=== PATIENT | female | born 1990 | race Caucasian/White ===

== ENCOUNTER 2018-07-06 04:59 | Emergency (ER) | payer MEDICARE ==
[~2018-07-06] VITALS: Ht 160 cm; Wt 66.2 kg
[~2018-07-06 04:59] MED LIST: AMOXICILLIN875 MG PO; BACLOFEN10 MG PO; DILAUDID2 MG PO; DOXYCYCLINE HY100 MG PO; DULCOLAX5 MG PO; FERROUS SULFAT325 MG PO; GABAPENTIN300 MG PO; GUAIATUSSIN AC10 ML PO; IBUPROFEN800 MG PO; KEFLEX500 MG PO; MULTI VITAMIN1 EACH PO; NORCO 5-325 TA1 EACH PO; PRENATAL TABLE1 EAC1 PO; PROAIR HFA8.5 GM IH; VICODIN 5-3001 EACH PO; ZITHROMAX250 MG PO; ZOFRAN ODT4 MG PO; ZOFRAN ODT4 MG SL; ZOLPIDEM TARTRAT5 MG PO
[2018-07-06] MEDS ORDERED: GABAPENTIN600 MG PO (05:06)
[2018-07-06] MEDS ORDERED: TRAZODONE HCL50 MG PO (05:06)
[2018-07-06] MEDS ORDERED: CYMBALTA60 MG PO (05:06)
[2018-07-06] MEDS ORDERED: BACLOFEN10 MG PO (05:07)
== END 2018-07-06 09:57 | disposition short-term general hospital (02) ==
LOC: ED 04:59
DX: D49.2 Neoplasm of unspecified behavior of bone, soft tissue, and skin (principal); G83.81 Brown-Sequard syndrome; Z88.2 Allergy status to sulfonamides; Z79.899 Other long term (current) drug therapy
CPT/HCPCS: 71045; 80053; 81001; 83605; 85025; 87040; 96374; 96375; 99284-25; J1170; J2060; J2405; J7030

== ENCOUNTER 2019-06-02 09:49 | Emergency (ER) | payer MEDICARE, OTHER ==
[~2019-06-02] VITALS: Ht 160 cm; Wt 79.4 kg
[~2019-06-02 09:49] MED LIST changes: +CYMBALTA60 MG PO; +GABAPENTIN600 MG PO; +TRAZODONE HCL50 MG PO
--- OUTSIDE RECORDS SUMMARY | 2019-06-02 09:52 | XMS ---
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 No recent Security Events currently on file CRITERIA MET - PDMP CARE PROVIDERS PRINCESS GRAVES [facility] Current MARIBELL PHONE: Unknown MARBIN ALEXANDRA Nurse Practitioner: Family Current PHONE: Unknown CHRISTIANO MARTINS Current PHONE: [phone] Kya Shay [facility] [employer] Swager Current PHONE: [phone] TIM PINTO Primary Care [facility] PHONE: Unknown PRINCESS GRAVES Primary Care Current MARIBELL GRAVES PHONE: [phone] MADHAVI MONTANEZ Primary Care Current PHONE: Unknown MELANI LEAHY [facility] Mental Health Provider 01/26/2016-10/16/2016 [facility] PHONE: Unknown Melani Leahy Mem Mental Health Provider 05/09/2017-Current [facility] PHONE: Unknown PRINCESS Primary Care Current MARIBELL-BELLI PHONE: [phone] [facility] Primary Care 01/24/2016-[facility] Andrew MARIELA MILLARD PHONE: [phone] MELANI LEAHY Primary Care 10/16/2016-Cassandra NEAL PHONE: [phone] [facility] Primary Care 01/24/2016-[facility] Andrew ROCHA PHONE: [phone] Care Guidelines exist for the following facilities: [facility] ( 01/13/2019 ) Adriana VISIT COUNT (12 MO.) 1 [facility] 2 JOAQUÍN Coats TOTAL 3 NOTE: Visits indicate total known visits. ED/UCC VISIT TRACKING (12 MO.) 06/02/2019 09:50 JO[place]QU[facility]N [place]line [place] TYPE: Emergency COMPLAINT: - VOMITING, HEADACHE 10/01/2018 12:35 [facility] TYPE: Emergency DIAGNOSES: 90699. MRI 75343. Neoplasm of unsp behavior of bone, soft tissue, and skin 37343. Oth symptoms and signs involving the musculoskeletal system 67144. Abnormal reflex 07/06/2018 05:00 [facility]QU[facility] [place] TYPE: Emergency COMPLAINT: - R LEG NUMBNESS/JOINT PAIN DIAGNOSES: - Neoplasm of unsp behavior of bone, soft tissue, and skin - Anesthesia of skin - Allergy status to sulfonamides status - Other intermission coordinator (current) drug therapy - Brown-Sequard syndrome INPATIENT VISIT TRACKING (12 MO.) 10/08/2018 12:39 Tim Newby [place] TYPE: Inpatient Rehab DIAGNOSES: - Neoplasm of unsp behavior of bone, soft tissue, and skin - Abnormal reflex - Oth symptoms and signs involving the musculoskeletal system - Oth problems related to psychosocial circumstances - Other disturbances of skin sensation - Malignant neoplasm of spinal cord - Neoplm of unsp behav of endo glands and oth prt nervous sys - Other reduced mobility 10/01/2018 12:35 [facility] TYPE: Neuro Surgery DIAGNOSES: 96228. Oth symptoms and signs involving the musculoskeletal system . Neoplasm of unsp behavior of bone, soft tissue, and skin . Abnormal reflex 07/12/2018 17:40 Tim Newby [facility] TYPE: Inpatient Rehab DIAGNOSES: - Malignant neoplasm of spinal cord - Oth problems related to psychosocial circumstances - Other reduced mobility - Neurogenic bowel, not elsewhere classified - Spinal Tumor - Other disturbances of skin sensation - Oth symptoms and signs involving the musculoskeletal system - Neoplm of unsp behav of endo glands and oth prt nervous sys - Dorsalgia, unspecified - Neuromuscular dysfunction of bladder, unspecified 07/06/2018 13:24 [facility] TYPE: Neuro Surgery DIAGNOSES: 25160. Thoracic Spine Tumor 71389. Neoplasm of unsp behavior of bone, soft tissue, and skin [id number]
[2019-06-02] MEDS ORDERED: PROMETHAZINE HC25 M1 PO (11:23)
== END 2019-06-02 11:32 | disposition home or self-care (01) ==
LOC: ED 09:49
DX: R11.2 Nausea with vomiting, unspecified (principal); Z88.2 Allergy status to sulfonamides; Z79.899 Other long term (current) drug therapy
CPT/HCPCS: 80053; 85025; 96361; 96374; 96375; 99284-25; J1200; J1885; J2765; J7030

== ENCOUNTER 2019-06-26 08:08 | Inpatient (IN) | payer MEDICARE, OTHER ==
[~2019-06-26] VITALS: Ht 160 cm; Wt 81.8 kg
--- OUTSIDE RECORDS SUMMARY | ~2019-06-26 | XMS | Encounter Summary ---
Demographics + + + | Address | [address] | | | [place] [address] | + + + | Home Phone | | + + + | Preferred Language | Unknown | + + + | Marital Status | Single | + + + | Yazidism Affiliation | NON | + + + | Race | White | + + + | Ethnic Group | Not or | + + + Author + + + | Author | [facility] | + + + | Organization | [facility] | + + + | Address [...] Team Providers + +------+ + | Care Icicle Machine Operator Name | Role | Phone | + +------+ + | Tiff Chapin | PCP | | + +------+ + Reason for Visit + + + | Reason | Comments | + + + | Social Work Notes | | + + + Encounter Details +--------+ + + + + | Date | Type | Department | Care Team | Description | +--------+ + + + + | 09/16/ | Documentati | SOCIAL WORK | Robert, | Social Work Notes | | 2015 | on | AM[address]UL[address]ORY [address] | [place] [address],[place] | | | | | [address] | [address] | | | | | Mailcode: CH[address]A | [facility] [place] | | | | | [place], [place] | [place], [place] | | | | | [address] | [address] | | | | | [phone] | | | +--------+ + + + + Social History + +-------+ +--------+------+ | Tobacco Use | Types | Packs/Day | Years | Date | | | | | Used | | + +-------+ +--------+------+ | Never Smoker | | | | | + +-------+ +--------+------+ + + +---------+ + | Alcohol Use [...] + + documented as of this encounter Plan of Treatment Not on filedocumented as of this encounter Visit Diagnoses Not on filedocumented in this encounter"
--- OUTSIDE RECORDS SUMMARY | ~2019-06-26 | XMS | Encounter Summary ---
Demographics + + + | Address | [address] | | | [place] [address] | + + + | Home Phone | | + + + | Preferred Language | Unknown | + + + | Marital Status | Single | + + + | Gnosticist Affiliation | NON | + + + | Race | White | + + + | Ethnic Group | Not or | + + + Author + + + | Author | [facility] | + + + | Organization | [facility] | + + + | Address | [...] Team Providers + +------+ + | Care Business Management Intern Name | Role | Phone | + [...] | +--------+ + + + + | 06/07/ | Documentati | SOCIAL WORK | Robert, | Social Work Notes | | 2014 | on | AM[address]UL[address]ORY [address] | [place] [address],[place] | | | | | [address] | [address] | | | | | Mailcode: CH6A | [facility] [place] | | | | | [place], [place] | [place], [place] | | | | | [address] | [address] | | | | | [phone] | | | +--------+ + + + [...]
--- OUTSIDE RECORDS SUMMARY | ~2019-06-26 | XMS | Encounter Summary ---
Demographics + + + | Address | [address] | | | [place] [address] | + + + | Home Phone | | + + + | Preferred Language | Unknown | + + + | Marital Status | Single | + + + | Sabianist Affiliation | NON | + + + | Race | White | + + + | Ethnic Group | Not or | + + + Author + + + | Author | [facility] | + + + | Organization | [facility] | + + + | Address | [...] Team Providers + +------+ + | Care Pipe Finishing Supervisor Name | Role | Phone | + +------+ + | No Pcp Per Patient | PCP | Unavailable | + +------+ + Encounter Details +--------+ + + + + | Date | Type | Department | Care Team | Description | +--------+ + + + + | 10/03/ | Procedure | [address] | | | | 2019 | Pass | [address] | | | | | | [place] [facility] | | | | | | Desk Located on the | | | | | | 9th floor | | | | | | [place], [place] | | | | | | [address] | | | +--------+ + + + [...] + + documented as of this encounter Functional Status + + + + | Functional Status | Response | Date of Assessment | + + + + | Because of a physical, mental, or emotional | No | 10/03/2018 | | condition, do you have serious difficulty | | | | doing errands alone such as visiting the | | | | doctor? | | | + + + + + + + + | Cognitive Status | Response | Date of Assessment | + + + + | Because of a physical, mental, or emotional | No | 10/03/2018 | | condition, do you have serious difficulty | | | | concentrating, remembering, or making | | | | decisions? (5 years old or older) | | | + + + + documented as of this encounter Plan of Treatment Not on filedocumented as of this encounter Visit Diagnoses Not on filedocumented in this encounter"
--- OUTSIDE RECORDS SUMMARY | ~2019-06-26 | XMS | Encounter Summary ---
Demographics + + + | Address | [address] | | | [place] [address] | + + + | Home Phone | | + + + | Preferred Language | Unknown | + + + | Marital Status | Single | + + + | Sikh Affiliation | NON | + + + | Race | White | + + + | Ethnic Group | Not or | + + + Author + + + | Author | [facility] | + + + | Organization | [facility] | + + + | Address [...] Team Providers + +------+ + | Care Agitator Operator Name | Role | Phone | + +------+ + | Tiff Chapin | PCP | | + +------+ + Reason for Visit + + + | Reason | Comments | + + + | Medical Records | | | Review | | + + + Encounter Details +--------+ + + + + | Date | Type | Department | Care Team | Description | +--------+ + + + + | 07/15/ | Telephone | Neurosurgery at | Raegan Doss, | Medical Records | | 2015 | | [facility] [address] | [place] [address] | Review | | | | [place] Mailcode: CH[address]N | [place], [place] | | | | | [facility] | [address] | | | | | and [facility], | [phone] | | | | | [facility] | | | | | | Floor [place], [place] | | | | | | [address] | | | | | | [phone] | | | +--------+ + + + [...]
--- OUTSIDE RECORDS SUMMARY | ~2019-06-26 | XMS | Encounter Summary ---
Demographics + + + | Address | [address] | | | [place] [address] | + + + | Home Phone | | + + + | Preferred Language | Unknown | + + + | Marital Status | Single | + + + | Episcopalian Affiliation | NON | + + + | Race | White | + + + | Ethnic Group | Not or | + + + Author + + + | Author | [facility] | + + + | Organization | [facility] | + + + | Address | [...] Team Providers + +------+ + | Care Analysis Analyst Name | Role | Phone | + +------+ + | Tiff ChapinP | PCP | | + +------+ + Reason for Referral Occupational Therapy (Routine) +--------+--------+ + + + + | Status | Reason | Specialty | Diagnoses / | Referred By | Referred To | | | | | Procedures | Contact | Contact | +--------+--------+ + + + + | Closed | | | Diagnoses | Romario, | | | | | | Spinal cord | Raegan Nieves | | | | | | tumor | [address] | | | | | | Procedures | [facility]IS EDUARDO Tadeo | | | | | | OCCUPATIONAL | [facility], | | | | | | THERAPY | [place] | | | | | | REFERRAL | [address] | | | | | | | Phone: | | | | | | | [phone] | | | | | | | Fax: | | | | | | | [phone] | | +--------+--------+ + + + + Physical Therapy (Routine) +--------+--------+ + + + + | Status | Reason | Specialty | Diagnoses / | Referred By | Referred To | | | | | Procedures | Contact | Contact | +--------+--------+ + + + + | Closed | | | Diagnoses | Romario, | | | | | | Spinal cord | Raegan Nieves, | | | | | | tumor | [address] | | | | | | Procedures | LUIS EDUARDO Tadeo | | | | | | PHYSICAL | [place], | | | | | | THERAPY | [place] | | | | | | REFERRAL | [address] | | | | | | | Phone: | | | | | | | [phone] | | | | | | | Fax: | | | | | | | [phone] | | +--------+--------+ + + + + Reason for Visit + + + | Reason | Comments | + + + | Incontinence | | + + + | Paralysis | | + + + AUTH/CERT +--------+--------+ + + + + | Status | Reason | Specialty | Diagnoses / | Referred By | Referred To | | | | | Procedures | Contact | Contact | +--------+--------+ + + + + | | | | | | | +--------+--------+ + + + + Encounter Details +--------+ + + + + | Date | Type | Department | Care Team | Description | +--------+ + + + + | 09/08/ | Hospital | [facility] [address] | Rajinder Luis MD | | | 2016 - | Encounter | [address] | [address] | | | | | [id number] [facility] | [place], [place] | | | 09/14/ | | [facility], | [address] | | | 2015 | | [place] [address] | [phone] | | | | | [phone] | | | +--------+ + + + [...] + + + | Blood Pressure | 118/61 | 09/15/2015 8:00 AM | | | | | PST | | + + + + + | Pulse | 39 | 09/15/2015 8:00 AM | | | | | PST | | + + + + + | Temperature | 36.8 C (98.2 F) | 09/15/2015 8:00 AM | | | | | PST | | + + + + + | Respiratory Rate | 16 | 09/15/2015 3:04 AM | | | | | PST | | + + + + + | Oxygen Saturation | 97% | 09/15/2015 8:00 AM | | | | | PST | | + + + + + | Inhaled Oxygen | - | - | | | Concentration | | | | + + + + + | Weight | 85.6 kg (188 lb 11.4 | 09/11/2015 12:23 PM | | | | oz) | PST | | + + + + + | Height | 160 cm (5' 3") | 09/11/2015 12:23 PM | | | | | PST | | + + + + + | Body Mass Index | 33.43 | 09/11/2015 12:23 PM | | | | | PST | | + + + + + documented in this encounter Discharge Summaries Raegan Doss PA-C - 09/15/2015 11:40 AM PSTFormatting of this note might be different f rom the original. NEUROSURGERY DISCHARGE SUMMARY: Patient: Matt Fagan Admission Date: 09/09/2015 Discharge Date: 09/15/2015 Attending Physician: Rajinder Luis MD PCP: PATRIC Todd Service: 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 Additional Diagnoses: Acute diaphoresis Urinary Incontinence Past Medical History: Other and unspecified symptoms and signs invol* Procedures 09/09/15 1. Right T9, T10 hemilaminectomies for resection of intramedullary spinal cord tumor. 2. Use of high-powered intraoperative microscope. 3. Intraoperative neuromonitoring using motor-evoked potentials. Brief Hospital Course Matt Fagan is a 24-year-old female, with a history of thoracic ganglioneurocytoma (W HO grade 1), or potentially a pendemoma-like tumor, who presented in transfer from an [facility] hospital after she woke up with lower extremity weakness and urinary incontinence. 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 Luis here at [facility]. She has residual right lower extremity w eakness, but was gradually improving with her physical exam. However, given her new acute di paresis, she underwent imaging at an outside hospital which demonstrated tumor progression a nd potential syrinx. Given her clinical history and imaging findings, she was indicated for emergent laminectomy and decompression. Matt Fagan was admitted urgently on 09/09/2015 for a Right T9, T10 hemilaminectomies f or resection of the intramedullary spinal cord tumor . The inpatient stay related to this p rocedure(s) took an uncomplicated perioperative course and the patient was followed closely by the attending providers, resident providers, and medical/nursing staff. Post operatively, the patient was admitted to the [facility] for ongoing convalescent care. She regained full stren gth in her bilateral legs except for some slight weakness in her R hip flexor. She unfortuna tely lost further sensation from T8 down and most proprioception. She was able to tell when she needed to urinate, but did require straight cathing. Pathology resulted as Re-current/re sidual low-grade glioneuronal neoplasm morphologically similar to the previous resection paul or. No high grade features were demonstrated. Surgical pain was managed with medication. Th e patient made appropriate gains toward activity and functional goals while an inpatient. T he patient worked with our rehabilitation team with recommendation for [facility] upon discharge. W kragi on the hospital floor, the patient tolerated oral intake sufficient to maintain nutriti on and hydration. The surgical wound remained clean, dry, and intact without signs concernin g for infection. The patient was felt appropriate for discharge to [facility] ([facility]) on 09/15/2015, a nd the patient and/or family members agree with this course of action. Diet Regular Regular diet- There are no restrictions to your diet. You may eat or drink whatever you pr efer, though healthy food choices are recommended. Activity No activity restrictions Discharge POLST completed No Condition on Discharge Good Destination: Destination: Inpatient Rehab - [facility] Discharge Follow Up - Facility MD to follow Facility MD to follow patient. FOLLOW-UP You have an appointment with Raegan Doss PA-C at 1:30pm on 10/20/15. This will be on the 8t h floor at the [facility] on the [facility] located at [address], [place] [address]. Please call [phone] if you have any questions or concerns befor e your appointment time. PCP:PATRIC Todd When: Please follow-up with your primary care physician as soon a s possible to review new medications and recent interventions Call: Please call and ask for the Neurosurgery Resident on-call if you have any of the following: - Difficulty breathing or unusual shortness of breath - Excessive bleeding, drainage at the operative site - Fevers, chills, increased pain that is not relieved by pain medications - Persistent nausea or vomiting - Severe headaches, dizziness, or visual changes Current Discharge Medication List START taking these medications Details dexamethasone 2 mg oral tablet Starting at 2200hrs on 09/14: Taking 2mg q8h x 3 doses Then take 2mg q12h x 2 doses Then take 2mg x 1 dose on 09/17 at 0900hrs then stop. Qty: 6 tablet, Refills: 0 LORazepam 0.5 mg oral tablet Take 1 tablet by mouth every six hours as needed for anxiety. Indications: ANXIETY Qty: 20 tablet, Refills: 0 scopolamine 1.5 mg (1 mg over 3 days) transdermal patch 3 day Apply 1 patch to skin every s eventy-two hours as needed (nausea). Qty: 1 each, Refills: 0 CONTINUE these medications which have CHANGED or have new prescriptions Details enoxaparin 40 mg/0.4 mL subcutaneous syringe Inject 0.4 mL under the skin (SUBC) once daily in the evening. Qty: 1 mL, Refills: 0 gabapentin 300 mg oral capsule Take 3 capsules by mouth three times daily. Indications: SHIRA ROPATHIC PAIN Qty: 1 capsule, Refills: 0 HYDROmorphone 2 mg oral tablet Take 1-4 tablets by mouth every three hours as needed for mo derate pain. Qty: 120 tablet, Refills: 0 CONTINUE these medications which have NOT CHANGED Details acetaminophen 325 mg oral tablet Take 1-2 tablets by mouth every six hours as needed (pain or fever greater than 38.5 degrees C). baclofen 10 mg oral tablet Take 10mg in the AM, 10mg in the afternoon and 10mg in the eveni ng then 15mg at bedtime. Indications: MUSCLE SPASTICITY OF SPINAL ORIGIN Qty: 135 tablet, Refills: 0 bisacodyl 10 mg rectal suppository Insert 1 suppository rectally once daily as needed for c onstipation (for no BM in past 2 days). Qty: 20 suppository, Refills: 0 bisacodyl EC 5 mg oral tablet,delayed release (DR/EC) Take 1 tablet by mouth once daily. Qty: 60 tablet, Refills: 0 diphenhydrAMINE 25 mg oral capsule Take 1 capsule by mouth every six hours as needed. Qty: 60 capsule, Refills: 0 magnesium citrate oral solution Take 296 mL by mouth once daily as needed. Qty: 296 mL, Refills: 0 multivitamin oral capsule Take 1 capsule by mouth once daily. polyethylene glycol 17 gram/dose oral powder Take 17 g by mouth once daily as needed (if no bowel movement in >2 days). Qty: 119 g, Refills: 1 senna-docusate 8.6-50 mg oral tablet Take 2 tablets by mouth twice daily as needed (for no bowel movement in >2 days). Qty: 15 tablet, Refills: 1 zolpidem 5 mg oral tablet Take 1 tablet by mouth once daily at bedtime as needed. Qty: 20 tablet, Refills: 0 STOP taking these medications diazepam 5 mg oral tablet Comments: Reason for Stopping: hydrOXYzine pamoate 25 mg oral capsule Comments: Reason for Stopping: Wound Care: 1) Keep your incision site clean and dry. 2) It is ok for you to shower and get your surgical incision wet, but do not submerge surg ical incision in hot tub or swimming pool. 3) Please avoid placing creams or ointments directly on the incision even though it may it ch. 4) Your sutures will need to be removed at 2 weeks post-op, on 09/22. Special Instructions/Tests: Neurosurgery will work to arrange a visit with our Physical The rapists specially trained in SCI rehab on the same day as your appointment with Raegan Doss PA-C. Condition On Discharge: Good Vital Signs at discharge as appropriate: BP: 118/61 mmHg (09/15/15 0800) Pulse: 39 (09/15/15 0800) Resp: 16 (0 09/15/15 0304) Weight: 85.6 kg (188 lb 11.4 oz) (09/11/15 1223) Discharge Patient To: [facility] Does patient have a planned readmission: No Discharge Summary Completed?: Yes. 09/15/2015 Discharging Provider: Raegan Doss PA-C Date Completed: 09/15/2015 Time Completed: 11:40 AM Discharging Attending: Rajinder Luis MD [facility] [address] [address] [address] documented in this encounter Progress Notes Raegan Doss PA-C - 09/15/2015 7:47 AM PSTFormatting of this note might be different f rom the original. Neurosurgery Progress Note Hospital Day:6 Author; Raegan Doss PA-C Attending Physician: Rajinder Luis MD Interval Hx: -Pt reports needing to be straight cathed (she can feel a full bladder but is not able to i ndependently void, despite trying every time before straight cathing), but is requesting RN to do this as she has not self cathed in 2 months. -Pt states she did not sleep well last night and has been awake since 4am. She feels anxiou s but thinks this may be related to her increased level of pain. -Pt request re-starting her home Ambien now that she is not on IV pain medications. Last Vitals: BP 126/58 | Pulse 43 | Temp (Src) 36.8 C (98.2 F) (Oral) | RR 16 | Ht 1.6 m (5' 3") | Wt 85.6 kg (188 lb 11.4 oz) | SpO2 96% | BMI 33.44 kg/(m^2) O2 Delivery Device: None (room air) (09/15/15 030) 24 Hour Vital Min/Max: Systolic (24hrs), Av mmHg, Min:104 mmHg, Max:126 mmHgDiastolic (24hrs), Av mmHg, M in:54 mmHg, Max:69 mmHgPulse Min: 41 Max: 46 Temp Min: 36.4 C (97.5 F) Max: 36.8 C (98.2 F) Resp Min: 16 Max: 16 SpO2 Min: 95 % Max: 100 % Intake/Output Summary (Last 24 hours) at 09/15/15 0747 Last data filed at 09/15/15 0304 Gross per 24 hour Intake 1182 ml Output 2950 ml Net -1768 ml Exam: Alert, oriented x3. Speech clear, fluent. Gaze conjugate. Face symmetric. Thoracic incision: flat, dry, no erythema, intact. Wale present. Sensation: LT sensation intact intact above T8. Has sensory present below this level but th is is patchy. Proprioception intact on L great toe. Not intact to R great toe. Motor: Delt Tri Bi WE DI HF KE APF ADF Left 5 5 5 5 5 5 5 5 5 Right 5 5 5 5 5 4+ 5 5 5 Labs: CBC with diff last 72 hours (or 3 results) Recent Labs 09/14/15 0750 09/15/15 0645 WBC 15.21* 17.28* HB 12.3 12.6 HCT 37.9 39.3 PLT 362 368 Chemistries: Last 72 Hours (or 3 results): Recent Labs 09/13/15 1846 09/13/15 2324 09/14/15 1028 GLU 102* 136* 104* [id number] Current Medications: acetaminophen (TYLENOL) tablet 650 mg, 650 mg, oral, Q6H baclofen (LIORESAL) tablet 10 mg, 10 mg, oral, TID baclofen (LIORESAL) tablet 15 mg, 15 mg, oral, HS bisacodyl (DULCOLAX) suppository 10 mg, 10 mg, rectal, DAILY PRN bisacodyl EC (DULCOLAX) tablet 5 mg, 5 mg, oral, DAILY [COMPLETED] dexamethasone (DECADRON) tablet 4 mg, 4 mg, oral, Q6H FOLLOWED BY dexametha sone (DECADRON) tablet 4 mg, 4 mg, oral, Q8H FOLLOWED BY dexamethasone (DECADRON) tablet 2 mg, 2 mg, oral, Q8H FOLLOWED BY [START ON 09/16/2015] dexamethasone (DECADRON) tablet 2 mg, 2 mg, oral, Q12H FOLLOWED BY [START ON 09/18/2015] dexamethasone (DECADRON) tablet 2 mg, 2 mg, oral, DAILY diphenhydrAMINE (BENADRYL) capsule 25 mg, 25 mg, oral, Q4H PRN enoxaparin (LOVENOX) injection 40 mg, 40 mg, subcutaneous, QPM gabapentin (NEURONTIN) capsule 900 mg, 900 mg, oral, TID HYDROmorphone (DILAUDID) tablet 2-8 mg, 2-8 mg, oral, Q3H PRN LORazepam (ATIVAN) tablet 0.5 mg, 0.5 mg, oral, Q6H PRN magnesium citrate liquid 296 mL, 296 mL, oral, DAILY PRN multivitamin (THERA VITAMIN) 1 tablet, 1 tablet, oral, DAILY NaCl 0.9%-KCl 20 mEq/L IV infusion, , intravenous, CONTINUOUS ondansetron (ZOFRAN) injection 4 mg, 4 mg, intravenous, Q12H PRN polyethylene glycol (MIRALAX) powder 34 g, 34 g, oral, BID scopolamine (TRANSDERM-SCOPE) 1.5 mg (1 mg over 3 days) 1 patch, 1 patch, transdermal, Q72H PRN senna-docusate (SENOKOT S) 8.6-50 mg 2 tablet, 2 tablet, oral, BID Impression: 24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 Improvement in BLE strength post-op. Wound healing well. Plan: Neuro: Pain control with APAP, dilaudid PO. Home gabapentin increased from 600mg TID to 900 mg TID on 09/13. Cont home Baclofen 10mg TID and 15mg qHS for muscle spasms. Fast Dex taper to off by 09/16. Lorazepam 0.5mg q6h prn anxiety. Will re-start home Ambien 5mg qHS for sleep. Derm: Benadryl prn itching. Routine wound care. Okay to shower/shampoo daily. [place] to be removed at 2 weeks post-op. CV: BP stable, pt continues with low but stable bradycardia in the 40s; pt continues to be asymptomatic. Will continue to monitor. Pulm: IS, cough/deep breath GI/diet: Regular diet. Scopolamine and ondansetron prn nausea. LBM prior to arrival. Mirala x BID, Senokot S BID, bisacodyl 5mg daily. Mag Citrate available prn. : Daniels removed 09/12. Straight cath if pt is unable to void, BS q4h Musculoskeletal/skin: Routine decubitus ulcer prevention. Appreciate PT/OT involvement. Endo: ISS stopped for controlled CBGs. ID/Heme: Afebrile. Leukocytosis increased to 17 today. Will check a UA as patient reported having one at the OSH prior to transfer. DVT ppx: SCDs while in bed. Lovenox 40mg qHS for DVT ppx. Dispo: Likely DC to [facility] by tomorrow, 09/15, once they have bed availability. Raegan Doss PA-C [facility] [address] [address] [address] dams, PHILIPPE Mena - 09/14/2015 8:57 AM PST Neurosurgery Progress Note Hospital Day:5 Author; Raegan Doss PA-C Attending Physician: Rajinder Luis MD Interval Hx: -Daniels removed yesterday evening. Pt has been unable to independently void since, has been straight cathed instead. Pt is able to feel when her bladder is full. -No BM since admission -Pt reports increased nerve pain in her legs. This has been increasing over the last 2 yves hs, she is requesting to increase her gabapentin. She is currently taking gabapentin 600mg T ID. Last Vitals: BP 107/61 | Pulse 39 | Temp (Src) 36.4 C (97.5 F) (Oral) | RR 16 | Ht 1.6 m (5' 3") | Wt 85.6 kg (188 lb 11.4 oz) | SpO2 96% | BMI 33.44 kg/(m^2) O2 Delivery Device: None (room air) (09/14/15 0330) 24 Hour Vital Min/Max: Systolic (24hrs), Av mmHg, Min:104 mmHg, Max:115 mmHgDiastolic (24hrs), Av mmHg, M in:52 mmHg, Max:62 mmHgPulse Min: 39 Max: 48 Temp Min: 36.4 C (97.5 F) Max: 36.6 C (97.9 F) Resp Min: 16 Max: 16 SpO2 Min: 95 % Max: 97 % Intake/Output Summary (Last 24 hours) at 09/14/15 0857 Last data filed at 09/14/15 0602 Gross per 24 hour Intake 3175 ml Output 1570 ml Net 1605 ml Exam: Alert, oriented x3. Speech clear, fluent. Gaze conjugate. Face symmetric. Thoracic incision: edges approximated well, no erythema, dry, intact. [place] in place. Sensation: LT sensation intact above T8 level. Disrupted below this level, however is able to tell when I am touching bilateral shins and good location of sensation on R foot. Poor se nsation (unable to tell where I am touching) on her L foot. Motor: Tri Bi DI HF KE KF APF ADF Left 5 5 5 5 5 5 5 5 Right 5 5 5 4 5 5 5 5 Proprioception intact on L great toe. Not intact on R great toe. Labs: CBC with diff last 72 hours (or 3 results) Recent Labs 09/14/15 0750 WBC 15.21* HB 12.3 HCT 37.9 PLT 362 Chemistries: Last 72 Hours (or 3 results): Recent Labs 09/13/15 1329 09/13/15 1846 09/13/15 2324 GLU 128* 102* 136* CULT, URINE SCREEN Date Value Ref Range Status 07/12/2015 Negative Negative Final [id number] Current Medications: acetaminophen (TYLENOL) tablet 650 mg, 650 mg, oral, Q6H baclofen (LIORESAL) tablet 10 mg, 10 mg, oral, TID baclofen (LIORESAL) tablet 15 mg, 15 mg, oral, HS bisacodyl (DULCOLAX) suppository 10 mg, 10 mg, rectal, DAILY PRN bisacodyl EC (DULCOLAX) tablet 5 mg, 5 mg, oral, DAILY dexamethasone (DECADRON) tablet 4 mg, 4 mg, oral, Q6H FOLLOWED BY dexamethasone (DECADR ON) tablet 4 mg, 4 mg, oral, Q8H FOLLOWED BY [START ON 09/15/2015] dexamethasone (DECADRON ) tablet 2 mg, 2 mg, oral, Q8H FOLLOWED BY [START ON 09/16/2015] dexamethasone (DECADRON) tablet 2 mg, 2 mg, oral, Q12H FOLLOWED BY [START ON 09/18/2015] dexamethasone (DECADRON) tablet 2 mg, 2 mg, oral, DAILY dextrose 50 % in water IV 25 mL, 25 mL, intravenous, PRN diphenhydrAMINE (BENADRYL) capsule 25 mg, 25 mg, oral, Q4H PRN enoxaparin (LOVENOX) injection 40 mg, 40 mg, subcutaneous, QPM gabapentin (NEURONTIN) capsule 300 mg, 300 mg, oral, ONCE gabapentin (NEURONTIN) capsule 900 mg, 900 mg, oral, TID glucagon (GLUCAGEN) injection 1 mg, 1 mg, intramuscular, PRN glucose chewable tablet 16 g, 16 g, oral, PRN HYDROmorphone (DILAUDID) injection 0.5-2 mg, 0.5-2 mg, intravenous, Q2H PRN HYDROmorphone (DILAUDID) tablet 2-8 mg, 2-8 mg, oral, Q3H PRN insulin lispro (HUMALOG) injection, , subcutaneous, QID LORazepam (ATIVAN) tablet 0.5 mg, 0.5 mg, oral, Q6H PRN multivitamin (THERA VITAMIN) 1 tablet, 1 tablet, oral, DAILY NaCl 0.9%-KCl 20 mEq/L IV infusion, , intravenous, CONTINUOUS ondansetron (ZOFRAN) injection 4 mg, 4 mg, intravenous, Q12H PRN polyethylene glycol (MIRALAX) powder 34 g, 34 g, oral, BID scopolamine (TRANSDERM-SCOPE) 1.5 mg (1 mg over 3 days) 1 patch, 1 patch, transdermal, Q72H PRN senna-docusate (SENOKOT S) 8.6-50 mg 2 tablet, 2 tablet, oral, BID Impression: 24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 Improvement in BLE strength post-op. Plan: Neuro: Pain control with APAP, dilaudid PO. Will increase home gabapentin from 600mg TID to 900mg TID. Cont home Baclofen 10mg TID and 15mg qHS for muscle spasms. Fast Dex taper to of f by 09/16. Lorazepam 0.5mg q6h prn anxiety. Derm: Benadryl prn itching. Routine wound care. Okay to shower/shampoo daily. [place] to be removed at 2 weeks post-op. CV: BP stable, however pt with bradycardia (24hr HR min 41), however pt is asymptomatic. Wi ll continue to monitor. Pulm: IS, cough/deep breath GI/diet: Regular diet. Scopolamine and ondansetron prn nausea. LBM prior to arrival. [place] x BID, Senokot S BID, bisacodyl 5mg daily. Mag Citrate available prn. : Daniels removed 09/12. Straight cath if pt is unable to void, BS q4h Musculoskeletal/skin: Routine decubitus ulcer prevention. Appreciate PT/OT involvement. Endo: CBGs remain reasonable. 0U ISS used last 24 hours. Mild hyperglycemia likely 2/2 ster oid effect. Will plan to stop ISS at [place]. ID/Heme: Afebrile. Leukocytosis at 15 today - possibly d/t steroids. Will cont to follow an d trend. DVT ppx: SCDs while in bed. Lovenox 40mg qHS for DVT ppx. Dispo: Appreciate CM involvement - application pending for ASSUMPTION. Raegan Doss PA-C [facility] [address] [address] [address] [address] [facility] - 09/13/2015 10:26 AM PST Neurosurgery Progress Note Hospital Day:4 Author; Raegan Doss PA-C Attending Physician: Rajinder Luis MD Interval Hx: -No acute events overnight. Pt reports she feels more anxious with this hospital admission because she has many questions regarding her future course of care and is disheartened by th is recent set-back. Last Vitals: BP 102/60 | Pulse 35 | Temp (Src) 36.5 C (97.7 F) (Axillary) | RR 16 | Ht 1.6 m (5' 3") | Wt 85.6 kg (188 lb 11.4 oz) | SpO2 96% | BMI 33.44 kg/(m^2) O2 Delivery Lisha ce: None (room air) (09/13/15 0315) 24 Hour Vital Min/Max: Systolic (24hrs), Av mmHg, Min:102 mmHg, Max:126 mmHgDiastolic (24hrs), Av mmHg, M in:59 mmHg, Max:71 mmHgPulse Min: 35 Max: 46 Temp Min: 36.4 C (97.5 F) Max: 36.7 C (98.1 F) Resp Min: 16 Max: 16 SpO2 Min: 94 % Max: 96 % Intake/Output Summary (Last 24 hours) at 09/13/15 1027 Last data filed at 09/13/15 0856 Gross per 24 hour Intake 1090 ml Output 2350 ml Net -1260 ml Exam: Alert, oriented x3. Speech clear, fluent. Gaze conjugate. Face symmetric. Thoracic incision: flat, no erythema, dry, no fluctuance or swelling. Intact. Wale in pl [place]. Sensation: LT sensation intact above T8, out below. Motor: Delt Tri Bi DI HF KE APF ADF Left 5 5 5 5 5 5 5 5 Right 5 5 5 5 4+ 5 [address], draining clear yellow urine. Labs: [id number] Current Medications: acetaminophen (TYLENOL) tablet 650 mg, 650 mg, oral, Q6H baclofen (LIORESAL) tablet 10 mg, 10 mg, oral, TID baclofen (LIORESAL) tablet 15 mg, 15 mg, oral, HS bisacodyl (DULCOLAX) suppository 10 mg, 10 mg, rectal, DAILY PRN dexamethasone (DECADRON) tablet 4 mg, 4 mg, oral, Q6H dextrose 50 % in water IV 25 mL, 25 mL, intravenous, PRN diphenhydrAMINE (BENADRYL) capsule 25 mg, 25 mg, oral, Q4H PRN enoxaparin (LOVENOX) injection 40 mg, 40 mg, subcutaneous, QPM gabapentin (NEURONTIN) capsule 600 mg, 600 mg, oral, TID glucagon (GLUCAGEN) injection 1 mg, 1 mg, intramuscular, PRN glucose chewable tablet 16 g, 16 g, oral, PRN HYDROmorphone (DILAUDID) injection 0.5-2 mg, 0.5-2 mg, intravenous, Q2H PRN HYDROmorphone (DILAUDID) tablet 2-8 mg, 2-8 mg, oral, Q3H PRN insulin lispro (HUMALOG) injection, , subcutaneous, QID LORazepam (ATIVAN) tablet 0.5 mg, 0.5 mg, oral, Q6H PRN multivitamin (THERA VITAMIN) 1 tablet, 1 tablet, oral, DAILY NaCl 0.9%-KCl 20 mEq/L IV infusion, , intravenous, CONTINUOUS ondansetron (ZOFRAN) injection 4 mg, 4 mg, intravenous, Q12H PRN polyethylene glycol (MIRALAX) powder 34 g, 34 g, oral, TID PRN scopolamine (TRANSDERM-SCOPE) 1.5 mg (1 mg over 3 days) 1 patch, 1 patch, transdermal, Q72H PRN senna-docusate (SENOKOT S) 8.6-50 mg 1 tablet, 1 tablet, oral, BID Impression: 24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 Improvement in BLE strength post-op. Plan: Neuro: Pain control with APAP, dilaudid PO and IV for breakthrough. Cont home gabapentin 60 0mg TID and Baclofen 10mg TID and 15mg qHS for muscle spasms. Fast Dex taper to off by 09/16. Lorazepam 0.5mg q6h prn anxiety. Derm: Benadryl prn itching. Routine wound care. Okay to shower/shampoo daily. [place] to be removed at 2 weeks post-op. CV: BP stable, however pt with bradycardia (24hr HR min 35), however pt is asymptomatic. Wi ll continue to monitor. Pulm: IS, cough/deep breath GI/diet: Regular diet. Scopolamine and ondansetron prn nausea. LBM prior to arrival. Will s chedule Mag Citrate x1 today and schedule Miralax BID and Senokot S BID. : Daniels in place. Will remove once patient is able to ambulate to [facility]. Musculoskeletal/skin: Routine decubitus ulcer prevention. Appreciate PT/OT involvement. Endo: CBGs reasonable. 9U ISS used last 24 hours. Mild hyperglycemia likely 2/2 steroid eff ect. Will plan to stop ISS at [place]. ID/Heme: Afebrile. Will check CBC tomorrow AM. DVT ppx: SCDs while in bed. Lovenox 40mg qHS for DVT ppx. Dispo: Appreciate CM involvement - application pending for ASSUMPTION. Raegan Doss PA-C [facility] [address] [facility] [address] Cesar Cox MD - 12/2015 11:40 AM PST NEUROSURGERY PROGRESS NOTE Hospital Day #: 3 Attending: Rajinder Luis MD Interval Events: - MRI done yesterday - Transferred out of ICU yesterday - Patient has regained 5/5 strength in all extremities, still with numbness - Patient very concerned that her bracelet may have been lost perioperatively, we are curre ntly searching for it. Objective: Last Vitals: BP 113/59 | Pulse 45 | Temp (Src) 36.4 C (97.5 F) (Axillary) | RR 17 | Ht 1.6 m (5' 3") | Wt 85.6 kg (188 lb 11.4 oz) | SpO2 96% | BMI 33.44 kg/(m^2) 24 Hour Vital Min/Max: Systolic (24hrs), Av mmHg, Min:113 mmHg, Max:154 mmHg Diastolic (24hrs), Av mmHg, Min:59 mmHg, Max:97 mmHg Pulse Min: 45 Max: 90 Temp Min: 36.4 C (97.5 F) Max: 36.9 C (98.4 F) Resp Min: 16 Max: 17 SpO2 Min: 92 % Max: 97 % Intake/Output Summary (Last 24 hours) at 09/12/15 1140 Last data filed at 09/12/15 1100 Gross per 24 hour Intake 1515 ml Output 2450 ml Net -935 ml Physical Exam: Awake, alert, oriented to self, time, place, situation Following commands briskly PERRL EOMI Face symmetric Tongue midline Strength: No pronator drift RUE: 5/5 HG/B/T LUE: 5/5 HG/B/T RLE: 5/5 HF/KE/DF/PF LLE 5/5 HF/KE/DF/PF No sensation below approx T7-8, R worse than L Back incision c/d/i. No surrounding erythema, swelling or drainage. Labs: Lab Results Component Value Date/Time SODIUM, PLASMA (LAB) 141 09/10/2015 03:29 AM POTASSIUM, PLASMA (LAB) 4.0 09/10/2015 03:29 AM CREATININE PLASMA (LAB) 0.62 09/10/2015 03:29 AM HEMATOCRIT 37.0 09/10/2015 03:29 AM WHITE CELL COUNT 9.12 09/10/2015 03:29 AM PLATELET COUNT 333 09/10/2015 03:29 AM ] CULT, URINE SCREEN (no units) Date Value 07/12/2015 Negative Current Facility-Administered Medications Medication Dose Route Frequency acetaminophen (TYLENOL) tablet 650 mg 650 mg oral Q6H baclofen (LIORESAL) tablet 10 mg 10 mg oral TID baclofen (LIORESAL) tablet 15 mg 15 mg oral HS bisacodyl (DULCOLAX) suppository 10 mg 10 mg rectal DAILY PRN dexamethasone (DECADRON) tablet 4 mg 4 mg oral Q6H dextrose 50 % in water IV 25 mL 25 mL intravenous PRN diphenhydrAMINE (BENADRYL) capsule 25 mg 25 mg oral Q4H PRN enoxaparin (LOVENOX) injection 40 mg 40 mg subcutaneous QPM gabapentin (NEURONTIN) capsule 600 mg 600 mg oral TID glucagon (GLUCAGEN) injection 1 mg 1 mg intramuscular PRN glucose chewable tablet 16 g 16 g oral PRN HYDROmorphone (DILAUDID) injection 0.5-2 mg 0.5-2 mg intravenous Q2H PRN HYDROmorphone (DILAUDID) tablet 2-8 mg 2-8 mg oral Q3H PRN insulin lispro (HUMALOG) injection subcutaneous QID LORazepam (ATIVAN) tablet 0.5 mg 0.5 mg oral Q6H PRN multivitamin (THERA VITAMIN) 1 tablet 1 tablet oral DAILY NaCl 0.9%-KCl 20 mEq/L IV infusion intravenous CONTINUOUS ondansetron (ZOFRAN) injection 4 mg 4 mg intravenous Q12H PRN polyethylene glycol (MIRALAX) powder 34 g 34 g oral TID PRN scopolamine (TRANSDERM-SCOPE) 1.5 mg (1 mg over 3 days) 1 patch 1 patch transdermal Q7 2H PRN senna-docusate (SENOKOT S) 8.6-50 mg 1 tablet 1 tablet oral BID zolpidem (AMBIEN) tablet 5 mg 5 mg oral ONCE Imaging: No results found for this basename: cthead ASSESSMENT: Matt Fagan is a 24 y.o. 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 Sats wnl on RA. GI: Diet: regular; bowel regimen / Renal: 24-hour I/O goal: euvolemic; Daniels catheter, will attempt to wean today. Rula ctrolytes wnl. ID/HO: AF, WBC 9 downtrending Endocrine: CBG within normal limits without insulin Musculoskeletal / Skin: No active issues, Routine decubitus ulcer prevention. PT/OT DVT prophylaxis: SCDs while in bed, prophylactic lovenox Disposition: pending clinical course -- will likely need IPR vs SNF currently requiring 2 p erson assist to stand Cesar Odonnell MD Neurosurgery PGY1 Lesly Flynn MD - 09/10 10:18 AM PST . Neuroscience Intensive Care Unit Attending Progress Note Attending Pager #[phone] ICU Admission Reason Most Recent Value ICU Admission reason Pressed to MAP 80 filed at 09/10/2015 0124 Documentation Date 09/10/15 012 Day of Procedure 09/10/15 Neurosurgical Procedures Neurosurgical Neurosurgical Procedures Other Hospital admission dx: INCONTINENCE PARALYSIS 1 Days in ICU 2 Days in Hospital HPI 24 y/o female with prior T6 spinal cord tumor resection presented with new onset lower ext remity weakness today. She was urgently taken to the OR for resection of recurrent spinal co rd mass and syrinx . Her history is significant for prior resection of spinal cord mass in 07/2014 at the T6 level. At her baseline she is able to walk, has weak right lower extremity, left lacks pain, temperature, sensation around her umbilicus to her toes. Medical Decision Making 24 yo woman with known T6 spinal cord lesion - ganglioneuroma, now st/p re-resection. Wean ed off pressors overnight. MRI spine obtained. Assessment and plan: Follow up official report on spine MRI. PT and OT, ambulate to chair a d libidum. Cont. Steroids for cord edema. Goal: SBP<160mmHg. Advance diet as tolerated. D/C daniels. Ambulate with PT/OT. Afebrile, no Abx. Cardiovascular: normal rate and regular rhythm Pulmonary: breath sounds normal. Physical exam Her GCS eye subscore is 4. GCS verbal subscore is 5. GCS motor subscore is 6. GCS Score is 15. She has normal language, normal speech, intact cranial nerves and normal coordination. She is alert She is oriented.Decreased sensation in the B LEMild weakness in LE, R>L Hospital Problems Priority POA Nervous Spinal cord tumor Yes Other Acute post-operative pain Unknown At risk for constipation Unknown At risk for venous thromboembolism Unknown Service Neurosurgery [17] Admitting provider and ICU treatment team members Provider Role Pager Rajinder Luis MD Admitting Provider Number not on file The Advanced Care Note for this patient can be found under the notes tab in chart review. I have spent a total of 25 minutes in the direct care and management of this patient indepe ndent of any time spent teaching or performing any separately billable procedures. I reviewe d the documented findings, all data and the recent imaging available. I saw and evaluated t he patient at the bedside together with Dr. Moreno.Please see their note for details. I agr ee with the assessment and plan as described in the resident's note with the following excep tions/additions as noted. Date of Service: 09/11/2015 [facility] DEPARTMENT: [facility] ICU NEURO Place of Service:- Inpatient CSN: [id number] Suggested Modifier: GC - Resident Involved Suggested CPT: TO BRAKE REPAIRER DOS 09/11/2015 Author:Lesly Branch MD [address] [address] [facility], Yokasta Fleming MD - 8:28 AM PST NEUROSURGERY PROGRESS NOTE Hospital Day #: 2 Attending: Rajinder Luis MD Interval Events: No acute events overnight Feeling better since surgery Objective: Last Vitals: BP 100/49 | Pulse 89 | Temp 36.9 C (98.5 F) | RR 16 | Ht 1.6 m (5' 3") | W t 87.1 kg (192 lb 0.3 oz) | SpO2 94% | BMI 34.02 kg/(m^2) 24 Hour Vital Min/Max: Systolic (24hrs), Av mmHg, Min:93 mmHg, Max:113 mmHg Diastolic (24hrs), Av mmHg, Min:49 mmHg, Max:71 mmHg Pulse Min: 37 Max: 92 Temp Min: 36.5 C (97.7 F) Max: 36.6 C (97.9 F) Resp Min: 10 Max: 20 SpO2 Min: 91 % Max: 99 % Intake/Output Summary (Last 24 hours) at 09/10/15 1116 Last data filed at 09/10/15 0916 Gross per 24 hour Intake 3763.66 ml Output 3086 ml Net 677.66 ml Last 24 hour min/max Temp: 36.9 C (98.5 F) Temp Min: 36.4 C (97.6 F) Max: 37.1 C (98.8 F) Pulse: 89 Pulse Min: 45 Max: 89 Resp: 16 Resp Min: 10 Max: 17 BP: 100/49 mmHg BP Min: 93/49 Max: 113/54 SpO2: 94 % SpO2 Min: 94 % Max: 100 % Body mass index is 34.02 kg/(m^2). I/O/Drains Current Shift I/O/Drains Last 3 Completed Shifts 09/10 700 - 09/10 1500 In: 410 [P.O.:400; I.V.:10] Out: 160 [Urine:160] 09/09 700 - 09/10 0700 In: 2139.8 [P.O.:1900; I.V.:239.8] Out: 4025 [Urine:4025] @DRAINICPVALUESHEIGHT@ Physical Exam: Awake, alert, oriented to self, time, place, situation PERRL EOMI Face symmetric Tongue midline No pronator drift Strength BUE 5/5 RLE 4/5 LLE 5/5 Incision c/d/i. No surrounding erythema, swelling or drainage. Wale in place Endorses T12 sensory level Labs: Complete Blood Count/Coags Recent Labs 05/17/15 1009 09/09/15 1835 09/10/15 0329 WBC 13.44* 11.21* 9.12 HB 11.6* 12.1 11.8* HCT 37.1 36.6 37.0 PLT 343 299 333 Invalid input(s): INR CSF Results No results for input(s): WBCCSF, RBCCSF, GLUCOSECSF, PROTEINCSF in the last 8640 hours. Chemistry Recent Labs 05/14/15 0240 05/15/15 0852 05/16/15 1320 05/17/15 1009 09/09/15 1835 09/10/15 0329 09/10/15 1327 09/10/15 1708 09/10/15 2129 NA 143 139 137 136 139 141 -- -- -- -- K 3.2* 4.0 3.4 3.8 3.5 4.0 -- -- -- -- CL 116* 105 101 100 108 110* -- -- -- -- BICARB 19* 29 28 31 21 23 -- -- -- -- BUN 10 10 12 12 8 8 -- -- -- -- CR 0.48* 0.65 0.67 0.67 0.70 0.62 -- -- -- -- GLU 121* 108* 108* 85 98 131* < > 157* 139* 158* CA 6.1* 8.4* 8.7 9.2 8.1* 8.5* -- -- -- -- MG 1.1* 2.0 1.6* 2.0 -- -- -- -- -- -- PO4 2.6 -- -- -- -- 2.9 -- -- -- -- < > = values in this interval not displayed. Culture Results CULT, URINE SCREEN (no units) Date Value 07/12/2015 Negative Current Facility-Administered Medications Medication Dose Route Frequency acetaminophen (TYLENOL) tablet 650 mg 650 mg oral Q6H baclofen (LIORESAL) tablet 10 mg 10 mg oral TID baclofen (LIORESAL) tablet 15 mg 15 mg oral HS bisacodyl (DULCOLAX) suppository 10 mg 10 mg rectal DAILY PRN dexamethasone (DECADRON) tablet 4 mg 4 mg oral Q6H dextrose 50 % in water IV 25 mL 25 mL intravenous PRN diphenhydrAMINE (BENADRYL) capsule 25 mg 25 mg oral Q4H PRN gabapentin (NEURONTIN) capsule 600 mg 600 mg oral TID glucagon (GLUCAGEN) injection 1 mg 1 mg intramuscular PRN glucose chewable tablet 16 g 16 g oral PRN HYDROmorphone (DILAUDID) injection 0.5-2 mg 0.5-2 mg intravenous Q2H PRN HYDROmorphone (DILAUDID) tablet 2-8 mg 2-8 mg oral Q3H PRN insulin lispro (HUMALOG) injection subcutaneous QID NaCl 0.9%-KCl 20 mEq/L IV infusion intravenous CONTINUOUS ondansetron (ZOFRAN) injection 4 mg 4 mg intravenous Q12H PRN polyethylene glycol (MIRALAX) powder 34 g 34 g oral TID PRN senna-docusate (SENOKOT S) 8.6-50 mg 1 tablet 1 tablet oral BID Imaging: None new Assessment: Matt Fagan is a 24 y.o. 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 Now s/p R T9-T10 hemilaminectomies for decompression and redo resection. Neurologically improved since surgery per patient. 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 -No acute post-operative events, strength better this morning. -Complaining of back pain. OBJECTIVE: Vital signs, labs, and medications all reviewed in patient chart. NEUROLOGICAL EXAM: Awake, alert, orient to self, [employer], and date Speech fluent, answers appropriately PERRL, EOMI Face symmetric, TML No pronator drift, no FTN dysmetria Full strength in UEs LLE: 4+/5 HF/KE/KF, 5/5 DFl/PFl/EHL RLE: 4-/5 HF, 4/5 KE/KF, 4+/5 PFl/DFl/EHL SILT Incision clean/dry/intact RADIOLOGY: No new imaging this morning. ASSESSMENT/PLAN: 24 y.o. female HD#1 with history of thoracic intramedullary low-grade tumor, s/p resection in 05/2015, who returned 09/09/15 with acute lower extremity weakness and urinary incontinence . She underwent T9-10 lamis and partial resection on 09/08. She has improving strength post-op eratively. - MAPs>75. - Can transfer to the [facility]. - q4 neuro checks - Dressings to remain in place for 48 hours post op - keep dressings and incision C/D/I - Maintain adequate analgesia with goal RASS 0 - ADAT - PT/OT, Encourage mobilization - SCDs while in bed Ngoc Hernandez MD Neurological Surgery, PGY-3 Stephie Serrato MD - 09/10/2015 10:35 AM PST . Neuroscience Intensive Care Unit Attending Progress Note Attending Pager #[phone] ICU Admission Reason Most Recent Value ICU Admission reason Pressed to MAP 80 filed at 09/10/2015 0124 Documentation Date 09/10/15 0124 Day of Procedure 09/10/15 Neurosurgical Procedures Neurosurgical Neurosurgical Procedures Other Hospital admission dx: INCONTINENCE PARALYSIS Days in ICU 1 Days in Hospital HPI 24 y/o female with prior T6 spinal cord tumor resection presented with new onset lower ext remity weakness today. She was urgently taken to the OR for resection of recurrent spinal co rd mass and syrinx . Her history is significant for prior resection of spinal cord mass in 07/2014 at the T6 level. At her baseline she is able to walk, has weak right lower extremity, left lacks pain, temperature, sensation around her umbilicus to her toes. Medical Decision Making 24 yo woman with known T6 spinal cord lesion - ganglioneuroma, now st/p re-resection, arri maikel postop, permissive HTN on phenylephrine gtt to maintain MAP>75 mmHg. Interval events: admitted to the ICU, pain controlled, Hct 37, wbc 9, art line in place, ph enylephrine gtt - now off, midodrine started o/n Exam: AA and Ox4, T10 sensation proprioception loss, more on the left, BLEs 4/5, BUEs 5/5 Assessment and plan: --neuro monitoring q 1hrs, MRI spine tonight --CV: maintain MAP>75, if lower MAP will evaluate for exam change, wean off phenylephrine, wean midodrine, SBP<160 mmHg --resp: bronchial hygiene, IS --Heme: f/u cbc --: at risk for ileus, bowel regimen, adat --: f/u electrolytes, remove daniels PT and OT, ambulate to chair ad libidum. Code Status Updated to: FULL vitals and nursing note reviewed. Hospital Problems Priority POA Nervous Spinal cord tumor Yes Other Acute post-operative pain Unknown At risk for constipation Unknown At risk for venous thromboembolism Unknown Service Neurosurgery [17] Admitting provider and ICU treatment team members Provider Role Pager Rajinder Luis MD Admitting Provider Number not on file The Advanced Care Note for this patient can be found under the notes tab in chart review. I have spent a total of 35 minutes in the direct care and management of this patient indepe ndent of any time spent teaching or performing any separately billable procedures. I reviewe d the documented findings, all data and the recent imaging available. Greater than 50% of th is time was spent on counseling and coordination of care.Seen with PA/GENERAL ACCOUNTANT Mannie. Please see t heir note for details. I reviewed the documented findings, all data and the recent imaging a vailable. Date of Service: 09/10/2015 [facility] DEPARTMENT: [facility] ICU NEURO Place of Service:- Inpatient CSN: [id number] Suggested Modifier: GC - Resident Involved Suggested CPT: TO BRAKE REPAIRER DOS 09/10/2015 Author:Stephie Anders MD [address] [address] [place] [address] Tristen Hein ACN P - 09/10/2015 7:10 AM PST . Neuroscience Intensive Care Unit Team Progress Note NSICU ASSIGNED #[id number] ICU Admission Reason Most Recent Value ICU Admission reason Pressed to MAP 80 filed at 09/10/2015 0124 Documentation Date 09/10/15 012 Day of Procedure 09/10/15 Neurosurgical Procedures Neurosurgical Neurosurgical Procedures Other Admission dx: INCONTINENCE PARALYSIS Days in ICU 1 Days in Hospital HPI 24 y/o female with prior T6 spinal cord tumor resection presented with new onset lower ext remity weakness today. She was urgently taken to the OR for resection of recurrent spinal co rd mass and syrinx . Her history is significant for prior resection of spinal cord mass in 07/2014 at the T6 level. At her baseline she is able to walk, has weak right lower extremity, left lacks pain, temperature, sensation around her umbilicus to her toes. 24 Hour event To NSICU post op to press MAP > 80, on phenylephrine and midodrine. 1L NS bolus given Active Diagnosis with Assessment & Plan Priority Class POA Nervous Spinal cord tumor Yes Overview ganglioneuroma, s/p resection 05/2015 Recurrence, s/p resection 09/09/2015 Current Assessment & Plan Brown sequard like pattern at ~T9 is baseline NSICU q1hr neurochecks 4mg q6 decadron x48hrs Press to MAP >80, PO midodrine, prn phenylephrine to acheive goal -- will stop phenylephrin e and midodrine now to see if exam changes. If not, may transfer to floor this afternoon Remove arterial line today Remove daniels today Other Acute post-operative pain Unknown Current Assessment & Plan IV HM prn PO HM prn scheduled apap Home baclofen 10TID, 15HS Home gabapentin 300tid Prn vistaril for itching Holding home ambien At risk for constipation Unknown Overview Bowel reg Current Assessment & Plan NSICU bowel reg At risk for venous thromboembolism Unknown Overview scd Current Assessment & Plan SCDs Chemical prophylaxis POD2 Code Status Updated to: FULL The Advanced Care Note for this patient can be found under the notes tab in chart review. Cardiovascular: normal rate, regular rhythm and normal heart sounds no murmur heard. Pulmonary: effort normal and breath sounds normal. No respiratory distress. Abdominal: Abdomen is soft. bowel sounds are normal. Skin: Skin is warm. Physical exam Her GCS eye subscore is 4. GCS verbal subscore is 5. GCS motor subscore is 6. GCS Score is 15. She has normal language, normal speech, intact cranial nerves and normal coordination. She is alert She is oriented. Comments No pronator drift. Left abdomen with decreased sensat ion compared to right abdomen at level ~T9. Loss of propioception BLEs. Intact sensation to light touch LLE. Less sensation on RLE. When squeezing her right toes, she endorses sensatio n at the site, along with the same sensation on left side at same location. Strength 4/5 BLE s. 5/5 BUEs. . Service Neurosurgery [17] Admitting provider and ICU treatment team members Provider Role Pager Rajinder Luis MD Admitting Provider Number not on file Patient Lines/Drains/Airways Status Active Lines, Drains and Airways Name: Placement date: Placement time: Site: Days: Peripheral IV Left Antecubital 20 g Antecubital Peripheral IV Left Posterior Hand 16 g Hand Incision Posterior spine- thoracic 05/13/15 1634 119 Incision Upper back 09/09/156 less than 1 Urethral Catheter Daniels 16 Fr. 05/13/15 1530 Daniels 119 Urethral Catheter Daniels 16 Fr. 09/09/152011 Daniels less than 1 Arterial Line Right Radial 20g Radial Daniels: yes FAST HUG Feeding: regular diet Analgesia: APAP, baclofen, gabapentin, hydromorphone PO and IV Sedation: none Thromboprophylaxis: SCDs Head of Bed: > 30 degrees Ulcer Prophylaxis: n/a Glycemic Control: SSI I have spent a total of 38 Minutes independently in the direct care and management of th is patient.Time is independent of any time spent teaching or performing any separately billa ble procedures. I reviewed the documented findings, all data and the recent imaging availabl e. Date of Service: 09/10/2015 AIXA Mahajan [facility] DEPARTMENT: [facility] ICU NEURO Place of Service:- Inpatient CSN: [id number] Suggested Modifier: None Suggested CPT: TO BRAKE REPAIRER DOS 09/10/2015 Author:AIXA Mahajan [address] [address] [place] [address] LEFilipe Pabon MD - 09/10/2015 2:58 AM [facility] NEUROSURGERY POST OPERATIVE CHECK Author: Filipe Nelson MD Date: 09/10/2015 Attending Physician: Rajinder Luis MD PROCEDURE: T9-10 hemilami rxn of lesion S:NAD VITAL SIGNS: BP 111/65 | Pulse 51 | Temp 36.5 C (97.7 F) | RR 12 | Ht 1.6 m (5' 3") | Wt 85 kg (187 lb 6.3 oz) | SpO2 97% | BMI 33.2 kg/(m^2) PHYSICAL EXAM FINDINGS: A&Ox3, Following commands PERRLA, EOMI, Tongue Midline, Face symmetric BU - 5/5, SILT RL - 4+/5, loss of proprioception LL - HF 4+, else 5, intact proprioception Lower sensation R>L to touch Wound C/D/I POST OPERATIVE IMAGING: Pending A/P: Neurologically stable. Continue care: - Frequent Neuro Checks - Keep incision and dressings C/D/I. - Maintain adequate analgesia with goal RASS 0 - SBP 100-160 - ADAT - Utilize bowel regimen for goal 1 BM per 24 hours - SCDs while in bed Filipe Nelson MD Neurosurgery Resident Pager #[phone] documented in this en counter Plan of Treatment Not on filedocumented as of this encounter Procedures + +--------+ + + + | Procedure Name | Priori | Date/Time | Associated Diagnosis | Comments | | | ty | | | | + +--------+ + + + | UA, DIPSTICK ONLY | Routin | 09/15/2015 | | Results for this | | | e | 8:33 AM | | procedure are in the | | | | PST | | results section. | + +--------+ + + + | URINE, MICROSCOPIC | Routin | 09/15/2015 | | Results for this | | EXAM | e | 8:33 AM | | procedure are in the | | | | PST | | results section. | + +--------+ + + + | URINE SCREEN FOR | Routin | 09/15/2015 | | Results for this | | CULTURE | e | 8:33 AM | | procedure are in the | | | | PST | | results section. | + +--------+ + + + | CBC (HEMOGRAM) ONLY | Routin | 09/15/2015 | | Results for this | | | e | 6:45 AM | | procedure are in the | | | | PST | | results section. | + +--------+ + + + | CBC ONLY | Routin | 09/15/2015 | | Results for this | | | e | 6:45 AM | | procedure are in the | | | | PST | | results section. | + +--------+ + + + | CAPILLARY BLOOD | Routin | 09/14/2015 | Spinal cord tumor | Results for this | | GLUCOSE (NO CHG), | e | 10:28 AM | | procedure are in the | | POC | | PST | | results section. | + +--------+ + + + | CBC (HEMOGRAM) ONLY | Routin | 09/14/2015 | | Results for this | | | e | 7:50 AM | | procedure are in the | | | | PST | | results section. | + +--------+ + + + | CBC ONLY | Routin | 09/14/2015 | | Results for this | | | e | 7:50 AM | | procedure are in the | | | | PST | | results section. | + +--------+ + + + | CAPILLARY BLOOD | Routin | 09/13/2015 | Spinal cord tumor | Results for this | | GLUCOSE (NO CHG), | e | 11:24 PM | | procedure are in the | | POC | | PST | | results section. | + +--------+ + + + | CAPILLARY BLOOD | Routin | 09/13/2015 | Spinal cord tumor | Results for this | | GLUCOSE (NO CHG), | e | 6:46 PM | | procedure are in the | | POC | | PST | | results section. | + +--------+ + + + | CAPILLARY BLOOD | Routin | 09/13/2015 | Spinal cord tumor | Results for this | | GLUCOSE (NO CHG), | e | 1:29 PM | | procedure are in the | | POC | | PST | | results section. | + +--------+ + + + | CAPILLARY BLOOD | Routin | 09/13/2015 | Spinal cord tumor | Results for this | | GLUCOSE (NO CHG), | e | 8:56 AM | | procedure are in the | | POC | | PST | | results section. | + +--------+ + + + | CAPILLARY BLOOD | Routin | 09/12/2015 | Spinal cord tumor | Results for this | | GLUCOSE (NO CHG), | e | 10:41 PM | | procedure are in the | | POC | | PST | | results section. | + +--------+ + + + | CAPILLARY BLOOD | Routin | 09/12/2015 | Spinal cord tumor | Results for this | | GLUCOSE (NO CHG), | e | 7:47 PM | | procedure are in the | | POC | | PST | | results section. | + +--------+ + + + | CAPILLARY BLOOD | Routin | 09/12/2015 | Spinal cord tumor | Results for this | | GLUCOSE (NO CHG), | e | 1:23 PM | | procedure are in the | | POC | | PST | | results section. | + +--------+ + + + | CAPILLARY BLOOD | Routin | 09/12/2015 | Spinal cord tumor | Results for this | | GLUCOSE (NO CHG), | e | 10:11 AM | | procedure are in the | | POC | | PST | | results section. | + +--------+ + + + | CAPILLARY BLOOD | Routin | 09/12/2015 | Spinal cord tumor | Results for this | | GLUCOSE (NO CHG), | e | 12:43 AM | | procedure are in the | | POC | | PST | | results section. | + +--------+ + + + | CAPILLARY BLOOD | Routin | 09/11/2015 | Spinal cord tumor | Results for this | | GLUCOSE (NO CHG), | e | 9:13 PM | | procedure are in the | | POC | | PST | | results section. | + +--------+ + + + | CAPILLARY BLOOD | Routin | 09/11/2015 | Spinal cord tumor | Results for this | | GLUCOSE (NO CHG), | e | 4:26 PM | | procedure are in the | | POC | | PST | | results section. | + +--------+ + + + | CAPILLARY BLOOD | Routin | 09/11/2015 | Spinal cord tumor | Results for this | | GLUCOSE (NO CHG), | e | 11:04 AM | | procedure are in the | | POC | | PST | | results section. | + +--------+ + + + | CAPILLARY BLOOD | Routin | 09/10/2015 | Spinal cord tumor | Results for this | | GLUCOSE (NO CHG), | e | 9:29 PM | | procedure are in the | | POC | | PST | | results section. | + +--------+ + + + | CAPILLARY BLOOD | Routin | 09/10/2015 | Spinal cord tumor | Results for this | | GLUCOSE (NO CHG), | e | 5:08 PM | | procedure are in the | | POC | | PST | | results section. | + +--------+ + + + | MRI SPINE THORACIC | Urgent | 09/10/2015 | | Results for this | | WWO CONT | | 3:37 PM | | procedure are in the | | | | PST | | results section. | + +--------+ + + + | CAPILLARY BLOOD | Routin | 09/10/2015 | Spinal cord tumor | Results for this | | GLUCOSE (NO CHG), | e | 1:27 PM | | procedure are in the | | POC | | PST | | results section. | + +--------+ + + + | OPERATION RECORD | | 09/10/2015 | | Results for this | | | | 10:32 AM | | procedure are in the | | | | PST | | results section. | + +--------+ + + + | PROCEDURE NOTE | Routin | 09/10/2015 | | Results for this | | | e | 10:25 AM | | procedure are in the | | | | PST | | results section. | + +--------+ + + + | CAPILLARY BLOOD | Routin | 09/10/2015 | Spinal cord tumor | Results for this | | GLUCOSE (NO CHG), | e | 9:16 AM | | procedure are in the | | POC | | PST | | results section. | + +--------+ + + + | CBC (HEMOGRAM) ONLY | Urgent | 09/10/2015 | | Results for this | | | | 3:29 AM | | procedure are in the | | | | PST | | results section. | + +--------+ + + + | RENAL FUNCTION SET | Urgent | 09/10/2015 | | Results for this | | (NA,K,CL,CO2,BUN,CRE | | 3:29 AM | | procedure are in the | | AT,GLUC,CA,PHOS,ALB | | PST | | results section. | | ) | | | | | + +--------+ + + + | CBC ONLY | Urgent | 09/10/2015 | | Results for this | | | | 3:29 AM | | procedure are in the | | | | PST | | results section. | + +--------+ + + + | CARDIOLOGY | | 09/10/2015 | | Results for this | | | | 12:00 AM | | procedure are in the | | | | PST | | results section. | + +--------+ + + + | CARDIOLOGY | | 09/10/2015 | | Results for this | | | | 12:00 AM | | procedure are in the | | | | PST | | results section. | + +--------+ + + + | CARDIOLOGY | | 09/10/2015 | | Results for this | | | | 12:00 AM | | procedure are in the | | | | PST | | results section. | + +--------+ + + + | RESECTION OF SPINAL | Electi | 09/09/2015 | THORACIC SPINAL | | | CORD TUMOR | ve | 7:52 PM | CORD TUMOR | | | | Surgic | PST | | | | | al | | | | + +--------+ + + + +---+--------+ | | | | | Specia | | | l | | | Needs | | | IN | | | TRANSI | | | T TO | | | [facility] | +---+--------+ + +--------+ + +---+ | THORACIC LAMINECTOMY | Electi | 09/09/2015 | THORACIC SPINAL | | | | ve | 7:52 PM | CORD TUMOR | | | | Surgic | PST | | | | | al | | | | + +--------+ + +---+ +---+--------+ | | | | | Specia | | | l | | | Needs | | | IN | | | TRANSI | | | T TO | | | [facility] | +---+--------+ + +--------+ +---+ + | RAINBOW HOLD TUBE - | Urgent | 09/09/2015 | | | | RED TOP | | 6:35 PM | | | | | | PST | | | + +--------+ +---+ + | CBC (HEMOGRAM) ONLY | Routin | 09/09/2015 | | Results for this | | | e | 6:35 PM | | procedure are in the | | | | PST | | results section. | + +--------+ +---+ + | INR | Routin | 09/09/2015 | | Results for this | | | e | 6:35 PM | | procedure are in the | | | | PST | | results section. | + +--------+ +---+ + | BASIC METABOLIC SET | Routin | 09/09/2015 | | Results for this | | (NA, K, CL, TCO2, | e | 6:35 PM | | procedure are in the | | BUN, CR, GLU, CA) | | PST | | results section. | + +--------+ +---+ + | CBC ONLY | Routin | 09/09/2015 | | Results for this | | | e | 6:35 PM | | procedure are in the | | | | PST | | results section. | + +--------+ +---+ + | APTT (ACT. PART. | Routin | 09/09/2015 | | Results for this | | THROMBO TIME) | e | 6:35 PM | | procedure are in the | | | | PST | | results section. | + +--------+ +---+ + | ANTIBODY SCREEN | Routin | 09/09/2015 | | Results for this | | | e | 6:35 PM | | procedure are in the | | | | PST | | results section. | + +--------+ +---+ + | TYPE AND SCREEN | Routin | 09/09/2015 | | Results for this | | | e | 6:35 PM | | procedure are in the | | | | PST | | results section. | + +--------+ +---+ + | ABO & RH TYPE | Routin | 09/09/2015 | | Results for this | | | e | 6:35 PM | | procedure are in the | | | | PST | | results section. | + +--------+ +---+ + | INTRAOPERATIVE NEURO | Routin | 09/09/2015 | | Results for this | | MONITORING | e | | | procedure are in the | | | | | | results section. | + +--------+ +---+ + | SURGICAL PATHOLOGY | Routin | 09/09/2015 | | Results for this | | | e | | | procedure are in the | | | | | | results section. | + +--------+ +---+ + documented in this encounter Results PORTILLO CARO ONLY (09/15/2015 8:33 AM PST) + + + + + + | Component | Value | Ref Range | Performed | Pathologist | | | | | At | Signature | + + + + + + | COLOR(UR) | Straw | | [facility] | | | | | | LABORATORY | | | | | | SERVICES, | | | | | | CORE | | + + + + + + | APPEARANCE | Clear | | [facility] | | | | | | LABORATORY | | | | | | SERVICES, | | | | | | CORE | | + + + + + + | GLUCOSE(UR) | Negative | Negative, 50.0 | [facility] | | | | | mg/dL | LABORATORY | | | | | | SERVICES, | | | | | | CORE | | + + + + + + | PROTEIN(LAB | Negative | Negative, 30.0 | [facility] | | | ) | | mg/dL | LABORATORY | | | | | | SERVICES, | | | | | | CORE | | + + + + + + | BILIRUBIN | Negative | Negative | [facility] | | | | | | LABORATORY | | | | | | SERVICES, | | | | | | CORE | | + + + + + + | UROBILINOGE | <2.0 | <2.0 mg/dL | [facility] | | | N | | | LABORATORY | | | | | | SERVICES, | | | | | | CORE | | + + + + + + | PH(UR) | 7.0 | 5.0 - 8.0 | [facility] | | | | | | LABORATORY | | | | | | SERVICES, | | | | | | CORE | | + + + + + + | BLOOD | Negative | Negative | [facility] | | | | | | LABORATORY | | | | | | SERVICES, | | | | | | CORE | | + + + + + + | KETONES | Negative | Negative mg/dL | [facility] | | | | | | LABORATORY | | | | | | SERVICES, | | | | | | CORE | | + + + + + + | NITRITES | Negative | Negative | [facility] | | | | | | LABORATORY | | | | | | SERVICES, | | | | | | CORE | | + + + + + + | LEUKOCYTE | Negative | Negative | [facility] | | | ESTERASE | | | LABORATORY | | | | | | SERVICES, | | | | | | CORE | | + + + + + + | SPECIFIC | 1.009 | 1.005 - 1.030 | [facility] | | | GRAVITY | | | LABORATORY | | | | | | SERVICES, | | | | | | CORE | | + + + + + + + + | Specimen | + + | Urine - Urine | | (substance) | + + + + + + + | Performing | Address | City/State/Zipcode | Phone Number | | Organization | | | | + + + + + | [facility] | [address] | [place] [address] | | | SERVICES, CORE | [address] | | | + + + + + URINE, MICROSCOPIC EXAM (09/15/2015 8:33 AM PST) + +---------+ + + + | Component | Value | Ref Range | Performed | Pathologist | | | | | At | Signature | + +---------+ + + + | RED CELLS | <1 | 0 - 3 /hpf | [facility] | | | | | | LABORATORY | | | | | | SERVICES, | | | | | | CORE | | + +---------+ + + + | WHITE CELLS | <1 | 0 - 5 /hpf | [facility] | | | | | | LABORATORY | | | | | | SERVICES, | | | | | | CORE | | + +---------+ + + + | BACTERIA | None | None /hpf | [facility] | | | | | | LABORATORY | | | | | | SERVICES, | | | | | | CORE | | + +---------+ + + + | YEAST (LAB) | None | None /hpf | [facility] | | | | | | LABORATORY | | | | | | SERVICES, | | | | | | CORE | | + +---------+ + + + | SQUAMOUS | Few (A) | None /hpf | [facility] | | | EPITHELIAL | | | LABORATORY | | | | | | SERVICES, | | | | | | CORE | | + +---------+ + + + | MUCOUS | None | None /hpf | [facility] | | | | | | LABORATORY | | | | | | SERVICES, | | | | | | CORE | | + +---------+ + + + | TRICHOMONAS | None | None /hpf | [facility] | | | | | | LABORATORY | | | | | | SERVICES, | | | | | | CORE | | + +---------+ + + + | NON-SQUAMISELA | Few (A) | None /hpf | [facility] | | | S EPITH | | | LABORATORY | | | | | | SERVICES, | | | | | | CORE | | + +---------+ + + + | HYALINE | 0 | 0 - 2 /lpf | [facility] | | | CASTS | | | LABORATORY | | | | | | SERVICES, | | | | | | CORE | | + +---------+ + + + | GRANULAR | 0 | 0 - 2 /lpf | [facility] | | | CASTS | | | LABORATORY | | | | | | SERVICES, | | | | | | CORE | | + +---------+ + + + | CELLULAR | 0 | <=0 /lpf | [facility] | | | CASTS | | | LABORATORY | | | | | | SERVICES, | | | | | | CORE | | + +---------+ + + + | TRIPLE P04 | None | None /hpf | [facility] | | | CRYSTALS | | | LABORATORY | | | | | | SERVICES, | | | | | | CORE | | + +---------+ + + + | CALCIUM | None | None /hpf | [facility] | | | OXALATE | | | LABORATORY | | | HAYLIE | | | SERVICES, | | | | | | CORE | | + +---------+ + + + | URIC ACID | None | None /hpf | [facility] | | | CRYSTALS | | | LABORATORY | | | | | | SERVICES, | | | | | | CORE | | + +---------+ + + + | AMORPHOUS | None | None /hpf | [facility] | | | CRYSTALS | | | LABORATORY | | | | | | SERVICES, | | | | | | CORE | | + +---------+ + + + + + | Specimen | + + | Urine - Urine | | (substance) | + + + + + + + | Performing | Address | City/State/Zipcode | Phone Number | | Organization | | | | + + + + + | [facility] | [address] | [place] [address] | | | [facility] | [address] | | | + + + + + URINE SCREEN FOR CULTURE (09/15/2015 8:33 AM PST) + + + + + + | Component | Value | Ref Range | Performed | Pathologist | | | | | At | Signature | + + + + + + | URINE | Negative | Negative | [facility] | | | SCREEN FOR | | | LABORATORY | | | CULTURE | | | SERVICES, | | | | | | CORE | | + + + + + + + + | Specimen | + + | Urine - Urine | | (substance) | + + + + + | Narrative | Performed At | + + + | Culture Screen Negative. Culture not indicated. | [facility] | | | LABORATORY | | | SERVICES, CORE | + + + + + + + + | Performing | Address | City/State/Zipcode | Phone Number | | Organization | | | | + + + + + | [facility] | [address] | [place] [address] | | | SERVICES, CORE | [address] | | | + + + + + CBC (HEMOGRAM) ONLY (09/15/2015 6:45 AM PST) + + + + + + | Component | Value | Ref Range | Performed | Pathologist | | | | | At | Signature | + + + + + + | WHITE CELL | 17.28 (H) | 4.40 - 11.00 | [facility] | | | COUNT | | K/cu mm | LABORATORY | | | | | | SERVICES, | | | | | | CORE | | + + + + + + | RED CELL | 4.93 | 4.00 - 5.20 | [facility] | | | COUNT | | M/cu mm | LABORATORY | | | | | | SERVICES, | | | | | | CORE | | + + + + + + | HEMOGLOBIN | 12.6 | 12.0 - 16.0 | [facility] | | | | | g/dL | LABORATORY | | | | | | SERVICES, | | | | | | CORE | | + + + + + + | HEMATOCRIT | 39.3 | 36.0 - 46.0 % | [facility] | | | | | | LABORATORY | | | | | | SERVICES, | | | | | | CORE | | + + + + + + | MCV | 79.7 (L) | 80.0 - 96.0 fL | [facility] | | | | | | LABORATORY | | | | | | SERVICES, | | | | | | CORE | | + + + + + + | MCHC | 32.1 | 33.0 - 35.5 | [facility] | | | | | g/dL | LABORATORY | | | | | | SERVICES, | | | | | | CORE | | + + + + + + | RDW SD | 42.9 | 35.1 - 46.3 fL | [facility] | | | | | | LABORATORY | | | | | | SERVICES, | | | | | | CORE | | + + + + + + | PLATELET | 368 | 150 - 400 K/cu | [facility] | | | COUNT | | mm | LABORATORY | | | | | | SERVICES, | | | | | | CORE | | + + + + + + | MPV | 10.7 | 9.7 - 12.3 fL | [facility] | | | | | | LABORATORY | | | | | | SERVICES, | | | | | | CORE | | + + + + + + | NRBC% | 0.0 | 0.0 - 0.3 % | [facility] | | | | | | LABORATORY | | | | | | SERVICES, | | | | | | CORE | | + + + + + + | NRBC# | 0.00 | 0.00 - 0.02 | [facility] | | | | | K/cu mm | LABORATORY | | | | | | SERVICES, | | | | | | CORE | | + + + + + + + + | Specimen | + + | Blood - Blood | | (substance) | + + + + + + + | Performing | Address | City/State/Zipcode | Phone Number | | Organization | | | | + + + + + | [facility] | [address] | [place] [address] | | | SERVICES, CORE | [address] | | | + + + + + CAPILLARY BLOOD GLUCOSE (NO CHG), POC (09/14/2015 10:28 AM PST) + +---------+ + + + | Component | Value | Ref Range | Performed | Pathologist | | | | | At | Signature | + +---------+ + + + | BLOOD | 104 (H) | 60 - 99 mg/dL | [facility] - | | | GLUCOSE, | | | [facility] | | | POC | | | [facility] | | | | | | OF CARE | | | | | | TESTS | | + +---------+ + + + + + | Specimen | + + | | + + + + + + + | Performing | Address | City/State/Zipcode | Phone Number | | Organization | | | | + + + + + | [facility] | [address] | [place], [place] | | | [facility] | [address] | [phone] | | | TESTS | | | | + + + + + CBC (HEMOGRAM) ONLY (09/14/2015 7:50 AM PST) + + + + + + | Component | Value | Ref Range | Performed | Pathologist | | | | | At | Signature | + + + + + + | WHITE CELL | 15.21 (H) | 4.40 - 11.00 | [facility] | | | COUNT | | K/cu mm | LABORATORY | | | | | | SERVICES, | | | | | | CORE | | + + + + + + | RED CELL | 4.80 | 4.00 - 5.20 | [facility] | | | COUNT | | M/cu mm | LABORATORY | | | | | | SERVICES, | | | | | | CORE | | + + + + + + | HEMOGLOBIN | 12.3 | 12.0 - 16.0 | [facility] | | | | | g/dL | LABORATORY | | | | | | SERVICES, | | | | | | CORE | | + + + + + + | HEMATOCRIT | 37.9 | 36.0 - 46.0 % | [facility] | | | | | | LABORATORY | | | | | | SERVICES, | | | | | | CORE | | + + + + + + | MCV | 79.0 (L) | 80.0 - 96.0 fL | [facility] | | | | | | LABORATORY | | | | | | SERVICES, | | | | | | CORE | | + + + + + + | MCHC | 32.5 | 33.0 - 35.5 | [facility] | | | | | g/dL | LABORATORY | | | | | | SERVICES, | | | | | | CORE | | + + + + + + | RDW SD | 43.2 | 35.1 - 46.3 fL | [facility] | | | | | | LABORATORY | | | | | | SERVICES, | | | | | | CORE | | + + + + + + | PLATELET | 362 | 150 - 400 K/cu | [facility] | | | COUNT | | mm | LABORATORY | | | | | | SERVICES, | | | | | | CORE | | + + + + + + | MPV | 10.4 | 9.7 - 12.3 fL | [facility] | | | | | | LABORATORY | | | | | | SERVICES, | | | | | | CORE | | + + + + + + | NRBC% | 0.0 | 0.0 - 0.3 % | [facility] | | | | | | LABORATORY | | | | | | SERVICES, | | | | | | CORE | | + + + + + + | NRBC# | 0.00 | 0.00 - 0.02 | [facility] | | | | | K/cu mm | LABORATORY | | | | | | SERVICES, | | | | | | CORE | | + + + + + + + + | Specimen | + + | Blood - Blood | | (substance) | + + + + + + + | Performing | Address | City/State/Zipcode | Phone Number | | Organization | | | | + + + + + | [facility] | [address] | [place] [address] | | | SERVICES, CORE | [address] | | | + + + + + CAPILLARY BLOOD GLUCOSE (NO CHG), POC (09/13/2015 11:24 PM PST) + +---------+ + + + | Component | Value | Ref Range | Performed | Pathologist | | | | | At | Signature | + +---------+ + + + | BLOOD | 136 (H) | 60 - 99 mg/dL | [facility] - | | | GLUCOSE, | | | [facility] | | | POC | | | [facility] | | | | | | OF CARE | | | | | | TESTS | | + +---------+ + + + + + | Specimen | + + | | + + + + + + + | Performing | Address | City/State/Zipcode | Phone Number | | Organization | | | | + + + + + | [facility] | [address] | [place], [place] | | | [facility] | [address] | [phone] | | | TESTS | | | | + + + + + CAPILLARY BLOOD GLUCOSE (NO CHG), POC (09/13/2015 6:46 PM PST) + +---------+ + + + | Component | Value | Ref Range | Performed | Pathologist | | | | | At | Signature | + +---------+ + + + | BLOOD | 102 (H) | 60 - 99 mg/dL | [facility] - | | | GLUCOSE, | | | [facility] | | | POC | | | [facility] | | | | | | OF CARE | | | | | | TESTS | | + +---------+ + + + + + | Specimen | + + | | + + + + + + + | Performing | Address | City/State/Zipcode | Phone Number | | Organization | | | | + + + + + | [facility] | [address] | [place], [place] | | | [facility] | [address] | [address] | | | TESTS | | | | + + + + + CAPILLARY BLOOD GLUCOSE (NO CHG), POC (09/13/2015 1:29 PM PST) + +---------+ + + + | Component | Value | Ref Range | Performed | Pathologist | | | | | At | Signature | + +---------+ + + + | BLOOD | 128 (H) | 60 - 99 mg/dL | [facility] - | | | GLUCOSE, | | | [facility] | | | POC | | | [facility] | | | | | | OF CARE | | | | | | TESTS | | + +---------+ + + + + + | Specimen | + + | | + + + + + + + | Performing | Address | City/State/Zipcode | Phone Number | | Organization | | | | + + + + + | [facility] | [address] | [place], [place] | | | [facility] | [address] | [address] | | | TESTS | | | | + + + + + CAPILLARY BLOOD GLUCOSE (NO CHG), POC (09/13/2015 8:56 AM PST) + +---------+ + + + | Component | Value | Ref Range | Performed | Pathologist | | | | | At | Signature | + +---------+ + + + | BLOOD | 125 (H) | 60 - 99 mg/dL | [facility] | | | GLU[facility]SE, | | | [facility] | | | POC | | | [facility] | | | | | | OF CARE | | | | | | TESTS | | + +---------+ + + + + + | Specimen | + + | | + + + + + + + | Performing | Address | City/State/Zipcode | Phone Number | | Organization | | | | + + + + + | [facility] | [address] | [place], [place] | | | [facility] | [address] | [address] | | | TESTS | | | | + + + + + CAPILLARY BLOOD GLUCOSE (NO CHG), POC (09/12/2015 10:41 PM PST) + +---------+ + + + | Component | Value | Ref Range | Performed | Pathologist | | | | | At | Signature | + +---------+ + + + | BLOOD | 158 (H) | 60 - 99 mg/dL | [facility] - | | | GLUCOSE, | | | [facility] | | | POC | | | [facility] | | | | | | OF CARE | | | | | | TESTS | | + +---------+ + + + + + | Specimen | + + | | + + + + + + + | Performing | Address | City/State/Zipcode | Phone Number | | Organization | | | | + + + + + | [facility] | [address] | [place], [place] | | | [facility] | [address] | [phone] | | | TESTS | | | | + + + + + CAPILLARY BLOOD GLUCOSE (NO CHG), POC (09/12/2015 7:47 PM PST) + +---------+ + + + | Component | Value | Ref Range | Performed | Pathologist | | | | | At | Signature | + +---------+ + + + | BLOOD | 111 (H) | 60 - 99 mg/dL | [facility] - | | | GLUCOSE, | | | [facility] | | | POC | | | [facility] | | | | | | OF CARE | | | | | | TESTS | | + +---------+ + + + + + | Specimen | + + | | + + + + + + + | Performing | Address | City/State/Zipcode | Phone Number | | Organization | | | | + + + + + | [facility] | [address] | [place], [place] | | | [facility] | [address] | [phone] | | | TESTS | | | | + + + + + CAPILLARY BLOOD GLUCOSE (NO CHG), POC (09/12/2015 1:23 PM PST) + +---------+ + + + | Component | Value | Ref Range | Performed | Pathologist | | | | | At | Signature | + +---------+ + + + | BLOOD | 153 (H) | 60 - 99 mg/dL | [facility] | | | GLU[facility]SE, | | | [facility] | | | POC | | | [facility] | | | | | | OF CARE | | | | | | TESTS | | + +---------+ + + + + + | Specimen | + + | | + + + + + + + | Performing | Address | City/State/Zipcode | Phone Number | | Organization | | | | + + + + + | [facility] | [address] | [place], [place] | | | [facility] | [address] | [address] | | | TESTS | | | | + + + + + CAPILLARY BLOOD GLUCOSE (NO CHG), POC (09/12/2015 10:11 AM PST) + +---------+ + + + | Component | Value | Ref Range | Performed | Pathologist | | | | | At | Signature | + +---------+ + + + | BLOOD | 135 (H) | 60 - 99 mg/dL | [facility] | | | [facility], | | | [facility] | | | POC | | | [facility] | | | | | | [facility]ARE | | | | | | TESTS | | + +---------+ + + + + + | Specimen | + + | | + + + + + + + | Performing | Address | City/State/Zipcode | Phone Number | | Organization | | | | + + + + + | [facility] | [address] | [place], [place] | | | [facility] | [address] | [address] | | | TESTS | | | | + + + + + CAPILLARY BLOOD GLUCOSE (NO CHG), POC (09/12/2015 12:43 AM PST) + +---------+ + + + | Component | Value | Ref Range | Performed | Pathologist | | | | | At | Signature | + +---------+ + + + | BLOOD | 156 (H) | 60 - 99 mg/dL | [facility] | | | [facility], | | | [facility] | | | POC | | | [facility] | | | | | | OF CARE | | | | | | TESTS | | + +---------+ + + + + + | Specimen | + + | | + + + + + + + | Performing | Address | City/State/Zipcode | Phone Number | | Organization | | | | + + + + + | [facility] | [address] | [place], [place] | | | [facility] | [address] | [address] | | | TESTS | | | | + + + + + CAPILLARY BLOOD GLUCOSE (NO CHG), POC (09/11/2015 9:13 PM PST) + +---------+ + + + | Component | Value | Ref Range | Performed | Pathologist | | | | | At | Signature | + +---------+ + + + | BLOOD | 118 (H) | 60 - 99 mg/dL | [facility] | | | [facility], | | | [facility] | | | POC | | | [facility] | | | | | | [facility]ARE | | | | | | TESTS | | + +---------+ + + + + + | Specimen | + + | | + + + + + + + | Performing | Address | City/State/Zipcode | Phone Number | | Organization | | | | + + + + + | [facility] | [address] | [place], [place] | | | [facility] | [address] | [address] | | | TESTS | | | | + + + + + CAPILLARY BLOOD GLUCOSE (NO CHG), POC (09/11/2015 4:26 PM PST) + +---------+ + + + | Component | Value | Ref Range | Performed | Pathologist | | | | | At | Signature | + +---------+ + + + | BLOOD | 133 (H) | 60 - 99 mg/dL | [facility] | | | [facility], | | | [facility] | | | POC | | | [facility] | | | | | | OF CARE | | | | | | TESTS | | + +---------+ + + + + + | Specimen | + + | | + + + + + + + | Performing | Address | City/State/Zipcode | Phone Number | | Organization | | | | + + + + + | [facility] | [address] | [place], [place] | | | [facility] | [address] | [address] | | | TESTS | | | | + + + + + CAPILLARY BLOOD GLUCOSE (NO CHG), POC (09/11/2015 11:04 AM PST) + +---------+ + + + | Component | Value | Ref Range | Performed | Pathologist | | | | | At | Signature | + +---------+ + + + | BLOOD | 122 (H) | 60 - 99 mg/dL | [facility] | | | [facility], | | | [facility] | | | POC | | | [facility] | | | | | | OF CARE | | | | | | TESTS | | + +---------+ + + + + + | Specimen | + + | | + + + + + + + | Performing | Address | City/State/Zipcode | Phone Number | | Organization | | | | + + + + + | [facility] | [address] | [place], [place] | | | [facility] | [address] | [address] | | | TESTS | | | | + + + + + CAPILLARY BLOOD GLUCOSE (NO CHG), POC (09/10/2015 9:29 PM PST) + +---------+ + + + | Component | Value | Ref Range | Performed | Pathologist | | | | | At | Signature | + +---------+ + + + | BLOOD | 158 (H) | 60 - 99 mg/dL | [facility] | | | [facility]SE, | | | [facility] | | | POC | | | [facility] | | | | | | OF CARE | | | | | | TESTS | | + +---------+ + + + + + | Specimen | + + | | + + + + + + + | Performing | Address | City/State/Zipcode | Phone Number | | Organization | | | | + + + + + | [facility] | [address] | [place], [place] | | | [facility] | [address] | [address] | | | TESTS | | | | + + + + + CAPILLARY BLOOD GLUCOSE (NO CHG), POC (09/10/2015 5:08 PM PST) + +---------+ + + + | Component | Value | Ref Range | Performed | Pathologist | | | | | At | Signature | + +---------+ + + + | BLOOD | 139 (H) | 60 - 99 mg/dL | [facility] | | | GLUCOSE, | | | [facility] | | | POC | | | [facility] | | | | | | OF CARE | | | | | | TESTS | | + +---------+ + + + + + | Specimen | + + | | + + + + + + + | Performing | Address | City/State/Zipcode | Phone Number | | Organization | | | | + + + + + | [facility] | 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 Status | | | | | | post tumorresection in | | | | | | May 2015. | | | | | | COMPARISON: Outside | | | | | | thoracic spine MRI from | | | | | | yesterday (09/09/15). | | | | | | Preoperativespine MRI | | | | | | 05/08/15. Postoperative | | | | | | thoracic spine MRI | | | | | | 05/14/15 TECHNIQUE: | | | | | | Multiplanar | | | | | | multi-sequence MRI | | | | | | thoracic spine without | | | | | | and withgadolinium based | | | | | | intravenous contrast. | | | | | | FINDINGS: Alignment: | | | | | | Normal Marrow: | | | | | | Unremarkable Spinal | | | | | | cord: The peripherally | | | | | | enhancing intramedullary | | | | | | spinal cord | | | | | | lesioncentered the level | | | | | | of the T7-8 disc and | | | | | | superior half of the T8 | | | | | | vertebral bodymeasures | | | | | | 2.0 x 0.8 x 0.7 cm, | | | | | | similar to postoperative | | | | | | MRI of 05/13/2015. | | | | | | Againseen are changes of | | | | | | laminectomy at T6 and | | | | | | T7, and partial | | | | | | laminectomy at T5.T5-T7 | | | | | | cord resection cavity | | | | | | noted. Persistent | | | | | | nonenhancing T2 | | | | | | hyperintensityand cord | | | | | | expansion extending from | | | | | | the T7-8 disc level to | | | | | | the level of thesuperior | | | | | | half of the T10 | | | | | | vertebral body appears | | | | | | similar to prior | | | | | | MRI.Previously seen | | | | | | postoperative dorsal | | | | | | epidural fluid in the | | | | | | mid and upperthoracic | | | | | | spine has nearly | | | | | | resolved, with a | | | | | | persistent mitral | | | | | | epidural fluidnoted at | | | | | | the level of the | | | | | | laminectomies. | | | | | | Paraspinal soft | | | | | | tissues: Dorsal | | | | | | postsurgical change. | | | | | | IMPRESSION: Grossly | | | | | | stable appearance of | | | | | | peripheral enhancing | | | | | | intramedullary cord | | | | | | lesion atthe level of | | | | | | the T7-8 disc and | | | | | | superior half of the T8 | | | | | | vertebral body | | | | | | comparedto MRI of | | | | | | 05/14/15. Nonenhancing | | | | | | masslike enlargement and | | | | | | T2 hyperintensity ofthe | | | | | | cord at T8-T10 appears | | | | | | similar to MRI of | | | | | | 05/14/15, as well. | | | | | | Resolving postoperative | | | | | | changes. Attending | | | | | | Radiologists: SUMEET | | | | | | DERECK BRONSONuthor: | | | | | | SUMEET BRONSON MD I | | | | | | personally reviewed the | | | | | | images and, if | | | | | | necessary, edited the | | | | | | report. I agreewith the | | | | | | report as now presented. | | | | | | | | | | | | Final/Electronically | | | | | | signed / SUMEET | | | | | | AIYANA 09/10/2015 | | | | | | 17:10 PM | | | | + + + + + + + + | Specimen | + + | | + + + +---------+ + + | Performing | Address | City/State/Zipcode | Phone Number | | Organization | | | | + +---------+ + + | [facility] | | | | | RADIOLOGY | | | | + +---------+ + + CAPILLARY BLOOD GLUCOSE (NO CHG), POC (09/10/2015 1:27 PM PST) + +---------+ + + + | Component | Value | Ref Range | Performed | Pathologist | | | | | At | Signature | + +---------+ + + + | BLOOD | 157 (H) | 60 - 99 mg/dL | [facility] - | | | GLUCOSE, | | | [facility] | | | POC | | | [facility] | | | | | | OF CARE | | | | | | TESTS | | + +---------+ + + + + + | Specimen | + + | | + + + + + + + | Performing | Address | City/State/Zipcode | Phone Number | | Organization | | | | + + + + + | [facility] | [address] | [place], [place] | | | [facility] [place] [facility] | [address] | [address] | | | TESTS | | | | + + + + + OPERATION RECORD (09/10/2015 10:32 AM PST) + + | Transcriptions | + + | Rajinder Luis MD - 09/10/2015 8:47 AM PST Date of Service: 09/09/2015 Attending | | Surgeon: Rajinder Luis MD Loom Doffer(s): Jere Story MD. | | Preoperative Diagnoses: 1. 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 Acute diaphoresis.Postoperative Diagnoses: 1. 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 Acute diaphoresis.Procedure Performed: 1. Right T9, T10 hemilaminectomies | | for resection of intramedullary spinal cord tumor.2. Use of high-powered intraoperative | | microscope.3. 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 She has a previous history of a T6 and T7 | | laminectomy for resection of an intramedullary spinal cord tumor in May 2015 by | | Toby here at [facility]. She has residual right lower extremity weakness, but was gradually | | improving with her physical exam. However, given her new acute diaphoresis, she | | underwent imaging at an outside hospital which demonstrated tumor progression and | | potential syrinx. Given her clinical history and imaging findings, she was indicated | | for emergent laminectomy and decompression.Procedure In Detail: After discussion of the | | indications, risks, alternatives, and potential benefits with the patient, and after an | | extensive PARQ discussion, a signed consent form was obtained and placed in the | | patient's chart. She was properly identified in the preoperative area and brought to | | the operating room. General endotracheal anesthesia was induced on the [facility]. | | Occlusive dressings were placed over the patient's eyes and face. She was then | | carefully turned prone onto a Hair frame. All pressure points were appropriately | | padded. The Antonio Hugger was placed over her body to maintain core body temperature. We | | identified her previous upper thoracic midline incision, and proposed an incision that | | extended below this for about 5-6 cm. This was marked with a marking pen. The | | patient's back was then prepped and draped in the usual sterile fashion. An appropriate | | team pause was held and the patient received preoperative antibiotics and steroids. | | Under loupe magnification and headlight illumination, incision was made through the skin | | using a #10 blade. Dissection carried down to the dorsal thoracic fascia using | | monopolar electrocautery. Unilateral subperiosteal dissection was carried out at the | | spinous process and lamina on the right side only. This was done using monopolar | | electrocautery. We palpated what we suspected was the remaining T8 spinous process, and | | exposed the presumed T9 and T10 levels. Cerebellar retractors were used to maintain | | open the operative portal. A 3 mm matchstick drill bit on the high-speed pneumatic | | drill was used to drill down the right T9 and T10 marcela-lamina. The ligamentum flavum | | was removed using Kerrison rongeurs, and the thecal sac was exposed. We then used | | ultrasound to identify the expansile lesion within the thecal sac. This correlated well | | with our bony exposure. We then proceeded with dural opening. The microscope was then | | brought into the operative field. Under microscopic visualization, the dura was opened | | with a #11 blade and a blunt nerve hook. The arachnoid there was initially preserved, | | and once our dura was opened, the leaflets were retracted using 4-0 Surgilon suture and | | the weight of a hemostatic clamp. The arachnoid was opened using micro scissors and we | | were able to identify nerve roots laterally, and what appeared to be tumor medially. | | The dorsal aspect of the tumor was cauterized using bipolar electrocautery and opened | | using micro-scissors. There appeared to be a relatively firm capsule around the tumor, | | however, when we entered into the capsule, we noted purplish abnormal tissue, which was | | extremely friable. The tumor was fairly adherent to the spinal cord, which was | | displaced to the patient's left side, but the tumor was not adherent to itself making | | resection quite difficult. Multiple small specimens were obtained using micro pituitary | | forceps and a plane was developed around the tumor using Rhoton micro-dissectors. We | | attempted to use the Jiberish ultrasonic aspirator, but the durotomy was fairly small for | | this. We ultimately used suction to mobilize the tumor and used this as countertraction | | for Rhoton dissectors to peel away the tumor from the spinal cord. Motor signals were | | run intermittently at 5-10 minute intervals, and we noted slight improvement in the left | | lower extremity motor signals and no change in the right lower extremity motor signals. | | When we decompressed and removed tumor from the caudal aspect of the exposure. We did | | note spinal fluid coming from what appeared to be central canal. Tumor was removed | | from a caudal to rostral fashion, and the same thing occurred when we removed the | | rostral tumor. We did note spinal fluid from this area as well. Once we were satisfied | | with the resection, the wound was irrigated and hemostasis was achieved using Surgicel. | | The wound was again irrigated and hemostasis confirmed. We then proceeded with dural | | closure. The dura was closed with 6-0 Prolene suture in a running fashion. We then | | applied DuraSeal to the closure. The dorsal thoracic fascia was closed with 0 Vicryl | | suture in an interrupted fashion. The Oliver layer was closed with 0 Vicryl suture in | | an interrupted fashion. The dermis was closed with 2-0 and 3-0 Vicryl suture in an | | inverted, interrupted fashion. The skin was closed with wale. The incision was | | washed and dried. We applied Mepilex dressing to the incision. Prior to skin closure, | | we injected local anesthetic into the wound which consisted of 0.25% bupivacaine with | | epinephrine 1:200,000. The drapes were taken down, the patient carefully transferred | | back to the [facility]. She was extubated and she was taken to the recovery area | | in stable condition. At the end of the case, all instrument, sponge, needle counts were | | correct in 2 iterations.IRajinder MD was scrubbed and actively participated | | performing the critical portions of the operation.ZAMZAM Henry/MODLDD: | | 09/10/2015 08:01:47DT: 09/10/2015 08:47:03Job #: [id number] | + + PROCEDURE NOTE (09/10/2015 10:25 AM PST) + + + | Narrative | Performed At | + + + | Rajinder Luis MD 09/10/2015 10:25 AM INPATIENT BRIEF OPERATIVE | | | NOTE Procedure Date: 09/09/2015 Author: Jere Story MD | | | Attending Physician: Rajinder Luis MD Assistants: Jere Story MD | | | Prior to the beginning of the procedure the team paused to verify | | | the patient's identity, as well as the procedure to be performed | | | and the correct side/site. All equipment required was ready and | | | available. The patient was positioned appropriately. The following | | | team members were present during the team pause: Neurosurgery, | | | Anesthesiology, [place] nursing staff. Preoperative Diagnosis: 1. | | | Recurrent intramedullary spinal cord tumor 2. Acute diparesis | | | Postoperative Diagnosis: SAME Procedure Performed: 1. RIGHT | | | T9-T10 hemilaminectomy for resection of intramedullary spinal cord | | | tumor 2. Use of high powered intraoperative microscope 3. | | | Intraoperative neuromonitoring using MEP Estimated Blood Loss: | | | 150 mL Fluids: see anesthesia record Specimens: | | | intramedullary spinal cord tumor sent for permanent section | | | Complications: none Drains: none Disposition: PACU | | | Findings: Significant amount of tumor resected. Cord | | | decompressed. IRajinder MD was scrubbed and actively | | | participated performing the critical portions of the operation. | | | | | + + + CAPILLARY BLOOD GLUCOSE (NO CHG), POC (09/10/2015 9:16 AM PST) + +---------+ + + + | Component | Value | Ref Range | Performed | Pathologist | | | | | At | Signature | + +---------+ + + + | BLOOD | 118 (H) | 60 - 99 mg/dL | [facility] | | | [facility]SE, | | | [facility] | | | POC | | | [facility] | | | | | | OF CARE | | | | | | TESTS | | + +---------+ + + + + + | Specimen | + + | | + + + + + + + | Performing | Address | City/State/Zipcode | Phone Number | | Organization | | | | + + + + + | [facility] | [address] | [place], [place] | | | [facility] | [address] | [phone] | | | TESTS | | | | + + + + + CBC (HEMOGRAM) ONLY (09/10/2015 3:29 AM PST) + + + + + + | Component | Value | Ref Range | Performed | Pathologist | | | | | At | Signature | + + + + + + | WHITE CELL | 9.12 | 4.40 - 11.00 | [facility] | | | COUNT | | K/cu mm | LABORATORY | | | | | | SERVICES, | | | | | | CORE | | + + + + + + | RED CELL | 4.66 | 4.00 - 5.20 | [facility] | | | COUNT | | M/cu mm | LABORATORY | | | | | | SERVICES, | | | | | | CORE | | + + + + + + | HEMOGLOBIN | 11.8 (L) | 12.0 - 16.0 | [facility] | | | | | g/dL | LABORATORY | | | | | | SERVICES, | | | | | | CORE | | + + + + + + | HEMATOCRIT | 37.0 | 36.0 - 46.0 % | [facility] | | | | | | LABORATORY | | | | | | SERVICES, | | | | | | CORE | | + + + + + + | MCV | 79.4 (L) | 80.0 - 96.0 fL | [facility] | | | | | | LABORATORY | | | | | | SERVICES, | | | | | | CORE | | + + + + + + | MCHC | 31.9 | 33.0 - 35.5 | [facility] | | | | | g/dL | LABORATORY | | | | | | SERVICES, | | | | | | CORE | | + + + + + + | RDW SD | 44.2 | 35.1 - 46.3 fL | [facility] | | | | | | LABORATORY | | | | | | SERVICES, | | | | | | CORE | | + + + + + + | PLATELET | 333 | 150 - 400 K/cu | [facility] | | | COUNT | | mm | LABORATORY | | | | | | SERVICES, | | | | | | CORE | | + + + + + + | MPV | 10.3 | 9.7 - 12.3 fL | [facility] | | | | | | LABORATORY | | | | | | SERVICES, | | | | | | CORE | | + + + + + + | NRBC% | 0.0 | 0.0 - 0.3 % | [facility] | | | | | | LABORATORY | | | | | | SERVICES, | | | | | | CORE | | + + + + + + | NRBC# | 0.00 | 0.00 - 0.02 | [facility] | | | | | K/cu mm | LABORATORY | | | | | | SERVICES, | | | | | | CORE | | + + + + + + + + | Specimen | + + | Blood - Blood | | (substance) | + + + + + + + | Performing | Address | City/State/Zipcode | Phone Number | | Organization | | | | + + + + + | [facility] | [address] | [place] [address] | | | SERVICES, CORE | [address] | | | + + + + + RENAL FUNCTION SET (NA,K,CL,CO2,BUN,CREAT,GLUC,CA,PHOS,ALB ) (09/10/2015 3:29 AM PST) + +---------+ + + + | Component | Value | Ref Range | Performed | Pathologist | | | | | At | Signature | + +---------+ + + + | GLUCOSE, | 131 (H) | 60 - 99 mg/dL | [facility] | | | PLASMA | | | LABORATORY | | | (LAB) | | | SERVICES, | | | | | | CORE | | + +---------+ + + + | BUN, PLASMA | 8 | 6 - 20 mg/dL | [facility] | | | (LAB) | | | LABORATORY | | | | | | SERVICES, | | | | | | CORE | | + +---------+ + + + | CREATININE | 0.62 | 0.60 - 1.10 | [facility] | | | PLASMA | | mg/dL | LABORATORY | | | (LAB) | | | SERVICES, | | | | | | CORE | | + +---------+ + + + | EGFR | >60 | >60 mL/min | [facility] | | | - | | | LABORATORY | | | CHADIAN | | | SERVICES, | | | | | | CORE | | + +---------+ + + + | EGFR NON | >60 | >60 mL/min | [facility] | | | -LEXIE | | | LABORATORY | | | RICAN | | | SERVICES, | | | | | | CORE | | + +---------+ + + + | SODIUM, | 141 | 136 - 145 | [facility] | | | PLASMA | | mmol/L | LABORATORY | | | (LAB) | | | SERVICES, | | | | | | CORE | | + +---------+ + + + | POTASSIUM, | 4.0 | 3.4 - 5.0 | [facility] | | | PLASMA | | mmol/L | LABORATORY | | | (LAB) | | | SERVICES, | | | | | | CORE | | + +---------+ + + + | CHLORIDE, | 110 (H) | 97 - 108 mmol/L | [facility] | | | PLASMA | | | LABORATORY | | | (LAB) | | | SERVICES, | | | | | | CORE | | + +---------+ + + + | TOTAL CO2, | 23 | 21 - 32 mmol/L | [facility] | | | PLASMA | | | LABORATORY | | | (LAB) | | | SERVICES, | | | | | | CORE | | + +---------+ + + + | CALCIUM, | 8.5 (L) | 8.6 - 10.2 | [facility] | | | PLASMA | | mg/dL | LABORATORY | | | (LAB) | | | SERVICES, | | | | | | CORE | | + +---------+ + + + | ALBUMIN, | 3.1 (L) | 3.5 - 4.7 g/dL | [facility] | | | PLASMA | | | LABORATORY | | | (LAB) | | | SERVICES, | | | | | | CORE | | + +---------+ + + + | PHOSPHORUS, | 2.9 | 2.4 - 4.7 mg/dL | [facility] | | | PLASMA | | | LABORATORY | | | (LAB) | | | SERVICES, | | | | | | CORE | | + +---------+ + + + | POTASSIUM | No Hemo | | [facility] | | | CMNT | | | LABORATORY | | | | | | SERVICES, | | | | | | CORE | | + +---------+ + + + | ANION GAP | 8 | mmol/L | [facility] | | | | | | LABORATORY | | | | | | SERVICES, | | | | | | CORE | | + +---------+ + + + | ANION | 10 | 4 - 11 mmol/L | [facility] | | | GAP(ALB | | | LABORATORY | | | CORRECTED) | | | SERVICES, | | | | | | CORE | | + +---------+ + + + + + | Specimen | + + | Blood - Blood | | (substance) | + + + + + | Narrative | Performed At | + + + | GFR is estimated using the MDRD equation recommended by the | [facility] | | National Kidney Disease Education Program. Estimated GFR | LABORATORY | | Interpretive Information: <60 mL/min/1.73 sq m | SERVICES, CORE | | Chronic Kidney Disease <15 mL/min/1.73 sq m | | | Kidney Failure Estimated GFR greater that 60 mL/min/1.73 sq m is of | | | limited clinical value. The MDRD equation is not valid in the | | | following situations: - Patients under 18 years of age - Severe | | | malnutrition or obesity - Vegetarian diet - Rapidly changing kidney | | | function | | + + + + + + + + | Performing | Address | City/State/Zipcode | Phone Number | | Organization | | | | + + + + + | [facility] | [address] | [place] [address] | | | SERVICES, [place] | [address] | | | + + + + + CARDIOLOGY (09/10/2015 12:00 AM PST) + + + | Narrative | Performed At | + + + | | | + + + CARDIOLOGY (09/10/2015 12:00 AM PST) + + + | Narrative | Performed At | + + + | | | + + + CARDIOLOGY (09/10/2015 12:00 AM PST) + + + | Narrative | Performed At | + + + | | | + + + RAINBOW HOLD TUBE - RED TOP (09/09/2015 6:35 PM PST) + + | Specimen | + + | Blood - Blood | | (substance) | + + + + + + + | Performing | Address | City/State/Zipcode | Phone Number | | Organization | | | | + + + + + | [facility] | [address] | [place] [address] | | | SERVICES, [place] | [address] | | | + + + + + ANTIBODY SCREEN (09/09/2015 6:35 PM PST) + + + + + + | Component | Value | Ref Range | Performed | Pathologist | | | | | At | Signature | + + + + + + | Antibody | Negative | | [facility] | | | Screen | | | LABORATORY | | | | | | SERVICES, | | | | | | TRANSFUSION | | | | | | MEDICINE | | + + + + + + + + | Specimen | + + | Blood - Blood | + + + + + + + | Performing | Address | City/State/Zipcode | Phone Number | | Organization | | | | + + + + + | [facility] | [address] | [place] [address] | | | SERVICES, | [address] | | | | TRANSFUSION MEDICINE | | | | + + + + + ABO & RH TYPE (09/09/2015 6:35 PM PST) + + + + + + | Component | Value | Ref Range | Performed | Pathologist | | | | | At | Signature | + + + + + + | ABO Group | O | | [facility] | | | | | | LABORATORY | | | | | | SERVICES, | | | | | | TRANSFUSION | | | | | | MEDICINE | | + + + + + + | Rh Type | Positive | | [facility] | | | | | | LABORATORY | | | | | | SERVICES, | | | | | | TRANSFUSION | | | | | | MEDICINE | | + + + + + + + + | Specimen | + + | Blood - Blood | + + + + + + + | Performing | Address | City/State/Zipcode | Phone Number | | Organization | | | | + + + + + | [facility] | [address] | [place] [address] | | | SERVICES, | [address] | | | | TRANSFUSION MEDICINE | | | | + + + + + CBC (HEMOGRAM) ONLY (09/09/2015 6:35 PM PST) + + + + + + | Component | Value | Ref Range | Performed | Pathologist | | | | | At | Signature | + + + + + + | WHITE CELL | 11.21 (H) | 4.40 - 11.00 | [facility] | | | COUNT | | K/cu mm | LABORATORY | | | | | | SERVICES, | | | | | | CORE | | + + + + + + | RED CELL | 4.67 | 4.00 - 5.20 | [facility] | | | COUNT | | M/cu mm | LABORATORY | | | | | | SERVICES, | | | | | | CORE | | + + + + + + | HEMOGLOBIN | 12.1 | 12.0 - 16.0 | [facility] | | | | | g/dL | LABORATORY | | | | | | SERVICES, | | | | | | CORE | | + + + + + + | HEMATOCRIT | 36.6 | 36.0 - 46.0 % | [facility] | | | | | | LABORATORY | | | | | | SERVICES, | | | | | | CORE | | + + + + + + | MCV | 78.4 (L) | 80.0 - 96.0 fL | [facility] | | | | | | LABORATORY | | | | | | SERVICES, | | | | | | CORE | | + + + + + + | MCHC | 33.1 | 33.0 - 35.5 | [facility] | | | | | g/dL | LABORATORY | | | | | | SERVICES, | | | | | | CORE | | + + + + + + | RDW SD | 43.4 | 35.1 - 46.3 fL | [facility] | | | | | | LABORATORY | | | | | | SERVICES, | | | | | | CORE | | + + + + + + | PLATELET | 299 | 150 - 400 K/cu | [facility] | | | COUNT | | mm | LABORATORY | | | | | | SERVICES, | | | | | | CORE | | + + + + + + | MPV | 10.1 | 9.7 - 12.3 fL | [facility] | | | | | | LABORATORY | | | | | | SERVICES, | | | | | | CORE | | + + + + + + | NRBC% | 0.0 | 0.0 - 0.3 % | [facility] | | | | | | LABORATORY | | | | | | SERVICES, | | | | | | CORE | | + + + + + + | NRBC# | 0.00 | 0.00 - 0.02 | [facility] | | | | | K/cu mm | LABORATORY | | | | | | SERVICES, | | | | | | CORE | | + + + + + + + + | Specimen | + + | Blood - Blood | | (substance) | + + + + + + + | Performing | Address | City/State/Zipcode | Phone Number | | Organization | | | | + + + + + | [facility] | [address] | [place] [address] | | | SERVICES, CORE | [address] | | | + + + + + APTT (ACT. PART. THROMBO TIME) (09/09/2015 6:35 PM PST) + + + + + + | Component | Value | Ref Range | Performed | Pathologist | | | | | At | Signature | + + + + + + | APTT | 39.6 (H) | 26.0 - 36.0 | [facility] | | | | | seconds | LABORATORY | | | | | | SERVICES, | | | | | | CORE | | + + + + + + + + | Specimen | + + | Blood - Blood | | (substance) | + + + + + | Narrative | Performed At | + + + | APTT Therapeutic Range: (75 - | [facility] | | 120) sec Heparin levels of 0.35 - 0.7 U/mL | LABORATORY | | | SERVICES, CORE | + + + + + + + + | Performing | Address | City/State/Zipcode | Phone Number | | Organization | | | | + + + + + | [facility] | [address] | [place] [address] | | | SERVICES, CORE | [address] | | | + + + + + INR (09/09/2015 6:35 PM PST) + +-------+ + + + | Component | Value | Ref Range | Performed | Pathologist | | | | | At | Signature | + +-------+ + + + | INR | 1.15 | 0.90 - 1.20 INR | [facility] | | | | | | LABORATORY | | | | | | SERVICES, | | | | | | CORE | | + +-------+ + + + + + | Specimen | + + | Blood - Blood | | (substance) | + + + + + | Narrative | Performed At | + + + | INR Therapeutic ranges for full anticoagulation: INR for | [facility] | | Venous Thromboembolism (2.0 - 3.0) INR INR for | LABORATORY | | most patients with mech. valves (2.5 - 3.5) INR | SERVICES, CORE | + + + + + + + + | Performing | Address | City/State/Zipcode | Phone Number | | Organization | | | | + + + + + | [facility] | [address] | [place] [address] | | | SERVICES, CORE | [address] | | | + + + + + BASIC METABOLIC SET (NA, K, CL, TCO2, BUN, CR, GLU, CA) (09/09/2015 6:35 PM PST) + +---------+ + + + | Component | Value | Ref Range | Performed | Pathologist | | | | | At | Signature | + +---------+ + + + | GLUCOSE, | 98 | 60 - 99 mg/dL | [facility] | | | PLASMA | | | LABORATORY | | | (LAB) | | | SERVICES, | | | | | | CORE | | + +---------+ + + + | BUN, PLASMA | 8 | 6 - 20 mg/dL | [facility] | | | (LAB) | | | LABORATORY | | | | | | SERVICES, | | | | | | CORE | | + +---------+ + + + | CREATININE | 0.70 | 0.60 - 1.10 | [facility] | | | PLASMA | | mg/dL | LABORATORY | | | (LAB) | | | SERVICES, | | | | | | CORE | | + +---------+ + + + | EGFR | >60 | >60 mL/min | [facility] | | | - | | | LABORATORY | | | CHADIAN | | | SERVICES, | | | | | | CORE | | + +---------+ + + + | EGFR NON | >60 | >60 mL/min | [facility] | | | -LEXIE | | | LABORATORY | | | RICAN | | | SERVICES, | | | | | | CORE | | + +---------+ + + + | SODIUM, | 139 | 136 - 145 | [facility] | | | PLASMA | | mmol/L | LABORATORY | | | (LAB) | | | SERVICES, | | | | | | CORE | | + +---------+ + + + | POTASSIUM, | 3.5 | 3.4 - 5.0 | [facility] | | | PLASMA | | mmol/L | LABORATORY | | | (LAB) | | | SERVICES, | | | | | | CORE | | + +---------+ + + + | CHLORIDE, | 108 | 97 - 108 mmol/L | [facility] | | | PLASMA | | | LABORATORY | | | (LAB) | | | SERVICES, | | | | | | CORE | | + +---------+ + + + | TOTAL CO2, | 21 | 21 - 32 mmol/L | [facility] | | | PLASMA | | | LABORATORY | | | (LAB) | | | SERVICES, | | | | | | CORE | | + +---------+ + + + | CALCIUM, | 8.1 (L) | 8.6 - 10.2 | [facility] | | | PLASMA | | mg/dL | LABORATORY | | | (LAB) | | | SERVICES, | | | | | | CORE | | + +---------+ + + + | ANION GAP | 10 | mmol/L | [facility] | | | | | | LABORATORY | | | | | | SERVICES, | | | | | | CORE | | + +---------+ + + + | POTASSIUM | No Hemo | | [facility] | | | CMNT | | | LABORATORY | | | | | | SERVICES, | | | | | | CORE | | + +---------+ + + + + + | Specimen | + + | Blood - Blood | | (substance) | + + + + + | Narrative | Performed At | + + + | GFR is estimated using the MDRD equation recommended by the | [facility] | | National Kidney Disease Education Program. Estimated GFR | LABORATORY | | Interpretive Information: <60 mL/min/1.73 sq m | SERVICES, CORE | | Chronic Kidney Disease <15 mL/min/1.73 sq m | | | Kidney Failure Estimated GFR greater that 60 mL/min/1.73 sq m is of | | | limited clinical value. The MDRD equation is not valid in the | | | following situations: - Patients under 18 years of age - Severe | | | malnutrition or obesity - Vegetarian diet - Rapidly changing kidney | | | function | | + + + + + + + + | Performing | Address | City/State/Zipcode | Phone Number | | Organization | | | | + + + + + | [facility] | [address] | [place] [address] | | | SERVICES, [facility] | [address] | | | + + + + + INTRAOPERATIVE NEURO MONITORING (09/09/2015) + + + | Narrative | Performed At | + + + | Patient Name: Matt Fagan Date of : 1990 | | | Date of Test: 09/09/2015 Place of | | | Service: IP Intra Op [id number] - [id number] INTRAOPERATIVE NEURO | | | MONITORING History: This is a 24 y.o. female patient with a | | | history of spinal cord who was admitted for T9/10 laminectomy for | | | tumor resection. Conditions of Recording: To obtain transcranial | | | electrical motor evoked potentials, trains of 6 pulses with an | | | individual pulse duration of 0.5 ms and an interstimulus interval of | | | 4 ms were delivered over the bilateral central regions of the scalp. | | | Description of recording: Following transcranial stimulation, | | | there were reproducible EMG responses from the upper extremity | | | muscles bilaterally. The bilateral lower extremity responses were | | | poorly formed with very small amplitude at baseline. | | | Intraoperative interpretation was performed using real-time display | | | of intraoperative neurophysiologic recordings for 3 hours 2 minutes | | | (20:47-23:49). Dr. Peace was continuously available for | | | communication with the recording technologist and the operative team | | | during this time. Impression: Poorly formed, low amplitude | | | bilateral lower extremity MEP responses at baseline. No other | | | significant changes during the procedure. Filipe Peace M.D. 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 No high | | | | | | grade features are | | | | | | demonstrated. Case | | | | | | seen by:Jean Pierre Cook, | | | | | | M.D. / Neuropathology | | | | | | fellowS. Humayun | | | | | | Gultekin, M.D. / | | | | | | NeuropathologistT: | | | | | | 09/14/2015 oe | | | | | | Immunohistochemical | | | | | | stains are performed on | | | | | | formalin-fixed, | | | | | | paraffinembedded tissue, | | | | | | using a biotin-free | | | | | | protocol that includes | | | | | | appropriatepositive and | | | | | | negative controls. | | | | | | Block [id number]: | | | | | | Tumor cells | | | | | | Marker Result | | | | | | CommentGlial | | | | | | Fibrillary Acidic | | | | | | Protein | | | | | | PositiveVimentin | | | | | | [id number] % | | | | | | Positive 1%p53 | | | | | | NegativePhosphoHistone | | | | | | 3, mitotic marker | | | | | | NegativeIDH1 (R132H; | | | | | | Mutation Specific | | | | | | Antibody) | | | | | | NegativeOlig 2 | | | | | | PositiveNeuronal | | | | | | nuclei | | | | | | NegativeNeurofilament | | | | | | NegativeNeurofilament, | | | | | | Low Molecular Weight | | | | | | NegativeChromogranin | | | | | | | | | | | | NegativeSynaptophysin | | | | | | Equivocal patchy faint | | | | | | staining | | | | | | (Analyte | | | | | | specific reagents are | | | | | | used in many laboratory | | | | | | tests necessary | | | | | | forstandard medical | | | | | | care. This test was | | | | | | developed and its | | | | | | performancecharacteristi | | | | | | cs determined by [facility] | | | | | [facility]. It has | | | | | | not been clearedor | | | | | | approved by the [place] Food | | | | | | and Drug Administration | | | | | | (FDA). FDA does | | | | | | notrequire this test to | | | | | | go through premarket FDA | | | | | | review. This test is | | | | | | usedfor clinical | | | | | | purposes. It should | | | | | | not be regarded as | | | | | | investigational or | | | | | | forresearch. This | | | | | | laboratory is certified | | | | | | under the Clinical | | | | | | LaboratoryImprovement | | | | | | Amendments (CLIA) as | | | | | | qualified to perform | | | | | | high complexityclinical | | | | | | laboratory testing.) | | | | | | Clinical History:The | | | | | | patient is a 24-year-old | | | | | | female. 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 Gross | | | | | | Description:Received is | | | | | | 1 specimen in formalin | | | | | | in a container labeled | | | | | | with the patientname | | | | | | (initials RE) and | | | | | | "intramedullary spinal | | | | | | cord tumor." Received | | | | | | aremultiple fragments of | | | | | | moctezuma-brown tissue | | | | | | measuring 0.3 x 0.2 x | | | | | | 0.2 cm inaggregate. | | | | | | The entire specimen is | | | | | | submitted. | | | | | | Cassette Index:[id number] | | | | | | My electronic | | | | | | signature indicates that | | | | | | I have personally | | | | | | reviewed alldiagnostic | | | | | | slides, the gross and/or | | | | | | microscopic portion of | | | | | | thisreport and | | | | | | formulated the final | | | | | | diagnosis. | | | | | | Rendering Diagnostician: | | | | | | Ashanti Bravo | | | | | | MattPathologistKaeli | | | | | | thomas Signed 09/14/2015 | | | | | | 3:04PM | | | | + + + + + + + + | Specimen | + + | | + + + + + | Narrative | Performed At | + + + | | | + + + + + + + + | Performing | Address | City/State/Zipcode | Phone Number | | Organization | | | | + + + + + | [facility] | [address] | [place] [address] | | | PATHOLOGY | [address] | | | + + + + + documented in this encounter Visit Diagnoses + + | Diagnosis | + + | Spinal cord tumor - Primary Neoplasm of unspecified nature of endocrine glands and | | other parts of nervous system | + + | 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, soft tissue, and skin | + + | Acute post-operative pain | + + | At risk for constipation Other specified conditions influencing health status | + + | At risk for venous thromboembolism | + + documented in this encounter Administered Medications + +--------+ +--------+------+------+ | Medication Order | MAR | Action | Dose | Rate | Site | | | Action | Date | | | | + +--------+ +--------+------+------+ | acetaminophen (TYLENOL) tablet | Given | 09/15/19 | 650 mg | | | | 650 mg 650 mg, oral, EVERY 6 | | 16 8:43 | | | | | HOURS, First dose on Sun09/10/15 | | AM PST | | | | | at 0300, Until Discontinued | | | | | | + +--------+ +--------+------+------+ +-------+ +--------+---+---+ | Given | 09/15/19 | 650 mg | | | | | 16 3:05 | | | | | | AM PST | | | | +-------+ +--------+---+---+ | Given | 09/14/19 | 650 mg | | | | | 16 9:24 | | | | | | PM PST | | | | +-------+ +--------+---+---+ +---+---+ | | | +---+---+ + +-------+ +-------+---+---+ | baclofen (LIORESAL) tablet 10 | Given | 09/10/19 | 10 mg | | | | mg 10 mg, oral, THREE TIMES | | 16 9:51 | | | | | DAILY, First dose on Sun09/10/15 | | AM PST | | | | | at 0230, Until Discontinued | | | | | | + +-------+ +-------+---+---+ +-------+ +-------+---+---+ | Given | 09/10/19 | 10 mg | | | | | 16 2:46 | | | | | | AM PST | | | | +-------+ +-------+---+---+ +---+---+ | | | +---+---+ + +-------+ +-------+---+---+ | baclofen (LIORESAL) tablet 10 | Given | 09/15/19 | 10 mg | | | | mg 10 mg, oral, THREE TIMES | | 16 12:01 | | | | | DAILY, First dose (after last | | PM PST | | | | | modification) on Sun09/10/15 at | | | | | | | 1330, Until Discontinued | | | | | | + +-------+ +-------+---+---+ +-------+ +-------+---+---+ | Given | 09/15/19 | 10 mg | | | | | 16 8:44 | | | | | | AM PST | | | | +-------+ +-------+---+---+ | Given | 09/14/19 | 10 mg | | | | | 16 5:14 | | | | | | PM PST | | | | +-------+ +-------+---+---+ +---+---+ | | | +---+---+ + +-------+ +-------+---+---+ | baclofen (LIORESAL) tablet 15 | Given | 09/14/19 | 15 mg | | | | mg 15 mg, oral, AT BEDTIME, | | 16 9:24 | | | | | First dose (after last | | PM PST | | | | | modification) on Sun09/10/15 at | | | | | | | 2200, Until Discontinued | | | | | | + +-------+ +-------+---+---+ +-------+ +-------+---+---+ | Given | 09/13/19 | 15 mg | | | | | 16 9:41 | | | | | | PM PST | | | | +-------+ +-------+---+---+ | Given | 09/12/19 | 15 mg | | | | | 16 9:30 | | | | | | PM PST | | | | +-------+ +-------+---+---+ +---+---+ | | | +---+---+ + +-------+ +------+---+---+ | bisacodyl EC (DULCOLAX) tablet | Given | 09/15/19 | 5 mg | | | | 5 mg 5 mg, oral, DAILY, First | | 16 8:43 | | | | | dose on Sun09/14/15 at 0900, Until | | AM PST | | | | | Discontinued | | | | | | + +-------+ +------+---+---+ +-------+ +------+---+---+ | Given | 09/14/19 | 5 mg | | | | | 16 1:14 | | | | | | PM PST | | | | +-------+ +------+---+---+ +---+---+ | | | +---+---+ + +---------+ +-----+---+---+ | ceFAZolin (ANCEF) 2 g in NaCl | New Bag | 09/10/19 | 2 g | | | | 0.9 % IV 2 g, intravenous, EVERY | | 16 10:00 | | | | | 8 HOURS, 3 doses, First dose on | | PM PST | | | | | Sun09/10/15 at 0500, Last dose on | | | | | | | Sun09/10/15 at 2100 | | | | | | + +---------+ +-----+---+---+ +---------+ +-----+---+---+ | New Bag | 09/10/19 | 2 g | | | | | 16 1:53 | | | | | | PM PST | | | | +---------+ +-----+---+---+ | New Bag | 09/10/19 | 2 g | | | | | 16 5:08 | | | | | | AM PST | | | | +---------+ +-----+---+---+ +---+---+ | | | +---+---+ + +-------+ +------+---+---+ | dexamethasone (DECADRON) tablet | Given | 09/13/19 | 4 mg | | | | 4 mg 4 mg, oral, EVERY 6 HOURS, | | 16 2:14 | | | | | First dose on Sun09/10/15 at | | PM PST | | | | | 0230, Until Discontinued | | | | | | + +-------+ +------+---+---+ +-------+ +------+---+---+ | Given | 09/13/19 | 4 mg | | | | | 16 8:40 | | | | | | AM PST | | | | +-------+ +------+---+---+ | Given | 09/13/19 | 4 mg | | | | | 16 3:15 | | | | | | AM PST | | | | +-------+ +------+---+---+ +---+---+ | | | +---+---+ + +-------+ +------+---+---+ | dexamethasone (DECADRON) tablet | Given | 09/14/19 | 4 mg | | | | 4 mg 4 mg, oral, EVERY 6 HOURS, | | 16 4:02 | | | | | 4 doses, First dose on Mon | | PM PST | | | | | 09/13/15 at 2000, Last dose on Sun | | | | | | | 16 at 1600 | | | | | | + +-------+ +------+---+---+ +-------+ +------+---+---+ | Given | 09/14/19 | 4 mg | | | | | 16 10:07 | | | | | | AM PST | | | | +-------+ +------+---+---+ | Given | 09/14/19 | 4 mg | | | | | 16 3:25 | | | | | | AM PST | | | | +-------+ +------+---+---+ +---+---+ | | | +---+---+ + +-------+ +------+---+---+ | dexamethasone (DECADRON) tablet | Given | 09/15/19 | 4 mg | | | | 4 mg 4 mg, oral, EVERY 8 HOURS, | | 16 12:01 | | | | | 3 doses, First dose on Sun | | PM PST | | | | | 09/14/15 at 2200, Last dose on Sun | | | | | | | 09/15/15 at 1400 | | | | | | + +-------+ +------+---+---+ +-------+ +------+---+---+ | Given | 09/15/19 | 4 mg | | | | | 16 5:25 | | | | | | AM PST | | | | +-------+ +------+---+---+ | Given | 09/14/19 | 4 mg | | | | | 16 9:24 | | | | | | PM PST | | | | +-------+ +------+---+---+ +---+---+ | | | +---+---+ + +-------+ +-------+---+---+ | diphenhydrAMINE (BENADRYL) | Given | 09/14/19 | 25 mg | | | | capsule 25 mg 25 mg, oral, EVERY | | 16 11:00 | | | | | 4 HOURS NEEDED, Starting Sat | | PM PST | | | | | 09/11/15 at 0153, Until 09/15/15 | | | | | | | at 1839, itching | | | | | | + +-------+ +-------+---+---+ +-------+ +-------+---+---+ | Given | 09/14/19 | 25 mg | | | | | 16 6:43 | | | | | | AM PST | | | | +-------+ +-------+---+---+ | Given | 09/14/19 | 25 mg | | | | | 16 12:49 | | | | | | AM PST | | | | +-------+ +-------+---+---+ +---+---+ | | | +---+---+ + +---------+ +---------+---+---+ | diphenhydrAMINE (BENADRYL) | New Bag | 09/10/19 | 12.5 mg | | | | injection 12.5-25 mg 12.5-25 mg, | | 16 12:45 | | | | | intravenous, ONCE, 1 dose, Fri | | AM PST | | | | | 09/10/15 at 0115 | | | | | | + +---------+ +---------+---+---+ + +---+ | | | + +---+ | diphenhydrAMINE (BENADRYL) | | | injection 1 dose, Starting Fri | | | 09/10/15 at 0042, Until 09/10/15 | | | at 0045 | | + +---+ | | | + +---+ + +-------+ +-------+---+---+ | enoxaparin (LOVENOX) injection | Given | 09/14/19 | 40 mg | | | | 40 mg 40 mg, subcutaneous, EVERY | | 16 9:24 | | | | | EVENING, First dose on Sat | | PM PST | | | | | 09/11/15 at 2100, Until | | | | | | | Discontinued | | | | | | + +-------+ +-------+---+---+ +-------+ +-------+---+---+ | Given | 09/13/19 | 40 mg | | | | | 16 9:41 | | | | | | PM PST | | | | +-------+ +-------+---+---+ | Given | 09/12/19 | 40 mg | | | | | 16 9:30 | | | | | | PM PST | | | | +-------+ +-------+---+---+ +---+---+ | | | +---+---+ + +---------+ +--------+---+---+ | fentaNYL citrate (PF) | New Bag | 09/10/19 | 50 mcg | | | | (SUBLIMAZE) injection 25-50 mcg | | 16 12:20 | | | | | 25-50 mcg, intravenous, | | AM PST | | | | | POSTPROCEDURE PRN, 8 doses, | | | | | | | Starting Miriam 09/09/15 at 2123, | | | | | | | Until Sun09/10/15 at 0135, severe | | | | | | | pain | | | | | | + +---------+ +--------+---+---+ + +---+ | | | + +---+ | fentaNYL citrate (PF) | | | (SUBLIMAZE) injection 1 dose, | | | Starting Sun09/10/15 at 0018, | | | Until Sun09/10/15 at 0020 | | + +---+ | | | + +---+ + +-------+ +--------+---+---+ | gabapentin (NEURONTIN) capsule | Given | 09/10/19 | 300 mg | | | | 300 mg 300 mg, oral, THREE TIMES | | 16 9:50 | | | | | DAILY, First dose on Sun09/10/15 | | AM PST | | | | | at 0230, Until Discontinued | | | | | | + +-------+ +--------+---+---+ +-------+ +--------+---+---+ | Given | 09/10/19 | 300 mg | | | | | 16 2:46 | | | | | | AM PST | | | | +-------+ +--------+---+---+ +---+---+ | | | +---+---+ + +-------+ +--------+---+---+ | gabapentin (NEURONTIN) capsule | Given | 09/14/19 | 300 mg | | | | 300 mg 300 mg, oral, ONCE, 1 | | 16 10:07 | | | | | dose, 09/14/15 at 0930 | | AM PST | | | | + +-------+ +--------+---+---+ +---+---+ | | | +---+---+ + +-------+ +--------+---+---+ | gabapentin (NEURONTIN) capsule | Given | 09/14/19 | 600 mg | | | | 600 mg 600 mg, oral, THREE TIMES | | 16 8:46 | | | | | DAILY, First dose (after last | | AM PST | | | | | modification) on Sun09/10/15 at | | | | | | | 1700, Until Discontinued | | | | | | + +-------+ +--------+---+---+ +-------+ +--------+---+---+ | Given | 09/13/19 | 600 mg | | | | | 16 9:41 | | | | | | PM PST | | | | +-------+ +--------+---+---+ | Given | 09/13/19 | 600 mg | | | | | 16 5:31 | | | | | | PM PST | | | | +-------+ +--------+---+---+ +---+---+ | | | +---+---+ + +-------+ +--------+---+---+ | gabapentin (NEURONTIN) capsule | Given | 09/15/19 | 900 mg | | | | 900 mg 900 mg, oral, THREE TIMES | | 16 8:43 | | | | | DAILY, First dose (after last | | AM PST | | | | | modification) on Sun09/14/15 at | | | | | | | 1700, Until Discontinued | | | | | | + +-------+ +--------+---+---+ +-------+ +--------+---+---+ | Given | 09/14/19 | 900 mg | | | | | 16 9:24 | | | | | | PM PST | | | | +-------+ +--------+---+---+ | Given | 09/14/19 | 900 mg | | | | | 16 5:14 | | | | | | PM PST | | | | +-------+ +--------+---+---+ +---+---+ | | | +---+---+ + +---------+ +--------+---+---+ | HYDROmorphone (DILAUDID) | New Bag | 09/15/19 | 0.5 mg | | | | injection 0.5 mg 0.5 mg, | | 16 12:08 | | | | | intravenous, ONCE, 1 dose, Wed | | AM PST | | | | | 09/15/15 at 0000 | | | | | | + +---------+ +--------+---+---+ +---+---+ | | | +---+---+ + +---------+ +--------+---+---+ | HYDROmorphone (DILAUDID) | New Bag | 09/14/19 | 0.5 mg | | | | injection 0.5-1 mg 0.5-1 mg, | | 16 11:00 | | | | | intravenous, ONCE, 1 dose, Tue | | PM PST | | | | | 09/14/15 at 2200 | | | | | | + +---------+ +--------+---+---+ +---+---+ | | | +---+---+ + +---------+ +------+---+---+ | HYDROmorphone (DILAUDID) | New Bag | 09/14/19 | 1 mg | | | | injection 0.5-2 mg 0.5-2 mg, | | 16 6:08 | | | | | intravenous, EVERY 2 HOURS | | AM PST | | | | | NEEDED, Starting Sun09/10/15 at | | | | | | | 0213, Until Sun09/14/15 at 0911, | | | | | | | moderate pain | | | | | | + +---------+ +------+---+---+ +---------+ +--------+---+---+ | New Bag | 09/14/19 | 1 mg | | | | | 16 12:49 | | | | | | AM PST | | | | +---------+ +--------+---+---+ | New Bag | 09/13/19 | 0.5 mg | | | | | 16 10:37 | | | | | | AM PST | | | | +---------+ +--------+---+---+ +---+---+ | | | +---+---+ + +-------+ +--------+---+---+ | HYDROmorphone (DILAUDID) | Given | 09/10/19 | 0.5 mg | | | | injection 1 dose, Starting Fri | | 16 2:00 | | | | | 09/10/15 at 0141, Until 09/10/15 | | AM PST | | | | | at 0200 | | | | | | + +-------+ +--------+---+---+ +---+---+ | | | +---+---+ + +-------+ +------+---+---+ | HYDROmorphone (DILAUDID) tablet | Given | 09/15/19 | 8 mg | | | | 2-8 mg 2-8 mg, oral, EVERY 3 | | 16 12:00 | | | | | HOURS NEEDED, Starting Fri | | PM PST | | | | | 09/10/15 at 0219, Until 09/15/15 | | | | | | | at 1839, moderate pain | | | | | | + +-------+ +------+---+---+ +-------+ +------+---+---+ | Given | 09/15/19 | 8 mg | | | | | 16 8:40 | | | | | | AM PST | | | | +-------+ +------+---+---+ | Given | 09/15/19 | 2 mg | | | | | 16 5:25 | | | | | | AM PST | | | | +-------+ +------+---+---+ +---+---+ | | | +---+---+ + +-------+ +-------+---+---+ | hydrOXYzine pamoate (VISTARIL) | Given | 09/10/19 | 50 mg | | | | capsule 50 mg 50 mg, oral, EVERY | | 16 5:35 | | | | | 6 HOURS NEEDED, Starting Fri | | AM PST | | | | | 09/10/15 at 0243, Until 09/10/15 | | | | | | | at 1031, itching | | | | | | + +-------+ +-------+---+---+ +---+---+ | | | +---+---+ + +-------+ +---------+---+---+ | insulin lispro (HUMALOG) | Given | 09/12/19 | 4 Units | | | | injection subcutaneous, FOUR | | 16 11:02 | | | | | TIMES DAILY, First dose on Sun | | PM PST | | | | | 09/10/15 at 0800, Until | | | | | | | Discontinued | | | | | | + +-------+ +---------+---+---+ +-------+ +---------+---+---+ | Given | 09/12/19 | 4 Units | | | | | 16 1:35 | | | | | | PM PST | | | | +-------+ +---------+---+---+ | Given | 09/12/19 | 1 Units | | | | | 16 12:49 | | | | | | AM PST | | | | +-------+ +---------+---+---+ +---+---+ | | | +---+---+ + +---------+ + +---+---+ | lactated ringers IV 1,000 mL, | New Bag | 09/10/19 | 1,000 mL | | | | intravenous, ONCE, 1 dose, Fri | | 16 3:49 | | | | | 09/10/15 at 0415 | | AM PST | | | | + +---------+ + +---+---+ +---+---+ | | | +---+---+ + +-------+ +--------+---+---+ | LORazepam (ATIVAN) tablet 0.5 | Given | 09/15/19 | 0.5 mg | | | | mg 0.5 mg, oral, EVERY 6 HOURS | | 16 8:01 | | | | | NEEDED, Starting 09/11/15 at | | AM PST | | | | | 1656, Until 09/15/15 at 1839, | | | | | | | anxiety | | | | | | + +-------+ +--------+---+---+ +-------+ +--------+---+---+ | Given | 09/14/19 | 0.5 mg | | | | | 16 10:23 | | | | | | AM PST | | | | +-------+ +--------+---+---+ | Given | 09/13/19 | 0.5 mg | | | | | 16 2:14 | | | | | | PM PST | | | | +-------+ +--------+---+---+ +---+---+ | | | +---+---+ + +-------+ +--------+---+---+ | magnesium citrate liquid 296 mL | Given | 09/14/19 | 296 mL | | | | 296 mL, oral, DAILY NEEDED, | | 16 3:48 | | | | | Starting Tu09/14/15 at 0915, | | PM PST | | | | | Until Sun09/15/15 at 1839, | | | | | | | constipation | | | | | | + +-------+ +--------+---+---+ +---+---+ | | | +---+---+ + +-------+ +-------+---+---+ | midodrine (PROAMITINE) tablet | Given | 09/10/19 | 10 mg | | | | 10 mg 10 mg, oral, THREE TIMES | | 16 10:00 | | | | | DAILY (NITRO), First dose on Fri | | AM PST | | | | | 09/10/15 at 0215, Until | | | | | | | Discontinued | | | | | | + +-------+ +-------+---+---+ +-------+ +-------+---+---+ | Given | 09/10/19 | 10 mg | | | | | 16 3:06 | | | | | | AM PST | | | | +-------+ +-------+---+---+ +---+---+ | | | +---+---+ + +-------+ + +---+---+ | multivitamin (THERA VITAMIN) 1 | Given | 09/15/19 | 1 tablet | | | | tablet 1 tablet, oral, DAILY, | | 16 8:43 | | | | | First dose on 09/11/15 at 1715, | | AM PST | | | | | Until Discontinued | | | | | | + +-------+ + +---+---+ +-------+ + +---+---+ | Given | 09/14/19 | 1 tablet | | | | | 16 8:46 | | | | | | AM PST | | | | +-------+ + +---+---+ | Given | 09/13/19 | 1 tablet | | | | | 16 9:18 | | | | | | AM PST | | | | +-------+ + +---+---+ +---+---+ | | | +---+---+ + + + +---+ +---+ | NaCl 0.9%-KCl 20 mEq/L IV | Rate/Dos | 09/10/19 | | 50 mL/hr | | | infusion intravenous, | e Change | 16 7:25 | | | | | CONTINUOUS, Starting Miriam 09/09/15 | | AM PST | | | | | at 1830, Until Sun09/15/15 at | | | | | | | 1839, at 0-100 mL/hr | | | | | | + + + +---+ +---+ +---------+ + +-------+---+ | New Bag | 09/10/19 | 1,000 mL | 100 | | | | 16 12:30 | | mL/hr | | | | AM PST | | | | +---------+ + +-------+---+ +---+---+ | | | +---+---+ + +---------+ +------+---+---+ | ondansetron (ZOFRAN) injection | New Bag | 09/10/19 | 4 mg | | | | 4 mg 4 mg, intravenous, EVERY 12 | | 16 2:30 | | | | | HOURS, 2 doses, First dose on | | AM PST | | | | | Miriam 09/09/15 at 1845, Last dose on | | | | | | | 09/10/15 at 0645 | | | | | | + +---------+ +------+---+---+ +---+---+ | | | +---+---+ + +---------+ +------+---+---+ | ondansetron (ZOFRAN) injection | New Bag | 09/15/19 | 4 mg | | | | 4 mg 4 mg, intravenous, EVERY 12 | | 16 3:13 | | | | | HOURS NEEDED, Starting Fri | | AM PST | | | | | 09/10/15 at 1027, Until 09/15/15 | | | | | | | at 1839, nausea/vomiting | | | | | | + +---------+ +------+---+---+ +---------+ +------+---+---+ | New Bag | 09/14/19 | 4 mg | | | | | 16 12:49 | | | | | | AM PST | | | | +---------+ +------+---+---+ | New Bag | 09/13/19 | 4 mg | | | | | 16 11:38 | | | | | | AM PST | | | | +---------+ +------+---+---+ +---+---+ | | | +---+---+ + + + + +--------+---+ | PHENYLEPHrine 50 mg/250 mL (0.2 | Rate/Dos | 09/10/19 | 0.45 | 11.48 | | | mg/mL) IV infusion (ADC) 0.1-2 | e Change | 16 2:06 | mcg/kg/m | mL/hr | | | mcg/kg/min | | AM PST | in | | | | 85 kg (2.55-51 mL/hr), | | | | | | | intravenous, CONTINUOUS, Starting | | | | | | | 09/10/15 at 0045, Until Fri | | | | | | | 09/10/15 at 0135 | | | | | | + + + + +--------+---+ + + + +--------+---+ | Rate/Dose Change | 09/10/19 | 0.52 | 13.26 | | | | 16 2:01 | mcg/kg/m | mL/hr | | | | AM PST | in | | | + + + +--------+---+ | Rate/Dose Change | 09/10/19 | 0.56 | 14.28 | | | | 16 1:57 | mcg/kg/m | mL/hr | | | | AM PST | in | | | + + + +--------+---+ +---+---+ | | | +---+---+ + + + + +-------+---+ | PHENYLEPHrine 50 mg/250 mL (0.2 | Rate/Dos | 09/10/19 | 0.04 | 1.02 | | | mg/mL) IV infusion (ADC) 0.1-2 | e Change | 16 5:36 | mcg/kg/m | mL/hr | | | mcg/kg/min | | AM PST | in | | | | 85 kg (2.55-51 mL/hr), | | | | | | | intravenous, CONTINUOUS, Starting | | | | | | | 09/10/15 at 0245, Until Fri | | | | | | | 09/10/15 at 1031 | | | | | | + + + + +-------+---+ + + + +-------+---+ | Rate/Dose Change | 09/10/19 | 0.08 | 2.04 | | | | 16 5:23 | mcg/kg/m | mL/hr | | | | AM PST | in | | | + + + +-------+---+ | Rate/Dose Change | 09/10/19 | 0.1 | 2.55 | | | | 16 5:14 | mcg/kg/m | mL/hr | | | | AM PST | in | | | + + + +-------+---+ +---+---+ | | | +---+---+ + +-------+ +------+---+---+ | polyethylene glycol (MIRALAX) | Given | 09/15/19 | 34 g | | | | powder 34 g 34 g, oral, TWICE | | 16 8:42 | | | | | DAILY, First dose (after last | | AM PST | | | | | modification) on 09/13/15 at | | | | | | | 1630, Until Discontinued | | | | | | + +-------+ +------+---+---+ +-------+ +------+---+---+ | Given | 09/14/19 | 34 g | | | | | 16 9:24 | | | | | | PM PST | | | | +-------+ +------+---+---+ | Given | 09/14/19 | 34 g | | | | | 16 8:46 | | | | | | AM PST | | | | +-------+ +------+---+---+ +---+---+ | | | +---+---+ + + + +---------+---+---+ | scopolamine (TRANSDERM-SCOPE) | Applied | 09/15/19 | 1 patch | | | | 1.5 mg (1 mg over 3 days) 1 patch | Patch | 16 8:43 | | | | | 1 patch, transdermal, EVERY 72 | | AM PST | | | | | HOURS NEEDED, Starting Sun | | | | | | | 09/12/15 at 0832, Until 09/15/15 | | | | | | | at 1839, nausea | | | | | | + + + +---------+---+---+ + + +---------+---+---+ | Applied Patch | 09/12/19 | 1 patch | | | | | 16 8:47 | | | | | | AM PST | | | | + + +---------+---+---+ +---+---+ | | | +---+---+ + +-------+ + +---+---+ | senna-docusate (SENOKOT S) | Given | 09/13/19 | 1 tablet | | | | 8.6-50 mg 1 tablet 1 tablet, | | 16 9:18 | | | | | oral, TWICE DAILY, First dose on | | AM PST | | | | | Miiram 09/09/15 at 2100, Until | | | | | | | Discontinued | | | | | | + +-------+ + +---+---+ +-------+ + +---+---+ | Given | 09/12/19 | 1 tablet | | | | | 16 9:30 | | | | | | PM PST | | | | +-------+ + +---+---+ | Given | 09/12/19 | 1 tablet | | | | | 16 9:36 | | | | | | AM PST | | | | +-------+ + +---+---+ +---+---+ | | | +---+---+ + +-------+ +---------+---+---+ | senna-docusate (SENOKOT S) | Given | 09/15/19 | 2 | | | | 8.6-50 mg 2 tablet 2 tablet, | | 16 8:44 | tablets | | | | oral, TWICE DAILY, First dose | | AM PST | | | | | (after last modification) on Mon | | | | | | | 09/13/15 at 2100, Until | | | | | | | Discontinued | | | | | | + +-------+ +---------+---+---+ +-------+ +---------+---+---+ | Given | 09/14/19 | 2 | | | | | 16 9:25 | tablets | | | | | PM PST | | | | +-------+ +---------+---+---+ | Given | 09/14/19 | 2 | | | | | 16 8:46 | tablets | | | | | AM PST | | | | +-------+ +---------+---+---+ +---+---+ | | | +---+---+ documented in this encounter
--- OUTSIDE RECORDS SUMMARY | ~2019-06-26 | XMS | Encounter Summary ---
Demographics + + + | Address | [address] | | | [place] [address] | + + + | Home Phone | | + + + | Preferred Language | Unknown | + + + | Marital Status | Single | + + + | Zoroastrian Affiliation | NON | + + + | Race | White | + + + | Ethnic Group | Not or | + + + Author + + + | Author | [facility] | + + + | Organization | [facility] | + + + | Address | [...] Team Providers + +------+ + | Care Service Architect Name | Role | Phone | + +------+ + | Clare Mendoza MD | PCP | | + +------+ + Encounter Details +--------+ + + + + | Date | Type | Department | Care Team | Description | +--------+ + + + + | 10/03/ | Documentati | [facility] at | Raegan Doss, | | | 2017 | on | [facility] [address] | PA-C [address] | | | | | [place] Mailcode: | [place], [place] | | | | | [facility] | [address] | | | | | and [place], | [phone] | | | | | [place] [address] | | | | | | [place], [place] | | | | | | [address] | | | | | | [phone] | | | +--------+ + + + [...]
--- OUTSIDE RECORDS SUMMARY | ~2019-06-26 | XMS | Encounter Summary ---
Demographics + + + | Address | [address] | | | [place] [address] | + + + | Home Phone [...] Author + + + | Author | [facility] | + + + | Organization | [facility] | + + + | [...] Team Providers + +------+ + | Care Helminthology Teacher Name | Role | Phone | [...] | +--------+ + + + + | 06/14/ | Documentati | SOCIAL WORK | Robert, | Social Work Notes | | 2014 | on | [facility] [address] | [address] [address],[place] | | | | | [address] | [address] | | | | | Mailcode: CH6A | [facility] [place] | | | | | [place], [place] | [place], [place] | | | | | [address] | [address] | | | | | [phone] | | | +--------+ + + + [...]
--- OUTSIDE RECORDS SUMMARY | ~2019-06-26 | XMS | Encounter Summary ---
Demographics + + + | Address | [address] | | | [place] [address] | + + + | Home Phone | | + + + | Preferred Language | Unknown | + + + | Marital Status | Single | + + + | Temple Affiliation | NON | + + + | Race | White | + + + | Ethnic Group | Not or | + + + Author + + + | Author | [facility] | + + + | Organization | [facility] | + + + | [...] Team Providers + +------+ + | Care Editorial Cartoonist Name | Role | Phone | + +------+ + | No Pcp Per Patient | PCP | Unavailable | + +------+ + Encounter Details +--------+ + + + + | Date | Type | Department | Care Team | Description | +--------+ + + + + | 01/13/ | Procedure | [facility] [address] [facility] [id number] | | | | 2017 | Pass | [address] | | | | | | [place] [facility] | | | | | | Hospital Admitting | | | | | | Desk Located on the | | | | | | 9th floor | | | | | | [place], [place] | | | | | | [address] | | | +--------+ + + + [...]
--- OUTSIDE RECORDS SUMMARY | ~2019-06-26 | XMS | Encounter Summary ---
Demographics + + + | Address | [address] | | | [place] [address] | + + + | Home Phone | | + + + | Preferred Language | Unknown | + + + | Marital Status | Single | + + + | Shinto Affiliation | NON | + + + | Race | White | + + + | Ethnic Group | Not or | + + + Author + + + | Author | [facility] | + + + | Organization | [facility] | + + + | Address [...] Team Providers + +------+ + | Care Probation Supervisor Name | Role | Phone | [...] [facility] | | | | | Spinal cord | Raegan Nieves, | [address] | | | | | tumor | PA-C [address] | | | | | Procedures | [address] | Rd | | | | | MRI SPINE | [place], | Mailcode: | | | | | THORACIC WWO | [place] | [address] | | | | | CONTRAST | [address] | [place] | | | | | [place] [facility], | Phone: | Research | | | | | DORSAL SPINE | [phone] | Center | | | | | COMBO | Fax: | [place], [place] | | | | | | [phone] | [address] | | | | | | | Phone: | | | | | | | [phone] | | | | | | | Fax: | | | | | | | [phone] | +--------+--------+ + + + + Reason for Visit + + + | Reason | Comments | + + + | Postoperative visit | 2 week post-op | + + + Other (Routine) +--------+--------+ + + + + | Status | Reason | Specialty | Diagnoses / | Referred By | Referred To | | | | | Procedures | Contact | Contact | +--------+--------+ + + + + | Closed | | Spine | | Emergency | Luis, | | | | | | Adult Prof | Rajinder Fisher MD | | | | | | [address] | [address] | | | | | | [address] | [address] | | | | | | Rd | [place], [place] | | | | | | [place], [place] | [address] | | | | | | [address] | Phone: | | | | | | | [phone] | | | | | | | Fax: | | | | | | | [phone] | +--------+--------+ + + + + Encounter Details +--------+---------+ + + + | Date | Type | Department | Care Team | Description | +--------+---------+ + + + | 02/14/ | Office | [facility] at | Raegan Doss, | Spinal cord tumor | | 2017 | Visit | [facility] [address] | PA-C [address] | | | | | [place] Mailcode: | [place], [place] | | | | | [facility] | [address] | | | | | and [place], | [phone] | | | | | [address] | | | | | | [place], [place] | | | | | | [address] | | | | | | [phone] | | | +--------+---------+ + + + [...] + + + | Blood Pressure | - | - | | + + + + + | Pulse | - | - | | + + + + + | Temperature | - | - | | + + + + + | Respiratory Rate | - | - | | + + + + + | Oxygen Saturation | - | - | | + + + + + | Inhaled Oxygen | - | - | | | Concentration | | | | + + + + + | Weight | 70.7 kg (155 lb 12.8 | 02/14/2017 2:14 PM | | | | oz) | PDT | | + + + + + | Height | 160 cm (5' 3") | 02/14/2017 2:14 PM | | | | | PDT | | + + + + + | Body Mass Index | 27.6 | 02/14/2017 2:14 PM | | | | | PDT | | + + + + + documented in this encounter Progress Notes Raegan Doss PA-C - 02/14/2017 2:45 PM PDTFormatting of this note might be different f rom the original. Matt Fagan is a 26 y.o. female who is seen in clinic today with her sister and you ng daughter for a routine 4 week post-op visit. 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 Following surgery, she regained most strength back in her RLE and much of her sensation. She discharged to [facility] for several weeks of IPR. She currently reports: Sensation: Continues to have no LT sensation in LLE, does have deep pressure sensation (pre -op baseline). Has no LT sensation in distal half of R foot. LT sensation is intact proximal to mid section of R arch. Motor: Feels generalized weakness in RLE, specifically with picking up her R foot when walk ing. She requires a cane for stability. She uses her wheelchair for long distances. She trip s easily over her R foot and event tripped on her way into the clinic room today. Bowel/bladder: she has to get to the bathroom UMER when she has a sensation to void/defecat e. She had one instance in the same day last week where she was compltely incontinent of bow el and bladder at different times in the same day. This only happened once. Overall, the pain in her thoracic back has been worse during this recovery when compared to her past three surgeries. She gets pain after standing/standing >20minutes or when moving h er arms in a hugging motion. She frequently gets a band-like nerve pain around her thoracic level when very tired. Lying down hurts as well, but generally improves with time. When she was discharged from [facility] multiple medications were missing that she never got fille d including day time baclofen, gabapentin, bowel medications and lidocaine patches. She is working on getting an appt with her PCP for follow up. Ht 1.6 m (5' 3"), Wt 70.7 kg (155 lb 12.8 oz), BMI 27.6 kg/(m^2). PE: Alert, oriented x3. Speech clear, fluent. Gaze conjugate. Face symmetric. No LT sensation on LLE. Loss of LT sensation on RLE in distal foot, but intact from mid arc h proximally. Motor: HF KF KE ADF APF Left 5 5 5 5 5 Right 4+ 5 5 4+ 5 Using a cane to help with ambulation. Impression: 26 y.o. 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 Now s/p T8 and T9 laminectomies for resect ion of recurrent/residual intramedullary spinal cord tumor on 01/13/17 after having acute prog ressive RLE weakness and numbness since 01/10. RLE strength improved post-operatively. Plan: -Rx's printed for patient: gabapentin, baclofen, lidocaine patches, APAP, miralax, senokot -RTC in 3 months with follow up thoracic MRI [facility] [address] [place] [id number] documented in this encounter Plan of Treatment Not on filedocumented as of this encounter Results MRI SPINE [facility] CONTRAST (06/04/2017 2:38 PM PST) + + | Specimen | + + | | + + + + + | Narrative | Performed At | + + + | EXAM: MRI thoracic spine without and with contrast HISTORY: | [facility] | | Spinal cord tumor followup, post multiple resections COMPARISON: | RADIOLOGY VOICE | | Multiple priors, most recent 01/11/17 TECHNIQUE: Multiplanar | RECOGNITION | | multi-sequence MRI thoracic spine without and with gadolinium based | | | intravenous contrast. FINDINGS: Alignment: Normal | | | Marrow: T8 vertebral body now has a small amount of edema signal and | | | enhancement along the posterior cortex, right greater left, of | | | uncertain significance possibly reactive post laminectomies. | | | Spinal cord: Unchanged size of expansile heterogeneous T2 | | | hyperintense lesion from T5-T10 within the spinal cord, with | | | previously seen enhancing nodule not conspicuous on the current study. | | | T6-3 laminectomies, possible partial T9 laminectomy. | | | Paraspinal soft tissues: Expected postsurgical changes posteriorly. | | | IMPRESSION: Stable appearance of spinal cord mass, | | | with the previously seen enhancing nodule no longer well-seen. New | | | edema signal with enhancement along the bilateral posterior aspects | | | of T8 vertebral body, of uncertain significance but possibly reactive. | | | Continued attention on followup imaging is suggested. I have | | | personally reviewed the images and, if necessary, edited the report. | | | I agree with the report as now presented. | | + + + + + | Procedure Note | + + | Service Account, Radiant Res In Interface - 06/04/2017 8:40 PM PST EXAM: MRI | | thoracic spine without and with contrastHISTORY: Spinal cord tumor followup, post | | multiple resectionsCOMPARISON: Multiple priors, most recent 01/11/17 TECHNIQUE: | | Multiplanar multi-sequence MRI thoracic spine without and with gadolinium based | | intravenous contrast.FINDINGS: Alignment: Normal Marrow: T8 vertebral body now has a | | small amount of edema signal and enhancement along the posterior cortex, right greater | | left, of uncertain significance possibly reactive post laminectomies. Spinal cord: | | Unchanged size of expansile heterogeneous T2 hyperintense lesion from T5-T10 within the | | spinal cord, with previously seen enhancing nodule not conspicuous on the current study. | | T6-3 laminectomies, possible partial T9 laminectomy. Paraspinal soft tissues: | | Expected postsurgical changes posteriorly. IMPRESSION:Stable appearance of spinal cord | | mass, with the previously seen enhancing nodule no longer well-seen.New edema signal | | with enhancement along the bilateral posterior aspects of T8 vertebral body, of | | uncertain significance but possibly reactive. Continued attention on followup imaging is | | suggested. I have personally reviewed the images and, if necessary, edited the report. | | I agree with the report as now presented. | | | | | | | |IMPRESSION: | | | |Stable appearance of spinal cord mass, with the previously seen enhancing nodule no longer well-seen. | | | |New edema signal with enhancement along the bilateral posterior aspects of T8 vertebral bod y, of uncertain significance but possibly reactive. Continued attention on followup imaging is suggested. 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
--- OUTSIDE RECORDS SUMMARY | ~2019-06-26 | XMS | Encounter Summary ---
Demographics + + + | Address | [address] | | | [place] [address] | + + + | Home Phone | | + + + | Preferred Language | Unknown | + + + | Marital Status | Single | + + + | Scientology Affiliation | NON | + + + | Race | White | + + + | Ethnic Group | Not or | + + + Author + + + | Author | [facility] | + + + | Organization | [facility] | + + + | Address | [...] Team Providers + +------+ + | Care Hay Sorter Name | Role | Phone | + +------+ + | No Pcp Per Patient | PCP | Unavailable | + +------+ + Reason for Visit +--------+ + | Reason | Comments | +--------+ + | Other | | +--------+ + Encounter Details +--------+ + + + + | Date | Type | Department | Care Team | Description | +--------+ + + + + | 10/01/ | Telephone | Neurosurgery at | Luis, Rajinder J, MD | Other | | 2018 | | [facility] [address] | [address] | | | | | [place] Mailcode: [address] | [place], [place] | | | | | [facility] | [address] | | | | | and Healing, | [phone] | | | | | [facility] | | | | | | Floor [place], [place] | | | | | | [address] | | | | | | [phone] | | | +--------+ + + + [...] physical, mental, or emotional | No | 07/10/2018 | | condition, do you have serious difficulty | | | | doing errands alone such as visiting the | | | | doctor? | | | + + + + + + + + | Cognitive Status | Response | Date of Assessment | + + + + | Because of a physical, mental, or emotional | No | 07/10/2018 | | condition, do you have serious difficulty | | | | concentrating, remembering, or making | | | | decisions? (5 years old or older) | | | + + + + documented as of this encounter Plan of Treatment Not on filedocumented as of this encounter Visit Diagnoses Not on filedocumented in this encounter"
--- OUTSIDE RECORDS SUMMARY | ~2019-06-26 | XMS | Encounter Summary ---
Demographics + + + | Address | [address] | | | [place] [address] | + + + | Home Phone | | + + + | Preferred Language | Unknown | + + + | Marital Status | Single | + + + | Mosque Affiliation | NON | + + + [...] Team Providers + +------+ + | Care Hide And Skin Colerer Name | Role | Phone | + +------+ + | Tiff Chapin | PCP | | + +------+ + Reason for Visit + + + | Reason | Comments | + + + | Physical Therapy | | | Evaluation | | + + + Physical Therapy (Routine) +--------+--------+ + + + + | Status | Reason | Specialty | Diagnoses / | Referred By | Referred To | | | | | Procedures | Contact | Contact | +--------+--------+ + + + + | Closed | | Physical | Diagnoses | Doss, | [facility] | | | | Therapy | Spinal cord | Raegan K, | [address] | | | | | tumor | PA-C [address] | | | | | Procedures | [address] | Mailcode: | | | | | PHYSICAL | [place], | [facility] | | | | | THERAPY | [place] | for Health | | | | | REFERRAL | [address] | and Healing, | | | | | | Phone: | [address], | | | | | | [phone] | [address] | | | | | | Fax: | [place], [place] | | | | | | [phone] | [address] | | | | | | | Phone: | | | | | | | [phone] | | | | | | | Fax: | | | | | | | [phone] | +--------+--------+ + + + + Encounter Details +--------+---------+ + + + | Date | Type | Department | Care Team | Description | +--------+---------+ + + + | 10/19/ | Office | [facility] | Myrna Castelan, | Spinal cord tumor | | 2016 | Visit | Therapy Services at | DPT | (Primary Dx) | | | | [facility] | | | | | | [address] | | | | | | Mailcode: CH3P | | | | | | [facility] | | | | | | and Healing, | | | | | | [address] | | | | | | Floor [place], [place] | | | | | | [address] | | | | | | [phone] | | | +--------+---------+ + + + [...] documented as of this encounter Progress Notes Myrna Castelan DPT - 10/20/2015 2:48 PM PDTFormatting of this note might be different f rom the original. Start of care: 10/20/2015 Date of Onset: 09/15/2015 Referring/Attending Practitioner: Raegan Doss PA-C . 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 female who has been referred to Outpatient Physical Therapy services due to concerns regarding: balance problems, weaknes s, fatigue and decreased mobility. Matt presents to outpatient physical therapy following most recent admission to [facility] following tumor expansion resulting in surgery on 09/09/2015. She was hospitalized in May of 2015 for similar reasons. 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 Pain Rating: none currently Living situation: lives with several family members including her 7 month old daughter Work History: disability ADLs Status: independent IADLs Status: unable to complete Recent Falls: none Equipment patient currently has: cane, manual wheelchair, grab bars, raised toilet seat and bedside commode. Exercise equipment patient has access to: none Anxieties or concerns about therapy: none Patient's Goals: -be able to care for her 7 month old child -walk without fatigue Past Medical History Diagnosis Date Other and unspecified symptoms and signs involving general sensations and perceptions Current Outpatient Prescriptions on File Prior to Visit Medication Sig Dispense Refill acetaminophen 325 mg oral tablet Take 1-2 tablets by mouth every six hours as needed (p ain or fever greater than 38.5 degrees C). (Patient not taking: Reported on 07/12/2015) baclofen 10 mg oral tablet Take 10mg in the AM, 10mg in the afternoon and 10mg in the e vening then 15mg at bedtime. Indications: MUSCLE SPASTICITY OF SPINAL ORIGIN 135 tablet 0 bisacodyl 10 mg rectal suppository Insert 1 suppository rectally once daily as needed f or constipation (for no BM in past 2 days). (Patient not taking: Reported on 07/12/2015) 20 herrera ppository 0 bisacodyl EC 5 mg oral tablet,delayed release (DR/EC) Take 1 tablet by mouth once daily . 60 tablet 0 dexamethasone 2 mg oral tablet Starting at 2200hrs on 09/14: Taking 2mg q8h x 3 doses Then take 2mg q12h x 2 doses Then take 2mg x 1 dose on 09/17 at 0900hrs then stop. (Patient not taking: Reported on 2015) 6 tablet 0 diphenhydrAMINE 25 mg oral capsule Take 1 capsule by mouth every six hours as needed. ( Patient not taking: Reported on 07/12/2015) 60 capsule 0 enoxaparin 40 mg/0.4 mL subcutaneous syringe Inject 0.4 mL under the skin (SUBC) once d aily in the evening. (Patient not taking: Reported on 10/20/2015) 1 mL 0 gabapentin 300 mg oral capsule Take 3 capsules by mouth three times daily. Indications: NEUROPATHIC PAIN 1 capsule 0 HYDROmorphone 2 mg oral tablet Take 1-4 tablets by mouth every three hours as needed fo r moderate pain. 120 tablet 0 LORazepam 0.5 mg oral tablet Take 1 tablet by mouth every six hours as needed for anxie ty. Indications: ANXIETY (Patient not taking: Reported on 10/20/2015) 20 tablet 0 magnesium citrate oral solution Take 296 mL by mouth once daily as needed. (Patient not taking: Reported on 07/12/2015) 296 mL 0 multivitamin oral capsule Take 1 capsule by mouth once daily. polyethylene glycol 17 gram/dose oral powder Take 17 g by mouth once daily as needed (i f no bowel movement in >2 days). (Patient not taking: Reported on 07/12/2015) 119 g 1 scopolamine 1.5 mg (1 mg over 3 days) transdermal patch 3 day Apply 1 patch to skin fracisco ry seventy-two hours as needed (nausea). 1 each 0 senna-docusate 8.6-50 mg oral tablet Take 2 tablets by mouth twice daily as needed (for no bowel movement in >2 days). 15 tablet 1 zolpidem 5 mg oral tablet Take 1 tablet by mouth once daily at bedtime as needed. 20 ta blet 0 No current facility-administered medications on file prior to visit. OBJECTIVE: Posture: forward head in manual wheelchair Observation:patient arrives in manual wheelchair which she uses for longer distances Gait assessment: short step length and increased right side toe out; right side circumducti on and significant hip internal rotation with resulting genu valgus collapse during stance Tone: No spasticity noted this session Negative bilateral clonus Sensation: Impaired to light touch below T6 left>right Reflexes: Left Right Biceps (C5) 2+ 2+ Brachioradialis (C5-6) 2+ 2+ Triceps (C7) NT NT Pateller (L3-4) 3+ 2+ Achilles (S1) 3+ 2+ Strength Screen: Muscle Group Left Right Shoulder Elevation 5/5 5/5 Shoulder Abduction 5/5 5/5 Shoulder External Rotation 5/5 5/5 Shoulder Internal Rotation 5/5 5/5 Elbow Flexion 5/5 5/5 Elbow Extension 5/5 5/5 Wrist Flexion 5/5 5/5 Wrist Extension 5/5 5/5 Thumb abduction 5/5 5/5 Hip Flexion (L2-3) 4/5 4/5 Hip ER 4/5 3/5 Hip IR 4/5 4+/5 Knee Extension (L3-4) 4+/5 4/5 Knee Flexion (L1-2) 4-/5 4/5 Dorsiflexors (L4-5) 4/5 4/5 Plantar flexors (L5-S1) 4/5 4/5 Note 5/5=normal strength *= pain with motion BOLD= concerning Range Of Motion: bilateral upper extremity and lower extremities within functional ROM per upper and lower quarter screen Right ankle decreased mobility (tight) Outcome measure name Score 10/20/2015 Interpretation 5 time sit to stand: 14.5 sec Normal values: 60 to 69 years: 11.4 sec 30 second sit to stand 11 reps Normal values: 30 y/o = 30 reps 25 foot walk test 14.3 seconds with single point cane Household ambulator: 42 sec Limited community ambulator: 13-19 sec Community ambulator: 7.7-9.5 sec Ability to cross the street: < 5.7 sec Timed up and go 18.89 sec with single point cane Normal values ( in seconds) 60-69 year old: 8.1 (7.1-9.0) Predictive values: Community dwelling frail older adults: > 14 associated with high fall risk 2 Minute Walk Test 205 feet No age matched norms Balance: Static Sitting Balance: independent Dynamic Sitting Balance:independent Static Standing Balance:independent without assistance Dynamic Standing Balance: independent without assistance Today's Treatment: Gait training x10 minutes with trekking poles Working to increase efficiency and increase stride length on right Patient/Family Education: -work to increase endurance while walking- both in the community and in her home -trekking poles will serve to increase balance and sensory awareness -needs to start spinal stabilization soon Home exercise program: Intervention Date added Notes Calf stretchng 10/20/2015 Walking with trekking poles 10/20/2015 ASSESSMENT: Matt Fagan is a 24 y.o. female who was most recently discharged from [facility] following t umor expansion and T6-10 hemilaminectomies on 09/09/2015. This was following thoracic intramed ullary mass with laminectomy and resection May 2015. She presents now with bilateral se nsory loss, lower extremity weakness and decreased functional mobility and strength. Taught her to walk with trekking poles this session to improve the efficiency of her gait and provi de increased sensory input. She did very well with this decreasing the time it took to walk 1 lap by 5 seconds. Matt is a great candidate for spinal stabilization training as well as general strength and conditioning. Will resume outpatient physical therapy when she relocat to the [facility]. Impairments are limiting pt's ability to participate in basic ADLs, work, and recreational activities without restrictions. Matt requires services that can be safely and effectivel y performed only by a qualified therapist to address the above mentioned impairments and act ivity limitation. Functional Goals: Date established Patient will perform >20 reps of sit to community integration specialist 30 seconds to demonstrate improved functio nal strength Patient will complete the TUG test in <15 seconds to demonstrate improved functional mobili ty Patient will ambulate 700 feet on the 6-minute walk test to demonstrate improved cardiovasc ular endurance Rehab Potential: Good PLAN: Gait training with trekking poles Endurance and strength training Spinal stability training Frequency and Duration: 1x/week for 10-12 total sessions over the next 3 months Treatment began: 1430 Treatment ended: 1515 Evaluation 15 minutes gait training This note is to serve as the discharge summary if fails to attend further Physical Therapy appointments or contact the therapist regarding any change in their status. Myrna Castelan DPT [facility] 1ST FLOOR [address] [place] Mailcode: [address] [address] Payment Authorization Request and Status Report: [facility] Contact Contact Billing Provider Number: [id number] Therapist Provider Number: [id number] Referring Prescribing Practitioner: Raegan Doss PA-C Primary Diagnosis/ICD-9: ICD-10-CM ICD-9-CM 1. Spinal cord tumor D49.7 239.7 OR PHYS THERAPY EVALUATION OR GAIT TRAINING THERAPY Prescribing Practitioner Provider Number: [facility] Physician [id number]. Outside [facility] Physician: _ Proposed PA Start Date: Date PA is approved. Procedure Codes: Physical Therapy Evaluation 99046 Therapeutic Exercise 41560 Therapeutic Activities 06032 Gait Training 72628 Neuromuscular Reeducation 55247 Modalities Codes: None Minutes per session: 45 Sessions per week: 1 Total number of sessions requested: 12 Total number of units: 36 Is Copy of Prescribing Practitioner's order included with the diagnosis code attached: Yes Is therapy of a maintenance nature: No Prescribing Practitioner Signature: documented in this encounter Plan of Treatment Not on filedocumented as of this encounter Procedures + +--------+ + + + | Procedure Name | Priori | Date/Time | Associated Diagnosis | Comments | | | ty | | | | + +--------+ + + + | OR GAIT TRAINING | Routin | 10/20/2015 | Spinal cord tumor | | | THERAPY | e | 4:06 PM | | | | | | PDT | | | + +--------+ + + + | OR PHYS THERAPY | Routin | 10/20/2015 | Spinal cord tumor | | | EVALUATION | e | 4:06 PM | | | | | | PDT | | | + +--------+ + + + documented in this encounter Visit Diagnoses + + | Diagnosis | + + | 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
--- OUTSIDE RECORDS SUMMARY | ~2019-06-26 | XMS | Encounter Summary ---
Demographics + + + | Address | [address] | | | [place] [address] | + + + | Home Phone | | + + + | Preferred Language | Unknown | + + + | Marital Status | Single | + + + | Mandaeism Affiliation | NON | + + + | Race | White | + + + | Ethnic Group | Not or | + + + Author + + + | Author | [facility] | + + + | Organization | [facility] | + + + | [...] Team Providers + +------+ + | Care Flight Engineer Name | Role | Phone | + +------+ + | Tiff ChapinP | PCP | | + +------+ + Encounter Details +--------+ + + + + | Date | Type | Department | Care Team | Description | +--------+ + + + + | 05/18/ | Documentati | Neurosurgery at | Raegan Doss, | | | 2014 | on | [facility] [address] | [facility] [address] | | | | | [place] Mailcode: CH[address]N | Ave [place], [place] | | | | | [facility] | [address] | | | | | and [place], | [phone] | | | | | [facility] | | | | | | Floor [place], [place] | | | | | | [address] | | | | | | [phone] | | | +--------+ + + + [...]
--- OUTSIDE RECORDS SUMMARY | ~2019-06-26 | XMS | Encounter Summary ---
Demographics + + + | Address | [address] | | | [place] [address] | + + + | Home Phone | | + + + | Preferred Language | Unknown | + + + | Marital Status | Single | + + + | Evangelical Affiliation | NON | + + + [...] Team Providers + +------+ + | Care Logistics Loss Prevention Manager Name | Role | Phone | + [...] | +--------+ + + + + | 09/23/ | Documentati | SOCIAL WORK | Jones, | Social Work Notes | | 2015 | on | [address] | YESY [address] | | | | | [address] | [address] | | | | | Mailcode: CH6A | [facility] | | | | | [place], [place] | [place], [place] | | | | | [address] | [address] | | | | | [phone] | | | +--------+ + + + [...]
--- OUTSIDE RECORDS SUMMARY | ~2019-06-26 | XMS | Encounter Summary ---
Demographics + + + | Address | [address] | | | [place] [address] | + + + | Home Phone | | + + + | Preferred Language | Unknown | + + + | Marital Status | Single | + + + | Mu-Ism Affiliation | NON | + + + | Race | White | + + + | Ethnic Group | Not or | + + + Author + + + | Author | [facility] | + + + | Organization | [facility] | + + + | Address [...] Team Providers + +------+ + | Care Company Pilot Name | Role | Phone | + [...] | +--------+ + + + + | 01/30/ | Documentati | SOCIAL WORK | Pratik Collins, | Care Coordination | | 2017 | on | [address] | [facility] [address] | | | | | [address] | [facility] | | | | | Mailcode: CH6A | [place], [place] | | | | | [place], [place] | [address] | | | | | [address] | [phone] | | | | | [phone] | | | +--------+ + + + [...]
--- OUTSIDE RECORDS SUMMARY | ~2019-06-26 | XMS | Encounter Summary ---
Demographics + + + | Address | [address] | | | [place] [address] | + + + | Home Phone | | + + + | Preferred Language | Unknown | + + + | Marital Status | Single | + + + | Bahai Affiliation | NON | + + + | Race | White | + + + | Ethnic Group | Not or | + + + Author + + + | Author | [facility] | + + + | Organization | [facility] | + + + | Address | Unknown | + + + | Phone | Unavailable | + + + Support + + +---------+ + | Name | Relationship | Address | Phone | + + +---------+ + | Concepcion To | ECON | Unknown | | + + +---------+ + | Judit Worrell | ECON | Unknown | | + + +---------+ + Care Team Providers + +------+ + | Care Hospice Chaplain Name | Role | Phone | + +------+ + | Hannah SosaP | PCP | | + +------+ + Reason for Referral Occupational Therapy (Routine) +--------+--------+ + + + + | Status | Reason | Specialty | Diagnoses / | Referred By | Referred To | | | | | Procedures | Contact | Contact | +--------+--------+ + + + + | Closed | | Occupational | Diagnoses | Carl | | | | | Therapy | Thoracic | Caleb Lang | | | | | | spine tumor | [facility] [address] | | | | | | Procedures | [address] | | | | | | | [place], [place] | | | | | | OCCUPATIONAL | [address] | | | | | | THERAPY | Phone: | | | | | | REFERRAL | [phone] | | | | | | | Fax: | | | | | | | [phone] | | +--------+--------+ + + + + Physical Therapy (Routine) + +--------+ + + + + | Status | Reason | Specialty | Diagnoses / | Referred By | Referred To | | | | | Procedures | Contact | Contact | + +--------+ + + + + | New Request | | Physical | Diagnoses | Henry, | Rona Pt | | | | Therapy | Thoracic | Caleb Lang, | Husam Sanders | | | | | spine tumor | [place] [address] | [address] | | | | | Procedures | [address] | [place] Chatman | | | | | PHYSICAL | [facility] [place] | Mailcode: | | | | | THERAPY | [address] | [facility] | | | | | REFERRAL | Phone: | [facility] | | | | | | [phone] | Husam Sanders, | | | | | | Fax: | [address] floor | | | | | | [phone] | [place], [place] | | | | | | | [address] | | | | | | | Phone: | | | | | | | [phone] | | | | | | | Fax: | | | | | | | [phone] | + +--------+ + + + + Reason for Visit AUTH/CERT +--------+--------+ [...] + + + + | 07/06/ | Hospital | [facility] [address] | April Beck MD | | | 2018 - | Encounter | [address] | [address] | | | | | [id number] [facility] | [facility] | | | 07/12/ | | [facility], | [place], [place] | | | 2018 | | [place] [address] | [address] | | | | | [phone] | [phone] | | | | | | | | | | | | Rajinder Luis MD | | | | | | [address] | | | | | | [place], [place] | | | | | | [address] | | | | | | [phone] | | | | | | | [...] + + + | Blood Pressure | 109/71 | 07/12/2018 3:22 PM | | | | | PST | | + + + + + | Pulse | 61 | 07/12/2018 3:22 PM | | | | | PST | | + + + + + | Temperature | 36.6 C (97.9 F) | 07/12/2018 3:22 PM | | | | | PST | | + + + + + | Respiratory Rate | 16 | 07/12/2018 3:22 PM | | | | | PST | | + + + + + | Oxygen Saturation | 97% | 07/12/2018 3:22 PM | | | | | PST | | + + + + + | Inhaled Oxygen | - | - | | | Concentration | | | | + + + + + | Weight | 68.4 kg (150 lb 12.7 | 07/12/2018 6:00 AM | | | | oz) | PST | | + + + + + | Height | 160 cm (5' 3") | 07/06/2018 1:28 PM | | | | | PST | | + + + + + | Body Mass Index | 26.71 | 07/06/2018 1:28 PM | | | | | PST [...] documented as of this encounter Discharge Summaries Lynn Ferrera PA-C - 07/12/2018 2:09 PM PST INPATIENT PHYSICIAN DISCHARGE SUMMARY Attending Physician: Rajinder Luis MD PCP: PATRIC Flores Admission Date: 07/06/2018 Discharge Date: 07/12/2018 Diagnoses 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: Residual/recurrent low grade glioneuronal tumor Additional Diagnoses: Increased right lower extremity weakness Past Medical History: Anxiety Lower extremity weakness Thoracic spine tumor Procedures Procedure Performed: 07/08/2018 Redo T8 laminectomy, T9 laminectomy for resection of intramedullary tumor Reason For Admission: Diagnoses 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 The patient noted new onset of right lower extrem ity weakness on 07/06/2018 and then presented to the hospital for evaluation. Ms. Worrell was transferred to [facility] on 07/06/2018. A MRI showed cord dissection at T7-9, with 2 focal i ntramedullary regions. Surgical intervention was indicated. A full PARQ discussion was held with the patient. Consent was signed for debulking and decompression of the spinal cord. S he demonstrated good understanding and consent was signed and placed in chart prior to proce eding. The patient underwent a redo T8 laminectomy, T9 laminectomy for resection of intramedullary tumor on 07/08/18. The inpatient stay related to this procedure and took an uncomplicated perioperative course and the patient was followed closely by the attending providers, reside nt providers, and medical/nursing staff. Intra-op findings: Large soft tumor which was debulked. Clear margins seen on medial aspec t of the tumor with subtle blending into normal-appearing spinal cord at more ventral area. There was 50% loss of left lower extremity MEP during resection. Right lower extremity MEP was unreliable from the beginning. Dura was closed with [place], tacked up with 4-0 Nurol on sutures. The muscle closed in layers. Skin was closed with 2-0 interrupted vertical mat tress sutures. Post operatively, the patient was admitted to the [facility] for [facility] conval[facility] care. The I npatient Pain service was consulted to assist with post operative pain management. The rafaela nt made appropriate gains toward activity and functional goals while an inpatient. The bryn ent worked with our rehabilitation team with recommendation for IPR upon discharge. Her lowe r extremity strength remained stable throughout her hospital stay. While on the hospital floor, the patient tolerated oral intake sufficient to maintain nutri tion and hydration. The surgical wound remained clean, dry, and intact without signs concern ing for infection. The patient was felt appropriate for discharge to [facility] (Inpatient Rehab) on 07/12/2018, and the patient and/or family members agree with this course of action. The janeth chang has a follow up appointment in the [facility] Neurosurgery Spine clinic on 07/31/2018. Medication List START taking these medications acetaminophen 325 mg Tab Commonly known as: TYLENOL Take 2 tablets by mouth every six hours. diazePAM 2 mg Tab Commonly known as: VALIUM Take 1 tablet by mouth three times daily as needed. diphenhydrAMINE 25 mg Cap Commonly known as: BENADRYL Take 1 capsule by mouth every six hours as needed. Indications: Urticaria enoxaparin 40 mg/0.4 mL Syrg Commonly known as: LOVENOX Inject 0.4 mL under the skin (SUBC) once daily in the evening. Okay to discontinue at discr etion of angie GUERRA or when patient is ambulating > 150ft TID Indications: Deep Vein Thrombosi s Prevention HYDROmorphone 2 mg Tab Commonly known as: DILAUDID Take 1-3 tablets by mouth every three hours as needed for moderate pain. lidocaine 5 % Ptmd Commonly known as: LIDODERM Apply 2 patches to skin every twenty-four hours. Apply patch to most painful area; Patch ma y remain in place for up to 12 hours in any 24-hour period. multivitamin Tab Commonly known as: THERA VITAMIN Take 1 tablet by mouth once daily. polyethylene glycol 17 gram Pwpk Commonly known as: MIRALAX Mix 1 packet and take orally once daily at bedtime. senna-docusate 8.6-50 mg Tab Commonly known as: SENOKOT S Take 2 tablets by mouth two times daily. CHANGE how you take these medications traZODone 50 mg Tab Commonly known as: DESYREL Take 1.5 tablets by mouth once daily at bedtime. May take a second dose if not asleep withi n 1-2 hours. What changed: how much to take CONTINUE taking these medications baclofen 10 mg Tab Commonly known as: LIORESAL Take 10 mg by mouth once daily at bedtime. DULoxetine 60 mg Cpdr Commonly known as: CYMBALTA Take 120 mg by mouth once daily at bedtime. gabapentin 300 mg Cap Commonly known as: NEURONTIN Take 600 mg by mouth once daily at bedtime. NEXPLANON 68 mg Impl Generic drug: etonogestrel 1 Device by subdermal route. Wound Care 1) Keep your incision site clean and dry. 2) It is ok for you to shower and get your surg ical incision wet, but do not submerge surgical incision in hot tub or swimming pool. 3) Please avoid placing creams or ointments directly on the incision even though it may itch.4) Your sutures will need to be removed at 3 weeks post-op, on 07/29/18. Vital Signs Per policy PPD for Facility Administer PPD upon arrival Activity Lifting restrictions: No lifting more than 10 pounds. Avoid repetitive bending and all strenuous activity until further notice. No driving while taking oral narcotics/pain medications. Follow Up You have an appointment with Raheem Doss PA-C at 12:45pm on 07/31/18. This will be on the 1 2th floor at the [facility] on the [facility] located at [address] [facility] [place] [address]. Please call [phone] if you have any questions or concerns bef ore your appointment time. Code Status for Facility Status: Full Code Discharge Follow Up - Facility MD to follow Facility MD to follow patient. Future Appointments Provider Department Dept Phone Center 07/31/2018 1:00 PM Raheem Doss [facility] at [facility] [phone] [facility] Contact information for after-discharge care [facility]charge Destination [facility] [place] . Specialty: Inpatient Rehabilitation Facility Contact information [address] [facility] [address] Warning Symptoms and Signs Please call the Neurosurgery clinic at [phone] with any questions Sunday to Sunday 8 A M - 4 PM. After hours, call [facility] at [phone] and ask to speak with the Neurosurgery resi dent director of instruction if you have any of the following: - Difficulty breathing or shortness of breath; - Excessive bleeding or drainage from incision sites; - Fevers, chills, sweats; - Persistent nausea or vomiting; - Change in mental status. [facility] Neurosurgery Service Pain Policy [facility] Neurosurgery Service Pain Policy: Our clinic can prescribe pain medication for up to 6 weeks post-op. All refills must be requested through a the [facility] Neurosurgery Clinic. Patients must give the Outpatient Clinic a minimum of 72 hours to refill or deny narcotic p rescription. Certain pain medication prescriptions need to be mailed to your pharmacy since they require a hard copy and therefore need this additional time to allow for processing of your refill. Requests received after 3pm will not be processed until the following business day. Prescriptions will not be available through our office after-hours, weekends, and holidays. NO EXCEPTIONS. At the 6-week post-operative barrie, pain management will be reassessed and pain management r ecommendations may be modified by the discretion of the Provider. Discharging Provider: Lynn Ferrera PA-C Attending Physician: Rajinder Luis MDElectronically signed by Lynn Ferrera PA-C at 10/2018 2:10 PM PSTdocumented in this encounter Medications at Time of [...] + | baclofen 10 mg | Take 10 mg by mouth | | 0 | | | | oral tablet | once daily at | | | | | | | bedtime. | | | | | + + + +---------+ + + | diazePAM 2 mg oral | Take 1 tablet by | 30 | 0 | 07/12/19 | | | tablet | mouth three times | tablet | | 19 | | | | daily as needed. | | | | | + + + +---------+ + + | diphenhydrAMINE 25 | Take 1 capsule by | 30 | 0 | 07/12/19 | | | mg oral | mouth every six | capsule | | 19 | | | capsuleIndications: | hours as needed. | | | | | | urticaria | Indications: | | | | | | | Urticaria | | | | | + + + +---------+ + + | DULoxetine 60 mg | Take 120 mg by mouth | | 0 | | | | oral capsule,delayed | once daily at | | | | | | release(DR/EC) | bedtime. | | | | | + + + +---------+ + + | enoxaparin 40 | Inject 0.4 mL under | 1 mL | 0 | 07/12/19 | | | mg/0.4 mL | the skin (SUBC) once | | | 19 | | | subcutaneous | daily in the | | | | | | syringeIndications: | evening. Okay to | | | | | | Deep Vein Thrombosis | discontinue at | | | | | | Prevention | discretion of house | | | | | | | MD or when patient | | | | | | | is ambulating > | | | | | | | 150ft TID | | | | | | | Indications: Deep | | | | | | | Vein Thrombosis | | | | | | | Prevention | | | | | + + + +---------+ + + | etonogestrel | 1 Device by | | 0 | | | | (NEXPLANON) 68 mg | subdermal route. | | | | | | subdermal implant | | | | | | + + + +---------+ + + | gabapentin 300 mg | Take 600 mg by mouth | | 0 | | | | oral capsule | once daily at | | | | | | | bedtime. | | | | | + + + +---------+ + + | HYDROmorphone 2 mg | Take 1-3 tablets by | 100 | 0 | 07/12/19 | | | oral tablet | mouth every three | tablet | | 19 | | | | hours as needed for | | | | | | | moderate pain. | | | | | + + + +---------+ + + | lidocaine 5 % | Apply 2 patches to | 30 | 0 | 20 | | | topical adhesive | skin [...] + + + +---------+ + + | multivitamin oral | Take 1 tablet by | 30 | 0 | 07/12/19 | | | tabletIndications: | mouth once daily. | tablet | | 19 | | | Thoracic spine tumor | | | | | | + + + +---------+ + + | polyethylene | Mix 1 packet and | 30 | 0 | 07/12/19 | | | glycol 17 gram oral | take orally once | packet | | 19 | | | powder in | daily at bedtime. | | | | | | packetIndications: | | | | | | | Thoracic spine tumor | | | | | | + + + +---------+ + + | senna-docusate | Take 2 tablets by | 30 | 0 | 07/12/19 | | | 8.6-50 mg oral | mouth two times | tablet | | 19 | | | tablet | daily. | | | | | + + + +---------+ + + | traZODone 50 mg | Take 1.5 tablets by | 30 | 0 | 07/12/19 | | | oral tablet | mouth [...] documented as of this encounter Progress Notes Caleb Henry PA - 07/12/2018 7:21 AM PSTFormatting of this note might be differe nt from the original. NEUROSURGERY INPATIENT PROGRESS NOTE Hospital Day:6 Author; CALEB HENRY PA-C Attending Physician: Rajinder Luis MD Interval Hx: -No acute events. -Patient reports pain control is adequate. -Did not require IV pain meds overnight. Physical Exam: Last Vitals: BP 98/56 | Pulse 56 | Temp 36.9 C (98.4 F) | RR 16 | Ht 1.6 m (5' 3") | Wt 68.4 kg (150 lb 12.7 oz) | SpO2 96% | BMI 26.71 kg/(m^2) O2 Delivery Device: None (room air ) (07/12/18 0353) 24 Hour Vital Min/Max: Systolic (24hrs), Av , Min:98 , Max:122 Diastolic (24hrs), Av, Min:53, Max:75 Pulse Min: 48 Max: 84 Temp Min: 36.5 C (97.7 F) Max: 36.9 C (98.4 F) Resp Min: 16 Max: 16 SpO2 Min: 95 % Max: 96 % Intake/Output Summary (Last 24 hours) at 07/12/18 0721 Last data filed at 07/12/18 0400 Gross per 24 hour Intake 870 ml Output 1550 ml Net -680 ml Labs Results for QIANA WORRELL ( ) as of 07/12/2018 06:43 Ref. Range 07/11/2018 07:21 SODIUM, PLASMA (LAB) Latest Ref Range: 136 - 145 mmol/L 137 POTASSIUM, PLASMA (LAB) Latest Ref Range: 3.4 - 5.0 mmol/L 3.7 POTASSIUM CMNT Unknown No Hemo CHLORIDE, PLASMA (LAB) Latest Ref Range: 97 - 108 mmol/L 102 TOTAL CO2, PLASMA (LAB) Latest Ref Range: 21 - 32 mmol/L 31 ANION GAP Latest Ref Range: 4 - 11 mmol/L 4 ANION GAP(ALB CORRECTED) Latest Ref Range: 4 - 11 mmol/L 7 BUN, PLASMA (LAB) Latest Ref Range: 6 - 20 mg/dL 12 CREATININE PLASMA (LAB) Latest Ref Range: 0.60 - 1.10 mg/dL 0.45 (L) EGFR - ANDORRAN Latest Ref Range: >60 mL/min >60 EGFR NON -ANDORRAN Latest Ref Range: >60 mL/min >60 GLUCOSE, PLASMA (LAB) Latest Ref Range: 70 - 99 mg/dL 128 (H) CALCIUM, PLASMA (LAB) Latest Ref Range: 8.6 - 10.2 mg/dL 8.8 CALCIUM(ALB CORRECTED) Latest Ref Range: 8.6 - 10.2 mg/dL 9.8 PHOSPHORUS, PLASMA (LAB) Latest Ref Range: 2.4 - 4.7 mg/dL 2.8 ALBUMIN, PLASMA (LAB) Latest Ref Range: 3.5 - 4.7 g/dL 2.7 (L) General: 27 y/o Female in NAD Incision: C/D/I, no erythema, nylon sutures in place Neuro: Alert and oriented x 3, PERRL, EOMI, face symmetric Motor: MOTOR SCORE LEFT RIGHT C5 (Shoulder Abduct) 5 5 C6 (Elbow Flex) 5 5 C7 (Elbow Ext) 5 5 C8 (Wrist Ext) 5 5 T1 (Pinky Abd) 5 5 L2 (Hip Flex) 3 1 L3 (Knee Ext) 4+ 4- L4 (Dorsiflexion) 4+ 4- L5 (EHL) 5 4 S1 (Plantar Flex) 5 4 Sensation: Light Touch: Decrease LT sensation to LLE (baseline), decreased LT sensation to R distal le g and plantar aspect of R foot Ext: no edema, deformity Psychiatric: Appropriate and cooperative Assessment/Plan: Qiana Worrell is a 27 y.o. 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 Recent acute wo rsening of RLE weakness with concern for tumor progression. Now s/p redo T8 laminectomy, T9 laminectomy for resection of intramedullary tumor on 07/08/18. Surgical path: Residual/recur rent low grade glioneuronal tumor Neurological: Exam stable. Continue Dex taper, will complete today. Analgesia- Pain control appears adequate off of IV pain meds, will stop IV Hydromorphone. Appreciate APS consult. Will continue hydromorphone at 6mg q3h -Cont baclofen 10mg at bedtime -Cont Cymbalta 120mg at bedtime -Cont Trazodone at 75mg at bedtime -Cont Lidoderm patches -Cont gabapentin -Cont APAP -Cont Valium 2mg TID prn muscle spasms Cardiovascular: HD stable. Pulm: No active issues. HEENT: No active issues. GI: oral diet; anti-emetics prn; GI ppx / Renal: urinary retention, neurogenic bladder, continue daniels ID/HO: Afebrile, no active issues. Endocrine: No active issues. No need for ISS presently. Musculoskeletal / Skin: Routine decubitus ulcer prevention. Wound care: Wound care per protocol. Nylons will need to be removed at 3 weeks post-op, yovana und 07/29/18. Rehab: Continue PT/OT DVT prophylaxis: mobilize out of bed; SCDs, on ppx Lovenox. Disposition: Awaiting IPR placement. Will discuss dispo plan with case management. CALEB HENRY PA-C [facility] [address] [address] [id number] MEDICATIONS Current Facility-Administered Medications Medication acetaminophen (TYLENOL) tablet 650 mg artificial tears (dextran 70-hypromellose) (NATURE'S TEARS) 0.1-0.3 % ophthalmic drops 1 drop baclofen (LIORESAL) tablet 10 mg bisacodyl (DULCOLAX) suppository 10 mg dexamethasone (DECADRON) tablet 2 mg Followed by dexamethasone (DECADRON) tablet 2 mg diazePAM (VALIUM) tablet 2 mg diphenhydrAMINE (BENADRYL) capsule 25 mg DULoxetine (CYMBALTA) capsule 120 mg enoxaparin (LOVENOX) injection 40 mg gabapentin (NEURONTIN) capsule 600 mg HYDROmorphone (DILAUDID) tablet 2-6 mg lidocaine (LIDODERM) 5 % patch 1 patch lidocaine (LIDODERM) 5 % patch 1 patch multivitamin (THERA VITAMIN) 1 tablet ondansetron (ZOFRAN) injection 4 mg polyethylene glycol (MIRALAX) packet 17 g polyethylene glycol (MIRALAX) packet 34 g prochlorperazine (COMPAZINE) injection 5-10 mg senna-docusate (SENOKOT S) 8.6-50 mg 2 tablet traZODone (DESYREL) dose 75 mg dawv, Raheem Nieves PA-C - 07/11/2018 8:39 AM PST . Neurosurgery Progress Note Hospital Day:5 Author; RAHEEM DOSS PA-C Attending Physician: Rajinder Luis MD Interval Hx: -Patient good pain control. Had two doses of just 4mg dilaudid overnight but then one dose of IV pain meds. Patient agreeable to sticking with 6mg dilaudid q3h and not using IV medica tions. APS has signed off. Last Vitals: BP 105/64 | Pulse 48 | Temp 36.7 C (98.1 F) | RR 16 | Ht 1.6 m (5' 3") | W t 67.3 kg (148 lb 5.9 oz) | SpO2 96% | BMI 26.28 kg/(m^2) O2 Delivery Device: None (room air ) (07/11/18 0830) 24 Hour Vital Min/Max: Systolic (24hrs), Av , Min:101 , Max:115 Diastolic (24hrs), Av, Min:55, Max:69Puls e Min: 64 Max: 86 Temp Min: 36.2 C (97.2 F) Max: 36.6 C (97.9 F) Resp Min: 16 Max: 16 SpO2 Min: 95 % Max: 98 % Intake/Output Summary (Last 24 hours) at 07/08/18 0721 Last data filed at 07/08/18 0600 Gross per 24 hour Intake 805 ml Output 2750 ml Net -1945 ml Exam: Alert, oriented x3. Speech clear, fluent. Gaze conjugate. Face symmetric. Thoracic incision: flat, dry, intact. Nylons in place. Sensation: Decrease LT sensation to LLE (baseline), decreased LT sensation to R distal leg and plantar aspect of R foot. Motor: HF KF KE APF ADF Left 2 4+ 4+ 5 5 Right 1 4- 4- 4+ 4 Labs: CBC with diff last 72 hours (or 3 results) Recent Labs 07/08/18 1346 07/09/18 0330 07/10/18 0601 WBC 9.75 17.51* 15.20* HB 12.5 13.5 12.9 HCT 37.3 41.3 39.3 PLT 289 336 325 Recent Labs 07/09/18 0330 07/10/18 0601 07/10/18 0955 07/11/18 0721 NA 137 -- 138 -- 137 K 4.0 -- 4.0 -- 3.7 CL 104 -- 101 -- 102 BICARB 30 -- 32 -- 31 BUN 8 -- 9 -- 12 CR 0.58* -- 0.52* -- 0.45* GLU 140* < > 124* 102* 128* CA 9.1 -- 9.0 -- 8.8 ALB 3.4* -- 2.9* -- 2.7* ANIONGAP 3* -- 5 -- 4 ANIONALBCOR 4 -- 7 -- 7 < > = values in this interval not displayed. Current Medications: acetaminophen (TYLENOL) tablet 650 mg, 650 mg, oral, Q6H artificial tears (dextran 70-hypromellose) (NATURE'S TEARS) 0.1-0.3 % ophthalmic drops 1 dr op, 1 drop, Both Eyes, Q2H PRN baclofen (LIORESAL) tablet 10 mg, 10 mg, oral, HS bisacodyl (DULCOLAX) suppository 10 mg, 10 mg, rectal, DAILY PRN [COMPLETED] dexamethasone (DECADRON) tablet 4 mg, 4 mg, oral, Q6H FOLLOWED BY [COMPLETE D] dexamethasone (DECADRON) tablet 4 mg, 4 mg, oral, Q8H FOLLOWED BY [COMPLETED] dexamet hasone (DECADRON) tablet 2 mg, 2 mg, oral, Q8H FOLLOWED BY dexamethasone (DECADRON) tabl et 2 mg, 2 mg, oral, Q12H (Scheduled) FOLLOWED BY [START ON 07/12/2018] dexamethasone (DEC ADRON) tablet 2 mg, 2 mg, oral, Q24H diazePAM (VALIUM) tablet 2 mg, 2 mg, oral, TID PRN diphenhydrAMINE (BENADRYL) capsule 25 mg, 25 mg, oral, Q6H PRN DULoxetine (CYMBALTA) capsule 120 mg, 120 mg, oral, HS enoxaparin (LOVENOX) injection 40 mg, 40 mg, subcutaneous, QPM gabapentin (NEURONTIN) capsule 600 mg, 600 mg, oral, TID HYDROmorphone (DILAUDID) injection 0.5-1 mg, 0.5-1 mg, intravenous, Q2H PRN HYDROmorphone (DILAUDID) tablet 2-6 mg, 2-6 mg, oral, Q3H PRN lidocaine (LIDODERM) 5 % patch 1 patch, 1 patch, transdermal, Q24H lidocaine (LIDODERM) 5 % patch 1 patch, 1 patch, transdermal, Q24H multivitamin (THERA VITAMIN) 1 tablet, 1 tablet, oral, DAILY ondansetron (ZOFRAN) injection 4 mg, 4 mg, intravenous, Q12H PRN polyethylene glycol (MIRALAX) packet 17 g, 17 g, oral, DAILY polyethylene glycol (MIRALAX) packet 34 g, 34 g, oral, TID PRN prochlorperazine (COMPAZINE) injection 5-10 mg, 5-10 mg, intravenous, Q6H PRN senna-docusate (SENOKOT S) 8.6-50 mg 2 tablet, 2 tablet, oral, BID traZODone (DESYREL) dose 75 mg, 75 mg, oral, HS Impression: 27YOF with 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 Recent acute worsening of RLE weakness with concern for tumor progression. Now s/p redo T8 laminectomy, T9 laminectomy for resection of intramedull dominick tumor on 07/08/18. Wound healing well. Plan: Neuro: Final path pending. Cont Dex taper, final day on 07/12. Pain control: Patient doing well, Appreciate APS consulting with recs which have been imple mented: -Will continue hydromorphone at 6mg q3h -Avoid IV hydromorphone use (will keep on SEP through today) -Cont baclofen 10mg at bedtime -Cont Cymbalta 120mg at bedtime -Cont Trazodone at 75mg at bedtime -Cont Lidoderm patches -Cont gabapentin -Cont APAP -Cont Valium 2mg TID prn muscle spasms Wound: Routine wound care. Okay to shower/wash incision daily. Please keep open to air, no creams or ointments. Nylons will need to be removed at 3 weeks post-op, around 07/29. CV: HD stable, would expect BP (especially diastolic) to be soft with recent spinal cord in jury insult. Pulm: IS, cough/deep breath GI/diet: Regular diet. +Anti-emetics. Bowel regimen prn. : Daniels in place. Will continue this for the time being per patient request. Musculoskeletal/skin: Routine decubitus ulcer prevention. Appreciate PT/OT involvement with recs for I[facility]. ID/Heme: Afebrile. Leukocytosis at 15, likely related to steroids. DVT ppx: SCDs while in bed, on ppx Lovenox. Dispo: Pending acceptance at [facility]. RAHEEM DOSS PA-C [facility] [address] [place] [address] dams, PHILIPPE Mena - 07/10/2018 8:17 AM PST Neurosurgery Progress Note Hospital Day:4 Author; RAHEEM DOSS PA-C Attending Physician: Rajinder Luis MD Interval Hx: -Patient reports improvement in pain control this AM, currently at a 11/15. She is happy wit h the changes the APS team made. -She would like to hold on removing her daniels catheter until she can get to [facility]) as th ey manage neurogenic bladder and training well over there. She states she is aware of the ri sks of keeping it in skilled nursing. -She was able to sit upright yesterday and felt good about that. Last Vitals: BP 94/63 | Pulse 55 | Temp 37.1 C (98.8 F) | RR 16 | Ht 1.6 m (5' 3") | Wt 66.5 kg (146 lb 9.7 oz) | SpO2 98% | BMI 25.97 kg/(m^2) O2 Delivery Device: None (room air) (07/10/18 0514) 24 Hour Vital Min/Max: Systolic (24hrs), Av , Min:94 , Max:122 Diastolic (24hrs), Av, Min:63, Max:88Pulse Min: 64 Max: 86 Temp Min: 36.2 C (97.2 F) Max: 36.6 C (97.9 F) Resp Min: 16 Max: 16 SpO2 Min: 95 % Max: 98 % Intake/Output Summary (Last 24 hours) at 07/08/18 0721 Last data filed at 07/08/18 0600 Gross per 24 hour Intake 805 ml Output 2750 ml Net -1945 ml Exam: Alert, oriented x3. Speech clear, fluent. Gaze conjugate. Face symmetric. Sensation: Decrease LT sensation to LLE (baseline), decreased LT sensation to R distal leg and plantar aspect of R foot. Has some hypersensitivity in her right popliteal fossa. Motor: HF KF KE APF ADF Left 2 4+ 4 5 5 Right 1 4- 3 4 4 Labs: CBC with diff last 72 hours (or 3 results) Recent Labs 07/08/18 1346 07/09/18 0330 07/10/18 0601 WBC 9.75 17.51* 15.20* HB 12.5 13.5 12.9 HCT 37.3 41.3 39.3 PLT 289 336 325 Recent Labs 07/08/18 1346 07/09/18 0330 07/09/18 1948 07/09/18 2242 07/10/18 0601 NA 139 137 -- -- -- 138 K 4.3 4.0 -- -- -- 4.0 CL 106 104 -- -- -- 101 BICARB 27 30 -- -- -- 32 BUN 10 8 -- -- -- 9 CR 0.55* 0.58* -- -- -- 0.52* GLU 131* 140* < > 140* 135* 124* CA 9.3 9.1 -- -- -- 9.0 ALB 3.2* 3.4* -- -- -- 2.9* ANIONGAP 6 3* -- -- -- 5 ANIONALBCOR 8 4 -- -- -- 7 < > = values in this interval not displayed. Current Medications: acetaminophen (TYLENOL) tablet 650 mg, 650 mg, oral, Q6H artificial tears (dextran 70-hypromellose) (NATURE'S TEARS) 0.1-0.3 % ophthalmic drops 1 dr op, 1 drop, Both Eyes, Q2H PRN baclofen (LIORESAL) tablet 10 mg, 10 mg, oral, HS bisacodyl (DULCOLAX) suppository 10 mg, 10 mg, rectal, DAILY PRN [COMPLETED] dexamethasone (DECADRON) tablet 4 mg, 4 mg, oral, Q6H FOLLOWED BY [COMPLETE D] dexamethasone (DECADRON) tablet 4 mg, 4 mg, oral, Q8H FOLLOWED BY dexamethasone (DECA DRON) tablet 2 mg, 2 mg, oral, Q8H FOLLOWED BY [START ON 07/11/2018] dexamethasone (DECADR ON) tablet 2 mg, 2 mg, oral, Q12H (Scheduled) FOLLOWED BY [START ON 07/12/2018] dexamethas one (DECADRON) tablet 2 mg, 2 mg, oral, Q24H diazePAM (VALIUM) tablet 2 mg, 2 mg, oral, TID PRN diphenhydrAMINE (BENADRYL) capsule 25 mg, 25 mg, oral, Q6H PRN DULoxetine (CYMBALTA) capsule 120 mg, 120 mg, oral, HS gabapentin (NEURONTIN) capsule 600 mg, 600 mg, oral, TID HYDROmorphone (DILAUDID) injection 0.5-1 mg, 0.5-1 mg, intravenous, Q2H PRN HYDROmorphone (DILAUDID) tablet 2-6 mg, 2-6 mg, oral, Q3H PRN lidocaine (LIDODERM) 5 % patch 1 patch, 1 patch, transdermal, Q24H lidocaine (LIDODERM) 5 % patch 1 patch, 1 patch, transdermal, Q24H ondansetron (ZOFRAN) injection 4 mg, 4 mg, intravenous, Q12H PRN polyethylene glycol (MIRALAX) packet 17 g, 17 g, oral, DAILY polyethylene glycol (MIRALAX) packet 34 g, 34 g, oral, TID PRN prochlorperazine (COMPAZINE) injection 5-10 mg, 5-10 mg, intravenous, Q6H PRN senna-docusate (SENOKOT S) 8.6-50 mg 2 tablet, 2 tablet, oral, BID traZODone (DESYREL) dose 75 mg, 75 mg, oral, HS Impression: 27YOF with 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 Recent acute worsening of RLE weakness with concern for tumor progression. Now s/p redo T8 laminectomy, T9 laminectomy for resection of intramedull dominick tumor on 07/08/18. Wound healing well. Plan: Neuro: Final path pending. Cont Dex taper, final day on 07/12. Pain control: Patient doing well, Appreciate APS consulting with recs which have been imple mented: 1.) Discontinue oxycodone 2.) Add in hydromorphone 2-6 mg q 3 hours prn. 3.) Continue the Baclofen 10 mg at bedtime. 4.) Continue Cymbalta at 120 mg at bedtime. 5.) Change Trazodone to 75 mg at bedtime as needed instead of the current order of 50 mg scheduled and 50 mg prn. 6.) Discontinue tizanidine. 7.) Add in Zofran 4 mg q 12 hours prn nausea 8.) Continue the Lidoderm patches. 9) Change the IV hydromorphone to 0.5-1 mg every 2 hours as needed. 10.) Continue the gabapentin as ordered. 11.) Continue the acetaminophen at 650 mg q 6 hours prn. Patient also has Valium 2mg TID prn muscle spasms. Wound: Routine wound care. Okay to shower/wash incision on POD#3, 07/11. Please keep open to air, no creams or ointments. Nylons will need to be removed at 3 weeks post-op, around 07/29. CV: HD stable. Pulm: IS, cough/deep breath GI/diet: Regular diet. +Anti-emetics. Bowel regimen prn. : Daniels in place. Will continue this for the time being per patient request. Musculoskeletal/skin: Routine decubitus ulcer prevention. Will have PT/OT evaluate patient. ID/Heme: Afebrile. Leukocytosis at 15, likely related to steroids. Will continue to monitor . DVT ppx: SCDs while in bed, will start ppx Lovenox tonight. Dispo: Pending PT/OT evals, likely candidate for IPR. RAHEEM DOSS PA-C [facility] [address] [place] [address] Mook Álvarez ra, MD - 07/09/2018 9:09 AM PST . NEUROSURGERY PROGRESS NOTE Attending Physician: Rajinder Luis MD INTERVAL EVENTS: OR yesterday Postoperative MR thoracic spine Patient flat postoperative BENJAMIN overnight OBJECTIVE: Last 24 hour min/max Temp: 36.5 C (97.7 F) Temp Min: 36.2 C (97.2 F) Max: 36.8 C (98.2 F) Heart Rate: 51 Pulse Min: 45 Max: 81 Resp: 16 Resp Min: 11 Max: 34 BP: 114/70 BP Min: 90/58 Max: 133/80 SpO2: 93 % SpO2 Min: 91 % Max: 99 % Body mass index is 25.97 kg/m. I/O/Drains Current Shift I/O/Drains Last 3 Completed Shifts 07/09 700 - 07/09 1500 In: 85 [I.V.:85] Out: - 07/08 701 - 07/09 0700 In: 7077.5 [P.O.:980; I.V.:5957.5] Out: 4670 [Urine:4570] No Data Recorded No Data Recorded Labs: Complete Blood Count/Coags Recent Labs 07/08/18 0413 07/08/18 1346 07/09/18 0330 WBC 9.37 9.75 17.51* HB 13.0 12.5 13.5 HCT 40.1 37.3 41.3 PLT 315 289 336 Invalid input(s): INR CSF Results No results for input(s): WBCCSF, RBCCSF, GLUCOSECSF, PROTEINCSF in the last 8640 hours. Chemistry Recent Labs 07/08/18 0413 07/08/18 1310 07/08/18 1346 07/09/18 0330 NA 138 -- 139 137 K 4.2 -- 4.3 4.0 CL 103 -- 106 104 BICARB 28 -- 27 30 BUN 12 -- 10 8 CR 0.70 -- 0.55* 0.58* GLU 110* 127* 131* 140* CA 9.6 -- 9.3 9.1 MG -- -- 1.8 1.8 PO4 -- -- 3.8 3.7 Culture Results CULTURE RESULT (no units) Date Value 11/05/2017 Patient:QIANA WORRELL Routine Cultures PROCEDURE: Strep Screen Culture [[id number]: 11/05/2017 16:4 4 PDT P1] SOURCE: Throat STARTED: 11/05/2017 20:3 9 PDT FREE TEXT SOURCE: BODY SITE: FINAL REPORTS Final Report [] Verified Date/Time: 11/07/2017 11:07 PDT No beta Strep isolated. Order Comments O1: Strep Screen Culture (CULTURE THROAT STREP SCREEN - [facility] - Ordering-Phys: PRINCESS GRAVES) Location: [facility] Performing Locations P1: This test was performed at: [facility] Lab Lab Results Component Value Date APTT 35.0 07/08/2018 FIBRINOGEN 605 (H) 07/08/2018 No results found for: RBCCSF, WBCCSF, PROTEINCSF, GLUCOSECSF, CSFAPP NEUROLOGICAL EXAM: EXAM: BP 114/70 | Pulse 51 | Temp 36.5 C (97.7 F) | RR 16 | Ht 1.6 m (5' 3") | Wt 66.5 kg (14 6 lb 9.7 oz) | SpO2 93% | BMI 25.97 kg/(m^2) AAOx3 PERRL, EOMI, FS, TML RUE: 5/5 D/B/T/HG LUE: 5/5 D/B/T/HG RLE: 1/5 HF/KE 3/5 DF 4/5 EHL/PF LLE: 1/5 HF 2/5 KE 3/5 DF 5/5 EHL/PF Complete loss of sensation in LLE, except of a small area around the left knee. RLE sensation intact Reflexes, 3/4 left knee, otherwise 2/4 incision clean/dry/intact ASSESSMENT/PLAN: Qiana Worrell is a 27 y.o. 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 Acute worsening of RLE weak ness. Spine MRI showing disease progression. Now s/p redo T8 laminectomy, T9 laminectomy for resection of intramedullary tumor on 07/08. - Frequent neuro checks - Maintain adequate analgesia - Routine wound care - Flat until today at 12, then progressive mobilization to sitting position - MAP > 80 as able, no pressors - Dexamethasone 4mg q6hrs, short taper Please contact the Neurosurgery resident on-call pager [phone] with questions or concerns. Olinda Araya MD Resident Physician Department of Neurosurgery Lucinda Valencia PA-C - 07/09/2018 5:50 AM PSTFormatting of this note might be diffe rent from the original. . Neuroscience Intensive Care Unit Team Progress Note NSICU ASSIGNED #[id number] ICU Admission Reason Most Recent Value ICU Admission reason Neuro-monitoring s/p thoracic intramedullary tumor debulking filed at 07/08/2018 1320 Admission dx: Thoracic Spine Tumor 1 Days in ICU 3 Days in Hospital Abbreviated HPI / Daily Assessment Qiana Worrell is a 27 y.o. Female with a low grade glioneuronal intramedullary thoraci c tumor s/p multiple prior resections most recently prior to this admission on , who w as admitted to the [facility] on Dr. Luis's neurosurgery service on 07/06 with new Right lower ex tremity weakness concerning for tumor progression on MRI imaging. She was started on Decadr on 2mg BID and was scheduled for the OR today 07/08 for T8 and T9 redo Laminectomies for paul or resection. She will be admitted to NSICU for post operative management. She had a stabl e OR course and has been extubated without incident per anesthesia. A 50% decrease in neuro monitoring signals was noted by neurosurgery and the plan is to augment her BP for MAP goal >80. During the case she did not require vasopressor support for this goal. 24 Hour events -admit s/p T8-9 laminectomies for tumor decompression, 5th resection -baseline BLE weakness although previously able to ambulate. No sensation in LLE from knee down x 3 years -decreased signals intra-op, kept MAP > 80 overnight. Required 2L IVF boluses -keeping HOB flat for (intentional) durotomy during the base. Ok to raise HOB this afternoon -required benadryl 50 mg PO for itching -painful, difficult to balance with alertness and MAP goals Active Diagnosis with Assessment & Plan Priority Class POA Musculoskeletal Lower extremity weakness Yes Current Assessment & Plan -New R lower extremity weakness secondary to thoracic tumor progression. -see below Other * (Principal)Thoracic spine tumor Yes Overview Low-grade glioneuronal , s/p resection 05/2015 Recurrence, s/p resection 09/09/2015 Recurrence, s/p resection 03/22/2016 Recurrence s/p resection 01/22/2017; T8 and T9 laminectomies for resection of intramedullary tumor MRI Thoracic/Lumbar 07/07 IMPRESSION: 1. Perhaps trace interval enlargement of the thoracic cord mass as described above. These c hanges are subtle, and includes slight further extent of the inferior T2 signal abnormality as well as subtle enlargement of the areas of cystic change within the central aspect of the mass. 2. Normal examination of the lumbar spine. Current Assessment & Plan -admitted to NSICU status post T8,T9 redo laminectomy for intramedullary tumor resection on 07/08/18 -Presented on 07/06 with new onset RLE weakness 3/5 secondary to tumor progression. Decreas ed signals noted in case -Proximal lower extremities currently 2/5 on left; right 1/5 -Baseline decreased sensation to left leg, 3 years per patient report. -Dr. Luis's neurosurgery service. q1NC and VS -MAP goal >80 per neurosurgery, continue today. Received 2L IVF boluses overnight, so far h as not required vasopressors -Continue Decadron: 3 day rapid taper -Bijal-op abx per Neurosurgery -HOB flat since surgery, ok to raise later this afternoon -MRI wwo thoracic spine completed, await final read -Activity per neurosurgery -pain medications as below -Advance to regular diet. -PT, OT when able At risk for constipation Yes Current Assessment & Plan -Aggressive bowel regiment for daily BMs At risk for venous thromboembolism Yes Overview scd Current Assessment & Plan -SCDs in acute bijal-op period Anxiety Yes Current Assessment & Plan -Resume home Cymbalta 120 mg QHS and trazodone 50 mg QHS Chronic pain following surgery or procedure Yes Current Assessment & Plan -Resume outpatient regiment; gabapentin 600 mg QHS, baclofen 10 mg QHS, and duloxetine 12 0 mg QHS -Supplement with tylenol 650 mg q6h, oxycodone 10-20 mg q3h prn, dilaudid IV, tizanidine 4m g TID prn, lidoderm patch for acute post op pain -pt is opiate naive per med history, consider APS consult for further management Code Status Code Status Full Code The Advanced Care Note for this patient can be found under the notes tab in chart review. Constitutional: She appears well-developed and well-nourished not diaphoretic no distress Cardiovascular: regular rhythm, normal heart sounds and intact distal pulses no murmur hear d.Sinus bradycardia Pulmonary: effort normal and breath sounds normal. She has no wheezes No respiratory distre ss. Abdominal: Abdomen is soft. Musculoskeletal: She exhibits no edema. Skin: Skin is warm and dry. vitals and nursing note reviewed. Physical exam Comments Awake, alert and oriented to person, place, time and situation, eyes open spontan eously, PERRLA, EOM grossly intact, tracks, regards, TML, sensation intact V1-V3 distributio n bilaterally, face symmetric, shoulder shrug strong and intact. Strength: RUE: 5/5; RLE: 5/5 at ankle, 1/5 proximally; LUE: 5/5; LLE; 5/5 at ankle, 2/5 proximally, sensation intact to light touch throughout . NSICU treatment team members Provider Role Specialty Ipt Critical Care Nsicu #[id number] Treatment Team Ipt Neurosurgery #[id number] Treatment Team Neurological Surgery Patient Lines/Drains/Airways Status Active Lines, Drains and Airways Name: Placement date: Placement time: Site: Days: Peripheral IV Right Antecubital 20 g 07/06/18 Antecubital 3 Peripheral IV Right Dorsal Hand 16 g 07/08/18 0905 Hand less than 1 Incision Posterior spine- thoracic 01/13/17 1521 541 Incision Posterior spine- thoracic 07/08/18 1011 less than 1 Urethral Catheter Straight Cath 01/17/17 0030 Straight Cath 538 Urethral Catheter Daniels 16 Fr. 07/08/18 0900 Daniels less than 1 Quality section Daniels necessity reviewed: Plan to DC today FAST HUG Feeding: regular Analgesia: as above Sedation: none Thromboprophylaxis: SCDs Head of Bed: Head of Bed Flat until this afternoon Ulcer Prophylaxis: not clinically indicated Glycemic Control: not indicated I have spent a total of 50 Minutes independently in the direct care and management of th is patient.Time is independent of any time spent teaching or performing any separately billa ble procedures. I reviewed the documented findings, all data and the recent imaging availabl e. Date of Service: 07/09/2018 LUCINDA CASTAÑEDA PA-C [facility] DEPARTMENT: ANE ICU NEURO Place of Service:- Inpatient CSN: [id number] Suggested Modifier: None Suggested CPT: TO CUSTOMS COMPLIANCE ANALYST Author:LUCINDA CASTAÑEDA PA-C [place] [id number] [address] [phone] Kamaljit Rios MD,MPH - 07/08/2018 3:00 PM PST NEUROSURGERY POST-OP CHECK Author: Kamaljit Rios MD,MPH Date: 07/08/2018 Attending Physician: Rajinder Luis MD STATUS POST: re-do T7-8 laminectomies for resection of intramedullary tumor Patient examined in NSICU VITAL SIGNS: BP 132/87 | Pulse 59 | Temp 36.8 C (98.2 F) | RR 22 | Ht 1.6 m (5' 3") | Wt 66.5 kg (14 6 lb 9.7 oz) | SpO2 97% | BMI 25.97 kg/(m^2) PHYSICAL EXAM FINDINGS: Arouses to voice, oriented to self, place, situation Following commands briskly Speech fluent PERRL EOMI Face symmetric RUE: 5/5 D/B/T/HG LUE: 5/5 D/B/T/HG RLE: 1/5 HF/KE 3/5 DF/EHL/PF LLE: 2/5 HF/KE 3/5 DF/EHL/PF Sensation grossly intact, able to identify RLE and LLE sensation accurately in multiple valerie matomes Incision covered with dressing, clean/dry/intact without strikethrough A/P: Neurologically stable. Continue care: - Frequent neuro checks and vital signs - Keep incision and dressings clean/dry/intact - Maintain adequate analgesia - MAP > 80 as able, no pressors - Dexamethasone 4mg q6hrs for now, likely short taper tomorrow - HOB strictly flat overnight - MRI BFFE T-spine (as ordered) tonight Please contact the Neurosurgery resident on-call pager [phone] with questions or concerns. Kamaljit Rios M.D., M.P.H. R2 Resident Physician Neurological Surgery Pager: [phone] signed by Kamaljit Rios MD,MPH at 07/08/2018 3:04 PM Raheem Liu PA-C - 07/08/2018 7:21 AM PST Neurosurgery Progress Note Hospital Day:2 Author; RAHEEM DOSS PA-C Attending Physician: Rajinder Lusi MD Interval Hx: -Patient without specific complaint today. Has just been called to the OR, would like some IV anxiolytic before hand. Last Vitals: BP 114/69 | Pulse 73 | Temp 36.4 C (97.5 F) | RR 16 | Ht 1.6 m (5' 3") | W t 66.2 kg (145 lb 15.1 oz) | SpO2 96% | BMI 25.85 kg/(m^2) O2 Delivery Device: None (room ai r) (07/08/18 0617) 24 Hour Vital Min/Max: Systolic (24hrs), Av , Min:105 , Max:117 Diastolic (24hrs), Av, Min:60, Max:71Puls e Min: 64 Max: 86 Temp Min: 36.2 C (97.2 F) Max: 36.6 C (97.9 F) Resp Min: 16 Max: 16 SpO2 Min: 95 % Max: 98 % Intake/Output Summary (Last 24 hours) at 07/08/18 0721 Last data filed at 07/08/18 0600 Gross per 24 hour Intake 805 ml Output 2750 ml Net -1945 ml Exam: Alert, oriented x3. Speech clear, fluent. Gaze conjugate. Face symmetric. Sensation: Decrease LT sensation to LLE (baseline), new LT sensation decrease to R distal l eg and plantar aspect of R foot. Motor: HF KF KE APF ADF Left 5 5 5 5 5 Right 5* 5 4+ 5 4 *Delayed activation Labs: CBC with diff last 72 hours (or 3 results) Recent Labs 07/06/18 1426 07/08/18 0413 WBC 8.20 9.37 HB 11.6* 13.0 HCT 36.3 40.1 PLT 251 315 Chemistries: Last 72 Hours (or 3 results): Recent Labs 07/06/18 1426 07/08/18 0413 NA 137 138 K 3.7 4.2 CL 108 103 BICARB 25 28 BUN 10 12 EGFRAFRICAN >60 >60 CR 0.76 0.70 GLU 80 110* CA 8.2* 9.6 Current Medications: acetaminophen (TYLENOL) tablet 325-650 mg, 325-650 mg, oral, Q6H PRN artificial tears (dextran 70-hypromellose) (NATURE'S TEARS) 0.1-0.3 % ophthalmic drops 1 dr op, 1 drop, Both Eyes, Q2H PRN baclofen (LIORESAL) tablet 10 mg, 10 mg, oral, HS bisacodyl (DULCOLAX) suppository 10 mg, 10 mg, rectal, DAILY PRN dexamethasone (DECADRON) tablet 2 mg, 2 mg, oral, Q12H (Scheduled) DULoxetine (CYMBALTA) capsule 120 mg, 120 mg, oral, HS gabapentin (NEURONTIN) capsule 300 mg, 300 mg, oral, BID gabapentin (NEURONTIN) capsule 600 mg, 600 mg, oral, HS HYDROmorphone (DILAUDID) injection 0.5-1.5 mg, 0.5-1.5 mg, intravenous, Q2H PRN LORazepam (ATIVAN) injection 1 mg, 1 mg, intravenous, ONCE NaCl 0.9%-KCl 20 mEq/L IV infusion, , intravenous, CONTINUOUS ondansetron (ZOFRAN) tablet 8 mg, 8 mg, oral, Q12H PRN oxyCODONE (immediate release) (ROXICODONE) tablet 5-15 mg, 5-15 mg, oral, Q3H PRN polyethylene glycol (MIRALAX) packet 17 g, 17 g, oral, DAILY polyethylene glycol (MIRALAX) packet 34 g, 34 g, oral, TID PRN prochlorperazine (COMPAZINE) injection 5-10 mg, 5-10 mg, intravenous, Q6H PRN prochlorperazine (COMPAZINE) tablet 5-10 mg, 5-10 mg, oral, Q6H PRN senna-docusate (SENOKOT S) 8.6-50 mg 2 tablet, 2 tablet, oral, BID tiZANidine (ZANAFLEX) tablet 4 mg, 4 mg, oral, TID PRN traZODone (DESYREL) tablet 50 mg, 50 mg, oral, HS traZODone (DESYREL) tablet 50 mg, 50 mg, oral, HS PRN Imaging: MRI SPINE THORACIC WO CONTRAST Order: [id number] Performed: 07/07/2018 15:00 Status: Final result Visible to patient: No (Not Release d) Details Reading Physician Reading Date Result Priority Jeferson Castro MD 07/07/2018 Narrative MRI THORACIC AND LUMBAR SPINE WITH AND WITHOUT CONTRAST HISTORY: eval tumor with new weakness COMPARISON: November 26, 2017. TECHNIQUE: Multiplanar multi-sequence MRI of the thoracic and lumbar spine without and wi th gadolinium based intravenous contrast: GADOTERATE MEGLUMINE 0.5 MMOL/ML (376.9 MG/ML) INT RAVENOUS SOLUTION 13 mL (accession [id number]), GADOTERATE MEGLUMINE 0.5 MMOL/ML (376.9 MG/ML) INTRAVENOUS SOLUTION 13 mL (accession [id number]) FINDINGS: Thoracic spine: There is abnormal T2 hyperintensity in the thoracic cord extending from the T5 level through the T10 level. The degree of cord expansion appears to have perhaps minima lly increased in comparison to prior study of this year, with the inferior extent of signal abnormality now reaching the T10-11 disc space and complete effacement of the CSF about the mid thoracic cord. Small cystic spaces within the mass at T8 and T9 appear slightly larger t beck in comparison with the prior study as well, changes best appreciated for example on the sagittal T1-weighted imaging, for example image 80 of series 4 in comparison to image 7 of s eries 6 on the prior examination. Postgadolinium imaging continues to demonstrate little or no enhancement associated with the mass. Again there are postsurgical changes associated wit h prior posterior decompression from T6 through T8. No abnormal marrow signal is present in the thoracic spine. The visualized prevertebral tissues are unremarkable. Lumbar spine: The conus terminates normally at L1-2. Signal in the distal spinal cord is no rmal. Alignment of the lumbar vertebral bodies is anatomic. No abnormal enhancement is prese nt in the distal thecal sac or elsewhere within the lumbar spine. There is no central canal stenosis or foraminal compromise. IMPRESSION: 1. Perhaps trace interval enlargement of the thoracic cord mass as described above. These c hanges are subtle, and includes slight further extent of the inferior T2 signal abnormality as well as subtle enlargement of the areas of cystic change within the central aspect of the mass. 2. Normal examination of the lumbar spine. I have personally reviewed the images and, if necessary, edited the report. I agree with th e report as now presented. Final signature: Jeferson Castro MD 07/07/2018 3:48 PM Preliminary: Jeferson Castro MD Dictation initiated: Jeferson Castro MD 07/07/2018 3:40 PM Specimen Collected: 07/07/18 15:40 Last Resulted: 07/07/18 15:48 CT SPINE THORACIC WO CONTRAST Order: [id number] Performed: 07/07/2018 15:12 Status: Final result Visible to patient: No (Not Release d) Details Reading Physician Reading Date Result Priority Jeferson Castro MD 07/07/2018 Narrative EXAM: CT THORACIC SPINE WITHOUT CONTRAST HISTORY: Presurgical evaluation, thoracic spine COMPARISON: November 26, 2017. TECHNIQUE: CT thoracic spine without contrast, with 2D multiplanar reconstructions. FINDINGS: There is evidence of prior posterior decompression at T6, T7, and T8. Mild accentuation of the mid thoracic kyphosis is similar in appearance to the prior examination. The patient's k nown spinal cord tumor is poorly evaluated on this noncontrast CT study, but is better seen on the MRI performed today. The remaining thoracic vertebral bodies are normally aligned. Di sc space heights are maintained. There is no osseous foraminal impingement. The visualized p revertebral soft tissues appear unremarkable. IMPRESSION: Postsurgical changes associated with prior posterior decompression of the mid t horacic spine, similar to prior studies. This study was acquired for presurgical planning. I have personally reviewed the images and, if necessary, edited the report. I agree with e report as now presented. 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 Recent acute worsening of RLE weakness with concern for tumor progression. Plan: -To OR today for tumor resection -IV ativan pre-op per patient request -Cont Dex 2mg BID -Cont home meds: duloxetine, gabapentin, baclofen, trazodone RAHEEM DOSS PA-C [facility] [address] [facility] [place] [address] Dave Mcclain MD - 07/07/2018 12:34 PM PSTNeurosurgery Preoperative Note Planned procedure: redo T8-T9 laminectomies for tumor resection, additional levels as neede d Date of procedure: 07.08.18 Booked? Yes Consented? Yes Marked? Yes NPO time: midnight tonight Labs/Studies Hct: 36 Plt: 251 WBC: 8 Na: 137 K: 3.7 Type and Screen obtained? Yes INR: 1.11 If over 50, EKG obtained this admission (Yes/No/NA)? NA Medications If on Lovenox, stopped the day prior to surgery (Yes/No/NA)? NA On ASA or other antiplatelet agent? No On LISA-I or ARB? No Imaging MRI with BFFE and CT wo to be completed today Dave Ayala MD Neurosurgery, PGY-1 Pager [phone] Dave Mcclain MD - 07/07/2018 7:38 AM PST NEUROSURGERY PROGRESS NOTE 07/07/2018 Hospital Day #: 1 Attending: Rajinder Luis MD Interval Events: -Admitted yesterday for acute worsening of RLE weakness, concern for tumor progression -Complains of severe headache this am that only responds to IV dilaudid Objective: Last Vitals: BP 121/69 | Pulse 75 | Temp 36.4 C (97.5 F) | RR 18 | Ht 1.6 m (5' 3") | W t 66.2 kg (145 lb 15.1 oz) | SpO2 97% | BMI 25.85 kg/(m^2) 24 Hour Vital Min/Max: Systolic (24hrs), Av , Min:110 , Max:121 Diastolic (24hrs), Av, Min:67, Max:72 Pulse Min: 75 Max: 96 Temp Min: 36.4 C (97.5 F) Max: 37.6 C (99.7 F) Resp Min: 16 Max: 18 SpO2 Min: 95 % Max: 97 % Intake/Output Summary (Last 24 hours) at 07/07/18 0738 Last data filed at 07/07/18 0603 Gross per 24 hour Intake 1005.75 ml Output 1425 ml Net -419.25 ml Physical Exam: Awake, alert, oriented to self, time, place, situation Following commands briskly Speech fluent PERRL EOMI Facial sensation intact Face symmetric Shoulder shrug equal bilaterally Tongue midline Strength: No pronator drift RUE: 5/5 D/B/T/HG LUE: 5/5 D/B/T/HG RLE: 3/5 HF 4/5 KE/DF/PF LLE: 5/5 HF/KE/DF/PF BLE decreased sensation, stable since 1st surgery Incision well healed Labs: Lab Results Component Value Date/Time NA 137 07/06/2018 02:26 PM NA 142 01/13/2017 03:46 PM NA 135 (L) 01/11/2017 05:45 AM K 3.7 07/06/2018 02:26 PM K 3.0 (L) 01/13/2017 03:46 PM K 3.2 (L) 01/11/2017 05:45 AM CR 0.76 07/06/2018 02:26 PM CR 0.8 01/11/2017 05:45 AM HCT 36.3 07/06/2018 02:26 PM HCT 36.0 01/13/2017 03:46 PM HCT 37.6 01/11/2017 05:05 AM WBC 8.20 07/06/2018 02:26 PM WBC 11.2 (H) 01/11/2017 05:05 AM PLT 251 07/06/2018 02:26 PM PLT 238 01/11/2017 05:05 AM Current Facility-Administered Medications Medication Dose Route Frequency acetaminophen (TYLENOL) tablet 325-650 mg 325-650 mg oral Q6H PRN artificial tears (dextran 70-hypromellose) (NATURE'S TEARS) 0.1-0.3 % ophthalmic drops 1 drop 1 drop Both Eyes Q2H PRN baclofen (LIORESAL) tablet 10 mg 10 mg oral HS bisacodyl (DULCOLAX) suppository 10 mg 10 mg rectal DAILY PRN dexamethasone (DECADRON) tablet 2 mg 2 mg oral Q12H (Scheduled) DULoxetine (CYMBALTA) capsule 120 mg 120 mg oral HS gabapentin (NEURONTIN) capsule 600 mg 600 mg oral HS HYDROmorphone (DILAUDID) injection 0.5-1.5 mg 0.5-1.5 mg intravenous Q2H PRN NaCl 0.9%-KCl 20 mEq/L IV infusion intravenous CONTINUOUS ondansetron (ZOFRAN) tablet 8 mg 8 mg oral Q12H PRN oxyCODONE (immediate release) (ROXICODONE) tablet 5-15 mg 5-15 mg oral Q3H PRN polyethylene glycol (MIRALAX) packet 17 g 17 g oral DAILY polyethylene glycol (MIRALAX) packet 34 g 34 g oral TID PRN prochlorperazine (COMPAZINE) injection 5-10 mg 5-10 mg intravenous Q6H PRN prochlorperazine (COMPAZINE) tablet 5-10 mg 5-10 mg oral Q6H PRN senna-docusate (SENOKOT S) 8.6-50 mg 2 tablet 2 tablet oral BID tiZANidine (ZANAFLEX) tablet 4 mg 4 mg oral TID PRN traZODone (DESYREL) tablet 50 mg 50 mg oral HS traZODone (DESYREL) tablet 50 mg 50 mg oral HS PRN Imaging: MRI completed overnight ASSESSMENT/PLAN: Qiana Worrell is a 27 y.o. 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 Acute worsening of RLE weakness. Con cern for tumor progression. MRI completed. -Booked for OR 12. for redo thoracic laminectomies for tumor resection -will need BFFE MRI T5-T12 before OR -will consent and pre-op today -npo at midnight Please page [phone] with any questions or concerns. Dave Ayala MD Neurosurgery, PGY-1 Pager [phone] documented in this encounter Plan of Treatment Not on filedocumented as of this encounter Procedures + +--------+ + + + | Procedure Name | Priori | Date/Time | Associated Diagnosis | Comments | | | ty | | | | + +--------+ + + + | RENAL FUNCTION SET | Urgent | 07/11/2018 | | Results for this | | (NA,K,CL,CO2,BUN,CRE | | 7:21 AM | | procedure are in the | | AT,GLUC,CA,PHOS,ALB | | PST | | results section. | | ) | | | | | + +--------+ + + + | CAPILLARY BLOOD | Routin | 07/10/2018 | Thoracic spine | Results for this | | GLUCOSE (NO CHG), | e | 9:55 AM | tumor | procedure are in the | | POC | | PST | | results section. | + +--------+ + + + | CBC (HEMOGRAM) ONLY | Urgent | 07/10/2018 | | Results for this | | | | 6:01 AM | | procedure are in the | | | | PST | | results section. | + +--------+ + + + | RENAL FUNCTION SET | Urgent | 07/10/2018 | | Results for this | | (NA,K,CL,CO2,BUN,CRE | | 6:01 AM | | procedure are in the | | AT,GLUC,CA,PHOS,ALB | | PST | | results section. | | ) | | | | | + +--------+ + + + | CBC ONLY | Urgent | 07/10/2018 | | Results for this | | | | 6:01 AM | | procedure are in the | | | | PST | | results section. | + +--------+ + + + | MAGNESIUM, PLASMA | Urgent | 07/10/2018 | | Results for this | | | | 6:01 AM | | procedure are in the | | | | PST | | results section. | + +--------+ + + + | CAPILLARY BLOOD | Routin | 07/09/2018 | Thoracic spine | Results for this | | GLUCOSE (NO CHG), | e | 10:42 PM | tumor | procedure are in the | | POC | | PST | | results section. | + +--------+ + + + | CAPILLARY BLOOD | Routin | 07/09/2018 | Thoracic spine | Results for this | | GLUCOSE (NO CHG), | e | 7:48 PM | tumor | procedure are in the | | POC | | PST | | results section. | + +--------+ + + + | CAPILLARY BLOOD | Routin | 07/09/2018 | Thoracic spine | Results for this | | GLUCOSE (NO CHG), | e | 4:30 PM | tumor | procedure are in the | | POC | | PST | | results section. | + +--------+ + + + | CBC (HEMOGRAM) ONLY | Urgent | 07/09/2018 | | Results for this | | | | 3:30 AM | | procedure are in the | | | | PST | | results section. | + +--------+ + + + | RENAL FUNCTION SET | Urgent | 07/09/2018 | | Results for this | | (NA,K,CL,CO2,BUN,CRE | | 3:30 AM | | procedure are in the | | AT,GLUC,CA,PHOS,ALB | | PST | | results section. | | ) | | | | | + +--------+ + + + | CBC ONLY | Urgent | 07/09/2018 | | Results for this | | | | 3:30 AM | | procedure are in the | | | | PST | | results section. | + +--------+ + + + | MAGNESIUM, PLASMA | Urgent | 07/09/2018 | | Results for this | | | | 3:30 AM | | procedure are in the | | | | PST | | results section. | + +--------+ + + + | MRI SPINE THORACIC | Urgent | 07/08/2018 | | Results for this | | WO CONTRST | | 11:34 PM | | procedure are in the | | | | PST | | results section. | + +--------+ + + + | OPERATION RECORD | | 07/08/2018 | | Results for this | | | | 7:40 PM | | procedure are in the | | | | PST | | results section. | + +--------+ + + + | PROCEDURE NOTE | Routin | 07/08/2018 | | Results for this | | | e | 4:53 PM | | procedure are in the | | | | PST | | results section. | + +--------+ + + + | CBC (HEMOGRAM) ONLY | Urgent | 07/08/2018 | | Results for this | | | | 1:46 PM | | procedure are in the | | | | PST | | results section. | + +--------+ + + + | RENAL FUNCTION SET | Urgent | 07/08/2018 | | Results for this | | (NA,K,CL,CO2,BUN,CRE | | 1:46 PM | | procedure are in the | | AT,GLUC,CA,PHOS,ALB | | PST | | results section. | | ) | | | | | + +--------+ + + + | CBC ONLY | Urgent | 07/08/2018 | | Results for this | | | | 1:46 PM | | procedure are in the | | | | PST | | results section. | + +--------+ + + + | MAGNESIUM, PLASMA | Urgent | 07/08/2018 | | Results for this | | | | 1:46 PM | | procedure are in the | | | | PST | | results section. | + +--------+ + + + | CAPILLARY BLOOD | Routin | 07/08/2018 | Thoracic spine | Results for this | | GLUCOSE (NO CHG), | e | 1:10 PM | tumor | procedure are in the | | POC | | PST | | results section. | + +--------+ + + + | PROCEDURE NOTE | Routin | 07/08/2018 | | Results for this | | | e | 1:03 PM | | procedure are in the | | | | PST | | results section. | + +--------+ + + + | X-RAY SPINE THORACIC | Urgent | 07/08/2018 | | Results for this | | 2 VIEWS | | 12:54 PM | | procedure are in the | | | | PST | | results section. | + +--------+ + + + | X-RAY FLUOROSCOPY IN | Urgent | 07/08/2018 | | Results for this | | OR > 1 HOUR | | 12:51 PM | | procedure are in the | | | | PST | | results section. | + +--------+ + + + | SURGICAL PATHOLOGY | Routin | 07/08/2018 | | Results for this | | | e | 12:11 PM | | procedure are in the | | | | PST | | results section. | + +--------+ + + + | THORACIC LAMINECTOMY | | 07/08/2018 | spinal cord tumor | | | | | 8:48 AM | | | | | | PST | | | + +--------+ + + + | CBC (HEMOGRAM) ONLY | Routin | 07/08/2018 | | Results for this | | | e | 4:13 AM | | procedure are in the | | | | PST | | results section. | + +--------+ + + + | BASIC METABOLIC SET | Routin | 07/08/2018 | | Results for this | | (NA, K, CL, TCO2, | e | 4:13 AM | | procedure are in the | | BUN, CR, GLU, CA) | | PST | | results section. | + +--------+ + + + | CBC ONLY | Routin | 07/08/2018 | | Results for this | | | e | 4:13 AM | | procedure are in the | | | | PST | | results section. | + +--------+ + + + | COAGULOPATHY PANEL | Routin | 07/08/2018 | | Results for this | | (INR,APTT,FIBRINOGEN | e | 4:13 AM | | procedure are in the | | ) | | PST | | results section. | + +--------+ + + + | CARDIOLOGY | | 07/08/2018 | | Results for this | | | | 12:00 AM | | procedure are in the | | | | PST | | results section. | + +--------+ + + + | INTRAOPERATIVE NEURO | Routin | 07/08/2018 | | Results for this | | MONITORING | e | | | procedure are in the | | | | | | results section. | + +--------+ + + + | CT SPINE THORACIC WO | Routin | 07/07/2018 | | Results for this | | CONTRAST | e | 3:12 PM | | procedure are in the | | | | PST | | results section. | + +--------+ + + + | MRI SPINE THORACIC | Routin | 07/07/2018 | | Results for this | | WO CONTRST | e | 3:00 PM | | procedure are in the | | | | PST | | results section. | + +--------+ + + + | MRI SPINE THOR / | Routin | 07/07/2018 | | Results for this | | LUMB WWO CONTRAST | e | 12:42 AM | | procedure are in the | | | | PST | | results section. | + +--------+ + + + | CBC (HEMOGRAM) ONLY | Routin | 07/06/2018 | | Results for this | | | e | 2:26 PM | | procedure are in the | | | | PST | | results section. | + +--------+ + + + | BASIC METABOLIC SET | Routin | 07/06/2018 | | Results for this | | (NA, K, CL, TCO2, | e | 2:26 PM | | procedure are in the | | BUN, CR, GLU, CA) | | PST | | results section. | + +--------+ + + + | CBC ONLY | Routin | 07/06/2018 | | Results for this | | | e | 2:26 PM | | procedure are in the | | | | PST | | results section. | + +--------+ + + + | COAGULOPATHY PANEL | Routin | 07/06/2018 | | Results for this | | (INR,APTT,FIBRINOGEN | e | 2:26 PM | | procedure are in the | | ) | | PST | | results section. | + +--------+ + + + | ANTIBODY SCREEN | Routin | 07/06/2018 | | Results for this | | | e | 2:26 PM | | procedure are in the | | | | PST | | results section. | + +--------+ + + + | TYPE AND SCREEN | Routin | 07/06/2018 | | Results for this | | | e | 2:26 PM | | procedure are in the | | | | PST | | results section. | + +--------+ + + + | ABO & RH TYPE | Routin | 07/06/2018 | | Results for this | | | e | 2:26 PM | | procedure are in the | | | | PST | | results section. | + +--------+ + + + documented in this encounter Results RENAL FUNCTION SET (NA,K,CL,CO2,BUN,CREAT,GLUC,CA,PHOS,ALB ) (07/11/2018 7:21 AM PST) + + + + + + | Component | Value | Ref Range | Performed | Pathologist | | | | | At | Signature | + + + + + + | GLUCOSE, | 128 (H) | 70 - 99 mg/dL | [facility] | | | PLASMA | | | LABORATORY | | | (LAB) | | | SERVICES, | | | | | | CORE | | + + + + + + | BUN, PLASMA | 12 | 6 - 20 mg/dL | [facility] | | | (LAB) | | | LABORATORY | | | | | | SERVICES, | | | | | | CORE | | + + + + + + | CREATININE | 0.45 (L) | 0.60 - 1.10 | [facility] | | | PLASMA | | mg/dL | LABORATORY | | | (LAB) | | | SERVICES, | | | | | | CORE | | + + + + + + | EGFR | >60 | >60 mL/min | [facility] | | | - | | | LABORATORY | | | AND[facility]RAN | | | SERVICES, | | | | | | CORE | | + + + + + + | EGFR NON | >60 | >60 mL/min | [facility] | | | -LEXIE | | | LABORATORY | | | RICAN | | | SERVICES, | | | | | | CORE | | + + + + + + | SODIUM, | 137 | 136 - 145 | [facility] | | | PLASMA | | mmol/L | LABORATORY | | | (LAB) | | | SERVICES, | | | | | | CORE | | + + + + + + | POTASSIUM, | 3.7 | 3.4 - 5.0 | [facility] | | | PLASMA | | mmol/L | LABORATORY | | | (LAB) | | | SERVICES, | | | | | | CORE | | + + + + + + | CHLORIDE, | 102 | 97 - 108 mmol/L | [facility] | | | PLASMA | | | LABORATORY | | | (LAB) | | | SERVICES, | | | | | | CORE | | + + + + + + | TOTAL CO2, | 31 | 21 - 32 mmol/L | [facility] | | | PLASMA | | | LABORATORY | | | (LAB) | | | SERVICES, | | | | | | CORE | | + + + + + + | CALCIUM, | 8.8 | 8.6 - 10.2 | [facility] | | | PLASMA | | mg/dL | LABORATORY | | | (LAB) | | | SERVICES, | | | | | | CORE | | + + + + + + | CALCIUM(ALB | 9.8 | 8.6 - 10.2 | [facility] | | | CORRECTED) | | mg/dL | LABORATORY | | | | | | SERVICES, | | | | | | CORE | | + + + + + + | ALBUMIN, | 2.7 (L) | 3.5 - 4.7 g/dL | [facility] | | | PLASMA | | | LABORATORY | | | (LAB) | | | SERVICES, | | | | | | CORE | | + + + + + + | PHOSPHORUS, | 2.8 | 2.4 - 4.7 mg/dL | [facility] | | | PLASMA | | | LABORATORY | | | (LAB) | | | SERVICES, | | | | | | CORE | | + + + + + + | POTASSIUM | No Hemo | | [facility] | | | CMNT | | | LABORATORY | | | | | | SERVICES, | | | | | | CORE | | + + + + + + | ANION GAP | 4 | 4 - 11 mmol/L | [facility] | | | | | | LABORATORY | | | | | | SERVICES, | | | | | | CORE | | + + + + + + | ANION | 7 | 4 - 11 mmol/L | [facility] [...] | | Kidney Failure Estimated GFR greater than 60 mL/min/1.73 sq m is of | | | limited clinical value. The MDRD equation is not valid in the | | | following situations: - Patients under 18 years of age - Severe | | | malnutrition or obesity - Vegetarian diet - Rapidly changing kidney | | | function - Amputees, paraplegics, or other muscle-wasting diseses | | + + + + + + + + | Performing | Address | City/State/Zipcode | Phone Number | | Organization | | | | + + + + + | [facility] | [address] | [place] [address] | | | SERVICES, [place] | [address] | | | + + + + + CAPILLARY BLOOD GLUCOSE (NO CHG), POC (07/10/2018 9:55 AM PST) + +---------+ + + + | Component | Value | Ref Range | Performed | Pathologist | | | | | At | Signature | + +---------+ + + + | BLOOD | 102 (H) | 60 - 99 mg/dL | [facility] | | | GLUCOSE, | | | [place] | | | POC | | | [place] | | | | | | [...] [facility] | [address] | [place], [place] | | | [facility] | [facility] | [address] | | | TESTS | | | | + + + + + CBC (HEMOGRAM) ONLY (07/10/2018 6:01 AM PST) + + + + + + | Component | Value | Ref Range | Performed | Pathologist | | | | | At | Signature | + + + + + + | WHITE CELL | 15.20 (H) | 3.50 - 10.80 | [facility] | | | COUNT | | K/cu mm | LABORATORY | | | | | | SERVICES, | | | | | | CORE | | + + + + + + | RED CELL | 4.59 | 4.00 - 5.20 | [facility] | | | COUNT | | M/cu mm | LABORATORY | | | | | | SERVICES, | | | | | | CORE | | + + + + + + | HEMOGLOBIN | 12.9 | 12.0 - 16.0 | [facility] | [...] + + + + | MCV | 85.6 | 80.0 - 100.0 fL | [facility] | | | | | | LABORATORY | | | | | | SERVICES, | | | | | | CORE | | + + + + + + | MCHC | 32.8 | 32.0 - 36.0 | [facility] | | | | | g/dL | LABORATORY | | | | | | SERVICES, | | | | | | CORE | | + + + + + + | RDW SD | 40.5 | 35.1 - 46.3 fL | [facility] | | | | | | LABORATORY | | | | | | SERVICES, | | | | | | CORE | | + + + + + + | PLATELET | 325 | 150 - 400 K/cu | [facility] | | | COUNT | | mm | LABORATORY | | | | | | SERVICES, | | | | | | CORE | | + + + + + + | MPV | 9.8 | 9.7 - 12.3 fL | [facility] [...] | + + + + + | [facility] | [address] | [place] [address] | | | SERVICES, CORE | [address] | | | + + + + + MAGNESIUM, PLASMA (07/10/2018 6:01 AM PST) + +-------+ + + + | Component | Value | Ref Range | Performed | Pathologist | | | | | At | Signature | + +-------+ + + + | MAGNESIUM,P | 2.0 | 1.6 - 2.6 mg/dL | [facility] | | | LASMA | | | LABORATORY | | | [...] | + + + + + | [facility] | [address] | [place] [address] | | | SERVICES, CORE | [address] | | | + + + + + RENAL FUNCTION SET (NA,K,CL,CO2,BUN,CREAT,GLUC,CA,PHOS,ALB ) (07/10/2018 6:01 AM PST) + + + + + + | Component | Value | Ref Range | Performed | Pathologist | | | | | At | Signature | + + + + + + | GLUCOSE, | 124 (H) | 70 - 99 mg/dL | [facility] | | | PLASMA | | | LABORATORY | | | (LAB) | | | SERVICES, | | | | | | CORE | | + + + + + + | BUN, PLASMA | 9 | 6 - 20 mg/dL | [facility] | | | (LAB) | | | LABORATORY | | | | | | SERVICES, | | | | | | CORE | | + + + + + + | CREATININE | 0.52 (L) | 0.60 - 1.10 | [facility] | | | PLASMA | | mg/dL | LABORATORY | | | (LAB) | | | SERVICES, | | | | | | CORE | | + + + + + + | EGFR | >60 | >60 mL/min | [facility] | | | - | | | LABORATORY | | | [facility] | | | SERVICES, | | | | | | CORE | | + + + + + + | EGFR NON | >60 | >60 mL/min | [facility] | | | -LEXIE | | | LABORATORY | | | RICAN | | | SERVICES, | | | | | | CORE | | + + + + + + | SODIUM, | 138 | 136 - 145 | [facility] | | | PLASMA | | mmol/L | LABORATORY | | | (LAB) | | | SERVICES, | | | | | | CORE | | + + + + + + | POTASSIUM, | 4.0 | 3.4 - 5.0 | [facility] | | | PLASMA | | mmol/L | LABORATORY | | | (LAB) | | | SERVICES, | | | | | | CORE | | + + + + + + | CHLORIDE, | 101 | 97 - 108 mmol/L | [facility] | | | PLASMA | | | LABORATORY | | | (LAB) | | | SERVICES, | | | | | | CORE | | + + + + + + | TOTAL CO2, | 32 | 21 - 32 mmol/L | [facility] | | | PLASMA | | | LABORATORY | | | (LAB) | | | SERVICES, | | | | | | CORE | | + + + + + + | CALCIUM, | 9.0 | 8.6 - 10.2 | [facility] | | | PLASMA | | mg/dL | LABORATORY | | | (LAB) | | | SERVICES, | | | | | | CORE | | + + + + + + | CALCIUM(ALB | 9.9 | 8.6 - 10.2 | [facility] | | | CORRECTED) | | mg/dL | LABORATORY | | | | | | SERVICES, | | | | | | CORE | | + + + + + + | ALBUMIN, | 2.9 (L) | 3.5 - 4.7 g/dL | [facility] | | | PLASMA | | | LABORATORY | | | (LAB) | | | SERVICES, | | | | | | CORE | | + + + + + + | PHOSPHORUS, | 3.6 | 2.4 - 4.7 mg/dL | [facility] | | | PLASMA | | | LABORATORY | | | (LAB) | | | SERVICES, | | | | | | CORE | | + + + + + + | POTASSIUM | No Hemo | | [facility] | | | CMNT | | | LABORATORY | | | | | | SERVICES, | | | | | | CORE | | + + + + + + | ANION GAP | 5 | 4 - 11 mmol/L | [facility] | | | | | | LABORATORY | | | | | | SERVICES, | | | | | | CORE | | + + + + + + | ANION | 7 | 4 - 11 mmol/L | [facility] [...] the MDRD equation recommended by the | [facility] | | National Kidney Disease Education Program. Estimated GFR | LABORATORY | | Interpretive Information: <60 mL/min/1.73 sq m | H[facility]ACIO, CORE | | Chronic Kidney Disease <15 mL/min/1.73 sq m | | | Kidney Failure Estimated GFR greater than 60 mL/min/1.73 sq m is of | | | limited clinical value. The MDRD equation is not valid in the | | | following situations: - Patients under 18 years of age - Severe | | | malnutrition or obesity - Vegetarian diet - Rapidly changing kidney | | | function - Amputees, paraplegics, or other muscle-wasting diseses | | + + + + + + + + | Performing | Address | City/State/Zipcode | Phone Number | | Organization | | | | + + + + + | [facility] | [address] | [place] [address] | | | [place] | [address] | | | + + + + + CAPILLARY BLOOD GLUCOSE (NO CHG), POC (07/09/2018 10:42 PM PST) + +---------+ + + + | Component | Value | Ref Range | Performed | Pathologist | | | | | At | Signature | + +---------+ + + + | BLOOD | 135 (H) | 60 - 99 mg/dL | [facility] | | | GLUCOSE, | | | [place] | | | POC | | | [place] | | | | | | [...] [facility] | [address] | [place], [place] | | | [facility] | [address] | [phone] | | | TESTS | | | | + + + + + CAPILLARY BLOOD GLUCOSE (NO CHG), POC (07/09/2018 7:48 PM PST) + +---------+ + + + | Component | Value | Ref Range | Performed | Pathologist | | | | | At | Signature | + +---------+ + + + | BLOOD | 140 (H) | 60 - 99 mg/dL | [...] | [facility] | [address] | [place], [place] | | | [facility] | [address] | [phone] | | | TESTS | | | | + + + + + CAPILLARY BLOOD GLUCOSE (NO CHG), POC (07/09/2018 4:30 PM PST) + +---------+ + + + | Component | Value | Ref Range | Performed | Pathologist | | | | | At | Signature | + +---------+ + + + | BLOOD | 130 (H) | 60 - 99 mg/dL | [...] [facility] | [address] | [place] | | | [facility] | [address] | [phone] | | | TESTS | | | | + + + + + CBC (HEMOGRAM) ONLY (07/09/2018 3:30 AM PST) + + + + + + | Component | Value | Ref Range | Performed | Pathologist | | | | | At | Signature | + + + + + + | WHITE CELL | 17.51 (H) | 3.50 - 10.80 | [facility] | | | COUNT | | K/cu mm | LABORATORY | | | | | | SERVICES, | | | | | | CORE | | + + + + + + | RED CELL | 4.90 | 4.00 - 5.20 | [facility] | | | COUNT | | M/cu mm | LABORATORY | | | | | | SERVICES, | | | | | | CORE | | + + + + + + | HEMOGLOBIN | 13.5 | 12.0 - 16.0 | [facility] | | | | | g/dL | LABORATORY | | | | | | SERVICES, | | | | | | CORE | | + + + + + + | HEMATOCRIT | 41.3 | 36.0 - 46.0 % | [facility] | | | | | | LABORATORY | | | | | | SERVICES, | | | | | | CORE | | + + + + + + | MCV | 84.3 | 80.0 - 100.0 fL | [facility] | | | | | | LABORATORY | | | | | | SERVICES, | | | | | | CORE | | + + + + + + | MCHC | 32.7 | 32.0 - 36.0 | [facility] | | | | | g/dL | LABORATORY | | | | | | SERVICES, | | | | | | CORE | | + + + + + + | RDW SD | 39.5 | 35.1 - 46.3 fL | [facility] | | | | | | LABORATORY | | | | | | SERVICES, | | | | | | CORE | | + + + + + + | PLATELET | 336 | 150 - 400 K/cu | [facility] | | | COUNT | | mm | LABORATORY | | | | | | SERVICES, | | | | | | CORE | | + + + + + + | MPV | 9.7 | 9.7 - 12.3 fL | [facility] [...] | + + + + + | [facility] | [address] | [place] [address] | | | SERVICES, CORE | [address] | | | + + + + + MAGNESIUM, PLASMA (07/09/2018 3:30 AM PST) + +-------+ + + + | Component | Value | Ref Range | Performed | Pathologist | | | | | At | Signature | + +-------+ + + + | MAGNESIUM,P | 1.8 | 1.6 - 2.6 mg/dL | [facility] | | | LASMA | | | LABORATORY | | | [...] | [facility] | [address] | [place] [address] | | | SERVICES, CORE | [address] | | | + + + + + RENAL FUNCTION SET (NA,K,CL,CO2,BUN,CREAT,GLUC,CA,PHOS,ALB ) (07/09/2018 3:30 AM PST) + + + + + + | Component | Value | Ref Range | Performed | Pathologist | | | | | At | Signature | + + + + + + | GLUCOSE, | 140 (H) | 70 - 99 mg/dL | [facility] | | | PLASMA | | | LABORATORY | | | (LAB) | | | SERVICES, | | | | | | CORE | | + + + + + + | BUN, PLASMA | 8 | 6 - 20 mg/dL | [facility] | | | (LAB) | | | LABORATORY | | | | | | SERVICES, | | | | | | CORE | | + + + + + + | CREATININE | 0.58 (L) | 0.60 - 1.10 | [facility] | | | PLASMA | | mg/dL | LABORATORY | | | (LAB) | | | SERVICES, | | | | | | CORE | | + + + + + + | EGFR | >60 | >60 mL/min | [facility] | | | - | | | LABORATORY | | | [facility] | | | SERVICES, | | | | | | CORE | | + + + + + + | EGFR NON | >60 | >60 mL/min | [facility] | | | -[facility] | | | LABORATORY | | | RICAN | | | SERVICES, | | | | | | CORE | | + + + + + + | SODIUM, | 137 | 136 - 145 | [facility] | | | PLASMA | | mmol/L | LABORATORY | | | (LAB) | | | SERVICES, | | | | | | CORE | | + + + + + + | POTASSIUM, | 4.0 | 3.4 - 5.0 | [facility] | | | PLASMA | | mmol/L | LABORATORY | | | (LAB) | | | SERVICES, | | | | | | CORE | | + + + + + + | CHLORIDE, | 104 | 97 - 108 mmol/L | [facility] | | | PLASMA | | | LABORATORY | | | (LAB) | | | SERVICES, | | | | | | CORE | | + + + + + + | TOTAL CO2, | 30 | 21 - 32 mmol/L | [facility] | | | PLASMA | | | LABORATORY | | | (LAB) | | | SERVICES, | | | | | | CORE | | + + + + + + | CALCIUM, | 9.1 | 8.6 - 10.2 | [facility] | | | PLASMA | | mg/dL | LABORATORY | | | (LAB) | | | SERVICES, | | | | | | CORE | | + + + + + + | CALCIUM(ALB | 9.6 | 8.6 - 10.2 | [facility] | | | CORRECTED) | | mg/dL | LABORATORY | | | | | | SERVICES, | | | | | | CORE | | + + + + + + | ALBUMIN, | 3.4 (L) | 3.5 - 4.7 g/dL | [facility] | | | PLASMA | | | LABORATORY | | | (LAB) | | | SERVICES, | | | | | | CORE | | + + + + + + | PHOSPHORUS, | 3.7 | 2.4 - 4.7 mg/dL | [facility] | | | PLASMA | | | LABORATORY | | | (LAB) | | | SERVICES, | | | | | | CORE | | + + + + + + | POTASSIUM | No Hemo | | [facility] | | | CMNT | | | LABORATORY | | | | | | SERVICES, | | | | | | CORE | | + + + + + + | ANION GAP | 3 (L) | 4 - 11 mmol/L | [facility] | | | | | | LABORATORY | | | | | | SERVICES, | | | | | | CORE | | + + + + + + | ANION | 4 | 4 - 11 mmol/L | [facility] [...] | | Kidney Failure Estimated GFR greater than 60 mL/min/1.73 sq m is of | | | limited clinical value. The MDRD equation is not valid in the | | | following situations: - Patients under 18 years of age - Severe | | | malnutrition or obesity - Vegetarian diet - Rapidly changing kidney | | | function - Amputees, paraplegics, or other muscle-wasting diseses | | + + + + + + + + | Performing | Address | City/State/Zipcode | Phone Number | | Organization | | | | + + + + + | [facility] | [address] | [place] [address] | | | SERVICES, [place] | [address] | | | + + + + + MRI SPINE THORACIC WO CONTRAST (07/08/2018 11:34 PM PST) + + | Specimen | + + | | + + + + + | Narrative | Performed At | + + + | MRI THORACIC SPINE WITHOUT CONTRAST HISTORY: s/p tumor | [facility] | | debulking, BFFE through T5-9 please COMPARISON: July 07, | RADIOLOGY VOICE | | 2018. TECHNIQUE: Multiplanar multi-sequence MRI thoracic spine | RECOGNITION 2 | | without contrast. BFFE sequences were unable to be acquired due to | | | technical failure. FINDINGS: There has been interval extension of | | | posterior decompression in the thoracic spine to T10 level and there | | | are associated postoperative changes in the overlying soft tissues | | | with small amounts of fluid in the dorsal epidural space extending to | | | the upper T11 level. The degree of cord expansion appears decreased as | | | does the extensive T2 hyperintensity throughout the thoracic cord, | | | with more discrete cystic areas now identified in the superior aspect | | | of the thoracic cord likely secondary to debulking of the thoracic | | | cord mass. There remains mild accentuation of the thoracic kyphosis in | | | the mid thoracic spine. Marrow signal in the vertebral bodies is | | | normal. No epidural hematoma is present. IMPRESSION: Interval | | | tumor debulking in the mid thoracic cord with associated decrease in | | | cord expansion and associated edema within the cord. Posterior | | | decompression has been extended inferiorly. I have personally | | | reviewed the images and, if necessary, edited the report. I agree with | | | the report as now presented. Final signature: Jeferson Castro | | | 07/09/2018 4:06 PM Preliminary: Jeferson Castro MD | | | Dictation initiated: Jeferson Castro MD 07/09/2018 3:59 PM | | + + + + + | Procedure Note | + + | Service Account, Radiant Res In Interface - 07/09/2018 4:07 PM PST MRI THORACIC | | SPINE WITHOUT CONTRAST HISTORY: s/p tumor debulking, BFFE through T5-9 please | | COMPARISON: July 07, 2018. TECHNIQUE: Multiplanar multi-sequence MRI thoracic spine | | without contrast. BFFE sequences were unable to be acquired due to technical failure. | | FINDINGS:There has been interval extension of posterior decompression in the thoracic | | spine to T10 level and there are associated postoperative changes in the overlying soft | | tissues with small amounts of fluid in the dorsal epidural space extending to the upper | | T11 level. The degree of cord expansion appears decreased as does the extensive T2 | | hyperintensity throughout the thoracic cord, with more discrete cystic areas now | | identified in the superior aspect of the thoracic cord likely secondary to debulking of | | the thoracic cord mass. There remains mild accentuation of the thoracic kyphosis in the | | mid thoracic spine. Marrow signal in the vertebral bodies is normal. No epidural | | hematoma is present. IMPRESSION: Interval tumor debulking in the mid thoracic cord with | | associated decrease in cord expansion and associated edema within the cord. Posterior | | decompression has been extended inferiorly. I have personally reviewed the images and, | | if necessary, edited the report. I agree with the report as now presented. Final | | signature: Jeferson Castro MD 07/09/2018 4:06 PM Preliminary: Jeferson Castro MD | | Dictation initiated: Jeferson Castro MD 07/09/2018 3:59 PM | |Final signature: Jeferson Castro MD 07/09/2018 4:06 PM | |Preliminary: Jeferson Castro MD | |Dictation initiated: Jeferson Castro MD 07/09/2018 3:59 PM | + + + +---------+ + + | Performing | Address | City/State/Zipcode | Phone Number | | Organization | | | | + +---------+ + + | [facility] | | | | | VOICE RECOGNITION 2 | | | | + +---------+ + + OPERATION RECORD (07/08/2018 7:40 PM PST) + + | Procedure Note | + + | Rajinder Luis MD - 07/08/2018 7:40 PM PST Date of Service: 07/08/2018 Attending | | Surgeon: Rajinder Luis MD Deckhand(s): Yokasta Webb MD. 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 Redo T8 laminectomy, T9 laminectomy for resection of | | intramedullary tumor.2. Use of intraoperative microscope.3. Use of fluoroscopy | | interpretation.4. Neuromonitoring with SSEP and MEP.5. Ultrasound | | interpretation.Anesthesia: General.Estimated Blood Loss: 50 mL.Intravenous Fluids: | | See Anesthesia.Specimens: Permanent only.Implants: None.Complications: None.Drains: | | None.Disposition: PACU to Neuro ICU.Findings: Large soft tumor which was debulked. | | Clear margins seen on medial aspect of the tumor with subtle blending into | | normal-appearing spinal cord at more ventral area. There was 50% loss of left lower | | extremity MEP during resection. Right lower extremity MEP was unreliable from the | | beginning. Dura was closed with Garards Fort-Thaddeus, tacked up with 4-0 Nurolon sutures. The | | muscle closed in layers. Skin was closed with 2-0 interrupted vertical mattress | | sutures.Indications For Procedure: Please see [facility] for full details, but briefly, | | Qiana Worrell is a 27-year-old woman who has previously been seen by us over the | | last 3 years. 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 She noted new onset of right lower | | extremity weakness on July 06. She then presented to the hospital for evaluation. | | MRI showed cord dissection at T7-9, with 2 focal intramedullary regions. A full PARQ | | discussion was held with the patient. Consent was signed for debulking and | | decompression of the spinal cord. She demonstrated good understanding and consent was | | signed and placed in chart prior to proceeding.Procedure In Detail: Patient was | | identified in the preoperative holding area. She was brought back to the operating room | | on a [facility]. She was intubated without difficulty by the anesthesia team. | | Eyes were taped shut using Tegaderm. She was placed prone on the Hair table. All | | pressure points were carefully padded. Her previous incision was identified. We used | | fluoroscopy to identify the T9 vertebral body and the T10 vertebral body and planned | | incision that encompassed T8 and T9. We marked out the incision accordingly. This was | | infused with local anesthetic. We then prepped it in the usual sterile manner which | | included Hibiclens, alcohol, and ChloraPrep. ChloraPrep was allowed to dry prior to | | draping which included an Ioban drape. Prior to beginning the procedure, I performed a | | team pause where we verified this was the correct patient and the correct position and | | about to perform the correct procedure. A #10 blade was used to perform skin incision. | | We then performed the dissection down slowly with Bovie electrocautery until we | | encountered bone which was the remnant of the T9 lamina and spinous process. Using that | | plane, we then dissected carefully until we could identify the T8 dura as well. We | | then proceeded to start drilling over the T9 lamina until we encountered normal dura. | | We then extended our laminectomy slowly using a combination of chomping with Kerrison | | rongeurs as well as drilling. Once we had exposed a good length of the dura from T8 to | | T9, we then used the ultrasound and identified the 2 cystic portions that we were | | targeting. We then opened up the dura using an 11 blade. We kept the area intact. We | | then opened up the dura cranially and caudally and tacked it out by using 4-0 Nurolon. | | We then carefully dissected out the tumor from the dura using microdissectors. We used | | the suction with a trap attached to it to decompress the tumor. There was a clear plane | | between the tumor and the medial aspect of the tumor margin. As we continued to do | | that, we periodically checked motors. We did notice there was a 50% decrease in left | | lower extremity MEPs after some resection. After that we resected a little bit and | | stopped and there were no other changes. We did notice that we decompressed the syrinx | | by using ultrasounds at that point. Once we were happy with the removal of tumor, we | | then proceeded to start closing. We tacked up the suture with 4-0 Nurolon in several | | portions and then closed it with a running 6-0 Garards Fort-Thaddeus suture. We tacked out the | | sutures to the muscle stitches. The fascia was closed with 0 Vicryl sutures. The | | Oliver fascia was closed with 2-0 inverted Vicryl sutures. Dermis was closed with 3-0 | | inverted Vicryl sutures. Skin was closed with interrupted nylon sutures. This was | | cleaned and bacitracin and Telfa were placed over the incision. At the end of case, all | | needle counts, sponge counts, and instrument counts were correct x2.Yokasta Webb, | | MDIntraoperative ultrasound report:Indication: Intraoperative evaluation of adequacy of | | bony exposure and intradural pathology prior to durotomy.Organs or structures were | | viewed: spinal cord and tumorImpression: Compressed spinal cord with pusitilityImage was | | saved in the Chart under media tab. Personally viewed and interpreted in real time | | intraoperatively.Rajinder Enamorado MD was scrubbed and actively participated performing | | the critical portions of the operation.Rajinder Luis MDJLG/MODLDD: 07/08/2018 | | 19:06:44DT: 07/08/2018 19:40:29Job #: [id number] | |Indication: Intraoperative evaluation of adequacy of bony exposure and intradural pathology prior to durotomy. | | | |Organs or structures were viewed: spinal cord and tumor | |Impression: Compressed spinal cord with pusitility | | | |Image was saved in the Chart under media tab. Personally viewed and interpreted in real ti me intraoperatively. | | | | | |Rajinder Enamorado MD was scrubbed and actively participated performing the critical portio ns of the operation. | | | | | |Rajinder Luis MD | |JLG/MODL | | | | | | /[id number] | + + PROCEDURE NOTE (07/08/2018 4:53 PM PST)CBC (HEMOGRAM) ONLY (07/08/2018 1:46 PM PST) + +---------+ + + + | Component | Value | Ref Range | Performed | Pathologist | | | | | At | Signature | + +---------+ + + + | WHITE CELL | 9.75 | 3.50 - 10.80 | [facility] | | | COUNT | | K/cu mm | LABORATORY | | | | | | SERVICES, | | | | | | CORE | | + +---------+ + + + | RED CELL | 4.48 | 4.00 - 5.20 | [facility] | | | COUNT | | M/cu mm | LABORATORY | | | | | | SERVICES, | | | | | | CORE | | + +---------+ + + + | HEMOGLOBIN | 12.5 | 12.0 - 16.0 | [facility] | | | | | g/dL | LABORATORY | | | | | | SERVICES, | | | | | | CORE | | + +---------+ + + + | HEMATOCRIT | 37.3 | 36.0 - 46.0 % | [facility] | | | | | | LABORATORY | | | | | | SERVICES, | | | | | | CORE | | + +---------+ + + + | MCV | 83.3 | 80.0 - 100.0 fL | [facility] | | | | | | LABORATORY | | | | | | SERVICES, | | | | | | CORE | | + +---------+ + + + | MCHC | 33.5 | 32.0 - 36.0 | [facility] | | | | | g/dL | LABORATORY | | | | | | SERVICES, | | | | | | CORE | | + +---------+ + + + | RDW SD | 39.5 | 35.1 - 46.3 fL | [facility] | | | | | | LABORATORY | | | | | | SERVICES, | | | | | | CORE | | + +---------+ + + + | PLATELET | 289 | 150 - 400 K/cu | [facility] | | | COUNT | | mm | LABORATORY | | | | | | SERVICES, | | | | | | CORE | | + +---------+ + + + | MPV | 9.6 (L) | 9.7 - 12.3 fL | [facility] | | | | | | LABORATORY | | | | | | SERVICES, | | | | | | CORE | | + +---------+ + + + | NRBC% | 0.0 | 0.0 - 0.3 % | [facility] | | | | | | LABORATORY | | | | | | SERVICES, | | | | | | CORE | | + +---------+ + + + | NRBC# | 0.00 [...] | [facility] | [address] | [place] [address] | | | HORACIO, [place] | [address] | | | + + + + + MAGNESIUM, PLASMA (07/08/2018 1:46 PM PST) + +-------+ + + + | Component | Value | Ref Range | Performed | Pathologist | | | | | At | Signature | + +-------+ + + + | MAGNESIUM,P | 1.8 | 1.6 - 2.6 mg/dL | [facility] | | | LASMA | | | LABORATORY | | | [...] | + + + + + | [facility] | [address] | [place] [address] | | | SERVICES, CORE | [address] | | | + + + + + RENAL FUNCTION SET (NA,K,CL,CO2,BUN,CREAT,GLUC,CA,PHOS,ALB ) (07/08/2018 1:46 PM PST) + + + + + + | Component | Value | Ref Range | Performed | Pathologist | | | | | At | Signature | + + + + + + | GLUCOSE, | 131 (H) | 70 - 99 mg/dL | [facility] | | | PLASMA | | | LABORATORY | | | (LAB) | | | SERVICES, | | | | | | CORE | | + + + + + + | BUN, PLASMA | 10 | 6 - 20 mg/dL | [facility] | | | (LAB) | | | LABORATORY | | | | | | SERVICES, | | | | | | CORE | | + + + + + + | CREATININE | 0.55 (L) | 0.60 - 1.10 | [facility] | | | PLASMA | | mg/dL | LABORATORY | | | (LAB) | | | SERVICES, | | | | | | CORE | | + + + + + + | EGFR | >60 | >60 mL/min | [facility] | | | - | | | LABORATORY | | | ANDORRAN | | | SERVICES, | | | | | | CORE | | + + + + + + | EGFR NON | >60 | >60 mL/min | [facility] | | | -LEXIE | | | LABORATORY | | | RICAN | | | SERVICES, | | | | | | CORE | | + + + + + + | SODIUM, | 139 | 136 - 145 | [facility] | | | PLASMA | | mmol/L | LABORATORY | | | (LAB) | | | SERVICES, | | | | | | CORE | | + + + + + + | POTASSIUM, | 4.3 | 3.4 - 5.0 | [facility] | | | PLASMA | | mmol/L | LABORATORY | | | (LAB) | | | SERVICES, | | | | | | CORE | | + + + + + + | CHLORIDE, | 106 | 97 - 108 mmol/L | [facility] | | | PLASMA | | | LABORATORY | | | (LAB) | | | SERVICES, | | | | | | CORE | | + + + + + + | TOTAL CO2, | 27 | 21 - 32 mmol/L | [facility] | | | PLASMA | | | LABORATORY | | | (LAB) | | | SERVICES, | | | | | | CORE | | + + + + + + | CALCIUM, | 9.3 | 8.6 - 10.2 | [facility] | | | PLASMA | | mg/dL | LABORATORY | | | (LAB) | | | SERVICES, | | | | | | CORE | | + + + + + + | CALCIUM(ALB | 9.9 | 8.6 - 10.2 | [facility] | | | CORRECTED) | | mg/dL | LABORATORY | | | | | | SERVICES, | | | | | | CORE | | + + + + + + | ALBUMIN, | 3.2 (L) | 3.5 - 4.7 g/dL | [facility] | | | PLASMA | | | LABORATORY | | | (LAB) | | | SERVICES, | | | | | | CORE | | + + + + + + | PHOSPHORUS, | 3.8 | 2.4 - 4.7 mg/dL | [facility] | | | PLASMA | | | LABORATORY | | | (LAB) | | | SERVICES, | | | | | | CORE | | + + + + + + | POTASSIUM | No Hemo | | [facility] | | | CMNT | | | LABORATORY | | | | | | SERVICES, | | | | | | CORE | | + + + + + + | ANION GAP | 6 | 4 - 11 mmol/L | [facility] | | | | | | LABORATORY | | | | | | SERVICES, | | | | | | CORE | | + + + + + + | ANION | 8 | 4 - 11 mmol/L | [facility] [...] | | Kidney Failure Estimated GFR greater than 60 mL/min/1.73 sq m is of | | | limited clinical value. The MDRD equation is not valid in the | | | following situations: - Patients under 18 years of age - Severe | | | malnutrition or obesity - Vegetarian diet - Rapidly changing kidney | | | function - Amputees, paraplegics, or other muscle-wasting diseses | | + + + + + + + + | Performing | Address | City/State/Zipcode | Phone Number | | Organization | | | | + + + + + | [facility] | [address] | [place] [address] | | | SERVICES, CORE | [address] | | | + + + + + CAPILLARY BLOOD GLUCOSE (NO CHG), POC (07/08/2018 1:10 PM PST) + +---------+ + + + | Component | Value | Ref Range | Performed | Pathologist | | | | | At | Signature | + +---------+ + + + | BLOOD | 127 (H) | 60 - 99 mg/dL | [...] | [facility] | [address] | [place], [place] | | | ZELALEM HERRERA [facility] | [address] | [phone] | | | TESTS | | | | + + + + + PROCEDURE NOTE (07/08/2018 1:03 PM PST) + + + | Narrative | Performed At | + + + | Yokasta Webb MD 07/08/2018 1:06 PM Brief Op Note | | | Procedure Date: 07/08/2018 Author: YOKASTA WEBB MD Attending | | | Physician: Rajinder Luis MD Assistants: Yokasta Webb MD Prior to | | | the beginning of the procedure, the team paused to verify the | | | patient | | | | | | s identity, the procedure to be performed (in accordance with the | | | consent,) and the correct side/site. The patient was positioned | | | appropriately. All relevant images and results were properly labeled | | | and displayed. We addressed antibiotic prophylaxis and fluids for | | | irrigation as applicable to this patient. Any safety precautions | | | were addressed. Preoperative Diagnosis: recurrent thoacic | | | intramedullary spinal cord tumor, increased RLE weakness | | | Postoperative Diagnosis: same as above Procedure Performed: 1) | | | redo T8 laminectomy, T9 laminectomy for resection of intramedullary | | | tumor 2) use of operative microscope 3) use of fluoroscopy and | | | interpretation 4) neuromonitoring with SSEP and MEP 5) ultrasound | | | with interpretation Anesthesia: General Estimated Blood Loss: | | | 50ml Fluids: see anesthesia Specimens: permanent only | | | Implants: none Complications: none Drains: none | | | Disposition: PACU to NSICU Findings: large soft tumor which was | | | debulked.Clear plane seen on the medial aspect of tumor, but started | | | blending into normal appearing spinal cord at more ventral area. | | | There was 50% loss of LLE MEP during resection. Dura closed with | | | gore thaddeus, tack up 4-0 neurolon sutures to muscle. Closed in layers. | | | Skin closed with 2-0 interrupted vertical mattress sutures Plan: | | | - FLAT, timing TBD - dex 4q6, plan 3 day taper - MRI T spine | | | without contrast BFFE only post op T5-9 - diet regular - MAP > 80 | | | Yokasta Webb PGY5 Pager [phone] YOKASTA WEBB MD | | + + + X-RAY SPINE THORACIC 2 VIEWS (07/08/2018 12:54 PM PST) + + | Specimen | + + | | + + + + + | Narrative | Performed At | + + + | - At the time of the study, no professional interpretation was | | | requested. - | | + + + X-RAY FLUOROSCOPY IN OR > 1 HOUR (07/08/2018 12:51 PM PST) + + | Specimen | + + | | + + + + + | Narrative | Performed At | + + + | - At the time of the study, no professional interpretation was | | | requested. 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 She | | | | | | undergoes a redo T8-T9 | | | | | | laminectomy for | | | | | | resection of recurrent | | | | | | tumor, in the setting of | | | | | | increased right lower | | | | | | extremity weakness. | | | | + + + + + + | Final | A. "Other", thoracic | | [facility] | Electronically | | Pathologic | tumor, biopsy: | | DEPARTMENT | signed by | | Diagnosis | Residual/recurrent low | | OF | Luis Castañeda, | | | grade glioneuronal | | PATHOLOGY | ,PhD on | | | tumor. See comment.B. | | | 07/11/2018 at | | | "Other", thoracic tumor | | | 9:50 AM | | | (tissue trap), | | | | | | resection: | | | | | | Residual/recurrent low | | | | | | grade glioneuronal | | | | | | tumor.Comment: Sections | | | | | | show a monomorphous | | | | | | proliferation of cells | | | | | | with oval nuclei and | | | | | | finely fibrillar | | | | | | eosinophilic cytoplasm. | | | | | | Focal verónica formation | | | | | | is seen. No high grade | | | | | | features are identified. | | | | | | Immunohistochemistry | | | | | | for Ki67 performed and | | | | | | evaluated on block B1 | | | | | | shows a labeling index | | | | | | of approximately 2%. The | | | | | | morphology is is | | | | | | similar to the patient's | | | | | | prior specimens | | | | | | (selected slides | | | | | | reviewed from | | | | | | [id number], | | | | | | [id number], | | | | | | [id number], and | | | | | | [id number]). According | | | | | | to [facility], molecular | | | | | | testing of a prior | | | | | | specimen was negative | | | | | | for BRAF mutation and | | | | | | BRAF rearrangement. | | | | | | Sequencing studies were | | | | | | negative for IDH1 and | | | | | | IDH2 mutations. Case | | | | | | seen by:Luis Castañeda, | | | | | | , PhD | | | | | | | | | | | | | | | | | | NeuropathologistPatholog | | | | | | y, [facility] & | | | | | | [facility] | | | | | | electronic signature | | | | | | indicates that I have | | | | | | personally reviewed all | | | | | | diagnostic slides, the | | | | | | gross and/or microscopic | | | | | | portion of this report | | | | | | and formulated the final | | | | | | diagnosis. | | | | + + + + + + | Gross | Received are 2 specimens | | [facility] | | | Description | (A in formalin, B | | DEPARTMENT | | | | fresh) labeled with the | | OF | | | | patient's name (initials | | PATHOLOGY | | | | RTE) and medical record | | | | | | number [id number].A. | | | | | | Other, Thoracic Tumor: | | | | | | Received labeled | | | | | | "thoracic tumor-1" | | | | | | adherent to a Telfa pad | | | | | | are 7 moctezuma-pink fragments | | | | | | of soft tissue ranging | | | | | | from 0.1-0.3 cm, and | | | | | | aggregating to 0.7 x 0.4 | | | | | | x 0.2 centimeters. The | | | | | | specimen is wrapped and | | | | | | entirely submitted.A1, | | | | | | wrappedB. Other, | | | | | | Thoracic Tumor (Tissue | | | | | | Trap): Received labeled | | | | | | "thoracic tumor (tissue | | | | | | trap)-2" in a mesh | | | | | | suction device are | | | | | | multiple dark red | | | | | | fragments of soft tissue | | | | | | 3 x 2 x 0.2 cm in | | | | | | aggregate. The specimen | | | | | | is filtered and | | | | | | entirely submitted.B1, | | | | | | filtered(AMJ) | | | | + + + + + + | Ancillary | Analyte specific | | [facility] | | | Information | reagents are used in | | DEPARTMENT | | | | many laboratory tests | | OF | | | | necessary for standard | | PATHOLOGY | | | | medical care. This test | | | | | | was developed and its | | | | | | performance | | | | | | characteristics | | | | | | determined by [facility] | | | | | | laboratories. It has | | | | | | not been cleared or | | | | | | approved by the [place] Food | | | | | | and Drug Administration | | | | | | (FDA). FDA does not | | | | | | require this test to go | | | | | | through premarket FDA | | | | | | review. This test is | | | | | | used for clinical | | | | | | purposes. It should not | | | | | | be regarded as | | | | | | investigational or for | | | | | | research. This | | | | | | laboratory is certified | | | | | | under the Clinical | | | | | | Laboratory Improvement | | | | | | Amendments (CLIA) as | | | | | | qualified to perform | | | | | | high complexity clinical | | | | | | laboratory testing. | | | | + + + + + + + + | Specimen | + + | Tissue - Other | + + | Tissue - Other | + + + + + + + | Performing | Address | City/State/Zipcode | Phone Number | | Organization | | | | + + + + + | [facility] | [address] | [place] [address] | | | PATHOLOGY | [address] | | | + + + + + CBC (HEMOGRAM) ONLY (07/08/2018 4:13 AM PST) + +---------+ + + + | Component | Value | Ref Range | Performed | Pathologist | | | | | At | Signature | + +---------+ + + + | WHITE CELL | 9.37 | 3.50 - 10.80 | [facility] | | | COUNT | | K/cu mm | LABORATORY | | | | | | SERVICES, | | | | | | CORE | | + +---------+ + + + | RED CELL | 4.85 | 4.00 - 5.20 | [facility] | | | COUNT | | M/cu mm | LABORATORY | | | | | | SERVICES, | | | | | | CORE | | + +---------+ + + + | HEMOGLOBIN | 13.0 | 12.0 - 16.0 | [facility] | | | | | g/dL | LABORATORY | | | | | | SERVICES, | | | | | | CORE | | + +---------+ + + + | HEMATOCRIT | 40.1 | 36.0 - 46.0 % | [facility] | | | | | | LABORATORY | | | | | | SERVICES, | | | | | | CORE | | + +---------+ + + + | MCV | 82.7 | 80.0 - 100.0 fL | [facility] | | | | | | LABORATORY | | | | | | SERVICES, | | | | | | CORE | | + +---------+ + + + | MCHC | 32.4 | 32.0 - 36.0 | [facility] | | | | | g/dL | LABORATORY | | | | | | SERVICES, | | | | | | CORE | | + +---------+ + + + | RDW SD | 38.6 | 35.1 - 46.3 fL | [facility] | | | | | | LABORATORY | | | | | | SERVICES, | | | | | | CORE | | + +---------+ + + + | PLATELET | 315 | 150 - 400 K/cu | [facility] | | | COUNT | | mm | LABORATORY | | | | | | SERVICES, | | | | | | CORE | | + +---------+ + + + | MPV | 9.6 (L) | 9.7 - 12.3 fL | [facility] | | | | | | LABORATORY | | | | | | SERVICES, | | | | | | CORE | | + +---------+ + + + | NRBC% | 0.0 | 0.0 - 0.3 % | [facility] | | | | | | LABORATORY | | | | | | SERVICES, | | | | | | CORE | | + +---------+ + + + | NRBC# | 0.00 [...] | [facility] | [address] | [place] [address] | | | SERVICES, CORE | [address] | | | + + + + + COAGULOPATHY PANEL (INR,APTT,FIBRINOGEN) (07/08/2018 4:13 AM PST) + +---------+ + + + | Component | Value | Ref Range | Performed | Pathologist | | | | | At | Signature | + +---------+ + + + | INR | 1.06 | 0.90 - 1.20 INR | [facility] | | | | | | LABORATORY | | | | | | SERVICES, | | | | | | CORE | | + +---------+ + + + | APTT | 35.0 | 26.0 - 36.0 | [facility] | | | | | seconds | LABORATORY | | | | | | SERVICES, | | | | | | CORE | | + +---------+ + + + | FIBRINOGEN | 605 (H) | 150 - 450 mg/dL | [facility] | | | LEVEL | | | LABORATORY | | | [...] with mech. valves (2.5 - 3.5) INR APTT values for | SERVICES, CORE | | monitoring heparin therapy may be affected by specimens processed >1 | | | hour after collection. APTT Therapeutic Range: | | | (75 - 120) sec Heparin levels of 0.35 - 0.7 U/mL | | + + + + + + + + | Performing | Address | City/State/Zipcode | Phone Number | | Organization | | | | + + + + + | [facility] | [address] | [place] [address] | | | SERVICES, CORE | [address] | | | + + + + + BASIC METABOLIC SET (NA, K, CL, TCO2, BUN, CR, GLU, CA) (07/08/2018 4:13 AM PST) + +---------+ + + + | Component | Value | Ref Range | Performed | Pathologist | | | | | At | Signature | + +---------+ + + + | GLUCOSE, | 110 (H) | 70 - 99 mg/dL | [facility] | | | PLASMA | | | LABORATORY | | | (LAB) | | | SERVICES, | | | | | | CORE | | + +---------+ + + + | BUN, PLASMA | 12 | 6 - 20 mg/dL | [facility] [...] | | | LABORATORY | | | ANDORRAN | | | SERVICES, | | | | | | CORE | | + +---------+ + + + | EGFR NON | >60 | >60 mL/min | [facility] | | | -LEXIE | | | LABORATORY | | | RICAN | | | SERVICES, | | | | | | CORE | | + +---------+ + + + | SODIUM, | 138 | 136 - 145 | [facility] | | | PLASMA | | mmol/L | LABORATORY | | | (LAB) | | | SERVICES, | | | | | | CORE | | + +---------+ + + + | POTASSIUM, | 4.2 | 3.4 - 5.0 | [facility] | | | PLASMA | | mmol/L | LABORATORY | | | (LAB) | | | SERVICES, | | | | | | CORE | | + +---------+ + + + | CHLORIDE, | 103 | 97 - 108 mmol/L | [facility] | | | PLASMA | | | LABORATORY | | | (LAB) | | | SERVICES, | | | | | | CORE | | + +---------+ + + + | TOTAL CO2, | 28 | 21 - 32 mmol/L | [facility] | | | PLASMA | | | LABORATORY | | | (LAB) | | | SERVICES, | | | | | | CORE | | + +---------+ + + + | CALCIUM, | 9.6 | 8.6 - 10.2 | [facility] | | | PLASMA | | mg/dL | LABORATORY | | | (LAB) | | | SERVICES, | | | | | | CORE | | + +---------+ + + + | ANION GAP | 7 | 4 - 11 mmol/L | [facility] | | | | [...] | | Kidney Failure Estimated GFR greater than 60 mL/min/1.73 sq m is of | | | limited clinical value. The MDRD equation is not valid in the | | | following situations: - Patients under 18 years of age - Severe | | | malnutrition or obesity - Vegetarian diet - Rapidly changing kidney | | | function - Amputees, paraplegics, or other muscle-wasting diseses | | + + + + + + + + | Performing | Address | City/State/Zipcode | Phone Number | | Organization | | | | + + + + + | [facility] | [address] | [place] [address] | | | SERVICES, NINO | [address] | | | + + + + + INTRAOPERATIVE NEURO MONITORING (07/08/2018) + + + | Narrative | Performed At | + + + | Patient Name: Qiana Worrell Date of : 1990 | | | Date of Test: 07/08/2018 Place | | | of Service: IP Intra Op [id number] [id number] - [id number] INTRAOPERATIVE | | | NEURO MONITORING IOM: 9, Surgical studio History: This is a | | | 27 y.o. 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 Patient was admitted for THORACIC | | | LAMINECTOMIES FOR TUMOR RESECTION . Conditions of Recording: | | | Repetitive electrical stimulation of the posterior tibial nerve was | | | performed at the ankle, with recordings over the popliteal fossa, | | | cervical spine and scalp. Repetitive electrical stimulation of | | | the ulnar nerve was performed at the wrist, with recordings over the | | | brachial plexus, the cervical spine and the scalp. Train of four | | | response were repetitively done to compare the ratio of the fourth to | | | the first twitch when stimulated at a rate of 2 Hz to assess the | | | degree of neuromuscular blockade causing paralysis or muscle weakness | | | which would also result in decreased EMG activation from stimulation. | | | To obtain transcranial electrical motor evoked potentials, trains | | | of 6 pulses with an individual pulse duration of 0.5 ms and an | | | interstimulus interval of 4 ms were delivered over the bilateral | | | central regions of the scalp. Description of recording: | | | Preoperative waveforms were obtained after general anesthesia for | | | baseline. During surgery, SSEPs were repetitively performed. | | | Following left posterior tibial nerve stimulation, there was a | | | reproducible subcortical potential, N29, at latencies of approximately | | | 32.9 msec. A reproducible cortical waveform, N37, was present at | | | latencies of about 38.5 msec. Responses from the rigth were not | | | present at baseline. Following ulnar nerve stimulation, there was | | | a cervical potential, N13, at latencies of approximately 13.5 msec. | | | The cortical waveform, N20, was present at latencies of about 20 | | | msec. Following transcranial stimulation, there were reproducible | | | EMG responses from the upper and lower extremity muscles bilaterally | | | but the right side was significantly lower amplitude and was not | | | closely monitored since the presence was an unexpected finding. The | | | left MEPs and right upper were unchanged throughout. | | | Intraoperative interpretation was performed using real-time display of | | | intraoperative neurophysiologic recordings for 2 hours 9 minutes | | | (10:02-12:11). Dr. Pizano was continuously available for communication | | | with the recording technologist and the operative team during this | | | time. Impression: Intraoperative neuromonitoring with no | | | significant changes in baseline waveforms. Right lower extremity | | | responses were absent or signficantly attenuated at baseline. | | | Electronically signed on 08/24/2018 11:19 AM by Da Pizano, | | | Matt, Ph.D. 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 | RADIOLOGY VOICE | | TECHNIQUE: CT thoracic spine without contrast, with 2D multiplanar | RECOGNITION 2 | | reconstructions. FINDINGS: There is evidence of prior posterior | | | decompression at T6, T7, and T8. Mild accentuation of the mid thoracic | | | kyphosis is similar in appearance to the prior examination. The | | | patient's known spinal cord tumor is poorly evaluated on this | | | noncontrast CT study, but is better seen on the MRI performed today. | | | The remaining thoracic vertebral bodies are normally aligned. Disc | | | space heights are maintained. There is no osseous foraminal | | | impingement. The visualized prevertebral soft tissues appear | | | unremarkable. IMPRESSION: Postsurgical changes associated with | | | prior posterior decompression of the mid thoracic spine, similar to | | | prior studies. This study was acquired for presurgical planning. | | | I have personally reviewed the images and, if necessary, edited the | | | report. I agree with the report as now presented. Final | | | signature: Jeferson Castro MD 07/07/2018 3:40 PM Preliminary: | | | Jeferson Castro MD Dictation initiated: Jeferson Castro MD | | | 07/07/2018 3:38 PM | | + + + + + | Procedure Note | + + | Service Account, Radiant Res In Interface - 07/07/2018 4:14 PM PST EXAM: CT | | THORACIC SPINE WITHOUT CONTRAST HISTORY: Presurgical evaluation, thoracic spine | | COMPARISON: November 26, 2017. TECHNIQUE: CT thoracic spine without contrast, with 2D | | multiplanar reconstructions. FINDINGS:There is evidence of prior posterior decompression | | at T6, T7, and T8. Mild accentuation of the mid thoracic kyphosis is similar in | | appearance to the prior examination. The patient's known spinal cord tumor is poorly | | evaluated on this noncontrast CT study, but is better seen on the MRI performed today. | | The remaining thoracic vertebral bodies are normally aligned. Disc space heights are | | maintained. There is no osseous foraminal impingement. The visualized prevertebral soft | | tissues appear unremarkable. IMPRESSION: Postsurgical changes associated with prior | | posterior decompression of the mid thoracic spine, similar to prior studies. This study | | was acquired for presurgical planning. I have personally reviewed the images and, if | | necessary, edited the report. I agree with the report as now presented. Final | | signature: Jeferson Castro MD 07/07/2018 3:40 PM Preliminary: Jeferson Castro MD | | Dictation initiated: Jeferson Castro MD 07/07/2018 3:38 PM | |This study was acquired for presurgical planning. | | | |I have personally reviewed the images and, if necessary, edited the report. I agree with th e report as now presented. | | | |Final signature: Jeferson Castro MD 07/07/2018 3:40 PM | |Preliminary: Jeferson Castro MD | |Dictation initiated: Jeferson Castro MD 07/07/2018 3:38 PM | + + + +---------+ + + | Performing | Address | City/State/Zipcode | Phone Number | | Organization | | | | + +---------+ + + | [facility] | | | | | VOICE RECOGNITION 2 | | | | + +---------+ + + MRI SPINE THORACIC WO CONTRAST (07/07/2018 3:00 PM PST) + + | Specimen | + + | | + + + + + | Narrative | Performed At | + + + | MRI THORACIC AND LUMBAR SPINE WITH AND WITHOUT CONTRAST HISTORY: | [facility] | | eval tumor with new weakness COMPARISON: November 26, 2017. | RADIOLOGY VOICE | | TECHNIQUE: Multiplanar multi-sequence MRI of the thoracic and lumbar | RECOGNITION 2 | | spine without and with gadolinium based intravenous contrast: | | | GADOTERATE MEGLUMINE 0.5 MMOL/ML (376.9 MG/ML) INTRAVENOUS SOLUTION 13 | | | mL (accession [id number]), GADOTERATE MEGLUMINE 0.5 MMOL/ML (376.9 | | | MG/ML) INTRAVENOUS SOLUTION 13 mL (accession [id number]) FINDINGS: | | | Thoracic spine: There is abnormal T2 hyperintensity in the thoracic | | | cord extending from the T5 level through the T10 level. The degree of | | | cord expansion appears to have perhaps minimally increased in | | | comparison to prior study of this year, with the inferior extent of | | | signal abnormality now reaching the T10-11 disc space and complete | | | effacement of the CSF about the mid thoracic cord. Small cystic spaces | | | within the mass at T8 and T9 appear slightly larger than in | | | comparison with the prior study as well, changes best appreciated for | | | example on the sagittal T1-weighted imaging, for example image 80 of | | | series 4 in comparison to image 7 of series 6 on the prior | | | examination. Postgadolinium imaging continues to demonstrate little or | | | no enhancement associated with the mass. Again there are postsurgical | | | changes associated with prior posterior decompression from T6 through | | | T8. No abnormal marrow signal is present in the thoracic spine. The | | | visualized prevertebral tissues are unremarkable. Lumbar spine: | | | The conus terminates normally at L1-2. Signal in the distal spinal | | | cord is normal. Alignment of the lumbar vertebral bodies is anatomic. | | | No abnormal enhancement is present in the distal thecal sac or | | | elsewhere within the lumbar spine. There is no central canal stenosis | | | or foraminal compromise. IMPRESSION: 1. Perhaps trace interval | | | enlargement of the thoracic cord mass as described above. These | | | changes are subtle, and includes slight further extent of the inferior | | | T2 signal abnormality as well as subtle enlargement of the areas of | | | cystic change within the central aspect of the mass. 2. Normal | | | examination of the lumbar spine. I have personally reviewed the | | | images and, if necessary, edited the report. I agree with the report | | | as now presented. Final signature: Jeferson Castro MD | | | 07/07/2018 3:48 PM Preliminary: Jeferson Castro MD | | | Dictation initiated: Jeferson Castro MD 07/07/2018 3:40 PM | | + + + + + | Procedure Note | + + | Service Account, Radiant Res In Interface - 07/07/2018 4:14 PM PST MRI THORACIC AND | | LUMBAR SPINE WITH AND WITHOUT CONTRAST HISTORY: eval tumor with new weakness | | COMPARISON: November 26, 2017. TECHNIQUE: Multiplanar multi-sequence MRI of the thoracic and | | lumbar spine without and with gadolinium based intravenous contrast: GADOTERATE | | MEGLUMINE 0.5 MMOL/ML (376.9 MG/ML) INTRAVENOUS SOLUTION 13 mL (accession [id number]), | | GADOTERATE MEGLUMINE 0.5 MMOL/ML (376.9 MG/ML) INTRAVENOUS SOLUTION 13 mL (accession | | [id number]) FINDINGS:Thoracic spine: There is abnormal T2 hyperintensity in the thoracic | | cord extending from the T5 level through the T10 level. The degree of cord expansion | | appears to have perhaps minimally increased in comparison to prior study of this year, | | with the inferior extent of signal abnormality now reaching the T10-11 disc space and | | complete effacement of the CSF about the mid thoracic cord. Small cystic spaces within | | the mass at T8 and T9 appear slightly larger than in comparison with the prior study as | | well, changes best appreciated for example on the sagittal T1-weighted imaging, for | | example image 80 of series 4 in comparison to image 7 of series 6 on the prior | | examination. Postgadolinium imaging continues to demonstrate little or no enhancement | | associated with the mass. Again there are postsurgical changes associated with prior | | posterior decompression from T6 through T8. No abnormal marrow signal is present in the | | thoracic spine. The visualized prevertebral tissues are unremarkable. Lumbar spine: The | | conus terminates normally at L1-2. Signal in the distal spinal cord is normal. Alignment | | of the lumbar vertebral bodies is anatomic. No abnormal enhancement is present in the | | distal thecal sac or elsewhere within the lumbar spine. There is no central canal | | stenosis or foraminal compromise. IMPRESSION:1. Perhaps trace interval enlargement of | | the thoracic cord mass as described above. These changes are subtle, and includes slight | | further extent of the inferior T2 signal abnormality as well as subtle enlargement of | | the areas of cystic change within the central aspect of the mass.2. Normal examination | | of the lumbar spine. I have personally reviewed the images and, if necessary, edited the | | report. I agree with the report as now presented. Final signature: Jeferson Castro | | 07/07/2018 3:48 PM Preliminary: Jeferson Castro MD Dictation initiated: Jeferson Castro MD 07/07/2018 3:40 PM | |Dictation initiated: Jeferson Castro MD 07/07/2018 3:40 PM | + + + +---------+ + + | Performing | Address | City/State/Zipcode | Phone Number | | Organization | | | | + +---------+ + + | [facility] | | | | | VOICE RECOGNITION 2 | | | | + +---------+ + + MRI SPINE THOR / LUMB WWO CONTRAST (07/07/2018 12:42 AM PST) + + | Specimen | + + | | + + + + + | Narrative | Performed At | + + + | MRI THORACIC AND LUMBAR SPINE WITH AND WITHOUT CONTRAST HISTORY: | [facility] | | eval tumor with new weakness COMPARISON: November 26, 2017. | RADIOLOGY VOICE | | TECHNIQUE: Multiplanar multi-sequence MRI of the thoracic and lumbar | RECOGNITION 2 | | spine without and with gadolinium based intravenous contrast: | | | GADOTERATE MEGLUMINE 0.5 MMOL/ML (376.9 MG/ML) INTRAVENOUS SOLUTION 13 | | | mL (accession [id number]), GADOTERATE MEGLUMINE 0.5 MMOL/ML (376.9 | | | MG/ML) INTRAVENOUS SOLUTION 13 mL (accession [id number]) FINDINGS: | | | Thoracic spine: There is abnormal T2 hyperintensity in the thoracic | | | cord extending from the T5 level through the T10 level. The degree of | | | cord expansion appears to have perhaps minimally increased in | | | comparison to prior study of this year, with the inferior extent of | | | signal abnormality now reaching the T10-11 disc space and complete | | | effacement of the CSF about the mid thoracic cord. Small cystic spaces | | | within the mass at T8 and T9 appear slightly larger than in | | | comparison with the prior study as well, changes best appreciated for | | | example on the sagittal T1-weighted imaging, for example image 80 of | | | series 4 in comparison to image 7 of series 6 on the prior | | | examination. Postgadolinium imaging continues to demonstrate little or | | | no enhancement associated with the mass. Again there are postsurgical | | | changes associated with prior posterior decompression from T6 through | | | T8. No abnormal marrow signal is present in the thoracic spine. The | | | visualized prevertebral tissues are unremarkable. Lumbar spine: | | | The conus terminates normally at L1-2. Signal in the distal spinal | | | cord is normal. Alignment of the lumbar vertebral bodies is anatomic. | | | No abnormal enhancement is present in the distal thecal sac or | | | elsewhere within the lumbar spine. There is no central canal stenosis | | | or foraminal compromise. IMPRESSION: 1. Perhaps trace interval | | | enlargement of the thoracic cord mass as described above. These | | | changes are subtle, and includes slight further extent of the inferior | | | T2 signal abnormality as well as subtle enlargement of the areas of | | | cystic change within the central aspect of the mass. 2. Normal | | | examination of the lumbar spine. I have personally reviewed the | | | images and, if necessary, edited the report. I agree with the report | | | as now presented. Final signature: Jeferson Castro MD | | | 07/07/2018 3:48 PM Preliminary: Jeferson Castro MD | | | Dictation initiated: Jeferson Castro MD 07/07/2018 3:40 PM | | + + + + + | Procedure Note | + + | Service Account, Radiant Res In Interface - 07/07/2018 4:14 PM PST MRI THORACIC AND | | LUMBAR SPINE WITH AND WITHOUT CONTRAST HISTORY: eval tumor with new weakness | | COMPARISON: November 26, 2017. TECHNIQUE: Multiplanar multi-sequence MRI of the thoracic and | | lumbar spine without and with gadolinium based intravenous contrast: GADOTERATE | | MEGLUMINE 0.5 MMOL/ML (376.9 MG/ML) INTRAVENOUS SOLUTION 13 mL (accession [id number]), | | GADOTERATE MEGLUMINE 0.5 MMOL/ML (376.9 MG/ML) INTRAVENOUS SOLUTION 13 mL (accession | | [id number]) FINDINGS:Thoracic spine: There is abnormal T2 hyperintensity in the thoracic | | cord extending from the T5 level through the T10 level. The degree of cord expansion | | appears to have perhaps minimally increased in comparison to prior study of this year, | | with the inferior extent of signal abnormality now reaching the T10-11 disc space and | | complete effacement of the CSF about the mid thoracic cord. Small cystic spaces within | | the mass at T8 and T9 appear slightly larger than in comparison with the prior study as | | well, changes best appreciated for example on the sagittal T1-weighted imaging, for | | example image 80 of series 4 in comparison to image 7 of series 6 on the prior | | examination. Postgadolinium imaging continues to demonstrate little or no enhancement | | associated with the mass. Again there are postsurgical changes associated with prior | | posterior decompression from T6 through T8. No abnormal marrow signal is present in the | | thoracic spine. The visualized prevertebral tissues are unremarkable. Lumbar spine: The | | conus terminates normally at L1-2. Signal in the distal spinal cord is normal. Alignment | | of the lumbar vertebral bodies is anatomic. No abnormal enhancement is present in the | | distal thecal sac or elsewhere within the lumbar spine. There is no central canal | | stenosis or foraminal compromise. IMPRESSION:1. Perhaps trace interval enlargement of | | the thoracic cord mass as described above. These changes are subtle, and includes slight | | further extent of the inferior T2 signal abnormality as well as subtle enlargement of | | the areas of cystic change within the central aspect of the mass.2. Normal examination | | of the lumbar spine. I have personally reviewed the images and, if necessary, edited the | | report. I agree with the report as now presented. Final signature: Jeferson Castro | | 07/07/2018 3:48 PM Preliminary: Jeferson Castro MD Dictation initiated: Jeferson Castro MD 07/07/2018 3:40 PM | |Dictation initiated: Jeferson Castro MD 07/07/2018 3:40 PM | + + + +---------+ + + | Performing | Address | City/State/Zipcode | Phone Number | | Organization | | | | + +---------+ + + | [facility] | | | | | VOICE RECOGNITION 2 | | | | + +---------+ + + ANTIBODY SCREEN (07/06/2018 2:26 PM PST) + + + + + [...] | + + + + + | [facility] | [address] | [place] [address] | | | SERVICES, | [address] | | | | TRANSFUSION MEDICINE | | | | + + + + + ABO & RH TYPE (07/06/2018 2:26 PM PST) + + + + + [...] | [facility] | [address] | [place] [address] | | | SERVICES, | [address] | | | | TRANSFUSION MEDICINE | | | | + + + + + CBC (HEMOGRAM) ONLY (07/06/2018 2:26 PM PST) + + + + + + | Component | Value | Ref Range | Performed | Pathologist | | | | | At | Signature | + + + + + + | WHITE CELL | 8.20 | 3.50 - 10.80 | [facility] | | | COUNT | | K/cu mm | LABORATORY | | | | | | SERVICES, | | | | | | CORE | | + + + + + + | RED CELL | 4.30 | 4.00 - 5.20 | [facility] | | | COUNT | | M/cu mm | LABORATORY | | | | | | SERVICES, | | | | | | CORE | | + + + + + + | HEMOGLOBIN | 11.6 (L) | 12.0 - 16.0 | [facility] | | | | | g/dL | LABORATORY | | | | | | SERVICES, | | | | | | CORE | | + + + + + + | HEMATOCRIT | 36.3 | 36.0 - 46.0 % | [facility] | | | | | | LABORATORY | | | | | | SERVICES, | | | | | | CORE | | + + + + + + | MCV | 84.4 | 80.0 - 100.0 fL | [facility] | | | | | | LABORATORY | | | | | | SERVICES, | | | | | | CORE | | + + + + + + | MCHC | 32.0 | 32.0 - 36.0 | [facility] | | | | | g/dL | LABORATORY | | | | | | SERVICES, | | | | | | CORE | | + + + + + + | RDW SD | 40.2 | 35.1 - 46.3 fL | [facility] | | | | | | LABORATORY | | | | | | SERVICES, | | | | | | CORE | | + + + + + + | PLATELET | 251 | 150 - 400 K/cu | [facility] | | | COUNT | | mm | LABORATORY | | | | | | SERVICES, | | | | | | CORE | | + + + + + + | MPV | 9.9 | 9.7 - 12.3 fL | [facility] [...] | [facility] | [address] | [place] [address] | | | SERVICES, CORE | [address] | | | + + + + + COAGULOPATHY PANEL (INR,APTT,FIBRINOGEN) (07/06/2018 2:26 PM PST) + + + + + + | Component | Value | Ref Range | Performed | Pathologist | | | | | At | Signature | + + + + + + | INR | 1.11 | 0.90 - 1.20 INR | [facility] | | | | | | LABORATORY | | | | | | SERVICES, | | | | | | CORE | | + + + + + + | APTT | 37.7 (H) | 26.0 - 36.0 | [facility] | | | | | seconds | LABORATORY | | | | | | SERVICES, | | | | | | CORE | | + + + + + + | FIBRINOGEN | 503 (H) | 150 - 450 mg/dL | [facility] | | | LEVEL | | | LABORATORY | | | [...] with mech. valves (2.5 - 3.5) INR APTT values for | SERVICES, CORE | | monitoring heparin therapy may be affected by specimens processed >1 | | | hour after collection. APTT Therapeutic Range: | | | (75 - 120) sec Heparin levels of 0.35 - 0.7 U/mL | | + + + + + + + + | Performing | Address | City/State/Zipcode | Phone Number | | Organization | | | | + + + + + | [facility] | [address] | [place] [address] | | | SERVICES, CORE | [address] | | | + + + + + BASIC METABOLIC SET (NA, K, CL, TCO2, BUN, CR, GLU, CA) (07/06/2018 2:26 PM PST) + +---------+ + + + | Component | Value | Ref Range | Performed | Pathologist | | | | | At | Signature | + +---------+ + + + | GLUCOSE, | 80 | 70 - 99 mg/dL | [facility] | | | PLASMA | | | LABORATORY | | | (LAB) | | | SERVICES, | | | | | | CORE | | + +---------+ + + + | BUN, PLASMA | 10 | 6 - 20 mg/dL | [facility] | | | (LAB) | | | LABORATORY | | | | | | SERVICES, | | | | | | CORE | | + +---------+ + + + | CREATININE | 0.76 | 0.60 - 1.10 | [facility] | | | PLASMA | | mg/dL | LABORATORY | | | (LAB) | | | SERVICES, | | | | | | CORE | | + +---------+ + + + | EGFR | >60 | >60 mL/min | [facility] | | | - | | | LABORATORY | | | [facility] | | | SERVICES, | | | | | | CORE | | + +---------+ + + + | EGFR NON | >60 | >60 mL/min | [facility] | | | -LEXIE | | | LABORATORY | | | RICAN | | | SERVICES, | | | | | | CORE | | + +---------+ + + + | SODIUM, | 137 | 136 - 145 | [facility] | | | PLASMA | | mmol/L | LABORATORY | | | (LAB) | | | SERVICES, | | | | | | CORE | | + +---------+ + + + | POTASSIUM, | 3.7 | 3.4 - 5.0 | [facility] | [...] + + + | TOTAL CO2, | 25 | 21 - 32 mmol/L | [facility] | | | PLASMA | | | LABORATORY | | | (LAB) | | | SERVICES, | | | | | | CORE | | + +---------+ + + + | CALCIUM, | 8.2 (L) | 8.6 - 10.2 | [facility] | | | PLASMA | | mg/dL | LABORATORY | | | (LAB) | | | SERVICES, | | | | | | CORE | | + +---------+ + + + | ANION GAP | 4 | 4 - 11 mmol/L | [facility] | | | | [...] | | Kidney Failure Estimated GFR greater than 60 mL/min/1.73 sq m is of | | | limited clinical value. 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, soft tissue, | | and skin | + + | Lower extremity weakness Other musculoskeletal symptoms referable to limbs | + + | Anxiety Anxiety state, unspecified | + + | At risk for constipation Other specified conditions influencing health status | + + | 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 | + + | At risk for venous thromboembolism | + + documented in this encounter Administered Medications + +--------+ +--------+------+------+ | Medication Order | MAR | Action | Dose | Rate | Site | | | Action | Date | | | | + +--------+ +--------+------+------+ | acetaminophen (TYLENOL) tablet | Given | 07/06/20 | 650 mg | | | | 325-650 mg 325-650 mg, oral, | | 18 10:05 | | | | | EVERY 6 HOURS NEEDED, Starting | | PM PST | | | | | 07/06/18 at 1413, Until Mon | | | | | | | 07/08/18 at 2027, mild pain, | | | | | | | multimodal pain control, fever | | | | | | | greater than 38.5 degrees C | | | | | | + +--------+ +--------+------+------+ +-------+ +--------+---+---+ | Given | 07/06/20 | 650 mg | | | | | 18 4:23 | | | | | | PM PST | | | | +-------+ +--------+---+---+ +---+---+ | | | +---+---+ + +-------+ +--------+---+---+ | acetaminophen (TYLENOL) tablet | Given | 07/12/19 | 650 mg | | | | 650 mg 650 mg, oral, EVERY 6 | | 19 3:15 | | | | | HOURS, First dose (after last | | PM PST | | | | | modification) on Sun07/08/18 at | | | | | | | 2200, Until Discontinued | | | | | | + +-------+ +--------+---+---+ +-------+ +--------+---+---+ | Given | 07/12/19 | 650 mg | | | | | 19 9:48 | | | | | | AM PST | | | | +-------+ +--------+---+---+ | Given | 07/12/19 | 650 mg | | | | | 19 3:50 | | | | | | AM PST | | | | +-------+ +--------+---+---+ +---+---+ | | | +---+---+ + +-------+ +-------+---+---+ | baclofen (LIORESAL) tablet 10 | Given | 07/11/19 | 10 mg | | | | mg 10 mg, oral, AT BEDTIME, | | 19 9:53 | | | | | First dose on 07/06/18 at | | PM PST | | | | | 2200, Until Discontinued | | | | | | + +-------+ +-------+---+---+ +-------+ +-------+---+---+ | Given | 07/10/19 | 10 mg | | | | | 19 9:01 | | | | | | PM PST | | | | +-------+ +-------+---+---+ | Given | 07/09/19 | 10 mg | | | | | 19 9:16 | | | | | | PM PST | | | | +-------+ +-------+---+---+ +---+---+ | | | +---+---+ + +---------+ +-----+---+---+ | ceFAZolin (ANCEF) 2 g in NaCl | New Bag | 07/09/19 | 2 g | | | | 0.9 % (NS) IV 2 g, intravenous, | | 19 1:31 | | | | | EVERY 8 HOURS, 2 doses, First | | AM PST | | | | | dose on 07/08/18 at 1745, | | | | | | | Last dose on Sun07/09/18 at 0145 | | | | | | + +---------+ +-----+---+---+ +---------+ +-----+---+---+ | New Bag | 07/08/20 | 2 g | | | | | 18 5:37 | | | | | | PM PST | | | | +---------+ +-----+---+---+ +---+---+ | | | +---+---+ + +-------+ +------+---+---+ | dexamethasone (DECADRON) tablet | Given | 07/07/20 | 2 mg | | | | 2 mg 2 mg, oral, EVERY | | 18 8:21 | | | | | HOURS, First dose on 07/06/18 | | PM PST | | | | | at 2100, Until Discontinued | | | | | | + +-------+ +------+---+---+ +-------+ +------+---+---+ | Given | 07/07/20 | 2 mg | | | | | 18 9:29 | | | | | | AM PST | | | | +-------+ +------+---+---+ | Given | 07/06/20 | 2 mg | | | | | 18 10:05 | | | | | | PM PST | | | | +-------+ +------+---+---+ +---+---+ | | | +---+---+ + +-------+ +------+---+---+ | dexamethasone (DECADRON) tablet | Given | 07/11/19 | 2 mg | | | | 2 mg 2 mg, oral, EVERY 8 HOURS, | | 19 6:37 | | | | | 3 doses, First dose on Sun | | AM PST | | | | | 07/10/18 at 1500, Last dose on Sun | | | | | | | 07/11/18 at 0700 | | | | | | + +-------+ +------+---+---+ +-------+ +------+---+---+ | Given | 07/10/19 | 2 mg | | | | | 19 10:38 | | | | | | PM PST | | | | +-------+ +------+---+---+ | Given | 07/10/19 | 2 mg | | | | | 19 3:02 | | | | | | PM PST | | | | +-------+ +------+---+---+ +---+---+ | | | +---+---+ + +-------+ +------+---+---+ | dexamethasone (DECADRON) tablet | Given | 07/12/19 | 2 mg | | | | 2 mg 2 mg, oral, EVERY 12 | | 19 9:48 | | | | | HOURS, 2 doses, First dose on [place]iam | | AM PST | | | | | 07/11/18 at 1500, Last dose on Sun | | | | | | | 07/12/18 at 0900 | | | | | | + +-------+ +------+---+---+ +-------+ +------+---+---+ | Given | 07/11/19 | 2 mg | | | | | 19 3:40 | | | | | | PM PST | | | | +-------+ +------+---+---+ + +---+ | | | + +---+ | dexamethasone (DECADRON) tablet | | | 2 mg 2 mg, oral, EVERY 24 | | | HOURS, 1 dose, First dose on Sun | | | 07/12/18 at 2100 | | + +---+ | | | + +---+ + +-------+ +------+---+---+ | dexamethasone (DECADRON) tablet | Given | 07/09/19 | 4 mg | | | | 4 mg 4 mg, oral, EVERY 6 HOURS, | | 19 3:05 | | | | | First dose on 07/08/18 at | | AM PST | | | | | 1600, Until Discontinued | | | | | | + +-------+ +------+---+---+ +-------+ +------+---+---+ | Given | 07/08/20 | 4 mg | | | | | 18 10:06 | | | | | | PM PST | | | | +-------+ +------+---+---+ | Given | 07/08/20 | 4 mg | | | | | 18 3:45 | | | | | | PM PST | | | | +-------+ +------+---+---+ +---+---+ | | | +---+---+ + +-------+ +------+---+---+ | dexamethasone (DECADRON) tablet | Given | 07/09/19 | 4 mg | | | | 4 mg 4 mg, oral, EVERY 6 HOURS, | | 19 9:04 | | | | | 1 dose, First dose on Sun07/09/18 | | AM PST | | | | | at 0900 | | | | | | + +-------+ +------+---+---+ +---+---+ | | | +---+---+ + +-------+ +------+---+---+ | dexamethasone (DECADRON) tablet | Given | 07/10/19 | 4 mg | | | | 4 mg 4 mg, oral, EVERY 8 HOURS, | | 19 7:18 | | | | | 3 doses, First dose on Sun | | AM PST | | | | | 07/09/18 at 1500, Last dose on Sun | | | | | | | 07/10/18 at 0700 | | | | | | + +-------+ +------+---+---+ +-------+ +------+---+---+ | Given | 07/09/19 | 4 mg | | | | | 19 11:14 | | | | | | PM PST | | | | +-------+ +------+---+---+ | Given | 07/09/19 | 4 mg | | | | | 19 3:52 | | | | | | PM PST | | | | +-------+ +------+---+---+ +---+---+ | | | +---+---+ + +-------+ +------+---+---+ | diazePAM (VALIUM) tablet 2 mg | Given | 07/12/19 | 2 mg | | | | 2 mg, oral, THREE TIMES DAILY | | 19 3:36 | | | | | NEEDED, Starting Sun07/09/18 at | | PM PST | | | | | 2157, Until Sun07/12/18 at 2255, | | | | | | | muscle spasms | | | | | | + +-------+ +------+---+---+ +-------+ +------+---+---+ | Given | 07/12/19 | 2 mg | | | | | 19 4:06 | | | | | | AM PST | | | | +-------+ +------+---+---+ | Given | 07/11/19 | 2 mg | | | | | 19 9:53 | | | | | | PM PST | | | | +-------+ +------+---+---+ +---+---+ | | | +---+---+ + +-------+ +-------+---+---+ | diphenhydrAMINE (BENADRYL) | Given | 07/09/19 | 25 mg | | | | capsule 25 mg 25 mg, oral, ONCE, | | 19 2:08 | | | | | 1 dose, 07/09/18 at 0230 | | AM PST | | | | + +-------+ +-------+---+---+ +---+---+ | | | +---+---+ + +-------+ +-------+---+---+ | diphenhydrAMINE (BENADRYL) | Given | 07/09/19 | 25 mg | | | | capsule 25 mg 25 mg, oral, ONCE, | | 19 3:14 | | | | | 1 dose, 07/09/18 at 0345 | | AM PST | | | | + +-------+ +-------+---+---+ +---+---+ | | | +---+---+ + +-------+ +-------+---+---+ | diphenhydrAMINE (BENADRYL) | Given | 07/11/19 | 25 mg | | | | capsule 25 mg 25 mg, oral, EVERY | | 19 10:15 | | | | | 6 HOURS NEEDED, Starting Tue | | PM PST | | | | | 07/09/18 at 0735, Until 07/12/18 | | | | | | | at 2255, itching | | | | | | + +-------+ +-------+---+---+ +-------+ +-------+---+---+ | Given | 07/10/19 | 25 mg | | | | | 19 11:46 | | | | | | PM PST | | | | +-------+ +-------+---+---+ | Given | 07/10/19 | 25 mg | | | | | 19 1:19 | | | | | | PM PST | | | | +-------+ +-------+---+---+ +---+---+ | | | +---+---+ + +-------+ +--------+---+---+ | DULoxetine (CYMBALTA) capsule | Given | 07/11/19 | 120 mg | | | | 120 mg 120 mg, oral, AT BEDTIME, | | 19 9:53 | | | | | First dose on 07/06/18 at | | PM PST | | | | | 2200, Until Discontinued | | | | | | + +-------+ +--------+---+---+ +-------+ +--------+---+---+ | Given | 07/10/19 | 120 mg | | | | | 19 9:01 | | | | | | PM PST | | | | +-------+ +--------+---+---+ | Given | 07/09/19 | 120 mg | | | | | 19 9:15 | | | | | | PM PST | | | | +-------+ +--------+---+---+ +---+---+ | | | +---+---+ + +-------+ +-------+---+---------+ | enoxaparin (LOVENOX) injection | Given | 07/11/19 | 40 mg | | Abdomen | | 40 mg 40 mg, subcutaneous, EVERY | | 19 9:57 | | | | | EVENING, First dose on Sun | | PM PST | | | | | 07/10/18 at 2100, Until | | | | | | | Discontinued | | | | | | + +-------+ +-------+---+---------+ +-------+ +-------+---+---------+ | Given | 07/10/19 | 40 mg | | Abdomen | | | 19 9:01 | | | | | | PM PST | | | | +-------+ +-------+---+---------+ +---+---+ | | | +---+---+ + +-------+ +--------+---+---+ | gabapentin (NEURONTIN) capsule | Given | 07/08/20 | 300 mg | | | | 300 mg 300 mg, oral, TWICE | | 18 3:46 | | | | | DAILY, First dose (after last | | PM PST | | | | | modification) on 07/07/18 at | | | | | | | 1215, Until Discontinued | | | | | | + +-------+ +--------+---+---+ +-------+ +--------+---+---+ | Given | 07/07/20 | 300 mg | | | | | 18 1:54 | | | | | | PM PST | | | | +-------+ +--------+---+---+ +---+---+ | | | +---+---+ + +-------+ +--------+---+---+ | gabapentin (NEURONTIN) capsule | Given | 07/08/20 | 600 mg | | | | 600 mg 600 mg, oral, AT BEDTIME, | | 18 10:06 | | | | | First dose on 07/06/18 at | | PM PST | | | | | 2200, Until Discontinued | | | | | | + +-------+ +--------+---+---+ +-------+ +--------+---+---+ | Given | 07/07/20 | 600 mg | | | | | 18 8:21 | | | | | | PM PST | | | | +-------+ +--------+---+---+ | Given | 07/06/20 | 600 mg | | | | | 18 10:05 | | | | | | PM PST | | | | +-------+ +--------+---+---+ +---+---+ | | | +---+---+ + +-------+ +--------+---+---+ | gabapentin (NEURONTIN) capsule | Given | 07/12/19 | 600 mg | | | | 600 mg 600 mg, oral, THREE TIMES | | 19 3:15 | | | | | DAILY, First dose (after last | | PM PST | | | | | modification) on Sun07/09/18 at | | | | | | | 0900, Until Discontinued | | | | | | + +-------+ +--------+---+---+ +-------+ +--------+---+---+ | Given | 07/12/19 | 600 mg | | | | | 19 9:48 | | | | | | AM PST | | | | +-------+ +--------+---+---+ | Given | 07/11/19 | 600 mg | | | | | 19 9:53 | | | | | | PM PST | | | | +-------+ +--------+---+---+ +---+---+ | | | +---+---+ + +---------+ +-------+---+---+ | gadoterate meglumine (DOTAREM) | IV Push | 07/07/20 | 13 mL | | | | 0.5 mmol/mL (376.9 mg/mL) | | 18 12:25 | | | | | injection 13 mL 13 mL (rounded | | AM PST | | | | | from 13.24 mL = 0.2 mL/kg | | | | | | | 66.2 kg), intravenous, ONCE, 1 | | | | | | | dose, 07/07/18 at 0030 | | | | | | + +---------+ +-------+---+---+ +---+---+ | | | +---+---+ + +-------+ +------+---+---+ | HYDROmorphone (DILAUDID) | Given | 07/11/19 | 1 mg | | | | injection 0.5-1 mg 0.5-1 mg, | | 19 12:35 | | | | | intravenous, EVERY 2 HOURS | | AM PST | | | | | NEEDED, Starting 07/09/18 at | | | | | | | 1129, Until Sun07/12/18 at 0720, | | | | | | | severe pain, breakthrough pain or | | | | | | | moderate-severe pain if patient | | | | | | | unable to tolerate PO medications | | | | | | + +-------+ +------+---+---+ +-------+ +------+---+---+ | Given | 07/10/19 | 1 mg | | | | | 19 8:16 | | | | | | PM PST | | | | +-------+ +------+---+---+ | Given | 07/10/19 | 1 mg | | | | | 19 1:10 | | | | | | PM PST | | | | +-------+ +------+---+---+ +---+---+ | | | +---+---+ + +-------+ +--------+---+---+ | HYDROmorphone (DILAUDID) | Given | 07/09/19 | 0.5 mg | | | | injection 0.5-1.5 mg 0.5-1.5 mg, | | 19 7:51 | | | | | intravenous, EVERY 2 HOURS | | AM PST | | | | | NEEDED, Starting 07/06/18 at | | | | | | | 1413, Until 07/09/18 at 1130, | | | | | | | breakthrough pain or | | | | | | | moderate-severe pain if patient | | | | | | | unable to tolerate PO medications | | | | | | + +-------+ +--------+---+---+ +-------+ +------+---+---+ | Given | 07/09/19 | 1 mg | | | | | 19 7:24 | | | | | | AM PST | | | | +-------+ +------+---+---+ | Given | 07/09/19 | 1 mg | | | | | 19 2:08 | | | | | | AM PST | | | | +-------+ +------+---+---+ +---+---+ | | | +---+---+ + +-------+ +------+---+---+ | HYDROmorphone (DILAUDID) tablet | Given | 07/12/19 | 6 mg | | | | 2-6 mg 2-6 mg, oral, EVERY 3 | | 19 3:15 | | | | | HOURS NEEDED, Starting Tue | | PM PST | | | | | 07/09/18 at 1128, Until 07/12/18 | | | | | | | at 2255, moderate pain | | | | | | + +-------+ +------+---+---+ +-------+ +------+---+---+ | Given | 07/12/19 | 6 mg | | | | | 19 11:43 | | | | | | AM PST | | | | +-------+ +------+---+---+ | Given | 07/12/19 | 6 mg | | | | | 19 7:18 | | | | | | AM PST | | | | +-------+ +------+---+---+ +---+---+ | | | +---+---+ + +---------+ +--------+---+---+ | lactated Ringers IV 500 mL, | New Bag | 07/09/19 | 500 mL | | | | intravenous, ONCE, 1 dose, Tue | | 19 1:32 | | | | | 07/09/18 at 0200 | | AM PST | | | | + +---------+ +--------+---+---+ +---+---+ | | | +---+---+ + + + +--------+---+---+ | lactated Ringers IV 500 mL, | Bolus | 07/09/19 | 500 mL | | | | intravenous, ONCE, 1 dose, Tue | from | 19 3:15 | | | | | 07/09/18 at 0345 | Same Bag | AM PST | | | | + + + +--------+---+---+ +---+---+ | | | +---+---+ + +---------+ + +---+---+ | lactated Ringers IV 1,000 mL, | New Bag | 07/09/19 | 1,000 mL | | | | intravenous, ONCE, 1 dose, Tue | | 19 4:45 | | | | | 07/09/18 at 0500 | | AM PST | | | | + +---------+ + +---+---+ +---+---+ | | | +---+---+ + + + +---------+---+ + | lidocaine (LIDODERM) 5 % patch | Applied | 07/12/19 | 1 patch | | Left Mid | | 1 patch 1 patch, transdermal, | Patch | 19 3:50 | | | Back | | EVERY 24 HOURS, First dose on Tue | | AM PST | | | | | 07/09/18 at 0245, Until | | | | | | | Discontinued | | | | | | + + + +---------+---+ + + + +---------+---+ + | Applied Patch | 07/11/19 | 1 patch | | Left Mid | | | 19 2:08 | | | Back | | | AM PST | | | | + + +---------+---+ + | Applied Patch | 07/10/19 | 1 patch | | Right | | | 19 2:01 | | | Mid Back | | | AM PST | | | | + + +---------+---+ + +---+---+ | | | +---+---+ + + + +---------+---+ + | lidocaine (LIDODERM) 5 % patch | Applied | 07/12/19 | 1 patch | | Right | | 1 patch 1 patch, transdermal, | Patch | 19 3:50 | | | Mid Back | | EVERY 24 HOURS, First dose on Sun | | AM PST | | | | | 07/09/18 at 0245, Until | | | | | | | Discontinued | | | | | | + + + +---------+---+ + + + +---------+---+ + | Applied Patch | 07/11/19 | 1 patch | | Right | | | 19 2:07 | | | Mid Back | | | AM PST | | | | + + +---------+---+ + | Applied Patch | 07/10/19 | 1 patch | | Left Mid | | | 19 2:00 | | | Back | | | AM PST | | | | + + +---------+---+ + +---+---+ | | | +---+---+ + +-------+ +------+---+---+ | LORazepam (ATIVAN) injection 1 | Given | 07/08/20 | 1 mg | | | | mg 1 mg, intravenous, ONCE, 1 | | 18 8:02 | | | | | dose, 07/08/18 at 0815 | | AM PST | | | | + +-------+ +------+---+---+ +---+---+ | | | +---+---+ + +-------+ +------+---+---+ | LORazepam (ATIVAN) injection | Given | 07/07/20 | 1 mg | | | | 1-2 mg 1-2 mg, intravenous, | | 18 2:23 | | | | | ONCE, 1 dose, [place] 07/07/18 at | | PM PST | | | | | 1315 | | | | | | + +-------+ +------+---+---+ +---+---+ | | | +---+---+ + +-------+ +--------+---+---+ | LORazepam (ATIVAN) tablet 0.5 | Given | 07/11/19 | 0.5 mg | | | | mg 0.5 mg, oral, ONCE, 1 dose, | | 19 3:47 | | | | | [place] 07/11/18 at 1430 | | PM PST | | | | + +-------+ +--------+---+---+ +---+---+ | | | +---+---+ + +-------+ +------+---+---+ | LORazepam (ATIVAN) tablet 1 mg | Given | 07/09/19 | 1 mg | | | | 1 mg, oral, ONCE, 1 dose, Tue | | 19 1:09 | | | | | 07/09/18 at 1345 | | PM PST | | | | + +-------+ +------+---+---+ +---+---+ | | | +---+---+ + +-------+ + +---+---+ | multivitamin (THERA VITAMIN) 1 | Given | 07/12/19 | 1 tablet | | | | tablet 1 tablet, oral, DAILY, | | 19 9:48 | | | | | First dose on Sun07/10/18 at 1800, | | AM PST | | | | | Until Discontinued | | | | | | + +-------+ + +---+---+ +-------+ + +---+---+ | Given | 07/11/19 | 1 tablet | | | | | 19 8:31 | | | | | | AM PST | | | | +-------+ + +---+---+ | Given | 07/10/19 | 1 tablet | | | | | 19 6:02 | | | | | | PM PST | | | | +-------+ + +---+---+ +---+---+ | | | +---+---+ + + + +---+-------+---+ | NaCl 0.9%-KCl 20 mEq/L IV | Rate/Dos | 07/07/20 | | 105 | | | infusion intravenous, | e Verify | 18 1:46 | | mL/hr | | | CONTINUOUS, Starting 07/06/18 | | AM PST | | | | | at 1445, Until 07/08/18 at | | | | | | | 1457, at 105 mL/hr | | | | | | + + + +---+-------+---+ +---------+ +---+-------+---+ | New Bag | 07/06/20 | | 105 | | | | 18 5:55 | | mL/hr | | | | PM PST | | | | +---------+ +---+-------+---+ +---+---+ | | | +---+---+ + + + +---+ +---+ | NaCl 0.9%-KCl 20 mEq/L IV | Rate/Dos | 07/09/19 | | 75 mL/hr | | | infusion intravenous, | e Verify | 19 10:00 | | | | | CONTINUOUS, Starting 07/08/18 | | AM PST | | | | | at 1345, Until Sun07/09/18 at | | | | | | | 1002, at 75 mL/hr | | | | | | + + + +---+ +---+ + + +---+ +---+ | Rate/Dose Verify | 07/09/19 | | 75 mL/hr | | | | 19 9:00 | | | | | | AM PST | | | | + + +---+ +---+ | Rate/Dose Verify | 07/09/19 | | 75 mL/hr | | | | 19 8:00 | | | | | | AM PST | | | | + + +---+ +---+ + +---+ | | | + +---+ | ondansetron (ZOFRAN) injection | | | 4 mg 4 mg, intravenous, EVERY 12 | | | HOURS NEEDED, Starting Tue | | | 07/09/18 at 1130, Until 07/12/18 | | | at 2255, nausea/vomiting, first | | | line | | + +---+ | | | + +---+ + +-------+ +------+---+---+ | ondansetron (ZOFRAN) tablet 8 | Given | 07/07/20 | 8 mg | | | | mg 8 mg, oral, EVERY 12 HOURS | | 18 9:36 | | | | | NEEDED, Starting 07/06/18 at | | AM PST | | | | | 1413, Until 07/08/18 at | | | | | | | 1457, nausea/vomiting, first line | | | | | | + +-------+ +------+---+---+ +---+---+ | | | +---+---+ + +-------+ +-------+---+---+ | oxyCODONE (immediate release) | Given | 07/09/19 | 20 mg | | | | (ROXICODONE) tablet 10-20 mg | | 19 9:03 | | | | | 10-20 mg, oral, EVERY 3 HOURS | | AM PST | | | | | NEEDED, Starting Sun07/09/18 at | | | | | | | 0203, Until Sun07/09/18 at 1130, | | | | | | | moderate pain, severe pain | | | | | | + +-------+ +-------+---+---+ +-------+ +-------+---+---+ | Given | 07/09/19 | 5 mg | | | | | 19 6:07 | | | | | | AM PST | | | | +-------+ +-------+---+---+ | Given | 07/09/19 | 15 mg | | | | | 19 6:03 | | | | | | AM PST | | | | +-------+ +-------+---+---+ +---+---+ | | | +---+---+ + +-------+ +-------+---+---+ | oxyCODONE (immediate release) | Given | 07/09/19 | 15 mg | | | | (ROXICODONE) tablet 5-15 mg 5-15 | | 19 12:01 | | | | | mg, oral, EVERY 3 HOURS | | AM PST | | | | | NEEDED, Starting 07/06/18 at | | | | | | | 1413, Until 07/09/18 at 0204, | | | | | | | moderate pain, severe pain | | | | | | + +-------+ +-------+---+---+ +-------+ +-------+---+---+ | Given | 07/08/20 | 10 mg | | | | | 18 7:49 | | | | | | PM PST | | | | +-------+ +-------+---+---+ | Given | 07/06/20 | 5 mg | | | | | 18 5:54 | | | | | | PM PST | | | | +-------+ +-------+---+---+ +---+---+ | | | +---+---+ + +-------+ +------+---+---+ | polyethylene glycol (MIRALAX) | Given | 07/12/19 | 17 g | | | | packet 17 g 17 g, oral, DAILY, | | 19 9:48 | | | | | First dose on 07/06/18 at | | AM PST | | | | | 1600, Until Discontinued | | | | | | + +-------+ +------+---+---+ +-------+ +------+---+---+ | Given | 07/11/19 | 17 g | | | | | 19 8:31 | | | | | | AM PST | | | | +-------+ +------+---+---+ | Given | 07/10/19 | 17 g | | | | | 19 9:07 | | | | | | AM PST | | | | +-------+ +------+---+---+ +---+---+ | | | +---+---+ + +-------+ +------+---+---+ | polyethylene glycol (MIRALAX) | Given | 07/11/19 | 34 g | | | | packet 34 g 34 g, oral, THREE | | 19 9:58 | | | | | TIMES DAILY NEEDED, Starting | | PM PST | | | | | 07/06/18 at 1413, Until Fri | | | | | | | 07/12/18 at 2255, 1st line - for no | | | | | | | BM for 2 days | | | | | | + +-------+ +------+---+---+ +-------+ +------+---+---+ | Given | 07/09/19 | 17 g | | | | | 19 4:31 | | | | | | PM PST | | | | +-------+ +------+---+---+ +---+---+ | | | +---+---+ + +-------+ +-------+---+---+ | prochlorperazine (COMPAZINE) | Given | 07/07/20 | 10 mg | | | | injection 5-10 mg 5-10 mg, | | 18 5:54 | | | | | intravenous, EVERY 6 HOURS | | AM PST | | | | | NEEDED, Starting 07/06/18 at | | | | | | | 1413, Until 07/12/18 at 2255, | | | | | | | nausea/vomiting not responding to | | | | | | | ondansetron and unable to take | | | | | | | oral prochlorperazine | | | | | | + +-------+ +-------+---+---+ +-------+ +------+---+---+ | Given | 07/07/20 | 5 mg | | | | | 18 1:07 | | | | | | AM PST | | | | +-------+ +------+---+---+ +---+---+ | | | +---+---+ + +-------+ +---------+---+---+ | senna-docusate (SENOKOT S) | Given | 07/07/20 | 2 | | | | 8.6-50 mg 2 tablet 2 tablet, | | 18 8:21 | tablets | | | | oral, TWICE DAILY, First dose on | | PM PST | | | | | 07/06/18 at 2100, Until | | | | | | | Discontinued | | | | | | + +-------+ +---------+---+---+ +-------+ +---------+---+---+ | Given | 07/07/20 | 2 | | | | | 18 9:29 | tablets | | | | | AM PST | | | | +-------+ +---------+---+---+ | Given | 07/06/20 | 2 | | | | | 18 10:05 | tablets | | | | | PM PST | | | | +-------+ +---------+---+---+ +---+---+ | | | +---+---+ + +-------+ +---------+---+---+ | senna-docusate (SENOKOT S) | Given | 07/12/19 | 2 | | | | 8.6-50 mg 2 tablet 2 tablet, | | 19 9:48 | tablets | | | | oral, TWICE DAILY, First dose on | | AM PST | | | | | 07/09/18 at 1200, Until | | | | | | | Discontinued | | | | | | + +-------+ +---------+---+---+ +-------+ +---------+---+---+ | Given | 07/11/19 | 2 | | | | | 19 9:53 | tablets | | | | | PM PST | | | | +-------+ +---------+---+---+ | Given | 07/11/19 | 2 | | | | | 19 8:31 | tablets | | | | | AM PST | | | | +-------+ +---------+---+---+ +---+---+ | | | +---+---+ + +-------+ +------+---+---+ | tiZANidine (ZANAFLEX) tablet 4 | Given | 07/09/19 | 4 mg | | | | mg 4 mg, oral, THREE TIMES DAILY | | 19 7:51 | | | | | NEEDED, Starting 07/06/18 | | AM PST | | | | | at 1413, Until 07/09/18 at | | | | | | | 1130, muscle spasms | | | | | | + +-------+ +------+---+---+ +-------+ +------+---+---+ | Given | 07/09/19 | 4 mg | | | | | 19 1:32 | | | | | | AM PST | | | | +-------+ +------+---+---+ | Given | 07/08/20 | 4 mg | | | | | 18 6:56 | | | | | | PM PST | | | | +-------+ +------+---+---+ +---+---+ | | | +---+---+ + +-------+ +-------+---+---+ | traZODone (DESYREL) dose 75 mg | Given | 07/11/19 | 75 mg | | | | 75 mg, oral, AT BEDTIME, First | | 19 10:23 | | | | | dose (after last modification) on | | PM PST | | | | | 07/09/18 at 2200, Until | | | | | | | Discontinued | | | | | | + +-------+ +-------+---+---+ +-------+ +-------+---+---+ | Given | 07/11/19 | 75 mg | | | | | 19 12:44 | | | | | | AM PST | | | | +-------+ +-------+---+---+ | Given | 07/09/19 | 75 mg | | | | | 19 9:15 | | | | | | PM PST | | | | +-------+ +-------+---+---+ +---+---+ | | | +---+---+ + +-------+ +-------+---+---+ | traZODone (DESYREL) tablet 50 | Given | 07/09/19 | 50 mg | | | | mg 50 mg, oral, AT BEDTIME, | | 19 12:00 | | | | | First dose on 07/06/18 at | | AM PST | | | | | 2200, Until Discontinued | | | | | | + +-------+ +-------+---+---+ +-------+ +-------+---+---+ | Given | 07/07/20 | 50 mg | | | | | 18 11:20 | | | | | | PM PST | | | | +-------+ +-------+---+---+ +---+---+ | | | +---+---+ + +-------+ +-------+---+---+ | traZODone (DESYREL) tablet 50 | Given | 07/09/19 | 50 mg | | | | mg 50 mg, oral, AT BEDTIME | | 19 3:14 | | | | | NEEDED, Starting 07/06/18 at | | AM PST | | | | | 1444, Until 07/09/18 at 1002, | | | | | | | insomnia, give if unable to sleep | | | | | | | 1-2 hours after scheduled dose | | | | | | + +-------+ +-------+---+---+ +-------+ +-------+---+---+ | Given | 12/30/20 | 50 mg | | | | | 18 11:20 | | | | | | PM PST | | | | +-------+ +-------+---+---+ +---+---+ | | | +---+---+ documented in this encounter
--- OUTSIDE RECORDS SUMMARY | ~2019-06-26 | XMS | Encounter Summary ---
Demographics + + + | Address | [address] | | | [place] [address] | + + + | Home Phone | | + + + | Preferred Language | Unknown | + + + | Marital Status | Single | + + + | Hindu Affiliation | NON | + + + | Race | White | + + + | Ethnic Group | Not or | + + + Author + + + | Author | [facility] | + + + | Organization | [facility] | + + + | [...] Team Providers + +------+ + | Care Medical Transport Specialist Name | Role | Phone | [...] Closed | | Radiology | Diagnoses | Romario, | | | | | | Spinal cord | Raegan Nieves | | | | | | tumor | [address] | | | | | | Procedures | [address] | | | | | | MRI SPINE | [place], | | | | | | THORACIC WWO | [place] | | | | | | CONTRAST | [address] | | | | | | | Phone: | | | | | | | [phone] | | | | | | | Fax: | | | | | | | [phone] | | +--------+--------+ + + + + Reason for Visit +---------+ + | Reason | Comments | +---------+ + | Post Op | | +---------+ + Other (Routine) +--------+--------+ + + + + | Status | Reason | Specialty | Diagnoses / | Referred By | Referred To | | | | | Procedures | Contact | Contact | +--------+--------+ + + + + | Closed | | Neurological | | Emergency | [facility], | | | | Surgery | | Dept Hrc | Rajinder Fisher MD | | | | | | [address] | [address] | | | | | | [address] | [address] | | | | | | [address] [facility] | [place], [place] | | | | | | Hospital | [address] | | | | | | [place], [place] | Phone: | | | | | | [address] | [phone] | | | | | | Phone: | Fax: | | | | | | [phone] | [phone] | +--------+--------+ + + + + Encounter Details +--------+---------+ + + + | Date | Type | Department | Care Team | Description | +--------+---------+ + + + | 10/19/ | Office | Neurosurgery at | Raegan Doss, | Spinal cord tumor | | 2016 | Visit | [facility] [address] | PAAndrewC [address] | (Primary Dx) | | | | Ave Mailcode: [id number] | [place], [place] | | | | | [facility] | [address] | | | | | and Healing, | [phone] | | | | | | | | | | | Floor [place], [place] | | | | | | [address] | | | | | | [phone] | | | +--------+---------+ + + + [...] documented as of this encounter Progress Notes Raegan Doss PA-C - 10/20/2015 5:18 PM PDTFormatting of this note might be different f rom the original. Matt Fagan is a pleasant 24YOF who returns to clinic with her family for a routine 5 week post-op check. 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 She discharged to [facility] for 2-3 weeks a nd make substantial functional gains. She is now able to walk around her house/short distanc es with just a cane, otherwise she uses a wheelchair for longer distances. She reports that her abdominal numbness has improved though she still has significant numbness in her legs, L >R. She is happy with her recovery, but understandably concerned about her future course in the setting of this spinal cord tumor. She reports that she has gotten back into a relations hip with her boyfriend and is moving to [facility] next month. She denies having any wound concerns . PE: Alert, oriented x3. Speech clear, fluent. Gaze conjugate. Face symmetric. Thoracic incision: flat, no erythema, intact. LT sensation impaired worse on L leg than R leg. Motor: HF KE KF APF ADF Left 5 5 5 5 5 Right 4+ 5 5 5 3 Walks with smooth gait with a cane. 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 Improvement in BLE strength post-op. Wound healed well. Plan: -Patient discussed with Dr. Luis -ARIELLE in 3 months with a repeat thoracic MRI wwo prior -Follow up with [facility] outpatient therapy as scheduled NEUROSURGERY AT [facility] [address] Mailcode: [id number] [place] [address] documented in this encounter Plan of Treatment + +---------+--------+ + + | Name | Type | Priori | Associated Diagnoses | Order Schedule | | | | ty | | | + +---------+--------+ + + | MRI SPINE THORACIC | Imaging | Routin | Spinal cord tumor | Expected: | | [facility] CONTRAST | | e | | 10/21/2015, Expires: | | | | | | 11/19/2016 | + +---------+--------+ + + documented as of this encounter Visit Diagnoses + + | Diagnosis | + + | 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
--- OUTSIDE RECORDS SUMMARY | ~2019-06-26 | XMS | Encounter Summary ---
Demographics + + + | Address | [address] | | | [place] [address] | + + + | Home Phone | | + + + | Preferred Language | Unknown | + + + | Marital Status | Single | + + + | Latter Day Affiliation | NON | + + + | Race | White | + + + | Ethnic Group | Not or | + + + Author + + + | Author | [facility] | + + + | Organization | [facility] | + + + | Address [...] Team Providers + +------+ + | Care Picker / Packer Name | Role | Phone | + [...] | Event | [address] | [address] | | | | | [facility] | [address] | | | | | Hospital Admitting | [place], [place] | | | | | Desk Located on the | [address] | | | | | 9th floor | [phone] | | | | | [place], [place] | | | | | | [address] | | | +--------+ + + + [...] Incision | Forced air warmer connected to power driven brush maker recommended warming | | | 9 | [...] | | Endotracheal Tube; 7; Oral; | CANARY BREEDER | CANARY BREEDER | | | Cuffed; 07/08/18; 1304 | | | +--------+ + + + | Periph | 07/08/18; 0905; Jorge Kumar, | 07/08/18 0905 by | 07/11/18 1144 by | | eral | CANARY BREEDER; Right; Dorsal; Hand; 16 g; | Jorge Kumar, | Carmen Saul RN | | IV | No; No; Positive; 07/11/18; 1144 | CANARY BREEDER | | +--------+ + + + | Periph | 07/08/18; 905; Hermann Lanza, | 07/08/18905 by | 07/09/18 0600 by | | berenice | MD; Left; Hand; 18 g; No; No; | Jorge Stacy, | Brittnee Oscar RN | | IV | Positive; 07/09/18; 0600; Per | CANARY BREEDER | | | | patient/family request | [...] | + +--------+ + + + | ANE ETT | Routin | 07/08/2018 | | Results for this | | | e | 8:59 AM | | procedure are in the | | | | PST | | results section. | + +--------+ + + + documented in this encounter Results ANE ETT (07/08/2018 8:59 AM PST) + + [...] 9:45 | | | | | Starting Sun07/08/18 at 0945, | | AM PST | [...] | | | | | | Starting 07/08/18 at 0931, | | | | | | | Until 07/08/18 [...] 12:37 | | | | | Starting 07/08/18 at 1009, | | PM PST | [...] + + + +-------+---+ | lidocaine (XYLOCAINE) 1999 | Restarte | 12/31/20 | 2 | 33.1 | | | [...] 18 9:41 | | | | | 18 at 0941, Until Mon | | AM PST | | | | | 18 at 1304 | | | | | | + +-------+ +------+---+---+ +---+---+ | | | +---+---+ + + + + +---+---+ | propofol (DIPRIVAN) 200 mg | Restarte | 07/08/20 | 200 | | | | INTRAPROCEDURE CONTINUOUS PRN, | d | 18 12:36 | mcg/kg/m | | | | Starting 07/08/18 at 0900, | | PM PST | [...]
--- OUTSIDE RECORDS SUMMARY | ~2019-06-26 | XMS | Encounter Summary ---
Demographics + + + | Address | [address] | | | [place] [address] | + + + | Home Phone | | + + + | Preferred Language | Unknown | + + + | Marital Status | Single | + + + | Yarsani Affiliation | NON | + + + | Race | White | + + + | Ethnic Group | Not or | + + + Author + + + | Author | [facility] | + + + | Organization | [facility] | + + + [...] Team Providers + +------+ + | Care Mottler Operator Name | Role | Phone | + +------+ + | Hannah Sosa | PCP | | + +------+ + Reason for Referral Occupational Therapy (Routine) + +--------+ + + + + | Status | Reason | Specialty | Diagnoses / | Referred By | Referred To | | | | | Procedures | Contact | Contact | + +--------+ + + + + | New Request | | Occupational | Diagnoses | Romario | | | | | Therapy | Weakness of | Raheem Nieves | | | | | | right lower | PA-C [address] | | | | | | extremity | [address] | | | | | | Procedures | [facility], | | | | | | OCCUPATIONAL | [place] | | | | | | THERAPY | [address] | | | | | | REFERRAL | Phone: | | | | | | | [phone] | | | | | | | Fax: | | | | | | | [phone] | | + +--------+ + + + + Physical Therapy (Routine) +--------+--------+ + + + + | Status | Reason | Specialty | Diagnoses / | Referred By | Referred To | | | | | Procedures | Contact | Contact | +--------+--------+ + + + + | Closed | | Physical | Diagnoses | Romario, | | | | | Therapy | Weakness of | Raheem Nieves, | | | | | | right lower | PA-C [address] | | | | | | extremity | [address] | | | | | | Procedures | [facility], | | | | | | PHYSICAL | [place] | | | | | | THERAPY | [address] | | | | | | REFERRAL | Phone: | | | | | | | [phone] | | | | | | | Fax: | | | | | | | [phone] | | +--------+--------+ + + + + Consult to [place] (Routine) + +--------+ + + + + | Status | Reason | Specialty | Diagnoses / | Referred By | Referred To | | | | | Procedures | Contact | Contact | + +--------+ + + + + | Pending | | Spine | Diagnoses | Luis, | Toby, | | Review | | | Weakness of | Rajinder Fisher MD | Rajinder Fisher MD | | | | | right lower | [address] | [address] | | | | | extremity | [address] | Ave | | | | | Hyperreflexi | [place] | | | | | a Thoracic | [address] | [address] | | | | | spine tumor | Phone: | Phone: | | | | | Procedures | [phone] | [phone] | | | | | SURGICAL | Fax: | Fax: | | | | | CASE REQUEST | [phone] | [phone] | + +--------+ + + + + Reason for Visit + + + | Reason | Comments | + + + | Focal Motor Weakness | | + + + AUTH/CERT +--------+--------+ [...] + + + + | 10/01/ | Hospital | [facility] [address] | Tavo English | | | 2019 - | Encounter | [address] Tierra Mai MD [address] | | | | | [facility] [place], | [address] | | | 10/08/ | | [place] [address] | [place], [place] | | | 2018 | | [phone] | [address] | | | | | | [phone] | | | | | | | | | | | | Nanette Chapin MD | | | | | | [address] | | | | | | [facility] | | | | | | [place], [place] | | | | | | [address] | | | | | | [phone] | | | | | | | | | | | | Shahram Medina MD | | | | | | [address] | | | | | | [place], [place] | | | | | | [address] | | | | | | [phone] | | | | | | | | | | | | Rajinder Luis MD | | | | | | [address] | | | | | | [place], [place] | | | | | | [address] | | | | | | [phone] | | | | | | | [...] + + + | Blood Pressure | 97/56 | 10/08/2018 8:50 AM | | | | | PDT | | + + + + + | Pulse | 50 | 10/08/2018 9:01 AM | apical HR | | | | PDT | | + + + + + | Temperature | 36.6 C (97.9 F) | 10/08/2018 8:50 AM | | | | | PDT | | + + + + + | Respiratory Rate | 14 | 10/08/2018 8:50 AM | | | | | PDT | | + + + + + | Oxygen Saturation | 95% | 10/08/2018 8:50 AM | | | | | PDT | | + + + + + | Inhaled Oxygen | - | - | | | Concentration | | | | + + + + + | Weight | 77.8 kg (171 lb 8.3 | 10/05/2018 12:44 PM | | | | oz) | PDT | | + + + + + | Height | 160 cm (5' 3") | 10/05/2018 12:44 PM | per pt | | | | PDT | | + + + + + | Body Mass Index | 30.38 | 10/05/2018 12:44 PM | | | | | PDT [...] encounter Discharge Summaries Raheem Doss PA-C - 10/08/2018 10:36 AM PDTFormatting of this note might be different f rom the original. 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 Brief Hospital Course Qiana Worrell is a 27-year-old female who is well known to our Neurosurgery Spine ser vice. She has a low-grade glioneuronal thoracic spinal cord tumor, for which she has underg one multiple resections, on May 13, 2015, September 09, 2015, March 22, 2016, January 13, , and most recently July 08, 2018. She was admitted through our emergency room due to complaints of worsening right lower extremity weakness. An MRI was obtained, which demonstr ated concern for progression of her tumor, and most notably enlargement of cystic spaces, in dicating incarcerated CSF flow, predominantly at the T7 and T10 areas. Due to the constella tion of clinical and radiographic findings, she was indicated for redo surgical debulking fo r decompression of the spinal cord. Ms. Worrell underwent a redo posterior midline thoracic approach through a prior T7 thro ugh T9 laminectomy corridor for resection of intradural spinal cord tumor on 10/03/18. Post o peratively, the patient was [facility]. Surgical pain was managed with medication. The patient made appropriate gains toward activity and f unctional goals while an inpatient. She felt improved strength in her right leg (hip flexors ) post-op. The patient worked with our rehabilitation team with recommendation for IPR upon discharge. While on the hospital floor, the patient tolerated oral intake sufficient to maintain nutri tion and hydration. The surgical wound remained clean, dry, and intact without signs concern ing for infection. The patient was felt appropriate for discharge to IPR on 10/08/2018, and t he patient and/or family members agree with this course of action. Pathology confirmed the surgically resected tissue was recurrent/residual low grade glioneu vashti tumor. Diet Regular Regular diet- There are no restrictions to your diet. You may eat or drink whatever you pr efer, though healthy food choices are recommended. Activity Lifting restrictions: No lifting more than 10 pounds. Avoid repetitive bending and all strenuous activity until further notice. No driving while taking oral narcotics/pain medications. Follow Up You have an appointment with Raheem Doss PA-C at 9:15 AM on 10/23/18. This will be on the 1 2th floor at the [facility] on the [facility] located at [address] [facility] [place] [address]. Please call [phone] if you have any questions or concerns bef ore your appointment time. Condition on Discharge Good Code Status for Facility Status: Full Code Discharge Follow Up - Facility MD to follow Facility MD to follow patient. PCP:PATRIC Flores When: Please follow-up with your primary care [...] changes Medication List START taking these medications dexamethasone 2 mg Tab Commonly known as: DECADRON On 10/08 at 9pm take 2mg On 10/09 at 9am take 2mg On 10/10 at 9am take 2mg then stop omeprazole 20 mg Cpdr Commonly known as: PRILOSEC Take 1 capsule by mouth before breakfast. Administer 30 to 60 minutes before meals Start taking on: 10/09/2018 ondansetron ODT 4 mg Tbdi Commonly known as: ZOFRAN ODT Dissolve 1-2 tablets on tongue and swallow every eight hours as needed. tiZANidine 4 mg Tab Commonly known as: ZANAFLEX Take 1 tablet by mouth three times daily as needed. Max: 36 mg / day. CONTINUE taking these medications acetaminophen 325 mg Tab Commonly known as: TYLENOL Take 2 tablets by mouth every six hours. baclofen 10 mg Tab Commonly known as: LIORESAL Take 10 mg by mouth once daily at bedtime. diazePAM 2 mg Tab Commonly known as: VALIUM Take 1 tablet by mouth three times daily as needed. diphenhydrAMINE 25 mg Cap Commonly known as: BENADRYL Take 1 capsule by mouth every six hours as needed. Indications: Urticaria DULoxetine 60 mg Cpdr Commonly known as: CYMBALTA Take 120 mg by mouth once daily at bedtime. enoxaparin 40 mg/0.4 mL Syrg Commonly known as: LOVENOX Inject 0.4 mL under the skin (SUBC) once daily in the evening. Okay to discontinue at discr etion of angie GUERRA or when patient is ambulating > 150ft TID Indications: Deep Vein Thrombosi s Prevention gabapentin 300 mg Cap Commonly known as: NEURONTIN Take 600 mg by mouth once daily at bedtime. HYDROmorphone 2 mg Tab Commonly known as: [...] Take 1 tablet by mouth once daily. NEXPLANON 68 mg Impl Generic drug: etonogestrel 1 Device by subdermal route. polyethylene glycol 17 gram Pwpk Commonly known as: MIRALAX Mix 1 packet and take orally once daily at bedtime. senna-docusate 8.6-50 mg Tab Commonly known as: SENOKOT S Take 2 tablets by mouth two times daily. traZODone 50 mg Tab Commonly known as: DESYREL Take 1.5 tablets by mouth once daily at bedtime. May take a second dose if not asleep withi n 1-2 hours. Wound Care: 1) Keep your incision site [...] need to be removed at 3 weeks post-op. Special Instructions/Tests: N/A Condition On Discharge: Good Vital Signs at discharge as appropriate: BP: 97/56 (10/08/18 0850) Pulse: 50 (apical HR) (10/08/18 0901) Resp: 14 (10/08/18 0850) Weight: 77.8 kg (171 lb 8.3 oz) (10/05/18 1244) Discharge Patient To: Interhospital Transfer [facility] Does patient have a planned readmission: No Discharge Summary Completed?: Yes. 10/08/2018 Discharging Provider: RAHEEM DOSS PA-C Date Completed: 10/08/2018 Time Completed: 10:36 AM Discharging Attending: Rajinder Luis MD [facility] [address] [place] [address] documented in this encounter Medications at Time [...] + + + +---------+ + + | dexamethasone 2 mg | On 10/08 at 9pm take | 3 | 0 | 10/09/19 | | | oral | 2mgOn 4/3 at 9am | tablet | | 19 | | | tabletIndications: | take 2mgOn 4/4 at | | | | | | Weakness of right | 9am take 2mg then | | | | | | lower extremity | stop | | | | | + + [...] under | 1 mL | 0 | /10/26 | | | mg/0.4 mL | the [...] + + + +---------+ + + | omeprazole 20 mg | Take 1 capsule by | 30 | 0 | 10/10/19 | | | oral capsule,delayed | mouth before | capsule | | 19 | | | | breakfast. | | | | | | release(DR/EC)Indica | Administer 30 to 60 | | | | | | tions: Weakness of | minutes before meals | | | | | | right lower | | | | | | | extremity | | | | | | + [...] tablets by | 30 | 0 | 20 | | | 8.6-50 mg oral | mouth two times | tablet | | 19 | | | tablet | daily. | | | | | + + + +---------+ + + | tiZANidine 4 mg | Take 1 tablet by | 30 | 0 | 20 | | | oral tablet | mouth three times | tablet | | 19 | | | | daily as needed. | | | | | | | Max: 36 mg / day. | | | | | + + [...] encounter Progress Notes Raheem Doss PA-C - 10/08/2018 10:07 AM PDTFormatting of this note might be different f rom the original. Neurosurgery Progress Note Hospital Day:7 Author; RAHEEM DOSS PA-C Attending Physician: Rajinder Luis MD Interval Hx: -No acute events overnight. Patient doing well this AM without complaint. -Daniels removed yesterday, has required SC x3 which is typical for this patient post-op Last Vitals: BP 97/56 (BP Location: Left upper arm, Patient Position: Lying on back) | Pul se 50 Comment: apical HR | Temp 36.6 C (97.9 F) | Resp 14 | Ht 1.6 m (5' 3") Comment: per pt | Wt 77.8 kg (171 lb 8.3 oz) | SpO2 95% | BMI 30.38 kg/m | BSA 1.86 m O2 Deli very Device: None (room air) (10/08/18 0901) 24 Hour Vital Min/Max: Systolic (24hrs), Av , Min:97 , Max:111 Diastolic (24hrs), Av, Min:56, Max:62Pulse Min: 51 Max: 72 Temp Min: 36.4 C (97.5 F) Max: 37.3 C (99.1 F) Resp Min: 16 Max: 16 SpO2 Min: 94 % Max: 97 % Intake/Output Summary (Last 24 hours) at 10/07/18 0869 Last data filed at 10/07/18 0535 Gross per 24 hour Intake 710 ml Output 4400 ml Net -3690 ml Exam: Alert, oriented x3. Speech clear, fluent. Thoracic incision: flat, dry, no erythema. Nylons present. Sensation: Decrease LT sensation to LLE>RLE (baseline) Motor: HF KF KE APF ADF Left 5 5 5 5 5 Right 4 5 5 5 5 Current Medications: acetaminophen (TYLENOL) tablet 325-650 mg, 325-650 mg, oral, Q6H PRN baclofen (LIORESAL) tablet 10 mg, 10 mg, oral, HS bisacodyl (DULCOLAX) suppository 10 mg, 10 mg, rectal, DAILY PRN dexamethasone (DECADRON) tablet 2 mg, 2 mg, oral, BID FOLLOWED BY [START ON 10/10/2018] d examethasone (DECADRON) tablet 2 mg, 2 mg, oral, DAILY diphenhydrAMINE (BENADRYL) capsule 25 mg, 25 mg, oral, Q6H PRN DULoxetine (CYMBALTA) capsule 120 mg, 120 mg, oral, HS enoxaparin (LOVENOX) injection 40 mg, 40 mg, subcutaneous, QPM gabapentin (NEURONTIN) capsule 600 mg, 600 mg, oral, BID HYDROmorphone (DILAUDID) tablet 2-6 mg, 2-6 mg, oral, Q3H PRN lidocaine (LIDODERM) 5 % patch 1 patch, 1 patch, transdermal, Q24H lidocaine (LIDODERM) 5 % patch 1 patch, 1 patch, transdermal, Q24H omeprazole (PRILOSEC) capsule 20 mg, 20 mg, oral, BEFORE BREAKFAST ondansetron ODT (ZOFRAN ODT) tablet 4-8 mg, 4-8 mg, oral, Q8H PRN polyethylene glycol (MIRALAX) packet 34 g, 34 g, oral, TID PRN senna-docusate (SENOKOT S) 8.6-50 mg 1 tablet, 1 tablet, oral, BID tiZANidine (ZANAFLEX) tablet 4 mg, 4 mg, oral, TID PRN traZODone (DESYREL) dose 75 mg, 75 mg, oral, HS Impression: 27YOF with low grade glioneuronal thoracic cord tumor s/p multiple resections on 05/13/15, , 03/22/2016, 01/13/17 and 07/08/18. Now with worsening RLE weakness and numbness and BLE L>R muscle fasciculations. Now s/p re-do midline thoracic approach through prior T7-T9 lonnie ectomy corridor for resection of intradural spinal cord tumor on 10/03/18. Improvement in RLE strength post-op. Wound intact. Plan: Neuro: Post-op improved RLE strength. On Dex taper to off by 10/11. Pain control with APAP, dilaudid 2-6mg q3h prn, Tizanidine prn muscle spasms. Has not had I V pain medication since 1100hours yesterday, 10/09. Cont home meds: Cymbalta, gabapentin. Wound: Routine wound care. Okay to shower/wash incision. No creams or ointments. Leave open to air. Will remove nylons ~ 3 weeks post-op. CV: HD stable. Pulm: IS, cough/deep breath GI/diet: Regular diet. +GI ppx. +Anti-emetics. : Daniels removed 10/07. Has urinary retention post-op which is the typical course for this p atient, will continue straight cathing. Musculoskeletal/skin: Routine decubitus ulcer prevention. Appreciate PT/OT involvement with recs for IPR. ID/Heme: Afebrile. DVT ppx: SCDs while in bed, on ppx lovenox. Dispo: To [facility] once accepted, hopeful for today. RAHEEM DOSS PA-C [facility] [address] [place] [address] dams, PHILIPPE Mena - 10/07/2018 8:33 AM PDT Neurosurgery Progress Note Hospital Day:6 Author; RAHEEM DSOS PA-C Attending Physician: Rajinder Luis MD Interval Hx: -Patient had a more painful night, thinks this is related to movement/positioning. Doing we ll now, pain at 5/10. Reports stronger R leg post-op, but still some new paresthesia symptom s that are different/worse than baseline in RLE. Last Vitals: BP 105/66 (BP Location: Right upper arm, Patient Position: Lying on back) | P ulse 67 | Temp 36.4 C (97.5 F) | Resp 16 | Ht 1.6 m (5' 3") Comment: per pt | Wt 77.8 kg (171 lb 8.3 oz) | SpO2 96% | BMI 30.38 kg/m | BSA 1.86 m O2 Delivery Device: Non e (room air) (10/07/18 0340) 24 Hour Vital Min/Max: Systolic (24hrs), Av , Min:105 , Max:116 Diastolic (24hrs), Av, Min:64, Max:74Puls e Min: 51 Max: 72 Temp Min: 36.4 C (97.5 F) Max: 37.3 C (99.1 F) Resp Min: 16 Max: 16 SpO2 Min: 94 % Max: 97 % Intake/Output Summary (Last 24 hours) at 10/07/18 0861 Last data filed at 10/07/18 0535 Gross per 24 hour Intake 710 ml Output 4400 ml Net -3690 ml Exam: Alert, oriented x3. Speech clear, fluent. Thoracic incision: flat, dry, no erythema. Nylons present. Sensation: Decrease LT sensation to LLE>RLE. Motor: HF KF KE APF ADF Left 5 5 5 5 5 Right 4 5 5 5 5 Current Medications: acetaminophen (TYLENOL) tablet 325-650 mg, 325-650 mg, oral, Q6H PRN baclofen (LIORESAL) tablet 10 mg, 10 mg, oral, HS bisacodyl (DULCOLAX) suppository 10 mg, 10 mg, rectal, DAILY PRN dexamethasone (DECADRON) injection 4 mg, 4 mg, intravenous, Q12H diphenhydrAMINE (BENADRYL) capsule 25 mg, 25 mg, oral, Q6H PRN DULoxetine (CYMBALTA) capsule 120 mg, 120 mg, oral, HS enoxaparin (LOVENOX) injection 40 mg, 40 mg, subcutaneous, QPM gabapentin (NEURONTIN) capsule 600 mg, 600 mg, oral, BID HYDROmorphone (DILAUDID) injection 0.2-0.5 mg, 0.2-0.5 mg, intravenous, Q2H PRN HYDROmorphone (DILAUDID) tablet 2-6 mg, 2-6 mg, oral, Q3H PRN NaCl 0.9%-KCl 20 mEq/L IV infusion, , intravenous, CONTINUOUS omeprazole (PRILOSEC) capsule 20 mg, 20 mg, oral, BEFORE BREAKFAST ondansetron ODT (ZOFRAN ODT) tablet 4-8 mg, 4-8 mg, oral, Q8H PRN polyethylene glycol (MIRALAX) packet 34 g, 34 g, oral, TID PRN senna-docusate (SENOKOT S) 8.6-50 mg 1 tablet, 1 tablet, oral, BID tiZANidine (ZANAFLEX) tablet 4 mg, 4 mg, oral, TID PRN traZODone (DESYREL) dose 75 mg, 75 mg, oral, HS Impression: 27YOF with low grade glioneuronal thoracic cord tumor s/p multiple resections on 05/13/15, , 03/22/2016, 01/13/17 and 07/08/18. Now with worsening RLE weakness and numbness and BLE L>R muscle fasciculations. Now s/p re-do midline thoracic approach through prior T7-T9 lonnie ectomy corridor for resection of intradural spinal cord tumor on 10/03/18. Improvement in RLE strength post-op. Wound intact. Plan: Neuro: Post-op improved RLE strength. Currently on Dex 4mg q12h, will discuss taper plan wi staff. Pain control with APAP, dilaudid 2-6mg q3h prn, IV prn breakthrough - will work to limit/di scontinue this. Tizanidine prn muscle spasms. Cont home meds: Cymbalta, gabapentin. Wound: Routine wound care. Okay to shower/wash incision. No creams or ointments. Leave open to air. Will remove nylons ~ 3 weeks post-op. CV: HD stable. Pulm: IS, cough/deep breath GI/diet: Regular diet. +GI ppx. +Anti-emetics. : Will remove daniels today and monitor for urinary retention. Musculoskeletal/skin: Routine decubitus ulcer prevention. Appreciate PT/OT involvement with recs for IPR. ID/Heme: Afebrile. DVT ppx: SCDs while in bed, on ppx lovenox. Dispo: To [facility] once accepted. RAHEEM DOSS PA-C [facility] [address] [place] [address] Daniel Arechiga MD - 10/06/2018 11:06 AM PDT NEUROSURGERY PROGRESS NOTE 10/06/2018 Attending Physician: Rajinder Luis MD Hospital Day #: 5 SUBJECTIVE/INTERVAL EVENTS: No acute events overnight Exam stable OBJECTIVE: Last 24 hour min/max Temp: 37 C (98.6 F) Temp Min: 36.5 C (97.7 F) Max: 37 C (98.6 F) Pulse: 51 Pulse Min: 48 Max: 71 Resp: 16 Resp Min: 12 Max: 16 BP: 107/62 BP Min: 97/51 Max: 114/63 SpO2: 97 % SpO2 Min: 94 % Max: 99 % Body mass index is 30.38 kg/m. I/O/Drains Current Shift I/O/Drains Last 3 Completed Shifts 10/06 700 - 10/06 1500 In: 680 [P.O.:680] Out: 1300 [Urine:1300] 10/05 700 - 10/06 0700 In: 320 [P.O.:300; I.V.:20] Out: 3090 [Urine:3090] No Data Recorded No Data Recorded Labs: Complete Blood Count/Coags Recent Labs 07/09/18 0330 07/10/18 0601 10/01/18 1312 WBC 17.51* 15.20* 9.57 HB 13.5 12.9 12.5 HCT 41.3 39.3 38.8 PLT 336 325 282 Invalid input(s): INR CSF Results No results for input(s): WBCCSF, RBCCSF, GLUCOSECSF, PROTEINCSF in the last 8640 hours. Chemistry Recent Labs 07/08/18 1346 07/09/18 0330 07/10/18 0601 07/11/18 0721 10/01/18 1312 10/03/18 1913 NA 139 137 -- 138 -- 137 138 -- K 4.3 4.0 -- 4.0 -- 3.7 3.6 -- CL 106 104 -- 101 -- 102 108 -- BICARB 27 30 -- 32 -- 31 25 -- BUN 10 8 -- 9 -- 12 8 -- CR 0.55* 0.58* -- 0.52* -- 0.45* 0.75 -- GLU 131* 140* < > 124* < > 128* 83 129* CA 9.3 9.1 -- 9.0 -- 8.8 8.8 -- MG 1.8 1.8 -- 2.0 -- -- -- -- PO4 3.8 3.7 -- 3.6 -- 2.8 -- -- < > = values in this interval not displayed. Culture Results CULTURE RESULT (no units) Date Value 11/05/2017 Patient:QIANA WORRELL Routine Cultures PROCEDURE: Strep Screen Culture [[id number]: 11/05/2017 16:4 4 PDT P1] SOURCE: Throat STARTED: 11/05/2017 20:3 9 PDT FREE TEXT SOURCE: BODY SITE: FINAL REPORTS Final Report [] Verified Date/Time: 11/07/2017 11:07 PDT No beta Strep isolated. Order Comments O1: Strep Screen Culture (CULTURE THROAT STREP SCREEN - [facility] - Ordering-Phys: PRINCESS GRAVES) Location: [facility] Performing Locations P1: This test was performed at: [facility] Lab Lab Results Component Value Date APTT 35.0 07/08/2018 FIBRINOGEN 605 (H) 07/08/2018 No results found for: RBCCSF, WBCCSF, PROTEINCSF, GLUCOSECSF, CSFAPP NEUROLOGICAL EXAM: Awake, alert, oriented to self, time, place, situation Following commands briskly Speech fluent PERRL EOMI Face symmetric Shoulder shrug equal bilaterally Strength: No pronator drift RUE: 5/5 D/B/T/HG LUE: 5/5 D/B/T/HG RLE: 2/5 HF 4/5 KE 5/5 DF/PF LLE: 5/5 HF/KE/DF/PF Decreased sensation to LT below ~T8 Incision clean/dry/intact without erythema, swelling, or drainage ASSESSMENT/PLAN: Qiana Worrell is a 27 y.o. female HD#5 with low grade glioneuronal thoracic cord tumo r s/p multiple resections on 05/13/15, 09/09/15, 03/22/2016, 01/13/17, last one on 07/08/2018 when she underwent redo T8 laminectomy, T9 laminectomy for resection of intramedullary tumor. Sh armando presented to ED 10/01 after worsening of RLE weakness since day prior, and BLE L>R muscle f asciculations. Fasciculations better this am with dex. S/P redo posterior midline thoracic a pproach through a prior T7 through T9 laminectomy corridor for resection of intradural spina l cord tumor and microdissection with Dr. Luis on 10/03/18. - Remove Daniels today - Encourage ambulation, PT - Neuro checks/pain control - Lovenox ppx Dispo: anticipate discharge early this week once pt ambulating, voiding. Likely IPR Please contact the [facility]surgery [facility] on-call pager [phone] with questions. Daniel Barahona M.D. Neurosurgery PGY-1 Elif Schwartz PA - 10/05/2018 11:02 AM PDT NEUROSURGERY INPATIENT PROGRESS NOTE Hospital Day:4 Author; Elif Mcclain PA-C Attending Physician: Rajinder Luis MD Interval Hx: - reports pain is better controlled today, slept adequately - reports slight improvement in RLE strength, however since she has not yet been OOB she is unsure if/how much improvement. Continuing to endorse diminished sensation to mid-trunk and into legs though with some improvement post-op 24 Hour Vital Min/Max: Systolic (24hrs), Av , Min:98 , Max:108 Diastolic (24hrs), Av, Min:47, Max:64 Pulse Min: 50 Max: 71 Temp Min: 36.5 C (97.7 F) Max: 36.9 C (98.4 F) Resp Min: 14 Max: 16 SpO2 Min: 95 % Max: 97 % Intake/Output Summary (Last 24 hours) at 10/05/18 1103 Last data filed at 10/05/18 09 Gross per 24 hour Intake 2362 ml Output 4350 ml Net -1988 ml MEDICATIONS Current Facility-Administered Medications Medication acetaminophen (TYLENOL) tablet 325-650 mg baclofen (LIORESAL) tablet 10 mg bisacodyl (DULCOLAX) suppository 10 mg dexamethasone (DECADRON) injection 4 mg diphenhydrAMINE (BENADRYL) capsule 25 mg DULoxetine (CYMBALTA) capsule 120 mg enoxaparin (LOVENOX) injection 40 mg gabapentin (NEURONTIN) capsule 600 mg HYDROmorphone (DILAUDID) injection 0.2-0.5 mg HYDROmorphone (DILAUDID) tablet 2-6 mg NaCl 0.9%-KCl 20 mEq/L IV infusion omeprazole (PRILOSEC) capsule 20 mg polyethylene glycol (MIRALAX) packet 34 g senna-docusate (SENOKOT S) 8.6-50 mg 1 tablet tiZANidine (ZANAFLEX) tablet 4 mg traZODone (DESYREL) dose 75 mg Physical Exam: Last Vitals: BP 108/62 (BP Location: Right upper arm, Patient Position: Lying on back) | P ulse 50 | Temp 36.5 C (97.7 F) | Resp 16 | SpO2 97% O2 Delivery Device: None (room a ir) (10/05/18 0749) General: 27 y.o. female in NAD Neuro: Alert and oriented x 3, gaze conjugate, EOMI, face symmetric Incision: clean, dry, intact, no erythema, mild edema, Nylons in place Drain: Daniels: in place Motor: HF KF KE APF ADF Left 5 5 5 5 5 Right 3 4 4 4+ 4+ Sensation: diminished sensation to BLE, light touch is otherwise grossly intact Psychiatric: Appropriate and cooperative Assessment/Plan: Qiana Worrell is a 27 y.o. 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 She presented to ED 10/01 after worsening of RLE weakness since day prior, and BLE L>R muscle fasciculations. Fasciculations better this am with dex. S/P redo posterior midlin e thoracic approach through a prior T7 through T9 laminectomy corridor for resection of intr adural spinal cord tumor and microdissection with Dr. Luis on 10/03/18. Neurological: off bedrest, improved fasciculations with IV dex, slight improvements in sens ation per patient Psych: cont home duloxetine Pain: improved pain control today, cont APAP, baclofen, gabapentin, hydromorphone PO/IV prn , tizanidine Incision: Wound care per protocol. Okay to shower POD#3 10/06/18. No creams or ointments. Cardiovascular: intermittent bradycardia, patient currently asymptomatic though not OOB yet , cont to monitor Pulm: IS, cough/deep breath GI: oral diet; anti-emetics prn; bowel regimen, GI ppx / Renal: Daniels in place, remove per protocol ID/Heme: afebrile Endocrine: No active issues. No need for ISS presently. Musculoskeletal / Skin: Routine decubitus ulcer prevention. Rehab: appreciate PT/OT recs DVT prophylaxis: SCDs while in bed, ppx lovenox beginning tonight Disposition: pending progress toward goals, clinical course, pain control, planning for IPR Elif Mcclain PA-C [facility] [address] [place] [address] Julio Rendon PA-C - 10/04/2018 8:39 AM PDT Neurosurgery Progress Note Hospital Day:3 Author; Julio Wahl PA-C Attending Physician: Rajinder Luis MD Interval Hx: S/p redo posterior midline thoracic approach through a prior T7 through T9 laminectomy josey idor for resection of intradural spinal cord tumor Reports poor pain control overnight, worst than last couple of surgeries but understands herrera rgery was more invasive and involved this time Reports leg shaking overnight, was transitioned to IV dex which she has found a more immedi ate response and sustained compared with PO dex. Has better sensation in left lower extremity and better mobility of right lower extremity h owever states this is typical for her immediately post op and then returns to baseline Bradycardic, low BP overnight- pt states has some difficulty with deep breathing d/t radiat ing pain from spine incision but denies SOB Last Vitals: BP 101/61 | Pulse 58 | Temp 36.5 C (97.7 F) | Resp 14 | SpO2 99% 24 Hour Vital Min/Max: Systolic (24hrs), Av , Min:87 , Max:124 Diastolic (24hrs), Av, Min:52, Max:86 Pulse Min: 40 Max: 60 Temp Min: 36.3 C (97.3 F) Max: 37 C (98.6 F) Resp Min: 9 Max: 18 SpO2 Min: 92 % Max: 100 % Intake/Output Summary (Last 24 hours) at 10/04/18 0848 Last data filed at 10/04/18 0825 Gross per 24 hour Intake 2741.25 ml Output 2690 ml Net 51.25 ml Exam: Alert, oriented x4- self, location, situation, president. Speech clear, fluent. Pupils equal, brisk. Gaze conjugate. EOMI. LT sensation intact. Face symmetric. Tongue midline. No drift. No dysmetria. Sensation: LT sensation intact in bilateral upper extremities, decreased/"odd" sensation in right lower extremity and mildly better than upon admission. 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 NYLON sutures in place. Mild edema superiorly. No fluctuance, erythema or active drainage. Bandage reapplied. Daniels cath in place. Labs: Lab Results Component Value Date WBC 9.57 10/01/2018 WBC 15.20 (H) 07/10/2018 WBC 17.51 (H) 07/09/2018 RBC 4.73 10/01/2018 RBC 4.59 07/10/2018 RBC 4.90 07/09/2018 HB 12.5 10/01/2018 HB 12.9 07/10/2018 HB 13.5 07/09/2018 HCT 38.8 10/01/2018 HCT 39.3 07/10/2018 HCT 41.3 07/09/2018 PLT 282 10/01/2018 PLT 325 07/10/2018 PLT 336 07/09/2018 LYMPHPERC 30.6 10/01/2018 LYMPHPERC 14.7 (L) 01/12/2017 LYMPHPERC 10.1 (L) 01/11/2017 MONOPERC 5.4 10/01/2018 MONOPERC 5.8 01/12/2017 MONOPERC 9.6 (H) 01/11/2017 BASOPERC 0.5 10/01/2018 BASOPERC 0.3 01/12/2017 BASOPERC 0.4 01/11/2017 EOSPERC 4.0 (H) 10/01/2018 EOSPERC 0.1 (L) 01/12/2017 EOSPERC 0.2 01/11/2017 Lab Results Component Value Date NA 138 10/01/2018 K 3.6 10/01/2018 CL 108 10/01/2018 BICARB 25 10/01/2018 BUN 8 10/01/2018 EGFRAFRICAN >60 10/01/2018 EGFRNONAFR >60 10/01/2018 CR 0.75 10/01/2018 GLU 129 10/03/2018 CA 8.8 10/01/2018 ANIONGAP 5 10/01/2018 ANIONALBCOR 7 07/11/2018 Current Medications: acetaminophen (TYLENOL) tablet 325-650 mg, 325-650 mg, oral, Q6H PRN baclofen (LIORESAL) tablet 10 mg, 10 mg, oral, HS bisacodyl (DULCOLAX) suppository 10 mg, 10 mg, rectal, DAILY PRN dexamethasone (DECADRON) injection 4 mg, 4 mg, intravenous, Q12H diphenhydrAMINE (BENADRYL) IV bag 12.5 mg, 12.5 mg, intravenous, ONCE DULoxetine (CYMBALTA) capsule 120 mg, 120 mg, oral, HS gabapentin (NEURONTIN) capsule 600 mg, 600 mg, oral, BID HYDROmorphone (DILAUDID) injection 0.2-0.5 mg, 0.2-0.5 mg, intravenous, Q2H PRN HYDROmorphone (DILAUDID) tablet 2-6 mg, 2-6 mg, oral, Q3H PRN NaCl 0.9%-KCl 20 mEq/L IV infusion, , intravenous, CONTINUOUS omeprazole (PRILOSEC) capsule 20 mg, 20 mg, oral, BEFORE BREAKFAST polyethylene glycol (MIRALAX) packet 34 g, 34 g, oral, TID PRN senna-docusate (SENOKOT S) 8.6-50 mg 1 tablet, 1 tablet, oral, BID tiZANidine (ZANAFLEX) tablet 4 mg, 4 mg, oral, TID PRN traZODone (DESYREL) dose 75 mg, 75 mg, oral, HS Imaging: MRI SPINE THOR / LUMB WWO CONTRAST Order: [id number] Performed: 10/01/2018 17:52 Status: Final result Visible to patient: No (Not Released ) Details Reading Physician Reading Date Result Priority Alexandro Leary MD 10/01/2018 Narrative MRI THORACIC AND LUMBAR SPINE WITH AND WITHOUT CONTRAST HISTORY: 27-year-old woman with history of thoracic spine glial neuronal tumor presents wit h RLE weakness, concern for recurrent thoracic spinal tumor COMPARISON: 07/08/2018 and prior examinations. TECHNIQUE: Multiplanar multi-sequence MRI of the thoracic and lumbar spine without and wi th gadolinium based intravenous contrast: FINDINGS: THORACIC: ALIGNMENT: Normal. MARROW: Unremarkable. SPINAL CORD: Again noted is a T2 hyperintense mass extending from the T4-T10 levels. There is evidence of cystic change at the T6/7 and T9/10 levels which may be postsurgical in etiol ogy. The T2 hyperintense component of the mass has thickened throughout most prominent at th e T6 level along the right lateral margin measuring approximately 3.6 mm (image 47 series 7; previously 2.2 mm image 58 series 13 on 07/08/2018) and T10 levels where the mass measures approximately 7.3 x 9.8 mm (image 28 series 7; previously 6.3 x 7.4 mm image 30 series 13). No evidence of contrast enhancement. PARASPINAL SOFT TISSUES: Unchanged sequela of prior T6-T10 thoracic laminectomy. LUMBAR: ALIGNMENT: Normal. MARROW: Unremarkable. CONUS: Unremarkable. PARASPINAL SOFT TISSUES: Unremarkable. IMPRESSION: Interval disease progression evidenced by increased T2 hyperintense nonenhancing thoracic c ord nodularity most prominent at the T6 and T10 levels. These findings were discussed with Dr. Chapin of the ED by Dr. Leary of Radiology on 10/01 at 1839 hours. I have personally reviewed the images and, if necessary, edited the report. I agree with th e report as now presented. Final signature: Alexandro Leary MD 10/01/2018 6:43 PM Preliminary: Alexandro Leary MD Dictation initiated: Alexandro Leary MD 10/01/2018 6:22 PM Specimen Collected: 10/01/18 18:22 Last Resulted: 10/01/18 18:43 Impression: Qiana Worrell is a 27 y.o. female with low grade glioneuronal thoracic co rd tumor s/p multiple resections on 05/13/15, 09/09/15, 03/22/2016, 01/13/17, last one on 07/08/20 18 when she underwent redo T8 laminectomy, T9 laminectomy for resection of intramedullary tu mor. She presented to ED 10/01 after worsening of RLE weakness since day prior, and BLE L>R m uscle fasciculations. Fasciculations better this am with dex. S/P redo posterior midline tho racic approach through a prior T7 through T9 laminectomy corridor for resection of intradura l spinal cord tumor and microdissection with Dr. Luis on 10/03/18. Plan: Neuro: Neuro improvement with increased strength in right lower extremity compared to admis ava and increased sensation in left lower extremity toes (but no sensation proximally). Imp roved fasciculations after transition back to IV dex 4mg q12h from PO. Pain: APAP, baclofen, gabapentin, hydromorphone PO/IV prn, tizanidine CV: Bradycardia, hypotensive, asymptomatic, giving 1L saline bolus, continue to monitor wilfrid sely. Pulm: IS, cough/deep breath GI/diet: reg diet, NPO after midnight for possible surgery 10/03, starting maintenance fluid s after midnight. bowel regimen prn, anti-emetics prn : voiding independently Musculoskeletal/skin: Routine decubitus ulcer prevention Endo: no active issues Psyche: cont home duloxetine DVT ppx: SCDs while in bed Activity: flat for 24 hr post op. Dispo: Secondary to clinical course Julio Wahl PA-C [facility] [address] [place] [address] Derick Dave MD,P hD - 10/03/2018 10:00 PM PDTNeurosurgery Post-Op Check Last Vitals: BP 107/62 (BP Location: Left upper arm) | Pulse 56 | Temp 36.4 C (97.5 F ) | Resp 14 | SpO2 98% Awake, alert, oriented to self, time, place, situation Following commands briskly PERRL EOMI Face symmetric Tongue midline Motor: No pronator drift Upper Ext Delt Bi Tri WF WE L 5 5 5 5 5 R 5 5 5 5 5 Lower Ext Hfl Kfl Kex APF ADF L 5 5 5 5 5 R High tone; difficult to assess motor group function; PF/DF 4/5 Decreased sensation to light tough in bilateral lower extremities. Neurologically Stable; continue care DERICK REYES MD,PhD Resident Neurological Surgery Pgr. [id number] dams, Raheem Nieves PA-C - 10/03/2018 8:21 AM PDT Neurosurgery Progress Note Hospital Day:2 Author; RAHEEM DOSS PA-C Attending Physician: Rajinder Luis MD Interval Hx: -Patient reports some intermittent leg trembling, overall better than before steroids. Cont inued baseline LLE LT numbness, has new (as of a few days ago) RLE decreased LT sensation. Last Vitals: BP 114/78 (BP Location: Right upper arm, Patient Position: Lying on back) | P ulse 68 | Temp 36.5 C (97.7 F) | Resp 16 | SpO2 97% O2 Delivery Device: None (room a ir) (10/03/18 0751) 24 Hour Vital Min/Max: Systolic (24hrs), Av , Min:107 , Max:123 Diastolic (24hrs), Av, Min:60, Max:78Puls e Min: 59 Max: 89 Temp Min: 36.5 C (97.7 F) Max: 37.4 C (99.3 F) Resp Min: 16 Max: 16 SpO2 Min: 97 % Max: 99 % Intake/Output Summary (Last 24 hours) at 10/03/18 0821 Last data filed at 10/03/18 0400 Gross per 24 hour Intake 520 ml Output 650 ml Net -130 ml Exam: Alert, oriented x3. Speech clear, fluent. Gaze conjugate. Face symmetric. Left anterior thigh trembling that is intermittent throughout exam while patient is at rest . Sensation: Decreased LT sensation to LLT (baseline), can feel some deep pressure. New decre ased LT sensation to RLE, deep pressure sensation is intact. Motor: HF KF KE APF ADF Left 5 5 5 5 5 Right 4 5 5 5 1 Labs: CBC with diff last 72 hours (or 3 results) Recent Labs 10/01/18 1312 WBC 9.57 HB 12.5 HCT 38.8 PLT 282 NEUTROPERC 59.2 LYMPHPERC 30.6 MONOPERC 5.4 BASOPERC 0.5 EOSPERC 4.0* Chemistries: Last 72 Hours (or 3 results): Recent Labs 10/01/18 1312 NA 138 K 3.6 CL 108 BICARB 25 BUN 8 EGFRAFRICAN >60 CR 0.75 GLU 83 CA 8.8 Current Medications: acetaminophen (TYLENOL) tablet 325-650 mg, 325-650 mg, oral, Q6H PRN baclofen (LIORESAL) tablet 10 mg, 10 mg, oral, HS bisacodyl (DULCOLAX) suppository 10 mg, 10 mg, rectal, DAILY PRN dexamethasone (DECADRON) tablet 4 mg, 4 mg, oral, BID DULoxetine (CYMBALTA) capsule 120 mg, 120 mg, oral, HS gabapentin (NEURONTIN) capsule 600 mg, 600 mg, oral, BID HYDROmorphone (DILAUDID) injection 0.2 mg, 0.2 mg, intravenous, Q6H PRN HYDROmorphone (DILAUDID) tablet 2 mg, 2 mg, oral, Q6H PRN NaCl 0.9%-KCl 20 mEq/L IV infusion, , intravenous, CONTINUOUS omeprazole (PRILOSEC) capsule 20 mg, 20 mg, oral, BEFORE BREAKFAST polyethylene glycol (MIRALAX) packet 34 g, 34 g, oral, TID PRN senna-docusate (SENOKOT S) 8.6-50 mg 1 tablet, 1 tablet, oral, BID traZODone (DESYREL) dose 75 mg, 75 mg, oral, HS Impression: 27YOF with low grade glioneuronal thoracic cord tumor s/p multiple resections on 05/13/15, , 03/22/2016, 01/13/17 and 07/08/18. Now with worsening RLE weakness and numbness and BLE L>R muscle fasciculations. Plan: Neuro: Worsened RLE weakness/numbness. Cont Dex 4mg BID for now. To OR today. Pain control with APAP, dilaudid. Cont home gabapentin and cymbalta. Trazodone for insomnia . CV: HD stable. Pulm: IS, cough/deep breath GI/diet: NPO. On MIVF. +GI ppx. Bowel regimen prn. : Voiding independently. Musculoskeletal/skin: Routine decubitus ulcer prevention. Activity ad candido. ID/Heme: Afebrile. DVT ppx: SCDs while in bed. Hold all anticoagulation. Dispo: To OR today. RAHEEM DOSS PA-C [facility] [address] [place] [address] Rajinder Antony MD - 10/02/2018 7:51 PM PDTDiscussion held with patient and family and PA bedside. 1. MRI with right sided hypointensity with fluid cyst surround 2. Plan for repeat surgery at the lower thoracic region for resection and decomopression o f tumor and cord displacement. 3. Potential loss of right lower extremity function. 4. For OR tomorrow. Chris Low MD - 10/02/2018 3:23 PM PDTNeurosurgery Preoperative Note Planned procedure: Redo thoracic lamis, tumor rsxn Date of procedure: 10/03/2018 Booked? Yes Consented? Yes - consented for serial procedures in Jun, 2018 Marked? Yes NPO time: 0015 10/03/2018 Labs/Studies Hct: 38.8 | Plt: 282 | INR: 0.99 Type and Screen obtained/date? Yes - 10/02/18 Images pushed? No Medications Received ACEI/ARB day of surgery? No Received lovenox day prior to surgery No Received anti-plt within 7 days of surgery? No Received anti-coag within 7 days of surgery? No Chris Cano MD Neurosurgery PGY2 [id number] FoJulio lobo PA-C - 10/02/2018 8:22 AM PDT Neurosurgery Progress Note Hospital Day:1 Author; Julio Wahl PA-C Attending Physician: Rajinder Luis MD Interval Hx: States LE shaking resolved ~20 min after dex started last night Reports stable LE weakness and "heaviness" Stated that valium and morphine did not help shaking Denies bowel/bladder incontinence Eager to speak with Dr. Luis regarding imaging and plan. Last Vitals: BP 120/64 (BP Location: Left upper arm, Patient Position: Lying on back) | Pu lse 71 | Temp 36.6 C (97.9 F) | Resp 16 | SpO2 98% O2 Delivery Device: None (room ai r) (10/02/18 0736) 24 Hour Vital Min/Max: Systolic (24hrs), Av , Min:101 , Max:130 Diastolic (24hrs), Av, Min:58, Max:75Puls e Min: 58 Max: 93 Temp Min: 36.6 C (97.9 F) Max: 37.1 C (98.7 F) Resp Min: 14 Max: 16 SpO2 Min: 97 % Max: 100 % Intake/Output Summary (Last 24 hours) at 10/02/18 0822 Last data filed at 10/01/18 2359 Gross per 24 hour Intake 10 ml Output 300 ml Net -290 ml Exam: Alert, oriented x3- self, location, situation. Speech clear, fluent. Pupils equal, brisk. Gaze conjugate. EOMI. LT sensation intact. Face symmetric. Tongue midline. No drift. No dysmetria. Sensation: LT sensation intact in bilateral upper extremities, decreased/odd sensation in r ight lower extremity. 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 No fluctuance, edema, erythema or active drainage Labs: Lab Results Component Value Date WBC 9.57 10/01/2018 WBC 15.20 (H) 07/10/2018 WBC 17.51 (H) 07/09/2018 RBC 4.73 10/01/2018 RBC 4.59 07/10/2018 RBC 4.90 07/09/2018 HB 12.5 10/01/2018 HB 12.9 07/10/2018 HB 13.5 07/09/2018 HCT 38.8 10/01/2018 HCT 39.3 07/10/2018 HCT 41.3 07/09/2018 PLT 282 10/01/2018 PLT 325 07/10/2018 PLT 336 07/09/2018 LYMPHPERC 30.6 10/01/2018 LYMPHPERC 14.7 (L) 01/12/2017 LYMPHPERC 10.1 (L) 01/11/2017 MONOPERC 5.4 10/01/2018 MONOPERC 5.8 01/12/2017 MONOPERC 9.6 (H) 01/11/2017 BASOPERC 0.5 10/01/2018 BASOPERC 0.3 01/12/2017 BASOPERC 0.4 01/11/2017 EOSPERC 4.0 (H) 10/01/2018 EOSPERC 0.1 (L) 01/12/2017 EOSPERC 0.2 01/11/2017 Lab Results Component Value Date NA 138 10/01/2018 K 3.6 10/01/2018 CL 108 10/01/2018 BICARB 25 10/01/2018 BUN 8 10/01/2018 EGFRAFRICAN >60 10/01/2018 EGFRNONAFR >60 10/01/2018 CR 0.75 10/01/2018 GLU 83 10/01/2018 CA 8.8 10/01/2018 ANIONGAP 5 10/01/2018 ANIONALBCOR 7 07/11/2018 Current Medications: acetaminophen (TYLENOL) tablet 325-650 mg, 325-650 mg, oral, Q6H PRN baclofen (LIORESAL) tablet 10 mg, 10 mg, oral, HS bisacodyl (DULCOLAX) suppository 10 mg, 10 mg, rectal, DAILY PRN dexamethasone (DECADRON) injection 2 mg, 2 mg, intravenous, Q12H DULoxetine (CYMBALTA) capsule 120 mg, 120 mg, oral, HS gabapentin (NEURONTIN) capsule 600 mg, 600 mg, oral, HS oxyCODONE (immediate release) (ROXICODONE) tablet 5-10 mg, 5-10 mg, oral, Q4H PRN polyethylene glycol (MIRALAX) packet 34 g, 34 g, oral, TID PRN senna-docusate (SENOKOT S) 8.6-50 mg 1 tablet, 1 tablet, oral, BID traZODone (DESYREL) dose 75 mg, 75 mg, oral, HS Imaging: MRI SPINE THOR / LUMB WWO CONTRAST Order: [id number] Performed: 10/01/2018 17:52 Status: Final result Visible to patient: No (Not Released ) Details Reading Physician Reading Date Result Priority Alexandro Leary MD 10/01/2018 Narrative MRI THORACIC AND LUMBAR SPINE WITH AND WITHOUT CONTRAST HISTORY: 27-year-old woman with history of thoracic spine glial neuronal tumor presents wit h RLE weakness, concern for recurrent thoracic spinal tumor COMPARISON: 07/08/2018 and prior examinations. TECHNIQUE: Multiplanar multi-sequence MRI of the thoracic and lumbar spine without and wi th gadolinium based intravenous contrast: FINDINGS: THORACIC: ALIGNMENT: Normal. MARROW: Unremarkable. SPINAL CORD: Again noted is a T2 hyperintense mass extending from the T4-T10 levels. There is evidence of cystic change at the T6/7 and T9/10 levels which may be postsurgical in etiol ogy. The T2 hyperintense component of the mass has thickened throughout most prominent at th e T6 level along the right lateral margin measuring approximately 3.6 mm (image 47 series 7; previously 2.2 mm image 58 series 13 on 07/08/2018) and T10 levels where the mass measures approximately 7.3 x 9.8 mm (image 28 series 7; previously 6.3 x 7.4 mm image 30 series 13). No evidence of contrast enhancement. PARASPINAL SOFT TISSUES: Unchanged sequela of prior T6-T10 thoracic laminectomy. LUMBAR: ALIGNMENT: Normal. MARROW: Unremarkable. CONUS: Unremarkable. PARASPINAL SOFT TISSUES: Unremarkable. IMPRESSION: Interval disease progression evidenced by increased T2 hyperintense nonenhancing thoracic c ord nodularity most prominent at the T6 and T10 levels. These findings were discussed with Dr. Chapin of the ED by Dr. Leary of Radiology on 10/01 at 1839 hours. I have personally reviewed the images and, if necessary, edited the report. I agree with e report as now presented. Final signature: Alexandro Leary MD 10/01/2018 6:43 PM Preliminary: Alexandro Leary MD Dictation initiated: Alexandro Leary MD 10/01/2018 6:22 PM Specimen Collected: 10/01/18 18:22 Last Resulted: 10/01/18 18:43 Impression: Qiana Worrell is a 27 y.o. female with low grade glioneuronal thoracic co rd tumor s/p multiple resections on 05/13/15, 09/09/15, 03/22/2016, 01/13/17, last one on 07/08/20 18 when she underwent redo T8 laminectomy, T9 laminectomy for resection of intramedullary tu mor. She presented to ED 10/01 after worsening of RLE weakness since day prior, and BLE L>R m uscle fasciculations. Fasciculations better this am with dex. Plan: Neuro: Neuro stable this am with improvement of fasciculations on dex, cont dex 2mg IV BID, plan for add on surgery tomorrow vs Sunday, timing pending, Dr. Luis to place case request . T/S ordered. BMP, CBC already done. Pain: APAP, baclofen, gabapentin, oxycodone CV: HD stable Pulm: IS, cough/deep breath GI/diet: reg diet, NPO after midnight for possible surgery 10/03, starting maintenance fluid s after midnight. bowel regimen prn, anti-emetics prn : voiding independently Musculoskeletal/skin: Routine decubitus ulcer prevention Endo: no active issues Psyche: cont home duloxetine DVT ppx: SCDs while in bed Dispo: Secondary to clinical course, pending surgery Julio Wahl PA-C [facility] [address] [place] [address] documented in this enc ounter Plan of Treatment Not on filedocumented as of this encounter Procedures + +--------+ + + + | Procedure Name | Priori | Date/Time | Associated Diagnosis | Comments | | | ty | | | | + +--------+ + + + | PROCEDURE NOTE | Routin | 10/04/2018 | | Results for this | | | e | 12:01 AM | | procedure are in the | | | | PDT | | results section. | + +--------+ + + + | OPERATION RECORD | | 10/03/2018 | | Results for this | | | | 8:24 PM | | procedure are in the | | | | PDT | | results section. | + +--------+ + + + | X-RAY SPINE THORACIC | Urgent | 10/03/2018 | | Results for this | | 1 VIEW | | 7:16 PM | | procedure are in the | | | | PDT | | results section. | + +--------+ + + + | X-RAY FLUOROSCOPY IN | Urgent | 10/03/2018 | | Results for this | | OR > 1 HOUR | | 7:16 PM | | procedure are in the | | | | PDT | | results section. | + +--------+ + + + | CAPILLARY BLOOD | Routin | 10/03/2018 | Weakness of right | Results for this | | GLUCOSE (NO CHG), | e | 7:13 PM | lower extremity | procedure are in the | | POC | | PDT | | results section. | + +--------+ + + + | SURGICAL PATHOLOGY | Routin | 10/03/2018 | | Results for this | | | e | 5:57 PM | | procedure are in the | | | | PDT | | results section. | + +--------+ + + + | THORACIC LAMINECTOMY | Urgent | 10/03/2018 | Weakness of right | | | | | 2:29 PM | lower extremity | | | | Surgic | PDT | Hyperreflexia | | | | al | | Thoracic spine tumor | | + +--------+ + + + | CARDIOLOGY | | 10/03/2018 | | Results for this | | | | 12:00 AM | | procedure are in the | | | | PDT | | results section. | + +--------+ + + + | INTRAOPERATIVE NEURO | Routin | 10/03/2018 | | Results for this | | MONITORING | e | | | procedure are in the | | | | | | results section. | + +--------+ + + + | ANTIBODY SCREEN | Routin | 10/02/2018 | | Results for this | | | e | 10:05 AM | | procedure are in the | | | | PDT | | results section. | + +--------+ + + + | TYPE AND SCREEN | Routin | 10/02/2018 | | Results for this | | | e | 10:05 AM | | procedure are in the | | | | PDT | | results section. | + +--------+ + + + | ABO & RH TYPE | Routin | 10/02/2018 | | Results for this | | | e | 10:05 AM | | procedure are in the | | | | PDT | | results section. | + +--------+ + + + | MRI SPINE THOR / | Urgent | 10/01/2018 | | Results for this | | LUMB WWO CONTRAST | | 5:52 PM | | procedure are in the | | | | PDT | | results section. | + +--------+ + + + | BLOOD BANK HOLD TUBE | Urgent | 10/01/2018 | | Results for this | | - DON | | 1:39 PM | | procedure are in the | | | | PDT | | results section. | | T PROCESS | | | | | + +--------+ + + + | CBC AND AUTO DIFF | Urgent | 10/01/2018 | | Results for this | | | | 1:12 PM | | procedure are in the | | | | PDT | | results section. | + +--------+ + + + | INR | Urgent | 10/01/2018 | | Results for this | | | | 1:12 PM | | procedure are in the | | | | PDT | | results section. | + +--------+ + + + | CBC, WITH | Urgent | 10/01/2018 | | Results for this | | DIFFERENTIAL | | 1:12 PM | | procedure are in the | | | | PDT | | results section. | + +--------+ + + + | BASIC METABOLIC SET | Urgent | 10/01/2018 | | Results for this | | (NA, K, CL, TCO2, | | 1:12 PM | | procedure are in the | | BUN, CR, GLU, CA) | | PDT | | results section. | + +--------+ + + + | CK, PLASMA | Urgent | 10/01/2018 | | Results for this | | | | 1:12 PM | | procedure are in the | | | | PDT | | results section. | + +--------+ + + + | ED INFORMATION | Routin | 10/01/2018 | | Results for this | | EXCHANGE | e | 12:03 PM | | procedure are in the | | | | PDT | | results section. | + +--------+ + + + documented in this encounter Results PROCEDURE NOTE (10/04/2018 12:01 AM PDT)OPERATION RECORD (10/03/2018 8:24 PM PDT) + + | Procedure Note | + + | Rajinder Luis MD - 10/03/2018 8:24 PM PDT Date of Service: 10/03/2018 Attending | | Surgeon: Rajinder Luis MD [employer] Consultant(s): Joby Thibodeaux MD. | | Preoperative Diagnosis: Progressive thoracic spinal cord tumor | | causing critical spinal cord compression.Postoperative Diagnosis: Progressive thoracic | | spinal cord tumor causing critical spinal cord compression.Procedures Performed: 1. | | Redo posterior midline thoracic approach through a prior T7 through T9 laminectomy | | corridor for resection of intradural spinal cord tumor.2. Microdissection.3. | | Neurophysiological monitoring with SSEPs and MEPs.4. Fluoroscopy with interpretation.5. | | Intraoperative use and interpretation of ultrasound.Anesthesia: General endotracheal | | anesthesia.Complications: None.Drains: None.Specimen: Intradural thoracic spinal cord | | tumor sent for permanent.Indications For Procedure: Please see Epic chart notes for | | details. Briefly, this is a 27-year-old female who is well known to our Neurosurgery | | Spine service. She has a low-grade glioneuronal thoracic spinal cord tumor, for which | | she has undergone multiple resections, on May 13, 2015, September 09, 2015, March 22, | | 2015, January 13, 2017, and most recently July 08, 2018. She was admitted through our | | emergency room due to complaints of worsening right lower extremity weakness. An MRI | | was obtained, which demonstrated concern for progression of her tumor, and most notably | | enlargement of cystic spaces, indicating incarcerated CSF flow, predominantly at the T7 | | and T10 areas. Due to the constellation of clinical and radiographic findings, she was | | indicated for redo surgical debulking for decompression of the spinal cord.Procedure In | | Detail: Prior to beginning the procedure, the patient was properly identified and | | consent form was obtained. The patient was transported to the operating room on a | | [facility]. General endotracheal anesthesia was induced by the Anesthesia team | | without complication. The neuromonitoring team placed the necessary electrodes for | | monitoring of somatosensory evoked potentials and motor evoked potentials. The patient | | was then placed in a prone position [facility]. All pressure points | | were carefully padded. Prior midline incision was identified. AP and lateral | | fluoroscopic x-rays were obtained to localize an incision which spanned from the level | | of the T7 pedicle down to the T10 pedicle. This incision was marked. The incisional | | area was then prepped and draped in the usual sterile fashion. A time-out was held, and | | the patient received preoperative antibiotics. Incision was sharply opened. Monopolar | | electrocautery was then used to dissect through the midline, where we encountered scar | | tissue from the prior surgery. We began by exposing spinous process at the T10 level. | | Having revealed a bony element and the depth of the thecal sac, we then used a | | combination of blunt dissection and further dissection with monopolar electrocautery to | | carefully define and dissect the scar to reveal the thecal sac. Retractors were placed | | to maintain patency of the operative field as we worked. Lateral to the spinal canal on | | both sides, we exposed the remainder of the lamina and the transverse processes at the | | T7, the T8, and the T9 level to the top of the T10 level, where the spinous process was | | preserved. Scar was further dissected off the thecal sac until the thecal sac was | | visualized. At this point, the operative microscope was brought into the field. Under | | high-power magnification, we opened the thecal sac sharply near the midline. The dural | | leaflets were retracted with 4-0 Nurolon sutures, which were temporarily tacked to the | | drapes with hemostatic clips. The dura was opened from the T7 to the T10 level. Upon | | doing so, we visualized the spinal cord, which was displaced to the left side of the | | spinal canal, and there was a moctezuma, abnormal-appearing column of tissue, which was the | | tumor occupying the right side of the spinal canal within the dura. We began by using | | Rhoton micro dissectors to carefully dissect and define the plane between the tumor and | | the normal spinal cord as best we could. At the T7 level, we encountered a cystic space | | which communicated with what appeared to be the central canal of the spinal cord, where | | we visualized normal-appearing, though somewhat hemosiderin-stained ependymal lining of | | the central canal. We considered this to be the cranial extent of the planned | | resection of tumor, and we there then worked more caudally, continuing to use Rhoton | | micro dissectors to create a dissection plane between the spinal cord and the | | rightward-located column of tumor tissue. The tumor was resected in a piecemeal | | fashion. Portions were soft and suckable. Other portions were resected with pituitary | | micro rongeurs, and some specimen was collected and sent as a permanent specimen to | | Pathology. We continued in this manner, proceeding cranially down caudally, continuing | | to dissect and define the tumor off the spinal cord, as well as continuing to open the | | central canal, and upon doing so, as the central canal was opened, we did appreciate | | intermittent gushes of clear cerebrospinal fluid, indicating that we were creating new | | spinal fluid flow pathways and disrupting the cystic loculations of CSF which had been | | expanding on her MRI. We continued to work caudally until we encountered the cystic CSF | | space at the T10 level, at which point we could see the inferior margin of the tumor | | tissue, where it definitively appeared to transition into normal-appearing spinal cord | | tissue, and we therefore considered that this would therefore be the caudal extent of | | our tumor resection. Upon zooming out with the microscope, we inspected the resection | | field more grossly and did appreciate that the spinal cord appeared to be much more | | pulsatile and that we had created a significant amount of space to the right of the | | spinal cord, and the spinal cord appeared to be excellently decompressed. We made one | | last inspection of the resection cavity and saw that around the entirety of the | | resection cavity we were transitioning from tumor tissue to more normal-appearing spinal | | cord tissue. Although there is certainly some tumor tissue left behind, we felt that | | we achieved maximum safe resection at this point and adequately decompressed the spinal | | cord and created free communication of cerebrospinal fluid through the central canal. | | At this point, attention was therefore turned to closure. The dural leaflets were | | reapproximated and closed using 4-0 Nurolon interrupted sutures. Some of these sutures | | were used as dural tack-ups, which were tacked up to the dorsal thoracic fascia. The | | wound was copiously irrigated and hemostasis was observed in the epidural space. | | Surgicel was placed in the epidural space, followed by DuraSeal Spine Exact. At this | | point, the operative microscope was removed. then, 0 Vicryl interrupted sutures were | | used to close the deep muscle layers. Then, 0 Vicryl interrupted sutures were also used | | to close the dorsal thoracic fascia, and some of these sutures were tied to the 4-0 | | Nurolon sutures to serve as dural tack-ups as mentioned above. Oliver's layer was then | | closed with 2-0 Vicryl inverted interrupted sutures. The dermal layer was closed with | | 3-0 Vicryl inverted interrupted sutures and the skin was closed with 2-0 nylon sutures | | using a vertical mattress interrupted stitch. The wound was then washed and dried. | | Drapes were taken down. A sterile dressing was applied to the wound. Patient was then | | transitioned from a prone back to a supine position, extubated by the Anesthesia team, | | and returned to the postanesthesia care unit for further recovery in stable condition. | | At the end of the case, all sponge, needle, and instrument counts were correct in 2 | | iterations. Of note, we made use of neuromonitoring throughout the case through dural | | closure, at which point neuromonitoring was discontinued. The neuromonitoring remained | | at preincisional baseline with the exception that there was some improvement in the | | somatosensory evoked potentials throughout the case. There was no reliable right lower | | extremity motor to follow throughout the case.MICA Robles, Rajinder Luis MD | | was scrubbed and actively participated performing the critical portions of the | | operation.Intraoperative ultrasound report:Indication: Intraoperative evaluation of | | adequacy of bony exposure and intradural pathology prior to durotomy.Organs or | | structures were viewed: spinal cord and tumor/ syrinxImpression: Compressed spinal cord | | with pusitilityImage was saved in the Chart under media tab. Personally viewed and | | interpreted in real time intraoperatively.Rajinder Luis MDTMS/MODLDD: 10/03/2018 | | 19:49:32DT: 10/03/2018 20:24:12Job #: [id number] | + + X-RAY SPINE THORACIC 1 VIEW (10/03/2018 7:16 PM PDT) + + | Specimen | + + | | + + + + + | Narrative | Performed At | + + + | - At the time of the study, no professional interpretation was | | | requested. - | | + + + X-RAY FLUOROSCOPY IN OR > 1 HOUR (10/03/2018 7:16 PM PDT) + + | Specimen | + + | | + + + + + | Narrative | Performed At | + + + | - At the time of the study, no professional interpretation was | | | requested. - | | + + + CAPILLARY BLOOD GLUCOSE (NO CHG), POC (10/03/2018 7:13 PM PDT) + +---------+ + + + | Component | Value | Ref Range | Performed | Pathologist | | | | | At | Signature | + +---------+ + + + | BLOOD | 129 (H) | 60 - 99 mg/dL | [...] [facility] | [address] | [place], [place] | | | [place], [place] [place] [address] | [address] | [address] | | | TESTS | | | | + + + + + SURGICAL PATHOLOGY (10/03/2018 5:57 PM PDT) + + + + + + | Component | Value | Ref Range | Performed | Pathologist | | | | | At | Signature | + + + + + + | Clinical | The patient is a 27 y.o. | | [facility] | | | History | female with a history | | DEPARTMENT | | | | of a multiply recurrent | | OF | | | | thoracic spinal cord | | PATHOLOGY | | | | tumor (most recent prior | | | | | | [id number], low grade | | | | | | glioneuronal tumor). | | | | + + + + + + | Final | A. Spine, Intradural | | [facility] | Electronically | | Pathologic | thoracic tumor, | | DEPARTMENT | signed by | | Diagnosis | biopsy: | | OF | Irina R | | | Recurrent/residual low | | PATHOLOGY | MD Marah,PhD | | | grade glioneuronal | | | on 10/07/2018 at | | | tumorB. Spine, | | | 4:50 PM | | | Intradural thoracic | | | | | | tumor, resection: | | | | | | Recurrent/residula low | | | | | | grade glioneuronal tumor | | | | | | (see comment)Comment: | | | | | | Some areas of these | | | | | | specimens show histology | | | | | | similar to that from | | | | | | this patient's most | | | | | | recent prior resection | | | | | | ([id number]), with | | | | | | small, oval to slightly | | | | | | spindled nuclei in a | | | | | | somewhat fibrillary | | | | | | background. The | | | | | | current material also | | | | | | shows a large amount of | | | | | | collagen intermixed with | | | | | | the tumor, confirmed by | | | | | | trichrome stains on | | | | | | both A1 and B1. The | | | | | | tumor is diffusely GFAP | | | | | | positive and ki67 | | | | | | labeling index is less | | | | | | than 1%. No high grade | | | | | | features are | | | | | | identified.Case seen | | | | | | by:Irina Crystal MD, | | | | | | PhD | | | | | | | | | | | | | | | | | | NeuropathologistPatholog | | | | | | y, [facility] & [facility] | | | [facility] | | | | | | electronic [...] + + + | Gross | Received is one specimen | | [facility] | | | Description | fresh in a container | | DEPARTMENT | | | | and one specimen in | | OF | | | | formalin labeled with | | PATHOLOGY | | | | the patient's name | | | | | | (initials RTE) and | | | | | | medical record number | | | | | | [id number].A. Spine, | | | | | | Intradural thoracic | | | | | | tumor: Received labeled | | | | | | "intradural thoracic | | | | | | tumor-1" are multiple | | | | | | pink red fragments of | | | | | | soft tissue and | | | | | | hemorrhagic material | | | | | | measuring 2.8 x 1.3 x | | | | | | 0.4 cm in loose | | | | | | aggregate. The specimen | | | | | | is filtered and | | | | | | entirely submitted 1 | | | | | | cassette, labeled A1.B. | | | | | | Spine, Intradural | | | | | | thoracic tumor: Received | | | | | | labeled "intradural | | | | | | thoracic tumor-2" are 2 | | | | | | moctezuma-pink segments of | | | | | | soft tissue measuring | | | | | | 0.5 x 0.4 x 0.2 cm and | | | | | | 0.3 x 0.2 x 0.1 cm. The | | | | | | specimen is entirely | | | | | | submitted 1 cassette, | | | | | | labeled B1.KLS | | | | + + + [...] Specimen | + + | Tissue - Spine | + + | Tissue - Spine | + + + + + + + | Performing | Address | City/State/Zipcode | Phone Number | | Organization | | | | + + + + + | [facility] | [address] | [place] [address] | | | PATHOLOGY | [address] | | | + + + + + INTRAOPERATIVE NEURO MONITORING (10/03/2018) + + + | Narrative | Performed At | + + + | Patient Name: Qiana Worrell Date of : 1990 | | | Date of Test: 10/03/2018 Place of | | | Service: IP Intra Op [id number] INTRAOPERATIVE NEURO | | | MONITORING IOM: 8 History: This is a 27 y.o. 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 | | | Patient was admitted for THORACIC REDO T8-T9 LAMINECTOMY AND | | | THORACIC REDO LAMINECTOMY AND RESECTION AND INTRADURAL SPINAL CORD | | | TUMOR. Conditions of Recording: Repetitive electrical | | | stimulation of the posterior tibial nerve was performed at the ankle, | | | with recordings over the popliteal fossa, cervical spine and scalp. | | | Repetitive electrical stimulation of the ulnar nerve was performed | | | at the wrist, with recordings over the brachial plexus, the cervical | | | spine and the scalp. Train of four response were repetitively | | | done to compare the ratio of the fourth to the first twitch when | | | stimulated at a rate of 2 Hz to assess the degree of neuromuscular | | | blockade causing paralysis or muscle weakness which would also result | | | in decreased EMG activation from stimulation. To obtain | | | transcranial electrical motor evoked potentials, trains of 6 pulses | | | with an individual pulse duration of 0.5 ms and an interstimulus | | | interval of 4 ms were delivered over the bilateral central regions of | | | the scalp. Description of recording: Preoperative waveforms were | | | obtained after general anesthesia for baseline. During surgery, SSEPs | | | were repetitively performed. Following posterior tibial nerve | | | stimulation, the lower extremity somatosensory evoked potential | | | waveforms were absent bilaterally at baseline. At around 16:13 the | | | left lower extremity cortical waveforms emerged with a reproducible | | | cortical waveform, N37 at latencies of about 36.9 msec. The cortical | | | waveforms remained present until the end of monitoring. Following | | | ulnar nerve stimulation, there was a cervical potential, N13, at | | | latencies of approximately 12.7 msec. The cortical waveform, N20, | | | was present at latencies of about 21.2 msec. Following | | | transcranial stimulation, there were reproducible EMG responses from | | | the upper and left lower extremitymuscles bilaterally. The right lower | | | extremity motor evoked responses were absent at baseline and remained | | | absent for the duration of the procedure. Intraoperative | | | interpretation was performed using real-time display of intraoperative | | | neurophysiologic recordings for 2 hours 25 minutes (15:27-17:52). | | | Dr. Jordan was continuously available for communication with the | | | recording technologist and the operative team during this time. | | | Impression: 1. Intra-operative neuromonitoring with absent left | | | lower extremity somatosensory evoked potentials, which emerged during | | | the procedure. 2. The right lower extremity somatosensory evoked | | | potentials and transcranial motor evoked potentials were absent at | | | baseline and remained absent for the duration of the procedure. 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 | | + + + CARDIOLOGY (10/03/2018 12:00 AM PDT) + + + | Narrative | Performed At | + + + | | | + + + ANTIBODY SCREEN (10/02/2018 10:05 AM PDT) + + + + + + [...] LABORATORY | [address] | [place] [address] | | | SERVICES, | [address] | | | | TRANSFUSION MEDICINE | | | | + + + + + ABO & RH TYPE (10/02/2018 10:05 AM PDT) + + + + + + [...] LABORATORY | [address] | [place] [address] | | | SERVICES, | [address] | | | | TRANSFUSION MEDICINE | | | | + + + + + MRI SPINE THOR / LUMB WWO CONTRAST (10/01/2018 5:52 PM PDT) + + | Specimen | + + | | + + + + + | Narrative | Performed At | + + + | MRI THORACIC AND LUMBAR SPINE WITH AND WITHOUT CONTRAST HISTORY: | [facility] | | 27-year-old woman with history of thoracic spine glial neuronal tumor | RADIOLOGY VOICE | | presents with RLE weakness, concern for recurrent thoracic spinal | RECOGNITION 2 | | tumor COMPARISON: 07/08/2018 and prior examinations. | | | TECHNIQUE: Multiplanar multi-sequence MRI of the thoracic and lumbar | | | spine without and with gadolinium based intravenous contrast: | | | FINDINGS: THORACIC: ALIGNMENT: Normal. MARROW: Unremarkable. | | | SPINAL CORD: Again noted is a T2 hyperintense mass extending from the | | | T4-T10 levels. There is evidence of cystic change at the T6/7 and | | | T9/10 levels which may be postsurgical in etiology. The T2 | | | hyperintense component of the mass has thickened throughout most | | | prominent at the T6 level along the right lateral margin measuring | | | approximately 3.6 mm (image 47 series 7; previously 2.2 mm image 58 | | | series 13 on 07/08/2018) and T10 levels where the mass measures | | | approximately 7.3 x 9.8 mm (image 28 series 7; previously 6.3 x 7.4 mm | | | image 30 series 13). No evidence of contrast enhancement. | | | PARASPINAL SOFT TISSUES: Unchanged sequela of prior T6-T10 thoracic | | | laminectomy. LUMBAR: ALIGNMENT: Normal. MARROW: Unremarkable. | | | CONUS: Unremarkable. PARASPINAL SOFT TISSUES: Unremarkable. | | | IMPRESSION: Interval disease progression evidenced by increased T2 | | | hyperintense nonenhancing thoracic cord nodularity most prominent at | | | the T6 and T10 levels. These findings were discussed with | | | Tavares of the ED by Dr. Leary of Radiology on 10/01/18 at 1839 hours. | | | I have personally reviewed the images and, if necessary, edited | | | the report. I agree with the report as now presented. Final | | | signature: Alexandro Leary MD 10/01/2018 6:43 PM Preliminary: | | | Alexandro Leary MD Dictation initiated: Alexandro Leary MD | | | 10/01/2018 6:22 PM | | + + + + + | Procedure Note | + + | Service Account, Radiant Res In Interface - 10/01/2018 6:46 PM PDT MRI THORACIC AND | | LUMBAR SPINE WITH AND WITHOUT CONTRAST HISTORY: 27-year-old woman with history of | | thoracic spine glial neuronal tumor presents with RLE weakness, concern for recurrent | | thoracic spinal tumor COMPARISON: 07/08/2018 and prior examinations. TECHNIQUE: | | Multiplanar multi-sequence MRI of the thoracic and lumbar spine without and with | | gadolinium based intravenous contrast: FINDINGS: THORACIC: ALIGNMENT: Normal.MARROW: | | Unremarkable.SPINAL CORD: Again noted is a T2 hyperintense mass extending from the | | T4-T10 levels. There is evidence of cystic change at the T6/7 and T9/10 levels which may | | be postsurgical in etiology. The T2 hyperintense component of the mass has thickened | | throughout most prominent at the T6 level along the right lateral margin measuring | | approximately 3.6 mm (image 47 series 7; previously 2.2 mm image 58 series 13 on | | 07/08/2018) and T10 levels where the mass measures approximately 7.3 x 9.8 mm (image 28 | | series 7; previously 6.3 x 7.4 mm image 30 series 13). No evidence of contrast | | enhancement. PARASPINAL SOFT TISSUES: Unchanged sequela of prior T6-T10 thoracic | | laminectomy. LUMBAR: ALIGNMENT: Normal.MARROW: Unremarkable.CONUS: Unremarkable. | | PARASPINAL SOFT TISSUES: Unremarkable. IMPRESSION: Interval disease progression | | evidenced by increased T2 hyperintense nonenhancing thoracic cord nodularity most | | prominent at the T6 and T10 levels. These findings were discussed with Dr. Chapin of the | | ED by Dr. Leary of Radiology on 10/01/18 at 1839 hours. I have personally reviewed the | | images and, if necessary, edited the report. I agree with the report as now presented. | | Final signature: Alexandro Leary MD 10/01/2018 6:43 PM Preliminary: Alexandro Leary | | Dictation initiated: Alexandro Leary MD 10/01/2018 6:22 PM | |ALIGNMENT: Normal. | |MARROW: Unremarkable. | |CONUS: Unremarkable. | | | |PARASPINAL SOFT TISSUES: Unremarkable. | | | |IMPRESSION: | | | |Interval disease progression evidenced by increased T2 hyperintense nonenhancing thoracic c ord nodularity most prominent at the T6 and T10 levels. | | | |These findings were discussed with Dr. Chapin of the ED by Dr. Leary of Radiology on 10/01 at 1839 hours. | | | |I have personally reviewed the images and, if necessary, edited the report. I agree with th e report as now presented. | | | |Final signature: Alexandro Leary MD 10/01/2018 6:43 PM | |Preliminary: Alexandro Leary MD | |Dictation initiated: Alexandro Leary MD 10/01/2018 6:22 PM | + + + +---------+ + + | Performing | Address | City/State/Zipcode | Phone Number | | Organization | | | | + +---------+ + + | [facility] | | | | | VOICE RECOGNITION 2 | | | | + +---------+ + + BLOOD BANK HOLD TUBE - DON T PROCESS (10/01/2018 1:39 PM PDT) + + + + + + | Component | Value | Ref Range | Performed | Pathologist | | | | | At | Signature | + + + + + + | SPECIMEN | Sample received with | | [facility] | | | COLLECTED, | adeq label/volume to | | LABORATORY | | | HELD | process | | SERVICES, | | | | [...] | + + + + + | [facility] | [address] | [place] [address] | | | SERVICES, | [address] | | | | TRANSFUSION MEDICINE | | | | + + + + + CBC AND AUTO DIFF (10/01/2018 1:12 PM PDT) + + + + + + | Component | Value | Ref Range | Performed | Pathologist | | | | | At | Signature | + + + + + + | WHITE CELL | 9.57 | 3.50 - 10.80 | [facility] | | | COUNT | | K/cu mm | LABORATORY | | | | | | SERVICES, | | | | | | CORE | | + + + + + + | RED CELL | 4.73 | 4.00 - 5.20 | [facility] | | | COUNT | | M/cu mm | LABORATORY | | | | | | SERVICES, | | | | | | CORE | | + + + + + + | HEMOGLOBIN | 12.5 | 12.0 - 16.0 | [facility] | | | | | g/dL | LABORATORY | | | | | | SERVICES, | | | | | | CORE | | + + + + + + | HEMATOCRIT | 38.8 | 36.0 - 46.0 % | [facility] | | | | | | LABORATORY | | | | | | SERVICES, | | | | | | CORE | | + + + + + + | MCV | 82.0 | 80.0 - 100.0 fL | [facility] | | | | | | LABORATORY | | | | | | SERVICES, | | | | | | CORE | | + + + + + + | MCHC | 32.2 | 32.0 - 36.0 | [facility] | [...] + + + + | PLATELET | 282 | 150 - 400 K/cu | [facility] [...] + + + + + + | NEUTROPHIL | 59.2 | 50.0 - 70.0 % | [facility] | | | % | | | LABORATORY | | | | | | SERVICES, | | | | | | CORE | | + + + + + + | LYMPHOCYTE | 30.6 | 18.0 - 42.0 % | [facility] | | | % | | | LABORATORY | | | | | | SERVICES, | | | | | | CORE | | + + + + + + | MONOCYTE % | 5.4 | 3.5 - 9.0 % | [facility] | | | | | | LABORATORY | | | | | | SERVICES, | | | | | | CORE | | + + + + + + | EOS % | 4.0 (H) | 1.0 - 3.0 % | [facility] | | | | | | LABORATORY | | | | | | SERVICES, | | | | | | CORE | | + + + + + + | BASO % | 0.5 | 0.0 - 2.0 % | [facility] | | | | | | LABORATORY | | | | | | SERVICES, | | | | | | CORE | | + + + + + + | IG% | 0.3Comment: Increased | 0.0 - 1.0 % | [facility] | | | | immature granulocytes | | LABORATORY | | | | (IG) define a left | | SERVICES, | | | | shift. Immature | | CORE | | | | granulocytes (IG) are an | | | | | | automated count of | | | | | | metamyelocytes, | | | | | | myelocytes and | | | | | | promyelocytes. Bands | | | | | | are not included in the | | | | | | IG count. Bands are | | | | | | included in the | | | | | | neutrophil count. | | | | + + + + + + | NEUTROPHIL | 5.66 | 1.80 - 7.70 | [facility] | | | # | | K/cu mm | LABORATORY | | | | | | SERVICES, | | | | | | CORE | | + + + + + + | LYMPHOCYTE | 2.93 | 1.00 - 4.80 | [facility] | | | # | | K/cu mm | LABORATORY | | | | | | SERVICES, | | | | | | CORE | | + + + + + + | MONOCYTE # | 0.52 | 0.10 - 0.90 | [facility] | | | | | K/cu mm | LABORATORY | | | | | | SERVICES, | | | | | | CORE | | + + + + + + | EOS # | 0.38 | 0.00 - 0.50 | [facility] | | | | | K/cu mm | LABORATORY | | | | | | SERVICES, | | | | | | CORE | | + + + + + + | BASO # | 0.05 | 0.00 - 0.10 | [facility] | | | | | K/cu mm | LABORATORY | | | | | | SERVICES, | | | | | | CORE | | + + + + + + | IG# | 0.03 | 0.00 - 0.10 | [facility] | | | | | K/cu mm | LABORATORY | | | | | | SERVICES, | | | | | | CORE | | + + + + + + + + | Specimen | + + | Blood - Blood | | (substance) | + + + + + | Narrative | Performed At | + + + | Increased immature granulocytes (IG) define a left shift. | [facility] | | Immature granulocytes (IG) are an automated count of metamyelocytes, | LABORATORY | | myelocytes and promyelocytes. Bands are not included in the IG count. | SERVICES, CORE | | Bands are included in the neutrophil count. | | + + + + + + + + | Performing | Address | City/State/Zipcode | Phone Number | | Organization | | | | + + + + + | [facility] | [address] | [place] [address] | | | SERVICES, CORE | [address] | | | + + + + + INR (10/01/2018 1:12 PM PDT) + +-------+ + + + | Component | Value | Ref Range | Performed | Pathologist | | | | | At | Signature | + +-------+ + + + | INR | 0.99 | 0.90 - 1.20 INR | [facility] [...] mech. valves (2.5 - 3.5) INR | HORACIO, NINO | + + + + + + + + | Performing | Address | City/State/Zipcode | Phone Number | | Organization | | | | + + + + + | [facility] | [address] | [place] [address] | | | NINO LEONARD | [address] | | | + + + + + BASIC METABOLIC SET (NA, K, CL, TCO2, BUN, CR, GLU, CA) (10/01/2018 1:12 PM PDT) + +---------+ + + + | Component | Value | Ref Range | Performed | Pathologist | | | | | At | Signature | + +---------+ + + + | GLUCOSE, | 83 | 70 - 99 mg/dL | [facility] [...] +---------+ + + + | CREATININE | 0.75 | 0.60 - 1.10 | [facility] | | | PLASMA | | mg/dL | LABORATORY | | | (LAB) | | | SERVICES, | | | | | | CORE | | + +---------+ + + + | EGFR | >60 | >60 mL/min | [facility] | | | - | | | LABORATORY | | | DANISH | | | SERVICES, | | | [...] +---------+ + + + | POTASSIUM, | 3.6 | 3.4 - 5.0 | [facility] | [...] +---------+ + + + | CALCIUM, | 8.8 [...] the MDRD equation recommended by the | [facility] | | National Kidney Disease Education Program. [...] | + + + + + | [facility] | [address] | [place] [address] | | | SERVICES, CORE | [address] | | | + + + + + CK, PLASMA (10/01/2018 1:12 PM PDT) + +-------+ + + + | Component | Value | Ref Range | Performed | Pathologist | | | | | At | Signature | + +-------+ + + + | CK | 92 | 38 - 234 U/L | [facility] | | | | | [...] LABORATORY | [address] | [place] [address] | | | SERVICES, CORE | [address] | | | + + + + + ED INFORMATION EXCHANGE (10/01/2018 12:03 PM PDT) + + | Specimen | + + | | + + + + + | Narrative | Performed At | + + + | [id number] [id number] Criteria Met Has | [facility] | | Guidelines PDMP Security and Safety No recent Security Events | MEDICAL | | currently on file ED Care Guidelines from [facility] and | [employer]OLOG[employer] | | [facility] Last Updated: 02/08/17 11:58 AM [facility] | | | Emergency DepartmentSuggested Care RecommendationsAuthor: Cecily Najera, | | | [facility]vv Update: | | | 02/08/2017Medical:- 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 Per chart, ptdeclines counseling at this | | | time.Clinical Context:-Patient has had multiple spine surgeries, has | | | not been able to work, receivesSSI and food stamps.Community | | | Supports-Primary care provider/clinic: Dr. Princess Chowdary, | | | [facility], - Neurosurgery: [facility], | | | Rajinder Luis MD and PHILIPPE Mckeon - [phone]-Insurance care | | | coordinator: Estelita, -Housing: [place] | | | mother Judit and 2 y/o daughter Joey Kaplan. | | | Prescription Drug Report (12 Mo.) Rx Details Fill Date Drug | | | Description Qty. Prescriber CS MED 2018-07-30 HYDROMORPHONE 2 MG | | | TABLET 90 MAGED BORJA MD 0 2018-07-30 DIAZEPAM 2 MG TABLET 30 | | | MAGED BORJA MD 0 Rx Summary Metric Count CS II-V Rx 0 | | | CS-II Rx 0 Quantity Dispensed 120 Unique Prescribers 1 Unique | | | Pharmacies 1 Benzos 0 Opioids 0 Long Acting Opioids 0 | | | E.D. Visit Count (12 mo.) Facility Visits [facility] and | | | [facility] 1 [facility] 1 Total 2 Note: | | | Visits indicate total known visits. Recent Emergency Department | | | Visit Summary Date Facility City State Type Diagnoses or Chief | | | Complaint Oct 01, 2018 [facility] [place] | | [place] Emergency 10,800. MRI Jul 06, 2018 [facility]. | | | [place] Emergency Neoplasm of unspecified behavior of bone, | | | soft tissue, and skin Anesthesia of skin Allergy status to | | | sulfonamides status Other care home (current) drug therapy | | | Brown-Sequard syndrome Recent Inpatient Visit Summary | | | Date Facility City State Type Diagnoses or Chief Complaint Jul 12, | | | 2019 [facility] [place] Inpatient Rehab Spinal | | | Tumor Malignant neoplasm of spinal cord Other specified | | | problems related to psychosocial circumstances Other reduced | | | mobility Other disturbances of skin sensation Other | | | symptoms and signs involving the musculoskeletal system Neoplasm | | | of unspecified behavior of endocrine glands and other parts of | | | nervous system Neurogenic bowel, not elsewhere classified | | | Dorsalgia, unspecified Neuromuscular dysfunction of bladder, | | | unspecified Jul 06, 2018 [facility] | | | [place] Neuro Surgery 10,151. 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, soft tissue, and | | | skin Care Providers Provider PRC Type Phone Fax Service | | | Dates MARBIN CHAPIN, RETAIL WIRELESS ASSOCIATE- Nurse Practitioner: Family Current | | | MADHAVI MONTANEZ LCSW Map Drafter: Clinical [phone] | | | [phone] Current CORNELIO VILLASENOR , [place] Motion Picture Commentator (881) | | | [phone] Current [email or web address] Portal This patient | | | has registered at the [facility] | | | Emergency Department For more information visit: | | | [email or web address] | | | [email or web address] andnbsp PLEASE NOTE: 1. Any care recommendations and | | | other clinical information are provided as guidelines or for | | | historical purposes only, and providers should exercise their own | | | clinical judgment when providing care. 2. You may only use this | | | information for purposes of treatment, payment or health care | | | operations activities, and subject to the limitations of applicable | | | Collective Policies. 3. You should consult directly with the | | | organization that provided a care guideline or other clinical | | | history with any questions about additional information or accuracy | | | or completeness of information provided. 2019 [employer] | | | [employer]. - [email or web address] | | + + + + + | Procedure Note | + + | Service Account, Rtf Results Inbound - 10/01/2018 12:04 PM PDT Formatting of this | | note might be different from the original.COLLECTIVE?NOTIFICATION?10/01/2018 | | 12:01?QIANA WORRELL? [facility] Has Guidelines PDMPSecurity and | | SafetyNo recent Security Events currently on fileED Care Guidelines from [facility] | | and [facility] Updated: 02/08/17 11:58 AM [facility] Emergency DepartmentSuggested | | Care RecommendationsAuthor: Cecily Najera, LCSWAuthor [employer]uz[employer] | | Update: 02/08/2017Medical:- Thoracic intramedullary spinal cord tumor (Recurrent/residual | | low gradeglioneuronal tumor) s/p multiple resections- lower extremity weakness- chronic | | pain- H/O urinary retentionMental Health/Substance Use:- hx of anxiety and depression - | | PCP prescribing cymbalta. Per chart, ptdeclines counseling at this time.Clinical | | Context:-Patient has had multiple spine surgeries, has not been able to work, | | receivesSSI and food stamps.Community Supports-Primary care provider/clinic: Dr. Sparks | | Karma Chowdary [facility], - Neurosurgery: Rajinder QURESHI | | MD Toby and PHILIPPE Mckeon - [phone]-Insurance clinical care manager: Estelita, | | [phone]-Housing: [place] with mother Judit and 2 y/o daughter Joey | | in[place].??Prescription Drug Report (12 Mo.)Rx DetailsFill Date Drug Description Qty. | | Prescriber CS MED 2018-07-30 HYDROMORPHONE 2 MG TABLET 90 MAGED BORJA MD 0 | | 2018-07-30 DIAZEPAM 2 MG TABLET 30 MAGED BORJA MD 0 Rx SummaryMetric Count CS II-V | | Rx 0 CS-II Rx 0 Quantity Dispensed 120 Unique Prescribers 1 Unique Pharmacies 1 Benzos | | 0 Opioids 0 Long Acting Opioids 0 E.D. Visit Count (12 mo.)Facility Visits [facility] | and [facility] 1 [facility] 1 Total 2 Note: Visits indicate total | | known visits. Recent Emergency Department Visit SummaryDate Facility [facility] State Type | | Diagnoses or Chief Complaint Oct 01, 2018 [facility] [place] | | Emergency 10,800. MRI Jul 06, 2018 [facility] 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 Inpatient Rehab | | Spinal Tumor Malignant neoplasm of spinal cord Other specified problems | | related to psychosocial circumstances Other reduced mobility Other disturbances of | | skin sensation Other symptoms and signs involving the musculoskeletal system | | Neoplasm of unspecified behavior of endocrine glands and other parts of nervous system | | Neurogenic bowel, not elsewhere classified Dorsalgia, unspecified Neuromuscular | | dysfunction of bladder, unspecified Jul 06, 2018 [facility] | | [place] Neuro Surgery 10,151. Thoracic Spine Tumor 18,400. Neoplasm of | | unspecified behavior of bone, soft tissue, and skin Care ProvidersProvider PRC Type | | Phone Fax Service Dates MARBIN CHAPIN, RETAIL WIRELESS ASSOCIATE-BC Nurse Practitioner: Family Current | | MADHAVI MONTANEZ LCSW Map Drafter: Clinical Current [facility], | | CORNELIO Bates [place] Motion Picture Commentator Current [email or web address] PortalThis | | patient has registered at the [facility] Emergency Department | | For more information visit: | | [email or web address] andnbsp | | PLEASE NOTE: 1. Any care recommendations and other clinical information are provided | | as guidelines or for historical purposes only, and providers should exercise their own | | clinical judgment when providing care. 2. You may only use this information for | | purposes of treatment, payment or health care operations activities, and subject to the | | limitations of applicable Collective Policies. 3. You should consult directly with | | the organization that provided a care guideline or other clinical history with any | | questions about additional information or accuracy or completeness of information | | provided.? 2019 [employer] - [email or web address] | |Oct 01, 2018 [facility] [place] Emergency | | 10,800. MRI | | | |Jul 06, 2018 [facility] [place] Emergency | | 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in | | Anesthesia of skin | | Allergy status to sulfonamides status | | Other extermination inspector (current) drug therapy | | Brown-Sequard syndrome | | | | | | | |Recent Inpatient Visit Summary | |Date Facility City State Type Diagnoses or Chief Complaint | |Jul 12, 2018 [facility] [place] Inpatient Rehab | | Spinal Tumor | | Malignant neoplasm of spinal cord | | Other specified problems related to psychosocial circumstances | | Other reduced mobility | | Other disturbances of skin sensation | | Other symptoms and signs involving the musculoskeletal system | | Neoplasm of unspecified behavior of endocrine glands and other parts of nervous system | | Neurogenic bowel, not elsewhere classified | | Dorsalgia, unspecified | | Neuromuscular dysfunction of bladder, unspecified | | | |Jul 06, 2018 [facility] [place] Neuro Surgery | | 10,151. Thoracic Spine Tumor | | 18,400. 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in | | | | | | | |Care Providers | |Provider PRC Type Phone Fax Service Dates | |MARBIN CHAPIN FNP-BC Nurse Practitioner: Family Current | |MADHAVI MONTANEZ LCSW Map Drafter: Clinical Current | |CORNELIO VILLASENOR , [place] Motion Picture Commentator Current | | | |[email or web address] Portal | |This patient has registered at the [facility] Emergency Departmen t | |For more information visit: [email or web address] | |andnbsp PLEASE NOTE: | | 1. Any care recommendations and other clinical information are provided as guidelines or for historical purposes only, and providers should exercise their own clinical judgment whe n providing care. | | 2. You may only use this information for purposes of treatment, payment or health care o perations activities, and subject to the limitations of applicable Collective Policies. | | 3. You should consult directly with the organization that provided a care guideline or o ther clinical history with any questions about additional information or accuracy or complet eness of information provided. | | | |? 2019 [employer]. - wwwMobile Security Software | + + + + + + + | Performing | Address | City/State/Zipcode | Phone Number | | Organization | | | | + + + + + | [facility] | [address], | [place], [place] | [phone] | | TECHNOLOGIES | [address] | [address] | | + + + + + documented in this encounter Visit Diagnoses + + | Diagnosis | + + | Weakness of right lower extremity - Primary | + + | Hyperreflexia Abnormal reflex | + + | 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, soft tissue, and skin | + + documented in this encounter Administered Medications + +--------+ +--------+------+------+ | Medication Order | MAR | Action | Dose | Rate | Site | | | Action | Date | | | | + +--------+ +--------+------+------+ | acetaminophen (TYLENOL) tablet | Given | 10/09/19 | 325 mg | | | | 325-650 mg 325-650 mg, oral, | | 19 4:39 | | | | | EVERY 6 HOURS NEEDED, Starting | | AM PDT | | | | | 10/01/18 at 2020, Until Tue | | | | | | | 10/08/18 at 1809, mild pain, | | | | | | | multimodal pain control, fever | | | | | | | greater than 38.5 degrees C | | | | | | + +--------+ +--------+------+------+ +-------+ +--------+---+---+ | Given | 10/08/19 | 650 mg | | | | | 19 5:41 | | | | | | PM PDT | | | | +-------+ +--------+---+---+ | Given | 10/08/19 | 650 mg | | | | | 19 10:59 | | | | | | AM PDT | | | | +-------+ +--------+---+---+ +---+---+ | | | +---+---+ + +-------+ +-------+---+---+ | baclofen (LIORESAL) tablet 10 | Given | 10/03/19 | 10 mg | | | | mg 10 mg, oral, AT BEDTIME, | | 19 9:33 | | | | | First dose on Sun10/01/18 at | | PM PDT | | | | | 2200, Until Discontinued | | | | | | + +-------+ +-------+---+---+ +-------+ +-------+---+---+ | Given | 10/02/19 | 10 mg | | | | | 19 8:38 | | | | | | PM PDT | | | | +-------+ +-------+---+---+ +---+---+ | | | +---+---+ + +-------+ +-------+---+---+ | baclofen (LIORESAL) tablet 10 | Given | 10/08/19 | 10 mg | | | | mg 10 mg, oral, AT BEDTIME, | | 19 9:39 | | | | | First dose (after last reorder) | | PM PDT | | | | | on Sun10/04/18 at 0000, Until | | | | | | | Discontinued | | | | | | + +-------+ +-------+---+---+ +-------+ +-------+---+---+ | Given | 10/07/19 | 10 mg | | | | | 19 10:46 | | | | | | PM PDT | | | | +-------+ +-------+---+---+ | Given | 10/06/19 | 10 mg | | | | | 19 10:36 | | | | | | PM PDT | | | | +-------+ +-------+---+---+ +---+---+ | | | +---+---+ + +-------+ +------+---+---+ | dexamethasone (DECADRON) | Given | 10/03/19 | 2 mg | | | | injection 2 mg 2 mg, | | 19 8:32 | | | | | intravenous, EVERY 12 HOURS, | | AM PDT | | | | | First dose on Sun10/01/18 at | | | | | | | 2030, Until Discontinued | | | | | | + +-------+ +------+---+---+ +-------+ +------+---+---+ | Given | 10/02/19 | 2 mg | | | | | 19 8:37 | | | | | | PM PDT | | | | +-------+ +------+---+---+ +---+---+ | | | +---+---+ + +-------+ +------+---+---+ | dexamethasone (DECADRON) | Given | 10/08/19 | 4 mg | | | | injection 4 mg 4 mg, | | 19 11:00 | | | | | intravenous, EVERY 12 HOURS, | | AM PDT | | | | | First dose on Sun10/03/18 at | | | | | | | 2300, Until Discontinued | | | | | | + +-------+ +------+---+---+ +-------+ +------+---+---+ | Given | 10/07/19 | 4 mg | | | | | 19 10:46 | | | | | | PM PDT | | | | +-------+ +------+---+---+ | Given | 10/07/19 | 4 mg | | | | | 19 11:16 | | | | | | AM PDT | | | | +-------+ +------+---+---+ +---+---+ | | | +---+---+ + +-------+ +------+---+---+ | dexamethasone (DECADRON) tablet | Given | 10/03/19 | 2 mg | | | | 2 mg 2 mg, oral, ONCE, 1 dose, | | 19 12:48 | | | | | 10/02/18 at 1215 | | PM PDT | | | | + +-------+ +------+---+---+ +---+---+ | | | +---+---+ + +-------+ +------+---+---+ | dexamethasone (DECADRON) tablet | Given | 10/09/19 | 2 mg | | | | 2 mg 2 mg, oral, TWICE DAILY, | | 19 9:13 | | | | | doses, First dose on 10/07/18 | | AM PDT | | | | | at 2100, Last dose on Sun10/09/18 | | | | | | | at 0900 | | | | | | + +-------+ +------+---+---+ +-------+ +------+---+---+ | Given | 10/08/19 | 2 mg | | | | | 19 9:38 | | | | | | PM PDT | | | | +-------+ +------+---+---+ + +---+ | | | + +---+ | dexamethasone (DECADRON) tablet | | | 2 mg 2 mg, oral, DAILY, 2 | | | doses, First dose on Sun10/10/18 | | | at 0900, Last dose on Sun10/11/18 | | | at 0900 | | + +---+ | | | + +---+ + +-------+ +------+---+---+ | dexamethasone (DECADRON) tablet | Given | 10/04/19 | 4 mg | | | | 4 mg 4 mg, oral, TWICE DAILY, | | 19 10:07 | | | | | First dose on Sun10/02/18 at | | AM PDT | | | | | 2100, Until Discontinued | | | | | | + +-------+ +------+---+---+ +-------+ +------+---+---+ | Given | 10/03/19 | 4 mg | | | | | 19 9:34 | | | | | | PM PDT | | | | +-------+ +------+---+---+ +---+---+ | | | +---+---+ + +-------+ +------+---+---+ | diazePAM (VALIUM) injection 5 | Given | 10/02/19 | 5 mg | | | | mg 5 mg, intravenous, ONCE, 1 | | 19 2:03 | | | | | dose, [facility] 10/01/18 at 1430 | | PM PDT | | | | + +-------+ +------+---+---+ +---+---+ | | | +---+---+ + +-------+ +------+---+---+ | diazePAM (VALIUM) injection 5 | Given | 10/02/19 | 5 mg | | | | mg 5 mg, intravenous, ONCE, 1 | | 19 3:33 | | | | | dose, 10/01/18 at 1545 | | PM PDT | | | | + +-------+ +------+---+---+ +---+---+ | | | +---+---+ + +-------+ +-------+---+---+ | diphenhydrAMINE (BENADRYL) | Given | 10/09/19 | 25 mg | | | | capsule 25 mg 25 mg, oral, EVERY | | 19 10:32 | | | | | 6 HOURS NEEDED, Starting Fri | | AM PDT | | | | | 10/04/18 at 1409, Until 10/08/18 | | | | | | | at 1810, itching | | | | | | + +-------+ +-------+---+---+ +-------+ +-------+---+---+ | Given | 10/07/19 | 25 mg | | | | | 19 5:32 | | | | | | PM PDT | | | | +-------+ +-------+---+---+ | Given | 10/07/19 | 25 mg | | | | | 19 11:28 | | | | | | AM PDT | | | | +-------+ +-------+---+---+ +---+---+ | | | +---+---+ + +-------+ +-------+---+---+ | diphenhydrAMINE (BENADRYL) | Given | 10/05/19 | 25 mg | | | | injection 25 mg 25 mg, | | 19 5:17 | | | | | intravenous, ONCE, 1 dose, Fri | | AM PDT | | | | | 10/04/18 at 0445 | | | | | | + +-------+ +-------+---+---+ +---+---+ | | | +---+---+ + +-------+ +--------+---+---+ | DULoxetine (CYMBALTA) capsule | Given | 10/03/19 | 120 mg | | | | 120 mg 120 mg, oral, AT BEDTIME, | | 19 9:33 | | | | | First dose on Sun10/01/18 at | | PM PDT | | | | | 2200, Until Discontinued | | | | | | + +-------+ +--------+---+---+ +-------+ +--------+---+---+ | Given | 10/02/19 | 120 mg | | | | | 19 8:38 | | | | | | PM PDT | | | | +-------+ +--------+---+---+ +---+---+ | | | +---+---+ + +-------+ +--------+---+---+ | DULoxetine (CYMBALTA) capsule | Given | 10/08/19 | 120 mg | | | | 120 mg 120 mg, oral, AT BEDTIME, | | 19 9:39 | | | | | First dose (after last reorder) | | PM PDT | | | | | on Sun10/04/18 at 0000, Until | | | | | | | Discontinued | | | | | | + +-------+ +--------+---+---+ +-------+ +--------+---+---+ | Given | 10/07/19 | 120 mg | | | | | 19 10:46 | | | | | | PM PDT | | | | +-------+ +--------+---+---+ | Given | 10/06/19 | 120 mg | | | | | 19 10:36 | | | | | | PM PDT | | | | +-------+ +--------+---+---+ +---+---+ | | | +---+---+ + +-------+ +-------+---+---------+ | enoxaparin (LOVENOX) injection | Given | 10/08/19 | 40 mg | | Abdomen | | 40 mg 40 mg, subcutaneous, EVERY | | 19 9:38 | | | | | EVENING, First dose on Sat | | PM PDT | | | | | 10/05/18 at 2100, Until | | | | | | | Discontinued | | | | | | + +-------+ +-------+---+---------+ +-------+ +-------+---+---------+ | Given | 10/07/19 | 40 mg | | Abdomen | | | 19 10:45 | | | | | | PM PDT | | | | +-------+ +-------+---+---------+ | Given | 10/06/19 | 40 mg | | Abdomen | | | 19 8:09 | | | | | | PM PDT | | | | +-------+ +-------+---+---------+ +---+---+ | | | +---+---+ + +-------+ +--------+---+---+ | fentaNYL (SUBLIMAZE) injection | Given | 10/04/19 | 50 mcg | | | | 50 mcg 50 mcg, intravenous, | | 19 8:05 | | | | | POSTPROCEDURE PRN, 4 doses, | | PM PDT | | | | | Starting Miriam 10/03/18 at 1812, | | | | | | | Until Miriam 10/03/18 at 2214, severe | | | | | | | pain while in Phase I Recovery | | | | | | + +-------+ +--------+---+---+ +-------+ +--------+---+---+ | Given | 10/04/19 | 50 mcg | | | | | 19 7:54 | | | | | | PM PDT | | | | +-------+ +--------+---+---+ +---+---+ | | | +---+---+ + +-------+ +--------+---+---+ | gabapentin (NEURONTIN) capsule | Given | 10/02/19 | 600 mg | | | | 600 mg 600 mg, oral, AT BEDTIME, | | 19 8:39 | | | | | First dose on Sun10/01/18 at | | PM PDT | | | | | 2200, Until Discontinued | | | | | | + +-------+ +--------+---+---+ +---+---+ | | | +---+---+ + +-------+ +--------+---+---+ | gabapentin (NEURONTIN) capsule | Given | 10/04/19 | 600 mg | | | | 600 mg 600 mg, oral, TWICE | | 19 10:07 | | | | | DAILY, First dose (after last | | AM PDT | | | | | modification) on Sun10/02/18 at | | | | | | | 2100, Until Discontinued | | | | | | + +-------+ +--------+---+---+ +-------+ +--------+---+---+ | Given | 10/03/19 | 600 mg | | | | | 19 9:33 | | | | | | PM PDT | | | | +-------+ +--------+---+---+ +---+---+ | | | +---+---+ + +-------+ +--------+---+---+ | gabapentin (NEURONTIN) capsule | Given | 10/09/19 | 600 mg | | | | 600 mg 600 mg, oral, TWICE | | 19 9:13 | | | | | DAILY, First dose (after last | | AM PDT | | | | | reorder) on Sun10/04/18 at 0015, | | | | | | | Until Discontinued | | | | | | + +-------+ +--------+---+---+ +-------+ +--------+---+---+ | Given | 10/08/19 | 600 mg | | | | | 19 9:39 | | | | | | PM PDT | | | | +-------+ +--------+---+---+ | Given | 10/08/19 | 600 mg | | | | | 19 8:39 | | | | | | AM PDT | | | | +-------+ +--------+---+---+ +---+---+ | | | +---+---+ + +---------+ +-------+---+---+ | gadoterate meglumine (DOTAREM) | IV Push | 10/02/19 | 14 mL | | | | 0.5 mmol/mL (376.9 mg/mL) | | 19 5:04 | | | | | injection 14 mL 14 mL, | | PM PDT | | | | | intravenous, ONCE, 1 dose, Tue | | | | | | | 10/01/18 at 1630 | | | | | | + +---------+ +-------+---+---+ +---+---+ | | | +---+---+ + +-------+ +--------+---+---+ | HYDROmorphone (DILAUDID) | Given | 10/04/19 | 0.2 mg | | | | injection 0.2 mg 0.2 mg, | | 19 9:38 | | | | | intravenous, EVERY 6 HOURS | | PM PDT | | | | | NEEDED, Starting 10/02/18 at | | | | | | | 1456, Until Sun10/04/18 at 0013, | | | | | | | breakthrough severe pain | | | | | | + +-------+ +--------+---+---+ +-------+ +--------+---+---+ | Given | 10/03/19 | 0.2 mg | | | | | 19 9:42 | | | | | | PM PDT | | | | +-------+ +--------+---+---+ | Given | 10/03/19 | 0.2 mg | | | | | 19 3:12 | | | | | | PM PDT | | | | +-------+ +--------+---+---+ +---+---+ | | | +---+---+ + +-------+ +--------+---+---+ | HYDROmorphone (DILAUDID) | Given | 10/08/19 | 0.2 mg | | | | injection 0.2 mg 0.2 mg, | | 19 11:00 | | | | | intravenous, EVERY 6 HOURS | | AM PDT | | | | | NEEDED, Starting Sun10/07/18 at | | | | | | | 0845, Until Sun10/07/18 at 1736, | | | | | | | breakthrough severe pain | | | | | | + +-------+ +--------+---+---+ +---+---+ | | | +---+---+ + +-------+ +--------+---+---+ | HYDROmorphone (DILAUDID) | Given | 10/04/19 | 0.5 mg | | | | injection 0.2-0.5 mg 0.2-0.5 mg, | | 19 7:43 | | | | | intravenous, POSTPROCEDURE PRN, | | PM PDT | | | | | Starting Miriam 10/03/18 at 1812, | | | | | | | Until Miriam 10/03/18 at 2214, | | | | | | | moderate pain while in Phase I | | | | | | | Recovery | | | | | | + +-------+ +--------+---+---+ +-------+ +--------+---+---+ | Given | 10/04/19 | 0.3 mg | | | | | 19 7:33 | | | | | | PM PDT | | | | +-------+ +--------+---+---+ | Given | 10/04/19 | 0.2 mg | | | | | 19 7:23 | | | | | | PM PDT | | | | +-------+ +--------+---+---+ +---+---+ | | | +---+---+ + +-------+ +--------+---+---+ | HYDROmorphone (DILAUDID) | Given | 10/08/19 | 0.5 mg | | | | injection 0.2-0.5 mg 0.2-0.5 mg, | | 19 3:35 | | | | | intravenous, EVERY 2 HOURS | | AM PDT | | | | | NEEDED, Starting 10/04/18 at | | | | | | | 0015, Until 10/07/18 at 0843, | | | | | | | breakthrough severe pain | | | | | | + +-------+ +--------+---+---+ +-------+ +--------+---+---+ | Given | 10/07/19 | 0.5 mg | | | | | 19 11:11 | | | | | | PM PDT | | | | +-------+ +--------+---+---+ | Given | 10/07/19 | 0.5 mg | | | | | 19 5:32 | | | | | | PM PDT | | | | +-------+ +--------+---+---+ +---+---+ | | | +---+---+ + +-------+ +------+---+---+ | HYDROmorphone (DILAUDID) tablet | Given | 10/04/19 | 2 mg | | | | 2 mg 2 mg, oral, EVERY 6 HOURS | | 19 10:53 | | | | | NEEDED, Starting 10/02/18 | | PM PDT | | | | | at 1457, Until 10/04/18 at | | | | | | | 0013, severe pain | | | | | | + +-------+ +------+---+---+ +-------+ +------+---+---+ | Given | 10/04/19 | 2 mg | | | | | 19 12:31 | | | | | | PM PDT | | | | +-------+ +------+---+---+ | Given | 10/04/19 | 2 mg | | | | | 19 5:58 | | | | | | AM PDT | | | | +-------+ +------+---+---+ +---+---+ | | | +---+---+ + +-------+ +------+---+---+ | HYDROmorphone (DILAUDID) tablet | Given | 10/09/19 | 6 mg | | | | 2-6 mg 2-6 mg, oral, EVERY 3 | | 19 11:31 | | | | | HOURS NEEDED, Starting Fri | | AM PDT | | | | | 10/04/18 at 0015, Until 10/08/18 | | | | | | | at 1810, severe pain | | | | | | + +-------+ +------+---+---+ +-------+ +------+---+---+ | Given | 10/09/19 | 6 mg | | | | | 19 7:44 | | | | | | AM PDT | | | | +-------+ +------+---+---+ | Given | 10/09/19 | 6 mg | | | | | 19 4:43 | | | | | | AM PDT | | | | +-------+ +------+---+---+ +---+---+ | | | +---+---+ + +-------+ +------+---+---+ | HYDROmorphone (DILAUDID) tablet | Given | 10/08/19 | 4 mg | | | | 4 mg 4 mg, oral, ONCE, 1 dose, | | 19 10:02 | | | | | 10/07/18 at 2200 | | PM PDT | | | | + +-------+ +------+---+---+ +---+---+ | | | +---+---+ + + + +---------+---+ + | lidocaine (LIDODERM) 5 % patch | Applied | 10/08/19 | 1 patch | | Right | | 1 patch 1 patch, transdermal, | Patch | 19 5:42 | | | Mid Back | | EVERY 24 HOURS, First dose on Mon | | PM PDT | | | | | 10/07/18 at 1630, Until | | | | | | | Discontinued | | | | | | + + + +---------+---+ + +---+---+ | | | +---+---+ + + + +---------+---+ + | lidocaine (LIDODERM) 5 % patch | Applied | 10/08/19 | 1 patch | | Left Mid | | 1 patch 1 patch, transdermal, | Patch | 19 5:42 | | | Back | | EVERY 24 HOURS, First dose on Mon | | PM PDT | | | | | 10/07/18 at 1630, Until | | | | | | | Discontinued | | | | | | + + + +---------+---+ + +---+---+ | | | +---+---+ + +-------+ +------+---+---+ | morphine injection 4 mg 4 mg, | Given | 10/02/19 | 4 mg | | | | intravenous, EVERY 30 MINUTES | | 19 4:43 | | | | | NEEDED, 3 doses, Starting Tue | | PM PDT | | | | | 10/01/18 at 1627, Until Tue | | | | | | | 10/01/18 at 2020, moderate pain, | | | | | | | severe pain | | | | | | + +-------+ +------+---+---+ + +---+ | | | + +---+ | morphine injection 1 dose, | | | Starting 10/01/18 at 1632, | | | Until 10/01/18 at 1643 | | + +---+ | | | + +---+ + + + +---+ +---+ | NaCl 0.9%-KCl 20 mEq/L IV | Restarte | 10/03/19 | | 75 mL/hr | | | infusion intravenous, | d | 19 12:45 | | | | | CONTINUOUS, Starting Sun10/02/18 | | PM PDT | | | | | at 1030, Until Sun10/02/18 at | | | | | | | 1340, at 75 mL/hr | | | | | | + + + +---+ +---+ +---------+ +---+ +---+ | New Bag | 10/03/19 | | 75 mL/hr | | | | 19 11:42 | | | | | | AM PDT | | | | +---------+ +---+ +---+ +---+---+ | | | +---+---+ + +---------+ +---+ +---+ | NaCl 0.9%-KCl 20 mEq/L IV | New Bag | 10/03/19 | | 75 mL/hr | | | infusion intravenous, | | 19 11:54 | | | | | CONTINUOUS, Starting [facility] 10/03/18 | | PM PDT | | | | | at 0015, Until Miriam 10/03/18 at | | | | | | | 2000, at 75 mL/hr | | | | | | + +---------+ +---+ +---+ +---+---+ | | | +---+---+ + + + +---+ +---+ | NaCl 0.9%-KCl 20 mEq/L IV | Rate/Dos | 10/07/19 | | 75 mL/hr | | | infusion intravenous, | e Verify | 19 11:16 | | | | | CONTINUOUS, Starting [facility] 10/03/18 | | AM PDT | | | | | at 2015, Until Sun10/07/18 at | | | | | | | 0843, at 75 mL/hr | | | | | | + + + +---+ +---+ + + +---+ +---+ | New Bag | 10/07/19 | | 75 mL/hr | | | | 19 1:06 | | | | | | AM PDT | | | | + + +---+ +---+ | Restarted | 10/07/19 | | 75 mL/hr | | | | 19 12:11 | | | | | | AM PDT | | | | + + +---+ +---+ +---+---+ | | | +---+---+ + +-------+ +-------+---+---+ | omeprazole (PRILOSEC) capsule | Given | 10/09/19 | 20 mg | | | | 20 mg 20 mg, oral, BEFORE | | 19 4:39 | | | | | BREAKFAST, First dose on Sun | | AM PDT | | | | | 10/03/18 at 0630, Until | | | | | | | Discontinued | | | | | | + +-------+ +-------+---+---+ +-------+ +-------+---+---+ | Given | 10/08/19 | 20 mg | | | | | 19 4:36 | | | | | | AM PDT | | | | +-------+ +-------+---+---+ | Given | 10/07/19 | 20 mg | | | | | 19 4:12 | | | | | | AM PDT | | | | +-------+ +-------+---+---+ +---+---+ | | | +---+---+ + +-------+ +------+---+---+ | ondansetron (ZOFRAN) injection | Given | 10/02/19 | 4 mg | | | | 4 mg 4 mg, intravenous, ONCE, 1 | | 19 4:43 | | | | | dose, [facility] 10/01/18 at 1715 | | PM PDT | | | | + +-------+ +------+---+---+ + +---+ | | | + +---+ | ondansetron (ZOFRAN) injection | | | 1 dose, Starting Sun10/01/18 at | | | 1634, Until Sun10/01/18 at 1643 | | + +---+ | | | + +---+ + +-------+ +------+---+---+ | ondansetron ODT (ZOFRAN ODT) | Given | 10/08/19 | 8 mg | | | | tablet 4-8 mg 4-8 mg, oral, | | 19 7:34 | | | | | EVERY 8 HOURS NEEDED, Starting | | AM PDT | | | | | 10/06/18 at 1744, Until Tue | | | | | | | 10/08/18 at 1810, nausea/vomiting, | | | | | | | first line | | | | | | + +-------+ +------+---+---+ +-------+ +------+---+---+ | Given | 10/07/19 | 8 mg | | | | | 19 6:01 | | | | | | PM PDT | | | | +-------+ +------+---+---+ +---+---+ | | | +---+---+ + +-------+ +-------+---+---+ | oxyCODONE (immediate release) | Given | 10/03/19 | 10 mg | | | | (ROXICODONE) tablet 5-10 mg 5-10 | | 19 8:41 | | | | | mg, oral, EVERY 4 HOURS | | AM PDT | | | | | NEEDED, Starting Tu10/01/18 at | | | | | | | 2020, Until Sun10/02/18 at 1458, | | | | | | | moderate pain, unresponsive to | | | | | | | non-opioid medication | | | | | | + +-------+ +-------+---+---+ +-------+ +------+---+---+ | Given | 10/02/19 | 5 mg | | | | | 19 8:40 | | | | | | PM PDT | | | | +-------+ +------+---+---+ +---+---+ | | | +---+---+ + +-------+ +------+---+---+ | polyethylene glycol (MIRALAX) | Given | 10/08/19 | 34 g | | | | packet 34 g 34 g, oral, THREE | | 19 9:36 | | | | | TIMES DAILY NEEDED, Starting | | AM PDT | | | | | 10/01/18 at 2020, Until Sun | | | | | | | 10/08/18 at 1810, 1st line - for no | | | | | | | BM for 2 days | | | | | | + +-------+ +------+---+---+ +-------+ +------+---+---+ | Given | 10/06/19 | 34 g | | | | | 19 8:09 | | | | | | PM PDT | | | | +-------+ +------+---+---+ | Given | 10/06/19 | 34 g | | | | | 19 12:27 | | | | | | PM PDT | | | | +-------+ +------+---+---+ +---+---+ | | | +---+---+ + +-------+ + +---+---+ | senna-docusate (SENOKOT S) | Given | 10/09/19 | 1 tablet | | | | 8.6-50 mg 1 tablet 1 tablet, | | 19 9:13 | | | | | oral, TWICE DAILY, First dose on | | AM PDT | | | | | 10/01/18 at 2100, Until | | | | | | | Discontinued | | | | | | + +-------+ + +---+---+ +-------+ + +---+---+ | Given | 10/08/19 | 1 tablet | | | | | 19 9:39 | | | | | | PM PDT | | | | +-------+ + +---+---+ | Given | 10/08/19 | 1 tablet | | | | | 19 8:39 | | | | | | AM PDT | | | | +-------+ + +---+---+ +---+---+ | | | +---+---+ + +---------+ + +---+---+ | sodium chloride 0.9 % (NS) IV | New Bag | 10/05/19 | 1,000 mL | | | | infusion 1,000 mL, intravenous, | | 19 8:25 | | | | | ONCE, 1 dose, [facility] 10/04/18 at 0830 | | AM PDT | | | | + +---------+ + +---+---+ +---+---+ | | | +---+---+ + +-------+ +------+---+---+ | tiZANidine (ZANAFLEX) tablet 4 | Given | 10/09/19 | 4 mg | | | | mg 4 mg, oral, THREE TIMES DAILY | | 19 1:17 | | | | | NEEDED, Starting Sun10/03/18 | | AM PDT | | | | | at 2219, Until Sun10/08/18 at | | | | | | | 1810, muscle spasms | | | | | | + +-------+ +------+---+---+ +-------+ +------+---+---+ | Given | 10/08/19 | 4 mg | | | | | 19 5:41 | | | | | | PM PDT | | | | +-------+ +------+---+---+ | Given | 10/08/19 | 4 mg | | | | | 19 9:33 | | | | | | AM PDT | | | | +-------+ +------+---+---+ +---+---+ | | | +---+---+ + +-------+ +-------+---+---+ | traZODone (DESYREL) dose 75 mg | Given | 10/03/19 | 75 mg | | | | 75 mg, oral, AT BEDTIME, First | | 19 11:46 | | | | | dose on Sun10/01/18 at 2200, | | PM PDT | | | | | Until Discontinued | | | | | | + +-------+ +-------+---+---+ +-------+ +-------+---+---+ | Given | 10/02/19 | 75 mg | | | | | 19 10:07 | | | | | | PM PDT | | | | +-------+ +-------+---+---+ +---+---+ | | | +---+---+ + +-------+ +-------+---+---+ | traZODone (DESYREL) dose 75 mg | Given | 10/08/19 | 75 mg | | | | 75 mg, oral, AT BEDTIME, First | | 19 9:42 | | | | | dose (after last reorder) on Sun | | PM PDT | | | | | 10/04/18 at 0015, Until | | | | | | | Discontinued | | | | | | + +-------+ +-------+---+---+ +-------+ +-------+---+---+ | Given | 10/07/19 | 75 mg | | | | | 19 10:46 | | | | | | PM PDT | | | | +-------+ +-------+---+---+ | Given | 10/06/19 | 75 mg | | | | | 19 10:37 | | | | | | PM PDT | | | | +-------+ +-------+---+---+ +---+---+ | | | +---+---+ documented in this encounter
--- OUTSIDE RECORDS SUMMARY | ~2019-06-26 | XMS | Encounter Summary ---
Demographics + + + | Address | [address] | | | [place] [address] | + + + | Home Phone [...] Team Providers + +------+ + | Care Manufacturing Test Technician Name | Role | Phone | + [...] Luis MD | THORACIC LAMINECTOMY | | 2015 | | [address] [place] | [address] | AND | | | | [facility] | [place], [place] | | | | | Hospital Admitting | [address] | | | | | Desk Located on the | [phone] | | | | | 9th floor | | | | | | [place], [place] | | | | | | [address] | | | +--------+---------+ + + + [...] Rajinder Luis MD PCP: PATRIC Todd Service: [facility] Neurosurgery Diagnoses Principal Final Diagnosis: Intramedullary [...] patient was felt appropriate for discharge to [facility] (Colette ROBERTS, [facility]) on 05/20/2015, and the patient and/or [...] completed No Destination: Destination: Inpatient Rehab - [facility] Condition on Discharge Good Discharge Follow Up - Facility MD to follow Facility MD to follow patient. FOLLOW-UP You have a wound check appointment with Raegan Doss PA-C at 11:30am on 05/31. This will be on the 8th floor at the [facility] on the [facility] located at [address] [place] [address]. Please call [phone] if you have any questions or conc erns before your appointment time. If you are still admitted to [facility] at this time, it is okay to cancel this appointment as thais costa as a provider at that facility can examine your incision. Please then make an appointmen t with Raegan Doss for 1 month following your discharge from [facility]. PCP:PATRIC Todd When: Please follow-up with [...] 0500) Discharge Patient To: Interhospital Transfer - [facility] Does patient have a planned readmission: No Discharge Summary Completed?: Yes. 05/20/2015 Discharging Provider: Raegan Doss PA-C Date Completed: 05/20/2015 Time Completed: 7:50 AM Discharging Attending: Rajinder Luis MD [facility] [address] [address] [place] [address] documented in this encounter Progress Notes Raegan [...] al sides of foot. Motor: Tri Bi Building Carpenter HF KE APF ADF Left 5 5 [...] BLE duplex neg for DVT. Dispo: To [facility] (Stephan [facility]) today. Raegan Doss PA-C [facility] [address] [place] [address] Drive [facility]/[place] [address] dams, PHILIPPE Mena - 05/19/2015 6:52 AM [...] Intake/Output Summary (Last 24 hours) at 05/19/15 0644 Last data filed at 05/19/15 033 Gross [...] rest of the LLE. Motor: Tri Bi Building Carpenter HF KE APF ADF Left 5 5 [...] CM for IPR placement. Raegan Doss PA-C [facility] [address] [address] [place] [address] dams, PHILIPPE Mena - 05/18/2015 6:52 AM [...] Delivery Device: None (room ai r) (05/18/15 7463) 24 Hour Vital Min/Max: Systolic (24hrs), Av [...] intact at pre-op baseline. Motor: Bi Tri Building Carpenter HF KE APF ADF Left 5 5 [...] CM for IPR placement. Raegan Doss PA-C [facility] [address] [address]/[place] [address] dams, PHILIPPE Mena - 05/17/2015 8:48 AM PST Neurosurgery Progress Note Hospital Day:5 Author; Raegan Doss PA-C Attending Physician: Rajinder Lius MD Interval Hx: -Pt reports pain controlled [...] at pre-op baseline. Motor: Delt Tri Bi Building Carpenter HF KE APF ADF Left 5 5 [...] check BMP +Mg again today. : Cont daniels for now. Musculoskeletal/skin: Routine decubitus ulcer prevention. Appreciate PT/OT involvement. DVT ppx: SCDs while in bed, Lovenox 40mg qHS. 05/16 BLE duplex neg for DVT. Dispo: Currently working with CM for IPR placement. Raegan Doss PA-C [place] [address] [address]/[place] [address] Cesar Cox MD - 02/2015 9:39 AM [...] 05/14/2015 ICU Attending: MD Sarina Admit Service: [facility] ICU Day # 2 POD # 1 HPI: Matt Fagan is a 24 y.o. 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 She reports that her RLE numbness has worsened si coe neurosurgery last saw her. She also endorses [...] information of next of kin: Judit mother [phone] Disposition: Acute care Code: Full This patient has been staffed with Lesly Branch MD , attending physician, who agrees with the above assessment and plan. [facility] DEPARTMENT: [id number] ICU NEURO Place of Service:- Inpatient Date of Service: 05/14/2015 CSN: [id number] Lab Results Component Value Date WBC 23.58 [...] and check patient later Yokasta Randall PGY2 [id number] [facility], Lesly Lang MD - 8:25 AM [facility] Author: Lesly Branch MD Briefly, [...] due to CSF hai k, cord injury, GA, UTI, acute blood loss anemia, DVT 1. [...] DVT proph with SCDs. Lesly Branch M.D. Cable Systems Installer, Neurology and Emergency Medicine I spent 20 minutes in direct care of this patient with over 50% spent at the patient s b eside, reviewing data, discussing the patient s care with other medical staff, charting, a nd discussion with treatment decision maker. [facility] DEPARTMENT: [id number] CRITICAL CARE Place of Service: Inpatient Date of Service: 05/14/2015 [facility]: [id number] Suggested Level of Care: 04732 - SUBSEQUENT HOSPITAL CARE,LEVEL III impson, Polly [...] the or iginal. NSICU Neuroscience ICU Attending Hand I Blocker Note I have seen and evaluated Matt [...] indicated. Glucose control per ICU protocol. : Daniels to monitor I/Os. Replace electrolytes. DVT prophylaxis with SCDs. Bedrest tonight. I spent 20 minutes actively involved in care and management of this patient, including disc ussions with primary and consulting teams and coordination of care Cathy Cespedes MD,PhD [facility] DEPARTMENT: [id number] ICU NEURO Place of Service:- Inpatient Date of Service: 05/13/2015 CSN: [id number] Suggested Modifier: Resident involved Suggested CPT: TO ORCHESTRA LEADER Gilbert Collins MD,MPH - 05/13/2015 8:49 PM [...] and entire foot. Motor: Tri Bi WE Building Carpenter HF KE APF ADF Left 5 5 [...] dilaudid available prn pain Raegan Doss PA-C [facility] [address] [place] [place] [address] Polly Collins MD,MPH - 05/12/2015 7:33 PM [...] in t his encounter Plan of Treatment + +---------+--------+ + [...] | | | | of spinal cord (HCC) | | + +--------+ + + + [...] | | | | of spinal cord (HCC) | | + +--------+ + +---+ +---+--------+ [...] section. | + +--------+ +---+ + | UAEUGENESTICK ONLY | Routin | 05/12/2015 | | [...] Attending | | Surgeon: Rajinder Luis MD Vault Person(s): Jere Story MD | | Preoperative Diagnosis: [...] | endotracheal anesthesia was induced on the [facility]. Occlusive dressings were | | placed over [...] identify the lesion which | | was gu in color and soft in consistency. We [...] turned back supine on | | the [facility]. She was extubated and she was taken to the recovery area in stable | | condition. At the end of the case, all instrument, sponge, and needle counts were | | correct in 2 iterations. I, Rajinder Luis MD was scrubbed and actively participated | | performing the critical portions of the operation.ZAMZAM Henry/CESARD: | | 05/15/2015 08:21:01DT: 05/15/2015 08:59:43Job #: [id number] | | | |Rajinder Luis MD | |EZEKIEL/SHANNAN | | | | | | /[id number] | + + MAGNESIUM, PLASMA (05/17/2015 10:09 [...] LABORATORY | [address] | [place] [address] | | | SERVICES, CORE | JEAN [...] LABORATORY | [address] | [place] [address] | | | SERVICES, CORE | PARK [...] | | | LABORATORY | | | GAMBIAN | | | SERVICES, | | | [...] | + + + + + | [facility] | [address] | [place] [address] | | | NINO LEONARD | JEAN [...] Final/Electronically | | | | | | blademar / KOREY | | | | | [...] | | + +---------+ + + | [place] DEPARTMENT OF | | | | | RADIOLOGY | | | | + +---------+ + + MAGNESIUM, PLASMA (05/16/2015 1:20 PM PST) + +---------+ + + + | Component | Value | Ref Range | Performed | Pathologist | | | | | At | Signature | + +---------+ + + + | MAGNESIUM,P | 1.6 (L) | 1.8 - 2.5 mg/dL | [facility] | | | L[facility] | | | [...] LABORATORY | [address] | [place] [address] | | | SERVICES, CORE | PARK [...] | | | LABORATORY | | | GAMBIAN | | | SERVICES, | | | [...] | + + + + + | [facility] [employer] | [address] | [place] [address] | | | SERVICES, NINO | JEAN [...] | + + + + + | [facility] LABORATORY | [address] | [place] [address] | | | SERVICES, CORE | PARK [...] LABORATORY | | | | | | HORACIO, | | | | | | CORE | | + +-------+ + + + + + | Specimen | + + | Blood - Blood | | (substance) | + + + + + + + | Performing | Address | City/State/Zipcode | Phone Number | | Organization | | | | + + + + + | [facility] | [address] | [place] [address] | | | SERVICES, NINO | PARK [...] | | | LABORATORY | | | GAMBIAN | | | SERVICES, | | | [...] | + + + + + | [facility] | [address] | [place] [address] | | | SERVICES, CORE | PARK [...] | | | | | signed / JENNIFER | | | | | [...] LABORATORY | [address] | [place] [address] | | | SERVICES, CORE | PARK [...] | + + + + + | [facility] | [address] | [place] [address] | | | SERVICES, CORE | PARK [...] | | | LABORATORY | | | GAMBIAN | | | SERVICES, | | | [...] | + + + + + | [facility] | [address] | [place] [address] | | | NINO LEONARD | PARK [...] | | | | | | CYN MDAuthor: | | | | | | NAILA [...] | | | | | signed / MAKENNA | | | | | [...] + + + + + | [facility] | [address] | [place] [address] | | | HORACIO, CORE | [address] | | [...] | | | LABORATORY | | | GAMBIAN | | | SERVICES, | | | [...] | + + + + + | [facility] | [address] | [place] [address] | | | SERVICES, CORE | [address] | | | + + + + + INTRAOPERATIVE NEURO MONITORING (05/13/2015) + + + | Narrative | Performed At | + + + | Patient Name: Matt Fagan Date of : 1990 | | | Date of Test: 05/13/2015 Place of | | | Service: IP Intra Op (60) [id number] - [id number] INTRAOPERATIVE NEURO | | | MONITORING History: [...] min(s), with modifier GY | | | 37313 - Short Latency EP's Upper AND Lower extremities 76950 - | | | Central Motor EP's [...] A IDH1 & IDH2 MUTATION | | [facility] | | | MUTATION | ANALYSISSpecimen Type: [...] | | | | S, Francoise T, Kleihues | | | | | | P, Antonio H. IDH1 | | | | | | mutations asmolecular | | | | | | signature and predictive | | | | | | factor of secondary | | | | | | glioblastomas. | | | | | | ClinCancer Res. 2008 | | | | | | 15(19):6076-72. | | | | | | Edison H, et al. IDH1 and | | | | | | IDH2 mutations in | | | | | | gliomas. N Engl J Med. | | | | | | 2008Feb | | | | | | (8):582-207.3. | | | | | | Lewis Mai, et al. | | | | | [...] 2008 | | | | | | 6812):9126-254. | | | | | | Rogelio [...] 2008 | | | | | | 7321):1792-5 | | | | | | (Analyte [...] | | | | | determined by [facility] | | | | | | [facility] | | | | | | Laboratories; CLIA # | | | | | | [id number]. It has not | | | | [...] | | | | | Diagnostician: Elmer Vásquez | | | | | Barbie Lopez [...] + + + | [facility] | [address], | [place] [address] | | | DIAGNOSTIC | [address] [...] (7q34)break-apart/ | | | | | | [id number] probe set. 50 | | | | [...] | | | | | | Probe(s): [place] | | | | | | Genomics BRAF | | | | | | break-apart (7q34) / | | | | | | [id number] (SA) (7q34) | | | | | | This test was | | | | | | developed and its | | | | | | performance determined | | | | | | by the [facility] | | | | | | Laboratory [...] clinical | | | | | | high school assistant principal.Amended to | | | | | | correct the date of | | | | | | service does not | | | | | | change results | | | | | | orinterpretation | | | | | | Rendering | | | | | | Diagnostician: Kristal | | | | | | HORACE Mcfarlane MD, | | | | | | FACMGClinical | | | | | | GeneticistElectronically | | | | | | Signed 06/08/2015 | | | | | | 3:22PMRendering | | | | | | Diagnostician: Kristal | | | | | | HORACE Mcdonald PhD, | | | | | | FACMGClinical | | | | | | CytogeneticistElectronic | | | | | | ally Signed 06/10/2015 | | | | | [...] + + + | [facility] | [address] | [place] [address] | | | DIAGNOSTIC | [address] [...] | A BRAF MUTATION ANALYSIS | | [facility] | | | MUTATION | (EXON 15)Specimen [...] | | | | | HRM or Kvng 20% | | | | | | (HRM); 1% (Luckey) | | | | | | >99%HRM: high resolution | | | | | | melting curve | | | | | | analysisSanger: | | | | | | Bi-directional Kvng | | | | | | sequencing with | | | | | | ORCHESTRA LEADER-clamp for | | | | | | wild-typeallele to | | | | | | increase sensitivity | | | | | | References:1. | | | | | | Tiera M, Wick W. | | | | | | Molecular predictors of | | | | | | outcome in low-grade | | | | | | glioma.Curr Opin Neurol. | | | | | | 201125(6):767-73. | | | | | | doi: | | | | | | 10.1097/WCO.[id number] | | | | | | 0217.2. Jessica CM, | | | | | | Cheo SR, Shelton | | | | | | FJ, Jena JS, Lopez Keys BE, | | | | | | Sedebbie AR,Dl GUS, | | | | | | Chuckie COMMUNICATIONS DEPARTMENT CHAIR, Warren C. | | | | | | BRAF alterations are | | | | | | frequent incerebellar | | | | | | low-grade astrocytomas | | | | | | with diffuse growth | | | | | | pattern. JNeuropathol | | | | | | Exp Neurol. 2011 | | | | | | 71(7):631-9.3. | | | | | | Doris E, Cricket R, | | | | | | Wally CUBA, Corey A, | | | | | | Yazminriarmando RA, Elva | | | | | | Y,Ronnie T, Kev A, | | | | | | Janna T, Omar M, | | | | | | La Nena WA, Michele C, | | | | | | Taran, Luis Alberto DH. | | | | | | Cooperative interactions | | | | | | of [id number] kinase and | | | | | | ANOO3Ipjmri deficiency | | | | | | in pediatric malignant | | | | | | astrocytoma as a basis | | | | | | for rationaltherapy. | | | | | | Proc Natl Acad Sci U S | | | | | | A. 2011 May | | | | | | 109(22):3009-06. | | | | | | Dyson-Zo D, Artemio Q, | | | | | | Ta K, Vena N, | | | | | | Sohail NGUYEN, Catarino | | | | | | ,Shalonda TT, Zach | | | | | | KL, Iafrate AJ, Zach | | | | | | AH, Jennifer DN, Santagata | | | | | | S. [id number] mutations | | | | | | are common in | | | | | | pleomorphic | | | | | | xanthoastrocytoma: | | | | | | diagnostic | | | | | | andtherapeutic | | | | | | implications. PLoS One. | | | | | | 2010 Mar | | | | | | 29;6(3):y44579.5. | | | | | | April G, Zora D, | | | | | | Solorzano J, Demarcus W, | | | | | | Omran H, Emir-Katya | | | | | | C,Chantell K, Mattseling | | | | | | P, Ritesh C, | | | | | | Hasselblatt M, Jennifer DN, | | | | | | Alivia A,Zurdo S, | | | | | | Soraya C, Keshia W, | | | | | | Tisha G, von | | | | | | Kayden A. Analysisof | | | | | | [...] 2009 | | | | | | Jan;12(7):621-30.7. | | | | | | Chance Nieves, Vani Tang, | | | | | | and [...] | | | | | determined by [facility] | | | | | | [facility] | | | | | | Laboratories; CLIA # | | | | | | [id number]. It has not | | | | | | been cleared orapproved | | | | | | by the U.S. Food and | | | | | | Drug Administration.) | | | | | | Case reviewed | | | | | | by:Chidi Sousa, | | | | | | M.Michel, Ph.D. / | | | | | | Pathologist | | | | | | Rendering | | | | | | Diagnostician: | | | | | | Chidi Sousa | | | | | | | | | | | | M.DYaz,Ph.D.PathologistEle | | | | | | ctronically [...] + + + + | [facility] | [address] | [place] [address] | | | DIAGNOSTIC | [address] [...] with | | | | | | Dany Peoples of | | | | | | [facility] | | | | | | University. Please | | | | | | [...] into | | | | | | FLOATING DERRICK OPERATOR tissue. Tumor cells | | | [...] block | | | | | | G2Wvbjnajjfyxgsrrfudla | | | | | | stains: see IHC | | | | | | tableNo Electron | | | | | | microscopy | | | | | | performedMolecular | | | | | | genetic studies | | | | | | performedOther Molecular | | | | | | Studies: PCR for BRAF | | | | | | [id number] for BRAF | | | | | [...] | | | | | | Block Q4Rzrjjgdgwj: | | | | | | Tumor cells | | | | | | Marker Result | | | | | | CommentGlial | | | | | | Fibrillary Acidic | | | | | | Protein | | | | | | PositiveVimentin | | | | | | PositiveOlig 2 | | | | | | CtnkyhvcCS32 % | | | | | | Positive less than | | | | | | 5%PhosphoHistone 3, | | | | | | mitotic marker | | | | | | NegativeEpithelial | | | | | | Membrane Antigen | | | | | | NegativeATRX(FLOATING DERRICK OPERATOR and | | | | | [...] PositiveChromogranin | | | | | | NiamgvbvIT51 (HPCA-1) | | | | | | [...] Crystal, | | | | | | MSavage,Ph.D./Neuropatholog | | | | | | ist [...] Crystal, | | | | | | M.Gonzalo.,Ph.D./Neuropatholog | | | | | | ist [...] | + + + + + | [facility] | [address] | [place] [address] | | | PATHOLOGY | [address] [...] | | | | signed / LORENZA BENDER | | | | | | 05/13/2015 [...] + | [facility] | [address] | [place] [address] | | | SERVICES, | [address] [...] LABORATORY | [address] | [place] [address] | | | SERVICES, | [address] [...] | + + + + + | [facility] | [address] | [place] [address] | | | SERVICES, NINO | [address] | | | + + + + + PORTILLO CARO (05/12/2015 8:22 PM PST) + + + [...] | + + + + + | [facility] | [address] | [place] [address] | | | SERVICES, CORE | JEAN [...] | | | LABORATORY | | | GAMBIAN | | | SERVICES, | | | [...] + | [facility] | [address] | [place] [address] | | | SERVICES, CORE | PARK [...] [facility] | [address] | [place] [address] | | | SERVICES, CORE | PARK [...] | + + + + + | [facility] | [address] | [place] [address] | | | HORACIO, NINO | [address] | | [...] | | | | | 05/13/15 at 1946 | | | | [...] | | | | | 05/13/15 at 1946 | | | | [...]
--- OUTSIDE RECORDS SUMMARY | ~2019-06-26 | XMS | Encounter Summary ---
Demographics + + + | Address | [address] | | | [place] [address] | + + + | Home Phone | | + + + | Preferred Language | Unknown | + + + | Marital Status | Single | + + + | Uatsdin Affiliation | NON | + + + [...] Team Providers + +------+ + | Care Cook Restaurant Name | Role | Phone | + +------+ + | No Pcp Per Patient | PCP | Unavailable | + +------+ + Encounter Details +--------+ + + + + | Date | Type | Department | Care Team | Description | +--------+ + + + + | 01/11/ | ED Progress | [facility] | Chantal Leahy, | ED Progress Note | | 2017 | | [address] | MD Odalys Morales | | | | Note-Transc | [place] | [place] | | | | juanito | [phone] | [address] | | | | | | | [...]
--- OUTSIDE RECORDS SUMMARY | ~2019-06-26 | XMS | Encounter Summary ---
Demographics + + + | Address | [address] | | | [place] [address] | + + + | Home Phone [...] Author + + + | Author | [facility] | + + + | Organization | [facility] | + + + | Address [...] Team Providers + +------+ + | Care Carnallite Plant Operator Name | Role | Phone | + +------+ + | No Pcp Per Patient | PCP | Unavailable | + +------+ + Encounter Details +--------+ + + + + | Date | Type | Department | Care Team | Description | +--------+ + + + + | 06/03/ | Telephone | Neurosurgery at | Raegan Doss, | | | 2019 | | [address] | [place] [address] | | | | | [place] Mailcode: CH8N | [place], [place] | | | | | [place] [facility] | [address] | | | | | and Healing, | [phone] | | | | | [facility] [address]th | | | | | | Floor [place], [place] | | | | | | [address] | | | | | | [phone] | | | +--------+ + + + [...]
--- OUTSIDE RECORDS SUMMARY | ~2019-06-26 | XMS | Encounter Summary ---
Demographics + + + | Address | [address] | | | [place] [address] | + + + | Home Phone [...] Team Providers + +------+ + | Care Centerless Grinder Name | Role | Phone | + [...] | Closed | | Spine | | Em | Romario, | | | | | | Emergency | Raegan Nieves, | | | | | | Medicine | [facility] [address] | | | | | | [address] | Vivek Tadeo | | | | | | [address]érrez | [place], [place] | | | | | | Rd | [address] | | | | | | [place], [place] | Phone: | | | | | | [address] | [phone] | | | | | | | Fax: | | | | | | | [phone] | +--------+--------+ + + + + Encounter Details +--------+---------+ + + + | Date | Type | Department | Care Team | Description | +--------+---------+ + + + | 11/27/ | Office | [facility] | Raegan Doss, | Spinal cord tumor | | 2017 | Visit | [facility] [address] | PA-C [address] | (Primary Dx) | | | | [place] Mailcode: | [place], [place] | | | | | [facility] | [address] | | | | | and [place], | [phone] | | | | | [place] | | | | | | [place], [place] | | | | | | [address] | | | | | | [phone] | | | +--------+---------+ + + + [...] + + + + | Weight | 72.6 kg (160 lb) | 11/27/2016 2:35 PM | | | | | PDT | | + + + + + | Height | 160 cm (5' 3") | 11/27/2016 2:35 PM | | | | | PDT | | + + + + + | Body Mass Index | 28.34 | 11/27/2016 2:35 PM | | | | | PDT | | + + + + + documented in this encounter Progress Notes Raegan Doss PA-C - 11/27/2016 2:15 PM Merced Fagan is a 25 y.o. female who is seen in clinic today with her sister and daughter for a routine follow up and updated MRI review. 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 She reports that since her last operation 8 months ago, her symptoms have ove rall remained stable with L>R leg numbness and occasional band like tightness around her T6 level if she is up and about for a while. She has not needed to use a walker of wheelchair t o help with ambulation for some time. She denies any bowel or bladder issues. She does remar k that she thinks the sensation in her lower right leg seems to be changing - possibly worse chance but is unclear as to specifics. 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 She takes gabapentin at 300mg daily for LLE paresthesias and Baclofen 10mg daily qHS for sp asms. She is also on Cymbalta which helps her back pain. She still struggles with depression and anxiety, but her PCP is committed to keeping her off of anxiolytics. Ht 1.6 m (5' 3"), Wt 72.6 kg (160 lb), BMI 28.34 kg/(m^2). PE: Alert, oriented x3. Speech clear, fluent. Thoracic incision: flat, intact. LT sensation greatly impaired on LLE, but patient is able to distinguish deep pressure. LT slightly impaired on RLE, but patient is able to feel light touch on areas examined. Strength full throughout extremities. Patellar and ankle reflexes at 3+. R clonus at 3 beats, L clonus at 1 beat. Walks with smooth gait. Imagin11/27/16 Thoracic MRI wwo - 1. Interval decrease in the size of nodular enhancement in the spinal cord at T8 level, now measuring 6 mm in craniocaudal length compared to 12 mm on previous study dated 01/17/16. Th e second nodular focus of enhancement at T10 seen on the prior study is no longer visualized . These findings may be related to interval re-resection. This study may serve as the new po stoperative baseline exam. 2. Multiple areas of cystic change within the mid thoracic spinal cord appear more well-cir cumscribed, and again may be in part related to postsurgical changes. Impression: 25 y.o. 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 The patient has been neurologically stable following her la st surgery 8 months ago with a baseline of L>R leg numbness. Plan: -Patient discussed and seen with Dr. Toby Dseai to increase gabapentin to 300mg TID; if LLE symptoms have not improved okay to slowly titrate up with PCP instruction -Plan for repeat thoracic MRI wwo in 1 year for surveillance [facility] [address] [address] documented in this encounter Plan of Treatment Not on filedocumented as of this encounter Procedures + +--------+ + + + | Procedure Name | Priori | Date/Time | Associated Diagnosis | Comments | | | ty | | | | + +--------+ + + + | UA DIPSTICK 10 DIP | Routin | 01/11/2017 | | Results for this | | W/O MICRO | e | 6:55 AM | | procedure are in the | | (AUTOMATED), POC | | PDT | | results section. | + +--------+ + + + | CULTURE, URINE | Urgent | 01/11/2017 | | Results for this | | | | 6:45 AM | | procedure are in the | | | | PDT | | results section. | + +--------+ + + + | URINE, MICROSCOPIC | Routin | 01/11/2017 | | Results for this | | EXAM | e | 6:45 AM | | procedure are in the | | | | PDT | | results section. | + +--------+ + + + | PROCALCITONIN | Routin | 01/11/2017 | | Results for this | | | e | 5:45 AM | | procedure are in the | | | | PDT | | results section. | + +--------+ + + + | INR | Routin | 01/11/2017 | | Results for this | | | e | 5:45 AM | | procedure are in the | | | | PDT | | results section. | + +--------+ + + + | COMPLETE METABOLIC | Routin | 01/11/2017 | | Results for this | | SET | e | 5:45 AM | | procedure are in the | | (NA,K,CL,CO2,BUN,CRE | | PDT | | results section. | | AT,GLUC,CA,AST,ALT,B | | | | | | ZEV TOTAL,ALK | | | | | | PHOS,ALB,PROT TOTAL) | | | | | + +--------+ + + + | APTT (ACT. PART. | Routin | 01/11/2017 | | Results for this | | THROMBO TIME) | e | 5:45 AM | | procedure are in the | | | | PDT | | results section. | + +--------+ + + + | LACTATE | Routin | 01/11/2017 | | Results for this | | | e | 5:45 AM | | procedure are in the | | | | PDT | | results section. | + +--------+ + + + | CULTURE, BLOOD BACTI | Urgent | 01/11/2017 | | Results for this | | & YEAST | | 5:20 AM | | procedure are in the | | | | PDT | | results section. | + +--------+ + + + | CULTURE, STREP | Urgent | 01/11/2017 | | Results for this | | SCREEN | | 5:05 AM | | procedure are in the | | | | PDT | | results section. | + +--------+ + + + | STREP GROUP A SCREEN | Routin | 01/11/2017 | | Results for this | | W/REFLEX SWAB | e | 5:05 AM | | procedure are in the | | | | PDT | | results section. | + +--------+ + + + | CBC, WITH | Routin | 01/11/2017 | | Results for this | | DIFFERENTIAL | e | 5:05 AM | | procedure are in the | | | | PDT | | results section. | + +--------+ + + + | CULTURE, BLOOD BACTI | Urgent | 01/11/2017 | | Results for this | | & YEAST | | 5:05 AM | | procedure are in the | | | | PDT | | results section. | + +--------+ + + + documented in this encounter Results UA DIPSTICK 10 DIP W/O MICRO (AUTOMATED), POC (01/11/2017 6:55 AM PDT) + + + + + + | Component | Value | Ref Range | Performed | Pathologist | | | | | At | Signature | + + + + + + | COLOR (UA | Yellow | | [facility] | | | DIP), POC | | | [facility] | | + + + + + + | APPEARANCE | Clear | | [facility] | | | (UA DIP), | | | [facility] | | | POC | | | | | + + + + + + | GLUCOSE (UA | Negative | Negative mg/dL | [facility] | | | DIP), POC | | | [facility] | | + + + + + + | BILIRUBIN | Negative | Negative | [facility] | | | (UA DIP), | | | [facility] | | | POC | | | | | + + + + + + | KETONES (UA | 40 (A) | Negative mg/dL | [facility] | | | DIP), POC | | | [facility] | | + + + + + + | SPECIFIC | <=1.005 | 1.003 - 1.029 | [facility] | | | GRAVITY (UA | | | [facility] | | | DIP), POC | | | | | + + + + + + | BLOOD (UA | Small (A) | Negative | [facility] | | | DIP), POC | | | [facility] | | + + + + + + | PH (UA | 6.5 | 5.0 - 9.0 | [facility] | | | DIP), POC | | | [facility] | | + + + + + + | PROTEIN (UA | Negative | Negative mg/dL | [facility] | | | DIP), POC | | | [facility] | | + + + + + + | UROBILINOGE | 1.0 | 1.0 mg/dL | [facility] | | | N (UA DIP), | | | [facility] | | | POC | | | | | + + + + + + | NITRITES | Negative | Negative | [facility] | | | (UA DIP), | | | [facility] | | | POC | | | | | + + + + + + | LEUKOCYTES | Negative | Negative | [facility] | | | (UA DIP), | | | [facility] | | | POC | | | | | + + + + + + | STATUS | TCH ED | | [facility] | | | LOCATION | | | [facility] | | + + + + + + + + | Specimen | + + | | + + + + + + + | Performing | Address | City/State/Zipcode | Phone Number | | Organization | | | | + + + + + | [facility] | [address] | [place] [address] | | | LAB | | | | + + + + + | [facility] | [address] | [place] [address] | | | LAB | | | | + + + + + CULTURE, URINE (01/11/2017 6:45 AM PDT) + + + + + + | Component | Value | Ref Range | Performed | Pathologist | | | | | At | Signature | + + + + + + | URINE | Patient:ANAID, | | [facility] | | | CULTURE | QIANA MODI | | [facility] | | | | | | [...] COLLECTED: | | | | | | 01/11/2017 | | | | | | 06:45 PDTSOURCE: | | | | | | U | | | | | | NonCath | | | | | | STARTED: | | | | | | | | | | | | 01/11/2017 09:59 PDTFREE | | | | | | TEXT SOURCE: | | | | | | | | | | | | | | | | | | ACCESSION: | | | | | | | | | | | | [id number] SITE: | | | | | | FINAL | | | | | | REPORTSFinal Report | | | | | | []Verified Date/Time: | | | | | | 01/14/2017 08:08 PDTUrine | | | | | | colony count >100,000 | | | | | | CFU/ml Mixed Gram | | | | | | positive growth | | | | | | Predominant organism | | | | | | Staphylococcus | | | | | | saprophyticus | | | | | | Routine | | | | | | susceptibility of urine | | | | | | isolate S. saprophyticus | | | | | | is not advised, because | | | | | | infections respond to | | | | | | concentration achieved | | | | | | in urine of | | | | | | antimicrobial agents | | | | | | commonly used to treat | | | | | | acute, uncomplicated | | | | | | urinary tract infections | | | | | | (e.g. nitrofurantoin, | | | | | | trimeth/sulfa, or | | | | | | fluoroquinolone). | | | | | | Performing LocationsP1: | | | | | | This test was | | | | | | performed at: | | | | | | [facility] | | | | + + + + + + + + | Specimen | + + | | + + + + + + + | Performing | Address | City/State/Zipcode | Phone Number | | Organization | | | | + + + + + | [facility] | [address] | [place] [address] | | | LAB | | | | + + + + + | [facility] | [address] | [place] [address] | | | LAB | | | | + + + + + URINE, MICROSCOPIC EXAM (01/11/2017 6:45 AM PDT) + + + + + + | Component | Value | Ref Range | Performed | Pathologist | | | | | At | Signature | + + + + + + | CC/CATH? | Non-Cath | | [facility] | | | | | | [facility] | | + + + + + + | COLOR(UR) | Yellow | | [facility] | | | | | | [facility] | | + + + + + + | APPEARANCE | Clear | | [facility] | | | | | | [facility] | | + + + + + + | WHITE CELLS | 1 | 0 - 5 /HPF | [facility] | | | | | | [facility] | | + + + + + + | RED CELLS | 2 | 0 - 5 /HPF | [facility] | | | | | | [facility] | | + + + + + + | SQUAMOUS | 12 | /LPF | [facility] | | | EPITHELIAL | | | [facility] | | + + + + + + | NON-SQUAMOU | <1 (A) | <=0 /HPF | [facility] | | | S EPITH | | | [facility] | | [...] | + + + + + | [facility] | [address] | [place] [address] | | | LAB | | | | + + + + + | [facility] | [address] | [place] [address] | | | LAB | | | | + + + + + PROCALCITONIN (01/11/2017 5:45 AM PDT) + + + + + + | Component | Value | Ref Range | Performed | Pathologist | | | | | At | Signature | + + + + + + | PROCALCITON | 0.07Comment: | ng/mL | [facility] | | | IN | INTERPRETATION FOR | | [facility] | | | | DIAGNOSIS OF SYSTEMIC | | | | | | BACTERIAL | | | | | | INFECTION/SEPSIS: <0.50 | | | | | | ng/mL: Systemic | | | | | | infection (sepsis) is | | | | | | not likely. If bacterial | | | | | | challenge <6 hours | | | | | | these values may be low. | | | | | | Local bacterial | | | | | | infection is possible. | | | | | | >=0.50 and <2.00 ng/mL: | | | | | | Systemic infection is | | | | | | possible, but other | | | | | | conditions are known to | | | | | | induce Procalcitonin as | | | | | | well. >=2.00 and <10.00 | | | | | | ng/mL: Systemic | | | | | | infection is likely, | | | | | | unless other causes are | | | | | | known. >=10.00 ng/mL: | | | | | | Important systemic | | | | | | inflammatory response, | | | | | | almost exclusively due | | | | | | to severe bacterial | | | | | | sepsis or septic shock. | | | | | | INTERPRETATION FOR | | | | | | DIFFERENTIAL DIAGNOSIS | | | | | | OF LOWER RESPIRATORY | | | | | | TRACT INFECTIONS: <0.10 | | | | | | ng/mL: Indicates | | | | | | absence of bacterial | | | | | | infection. Use of | | | | | | antibiotics strongly | | | | | | discouraged even in the | | | | | | presence of impaired | | | | | | pulmonary reserve in | | | | | | AECOPD (acute | | | | | | exacerbations of chronic | | | | | | obstructive pulmonary | | | | | | disease). >=0.10 and | | | | | | <0.25 ng/mL: Bacterial | | | | | | infection unlikely. The | | | | | | use of antibiotics is | | | | | | discouraged. >=0.25 and | | | | | | <0.50 ng/mL: Bacterial | | | | | | infection is possible. | | | | | | Recommended to initiate | | | | | | antimicrobial therapy. | | | | | | >=0.50 ng/mL: Suggests | | | | | | the presence of | | | | | | bacterial infection. | | | | | | Antibiotic treatment | | | | | | strongly recommended. | | | | + + + + + + + + | Specimen | + + | | + + + + + + + | Performing | Address | City/State/Zipcode | Phone Number | | Organization | | | | + + + + + | [facility] | [address] | [place] [address] | | | LAB | | | | + + + + + | [facility] | [address] | [place] [address] | | | LAB | | | | + + + + + LACTATE (01/11/2017 5:45 AM PDT) + +-------+ + + + | Component | Value | Ref Range | Performed | Pathologist | | | | | At | Signature | + +-------+ + + + | LACTIC ACID | 0.8 | 0.5 - 2.0 | [facility] | | | | | mmol/L | [facility] | | + +-------+ + + + + + | Specimen | + + | | + + + + + + + | Performing | Address | City/State/Zipcode | Phone Number | | Organization | | | | + + + + + | [facility] | [address] | [place] [address] | | | LAB | | | | + + + + + | [facility] | [address] | [place] [address] | | | LAB | | | | + + + + + COMPLETE METABOLIC SET (NA,K,CL,CO2,BUN,CREAT,GLUC,CA,AST,ALT,BILI TOTAL,ALK PHOS,ALB,PROT TOTAL) (01/11/2017 5:45 AM PDT) + +---------+ + + + | Component | Value | Ref Range | Performed | Pathologist | | | | | At | Signature | + +---------+ + + + | GLUCOSE, | 124 (H) | 70 - 100 mg/dL | [facility] | | | SERUM | | | [facility] | | + +---------+ + + + | UREA | 10 | 8 - 23 mg/dL | [facility] | | | NITROGEN, | | | [facility] | | | SERUM | | | | | + +---------+ + + + | CREATININE | 0.8 | 0.6 - 1.3 mg/dL | [facility] | | | SERUM | | | [facility] | | + +---------+ + + + | BUN/CREATIN | 12 | 8 - 25 ratio | [facility] | | | INE RATIO | | | [facility] | | + +---------+ + + + | EGFR | >60 | >=60 | [facility] | | | - | | mL/min/1.73m2 | [facility] | | | FINNISH | | | | | + +---------+ + + + | EGFR NON | >60 | >=60 | [facility] | | | -LEXIE | | mL/min/1.73m2 | [facility] | | | RICAN | | | | | + +---------+ + + + | SODIUM | 135 (L) | 136 - 145 mEq/L | [facility] | | | | | | [facility] | | + +---------+ + + + | POTASSIUM | 3.2 (L) | 3.5 - 5.1 mEq/L | [facility] | | | | | | [facility] | | + +---------+ + + + | CHLORIDE | 107 | 98 - 107 mEq/L | [facility] | | | | | | [facility] | | + +---------+ + + + | CO2 | 19 (L) | 21 - 31 mEq/L | [facility] | | | | | | [facility] | | + +---------+ + + + | CALCIUM, | 8.5 (L) | 8.6 - 10.3 | [facility] | | | SERUM | | mg/dL | [facility] | | + +---------+ + + + | TOTAL | 6.0 (L) | 6.4 - 8.3 gm/dL | [facility] | | | PROTEIN | | | [facility] | | + +---------+ + + + | ALBUMIN | 3.7 | 3.5 - 5.2 gm/dL | [facility] | | | SERUM | | | [facility] | | + +---------+ + + + | GLOBULIN | 2.3 | 2.3 - 3.5 gm/dL | [facility] | | | LEVEL | | | [facility] | | + +---------+ + + + | A/G RATIO | 1.6 | 0.9 - 2.0 ratio | [facility] | | | | | | [facility] | | + +---------+ + + + | BILIRUBIN | 0.5 | 0.3 - 1.2 mg/dL | [facility] | | | TOTAL | | | [facility] | | + +---------+ + + + | ALK PHOS | 71 | 34 - 104 unit/L | [facility] | | | | | | [facility] | | + +---------+ + + + | ALT (SGPT) | 8 | 7 - 52 unit/L | [facility] | | | | | | [facility] | | + +---------+ + + + | AST(SGOT) | 9 (L) | 13 - 39 unit/L | [facility] | | | | | | [facility] | | + +---------+ + + + + + | Specimen | + + | | + + + + + + + | Performing | Address | City/State/Zipcode | Phone Number | | Organization | | | | + + + + + | [facility] | [address] | [place] [address] | | | LAB | | | | + + + + + | [facility] | [address] | [place] [address] | | | LAB | | | | + + + + + APTT (ACT. PART. THROMBO TIME) (01/11/2017 5:45 AM PDT) + + + + + + | Component | Value | Ref Range | Performed | Pathologist | | | | | At | Signature | + + + + + + | APTT | 41.5 (H) | 24.2 - 35.2 | [facility] | | | | | second(s) | [facility] | | + + + + + + + + | Specimen | + + | | + + + + + + + | Performing | Address | City/State/Zipcode | Phone Number | | Organization | | | | + + + + + | [facility] | [address] | [place] [address] | | | LAB | | | | + + + + + | [facility] | [address] | [place] [address] | | | LAB | | | | + + + + + INR (01/11/2017 5:45 AM PDT) + + + + + + | Component | Value | Ref Range | Performed | Pathologist | | | | | At | Signature | + + + + + + | PROTHROMBIN | 15.6 (H) | 11.7 - 14.1 | [facility] | | | TIME | | second(s) | [facility] | | + + + + + + | INR | 1.2Comment: Recommended | | [facility] | | | | ranges for Protime INR: | | [facility] | | | | 2.0-3.0 for most | | | | | | medical and surgical | | | | | | thromboembolic states | | | | + + + + + + + + | Specimen | + + | | + + + + + + + | Performing | Address | City/State/Zipcode | Phone Number | | Organization | | | | + + + + + | [facility] | [address] | [place] [address] | | | LAB | | | | + + + + + | [facility] | [address] | [place] [address] | | | LAB | | | | + + + + + CULTURE, BLOOD BACTI & YEAST (01/11/2017 5:20 AM PDT) + + + + + + | Component | Value | Ref Range | Performed | Pathologist | | | | | At | Signature | + + + + + + | CULTURE | Patient:ANAID, | | [facility] | | | RESULT | QIANA MODI | | [facility] | | | | | | | | | | | | | | | | | | | | | | | | | | | | Blood Cultures | | | | | | PROCEDURE: | | | | | | Blood Culture | | | | | | [P1] | | | | | | COLLECTED: | | | | | | 01/11/2017 | | | | | | 05:20 PDTSOURCE: | | | | | | IV | | | | | | Start | | | | | | STARTED: | | | | | | | | | | | | 01/11/2017 05:43 PDTFREE | | | | | | TEXT SOURCE: | | | | | | | | | | | | | | | | | | ACCESSION: | | | | | | | | | | | | [id number] SITE: | | | | | | FINAL | | | | | | REPORTSFinal Report | | | | | | []Verified Date/Time: | | | | | | 01/16/2017 07:42 PDTNo | | | | | | growth at 5 days | | | | | | Performing LocationsP1: | | | | | | This test was | | | | | | performed at: | | | | | | [facility] | | | | + + + + + + + + | Specimen | + + | | + + + + + + + | Performing | Address | City/State/Zipcode | Phone Number | | Organization | | | | + + + + + | [facility] | [address] | [place] [address] | | | LAB | | | | + + + + + | [facility] | [address] | [place] [address] | | | LAB | | | | + + + + + CULTURE, BLOOD BACTI & YEAST (01/11/2017 5:05 AM PDT) + + + + + + | Component | Value | Ref Range | Performed | Pathologist | | | | | At | Signature | + + + + + + | CULTURE | Patient:ARADARRIAN, | | [facility] | | | RESULT | QIANA LY | | [facility] | | | | | | | | | | | | | | | | | | | | | | | | | | | | Blood Cultures | | | | | | PROCEDURE: | | | | | | Blood Culture | | | | | | [P1] | | | | | | COLLECTED: | | | | | | 01/11/2017 | | | | | | 05:05 PDTSOURCE: | | | | | | IV | | | | | | Start | | | | | | STARTED: | | | | | | | | | | | | 01/11/2017 05:42 PDTFREE | | | | | | TEXT SOURCE: | | | | | | | | | | | | | | | | | | ACCESSION: | | | | | | | | | | | | [id number] SITE: | | | | | | FINAL | | | | | | REPORTSFinal Report | | | | | | []Verified Date/Time: | | | | | | 01/16/2017 14:09 PDTNo | | | | | | growth at 5 days | | | | | | Performing [...] [facility] | [address] | [place] [address] | | | LAB | | | | + + + + + | [facility] | [address] | [place] [address] | | | LAB | | | | + + + + + CULTURE, STREP SCREEN (01/11/2017 5:05 AM PDT) + + + + + + | Component | Value | Ref Range | Performed | Pathologist | | | | | At | Signature | + + + + + + | CULTURE | Patient:ANAID, | | [facility] | | | RESULT | QIANA MODI | | [facility] | | | | | | | | | | | | | | | | | | | | | | | | | | | | Routine Cultures | | | | | | PROCEDURE: | | | | | | Strep Screen | | | | | | Culture COLLECTED: | | | | | | | | | | | | 01/11/2017 05:05 PDT | | | | | | | | | | | | [P1]SOURCE: | | | | | | | | | | | | Throat | | | | | | STARTED: | | | | | | | | | | | | 01/11/2017 05:43 PDTFREE | | | | | | TEXT SOURCE: | | | | | | | | | | | | | | | | | | ACCESSION: | | | | | | | | | | | | [id number] SITE: | | | | | | FINAL | | | | | | REPORTSFinal Report | | | | | | []Verified Date/Time: | | | | | | 01/13/2017 09:31 PDTNo | | | | | | beta Strep isolated. | | | | | | Performing LocationsP1: | | | | | | This test was | | | | | | performed at: | | | | | | [facility] | | | | + + + + + + + + | Specimen | + + | | + + + + + + + | Performing | Address | City/State/Zipcode | Phone Number | | Organization | | | | + + + + + | [facility] | [address] | [place] [address] | | | LAB | | | | + + + + + | [facility] | [address] | [place] [address] | | | LAB | | | | + + + + + STREP GROUP A SCREEN W/REFLEX, SWAB (01/11/2017 5:05 AM PDT) + + + + + + | Component | Value | Ref Range | Performed | Pathologist | | | | | At | Signature | + + + + + + | STREP GROUP | Neg | Neg | [facility] | | | A SCREEN | | | [facility] | | + + + + + + | INTERPRETAT | Direct Strep negative, | | [facility] | | | ION | culture to follow | | [facility] | | + + + + + + + + | Specimen | + + | | + + + + + + + | Performing | Address | City/State/Zipcode | Phone Number | | Organization | | | | + + + + + | [facility] | [address] | [place] [address] | | | LAB | | | | + + + + + | [facility] | [address] | [place] [address] | | | LAB | | | | + + + + + CBC, WITH DIFFERENTIAL (01/11/2017 5:05 AM PDT) + + + + + + | Component | Value | Ref Range | Performed | Pathologist | | | | | At | Signature | + + + + + + | WHITE CELL | 11.2 (H) | 4.5 - 10.5 | [facility] | | | COUNT | | x10(3)/mcL | [facility] | | + + + + + + | RED CELL | 4.74 | 4.20 - 5.40 | [facility] | | | COUNT | | x10(6)/mcL | [facility] | | + + + + + + | HEMOGLOBIN | 12.8 | 12.0 - 16.0 | [facility] | | | | | gm/dL | [facility] | | + + + + + + | HEMATOCRIT | 37.6 | 37.0 - 47.0 % | [facility] | | | | | | [facility] | | + + + + + + | MCV | 79.3 (L) | 80.0 - 100.0 fL | [facility] | | | | | | [facility] | | + + + + + + | MCH | 26.9 (L) | 27.0 - 34.0 pg | [facility] | | | | | | [facility] | | + + + + + + | MCHC | 33.9 | 32.0 - 36.0 | [facility] | | | | | gm/dL | [facility] | | + + + + + + | RDW | 14.4 | 11.5 - 14.5 % | [facility] | | | | | | [facility] | | + + + + + + | PLATELET | 238 | 150 - 400 | [facility] | | | COUNT | | x10(3)/mcL | [facility] | | + + + + + + | MPV | 9.9 | 7.4 - 10.4 fL | [facility] | | | | | | [facility] | | + + + + + + | NEUTROPHIL | 79.7 (H) | 40.2 - 78.0 % | [facility] | | | % | | | [facility] | | + + + + + + | LYMPHOCYTE | 10.1 (L) | 15.5 - 49.1 % | [facility] | | | % | | | [facility] | | + + + + + + | MONOCYTE % | 9.6 (H) | 1.7 - 8.9 % | [facility] | | | | | | [facility] | | + + + + + + | EOS % | 0.2 | 0.0 - 5.2 % | [facility] | | | | | | [facility] | | + + + + + + | BASO % | 0.4 | 0.0 - 2.0 % | [facility] | | | | | | [facility] | | + + + + + + | NEUTROPHIL | 9.0 (H) | 0.9 - 7.7 | [facility] | | | # | | x10(3)/mcL | [facility] | | + + + + + + | LYMPHOCYTE | 1.1 | 1.0 - 3.4 | [facility] | | | # | | x10(3)/mcL | [facility] | | + + + + + + | MONOCYTE # | 1.1 (H) | 0.1 - 0.6 | [facility] | | | | | x10(3)/mcL | [facility] | | + + + + + + | EOS # | 0.0 | 0.0 - 0.4 | [facility] | | | | | x10(3)/mcL | [facility] | | + + + + + + | BASO # | 0.0 | 0.0 - 0.2 | [facility] | | | | | x10(3)/mcL | [facility] | | + + + + + + | DIFFERENTIA | No | | [facility] | | | L? 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
--- OUTSIDE RECORDS SUMMARY | ~2019-06-26 | XMS | Encounter Summary ---
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 | | | 2018 | anned | [id number] | | | | | | [address] | | | | | | Mailcode: [id number] | | | | | | [facility] | | | | | | [place], [place] | | | | | | [address] | | | | | | [phone] | | | +--------+ + + + [...]
--- OUTSIDE RECORDS SUMMARY | ~2019-06-26 | XMS | Encounter Summary ---
Demographics + + + | Address | [address] | | | [place] [address] | + + + | Home Phone | | + + + | Preferred Language | Unknown | + + + | Marital Status | Single | + + + | Latter-Day Affiliation | NON | + + + | Race | White | + + + | Ethnic Group | Not or | + + + Author + + + | Author | [facility] | + + + | Organization | [facility] | + + + | [...] Team Providers + +------+ + | Care Body Recall Instructor Name | Role | Phone | + +------+ + | Princess Mendoza MD | PCP | | + +------+ + Reason for Visit + + + | Reason | Comments | + + + | Post Op Concern | H/O of t-spine lession with associated fever and weakness to RLE | | | (R>L) started last | + + + AUTH/CERT +--------+--------+ + [...] Description | +--------+---------+ + + + | 01/13/ | Surgery | 6A Intra Op [id number] | Rajinder Luis MD | REDO T7-T10 THORACIC | | 2017 | | [address] | [address] | LAMINECTOMIES FOR | | | | Rd [facility] Main | [place], [place] | RESECTION OF M[place], | | | | Hospital Admitting | [phone] | INTRAOPERATIVE NEURO | | | | Desk Located on the | [phone] | MONITORING AND | | | | 9th floor | | ULTRASOUND, | | | | [place], [place] | | SPECIMENS TO | | | | [phone] | | PATHOLOGY X 2 (KYMBERLY) | +--------+---------+ + + + Social History [...] + + + | Blood Pressure | 106/55 | 01/18/2017 12:12 PM | | | | | PDT | | + + + + + | Pulse | 64 | 01/18/2017 12:10 PM | | | | | PDT | | + + + + + | Temperature | 36.9 C (98.4 F) | 01/18/2017 12:10 PM | | | | | PDT | | + + + + + | Respiratory Rate | 16 | 01/18/2017 8:25 AM | | | | | PDT | | + + + + + | Oxygen Saturation | 99% | 01/18/2017 12:10 PM | | | | | PDT | | + + + + + | Inhaled Oxygen | - | - | | | Concentration | | | | + + + + + | Weight | 78 kg (171 lb 15.3 | 01/15/2017 12:00 AM | | | | oz) | PDT | | + + + + + | Height | 160 cm (5' 3") | 01/12/2017 12:00 PM | | | | | PDT | | + + + + + | Body Mass Index | 30.46 | 01/12/2017 12:00 PM | | | | | PDT | | + + + + + documented in this encounter Discharge Summaries Raegan Doss PA-C - 01/18/2017 10:56 AM PDTFormatting of this note might be different f rom the original. 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 Pathology revealed a low-grade glioneuronal tumor. She has had 3 prior resections; Ada alvarenga 2014, September 09, 2015, and March 22, 2016. She presented on this admission on 01/11/17 with worsening right lower extremity function as well as decreased sensation in the right l ower extremity. An MRI was obtained, which appeared to have little interval change compared to the prior study in November 2016, however there was concern for possible expansion of the cys tic components cranial and caudal to the tumor. We were concerned that this was obstructing CSF flow through the central canal and accumulating pressure in there, leading to the sympt oms. Given the constellation of clinical and radiographic findings, she was indicated for f urther tumor resection. The inpatient stay related to this procedure(s) took an uncomplicated perioperative course and the patient was followed closely by the attending providers, resident providers, and [facility]/nursing staff. Post operatively, the patient was admitted to the NSICU for close neurol ogic and hemodynamic monitoring. When stable, the patient was transferred to the [facility] for on going convalescent care. Pathology confirmed recurrent/residual low grade glioneuronal tumo r. Surgical pain was managed with medication. The patient made appropriate gains toward act ivity and functional goals while an inpatient. She only demonstrated slight weakness in her right knee extension and very slight weakness in her right knee flexion upon discharge. She had temporarily improvement in sensation along the plantar aspect of her left foot (when com pared to baseline), but this numbness eventually progressed back to her baseline, with diffu se patchy lower extremity numbness. The patient worked with our rehabilitation team and was seen by a Migrant Leader with recommendation for [facility]) upon discharge. While on the hospital floor, the patient tolerated oral intake sufficient to maintain nutri tion and hydration. The surgical wound remained clean, dry, and intact without signs concern ing for infection. The patient was felt appropriate for discharge to [facility] ([facility]) on 01/18/2017 , and the patient and/or family members agree with this course of action. The patient will need to have her wale removed around 2 weeks post-op. This can either b e done at her post-op clinic visit or at [facility] by a provider and then cancel the post-op visit with Raegan Doss PA-C. She will need to then make an appointment to see Raegan Doss at 6 weeks post-op. Diet Regular Regular diet- There are no restrictions to your diet. You may eat or drink whatever you pr efer, though healthy food choices are recommended. Activity Lifting restrictions: No lifting more than 10 pounds. Avoid repetitive bending and all strenuous activity until further notice. No driving while taking oral narcotics/pain medications. Condition on Discharge Good Discharge Follow Up - Facility MD to follow Facility MD to follow patient. Code Status for Facility Status: Full Code Follow Up You have an appointment with Raegan Doss PA-C at 12:30pm on 01/29. This will be on the 12th floor at the [facility] on the [facility] located at [address] [place] [address]. Please call [phone] if you have any questions or concerns before your appointment time. If you are still admitted to [facility] at the time of this appointment, the providers at [facility] can remove your wale. Please then make a 6 week post-op visit to see Raegan Doss PA-C in [facility] for routine follow up. You can call [phone] to make this appointment. PCP:Princess Chowdary MD When: Please follow-up with your primary care [...] Medication List START taking these medications Details lidocaine 5 % topical adhesive patch,medicated Apply 2 patches to skin every twenty-four ho urs. Apply patch to most painful area on back; Patch may remain in place for up to 12 hours in any 24-hour period. Qty: 30 patch, Refills: 0 Associated Diagnoses: Spinal cord tumor CONTINUE these medications which have CHANGED or have new prescriptions Details !! baclofen 10 mg oral tablet Take 1 tablet by mouth three times daily as needed (Spasticiy ). Indications: Muscle Spasticity of Spinal Origin Qty: 30 tablet, Refills: 0 !! baclofen 20 mg oral tablet Take 0.75 tablets by mouth once daily at bedtime. Indications : Muscle Spasticity of Spinal Origin Qty: 10 tablet, Refills: 0 enoxaparin 40 mg/0.4 mL subcutaneous syringe Inject 0.4 mL under the skin (SUBC) once daily in the evening. Okay to discontinue at discretion of house MD or when patient is ambulating >150ft TID. Indications: Deep Vein Thrombosis Prevention Qty: 1 mL, Refills: 0 !! gabapentin 300 mg oral capsule Take 2 capsules by mouth once daily at bedtime. Qty: 30 capsule, Refills: 0 Associated Diagnoses: Spinal cord tumor !! gabapentin 300 mg oral capsule Take 1 capsule by mouth two times daily. Twice daily at 0 900 and 1400hrs Qty: 30 capsule, Refills: 0 Associated Diagnoses: Spinal cord tumor HYDROmorphone 2 mg oral tablet Take 2-4 tablets by mouth every three hours as needed for mo derate pain. Qty: 140 tablet, Refills: 0 Associated Diagnoses: Thoracic spine tumor !! - Potential duplicate medications found. Please discuss with provider. CONTINUE these medications which have NOT CHANGED Details acetaminophen 325 mg oral tablet Take 1-2 tablets by mouth every six hours as needed (pain or fever greater than 38.5 degrees C). bisacodyl 10 mg rectal suppository Insert 1 suppository rectally once daily as needed for c onstipation (for no BM in past 2 days). Qty: 20 suppository, Refills: 0 diphenhydrAMINE 25 mg oral capsule Take 1 capsule by mouth every six hours as needed. Qty: 60 capsule, Refills: 0 DULoxetine 60 mg oral capsule,delayed release(DR/EC) Take 60 mg by mouth once daily. LORazepam 0.5 mg oral tablet Take 1 tablet by mouth every six hours as needed for anxiety. Indications: ANXIETY Qty: 20 tablet, Refills: 0 magnesium citrate oral solution Take [...] >2 days). Qty: 15 tablet, Refills: 1 traZODone 50 mg oral tablet Take 1.5 tablets by mouth once daily at bedtime as needed. Qty: 30 tablet, Refills: 0 STOP taking these medications menthol 5 mg mucous membrane lozenge Comments: Reason for Stopping: scopolamine 1.5 mg (1 mg over 3 days) transdermal patch 3 day Comments: Reason for Stopping: Wound Care: 1) Keep your incision site clean and dry. 2) It is ok for you to shower and get your surgical incision wet, but do not submerge surg ical incision in hot tub or swimming pool. 3) Please avoid placing creams or ointments directly on the incision even though it may it ch. 4) Your wale will need to be removed at 2 weeks post-op, around 01/28/17. If you are still admitted to [facility] when your wale need to come out, the providers at [facility] an remove your wale. Please then make a 6 week post-op visit to see Raegan Doss PA-C in Neurosurgery clinic for routine follow up. You can call [phone] to make this appointmen t. Special Instructions/Tests: N/A Condition On Discharge: Good Vital Signs at discharge as appropriate: BP: 109/55 (01/18/17 0451) Pulse: 64 (01/18/17 0451) Resp: 14 ( 0451) Weight: 78 kg (171 lb 15.3 oz) (01/15/17 0000) Discharge Patient To: Interhospital Transfer - [facility] Does patient have a planned readmission: No Discharge Summary Completed?: Yes. 01/18/2017 Discharging Provider: Raegan Doss PA-C Date Completed: 01/18/2017 Time Completed: 10:56 AM Discharging Attending: Rajinder Luis MD [facility] [address] [id number] [place] [address] documented in this encounter Medications at Time of Discharge + + + +---------+--------+ + | Medication | Sig | Dispensed | Refills | Start | End Date | | | | | | Date | | + + + +---------+--------+ + | DULoxetine 60 mg | Take 120 mg by mouth | | 0 | | | | oral capsule,delayed | once daily at | | | | | | release(DR/EC) | bedtime. | | | | | + + + +---------+--------+ + documented as of this encounter Progress Notes Raegan Doss PA-C - 01/18/2017 9:48 AM PDTFormatting of this note might be different f rom the original. Neurosurgery Progress Note Hospital Day:7 Author; Raegan Doss PA-C Attending Physician: Rajinder Luis MD Interval Hx: -PO dilaudid was increased to 4-8mg q3h for pain, patient states her pain is now much ai r controlled at 5/10 -Denies any new weakness or new sensation loss/gain since yesterday -Physiatry saw patient and recommended a short stay at [facility] -Patient has required several straight caths overnight for elevated PVRs. Has been able to void intermittently on her own. Last Vitals: BP 109/55 | Pulse 64 | Temp 36.5 C (97.7 F) | RR 14 | Ht 1.6 m (5' 3") | W t 78 kg (171 lb 15.3 oz) | SpO2 96% | BMI 30.46 kg/(m^2) O2 Delivery Device: None (room air) (01/18/17 0451) 24 Hour Vital Min/Max: Systolic (24hrs), Av , Min:104 , Max:115 Diastolic (24hrs), Av, Min:55, Max:74Puls e Min: 60 Max: 64 Temp Min: 36.5 C (97.7 F) Max: 36.8 C (98.2 F) Resp Min: 14 Max: 16 SpO2 Min: 96 % Max: 100 % Intake/Output Summary (Last 24 hours) at 01/18/17 0948 Last data filed at 01/18/17 0520 Gross per 24 hour Intake 1420 ml Output 1775 ml Net -355 ml Exam: Alert, oriented x3. Speech clear, fluent. Gaze conjugate. Face symmetric. Thoracic incision: flat, dry, no erythema, intact. Wale present. Sensation: LT sensation is patchy in BLE. Motor: HF KF KE APF ADF Left 5 5 5 5 5 Right 5 4+ 4 5 5 Labs: CBC with diff last 72 hours (or 3 results) Recent Labs 01/16/17 0701/17/17 0634 01/18/17 0635 WBC 9.16 8.18 7.96 HB 12.0 12.6 11.5* HCT 37.4 39.2 36.5 PLT 249 290 319 Chemistries: Last 72 Hours (or 3 results): Recent Labs 01/16/1771301/17/17 0634 01/18/17 0635 NA 136 139 139 K 4.0 4.5 3.8 CL 102 102 102 BICARB 30 31 30 BUN 10 8 8 CR 0.62 0.61 0.61 GLU 85 84 90 CA 9.1 9.7 9.1 PO4 3.8 3.8 3.5 Current Medications: acetaminophen (TYLENOL) tablet 650 mg, 650 mg, oral, Q6H baclofen (LIORESAL) tablet 10 mg, 10 mg, oral, TID PRN baclofen (LIORESAL) tablet 15 mg, 15 mg, oral, HS bisacodyl (DULCOLAX) suppository 10 mg, 10 mg, rectal, DAILY PRN diphenhydrAMINE (BENADRYL) capsule 25 mg, 25 mg, oral, Q6H PRN DULoxetine (CYMBALTA) capsule 60 mg, 60 mg, oral, DAILY enoxaparin (LOVENOX) injection 40 mg, 40 mg, subcutaneous, QPM gabapentin (NEURONTIN) capsule 300 mg, 300 mg, oral, BID gabapentin (NEURONTIN) capsule 600 mg, 600 mg, oral, HS glycopyrrolate (ROBINUL) injection 0.2 mg, 0.2 mg, intravenous, Q2H PRN HYDROmorphone (DILAUDID) tablet 4-8 mg, 4-8 mg, oral, Q3H PRN lidocaine (LIDODERM) 5 % patch 2 patch, 2 patch, transdermal, Q24H LORazepam (ATIVAN) tablet 0.5 mg, 0.5 mg, oral, Q6H PRN magnesium citrate liquid 296 mL, 296 mL, oral, DAILY PRN multivitamin (THERA VITAMIN) 1 tablet, 1 tablet, oral, DAILY [] ondansetron (ZOFRAN) injection 4 mg, 4 mg, intravenous, Q12H FOLLOWED BY onda nsetron (ZOFRAN) injection 4 mg, 4 mg, intravenous, Q12H PRN polyethylene glycol (MIRALAX) packet 34 g, 34 g, oral, TID PRN senna-docusate (SENOKOT S) 8.6-50 mg 4 tablet, 4 tablet, oral, BID traZODone (DESYREL) dose 75 mg, 75 mg, oral, HS PRN Impression: 26 yo female with 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 Patient presented to OSH on 01/11/17 with reports of progre ssive RLE weakness and numbness since 01/10, fever at home to 103 on 01/10 and 1 episode of blad valerie incontinence. Total spine MRI on 01/11 showed no epidural abscess or other new compressi ve spinal lesion or evidence of disease progression. She is now s/p T8 and T9 laminectomies for resection of recurrent/residual intramedullary spinal cord tumor on 01/13/17. RLE strength improved. Transient improvement in plantar aspect of left foot. Wound intact. Plan: Neuro: Strength full in BLE except for slight R KE/KF weakness. Will continue to monitor fo r acute neurological changes. Continuing pain analgesia w/ PO dilaudid 4-8mg, APAP 650mg q6h , lidocaine patches. Trazodone qHS prn insomnia. Cont home gabapentin 300mg qAM and afternoon then 600mg qHS (increased from home 300mg qHS) , Baclofen 10mg TID prn and 15mg qHS scheduled. Cont home cymbalta 60mg daily. Will continue low dose Ativan for anxiety. Wound: Routine wound care. No ointments or creams, please. Okay to shower/wash incision mariola ly. Will remove wale at 2 weeks post-op. CV: HD stable. Will continue to monitor. Pulm: IS, cough/deep breath GI/diet: Regular diet, +anti-emetics, bowel regimen prn. LBM 01/12. Historically patient is q uite constipated following surgeries. She is aware of all our bowel medication options inclu ding mag citrate, which she is declining at this time. : Daniels removed on 01/16. Has required several straight caths, will continue to bladder sc an q4h and SC for volumes >500mL. Historically patient typically has some neurogenic bladder effects following surgery that resolve. Musculoskeletal/skin: Routine decubitus ulcer prevention, appreciate PT/OT involvement with recs for [facility]. ID/Heme: Afebrile since admission on 01/11. DVT ppx: SCDs while in bed, ppx lovenox 40mg inj. qHS. Dispo: Patient is medically stable for discharge. CM working on placement at [facility] for discharge today. Raegan Doss PA-C [facility] [address] [address]/[place] [address] dams, PHILIPPE Mena - 01/17/2017 10:28 AM PDT Neurosurgery Progress Note Hospital Day:6 Author; Raegan Doss PA-C Attending Physician: Rajinder Luis MD Interval Hx: Patient was able to ambulate to the bathroom last night with a walker and standby assist. P ain is still controlled at -01/15. Daniels removed yesterday. Patient has been straight cathed twice since daniels removal. Patient reports that the bottom of her left foot seems more numb than yesterday. Patient feels that current dosing of gabapentin and baclofen are effective. No BM since pre-op, patient is passing flatulence, denies any abdominal distention or disco mfort. Last Vitals: BP 104/63 | Pulse 64 | Temp 36.9 C (98.4 F) | RR 16 | Ht 1.6 m (5' 3") | W t 78 kg (171 lb 15.3 oz) | SpO2 97% | BMI 30.46 kg/(m^2) O2 Delivery Device: None (room air) (01/17/17 0416) 24 Hour Vital Min/Max: Systolic (24hrs), Av , Min:91 , Max:111 Diastolic (24hrs), Av, Min:52, Max:68Pulse Min: 53 Max: 114 Temp Min: 36.7 C (98.1 F) Max: 37 C (98.6 F) Resp Min: 16 Max: 16 SpO2 Min: 96 % Max: 98 % Intake/Output Summary (Last 24 hours) at 01/17/17 1028 Last data filed at 01/17/17 0434 Gross per 24 hour Intake 1285 ml Output 2090 ml Net -805 ml Exam: Alert, oriented x3. Speech clear, fluent. Gaze conjugate. Face symmetric. Thoracic incision: flat, dry, intact. No erythema. Wale present. Sensation: Patchy numbness in BLE. Decreased sensation on plantar aspect of left foot when compared to yesterday. Motor: HF KF KE APF ADF Left 5 5 5 5 5 Right 5 5 4+ 5 5 Labs: CBC with diff last 72 hours (or 3 results) Recent Labs 01/15/17 0030 01/16/17 0714 01/17/17 0634 WBC 10.08 9.16 8.18 HB 11.9* 12.0 12.6 HCT 37.0 37.4 39.2 PLT 237 249 290 Chemistries: Last 72 Hours (or 3 results): Recent Labs 01/15/17 0030 01/16/17 0714 01/17/17 0634 NA 142 136 139 K 3.3* 4.0 4.5 CL 108 102 102 BICARB 28 30 31 BUN 9 10 8 CR 0.72 0.62 0.61 GLU 102* 85 84 CA 8.4* 9.1 9.7 MG 2.3 -- -- PO4 2.6 3.8 3.8 Current Medications: acetaminophen (TYLENOL) tablet 650 mg, 650 mg, oral, Q6H baclofen (LIORESAL) tablet 10 mg, 10 mg, oral, TID PRN baclofen (LIORESAL) tablet 15 mg, 15 mg, oral, HS bisacodyl (DULCOLAX) suppository 10 mg, 10 mg, rectal, DAILY PRN diphenhydrAMINE (BENADRYL) capsule 25 mg, 25 mg, oral, Q6H PRN DULoxetine (CYMBALTA) capsule 60 mg, 60 mg, oral, DAILY enoxaparin (LOVENOX) injection 40 mg, 40 mg, subcutaneous, QPM gabapentin (NEURONTIN) capsule 300 mg, 300 mg, oral, BID gabapentin (NEURONTIN) capsule 600 mg, 600 mg, oral, HS glycopyrrolate (ROBINUL) injection 0.2 mg, 0.2 mg, intravenous, Q2H PRN HYDROmorphone (DILAUDID) tablet 2-6 mg, 2-6 mg, oral, Q3H PRN lidocaine (LIDODERM) 5 % patch 2 patch, 2 patch, transdermal, Q24H LORazepam (ATIVAN) tablet 0.5 mg, 0.5 mg, oral, Q6H PRN magnesium citrate liquid 296 mL, 296 mL, oral, DAILY PRN multivitamin (THERA VITAMIN) 1 tablet, 1 tablet, oral, DAILY [] ondansetron (ZOFRAN) injection 4 mg, 4 mg, intravenous, Q12H FOLLOWED BY onda nsetron (ZOFRAN) injection 4 mg, 4 mg, intravenous, Q12H PRN polyethylene glycol (MIRALAX) packet 34 g, 34 g, oral, TID PRN senna-docusate (SENOKOT S) 8.6-50 mg 4 tablet, 4 tablet, oral, BID traZODone (DESYREL) dose 75 mg, 75 mg, oral, HS PRN Impression: 26 yo female with 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 Patient presented to OSH on 01/11/17 with reports of progre ssive RLE weakness and numbness since 01/10, fever at home to 103 on 01/10 and 1 episode of blad valerie incontinence. Total spine MRI on 01/11 showed no epidural abscess or other new compressi ve spinal lesion or evidence of disease progression. She is now s/p T8 and T9 laminectomies for resection of recurrent/residual intramedullary spinal cord tumor on 01/13/17. RLE strength improved. Transient improvement in plantar aspect of left foot. Wound intact. Plan: Neuro: Strength full in BLE except for slight R KE weakness. Will continue to monitor for a cute neurological changes. Continuing pain analgesia w/ PO dilaudid 2-6mg, APAP 650mg q6h, l idocaine patches. Trazodone qHS prn insomnia. Cont home gabapentin 300mg qAM and afternoon then 600mg qHS (increased from home 300mg qHS) , Baclofen 10mg TID prn and 15mg qHS scheduled. Cont home cymbalta 60mg daily. Will continue low dose Ativan for anxiety. Wound: Routine wound care. No ointments or creams, please. Okay to shower/wash incision mariola ly. Will remove wale at 2 weeks post-op. CV: HD stable. Will continue to monitor. Pulm: IS, cough/deep breath GI/diet: Regular diet, +anti-emetics, bowel regimen prn. LBM 01/12. Historically patient is q uite constipated following surgeries. She is aware of all our bowel medication options inclu ding mag citrate, which she is declining at this time. : daniels removed on 01/16. Has required several straight caths, will continue to bladder sc an q4h and SC for volumes >500mL. Historically patient typically has some neurogenic bladder effects following surgery that resolve. Musculoskeletal/skin: Routine decubitus ulcer prevention, appreciate PT/OT involvement. Phy siatry consult placed for possible admission to [facility]. ID/Heme: Afebrile since admission on 01/11. DVT ppx: SCDs while in bed, ppx lovenox 40mg inj. qHS. Dispo: Pending physiatry consult. Appreciate CM involvement. [facility]ON [facility] [address] [id number] [place] [address] dams, PHILIPPE Mena - 01/16/2017 8:38 AM PDT Neurosurgery Progress Note Hospital Day:5 Author; Raegan Doss PA-C Attending Physician: Rajinder Luis MD Interval Hx: -Patient reports better controlled thoracic pain. Lidocaine patches helped yesterday. She i s not taking the max amount of dilaudid. Worked with PT/OT yesterday. Did not get out of bed with PT, but is planning to today. Daniels catheter remains. -Potassium at 4.0 today after repletion yesterday Last Vitals: BP 102/60 | Pulse 69 | Temp 36.6 C (97.9 F) | RR 16 | Ht 1.6 m (5' 3") | W t 78 kg (171 lb 15.3 oz) | SpO2 98% | BMI 30.46 kg/(m^2) O2 Delivery Device: None (room air) (01/16/17 0815) 24 Hour Vital Min/Max: Systolic (24hrs), Av , Min:92 , Max:102 Diastolic (24hrs), Av, Min:50, Max:63Pulse Min: 58 Max: 69 Temp Min: 36.3 C (97.3 F) Max: 37.1 C (98.8 F) Resp Min: 16 Max: 18 SpO2 Min: 97 % Max: 99 % Intake/Output Summary (Last 24 hours) at 01/16/17 0838 Last data filed at 01/16/17 0816 Gross per 24 hour Intake 1440 ml Output 2350 ml Net -910 ml Exam: Alert, oriented x3. Speech clear, fluent. Thoracic incision: flat, dry, no erythema, no fluctuance. Wale present. Sensation: Patchy sensation loss in BLE, L>R. Motor: HF KF KE APF ADF Left 5 5 5 5 5 Right 5 5 4+ 5 5 Labs: CBC with diff last 72 hours (or 3 results) Recent Labs 075301/15/17 0030 01/16/17 0714 WBC 8.70 10.08 9.16 HB 11.8* 11.9* 12.0 HCT 36.0 37.0 37.4 PLT 257 237 249 Chemistries: Last 72 Hours (or 3 results): Recent Labs 01/14/175301/14/17 0729 01/15/172901/16/17 0714 NA 142 -- -- 142 136 K 3.6 -- -- 3.3* 4.0 CL 109* -- -- 108 102 BICARB 23 -- -- 28 30 BUN 8 -- -- 9 10 CR 0.61 -- -- 0.72 0.62 GLU 108* < > 117* 102* 85 CA 8.5* -- -- 8.4* 9.1 MG 1.9 -- -- 2.3 -- PO4 3.6 -- -- 2.6 3.8 < > = values in this interval not displayed. Current Medications: acetaminophen (TYLENOL) tablet 650 mg, 650 mg, oral, Q6H baclofen (LIORESAL) tablet 10 mg, 10 mg, oral, TID PRN baclofen (LIORESAL) tablet 15 mg, 15 mg, oral, HS bisacodyl (DULCOLAX) suppository 10 mg, 10 mg, rectal, DAILY PRN diphenhydrAMINE (BENADRYL) capsule 25 mg, 25 mg, oral, Q6H PRN DULoxetine (CYMBALTA) capsule 60 mg, 60 mg, oral, DAILY enoxaparin (LOVENOX) injection 40 mg, 40 mg, subcutaneous, QPM gabapentin (NEURONTIN) capsule 300 mg, 300 mg, oral, BID gabapentin (NEURONTIN) capsule 600 mg, 600 mg, oral, HS glycopyrrolate (ROBINUL) injection 0.2 mg, 0.2 mg, intravenous, Q2H PRN HYDROmorphone (DILAUDID) tablet 2-6 mg, 2-6 mg, oral, Q3H PRN lidocaine (LIDODERM) 5 % patch 2 patch, 2 patch, transdermal, Q24H LORazepam (ATIVAN) tablet 0.5 mg, 0.5 mg, oral, Q6H PRN magnesium citrate liquid 296 mL, 296 mL, oral, DAILY PRN multivitamin (THERA VITAMIN) 1 tablet, 1 tablet, oral, DAILY [] ondansetron (ZOFRAN) injection 4 mg, 4 mg, intravenous, Q12H FOLLOWED BY onda nsetron (ZOFRAN) injection 4 mg, 4 mg, intravenous, Q12H PRN polyethylene glycol (MIRALAX) packet 34 g, 34 g, oral, TID PRN senna-docusate (SENOKOT S) 8.6-50 mg 4 tablet, 4 tablet, oral, BID traZODone (DESYREL) dose 75 mg, 75 mg, oral, HS PRN Impression: 26 yo female with 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 Patient presented to OSH on 01/11/17 with reports of progre ssive RLE weakness and numbness since 01/10, fever at home to 103 on 01/10 and 1 episode of blad valerie incontinence. Total spine MRI on 01/11 showed no epidural abscess or other new compressiv e spinal lesion or evidence of disease progression. She is now s/p T8 and T9 laminectomies f or resection of recurrent/residual intramedullary spinal cord tumor on 01/13/17. RLE strength improved, and new resolution of numbness on plantar surface of L foot. Wound intact. Plan: Neuro: Strength full in BLE except for slight R KE weakness noted today. Will continue to m onitor for acute neurological changes. Continuing pain analgesia w/ PO dilaudid 2-6mg, APAP 650mg q6h, lidocaine patches. Trazodone qHS prn insomnia. Cont home gabapentin 300mg qAM and afternoon then 600mg qHS (increased from home 300mg qHS) , Baclofen 10mg TID prn and 15mg qHS scheduled. Cont home cymbalta 60mg daily. Will continue low dose Ativan for anxiety. Wound: Routine wound care. No ointments or creams, please. Okay to shower/wash incision mariola ly. Will remove wale at 2 weeks post-op. CV: HD stable. Will continue to monitor. Pulm: IS, cough/deep breath GI/diet: Regular diet, +anti-emetics, bowel regimen prn. LBM 01/12, no reported BM post-op. : Daniels in place since OR on 01/13, pt wishes to keep in place until able to ambulate. Will plan to remove today. Musculoskeletal/skin: Routine decubitus ulcer prevention, appreciate PT/OT involvement. ID/Heme: Afebrile since admission on 01/11. DVT ppx: SCDs while in bed, ppx lovenox 40mg inj. qHS. Dispo: Pending results of PT/OT involvement today. May be a candidate for TRISTON. Will discuss with CM. Raegan Doss PA-C [facility] [address] [id number] [place] [address] dams, PHILIPPE Mena - 01/15/2017 9:02 AM PDT Neurosurgery Progress Note Hospital Day:4 Author; Raegan Doss PA-C Attending Physician: Rajinder Luis MD Interval Hx: Transferred to Neuro [place] from Neuro ICU overnight. C/o of lack of sleep and persistent pain bijal-incisional. Reports stable improvement in sensation on plantar aspect o f L foot. She would like to keep daniels catheter in until able to ambulate to [facility]. She also r equests going up on her gabapentin medication from 900mg to 1200mg daily. She is having incr eased spasms and would like to continue with her current regimen of baclofen 10mg TID prn an d 15mg qHS scheduled. Last Vitals: BP 101/54 | Pulse 66 | Temp 37 C (98.6 F) | RR 16 | Ht 1.6 m (5' 3") | Wt 78 kg (171 lb 15.3 oz) | SpO2 99% | BMI 30.46 kg/(m^2) O2 Delivery Device: None (room air) (01/15/17 0529) 24 Hour Vital Min/Max: Systolic (24hrs), Av , Min:96 , Max:112 Diastolic (24hrs), Av, Min:54, Max:74Pulse Min: 52 Max: 69 Temp Min: 36.6 C (97.9 F) Max: 37 C (98.6 F) Resp Min: 11 Max: 25 SpO2 Min: 97 % Max: 100 % Intake/Output Summary (Last 24 hours) at 01/15/17 09 Last data filed at 01/15/17 0500 Gross per 24 hour Intake 1860 ml Output 2065 ml Net -205 ml Exam: Alert, oriented person, place, and time . Speech clear, fluent. Follows commands briskly. Gaze conjugate. Face symmetric. Sensation: Patchy sensation loss on LLE, able to locate LT on majority of areas tested. Motor: Full strength throughout LE HF KF KE APF ADF Left 5 5 5 5 5 Right 5 5 5 5 5 Spinal incision: Dressing intact, incisional wound not visualized. No obvious swelling or f luctuance noted. Labs: CBC with diff last 72 hours (or 3 results) Recent Labs 01/13/17 1546 01/14/17 0054 01/15/17 0030 WBC -- 8.70 10.08 HB -- 11.8* 11.9* HCT 36.0 36.0 37.0 PLT -- 257 237 Chemistries: Last 72 Hours (or 3 results): Recent Labs 01/13/17 1546 01/14/17 0054 01/14/17 0106 01/14/17 0729 01/15/17 0030 NA 142 -- 142 -- -- 142 K 3.0* -- 3.6 -- -- 3.3* CL 111* -- 109* -- -- 108 BICARB -- -- 23 -- -- 28 BUN -- -- 8 -- -- 9 CR -- -- 0.61 -- -- 0.72 GLU -- < > 108* 96 117* 102* CA -- -- 8.5* -- -- 8.4* MG -- -- 1.9 -- -- 2.3 PO4 -- -- 3.6 -- -- 2.6 < > = values in this interval not displayed. Current Medications: acetaminophen (TYLENOL) tablet 650 mg, 650 mg, oral, Q6H baclofen (LIORESAL) tablet 10 mg, 10 mg, oral, TID PRN baclofen (LIORESAL) tablet 15 mg, 15 mg, oral, HS bisacodyl (DULCOLAX) suppository 10 mg, 10 mg, rectal, DAILY PRN dextrose 50 % in water IV 25 mL, 25 mL, intravenous, PRN DULoxetine (CYMBALTA) capsule 60 mg, 60 mg, oral, DAILY enoxaparin (LOVENOX) injection 40 mg, 40 mg, subcutaneous, QPM gabapentin (NEURONTIN) capsule 300 mg, 300 mg, oral, TID glucagon (GLUCAGEN) injection 1 mg, 1 mg, intramuscular, PRN glucose chewable tablet 16 g, 16 g, oral, PRN glycopyrrolate (ROBINUL) injection 0.2 mg, 0.2 mg, intravenous, Q2H PRN HYDROmorphone (DILAUDID) tablet 2-6 mg, 2-6 mg, oral, Q3H PRN lidocaine (LIDODERM) 5 % patch 2 patch, 2 patch, transdermal, Q24H LORazepam (ATIVAN) tablet 0.5 mg, 0.5 mg, oral, Q6H PRN magnesium citrate liquid 296 mL, 296 mL, oral, DAILY PRN multivitamin (THERA VITAMIN) 1 tablet, 1 tablet, oral, DAILY [] ondansetron (ZOFRAN) injection 4 mg, 4 mg, intravenous, Q12H FOLLOWED BY onda nsetron (ZOFRAN) injection 4 mg, 4 mg, intravenous, Q12H PRN polyethylene glycol (MIRALAX) packet 17 g, 17 g, oral, BID polyethylene glycol (MIRALAX) packet 34 g, 34 g, oral, TID PRN potassium chloride SR (K-DUR) tablet 20 mEq, 20 mEq, oral, ONCE senna-docusate (SENOKOT S) 8.6-50 mg 4 tablet, 4 tablet, oral, BID traZODone (DESYREL) dose 75 mg, 75 mg, oral, HS PRN Impression: 26 yo female with history of low grade glioneuronal thoracic cord tumor s/p mul tiple resections (05/13/15, 09/09/15, 03/22/2016). Patient presented to OSH on 01/11/17 with repor ts of progressive RLE weakness and numbness since 01/10, fever at home to 103 on 01/10 and 1 epi sode of bladder incontinence. Total spine MRI on 01/11 showed no epidural abscess or other ne w compressive spinal lesion or evidence of disease progression. She is now s/p T8 and T9 prieto inectomies for resection of recurrent/residual intramedullary spinal cord tumor on 01/13/17. R LE strength improved, and new resolution of numbness on plantar surface of L foot. Wound int act. Plan: Neuro: Strength full in BLE. Pt encouraged by improvement in sensation to plantar aspect of L foot. Will continue to monitor for acute neurological changes. Continuing pain analgesia w/ PO dilaudid 2-6mg, APAP 650mg q6h, lidocaine patches. Trazodone qHS prn insomnia. Cont home gabapentin 300mg qAM and afternoon then increase evening dose to 600mg, Baclofen 10mg TID prn and 15mg qHS scheduled. Cont home cymbalta 60mg daily. Will continue low dose A tivan for anxiety. Wound: Okay to remove incisional dressing this afternoon, 01/15. Routine wound care. No oint ments or creams, please. Will remove wale at 2 weeks post-op. CV: HD stable. Will continue to monitor. Pulm: IS, cough/deep breath GI/diet: Regular diet, +anti-emetics, bowel regimen. LBM 01/12, no reported BM post-op. 01/15 K+ was 3.3 - will replete with K-Dur. : Daniels in place since OR on 01/13, pt wishes to keep in place until able to ambulate. Will plan to remove tomorrow, 01/16. Musculoskeletal/skin: Routine decubitus ulcer prevention, PT/OT eval and treat today 01/15. Endo: CBGs have all been reasonable. ID/Heme: Afebrile since admission on 01/11. DVT ppx: SCDs while in bed, ppx lovenox 40mg inj. qHS. Dispo: Pending results of PT/OT evals and possible rehab needs. Raegan Doss PA-C [facility] [address] [id number] [place] [address] Kaci Adorno M D - 01/14/2017 9:42 AM PDT . Neuroscience Intensive Care Unit Attending Progress Note Attending Pager #[phone] Documentation Date 01/13/17 1450 Day of Procedure 01/13/17 Spinal Procedures Spinal Procedures Spinal Procedures Posterior Instrumental Fusion Posterior Instrumental Fusion Lumbar Hospital admission dx: INTRINSIC SPINAL CORD TUMOR 1 Days in ICU 3 Days in Hospital Medical Decision Making Status posts thoracic laminectomy and tumor debulking/resection. Required durotomy. Contin ue bed rest for concern for CSF leak. Acute on chronic pain control: Will resume home oral h ydromorphone, limit IV breakthrough. Continue baclofen for spasticity. Passed for diet, adva nce as tolerated. Urinary retention keep Daniels. Constipation, aggressive bowel regimen. Hem atology consulted for concerns for coagulopathy, due to increased PEG study. All coagulopath y labs have returned back normal, likely due to a transient abnormality, no further workup p er heme. SCDs for DVT prophylaxis. Constitutional: She appears well-developed HENT: Head:normocephalic Neck: normal range of motion Cardiovascular: normal rate and regular rhythm Pulmonary: effort normal. Abdominal: Abdomen is soft. Skin: Skin is warm. vitals and nursing note reviewed. Physical exam She has normal language, normal speech, intact cranial nerves and normal and symmetric st rength in all extremities.She is alert She is oriented. Comments Mild paraparesis, 4+/5 stre ngth in lower extremities. Decreased light touch . Hospital Problems Priority POA Nervous Lower extremity weakness Yes Mental Health Anxiety Yes Other * (Principal)Thoracic spine tumor Yes At risk for constipation Yes At risk for venous thromboembolism Yes H/O urinary retention Unknown Chronic pain following surgery or procedure Unknown NSICU treatment team members Provider Role Specialty Ipt Neurosurgery #[id number] Treatment Team Neurological Surgery Ipt Critical Care Nsicu #[id number] Treatment Team -- Code Status Code Status Full Code The Advanced Care Note for this patient can be found under the notes tab in chart review. Quality section Daniels necessity reviewed: Acute urinary retention or obstruction I have spent a total of 35 minutes in the direct care and management of this patient indepe ndent of any time spent teaching or performing any separately billable procedures. I reviewe d the documented findings, all data and the recent imaging available. Greater than 50% of th is time was spent on counseling and coordination of care.Seen with PA/FLOOR MANAGER Ryan. Please see their note for details. I reviewed the documented findings, all data and the recent imaging available. Date of Service: 01/14/2017 Kaci Mon MD Author:Kaci Mon MD [address] [id number] signed by Kaci Mon MD at 01/14/2017 8:45 PM PDTLaChirag rebollar MD - 01/14/2017 9:03 AM PDTFormatting of this note might be different fr om the original. NEUROSURGERY PROGRESS NOTE Author: Chirag Aaron MD Today's Date: 01/14/2017 Attending Physician: Rajinder Luis MD INTERVAL UPDATE: OR yesterday for T8 and T9 laminectomies for resection of intramedullary tumor has return of sensation in left foot, slightly reduced sensation RLE OBJECTIVE: Last Vitals: BP 97/62 | Pulse 49 | Temp 36.6 C (97.9 F) | RR 14 | Ht 1.6 m (5' 3") | Wt 72.6 kg (160 lb 0.9 oz) | SpO2 100% | BMI 28.35 kg/(m^2) 24 Hour Vital Min/Max: Systolic (24hrs), Av , Min:97 , Max:127 Diastolic (24hrs), Av, Min:53, Max:81 Pulse Min: 43 Max: 94 Temp Min: 36.5 C (97.7 F) Max: 37.1 C (98.8 F) Resp Min: 11 Max: 18 SpO2 Min: 92 % Max: 100 % Intake/Output Summary (Last 24 hours) at 01/14/17 0903 Last data filed at 01/14/17 0800 Gross per 24 hour Intake 3624.17 ml Output 2270 ml Net 1354.17 ml CBC with diff last 72 hours (or 3 results) Lab Results Component Value Date WBC 8.70 01/14/2017 HB 11.8 01/14/2017 HCT 36.0 01/14/2017 PLT 257 01/14/2017 MCV 81.1 01/14/2017 RDW 42.4 01/14/2017 Chemistries: Last 72 Hours (or 3 results): Recent Labs 01/12/17 0603 01/13/17 1546 01/14/17 0054 01/14/17 0106 01/14/17 0729 NA 141 -- 142 -- 142 -- -- K 4.1 -- 3.0* -- 3.6 -- -- CL 110* -- 111* -- 109* -- -- BICARB 22 -- -- -- 23 -- -- BUN 5* -- -- -- 8 -- -- CR 0.72 -- -- -- 0.61 -- -- GLU 102* < > -- < > 108* 96 117* CA 9.2 -- -- -- 8.5* -- -- MG 2.3 -- -- -- 1.9 -- -- PO4 -- -- -- -- 3.6 -- -- < > = values in this interval not displayed. NEUROLOGICAL EXAM: Awake, alert, orient to self, [facility], and date Speech fluent, answers appropriately PERRL, EOMI Face symmetric, TML No pronator drift, no FTN dysmetria BUE full strength LLE 5/5 throughout RLE 5/5 HF/KF 4+/5 KE/DF/EHL/PF Sensation to light touch in patchy distribution, non-dermatomal Incision clean/dry/intact RADIOLOGY: No new films ASSESSMENT/PLAN: Qiana Fagan is a 26 y.o. female HD#3 who is now s/p 4 resections for a thoracic gli oneuronal tumor (05/13/15, 09/09/15, 03/22/16, and 01/13/17). Last surgery 01/13/17 she underwentT8 and T9 laminectomies for resection of intramedullary tumor. She presented with new onset RLE weakness with decreased sensation and coordination in setting of fever to 103. LLE strength at baseline, but has some return of sensaiton. Concern for tumor progression vs thoracic sp ine pathology. MRI total spine 01/11 with no epidural abscess or other new compressive spinal lesion and no evidence of disease progression. Exam improving - q1 neuro checks - Dressings to remain in place for 48 hours post op - keep dressings and incision C/D/I - Maintain adequate analgesia with goal RASS 0 - ADAT - PT/OT, Encourage mobilization - SCDs while in bed - flat until noon, then HOB>30, mobilize slowly - will discuss transfer status with staff on rounds Chirag Aaron MD Neurosurgery, PGY-2 On-call resident pager [phone] 9:03 AM 01/14/2017 ogbrian, Nay Alvarenga, [facility] - 01/14/2017 7:30 AM PDT . Neuroscience Intensive Care Unit Team Progress Note NSICU ASSIGNED #[id number] Documentation Date 01/13/17 1450 Day of Procedure 01/13/17 Spinal Procedures Spinal Procedures Spinal Procedures Posterior Instrumental Fusion Posterior Instrumental Fusion Lumbar Admission dx: INTRINSIC SPINAL CORD TUMOR 1 Days in ICU 3 Days in Hospital 24 hour events S/p T8 and T9 laminectomy for 4th resection of intramedullary tumor HOB flat until 1200 Sandhya dc'd Keep daniels until mobilizing Resumed home meds as appropriate Passed swallow; started diet PT/OT ordered for tomorrow Active Diagnosis with Assessment & Plan Priority Class POA Nervous Lower extremity weakness Yes Current Assessment & Plan -Baseline RLE weakness that is better post op -mobilize pt -PT eval and tx on Monday 01/15 Mental Health Anxiety Yes Current Assessment & Plan Continue Home lorazepam PRN for anxiety -continue Duloxetine Other * (Principal)Thoracic spine tumor Yes Current Assessment & Plan -Admit to NSICU; Dr. Michelle Luis primary. S/p T8 and T9 laminectomy for 4th resection of int ramedullary tumor -Q 1 hr neuro checks, vitals and peripheral neurovascular checks -No post op imaging per neurosurgery. -No steroids. -postop abx; Ancef q8h -SBP <160 with MAP>65 for adequate spinal perfusion -incisional wound care as per NSGY protocol. -at risk for CSF leak; monitor for s/s H/A, N/V, photophobia or neck pain> Keep flat/bedres t until noon on 01/14. At noon may raise HOB to 30 and mobilize as tolerated At risk for constipation Yes Overview Bowel reg Current Assessment & Plan -pt has hx of neurogenic bowel and states that she has significant constipation issues af ter each surgery. -continue aggressive bowel regimen -mobilize per NSGY -encourage PO fluids At risk for venous thromboembolism Yes Overview scd Current Assessment & Plan -mobilize pt as per Neurosurgery recs -SCD's to bilateral LE -PT eval post op day #1 -will discuss initiation of prophy lovenox with NSGY team H/O urinary retention Unknown Current Assessment & Plan -per pt hx of postop urinary retention and straight caths -keep daniels in until fully mobilizing Chronic pain following surgery or procedure Unknown Current Assessment & Plan -past medical hx of chronic pain in back and LE 2/2 intramedullary thoracic glial neurona l tumor s/p multiple resections in 05/23, 09/21, 03/24 and now 01/13/2017 -continue home meds; Baclofen HS and prn for muscle spasicity, Cymbalta and Gabapentin for neuropathic pain -acute postoperative pain> scheduled APAP, PO oxycodone prn, IV hydromorphone prn -01/14; dc IV hydromorphone> start PO dilaudid 2-4mg q3h prn pain -01/14; dc oxycodone; pt reports that it "has not worked" in the past Code Status Code Status Full Code The Advanced Care Note for this patient can be found under the notes tab in chart review. Constitutional: She appears well-developed and well-nourished not diaphoretic no distress HENT: Head:atraumatic Neck: normal range of motion neck supple Cardiovascular: normal rate, regular rhythm, normal heart sounds and intact distal pulses n o murmur heard.Exam reveals no friction rub and no gallop. Pulmonary: effort normal and breath sounds normal. She has no wheezesno rales No respirator y distress. Abdominal: Abdomen is soft. There is no tenderness She exhibits no distention. bowel soun ds are normal. Musculoskeletal: She exhibits no edema. Skin: Skin is warm and dry. no rash noted. No erythema. No pallor. Psychiatric: She has a normal mood and affect. Physical exam Comments A,A Ox4, speech clear and fluent, UE bilat 5/5 no paresthesias, bilat LE paresthe sujatha as baseline RLE; HF 3/5, KF 4/5, KE 4/5, DF 4+/5, PF 4+/5 LLE; HF 4+/5, KF 4+/5, KE 4+/5, DF 4+/5, PF 4+/5 RLE; decreased but intact sensation throughout LLE; new sensation to plantar foot, otherwise patchy throughout . NSICU treatment team members Provider Role Specialty Ipt Neurosurgery #[id number] Treatment Team Neurological Surgery Ipt Critical Care Nsicu #[id number] Treatment Team -- Patient Lines/Drains/Airways Status Active Lines, Drains and Airways Name: Placement date: Placement time: Site: Days: Peripheral IV Left Hand 16 g 01/13/17 1414 Hand less than 1 Incision Posterior spine- thoracic 03/22/16 298 Incision Posterior spine- thoracic 01/13/17 1521 less than 1 Urethral Catheter Daniels 16 Fr. 01/13/17 1420 Daniels less than 1 Quality section Daniels necessity reviewed: Acute urinary retention or obstruction; plan to dc later today wh en ambulating FAST HUG Feeding: regular Analgesia: multimodal Sedation: na Thromboprophylaxis: SCDs Head of Bed: Head of Bed Flat until 1200 Ulcer Prophylaxis: not clinically indicated Glycemic Control: not indicated I have spent a total of 55 Minutes independently in the direct care and management of th is patient.Time is independent of any time spent teaching or performing any separately billa ble procedures. I reviewed the documented findings, all data and the recent imaging availabl e. Date of Service: 01/14/2017 AIXA Sanders EPIC DEPARTMENT: [facility] ICU NEURO Place of Service:- Inpatient CSN: [id number] Suggested Modifier: None Suggested CPT: TO ENDLESS BELT FINISHER AIXA Orozco Author:AIXA Sanders [address] [place] [id number] signed by AIXA Orozco at 01/14/2017 11:26 AM Stephie Rodríguez MD - 01/13/2017 9:35 PM PDTFormatting of this note might be differen t from the original. . Neuroscience Intensive Care Unit Attending Progress Note Attending Pager #[phone] Documentation Date 01/13/17 1450 Day of Procedure 01/13/17 Spinal Procedures Spinal Procedures Spinal Procedures Posterior Instrumental Fusion Posterior Instrumental Fusion Lumbar Hospital admission dx: INTRINSIC SPINAL CORD TUMOR Days in ICU 2 Days in Hospital Medical Decision Making 26 yo woman with dural based tumor, s/p previous resection x3, now s/p T8-9 lami and tumor debulking and resection. On exam: AA and Ox4, FCs on AEs. R LE weaker 4/5, exam somewhat limited by pain, decreased sensation at about T7 level, more on left side A/Plan: Close neuro monitoring, per NSG request will remain flat for 24hrs, watch for CSF leak. Acu te pain control. Pt is not taking pain meds at home. Will restart home meds: cymbalta, gabap entin, baclofen at night. Maintain nomonatremia, euvolemic, SBP<160 mmHg. Bronchial hygiene. IS as jamarcus. Will follow morning labs cbc and renal function, UOP. Pt reports having retention postop be fore. GI: ADAT while flat, high aspiration risk, aggressive bowel regimen, Hx of constipation. SCDs prophy. vitals reviewed. Hospital Problems Priority POA Nervous * (Principal)Spinal cord tumor Unknown Other Thoracic spine tumor Unknown NSICU treatment team members Provider Role Specialty Ipt Neurosurgery #[id number] Treatment Team Neurological Surgery Ipt Critical Care Nsicu #[id number] Treatment Team -- Code Status Code Status Full Code The Advanced Care Note for this patient can be found under the notes tab in chart review. Quality section A-Line necessity reviewed: Plan to DC today Daniels necessity reviewed: Perioperative use I have spent a total of 28 minutes in the direct care and management of this patient indepe ndent of any time spent teaching or performing any separately billable procedures. I reviewe d the documented findings, all data and the recent imaging available. Greater than 50% of th is time was spent on counseling and coordination of care.Seen with PA/FLOOR MANAGER Yaz Eztonya. Please see their note for details. I reviewed the documented findings, all data and the recent shmuel ging available. Date of Service: 01/13/2017 [facility] DEPARTMENT: [facility] ICU NEURO Place of Service:- Inpatient CSN: [id number] Suggested Modifier: GC - Resident Involved Suggested CPT: TO ENDLESS BELT FINISHER Author:Stephie Anders MD [facility] [address] [place] [id number] signed by Stephie Anders MD at 01/13/2017 9:36 PM Chirag Reyna MD - 01/13/2017 8:22 PM PDTFormatting of this note might be different f rom the original. NEUROSURGERY POST OPERATIVE CHECK Author: Chirag Aaron MD Date: 01/13/17 PROCEDURE: T8 and T9 laminectomies for resection of intramedullary tumor S: Awake in PACU, painful, following commands VITAL SIGNS: Last Vitals: BP 125/76 | Pulse 63 | Temp 37.1 C (98.8 F) | RR 17 | Ht 1.6 m (5' 3") | W t 72.6 kg (160 lb 0.9 oz) | SpO2 98% | BMI 28.35 kg/(m^2) 24 Hour Vital Min/Max: Systolic (24hrs), Av , Min:104 , Max:127 Diastolic (24hrs), Av, Min:59, Max:79 Pulse Min: 57 Max: 94 Temp Min: 36.4 C (97.5 F) Max: 37.1 C (98.8 F) Resp Min: 14 Max: 18 SpO2 Min: 96 % Max: 100 % Intake/Output Summary (Last 24 hours) at 01/13/172021 Last data filed at 01/13/171923 Gross per 24 hour Intake 2482.5 ml Output 485 ml Net 1997.5 ml PHYSICAL EXAM FINDINGS: A&O to name, date, location; following commands, answering appropriately PERRL, EOMI, Conjugate gaze Face motor grossly intact; eyes close fully Motor: BUE 5/5 HF KF KE DF PF EHL R 4+ 4- 5 4+ 4+ 5 L 5 5 5 5 5 5 sensation intact in all extremities, gait not examined Wound with wale A/P: Neurologically stable. Continue care: - Neuro checks q 1 hour - Keep incision and dressings C/D/I. - Maintain adequate analgesia with goal RASS 0 - SBP 100-160 - ADAT - Utilize bowel regimen for goal 1 BM per 24 hours - SCDs while in bed - Flat until noon tomorrow, then HOB30, mobilize slowly Chirag Aaron MD Neurosurgery, PGY-2 On-call resident pager [phone] 8:22 PM 01/13/2017 Cesar Najera MD - 2016 8:26 AM PDT Neurosurgery Progress Note Hospital Day:2 Interval Hx: - No events overnight. - mixing study needed per heme c/s - techs who do this test will not be in until 9 AM today Last Vitals: BP 104/59 | Pulse 57 | Temp 36.5 C (97.7 F) | RR 16 | Ht 1.6 m (5' 3") | W t 72.6 kg (160 lb) | SpO2 99% | BMI 28.34 kg/(m^2) O2 Delivery Device: None (room air) (01/13/17 0747) 24 Hour Vital Min/Max: Systolic (24hrs), Av , Min:104 , Max:128 Diastolic (24hrs), Av, Min:59, Max:74Puls e Min: 76 Max: 90 Temp Min: 36.4 C (97.5 F) Max: 37 C (98.6 F) Resp Min: 14 Max: 19 SpO2 Min: 98 % Max: 100 % Intake/Output Summary (Last 24 hours) at 01/12/17 0842 Last data filed at 01/12/17 0600 Gross per 24 hour Intake 400 ml Output 450 ml Net -50 ml Exam: Alert, oriented x3. Speech clear, fluent. Pupils equal. EOMI. Face symmetric. Sensation: No sensation to touch to LLE throughout, baseline. Altered sensation to RLE throughout, new. BUE 5 HG, B, T Motor: HF KF KE DF PF R 4 4+ 4+ 4+ 4+ L 5 5 5 5 5 Labs: CBC with diff last 72 hours (or 3 results) Recent Labs 01/12/17 0603 WBC 6.86 HB 12.6 HCT 39.3 PLT 202 NEUTROPERC 78.5* LYMPHPERC 14.7* MONOPERC 5.8 BASOPERC 0.3 EOSPERC 0.1* Chemistries: Last 72 Hours (or 3 results): Recent Labs 01/12/17 0603 NA 141 K 4.1 CL 110* BICARB 22 BUN 5* CR 0.72 GLU 102* CA 9.2 MG 2.3 Current Medications: acetaminophen (TYLENOL) tablet 325-650 mg, 325-650 mg, oral, Q6H PRN baclofen (LIORESAL) tablet 10 mg, 10 mg, oral, TID PRN baclofen (LIORESAL) tablet 15 mg, 15 mg, oral, HS bisacodyl (DULCOLAX) suppository 10 mg, 10 mg, rectal, DAILY PRN dexamethasone (DECADRON) tablet 2 mg, 2 mg, oral, Q24H DULoxetine (CYMBALTA) capsule 60 mg, 60 mg, oral, DAILY gabapentin (NEURONTIN) capsule 300 mg, 300 mg, oral, TID LORazepam (ATIVAN) tablet 0.5 mg, 0.5 mg, oral, Q6H PRN magnesium citrate liquid 296 mL, 296 mL, oral, DAILY PRN multivitamin (THERA VITAMIN) 1 tablet, 1 tablet, oral, DAILY [] ondansetron (ZOFRAN) injection 4 mg, 4 mg, intravenous, Q12H FOLLOWED BY onda nsetron (ZOFRAN) injection 4 mg, 4 mg, intravenous, Q12H PRN oxyCODONE (immediate release) (ROXICODONE) tablet 5-15 mg, 5-15 mg, oral, Q3H PRN polyethylene glycol (MIRALAX) packet 17 g, 17 g, oral, BID polyethylene glycol (MIRALAX) packet 34 g, 34 g, oral, TID PRN senna-docusate (SENOKOT S) 8.6-50 mg 4 tablet, 4 tablet, oral, BID traZODone (DESYREL) dose 75 mg, 75 mg, oral, HS PRN Imaging: No results found for: CTHEAD EXAM: MRI cervical thoracic and lumbar spine with and without contrast HISTORY: 26 yo female 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 Last surgery 03/22/2016 she underwent RIGHT T8-T9 hemilaminectomy for resection of residual tumor. She presents with new onset RLE weakness with decreased sensation and coordi nation in setting of fever to 103. LLE at baseline and unchanged. Concern for tumor progress ion vs thoracic spine pathology. COMPARISON: Thoracic spine MRI 11/27/2016, spine radiograph 05/12/2015, MRI cervical spine TECHNIQUE: Multiplanar multi-sequence MRI cervical, thoracic and lumbar spine without and with gadolinium based intravenous contrast FINDINGS: CERVICAL: Alignment: Normal Marrow: Unremarkable Spinal cord: Normal Craniocervical junction: Normal No abnormal enhancement Posterior fossa: Visualized portions are unremarkable Paraspinal soft tissues: Unremarkable THORACIC: Alignment: Unchanged pronounced thoracic kyphosis, otherwise maintained. Marrow: Unremarkable Spinal cord: There is unchanged expansile T2 signal and heterogeneity from the T5-T10 l evel, with minimally decreased size of enhancing nodule within the spinal cord at the T8 lev el, now measuring 4 mm in length, previously 6 mm. No additional abnormal cord enhancement i s identified. No abnormal enhancement Paraspinal soft tissues: Unremarkable LUMBAR: Alignment: Normal Marrow: Unremarkable Conus: Unremarkable No abnormal enhancement Paraspinal soft tissues: Unremarkable IMPRESSION: 1. No epidural abscess or other new compressive spinal lesion. 2. No evidence of disease progression. Since 11/27/2016, further decrease in size of a T8 subcentimeter enhancing nodule in the thoracic spinal cord resection cavity. I have personally reviewed the images and, if necessary, edited the report. I agree with the report as now presented. 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 Last surgery 03/22/2016 she underwent RIGHT T8-T9 hemilaminectomy f or resection of residual tumor. Her last MRI was 11/27/2016. She presents with new onset RLE weakness with decreased sensation and coordination in setting of fever to 103. LLE at baseli ne and unchanged. Concern for tumor progression vs thoracic spine pathology. MRI total spine 01/11 with no epidural abscess or other new compressive spinal lesion and no evidence of dise ase progression. Exam stable Plan: Neuro: Neuro exam with baseline numbness to LLE, new altered sensation to RLE and new pain to RLE. - Pain well controlled with APAP, Baclofen, gabapentin, and Oxycodone. - Dexamethasone 2 mg Q24H. - Possible OR today for lower thoracic lamis - pending heme recs re:poss slow bleeding diat hesis. HEENT: No active issues. CV: HD stable. Pulm: IS, cough/deep breath GI/diet: NPO today for possible OR : Voiding independently. Musculoskeletal/skin: Routine decubitus ulcer prevention Endo: No active issues. ID/Heme: afebrile, no leukocytosis. - waiting for mixing studies per heme - will follow up once complete Rehab: PT/OT DVT ppx: SCDs while in bed, hold ppx lovenox Dispo: Pending hospital course Cesar Odonnell MD Neurosurgery PGY3 Chavo Robert MD - 01/12 11:03 PM PDTNeurosurgery Preoperative Note Planned procedure: Thoracic laminectomy redo resection of mass, possible Date of procedure: 01/13/2017 Booked? Yes Consented? Yes Marked? Yes NPO time: 01/13 00:15 Labs/Studies Hct: 39.3 Plt: 202 WBC: 6.86 Na: 141 K: 4.1 Type and Screen obtained? Yes If over 50, EKG obtained this admission (Yes/No/NA)? NA If over 50, CXR obtained this admission (Yes/No/NA)? NA Medications If on Lovenox, stopped the day prior to surgery (Yes/No/NA)? NA On ASA or other antiplatelet agent? No Chavo Penn MD Neurosurgery Resident 11:07 PM, 01/12/2017 Pager #[phone] Kacey Elizabeth P A-C - 01/12/2017 8:42 AM PDT Neurosurgery Progress Note Hospital Day:1 Author; Kacey Pimentel PA-C Attending Physician: Sascha Monk MD Interval Hx: - No events overnight. - Endorsing stable numbness to LLE, but new dullness/"weird sensation" to RLE throughout. S he states she is also having a new pain to RLE and finds it difficult to walk due to decreas ed proprioception. Last Vitals: BP 105/67 | Pulse 76 | Temp 36.9 C (98.4 F) | RR 16 | Wt 72.6 kg (160 lb) | SpO2 100% | BMI 28.34 kg/(m^2) O2 Delivery Device: None (room air) (01/11/17 2300) 24 Hour Vital Min/Max: Systolic (24hrs), Av , Min:105 , Max:124 Diastolic (24hrs), Av, Min:64, Max:75Puls e Min: 76 Max: 90 Temp Min: 36.4 C (97.5 F) Max: 37 C (98.6 F) Resp Min: 14 Max: 19 SpO2 Min: 98 % Max: 100 % Intake/Output Summary (Last 24 hours) at 01/12/17 0842 Last data filed at 01/12/17 0600 Gross per 24 hour Intake 400 ml Output 450 ml Net -50 ml Exam: Alert, oriented x3. Speech clear, fluent. Pupils equal. EOMI. Face symmetric. Sensation: No sensation to touch to LLE throughout, baseline. Altered sensation ("dulled") to RLE throughout, new. Motor: HF KF KE DF PF R 4- 4 4+ 4 5 L 5 5 5 5 5 Labs: CBC with diff last 72 hours (or 3 results) Recent Labs 01/12/17 0603 WBC 6.86 HB 12.6 HCT 39.3 PLT 202 NEUTROPERC 78.5* LYMPHPERC 14.7* MONOPERC 5.8 BASOPERC 0.3 EOSPERC 0.1* Chemistries: Last 72 Hours (or 3 results): Recent Labs 01/12/17 0603 NA 141 K 4.1 CL 110* BICARB 22 BUN 5* CR 0.72 GLU 102* CA 9.2 MG 2.3 Current Medications: acetaminophen (TYLENOL) tablet 325-650 mg, 325-650 mg, oral, Q6H PRN baclofen (LIORESAL) tablet 10 mg, 10 mg, oral, TID PRN baclofen (LIORESAL) tablet 15 mg, 15 mg, oral, HS bisacodyl (DULCOLAX) suppository 10 mg, 10 mg, rectal, DAILY PRN dexamethasone (DECADRON) tablet 2 mg, 2 mg, oral, Q24H DULoxetine (CYMBALTA) capsule 60 mg, 60 mg, oral, DAILY enoxaparin (LOVENOX) injection 40 mg, 40 mg, subcutaneous, QPM gabapentin (NEURONTIN) capsule 300 mg, 300 mg, oral, TID LORazepam (ATIVAN) tablet 0.5 mg, 0.5 mg, oral, Q6H PRN magnesium citrate liquid 296 mL, 296 mL, oral, DAILY PRN multivitamin (THERA VITAMIN) 1 tablet, 1 tablet, oral, DAILY ondansetron (ZOFRAN) injection 4 mg, 4 mg, intravenous, Q12H FOLLOWED BY ondansetron (Z OFRAN) injection 4 mg, 4 mg, intravenous, Q12H PRN oxyCODONE (immediate release) (ROXICODONE) tablet 5-15 mg, 5-15 mg, oral, Q3H PRN polyethylene glycol (MIRALAX) packet 17 g, 17 g, oral, BID polyethylene glycol (MIRALAX) packet 34 g, 34 g, oral, TID PRN senna-docusate (SENOKOT S) 8.6-50 mg 4 tablet, 4 tablet, oral, BID traZODone (DESYREL) dose 75 mg, 75 mg, oral, HS PRN Imaging: No results found for: CTHEAD EXAM: MRI cervical thoracic and lumbar spine with and without contrast HISTORY: 26 yo female 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 Last surgery 03/22/2016 she underwent RIGHT T8-T9 hemilaminectomy for resection of residual tumor. She presents with new onset RLE weakness with decreased sensation and coordi nation in setting of fever to 103. LLE at baseline and unchanged. Concern for tumor progress ion vs thoracic spine pathology. COMPARISON: Thoracic spine MRI 11/27/2016, spine radiograph 05/12/2015, MRI cervical spine TECHNIQUE: Multiplanar multi-sequence MRI cervical, thoracic and lumbar spine without and with gadolinium based intravenous contrast FINDINGS: CERVICAL: Alignment: Normal Marrow: Unremarkable Spinal cord: Normal Craniocervical junction: Normal No abnormal enhancement Posterior fossa: Visualized portions are unremarkable Paraspinal soft tissues: Unremarkable THORACIC: Alignment: Unchanged pronounced thoracic kyphosis, otherwise maintained. Marrow: Unremarkable Spinal cord: There is unchanged expansile T2 signal and heterogeneity from the T5-T10 l evel, with minimally decreased size of enhancing nodule within the spinal cord at the T8 lev el, now measuring 4 mm in length, previously 6 mm. No additional abnormal cord enhancement i s identified. No abnormal enhancement Paraspinal soft tissues: Unremarkable LUMBAR: Alignment: Normal Marrow: Unremarkable Conus: Unremarkable No abnormal enhancement Paraspinal soft tissues: Unremarkable IMPRESSION: 1. No epidural abscess or other new compressive spinal lesion. 2. No evidence of disease progression. Since 11/27/2016, further decrease in size of a T8 subcentimeter enhancing nodule in the thoracic spinal cord resection cavity. I have personally reviewed the images and, if necessary, edited the report. I agree with the report as now presented. 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 Last surgery 03/22/2016 she underwent RIGHT T8-T9 hemilaminectomy f or resection of residual tumor. Her last MRI was 11/27/2016. She presents with new onset RLE weakness with decreased sensation and coordination in setting of fever to 103. LLE at baseli ne and unchanged. Concern for tumor progression vs thoracic spine pathology. MRI total spine 01/11 with no epidural abscess or other new compressive spinal lesion and no evidence of dise ase progression. Exam remains stable compared to initial ED exam. Plan: Neuro: Neuro exam with baseline numbness to LLE, new altered sensation to RLE and new pain to RLE. - Pain well controlled with APAP, Baclofen, gabapentin, and Oxycodone. - Dexamethasone 2 mg Q24H. - T/L xray's today for pre-surgical planning. HEENT: No active issues. CV: HD stable. Pulm: IS, cough/deep breath GI/diet: Regular diet. Anti-emetics PRN. Bowel regimen. : Voiding independently. Musculoskeletal/skin: Routine decubitus ulcer prevention Endo: No active issues. ID/Heme: afebrile, no leukocytosis. - INR, APTT, and Fibrinogen elevated in pre-operative labs. Will repeat, if abnormal again will discuss with Hematology today. Rehab: PT/OT DVT ppx: SCDs while in bed; PPX Lovenox injections (will need to hold Saturday 01/13 dose). Dispo: Pending hospital course - plan for OR on 01/14 for tumor resection. Kacey Pimentel PA-C [facility] [address] [place] [id number] Chavo Robert MD - 01/11/2017 9:27 PM PDT Brief Neurosurgery Progress Note 9:27 PM 01/11/17 Interval Update: - MRI Total spine wwo reviewed, no epidural abscess or other new compressive spinal lesion, no evidence of disease progression. - Patient up walking to bathroom with assistance, able to stand on tip toes bilaterally Examined patient at 4:30PM Exam: Awake, alert, normal mentation, normal speech Following commands, answering questions appropriately PERRL, EOMI, conjugate gaze, no ptosis Face sensation intact V1-3, symmetric motor function Hearing grossly intact to conversation Shrugs shoulders bilaterally Tongue midline No pronator drift Delt Bi Tri Powerhouse Oiler HF KE KF DF PF Left 5 5 5 5 5 5 5 5 5 Right 5 5 5 5 4+ 5 4 5 5 Decreased sensation in BLE LLE sensation at baseline, no changes RLE worsening decreased sensation from baseline Assessment: Qiana Fagan is a 26 yo female 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 Last surgery 03/22/2016 she underwent RIGHT T8-T9 hemilaminectomy f or resection of residual tumor. Her last MRI was 11/27/2016. She presents with new onset RLE weakness with decreased sensation and coordination in setting of fever to 103. LLE at baseli ne and unchanged. Concern for tumor progression vs thoracic spine pathology. MRI total spine today with no epidural abscess or other new compressive spinal lesion and no evidence of di sease progression. Exam remains stable compared to initial ED exam. Plan: - Admit to hospital overnight observation - Neuro checks q4 hrs - For exam change text or page - Will hold on steroids for now Chavo Penn MD Neurosurgery Resident Pager #[phone] signed by Chavo Penn MD at 01/11/2017 9:57 PM PDTdocumente d in this encounter Plan of Treatment Not on filedocumented as of this encounter Procedures + +--------+ + + + | Procedure Name | Priori | Date/Time | Associated Diagnosis | Comments | | | ty | | | | + +--------+ + + + | CBC (HEMOGRAM) ONLY | Urgent | 01/18/2017 | | Results for this | | | | 6:35 AM | | procedure are in the | | | | PDT | | results section. | + +--------+ + + + | RENAL FUNCTION SET | Urgent | 01/18/2017 | | Results for this | | (NA,K,CL,CO2,BUN,CRE | | 6:35 AM | | procedure are in the | | AT,GLUC,CA,PHOS,ALB | | PDT | | results section. | | ) | | | | | + +--------+ + + + | CBC ONLY | Urgent | 01/18/2017 | | Results for this | | | | 6:35 AM | | procedure are in the | | | | PDT | | results section. | + +--------+ + + + | CBC (HEMOGRAM) ONLY | Urgent | 01/17/2017 | | Results for this | | | | 6:34 AM | | procedure are in the | | | | PDT | | results section. | + +--------+ + + + | RENAL FUNCTION SET | Urgent | 01/17/2017 | | Results for this | | (NA,K,CL,CO2,BUN,CRE | | 6:34 AM | | procedure are in the | | AT,GLUC,CA,PHOS,ALB | | PDT | | results section. | | ) | | | | | + +--------+ + + + | CBC ONLY | Urgent | 01/17/2017 | | Results for this | | | | 6:34 AM | | procedure are in the | | | | PDT | | results section. | + +--------+ + + + | CBC (HEMOGRAM) ONLY | Urgent | 01/16/2017 | | Results for this | | | | 7:14 AM | | procedure are in the | | | | PDT | | results section. | + +--------+ + + + | RENAL FUNCTION SET | Urgent | 01/16/2017 | | Results for this | | (NA,K,CL,CO2,BUN,CRE | | 7:14 AM | | procedure are in the | | AT,GLUC,CA,PHOS,ALB | | PDT | | results section. | | ) | | | | | + +--------+ + + + | CBC ONLY | Urgent | 01/16/2017 | | Results for this | | | | 7:14 AM | | procedure are in the | | | | PDT | | results section. | + +--------+ + + + | PROCEDURE NOTE | Routin | 01/15/2017 | | Results for this | | | e | 7:18 PM | | procedure are in the | | | | PDT | | results section. | + +--------+ + + + | OPERATION RECORD | | 01/15/2017 | | Results for this | | | | 8:11 AM | | procedure are in the | | | | PDT | | results section. | + +--------+ + + + | CBC (HEMOGRAM) ONLY | Urgent | 01/15/2017 | | Results for this | | | | 12:30 AM | | procedure are in the | | | | PDT | | results section. | + +--------+ + + + | RENAL FUNCTION SET | Urgent | 01/15/2017 | | Results for this | | (NA,K,CL,CO2,BUN,CRE | | 12:30 AM | | procedure are in the | | AT,GLUC,CA,PHOS,ALB | | PDT | | results section. | | ) | | | | | + +--------+ + + + | CBC ONLY | Urgent | 01/15/2017 | | Results for this | | | | 12:30 AM | | procedure are in the | | | | PDT | | results section. | + +--------+ + + + | MAGNESIUM, PLASMA | Urgent | 01/15/2017 | | Results for this | | | | 12:30 AM | | procedure are in the | | | | PDT | | results section. | + +--------+ + + + | CAPILLARY BLOOD | Routin | 01/14/2017 | Spinal cord tumor | Results for this | | GLUCOSE (NO CHG), | e | 7:29 AM | | procedure are in the | | POC | | PDT | | results section. | + +--------+ + + + | CAPILLARY BLOOD | Routin | 01/14/2017 | Spinal cord tumor | Results for this | | GLUCOSE (NO CHG), | e | 1:06 AM | | procedure are in the | | POC | | PDT | | results section. | + +--------+ + + + | CBC (HEMOGRAM) ONLY | Urgent | 01/14/2017 | | Results for this | | | | 12:54 AM | | procedure are in the | | | | PDT | | results section. | + +--------+ + + + | RENAL FUNCTION SET | Urgent | 01/14/2017 | | Results for this | | (NA,K,CL,CO2,BUN,CRE | | 12:54 AM | | procedure are in the | | AT,GLUC,CA,PHOS,ALB | | PDT | | results section. | | ) | | | | | + +--------+ + + + | CBC ONLY | Urgent | 01/14/2017 | | Results for this | | | | 12:54 AM | | procedure are in the | | | | PDT | | results section. | + +--------+ + + + | MAGNESIUM, PLASMA | Urgent | 01/14/2017 | | Results for this | | | | 12:54 AM | | procedure are in the | | | | PDT | | results section. | + +--------+ + + + | CAPILLARY BLOOD | Routin | 01/13/2017 | Spinal cord tumor | Results for this | | GLUCOSE (NO CHG), | e | 7:38 PM | | procedure are in the | | POC | | PDT | | results section. | + +--------+ + + + | PROCEDURE NOTE | Routin | 01/13/2017 | | Results for this | | | e | 7:17 PM | | procedure are in the | | | | PDT | | results section. | + +--------+ + + + | ABG-FULL ABL, POC | Urgent | 01/13/2017 | Spinal cord tumor | Results for this | | | | 3:46 PM | | procedure are in the | | | | PDT | | results section. | + +--------+ + + + | X-RAY SPINE | Urgent | 01/13/2017 | | Results for this | | THORACOLUMBAR 1 VIEW | | 3:11 PM | | procedure are in the | | | | PDT | | results section. | + +--------+ + + + | X-RAY FLUOROSCOPY | Urgent | 01/13/2017 | | Results for this | | <=1 HOUR | | 3:05 PM | | procedure are in the | | | | PDT | | results section. | + +--------+ + + + | THORACIC LAMINECTOMY | | 01/13/2017 | INTRINSIC SPINAL | | | | | 2:02 PM | CORD TUMOR | | | | | PDT | | | + +--------+ + + + +---+--------+ | | | | | Specia | | | l | | | Needs | | | ICU | | | POST-N | | | SICU | | | TEAM | +---+--------+ + +--------+ + + + | CAPILLARY BLOOD | Routin | 01/13/2017 | Spinal cord tumor | Results for this | | GLUCOSE (NO CHG), | e | 1:27 PM | | procedure are in the | | POC | | PDT | | results section. | + +--------+ + + + | PRODUCT - FRESH | Routin | 01/13/2017 | | Results for this | | FROZEN PLASMA | e | 12:57 PM | | procedure are in the | | | | PDT | | results section. | + +--------+ + + + | PRODUCT - FRESH | Routin | 01/13/2017 | | Results for this | | FROZEN PLASMA | e | 12:57 PM | | procedure are in the | | | | PDT | | results section. | + +--------+ + + + | THROMBELASTOGRAPH, | Routin | 01/13/2017 | | Results for this | | POC | e | 12:36 PM | | procedure are in the | | | | PDT | | results section. | + +--------+ + + + | APTT 1:1 MIX, PLASMA | Routin | 01/13/2017 | | Results for this | | | e | 10:57 AM | | procedure are in the | | | | PDT | | results section. | + +--------+ + + + | COAGULOPATHY PANEL | Urgent | 01/13/2017 | | Results for this | | (INR,APTT,FIBRINOGEN | | 10:03 AM | | procedure are in the | | ) | | PDT | | results section. | + +--------+ + + + | CT SPINE THORACIC WO | Routin | 01/13/2017 | | Results for this | | CONTRAST | e | 2:10 AM | | procedure are in the | | | | PDT | | results section. | + +--------+ + + + | INTRAOPERATIVE NEURO | Routin | 01/13/2017 | | Results for this | | MONITORING | e | | | procedure are in the | | | | | | results section. | + +--------+ + + + | SURGICAL PATHOLOGY | Routin | 01/13/2017 | | Results for this | | | e | | | procedure are in the | | | | | | results section. | + +--------+ + + + | APTT 1:1 MIX, PLASMA | Urgent | 01/12/2017 | | Results for this | | | | 9:38 PM | | procedure are in the | | | | PDT | | results section. | + +--------+ + + + | COAGULOPATHY PANEL | Routin | 01/12/2017 | | Results for this | | (INR,APTT,FIBRINOGEN | e | 1:03 PM | | procedure are in the | | ) | | PDT | | results section. | + +--------+ + + + | X-RAY SPINE | Routin | 01/12/2017 | | Results for this | | LUMBOSACRAL 2 VIEWS | e | 11:47 AM | | procedure are in the | | | | PDT | | results section. | + +--------+ + + + | X-RAY SPINE THORACIC | Routin | 01/12/2017 | | Results for this | | 2 VIEWS | e | 11:47 AM | | procedure are in the | | | | PDT | | results section. | + +--------+ + + + | CBC AND AUTO DIFF | Routin | 01/12/2017 | | Results for this | | | e | 6:03 AM | | procedure are in the | | | | PDT | | results section. | + +--------+ + + + | CBC, WITH | Routin | 01/12/2017 | | Results for this | | DIFFERENTIAL | e | 6:03 AM | | procedure are in the | | | | PDT | | results section. | + +--------+ + + + | COMPLETE METABOLIC | Routin | 01/12/2017 | | Results for this | | SET | e | 6:03 AM | | procedure are in the | | (NA,K,CL,CO2,BUN,CRE | | PDT | | results section. | | AT,GLUC,CA,AST,ALT,B | | | | | | ZEV TOTAL,ALK | | | | | | PHOS,ALB,PROT TOTAL) | | | | | + +--------+ + + + | C-REACTIVE PROTEIN | Routin | 01/12/2017 | | Results for this | | | e | 6:03 AM | | procedure are in the | | | | PDT | | results section. | + +--------+ + + + | SEDIMENTATION RATE | Routin | 01/12/2017 | | Results for this | | | e | 6:03 AM | | procedure are in the | | | | PDT | | results section. | + +--------+ + + + | COAGULOPATHY PANEL | Routin | 01/12/2017 | | Results for this | | (INR,APTT,FIBRINOGEN | e | 6:03 AM | | procedure are in the | | ) | | PDT | | results section. | + +--------+ + + + | ANTIBODY SCREEN | Routin | 01/12/2017 | | Results for this | | | e | 6:03 AM | | procedure are in the | | | | PDT | | results section. | + +--------+ + + + | TYPE AND SCREEN | Routin | 01/12/2017 | | Results for this | | | e | 6:03 AM | | procedure are in the | | | | PDT | | results section. | + +--------+ + + + | ABO & RH TYPE | Routin | 01/12/2017 | | Results for this | | | e | 6:03 AM | | procedure are in the | | | | PDT | | results section. | + +--------+ + + + | MAGNESIUM, PLASMA | Routin | 01/12/2017 | | Results for this | | | e | 6:03 AM | | procedure are in the | | | | PDT | | results section. | + +--------+ + + + | URINE CULTURE WORKUP | Routin | 01/11/2017 | | Results for this | | | e | 11:10 PM | | procedure are in the | | | | PDT | | results section. | + +--------+ + + + | CULTURE, URINE [facility] | Routin | 01/11/2017 | | Results for this | | | e | 11:10 PM | | procedure are in the | | | | PDT | | results section. | + +--------+ + + + | UA, DIPSTICK ONLY | Routin | 01/11/2017 | | Results for this | | | e | 11:10 PM | | procedure are in the | | | | PDT | | results section. | + +--------+ + + + | URINE, MICROSCOPIC | Routin | 01/11/2017 | | Results for this | | EXAM | e | 11:10 PM | | procedure are in the | | | | PDT | | results section. | + +--------+ + + + | URINE SCREEN FOR | Routin | 01/11/2017 | | Results for this | | CULTURE | e | 11:10 PM | | procedure are in the | | | | PDT | | results section. | + +--------+ + + + | MRI SPINE TOTAL WWO | Urgent | 01/11/2017 | | Results for this | | CONTRAST | | 2:01 PM | | procedure are in the | | | | PDT | | results section. | + +--------+ + + + | ED INFORMATION | Routin | 01/11/2017 | | Results for this | | EXCHANGE | e | 8:38 AM | | procedure are in the | | | | PDT | | results section. | + +--------+ + + + documented in this encounter Results CBC (HEMOGRAM) ONLY (01/18/2017 6:35 AM PDT) + + + + + + | Component | Value | Ref Range | Performed | Pathologist | | | | | At | Signature | + + + + + + | WHITE CELL | 7.96 | 3.50 - 10.80 | [facility] | [...] + + + + | HEMOGLOBIN | 11.5 (L) | 12.0 - 16.0 | [facility] | | | | | g/dL | LABORATORY | | | | | | SERVICES, | | | | | | CORE | | + + + + + + | HEMATOCRIT | 36.5 | 36.0 - 46.0 % | [facility] | | | | | | LABORATORY | | | | | | SERVICES, | | | | | | CORE | | + + + + + + | MCV | 83.7 | 80.0 - 96.0 fL | [facility] [...] + + + | RDW SD | 42.8 | 35.1 - 46.3 fL | [facility] | | | | | | LABORATORY | | | | | | SERVICES, | | | | | | CORE | | + + + + + + | PLATELET | 319 | 150 - 400 K/cu | [facility] | | | COUNT | | mm | LABORATORY | | | | | | SERVICES, | | | | | | CORE | | + + + + + + | MPV | 10.2 | 9.7 - 12.3 fL | [facility] [...] + + | [facility] | [address] | [place] [address] | | | SERVICES, CORE | [address] | | | + + + + + RENAL FUNCTION SET (NA,K,CL,CO2,BUN,CREAT,GLUC,CA,PHOS,ALB ) (01/18/2017 6:35 AM PDT) + +---------+ + + + | Component | Value | Ref Range | Performed | Pathologist | | | | | At | Signature | + +---------+ + + + | GLUCOSE, | 90 | 70 - 99 mg/dL | [facility] [...] +---------+ + + + | CREATININE | 0.61 | 0.60 - 1.10 | [facility] | | | PLASMA | | mg/dL | LABORATORY | | | (LAB) | | | SERVICES, | | | | | | CORE | | + +---------+ + + + | EGFR | >60 | >60 mL/min | [facility] | | | - | | | LABORATORY | | | [facility] | | | SERVICES, | | | [...] +---------+ + + + | CHLORIDE, | 102 [...] +---------+ + + + | CALCIUM, | 9.1 | 8.6 - 10.2 | [facility] | | | PLASMA | | mg/dL | LABORATORY | | | (LAB) | | | SERVICES, | | | | | | CORE | | + +---------+ + + + | CALCIUM(ALB | 10.1 | 8.6 - 10.2 | [facility] | | | CORRECTED) | | mg/dL | LABORATORY | | | | | | SERVICES, | | | | | | CORE | | + +---------+ + + + | ALBUMIN, | 2.8 (L) | 3.5 - 4.7 g/dL | [facility] | | | PLASMA | | | LABORATORY | | | (LAB) | | | SERVICES, | | | | | | CORE | | + +---------+ + + + | PHOSPHORUS, | 3.5 | 2.4 - 4.7 mg/dL | [facility] [...] + | ANION GAP | 7 | mmol/L | [facility] | | | [...] Performed At | + + + | Adult glucose reference range change effective 7-12-17. GFR is | [facility] | | estimated using the MDRD equation recommended by the National Kidney | LABORATORY | | Disease Education Program. Estimated GFR Interpretive Information: | HORACIO, CORE | | <60 mL/min/1.73 sq m Chronic Kidney Disease | | | <15 mL/min/1.73 sq m Kidney Failure Estimated | | | GFR greater that 60 mL/min/1.73 sq m is of limited clinical value. | | | The MDRD equation is not valid in the following situations: - | | | Patients under 18 years of age - Severe malnutrition or obesity - | | | Vegetarian diet - Rapidly changing kidney function | | + + + + + + + + | Performing | Address | City/State/Zipcode | Phone Number | | Organization | | | | + + + + + | [facility] | [address] | [place] [address] | | | HORACIO, CORE | [address] | | | + + + + + CBC (HEMOGRAM) ONLY (01/17/2017 6:34 AM PDT) + +-------+ + + + | Component | Value | Ref Range | Performed | Pathologist | | | | | At | Signature | + +-------+ + + + | WHITE CELL | 8.18 | 3.50 - 10.80 | [facility] | | | COUNT | | K/cu mm | LABORATORY | | | | | | SERVICES, | | | | | | CORE | | + +-------+ + + + | RED CELL | 4.73 | 4.00 - 5.20 | [facility] | | | COUNT | | M/cu mm | LABORATORY | | | | | | SERVICES, | | | | | | CORE | | + +-------+ + + + | HEMOGLOBIN | 12.6 | 12.0 - 16.0 | [facility] | | | | | g/dL | LABORATORY | | | | | | SERVICES, | | | | | | CORE | | + +-------+ + + + | HEMATOCRIT | 39.2 | 36.0 - 46.0 % | [facility] | | | | | | LABORATORY | | | | | | SERVICES, | | | | | | CORE | | + +-------+ + + + | MCV | 82.9 | 80.0 - 96.0 fL | [facility] | | | | | | LABORATORY | | | | | | SERVICES, | | | | | | CORE | | + +-------+ + + + | MCHC | 32.1 | 33.0 - 35.5 | [facility] | | | | | g/dL | LABORATORY | | | | | | SERVICES, | | | | | | CORE | | + +-------+ + + + | RDW SD | 41.9 | 35.1 - 46.3 fL | [facility] | | | | | | LABORATORY | | | | | | SERVICES, | | | | | | CORE | | + +-------+ + + + | PLATELET | 290 | 150 - 400 K/cu | [facility] | | | COUNT | | mm | LABORATORY | | | | | | SERVICES, | | | | | | CORE | | + +-------+ + + + | MPV | 10.3 | 9.7 - 12.3 fL | [facility] | | | | | | LABORATORY | | | | | | SERVICES, | | | | | | CORE | | + +-------+ + + + | NRBC% | 0.0 | 0.0 - 0.3 % | [facility] | | | | | | LABORATORY | | | | | | SERVICES, | | | | | | CORE | | + +-------+ + + + | NRBC# | 0.00 [...] | + + + + + | [facility] [employer] | [address] | [place] [address] | | | SERVICES, CORE | [address] | | | + + + + + RENAL FUNCTION SET (NA,K,CL,CO2,BUN,CREAT,GLUC,CA,PHOS,ALB ) (01/17/2017 6:34 AM PDT) + + + + + + | Component | Value | Ref Range | Performed | Pathologist | | | | | At | Signature | + + + + + + | GLUCOSE, | 84 | 60 - 99 mg/dL | [facility] [...] + + + + | CREATININE | 0.61 | 0.60 - 1.10 | [facility] | | | PLASMA | | mg/dL | LABORATORY | | | (LAB) | | | SERVICES, | | | | | | CORE | | + + + + + + | EGFR | >60 | >60 mL/min | [facility] | | | - | | | LABORATORY | | | [facility] | | | SERVICES, | | | [...] + + + + | POTASSIUM, | 4.5 | 3.4 - 5.0 | [facility] | [...] + + + + | CALCIUM, | 9.7 | 8.6 - 10.2 | [facility] | | | PLASMA | | mg/dL | LABORATORY | | | (LAB) | | | SERVICES, | | | | | | CORE | | + + + + + + | CALCIUM(ALB | 10.3 (H) | 8.6 - 10.2 | [facility] | [...] + | ANION GAP | 6 | mmol/L | [facility] | | | [...] [facility] | [address] | [place] [address] | | | SERVICES, CORE | [address] | | | + + + + + CBC (HEMOGRAM) ONLY (01/16/2017 7:14 AM PDT) + +-------+ + + + | Component | Value | Ref Range | Performed | Pathologist | | | | | At | Signature | + +-------+ + + + | WHITE CELL | 9.16 | 3.50 - 10.80 | [facility] | | | COUNT | | K/cu mm | LABORATORY | | | | | | SERVICES, | | | | | | CORE | | + +-------+ + + + | RED CELL | 4.56 | 4.00 - 5.20 | [facility] | | | COUNT | | M/cu mm | LABORATORY | | | | | | SERVICES, | | | | | | CORE | | + +-------+ + + + | HEMOGLOBIN | 12.0 | 12.0 - 16.0 | [facility] | | | | | g/dL | LABORATORY | | | | | | SERVICES, | | | | | | CORE | | + +-------+ + + + | HEMATOCRIT | 37.4 | 36.0 - 46.0 % | [facility] | | | | | | LABORATORY | | | | | | SERVICES, | | | | | | CORE | | + +-------+ + + + | MCV | 82.0 | 80.0 - 96.0 fL | [facility] | | | | | | LABORATORY | | | | | | SERVICES, | | | | | | CORE | | + +-------+ + + + | MCHC | 32.1 | 33.0 - 35.5 | [facility] | | | | | g/dL | LABORATORY | | | | | | SERVICES, | | | | | | CORE | | + +-------+ + + + | RDW SD | 42.4 | 35.1 - 46.3 fL | [facility] | | | | | | LABORATORY | | | | | | SERVICES, | | | | | | CORE | | + +-------+ + + + | PLATELET | 249 | 150 - 400 K/cu | [facility] | | | COUNT | | mm | LABORATORY | | | | | | SERVICES, | | | | | | CORE | | + +-------+ + + + | MPV | 10.5 | 9.7 - 12.3 fL | [facility] | | | | | | LABORATORY | | | | | | SERVICES, | | | | | | CORE | | + +-------+ + + + | NRBC% | 0.0 | 0.0 - 0.3 % | [facility] | | | | | | LABORATORY | | | | | | SERVICES, | | | | | | CORE | | + +-------+ + + + | NRBC# | 0.00 [...] LABORATORY | [address] | [place] [address] | | | SERVICES, CORE | [address] | | | + + + + + RENAL FUNCTION SET (NA,K,CL,CO2,BUN,CREAT,GLUC,CA,PHOS,ALB ) (01/16/2017 7:14 AM PDT) + +---------+ + + + [...] | | | LABORATORY | | | [facility] | | | SERVICES, | | | [...] +---------+ + + + | CHLORIDE, | 102 [...] +---------+ + + + | CALCIUM, | 9.1 | 8.6 - 10.2 | [facility] | | | PLASMA | | mg/dL | LABORATORY | | | (LAB) | | | SERVICES, | | | | | | CORE | | + +---------+ + + + | CALCIUM(ALB | 9.9 | 8.6 - 10.2 | [facility] | | | CORRECTED) | | mg/dL | LABORATORY | | | | | | SERVICES, | | | | | | CORE | | + +---------+ + + + | ALBUMIN, | 3.0 (L) | 3.5 - 4.7 g/dL | [facility] | | | PLASMA | | | LABORATORY | | | (LAB) | | | SERVICES, | | | | | | CORE | | + +---------+ + + + | PHOSPHORUS, | 3.8 [...] + | ANION GAP | 4 | mmol/L | [facility] | | | | | | LABORATORY | | | | | | SERVICES, | | | | | | CORE | | + +---------+ + + + | ANION | 6 | 4 - 11 mmol/L [...] | + + + + + | [facility] | [address] | [place] [address] | | | SERVICES, CORE | [address] | | | + + + + + PROCEDURE NOTE (01/15/2017 7:18 PM PDT)OPERATION RECORD (01/15/2017 8:11 AM PDT) + + | Procedure Note | + + | Rajinder Luis MD - 01/13/2017 8:53 PM PDT Date of Service: 01/13/2017 Attending | | Surgeon: Rajinder Luis MD Security Public Safety Officer(s): Joby Thibodeaux | | . 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 T8 and T9 laminectomies for resection of intramedullary tumor.2. Use of | | operative microscope.3. Fluoroscopy with interpretation.4. Neuromonitoring with | | somatosensory evoked potential and motor evoked potentials.5. Use of ultrasound with | | interpretation.Estimated Blood Loss: 15 mL.Specimens: Thoracic intramedullary | | tumor.Complications: None.Drains: Daniels catheter. 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 She has had 3 prior resections; May 13, 2015, September 09, 2015, | | and March 22, 2016. She presented on this admission with worsening right lower | | extremity function as well as decreased sensation in the right lower extremity. An MRI | | was obtained, which appeared to have little interval change compared to the prior study, | | however there was concern for possible expansion of the cystic components cranial and | | caudal to the tumor. We were concerned that this was obstructing CSF flow through the | | central canal and accumulating pressure in there, leading to the symptoms. Given the | | constellation of clinical and radiographic findings, she was indicated for the procedure | | above.Procedure In Detail: Prior to beginning the procedure, the patient was properly | | identified. A signed consent form was obtained. The patient was transported to the | | operating room on a hospital gurney. General endotracheal anesthesia was induced by the | | Anesthesia team and Neuromonitoring team attached the necessary equipment to perform | | monitoring of motor-evoked potentials and somatosensory-evoked potentials. A Daniels | | catheter was placed and the eyes were taped shut to avoid corneal abrasion. The patient | | was then transported to a prone position on a Hair OSI table. All pressure points | | were carefully padded. We identified the prior thoracic incision from her prior | | surgeries. Fluoroscopy was then used to plan an incision from T7 to T10. We did not | | use fluoroscopy for the remainder of the case because we knew that there was a complete | | spinous process at T9 which we could reveal intraoperatively and use to gauge our | | further surgery. Once the incision was planned, the area was prepped and draped in the | | usual sterile fashion. A time-out was held and the patient received preoperative | | antibiotics. The procedure was begun under headlight illumination and loupe | | magnification. The incision was opened with a 10 blade scalpel. Dissection was then | | carried down with monopolar electrocautery, down to the level of the T9 spinous process. | | We then performed a subperiosteal dissection to expose the T9 spinous process as well | | as the remaining portion of the lamina at T8. More cranial to T8 we saw that there was | | a bony defect from the prior laminectomies. We then used a high-speed drill with a | | matchstick drill bit to complete a laminectomy at T8 as well as at T9 after first | | removing the spinous process with a Leksell rongeur. We then resected the scar tissue | | and ligament using a Kerrison rongeur as well as curettes to free the ligament from the | | surrounding tissue. In this manner, we revealed the thecal sac. There appeared to be | | multiple layers of scar tissue surrounding the thecal sac. At this point, the operative | | microscope was brought onto the field. Prior to opening the dura we confirmed our | | location using ultrasound. Under a high-powered microscope field, we then opened the | | thecal sac with an 11 blade scalpel in a craniocaudal fashion. There were a few layers | | of scar that seemed to be incorporated into the dura, and this gave the appearance of | | actually 2 layers of dura, although the more superficial layer was in actuality just | | scar tissue. 4-0 Nurolon sutures were placed in the dural edges and were placed under | | gentle traction using mosquitos to gravity. We then began the use of microdissecting | | instruments to carefully identify the dorsal aspect of the spinal cord as well as some | | abnormal moctezuma appearing tumor tissue. We carefully dissected circumferentially around | | the borders of the tumor tissue to free it from the tumor capsule. We then used tumor | | biopsy forceps to gently remove the tumor in a piecemeal fashion. As we proceeded in | | this manner, there was suddenly a gush of clear cerebrospinal fluid, indicating that we | | had achieved a decompression adequate to restore patency of the central canal. We | | continued to remove a small amount of remaining tumor. We then explored cranially, and | | we were unable to visualize any more tumor. We then turned our attention more caudally | | and removed another 2 pieces of tumor, but ultimately were unable to visualize any more | | tumor. We then brought in the ultrasound, and we did not see any obvious foci of tumor | | within the operative field. Attention was then turned to closure. The wound was | | copiously irrigated. The dura was reapproximated and closed using 5-0 Tecumseh-Thaddeus suture | | in a running fashion. The scar tissue around the dura was also closed with a 4-0 | | Nurolon suture in a running fashion. We confirmed hemostasis one more time. We then | | placed Surgicel in the epidural space followed by DuraSeal after first copiously | | irrigating the wound. We then reapproximated and closed the deep muscle layers with 0 | | Vicryl sutures in an interrupted fashion. The thoracodorsal fascia was then closed with | | 0 Vicryl sutures in an interrupted fashion. The dermal layer was closed with 2-0 | | Vicryl sutures in an inverted interrupted fashion. The skin was closed with wale. | | The drapes were then taken down. The wound was then washed and a sterile dressing was | | applied. The patient was then transitioned from a prone back to a supine position on a | | [facility]. She was then extubated by the anesthesia team without complication, | | returned to the postanesthesia care unit for further recovery in stable condition. At | | the end the case, all sponge, needle, and instrument counts were correct in 2 | | iterations. There were no surgical drains. The specimens consisted of the thoracic | | intramedullary tumor, which was sent to Pathology for permanent.Joby Thibodeaux MDI, | | Rajinder Luis MD was scrubbed and actively participated performing the critical | | portions of the operation.Rajinder Luis MDTMS/MODLDD: 01/13/2017 19:31:27DT: | | 01/13/2017 20:53:09Job #: [id number] | + + CBC (HEMOGRAM) ONLY (01/15/2017 12:30 AM PDT) + + + + + + | Component | Value | Ref Range | Performed | Pathologist | | | | | At | Signature | + + + + + + | WHITE CELL | 10.08 | 3.50 - 10.80 | [facility] | [...] + + + + | HEMOGLOBIN | 11.9 (L) | 12.0 - 16.0 | [facility] [...] + + + + | MCV | 82.6 | 80.0 - 96.0 fL | [facility] | | | | | | LABORATORY | | | | | | SERVICES, | | | | | | CORE | | + + + + + + | MCHC | 32.2 | 33.0 - 35.5 | [facility] | [...] + + + + | PLATELET | 237 | 150 - 400 K/cu | [facility] | | | COUNT | | mm | LABORATORY | | | | | | SERVICES, | | | | | | CORE | | + + + + + + | MPV | 10.8 | 9.7 - 12.3 fL | [facility] [...] LABORATORY | [address] | [place] [address] | | | HORACIO, NINO | [address] | | | + + + + + RENAL FUNCTION SET (NA,K,CL,CO2,BUN,CREAT,GLUC,CA,PHOS,ALB ) (01/15/2017 12:30 AM PDT) + +---------+ + + + | Component | Value | Ref Range | Performed | Pathologist | | | | | At | Signature | + +---------+ + + + | GLUCOSE, | 102 (H) | 60 - 99 [...] +---------+ + + + | CREATININE | 0.72 | 0.60 - 1.10 | [facility] | | | PLASMA | | mg/dL | LABORATORY | | | (LAB) | | | SERVICES, | | | | | | CORE | | + +---------+ + + + | EGFR | >60 | >60 mL/min | [facility] | | | - | | | LABORATORY | | | [facility] | | | SERVICES, | | | | | | CORE | | + +---------+ + + + | EGFR NON | >60 | >60 mL/min | [facility] | | | -LEXIE | | | LABORATORY | | | RICAN | | | SERVICES, | | | | | | CORE | | + +---------+ + + + | SODIUM, | 142 | 136 - 145 | [facility] | | | PLASMA | | mmol/L | LABORATORY | | | (LAB) | | | SERVICES, | | | | | | CORE | | + +---------+ + + + | POTASSIUM, | 3.3 (L) | 3.4 - 5.0 | [facility] [...] | + +---------+ + + + | CALCIUM(ALB | 9.1 | 8.6 - 10.2 | [...] +---------+ + + + | PHOSPHORUS, | 2.6 [...] + | ANION GAP | 6 | mmol/L | [facility] | | | | | | LABORATORY | | | | | | SERVICES, | | | | | | CORE | | + +---------+ + + + | ANION | 8 [...] | + + + + + | [facility] | [address] | [place] [address] | | | NINO LEONARD | [address] | | | + + + + + MAGNESIUM, PLASMA (01/15/2017 12:30 AM PDT) + +-------+ + + + | Component | Value | Ref Range | Performed | Pathologist | | | | | At | Signature | + +-------+ + + + | MAGNESIUM,P | 2.3 | 1.8 - 2.5 mg/dL | [facility] [...] LABORATORY | [address] | [place] [address] | | | SERVICES, CORE | [address] | | | + + + + + CAPILLARY BLOOD GLUCOSE (NO CHG), POC (01/14/2017 7:29 AM PDT) + +---------+ + + + | Component | Value | Ref Range | Performed | Pathologist | | | | | At | Signature | + +---------+ + + + | BLOOD | 117 (H) | 60 - 99 mg/dL | [facility] | | | GLUCOSE, | | [...] + | [facility] | [address] | [place], [place] | | | [facility] | [address] | [address] | | | TESTS | | | | + + + + + CAPILLARY BLOOD GLUCOSE (NO CHG), POC (01/14/2017 1:06 AM PDT) + +-------+ + + + | Component | Value | Ref Range | Performed | Pathologist | | | | | At | Signature | + +-------+ + + + | BLOOD | 96 | 60 - 99 mg/dL | [facility] - | | | GLUCOSE, | | | [facility] | | | POC | | | [facility] | | | | | | OF CARE | | | | | | TESTS | | + +-------+ + + + + + | Specimen | + + | | + + + + + + + | Performing | Address | City/State/Zipcode | Phone Number | | Organization | | | | + + + + + | [facility] | [address] | [place], [place] | | | [facility] | [address] | [address] | | | TESTS | | | | + + + + + CBC (HEMOGRAM) ONLY (01/14/2017 12:54 AM PDT) + + + + + + | Component | Value | Ref Range | Performed | Pathologist | | | | | At | Signature | + + + + + + | WHITE CELL | 8.70 | 3.50 - 10.80 | [facility] | | | COUNT | | K/cu mm | LABORATORY | | | | | | SERVICES, | | | | | | CORE | | + + + + + + | RED CELL | 4.44 | 4.00 - 5.20 | [facility] | [...] + + + + | HEMATOCRIT | 36.0 | 36.0 - 46.0 % | [facility] | | | | | | LABORATORY | | | | | | SERVICES, | | | | | | CORE | | + + + + + + | MCV | 81.1 | 80.0 - 96.0 fL | [facility] | | | | | | LABORATORY | | | | | | SERVICES, | | | | | | CORE | | + + + + + + | MCHC | 32.8 | 33.0 - 35.5 | [facility] | | | | | g/dL | LABORATORY | | | | | | SERVICES, | | | | | | CORE | | + + + + + + | RDW SD | 42.4 | 35.1 - 46.3 fL | [facility] | | | | | | LABORATORY | | | | | | SERVICES, | | | | | | CORE | | + + + + + + | PLATELET | 257 | 150 - 400 K/cu | [facility] | | | COUNT | | mm | LABORATORY | | | | | | SERVICES, | | | | | | CORE | | + + + + + + | MPV | 11.2 | 9.7 - 12.3 fL | [facility] [...] LABORATORY | [address] | [place] [address] | | | NINO LEONARD | [address] | | | + + + + + MAGNESIUM, PLASMA (01/14/2017 12:54 AM PDT) + +-------+ + + + | Component | Value | Ref Range | Performed | Pathologist | | | | | At | Signature | + +-------+ + + + | MAGNESIUM,P | 1.9 | 1.8 - 2.5 mg/dL | [facility] [...] | + + + + + | [facility] | [address] | [place] [address] | | | SERVICES, CORE | [address] | | | + + + + + RENAL FUNCTION SET (NA,K,CL,CO2,BUN,CREAT,GLUC,CA,PHOS,ALB ) (01/14/2017 12:54 AM PDT) + +---------+ + + + [...] +---------+ + + + | CREATININE | 0.61 | 0.60 - 1.10 | [facility] | | | PLASMA | | mg/dL | LABORATORY | | | (LAB) | | | SERVICES, | | | | | | CORE | | + +---------+ + + + | EGFR | >60 | >60 mL/min | [facility] | | | - | | | LABORATORY | | | [facility] | | | SERVICES, | | | | | | CORE | | + +---------+ + + + | EGFR NON | >60 | >60 mL/min | [facility] | | | -LEXIE | | | LABORATORY | | | RICAN | | | SERVICES, | | | | | | CORE | | + +---------+ + + + | SODIUM, | 142 | 136 - 145 | [facility] | [...] | + +---------+ + + + | CALCIUM(ALB | 9.0 | 8.6 - 10.2 | [facility] | | | CORRECTED) | | mg/dL | LABORATORY | | | | | | SERVICES, | | | | | | CORE | | + +---------+ + + + | ALBUMIN, | 3.4 (L) | 3.5 - 4.7 g/dL | [facility] | | | PLASMA | | | LABORATORY | | | (LAB) | | | SERVICES, | | | | | | CORE | | + +---------+ + + + | PHOSPHORUS, | 3.6 [...] +---------+ + + + | ANION | 11 | 4 - 11 mmol/L | [facility] [...] | + + + + + | [facility] | [address] | [place] [address] | | | SERVICES, CORE | [address] | | | + + + + + CAPILLARY BLOOD GLUCOSE (NO CHG), POC (01/13/2017 7:38 PM PDT) + +-------+ + + + | Component | Value | Ref Range | Performed | Pathologist | | | | | At | Signature | + +-------+ + + + | BLOOD | 97 | 60 - 99 mg/dL | [facility] - | | | GLUCOSE, | | | [facility] | | | POC | | | [facility] | | | | | | OF CARE | | | | | | TESTS | | + +-------+ + + + + + | Specimen | + + | | + + + + + + + | Performing | Address | City/State/Zipcode | Phone Number | | Organization | | | | + + + + + | [facility] | [address] | [place], [place] | | | [facility] | [address] | [address] | | | TESTS | | | | + + + + + PROCEDURE NOTE (01/13/2017 7:17 PM PDT) + + + | Narrative | Performed At | + + + | Joby Thibodeaux MD 01/13/2017 7:17 PM INPATIENT BRIEF | | | OPERATIVE NOTE Procedure Date: 01/13/2017 Author: Joby Bates | | | MD Carlos Eduardo Attending Physician: Rajinder Luis MD Assistants: | | | Joby Thibodeaux MD Prior to the beginning of the procedure, the | | | team paused to verify the patient | | | | | | [...] | | | were addressed. Preoperative Diagnosis: thoracic intramedullary | | | spinal cord tumor Postoperative Diagnosis: same Procedure | | | Performed: 1) T8 and T9 laminectomies for resection of | | | intramedullary tumor 2) use of operative microscope 3) fluoroscopy | | | with interpretation 4) neuromonitoring with SSEP and MEPs 5) use of | | | ultrasound with interpretation Estimated Blood Loss: 50ml | | | Fluids: see anesthesia documentation Specimens: thoracic | | | intramedullary tumor Complications: none Drains: daniels | | | catheter, no surgical drains Disposition: extubated, PACU, NSICU | | | for neuro checks Findings: excellent decompression of the tumor, | | | no visible tumor left at the completion of the case. Skin closed | | | with wale. See forthcoming dictation for details. | | | Joby Thibodeaux MD Neurosurgery PGY-6 | | + + + ABG-FULL ABL, POC (01/13/2017 3:46 PM PDT) + + + + + + | Component | Value | Ref Range | Performed | Pathologist | | | | | At | Signature | + + + + + + | PH | 7.37 | 7.37 - 7.44 | [facility] - | | | [facility], | | | [facility] | | | POC | | | [facility] | | | | | | OF CARE | | | | | | TESTS | | + + + + + + | PO2 | 235 (H) | 83 - 108 mmHg | [facility] - | | | [facility], | | | [facility] | | | POC | | | [facility] | | | | | | OF CARE | | | | | | TESTS | | + + + + + + | PCO2 | 36 | 32 - 43 mmHg | [facility] - | | | [facility], | | | [facility] | | | POC | | | [facility] | | | | | | OF CARE | | | | | | TESTS | | + + + + + + | TOTAL | 11.8 (L) | 12.0 - 16.0 | [facility] - | | | HEMOGLOBIN, | | g/dL | [facility] | | | POC | | | [facility] | | | | | | OF CARE | | | | | | TESTS | | + + + + + + | O2 SAT | 100.2 (H) | 92.0 - 98.0 % | [facility] - | | | [facility], | | | [facility] | | | POC | | | [facility] | | | | | | OF CARE | | | | | | TESTS | | + + + + + + | OXYHEMOGLOB | 98.3 | 94.0 - 100 % | [facility] - | | | IN, POC | | | [facility] | | | | | | [facility] | | | | | | OF CARE | | | | | | TESTS | | + + + + + + | HEMATOCRIT, | 36.0 | 36.0 - 46.0 % | [facility] - | | | POC | | | [facility] | | | | | | [facility] | | | | | | OF CARE | | | | | | TESTS | | + + + + + + | POTASSIUM, | 3.0 (L) | 3.4 - 5.0 | [facility] - | | | POC | | mmol/L | [facility] | | | | | | [facility] | | | | | | OF CARE | | | | | | TESTS | | + + + + + + | SODIUM, POC | 142 | 134 - 143 | [facility] - | | | | | mmol/L | [facility] | | | | | | [facility] | | | | | | OF CARE | | | | | | TESTS | | + + + + + + | MARCELO | 1.20 | 1.14 - 1.32 | [facility] - | | | IONIZED CA, | | mmol/L | [facility] | | | POC | | | [facility] | | | | | | OF CARE | | | | | | TESTS | | + + + + + + | CHLORIDE, | 111 (H) | 97 - 108 mmol/L | [facility] - | | | POC | | | [facility] | | | | | | [facility] | | | | | | OF CARE | | | | | | TESTS | | + + + + + + | GLUCOSE, | 94 | 60 - 99 mg/dL | [facility] - | | | POC | | | [facility] | | | | | | [facility] | | | | | | OF CARE | | | | | | TESTS | | + + + + + + | HCO3 | 21.2 | 21 - 28 mmol/L | [facility] - | | | ARTERIAL, | | | [facility] | | | POC | | | [facility] | | | | | | OF CARE | | | | | | TESTS | | + + + + + + | BASE EXCESS | -4.1 | | [facility] - | | | ARTERIAL, | | | [facility] | | | POC | | | [facility] | | | | | | OF CARE | | | | | | TESTS | | + + + + + + | LACTATE | 0.6 | 0.5 - 1.6 | [facility] - | | | ARTERIAL, | | mmol/L | [facility] | | | POC | | | [facility] | | | | | | OF CARE | | | | | | TESTS | | + + + + + + | METHEMOGLOB | 1.1 | 0.0 - 1.9 % | [facility] - | | | IN, POC | | | [facility] | | | | | | [facility] | | | | | | OF CARE | | | | | | TESTS | | + + + + + + | PAT TEMP | 37.0 | | [facility] - | | | ART, POC | | | [facility] | | | | | | [facility] | | | | | | OF CARE | | | | | | TESTS | | + + + + + + + + | Specimen | + + | Blood - Blood | | (substance) | + + + + + + + | Performing | Address | City/State/Zipcode | Phone Number | | Organization | | | | + + + + + | [facility] | [address] | [place], [place] | | | [facility] | [address] | [address] | | | TESTS | | | | + + + + + X-RAY SPINE THORACOLUMBAR 1 VIEW (01/13/2017 3:11 PM PDT) + + | Specimen | + + | | + + + + + | Narrative | Performed At | + + + | - At the time of the study, no professional interpretation was | | | requested. - | | + + + X-RAY FLUOROSCOPY <=1 HOUR (01/13/2017 3:05 PM PDT) + + | Specimen | + + | | + + + + + | Narrative | Performed At | + + + | - At the time of the study, no professional interpretation was | | | requested. - | | + + + CAPILLARY BLOOD GLUCOSE (NO CHG), POC (01/13/2017 1:27 PM PDT) + +-------+ + + + | Component | Value | Ref Range | Performed | Pathologist | | | | | At | Signature | + +-------+ + + + | BLOOD | 77 | 60 - 99 mg/dL | [facility] - | | | GLUCOSE, | | | [facility] | | | POC | | | [facility] | | | | | | OF CARE | | | | | | TESTS | | + +-------+ + + + + + | Specimen | + + | | + + + + + + + | Performing | Address | City/State/Zipcode | Phone Number | | Organization | | | | + + + + + | [facility] | [address] | [place], [place] | | | [facility] | [facility] | [address] | | | TESTS | | | | + + + + + PRODUCT - FRESH FROZEN PLASMA (01/13/2017 12:57 PM PDT) + + + + + + | Component | Value | Ref Range | Performed | Pathologist | | | | | At | Signature | + + + + + + | PRODUCT | PLASMA THAWED | | [facility] | | | DESCRIPTION | | | LABORATORY | | | | | | SERVICES, | | | | | | TRANSFUSION | | | | | | MEDICINE | | + + + + + + | PRODUCT | [id number] | | [facility] | | | UNIT # | | | LABORATORY | | | [...] + + + | UNIT RH | NEG | | [facility] | | | | | | LABORATORY | | | | | | SERVICES, | | | | | | TRANSFUSION | | | | | | MEDICINE | | + + + + + + | STATUS OF | Returned to Blood Bank | | [facility] | | | UNIT | | | LABORATORY | | | | | | SERVICES, | | | | | | TRANSFUSION | | | | | | MEDICINE | | + + + + + + | EXPIRATION | [id number] | | [facility] | | | DATE | | | LABORATORY | | | | | | SERVICES, | | | | | | TRANSFUSION | | | | | | MEDICINE | | + + + + + + | BLOOD TYPE | [id number] | | [facility] | | | BARCODE | | | LABORATORY | | | | | | SERVICES, | | | | | | TRANSFUSION | | | | | | MEDICINE | | + + + + + + | BLOOD | [id number] | | [facility] | | | PRODUCT | | | LABORATORY | | | CODE | | | SERVICES, | | | [...] LABORATORY | [address] | [place] [address] | | | SERVICES, | [address] | | | | TRANSFUSION MEDICINE | | | | + + + + + PRODUCT - FRESH FROZEN PLASMA (01/13/2017 12:57 PM PDT) + + + + + + | Component | Value | Ref Range | Performed | Pathologist | | | | | At | Signature | + + + + + + | PRODUCT | PLASMA THAWED | | [facility] | | | DESCRIPTION | | | LABORATORY | | | | | | SERVICES, | | | | | | TRANSFUSION | | | | | | MEDICINE | | + + + + + + | PRODUCT | [id number] | | [facility] | | | UNIT # | | | LABORATORY | | | [...] | | | UNIT | | | LABORATORY | | | | | | SERVICES, | | | | | | TRANSFUSION | | | | | | MEDICINE | | + + + + + + | EXPIRATION | [id number] | | [facility] | | | DATE | | | LABORATORY | | | | | | SERVICES, | | | | | | TRANSFUSION | | | | | | MEDICINE | | + + + + + + | BLOOD TYPE | [id number] | | [facility] | | | BARCODE | | | LABORATORY | | | | | | SERVICES, | | | | | | TRANSFUSION | | | | | | MEDICINE | | + + + + + + | BLOOD | [id number] | | [facility] | | | PRODUCT | | | LABORATORY | | | CODE | | | SERVICES, | | | [...] | + + + + + | [facility] | [address] | [place] [address] | | | SERVICES, | [address] | | | | TRANSFUSION MEDICINE | | | | + + + + + THROMBELASTOGRAPH, POC (01/13/2017 12:36 PM PDT) + + + + + + | Component | Value | Ref Range | Performed | Pathologist | | | | | At | Signature | + + + + + + | R - | 7.6 | 5 - 10 Minutes | [facility] - | | | CITRATED | | | [facility] | | | | | | [facility] | | | | | | OF CARE | | | | | | TESTS | | + + + + + + | K - | 1.3 | 1 - 3 Minutes | [facility] - | | | CITRATED | | | [facility] | | | | | | [facility] | | | | | | OF CARE | | | | | | TESTS | | + + + + + + | ANGLE - | 74.9 (A) | 53 - 72 Degrees | [facility] - | | | CITRATED | | | [facility] | | | | | | [facility] | | | | | | OF CARE | | | | | | TESTS | | + + + + + + | MAXIMUM | 69.8 | 55 - 70 mm | [facility] - | | | AMPLITUDE - | | | [facility] | | | CITRATED | | | [facility] | | | | | | OF CARE | | | | | | TESTS | | + + + + + + | LY 30 | 1.5 | 0 - 8 % | [facility] - | | | | | | [facility] | | | | | | [place], POINT | | | | | | OF CARE | | | | | | TESTS | | + + + + + + | CLOT INDEX | 1.0 | -3 - 3 | [facility] - | | | | | | [facility] | | | | | | [place] [facility] | | | | | | OF CARE | | | | | | TESTS | | + + + + + + + + | Specimen | + + | Blood - Blood | | (substance) | + + + + + | Narrative | Performed At | + + + | TEG Interpretation Note 01/17/2017 TEG reviewed: R time 7.6 (r | [facility] - | | 5-10) Angle 74.9 (r 53-72) MA 69.8 (r 50-70) Ly30 1.0 (r 0-8) | [facility], | | TEG parameters are within normal limits with exception of increased | POINT OF CARE | | alpha angle indicating more rapid rare of clot formation and elevated | TESTS | | MA indicating higher than normal final clot strength. These findings | | | are consistent with hypercoagulable state. See Media tab in | | | Chart Review for graph. Electronically signed on 01/17/2017 at | | | 12:30 PM Dmitriy Delacruz MD. | | + + + + + + + + | Performing | Address | City/State/Zipcode | Phone Number | | Organization | | | | + + + + + | [facility] | [address] | [place], [place] | | | [place] | [address] | [address] | | | TESTS | | | | + + + + + APTT 1:1 MIX REFLEX LUPUS INHIBITOR, PLASMA (01/13/2017 10:57 AM PDT) + +-------+ + + + | Component | Value | Ref Range | Performed | Pathologist | | | | | At | Signature | + +-------+ + + + | APTT | | Inhibitor Not | [facility] | | | INHIBITOR | | Demonstrated in | LABORATORY | | | SCREEN | | Mix | SERVICES, | | | | | | SPECIAL IMM | | | | | | + COAG | | + +-------+ + + + | APTT | | sec | [facility] | | | NORMPOOL,0 | | | LABORATORY | | | MINUTES | | | SERVICES, | | | | | | SPECIAL IMM | | | | | | + COAG | | + +-------+ + + + | APTT PAT,0 | 37.0 | 26.0 - 37.9 sec | [facility] | | | MIN | | | LABORATORY | | | | | | SERVICES, | | | | | | SPECIAL IMM | | | | | | + COAG | | + +-------+ + + + | APTT | | 26.0 - 37.9 sec | [facility] | | | 1:1MIX,0MIN | | | LABORATORY | | | | | | SERVICES, | | | | | | SPECIAL IMM | | | | | | + COAG | | + +-------+ + + + | APTT | | sec | [facility] | | | NORMPOOL, | | | LABORATORY | | | 60 MINUTES | | | SERVICES, | | | | | | SPECIAL IMM | | | | | | + COAG | | + +-------+ + + + | APTT | | 26.0 - 37.9 sec | [facility] | | | PAT,60MIN | | | LABORATORY | | | | | | SERVICES, | | | | | | SPECIAL IMM | | | | | | + COAG | | + +-------+ + + + | APTT | | 26.0 - 37.9 sec | [facility] | | | 1:1MIX,60MI | | | LABORATORY | | | N | | | SERVICES, | | | | | | SPECIAL IMM | | | | | | + COAG | | + +-------+ + + + + + | Specimen | + + | Blood - Blood | | (substance) | + + + + + | Narrative | Performed At | + + + | Patient APTT result within range therefore mixing study not | [facility] | | indicated. Mixing studies performed on only mildly elevated partial | LABORATORY | | thromboplastin times are often uninformative due to dilutional | SERVICES, | | effects, therefore mixing studies will not be reflexively performed | SPECIAL IMM + | | until the PTT is greater than 2 seconds longer than the upper limit of | COAG | | normal (i.e. >37.9 seconds). | | + + + + + + + + | Performing | Address | City/State/Zipcode | Phone Number | | Organization | | | | + + + + + | [facility] | [address] | [place] [address] | | | SERVICES, SPECIAL | [address] | | | | IMM + COAG | | | | + + + + + COAGULOPATHY PANEL (INR,APTT,FIBRINOGEN) (01/13/2017 10:03 AM PDT) + + + + + + | Component | Value | Ref Range | Performed | Pathologist | | | | | At | Signature | + + + + + + | INR | 1.09 | 0.90 - 1.20 INR | [facility] | | | | | | LABORATORY | | | | | | SERVICES, | | | | | | CORE | | + + + + + + | APTT | 36.7 (H) | 26.0 - 36.0 | [facility] | | | | | seconds | LABORATORY | | | | | | SERVICES, | | | | | | CORE | | + + + + + + | FIBRINOGEN | 496 (H) | 200 - 450 mg/dL | [facility] | | [...] mech. 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 Currently presenting with new | RECOGNITION | | onset right lower extremity weakness. Plan for thoracic laminectomy | | | redo resection of mass. COMPARISON: MRI total spine 01/11/17 | | | TECHNIQUE: CT thoracic spine without contrast, with 2D multiplanar | | | reconstructions. FINDINGS: Alignment: There is a mild | | | exaggeration of the thoracic kyphosis centered at T8; otherwise, | | | alignment is unremarkable. Vertebrae: No acute fracture or focal | | | destructive lesion is identified. There are postsurgical changes from | | | T6-T10 laminectomies. Known enhancing T8 intramedullary spinal cord | | | nodule with surrounding cord expansion is better evaluated on prior | | | MRI dated 01/11/17. Paraspinal soft tissues: Unremarkable | | | IMPRESSION: 1. Postsurgical changes from T6-T10 laminectomies with | | | mild exaggerated kyphosis centered at T8. 2. 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 I have personally reviewed the images and, if | | | necessary, edited the report. I agree with the report as now | | | presented. | | + + + + + | Procedure Note | + + | Service Account, Radiant Res In Interface - 01/13/2017 9:40 AM PDT EXAM: CT | | thoracic spine without contrastHISTORY: History of 3 resections for a thoracic | | ganglioneuroma, most recently underwent a right T8-9 hemilaminectomy on 03/22/16. | | Currently presenting with new onset right lower extremity weakness. Plan for thoracic | | laminectomy redo resection of mass.COMPARISON: MRI total spine 01/11/17TECHNIQUE: CT | | thoracic spine without contrast, with 2D multiplanar reconstructions.FINDINGS: | | Alignment: There is a mild exaggeration of the thoracic kyphosis centered at T8; | | otherwise, alignment is unremarkable. Vertebrae: No acute fracture or focal destructive | | lesion is identified. There are postsurgical changes from T6-T10 laminectomies. Known | | enhancing T8 intramedullary spinal cord nodule with surrounding cord expansion is better | | evaluated on prior MRI dated 01/11/17. Paraspinal soft tissues: | | UnremarkableIMPRESSION:1. Postsurgical changes from T6-T10 laminectomies with mild | | exaggerated kyphosis centered at T8.2. Known T8 intramedullary spinal cord lesion is | | better evaluated on MRI dated 01/11/17.I have personally reviewed the images and, if | | necessary, edited the report. I agree with the report as now presented. | |IMPRESSION: | | | |1. Postsurgical changes from T6-T10 laminectomies with mild exaggerated kyphosis centered a t T8. | | | |2. Known T8 intramedullary spinal cord lesion is better evaluated on MRI dated 01/11/17. | | | | | |I have [...] | | | + +---------+ + + INTRAOPERATIVE NEURO MONITORING (01/13/2017) + + + | Narrative | Performed At | + + + | Patient Name: Qiana Fagan Date of : 1990 | | | Date of Test: 01/13/2017 Place of | | | Service: IP Intra Op [id number] - [id number] INTRAOPERATIVE NEURO | | | MONITORING IOM: 11 History: This is a 26 y.o. female patient | | | with a history of spinal cord tumor . Patient was admitted for | | | thoracic laminectomy for tumor resection. Conditions of Recording: | | | Repetitive [...] | | | Following posterior tibial nerve stimulation on the left there was a | | | reproducible subcortical potential, N29, at latencies of approximately | | | 27 msec. A reproducible cortical waveform, N37, was present at | | | latencies of about 36.4 msec. The waves following right sided | | | stimulation were poorly reproducible at baseline. It did appear there | | | were waves present but only inconsitently There were no significant | | | changes in the latencies or amplitudes of the posterior tibial nerve | | | responses as compared to baseline values. Following ulnar nerve | | | stimulation, there was a cervical potential, N13, at latencies of | | | approximately 12.6 msec. The cortical waveform, N20, was present at | | | latencies of about 19.3 msec. There were no significant changes in the | | | latencies or amplitudes of the ulnar nerve responses as compared to | | | baseline values. Following transcranial stimulation, there were | | | reproducible EMG responses from the upper and lower extremity muscles | | | bilaterally. There were no significant changes in the latencies or | | | amplitudes during the surgical procedure. No unusual events were | | | noted during the procedure. Intraoperative interpretation was | | | performed using real-time display of intraoperative neurophysiologic | | | recordings for 3 hours 2 minutes (15:21-18:23). Dr. Pizano was | | | continuously available for communication with the recording | | | technologist and the operative team during this time. Impression: | | | Intraoperative neuromonitoring with no change in baseline waveforms | | | during surgery. Electronically signed on 02/05/2017 10:15 AM by | | | Da Pizano M.D., Ph.D. 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 | | + + + SURGICAL PATHOLOGY (01/13/2017) + + + + + + | Component | Value | Ref Range | Performed | Pathologist | | | | | At | Signature | + + + + + + | SURGICAL | THIS IS AN AMENDED | | [facility] | | | PATHOLOGY | REPORT SOURCE OF | | DEPARTMENT | | | | SPECIMEN:A Thoracic | | OF | | | | intramedullary | | PATHOLOGY | | | | tumorSOURCE OF | | | | | | SPECIMEN:B Thoracic | | | | | | intramedullary tumor | | | | | | Final Pathologic | | | | | | Diagnosis:This amendment | | | | | | is created to summarize | | | | | | the results of | | | | | | completedimmunohistochem | | | | | | ical studies (see | | | | | | amendment comment | | | | | | below). There is | | | | | | nochange to the final | | | | | | pathologic diagnosis. | | | | | | A. 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 The diagnosis is | | | | | | unchanged. | | | | | | Comment: Section show a | | | | | | tumor morphologically | | | | | | similar to prior | | | | | | resections(compared at | | | | | | this time to original | | | | | | [id number]) with cells | | | | | | with ovoidnuclei that | | | | | | have poorly defined | | | | | | eosinophilic cytoplasm. | | | | | | In some areas thecells | | | | | | are arranged in distinct | | | | | | clusters. No high grade | | | | | | features are seen. | | | | | | Case seen | | | | | | by:Gonzalo Tuttle.O. | | | | | | / Neuropathology | | | | | | fellowIrina Crystal, | | | | | | M.D., Ph.D. / | | | | | | NeuropathologistT: | | | | | | 01/17/2017 AH | | | | | | Amendment seen by:Russel | | | | | | Che D.O. / | | | | | | Neuropathology | | | | | | fellowIrina Crystal, | | | | | | M.D., Ph.D. / | | | | | | NeuropathologistT: | | | | | | 01/18/2017 AH | | | | | | (Analyte specific | | | | | | reagents are used in | | | | | | many laboratory tests | | | | | | necessary forstandard | | | | | | medical care. This | | | | | | test was developed and | | | | | | its | | | | | | performancecharacteristi | | | | | | cs determined by [facility] | | | | | | laboratories. [...] | | | | | | used forclinical | | | | | | purposes. 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 | | | | | | Gross | | | | | | Description:Received are | | | | | | 2 specimens labeled | | | | | | with the patient's name | | | | | | and medical | | | | | | record#[id number]. | | | | | | A: Thoracic | | | | | | intramedullary tumor | | | | | | | | | | | | received in formalin are | | | | | | 4 soft moctezuma piecesof | | | | | | tissue, 0.5 x 0.3 x 0.1 | | | | | | cm in aggregate, | | | | | | entirely submitted in | | | | | | A1. B: Thoracic | | | | | | intramedullary tumor | | | | | | | | | | | | received fresh in a | | | | | | Vacutainer device | | | | | | areminute fragments of | | | | | | gelatinous moctezuma-pink | | | | | | tissue, 0.1 x 0.1 x 0.1 | | | | | | cm inaggregate. Wrapped | | | | | | and entirely submitted | | | | | | in cassette B1.(KRK) | | | | | | My [...] Diagnostician: | | | | | | Irina Crystal | | | | | | M.D., | | | | | | Ph.D.PathologistElectr | | | | | | onically Signed | | | | | | 01/19/2017 2:51PM | | | | + + + [...] | + + + + + | [facility] | [address] | [place] [address] | | | PATHOLOGY | [address] | | | + + + + + APTT 1:1 MIX REFLEX LUPUS INHIBITOR, PLASMA (01/12/2017 9:38 PM PDT) + + + + + + | Component | Value | Ref Range | Performed | Pathologist | | | | | At | Signature | + + + + + + | APTT | Inhibitor Not | Inhibitor Not | [facility] | | | INHIBITOR | Demonstrated in Mix | Demonstrated in | LABORATORY | | | SCREEN | | Mix | SERVICES, | | | | | | SPECIAL IMM | | | | | | + COAG | | + + + + + + | APTT | 29.0 | sec | [facility] | | | NORMPOOL,0 | | | LABORATORY | | | MINUTES | | | SERVICES, | | | | | | SPECIAL IMM | | | | | | + COAG | | + + + + + + | APTT PAT,0 | 41.4 (H) | 26.0 - 37.9 sec | [facility] | | | MIN | | | LABORATORY | | | | | | SERVICES, | | | | | | SPECIAL IMM | | | | | | + COAG | | + + + + + + | APTT | 35.7 | 26.0 - 37.9 sec | [facility] | | | 1:1MIX,0MIN | | | LABORATORY | | | | | | SERVICES, | | | | | | SPECIAL IMM | | | | | | + COAG | | + + + + + + | APTT | 29.0 | sec | [facility] | | | NORMPOOL, | | | LABORATORY | | | 60 MINUTES | | | SERVICES, | | | | | | SPECIAL IMM | | | | | | + COAG | | + + + + + + | APTT | 40.6 (H) | 26.0 - 37.9 sec | [facility] | | | PAT,60MIN | | | LABORATORY | | | | | | SERVICES, | | | | | | SPECIAL IMM | | | | | | + COAG | | + + + + + + | APTT | 35.8 | 26.0 - 37.9 sec | [facility] | | | 1:1MIX,60MI | | | LABORATORY | | | N | | | SERVICES, | | | | | | SPECIAL IMM | | | | | | + COAG | | + + + + + + + + | Specimen | + + | Blood - Blood | | (substance) | + + + + + | Narrative | Performed At | + + + | Mixing studies performed on only mildly elevated partial | [facility] | | thromboplastin times are often uninformative due to dilutional | LABORATORY | | effects, therefore mixing studies will not be reflexively performed | SERVICES, | | until the PTT is greater than 2 seconds longer than the upper limit of | SPECIAL IMM + | | normal (i.e. >37.9 seconds). Inhibitor not demonstrated in mix, (mix | COAG | | corrects to normal range). Consistent with congenital or acquired | | | factor deficiency. | | + + + + + + + + | Performing | Address | City/State/Zipcode | Phone Number | | Organization | | | | + + + + + | [facility] | [address] | [place] [address] | | | SERVICES, SPECIAL | [address] | | | | IMM + [place]AG | | | | + + + + + COAGULOPATHY PANEL (INR,APTT,FIBRINOGEN) (01/12/2017 1:03 PM PDT) + + + + + + | Component | Value | Ref Range | Performed | Pathologist | | | | | At | Signature | + + + + + + | INR | 1.18 | 0.90 - 1.20 INR | [facility] | | | | | | LABORATORY | | | | | | SERVICES, | | | | | | CORE | | + + + + + + | APTT | 42.8 (H) | 26.0 - 36.0 | [facility] | | | | | seconds | LABORATORY | | | | | | SERVICES, | | | | | | CORE | | + + + + + + | FIBRINOGEN | 523 (H) | 200 - 450 mg/dL | [facility] | | [...] mech. 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 Preoperative | RADIOLOGY VOICE | | evaluation. COMPARISON: Total spine MRI yesterday and CT 03/22/16. | RECOGNITION | | FINDINGS: There is 16 degrees levocurvature of the thoracic | | | spine and 10 degrees dextrocurvature of the thoracolumbar spine. | | | Vertebral body heights are maintained. No fracture or focal | | | destruction. Disc spaces are preserved. Alignment is normal. No focal | | | soft tissue abnormality. IMPRESSION: Mild S-shaped scoliosis | | | of the thoracic spine. Normal lumbar spine. I have | | | personally reviewed the images and, if necessary, edited the report. | | | I agree with the report as now presented. 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 Preoperative evaluation.COMPARISON: Total spine MRI yesterday and CT | | 03/22/16.FINDINGS: There is 16 degrees levocurvature of the thoracic spine and 10 | | degrees dextrocurvature of the thoracolumbar spine. Vertebral body heights are | | maintained. No fracture or focal destruction. Disc spaces are preserved. Alignment is | | normal. No focal soft tissue abnormality.IMPRESSION: Mild S-shaped scoliosis of the | | thoracic spine.Normal lumbar spine.I have personally reviewed the images and, if | | necessary, edited the report. I agree with the report as now presented. | |Alignment is normal. No focal soft tissue abnormality. | | | |IMPRESSION: | | | |Mild S-shaped scoliosis of the thoracic spine. | | | |Normal lumbar spine. 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 Preoperative | RADIOLOGY VOICE | | evaluation. COMPARISON: Total spine MRI yesterday and CT 03/22/16. | RECOGNITION | | FINDINGS: There is 16 degrees levocurvature of the thoracic | | | spine and 10 degrees dextrocurvature of the thoracolumbar spine. | | | Vertebral body heights are maintained. No fracture or focal | | | destruction. Disc spaces are preserved. Alignment is normal. No focal | | | soft tissue abnormality. IMPRESSION: Mild S-shaped scoliosis | | | of the thoracic spine. Normal lumbar spine. I have | | | personally reviewed the images and, if necessary, edited the report. | | | I agree with the report as now presented. 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 Preoperative evaluation.COMPARISON: Total spine MRI yesterday and CT | | 03/22/16.FINDINGS: There is 16 degrees levocurvature of the thoracic spine and 10 | | degrees dextrocurvature of the thoracolumbar spine. Vertebral body heights are | | maintained. No fracture or focal destruction. Disc spaces are preserved. Alignment is | | normal. No focal soft tissue abnormality.IMPRESSION: Mild S-shaped scoliosis of the | | thoracic spine.Normal lumbar spine.I have personally reviewed the images and, if | | necessary, edited the report. I agree with the report as now presented. | |Alignment is normal. No focal soft tissue abnormality. | | | |IMPRESSION: | | | |Mild S-shaped scoliosis of the thoracic spine. | | | |Normal lumbar spine. | | | | | |I have [...] | + +---------+ + + ANTIBODY SCREEN (01/12/2017 6:03 AM PDT) + + + + + [...] LABORATORY | [address] | [place] [address] | | | SERVICES, | [address] | | | | TRANSFUSION MEDICINE | | | | + + + + + ABO & RH TYPE (01/12/2017 6:03 AM PDT) + + + + + [...] LABORATORY | [address] | [place] [address] | | | SERVICES, | [address] | | | | TRANSFUSION MEDICINE | | | | + + + + + CBC AND AUTO DIFF (01/12/2017 6:03 AM PDT) + + + + + + | Component | Value | Ref Range | Performed | Pathologist | | | | | At | Signature | + + + + + + | WHITE CELL | 6.86 | 3.50 - 10.80 | [facility] | | | COUNT | | K/cu mm | LABORATORY | | | | | | SERVICES, | | | | | | CORE | | + + + + + + | RED CELL | 4.77 | 4.00 - 5.20 | [facility] | [...] + + + + | MCV | 82.4 | 80.0 - 96.0 fL | [facility] [...] + + + | RDW SD | 42.8 | 35.1 - 46.3 fL | [facility] | | | | | | LABORATORY | | | | | | SERVICES, | | | | | | CORE | | + + + + + + | PLATELET | 202 | 150 - 400 K/cu | [facility] | | | COUNT | | mm | LABORATORY | | | | | | SERVICES, | | | | | | CORE | | + + + + + + | MPV | 11.1 | 9.7 - 12.3 fL | [facility] [...] + + + + | NEUTROPHIL | 78.5 (H) | 50.0 - 70.0 % | [facility] | | | % | | | LABORATORY | | | | | | SERVICES, | | | | | | CORE | | + + + + + + | LYMPHOCYTE | 14.7 (L) | 18.0 - 42.0 % | [facility] | | | % | | | LABORATORY | | | | | | SERVICES, | | | | | | CORE | | + + + + + + | MONOCYTE % | 5.8 | 3.5 - 9.0 % | [facility] | | | | | | LABORATORY | | | | | | SERVICES, | | | | | | CORE | | + + + + + + | EOS % | 0.1 (L) | 1.0 - 3.0 % | [facility] | | | | | | LABORATORY | | | | | | SERVICES, | | | | | | CORE | | + + + + + + | BASO % | 0.3 | 0.0 - 2.0 % | [facility] | | | | | | LABORATORY | | | | | | SERVICES, | | | | | | CORE | | + + + + + + | IG% | 0.6Comment: Immature | 0.0 - 0.6 % | [...] + + + + | NEUTROPHIL | 5.38 | 1.80 - 7.70 | [facility] | | | # | | K/cu mm | LABORATORY | | | | | | SERVICES, | | | | | | CORE | | + + + + + + | LYMPHOCYTE | 1.01 | 1.00 - 4.80 | [facility] | | | # | | K/cu mm | LABORATORY | | | | | | SERVICES, | | | | | | CORE | | + + + + + + | MONOCYTE # | 0.40 | 0.10 - 0.90 | [facility] | | | | | K/cu mm | LABORATORY | | | | | | SERVICES, | | | | | | CORE | | + + + + + + | EOS # | 0.01 | 0.00 - 0.50 | [facility] | | | | | K/cu mm | LABORATORY | | | | | | SERVICES, | | | | | | CORE | | + + + + + + | BASO # | 0.02 | 0.00 - 0.10 | [facility] | | | | | K/cu mm | LABORATORY | | | | | | SERVICES, | | | | | | CORE | | + + + + + + | IG# | 0.04 (H) | 0.00 - 0.03 | [facility] | [...] | included in the neutrophil count. | SERVICES, CORE | + + + + + + + + | Performing | Address | City/State/Zipcode | Phone Number | | Organization | | | | + + + + + | [facility] | [address] | [place] [address] | | | SERVICES, CORE | [address] | | | + + + + + COAGULOPATHY PANEL (INR,APTT,FIBRINOGEN) (01/12/2017 6:03 AM PDT) + + + + + + | Component | Value | Ref Range | Performed | Pathologist | | | | | At | Signature | + + + + + + | INR | 1.25 (H) | 0.90 - 1.20 INR | [facility] | | | | | | LABORATORY | | | | | | SERVICES, | | | | | | CORE | | + + + + + + | APTT | 46.2 (H) | 26.0 - 36.0 | [facility] | | | | | seconds | LABORATORY | | | | | | SERVICES, | | | | | | CORE | | + + + + + + | FIBRINOGEN | 542 (H) | 200 - 450 mg/dL | [facility] | | [...] mech. valves (2.5 - 3.5) INR APTT | SERVICES, CORE | | Therapeutic Range: (75 - 120) sec | | | Heparin levels of 0.35 - 0.7 U/mL | | + + + + + + + + | Performing | Address | City/State/Zipcode | Phone Number | | Organization | | | | + + + + + | [facility] | [address] | [place] [address] | | | SERVICES, CORE | [address] | | | + + + + + MAGNESIUM, PLASMA (01/12/2017 6:03 AM PDT) + +-------+ + + + | Component | Value | Ref Range | Performed | Pathologist | | | | | At | Signature | + +-------+ + + + | MAGNESIUM,P | 2.3 | 1.8 - 2.5 mg/dL | [facility] [...] LABORATORY | [address] | [place] [address] | | | SERVICES, CORE | [address] | | | + + + + + COMPLETE METABOLIC SET (NA,K,CL,CO2,BUN,CREAT,GLUC,CA,AST,ALT,BILI TOTAL,ALK PHOS,ALB,PROT TOTAL) (01/12/2017 6:03 AM PDT) + +---------+ + + + | Component | Value | Ref Range | Performed | Pathologist | | | | | At | Signature | + +---------+ + + + | GLUCOSE, | 102 (H) | 60 - 99 mg/dL | [facility] | | | PLASMA | | | LABORATORY | | | (LAB) | | | SERVICES, | | | | | | CORE | | + +---------+ + + + | BUN, PLASMA | 5 (L) | 6 - 20 mg/dL | [facility] | | | (LAB) | | | LABORATORY | | | | | | SERVICES, | | | | | | CORE | | + +---------+ + + + | CREATININE | 0.72 | 0.60 - 1.10 | [facility] | | | PLASMA | | mg/dL | LABORATORY | | | (LAB) | | | SERVICES, | | | | | | CORE | | + +---------+ + + + | EGFR | >60 | >60 mL/min | [facility] | | | - | | | LABORATORY | | | [facility] | | | SERVICES, | | | [...] +---------+ + + + | POTASSIUM, | 4.1 | 3.4 - 5.0 | [facility] | [...] + + + | TOTAL CO2, | 22 | 21 - 32 mmol/L | [facility] [...] | + +---------+ + + + | CALCIUM(ALB | 9.4 | 8.6 - 10.2 | [facility] | | | CORRECTED) | | mg/dL | LABORATORY | | | | | | SERVICES, | | | | | | CORE | | + +---------+ + + + | BILIRUBIN | 0.3 | 0.3 - 1.2 mg/dL | [facility] | | | TOTAL | | | LABORATORY | | | | | | SERVICES, | | | | | | CORE | | + +---------+ + + + | TOTAL | 7.6 | 6.4 - 8.2 g/dL | [facility] | | | PROTEIN, | | | LABORATORY | | | PLASMA | | | SERVICES, | | | (LAB) | | | CORE | | + +---------+ + + + | ALBUMIN, | 3.7 | 3.5 - 4.7 g/dL | [facility] | | | PLASMA | | | LABORATORY | | | (LAB) | | | SERVICES, | | | | | | CORE | | + +---------+ + + + | ALK PHOS | 89 | 42 - 98 U/L | [facility] | | | | | | LABORATORY | | | | | | SERVICES, | | | | | | CORE | | + +---------+ + + + | AST(SGOT) | 12 | <=41 U/L | [facility] | | | | | | LABORATORY | | | | | | SERVICES, | | | | | | CORE | | + +---------+ + + + | ALT (SGPT) | 19 | <=60 U/L | [facility] | | | | | | LABORATORY | | | | | | SERVICES, | | | | | | CORE | | + +---------+ + + + | ANION GAP | 9 | mmol/L | [facility] | | | | | | LABORATORY | | | | | | SERVICES, | | | | | | CORE | | + +---------+ + + + | ANION | 9 | 4 - 11 mmol/L | [facility] [...] | + +---------+ + + + | BILI T CMNT | No Hemo | | [facility] | | | | | | LABORATORY | | | | | | SERVICES, | | | | | | CORE | | + +---------+ + + + | AST CMNT | No Hemo | | [facility] | | | | [...] the MDRD equation recommended by the | [facility] | | National Kidney Disease Education Program. Estimated GFR | LABORATORY | | Interpretive Information: <60 mL/min/1.73 sq m | [facility], CORE | | Chronic Kidney Disease <15 [...] | + + + + + | [facility] | [address] | [place] [address] | | | SERVICES, CORE | [address] | | | + + + + + SEDIMENTATION RATE (01/12/2017 6:03 AM PDT) + +--------+ + + + | Component | Value | Ref Range | Performed | Pathologist | | | | | At | Signature | + +--------+ + + + | SEDIMENTATI | 29 (H) | 0 - 20 mm/hr | [facility] | | | ON RATE | | | LABORATORY | | | | | | SERVICES, | | | | | | CORE | | + +--------+ + + + + + | Specimen | + + | Blood - Blood | | (substance) | + + + + + | Narrative | Performed At | + + + | Conditions such as cold agglutinins, anemia, hemolysis, icterus or | [facility] | | lipemia may affect sedimentation rate. | LABORATORY | | | [address] | + + + + + + + + | Performing | Address | City/State/Zipcode | Phone Number | | Organization | | | | + + + + + | [facility] | [address] | [place] [address] | | | SERVICES, [place] | [address] | | | + + + + + C-REACTIVE PROTEIN (01/12/2017 6:03 AM PDT) + + + + + + | Component | Value | Ref Range | Performed | Pathologist | | | | | At | Signature | + + + + + + | C-REACTIVE | 171.0 (H) | <10.0 mg/L | [facility] | | | PROTEIN | | | LABORATORY | | | | | | SERVICES, | | | | | | CORE | | + + + + + + + + | Specimen | + + | Blood - Blood | | (substance) | + + + + + | Narrative | Performed At | + + + | New method, new reference range and new reporting units as of | [facility] | | 12/10/2013. | LABORATORY | | | [place] [facility] | + + + + + + + + | Performing | Address | City/State/Zipcode | Phone Number | | Organization | | | | + + + + + | [facility] | [address] | [place] [address] | | | [place] | [address] | | | + + + + + URINE CULTURE WORKUP (01/11/2017 11:10 PM PDT) + + | Specimen | + + | Urine - Urine | | specimen collection, | | clean catch | | (procedure) | + + + + + | Narrative | Performed At | + + + | Culture Report: Multiple organisms are present indicating probable | [facility] | | contamination or colonization not related to infection. Further | [facility] | | work-up of these organisms may result in clinically misleading | [place] | | information due to the low numbers and /or mixture of organisms | | | present. Recollection is suggested if clinically indicated. | | + + + + + + + + | Performing | Address | City/State/Zipcode | Phone Number | | Organization | | | | + + + + + | [facility] | [address] | [place] [address] | | | [place] | | | | + + + + + CULTURE, URINE [facility] (01/11/2017 11:10 PM PDT) + + + + + + | Component | Value | Ref Range | Performed | Pathologist | | | | | At | Signature | + + + + + + | URINE | See Cx Results (A) | | [facility] | | | CULTURE | | | LABORATORY | | | [facility] | | | SERVICES, | | | | | | CORE | | + + + + + + + + | Specimen | + + | Urine - Urine | | specimen collection, | | clean catch | | (procedure) | + + + + + + + | Performing | Address | City/State/Zipcode | Phone Number | | Organization | | | | + + + + + | [facility] | [address] | [place] [address] | | | [place] | [address] | | | + + + + + UA, DIPSTICK ONLY (01/11/2017 11:10 PM PDT) + + + + + [...] + + + + | UROBILINOGE | >=4.0 (A) | <2.0 mg/dL | [facility] | | [...] + + + + | BLOOD | Moderate (A) | Negative | [facility] | | | | | | LABORATORY | | | | | | SERVICES, | | | | | | CORE | | + + + + + + | KETONES | 5.0 (A) | Negative mg/dL | [facility] | | [...] + + + + | SPECIFIC | 1.006Comment: Specific | 1.005 - 1.030 | [facility] | | | GRAVITY | [place]ah[place] performed by | | LABORATORY | | | | refractometry | | SERVICES, | | | | | | CORE | | + + + + + + + + | Specimen | + + | Urine - Urine | | specimen collection, | | clean catch | | (procedure) | + + + + + + + | Performing | Address | City/State/Zipcode | Phone Number | | Organization | | | | + + + + + | [facility] | [address] | [place] [address] | | | SERVICES, CORE | [address] | | | + + + + + URINE, MICROSCOPIC EXAM (01/11/2017 11:10 PM PDT) + + + + + + | Component | Value | Ref Range | Performed | Pathologist | | | | | At | Signature | + + + + + + | RED CELLS | 3 | 0 - 3 /hpf | [facility] | | | | | | LABORATORY | | | | | | SERVICES, | | | | | | CORE | | + + + + + + | WHITE CELLS | 5 | 0 - 5 /hpf | [facility] | | | | | | LABORATORY | | | | | | SERVICES, | | | | | | CORE | | + + + + + + | BACTERIA | Few (A) | None /hpf | [facility] | | | | | | LABORATORY | | | | | | SERVICES, | | | | | | CORE | | + + + + + + | YEAST (LAB) | None | None /hpf | [facility] | | | | | | LABORATORY | | | | | | SERVICES, | | | | | | CORE | | + + + + + + | SQUAMOUS | Many (A) | None /hpf | [facility] | | | EPITHELIAL | | | LABORATORY | | | | | | SERVICES, | | | | | | CORE | | + + + + + + | MUCOUS | None | None /hpf | [facility] | | | | | | LABORATORY | | | | | | SERVICES, | | | | | | CORE | | + + + + + + | TRICHOMONAS | None | None /hpf | [facility] | | | | | | LABORATORY | | | | | | SERVICES, | | | | | | CORE | | + + + + + + | NON-SQUAMOU | None | None /hpf | [facility] | | | S EPITH | | | LABORATORY | | | | | | SERVICES, | | | | | | CORE | | + + + + + + | HYALINE | 0 | 0 - 2 /lpf | [facility] | | | CASTS | | | LABORATORY | | | | | | SERVICES, | | | | | | CORE | | + + + + + + | GRANULAR | 1 | 0 - 2 /lpf | [facility] | | | CASTS | | | LABORATORY | | | | | | SERVICES, | | | | | | CORE | | + + + + + + | CELLULAR | 0 | <=0 /lpf | [facility] | | | CASTS | | | LABORATORY | | | | | | SERVICES, | | | | | | CORE | | + + + + + + | TRIPLE P04 | None | None /hpf | [facility] | | | CRYSTALS | | | LABORATORY | | | | | | SERVICES, | | | | | | CORE | | + + + + + + | CALCIUM | None | None /hpf | [facility] | | | OXALATE | | | LABORATORY | | | H[facility]LIE | | | SERVICES, | | | | | | CORE | | + + + + + + | URIC ACID | None | None /hpf | [facility] | | | CRYSTALS | | | LABORATORY | | | | | | SERVICES, | | | | | | CORE | | + + + + + + | AMORPHOUS | None | None /hpf | [facility] | | | CRYSTALS | | | LABORATORY | | | | | | SERVICES, | | | | | | CORE | | + + + + + + + + | Specimen | + + | Urine - Urine | | specimen collection, | | clean catch | | (procedure) | + + + + + + + | Performing | Address | City/State/Zipcode | Phone Number | | Organization | | | | + + + + + | [facility] | [address] | [place] [address] | | | SERVICES, CORE | [address] | | | + + + + + URINE SCREEN FOR CULTURE (01/11/2017 11:10 PM PDT) + + + + + + | Component | Value | Ref Range | Performed | Pathologist | | | | | At | Signature | + + + + + + | URINE | Positive (A) | Negative | [facility] | | | SCREEN FOR | | | LABORATORY | | | CULTURE | | | SERVICES, | | | | | | CORE | | + + + + + + + + | Specimen | + + | Urine - Urine | | specimen collection, | | clean catch | | (procedure) | + + + + + | Narrative | Performed At | + + + | Culture Screen Positive, specimen sent for culture. 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 Last surgery 03/22/2016 | RECOGNITION | | she underwent RIGHT T8-T9 hemilaminectomy for resection of residual | | | tumor. She presents with new onset RLE weakness with decreased | | | sensation and coordination in setting of fever to 103. LLE at baseline | | | and unchanged. Concern for tumor progression vs thoracic spine | | | pathology. COMPARISON: Thoracic spine MRI 11/27/2016, spine | | | radiograph 05/12/2015, MRI cervical spine 05/08/2015 TECHNIQUE: | | | Multiplanar multi-sequence MRI cervical, thoracic and lumbar spine | | | without and with gadolinium based intravenous contrast FINDINGS: | | | CERVICAL: Alignment: Normal Marrow: Unremarkable Spinal | | | cord: Normal Craniocervical junction: Normal No | | | abnormal enhancement Posterior fossa: Visualized portions are | | | unremarkable Paraspinal soft tissues: Unremarkable THORACIC: | | | Alignment: Unchanged pronounced thoracic kyphosis, otherwise | | | maintained. Marrow: Unremarkable Spinal cord: There is | | | unchanged expansile T2 signal and heterogeneity from the T5-T10 level, | | | with minimally decreased size of enhancing nodule within the spinal | | | cord at the T8 level, now measuring 4 mm in length, previously 6 mm. | | | No additional abnormal cord enhancement is identified. No | | | abnormal enhancement Paraspinal soft tissues: Unremarkable | | | LUMBAR: Alignment: Normal Marrow: Unremarkable Conus: | | | Unremarkable No abnormal enhancement Paraspinal soft | | | tissues: Unremarkable IMPRESSION: 1. No epidural abscess or | | | other new compressive spinal lesion. 2. No evidence of disease | | | progression. Since 11/27/2016, further decrease in size of a T8 | | | subcentimeter enhancing nodule in the thoracic spinal cord resection | | | cavity. I have personally reviewed the images and, if | | | necessary, edited the report. I agree with the report as now | | | presented. | | + + + + + | Procedure Note | + + | Service Account, Radiant Res In Interface - 01/11/2017 2:54 PM PDT EXAM: MRI | | cervical thoracic and lumbar spine with and without contrastHISTORY: 26 yo female s/p 3 | | resections for a thoracic glioneuronal tumor (05/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 Last surgery | | 03/22/2016 she underwent RIGHT T8-T9 hemilaminectomy for resection of residual tumor. She | | presents with new onset RLE weakness with decreased sensation and coordination in | | setting of fever to 103. LLE at baseline and unchanged. Concern for tumor progression vs | | thoracic spine pathology. COMPARISON: Thoracic spine MRI 11/27/2016, spine radiograph | | 05/12/2015, MRI cervical spine 05/08/2015TECHNIQUE: Multiplanar multi-sequence MRI | | cervical, thoracic and lumbar spine without and with gadolinium based intravenous | | contrastFINDINGS:CERVICAL: Alignment: Normal Marrow: Unremarkable Spinal cord: Normal | | Craniocervical junction: Normal No abnormal enhancement Posterior fossa: | | Visualized portions are unremarkable Paraspinal soft tissues: UnremarkableTHORACIC: | | Alignment: Unchanged pronounced thoracic kyphosis, otherwise maintained. Marrow: | | Unremarkable Spinal cord: There is unchanged expansile T2 signal and heterogeneity from | | the T5-T10 level, with minimally decreased size of enhancing nodule within the spinal | | cord at the T8 level, now measuring 4 mm in length, previously 6 mm. No additional | | abnormal cord enhancement is identified. No abnormal enhancement Paraspinal soft | | tissues: UnremarkableLUMBAR: Alignment: Normal Marrow: Unremarkable Conus: | | Unremarkable No abnormal enhancement Paraspinal soft tissues: | | UnremarkableIMPRESSION:1. No epidural abscess or other new compressive spinal lesion.2. | | No evidence of disease progression. Since 11/27/2016, further decrease in size of a T8 | | subcentimeter enhancing nodule in the thoracic spinal cord resection cavity. I have | | personally reviewed the images and, if necessary, edited the report. I agree with the | | report as now presented. | | Alignment: Unchanged pronounced thoracic kyphosis, otherwise maintained. | | Marrow: Unremarkable | | Spinal cord: There is unchanged expansile T2 signal and heterogeneity from the T5-T10 lev el, with minimally decreased size of enhancing nodule within the spinal cord at the T8 level , now measuring 4 mm in length, | |previously 6 mm. No additional abnormal cord enhancement is identified. | | | | No abnormal enhancement | | | | Paraspinal soft tissues: Unremarkable | | | |LUMBAR: | | Alignment: Normal | | Marrow: Unremarkable | | Conus: Unremarkable | | | | No abnormal enhancement | | | | Paraspinal soft tissues: Unremarkable | | | |IMPRESSION: | | | |1. No epidural abscess or other new compressive spinal lesion. | | | |2. No evidence of disease progression. Since 11/27/2016, further decrease in size of a T8 s ubcentimeter enhancing nodule in the thoracic spinal cord resection cavity. | | | | | |I have [...] | | | + +---------+ + + ED INFORMATION EXCHANGE (01/11/2017 8:38 AM PDT) + + | Specimen | + + | | + + + + + | Narrative | Performed At | + + + | [id number] This patient has registered at the | COLLECTIVE | | [facility] Emergency Department For more | MEDICAL | | information visit: | TECHNOLOGIES | | [email or web address] | | | [email or web address] ED Care Guidelines There are currently no ED Care Guidelines | | | in [place] for this patient. Please check your facility's medical | | | records system. Recent Emergency Department Visit Summary Admit | | | Date Facility City State Type Major Type Diagnoses or Chief Complaint | | | Jan 11, 2017 [facility] [place] Emergency | | | Emergency 10,800. transfer Jan 11, 2017 [facility] | | | Community . [place]. [place] Emergency Emergency Recent | | | Inpatient Visit Summary No recorded inpatient visits. E.D. Visit | | | Count (12 mo.) Facility Visits [facility] | | | [place] [facility] [address] [place] [address] | | | [facility] 1 Total 6 Note: Visits indicate total | | | known visits. Care Providers Provider PRC Type Phone Fax | | | Service Dates [facility] Primary Care | | | Current [facility] Primary Care Current | | | TIAN DE JESUS Primary Care | | | Oct 16, 2016 - Current The above information is provided for | | | the sole purpose of patient treatment. Use of this information | | | beyond the terms of Data Sharing Memorandum of Understanding and | | | License Agreement is prohibited. In certain cases not all visits may | | | be represented. Consult the aforementioned facilities for | | | additional information. 2017 [employer] - | | | [place], [place] - [email or web address] | | + + + + + | Procedure Note | + + | Service Account, Rtf Results Inbound - 01/11/2017 8:40 AM PDT Formatting of this | | note might be different from the original.LYNN?NOTIFICATION?01/11/2017 08:38?ANAID, | | QIANA Parsons? patient has registered at the [facility] | | [place] Emergency Department For more information visit: | | [email or web address] ED Care | | GuidelinesThere are currently no ED Care Guidelines in [place] for this patient. Please | | check your facility's medical records system.Recent Emergency Department Visit | | SummaryAdmit Date Facility City State Type Major Type Diagnoses or Chief Complaint Jan | | 2016 [facility] [place] Emergency Emergency 10,800. | | transfer Jan 11, 2017 [facility] [place]. [place] Emergency Emergency Recent | | Inpatient Visit SummaryNo recorded inpatient visits. E.D. Visit Count (12 mo.)Facility | | Visits [facility] 2 [facility] 1 [facility] | | [place] 2 [facility] 1 Total 6 Note: Visits indicate total known | | visits. Care ProvidersProvider PRC Type Phone Fax Service Dates [facility] | | [facility] Primary Care Current [facility] AM[facility]BELL-[facility]LLI Primary Care Current | | [facility] Primary Care Oct 16, 2016 - | | Current The above information is provided for the sole purpose of patient treatment. | | Use of this information beyond the terms of Data Sharing Memorandum of Understanding and | | License Agreement is prohibited. In certain cases not all visits may be represented. | | Consult the aforementioned facilities for additional information. ? 2017 [employer] | | [employer] - [facility] [email or web address] - [email or web address] | |[facility] 2 | |[facility] 1 | |[facility] 2 | |[facility] 1 | |Total 6 | |Note: Visits indicate total known visits. | | | |Care Providers | |Provider PRC Type Phone Fax Service Dates | |[facility] Primary Care Current | |[facility] | |[facility] Primary Care Oct 16, 2016 - Current | | | |The above information is provided for the sole purpose of patient treatment. Use of this in formation beyond the terms of Data Sharing Memorandum of Understanding and License Agreement is prohibited. In | |certain cases not all visits may be represented. Consult the aforementioned facilities for additional information. | |? 2017 [employer] - [place], [place] - [email or web address] | + + + + + + + | Performing | Address | City/State/Zipcode | Phone Number | | Organization | | | | + + + + + | [facility] | [address], | [place], [place] | [phone] | | [employer] | [address] | [address] | | + + + + + documented in this encounter Visit Diagnoses Not on filedocumented in this encounter Administered Medications + +--------+ +--------+------+------+ | Medication Order | MAR | Action | Dose | Rate | Site | | | Action | Date | | | | + +--------+ +--------+------+------+ | acetaminophen (TYLENOL) tablet | Given | 01/19/20 | 650 mg | | | | 650 mg 650 mg, oral, EVERY 6 | | 17 12:37 | | | | | HOURS, 20 doses, First dose | | PM PDT | | | | | (after last modification) on Sun | | | | | | | 01/14/17 at 0400, Last dose on Miriam | | | | | | | 01/18/17 at 2200 | | | | | | + +--------+ +--------+------+------+ +-------+ +--------+---+---+ | Given | 01/19/20 | 650 mg | | | | | 17 5:50 | | | | | | AM PDT | | | | +-------+ +--------+---+---+ | Given | 01/18/20 | 650 mg | | | | | 17 9:46 | | | | | | PM PDT | | | | +-------+ +--------+---+---+ +---+---+ | | | +---+---+ + +-------+ + +---+ + | bacitracin 50,000 Units, | Given | 01/14/20 | 1,000 mL | | Surgical | | ringers (TIS-U-JADIEL) 1,000 mL | | 17 3:59 | | | Site | | INTRAPROCEDURE PRN, Starting Sat | | PM PDT | | | | | 01/13/17 at 1559, Until 01/13/17 | | | | | | | at 1921 | | | | | | + +-------+ + +---+ + +---+---+ | | | +---+---+ + +-------+ +-------+---+---+ | baclofen (LIORESAL) tablet 10 | Given | 01/19/20 | 10 mg | | | | mg 10 mg, oral, THREE TIMES | | 17 9:21 | | | | | DAILY NEEDED, Starting Miriam | | AM PDT | | | | | 01/11/17 at 1804, Until Miriam 01/18/17 | | | | | | | at 2056, Spasticiy | | | | | | + +-------+ +-------+---+---+ +-------+ +-------+---+---+ | Given | 01/18/20 | 10 mg | | | | | 17 9:37 | | | | | | AM PDT | | | | +-------+ +-------+---+---+ | Given | 01/18/20 | 10 mg | | | | | 17 12:36 | | | | | | AM PDT | | | | +-------+ +-------+---+---+ +---+---+ | | | +---+---+ + +-------+ +-------+---+---+ | baclofen (LIORESAL) tablet 15 | Given | 01/18/20 | 15 mg | | | | mg 15 mg, oral, AT BEDTIME, | | 17 9:46 | | | | | First dose (after last reorder) | | PM PDT | | | | | on Miriam 01/11/17 at 2200, Until | | | | | | | Discontinued | | | | | | + +-------+ +-------+---+---+ +-------+ +-------+---+---+ | Given | 01/17/20 | 15 mg | | | | | 17 9:50 | | | | | | PM PDT | | | | +-------+ +-------+---+---+ | Given | 01/16/20 | 15 mg | | | | | 17 10:38 | | | | | | PM PDT | | | | +-------+ +-------+---+---+ +---+---+ | | | +---+---+ + +-------+ +------+---+ + | bupivacaine-EPINEPHrine | Given | 01/14/20 | 8 mL | | Surgical | | (MARCAINE-EPINEPHRINE) 0.5 | | 17 3:17 | | | Site | | %-1:200,000 injection | | PM PDT | | | | | INTRAPROCEDURE PRN, Starting Sat | | | | | | | 01/13/17 at 1517, Until 01/13/17 | | | | | | | at 1921 | | | | | | + +-------+ +------+---+ + +---+---+ | | | +---+---+ + +-------+ +-------+---+---+ | diphenhydrAMINE (BENADRYL) | Given | 01/19/20 | 25 mg | | | | capsule 25 mg 25 mg, oral, EVERY | | 17 9:21 | | | | | 6 HOURS NEEDED, Starting Mon | | AM PDT | | | | | 01/15/17 at 1355, Until Miriam | | | | | | | 01/18/17 at 2056, itching | | | | | | + +-------+ +-------+---+---+ +-------+ +-------+---+---+ | Given | 01/19/20 | 25 mg | | | | | 17 2:54 | | | | | | AM PDT | | | | +-------+ +-------+---+---+ | Given | 01/18/20 | 25 mg | | | | | 17 8:50 | | | | | | PM PDT | | | | +-------+ +-------+---+---+ +---+---+ | | | +---+---+ + +-------+ +-------+---+---+ | DULoxetine (CYMBALTA) capsule | Given | 01/19/20 | 60 mg | | | | 60 mg 60 mg, oral, DAILY, First | | 17 12:36 | | | | | dose on Miriam 01/11/17 at 1830, Until | | PM PDT | | | | | Discontinued | | | | | | + +-------+ +-------+---+---+ +-------+ +-------+---+---+ | Given | 01/18/20 | 60 mg | | | | | 17 11:05 | | | | | | AM PDT | | | | +-------+ +-------+---+---+ | Given | 01/17/20 | 60 mg | | | | | 17 12:09 | | | | | | PM PDT | | | | +-------+ +-------+---+---+ +---+---+ | | | +---+---+ + +-------+ +-------+---+---------+ | enoxaparin (LOVENOX) injection | Given | 01/18/20 | 40 mg | | Abdomen | | 40 mg 40 mg, subcutaneous, EVERY | | 17 9:47 | | | | | EVENING, First dose on Sun | | PM PDT | | | | | 01/14/17 at 2100, Until | | | | | | | Discontinued | | | | | | + +-------+ +-------+---+---------+ +-------+ +-------+---+---------+ | Given | 01/17/20 | 40 mg | | Abdomen | | | 17 9:51 | | | | | | PM PDT | | | | +-------+ +-------+---+---------+ | Given | 01/16/20 | 40 mg | | Abdomen | | | 17 8:27 | | | | | | PM PDT | | | | +-------+ +-------+---+---------+ +---+---+ | | | +---+---+ + +-------+ +--------+---+---+ | gabapentin (NEURONTIN) capsule | Given | 01/19/20 | 300 mg | | | | 300 mg 300 mg, oral, TWICE | | 17 1:38 | | | | | DAILY, First dose (after last | | PM PDT | | | | | modification) on 01/15/17 at | | | | | | | 1400, Until Discontinued | | | | | | + +-------+ +--------+---+---+ +-------+ +--------+---+---+ | Given | 01/19/20 | 300 mg | | | | | 17 9:15 | | | | | | AM PDT | | | | +-------+ +--------+---+---+ | Given | 01/18/20 | 300 mg | | | | | 17 1:45 | | | | | | PM PDT | | | | +-------+ +--------+---+---+ +---+---+ | | | +---+---+ + +-------+ +--------+---+---+ | gabapentin (NEURONTIN) capsule | Given | 01/18/20 | 600 mg | | | | 600 mg 600 mg, oral, AT BEDTIME, | | 17 9:47 | | | | | First dose on Sun01/15/17 at | | PM PDT | | | | | 2200, Until Discontinued | | | | | | + +-------+ +--------+---+---+ +-------+ +--------+---+---+ | Given | 01/17/20 | 600 mg | | | | | 17 9:48 | | | | | | PM PDT | | | | +-------+ +--------+---+---+ | Given | 01/16/20 | 600 mg | | | | | 17 10:38 | | | | | | PM PDT | | | | +-------+ +--------+---+---+ + +---+ | | | + +---+ | glycopyrrolate (ROBINUL) | | | injection 0.2 mg 0.2 mg, | | | intravenous, EVERY 2 HOURS | | | NEEDED, 3 doses, Starting Sun | | | 01/14/17 at 0220, Until Miriam 01/18/17 | | | at 2055, PRN for bradycardia < | | | 40 | | + +---+ | | | + +---+ + +-------+ +------+---+---+ | HYDROmorphone (DILAUDID) tablet | Given | 01/19/20 | 8 mg | | | | 4-8 mg 4-8 mg, oral, EVERY 3 | | 17 12:36 | | | | | HOURS NEEDED, Starting Wed | | PM PDT | | | | | 01/17/17 at 2313, Until Miriam | | | | | | | 01/18/17 at 205, moderate pain, | | | | | | | severe pain | | | | | | + +-------+ +------+---+---+ +-------+ +------+---+---+ | Given | 01/19/20 | 8 mg | | | | | 17 9:14 | | | | | | AM PDT | | | | +-------+ +------+---+---+ | Given | 01/19/20 | 8 mg | | | | | 17 5:50 | | | | | | AM PDT | | | | +-------+ +------+---+---+ +---+---+ | | | +---+---+ + + + +---------+---+ + | lidocaine (LIDODERM) 5 % patch | Applied | 01/19/20 | 2 | | Left Mid | | 2 patch 2 patch, transdermal, | Patch | 17 9:24 | patches | | Back | | EVERY 24 HOURS, First dose on Mon | | AM PDT | | | | | 01/15/17 at 0900, Until | | | | | | | Discontinued | | | | | | + + + +---------+---+ + + + +---------+---+ + | Applied Patch | 01/18/20 | 2 | | Left Mid | | | 17 9:29 | patches | | Back | | | AM PDT | | | | + + +---------+---+ + | Applied Patch | 01/17/20 | 2 | | Left Mid | | | 17 9:02 | patches | | Back | | | AM PDT | | | | + + +---------+---+ + +---+---+ | | | +---+---+ + +-------+ +--------+---+---+ | LORazepam (ATIVAN) tablet 0.5 | Given | 01/19/20 | 0.5 mg | | | | mg 0.5 mg, oral, EVERY 6 HOURS | | 17 1:38 | | | | | NEEDED, Starting Sun01/11/17 at | | PM PDT | | | | | 1756, Until Sun01/18/17 at 2055, | | | | | | | anxiety | | | | | | + +-------+ +--------+---+---+ +-------+ +--------+---+---+ | Given | 01/14/20 | 0.5 mg | | | | | 17 12:21 | | | | | | PM PDT | | | | +-------+ +--------+---+---+ | Given | 01/13/20 | 0.5 mg | | | | | 17 10:23 | | | | | | PM PDT | | | | +-------+ +--------+---+---+ +---+---+ | | | +---+---+ + +-------+ + +---+---+ | multivitamin (THERA VITAMIN) 1 | Given | 01/19/20 | 1 tablet | | | | tablet 1 tablet, oral, DAILY, | | 17 9:14 | | | | | First dose on Sun01/11/17 at 1800, | | AM PDT | | | | | Until Discontinued | | | | | | + +-------+ + +---+---+ +-------+ + +---+---+ | Given | 01/18/20 | 1 tablet | | | | | 17 9:31 | | | | | | AM PDT | | | | +-------+ + +---+---+ | Given | 01/17/20 | 1 tablet | | | | | 17 9:02 | | | | | | AM PDT | | | | +-------+ + +---+---+ +---+---+ | | | +---+---+ + +-------+ +------+---+---+ | ondansetron (ZOFRAN) injection | Given | 01/19/20 | 4 mg | | | | 4 mg 4 mg, intravenous, EVERY 12 | | 17 8:17 | | | | | HOURS NEEDED, Starting Fri | | AM PDT | | | | | 01/12/17 at 1800, Until Miriam 01/18/17 | | | | | | | at 2056, nausea/vomiting, first | | | | | | | line | | | | | | + +-------+ +------+---+---+ +-------+ +------+---+---+ | Given | 01/18/20 | 4 mg | | | | | 17 8:17 | | | | | | AM PDT | | | | +-------+ +------+---+---+ | Given | 01/17/20 | 4 mg | | | | | 17 8:09 | | | | | | AM PDT | | | | +-------+ +------+---+---+ +---+---+ | | | +---+---+ + +-------+ +------+---+---+ | polyethylene glycol (MIRALAX) | Given | 01/18/20 | 34 g | | | | packet 34 g 34 g, oral, THREE | | 17 1:52 | | | | | TIMES DAILY NEEDED, Starting | | PM PDT | | | | | Miriam 01/11/17 at 1756, Until Miriam | | | | | | | 01/18/17 at 6, 1st line - for | | | | | | | no BM for 2 days | | | | | | + +-------+ +------+---+---+ +-------+ +------+---+---+ | Given | 01/17/20 | 34 g | | | | | 17 10:37 | | | | | | PM PDT | | | | +-------+ +------+---+---+ +---+---+ | | | +---+---+ + +-------+ +---------+---+---+ | senna-docusate (SENOKOT S) | Given | 01/19/20 | 4 | | | | 8.6-50 mg 4 tablet 4 tablet, | | 17 9:14 | tablets | | | | oral, TWICE DAILY, First dose on | | AM PDT | | | | | Miriam 01/11/17 at 2100, Until | | | | | | | Discontinued | | | | | | + +-------+ +---------+---+---+ +-------+ +---------+---+---+ | Given | 01/18/20 | 4 | | | | | 17 8:45 | tablets | | | | | PM PDT | | | | +-------+ +---------+---+---+ | Given | 01/18/20 | 4 | | | | | 17 9:30 | tablets | | | | | AM PDT | | | | +-------+ +---------+---+---+ +---+---+ | | | +---+---+ + +-------+ +--------+---+ + | thrombin 5000 unit topical | Given | 01/14/20 | 5,000 | | Surgical | | solution INTRAPROCEDURE PRN, | | 17 5:40 | Units | | Site | | Starting 01/13/17 at 1536, | | PM PDT | | | | | Until 01/13/17 at 1921 | | | | | | + +-------+ +--------+---+ + +-------+ +--------+---+ + | Given | 01/14/20 | 5,000 | | Surgical | | | 17 3:36 | Units | | Site | | | PM PDT | | | | +-------+ +--------+---+ + +---+---+ | | | +---+---+ + +-------+ +-------+---+---+ | traZODone (DESYREL) dose 75 mg | Given | 01/19/20 | 75 mg | | | | 75 mg, oral, AT BEDTIME | | 17 1:12 | | | | | NEEDED, Starting Miriam 01/11/17 at | | AM PDT | | | | | 1756, Until Miriam 01/18/17 at 2056, | | | | | | | insomnia | | | | | | + +-------+ +-------+---+---+ +-------+ +-------+---+---+ | Given | 01/14/20 | 75 mg | | | | | 17 2:21 | | | | | | AM PDT | | | | +-------+ +-------+---+---+ | Given | 01/12/20 | 75 mg | | | | | 17 11:20 | | | | | | PM PDT | | | | +-------+ +-------+---+---+ +---+---+ | | | +---+---+ documented in this encounter
--- OUTSIDE RECORDS SUMMARY | ~2019-06-26 | XMS | Encounter Summary ---
Demographics + + + | Address | [address] | | | [place] [address] | + + + | Home Phone | | + + + | Preferred Language | Unknown | + + + | Marital Status | Single | + + + | Taoist Affiliation | NON | + + + | Race | White | + + + | Ethnic Group | Not or | + + + Author + + + | Author | [facility] | + + + | Organization | [facility] | + + + | Address | [...] Team Providers + +------+ + | Care Certified Rehabilitation Counselor Name | Role | Phone | [...] + + + + | 10/03/ | Anesthesia | 6A Intra Op 3181 | Gonzales Horton, | | | 2019 | Event | [address] | [address] | | | | | [facility] | [address] | | | | | Hospital Admitting | [place], [place] | | | | | Desk Located on the | [address] | | | | | 9th floor | [phone] | | | | | [place], [place] | | | | | | [address] | | | +--------+ + + + + Anesthesia Record + + + + + | Procedure Name | Responsible | Anesthesia Start | Anesthesia Stop Time | | | Anesthesiologist | Time | | + + + + + | [facility] | Gonzales Horton MD | 10/03/18 1428 | 10/03/18 190 | | LAMINECTOMY AND | | | | | 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 Check | Prior to anesthesia start, pt. Identified, examined, chart | | | 4 | | reviewed, PARQ held, anesthetic plan made or approved by | | | 3 | | attending anesthesiologist. NPO status confirmed as appropriate | | | 0 | | for procedure Preoperative evaluation: unchanged | +----+---+ + + | | 1 | Eq Check | Anesthesia machine checked Equipment verified | | | 4 | | | | | 3 | | | | | 1 | | | +----+---+ + + | | 1 | Vitals | Monitors applied Vital signs checked Patient ready for anesthesia | | | 4 | Checked | | | | 3 | | | | | 5 | | | +----+---+ + + | | 1 | ETT | | | | 4 | | | | | 3 | | | | | 7 | | | +----+---+ + + | | 1 | Ready | | | | 5 | | | | | 0 | | | | | 0 | | | +----+---+ + + | | 1 | Timeout | | | | 5 | | | | | 1 | | | | | 8 | | | +----+---+ + + | | 1 | Local | | | | 5 | Anesthetic | | | | 2 | by Surgeon | | | | 4 | | | +----+---+ + + | | 1 | Abx | | | | 5 | Administere | | | | 2 | d | | | | 4 | | | +----+---+ + + | | 1 | Incision | | | | 5 | | | | | 2 | | | | | 7 | | | +----+---+ + + | | 1 | Intraop and | - Patient/Allergies/Procedure - Relevant PMH - Relevant data | | | 5 | Med | (labs/imaging) - Anesthetic (airway, infusions, drug redoses) - | | | 5 | Handoff | Lines/Drains - I/O - Current Phase and significant events - | | | 5 | | Emergence/dispo plans, post-op concerns Fentanyl 200mcg | | | | | Hydromorphone 1mg | +----+---+ + + | | 1 | An Data Art | Surgeon leaning on NIBP cuff | | | 6 | | | | | 2 | | | | | 5 | | | +----+---+ + + | | 1 | Surgery end | | | | 8 | | | | | 5 | | | | | 7 | | | +----+---+ + + | | 1 | An Extubate | Neuromuscular function Intact. Pharynx suctioned. Patient obeys | | | 9 | | commands. Adequate pulmonary mechanics. | | | 0 | | | | | 2 | | | +----+---+ + + | | 1 | an stop | | | | 9 | data | | | | 0 | | | | | 4 | | | +----+---+ + + | | 1 | PACU Rpt | | | | 9 | Given | | | | 0 | | | | | 9 | | | +----+---+ + + | | 1 | Anesthesia | | | | 9 | End | | | | 0 | | | | | 9 | | | +----+---+ + + | | 2 | Post-Op | | | | 1 | Page | | | | 0 | | | | | 0 | | | +----+---+ + + +------+ | Meds | +------+ + + + | Name | Total | + + + | fentaNYL | 225 mcg | + + + | lidocaine 2% | 60 mg | + + + | propofol (DIPRIVAN) 200 mg | 240 mg | + + + | propofol (DIPRIVAN) 200 mg | 890,100 mcg | + + + | rocuronium | 50 mg | + + + | ceFAZolin | 2,000 mg | + + + | PHENYLEPHrine | 200 mcg | + + + | HYDROmorphone | 1 mg | + + + | dexmedetomidine (PRECEDEX) 400 | 107.87 mcg | | mcg in NaCl 0.9 % (NS) 100 mL (4 | | | mcg/mL) IV infusion | | + + + | dexamethasone | 10 mg | + + + | ketamine | 50 mg | + + + | PHENYLEPHrine INF (25mg/250mL) | 4,719.6 mcg | + + + | ondansetron | 4 mg | + + + | neostigmine syr | 3 mg | + + + | glycopyrrolate | 0.4 mg | + + + | diphenhydrAMINE | 25 mg | + + + | LR | 1,500 mL | + + + | LR | 0 mL | + + + + + | Name | + + | O2 FR Avance (Total Liters) | + + | N2O FR Avance (l/min) | + + | Air FR Avance (l/min) | + + | Insp Iso | + + | Et Iso | + + | EtN2O % | [...] Urethr | 01/17/17; 0030; Mabel Hinds | 01/17/170 by | | | nataliia | | Sarah Sifuentes RN | | | Viral | | | | | er | | | | +--------+ + + + | Urethr | 07/08/18; 0900; Trinidad Garcia RN ; | 07/08/18 0900 by | | | al | Quiana; 16 Fr.; 10 mL | Velma Garcia RN | | | Cathet | | | | | er | | | | +--------+ + + + | Incisi | 07/08/18; 1011; MD Toby ; | 07/08/18 1011 by | | | on | Posterior; spine- thoracic | Velma Garcia RN | | +--------+ + + + | Incisi | 10/03/18; 1527; Midline; spine- | 10/03/18 1527 by | | | on | thoracic | Alvina Ribera RN | | +--------+ + + + | Periph | varani; Left; Wrist; 16 g; | 10/03/18 1541 by | 10/08/18 1150 by | | eral | Positive; 10/08/18; 1150 | | Katharine Waldron RN | | IV | | | | +--------+ + + + | Periph | varani; Right; Hand; 18 g; | 10/03/18 1541 by | 10/05/18 0933 by | | eral | Negative; 10/05/18; 932; Per | | Nona Peña RN | | IV | patient/family request (pain) | | | +--------+ + + + | Periph | 10/01/18; 1347; Right; | 10/01/18 1347 by | 10/03/181938 by | | eral | Antecubital; 20 g; Positive; | Dallas Carrillo RN | Mallorie Jacobs RN | | IV | 10/03/18; 1938; No longer present | | | +--------+ + + + | Periph | 10/02/18; 1227; VAT; Left; | 10/02/18 1227 by | 10/04/18 1039 by | | eral | Forearm; 22 g; Normal Saline; No; | Abby Sanches RN | Sasha Che RN | | IV | Positive; 10/04/18; 1039 | | | +--------+ + + + | ETT | 10/03/18; 1437 (created via | 10/03/18 143 by | 10/03/181901 by | | | procedure documentation); 7; | Chuy Gates | Kirt Mcwilliams, | | | Oral; Cuffed; 10/03/18; 1901 | MD Lizette | ANAESTHESIOLOGIST | +--------+ + + + | Urethr | 10/03/18 (Wiped with Castile | 10/03/18 1445 by | 10/07/18 1134 by Eli | | al | Wipes prior to insertion.); 1445; | Alvina Ribera RN | VICKY Page | | Viral | Alvina Ribera RN; Quiana; 16 Fr.; | | | | er | 10 mL; 10/07/18; 1134 | | | +--------+ + + + [...] + | ORLANDO ETT | Routin | 10/03/2018 | | Results for this | | | e | 3:33 PM | | procedure are in the | | | | PDT | | results section. | + +--------+ + + + documented in this encounter Results [place]O ETT (10/03/2018 3:33 PM PDT) + + + | Narrative | Performed At | + + + | Chuy Bauer MD 10/03/2018 3:35 PM AIRWAY | | | MANAGEMENT - ETT Time of Intubation: 10/03/2018 2:37 PM Intubation | | | Reason: For surgical procedure Positioning: Sniffing and Supine | | | Location Performed: OR OXYGENATION Patient was preoxygenated | | | Grade: Grade 1 - Ventilated by mask Manual in-Line Stabilization: No | | | Induction:Routine, without Cricoid Pressure INTUBATION | | | ATTEMPT 1 Blade Type: Oscar Blade #: 2 Laryngoscopic View: Grade I | | | Surgical Airway: no Surgical Airway ETT DETAILS ETT | | | Type:Standard, Hi-Lo Cuffed Intubation Type: Oral Cuff Status: | | | Cuffed Size: 7 ETT secured with adhesive tape Depth at Lip: 22 | | | cm CONFIRMATION Number of Attempts: 1 Atraumatic Laryngoscopy | | | Positive for EtCO2:Waveform capnography Breath Sounds: Bilateral and | | | equal NARRATIVE Attending physically present Authorized by | | | GONZALES HORTON Performed by CHUY BAUER Procedure | | | Comments: Preoxygenated, easy bag mask. G1V with oscar 2, | | | atraumatic passage through cords. Tube taped, eyes lubed and | | | tagadermed. B/l breath sounds before and after prone. | | + + + documented in this encounter Visit Diagnoses Not on filedocumented in this encounter Administered Medications + +--------+ + +------+------+ | Medication Order | MAR | Action | Dose | Rate | Site | | | Action | Date | | | | + +--------+ + +------+------+ | ceFAZolin (ANCEF) injection | Given | 10/04/19 | 2,000 mg | | | | intravenous, INTRAPROCEDURE PRN, | | 19 3:24 | | | | | Starting Miriam 10/03/18 at 1524, | | PM PDT | | | | | Until Sun10/03/18 at 1904 | | | | | | + +--------+ + +------+------+ +---+---+ | | | +---+---+ + +-------+ +-------+---+---+ | dexamethasone (DECADRON) | Given | 10/04/19 | 10 mg | | | | injection INTRAPROCEDURE PRN, | | 19 3:15 | | | | | Starting Miriam 10/03/18 at 1515, | | PM PDT | | | | | Until Miriam 10/03/18 at 1904 | | | | | | + +-------+ +-------+---+---+ +---+---+ | | | +---+---+ + + + + +--------+---+ | dexmedetomidine (PRECEDEX) 400 | Rate/Dos | 10/04/19 | 0.6 | 10.35 | | | mcg in NaCl 0.9 % (NS) 100 mL (4 | e Change | 19 3:47 | mcg/kg/h | mL/hr | | | mcg/mL) IV infusion | | PM PDT | r | | | | INTRAPROCEDURE CONTINUOUS PRN, | | | | | | | Starting Miriam 10/03/18 at 1500, | | | | | | | Until Miriam 10/03/18 at 1904 | | | | | | + + + + +--------+---+ +---------+ + +-------+---+ | New Bag | 10/04/19 | 0.4 | 6.9 | | | | 19 3:00 | mcg/kg/h | mL/hr | | | | PM PDT | r | | | +---------+ + +-------+---+ +---+---+ | | | +---+---+ + +-------+ +-------+---+---+ | diphenhydrAMINE (BENADRYL) | Given | 10/04/19 | 25 mg | | | | injection INTRAPROCEDURE PRN, | | 19 8:59 | | | | | Starting Miriam 10/03/18 at 2058, | | PM PDT | | | | | Until Mriiam 10/03/18 at 2058 | | | | | | + +-------+ +-------+---+---+ +---+---+ | | | +---+---+ + +-------+ +--------+---+---+ | fentaNYL (SUBLIMAZE) injection | Given | 10/04/19 | 25 mcg | | | | intravenous, INTRAPROCEDURE PRN, | | 19 6:48 | | | | | Starting Miriam 10/03/18 at 1434, | | PM PDT | | | | | Until Miriam 10/03/18 at 1904 | | | | | | + +-------+ +--------+---+---+ +-------+ +---------+---+---+ | Given | 10/04/19 | 200 mcg | | | | | 19 2:34 | | | | | | PM PDT | | | | +-------+ +---------+---+---+ +---+---+ | | | +---+---+ + +-------+ +--------+---+---+ | glycopyrrolate (PF) (BOBBY) | Given | 10/04/19 | 0.4 mg | | | | injection soln INTRAPROCEDURE | | 19 6:30 | | | | | PRN, Starting [facility] 10/03/18 at | | PM PDT | | | | | 1830, Until Sun10/03/18 at 1904 | | | | | | + +-------+ +--------+---+---+ +---+---+ | | | +---+---+ + +-------+ +------+---+---+ | HYDROmorphone (DILAUDID) | Given | 10/04/19 | 1 mg | | | | injection intravenous, | | 19 4:19 | | | | | INTRAPROCEDURE PRN, Starting Miriam | | PM PDT | | | | | 10/03/18 at 1619, Until Miriam | | | | | | | 10/03/18 at 1904 | | | | | | + +-------+ +------+---+---+ +---+---+ | | | +---+---+ + +-------+ +-------+---+---+ | ketamine (KETALAR) injection | Given | 10/04/19 | 50 mg | | | | INTRAPROCEDURE PRN, Starting Miriam | | 19 2:33 | | | | | 10/03/18 at 1433, Until Miriam | | PM PDT | | | | | 10/03/18 at 1904 | | | | | | + +-------+ +-------+---+---+ +---+---+ | | | +---+---+ + + + +---+---+---+ | lactated ringers IV | given by | 10/04/19 | | | | | intravenous, INTRAPROCEDURE | | 19 6:49 | | | | | CONTINUOUS PRN, Starting Miriam | anesthes | PM PDT | | | | | 10/03/18 at 1428, Until Miriam | iology | | | | | | 10/03/18 at 1904 | | | | | | + + + +---+---+---+ +---------+ +---+---+---+ | New Bag | 10/04/19 | | | | | | 19 5:20 | | | | | | PM PDT | | | | +---------+ +---+---+---+ | New Bag | 10/04/19 | | | | | | 19 2:28 | | | | | | PM PDT | | | | +---------+ +---+---+---+ +---+---+ | | | +---+---+ + +---------+ +---+ +---+ | lactated ringers IV | New Bag | 10/04/19 | | 75 mL/hr | | | INTRAPROCEDURE CONTINUOUS PRN, | | 19 3:15 | | | | | Starting Miriam 10/03/18 at 1515, | | PM PDT | | | | | Until Miriam 10/03/18 at 1904 | | | | | | + +---------+ +---+ +---+ +---+---+ | | | +---+---+ + +-------+ +-------+---+---+ | lidocaine PF (XYLOCAINE MPF) 20 | Given | 10/04/19 | 60 mg | | | | mg/mL (2 %) injection | | 19 2:34 | | | | | INTRAPROCEDURE PRN, Starting Miriam | | PM PDT | | | | | 10/03/18 at 1434, Until Miriam | | | | | | | 10/03/18 at 1904 | | | | | | + +-------+ +-------+---+---+ +---+---+ | | | +---+---+ + +-------+ +------+---+---+ | neostigmine (PROSTIGMIN) | Given | 10/04/19 | 3 mg | | | | injection intravenous, | | 19 6:30 | | | | | INTRAPROCEDURE PRN, Starting Miriam | | PM PDT | | | | | 10/03/18 at 1830, Until Miriam | | | | | | | 10/03/18 at 1904 | | | | | | + +-------+ +------+---+---+ +---+---+ | | | +---+---+ + +-------+ +------+---+---+ | ondansetron (ZOFRAN) injection | Given | 10/04/19 | 4 mg | | | | INTRAPROCEDURE PRN, Starting Miriam | | 19 6:10 | | | | | 10/03/18 at 1810, Until Miriam | | PM PDT | | | | | 10/03/18 at 1904 | | | | | | + +-------+ +------+---+---+ +---+---+ | | | +---+---+ + +-------+ +---------+---+---+ | PHENYLEPHrine 100 mcg/mL IV | Given | 10/04/19 | 100 mcg | | | | syringe intravenous, | | 19 3:30 | | | | | INTRAPROCEDURE PRN, Starting Miriam | | PM PDT | | | | | 10/03/18 at 1502, Until Miriam | | | | | | | 10/03/18 at 1904 | | | | | | + +-------+ +---------+---+---+ +-------+ +---------+---+---+ | Given | 10/04/19 | 100 mcg | | | | | 19 3:02 | | | | | | PM PDT | | | | +-------+ +---------+---+---+ +---+---+ | | | +---+---+ + + + + +--------+---+ | PHENYLEPHrine 25 mg/250 mL (0.1 | Rate/Dos | 10/04/19 | 0.4 | 16.56 | | | mg/mL) IV infusion (ADC) | e Change | 19 5:20 | mcg/kg/m | mL/hr | | | intravenous, INTRAPROCEDURE | | PM PDT | in | | | | CONTINUOUS PRN, Starting Miriam | | | | | | | 10/03/18 at 1602, Until Miriam | | | | | | | 10/03/18 at 1904 | | | | | | + + + + +--------+---+ + + + +-------+---+ | Restarted | 10/04/19 | 0.2 | 8.28 | | | | 19 5:17 | mcg/kg/m | mL/hr | | | | PM PDT | in | | | + + + +-------+---+ | Rate/Dose Change | 10/04/19 | 0.2 | 8.28 | | | | 19 5:11 | mcg/kg/m | mL/hr | | | | PM PDT | in | | | + + + +-------+---+ +---+---+ | | | +---+---+ + +---------+ + +---+---+ | propofol (DIPRIVAN) 200 mg | New Bag | 10/04/19 | 75 | | | | INTRAPROCEDURE CONTINUOUS PRN, | | 19 3:00 | mcg/kg/m | | | | Starting Miriam 10/03/18 at 1500, | | PM PDT | in | | | | Until Miriam 10/03/18 at 1904 | | | | | | + +---------+ + +---+---+ +---+---+ | | | +---+---+ + +-------+ +-------+---+---+ | propofol (DIPRIVAN) 200 mg | Bolus | 10/04/19 | 40 mg | | | | intravenous, INTRAPROCEDURE | | 19 3:40 | | | | | CONTINUOUS PRN, Starting Miriam | | PM PDT | | | | | 10/03/18 at 1434, Until Miriam | | | | | | | 10/03/18 at 1904 | | | | | | + +-------+ +-------+---+---+ +---------+ +--------+---+---+ | New Bag | 10/04/19 | 200 mg | | | | | 19 2:34 | | | | | | PM PDT | | | | +---------+ +--------+---+---+ +---+---+ | | | +---+---+ + +-------+ +-------+---+---+ | rocuronium (ZEMURON) injection | Given | 10/04/19 | 50 mg | | | | intravenous, INTRAPROCEDURE PRN, | | 19 2:34 | | | | | Starting Miriam 10/03/18 at 1434, | | PM PDT | | | | | Until Miriam 10/03/18 at 1904 | | | | | | + +-------+ +-------+---+---+ +---+---+ | | | +---+---+ documented in this encounter"
--- OUTSIDE RECORDS SUMMARY | ~2019-06-26 | XMS | Encounter Summary ---
Demographics + + + | Address | [address] | | | [place] [address] | + + + | Home Phone | | + + + | Preferred Language | Unknown | + + + | Marital Status | Single | + + + | Taoism Affiliation | NON | + + + | Race | White | + + + | Ethnic Group | Not or | + + + Author + + + | Author | [facility] | + + + | Organization | [facility] | + + + | [...] Team Providers + +------+ + | Care Non Licensed Nuclear Equipment Operator Name | Role | Phone | [...] | | | | Mailcode: CH6A | [facility] | | | | | [place], [place] | [place], [place] | | | | | [address] | [address] | | | | | [phone] | | | +--------+ + + + [...]
--- OUTSIDE RECORDS SUMMARY | ~2019-06-26 | XMS | Encounter Summary ---
Demographics + + + | Address | [address] | | | [place] [address] | + + + | Home Phone | | + + + | Preferred Language | Unknown | + + + | Marital Status | Single | + + + | Hoahaoism Affiliation | NON | + + + | Race | White | + + + | Ethnic Group | Not or | + + + Author + + + | Author | [facility] | + + + | Organization | [facility] | + + + | Address [...] Team Providers + +------+ + | Care Geophysical Data Technician Name | Role | Phone | [...] | | Thoracic | Raegan Nieves, | [facility] [address] | | | | | spine tumor | PA-C [address] | | | | | Procedures | [address] | Mailcode: | | | | | MRI SPINE | [facility], | [facility] | | | | | THORACIC [address] | [place] | for Health | | | | | CONTRAST | [address] | and Healing, | | | | | [place] MRI, | Phone: | Building [address], | | | | | DORSAL SPINE | [phone] | 3rd Floor | | | | | COMBO | Fax: | [place], [place] | | | | | | [phone] | [address] | | | | | | | Phone: | | | | | | | [phone] | | | | | | | Fax: | | | | | | | [phone] | +--------+--------+ + + + + Reason [...] Thoracic | Raegan Nieves, | [facility] [address] | | | | | spine tumor | PA-C [address] | | | | | Procedures | [address] | Mailcode: | | | | | MRI SPINE | [place], | [facility] | | | | | THORACIC [address]WO | [place] | for Health | | | | | CONTRAST | [address] | and Healing, | | | | | [place] MRI, | Phone: | Building [address], | | | | | DORSAL SPINE | [phone] | 3rd Floor | | | | | COMBO | Fax: | [place], [place] | | | | | | [phone] | [address] | | | | | | | Phone: | | | | | | | [phone] | | | | | | | Fax: | | | | | | | [phone] | +--------+--------+ + + + + Encounter Details +--------+ + + + + | Date | Type | Department | Care Team | Description | +--------+ + + + + | 11/27/ | Hospital | Radiology/Imaging | Raegan Doss, | | | 2017 | Encounter | Lab at [facility] [address] | PA-C [address] | | | | | [address] Mailcode: | Ave [facility], [place] | | | | | [facility] for | [address] | | | | | Health and Healing, | [phone] | | | | | [address] | | | | | | Floor [place], [place] | | | | | | [address] | | | | | | [phone] | | | +--------+ + + + [...] | | 0.5 mmol/mL injection 17 mL 17 | | 17 1:00 | | | | | mL [...]
--- OUTSIDE RECORDS SUMMARY | ~2019-06-26 | XMS | Encounter Summary ---
Demographics + + + | Address | [address] | | | [place] [address] | + + + | Home Phone | | + + + | Preferred Language | Unknown | + + + | Marital Status | Single | + + + | Church Affiliation | NON | + + + [...] Team Providers + +------+ + | Care Snow Removal/Plowing Name | Role | Phone | + [...] | | | MRI SPINE | [facility], | Mailcode: | | | | | THORACIC [address]WO | [place] | [address] | | | | | CONTRAST | [address] | [place] | | | | | [place] [facility], | Phone: | Research | | | | | DORSAL SPINE | [phone] | Center | | | | | COMBO | Fax: | [place], [place] | | | | | | [phone] | [address] | | | | | | | Phone: | | | | | | | [phone] | | | | | | | Fax: | | | | | | | [phone] | +--------+--------+ + + + + Reason [...] | | | MRI SPINE | [facility], | Mailcode: | | | | | THORACIC WWO | [place] | [address] | | | | | CONTRAST | [address] | [place] | | | | | [place] [facility], | Phone: | Research | | | | | DORSAL SPINE | [phone] | Center | | | | | COMBO | Fax: | [place], [place] | | | | | | [phone] | [address] | | | | | | | Phone: | | | | | | | [phone] | | | | | | | Fax: | | | | | | | [phone] | +--------+--------+ + + + + Encounter Details +--------+ + + + + | Date | Type | Department | Care Team | Description | +--------+ + + + + | 06/04/ | Hospital | Radiology/Imaging | Raegan Doss, | | | 2017 | Encounter | Lab at [facility] [address] | PA-C [address] | | | | | [address] Mailcode: | Ave [facility], [place] | | | | | [address] | [address] | | | | | Health and Healing, | [phone] | | | | | [facility] , 3rd | | | | | | Floor [place], [place] | | | | | | [address] | | | | | | [phone] | | | +--------+ + + + [...] + + documented as of this encounter Medications at Time of Discharge [...] +---------+--------+ + documented as of this encounter Plan [...]
--- OUTSIDE RECORDS SUMMARY | ~2019-06-26 | XMS | Encounter Summary ---
Demographics + + + | Address | [address] | | | [place] [address] | + + + | Home Phone | | + + + | Preferred Language | Unknown | + + + | Marital Status | Single | + + + | Cheondoism Affiliation | NON | + + + [...] Team Providers + +------+ + | Care Cubing Machine Tender Name | Role | Phone | + [...] | spine tumor | PA-C [address] | | | | | Procedures | [address] | Rd | | | | | MRI SPINE | [place], Mailcode: | | | | | LUMBAR WWO | [place] | [address] | | | | | CONTRAST [place] | [address] | [place] | | | | | MRI, LUMBAR | Phone: | Research | | | | | SPINE COMBO | [phone] | [place] | | | | | | Fax: | [place], [place] | | | | | | [phone] | [address] | | | | | | | Phone: | | | | | | | [phone] | | | | | | | Fax: | | | | | | | [phone] | +--------+--------+ + + + + Reason [...] spine tumor | Medicine | PA-C [address] | | | | | Procedures | [address] | | | | | [place] EST | [facility] | [place], [place] | | | | | PATIENT | Rd | [address] | | | | | LEVEL V | [place], [place] | Phone: | | | | | | [address] | [phone] | | | | | | | Fax: | | | | | | | [phone] | +--------+--------+ + + + + Encounter Details +--------+---------+ + + + | Date | Type | Department | Care Team | Description | +--------+---------+ + + + | 11/26/ | Office | [facility]ine Center at | Raegan Doss, | Thoracic spine tumor | | 2018 | Visit | [facility] [address] | PA-C [address] | (Primary Dx) | | | | Ave Mailcode: | [place], [place] | | | | | [facility] | [address] | | | | | and [place], | [phone] | | | | | [place] [address] | | | | | | [place], [place] | | | | | | [address] | | | | | | [phone] | | | +--------+---------+ + + + [...] + + + | Blood Pressure | 123/73 | 11/26/2017 1:59 PM | | | | | PDT | | + + + + + | Pulse | 75 | 11/26/2017 1:59 PM | | | | | PDT [...] Weight | 72.6 kg (160 lb) | 11/26/2017 1:59 PM | | | | | PDT | | + + + + + | Height | 160 cm (5' 3") | 11/26/2017 1:59 PM | | | | | PDT | | + + + + + | Body Mass Index | 28.34 | 11/26/2017 1:59 PM | | | | | PDT | | + + + + + documented in this encounter Progress Notes Raegan Doss PA-C - 11/26/2017 2:00 PM Merced Fagan is a 26 y.o. female who is seen in clinic today with her boyfriend, sister and friend for a routine imaging follow u p. 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 Since that time she reports having stable symp toms with her greatest residual issue being minimal sensation in her left leg and right dors iflexion weakness. She noted at her last visit in May that she discovered a lump on her right flank/lumba r area that was bothersome to her. It has progressed to the point that it is too uncomfortab le to lie on her back and she has some radicular pain going down her right leg. Her PCP orde red a lumbar MRI that she was supposed to get today in conjunction with her thoracic imaging but this was never received by [facility]. She has recently decided to move to [place] where her boyfriend lives. Ht 1.6 m (5' 3"), Wt 72.6 kg (160 lb), BP 123/73, Pulse 75, BMI 28.34 kg/(m^2). PE: Alert, oriented x3. Speech clear, fluent. Thoracic incision: healed well. Decreased LT sensation to LLE, some deep pressure sensation intact. Patchy LT sensation to RLE including foot. LLE strength at 5 - HF, KF, KE, ADF, APF. RLE strength at 5/5 - HF, KF, KE, APF. 4/5 in ADF. Imagin11/26/17 Thoracic MRI wwo - No evidence of disease progression compared to 7 MRI. Impression: 26 y.o. 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 Stable exam and imaging since her last operation. Ongoing concern with right lumbar growth. Plan: -Patient discussed with Dr. Luis -Lumbar MRI wwo ordered on behalf of PCP to evaluate R lumbar subQ bulge -Repeat Thoracic MRI wwo in 1 year [facility] [address] [place] [phone] documented in this encounter Plan of Treatment Not on filedocumented as of this encounter Results MRI SPINE LUMBAR WWO CONTRAST (11/29/2017 6:40 PM PDT) + + | Specimen | + + | | + + + + + | Narrative | Performed At | + + + | MRI LUMBAR SPINE WITHOUT AND WITH CONTRAST HISTORY: R subQ lump | [facility] | | causing radicular pain, hx neoplasm COMPARISON: None. | RADIOLOGY VOICE | | TECHNIQUE: Multiplanar multi-sequence MRI lumbar spine without and | RECOGNITION 2 | | with gadolinium based intravenous contrast. FINDINGS: | | | ALIGNMENT: Normal. MARROW: Unremarkable. CONUS: Unremarkable. | | | L1-2: Unremarkable. L2-3: Unremarkable. L3-4: Unremarkable. L4-5: | | | Unremarkable. L5-S1: Unremarkable. PARASPINAL SOFT TISSUES: | | | Unremarkable. IMPRESSION: Normal lumbar spine. I have | | | personally reviewed the images and, if necessary, edited the report. I | | | agree with the report as now presented. Final signature: Joey Cheng | | | MD Candi 11/29/2017 9:39 PM Preliminary: Joey Christopher MD | | + + + + + | Procedure Note | + + | Service Account, Radiant Res In Interface - 11/29/2017 9:40 PM PDT MRI LUMBAR SPINE | | WITHOUT AND WITH CONTRAST HISTORY: R subQ lump causing radicular pain, hx neoplasm | | COMPARISON: None. TECHNIQUE: Multiplanar multi-sequence MRI lumbar spine without and | | with gadolinium based intravenous contrast. FINDINGS: ALIGNMENT: Normal.MARROW: | | Unremarkable.CONUS: Unremarkable. L1-2: Unremarkable.L2-3: Unremarkable.L3-4: | | Unremarkable.L4-5: Unremarkable.L5-S1: Unremarkable. PARASPINAL SOFT TISSUES: | | Unremarkable. IMPRESSION: Normal lumbar spine. I have personally reviewed the images | | and, if necessary, edited the report. I agree with the report as now presented. Final | | signature: Joey Christopher MD 11/29/2017 9:39 PM Preliminary: Joey Christopher MD | | | |ALIGNMENT: Normal. | |MARROW: Unremarkable. | |CONUS: Unremarkable. | | | |L1-2: Unremarkable. | |L2-3: Unremarkable. | |L3-4: Unremarkable. | |L4-5: Unremarkable. | |L5-S1: Unremarkable. | | | |PARASPINAL SOFT TISSUES: Unremarkable. | | | |IMPRESSION: | | | | Normal lumbar spine. | | | |I have personally reviewed the images and, if necessary, edited the report. I agree with th e report as now presented. | | | |Final signature: Joey Christopher MD 11/29/2017 9:39 PM | |Preliminary: Joey Christopher MD | + + + +---------+ + [...]
--- OUTSIDE RECORDS SUMMARY | ~2019-06-26 | XMS | Encounter Summary ---
Demographics + + + | Address | [address] | | | [place] [address] | + + + | Home Phone [...] Team Providers + +------+ + | Care Foreman/Project Manager Name | Role | Phone | [...] | | | | MRI SPINE | [place], | Mailcode: | | | | | THORACIC WWO | [place] | [address] | | | | | CONTRAST | [address] | [place] | | | | | [facility], | Phone: | Research | | | | | DORSAL SPINE | [phone] | Center | | | | | COMBO | Fax: | [place], [place] | | | | | | [phone] | [address] | | | | | | | Phone: | | | | | | | [phone] | | | | | | | Fax: | | | | | | | [phone] | +--------+--------+ + + + + Reason [...] | | | [address] | [address] | | | | | | [address] | Ave | | | | | | Rd | [place], [place] | | | | | | [place], [place] | [address] | | | | | | [address] | Phone: | | | | | | | [phone] | | | | | | | Fax: | | | | | | | [phone] | +--------+--------+ + + + + Encounter Details +--------+---------+ + + + | Date | Type | Department | Care Team | Description | +--------+---------+ + + + | 02/14/ | Office | Spine Center at | Raegan Doss, | Spinal cord tumor | | 2017 | Visit | [facility] [address] | PA-C [address] | | | | | [place] Mailcode: | [place], [place] | | | | | [facility] | [address] | | | | | and [place], | [phone] | | | | | [address] | | | | | | [place], [place] | | | | | | [address] | | | | | | [phone] | | | +--------+---------+ + + + [...] much of her sensation. She discharged to [facility] for several weeks of IPR. She currently [...] with time. When she was discharged from [facility] multiple medications were missing that she never [...] 3 months with follow up thoracic [facility] [address] [place] [phone] documented in this encounter Plan of Treatment Not on filedocumented as of this encounter Results MRI SPINE THORACIC [facility] CONTRAST (06/04/2017 2:38 PM PST) + [...]
--- OUTSIDE RECORDS SUMMARY | ~2019-06-26 | XMS | Encounter Summary ---
Demographics + + + | Address | [address] | | | [place] [address] | + + + | Home Phone | | + + + | Preferred Language | Unknown | + + + | Marital Status | Single | + + + | Judaism Affiliation | NON | + + + | Race | White | + + + | Ethnic Group | Not or | + + + Author + + + | Author | [facility] | + + + | Organization | [facility] | + + + | [...] Team Providers + +------+ + | Care Weight Engineer Name | Role | Phone | [...] | | | | | | [facility] | | | | | | Hospital Admitting | | | | | | Desk Located on the | | | | | | 9th floor | | | | | | [place], [place] | | | | | | [address] | | | +--------+ + + + [...]
--- OUTSIDE RECORDS SUMMARY | ~2019-06-26 | XMS | Encounter Summary ---
Demographics + + + | Address | [address] | | | [place] [address] | + + + | Home Phone [...] Author + + + | Author | [facility] | + + + | Organization | [facility] | + + + | Address [...] Team Providers + +------+ + | Care Hair Spinner Name | Role | Phone | + +------+ + | Tiff ChapinP | PCP | | + +------+ + Reason for Visit + + + | Reason | Comments | + + + | New patient | Spinal cord tumor with right leg numbness | | consultation | | + + + Consultation (Routine) +--------+--------+ + + + + | Status | Reason | Specialty | Diagnoses / | Referred By | Referred To | | | | | Procedures | Contact | Contact | +--------+--------+ + + + + | Closed | | Neurological | Diagnoses | Emergency | [place], | | | | Surgery | Spinal cord | Dept [facility] | Rajinder Fisher MD | | | | | tumor ED | [address] | [address] | | | | | f/u T[address] | [address] | Ave | | | | | spinal cord | Rd [facility] | [place], [place] | | | | | tumor with | Hospital | [address] | | | | | right leg | [place], [place] | Phone: | | | | | weakness. | [address] | [phone] | | | | | | Phone: | Fax: | | | | | | [phone] | [phone] | +--------+--------+ + + + + Encounter Details +--------+---------+ + + + | Date | Type | Department | Care Team | Description | +--------+---------+ + + + | 05/12/ | Office | Neurosurgery at | Rajinder Luis MD | Thoracic spine tumor | | 2015 | Visit | [facility] [address] | [address] | (Primary Dx); | | | | Ave Mailcode: [address] | [place], [place] | Spinal cord tumor | | | | [facility] | [address] | | | | | and Healing, | [phone] | | | | | [facility] | | | | | | Floor [place], [place] | | | | | | [address] | | | | | | [phone] | | | +--------+---------+ + + + [...] + + + | Blood Pressure | 129/80 | 05/12/2015 1:32 PM | | | | | PST | | + + + + + | Pulse | 89 | 05/12/2015 1:32 PM | | | | | PST | | + + + + + | Temperature | 36.8 C (98.2 F) | 05/12/2015 1:32 PM | | | | | PST | | + + + + + | Respiratory Rate | 16 | 05/12/2015 1:32 PM | | | | | PST | | + + + + + | Oxygen Saturation | - | - | | + + + + + | Inhaled Oxygen | - | - | | | Concentration | | | | + + + + + | Weight | 86.2 kg (190 lb) | 05/12/2015 1:32 PM | | | | | PST | | + + + + + | Height | 160 cm (5' 3") | 05/12/2015 1:32 PM | | | | | PST | | + + + + + | Body Mass Index | 33.66 | 05/12/2015 1:32 PM | | | | | PST | | + + + + + documented in this encounter Progress Notes Rajinder Luis MD - 05/12/2015 3:34 PM PST NEUROSURGERY Chief Complaint: Left leg weakness for past year History of Present Illness: Ms. Fagan is a 24 year old female who was recently seen in the hospital for right leg weakness and numbness. Since her discharge she has been able to resolve home social matters in preparation for the surgery. She reports that over the past days her LEFT foot has become more numb like her r ight foot was previously. No bowel or bladder disturbances. Review of Systems: All other systems were reviewed on patient questionaire. Current medication list: Current Outpatient Prescriptions Medication Sig acetaminophen 325 mg oral tablet Take 1-2 tablets by mouth every six hours as needed (p ain or fever greater than 38.5 degrees C). dexamethasone 2 mg oral tablet Take 2 tablets by mouth every six hours. polyethylene glycol 17 gram/dose oral powder Take 17 g by mouth once daily as needed (i f no bowel movement in >2 days). senna-docusate 8.6-50 mg oral tablet Take 2 tablets by mouth twice daily as needed (for no bowel movement in >2 days). No current facility-administered medications for this visit. Allergies: Allergies Allergen Reactions Sulfa (Sulfonamide Antibiotics) Unknown Past surgical history: History reviewed. No pertinent past surgical history. Past medical history: History reviewed. No pertinent past medical history. History Social History Marital Status: Single Spouse Name: N/A Number of Children: N/A Years of Education: N/A Social History Main Topics Smoking status: Never Smoker Smokeless tobacco: Not on file Alcohol Use: No Drug Use: No Sexual Activity: Not on file Other Topics Concern Not on file Social History Narrative History Smoking status Never Smoker Smokeless tobacco Not on file Family History: I asked and the patient's family history is non-contributory for presenting complaint and findings. Social History: No drinking History Smoking status Never Smoker Smokeless tobacco Not on file Physical Exam: Constitutional: BP 129/80 | Pulse 89 | Temp (Src) 36.8 C (98.2 F) (Oral) | RR 16 | Ht 1 .6 m (5' 3") | Wt 86.183 kg (190 lb) | LMP 04/26/2015 | BMI 33.67 kg/(m^2) No acute distress, well-groomed, obese. Heent: NC/AT Spine: Lumbar: ROM normal Cecilio's Signs Exam: Superficial tenderness was absent. Areas of tenderness: Thoracic - absent Lumbar - absent Lumbosacral junction - absent Right buttock - absent Left buttock - absent Musculoskeletal: MOTOR SCORE LEFT RIGHT C5 (Shoulder Abduct) 5 5 C6 (Elbow Flex) 5 5 C7 (Elbow Ext) 5 5 C8 (Wrist Ext) 5 5 T1 (Pinky Abd) 5 5 L2 (Hip Flex) 5 3 L3 (Knee Ext) 5 3 L4 (Dorsiflexion) 5 3 L5 (EHL) 5 4 S1 (Plantar Flex) 5 4 Gait: antalgic. Favors the right leg Station: abNormal. Tone: Normal tone in upper and lower extremities. No rigidity, atrophy, or abnormal moveme nts. Neurological: Sensation grossly intact to light touch throughout. Anal Sphincter: Deferred. TENDON REFLEXES LEFT RIGHT C5-6 (Biceps) 2 2 C6 (Brachioradialis) 1 1 C7-8 (Triceps) 1 1 L3-4 (Knee jerk) 2 2 S1-2 (Achilles) 1 1 PATHOLOGIC REFLEXES LEFT RIGHT Barriga neg neg Plantar Flexion neg neg Clonus neg neg Diganosis: 1. Intradural intramedullary tumor Plan: Given the progression of symptoms, I've recommended that we proceed urgently to surgery giv en the concerning imaging findings. I've explained the operation and discussed risks associated with it. The main risks: infec tion, need for reoperation, paralysis, CSF leak, and potential for need for instrumentation of an unstable spine. The patient, sister, and mother had full understanding of the severity of the situation and would like to proceed with surgery. Rajinder Luis M.D. documented in this enc ounter Plan of [...]
--- OUTSIDE RECORDS SUMMARY | ~2019-06-26 | XMS | Clinical Summary ---
Demographics + + + | Address | [address] | | | [place] [address] | + + + | Home Phone | | + + + | Preferred Language | Unknown | + + + | Marital Status | Unknown | + + + | Episcopalian Affiliation | Unknown | + + + | Race | Unknown | + + + | Ethnic Group | Unknown | + + + Author + + + | Author | [facility] | | | and [place] | + + + | Organization | [facility] | | | and [place] | + + + | Address | Unknown | + + + | Phone | Unavailable | + + + Support + + + + + | Name | Relationship | Address | Phone | + + + + + | Harman Padilla | ECON | [address] | | | | # [id number], [place] | | | | | [address] | | + + + + + Care Team Providers + +------+ + | Care Print Designer Name | Role | Phone | + +------+ + | Tiff Chapin NP | PCP | | + +------+ + Allergies Not on File Medications Not on file Active Problems Not on file Social History + +-------+ +--------+------+ | Tobacco Use | Types | Packs/Day | Years | Date | | | | | Used | | + +-------+ +--------+------+ | Never Assessed | | | | | + +-------+ +--------+------+ + + + | Sex Assigned at [...] recent travel history available. | + + Last Filed Vital Signs Not on file Plan of Treatment + + + + + | Health Maintenance | Due Date | Last Done | Comments | + + + + + | Vaccine: | | | | | Dtap/Tdap/Td (1 - | 4 | | | | Tdap) | | | | + + + + + | Vaccine: HPV (1 - | | | | | Female 2-dose | 4 | | | | series) | | | | + + + + + | Cervical Cancer | | | | | Screening (Pap) | 4 | | | + + + + + | Vaccine: Influenza | | | | | (#1) | 9 | | | + + + + + Results Not on filefrom Last 3 Months Insurance + +--------+ +--------+ +---------+--------+ | Payer | Benefi | Subscriber | Effect | Phone | Address | Type | | | t Plan | ID | edith | | | | | | / | | Dates | | | | | | Group | | | | | | + +--------+ +--------+ +---------+--------+ | [employer] | [employer] | [id number] | 05/06/ | [phone] | | [employer] | | MEDICAID HMO | HEALTH | | 2015-P | 1 | | id | | | MDCD | | resent | | | | | | [place] | | | | | | + +--------+ +--------+ +---------+--------+ + +--------+ +--------+ + + | Guarantor Name | Accoun | Relation to | Date | Phone | Billing Address | | | t Type | Patient | of | | | | | | | | | | + +--------+ +--------+ + + | Matt Fagan T | Person | Self [birth year] | [address] | | | al/Fam | | 1990 | [phone] | [id number] | | | [place] | | | [address] (Home) | [place] [address] | + +--------+ +--------+ + + | Matt Fagan T | Person | Self | [birth year] | [address] | | | al/Fam | | 1990 | [phone] | [id number] | | | [place] | | | [address] (Home) | [place] [address] | + +--------+ +--------+ + + Advance Directives + + + + + | Type | Date Recorded | Patient | Explanation | | | | Geology Teacher | | + + + + + | Power of | | | | | Underground Distribution Engineer | | | | + + + + + | Advance | | | | | Directive | | | | + + + + +"
--- OUTSIDE RECORDS SUMMARY | ~2019-06-26 | XMS | Encounter Summary ---
Demographics + + + | Address | [address] | | | [place] [address] | + + + | Home Phone | | + + + | Preferred Language | Unknown | + + + | Marital Status | Single | + + + | Baptism Affiliation | NON | + + + | Race | White | + + + | Ethnic Group | Not or | + + + Author + + + | Author | [facility] | + + + | Organization | [facility] | + + + | [...] Team Providers + +------+ + | Care Bioprocess Development Engineer Name | Role | Phone | [...] | on | AM[facility]UL[facility]ORY [address] | | | | | [address] | [place], | | | | | Mailcode: [place] | [place] [address] | | | | | [place], [place] | | | | | | [address] | | | | | | [phone] | | | +--------+ + + + [...]
--- OUTSIDE RECORDS SUMMARY | ~2019-06-26 | XMS | Encounter Summary ---
Demographics + + + | Address | [address] | | | [place] [address] | + + + | Home Phone [...] Team Providers + +------+ + | Care Filter Press Tender Name | Role | Phone | + +------+ + | Tiff Chapin | PCP | | + +------+ + Reason for Visit + + + | Reason | Comments | + + + | Postoperative visit | | + + + Other (Routine) +--------+--------+ + + + + | Status | Reason | Specialty | Diagnoses / | Referred By | Referred To | | | | | Procedures | Contact | Contact | +--------+--------+ + + + + | Closed | | Neurological | | Emergency | Luis, | | | | Surgery | | Dept Hrc | Rajinder Fisher MD | | | | | | [address] | [address] | | | | | | [address] | Ave | | | | | | Rd [facility] | [place], [place] | | | | | | [facility] | [address] | | | | | | [place], [place] | Phone: | | | | | | [address] | [phone] | | | | | | Phone: | Fax: | | | | | | [phone] | [phone] | +--------+--------+ + + + + Encounter Details +--------+---------+ + + + | Date | Type | Department | Care Team | Description | +--------+---------+ + + + | 11/07/ | Office | Neurosurgery at | Reagan Doss, | Spinal cord tumor | | 2016 | Visit | [address] | PA-C [address] | (Primary Dx) | | | | [place] Mailcode: CH8N | [place], [place] | | | | | [facility] | [address] | | | | | and Healing, | [phone] | | | | | [facility] | | | | | | Floor [facility] [place] | | | | | | [address] | | | | | | [phone] | | | +--------+---------+ + + + [...] + + + + | Weight | 84.2 kg (185 lb 10 | 11/08/2015 1:54 PM | | | | oz) | PDT | | + + + + + | Height | 160 cm (5' 3") | 11/08/2015 1:54 PM | | | | | PDT | | + + + + + | Body Mass Index | 32.88 | 11/08/2015 1:54 PM | | | | | PDT | | + + + + + documented in this encounter Progress Notes Raegan Doss PA-C - 11/08/2015 3:26 PM PDTFormatting of this note might be different f rom the original. Matt Fagan returns to clinic today to discuss her recent move to [place] and medica tion coverage. She moved in 1 week ago with her boyfriend's family and would like to establi sh with a local PCP. She has not seen her PCP, Tiff SPIVEY, since discharging from [facility] recently and is unsure of who can cover her medications until she finds a new PCP. She has n ot started actively looking and has not contacted her PCP's office with this plan. She is re questing that I take over Rx refills until she can establish with a local PCP. Functionally, she is doing well. She feels that her leg strength is slowly improving, thoug h she needs at least a cane or stroller to steady herself when she walks. Her daughter's st alaniz is convenient for this purpose. Her sensation and proprioception loss has not changed . She is having perhaps less sensation with her bladder, where she can kind of sense when s he needs to urinate, but not all the time. She has not tried straight cathing herself after a void to see if there is any residual. She is planning on applying for her drivers license soon and would like to start PT session s at [facility]. Ht 1.6 m (5' 3"), Wt 84.2 kg (185 lb 10 oz), BMI 32.89 kg/(m^2). PE: Alert, oriented x3. Speech clear, fluent. Gaze conjugate. Face symmetric. LT sensation intact above waist line. Impaired below this level. Motor: HF KF KE APF ADF Left 5 5 5 5 5 Right 4+ 4 4- 4+ 4+ Walks with limp in R leg. Uses a stroller for support. 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 Improvement in BLE strength post-op. Patient has now moved to [place] and wishes t o establish PCP care locally. Plan: -The patient will call her PCP, PATRIC Becerra, and ask if she will be willing to contin ue writing prescriptions for her while she looks for a PCP in the [facility] area. -The patient will actively look for a PCP locally. -The patient will call [facility] PT to schedule follow up PT sessions -If the pt's PCP is unable/unwilling to continue writing for prescription medications, then I will be willing to cover for this until the patient establishes with a local PCP. The pat bernardo's current medications were updated by myself personally. -I recommended monitoring fluid intake and drinking at least 3/4 a gallon of water a day. A fter 1 day of this, void and then self cath to see if there is any residual. -The patient will contact me [facility] [address] Mailcode: [address] [address] documented in this encounter Plan of Treatment Not on filedocumented as of this encounter Visit Diagnoses + + | Diagnosis | + + | 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
--- OUTSIDE RECORDS SUMMARY | ~2019-06-26 | XMS | Encounter Summary ---
Demographics + + + | Address | [address] | | | [place] [address] | + + + | Home Phone [...] Team Providers + +------+ + | Care Heavy Line Technician Name | Role | Phone | [...] | 2017 | Pass | Services at [facility] | | | | | | [address] | | | | | | Marla Abdul Mailcode: | | | | | | [address] | | | | | | [facility] | | | | | | [place], [place] | | | | | | [address] | | | | | | [phone] | | | +--------+ + + + [...]
--- OUTSIDE RECORDS SUMMARY | ~2019-06-26 | XMS | Encounter Summary ---
Demographics + + + | Address | [address] | | | [place] [address] | + + + | Home Phone [...] Team Providers + +------+ + | Care Family And Consumer Education Teacher Name | Role | Phone | [...] | Radiology | Diagnoses | Romario, | Toby | | | | | Spinal cord | Raegan Nieves, | Rajinder Fisher MD | | | | | tumor | PA-C [address] | [address] | | | | | Thoracic | [address] | Ave | | | | | spine tumor | [place], | [place], [place] | | | | | Procedures | [place] | [address] | | | | | MRI SPINE | [address] | Phone: | | | | | THORACIC WWO | Phone: | [phone] | | | | | CONTRAST | [phone] | Fax: | | | | | RI MRI, | Fax: | [phone] | | | | | DORSAL SPINE | [phone] | | | | | | COMBO | | | +--------+--------+ + + + + Reason for Visit Diagnostic Testing (Routine) +--------+--------+ + + + + | Status | Reason | Specialty | Diagnoses / | Referred By | Referred To | | | | | Procedures | Contact | Contact | +--------+--------+ + + + + | Closed | | Radiology | Diagnoses | Romario, | Toby, | | | | | Spinal cord | Raegan Nieves, | Rajinder Fisher MD | | | | | tumor | PA-C [address] | [address] | | | | | Thoracic | [address] | Ave | | | | | spine tumor | [place], | [place], [place] | | | | | Procedures | [place] | [address] | | | | | MRI SPINE | [address] | Phone: | | | | | THORACIC WWO | Phone: | [phone] | | | | | CONTRAST | [phone] | Fax: | | | | | [place] MRI, | Fax: | [phone] | | | | | DORSAL SPINE | [phone] | | | | | | COMBO | | | +--------+--------+ + + + + Encounter Details +--------+ + + + + | Date | Type | Department | Care Team | Description | +--------+ + + + + | 01/16/ | Hospital | Radiology/Imaging | | | | 2015 | Encounter | Lab at [facility] [address] | | | | [address] [place] Mailcode: | | | | | | [facility] | | | | | | Health and Healing, | | | | | | Building [address], 3rd | | | | | | Floor [facility] [place] | | | | | | [address] | | | | | | [phone] | | | +--------+ + + + [...] | MRI SPINE THORACIC | Routin | 01/17/2016 | Spinal cord tumor | Results for this | | WWO CONT | e | 12:48 PM | Thoracic spine | procedure are in the | | | | PDT | tumor | results section. 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 | | | | | | FINDINGS: Previous T5 | | | | | | partial laminectomy and | | | | | | T6-7 laminectomies with | | | | | | spinal cord | | | | | | massresection. Previous | | | | | | right T9-10 | | | | | | hemilaminectomy. | | | | | | Interval improvement a | | | | | | smalldorsal epidural | | | | | | fluid collection at | | | | | | T5-6. There is a | | | | | | persistent small | | | | | | dorsalepidural fluid | | | | | | collection about the T10 | | | | | | level. There is | | | | | | interval decrease in | | | | | | size of the residual | | | | | | peripherally | | | | | | enhancinglesion centered | | | | | | at the T7-8 and upper | | | | | | T8 level which measures | | | | | | 1.5 x 0.7 x 0.6cm, | | | | | | previously 2.0 x 0.8 x | | | | | | 0.7 cm. There is | | | | | | development of an | | | | | | additionalenhancing cord | | | | | | nodule at the lower T9 | | | | | | level measuring 1 x 0.5 | | | | | | x 0.4 cm.Expansile T2 | | | | | | hyperintensity within | | | | | | the cord from T3-4 to | | | | | | the lower T10 levelhas | | | | | | not significantly | | | | | | changed since September | | | | | | 2015, however, has | | | | | | slightly improvedsince | | | | | | May 2015. There is | | | | | | normal thoracic | | | | | | alignment. The vertebral | | | | | | body heights are | | | | | | maintained.Marrow signal | | | | | | is within normal | | | | | | limits. Paraspinous post | | | | | | surgical changes | | | | | | areagain noted. | | | | | | IMPRESSION: 1. Prior | | | | | | spinal cord tumor | | | | | | debulking with decreased | | | | | | size of the | | | | | | enhancingnodule at the | | | | | | T7-T8 level. Development | | | | | | of a new enhancing | | | | | | nodule at the [id number]. | | | | | | 2. Persistent signal | | | | | | abnormality within the | | | | | | spinal cord from T3-4 to | | | | | | T10,slightly improved | | | | | | since May 2015. | | | | | | Attending Radiologists: | | | | | | JENNIFER ODEN, | | | | | | MDAuthor: SUMEET SANTORO, | | | | | | I personally reviewed | | | | | | the images and, if | | | | | | necessary, edited the | | | | | | report. I agreewith the | | | | | | report as now presented. 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
--- OUTSIDE RECORDS SUMMARY | ~2019-06-26 | XMS | Encounter Summary ---
Demographics + + + | Address | [address] | | | [place] [address] | + + + | Home Phone | | + + + | Preferred Language | Unknown | + + + | Marital Status | Single | + + + | Yazdanism Affiliation | NON | + + + | Race | White | + + + | Ethnic Group | Not or | + + + Author + + + | Author | [facility] | + + + | Organization | [facility] | + + + | Address [...] Team Providers + +------+ + | Care Copy Manager Name | Role | Phone | + +------+ + | Tiff Chapin | PCP | | + +------+ + Encounter Details +--------+------+ + + + | Date | Type | Department | Care Team | Description | +--------+------+ + + + | 07/12/ | Lab | Laboratory at [facility] | | Dysuria | | 2015 | | [address] | | | | | | [place], [place] | | | | | | [address] | | | | | | [phone] | | | +--------+------+ + + + Social History + +-------+ [...] | UA, DIPSTICK ONLY | Routin | 07/12/2015 | Dysuria | Results for this | | | e | 2:45 PM | | procedure are in the | | | | PST | | results section. | + +--------+ + + + | URINE, MICROSCOPIC | Routin | 07/12/2015 | Dysuria | Results for this | | EXAM | e | 2:45 PM | | procedure are in the | | | | PST | | results section. | + +--------+ + + + | URINE SCREEN FOR | Routin | 07/12/2015 | Dysuria | Results for this | | CULTURE | e | 2:45 PM | | procedure are in the | | | | PST | | results section. | + +--------+ + + + documented in this encounter Results PORTILLO CARO ONLY (07/12/2015 2:45 PM PST) + + + + + [...] + + | SPECIFIC | 1.023 | 1.005 - 1.030 | [facility] | [...] + + + + + | [facility] | [address] | [place] [address] | | | SERVICES, CORE | [address] | | | + + + + + URINE, MICROSCOPIC EXAM (07/12/2015 2:45 PM PST) + +---------+ + + + [...] +---------+ + + + | MUCOUS | Few (A) | None /hpf | [...] LABORATORY | [address] | [place] [address] | | | HORACIO, NINO | [address] | | | + + + + + URINE SCREEN FOR CULTURE (07/12/2015 2:45 PM PST) + + + + + [...] | [facility] | [address] | [place] [address] | | | SERVICES, NINO | [address] | | | + + + + + documented in this encounter Visit Diagnoses + + | Diagnosis | + + | Dysuria | + + documented in this encounter"
--- OUTSIDE RECORDS SUMMARY | ~2019-06-26 | XMS | Encounter Summary ---
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 (dos: ) | + + + Encounter Details +--------+ + + + + | Date | Type | Department | Care Team | Description | +--------+ + + + + | 09/16/ | Telephone | Neurosurgery at | Rajinder Luis MD | Post-discharge | | 2016 | | [facility] [address] | [address] | follow-up (s/p | | | | Ave Mailcode: CH8N | [place], [place] | discharge 09/15/15: | | | | [place] [facility] | [address] | Right T9, T10 | | | | and Healing, | [phone] | hemilaminectomies | | | | Building | | for resection of | | | | Floor [place], [place] | | intramedullary | | | | [address] | | spinal cord tumor. | | | | [phone] | | (dos: )) | +--------+ + + + + Social [...]
--- OUTSIDE RECORDS SUMMARY | ~2019-06-26 | XMS | Encounter Summary ---
Demographics + + + | Address | [address] | | | [place] [address] | + + + | Home Phone | | + + + | Preferred Language | Unknown | + + + | Marital Status | Single | + + + | Gnosticism Affiliation | NON | + + + | Race | White | + + + | Ethnic Group | Not or | + + + Author + + + | Author | [facility] | + + + | Organization | [facility] | + + + | Address | [...] Team Providers + +------+ + | Care Iron Setter Name | Role | Phone | + [...] | | | | [address] | [place], [place] | | | | | | Rd | [address] | | | | | | [place], [place] | Phone: | | | | | | [address] | [phone] | | | | | | | Fax: | | | | | | | [phone] | +--------+--------+ + + + + Encounter Details +--------+---------+ + + + | Date | Type | Department | Care Team | Description | +--------+---------+ + + + | 11/27/ | Office | Spine Center at | Raegan Doss, | Spinal cord tumor | | 2017 | Visit | [facility] [address] | PA-C [address] | (Primary Dx) | | | | [place] Mailcode: | [place], [place] | | | | | [facility] | [address] | | | | | and [place], | [phone] | | | | | [address] | | | | | | [place], [place] | | | | | | [address] | | | | | | [phone] | | | +--------+---------+ + + + [...] specifics. 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 She takes gabapentin at 300mg daily for [...] -Patient discussed and seen with Dr. Toby Desai to increase gabapentin to 300mg TID; if LLE symptoms have not improved okay to slowly titrate up with PCP instruction -Plan for repeat thoracic MRI wwo in 1 year for surveillance [facility] AT [address] [address] documented in this encounter Plan [...] [facility] | [address] | [place] [address] | | | LAB | | | | + + + + + | [facility] | [address] | [place] [address] | | | LAB | | | [...] | | | | | | | [id number] SITE: | | | | | | [...] at: | | | | | | [facility] | | | | + + + + + + + + | Specimen | + + | | + + + + + + + | Performing | Address | City/State/Zipcode | Phone Number | | Organization | | | | + + + + + | [facility] | [address] | [place] [address] | | | LAB | | | | + + + + + | [facility] | [address] | [place] [address] | | | LAB | | | [...] [facility] | [address] | [place] [address] | | | LAB | | | | + + + + + | [facility] | [address] | [place] [address] | | | LAB | | | [...] [facility] | [address] | [place] [address] | | | LAB | | | | + + + + + | [facility] | [address] | [place] [address] | | | LAB | | | [...] [facility] | [address] | [place] [address] | | | LAB | | | | + + + + + | [facility] | [address] | [place] [address] | | | LAB | | | [...] mL/min/1.73m2 | [facility] | | | [place] | | | | | + +---------+ [...] [address] | [place] [address] | | | LAB | | | | + + + + + | [facility] | [address] | [place] [address] | | | LAB | | | [...] [facility] | [address] | [place] [address] | | | LAB | | | | + + + + + | [facility] | [address] | [place] [address] | | | LAB | | | [...] [facility] | [address] | [place] [address] | | | LAB | | | | + + + + + | [facility] | [address] | [place] [address] | | | LAB | | | [...] | | | | | | | [id number] SITE: | | | | | | [...] [facility] | [address] | [place] [address] | | | LAB | | | | + + + + + | [facility] | [address] | [place] [address] | | | LAB | | | [...] | | | | | | | [id number] SITE: | | | | | | [...] [facility] | [address] | [place] [address] | | | LAB | | | | + + + + + | [facility] | [address] | [place] [address] | | | LAB | | | [...] | | | | | | | [id number] SITE: | | | | | | [...] at: | | | | | | [facility] | | | | + + + + + + + + | Specimen | + + | | + + + + + + + | Performing | Address | City/State/Zipcode | Phone Number | | Organization | | | | + + + + + | [facility] | [address] | [place] [address] | | | LAB | | | | + + + + + | [facility] | [address] | [place] [address] | | | LAB | | | [...] [facility] | [address] | [place] [address] | | | LAB | | | | + + + + + | [facility] | [address] | [place] [address] | | | LAB | | | [...] [facility] | [address] | [place] [address] | | | LAB | | | | + + + + + | [facility] | [address] | [place] [address] | | | LAB | | | | + + + + + documented in this encounter Visit Diagnoses + + | Diagnosis | + + | 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
--- OUTSIDE RECORDS SUMMARY | ~2019-06-26 | XMS | Encounter Summary ---
Demographics + + + | Address | [address] | | | [place] [address] | + + + | Home Phone [...] + + + | Author | [facility] | + + + | Organization | [facility] | + + + | Address [...] Team Providers + +------+ + | Care Hadoop Analyst Name | Role | Phone | + +------+ + | Tiff Chapin | PCP | | + +------+ + Encounter Details +--------+------+ + + + | Date | Type | Department | Care Team | Description | +--------+------+ + + + | 07/12/ | Lab | Laboratory at [facility] | | Dysuria | | 2015 | | [address] | | | | | | [place], [place] | | | | | | [address] | | | | | | [phone] | | | +--------+------+ + + + [...] | + + + + + | [facility] | [address] | [place] [address] | | | SERVICES, CORE | JEAN [...] LABORATORY | [address] | [place] [address] | | | HORACIO, NINO | JEAN [...] LABORATORY | [address] | [place] [address] | | | SERVICES, NINO | [address] | | | + + + + + documented in this encounter Visit Diagnoses + + | Diagnosis | + + | Dysuria | + + documented in this encounter"
--- OUTSIDE RECORDS SUMMARY | ~2019-06-26 | XMS | Encounter Summary ---
Demographics + + + | Address | [address] | | | [place] [address] | + + + | Home Phone [...] Team Providers + +------+ + | Care Amplifier Mechanic Name | Role | Phone | + [...] Description | +--------+---------+ + + + | 10/03/ | Surgery | 6A Intra Op [id number] | Rajinder Luis MD | [facility] | | 2019 | | [address] [place] | [address] | LAMINECTOMY AND | | | | [place]o [facility] Main | [place], [place] | resection of | | | | Hospital Admitting | [phone] | intradural spinal | | | | Desk Located on the | [phone] | tumor | | | | 9th floor | | | | | | [place], [place] | | | | | | [address] | | | +--------+---------+ + + + [...] Rajinder Luis MD PCP: PATRIC Flores Service: [facility] Neurosurgery Diagnoses Principal Final Diagnosis: Progressive thoracic [...] 09, 2015, March 22, 2016, January 13, and most recently July 08, 2018. She [...] on the 1 2th floor at the [facility] on the [facility] located at [address] [place] [address]. Please call [phone] if you have any questions or concerns [...] (10/05/18 1244) Discharge Patient To: Interhospital Transfer [facility] Does patient have a planned readmission: No Discharge Summary Completed?: Yes. 10/08/2018 Discharging Provider: RAHEEM DOSS PA-C Date Completed: 10/08/2018 Time Completed: 10:36 AM Discharging Attending: Rajinder Luis MD [facility] [address] [place] [address] documented in this encounter Medications at Time [...] tablet by | 30 | 0 | 10/09/19 | | | oral tablet | mouth [...] Intake/Output Summary (Last 24 hours) at 10/07/18 08 Last data filed at 10/07/18 0535 Gross [...] on ppx lovenox. Dispo: To [facility] once accepted, hopeful for today. RAHEEM DOSS PA-C [facility] [address] [place] [address] dams, PHILIPPE Mena - 10/07/2018 8:33 AM PDT Neurosurgery Progress Note Hospital Day:6 Author; RAHEEM DOSS PA-C Attending Physician: Rajinder [...] Intake/Output Summary (Last 24 hours) at 10/07/18 0833 Last data filed at 10/07/18 0535 Gross [...] in bed, on ppx lovenox. Dispo: To [facility] once accepted. RAHEEM DOSS PA-C [facility] [address] [place] [address] Daniel Arechiga MD - 10/06/2018 11:06 AM [...] WORRELL Routine Cultures PROCEDURE: Strep Screen Culture [[id number]: 11/05/2017 16:4 4 PDT P1] SOURCE: Throat STARTED: 11/05/2017 20:3 9 PDT FREE TEXT SOURCE: BODY SITE: FINAL REPORTS Final Report [] Verified Date/Time: 11/07/2017 11:07 PDT No beta Strep isolated. 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 Ana roberts presented to ED 10/01 after worsening of [...] Please contact the neurosurgery blackburn on-call pager [phone] with questions. Daniel Barahona M.D. Neurosurgery PGY-1 Elif Schwartz PA - 10/05/2018 11:02 AM PDT NEUROSURGERY INPATIENT PROGRESS NOTE Hospital Day:4 Author; RAOUL MobleyC Attending Physician: Rajinder Luis MD Interval Hx: [...] 10/05/18 1103 Last data filed at 10/05/18 0927 Gross per 24 hour Intake 2362 ml [...] control, planning for IPR Elif Mcclain PA-C [facility] [address] [place] [address] FoJulio lobo PA-C - 10/04/2018 8:39 AM PDT Neurosurgery [...] noted deficits below Delt Tri Bi WE High Pressure Firer HF KE APF ADF Left 5 5 [...] SPINE THOR / LUMB WWO CONTRAST Order: [id number] Performed: 10/01/2018 17:52 Status: Final result Visible [...] Secondary to clinical course Julio Wahl PA-C [facility] [address] [place] [address] Derick Dave MD,P hD - 10/03/2018 10:00 [...] DERICK REYES MD,PhD Resident Neurological Surgery Pgr. [id number] Raheem Palmer PA-C - 10/03/2018 8:21 AM PDT Neurosurgery [...] Dispo: To [place] today. RAHEEM DOSS PA-C [facility] [address] [place] [address] Rajinder Antony MD - 10/02/2018 7:51 PM [...] surgery? No Chris Cano MD Neurosurgery PGY2 93530 oJulio lobo PA-C - 10/02/2018 8:22 AM PDT [...] noted deficits below Delt Tri Bi WE High Pressure Firer HF KE APF ADF Left 5 5 [...] SPINE THOR / LUMB WWO CONTRAST Order: [id number] Performed: 10/01/2018 17:52 Status: Final result Visible [...] clinical course, pending surgery Julio Wahl PA-C [facility] [address] [place] [address] documented in this enc ounter Plan of [...] Attending | | Surgeon: Rajinder Luis MD Bakery Supervisor(s): Joby Thibodeaux MD. | | Preoperative Diagnosis: [...] the operating room on a | | [facility]. General endotracheal anesthesia was induced by the Anesthesia team | | without complication. The neuromonitoring team placed the necessary electrodes for | | monitoring of somatosensory evoked potentials and motor evoked potentials. The patient | | was then placed in a prone position on a Hair OSI Ferrum table. All pressure points | | were [...] | extremity motor to follow throughout the case.Joby Thibodeaux MDI, Rajinder Luis MD | | was scrubbed [...] 10/03/2018 | | 19:49:32DT: 10/03/2018 20:24:12Job #: [id number] | + + X-RAY SPINE THORACIC 1 [...] | + + + + + | [facility] Andrew BRAMBILA | [address] | [place], [place] | | | [facility] | [address] | [address] | | | TESTS | | | [...] prior | | | | | | [id number], low grade | | | | | [...] resection | | | | | | ([id number]), with | | | | | | [...] | | | | | | y, [facility] & | | | | | | [facility] | | | | | | electronic [...] number | | | | | | [id number]. Spine, | | | | | | [...] | + + + + + | [facility] | [address] | [place] [address] | | | PATHOLOGY | [address] | | | + + + + + INTRAOPERATIVE NEURO MONITORING (10/03/2018) + + + | Narrative | Performed At | + + + | Patient Name: Qiana Worrell Date of : 1990 | | | Date of Test: 10/03/2018 Place of | | | Service: IP Intra Op [phone] [id number] INTRAOPERATIVE NEURO | | | MONITORING IOM: [...] | | | Norma Jordan MD, MA, [facility] | | | Suggested CPT: G0453 - IOM Continuous divided attention to single | | | patient x 10 @ 15 [place](s[place] [address] - Short Latency EP's | | | Upper AND Lower extremities 17931 - Central Motor EP's Upper AND | [...] | + + + + + | [facility] | [address] | [place] [address] | | | SERVICES, | [address] [...] LABORATORY | [address] | [place] [address] | | | SERVICES, | [address] [...] | + + + + + | [facility] | [address] | [place] [address] | | | SERVICES, | [address] [...] not included in the IG count. | NINO LEONARD | | Bands are included in the neutrophil count. | | + + + + + + + + | Performing | Address | City/State/Zipcode | Phone Number | | Organization | | | | + + + + + | [facility] | [address] | [place] [address] | | | SERVICES, CORE | [address] [...] | + + + + + | [facility] | [address] | [place] [address] | | | SERVICESNINO | [address] | | | [...] | | | LABORATORY | | | KYRGYZ | | | SERVICES, | | | [...] | + + + + + | [facility] | [address] | [place] [address] | | | SERVICES, NINO | JEAN [...] LABORATORY | [address] | [place] [address] | | | SERVICES, CORE | [address] | | | + + + + + ED INFORMATION EXCHANGE (10/01/2018 12:03 PM PDT) + + | Specimen | + + | | + + + + + | Narrative | Performed At | + + + | [id number] [id number] Criteria Met Has | [facility] | | Guidelines PDMP Security and Safety No recent Security Events | MEDICAL | | currently on file ED Care Guidelines from [facility] and | [employer]OLOG[employer] | | [facility] Last Updated: 02/08/17 11:58 AM [place] | | | Emergency DepartmentSuggested Care RecommendationsAuthor: Cecily Najera, | | | NOELLEuthstephanie Ukxchk Update: | | | 02/08/2017Medical:- Thoracic intramedullary [...] provider/clinic: Dr. Princess Chowdary, | | | [facility], - Neurosurgery: OS, | | | Rajinder Luis MD and PHILIPPE Mckeon - [phone]-Insurance care | | | coordinator: Estelita, -Housing: living in [facility] with | | | mother Judit and [...] E.D. Visit Count (12 mo.) Facility Visits [facility] and | | | [facility] 1 [facility] 1 Total 2 Note: | | | Visits indicate total known visits. Recent Emergency Department | | | Visit Summary Date Facility City State Type Diagnoses or Chief | | | Complaint Oct 01, 2018 [facility] [place] | | | [place] Emergency 10,800. MRI Jul 06, 2018 [facility]. | | | 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 [place] Inpatient Rehab Spinal | [...] | | | unspecified Jul 06, 2018 [facility] | | | [place] Neuro Surgery 10,151. 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, soft tissue, and | | | skin Care Providers Provider PRC Type Phone Fax Service | | | Dates MARBIN CHAPIN, DRAMA THERAPIST- Nurse Practitioner: Family Current | | | MADHAVI MONTANEZ LCSW Histopathologist: Clinical ([phone] | | | [phone] Current CORNELIO VILLASENOR ND Fleet Administrator ([phone] | | | [phone] Current [employer] Portal This patient | | | has registered at the [facility] | | | Emergency Department For more information visit: | | | [id number] | | | [email or web address] [facility] PLEASE NOTE: 1. Any care recommendations and [...] | or completeness of information provided. 2019 [employer] | | | echoBase. - www.Dress Code | | + + + + + | Procedure Note | + + | Service Account, Rtf Results Inbound - 10/01/2018 12:04 PM PDT Formatting of this | | note might be different from the original.COLLECTIVE?NOTIFICATION?10/01/2018 | | 12:01?QIANA WORRELL? [facility] Has Guidelines PDMPSecurity and | | SafetyNo recent Security Events currently on fileED Care Guidelines from [facility] | | [facility]: 02/08/17 11:58 AM [facility] Emergency DepartmentSuggested | | Care RecommendationsAuthor: Cecily NajeraNOELLEuthstephanie Wliuon | | Update: 02/08/2017Medical:- Thoracic intramedullary spinal [...] care provider/clinic: Dr. Sparks | | Karma Chowdary, [facility], - Neurosurgery: Rajinder QURESHI | | MD Toby and PHILIPPE Mckeon - [phone]-Insurance rental boats caretaker: Esteilta, | | [phone]-Housing: living in [facility] with mother Judit and 2 y/o daughter [...] 0 E.D. Visit Count (12 mo.)Facility Visits [facility] | | [facility] 1 [facility] 1 Total 2 Note: Visits indicate total | | known visits. Recent Emergency Department Visit SummaryDate Facility City State Type | | Diagnoses or Chief Complaint Oct 01, 2018 [facility] [place] | | Emergency 10,800. MRI Jul 06, 2018 [facility] 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 Inpatient Rehab | | Spinal [...] dysfunction of bladder, unspecified Jul 06, 2018 [facility] | | [place] Neuro Surgery 10,151. Thoracic Spine Tumor 18,400. Neoplasm of | | unspecified behavior of bone, soft tissue, and skin Care ProvidersProvider [facility] Type | | Phone Fax Service Dates MARBIN CHAPIN FNP-BC Nurse Practitioner: Family Current | | MADHAVI MONTANEZ LCSW Histopathologist: Clinical [facility], | | CORNELIO Bates ND Fleet Administrator Current Over[employer] PortalThis | | patient has registered at the [facility] Emergency Department | | For more information visit: | | [id number] andsp | | PLEASE NOTE: 1. Any care [...] completeness of information | | provided.? 2019 [employer]. - wwwReal Time Content | |Oct 01, 2018 [facility] [place] Emergency | | 10,800. MRI | | | |Jul 06, [address] [facility] [place] Emergency | | 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in | | Anesthesia of skin | | Allergy status to sulfonamides status | | Other intermediate manager (current) drug therapy | | Brown-Sequard syndrome | | | | | | | |Recent Inpatient Visit Summary | |Date Facility City State Type Diagnoses or Chief Complaint | |Jul 12, 2018 [facility] [place] Inpatient Rehab | | Spinal Tumor [...] unspecified | | | |Jul 06, 2018 [facility] [place] Neuro Surgery | | 10,151. Thoracic Spine Tumor | | 18,400. 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in | | | | | | | |Care Providers | |Provider PRC Type Phone Fax Service Dates | |MARBIN CHAPIN, DRAMA THERAPIST- Nurse Practitioner: Family Current | |MADHAVI MONTANEZ LCSW Histopathologist: Clinical Current | |CORNELIO VILLASENOR , CESARIO Fleet Administrator Current | | | |[employer] Portal | |This patient has registered at the [facility] Emergency Departmen t | |For more information visit: [email or web address] | |andnbsp PLEASE NOTE: | | 1. [...] information provided. | | | |? 2019 [employer]. - [email or web address] | + + + + + + + | Performing | Address | City/State/Zipcode | Phone Number | | Organization | | | | + + + + + | [facility] | [address], | [place], [place] | [phone] | | TECHNOLOGIES | [address] | [address] | | + + + + + documented in this encounter Visit Diagnoses + + | Diagnosis | + + | Weakness of right lower extremity | + + | Hyperreflexia Abnormal reflex [...] | +---+---+ + +-------+ +---------+---+ + | bacitracin (BACIIM) injection | Given | 10/04/19 | 50,000 | | Surgical | | INTRAPROCEDURE PRN, Starting Miriam | | 19 3:27 | Units | | Site | | 10/03/18 at 1527, Until Miriam | | PM PDT | [...] +-------+---+ + | bupivacaine-EPINEPHrine | Given | 10/04/19 | 10 mL | | Surgical | | (MARCAINE-EPINEPHRINE) 0.25 | | 19 3:16 | | | Site | | %-1:200,000 injection | | PM PDT | | | | | INTRAPROCEDURE PRN, Starting Miriam | | | | | | | 10/03/18 at 1516, Until Miriam | | | | | [...] | | | doses, First dose on Sun10/07/18 | | AM PDT | | | [...] | + +---+ + +-------+ +-------+---+---+ | diphenhydrAMINE (BENADRYL) | Given | 10/09/19 | 25 mg | | | | capsule 25 mg 25 mg, oral, EVERY | | 19 10:32 | | | | | 6 HOURS NEEDED, Starting Sun | | AM PDT | | | | | 10/04/18 at 1409, Until Sun10/08/18 | | | | | | | [...] | 2-6 mg 2-6 mg, oral, EVERY | | 19 11:31 | | | | | HOURS NEEDED, Starting Fri | | AM PDT | | | | | 10/04/18 at 0015, Until Tu10/08/18 | | | | | | | [...] PM PDT | | | | | 4/1/19 at 1630, Until | | | | [...] | | | BREAKFAST, First dose on Miriam | | AM PDT | | [...] thrombin 5000 unit topical | Given | 10/04/19 | 5,000 | | Surgical | | solution INTRAPROCEDURE PRN, | | 19 4:48 | Units | | Site | | Starting Miriam 10/03/18 at 1648, | | PM PDT | | | | | Until Miriam 10/03/18 at 1904 | | | | | | + +-------+ +--------+---+ + +---+---+ | | | +---+---+ + +-------+ +------+---+---+ | tiZANidine (ZANAFLEX) tablet 4 | Given | 10/09/19 | 4 mg | | | | mg 4 mg, oral, THREE TIMES DAILY | | 19 1:17 | | | | | NEEDED, Starting Miriam 10/03/18 | | AM PDT | | | | | at 2219, Until 10/08/18 at | | | | | | [...]
--- OUTSIDE RECORDS SUMMARY | ~2019-06-26 | XMS | Encounter Summary ---
Demographics + + + | Address | [address] | | | [place] [address] | + + + | Home Phone [...] Team Providers + +------+ + | Care Cornice Maker Name | Role | Phone | + [...] | | | | tumor | [address] | | | | | | Procedures | [address] | | | | | | MRI SPINE | [place], | | | | | | THORACIC WWO | [place] | | | | | | CONTRAST | [address] | | | | | | | Phone: | | | | | | | [phone] | | | | | | | Fax: | | | | | | | [phone] | | +--------+--------+ + + + + [...] | | | | Rd [facility] | [place], [place] | | | | | | Hospital | [address] | | | | | | [place], [place] | Phone: | | | | | | [address] | [phone] | | | | | | Phone: | Fax: | | | | | | [phone] | [phone] | +--------+--------+ + + + + Encounter Details +--------+---------+ + + + | Date | Type | Department | Care Team | Description | +--------+---------+ + + + | 10/19/ | Office | Neurosurgery at | Raegan Doss, | Spinal cord tumor | | 2016 | Visit | [facility] [address] | PAAndrewC [address] | (Primary Dx) | | | | Ave Mailcode: [id number] | [place], [place] | | | | | [place] [facility] | [address] | | | | | and Healing, | [phone] | | | | | | | | | | | Floor [place], [place] | | | | | | [address] | | | | | | [phone] | | | +--------+---------+ + + + [...] cord tumor on 09/09/15. She discharged to [facility] for 2-3 weeks a nd [...] with her boyfriend and is moving to [facility] next month. She denies having any wound [...] thoracic MRI wwo prior -Follow up with [facility] outpatient therapy as scheduled NEUROSURGERY AT [facility] [address] Mailcode: [address] [place] [address] documented in this encounter Plan [...]
--- OUTSIDE RECORDS SUMMARY | ~2019-06-26 | XMS | Encounter Summary ---
Demographics + + + | Address | [address] | | | [place] [address] | + + + | Home Phone [...] Team Providers + +------+ + | Care Fuel Cell Designer Name | Role | Phone | [...] | 2019 | | [address] | [address] | LAMINECTOMY AND | | | | Franko [facility] Main | [place], [place] | resection of | | | | Hospital Admitting | [phone] | intradural spinal | | | | Desk Located on the | [phone] | tumor | | | | 9th floor | | | | | | [place], [place] | | | | | | [address] | | | +--------+---------+ + + + [...] Rajinder Luis MD PCP: PATRIC Flores Service: [facility] Neurosurgery Diagnoses Principal Final Diagnosis: Progressive thoracic [...] on the 1 2th floor at the [facility] on the [facility] located at [address] [place] [address]. Please call [phone] if you have any questions or concerns [...] (10/05/18 1244) Discharge Patient To: Interhospital Transfer [facility] Does patient have a planned readmission: No Discharge Summary Completed?: Yes. 10/08/2018 Discharging Provider: RAHEEM DOSS PA-C Date Completed: 10/08/2018 Time Completed: 10:36 AM Discharging Attending: Rajindre Luis MD [facility] [address] [place] [address] documented in this encounter Medications at Time [...] accepted, hopeful for today. RAHEEM DOSS PA-C [facility] [address] [place] [address] dams, PHILIPPE Mena - 10/07/2018 8:33 AM [...] in bed, on ppx lovenox. Dispo: To [facility]KE once accepted. RAHEEM DOSS PA-C [facility] [address] [place] [address] Daniel Arechiga MD - 10/06/2018 11:06 AM [...] WORRELL Routine Cultures PROCEDURE: Strep Screen Culture [[id number]: 11/05/2017 16:4 4 PDT P1] SOURCE: Throat STARTED: 11/05/2017 20:3 9 PDT FREE TEXT SOURCE: BODY SITE: FINAL REPORTS Final Report [] Verified Date/Time: 11/07/2017 11:07 PDT No beta Strep isolated. Order Comments O1: Strep Screen Culture (CULTURE THROAT STREP SCREEN - [facility] - Ordering-Phys: PRINCESS GRAVES) Location: [facility] Performing Locations P1: This test was performed at: [facility] Lab Lab Results Component Value Date [...] Please contact the neurosurgery [place] on-call pager [phone] with questions. Daniel Barahona M.D. Neurosurgery PGY-1 [...] control, planning for IPR Elif Mcclain PA-C [facility] [address] [place] [address] FoJulio lobo PA-C - 10/04/2018 8:39 AM [...] noted deficits below Delt Tri Bi [employer] HF KE APF ADF Left 5 5 [...] SPINE THOR / LUMB WWO CONTRAST Order: [id number] Performed: 10/01/2018 17:52 Status: Final result Visible [...] Secondary to clinical course Julio Wahl PA-C [facility] [address] [place] [address] Derick Dave MD,P hD - 10/03/2018 10:00 [...] DERICK REYES MD,PhD Resident Neurological Surgery Pgr. [id number] Raheem Palmer PA-C - 10/03/2018 8:21 AM [...] Dispo: To [place] today. RAHEEM DOSS PA-C [facility] [address] [place] [address] Rajinder Antony MD - 10/02/2018 7:51 PM [...] surgery? No Chris Cano MD Neurosurgery PGY2 [id number] oJulio lobo PA-C - 10/02/2018 8:22 AM [...] noted deficits below Delt Tri Bi [employer] HF KE APF ADF Left 5 5 [...] SPINE THOR / LUMB WWO CONTRAST Order: [id number] Performed: 10/01/2018 17:52 Status: Final result Visible [...] clinical course, pending surgery Julio Wahl PA-C [facility] [address] [place] [address] documented in this enc ounter Plan of [...] Attending | | Surgeon: Rajinder Luis MD Rock Mason(s): Joby Thibodeaux MD. | | Preoperative Diagnosis: [...] the operating room on a | | [facility]. General endotracheal anesthesia was induced by the Anesthesia team | | without complication. The neuromonitoring team placed the necessary electrodes for | | monitoring of somatosensory evoked potentials and motor evoked potentials. The patient | | was then placed in a prone position on a Hair OSI Romeo table. All pressure points | | were [...] 10/03/2018 | | 19:49:32DT: 10/03/2018 20:24:12Job #: [id number] | + + X-RAY SPINE THORACIC 1 [...] | + + + + + | [facility] Andrew BRAMBILA | [address] | [place], [place] | | | JAVIER [facility] | [address] | [address] | | | TESTS | | | [...] prior | | | | | | [id number], low grade | | | | | [...] resection | | | | | | ([id number]), with | | | | | | [...] | | | | | | y, [facility] | [facility] | | | [...] number | | | | | | [id number].A. Spine, | | | | | | [...] | + + + + + | [facility] | [address] | [place] [address] | | | PATHOLOGY | [address] | | | + + + + + INTRAOPERATIVE NEURO MONITORING (10/03/2018) + + + | Narrative | Performed At | + + + | Patient Name: Qiana Worrell Date of : 1990 | | | Date of Test: 10/03/2018 Place of | | | Service: IP Intra Op [id number] INTRAOPERATIVE NEURO | | | MONITORING IOM: [...] | | | Norma Jordan MD, MA, [facility] Laundry Tub Maker of Neurology | | | Suggested CPT: G0453 - IOM Continuous divided attention to single | | | patient x 10 @ 15 min(s), [place] [address] - Short Latency EP's | | | Upper AND Lower extremities 42573 - Central Motor EP's Upper AND | [...] | + + + + + | [facility] | [address] | [place] [address] | | | SERVICES, | [address] [...] LABORATORY | [address] | [place] [address] | | | SERVICES, | [address] [...] | + + + + + | [facility] | [address] | [place] [address] | | | SERVICES, | [address] [...] | + + + + + | [facility]ORY | [address] | [place] [address] | | | SERVICES, CORE | [address] [...] | + + + + + | [facility]ORY | [address] | [place] [address] | | | SERVICESNINO | [address] [...] | | | LABORATORY | | | [place] | | | SERVICES, | | | [...] | + + + + + | [facility] | [address] | [place] [address] | | | SERVICES, NINO | JEAN [...] LABORATORY | [address] | [place] [address] | | | SERVICES, CORE | [address] | | | + + + + + ED INFORMATION EXCHANGE (10/01/2018 12:03 PM PDT) + + | Specimen | + + | | + + + + + | Narrative | Performed At | + + + | [id number] [id number] Criteria Met Has | [facility] | | Guidelines PDMP Security and Safety No recent Security Events | MEDICAL | | currently on file ED Care Guidelines from [facility] and | [employer]OLOG[employer] | | [facility] Last Updated: 02/08/17 11:58 AM [place] | | | Emergency DepartmentSuggested Care RecommendationsAuthor: Cecily Najera, | | | NOELLEuthstephanie Vrtqli Update: | | | 02/08/2017Medical:- Thoracic intramedullary [...] provider/clinic: Dr. Princess Chowdary, | | | [facility], - Neurosurgery: OS, | | | Rajinder Luis MD and PHILIPPE Mckeon - [phone]-Insurance care | | | coordinator: Estelita, -Housing: living in [facility] with | | | mother Judit and [...] E.D. Visit Count (12 mo.) Facility Visits [facility] | | | [facility] 1 [facility] 1 Total 2 Note: | | | Visits indicate total known visits. Recent Emergency Department | | | Visit Summary Date Facility City State Type Diagnoses or Chief | | | Complaint Oct 01, 2018 [facility] [place] | | | [place] Emergency 10,800. MRI Jul 06, 2018 [facility]. | | | 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 Inpatient Rehab Spinal | | [...] | | | unspecified Jul 06, 2018 [facility] | | | [place] Neuro Surgery 10,151. 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, soft tissue, and | | | skin Care Providers Provider PRC Type Phone Fax Service | | | Dates MARBIN CHAPIN, BRANCH ASSOCIATE- Nurse Practitioner: Family Current | | | MADHAVI MONTANEZ LCSW Associate Java Developer: Clinical [phone] | | | [phone] Current CORNELIO VILLASENOR [place] Apparel Sales Leader [phone] | | | [phone] Current [employer] Portal This patient | | | has registered at the [facility] | | | Emergency Department For more information visit: | | | [id number] | | | [email or web address] [facility] PLEASE NOTE: 1. Any care recommendations [...] | or completeness of information provided. 2019 [employer]pick | | | [employer]. - [email or web address] | | + + + + + | Procedure Note | + + | Service Account, Rtf Results Inbound - 10/01/2018 12:04 PM PDT Formatting of this | | note might be different from the original.COLLECTIVE?NOTIFICATION?10/01/2018 | | 12:01?QIANA WORRELL? [facility] Has Guidelines PDMPSecurity and | | SafetyNo recent Security Events currently on fileED Care Guidelines from [facility] | | [facility]: 02/08/17 11:58 AM [facility] Emergency DepartmentSuggested | | Care RecommendationsAuthor: Cecily NajeraNOELLEuthstephanie Ucuydt | | Update: 02/08/2017Medical:- Thoracic intramedullary spinal [...] provider/clinic: Dr. Sparks | | Karma Chowdary, [facility], - Neurosurgery: Rajinder QURESHI | | MD Toby and PHILIPPE Mckeon - [phone]-Insurance team primary care physician: Estelita, | | [phone]-Housing: living in [facility] with mother Judit and 2 y/o daughter [...] 0 E.D. Visit Count (12 mo.)Facility Visits [facility] | | [facility] 1 [facility] 1 Total 2 Note: Visits indicate total | | known visits. Recent Emergency Department Visit SummaryDate Facility City State Type | | Diagnoses or Chief Complaint Oct 01, 2018 [facility] [place] | | Emergency 10,800. MRI Jul 06, 2018 [facility] 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 | | [place] Neuro Surgery 10,151. Thoracic Spine Tumor 18,400. Neoplasm of | | unspecified behavior of bone, soft tissue, and skin Care ProvidersProvider [facility] Type | | Phone Fax Service Dates MARBIN CHAPIN FNP-BC Nurse Practitioner: Family Current | | MADHAVI MONTANEZ LCSW Associate Java Developer: Clinical Current [facility], | | CORNELIO Bates ND Apparel Sales Leader Current Zuki PortalThis | | patient has registered at the [facility] Emergency Department | | For more information visit: | | [email or web address] andsp | | PLEASE NOTE: 1. Any [...] completeness of information | | provided.? 2019 [employer]. - [email or web address] | |Oct 01, 2018 [facility] [place] Emergency | | 10,800. MRI | | | |Jul 06, [address] [facility] [place] Emergency | | 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in | | Anesthesia of skin | | Allergy status to sulfonamides status | | Other terminal make up operator (current) drug therapy | | Brown-Sequard syndrome [...] unspecified | | | |Jul 06, 2018 [facility] [place] Neuro Surgery | | 10,151. Thoracic Spine Tumor | | 18,400. 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in | | | | | | | |Care Providers | |Provider PRC Type Phone Fax Service Dates | |MARBIN CHAPIN, BRANCH ASSOCIATE- Nurse Practitioner: Family Current | |MADHAVI MONTANEZ LCSW Associate Java Developer: Clinical Current | |CORNELIO VILLASENOR , CESARIO Apparel Sales Leader Current | | | |Zuki Portal | |This patient has registered at the [facility] Emergency Departmen t | |For more information visit: [email or web address] | |andnbsp PLEASE NOTE: | | 1. [...] information provided. | | | |? 2019 [employer]. - [email or web address] | + + + + + + + | Performing | Address | City/State/Zipcode | Phone Number | | Organization | | | | + + + + + | [facility] | [address], | [place], [place] | [phone] | | TECHNOLOGIES | [address] | [address] | | + + + + + [...] Units | | Site | | Starting Mriiam 10/03/18 at 1648, | | PM PDT [...]
--- OUTSIDE RECORDS SUMMARY | ~2019-06-26 | XMS | Encounter Summary ---
Demographics + + + | Address | [address] | | | [place] [address] | + + + | Home Phone | | + + + | Preferred Language | Unknown | + + + | Marital Status | Single | + + + | Rastafarian Affiliation | NON | + + + [...] Team Providers + +------+ + | Care Training Assistant Name | Role | Phone | [...] spine tumor | PA-C [address] | | | | | Procedures | [address] | Rd | | | | | MRI SPINE | [facility], | Mailcode: | | | | | THORACIC WWO | [place] | [address] | | | | | CONTRAST | [address] | [place] | | | | | [place] MRI, | Phone: | Research | | | | | DORSAL SPINE | [phone] | Center | | | | | COMBO | Fax: | [place], [place] | | | | | | [phone] | [address] | | | | | | | Phone: | | | | | | | [phone] | | | | | | | Fax: | | | | | | | [phone] | +--------+--------+ + + + + Reason [...] spine tumor | PA-C [address] | | | | | Procedures | [address] | Rd | | | | | MRI SPINE | [facility], | Mailcode: | | | | | THORACIC WWO | [place] | [address] | | | | | CONTRAST | [address] | [place] | | | | | [place] MRI, | Phone: | Research | | | | | DORSAL SPINE | [phone] | Center | | | | | COMBO | Fax: | [place], [place] | | | | | | [phone] | [address] | | | | | | | Phone: | | | | | | | [phone] | | | | | | | Fax: | | | | | | | [phone] | +--------+--------+ + + + + Encounter Details +--------+ + + + + | Date | Type | Department | Care Team | Description | +--------+ + + + + | 11/26/ | Hospital | Radiology/Imaging | Raegan Doss, | | | 2018 | Encounter | Lab at [facility] [address] | PA-C [address] | | | | [address] Mailcode: | Ave [facility], [place] | | | | | [address] | [address] | | | | | Health and Healing, | [phone] | | | | | [facility] , 3rd | | | | | | Floor [place], [place] | | | | | | [address] | | | | | | [phone] | | | +--------+ + + + [...] | MRI SPINE THORACIC | Routin | 11/26/2017 | Thoracic spine | Results for this | | WWO CONT | e | 1:53 PM | tumor | procedure are in [...] agree with e report as now presented. | | [...] gadoterate meglumine (DOTAREM) | IV Push | 11/27/19 | 15 mL | | | | 0.5 mmol/mL injection 15 mL 15 | | 18 1:25 | | | | | mL, intravenous, ONCE, 1 dose, | | PM PDT | | | | | 11/26/17 at 1400 | | | | | | + +---------+ +-------+------+------+ +---+---+ | | | +---+---+ documented in this encounter"
--- OUTSIDE RECORDS SUMMARY | ~2019-06-26 | XMS | Encounter Summary ---
Demographics + + + | Address | [address] | | | [place] [address] | + + + | Home Phone [...] Team Providers + +------+ + | Care Staking Engineer Name | Role | Phone | [...] Description | +--------+---------+ + + + | 07/08/ | Surgery | 6A Intra Op 3181 | Rajinder Luis MD | THORACIC | | 2018 | | 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 The patient noted new onset of right lower extrem ity weakness on 07/06/2018 and then presented to the hospital for evaluation. Ms. Worrell was transferred to [facility] on 07/06/2018. A MRI showed cord dissection [...] from the beginning. Dura was closed with [place]-Thaddeus, tacked up with 4-0 Nurol on sutures. [...] patient was felt appropriate for discharge to [facility] (Inpatient Rehab) on 07/12/2018, and the patient and/or family members agree with this course of action. The janeth rayamirela has a follow up appointment in the [facility] Neurosurgery Spine clinic on 07/31/2018. Medication List [...] on the 1 2th floor at the [facility] on the [facility] located at [address] [place] [address]. Please call [phone] if you have any questions or concerns bef ore your appointment time. Code Status for Facility Status: Full Code Discharge Follow Up - Facility MD to follow Facility MD to follow patient. Future Appointments Provider Department Dept Phone Center 07/31/2018 1:00 PM Raheem Doss [facility] at [facility] [phone] SPC Contact information for after-discharge care Discharge Destination Tim Rothman [facility] [place] . Specialty: Inpatient Rehabilitation Facility Contact information [address] [address] Warning Symptoms and Signs Please call the Neurosurgery clinic at [phone] with any questions Sunday to Sunday 8 A M - 4 PM. After hours, call [facility] at [phone] and ask to speak with the Neurosurgery resi dent regional manager if you have any of the following: - Difficulty breathing or shortness of breath; - Excessive bleeding or drainage from incision sites; - Fevers, chills, sweats; - Persistent nausea or vomiting; - Change in mental status. [facility] Neurosurgery Service Pain Policy [facility] Neurosurgery Service Pain Policy: Our clinic can prescribe pain medication for up to 6 weeks post-op. All refills must be requested through a the [facility] Neurosurgery Clinic. Patients must give the Outpatient [...] - 1.10 mg/dL 0.45 (L) EGFR - [place] Latest Ref Range: >60 mL/min >60 EGFR NON -[place] Latest Ref Range: >60 mL/min >60 GLUCOSE, [...] plan with case management. CALEB HENRY PA-C [facility] [address] [address]/[facility] [place] [address] MEDICATIONS Current Facility-Administered Medications Medication acetaminophen (TYLENOL) [...] 2 tablet traZODone (DESYREL) dose 75 mg dams, Raheem Nieves PA-C - 07/11/2018 8:39 AM [...] on ppx Lovenox. Dispo: Pending acceptance at [facility]. RAHEEM DOSS PA-C [facility] [address]K [address] [place] [place] [address] dams, PHILIPPE Mena - 07/10/2018 8:17 AM PST Neurosurgery Progress Note Hospital Day:4 Author; RAHEEM DOSS PA-C Attending Physician: Rajinder Luis MD Interval Hx: -Patient reports improvement in pain control this AM, currently at a 5/10. She is happy wit h the changes the APS team made. -She would like to hold on removing her daniels catheter until she can get to [facility] ([facility]) as th ey manage neurogenic bladder and training well over there. She states she is aware of the ri sks of keeping it in [facility]. -She was able to sit upright yesterday [...] hours (or 3 results) Recent Labs 07/08/18 13407/09/18 03307/10/18 0601 WBC 9.75 17.51* 15.20* HB 12.5 13.5 12.9 HCT 37.3 41.3 39.3 PLT 289 336 325 Recent Labs 07/08/18134507/09/1832907/09/18194707/09/18 2242 07/10/18 0601 NA 139 137 -- [...] for resection of intramedull dominick tumor on 12/31/18. Wound healing well. 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 RAHEEM DOSS PA-C [facility] [address] [place], [place] [id number] Mook Álvarez ra, MD - 07/09/2018 9:09 [...] WORRELL Routine Cultures PROCEDURE: Strep Screen Culture [[id number]: 11/05/2017 16:4 4 PDT P1] SOURCE: Throat STARTED: 11/05/2017 20:3 9 PDT FREE TEXT SOURCE: BODY SITE: FINAL REPORTS Final Report [] Verified Date/Time: 11/07/2017 11:07 PDT No beta Strep isolated. Order Comments O1: Strep Screen Culture (CULTURE THROAT STREP SCREEN - [facility] - Ordering-Phys: PRINCESS GRAVES) Location: [facility] Performing Locations P1: This test was performed at: [facility] Lab Results Component Value Date APTT [...] knee, otherwise 2/4 incision clean/dry/intact ASSESSMENT/PLAN: Qiana Wildeyendanie is a 27 y.o. female HD#3 with [...] Please contact the Neurosurgery resident on-call pager [phone] with questions or concerns. Olinda Araya MD Resident Physician Department of Neurosurgery Lucinda Valencia PA-C - 07/09/2018 5:50 AM PSTFormatting of this note might be diffe rent from the original. . Neuroscience Intensive Care Unit Team Progress Note NSICU ASSIGNED #[id number] ICU Admission Reason Most Recent Value ICU [...] Provider Role Specialty Ipt Critical Care Nsicu #[id number] Treatment Team Ipt Neurosurgery #[id number] Treatment Team Neurological Surgery Patient Lines/Drains/Airways Status [...] Date of Service: 07/09/2018 LUCINDA CASTAÑEDA PA-C [facility] DEPARTMENT: ANE ICU NEURO Place of Service:- Inpatient CSN: [id number] Suggested Modifier: None Suggested CPT: TO DIRECTOR COMPLIANCE Author:LUCINDA CASTAÑEDA PA-C [address] [id number] signed by Lucinda Castañeda PA-C at 07/09/2018 9:12 AM PST Kamaljit Rios MD,MPH - 07/08/2018 3:00 PM [...] Please contact the Neurosurgery resident on-call pager [phone] with questions or concerns. Kamaljit Rios M.D., M.P.H. R2 Resident Physician Neurological Surgery Pager: [phone] signed by Kamaljit Rios MD,MPH at 07/08/2018 3:04 PM PSTAdams, Raheem Nieves PA-C - 07/08/2018 7:21 AM PST Neurosurgery Progress Note Hospital Day:2 Author; RAHEEM DOSS PA-C Attending Physician: Rajinder Luis MD Interval Hx: -Patient without specific complaint [...] Imaging: MRI SPINE THORACIC WO CONTRAST Order: [id number] Performed: 07/07/2018 15:00 Status: Final result Visible [...] MG/ML) INT RAVENOUS SOLUTION 13 mL (accession [id number]), GADOTERATE MEGLUMINE 0.5 MMOL/ML (376.9 MG/ML) INTRAVENOUS SOLUTION 13 mL (accession [id number]) FINDINGS: Thoracic spine: There is abnormal T2 [...] T8 and T9 appear slightly larger t parnell in comparison with the prior study as [...] 15:48 CT SPINE THORACIC WO CONTRAST Order: [id number] Performed: 07/07/2018 15:12 Status: Final result Visible [...] Preliminary: Jeferson Castro MD Dictation initiated: Jeferson aCstro MD 07/07/2018 3:38 PM Specimen Collected: 07/07/18 [...] duloxetine, gabapentin, baclofen, trazodone RAHEEM DOSS PA-C [facility] [address]K [address] [place] [address] Dave Mcclain MD - 07/07/2018 12:34 PM [...] today Dave Ayala MD Neurosurgery, PGY-1 Pager [phone] Dvae Mcclain MD - 07/07/2018 7:38 AM PST [...] D/B/T/HG RLE: 3/5 HF 4/5 KE/DF/PF LLE: 5 HF/KE/DF/PF BLE decreased sensation, stable since 1st [...] tumor progression. MRI completed. -Booked for OR 12 for redo thoracic laminectomies for tumor resection -will need BFFE MRI T5-T12 before OR -will consent and pre-op today -npo at midnight Please page [phone] with any questions or concerns. Dave Ayala MD Neurosurgery, PGY-1 Pager [phone] documented in this encounter Plan of Treatment [...] | | | LABORATORY | | | [place] | | | SERVICES, | | | [...] | + + + + + | [facility] LABORATORY | [address] | [place] [address] | | | NINO LEONARD | JEAN [...] [facility] | [address] | [place], [place] | | | [place] [facility]INT OF CARE | [address] | [address] | | | TESTS | | | [...] LABORATORY | [address] | [place] [address] | | | SERVICES, CORE | PARK [...] | + + + + + | [facility] | [address] | [place] [address] | | | SERVICES, CORE | PARK [...] | | | LABORATORY | | | [place] | | | SERVICES, | | | [...] the MDRD equation recommended by the | [facility] | | National Kidney Disease Education Program. [...] | + + + + + | [facility] | [address] | [place] [address] | | | HORACIO, NINO | JEAN [...] (H) | 60 - 99 mg/dL | [facility] - | | | GLUCOSE, | | [...] [facility] | [address] | [place], [place] | | | ZELALEM HERRERA OF NURIA | [facility] | [address] | | | TESTS | | | [...] [facility] | [address] | [place], [place] | | | [place] POINT OF CARE | [address] | [address] | | | TESTS | | | [...] [place] | [address] | [place], [place] | | | ZELALEM HERRERA OF CARE | [facility] | [address] | | | TESTS | | | [...] [facility] | [address] | [place] [address] | | | SERVICES, CORE | JEAN [...] LABORATORY | [address] | [place] [address] | | | SERVICES, CORE | JEAN [...] | | | LABORATORY | | | [place] | | | SERVICES, | | | [...] | + + + + + | [facility] | [address] | [place] [address] | | | HORACIO, NINO | PARK [...] July 07, | RADIOLOGY VOICE | | 2017. TECHNIQUE: Multiplanar multi-sequence MRI thoracic spine | [...] Attending | | Surgeon: Rajinder Luis MD Priming Mixture Carrier(s): Yokasta Webb MD. | | Preoperative Diagnoses: [...] | | beginning. Dura was closed with [place]-Thaddeus, tacked up with 4-0 Nurolon sutures. The | | muscle closed in layers. Skin was closed with 2-0 interrupted vertical mattress | | sutures.Indications For Procedure: Please see Epic for full details, but briefly, | | [...] the operating room | | on a [facility]. She was intubated without difficulty by the [...] then closed it with a running 6-0 [place]-Thaddeus suture. We tacked out the | | [...] the critical portions of the operation.Rajinder Luis MDJRebeccaG/MODLDD: 07/08/2018 | | 19:06:44DT: 07/08/2018 19:40:29Job #: [id number] | |Indication: Intraoperative evaluation of adequacy of [...] |JLG/MODL | | | | | | /[id number] | + + PROCEDURE NOTE (07/08/2018 4:53 [...] | + + + + + | [facility] | [address] | [place] [address] | | | SERVICES, CORE | [address] | | | + + + + + MAGNESIUM, PLASMA (07/08/2018 1:46 PM PST) + +-------+ + + + | Component | Value | Ref Range | Performed | Pathologist | | | | | At | Signature | + +-------+ + + + | MAGNESIUM,P | 1.8 | 1.6 - 2.6 mg/dL | [facility] | | | LASMA | | | [...] | + + + + + | [facility] LABORATORY | [address] | [place] [address] | | | SERVICES, CORE | JEAN [...] | | | LABORATORY | | | [place] | | | SERVICES, | | | [...] | + + + + + | [facility] | [address] | [place] [address] | | | SERVICES, CORE | JEAN [...] + + | [facility] | [address] | [place], [place] | | | ZELALEM HERRERA OF CARE | [address] | [address] | | | TESTS | | | [...] | | | Yokasta Webb PGY5 Pager [phone] YOKASTA WEBB MD | | + + [...] from | | | | | | [id number], | | | | | | [id number], | | | | | | [id number], and | | | | | | [id number]). According | | | | | | to [facility], molecular | | | | | | [...] Castañeda, | | | | | | MD, PhD | | | | | | | | | | | | | | | | | | NeuropathologistPatholog | | | | | | y, [facility] & | | | | | | [facility] | | | | | | electronic [...] | | | | | | number [id number]. | | | | | | Other, [...] | + + + + + | [facility] DEPARTMENT | [address] | [place] [address] | | | PATHOLOGY | [address] | | | + + + + + CBC (HEMOGRAM) ONLY (07/08/2018 4:13 AM PST) + +---------+ + + + | Component | Value | Ref Range | Performed | Pathologist | | | | | At | Signature | + +---------+ + + + | WHITE [facility] | 9.37 | 3.50 - 10.80 | [facility] | [...] LABORATORY | [address] | [place] [address] | | | SERVICES, CORE | JEAN [...] | + + + + + | [facility] | [address] | [place] [address] | | | SERVICES, CORE | JEAN [...] | | | LABORATORY | | | [place] | | | SERVICES, | | | [...] | + + + + + | [facility] | [address] | [place] [address] | | | SERVICES, CORE | [address] | | | + + + + + INTRAOPERATIVE NEURO MONITORING (07/08/2018) + + + | Narrative | Performed At | + + + | Patient Name: Qiana Parsons Rylan Date of : 1990 | | | Date of Test: 07/08/2018 Place | | | of Service: IP Intra Op [phone] - [id number] INTRAOPERATIVE | | | NEURO MONITORING IOM: [...] min(s), [place] | | [place] [address] - Short Latency EP's Upper AND Lower extremities | | | [address] - Central Motor EP's Upper AND Lower [...] SOLUTION 13 | | | mL (accession [id number]), GADOTERATE MEGLUMINE 0.5 MMOL/ML (376.9 | | | MG/ML) INTRAVENOUS SOLUTION 13 mL (accession [id number]) FINDINGS: | | | Thoracic spine: There [...] (376.9 MG/ML) INTRAVENOUS SOLUTION 13 mL (accession [id number]), | | GADOTERATE MEGLUMINE 0.5 MMOL/ML (376.9 MG/ML) INTRAVENOUS SOLUTION 13 mL (accession | | [id number]) FINDINGS:Thoracic spine: There is abnormal T2 hyperintensity [...] Preliminary: Jeferson Castro MD Dictation initiated: Jeferson | Thalia Castro MD 07/07/2018 3:40 PM | |Dictation [...] SOLUTION 13 | | | mL (accession [id number]), GADOTERATE MEGLUMINE 0.5 MMOL/ML (376.9 | | | MG/ML) INTRAVENOUS SOLUTION 13 mL (accession [id number]) FINDINGS: | | | Thoracic spine: There [...] (376.9 MG/ML) INTRAVENOUS SOLUTION 13 mL (accession [id number]), | | GADOTERATE MEGLUMINE 0.5 MMOL/ML (376.9 MG/ML) INTRAVENOUS SOLUTION 13 mL (accession | | [id number]) FINDINGS:Thoracic spine: There is abnormal T2 hyperintensity [...] the report as now presented. Final signature: Thalia Prescott | 07/07/2018 3:48 PM Preliminary: Jeferson Castro MD Dictation initiated: Jeferson | | MD Matthew 07/07/2018 3:40 PM | |Dictation initiated: Jeferson [...] LABORATORY | [address] | [place] [address] | | | SERVICES, | [address] [...] LABORATORY | [address] | [place] [address] | | | SERVICES, | [address] [...] LABORATORY | [address] | [place] [address] | | | SERVICES, CORE | PARK [...] | + + + + + | [facility] | [address] | [place] [address] | | | SERVICES, CORE | JEAN [...] | | | LABORATORY | | | [place] | | | SERVICES, | | | [...] + + + + + | [facility] | [address] | [place] [address] | | | SERVICES, CORE | JEAN [...] | | | | | modification) on 07/08/18 at | | | | | | | 2200, Until Discontinued | | | | | | + +--------+ +--------+------+------+ +-------+ +--------+---+---+ | Given | 07/12/19 | [...] +---+---+ | | | +---+---+ + +-------+ +---+---+ + | bacitracin 50,000 Units, | Given | 07/08/20 | | | Surgical | | ringers (TIS-U-JADIEL) 1,000 mL | | 18 10:38 | | | Site | | INTRAPROCEDURE PRN, Starting Mon | | AM PST | | | | | 07/08/18 at 1038, Until Mon | | | | | | | 07/08/18 at 1305 | | | | | | + +-------+ +---+---+ + +---+---+ | | | +---+---+ + [...] +-------+---+ + | bupivacaine-EPINEPHrine | Given | 07/08/20 | 10 mL | | Surgical | | (MARCAINE-EPINEPHRINE) 0.25 | | 18 10:12 | | | Site | | %-1:200,000 injection | | AM PST | | | | | INTRAPROCEDURE PRN, Starting Mon | | | | | | | 07/08/18 at 1012, Until Mon | | | | | | | 07/08/18 at 1305 | | | | | | + +-------+ +-------+---+ + + +---+ | | | + +---+ | dexamethasone (DECADRON) tablet | | | 2 mg 2 mg, oral, EVERY 24 | | | HOURS, 1 dose, First dose on Fri | | | 07/12/18 at 2100 | | + +---+ | | | + +---+ + +-------+ +------+---+---+ | diazePAM (VALIUM) tablet 2 mg | Given | 07/12/19 | 2 mg | | | | 2 mg, oral, THREE TIMES DAILY | | 19 3:36 | | | | | NEEDED, Starting Tu07/09/18 at | | PM PST | | [...] | | | | +-------+ + +---+---+ + +---+ | | | + +---+ | ondansetron (ZOFRAN) injection | | | 4 mg 4 mg, intravenous, EVERY 12 | | | HOURS NEEDED, Starting Tue | | | 07/09/18 at 1130, Until 07/12/18 | | | at 2255, nausea/vomiting, first | | | line | | + +---+ | | | + +---+ + +-------+ +------+---+---+ | polyethylene glycol (MIRALAX) [...] | | +-------+ +------+---+---+ | Given | 01/02/20 | 17 g | | | | [...] thrombin 5000 unit topical | Given | 07/08/20 | 5,000 | | Surgical | | solution INTRAPROCEDURE PRN, | | 18 10:12 | Units | | Site | | Starting Sun07/08/18 at 1012, | | AM PST | | | | | Until Sun07/08/18 at 1305 | | | | | | + [...]
--- OUTSIDE RECORDS SUMMARY | ~2019-06-26 | XMS | Encounter Summary ---
Demographics + + + | Address | [address] | | | [place] [address] | + + + | Home Phone [...] | | + + +---------+ + | Juidt Fagan | ECON | Unknown | | + + +---------+ + Care Team Providers + +------+ + | Care Pipeline Engineer Name | Role | Phone | [...] + + + + | 01/13/ | Anesthesia | 6A Intra Op [address]181 | Joyce Flores MD | | | 2017 | Event | [address] | [address] | | | | | [facility] | [place], | | | | | Hospital Admitting | [place] [address] | | | | | Desk Located on the | [phone] | | | | | 9th floor | | | | | | [place], [place] | Rosemary Quesada MD | | | | | [address] | [address] | | | | | | [address] | | | | | | [place], [place] | | | | | | [address] | | | | | | [phone] | | | | | | | | +--------+ + + + + Anesthesia Record + + + + + | Procedure Name | Responsible | Anesthesia Start | Anesthesia Stop Time | | | Anesthesiologist | Time | | + + + + + | REDO T7-T10 THORACIC | Joyce Flores MD | 01/13/17 1359 | 01/13/17 1926 | | LAMINECTOMIES FOR | | | | | RESECTION OF MASS, | | | | | INTRAOPERATIVE NEURO | | | | | MONITORING AND | | | | | ULTRASOUND, | | | | | SPECIMENS TO | | | | | PATHOLOGY X 2 (KYMBERLY) | | | | | (N/A Back) | | | | + + + + + +----+---+ + + | Da | T | Event | Comment | | te | i | | | | | m | | | | | e | | | +----+---+ + + | 07 | 1 | Eq Check | Anesthesia machine checked Equipment verified | | /0 | 3 | | | | 8/ | 2 | | | | 20 | 7 | | | | 17 | | | | +----+---+ + + | | 1 | Pt. Check | Prior to anesthesia start, pt. Identified, examined, chart | | | 3 | | reviewed, PARQ held, anesthetic plan made or approved by | | | 4 | | attending anesthesiologist. NPO status confirmed as appropriate | | | 0 | | for procedure Preoperative evaluation: unchanged | +----+---+ + + | | 1 | An Start | | | | 3 | | | | | 5 | | | | | 9 | | | +----+---+ + + | | 1 | An Start | | | | 4 | Data | | | | 0 | | | | | 2 | | | +----+---+ + + | | 1 | An Start | | | | 4 | Data | | | | 0 | | | | | 3 | | | +----+---+ + + | | 1 | Vitals | Monitors applied Vital signs checked Patient ready for anesthesia | | | 4 | Checked | | | | 0 | | | | | 4 | | | +----+---+ + + | | 1 | ETT | | | | 4 | | | | | 1 | | | | | 0 | | | +----+---+ + + | | 1 | Art Line | | | | 4 | | | | | 3 | | | | | 6 | | | +----+---+ + + | | 1 | Ready | | | | 4 | | | | | 4 | | | | | 1 | | | +----+---+ + + | | 1 | Local | | | | 5 | Anesthetic | | | | 0 | by Surgeon | | | | 2 | | | +----+---+ + + | | 1 | Abx | | | | 5 | Administere | | | | 0 | d | | | | 4 [...] | Surgery end | | | | 9 | | | | | 0 | | | | | 4 | | | +----+---+ + + | | 1 | An Extubate | Neuromuscular function Intact. Pharynx suctioned. Patient obeys | | | 9 | | commands. Adequate pulmonary mechanics. | | | 1 | | | | | 9 | | | +----+---+ + + | | 1 | an stop | | | | 9 | data | | | | 2 | | | | | 0 | | | +----+---+ + + | | 1 | PACU Rpt | | | | 9 | Given | | | | 2 | | | | | 6 | | | +----+---+ + + | | 1 | Anesthesia | | | | 9 | End | | | | 2 | | | | | 6 | | | +----+---+ + + +------+ | Meds | +------+ + + + | Name | Total | + + + | midazolam | 2 mg | + + + | propofol | 340 mg | + + + | lidocaine 2% | 100 mg | + + + | rocuronium | 25 mg | + + + | fentaNYL | 300 mcg | + + + | ceFAZolin | 2,000 mg | + + + | dexamethasone | 8 mg | + + + | ondansetron | 4 mg | + + + | propofol INF | 1,696,662 mcg | + + + | SUFentanil INF | 70.42 mcg | + + + | phytonadione (vitamin K1) | 10 mg | | (VITAMIN K, MEPHYTON) IV 10 mg | | + + + | ketamine | 55 mg | + + + | LR | 1,700 mL | + + + | LR | 257.5 mL | + + + + + | Name | + + | O2 FR Avance (Total Liters) | + + | Air FR Avance (l/min) | + + | Insp Sevo | + + | Et Sevo | + + | Insp Iso | [...] +--------+ + + + | Incisi | 03/22/16; Michelle Luis; Posterior; | 03/22/16 0000 by | 04/27/17 0659 by | | on | spine- thoracic; 04/27/17 | Katelyn Gibson RN | Discontinued After | | | (Automatic cleanup per RA | | Discharge | | | 3006--contact admin for | | | | | questions.); 0659 (Automatic | | | | | cleanup per RA 3006--contact | | | | | admin for questions.) | | | +--------+ + + + | Periph | 01/11/17; Right; Hand; 01/14/17; | 01/11/17 0000 by | 01/14/17 0624 by | | eral | 0624; Per patient/family request, | Nona Corado RN | Shahab Wahl RN | | IV | Site change, Other (Comment) | | | | | (Site pain) | | | +--------+ + + + | Periph | 01/13/17; 1414; Left; Hand; 16 g; | 01/13/17 1414 by | 01/14/17 0800 by | | eral | 01/14/17; 0800; Site problems | Vinny Gilbert MD | Theresa Kerns, | | IV | | | RN | +--------+ + + + | Urethr | 01/13/17; 1420; Harry Sy | 01/13/17 1420 by | 01/16/17 1800 by | | nataliia | SOLOMON; Quiana; 16 Fr.; 10 mL; | Kang Tuttle RN | Sasha Peña RN | | Viral | 01/16/17; 1800 | | | | er | | | | +--------+ + + + | Arteri | 01/13/17; 1436; Left; Radial; | 01/13/17 1436 by | 01/14/17 0105 by | | al | 20g; 01/14/17; 0105; Per order | Vinny Gilbert MD | Kamila Justice, | | Line | | | RN | +--------+ + + + documented [...] + | [facility] ETT | Routin | 01/15/2017 | | Results for this | | | e | 6:21 AM | | procedure are in the | | | | PDT | | results section. | + +--------+ + + + | [place] ART LINE | Routin | 01/15/2017 | | Results for this | | | e | 6:21 AM | | procedure are in the | | | | PDT | | results section. | + +--------+ + + + documented in this encounter Results [place] ETT (01/15/2017 6:21 AM PDT) + + + | Narrative | Performed At | + + + | Vinny Gilbert MD 01/13/2017 3:37 PM Procedure Reason for | | | Intubation: For surgical procedure, Location Performed: [place] , Patient | | | was preoxygenated Mask Ventilation Grade 1 - Ventilated by mask | | | Intubation Blade type: Ángel , Blade size: 3, Atraumatic | | | laryngoscopy: Atraumatic Laryngoscopy, Intubation adjuncts: N/A , | | | Laryngoscopic view: Grade I, Fiberoptics used: N/A , Number of | | | Attempts: 1, Positive for EtCO2: Yes, Breath sounds: Bilateral and | | | equal ETT Ett Adult: Single-lumen cuffed ETT Size: 7 ETT | | | secured with: adhesive tape Depth at Lip: 21 Cm Airway leak: | | | No Narrative Attending physically present Performed by | | | Resident | | + + + ANE ART LINE (01/15/2017 6:21 AM PDT) + + + | Narrative | Performed At | + + + | Vinny Gilbert MD 01/13/2017 3:36 PM Procedure ART LINE | | | Procedure Information Inserted: After Induction 20 minutes to | | | perform. Type Catheter: Arrow kit Indications: Beat to beat blood | | | pressure monitoring and Frequent lab draws Location Performed: [place] | | | Informed Consent: Included in anesthesia consent Protective Barrier: | | | Cap, Mask, Hand scrub and Sterile Gloves Skin Prep: Chloraprep | | | Draped: Partially draped Anesthesia Method: General anesthesia | | | Insertion side: Left Insertion Site: Radial Access device: 20g | | | Line secured by:Tape, Dressing Applied and StatLock | | | Assessment Number of attempts: 3rd Complications: None Assessment: | | | Catheter connected to pressure line and flushed, catheter manually | | | flushed, Tolerated procedure well and Perfusion checked distal to | | | catheter Attending physically present Attending Name: JOYCE FLORES | | | Performed by Resident Name: VINNY GILBERT 2 attempts on | | | right radial with flash but unable to thread wire and catheter. | | | Moved to left radial with ultrasound guidance, success on 1st | | | attempt. | | + + + documented in this encounter Visit Diagnoses Not on filedocumented in this encounter Administered Medications + +--------+ + +------+------+ | Medication Order | MAR | Action | Dose | Rate | Site | | | Action | Date | | | | + +--------+ + +------+------+ | ceFAZolin (ANCEF) injection | Given | 01/14/20 | 2,000 mg | | | | intravenous, INTRAPROCEDURE PRN, | | 17 3:04 | | | | | Starting 01/13/17 at 1504, | | PM PDT | | | | | Until 01/13/17 at 1920 | | | | | | + +--------+ + +------+------+ +---+---+ | | | +---+---+ + +-------+ +------+---+---+ | dexamethasone (DECADRON) | Given | 01/14/20 | 8 mg | | | | injection INTRAPROCEDURE PRN, | | 17 2:43 | | | | | Starting 01/13/17 at 1443, | | PM PDT | | | | | Until 01/13/17 at 1920 | | | | | | + +-------+ +------+---+---+ +---+---+ | | | +---+---+ + +-------+ +--------+---+---+ | fentaNYL citrate (PF) | Given | 01/14/20 | 50 mcg | | | | (SUBLIMAZE) injection | | 17 6:46 | | | | | INTRAPROCEDURE PRN, Starting Sat | | PM PDT | | | | | 01/13/17 at 1407, Until 01/13/17 | | | | | | | at 1920 | | | | | | + +-------+ +--------+---+---+ +-------+ +---------+---+---+ | Given | 01/14/20 | 50 mcg | | | | | 17 3:26 | | | | | | PM PDT | | | | +-------+ +---------+---+---+ | Given | 01/14/20 | 200 mcg | | | | | 17 2:07 | | | | | | PM PDT | | | | +-------+ +---------+---+---+ +---+---+ | | | +---+---+ + +-------+ +-------+---+---+ | ketamine (KETALAR) injection | Given | 01/14/20 | 15 mg | | | | INTRAPROCEDURE PRN, Starting Sat | | 17 4:33 | | | | | 01/13/17 at 1530, Until 01/13/17 | | PM PDT | | | | | at 1920 | | | | | | + +-------+ +-------+---+---+ +-------+ +-------+---+---+ | Given | 01/14/20 | 40 mg | | | | | 17 3:30 | | | | | | PM PDT | | | | +-------+ +-------+---+---+ +---+---+ | | | +---+---+ + + + +---+---+---+ | lactated Ringers IV | given by | 01/14/20 | | | | | INTRAPROCEDURE CONTINUOUS PRN, | | 17 6:47 | | | | | Starting 01/13/17 at 1359, | anesthes | PM PDT | | | | | Until 01/13/17 at 1920 | iology | | | | | + + + +---+---+---+ +---------+ +---+---+---+ | New Bag | 01/14/20 | | | | | | 17 5:14 | | | | | | PM PDT | | | | +---------+ +---+---+---+ | New Bag | 01/14/20 | | | | | | 17 1:59 | | | | | | PM PDT | | | | +---------+ +---+---+---+ +---+---+ | | | +---+---+ + +---------+ +---+ +---+ | lactated Ringers IV | New Bag | 01/14/20 | | 75 mL/hr | | | INTRAPROCEDURE CONTINUOUS PRN, | | 17 2:53 | | | | | Starting 01/13/17 at 1441, | | PM PDT | | | | | Until 01/13/17 at 1920 | | | | | | + +---------+ +---+ +---+ +---+---+ | | | +---+---+ + +-------+ +--------+---+---+ | lidocaine PF (XYLOCAINE MPF) 20 | Given | 01/14/20 | 100 mg | | | | mg/mL (2 %) injection | | 17 2:07 | | | | | INTRAPROCEDURE PRN, Starting Sat | | PM PDT | | | | | 7/8/17 at 1407, Until 01/13/17 | | | | | | | at 1920 | | | | | | + +-------+ +--------+---+---+ +---+---+ | | | +---+---+ + +-------+ +------+---+---+ | midazolam (VERSED) injection | Given | 01/14/20 | 2 mg | | | | INTRAPROCEDURE PRN, Starting Sat | | 17 2:00 | | | | | 01/13/17 at 1400, Until 01/13/17 | | PM PDT | | | | | at 1920 | | | | | | + +-------+ +------+---+---+ +---+---+ | | | +---+---+ + +-------+ +------+---+---+ | ondansetron (ZOFRAN) injection | Given | 01/14/20 | 4 mg | | | | INTRAPROCEDURE PRN, Starting Sat | | 17 6:33 | | | | | 01/13/17 at 1833, Until 01/13/17 | | PM PDT | | | | | at 1920 | | | | | | + +-------+ +------+---+---+ +---+---+ | | | +---+---+ + +---------+ +-------+---+---+ | phytonadione (vitamin K1) | New Bag | 01/14/20 | 10 mg | | | | (VITAMIN K, MEPHYTON) IV 10 mg | | 17 2:59 | | | | | 10 mg, intravenous, ONCE, 1 dose, | | PM PDT | | | | | 01/13/17 at 1345 | | | | | | + +---------+ +-------+---+---+ +---+---+ | | | +---+---+ + + + + +-------+---+ | propofol (DIPRIVAN) injection | Rate/Dos | 01/14/20 | 90 | 39.2 | | | INTRAPROCEDURE CONTINUOUS PRN, | e Change | 17 6:14 | mcg/kg/m | mL/hr | | | Starting 01/13/17 at 1453, | | PM PDT | in | | | | Until 01/13/17 at 1920 | | | | | | + + + + +-------+---+ + + + +--------+---+ | Rate/Dose Change | 01/14/20 | 100 | 43.56 | | | | 17 5:31 | mcg/kg/m | mL/hr | | | | PM PDT | in | | | + + + +--------+---+ | Rate/Dose Change | 01/14/20 | 110 | 47.92 | | | | 17 4:35 | mcg/kg/m | mL/hr | | | | PM PDT | in | | | + + + +--------+---+ +---+---+ | | | +---+---+ + +-------+ +-------+---+---+ | propofol INTRAPROCEDURE PRN, | Given | 01/14/20 | 50 mg | | | | Starting 01/13/17 at 1407, | | 17 3:28 | | | | | Until 01/13/17 at 1920 | | PM PDT | | | | + +-------+ +-------+---+---+ +-------+ +-------+---+---+ | Given | 01/14/20 | 40 mg | | | | | 17 2:47 | | | | | | PM PDT | | | | +-------+ +-------+---+---+ | Given | 01/14/20 | 50 mg | | | | | 17 2:44 | | | | | | PM PDT | | | | +-------+ +-------+---+---+ +---+---+ | | | +---+---+ + +-------+ +-------+---+---+ | rocuronium (ZEMURON) injection | Given | 01/14/20 | 25 mg | | | | INTRAPROCEDURE PRN, Starting Sat | | 17 2:07 | | | | | 01/13/17 at 1407, Until 01/13/17 | | PM PDT | | | | | at 1920 | | | | | | + +-------+ +-------+---+---+ +---+---+ | | | +---+---+ + +---------+ + +-------+---+ | SUFentanil INF INTRAPROCEDURE | New Bag | 01/14/20 | 0.3 | 0.44 | | | CONTINUOUS PRN, Starting Sat | | 17 2:56 | mcg/kg/h | mL/hr | | | 01/13/17 at 1456, Until 01/13/17 | | PM PDT | r | | | | at 1920 | | | | | | + +---------+ + +-------+---+ +---+---+ | | | +---+---+ documented in this encounter"
--- OUTSIDE RECORDS SUMMARY | ~2019-06-26 | XMS | Encounter Summary ---
Demographics + + + | Address | [address] | | | [place] [address] | + + + | Home Phone | | + + + | Preferred Language | Unknown | + + + | Marital Status | Single | + + + | Denominational Affiliation | NON | + + + | Race | White | + + + | Ethnic Group | Not or | + + + Author + + + | Author | [facility] | + + + | Organization | [facility] | + + + | Address [...] Team Providers + +------+ + | Care High Court Justice Name | Role | Phone | + +------+ + | No Pcp Per Patient | PCP | Unavailable | + +------+ + Encounter Details +--------+--------+ + + + | Date | Type | Department | Care Team | Description | +--------+--------+ + + + | 06/26/ | Intake | Transfer Center | | N/A | | 2019 | | [address] | | | | | | [place], | | | | | | [place] [address] | | | +--------+--------+ + + + Social History + +-------+ [...]
--- OUTSIDE RECORDS SUMMARY | ~2019-06-26 | XMS | Encounter Summary ---
Demographics + + + | Address | [address] | | | [place] [address] | + + + | Home Phone | | + + + | Preferred Language | Unknown | + + + | Marital Status | Single | + + + | Faith Affiliation | NON | + + + [...] Team Providers + +------+ + | Care Customer Service Advocate Name | Role | Phone | + [...] | Surgery | Spinal cord | Dept [facility] | Rajinder Fisher MD | | | | | tumor ED | [address] | [address] | | | | | f/u T[address] | [address] | [address] | | | | | spinal cord | [address] [facility] | [place], [place] | | | | | tumor with | Hospital | [address] | | | | | right leg | [place], [place] | Phone: | | | | | weakness. 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
--- OUTSIDE RECORDS SUMMARY | ~2019-06-26 | XMS | Encounter Summary ---
Demographics + + + | Address | [address] | | | [place] [address] | + + + | Home Phone [...] Team Providers + +------+ + | Care Shirt Closer Name | Role | Phone | + +------+ + | Tiff ChapinP | PCP | | + +------+ + Reason for Referral Physical Therapy (Routine) +--------+--------+ + + + + | Status | Reason | Specialty | Diagnoses / | Referred By | Referred To | | | | | Procedures | Contact | Contact | +--------+--------+ + + + + | Closed | | Physical | Diagnoses | Rom[facility] | [facility] | | | | Therapy | Spinal cord | Raegan Nieves, | [address] | | | | | tumor | [address] [address] | | | | | Procedures | [address] | Mailcode: | | | | | PHYSICAL | [place], | [facility] | | | | | THERAPY | [place] | for Health | | | | | REFERRAL | [address] | and Healing, | | | | | | Phone: | [address], | | | | | | [phone] | [address] | | | | | | Fax: | [place], [place] | | | | | | [phone] | [address] | | | | | | | Phone: | | | | | | | [phone] | | | | | | | Fax: | | | | | | | [phone] | +--------+--------+ + + + + Encounter Details +--------+ + + + + | Date | Type | Department | Care Team | Description | +--------+ + + + + | 09/14/ | Release Of Information Clerk | Neurosurgery at | Raegan Doss, | 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
--- OUTSIDE RECORDS SUMMARY | ~2019-06-26 | XMS | Encounter Summary ---
Demographics + + + | Address | [address] | | | [place] [address] | + + + | Home Phone [...] Providers + +------+ + | Care Manufacturing Associate Name | Role | Phone | + +------+ + | No Pcp Per Patient | PCP | Unavailable | + +------+ + Encounter Details +--------+ + + + + | Date | Type | Department | Care Team | Description | +--------+ + + + + | 06/04/ | Procedure | Radiology/Imaging | | | | 2017 | Pass | Lab at [facility] [address] | | | | | | [address] Mailcode: | | | | | | [address] [facility] | | | | | | Health and Healing, | | | | | | [facility] [address], 3rd | | | | | | Floor [place], [place] | | | | | | [address] | | | | | | [phone] | | | +--------+ + + + [...]
--- OUTSIDE RECORDS SUMMARY | ~2019-06-26 | XMS | Encounter Summary ---
Demographics + + + | Address | [address] | | | [place] [address] | + + + | Home Phone [...] Team Providers + +------+ + | Care V Belt Skiver Name | Role | Phone | + [...] | 2015 | | [address] | [address] | AND | | | | Franko [facility] | [place], [place] | | | | | Hospital Admitting | [address] | | | | | Desk Located on the | [phone] | | | | | 9th floor | | | | | | [place], [place] | | | | | | [address] | | | +--------+---------+ + + + [...] Rajinder Luis MD PCP: PATRIC Todd [facility] Neurosurgery Diagnoses Principal Final Diagnosis: Intramedullary [...] patient was felt appropriate for discharge to [facility] (Colette ROBERTS, [facility]) on 05/20/2015, and the patient and/or [...] completed No Destination: Destination: Inpatient Rehab - LOCATED WITHIN [facility] Condition on Discharge Good Discharge Follow Up - Facility MD to follow Facility MD to follow patient. FOLLOW-UP You have a wound check appointment with Raegan Doss PA-C at 11:30am on 05/31. This will be on the 8th floor at the [facility] on the [facility] located at [address] [place] [address]. Please call [phone] if you have any questions or conc erns before your appointment time. If you are still admitted to [facility] at this time, it is okay to cancel this appointment as thais costa as a provider at that facility can examine your incision. Please then make an appointmen t with Raegan Doss for 1 month following your discharge from [facility]. PCP:PATRIC Todd When: Please follow-up with [...] 0500) Discharge Patient To: Interhospital Transfer - [facility] Does patient have a planned readmission: No Discharge Summary Completed?: Yes. 05/20/2015 Discharging Provider: Raegan Doss PA-C Date Completed: 05/20/2015 Time Completed: 7:50 AM Discharging Attending: Rajinder Luis MD [facility] [address] [address] [place] [address] documented in this encounter Progress Notes Raegan [...] al sides of foot. Motor: Tri Bi Wireless Team Member HF KE APF ADF Left 5 5 [...] BLE duplex neg for DVT. Dispo: To [facility] ([facility]) today. Raegan Doss PA-C [facility] [address] [place] [address] Drive [facility] [place] [address] dams, PHILIPPE Mena - 05/19/2015 6:52 AM [...] Intake/Output Summary (Last 24 hours) at 05/19/15 0687 Last data filed at 05/19/15 033 Gross [...] rest of the LLE. Motor: Tri Bi Wireless Team Member HF KE APF ADF Left 5 5 [...] CM for IPR placement. Raegan Doss PA-C [facility] [address] [address] [place] [address] dams, PHILIPPE Mena - 05/18/2015 6:52 AM [...] Delivery Device: None (room ai r) (05/18/15 1413) 24 Hour Vital Min/Max: Systolic (24hrs), Av [...] intact at pre-op baseline. Motor: Bi Tri Wireless Team Member HF KE APF ADF Left 5 5 [...] CM for IPR placement. Raegan Doss PA-C [facility] [address] [address] [address] dams, PHILIPPE Mena - 05/17/2015 8:48 AM [...] at pre-op baseline. Motor: Delt Tri Bi Wireless Team Member HF KE APF ADF Left 5 5 [...] CM for IPR placement. Raegan Doss PA-C [place] [id number] [address] [address] Cesar Cxo MD - 02/2015 9:39 AM PST NEUROSURGERY [...] 05/14/2015 ICU Attending: MD Sarina Admit Service: [facility] ICU Day # 2 POD # 1 HPI: Matt Fagan is a 24 y.o. 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 She reports that her RLE numbness has worsened si iae neurosurgery last saw her. She also endorses [...] information of next of kin: Judit mother [phone] Disposition: Acute care Code: Full This patient has been staffed with Lesly Branch MD , attending physician, who agrees with the above assessment and plan. [facility] DEPARTMENT: [id number] ICU NEURO Place of Service:- Inpatient Date of Service: 05/14/2015 CSN: [id number] Lab Results Component Value Date WBC 23.58 [...] and check patient later Yokasta Randall PGY2 [id number] [facility] Lesly Lang MD - 8:25 AM [facility] Author: Lesly Branch MD Briefly, [...] DVT proph with SCDs. Lesly Branch M.D. [facility] Neurology and Emergency Medicine I spent 20 minutes in direct care of this patient with over 50% spent at the patient s b eside, reviewing data, discussing the patient s care with other medical staff, charting, a nd discussion with treatment decision maker. [facility] DEPARTMENT: [id number] Place of Service: Inpatient Date of Service: 05/14/2015 [facility]: [id number] Suggested Level of Care: 74737 - SUBSEQUENT HOSPITAL CARE,LEVEL III impson, Polly [...] the or iginal. NSICU Neuroscience ICU Attending School Nurse Note I have seen and evaluated Matt [...] and coordination of care Cathy Cespedes MD,PhD [facility] DEPARTMENT: [id number] ICU NEURO Place of Service:- Inpatient Date of Service: 05/13/2015 CSN: [id number] Suggested Modifier: Resident involved Suggested CPT: TO CRYPTOLOGIC SUPPORT SPECIALIST Gilbert Collins MD,MPH - 05/13/2015 8:49 PM [...] and entire foot. Motor: Tri Bi WE Wireless Team Member HF KE APF ADF Left 5 5 [...] dilaudid available prn pain Raegan Doss PA-C [facility] [address]K [address] [place] [address] Polly Collins MD,MPH - 05/12/2015 7:33 PM [...] Attending | | Surgeon: Rajinder Luis MD Siding Mechanic(s): Jere Story MD | | Preoperative Diagnosis: [...] | endotracheal anesthesia was induced on the [facility]. Occlusive dressings were | | placed [...] turned back supine on | | the [facility]. She was extubated and she was taken to the recovery area in stable | | condition. At the end of the case, all instrument, sponge, and needle counts were | | correct in 2 iterations. I, Rajinder Luis MD was scrubbed and actively participated | | performing the critical portions of the operation.ZAMZAM Henry/CESARD: | | 05/15/2015 08:21:01DT: 05/15/2015 08:59:43Job #: [id number] | | | |Rajinder Luis MD | |EZEKIEL/SHANNAN | | | | | | /[id number] | + + MAGNESIUM, PLASMA (05/17/2015 10:09 [...] LABORATORY | [address] | [place] [address] | | | SERVICES, CORE | JEAN [...] LABORATORY | [address] | [place] [address] | | | SERVICES, CORE | PARK [...] | | | LABORATORY | | | [place] | | | SERVICES, | | | [...] | + + + + + | [facility] | [address] | [place] [address] | | | NINO LEONARD | JEAN [...] | | | | | baldemar / KOREY | | | | | [...] LABORATORY | [address] | [place] [address] | | | SERVICES, CORE | PARK [...] | | | LABORATORY | | | [place] | | | SERVICES, | | | [...] | + + + + + | [facility] | [address] | [place] [address] | | | SERVICES, NINO | JEAN [...] | + + + + + | [facility] | [address] | [place] [address] | | | SERVICES, CORE | PARK [...] | + + + + + | [facility] | [address] | [place] [address] | | | SERVICES, NINO | PARK [...] | | | LABORATORY | | | [place] | | | SERVICES, | | | [...] | + + + + + | [facility] | [address] | [place] [address] | | | SERVICES, CORE | PARK [...] LABORATORY | [address] | [place] [address] | | | SERVICES, CORE | PARK [...] [place] [facility] | [address] | [place] [address] | | | SERVICES, CORE | PARK [...] | | | LABORATORY | | | [place] | | | SERVICES, | | | [...] | + + + + + | [facility] | [address] | [place] [address] | | | NINO LEONARD | PARK [...] LABORATORY | [address] | [place] [address] | | | HORACIO, CORE | JEAN [...] | | | LABORATORY | | | [place] | | | SERVICES, | | | [...] | + + + + + | [facility] | [address] | [place] [address] | | | SERVICES, CORE | [address] | | | + + + + + INTRAOPERATIVE NEURO MONITORING (05/13/2015) + + + | Narrative | Performed At | + + + | Patient Name: Matt Fagan Date of : 1990 | | | Date of Test: 05/13/2015 Place of | | | Service: IP Intra Op (52) [id number] INTRAOPERATIVE NEURO | | | MONITORING History: [...] min(s), with modifier GY | | | 31712 - Short Latency EP's Upper AND Lower extremities 10481 - | | | Central Motor EP's [...] A IDH1 & IDH2 MUTATION | | [facility] | | | MUTATION | ANALYSISSpecimen [...] 2008 | | | | | | 15(19):7867-72. | | | | | | Edison H, et al. IDH1 and | | | | | | IDH2 mutations in | | | | | | gliomas. N Engl J Med. | | | | | | 2008Feb | | | | | | (8):358-597.3. | | | | | | Lewis [...] 2008 | | | | | | 6812):7985-254. | | | | | | Rogelio [...] | | | | | determined by [facility] | | | | | | [facility] | | | | | Laboratories; CLIA # | | | | | | [id number]. It has not | | | | [...] | [facility] | [address], | [place] [address] | | | DIAGNOSTIC | [address] [...] (7q34)break-apart/ | | | | | | [id number] probe set. 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 Jessica CM, | | | | | | Cheo SR, Shelton | | | | | | FJ, Jena JS, Lopez Keys BE, | | | | | | Sedebbie AR,Dl GUS, | | | | | | Chuckie SENIOR APPLICATIONS ENGINEER, Warren C. 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 | | | | | | Proc Natl Acad Sci U S | | | | | | A. 2011 May | | | | | | 109(22):4511-49. | | | | | | Dyson-Zo [...] | | | | | | S. 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 PLoS One. | | | | | | 2010 Mar | | | | | | 29;6(3):c79880.5. | | | | | | April [...] | | | | | determined by [facility] | | | | | | [facility] | | | | | | Laboratories; CLIA # | | | | | | [id number]. It has not | | | | [...] + + + + | [facility] | [address] | [place] [address] | | | DIAGNOSTIC | [address] [...] of | | | | | | [facility] | | | | | | University. [...] into | | | | | | DEMOLITION ENGINEER tissue. Tumor cells | | | | [...] block | | | | | | [id number] | | | | | | stains: see IHC | | | | | | tableNo Electron | | | | | | microscopy | | | | | | performedMolecular | | | | | | genetic studies | | | | | | performedOther Molecular | | | | | | Studies: PCR for BRAF | | | | | | [id number] for BRAF | | | | | [...] | | | | | | Block [id number]: | | | | | | Tumor cells | | | | | | Marker Result | | | | | | CommentGlial | | | | | | Fibrillary Acidic | | | | | | Protein | | | | | | PositiveVimentin | | | | | | PositiveOlig 2 | | | | | | LykvtosyZD21 % | | | | | | Positive less than | | | | | | 5%PhosphoHistone 3, | | | | | | mitotic marker | | | | | | NegativeEpithelial | | | | | | Membrane Antigen | | | | | | NegativeATRX(DEMOLITION ENGINEER and | | | | | | [...] PositiveChromogranin | | | | | | AybewegcIE73 (HPCA-1) | | | | | | [...] | + + + + + | [facility] | [address] | [place] [address] | | | PATHOLOGY | [address] [...] [facility] | [address] | [place] [address] | | | SERVICES, | [address] [...] LABORATORY | [address] | [place] [address] | | | SERVICES, | [address] [...] | + + + + + | [facility] | [address] | [place] [address] | | | SERVICES, NINO | JEAN [...] | + + + + + | [employer] [facility] | [address] | [place] [address] | | | SERVICES, CORE | JEAN [...] | | | LABORATORY | | | [place] | | | SERVICES, | | | [...] [facility] | [address] | [place] [address] | | | SERVICES, CORE | PARK [...] [facility] | [address] | [place] [address] | | | SERVICES, CORE | PARK [...] | + + + + + | [facility] | [address] | [place] [address] | | | HORACIO, NINO | JEAN [...]
--- OUTSIDE RECORDS SUMMARY | ~2019-06-26 | XMS | Encounter Summary ---
Demographics + + + | Address | [address] | | | [place] [address] | + + + | Home Phone | | + + + | Preferred Language | Unknown | + + + | Marital Status | Single | + + + | Buddhism Affiliation | NON | + + + [...] Team Providers + +------+ + | Care Tea Blender Name | Role | Phone | + +------+ + | Tiff ChapinP | PCP | | + +------+ + Reason for Referral PROC - Inpatient Surgery (Routine) +--------+--------+ + + + + | Status | Reason | Specialty | Diagnoses / | Referred By | Referred To | | | | | Procedures | Contact | Contact | +--------+--------+ + + + + | Closed | | Neurological | Diagnoses | Toby, | Toby | | | | Surgery | Neoplasm of | Rajinder Fisher MD | Rajinder J, MD | | | | | uncertain | [address] | | | | | behavior of | [address] | Ave | | | | | spinal cord | [place], [place] | [place], [place] | | | | | Procedures | [address] | [address] | | | | | REQUEST TO | Phone: | Phone: | | | | | SURGERY | [phone] | [phone] | | | | | CERTIFIED DIALYSIS TECHNICIAN | Fax: | Fax: | | | | | NM BX/EXCIS | [phone] | [phone] | | | | | SPIN | | | | | | | MARCELINO,INDUR,IN | | | | | | | MED,THOR NM | | | | | | | MICROSURG | | | | | | | TECHNIQUES,R | | | | | | | EQ OPER | | | | | | | MICROSCOPE | | | +--------+--------+ + + + + Encounter Details +--------+ + + + + | Date | Type | Department | Care Team | Description | +--------+ + + + + | 05/10/ | Pharmacist'S Aide | Neurosurgery at | Raegan Doss, | Weakness of right | | 2014 | | [facility] [address] | PA-C [address] | lower extremity | | | | Ave Mailcode: CH8N | Ave [place], [place] | (Primary Dx) | | | | [facility] | [address] | | | | | and Healing, | [phone] | | | | | [facility] | | | | | | Floor [facility] [place] | | | | | | [address] | | | | | | [phone] | | | +--------+ + + + [...] lower extremity - Primary | + + documented in this encounter"
--- OUTSIDE RECORDS SUMMARY | ~2019-06-26 | XMS | Encounter Summary ---
Demographics + + + | Address | [address] | | | [place] [address] | + + + | Home Phone | | + + + | Preferred Language | Unknown | + + + | Marital Status | Single | + + + | Methodist Affiliation | NON | + + + [...] Team Providers + +------+ + | Care Clinical Trial Manager Name | Role | Phone | [...] Description | +--------+---------+ + + + | 09/08/ | Surgery | 6A Intra Op 3181 | Rajinder Luis MD | THORACIC | | 2016 | | [address] | [address] | LAMINECTOMIES | | | | [facility] | [place], [place] | | | | | Hospital Admitting | [address] | | | | | Desk Located on the | [phone] | | | | | 9th floor | | | | | | [place], [place] | | | | | | [address] | | | +--------+---------+ + + + [...] Rajinder Luis MD PCP: PATRIC Todd Service: [facility] Neurosurgery Diagnoses Principal Final Diagnosis: 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 Luis here at [facility]. She has residual right lower extremity w [...] with recommendation for IPR upon discharge. W kraig on the hospital floor, the patient tolerated oral intake sufficient to maintain nutriti on and hydration. The surgical wound remained clean, dry, and intact without signs concernin g for infection. The patient was felt appropriate for discharge to [facility] ([facility]) on 09/15/2015, a nd the patient and/or [...] on the 8t h floor at the [facility] on the [facility] located at [address] [place] [address]. Please call [phone] if you have any questions or concerns [...] 11:40 AM Discharging Attending: Rajinder Luis MD [facility] [address]K [address] [place] [address] documented in this encounter Progress Notes Raegan [...] O2 Delivery Device: None (room air) (09/15/15 0304) 24 Hour Vital Min/Max: Systolic (24hrs), Av [...] Thoracic incision: flat, dry, no erythema, intact. Garibaldi present. Sensation: LT sensation intact intact above [...] 2324 09/14/15 1028 GLU 102* 136* 104* [id number] Current Medications: acetaminophen (TYLENOL) tablet 650 mg, [...] Routine wound care. Okay to shower/shampoo daily. Garibaldi to be removed at 2 weeks post-op. [...] they have bed availability. Raegan Doss PA-C [facility] [address] [address] [address] dams, PHILIPPE Mena - 09/14/2015 8:57 AM [...] edges approximated well, no erythema, dry, intact. Garibaldi in place. Sensation: LT sensation intact above [...] Ref Range Status 07/12/2015 Negative Negative Final [id number] Current Medications: acetaminophen (TYLENOL) tablet 650 mg, [...] Routine wound care. Okay to shower/shampoo daily. Wael to be removed at 2 weeks post-op. [...] effect. Will plan to stop ISS at DC. ID/Heme: Afebrile. Leukocytosis at 15 today - possibly d/t steroids. Will cont to follow an d trend. DVT ppx: SCDs while in bed. Lovenox 40mg qHS for DVT ppx. Dispo: Appreciate CM involvement - application pending for [facility]. Raegan Doss PA-C [facility] [address] [address] [address] dams, PHILIPPE Mena - 09/13/2015 10:26 AM PST Neurosurgery Progress [...] in place, draining clear yellow urine. Labs: [id number] Current Medications: acetaminophen (TYLENOL) tablet 650 mg, [...] Routine wound care. Okay to shower/shampoo daily. Garibaldi to be removed at 2 weeks post-op. [...] once patient is able to ambulate to BSC. Musculoskeletal/skin: Routine decubitus ulcer prevention. Appreciate PT/OT involvement. Endo: CBGs reasonable. 9U ISS used last 24 hours. Mild hyperglycemia likely 2/2 steroid eff ect. Will plan to stop ISS at ID. ID/Heme: Afebrile. Will check CBC tomorrow AM. DVT ppx: SCDs while in bed. Lovenox 40mg qHS for DVT ppx. Dispo: Appreciate CM involvement - application pending for [facility]. Raegan Doss PA-C [facility] [address]S [address] [address] [place] [address] Cesar Cox MD - 12/2015 11:40 AM [...] Care Unit Attending Progress Note Attending Pager #[phone] ICU Admission Reason Most Recent Value ICU [...] tions/additions as noted. Date of Service: 09/11/2015 [facility] DEPARTMENT: ANE ICU NEURO Place of Service:- Inpatient CSN: [id number] Suggested Modifier: GC - Resident Involved Suggested CPT: TO GENERAL MERCHANDISE MANAGER DOS 09/11/2015 Author:Lesly Branch MD [address] [place] [address] [facility], Yokasta Fleming MD - 8:28 AM PST [...] In: 2139.8 [P.O.:1900; I.V.:239.8] Out: 4025 [Urine:4025] @[email or web address]@ Physical Exam: Awake, alert, oriented to self, time, place, situation PERRL EOMI Face symmetric Tongue midline No pronator drift Strength BUE 5/5 RLE 4/5 LLE 5/5 Incision c/d/i. No surrounding erythema, swelling or drainage. Garibaldi in place Endorses T12 sensory level Labs: [...] - blackburn status Please page adult resident sales correspondent [phone] with questions Yokasta Randall MD PGY-2, Neurosurgery 09/11/2015 8:28 AM Ngoc Olsen MD - 12:05 PM PST NEUROSURGERY PROGRESS NOTE Author: Ngoc Hernandez MD [...] Care Unit Attending Progress Note Attending Pager #[phone] ICU Admission Reason Most Recent Value ICU [...] on counseling and coordination of care.Seen with PA/TOOL AND DIE MAKER Mannie. Please see t heir note for details. I reviewed the documented findings, all data and the recent imaging a parisailable. Date of Service: 09/10/2015 [facility] DEPARTMENT: ANE ICU NEURO Place of Service:- Inpatient CSN: [id number] Suggested Modifier: GC - Resident Involved Suggested CPT: TO GENERAL MERCHANDISE MANAGER DOS 09/10/2015 Author:Stephie Anders MD [address] [address] Tristen Hein ACN P - 09/10/2015 7:10 AM PST . Neuroscience Intensive Care Unit Team Progress Note NSICU ASSIGNED #[id number] ICU Admission Reason Most Recent Value ICU [...] e. Date of Service: 09/10/2015 AIXA Mahajan [facility] DEPARTMENT: [facility] ICU NEURO Place of Service:- Inpatient CSN: [id number] Suggested Modifier: None Suggested CPT: TO GENERAL MERCHANDISE MANAGER DOS 09/10/2015 Author:AIXA Mahajan [address] [address] [facility] - 09/10/2015 2:58 AM [facility] NEUROSURGERY POST OPERATIVE CHECK Author: Filipe [...] bed Filipe Nelson MD Neurosurgery Resident Pager #[phone] documented in this en counter Plan of [...] LABORATORY | [address] | [place] [address] | | | SERVICES, CORE | PARK [...] +---------+ + + + | SQUAMOUS | Catrachito (A) | None /hpf | [facility] | [...] +---------+ + + + | NON-SQUAMOU | Few (A) | None /hpf | [...] LABORATORY | [address] | [place] [address] | | | SERVICES, CORE | PARK [...] LABORATORY | [address] | [place] [address] | | | NINO LEONARD | JEAN [...] | + + + + + | [facility] | [address] | [place] [address] | | | SERVICES, CORE | JEAN [...] MARQUAM | [address] | [place], [place] | | | HILL, POINT OF CARE | [address] | [address] | | | TESTS | | | [...] TILLMAN | [address] | [place] [address] | | | SERVICES, NINO | PARK [...] MARQUAM | [address] | [place], [place] | | | ZELALEM HERRERA OF CARE | [facility] | [address] | | | TESTS | | | [...] (H) | 60 - 99 mg/dL | [facility] - | | | GLUCOSE, | [...] MARQUAM | [address] | [place], [place] | | | JAVIER POINT OF CARE | [address] | [address] | | | TESTS | | | [...] BRAMBILA | [address] | [place], [place] | | | ZELALEM HERRERA OF NURIA | [facility] | [address] | | | TESTS | | | | + + + + + CAPILLARY BLOOD GLUCOSE (NO CHG)TOSHIA (09/13/2015 8:56 AM PST) + +---------+ + [...] MARQUAM | [address] | [place], [place] | | | ZELALEM HERRERA OF CARE | [facility] | [address] | | | TESTS | | | [...] (H) | 60 - 99 mg/dL | [facility] - | | | GLUCOSE, | [...] MARQUAM | [address] | [place], [place] | | | JAVIER POINT OF [facility] | [address] | [address] | | | TESTS | | | [...] BRAMBILA | [address] | [place], [place] | | | ZELALEM HERRERA OF NURIA | [facility] | [address] | | | TESTS | | | | + + + + + CAPILLARY BLOOD GLUCOSE (NO CHG) POC (09/12/2015 1:23 PM PST) + +---------+ [...] MARQUAM | [address] | [place], [place] | | | ZELALEM HERRERA OF CARE | [address] | [address] | | | TESTS | | | [...] (H) | 60 - 99 mg/dL | [facility] - | | | GLUCOSE, | [...] MARQUAM | [address] | [place], [place] | | | JAVIER POINT OF [facility] | [address] | [address] | | | TESTS | | | [...] BRAMBILA | [address] | [place], [place] | | | ZELALEM HERRERA OF NURIA | [facility] | [address] | | | TESTS | | | [...] MARQUAM | [address] | [place] | | | ZELALEM HERRERA OF NURIA | [facility] | [address] | | | TESTS | | | [...] (H) | 60 - 99 mg/dL | [facility] - | | | GLUCOSE, | [...] MARQUAM | [address] | [place], [place] | | | ZELALEM HERRERA OF [facility] | [address] | [address] | | | TESTS | | | [...] BRAMBILA | [address] | [place] | | | ZELALEM HERRERA OF CARE | [facility] | [address] | | | TESTS | | | [...] MARCEAM | [address] | [place] | | | ZELALEM HERRERA OF NURIA | [facility] | [address] | | | TESTS | | | [...] (H) | 60 - 99 mg/dL | [facility] - | | | GLUCOSE, | [...] + + + | [facility] | [address] | [place], [place] | | | ZELALEM HERRERA OF [facility] | [address] | [address] | | | TESTS | | | [...] | | | | | baldemar / SUMEET | | | | | [...] | | + +---------+ + + | [facility] DEPARTMENT OF | | | | | [...] PATTY | [address] | [place], [place] | | | ZELALEM HERRERA OF NURIA | [address] | [address] | | | TESTS | | | | + + + + + OPERATION RECORD (09/10/2015 10:32 AM PST) + + | Transcriptions | + + | Rajinder Luis MD - 09/10/2015 8:47 AM PST Date of Service: 09/09/2015 Attending | | Surgeon: Rajinder Luis MD Tool Repairer Bench(s): Jere Story MD. | | Preoperative Diagnoses: [...] 2015 by | | Toby here at [facility]. She has residual right lower extremity weakness, [...] General endotracheal anesthesia was induced on the [facility]. | | Occlusive dressings were [...] We | | attempted to use the [employer] ultrasonic aspirator, but the durotomy was fairly [...] carefully transferred | | back to the [facility]. She was extubated and she was taken to the recovery area | | in stable condition. At the end of the case, all instrument, sponge, needle counts were | | correct in 2 iterations.I, Rajinder Luis MD was scrubbed and actively participated | | performing the critical portions of the operation.WAYNE HenryL/MODLDD: | | 09/10/2015 08:01:47DT: 09/10/2015 08:47:03Job #: [id number] | + + PROCEDURE NOTE (09/10/2015 10:25 AM PST) + + + | Narrative | Performed At | + + + | Rajinder Luis MD 09/10/2015 10:25 AM INPATIENT BRIEF OPERATIVE | | | NOTE Procedure Date: 09/09/2015 Author: Jere Story MD | | | Attending Physician: Rjainder Luis MD Assistants: Jere Story MD | [...] tumor resected. Cord | | | decompressed. I, Rajinder Luis MD was scrubbed and actively | | [...] MARQUAM | [address] | [place], [place] | | | JAVIER POINT OF CARE | [address] | [address] | | | TESTS | | | [...] | + + + + + | [facility] | [address] | [place] [address] | | | SERVICES, CORE | JEAN [...] | | | LABORATORY | | | NEW ZEALANDER | | | SERVICES, | | | [...] the MDRD equation recommended by the | [facility] | | National Kidney Disease Education [...] | + + + + + | [facility] | [address] | [place] [address] | | | SERVICES, NINO | JEAN [...] + + | [facility] | [address] | [place] [address] | | | SERVICES, CORE | PARK [...] | + + + + + | [facility] | [address] | [place] [address] | | | SERVICES, | [address] [...] [facility] | [address] | [place] [address] | | | SERVICES, | [address] [...] LABORATORY | [address] | [place] [address] | | | SERVICES, CORE | PARK [...] + + + | [facility] | [address] | [place] [address] | | | SERVICES, NINO | JEAN [...] | + + + + + | [facility] | [address] | [place] [address] | | | NINO LEONARD | JEAN [...] | | | LABORATORY | | | NEW ZEALANDER | | | SERVICES, | | | [...] | + + + + + | [facility] | [address] | [place] [address] | | | SERVICES, CORE | [address] | | | + + + + + INTRAOPERATIVE NEURO MONITORING (09/09/2015) + + + | Narrative | Performed At | + + + | Patient Name: Matt Fagan Date of : 1990 | | | Date of Test: 09/09/2015 Place of | | | Service: IP Intra Op (51) [id number] INTRAOPERATIVE NEURO | | | MONITORING History: [...] | | Department of Neurology Suggested CPT: 60733 - IOM Remote x 3 | | | hr(s) 73105 - Central Motor EP's Upper AND Lower [...] resectiontumor | | | | | | ([id number]). No high | | | | | | grade features are | | | | | | demonstrated. Case | | | | | | seen by:Jean Pierre Cook | | | | | | Matt / Neuropathology | | | | | | fellowS. Griffith | | | | | | Matt Bravo / | | | | | | [...] | | | | | | Block T1Merzfcjnmk: | | | | | | Tumor cells | | | | | | Marker Result | | | | | | CommentGlial | | | | | | Fibrillary Acidic | | | | | | Protein | | | | | | PositiveVimentin | | | | | | HrxrnqbaAW19 % | | | | | | [...] Epic: | | | | | | [id number] = spinal | | | | | [...] Bravo | | | | | | M.D.PathologistElectroni | | | | | | thomas [...] | + + + + + | [facility] | [address] | [place] [address] | | | PATHOLOGY | [address] | | | + + + + + documented in this encounter Visit Diagnoses Not on filedocumented in this encounter Administered Medications + +--------+ +---------+------+ + | Medication Order | MAR | Action | Dose | Rate | Site | | | Action | Date | | | | + +--------+ +---------+------+ + | bacitracin (BACIIM) injection | Given | 09/09/19 | 50,000 | | Surgical | | INTRAPROCEDURE PRN, Starting Miriam | | 16 9:13 | Units | | Site | | 09/09/15 at 2113, Until Sun09/10/15 | | PM PST | | | | | at 0000 | | | | | | + +--------+ +---------+------+ + +---+---+ | | | +---+---+ + +-------+ +-------+---+---+ | bupivacaine-EPINEPHrine | Given | 09/09/19 | 30 mL | | | | (MARCAINE-EPINEPHRINE) 0.25 | | 16 11:34 | | | | | %-1:200,000 injection | | PM PST | | | | | INTRAPROCEDURE PRN, Starting Miriam | | | | | | | 09/09/15 at 2334, Until Sun09/10/15 | | | | | | | at 0000 | | | | | | + +-------+ +-------+---+---+ +---+---+ | | | +---+---+ + +-------+ +--------+---+ + | thrombin 5000 unit topical | Given | 09/09/19 | 5,000 | | Surgical | | solution INTRAPROCEDURE PRN, | | 16 9:14 | Units | | Site | | Starting Miriam 09/09/15 at 2114, | | PM PST | | | | | Until Sun09/10/15 at 0000 | | | | | | + +-------+ +--------+---+ + +---+---+ | | | +---+---+ documented in this encounter
--- OUTSIDE RECORDS SUMMARY | ~2019-06-26 | XMS | Encounter Summary ---
Demographics + + + | Address | [address] | | | [place] [address] | + + + | Home Phone [...] Team Providers + +------+ + | Care Glass Installer Technician Name | Role | Phone | [...] | | Shwetha Mailcode: CH8N | [place], [place] | | | | | [facility] | [address] | | | | | and [facility], | [phone] | | | | | [facility] | | | | | | Floor [place], [place] | | | | | | [address] | | | | | | [phone] | | | +--------+ + + + [...]
--- OUTSIDE RECORDS SUMMARY | ~2019-06-26 | XMS | Encounter Summary ---
Demographics + + + | Address | [address] | | | [place] [address] | + + + | Home Phone [...] Providers + +------+ + | Care Senior Technical Support Analyst Name | Role | Phone | + +------+ + | Clare Mendoza MD | PCP | | + +------+ + Encounter Details +--------+ + + + + | Date | Type | Department | Care Team | Description | +--------+ + + + + | 01/26/ | Telephone | Spine Center at | Rajinder Luis MD | | | 2017 | | [facility] [address] | [address] | | | | | Ave Mailcode: | [place], [place] | | | | | [facility] | [address] | | | | | and [place], | [phone] | | | | | [address] | | | | | | [place], [place] | | | | | | [address] | | | | | | [phone] | | | +--------+ + + + [...]
--- OUTSIDE RECORDS SUMMARY | ~2019-06-26 | XMS | Encounter Summary ---
Demographics + + + | Address | [address] | | | [place] [address] | + + + | Home Phone [...] Providers + +------+ + | Care Analysis Consultant Name | Role | Phone | [...] | | | | Mailcode: CH6A | [facility] [address] | | | | | [place], [place] | [place], [place] | | | | | [address] | [address] | | | | | [phone] | | | +--------+ + + + [...]
--- OUTSIDE RECORDS SUMMARY | ~2019-06-26 | XMS | Encounter Summary ---
Demographics + + + | Address | [address] | | | [place] [address] | + + + | Home Phone | | + + + | Preferred Language | Unknown | + + + | Marital Status | Single | + + + | Lutheran Affiliation | NON | + + + [...] + +------+ + | Care Professor Of Law Name | Role | Phone | + +------+ + | Hannah Sosa | PCP | | + +------+ + Reason for Visit + + + | Reason | Comments | + + + | Postoperative visit | | + + + Encounter Details +--------+---------+ + + + | Date | Type | Department | Care Team | Description | +--------+---------+ + + + | 10/23/ | Office | Spine Center at | Raegan Doss, | Thoracic spine tumor | | 2019 | Visit | [address] | [place] [address] | (Primary Dx) | | | | Ave Mailcode: | [place], [place] | | | | | [facility] | [address] | | | | | and [place], | [phone] | | | | | [address] | | | | | | [place], [place] | | | | | | [address] | | | | | | [phone] | | | +--------+---------+ + + + [...] + + + | Blood Pressure | 127/88 | 10/23/2018 9:41 AM | | | | | PDT | | + + + + + | Pulse | 88 | 10/23/2018 9:41 AM | | | | | PDT | | + + + + + | Temperature | 36.4 C (97.5 F) | 10/23/2018 9:41 AM | | | | | PDT [...] + + + + | Weight | 79.2 kg (174 lb 9.6 | 10/23/2018 9:41 AM | | | | oz) | PDT | | + + + + + | Height | 160 cm (5' 3") | 10/23/2018 9:41 AM | | | | | PDT | | + + + + + | Body Mass Index | 30.93 | 10/23/2018 9:41 AM | | | | | PDT [...] encounter Progress Notes Raegan Doss PA-C - 10/23/2018 9:30 AM PDTFormatting of this note might be different f rom the original. Matt Fagan is a 27 y.o. female who is seen in clinic today for a routine [address]-op visit. 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 Path confirmed low grade glioneuronal tumor. She discharged to [place] shortly after her surgery. Today the patient reports that her right leg has continued to remain a bit weak in her hip flexor (though better than pre-op). She did notice in [facility] that her right proximal thigh (d[place] n to her knee) now has lack of light touch sensation. She can feel deep pressure though. Thi s has not changed since she noticed it. She is back to walking with a walker because she not iced her right AFO was causing some pressure sores around her ankle so she is not wearing th is until her AFO can be fixed. She is only needing to straight cath about once a day and is not having any neurogenic bowel. She denies having had any wound concerns/issues and is look ing forward to getting her nylon sutures taken out. Ht 1.6 m (5' 3"), Wt 79.2 kg (174 lb 9.6 oz), BP 127/88, Pulse 88, Temperature 36.4 C (97 .5 F), Temperature source Oral, BMI 30.93 kg/(m^2). Facility age limit for growth percent gallito is 18 years. PE: Alert, oriented x3. Speech clear, fluent. Thoracic incision: flat, no erythema, dry, intact. Nylons in place. No LT sensation in left leg (baseline) or right thigh (right thigh does have deep pressure sensation intact), intact LT sensation at/below R knee. Motor: HF KF KE ADF APF EHL Left 5 5 5 5 5 5 Right 4 5 5 3* 5 5 *baseline Using a walker to help with ambulation. Impression: 27 y.o. female with low grade glioneuronal thoracic cord tumor s/p multiple re sections on 05/13/15, 09/09/15, 03/22/2016, 01/13/17 and 07/08/18. She recently developed worsenin g RLE weakness and numbness and BLE L>R muscle fasciculations and re-presented. She is now s /p re-do midline thoracic approach through prior T7-T9 laminectomy corridor for resection of intradural spinal cord tumor on 10/03/18. Improvement in RLE strength post-op. Path continue s to show low grade glioneuronal tumor. Wound healing well. Plan: -Patient discussed with Dr. Luis -Sutures removed -RTC at 1 year post-op with repeat thoracic MRI wwo, sooner if symptoms (worsening strength , sensation or neurogenic bowel/bladder) develop. [facility] [address] [place] [address] documented in this encounter Plan of Treatment Not on filedocumented as of this encounter Visit Diagnoses + + | Diagnosis | + + | Thoracic spine tumor - Primary Neoplasm of unspecified nature of bone, soft tissue, | | and skin | + + documented in this encounter
--- OUTSIDE RECORDS SUMMARY | ~2019-06-26 | XMS | Encounter Summary ---
Demographics + + + | Address | [address] | | | [place] [address] | + + + | Home Phone [...] + + + | Author | [facility] | + + + | Organization | [facility] | + + + | [...] Team Providers + +------+ + | Care Element Burner Name | Role | Phone | + +------+ + | Tiff Chapin | PCP | | + +------+ + Encounter Details +--------+------+ + + + | Date | Type | Department | Care Team | Description | +--------+------+ + + + | 07/12/ | Lab | Laboratory at [facility] | | Dysuria | | 2015 | | [address] | | | | | | [place], [place] | | | | | | [address] | | | | | | [phone] | | | +--------+------+ + + + [...] | + + + + + | [facility] | [address] | [place] [address] | | | SERVICES, CORE | JEAN [...] LABORATORY | [address] | [place] [address] | | | HORACIO, NINO | JEAN [...] LABORATORY | [address] | [place] [address] | | | SERVICES, NINO | [address] | | | + + + + + documented in this encounter Visit Diagnoses + + | Diagnosis | + + | Dysuria | + + documented in this encounter"
--- OUTSIDE RECORDS SUMMARY | ~2019-06-26 | XMS | Encounter Summary ---
Demographics + + + | Address | [address] | | | [place] [address] | + + + | Home Phone [...] Team Providers + +------+ + | Care Vulcan Crewmember Name | Role | Phone | + [...] | [address] | Marla [place], | | | | | Mailcode: [place] | [place] [address] | | | | | [place], [place] | | | | | | [address] | | | | | | [phone] | | | +--------+ + + + [...]
--- OUTSIDE RECORDS SUMMARY | ~2019-06-26 | XMS | Encounter Summary ---
Demographics + + + | Address | [address] | | | [place] [address] | + + + | Home Phone [...] + + + | Author | [facility] | + + + | Organization | [facility] | + + + | [...] Team Providers + +------+ + | Care Wire Bender Name | Role | Phone | + [...] from Patient | | 2016 | | [facility] [address] | PA-C [address] | | | | | Shwetha Mailcode: CH8N | [address] [place], [place] | | | | | [facility] | [address] | | | | | and Solomon, | [phone] | | | | | [facility] | | | | | | Floor [place], [place] | | | | | | [address] | | | | | | [phone] | | | +--------+ + + + [...]
--- OUTSIDE RECORDS SUMMARY | ~2019-06-26 | XMS | Encounter Summary ---
Demographics + + + | Address | [address] | | | [place] [address] | + + + | Home Phone | | + + + | Preferred Language | Unknown | + + + | Marital Status | Single | + + + | Nondenominational Affiliation | NON | + + + | Race | White | + + + | Ethnic Group | Not or | + + + Author + + + | Author | [facility] | + + + | Organization | [facility] | + + + | Address [...] Team Providers + +------+ + | Care Environmental Resource Specialist Name | Role | Phone | [...] LAMINECTOMIES FOR | | | | Rd [facility] Main | [place], [place] | RESE[place] OF [place], | | | | Hospital Admitting | [address] | INTRAOPERATIVE NEURO | | | | Desk Located on the | [phone] | MONITORING AND | | | | 9th floor | | ULTRASOUND, | | | | [place], [place] | | SPECIMENS TO | | | | [address] | | PATHOLOGY X 2 (KYMBERLY) | [...] Luis MD PCP: Princess Chowdary MD Service: [facility] Neurosurgery Diagnoses Principal Final Diagnosis: Thoracic intramedullary [...] by the attending providers, resident providers, and [facility]nursing staff. Post operatively, the patient was admitted [...] rehabilitation team and was seen by a Fuel Agent with recommendation for IPR (TRISTON) upon discharge. [...] at her post-op clinic visit or at [facility] by a provider and then cancel the [...] be on the 12th floor at the [facility] on the [facility] located at [address] [place] [address]. Please call [phone] if you have any questions or concerns before your appointment time. If you are still admitted to [facility] at the time of this appointment, the providers at [facility] can remove your wale. Please then make a 6 week post-op visit to see Raegan Doss PA-C in [facility] rosurgery clinic for routine follow up. You can call [phone] to make this appointment. PCP:Princess Chowdary MD [...] 01/28/17. If you are still admitted to [facility] when your wale need to come out, the providers at [facility] an remove your wale. Please then make a 6 week post-op visit to see Raegan Doss PA-C in Neurosurgery clinic for routine follow up. You can call [phone] to make this appointmen t. Special Instructions/Tests: N/A Condition On Discharge: Good Vital Signs at discharge as appropriate: BP: 109/55 (01/18/17 0451) Pulse: 64 (01/18/17 0451) Resp: 14 ( 0451) Weight: 78 kg (171 lb 15.3 oz) (01/15/17 0000) Discharge Patient To: Interhospital Transfer - [facility] Does patient have a planned readmission: No Discharge Summary Completed?: Yes. 01/18/2017 Discharging Provider: Raegan Doss PA-C Date Completed: 01/18/2017 Time Completed: 10:56 AM Discharging Attending: Rajinder Luis MD [facility] [address] [facility] [address] [address] [place] [address] documented in this encounter Medications at Time [...] patient and recommended a short stay at [facility] -Patient has required several straight caths [...] prevention, appreciate PT/OT involvement with recs for [facility]. ID/Heme: Afebrile since admission on 01/11. DVT ppx: SCDs while in bed, ppx lovenox 40mg inj. qHS. Dispo: Patient is medically stable for discharge. CM working on placement at [facility] for discharge today. Raegan Doss PA-C [facility] [address] [address] [address] dams, PHILIPPE Mena - 01/17/2017 10:28 AM [...] siatry consult placed for possible admission to [facility]. ID/Heme: Afebrile since admission on 01/11. DVT ppx: SCDs while in bed, ppx lovenox 40mg inj. qHS. Dispo: Pending physiatry consult. Appreciate CM involvement. [facility] [address] [address] [place] [address] dams, PHILIPPE Mena - 01/16/2017 8:38 AM [...] Will discuss with CM. Raegan Doss PA-C [facility] [address] [address] [place] [address] dams, PHILIPPE Mena - 01/15/2017 [...] catheter in until able to ambulate to [facility]. She also r equests going up on [...] and possible rehab needs. Raegan Doss PA-C [facility] [address] [address] [place] [address] Kaci Adorno M D - 01/14/2017 9:42 AM PDT . Neuroscience Intensive Care Unit Attending Progress Note Attending Pager #[phone] Documentation Date 01/13/17 1450 Day of Procedure [...] team members Provider Role Specialty Ipt Neurosurgery #[id number] Treatment Team Neurological Surgery Ipt Critical Care Nsicu #59591 Treatment Team -- Code Status Code Status [...] on counseling and coordination of care.Seen with PA/AUTO SUSPENSION AND STEERING MECHANIC Ryan. Please see their note for details. I reviewed the documented findings, all data and the recent imaging available. Date of Service: 01/14/2017 Kaci Mon MD Author:Kaci Mon MD [address] [id number] signed by Kaci Mon MD at 01/14/2017 [...] Aaron MD Neurosurgery, PGY-2 On-call resident pager [phone] 9:03 AM 01/14/2017 ogbrian, Nay Alvarenga, [facility] - 01/14/2017 7:30 AM PDT . Neuroscience Intensive Care Unit Team Progress Note NSICU ASSIGNED #[id number] Documentation Date 01/13/17 1450 Day of Procedure [...] team members Provider Role Specialty Ipt Neurosurgery #00434 Treatment Team Neurological Surgery Ipt Critical Care Nsicu #91324 Treatment Team -- Patient Lines/Drains/Airways Status Active [...] of Service: 01/14/2017 AIXA Sanders EPIC DEPARTMENT: [facility] ICU NEURO Place of Service:- Inpatient CSN: [id number] Suggested Modifier: None Suggested CPT: TO GRADE CHECKER AIXA Orozco Author:AIXA Sanders [address] [address] [place] [address]Cctiltyvvxyimf signed by AIXA Orozco at 01/14/2017 11:26 AM Stephie Rodríguez MD - 01/13/2017 9:35 PM PDTFormatting of this note might be differen t from the original. . Neuroscience Intensive Care Unit Attending Progress Note Attending Pager #[phone] Documentation Date 01/13/17 1450 Day of Procedure [...] team members Provider Role Specialty Ipt Neurosurgery #68390 Treatment Team Neurological Surgery Ipt Critical Care Nsicu #86727 Treatment Team -- Code Status Code Status [...] on counseling and coordination of care.Seen with PA/AUTO SUSPENSION AND STEERING MECHANIC Yaz Eztonya. Please see their note for details. I reviewed the documented findings, all data and the recent shmuel ging available. Date of Service: 01/13/2017 [facility] DEPARTMENT: [facility] ICU NEURO Place of Service:- Inpatient CSN: [id number] Suggested Modifier: GC - Resident Involved Suggested CPT: TO GRADE CHECKER Author:Stephie Anders MD [facility] [address] [place] [address]Eaqdfmzyskfgct signed by Stephie Anders MD at 01/13/2017 [...] Aaron MD Neurosurgery, PGY-2 On-call resident pager [phone] 8:22 PM 01/13/2017 Cesar Najera MD - [...] MD Neurosurgery Resident 11:07 PM, 01/12/2017 Pager #[phone] Kacey Elizabeth P A-C - 01/12/2017 8:42 [...] 01/14 for tumor resection. Kacey Pimentel PA-C [facility] [address] [place] [address] Chavo Robert MD - 01/11/2017 9:27 PM [...] midline No pronator drift Delt Bi Tri Business Project Manager HF KE KF DF PF Left 5 [...] now Chavo Penn MD Neurosurgery Resident Pager #[phone] signed by Chavo Penn MD at 01/11/2017 [...] [facility] | [address] | [place] [address] | | | SERVICES, CORE | PARK [...] | | | LABORATORY | | | TANZANIAN | | | SERVICES, | | | [...] + + | [facility] | [address] [facility] | [place] [address] | | | HORACIO, CORE | JEAN [...] | + + + + + | [facility] [employer] | [address] | [place] [address] | | | SERVICES, CORE | JEAN [...] | | | LABORATORY | | | TANZANIAN | | | SERVICES, | | | [...] [facility] | [address] | [place] [address] | | | SERVICES, CORE | PARK [...] LABORATORY | [address] | [place] [address] | | | SERVICES, CORE | PARK [...] | | | LABORATORY | | | TANZANIAN | | | SERVICES, | | | [...] | + + + + + | [facility] | [address] | [place] [address] | | | SERVICES, CORE | [address] | | | + + + + + PROCEDURE NOTE (01/15/2017 7:18 PM PDT)OPERATION RECORD (01/15/2017 8:11 AM PDT) + + | Procedure Note | + + | Rajinder Luis MD - 01/13/2017 8:53 PM PDT Date of Service: 01/13/2017 Attending | | Surgeon: Rajinder Luis MD Qa Automation Architect(s): Joby Thibodeaux | | . Preoperative Diagnosis: [...] dura was reapproximated and closed using 5-0 Milford-Thaddeus suture | | in a running fashion. [...] a supine position on a | | [facility]. She was then extubated by the anesthesia [...] 01/13/2017 19:31:27DT: | | 01/13/2017 20:53:09Job #: [id number] | + + CBC (HEMOGRAM) ONLY (01/15/2017 [...] LABORATORY | [address] | [place] [address] | | | HORACIO, NINO | JEAN [...] | | | LABORATORY | | | TANZANIAN | | | SERVICES, | | | [...] | + + + + + | [facility] | [address] [facility] | [place] [address] | | | NINO LEONARD | JEAN [...] LABORATORY | [address] | [place] [address] | | | SERVICES, CORE | JEAN [...] - [facility] | [address] | [place], [place] | | | JAVIER POINT OF CARE | [address] | [address] | | | TESTS | | | [...] + + + | [facility] | [address] | [place], [place] | | | JAVIER POINT OF CARE | [address] | [address] | | | TESTS | | | [...] LABORATORY | [address] | [place] [address] | | | NINO LEONARD | PARK [...] | + + + + + | [facility] | [address] | [place] [address] | | | SERVICES, CORE | JEAN [...] | | | LABORATORY | | | TANZANIAN | | | SERVICES, | | | [...] | + + + + + | [facility] | [address] | [place] [address] | | | SERVICES, CORE | JEAN [...] 97 | 60 - 99 mg/dL | [facility] - | | | GLUCOSE, | | [...] BRAMBILA | [address] | [place], [place] | | | ZELALEM HERRERA OF [facility] | [address] | [address] | | | TESTS | | | [...] | | | POC | | | ZELALME HERRERA | | | | | | [...] BRAMBILA | [address] | [place], [place] | | | JAVIER POINT OF CARE | [address] | [address] | | | TESTS | | | [...] | | POC | | | ZELALEM EHRRERA | | | | | | OF [...] PATTY | [address] | [place], [place] | | | JAVIER POINT OF CARE | [facility] | [address] | | | TESTS | | | [...] + + + + | PRODUCT | [id number] | | [facility] | | | UNIT [...] + + + + | EXPIRATION | [id number] | | [facility] | | | DATE [...] + + + + | BLOOD | [id number] | | [facility] | | | PRODUCT [...] LABORATORY | [address] | [place] [address] | | | SERVICES, | [address] [...] + + + + | PRODUCT | [id number] | | [facility] | | | UNIT [...] + + + + | EXPIRATION | [id number] | | [facility] | | | DATE [...] + + + + | BLOOD | [id number] | | [facility] | | | PRODUCT [...] | + + + + + | [facility] | [address] | [place] [address] | | | SERVICES, | [address] [...] + | MOISE - PATTY | [address] [facility] [address] | [place], [place] | | | JAVIER POINT OF NURIA | [address] | [address] | | | TESTS | | | [...] | + + + + + | [facility] | [address] | [place] [address] | | | SERVICES, SPECIAL | JEAN [...] | + + + + + | [facility] | [address] | [place] [address] | | | SERVICES, [facility] | [address] | | | [...] | | | Service: IP Intra Op [id number] INTRAOPERATIVE NEURO | | | MONITORING IOM: [...] | | Clinical Neurophysiology Department Suggested CPT: 93729 - IOM | | | Remote x 3 hr(s) 78006 - Short Latency EP's Upper AND Lower | | | extremities 09735 - Central Motor EP's Upper AND Lower extremities | | | 19117 - Neuromuscular Junction Test Suggested Diagnosis: D43.4 [...] original | | | | | | [id number]) with cells | | | | | [...] | | | | cs determined by [facility] | | | | | | laboratories. [...] medical | | | | | | record#[id number]. | | | | | | A: [...] | + + + + + | [facility] DEPARTMENT | [address] | [place] [address] | | | PATHOLOGY | [address] [...] | + + + + + | [facility] | [address] [facility] | [place] [address] | | | SERVICES, SPECIAL | PARK [...] | + + + + + | [facility] | [address] | [place] [address] | | | SERVICES, CORE | JEAN [...] LABORATORY | [address] | [place] [address] | | | SERVICES, | [address] [...] LABORATORY | [address] | [place] [address] | | | SERVICES, | [address] [...] LABORATORY | [address] | [place] [address] | | | SERVICES, CORE | PARK [...] | + + + + + | [facility] | [address] | [place] [address] | | | SERVICES, CORE | JEAN [...] LABORATORY | [address] | [place] [address] | | | SERVICES, CORE | PARK [...] | | | LABORATORY | | | TANZANIAN | | | SERVICES, | | | [...] the MDRD equation recommended by the | [facility] | | National Kidney Disease Education Program. Estimated GFR | LABORATORY | | Interpretive Information: <60 mL/min/1.73 sq m | [facility], CORE | | Chronic Kidney Disease <15 [...] | + + + + + | [facility] | [address] | [place] [address] | | | SERVICES, CORE | PARK [...] LABORATORY | [address] | [place] [address] | | | SERVICES, NINO | JEAN [...] | + + + + + | [facility] | [address] | [place] [address] | | | NINO LEONARD | JEAN [...] + | [facility] - | [address] | [place] [address] | | | [place] | | | [...] | + + + + + | [facility] | [address] | [place] [address] | | | NINO LEONARD | JEAN [...] | [facility] | | | GRAVITY | Ora performed by | | LABORATORY | | [...] LABORATORY | [address] | [place] [address] | | | SERVICES, CORE | JEAN [...] LABORATORY | [address] | [place] [address] | | | SERVICES, CORE | PARK [...] [facility] | [address] | [place] [address] | | | SERVICES, CORE | JEAN [...] At | + + + | [id number] This patient has registered at the | [facility] | | [facility] Emergency Department For more | MEDICAL | | information visit: | TECH[employer]OLOGIES | | [email or web address] | | | [email or web address] ED Care Guidelines There are currently no ED Care Guidelines | | | in LYNN for this patient. Please check your facility's medical | | | records system. Recent Emergency Department Visit Summary Admit | | | Date Facility City State Type Major Type Diagnoses or Chief Complaint | | | Jan 11, 2017 [facility] [place] Emergency | | | Emergency 10,800. transfer Jan 11, 2017 [facility] | | | Community . [place]. [place] Emergency Emergency Recent | | | Inpatient Visit Summary No recorded inpatient visits. E.D. Visit | | | Count (12 mo.) Facility Visits [facility] | | | [place] 2 [facility] [address] [place] [address] | | | [facility] 1 Total 6 Note: Visits indicate total | | | known visits. Care Providers Provider PRC Type Phone Fax | | | Service Dates [facility] Primary Care | | | Current PRINCESS [...] for | | | additional information. 2017 [employer]. - | | | [place], [place] - [email or web address] | | + + + + + | Procedure Note | + + | Service Account, Rtf Results Inbound - 01/11/2017 8:40 AM PDT Formatting of this | | note might be different from the original.LYNN?NOTIFICATION?01/11/2017 08:38?ANAID, | | QIANA Parsons? patient has registered at the [facility] | | [place] Emergency Department For more information visit: | | [email or web address] ED Care | | GuidelinesThere are currently no ED Care Guidelines in LYNN for this patient. Please | | check your facility's medical records system.Recent Emergency Department Visit | | SummaryAdmit Date Facility City State Type Major Type Diagnoses or Chief Complaint Jan | | 2016 [facility] [place] Emergency Emergency 10,800. | | transfer Jan 11, 2017 [facility] [place]. [place] Emergency Emergency Recent | | Inpatient Visit SummaryNo recorded inpatient visits. E.D. Visit Count (12 mo.)Facility | | Visits [facility] 2 [facility] 1 [facility] | | [place] 2 [facility] 1 Total 6 Note: Visits indicate total known | | visits. Care ProvidersProvider PRC Type Phone Fax Service Dates [facility] | | [facility] Primary Care Current PRINCESS MARIBELL-BELLI Primary Care Current | | [facility] Primary Care Oct 16, 2016 - | [...] additional information. ? 2017 [employer] | | [employer] - [facility] [email or web address] - [email or web address] | |[facility] 2 | |[facility] 1 | |[facility] 2 | |[facility] 1 | |Total 6 | |Note: Visits indicate total known visits. | | | |Care Providers | |Provider PRC Type Phone Fax Service Dates | |[facility] Primary Care Current | |PRINCESS [facility]IB[facility]LL[facility] Primary Care Current | |[facility] Primary Care Oct 16, 2016 - Current | | | |The above information is provided for the sole purpose of patient treatment. Use of this in formation beyond the terms of Data Sharing Memorandum of Understanding and License Agreement is prohibited. In | |certain cases not all visits may be represented. Consult the aforementioned facilities for additional information. | |? 2017 [employer] - [place], [place] - [email or web address] | + + + + + + + | Performing | Address | City/State/Zipcode | Phone Number | | Organization | | | | + + + + + | [facility] | [address], | [place], [place] | [phone] | | [employer] | [address] | [address] | | + + + + + [...]
--- OUTSIDE RECORDS SUMMARY | ~2019-06-26 | XMS | Encounter Summary ---
Demographics + + + | Address | [address] | | | [place] [address] | + + + | Home Phone [...] + + + | Author | [facility] | + + + | Organization | [facility] | + + + [...] Team Providers + +------+ + | Care Proofreader Name | Role | Phone | + [...] | | Thoracic | Raegan Nieves, | [facility] [address] | | | | | spine tumor | PA-C [address] | | | | | Procedures | [address] | Mailcode: | | | | | MRI SPINE | [facility] | [address] | | | | | THORACIC WWO | [place] | for Health | | | | | CONTRAST | [address] | and Healing, | | | | | [place] MRI, | Phone: | Building 1, | | | | | DORSAL SPINE | [phone] | 3rd Floor | | | | | COMBO | Fax: | [place], [place] | | | | | | [phone] | [address] | | | | | | | Phone: | | | | | | | [phone] | | | | | | | Fax: | | | | | | | [phone] | +--------+--------+ + + + + Occupational Therapy (Routine) +--------+--------+ + + + + | Status | Reason | Specialty | Diagnoses / | Referred By | Referred To | | | | | Procedures | Contact | Contact | +--------+--------+ + + + + | Closed | | | Diagnoses | DeDeaux, | | | | | | Thoracic | Kacey H, | | | | | | spine tumor | PA-C [address] | | | | | | Procedures | [address] | | | | | | | [address] | | | | | | OCCUPATIONAL | Rd | | | | | | THERAPY | [place], [place] | | | | | | REFERRAL | [address] | | +--------+--------+ + + + + Physical Therapy (Routine) +--------+--------+ + + + + | Status | Reason | Specialty | Diagnoses / | Referred By | Referred To | | | | | Procedures | Contact | Contact | +--------+--------+ + + + + | Closed | | | Diagnoses | DeDeaux, | | | | | | Thoracic | Kacey H, | | | | | | spine tumor | PA-C [address] | | | | | | Procedures | [address] | | | | | | PHYSICAL | [address] | | | | | | THERAPY | Rd | | | | | | REFERRAL | [place], [place] | | | | | | | [address] | | +--------+--------+ + + + + Reason for Visit +--------+ + | [...] | +--------+ + + + + | 03/21/ | Hospital | [facility] [address] | Rajinder Luis MD | | | 2016 - | Encounter | [address] | [address] | | | | | [id number] [facility] | [place], [place] | | | 03/28/ | | HOSPITAL [place], | [address] | | | 2016 | | [place] [address] | [phone] | | | | | [phone] | | | +--------+ + + + [...] Luis MD PCP: Clare Chowdary MD Service: [facility] Neurosurgery Diagnoses Principal Final Diagnosis: 1. Residual [...] resections (05/2015, 09/2015). The [facility] for a right-sided T8 and [...] [facility], and e patient and/or family members [...] THIS IF YOU ARE STILL ADMITTED AT [facility]. This [facility] be on the 8th floor at the [facility] on the [facility] located at [address] [place] [place] [facility]. Polo roberts call [phone] if you have any questions or concerns before your appointment time. 2) You will need to call and schedule a repeat thoracic MRI in one month (around 04/21/16) to evaluate for possible radiation needs. Destination: Destination: Inpatient Rehab Condition on Discharge Good Discharge POL completed No Discharge Follow Up - Facility [...] Weight: 86.2 kg (190 lb 0.6 oz) (03/28/16 0643) Discharge Patient To: Inpatient Rehab - [facility] Does patient have a planned readmission: No Discharge Summary Completed?: Yes. 03/28/2016 Discharging Provider: Raegan Doss PA-C Date Completed: 03/28/2016 Time Completed: 7:46 AM Discharging Attending: Rajinder Luis MD [facility] [address] [address] [address] documented in this encounter Progress Notes Raegan Doss PA-C - 03/28/2016 7:46 AM PDTFormatting of this note might be different f rom the original. Neurosurgery Progress Note Hospital Day:7 Author; Raegan Doss PA-C Attending Physician: Rajinder Luis MD Interval Hx: No acute events overnight. Pt states she is looking forward to going to [facility] today. Pt state s her BLE sensation [...] % Intake/Output Summary (Last 24 hours) at 03/28/16 07 Last data filed at 03/28/16428 Gross per 24 hour Intake 1700 ml Output 1900 ml Net -200 ml Exam: Alert, oriented x3. Speech clear, fluent. Gaze conjugate. Face symmetric. Thoracic incision: moderate swelling under skin, no erythema, dry. Cleveland in place. Sensation: LT sensation at pre-op [...] on 04/05. This can be completed at [facility] or at the [facility] follow up visit. CV: HD stable. Pulm: [...] bed. On ppx Lovenox qHS. Dispo: To [facility] today at 11am. Will see patient back in clinic in 1 month with a repeat thora cic MRI. Raegan Doss PA-C [facility] [address] [address] [address] dams, PHILIPPE Mena - 03/27/2016 4:51 PM [...] ppx Lovenox qHS. [facility] Raegan Doss PA-C [facility] [address] [address] [place] [address] Sumeet Malone MD - 03/26/2016 9:23 AM PDT NEUROSURGERY PROGRESS NOTE 03/26/2016 Hospital Day #: 5 Attending: Rajinder Luis MD Interval Events: BENJAMIN O/N. C/o 5 back pain without radiation. Ate dinner. Daniels [...] Consult to physiatry with likely placement at [facility]. PT recs IPR. Oncology: Pathology shows recurrent/residual [...] Dispo: Pending medical course, likely IPR at [facility]. Appreciate CM following. Sumeet Ross MD Neurological [...] Consult to physiatry with likely placement at [facility]. PT recs IPR. Oncology: Pathology shows recurrent/residual [...] Dispo: Pending medical course, likely IPR at [facility]. Appreciate CM following. Sumeet Ross MD Neurological Surgery PGY1 acey Pimentel PA-C - 03/24/2016 11:18 AM PDTFormatting of this note might be different from the [facility] l. Neurosurgery Progress Note Hospital Day:3 Author; [...] sensation intact in all 4 extremities Motor: Folding Machine Setter Bicep Tricep Delt R 5 5 5 [...] to evaluate patient for possible admission to [facility]. Oncology: Pathology in process. 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 Plan to repeat MRI in one month and evaluation for possible radiation needs at that time. HEENT/Derm: Menthol drops prn mouth soreness. Routine wound care to spinal incision - pleas e leave open to air. Okay to wash on 03/25. Cleveland will need to be removed at 2 [...] Dispo: Pending medical course. Kacey Pimentel PA-C [facility] [address] [address] [place] [address] dams, Raegan Nieves PA-C - 03/23/2016 7:58 AM PDT Neurosurgery [...] O2 Delivery Device: None (room air) (03/23/16 8088) 24 Hour Vital Min/Max: Systolic (24hrs), Av [...] Intact in BUE. Motor: Full strength throughout 11/10 - B, T, director of compliance, HF, KE, APF, ADF Daniels catheter in [...] to evaluate patient for possible admission to [facility]. HEENT/Derm: Menthol drops prn mouth soreness. Routine [...] Dispo: Pending medical course. Raegan Doss PA-C [facility] [address] [address] [address] Yokasta Pizano MD - 03/22/2016 5:30 PM [...] consult per patient's request Yokasta Randall PGY3 [id number] Cesar Najera MD - 03/22/20 16 3:05 [...] in this encounte r Plan of Treatment + +---------+--------+ + + [...] | + + + + + | [facility] | [address] | [place] [address] | | | SERVICES, CORE | JEAN [...] | | | LABORATORY | | | LUXEMBOURGER | | | SERVICES, | | | [...] [facility] | [address] | [place] [address] | | | SERVICES, NINO | JEAN [...] | + + + + + | [facility] | [address] | [place] [address] | | | SERVICES, CORE | JEAN [...] | | | LABORATORY | | | LUXEMBOURGER | | | SERVICES, | | | [...] | + + + + + | [facility] | [address] | [place] [address] | | | NINO LEONARD | JEAN [...] [facility] | [address] | [place], [place] | | | JAVIER POINT OF CARE | [facility] | [address] | | | TESTS | | | [...] | + + + + + | [facility] | [address] | [place] [address] | | | SERVICES, CORE | PARK [...] | | | LABORATORY | | | LUXEMBOURGER | | | SERVICES, | | | [...] | + + + + + | [facility] | [address] | [place] [address] | | | SERVICES, CORE | PARK [...] [facility] | [address] | [place], [place] | | | ZELALEM HERRERA OF CARE | [address] | [address] | | | TESTS | | | [...] (H) | 60 - 99 mg/dL | [facility] - | | | GLUCOSE, | [...] + + + + | [facility] | [address] | [place], [place] | | | ZELALEM HERRERA OF CARE | [address] | [address] | | | TESTS | | | [...] (H) | 60 - 99 mg/dL | [facility] - | | | GLUCOSE, | [...] + | [facility] | [address] | [place], [place] | | | ZELALEM HERRERA OF CARE | [address] | [address] | | | TESTS | | | [...] [facility] | [address] | [place], [place] | | | ZELALEM HERRERA OF CARE | [address] | [address] | | | TESTS | | | | + + + + + OPERATION RECORD (03/24/2016 9:53 AM PDT) + + | Transcriptions | + + | Rajinder Luis MD - 03/22/2016 4:04 PM PDT Date of Service: 03/22/2016 Attending | | Surgeon: Rajinder Luis MD Steam Setter(s): Thomas Gorman, | | MNacho., Ph.D. Preoperative [...] was closed primarily using a running 5-0 Mizpah-Thaddeus suture in a locking fashion. At | | the lowest incision, the dural tacking sutures were crossed. The dura was also closed | | in primary fashion using a running 5-0 Mizpah-Thaddeus suture in locking fashion. These dural | [...] 03/22/2016 12:20:45DT: 03/22/2016 | | 16:04:07Job #: [id number] | + + CBC (HEMOGRAM) ONLY (03/24/2016 [...] LABORATORY | [address] | [place] [address] | | | SERVICES, CORE | PARK [...] | | | LABORATORY | | | LUXEMBOURGER | | | SERVICES, | | | [...] | + + + + + | [facility] | [address] | [place] [address] | | | NINO LEONARD | JEAN [...] | + + + + + | [facility] | [address] | [place], [place] | | | ZELALEM HERRERA OF NURIA | [facility] | [address] | | | TESTS | | | [...] (H) | 60 - 99 mg/dL | [facility] - | | | GLUCOSE, | [...] [facility] | [address] | [place], [place] | | | JAVIER POINT OF CARE | [address] | [address] | | | TESTS | | | [...] + | [facility] | [address] | [place], [place] | | | ZELALEM HERRERA OF CARE | [address] | [address] | | | TESTS | | | [...] [facility] | [address] | [place], [place] | | | ZELALEM HERRERA OF [facility] | [facility] | [address] | | | TESTS | | | [...] LABORATORY | [address] | [place] [address] | | | NINO LEONARD | JEAN [...] LABORATORY | [address] | [place] [address] | | | SERVICES, CORE | [address] | | | + + + + + FIBRINOGEN (03/23/2016 5:50 AM PDT) + +-------+ + + + | Component | Value | Ref Range | Performed | Pathologist | | | | | At | Signature | + +-------+ + + + | FIBRINOGEN | 367 | 200 - 450 mg/dL | [facility] | | | LEVEL | | | [...] | + + + + + | [facility] | [address] | [place] [address] | | | SERVICES, CORE | JEAN [...] + + | [facility] | [address] | [place] [address] | | | SERVICES, CORE | PARK [...] + + | [facility] | [address] | [place] [address] | | | SERVICES, CORE | PARK [...] | | | LABORATORY | | | LUXEMBOURGER | | | SERVICES, | | | [...] the MDRD equation recommended by the | [facility] | | National Kidney Disease Education [...] | + + + + + | [facility] | [address] | [place] [address] | | | HORACIO, NINO | JEAN [...] (H) | 60 - 99 mg/dL | [facility] - | | | GLUCOSE, | [...] | [facility] | [address] | [place], [place] | | | ZELALEM HERRERA OF NURIA | [address] | [address] | | | TESTS | | | [...] BR[facility] | [address] | [place], [place] | | | ZELALEM HERRERA OF NURIA | [facility] | [address] | | | TESTS | | | [...] [facility] | [address] | [place], [place] | | | JAVIER POINT OF [facility] | [address] | [address] | | | TESTS | | | [...] [facility] | [address] | [place], [place] | | | ZELALEM HERRERA OF CARE | [address] | [address] | | | TESTS | | | [...] [facility] | [address] | [place], [place] | | | JAVIER POINT OF CARE | [address] | [address] | | | TESTS | | | [...] [facility] | [address] | [place], [place] | | | JAVIER POINT OF CARE | [address] | [address] | | | TESTS | | | | + + + + + INTRAOPERATIVE NEURO MONITORING (03/22/2016) + + + | Narrative | Performed At | + + + | Patient Name: Matt Fagan Date of : 1990 | | | Date of Test: 03/22/2016 Place of | | | Service: IP Intra Op (80) [id number] INTRAOPERATIVE NEURO | | | MONITORING History: [...] Clinical Neurophysiology | | | Suggested CPT: 92833 - IOM Remote x 3 hr(s) 55563 - Short | | | Latency EP's Upper AND Lower extremities 30749 - Central Motor EP's | | | Upper AND Lower extremities 81112 - Neuromuscular Junction Test | | | [...] prior | | | | | | resections([id number] | | | | | | and [id number]) with | | | | | | elongated to ovoid cells | | | | | | in a focallymyxoid | | | | | | stroma. No high grade | | | | | | features are seen. | | | | | | Case seen by:Bernadette Hogan, | | | | | | M.D., Ph.D. / Pathology | | | | | | Nirmala Bolton, | | | | | | D.O. / Neuropathology | | | | | | Aziza Fairbanks, | | | | | | MNacho., Ph.D. / | | | | | [...] | | | | [facility]. Now presenting | | | | [...] | | | | | | record #[id number], and | | | | | | [...] | | | | | tasneem Signed 03/24/2016 | | | | | [...] | + + + + + | [facility] | [address] | [place] [address] | | | PATHOLOGY | [address] [...] | | AIRPORT - | | | [place] | + + + + + + + + | Performing | Address | City/State/Zipcode | Phone Number | | Organization | | | | + + + + + | [facility] | [address] | [place] [address] | | | [place] | | | | + + + [...] | + + + + + | [facility] | [address] | [place] [address] | | | SERVICES, CORE | PARK [...] | + + + + + | [facility] | [address] | [place] [address] | | | SERVICES, NINO | JEAN [...] | + + + + + | [facility] | [address] | [place] [address] | | | SERVICES, CORE | PARK [...] LABORATORY | [address] | [place] [address] | | | SERVICES, CORE | PARK [...] LABORATORY | [address] | [place] [address] | | | SERVICES, | [address] [...] LABORATORY | [address] | [place] [address] | | | SERVICES, | [address] [...] 386 | 200 - 450 mg/dL | [facility] [...] + + | [facility] | [address] | [place] [address] | | | SERVICES, CORE | PARK [...] LABORATORY | [address] | [place] [address] | | | SERVICES, CORE | PARK [...] | + + + + + | [facility] | [address] | [place] [address] | | | SERVICES, CORE | [address] | | | + + + + + MAGNESIUM, PLASMA (03/21/2016 10:52 PM PDT) + +-------+ + + + | Component | Value | Ref Range | Performed | Pathologist | | | | | At | Signature | + +-------+ + + + | MAGNESIUM,P | 2.0 | 1.8 - 2.5 mg/dL | MOISE [...] | + + + + + | [facility] | [address] | [place] [address] | | | SERVICES, CORE | JEAN [...] | | | LABORATORY | | | LUXEMBOURGER | | | SERVICES, | | | [...] the MDRD equation recommended by the | [facility] | | National Kidney Disease Education [...] | + + + + + | [facility] | [address] | [place] [address] | | | NINO LEONARD | JEAN [...] 77 | 60 - 99 mg/dL | [facility] - | | | GLUCOSE, | [...] BR[facility] | [address] | [place], [place] | | | ZELALEM HERRERA OF NURIA | [address] | [address] | | | TESTS | | | [...] + + + + | PRODUCT | [id number] | | [facility] | | | UNIT [...] + + + + | EXPIRATION | [id number] | | [facility] | | | DATE [...] + + + + | BLOOD | [id number] | | [facility] | | | PRODUCT [...] + + + + + | [facility] | [address] | [place] [address] | | | PATHOLOGY | [address] [...] + + + + | PRODUCT | [id number] | | [facility] | | | UNIT [...] + + + + | EXPIRATION | [id number] | | [facility] | | | DATE [...] + + + + | BLOOD | [id number] | | [facility] | | | PRODUCT [...] | + + + + + | [facility] | [address] | [place] [address] | | | PATHOLOGY | [address] | | | + + + + + ED INFORMATION EXCHANGE (03/21/2016 6:36 PM PDT) + + + + + + | Component | Value | Ref Range | Performed | Pathologist | | | | | At | Signature | + + + + + + | [facility] | [id number] | | [facility] | | | | [id number] | | MEDICAL | | | | | | TECHNOLOGIE | | | | | | S | | + + + + + + + + | Specimen | + + | | + + + + + | Narrative | Performed At | + + + | [facility] has no Care Guidelines for this patient. ED/C VISIT | [facility] | | TRACKING (3 MO.) Visit Date Location | MEDICAL | | City ST Type Dx / | TECHNOLOGIES | | Complaint -------- | | | ------- ---- | | | 03/21/2016 18:35 [facility] and | | | [facility] [place] Emergency [address]. 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 | | | [place] Emergency NO FEELING IN LOWER LIMBS | | | INPATIENT VISIT TRACKING (1 MO.) Visit Date | | | LocationCity ST TypeDx / Complaint | | | ED | | | VISIT COUNT (1 YR.) Visits Location ------ --------- 2 | | | [facility] | | | [facility] Total Note: Visits indicate total | | | known visits. | | | | | | --- CARE PROVIDERS Name | | | Phone Type | | | Service Dates ---- | | | ----- ---- | | | [facility] | | | [phone] Primary Care Unknown - Current | | | [facility] Unknown | | | Primary Care Unknown - Current [facility] | | | [facility] Unknown Primary Care | | | Unknown - Current TIAN DE JESUS | | | [phone] Primary Care 01/26/2016 - | | | Current [facility] | | | [phone] Primary Care 01/24/2016 - Current | | + + + + + + + + | Performing | Address | City/State/Zipcode | Phone Number | | Organization | | | | + + + + + | [facility] | [address], | [place], [place] | [phone] | | TECHNOLOGIES | [address] | [address] | | + + + + + [...] of nervous system | + + | At risk for venous thromboembolism | + + | At risk for constipation Other specified conditions influencing health status | + + documented in this encounter Administered Medications + +--------+ +--------+------+------+ | Medication Order | MAR | Action | Dose | Rate | Site | | | Action | Date | | | | + +--------+ +--------+------+------+ | acetaminophen (TYLENOL) tablet | Given | 03/28/20 | 650 mg | | | | 325-650 mg 325-650 mg, oral, | | 16 10:07 | | | | | EVERY 6 HOURS NEEDED, Starting | | AM PDT | | | | | 03/21/16 at 2037, Until Tue | | | | | | | 03/28/16 at 1729, mild pain, | | | | | | | headache, fever, multimodal pain | | | | | | | control | | | | | | + +--------+ +--------+------+------+ +-------+ +--------+---+---+ | Given | 03/28/20 | 325 mg | | | | | 16 12:31 | | | | | | AM PDT | | | | +-------+ +--------+---+---+ | Given | 03/27/20 | 650 mg | | | | | 16 4:48 | | | | | | PM PDT | | | | +-------+ +--------+---+---+ +---+---+ | | | +---+---+ + +-------+ +-------+---+---+ | baclofen (LIORESAL) tablet 10 | Given | 03/22/20 | 10 mg | | | | mg 10 mg, oral, FOUR TIMES | | 16 6:00 | | | | | DAILY, First dose on Sun03/21/16 | | PM PDT | | | | | at 2230, Until Discontinued | | | | | | + +-------+ +-------+---+---+ +-------+ +-------+---+---+ | Given | 03/21/20 | 10 mg | | | | | 16 10:04 | | | | | | PM PDT | | | | +-------+ +-------+---+---+ +---+---+ | | | +---+---+ + +-------+ +-------+---+---+ | baclofen (LIORESAL) tablet 10 | Given | 03/28/20 | 10 mg | | | | mg 10 mg, oral, AT BEDTIME | | 16 4:34 | | | | | NEEDED, Starting 03/22/16 at | | AM PDT | | | | | 1900, Until Sun03/28/16 at 1729, | | | | | | | spasms | | | | | | + +-------+ +-------+---+---+ +-------+ +-------+---+---+ | Given | 03/23/20 | 10 mg | | | | | 16 10:58 | | | | | | PM PDT | | | | +-------+ +-------+---+---+ | Given | 03/22/20 | 10 mg | | | | | 16 11:54 | | | | | | PM PDT | | | | +-------+ +-------+---+---+ +---+---+ | | | +---+---+ + +-------+ +------+---+---+ | bisacodyl EC (DULCOLAX) tablet | Given | 03/28/20 | 5 mg | | | | 5 mg 5 mg, oral, DAILY | | 16 9:35 | | | | | NEEDED, Starting 03/26/16 at | | AM PDT | | | | | 0835, Until Sun03/28/16 at 1729, | | | | | | | constipation, 2nd line | | | | | | + +-------+ +------+---+---+ +-------+ +------+---+---+ | Given | 03/27/20 | 5 mg | | | | | 16 11:03 | | | | | | AM PDT | | | | +-------+ +------+---+---+ | Given | 03/26/20 | 5 mg | | | | | 16 10:28 | | | | | | AM PDT | | | | +-------+ +------+---+---+ +---+---+ | | | +---+---+ + +---------+ +-----+---+---+ | ceFAZolin IV 2 grams in NS | New Bag | 03/23/20 | 2 g | | | | (RTU) 2 g, intravenous, EVERY 8 | | 16 9:01 | | | | | HOURS, 3 doses, First dose on Wed | | AM PDT | | | | | 03/22/16 at 1200, Last dose on | | | | | | | Miriam 03/23/16 at 0900 | | | | | | + +---------+ +-----+---+---+ +---------+ +-----+---+---+ | New Bag | 03/23/20 | 2 g | | | | | 16 2:11 | | | | | | AM PDT | | | | +---------+ +-----+---+---+ | New Bag | 03/22/20 | 2 g | | | | | 16 6:00 | | | | | | PM PDT | | | | +---------+ +-----+---+---+ +---+---+ | | | +---+---+ + +-------+ +------+---+---+ | dexamethasone (DECADRON) tablet | Given | 03/23/20 | 4 mg | | | | 4 mg 4 mg, oral, EVERY 6 HOURS, | | 16 6:10 | | | | | First dose on Sun03/21/16 at | | AM PDT | | | | | 2045, Until Discontinued | | | | | | + +-------+ +------+---+---+ +-------+ +------+---+---+ | Given | 03/22/20 | 4 mg | | | | | 16 11:54 | | | | | | PM PDT | | | | +-------+ +------+---+---+ | Given | 03/22/20 | 4 mg | | | | | 16 6:00 | | | | | | PM PDT | | | | +-------+ +------+---+---+ +---+---+ | | | +---+---+ + +-------+ +------+---+---+ | dexamethasone (DECADRON) tablet | Given | 03/24/20 | 4 mg | | | | 4 mg 4 mg, oral, EVERY 12 | | 16 6:50 | | | | | HOURS, 2 doses, First dose (after | | PM PDT | | | | | last modification) on Fri | | | | | | | 03/24/16 at 0600, Last dose on Fri | | | | | | | 03/24/16 at 1800 | | | | | | + +-------+ +------+---+---+ +-------+ +------+---+---+ | Given | 03/24/20 | 4 mg | | | | | 16 7:05 | | | | | | AM PDT | | | | +-------+ +------+---+---+ +---+---+ | | | +---+---+ + +-------+ +------+---+---+ | dexamethasone (DECADRON) tablet | Given | 03/23/20 | 4 mg | | | | 4 mg 4 mg, oral, EVERY 8 HOURS, | | 16 10:17 | | | | | 2 doses, First dose (after last | | PM PDT | | | | | modification) on [facility] 03/23/16 at | | | | | | | 1400, Last dose on [facility] 03/23/16 at | | | | | | | 2200 | | | | | | + +-------+ +------+---+---+ +-------+ +------+---+---+ | Given | 03/23/20 | 4 mg | | | | | 16 1:47 | | | | | | PM PDT | | | | +-------+ +------+---+---+ +---+---+ | | | +---+---+ + +-------+ +------+---+---+ | dexamethasone (DECADRON) tablet | Given | 03/25/20 | 4 mg | | | | 4 mg 4 mg, oral, DAILY, 1 dose, | | 16 5:34 | | | | | First dose (after last | | AM PDT | | | | | modification) on [facility] 03/25/16 at | | | | | | | 0600 | | | | | | + +-------+ +------+---+---+ +---+---+ | | | +---+---+ + +-------+ +-------+---+---+ | diphenhydrAMINE (BENADRYL) | Given | 03/26/20 | 25 mg | | | | capsule 25 mg 25 mg, oral, EVERY | | 16 7:27 | | | | | 6 HOURS NEEDED, Starting Miriam | | PM PDT | | | | | 03/23/16 at 1320, Until Tue | | | | | | | 03/28/16 at 1729, itching | | | | | | + +-------+ +-------+---+---+ +-------+ +-------+---+---+ | Given | 03/26/20 | 25 mg | | | | | 16 1:12 | | | | | | AM PDT | | | | +-------+ +-------+---+---+ | Given | 03/24/20 | 25 mg | | | | | 16 10:56 | | | | | | PM PDT | | | | +-------+ +-------+---+---+ +---+---+ | | | +---+---+ + +-------+ +-------+---+---------+ | enoxaparin (LOVENOX) injection | Given | 03/27/20 | 40 mg | | Abdomen | | 40 mg 40 mg, subcutaneous, EVERY | | 16 8:44 | | | | | EVENING, First dose on Miriam | | PM PDT | | | | | 03/23/16 at 2100, Until | | | | | | | Discontinued | | | | | | + +-------+ +-------+---+---------+ +-------+ +-------+---+---------+ | Given | 03/26/20 | 40 mg | | Abdomen | | | 16 9:01 | | | | | | PM PDT | | | | +-------+ +-------+---+---------+ | Given | 03/25/20 | 40 mg | | Abdomen | | | 16 9:45 | | | | | | PM PDT | | | | +-------+ +-------+---+---------+ +---+---+ | | | +---+---+ + +---------+ +--------+---+---+ | fentaNYL citrate (PF) | New Bag | 03/22/20 | 25 mcg | | | | (SUBLIMAZE) injection 25 mcg 25 | | 16 2:01 | | | | | mcg, intravenous, POSTPROCEDURE | | PM PDT | | | | | PRN, 8 doses, Starting Wed | | | | | | | 03/22/16 at 1007, Until Wed | | | | | | | 03/22/16 at 1526, severe pain | | | | | | | while in Phase I Recovery | | | | | | + +---------+ +--------+---+---+ +---------+ +--------+---+---+ | New Bag | 03/22/20 | 25 mcg | | | | | 16 1:58 | | | | | | PM PDT | | | | +---------+ +--------+---+---+ + +---+ | | | + +---+ | fentaNYL citrate (PF) | | | (SUBLIMAZE) injection 1 dose, | | | Starting 03/22/16 at 1354, | | | Until Sun03/22/16 at 1358 | | + +---+ | | | + +---+ + +-------+ +--------+---+---+ | gabapentin (NEURONTIN) capsule | Given | 03/22/20 | 900 mg | | | | 900 mg 900 mg, oral, THREE TIMES | | 16 4:21 | | | | | DAILY, First dose on Sun03/22/16 | | PM PDT | | | | | at 0900, Until Discontinued | | | | | | + +-------+ +--------+---+---+ +---+---+ | | | +---+---+ + +---------+ +--------+---+---+ | HYDROmorphone (DILAUDID) | New Bag | 03/22/20 | 0.3 mg | | | | injection 0.2-0.5 mg 0.2-0.5 mg, | | 16 2:14 | | | | | intravenous, POSTPROCEDURE PRN, | | PM PDT | | | | | Starting Sun03/22/16 at 1007, | | | | | | | Until Sun03/22/16 at 1526, | | | | | | | moderate pain while in Phase I | | | | | | | Recovery | | | | | | + +---------+ +--------+---+---+ +---------+ +--------+---+---+ | New Bag | 03/22/20 | 0.2 mg | | | | | 16 2:03 | | | | | | PM PDT | | | | +---------+ +--------+---+---+ +---+---+ | | | +---+---+ + +---------+ +--------+---+---+ | HYDROmorphone (DILAUDID) | New Bag | 03/26/20 | 0.5 mg | | | | injection 0.2-0.6 mg 0.2-0.6 mg, | | 16 1:11 | | | | | intravenous, EVERY 2 HOURS | | AM PDT | | | | | NEEDED, Starting Sun03/22/16 at | | | | | | | 1827, Until Sun03/28/16 at 1729, | | | | | | | severe pain | | | | | | + +---------+ +--------+---+---+ +---------+ +--------+---+---+ | New Bag | 03/25/20 | 0.5 mg | | | | | 16 1:08 | | | | | | AM PDT | | | | +---------+ +--------+---+---+ | New Bag | 03/23/20 | 0.5 mg | | | | | 16 11:02 | | | | | | PM PDT | | | | +---------+ +--------+---+---+ + +---+ | | | + +---+ | HYDROmorphone (DILAUDID) | | | injection 1 dose, Starting Wed | | | 03/22/16 at 1354, Until Wed | | | 03/22/16 at 1403 | | + +---+ | | | + +---+ + +-------+ +------+---+---+ | HYDROmorphone (DILAUDID) tablet | Given | 03/23/20 | 4 mg | | | | 2-4 mg 2-4 mg, oral, EVERY 3 | | 16 12:07 | | | | | HOURS NEEDED, Starting Wed | | PM PDT | | | | | 9/14/16 at 1837, Until Miriam | | | | | | | 03/23/16 at 1228, moderate pain | | | | | | + +-------+ +------+---+---+ +-------+ +------+---+---+ | Given | 03/23/20 | 4 mg | | | | | 16 9:01 | | | | | | AM PDT | | | | +-------+ +------+---+---+ | Given | 03/23/20 | 4 mg | | | | | 16 5:00 | | | | | | AM PDT | | | | +-------+ +------+---+---+ +---+---+ | | | +---+---+ + +-------+ +------+---+---+ | HYDROmorphone (DILAUDID) tablet | Given | 03/28/20 | 4 mg | | | | 2-6 mg 2-6 mg, oral, EVERY 3 | | 16 10:07 | | | | | HOURS NEEDED, Starting Miriam | | AM PDT | | | | | 03/23/16 at 1228, Until Tue | | | | | | | 03/28/16 at 1729, moderate pain | | | | | | + +-------+ +------+---+---+ +-------+ +------+---+---+ | Given | 03/28/20 | 4 mg | | | | | 16 4:34 | | | | | | AM PDT | | | | +-------+ +------+---+---+ | Given | 03/28/20 | 2 mg | | | | | 16 1:41 | | | | | | AM PDT | | | | +-------+ +------+---+---+ +---+---+ | | | +---+---+ + +-------+ +--------+---+---+ | LORazepam (ATIVAN) tablet 0.5 | Given | 03/28/20 | 0.5 mg | | | | mg 0.5 mg, oral, EVERY 6 HOURS | | 16 1:41 | | | | | NEEDED, Starting Sun03/21/16 | | AM PDT | | | | | at 2037, Until Sun03/28/16 at | | | | | | | 1729, anxiety | | | | | | + +-------+ +--------+---+---+ +-------+ +--------+---+---+ | Given | 03/26/20 | 0.5 mg | | | | | 16 3:59 | | | | | | PM PDT | | | | +-------+ +--------+---+---+ | Given | 03/24/20 | 0.5 mg | | | | | 16 2:31 | | | | | | PM PDT | | | | +-------+ +--------+---+---+ +---+---+ | | | +---+---+ + +-------+ +-------+---+---+ | magnesium hydroxide (MILK OF | Given | 03/27/20 | 30 mL | | | | MAGNESIA) suspension 30 mL 30 | | 16 4:48 | | | | | mL, oral, DAILY NEEDED, | | PM PDT | | | | | Starting 03/26/16 at 0835, | | | | | | | Until 03/28/16 at 1729, | | | | | | | constipation, dyspepsia, 3rd line | | | | | | | constipation | | | | | | + +-------+ +-------+---+---+ +---+---+ | | | +---+---+ + +-------+ +------+---+---+ | menthol (COUGH DROPS) lozenge 5 | Given | 03/24/20 | 5 mg | | | | mg 5 mg (1 lozenge), oral, | | 16 3:33 | | | | | NEEDED, Starting Sun03/22/16 at | | AM PDT | | | | | 1858, Until Tu03/28/16 at 1729, | | | | | | | sore throat | | | | | | + +-------+ +------+---+---+ +-------+ +------+---+---+ | Given | 03/23/20 | 5 mg | | | | | 16 1:47 | | | | | | PM PDT | | | | +-------+ +------+---+---+ +---+---+ | | | +---+---+ + +-------+ + +---+---+ | multivitamin (THERA VITAMIN) 1 | Given | 03/28/20 | 1 tablet | | | | tablet 1 tablet, oral, DAILY, | | 16 9:25 | | | | | First dose on Sun03/22/16 at | | AM PDT | | | | | 1900, Until Discontinued | | | | | | + +-------+ + +---+---+ +-------+ + +---+---+ | Given | 03/27/20 | 1 tablet | | | | | 16 8:33 | | | | | | AM PDT | | | | +-------+ + +---+---+ | Given | 03/26/20 | 1 tablet | | | | | 16 10:28 | | | | | | AM PDT | | | | +-------+ + +---+---+ +---+---+ | | | +---+---+ + + + + + +---+ | NaCl 0.9 % solution 50 mL/hr, | Rate/Dos | 03/23/20 | 50 mL/hr | 50 mL/hr | | | intravenous, CONTINUOUS, Starting | e Change | 16 10:30 | | | | | 03/22/16 at 1200, Until Fri | | AM PDT | | | | | 03/24/16 at 1536 | | | | | | + + + + + +---+ + + + + +---+ | Rate/Dose Verify | 03/22/20 | 50 mL/hr | 50 mL/hr | | | | 16 1:58 | | | | | | PM PDT | | | | + + + + +---+ | New Bag | 03/22/20 | 50 mL/hr | 50 mL/hr | | | | 16 1:00 | | | | | | PM PDT | | | | + + + + +---+ +---+---+ | | | +---+---+ + +---------+ +---+ +---+ | NaCl 0.9%-KCl 20 mEq/L IV | New Bag | 03/21/20 | | 75 mL/hr | | | infusion intravenous, | | 16 11:47 | | | | | CONTINUOUS, Starting Sun03/21/16 | | PM PDT | | | | | at 2045, Until Miriam 03/23/16 at | | | | | | | 1202, at 75 mL/hr | | | | | | + +---------+ +---+ +---+ +---+---+ | | | +---+---+ + +---------+ +------+---+---+ | ondansetron (ZOFRAN) injection | New Bag | 03/27/20 | 4 mg | | | | 4 mg 4 mg, intravenous, EVERY 12 | | 16 6:48 | | | | | HOURS NEEDED, Starting Wed | | PM PDT | | | | | 03/22/16 at 2045, Until Tue | | | | | | | 03/28/16 at 1045, nausea/vomiting, | | | | | | | 1st line therapy | | | | | | + +---------+ +------+---+---+ +---------+ +------+---+---+ | New Bag | 03/26/20 | 4 mg | | | | | 16 2:08 | | | | | | AM PDT | | | | +---------+ +------+---+---+ | New Bag | 03/25/20 | 4 mg | | | | | 16 10:42 | | | | | | AM PDT | | | | +---------+ +------+---+---+ +---+---+ | | | +---+---+ + +-------+ +------+---+---+ | ondansetron ODT (ZOFRAN ODT) | Given | 03/28/20 | 8 mg | | | | tablet 8 mg 8 mg, oral, EVERY 12 | | 16 10:58 | | | | | HOURS NEEDED, Starting Tue | | AM PDT | | | | | 03/28/16 at 1045, Until Tue | | | | | | | 03/28/16 at 1729, nausea/vomiting | | | | | | + +-------+ +------+---+---+ +---+---+ | | | +---+---+ + +-------+ +------+---+---+ | oxyCODONE (immediate release) | Given | 03/22/20 | 5 mg | | | | (ROXICODONE) tablet 5-15 mg 5-15 | | 16 4:22 | | | | | mg, oral, EVERY 3 HOURS | | PM PDT | | | | | NEEDED, Starting 03/21/16 at | | | | | | | 2037, Until 03/22/16 at 1838, | | | | | | | moderate pain | | | | | | + +-------+ +------+---+---+ +-------+ +------+---+---+ | Given | 03/21/20 | 5 mg | | | | | 16 11:33 | | | | | | PM PDT | | | | +-------+ +------+---+---+ +---+---+ | | | +---+---+ + +-------+ +------+---+---+ | polyethylene glycol (MIRALAX) | Given | 03/28/20 | 34 g | | | | powder 34 g 34 g, oral, THREE | | 16 9:35 | | | | | TIMES DAILY NEEDED, Starting | | AM PDT | | | | | 03/21/16 at 7, Until Tue | | | | | | | 03/28/16 at 1729, constipation, | | | | | | | 1st line - for no BM for 2 days | | | | | | + +-------+ +------+---+---+ +-------+ +------+---+---+ | Given | 03/27/20 | 34 g | | | | | 16 11:03 | | | | | | AM PDT | | | | +-------+ +------+---+---+ | Given | 03/26/20 | 34 g | | | | | 16 10:28 | | | | | | AM PDT | | | | +-------+ +------+---+---+ +---+---+ | | | +---+---+ + + + +---------+---+ + | scopolamine (TRANSDERM-SCOPE) | Applied | 03/22/20 | 1 patch | | Right | | 1.5 mg (1 mg over 3 days) 1 patch | Patch | 16 7:23 | | | Post | | 1 patch, transdermal, ONCE, 1 | | AM PDT | | | Auricula | | dose, 03/22/16 at 0800 | | | | | r | + + + +---------+---+ + +---+---+ | | | +---+---+ + + + +---------+---+ + | scopolamine (TRANSDERM-SCOPE) | Applied | 03/25/20 | 1 patch | | Right | | 1.5 mg (1 mg over 3 days) 1 patch | Patch | 16 1:14 | | | Post | | 1 patch, transdermal, ONCE, 1 | | PM PDT | | | Auricula | | dose, 03/25/16 at 1230 | | | | | r | + + + +---------+---+ + + +---+ | | | + +---+ | scopolamine (TRANSDERM-SCOPE) | | | 1.5 mg (1 mg over 3 days) 1 | | | dose, Starting 03/22/16 at | | | 0719, Until 03/25/16 at 0723 | | + +---+ | | | + +---+ + +-------+ + +---+---+ | senna-docusate (SENOKOT S) | Given | 03/28/20 | 1 tablet | | | | 8.6-50 mg 1 tablet 1 tablet, | | 16 9:25 | | | | | oral, TWICE DAILY, First dose on | | AM PDT | | | | | 03/21/16 at 2100, Until | | | | | | | Discontinued | | | | | | + +-------+ + +---+---+ +-------+ + +---+---+ | Given | 03/27/20 | 1 tablet | | | | | 16 8:44 | | | | | | PM PDT | | | | +-------+ + +---+---+ | Given | 03/27/20 | 1 tablet | | | | | 16 8:33 | | | | | | AM PDT | | | | +-------+ + +---+---+ +---+---+ | | | +---+---+ + +-------+ +-------+---+---+ | simethicone chew (MYLICON) | Given | 03/25/20 | 80 mg | | | | tablet 80 mg 80 mg, oral, THREE | | 16 9:45 | | | | | TIMES DAILY NEEDED, Starting | | PM PDT | | | | | 03/25/16 at 2043, Until Tue | | | | | | | 03/28/16 at 1729, bloating | | | | | | + +-------+ +-------+---+---+ +---+---+ | | | +---+---+ + +-------+ +-------+---+---+ | traZODone (DESYREL) dose 25 mg | Given | 03/22/20 | 25 mg | | | | 25 mg, oral, AT BEDTIME | | 16 2:28 | | | | | NEEDED, Starting Sun03/21/16 at | | AM PDT | | | | | 2038, Until Sun03/22/16 at 1851, | | | | | | | insomnia | | | | | | + +-------+ +-------+---+---+ +---+---+ | | | +---+---+ + +-------+ +-------+---+---+ | traZODone (DESYREL) dose 75 mg | Given | 03/24/20 | 75 mg | | | | 75 mg, oral, AT BEDTIME | | 16 11:14 | | | | | NEEDED, Starting Sun03/22/16 at | | PM PDT | | | | | 1850, Until 03/26/16 at 0701, | | | | | | | insomnia | | | | | | + +-------+ +-------+---+---+ +-------+ +-------+---+---+ | Given | 03/23/20 | 75 mg | | | | | 16 11:28 | | | | | | PM PDT | | | | +-------+ +-------+---+---+ | Given | 03/22/20 | 75 mg | | | | | 16 11:54 | | | | | | PM PDT | | | | +-------+ +-------+---+---+ +---+---+ | | | +---+---+ + +-------+ +-------+---+---+ | traZODone (DESYREL) dose 75 mg | Given | 03/28/20 | 75 mg | | | | 75 mg, oral, AT BEDTIME, First | | 16 12:31 | | | | | dose (after last modification) on | | AM PDT | | | | | 03/26/16 at 2200, Until | | | | | | | Discontinued | | | | | | + +-------+ +-------+---+---+ +-------+ +-------+---+---+ | Given | 03/27/20 | 75 mg | | | | | 16 12:23 | | | | | | AM PDT | | | | +-------+ +-------+---+---+ +---+---+ | | | +---+---+ documented in this encounter
--- OUTSIDE RECORDS SUMMARY | ~2019-06-26 | XMS | Encounter Summary ---
Demographics + + + | Address | [address] | | | [place] [address] | + + + | Home Phone [...] Team Providers + +------+ + | [facility] Docent Name | Role | Phone | + [...] | +--------+ + + + + | 03/22/ | Anesthesia | 6A Intra Op 3181 | Najma Brown MD | | | 2016 | Event | [address] | [address] | | | | | [facility] | [facility] | | | | | [facility] Admitting | [place] [address] | | | | | Desk Located on the | [phone] | | | | | 9th floor | | | | | | [place], [place] | [address] Buenrostro | | | | | [address] | GASTON Alvarenga | | +--------+ + + + + Anesthesia Record + + + + + | Procedure Name | Responsible | Anesthesia Start | Anesthesia Stop Time | | | Anesthesiologist | Time | | + + + + + | THORACIC LAMINECTOMY | Najma Brown MD | 03/22/16 0724 | 03/22/16 1236 | | FOR RESECTION OF | | | | | 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 Check | Prior to anesthesia start, pt. Identified, examined, chart | | | 7 | | reviewed, MADELINE held, anesthetic plan made or approved by | | | 0 | | attending anesthesiologist. NPO status confirmed as appropriate | | | 0 | | for procedure Preoperative evaluation: unchanged | +----+---+ + + | | 0 | An Start | | | | 7 | | | | | 2 | | | | | 4 | | | +----+---+ + + | | 0 | An Start | | | | 7 | Data | | | | 2 | | | | | 7 | | | +----+---+ + + | | 0 | Vitals | Monitors applied Vital signs checked Patient ready for anesthesia | | | 7 | Checked | | | | 3 | | | | | 0 | | | +----+---+ + + | | 0 | Std. Airway | | | | 7 | Mgt. | | | | 3 | | | | | 5 | | | +----+---+ + + | | 0 | Art Line | | | | 7 | | | | | 4 | | | | | 5 | | | +----+---+ + + | | 0 | Ready | | | | 7 | | | | | 4 | | | | | 5 | | | +----+---+ + + | | 0 | Quick Note | Positioned prone | | | 7 | | | | | 5 | | | | | 9 | | | +----+---+ + + | | 0 | Quick Note | Sat probe on rt. Arm (same side as A-line) | | | 7 | | | | | 5 | | | | | 9 | | | +----+---+ + + | | 0 | Quick Note | Asked by nerve monitoring to turn gas completely off. Converted | | | 8 | | to TIVA | | | 1 | | | | | 2 | | | +----+---+ + + | | 0 | Abx | | | | 8 | Administere | | | | 2 | d | | | | 1 | | | +----+---+ + + | | 0 | Incision | | | | 8 | | | | | 2 | | | | | 6 | | | +----+---+ + + | | 1 | Quick Note | Starting to close dura, discussed with surgeon and nerve | | | 1 | | monitoring, OK to use small amount of Isoflurane at this time | | | 2 | | | | | 1 | | | +----+---+ + + | | 1 | Quick Note | Nerve monitoring complete, OK to use isoflurane per surgeon | | | 1 | | | | | 2 | | | | | 8 | | | +----+---+ + + | | 1 | Surgery end | supine | | | 2 | | | | | 0 | | | | | 4 | | | +----+---+ + + | | 1 | An Extubate | Neuromuscular function Intact. Pharynx suctioned. Patient obeys | | | 2 | | commands. Adequate pulmonary mechanics., purposeful movement | | | 2 | | (reaching for tube) lifting eye brow | | | 7 | | | +----+---+ + + | | 1 | an stop | | | | 2 | data | | | | 2 | | | | | 7 | | | +----+---+ + + | | 1 | Quick Note | Nasal trumpet placed rt. nare atraumatic | | | 2 | | | | | 3 | | | | | 0 | | | +----+---+ + + | | 1 | Anesthesia | | | | 2 | End | | | | 3 | | | | | 6 | | | +----+---+ + + +------+ | Meds | +------+ + + + | Name | Total | + + + | midazolam | 2 mg | + + + | lidocaine 2% | 100 mg | + + + | propofol | 250 mg | + + + | rocuronium | 30 mg | + + + | fentaNYL | 300 mcg | + + + | PHENYLEPHrine | 600 mcg | + + + | dexamethasone | 4 mg | + + + | propofol INF | 2,068,450 mcg | + + + | SUFentanil INF | 85.57 mcg | + + + | ceFAZolin | 2,000 mg | + + + | PHENYLephrine INF (50mg/250mL) | 4,609.6 mcg | + + + | ondansetron | 4 mg | + + + | neostigmine | 1 mg | + + + | glycopyrrolate | 0.2 mg | + + + | LR | 500 mL | + + + | LR | 500 mL | + + + | NS | 1,300 mL | + + + + + [...] +--------+ + + + | Urethr | 03/22/16; Darion Gibson RN; Quiana; | 03/22/16 0000 by | 03/26/16 1504 by | | al | 16 Fr.; 10 mL; 03/26/16; 1504 | Katelyn Gibson RN | Wendi Choi RN | | Cathet | | | | | er | | | | +--------+ + + + | Incisi | 03/22/16; Michelle Luis; Ximena; | 03/22/16 0000 by | 04/27/17 0659 [...] +--------+ + + + | Arteri | 03/22/16; 0745; Manasa Buenrostro | 03/22/16 0745 by | 03/22/16 1300 by | | al | GASTON; Standard; Right; Radial; | Chantal Alvarenga | Mary Marshall RN | | Line | 20g; 03/22/16; 1300 (removed by | GASTON Buenrostro | | | | Alfreda CARBAJAL/PaCu) | | | +--------+ + + + | Periph | 03/22/16; 0755; Dr. Brown; Right; | 03/22/16 0755 by | 03/22/16 1233 by | | eral | Foot; 18 g; None; No; Positive; | Chantal Alvarenga | Mary Marshall RN | | IV | 03/22/16; 1233 (left foot IV | GASTON Buenrostro | | | | removed prior to arrival to PACU) | | | +--------+ + + + | Periph | 03/22/16; 0833; Manasa Buenrostro | 03/22/16 0833 by | 03/23/16 08 by | | berenice | LINE ERECTOR APPRENTICE; Right; Hand; 18 g; None; | Chantal Alvarenga | Sasha Peña RN | | IV | No; Positive; 03/23/16; 799 | GASTON Buenrostro | | +--------+ + + + documented [...] | ceFAZolin (ANCEF) injection | Given | 03/22/20 | 2,000 mg | | | | intravenous, INTRAPROCEDURE PRN, | | 16 8:21 | | | | | Starting Sun03/22/16 at 0821, | | AM PDT | | | | | Until Sun03/22/16 at 1227 | | | | | | + +--------+ + +------+------+ +---+---+ | | | +---+---+ + +-------+ +------+---+---+ | dexamethasone (DECADRON) | Given | 03/22/20 | 4 mg | | | | injection INTRAPROCEDURE PRN, | | 16 8:40 | | | | | Starting 03/22/16 at 0840, | | AM PDT | | | | | Until Sun03/22/16 at 1227 | | | | | | + +-------+ +------+---+---+ +---+---+ | | | +---+---+ + +-------+ +--------+---+---+ | fentaNYL citrate (PF) | Given | 03/22/20 | 50 mcg | | | | (SUBLIMAZE) injection | | 16 10:32 | | | | | INTRAPROCEDURE PRN, Starting Wed | | AM PDT | | | | | 03/22/16 at 0732, Until Wed | | | | | | | 03/22/16 at 1227 | | | | | | + +-------+ +--------+---+---+ +-------+ +---------+---+---+ | Given | 03/22/20 | 100 mcg | | | | | 16 8:25 | | | | | | AM PDT | | | | +-------+ +---------+---+---+ | Given | 03/22/20 | 50 mcg | | | | | 16 7:34 | | | | | | AM PDT | | | | +-------+ +---------+---+---+ +---+---+ | | | +---+---+ + +-------+ +--------+---+---+ | glycopyrrolate (BOBBY) | Given | 03/22/20 | 0.2 mg | | | | injection INTRAPROCEDURE PRN, | | 16 11:32 | | | | | Starting Sun03/22/16 at 1132, | | AM PDT | | | | | Until Sun03/22/16 at 1227 | | | | | | + +-------+ +--------+---+---+ +---+---+ | | | +---+---+ + + + +---+---+---+ | lactated ringers IV | given by | 03/22/20 | | | | | INTRAPROCEDURE CONTINUOUS PRN, | | 16 11:36 | | | | | Starting Sun03/22/16 at 0820, | anesthes | AM PDT | | | | | Until Sun03/22/16 at 1227 | iology | | | | | + + + +---+---+---+ +---------+ +---+---+---+ | New Bag | 03/22/20 | | | | | | 16 8:20 | | | | | | AM PDT | | | | +---------+ +---+---+---+ +---+---+ | | | +---+---+ + + + +---+---+---+ | lactated ringers IV | given by | 03/22/20 | | | | | INTRAPROCEDURE CONTINUOUS PRN, | | 16 11:36 | | | | | Starting Sun03/22/16 at 0848, | anesthes | AM PDT | | | | | Until Sun03/22/16 at 1227 | iology | | | | | + + + +---+---+---+ +---------+ +---+---+---+ | New Bag | 03/22/20 | | | | | | 16 8:48 | | | | | | AM PDT | | | | +---------+ +---+---+---+ +---+---+ | | | +---+---+ + +-------+ +--------+---+---+ | lidocaine PF (XYLOCAINE MPF) 20 | Given | 03/22/20 | 100 mg | | | | mg/mL (2 %) injection | | 16 7:34 | | | | | INTRAPROCEDURE PRN, Starting Wed | | AM PDT | | | | | 03/22/16 at 0734, Until Wed | | | | | | | 03/22/16 at 1227 | | | | | | + +-------+ +--------+---+---+ +---+---+ | | | +---+---+ + +-------+ +------+---+---+ | midazolam (VERSED) injection | Given | 03/22/20 | 2 mg | | | | INTRAPROCEDURE PRN, Starting Wed | | 16 7:24 | | | | | 03/22/16 at 0724, Until Wed | | AM PDT | | | | | 03/22/16 at 1227 | | | | | | + +-------+ +------+---+---+ +---+---+ | | | +---+---+ + + + +---+---+---+ | NaCl 0.9 % solution | given by | 03/22/20 | | | | | INTRAPROCEDURE CONTINUOUS PRN, | | 16 12:34 | | | | | Starting Sun03/22/16 at 0724, | anesthes | PM PDT | | | | | Until Sun03/22/16 at 1227 | iology | | | | | + + + +---+---+---+ +---------+ +---+---+---+ | New Bag | 03/22/20 | | | | | | 16 7:24 | | | | | | AM PDT | | | | +---------+ +---+---+---+ +---+---+ | | | +---+---+ + +-------+ +------+---+---+ | neostigmine (PROSTIGMIN) | Given | 03/22/20 | 1 mg | | | | injection intravenous, | | 16 11:32 | | | | | INTRAPROCEDURE PRN, Starting Wed | | AM PDT | | | | | 03/22/16 at 1132, Until Wed | | | | | | | 03/22/16 at 1227 | | | | | | + +-------+ +------+---+---+ +---+---+ | | | +---+---+ + +-------+ +------+---+---+ | ondansetron (ZOFRAN) injection | Given | 03/22/20 | 4 mg | | | | INTRAPROCEDURE PRN, Starting Wed | | 16 11:32 | | | | | 03/22/16 at 1132, Until Wed | | AM PDT | | | | | 03/22/16 at 1227 | | | | | | + +-------+ +------+---+---+ +---+---+ | | | +---+---+ + +-------+ +---------+---+---+ | PHENYLEPHrine 100 mcg/mL IV | Given | 03/22/20 | 100 mcg | | | | syringe INTRAPROCEDURE PRN, | | 16 12:07 | | | | | Starting Sun03/22/16 at 0741, | | PM PDT | | | | | Until Sun03/22/16 at 1227, blood | | | | | | | pressure | | | | | | + +-------+ +---------+---+---+ +-------+ +---------+---+---+ | Given | 03/22/20 | 100 mcg | | | | | 16 11:58 | | | | | | AM PDT | | | | +-------+ +---------+---+---+ | Given | 03/22/20 | 100 mcg | | | | | 16 11:34 | | | | | | AM PDT | | | | +-------+ +---------+---+---+ +---+---+ | | | +---+---+ + + + + +--------+---+ | PHENYLEPHrine 50 mg/250 mL (0.2 | Rate/Dos | 03/22/20 | 0.4 | 10.32 | | | mg/mL) IV infusion (ADC) | e Change | 16 11:35 | mcg/kg/m | mL/hr | | | intravenous, INTRAPROCEDURE | | AM PDT | in | | | | CONTINUOUS PRN, Starting Wed | | | | | | | 03/22/16 at 0905, Until Wed | | | | | | | 03/22/16 at 1227 | | | | | | + + + + +--------+---+ + + + +-------+---+ | Rate/Dose Change | 03/22/20 | 0.2 | 5.16 | | | | 16 10:40 | mcg/kg/m | mL/hr | | | | AM PDT | in | | | + + + +-------+---+ | Rate/Dose Change | 03/22/20 | 0.1 | 2.58 | | | | 16 10:32 | mcg/kg/m | mL/hr | | | | AM PDT | in | | | + + + +-------+---+ +---+---+ | | | +---+---+ + + + + +-------+---+ | propofol (DIPRIVAN) injection | Rate/Dos | 03/22/20 | 75 | 36.9 | | | INTRAPROCEDURE CONTINUOUS PRN, | e Change | 16 11:25 | mcg/kg/m | mL/hr | | | Starting Sun03/22/16 at 0759, | | AM PDT | in | | | | Until Sun03/22/16 at 1227 | | | | | | + + + + +-------+---+ + + + +-------+---+ | Rate/Dose Change | 03/22/20 | 50 | 24.6 | | | | 16 11:21 | mcg/kg/m | mL/hr | | | | AM PDT | in | | | + + + +-------+---+ | Rate/Dose Change | 03/22/20 | 125 | 61.5 | | | | 16 8:08 | mcg/kg/m | mL/hr | | | | AM PDT | in | | | + + + +-------+---+ +---+---+ | | | +---+---+ + +-------+ +-------+---+---+ | propofol INTRAPROCEDURE PRN, | Given | 03/22/20 | 50 mg | | | | Starting Sun03/22/16 at 0734, | | 16 7:54 | | | | | Until Sun03/22/16 at 1227 | | AM PDT | | | | + +-------+ +-------+---+---+ +-------+ +--------+---+---+ | Given | 03/22/20 | 200 mg | | | | | 16 7:34 | | | | | | AM PDT | | | | +-------+ +--------+---+---+ +---+---+ | | | +---+---+ + +-------+ +-------+---+---+ | rocuronium (ZEMURON) injection | Given | 03/22/20 | 30 mg | | | | INTRAPROCEDURE PRN, Starting Wed | | 16 7:34 | | | | | 03/22/16 at 0734, Until Wed | | AM PDT | | | | | 03/22/16 at 1227, Neuromuscular | | | | | | | block | | | | | | + +-------+ +-------+---+---+ +---+---+ | | | +---+---+ + +---------+ + +-------+---+ | SUFentanil INF INTRAPROCEDURE | New Bag | 03/22/20 | 0.3 | 0.52 | | | CONTINUOUS PRN, Starting Wed | | 16 8:04 | mcg/kg/h | mL/hr | | | 03/22/16 at 0804, Until Wed | | AM PDT | r | | | | 03/22/16 at 1227 | | | | | | + +---------+ + +-------+---+ +---+---+ | | | +---+---+ documented in this encounter"
--- OUTSIDE RECORDS SUMMARY | ~2019-06-26 | XMS | Encounter Summary ---
Demographics + + + | Address | [address] | | | [place] [address] | + + + | Home Phone [...] Team Providers + +------+ + | Care Learning And Development Analyst Name | Role | Phone | [...] | | Thoracic | Raegan Nieves, | [facility] [address] | | | | | spine tumor | PA-C [address] | | | | | Procedures | [address] | Mailcode: | | | | | MRI SPINE | [facility], | [address] | | | | | THORACIC WWO | [place] | for Health | | | | | CONTRAST | [address] | and Healing, | | | | | [place] MRI, | Phone: | Building 1, | | | | | DORSAL SPINE | [phone] | 3rd Floor | | | | | COMBO | Fax: | [place], [place] | | | | | | [phone] | [address] | | | | | | | Phone: | | | | | | | [phone] | | | | | | | Fax: | | | | | | | [phone] | +--------+--------+ + + + + Occupational [...] | | | | | THERAPY | [place], [place] | | | | | | REFERRAL | [address] | | +--------+--------+ + + + + [...] | | | spine tumor | PA-C [address] | | | | | | Procedures | [address] | | | | | | PHYSICAL | [address] | | | | | | THERAPY | Rd | | | | | | REFERRAL | [place], [place] | | | | | | | [address] | | +--------+--------+ + + + + [...] + + | 03/21/ | Hospital | [facility] [address] | Rajinder Luis MD | | | 2016 - | Encounter | [address] | [address] | | | | | [id number] [facility] | [place], [place] | | | 03/28/ | | HOSPITAL [place], | [address] | | | 2016 | | [place] [address] | [phone] | | | | | [phone] | | | +--------+ + + + [...] Luis MD PCP: Clare Chowdary MD Service: [facility] Neurosurgery Diagnoses Principal Final Diagnosis: 1. [...] resections (05/2015, 09/2015). The [facility] for a right-sided T8 and [...] patient was [facility], and e patient and/or family members [...] THIS IF YOU ARE STILL ADMITTED AT [facility]. This will be on the 8th floor at the [facility] on the [facility] located at [address] [facility], [place] [facility]. Polo roberts call [phone] if you have any questions or concerns [...] 7:46 AM Discharging Attending: Rajinder Luis MD [facility] [address] [address] [address] documented in this encounter Progress Notes Raegan Doss PA-C - 03/28/2016 7:46 AM PDTFormatting of this note might be different f rom the original. Neurosurgery Progress Note Hospital Day:7 Author; Raegan Doss PA-C Attending Physician: Rajinder Luis MD Interval Hx: No acute events overnight. Pt states she is looking forward to going to [employer] today. Pt state s her BLE sensation [...] moderate swelling under skin, no erythema, dry. [place] in place. Sensation: LT sensation at pre-op [...] on 04/05. This can be completed at [facility] or at the [facility] follow up visit. CV: HD stable. Pulm: [...] bed. On ppx Lovenox qHS. Dispo: To [facility] today at 11am. Will see patient back in clinic in 1 month with a repeat thora cic MRI. Raegan Doss PA-C [facility] [address]Q [address] [address] [address] dams, PHILIPPE Mena - 03/27/2016 4:51 PM [...] ppx Lovenox qHS. [facility] Raegan Doss PA-C [facility] [address] [address] [place] [address] Sumeet Malone MD - 03/26/2016 9:23 AM [...] Consult to physiatry with likely placement at [facility]. PT recs IPR. Oncology: Pathology shows recurrent/residual [...] Dispo: Pending medical course, likely IPR at [facility]. Appreciate CM following. Sumeet Ross MD Neurological [...] Consult to physiatry with likely placement at [facility]. PT recs IPR. Oncology: Pathology shows recurrent/residual [...] Dispo: Pending medical course, likely IPR at [facility]. Appreciate CM following. Sumeet Ross MD Neurological Surgery PGY1 acey Pimentel PA-C - 03/24/2016 11:18 AM PDTFormatting of this note might be different from the [facility]. Neurosurgery Progress Note Hospital Day:3 [...] sensation intact in all 4 extremities Motor: Community Engagement Manager Bicep Tricep Delt R 5 5 5 [...] to evaluate patient for possible admission to [facility]. Oncology: Pathology in process. 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 Plan to repeat MRI in one month and evaluation for possible radiation needs at that time. HEENT/Derm: Menthol drops prn mouth soreness. Routine wound care to spinal incision - pleas e leave open to air. Okay to wash on 03/25. Alta Vista will need to be removed at 2 [...] Dispo: Pending medical course. Kacey Pimentel PA-C [facility] [address] [address] [place] [address] dams, Raegan Nieves PA-C - 03/23/2016 7:58 [...] O2 Delivery Device: None (room air) (03/23/16 9176) 24 Hour Vital Min/Max: Systolic (24hrs), Av [...] Full strength throughout 11/10 - B, T, product development specialist, HF, KE, APF, ADF Daniels catheter in [...] to evaluate patient for possible admission to [facility]. HEENT/Derm: Menthol drops prn mouth soreness. Routine [...] Dispo: Pending medical course. Raegan Doss PA-C [facility] [address] [address] [address] Yokasta Pizano MD - 03/22/2016 5:30 PM [...] consult per patient's request Yokasta Randall PGY3 [id number] Cesar Najera MD - 03/22/20 16 3:05 [...] | + + + + + | [facility] | [address] | [place] [address] | | | SERVICES, CORE | JEAN [...] | | | LABORATORY | | | NIUEAN | | | SERVICES, | | | [...] [facility] | [address] | [place] [address] | | | SERVICES, NINO | JEAN [...] | + + + + + | [facility] | [address] | [place] [address] | | | SERVICES, CORE | JEAN [...] | | | LABORATORY | | | NIUEAN | | | SERVICES, | | | [...] | + + + + + | [facility] | [address] | [place] [address] | | | NINO LEONARD | JEAN [...] MARQUAM | [address] | [place], [place] | | | JAVIER POINT OF CARE | [facility] | [address] | | | TESTS | | | [...] | + + + + + | [facility] | [address] | [place] [address] | | | SERVICES, CORE | PARK [...] | | | LABORATORY | | | NIUEAN | | | SERVICES, | | | [...] | + + + + + | [facility] | [address] | [place] [address] | | | SERVICES, CORE | PARK [...] MARQUAM | [address] | [place], [place] | | | ZELALEM HERRERA OF CARE | [address] | [address] | | | TESTS | | | [...] (H) | 60 - 99 mg/dL | [facility] - | | | GLUCOSE, | [...] MARMARILEEAM | [address] | [place], [place] | | | ZELALEM HERRERA OF CARE | [address] | [address] | | | TESTS | | | [...] (H) | 60 - 99 mg/dL | [facility] - | | | GLUCOSE, | [...] BRAMBILA | [address] | [place], [place] | | | ZELALEM HERRERA OF CARE | [address] | [address] | | | TESTS | | | [...] MARQUAM | [address] | [place], [place] | | | ZELALEM HERRERA OF CARE | [address] | [address] | | | TESTS | | | | + + + + + OPERATION RECORD (03/24/2016 9:53 AM PDT) + + | Transcriptions | + + | Rajinder Luis MD - 03/22/2016 4:04 PM PDT Date of Service: 03/22/2016 Attending | | Surgeon: Rajinder Luis MD Flyer Maker(s): Thomas Gorman, | | MNacho., Ph.D. Preoperative [...] was closed primarily using a running 5-0 [place]-Thaddeus suture in a locking fashion. At | | the lowest incision, the dural tacking sutures were crossed. The dura was also closed | | in primary fashion using a running 5-0 [place]-Thaddeus suture in locking fashion. These dural | [...] 03/22/2016 12:20:45DT: 03/22/2016 | | 16:04:07Job #: [id number] | + + CBC (HEMOGRAM) ONLY (03/24/2016 [...] LABORATORY | [address] | [place] [address] | | | SERVICES, CORE | PARK [...] | | | LABORATORY | | | NIUEAN | | | SERVICES, | | | [...] | + + + + + | [facility] [employer] | [address] | [place] [address] | | | NINO LEONARD | JEAN [...] PATTY | [address] | [place], [place] | | | ZELALEM HERRERA OF NURIA | [facility] | [address] | | | TESTS | | | [...] (H) | 60 - 99 mg/dL | [facility] - | | | GLUCOSE, | [...] BRAMBILA | [address] | [place], [place] | | | JAVIER POINT OF CARE | [address] | [address] | | | TESTS | | | [...] PATTY | [address] | [place], [place] | | | ZELALEM HERRERA OF CARE | [address] | [address] | | | TESTS | | | [...] PATTY | [address] | [place], [place] | | | ZELALEM HERRERA OF [facility] | [facility] | [address] | | | TESTS | | | [...] LABORATORY | [address] | [place] [address] | | | NINO LEONARD | JEAN [...] LABORATORY | [address] | [place] [address] | | | SERVICES, CORE | [address] | | | + + + + + FIBRINOGEN (03/23/2016 5:50 AM PDT) + +-------+ + + + | Component | Value | Ref Range | Performed | Pathologist | | | | | At | Signature | + +-------+ + + + | FIBRINOGEN | 367 | 200 - 450 mg/dL | [facility] | | | LEVEL | | | [...] | + + + + + | [facility] [employer] | [address] | [place] [address] | | | SERVICES, CORE | JEAN [...] + + | [facility] | [address] | [place] [address] | | | SERVICES, CORE | PARK [...] + + | [facility] | [address] | [place] [address] | | | SERVICES, CORE | PARK [...] | | | LABORATORY | | | NIUEAN | | | SERVICES, | | | [...] the MDRD equation recommended by the | [facility] | | National Kidney Disease Education [...] | + + + + + | [facility] | [address] | [place] [address] | | | HORACIO, NINO | JEAN [...] (H) | 60 - 99 mg/dL | [facility] - | | | GLUCOSE, | [...] - MARQUAM | [address] | [place], [place] | | | ZELALEM HERRERA OF NURIA | [address] | [address] | | | TESTS | | | [...] BRAMBILA | [address] | [place], [place] | | | ZELALEM HERRERA OF NURIA | [facility] | [address] | | | TESTS | | | [...] PATTY | [address] | [place], [place] | | | JAVIER POINT OF [facility] | [address] | [address] | | | TESTS | | | [...] BRAMBILA | [address] | [place], [place] | | | ZELALEM HERRERA OF CARE | [address] | [address] | | | TESTS | | | [...] MARQUAM | [address] | [place], [place] | | | JAVIER POINT OF CARE | [address] | [address] | | | TESTS | | | [...] BRAMBILA | [address] | [place], [place] | | | JAVIER POINT OF CARE | [address] | [address] | | | TESTS | | | | + + + + + INTRAOPERATIVE NEURO MONITORING (03/22/2016) + + + | Narrative | Performed At | + + + | Patient Name: Matt Fagan Date of : 1990 | | | Date of Test: 03/22/2016 Place of | | | Service: IP Intra Op ([id number] INTRAOPERATIVE NEURO | | | MONITORING History: [...] Clinical Neurophysiology | | | Suggested CPT: 93016 - IOM Remote x 3 hr(s) 50757 - Short | | | Latency EP's Upper AND Lower extremities 50595 - Central Motor EP's | | | Upper AND Lower extremities 08978 - Neuromuscular Junction Test | | | [...] prior | | | | | | resections([id number] | | | | | | and [id number]) with | | | | | | [...] | | | [facility] [...] | | | | | | record #[id number], and | | | | | | [...] + + + + | [facility] | [address] | [place] [address] | | | PATHOLOGY | [address] [...] | | AIRPORT - | | | [place] | + + + + + + + + | Performing | Address | City/State/Zipcode | Phone Number | | Organization | | | | + + + + + | [facility] | [address] | [place] [address] | | | [place] | | | | + + + [...] | + + + + + | [facility] | [address] | [place] [address] | | | SERVICES, CORE | PARK [...] | + + + + + | [facility] | [address] | [place] [address] | | | SERVICES, NINO | JEAN [...] | + + + + + | [employer] | [address] | [place] [address] | | | SERVICES, CORE | PARK [...] LABORATORY | [address] | [place] [address] | | | SERVICES, CORE | PARK [...] LABORATORY | [address] | [place] [address] | | | SERVICES, | [address] [...] LABORATORY | [address] | [place] [address] | | | SERVICES, | [address] [...] + + | [facility] | [address] | [place] [address] | | | SERVICES, CORE | PARK [...] LABORATORY | [address] | [place] [address] | | | SERVICES, CORE | PARK [...] | + + + + + | [facility] | [address] | [place] [address] | | | SERVICES, CORE | PARK [...] | + + + + + | [facility] | [address] | [place] [address] | | | SERVICES, CORE | JEAN [...] | | | LABORATORY | | | NIUEAN | | | SERVICES, | | | [...] the MDRD equation recommended by the | [facility] | | National Kidney Disease Education [...] | + + + + + | [facility] | [address] | [place] [address] | | | NINO LEONARD | JEAN [...] 77 | 60 - 99 mg/dL | [facility] - | | | GLUCOSE, | [...] BRAMBILA | [address] | [place], [place] | | | ZELALEM HERRERA OF NURIA | [address] | [address] | | | TESTS | | | [...] + + + + | PRODUCT | [id number] | | [facility] | | | UNIT [...] + + + + | EXPIRATION | [id number] | | [facility] | | | DATE [...] + + + + | BLOOD | [id number] | | [facility] | | | PRODUCT [...] OF | [address] | [place] [address] | | | PATHOLOGY | [address] [...] + + + + | PRODUCT | [id number] | | [facility] | | | UNIT [...] + + + + | EXPIRATION | [id number] | | [facility] | | | DATE [...] + + + + | BLOOD | [id number] | | [facility] | | | PRODUCT [...] + + + + | [facility] | [address] | [place] [address] | | | PATHOLOGY | [address] | | | + + + + + ED INFORMATION EXCHANGE (03/21/2016 6:36 PM PDT) + + + + + + | Component | Value | Ref Range | Performed | Pathologist | | | | | At | Signature | + + + + + + | [facility] | [id number] | | [facility] | | | | [id number] | | MEDICAL | | | | [...] ------- ---- | | | 03/21/2016 18:35 [facility] | | | [facility] [place] [address]. 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 | | | [place] Emergency NO FEELING IN LOWER LIMBS | | | INPATIENT VISIT TRACKING (1 MO.) Visit Date | | | LocationCity ST TypeDx / Complaint | | | ED | | | VISIT COUNT (1 YR.) Visits Location ------ --------- 2 | | | [facility] [address] [facility] | | | [facility] Total Note: Visits indicate total | | | known visits. | | | | | | --- CARE PROVIDERS Name | | | Phone Type | | | Service Dates ---- | | | ----- ---- | | | [facility] | | | [phone] Primary Care Unknown - Current | | | [facility] Unknown | | | Primary Care Unknown - Current DOCTOR JOSÉ LUIS at [facility] | | | [facility] Unknown Primary Care | | | Unknown - Current TIAN DE JESUS | | | [id number] Primary Care 01/26/2016 - | | | Current [facility] | | | [id number] Primary Care 01/24/2016 - Current | | + + + + + + + + | Performing | Address | City/State/Zipcode | Phone Number | | Organization | | | | + + + + + | [facility] | [address], | [place], [place] | [phone] | | [employer] | [address] | [address] | | + + + + + [...] | | | | | modification) on [facility] 03/23/16 at | | | | | | | 1400, Last dose on [facility] 03/23/16 at | | | | [...] | | | | | modification) on [facility] 03/25/16 at | | | | | [...]
--- OUTSIDE RECORDS SUMMARY | ~2019-06-26 | XMS | Encounter Summary ---
Demographics + + + | Address | [address] | | | [place] [address] | + + + | Home Phone [...] Team Providers + +------+ + | Care Early Childhood Name | Role | Phone | + +------+ + | No Pcp Per Patient | PCP | Unavailable | + +------+ + Encounter Details +--------+ + + + + | Date | Type | Department | Care Team | Description | +--------+ + + + + | 02/14/ | Procedure | Radiology/Imaging | | | | 2017 | Pass | Lab at [facility] [address] | | | | | | [address] Mailcode: | | | | | | [facility] | | | | | | Health and Healing, | | | | | | [facility] 1, 3rd | | | | | | Floor [place], [place] | | | | | | [address] | | | | | | [phone] | | | +--------+ + + + [...]
--- OUTSIDE RECORDS SUMMARY | ~2019-06-26 | XMS | Encounter Summary ---
Demographics + + + | Address | [address] | | | [place] [address] | + + + | Home Phone [...] Author + + + | Author | [facility] | + + + | Organization | [facility] | + + + | [...] Team Providers + +------+ + | Care Wood Furniture Assembler Name | Role | Phone | + [...] Closed | | Occupational | Diagnoses | Romario | | | | | Therapy | Spinal cord | Raegan K, | | | | | | tumor | PA-C [address] | | | | | | Procedures | [address] | | | | | | OCCUPATIONAL | [facility], | | | | | | THERAPY | [place] | | | | | | REFERRAL | [address] | | | | | | | Phone: | | | | | | | [phone] | | | | | | | Fax: | | | | | | | [phone] | | +--------+--------+ + + + + Physical Therapy (Routine) +--------+--------+ + + + + | Status | Reason | Specialty | Diagnoses / | Referred By | Referred To | | | | | Procedures | Contact | Contact | +--------+--------+ + + + + | Closed | | Physical | Diagnoses | Romario, | | | | | Therapy | Spinal cord | Raegan Nieves, | | | | | | tumor | PA-C [address] | | | | | | Procedures | [address] | | | | | | PHYSICAL | [place], | | | | | | THERAPY | [place] | | | | | | REFERRAL | [address] | | | | | | | Phone: | | | | | | | [phone] | | | | | | | Fax: | | | | | | | [phone] | | +--------+--------+ + + + + [...] + + + + | 01/11/ | Hospital | [facility] [address] | Miguel Powell, | | | 2017 - | Encounter | [place] | [address] [facility] | | | | | /[id number] [facility] | [facility] [address] | | | 01/18/ | | HOSPITAL [place], | [place], [place] | | | 2017 | | [place] [address] | [address] | | | | | [phone] | [phone] | | | | | | | | | | | | Bin Li MD | | | | | | Sascha Monk, | | | | | | [address] | | | | | | [place], [place] | | | | | | [address] | | | | | | [phone] | | | | | | | | | | | | Rajinder Luis MD | | | | | | [address] | | | | | | [place], [place] | | | | | | [address] | | | | | | [phone] | | | | | | | [...] 01/18/2017 Attending Physician: Rajinder Luis MD PCP: Clare Chowdary MD Service: [facility] Neurosurgery Diagnoses 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 Post operatively, the patient was admitted [...] rehabilitation team and was seen by a Distribution District Supervisor with recommendation for [facility] upon discharge. While on the hospital floor, the patient tolerated oral intake sufficient to maintain nutri tion and hydration. The surgical wound remained clean, dry, and intact without signs concern ing for infection. The patient was felt appropriate for discharge to [facility] ([place]) on 01/18/2017 , and the patient and/or family members agree with this course of action. The patient will need to have her slim removed around 2 weeks post-op. This can either b e done at her post-op clinic visit or at [place] by a provider and then cancel the [...] be on the 12th floor at the [facility] on the [facility] located at [address] [place] [address]. Please call [phone] if you have any questions or concerns before your appointment time. If you are still admitted to [place] at the time of this appointment, the providers at [place] can remove your slim. Please then make a 6 week post-op visit to see Raegan Doss PA-C in [facility] rosurgery clinic for routine follow up. You can call [phone] to make this appointment. PCP:Clare Chowdary MD When: Please follow-up with [...] though it may it ch. 4) Your slim will need to be removed at 2 weeks post-op, around 01/28/17. If you are still admitted to [place] when your slim need to come out, the providers at [place] c an remove your slim. Please then make a 6 week post-op visit to see Raegan Doss PA-C in Neurosurgery clinic for routine follow up. You can call [phone] to make this appointmen t. Special Instructions/Tests: N/A Condition On Discharge: Good Vital Signs at discharge as appropriate: BP: 109/55 (01/18/17450) Pulse: 64 (01/18/17450) Resp: 14 (450) Weight: 78 kg (171 lb 15.3 oz) (01/15/17 0000) Discharge Patient To: Interhospital Transfer - [place] [facility]patient [facility] Does patient have a planned readmission: No Discharge Summary Completed?: Yes. 01/18/2017 Discharging Provider: Raegan Doss PA-C Date Completed: 01/18/2017 Time Completed: 10:56 AM Discharging Attending: [place] [address] documented in this encounter Medications at Time [...] patient and recommended a short stay at [facility] -Patient has required several straight caths [...] Thoracic incision: flat, dry, no erythema, intact. Slim present. Sensation: LT sensation is patchy in BLE. Motor: HF KF KE APF ADF Left 5 5 5 5 5 Right 5 4+ 4 5 5 Labs: CBC with diff last 72 hours (or 3 results) Recent Labs 01/16/1771301/17/17 0634 01/18/17 0635 WBC 9.16 8.18 7.96 HB 12.0 12.6 11.5* HCT 37.4 39.2 36.5 PLT 249 290 319 Chemistries: Last 72 Hours (or 3 results): Recent Labs 01/16/1771301/17/1734 01/18/17 0635 NA 136 139 139 K [...] to shower/wash incision mariola ly. Will remove slim at 2 weeks post-op. CV: HD stable. [...] prevention, appreciate PT/OT involvement with recs for [facility]. ID/Heme: Afebrile since admission on 01/11. DVT ppx: SCDs while in bed, ppx lovenox 40mg inj. qHS. Dispo: Patient is medically stable for discharge. CM working on placement at [facility] for discharge today. Raegan Doss PA-C [facility] [address] [address] [address] dams, PHILIPPE Mena - 01/17/2017 10:28 AM [...] Thoracic incision: flat, dry, intact. No erythema. [place] present. Sensation: Patchy numbness in BLE. Decreased [...] to shower/wash incision mariola ly. Will remove slim at 2 weeks post-op. CV: HD stable. [...] siatry consult placed for possible admission to [facility]. ID/Heme: Afebrile since admission on 01/11. DVT ppx: SCDs while in bed, ppx lovenox 40mg inj. qHS. Dispo: Pending physiatry consult. Appreciate CM involvement. Raegan Doss PA-C [facility] [address]Z [address] [address] [address] dams, PHILIPPE Mena - 01/16/2017 8:38 AM [...] incision: flat, dry, no erythema, no fluctuance. [place] present. Sensation: Patchy sensation loss in BLE, L>R. Motor: HF KF KE APF ADF Left 5 5 5 5 5 Right 5 5 4+ 5 5 Labs: CBC with diff last 72 hours (or 3 results) Recent Labs 01/14/17 0054 01/15/17 0030 01/16/17 0714 WBC 8.70 10.08 9.16 HB 11.8* 11.9* 12.0 HCT 36.0 37.0 37.4 PLT 257 237 249 Chemistries: Last 72 Hours (or 3 results): Recent Labs 01/14/17 0054 01/14/17 0729 01/15/17 0030 01/16/1714 NA 142 -- -- 142 136 K [...] to shower/wash incision mariola ly. Will remove slim at 2 weeks post-op. CV: HD stable. [...] Will discuss with CM. Raegan Doss PA-C [facility] [address]T [address] [address] [place] [address] dams, PHILIPPE Mena - 01/15/2017 9:02 AM [...] in until able to ambulate to [facility]. She also r equests going up on [...] O2 Delivery Device: None (room air) (01/15/17 0525) 24 Hour Vital Min/Max: Systolic (24hrs), Av , Min:96 , Max:112 Diastolic (24hrs), Av, Min:54, Max:74Pulse Min: 52 Max: 69 Temp Min: 36.6 C (97.9 F) Max: 37 C (98.6 F) Resp Min: 11 Max: 25 SpO2 Min: 97 % Max: 100 % Intake/Output Summary (Last 24 hours) at 01/15/17 0902 Last data filed at 01/15/17 0500 Gross [...] 72 hours (or 3 results) Recent Labs 01/13/17154501/14/175301/15/17 0030 WBC -- 8.70 10.08 HB -- 11.8* 11.9* HCT 36.0 36.0 37.0 PLT -- 257 237 Chemistries: Last 72 Hours (or 3 results): Recent Labs 01/13/17154501/14/175301/14/176 01/14/17 0729 01/15/17 0030 NA 142 -- [...] oint ments or creams, please. Will remove slim at 2 weeks post-op. CV: HD stable. [...] and possible rehab needs. Raegan Doss PA-C [facility] [address] [facility]/[place] [address] uKaci guerra M D - 01/14/2017 9:42 AM PDT . Neuroscience Intensive Care Unit Attending Progress Note Attending Pager #[phone] Documentation Date 01/13/17 1450 Day of Procedure [...] team members Provider Role Specialty Ipt Neurosurgery #[id number] Treatment Team Neurological Surgery Ipt Critical Care Nsicu #[id number] Treatment Team -- Code Status Code Status [...] on counseling and coordination of care.Seen with PA/INDUSTRIAL HYGIENE ENGINEER Ryan. Please see their note for details. I reviewed the documented findings, all data and the recent imaging available. Date of Service: 01/14/2017 Kaci Mon MD Author:Kaci Mon MD [address] [email or web address] signed by Kaci Mon MD at 01/14/2017 8:45 PM Chirag Reyna MD - 01/14/2017 9:03 AM PDTFormatting of [...] Aaron MD Neurosurgery, PGY-2 On-call resident pager [phone] 9:03 AM 01/14/2017 [facility] - 01/14/2017 7:30 AM PDT . Neuroscience Intensive Care Unit Team Progress Note NSICU ASSIGNED #[id number] Documentation Date 01/13/17 1450 Day of Procedure [...] & Plan -Admit to NSICU; Dr. Michelle Lusi primary. S/p T8 and T9 laminectomy for [...] team members Provider Role Specialty Ipt Neurosurgery #[id number] Treatment Team Neurological Surgery Ipt Critical Care Nsicu #56001 Treatment Team -- Patient Lines/Drains/Airways Status Active Lines, Drains and Airways Name: Placement date: Placement time: Site: Days: Peripheral IV Left Hand 16 g 07/08/17 1414 Hand less than 1 Incision Posterior [...] of Service: 01/14/2017 AIXA Sanders EPIC DEPARTMENT: [facility] ICU NEURO Place of Service:- Inpatient CSN: [id number] Suggested Modifier: None Suggested CPT: TO ADOLESCENT COUNSELOR AIXA Orozco Author:AIXA Sanders [address] [id number] signed by AIXA Orozco at 01/14/2017 11:26 AM Stephie Rodríguez MD - 01/13/2017 9:35 PM PDTFormatting of this note might be differen t from the original. . Neuroscience Intensive Care Unit Attending Progress Note Attending Pager #[phone] Documentation Date 01/13/17 1450 Day of Procedure [...] team members Provider Role Specialty Ipt Neurosurgery #[id number] Treatment Team Neurological Surgery Ipt Critical Care Nsicu #63408 Treatment Team -- Code Status Code Status [...] on counseling and coordination of care.Seen with PA/INDUSTRIAL HYGIENE ENGINEER Ms. Gonzalez. Please see their note for details. I reviewed the documented findings, all data and the recent shmuel ging available. Date of Service: 01/13/2017 [facility] DEPARTMENT: [facility] ICU NEURO Place of Service:- Inpatient CSN: [id number] Suggested Modifier: GC - Resident Involved Suggested CPT: TO ADOLESCENT COUNSELOR Author:Stephie Anders MD [place] [address] [place] [id number] signed by Stephie Anders MD at 01/13/2017 [...] all extremities, gait not examined Wound with slim A/P: Neurologically stable. Continue care: - Neuro checks q 1 hour - Keep incision and dressings C/D/I. - Maintain adequate analgesia with goal RASS 0 - SBP 100-160 - ADAT - Utilize bowel regimen for goal 1 BM per 24 hours - SCDs while in bed - Flat until noon tomorrow, then HOB30, mobilize slowly Chirag Aaron MD Neurosurgery, PGY-2 On-call resident pager [phone] 8:22 PM 01/13/2017 Cesar Najera MD - [...] setting of fever to 103. LLE at [facility] and unchanged. Concern for tumor progression [...] MD Neurosurgery Resident 11:07 PM, 01/12/2017 Pager #[phone] acey Pimentel P A-C - 01/12/2017 8:42 AM PDT [...] 01/14 for tumor resection. Kacey Pimentel PA-C [facility] [address] [place] [address] Chavo Robert MD - 01/11/2017 9:27 PM [...] midline No pronator drift Delt Bi Tri Gas Refrigerator Servicer HF KE KF DF PF Left 5 [...] now Chavo Penn MD Neurosurgery Resident Pager #[phone] signed by Chavo Penn MD at 01/11/2017 [...] [facility] | [address] | [place] [address] | | | SERVICES, CORE | PARK [...] | LABORATORY | | | [place] | | | SERVICES, | | | [...] | Adult glucose reference range change effective 01-17-. GFR is | [facility] | | estimated using the MDRD equation recommended by the National Kidney | LABORATORY | | Disease Education Program. Estimated GFR Interpretive Information: | SERVICES, CORE | | <60 mL/min/1.73 sq m [...] + + + + + | [facility] [employer] | [address] | [place] [address] | | | SERVICES, NINO | JEAN [...] [facility] | [address] | [place] [address] | | | SERVICES, CORE | PARK [...] | LABORATORY | | | [place] | | | SERVICES, | | | [...] LABORATORY | [address] | [place] [address] | | | SERVICES, CORE | PARK [...] + + + + + | [facility] | [address] | [place] [address] | | | HORACIO, NINO | JEAN [...] | LABORATORY | | | [place] | | | SERVICES, | | | [...] + + + + + | [facility] | [address] | [place] [address] | | | SERVICES, CORE | [address] | | | + + + + + PROCEDURE NOTE (01/15/2017 7:18 PM PDT)OPERATION RECORD (01/15/2017 8:11 AM PDT) + + | Procedure Note | + + | Rajinder Luis MD - 01/13/2017 8:53 PM PDT Date of Service: 01/13/2017 Attending | | Surgeon: Rajinder Luis MD Forestry Hunter(s): Joby Thibodeaux, | | . Preoperative Diagnosis: Thoracic intramedullary [...] the | | operating room on a [facility]. General endotracheal anesthesia was induced [...] dura was reapproximated and closed using 5-0 [place] suture | | in a running fashion. [...] interrupted fashion. The skin was closed with slim. | | The drapes were then taken down. The wound was then washed and a sterile dressing was | | applied. The patient was then transitioned from a prone back to a supine position on | | [facility]. She was then extubated by the [...] the critical | | portions of the operation.LEILA Henry/MODLDD: 01/13/2017 19:31:27DT: | | 01/13/2017 20:53:09Job #: [id number] | + + CBC (HEMOGRAM) ONLY (01/15/2017 [...] + + + + + | [facility] | [address] | [place] [address] | | | SERVICES, CORE | PARK [...] | LABORATORY | | | [place] | | | SERVICES, | | | [...] + + + + + | [facility] | [address] | [place] [address] | | | SERVICES, CORE | [address] | | | + + + + + MAGNESIUM, PLASMA (01/15/2017 12:30 AM PDT) + +-------+ + + + | Component | Value | Ref Range | Performed | Pathologist | | | | | At | Signature | + +-------+ + + + | MAGNESIUM,P | 2.3 | 1.8 - 2.5 mg/dL | [facility] | | | [facility] | | | LABORATORY | | | [...] | + + + + + | [facility] | [address] | [place] [address] | | | NINO LEONARD | JEAN [...] PATTY | [address] | [place], [place] | | | JAVIER POINT OF CARE | [facility] | [address] | | | TESTS | | | | + + + + + CAPILLARY BLOOD GLUCOSE (NO CHG), POC (01/14/2017 1:06 AM PDT) + +-------+ + + + | Component | Value | Ref Range | Performed | Pathologist | | | | | At | Signature | + +-------+ + + + | BLOOD | 96 | 60 - 99 mg/dL | [facility] [...] BR[facility] | [address] | [place], [place] | | | ZELALEM HERRERA OF NURIA | [facility] | [address] | | | TESTS | | | [...] + + + + + | [facility] | [address] | [place] [address] | | | SERVICES, CORE | [address] | | | + + + + + MAGNESIUM, PLASMA (01/14/2017 12:54 AM PDT) + +-------+ + + + | Component | Value | Ref Range | Performed | Pathologist | | | | | At | Signature | + +-------+ + + + | MAGNESIUM,P | 1.9 | 1.8 - 2.5 mg/dL | [facility] [...] + + + + + | [facility] | [address] | [place] [address] | | | SERVICES, CORE | PARK [...] | LABORATORY | | | [place] | | | SERVICES, | | | [...] + + + + + | [facility] | [address] | [place] [address] | | | SERVICES, CORE | JEAN [...] 97 | 60 - 99 mg/dL | [facility] - | | | GLUCOSE, [...] BRAMBILA | [address] | [place], [place] | | | ZELALEM HERRERA OF CARE | [address] | [address] | | | TESTS | | | [...] case. Skin closed | | | with slim. See forthcoming dictation for details. | | [...] | | | POC | | | JAVIER, POINT | | [...] BRAMBILA | [address] | [place], [place] | | | ZELALEM HERRERA OF [facility] | [address] | [address] | | | TESTS | | | [...] MARQUAM | [address] | [place], [place] | | | [place], [facility] | [facility] | [address] | | | TESTS | | | [...] + + + + | PRODUCT | [id number] | | [facility] | | | UNIT [...] + + + + | EXPIRATION | [id number] | | [facility] | | | DATE [...] + + + + | BLOOD | [id number] | | [facility] | | | PRODUCT [...] LABORATORY | [address] | [place] [address] | | | SERVICES, | [address] [...] + + + + | PRODUCT | [id number] | | [facility] | | | UNIT [...] + + + + | EXPIRATION | [id number] | | [facility] | | | DATE [...] + + + + | BLOOD | [id number] | | [facility] | | | PRODUCT [...] + + + + + | [facility] | [address] | [place] [address] | | | SERVICES, | [address] [...] | | | CITRATED | | | MARMARILEEAM | | | | | | ZELALEM HERRERA | | | | | | OF CARE | | | | | | TESTS | | + + + + + + | MAXIMUM | 69.8 | 55 - 70 mm | [facility] - | | | AMPLITUDE - | | | MARMARILEEAM | | | CITRATED | | | ZELALEM HERRERA | | | | | | OF CARE | | | | | | TESTS | | + + + + + + | LY 30 | 1.5 | 0 - 8 % | [facility] - | | | | | | MARYOLANDA | | | | | | ZELALEM HERRERA | | | | | | OF CARE | | | | | | TESTS | | + + + + + + | CLOT INDEX | 1.0 | -3 - 3 | [facility] - | | | | | | PATTY | | | | | | JAVIER, [...] + + | Performing | Address | City/[facility] | Phone Number | | Organization | | | | + + + + + | [facility] | [address] | [place], [place] | | | JAVIER POINT OF [facility] | [address] | [address] | | | TESTS | | | [...] LABORATORY | [address] | [place] [address] | | | SERVICES, SPECIAL | PARK [...] valves (2.5 - 3.5) INR APTT | HORACIO, CORE | | Therapeutic Range: (75 - 120) sec | | | Heparin levels of 0.35 - 0.7 U/mL | | + + + + + + + + | Performing | Address | City/State/Zipcode | Phone Number | | Organization | | | | + + + + + | [facility] | [address] | [place] [address] | | | HORACIO, CORE | JEAN [...] on prior | | | MRI dated 7/6/17. Paraspinal soft tissues: Unremarkable | | | [...] | | | Service: IP Intra Op [phone] [id number] - [id number] INTRAOPERATIVE NEURO | | | MONITORING IOM: [...] | | Clinical Neurophysiology Department Suggested CPT: 69995 - IOM | | | Remote x 3 hr(s) 87890 - Short Latency EP's Upper AND Lower | | | extremities 59779 - Central Motor EP's Upper AND Lower extremities | | | 75756 - Neuromuscular Junction Test Suggested Diagnosis: D43.4 [...] original | | | | | | [id number]) with cells | | | | | [...] seen | | | | | | by:Michel TuttleO. | | | | | | / Neuropathology | | | | | | fellowIrina Crystal, | | | | | | M.Gonzalo., Ph.D. / | | | | | | NeuropathologistT: | | | | | | 01/17/2017 AH | | | | | | Amendment seen by:Russel | | | | | | Dionne Bolton / | | | | | | Neuropathology | | | | | | Bubba Crystal, | | | | | | [...] | | | | cs determined by [facility] | | | | | | laboratories. [...] medical | | | | | | record#[id number]. | | | | | | A: [...] | | | | | in cassette B1.(DEVON) | | | | | | My [...] | + + + + + | [facility] | [address] | [place] [address] | | | PATHOLOGY | [address] [...] + + + + + | [facility] | [address] | [place] [address] | | | SPECIAL HORACIO | [address] | | | [...] + + + + + | [facility] | [address] | [place] [address] | | | SERVICES, CORE | JEAN [...] | | + +---------+ + + | [facility] RADIOLOGY | | | | | VOICE [...] | [facility] | [address] | [place] [address] | | | SERVICES, | [address] [...] LABORATORY | [address] | [place] [address] | | | SERVICES, | [address] [...] + + + + + | [facility] | [address] | [place] [address] | | | NINO LEONARD | JEAN [...] + + + + + | [facility] | [address] [facility] | [place] [address] | | | SERVICES, CORE | P[address] [...] + + + + + | [facility] | [address] [address] | [place] [address] | | | SERVICES, CORE | PARK [...] | LABORATORY | | | [place] | | | SERVICES, | | | [...] + + + + + | [facility] | [address] [facility] | [place] [address] | | | NINO LEONARD | JEAN [...] + + + + + | [facility] | [address] | [place] [address] | | | NINO LEONARD | JEAN [...] and new reporting units as of | [facility] | | 12/10/2013. | LABORATORY | | | SERVICES, NINO | + + + + + + + + | Performing | Address | City/State/Zipcode | Phone Number | | Organization | | | | + + + + + | [facility] | [address] [facility] | [place] [address] | | | SERVICES, CORE | JEAN [...] + | [facility] - | [address] | [place] [address] | | | [place] | | | [...] | + + + + + | [facility] | [address] | [place] [address] | | | HORACIO, NINO | JEAN [...] | [facility] | | | GRAVITY | Simpson performed by | | LABORATORY | | [...] LABORATORY | [address] | [place] [address] | | | HORACIO, NINO | JEAN [...] LABORATORY | [address] | [place] [address] | | | SERVICES, CORE | PARK [...] + + + + + | [facility] | [address] [facility] | [place] [address] | | | SERVICES, NINO | JEAN [...] At | + + + | [id number] This patient has registered at the | COLLECTIVE | | [facility] Emergency Department For more | MEDICAL | | information visit: | TECHNOLOGIES | | [email or web address] | | | [email or web address] ED Care Guidelines There are currently no ED Care Guidelines | | | in [facility] for this patient. Please check your facility's medical | | | records system. Recent Emergency Department Visit Summary Admit | | | Date Facility City State Type Major Type Diagnoses or Chief Complaint | | | Jan 11, 2017 [facility] [place] Emergency | | | Emergency 10,800. transfer Jan 11, 2017 [facility] | | | [facility] [place] Emergency Emergency Recent | | | Inpatient Visit Summary No recorded inpatient visits. E.D. Visit | | | Count (12 mo.) Facility Visits [facility] | | | [place] [facility] [address] [place] [address] | | | [facility] 1 Total 6 Note: Visits indicate total | | | known visits. Care Providers Provider PRC Type Phone Fax | | | Service Dates [facility] Primary Care | | | Current [facility] Primary Care Current | | | TIAN IBANEZUS Primary Care | | | Oct 16, [...] for | | | additional information. 2017 [employer]. - | | | [place], [place] - [email or web address] | | + + + + + | Procedure Note | + + | Service Account, Rtf Results Inbound - 01/11/2017 8:40 AM PDT Formatting of this | | note might be different from the original.LYNN?NOTIFICATION?01/11/2017 08:38?ANAID | | QIANA Parsons? patient has registered at the [facility] | | [place] [facility] For more information visit: | | [email or web address] ED Care | | GuidelinesThere are currently no ED Care Guidelines in [place] for this patient. Please | | check your facility's medical records system.Recent Emergency Department Visit | | SummaryAdmit Date Facility [facility] Type Major Type Diagnoses or Chief Complaint Jan | | 2016 [facility] [place] Emergency Emergency 10,800. | | transfer Jan 11, 2017 [facility] [place] Emergency Recent | | Inpatient Visit SummaryNo recorded inpatient visits. E.D. Visit Count (12 mo.)Facility | | Visits [facility] 2 [facility] 1 [facility] | | [address] 1 Total 6 Note: Visits indicate total known | | visits. Care ProvidersProvider PRC Type Phone Fax Service Dates DEVON VEGA | | [facility] Primary Care Current CLARE CAN Primary Care Current | | TIAN ANTOINE [facility] Oct 16, 2016 - | | Current [...] additional information. ? 2017 [employer] | | [place], [place] - [email or web address] | |[facility] 2 | |[facility] 1 | |[facility] 2 | |[facility] 1 | |Total 6 | |Note: Visits indicate total known visits. | | | |Care Providers | |Provider PRC Type Phone Fax Service Dates | |[facility] Primary Care Current | |[facility] | |TIAN ANTOINE [facility] Oct 16, 2016 - Current | | | |The above information is provided for the sole purpose of patient treatment. Use of this in formation beyond the terms of Data Sharing Memorandum of Understanding and License Agreement is prohibited. In | |certain cases not all visits may be represented. Consult the aforementioned facilities for additional information. | |? 2017 [employer] - [place], [place] - [email or web address] | + + + + + + + | Performing | Address | City/State/Zipcode | Phone Number | | Organization | | | | + + + + + | [employer] | [address], | [place], [place] | [phone] | | [employer] | [address] | [address] | | + + + + + [...] for venous thromboembolism | + + | Lower extremity weakness Other musculoskeletal symptoms referable to limbs | + + | Anxiety Anxiety state, unspecified | + + | Acute post-operative pain | + + | H/O urinary retention Personal history of other disorder of urinary system | + + | 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 | + + documented in this encounter Administered Medications + +--------+ +--------+------+------+ | Medication Order | MAR | Action | Dose | Rate | Site | | | Action | Date | | | | + +--------+ +--------+------+------+ | acetaminophen (TYLENOL) tablet | Given | 01/15/20 | 325 mg | | | | 325-650 mg 325-650 mg, oral, | | 17 12:47 | | | | | EVERY 6 HOURS NEEDED, Starting | | AM PDT | | | | | Miriam 01/11/17 at 1756, Until Sun | | | | | | | 01/14/17 at 0314, mild pain, | | | | | | | multimodal pain control, fever | | | | | | | greater than 38.5 degrees C | | | | | | + +--------+ +--------+------+------+ +-------+ +--------+---+---+ | Given | 01/14/20 | 650 mg | | | | | 17 2:21 | | | | | | AM PDT | | | | +-------+ +--------+---+---+ | Given | 01/13/20 | 650 mg | | | | | 17 3:45 | | | | | | [...] grams in NS | New Bag | 01/15/20 | 2 g | | | | (RTU) 2 g, intravenous, EVERY 8 | | 17 3:32 | | | | | HOURS, 3 doses, First dose (after | | PM PDT | | | | | last modification) on [facility] 01/13/17 | | | | | | | at 2300, Last dose on 01/14/17 | | | | | | | at 1500 | | | | | | + +---------+ +-----+---+---+ +---------+ +-----+---+---+ | New Bag | 01/15/20 | 2 g | | | | | 17 7:26 | | | | | | AM PDT | | | | +---------+ +-----+---+---+ | New Bag | 01/14/20 | 2 g | | | | | 17 11:15 | | | | | | PM PDT | | | | +---------+ +-----+---+---+ +---+---+ | | | +---+---+ + +-------+ +------+---+---+ | dexamethasone (DECADRON) tablet | Given | 01/13/20 | 2 mg | | | | 2 mg 2 mg, oral, EVERY 24 | | 17 10:23 | | | | | HOURS, First dose on [facility] 01/11/17 | | PM PDT | | | | | at 2315, Until Discontinued | | | | | | + +-------+ +------+---+---+ +-------+ +------+---+---+ | Given | 01/12/20 | 2 mg | | | | | 17 11:20 | | | | | | PM PDT | | | | +-------+ +------+---+---+ +---+---+ | | | +---+---+ + +-------+ +-------+---+---+ | diphenhydrAMINE (BENADRYL) | Given | 01/16/20 | 25 mg | | | | capsule 25 mg 25 mg, oral, EVERY | | 17 3:32 | | | | | 6 HOURS NEEDED, 3 doses, | | AM PDT | | | | | Starting 01/14/17 at 0016, | | | | | | | Until 01/15/17 at 0332, | | | | | | | itching | | | | | | + +-------+ +-------+---+---+ +-------+ +-------+---+---+ | Given | 01/15/20 | 25 mg | | | | | 17 8:05 | | | | | | PM PDT | | | | +-------+ +-------+---+---+ | Given | 01/15/20 | 25 mg | | | | | 17 12:47 | | | | | | AM [...] | | | | | dose on Sun01/11/17 at 1830, Until | | PM PDT [...] | enoxaparin (LOVENOX) injection | Given | 01/12/20 | 40 mg | | Abdomen | | 40 mg 40 mg, subcutaneous, EVERY | | 17 10:48 | | | | | EVENING, First dose on Miriam | | PM PDT | | | | | 01/11/17 at 2100, Until | | | | | | | Discontinued | | | | | | + +-------+ +-------+---+---------+ +---+---+ | | | +---+---+ [...] | gabapentin (NEURONTIN) capsule | Given | 01/16/20 | 300 mg | | | | 300 mg 300 mg, oral, THREE TIMES | | 17 10:00 | | | | | DAILY, First dose on Sun01/11/17 | | AM PDT | | | | | at 1800, Until Discontinued | | | | | | + +-------+ +--------+---+---+ +-------+ +--------+---+---+ | Given | 01/15/20 | 300 mg | | | | | 17 9:04 | | | | | | PM PDT | | | | +-------+ +--------+---+---+ | Given | 01/15/20 | 300 mg | | | | | 17 3:31 | | | | | | PM [...] | | | | First dose on 01/15/17 at | | PM PDT | | [...] gadoterate meglumine (DOTAREM) | IV Push | 01/12/20 | 15 mL | | | | 0.5 mmol/mL injection 15 mL 15 | | 17 1:30 | | | | | mL (rounded from 14.52 mL = 0.2 | | PM PDT | | | | | mL/kg | | | | | | | 72.6 kg), intravenous, ONCE, 1 | | | | | | | dose, [facility] 01/11/17 at 1330 | | | | | | + +---------+ +-------+---+---+ + +---+ | | | + +---+ | glycopyrrolate (ROBINUL) | | | injection 0.2 mg 0.2 mg, | | | intravenous, EVERY 2 HOURS | | | NEEDED, 3 doses, Starting Sun | | | 01/14/17 at 0220, Until [facility] 01/18/17 | | | at 2055, PRN for bradycardia < | | | 40 | | + +---+ | | | + +---+ + +-------+ +--------+---+---+ | HYDROmorphone (DILAUDID) | Given | 01/14/20 | 0.2 mg | | | | injection 0.2-0.5 mg 0.2-0.5 mg, | | 17 7:49 | | | | | intravenous, POSTPROCEDURE PRN, | | PM PDT | | | | | Starting 01/13/17 at 1552, | | | | | | | Until 01/13/17 at 2001, | | | | | | | moderate pain while in Phase I | | | | | | | Recovery | | | | | | + +-------+ +--------+---+---+ +---+---+ | | | +---+---+ + +-------+ +--------+---+---+ | HYDROmorphone (DILAUDID) | Given | 01/15/20 | 0.5 mg | | | | injection 0.2-0.5 mg 0.2-0.5 mg, | | 17 8:30 | | | | | intravenous, EVERY 2 HOURS | | AM PDT | | | | | NEEDED, Starting 01/13/17 at | | | | | | | 2010, Until 01/14/17 at 1125, | | | | | | | severe pain | | | | | | + +-------+ +--------+---+---+ +-------+ +--------+---+---+ | Given | 01/15/20 | 0.5 mg | | | | | 17 4:25 | | | | | | AM PDT | | | | +-------+ +--------+---+---+ | Given | 01/14/20 | 0.5 mg | | | | | 17 11:15 | | | | | | PM PDT | | | | +-------+ +--------+---+---+ +---+---+ | | | +---+---+ + +-------+ +------+---+---+ | HYDROmorphone (DILAUDID) tablet | Given | 01/15/20 | 2 mg | | | | 2 mg 2 mg, oral, ONCE, 1 dose, | | 17 1:24 | | | | | 01/14/17 at 1345 | | PM PDT | | | | + +-------+ +------+---+---+ +---+---+ | | | +---+---+ + +-------+ +------+---+---+ | HYDROmorphone (DILAUDID) tablet | Given | 01/15/20 | 2 mg | | | | 2-4 mg 2-4 mg, oral, EVERY 3 | | 17 12:35 | | | | | HOURS NEEDED, Starting Sun | | PM PDT | | | | | 01/14/17 at 1121, Until 01/14/17 | | | | | | | at 1312, moderate pain, severe | | | | | | | pain | | | | | | + +-------+ +------+---+---+ +-------+ +------+---+---+ | Given | 01/15/20 | 2 mg | | | | | 17 12:00 | | | | | | PM PDT | | | | +-------+ +------+---+---+ +---+---+ | | | +---+---+ + +-------+ +------+---+---+ | HYDROmorphone (DILAUDID) tablet | Given | 01/18/20 | 6 mg | | | | 2-6 mg 2-6 mg, oral, EVERY 3 | | 17 8:45 | | | | | HOURS NEEDED, Starting Sun | | PM PDT | | | | | 01/14/17 at 1312, Until 01/17/17 | | | | | | | at 2313, moderate pain, severe | | | | | | | pain | | | | | | + +-------+ +------+---+---+ +-------+ +------+---+---+ | Given | 01/18/20 | 6 mg | | | | | 17 5:42 | | | | | | PM PDT | | | | +-------+ +------+---+---+ | Given | 01/18/20 | [...] | | | | | 01/18/17 at 2055, moderate pain, | | | | | [...] + + + + + +---+ | lactated Ringers IV 50 mL/hr, | Rate/Dos | 01/15/20 | 50 mL/hr | 50 mL/hr | | | intravenous, CONTINUOUS, Starting | e Verify | 17 7:00 | | | | | 01/13/17 at 2145, Until Sun | | AM PDT | | | | | 01/14/17 at 0732 | | | | | | + + + + + +---+ + + + + +---+ | Rate/Dose Verify | 01/15/20 | 50 mL/hr | 50 mL/hr | | | | 17 6:00 | | | | | | AM PDT | | | | + + + + +---+ | Rate/Dose Verify | 01/15/20 | 50 mL/hr | 50 mL/hr | | | | 17 5:00 | | | | | | [...] | | | 1756, Until Sun01/18/17 at 2056, | | | | | [...] in water IV | New Bag | 01/15/20 | 2 g | | | | (RTU) 2 g 2 g, intravenous, | | 17 4:25 | | | | | NEEDED, Starting 01/14/17 at | | AM PDT | | | | | 0316, Until 01/14/17 at 1549, | | | | | | | magnesium level 1.6 - 2 mg/dL | | | | | | + +---------+ +-----+---+---+ +---+---+ | | | +---+---+ + +-------+ +------+---+---+ | morphine injection 2 mg 2 mg, | Given | 01/12/20 | 2 mg | | | | intravenous, ONCE, 1 dose, Miriam | | 17 2:58 | | | | | 01/11/17 at 1515 | | PM PDT | | | [...] | oxyCODONE (immediate release) | Given | 01/14/20 | 5 mg | | | | (ROXICODONE) tablet 5-15 mg 5-15 | | 17 10:17 | | | | | mg, oral, EVERY 3 HOURS | | PM PDT | | | | | NEEDED, Starting [facility] 01/11/17 at | | | | | | | 1756, Until 01/14/17 at 1125, | | | | | | | moderate to severe pain | | | | | | + +-------+ +------+---+---+ +-------+ +------+---+---+ | Given | 01/14/20 | 5 mg | | | | | 17 8:54 | | | | | | PM PDT | | | | +-------+ +------+---+---+ | Given | 01/12/20 | 5 mg | | | | | 17 8:34 | | | | | | PM PDT | | | | +-------+ +------+---+---+ +---+---+ | | | +---+---+ + +-------+ +------+---+---+ | polyethylene glycol (MIRALAX) | Given | 01/15/20 | 17 g | | | | packet 17 g 17 g, oral, TWICE | | 17 8:04 | | | | | DAILY, First dose on Sun01/11/17 | | PM PDT | | | | | at 2100, Until Discontinued | | | | | | + +-------+ +------+---+---+ +-------+ +------+---+---+ | Given | 01/15/20 | 17 g | | | | | 17 8:30 | | | | | | AM PDT | | | | +-------+ +------+---+---+ | Given | 01/14/20 | 17 g | | | | | 17 8:56 | | | | | | PM [...] | | +---+---+ + +-------+ +--------+---+---+ | potassium chloride SR (K-DUR) | Given | 01/16/20 | 20 mEq | | | | tablet 20 mEq 20 mEq, oral, | | 17 11:59 | | | | | ONCE, 1 dose, 01/15/17 at 1200 | | AM PDT | | | | + +-------+ +--------+---+---+ +---+---+ | | | +---+---+ + +-------+ +--------+---+---+ | potassium chloride SR (K-DUR) | Given | 01/15/20 | 40 mEq | | | | tablet 20-40 mEq 20-40 mEq, | | 17 4:24 | | | | | oral, NEEDED, Starting Sun | | AM PDT | | | | | 01/14/17 at 0316, Until 01/14/17 | | | | | | | at 1549, hypokalemia per | | | | | | | protocol. See administration | | | | | | | instructions. | | | | | | + +-------+ +--------+---+---+ +---+---+ | | | +---+---+ + +-------+ +--------+---+---+ | potassium chloride SR (K-DUR) | Given | 01/16/20 | 40 mEq | | | | tablet 40 mEq 40 mEq, oral, | | 17 2:46 | | | | | ONCE, 1 dose, 01/15/17 at 0230 | | AM PDT | | | | + +-------+ +--------+---+---+ [...] | | | | | NEEDED, Starting [facility] 01/11/17 at | | AM PDT | | | | | 1756, Until Sun01/18/17 at 2056, | | | | | [...]
--- OUTSIDE RECORDS SUMMARY | ~2019-06-26 | XMS | Encounter Summary ---
Demographics + + + | Address | [address] | | | [place] [address] | + + + | Home Phone [...] Team Providers + +------+ + | Care Porcelain Enameler Name | Role | Phone | + +------+ + | No Pcp Per Patient | PCP | Unavailable | + +------+ + Encounter Details +--------+ + + + + | Date | Type | Department | Care Team | Description | +--------+ + + + + | 11/26/ | Procedure | Radiology/Imaging | | | | 2017 | Pass | Lab at [facility] [address] | | | | | | [address] Mailcode: | | | | | | [address] [facility] | | | | | | Health and Healing, | | | | | | [facility] 1, 3rd | | | | | | Floor [place], [place] | | | | | | [address] | | | | | | [phone] | | | +--------+ + + + [...]
--- OUTSIDE RECORDS SUMMARY | ~2019-06-26 | XMS | Encounter Summary ---
Demographics + + + | Address | [address] | | | [place] [address] | + + + | Home Phone [...] Team Providers + +------+ + | Care Teacher Aide Name | Role | Phone | + [...] | | MRI SPINE | [place], | Mailcode: | | | | | LUMBAR [address] | [place] | [address] | | | | | [place] | [address] | [place] | | | | | MRI, LUMBAR | Phone: | Research | | | | | SPINE COMBO | [phone] | Center | | | | | | Fax: | [place], [place] | | | | | | [phone] | [address] | | | | | | | Phone: | | | | | | | [phone] | | | | | | | Fax: | | | | | | | [phone] | +--------+--------+ + + + + Reason [...] | | | | MRI SPINE | [facility], | Mailcode: | | | | | LUMBAR [address] | [place] | [address] | | | | | [place] | [address] | [place] | | | | | MRI, LUMBAR | Phone: | Research | | | | | SPINE COMBO | [phone] | Center | | | | | | Fax: | [place], [place] | | | | | | [phone] | [address] | | | | | | | Phone: | | | | | | | [phone] | | | | | | | Fax: | | | | | | | [phone] | +--------+--------+ + + + + Encounter Details +--------+ + + + + | Date | Type | Department | Care Team | Description | +--------+ + + + + | 11/29/ | Hospital | Radiology/Imaging | Raegan Doss, | | | 2018 | Encounter | Lab at [facility] [address] | PA-C [address] | | | | | [address] Mailcode: | Ave [facility] [place] | | | | | [address] | [address] | | | | | Health and Healing, | [phone] | | | | | [facility] , 3rd | | | | | | Floor [place], [place] | | | | | | [address] | | | | | | [phone] | | | +--------+ + + + [...] + + + documented in this encounter Medications at Time [...] | | | | | | dose, [facility] 11/29/17 at 1845 | | | | | | + +---------+ +-------+------+------+ +---+---+ | | | +---+---+ documented in this encounter"
--- OUTSIDE RECORDS SUMMARY | ~2019-06-26 | XMS | Encounter Summary ---
Demographics + + + | Address | [address] | | | [place] [address] | + + + | Home Phone [...] Team Providers + +------+ + | Care Fiberglass Roller Name | Role | Phone | + +------+ + | No Pcp Per Patient | PCP | Unavailable | + +------+ + Encounter Details +--------+ + + + + | Date | Type | Department | Care Team | Description | +--------+ + + + + | 10/01/ | Procedure | Diagnostic Imaging | | | | 2018 | Pass | Services at [facility] | | | | | | [address] | | | | | | Marla Abdul Mailcode: | | | | | | [address] | | | | | | [facility] | | | | | | [place], [place] | | | | | | [address] | | | | | | [phone] | | | +--------+ + + + [...]
--- OUTSIDE RECORDS SUMMARY | ~2019-06-26 | XMS | Encounter Summary ---
Demographics + + + | Address | [address] | | | [place] [address] | + + + | Home Phone [...] Providers + +------+ + | Care Senior Infrastructure Architect Name | Role | Phone | + +------+ + | Tiff Chapin | PCP | | + +------+ + Encounter Details +--------+ + + + + | Date | Type | Department | Care Team | Description | +--------+ + + + + | 09/08/ | Document-Sc | Health Information | Unknown . | | | 2016 | anned | Services [id number] | | | | | | [address] | | | | | | Mailcode: [address]A | | | | | | [facility] | | | | | | [place], [place] | | | | | | [address] | | | | | | [phone] | | | +--------+ + + + [...]
--- OUTSIDE RECORDS SUMMARY | ~2019-06-26 | XMS | Encounter Summary ---
Demographics + + + | Address | [address] | | | [place] [address] | + + + | Home Phone [...] Author + + + | Author | [facility] | + + + | Organization | [facility] | + + + | [...] Team Providers + +------+ + | Care Fur Blower Name | Role | Phone | + +------+ + | No Pcp Per Patient | PCP | Unavailable | + +------+ + Encounter Details +--------+ + + + + | Date | Type | Department | Care Team | Description | +--------+ + + + + | 06/07/ | Document-Sc | Health Information | Ada Parisi | | | 2014 | anned | [address] | [phone] | | | | | [address] | | | | | | Mailcode: [address] | | | | | | [facility] | | | | | | [place], [place] | | | | | | [address] | | | | | | [phone] | | | +--------+ + + + [...]
--- OUTSIDE RECORDS SUMMARY | ~2019-06-26 | XMS | Encounter Summary ---
Demographics + + + | Address | [address] | | | [place] [address] | + + + | Home Phone | | + + + | Preferred Language | Unknown | + + + | Marital Status | Single | + + + | Sikhism Affiliation | NON | + + + [...] Team Providers + +------+ + | Care Microfilm Duplicating Unit Supervisor Name | Role | Phone | [...] + + | 05/07/ | Hospital | [facility] [address] | Christine Gilbert MD | | | 2014 - | Encounter | [address] | [address] | | | | | [id number] [facility] | [facility] | | | 05/08/ | | HOSPITAL [place], | [place], [place] | | | 2015 | | [place] [address] | [address] | | | | | [phone] | [phone] | | | | | | | | | | | | Rajinder Luis MD | | | | | | [address] | | | | | | [place], [place] | | | | | | [address] | | | | | | [phone] | | | | | | | [...] Rajinder Luis MD PCP: PATRIC Todd Service: [facility] Neurosurgery Diagnoses Principal Final Diagnosis: Tumor of [...] Instructions/Tests: Please call the Neurosurgery clinic at [phone] with any questions Sunday to Sunday 8 A M - 4 PM. After hours, call [facility] at [phone] and ask to speak with the Neurosurgery resi dent environmental coordinator if you have any of the following: - Difficulty breathing or shortness of breath ; - Excessive bleeding or drainage from incision sites; - Fevers, chills, sweats; - Persiste nt nausea or vomiting; - Change in mental status; - New deficits in sensation or strength Condition On Discharge: Good Vital Signs at discharge as appropriate: BP: 116/68 mmHg (05/08/15 1555) Pulse: 57 (05/08/15 1555) Resp: 16 (1 155) Weight: 86.3 kg [...] RLE symptoms for 1.5 years, referred to [facility] ER by Dr Garrison at [place] for MRI finding of intramedullary th oracic [...] left, toes downgoing on left, toes m [place] to plantar stim on right Labs: Lab [...] RLE symptoms for 1.5 years, referred to [facility] ER by Dr Garrison at [place] for MRI finding of intramedullary th oracic [...] Luis next week. Signed: Chirag Thorne MD, automatic bow maker machine tender Neurological Surgery [facility] Pager: [phone] Jay Emmanuel MD - 05/08/2015 5:31 PM PDTNeurosurgery Preoperative [...] Jay Still MD PGY-2 Neurological Surgery Pager [phone] documented in this enco unter Plan of Treatment Not on filedocumented as [...] | | | | | | YONI MDAuthor: SUMEET | | | | | | [...] | | + +---------+ + + | [facility] DEPARTMENT OF | | | | | [...] | | | | | T2 and [id number] body | | | | | | [...] | | | | | | ROCIO V YONI, | | | | | | MDAuthor: [...] [facility] | [address] | [place] [address] | | | SERVICES, CORE | PARK [...] LABORATORY | [address] | [place] [address] | | | SERVICES, CORE | PARK [...] | | | LABORATORY | | | [facility] | | | SERVICES, | | | [...] MDRD equation recommended by the | [facility] | | National Kidney Disease Education Program. [...] + + + + + | [facility] | [address] | [place] [address] | | | NINO LEONARD | [address] | | | + + + + + PRODUCT - PLATELET PHERESIS LEUKOREDUCED (05/08/2015 2:08 AM PDT) + + + + + + | Component | Value | Ref Range | Performed | Pathologist | | | | | At | Signature | + + + + + + | PRODUCT | [id number] | | [facility] | | | DESCRIPTION | | | DEPARTMENT | | | | | | OF | | | | | | PATHOLOGY | | + + + + + + | PRODUCT | [id number] | | [facility] | | | UNIT [...] + + + + | EXPIRATION | [id number] | | [facility] | | | DATE [...] + + + + | BLOOD | [id number] | | [facility] | | | PRODUCT [...] OF | [address] | [place] [address] | | | PATHOLOGY | [address] [...] + + + + + | [facility] | [address] | [place] [address] | | | SERVICES, CORE | JEAN [...] LABORATORY | [address] | [place] [address] | | | SERVICES, | [address] [...] | + + + + + | [facility] | [address] | [place] [address] | | | SERVICES, | [address] [...] | + + + + + | [facility] | [address] | [place] [address] | | | SERVICES, CORE | PARK [...] | + + + + + | [facility] | [address] | [place] [address] | | | SERVICES, CORE | PARK [...] | | | LABORATORY | | | [address] | | | SERVICES, | | | [...] | + + + + + | [facility] | [address] | [place] [address] | | | SERVICES, CORE | JEAN [...]
--- OUTSIDE RECORDS SUMMARY | ~2019-06-26 | XMS | Encounter Summary ---
Demographics + + + | Address | [address] | | | [place] [address] | + + + | Home Phone | | + + + | Preferred Language | Unknown | + + + | Marital Status | Single | + + + | Religion Affiliation | NON | + + + [...] Team Providers + +------+ + | Care Motion Picture Film Examiner Name | Role | Phone | + +------+ + | Clare Mendoza MD | PCP | | + +------+ + Encounter Details +--------+ + + + + | Date | Type | Department | Care Team | Description | +--------+ + + + + | 01/12/ | ED Progress | [facility] | Ching Mora, | ED Progress Note | | 2017 | | [address] | [address] | | | | Note-Transc | [place], [place] | [place], [place] | | | | ribed | [address] | [address] | | | | | | | [...]
--- OUTSIDE RECORDS SUMMARY | ~2019-06-26 | XMS | Encounter Summary ---
Demographics + + + | Address | [address] | | | [place] [address] | + + + | Home Phone [...] Author + + + | Author | [facility] | + + + | Organization | [facility] | + + + | [...] Team Providers + +------+ + | Care Mirror Silverer Name | Role | Phone | + [...] [address] | | | | | [facility] | [address], | | | | | Hospital Admitting | [place] [address] | | | | | Desk Located on the | [phone] | | | | | 9th floor | | | | | | [place], [place] | Rosemary Quesada MD | | | | | [address] | [address] | | | | | | [address] | | | | | | [place], [place] | | | | | | [address] | | | | | | [phone] | | | | | | | [...] At | + + + | Vinny Glibert MD 01/13/2017 3:37 PM Procedure Reason for [...]
--- OUTSIDE RECORDS SUMMARY | ~2019-06-26 | XMS | Encounter Summary ---
Demographics + + + | Address | [address] | | | [place] [address] | + + + | Home Phone [...] Team Providers + +------+ + | Care Hand Tube Winder Name | Role | Phone | + [...] | spinal cord | [place], [place] | [place], [place] | | | | | Procedures | [address] | [address] | | | | | REQUEST TO | Phone: | Phone: | | | | | SURGERY | [phone] | [phone] | | | | | SEED PELLETER | Fax: | Fax: | | | | | [place] BX/EXCIS | [phone] | [phone] | | | | | SPINAL | | | | | | | TUMOR,XDURAL | | | | | | | ,THOR [place] | | | | | | | BX/EXCIS | | | | | | | SPIN | | | | | | | MARCELINO,INDUR,XM | | | | | | | ED,THOR [place] | | | | | | | BX/EXCIS | | | | | | | SPIN | | | | | | | MARCELINO,INDUR,IN | | | | | | | MED,THOR [place] | | | | | | | MICROSURG | | | | | | | TECHNIQUES,R | | | | | | | EQ OPER | | | | | | | MICROSCOPE | | | +--------+--------+ + + + + Reason for Visit + + + | Reason | Comments | + + + | Return Patient | | + + + Consultation (Routine) [...] | Surgery | Spinal cord | [facility] | Rajinder Fisher MD | | | | | tumor ED | [address] | [address] | | | | | f/u T5-10 | [address] | Ave | | | | | spinal cord | Rd [facility] | [place], [place] | | | | | tumor with | Hospital | [address] | | | | | right leg | [place], [place] | Phone: | | | | | weakness. | [address] | [phone] | | | | | | Phone: | Fax: | | | | | | [phone] | [phone] | +--------+--------+ + + + + Encounter Details +--------+---------+ + + + | Date | Type | Department | Care Team | Description | +--------+---------+ + + + | 01/16/ | Office | Neurosurgery at | Rajinder Luis MD | Spinal cord tumor | | 2016 | Visit | [facility] [address] | [address] | (Primary Dx); | | | | Ave Mailcode: CH8N | [place], [place] | Thoracic spine tumor | | | | [facility] | [address] | | | | | and [place], | [phone] | | | | | [facility] | | | | | | Floor [place], [place] | | | | | | [address] | | | | | | [phone] | | | +--------+---------+ + + + [...] + + + + | Weight | 83.9 kg (185 lb) | 01/17/2016 1:20 PM | | | | | PDT | | + + + + + | Height | 160 cm (5' 3") | 01/17/2016 1:20 PM | | | | | PDT | | + + + + + | Body Mass Index | 32.77 | 01/17/2016 1:20 PM | | | | | PDT | | + + + + + documented in this encounter Progress Notes Rajinder Luis MD - 01/17/2016 7:09 PM PDT Follow up clinic visit Ms. To is a 25 y.o. year old female who was most recently seen on 11/08/15. 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 A T8/9 laminectomy was performed on 05/13/2015 for presenting symptoms consisti ng of right leg weakness. A subsequent surgery was necessary in the form of right sided hem ilaminectomies at T9/10 for acute bilateral lower extremity weakness on 09/10/2015. She retur ns the clinic for a discussion in regards to her recent repeat follow-up MRI with contrast o f the thoracic spine. She has returned back to a full functional baseline such that she is a ble to walk without any assistive devices she still has some occasional nonspecific movement s in her right leg which seems to be spastic from time to time. Since her last visit she has permanently relocated to a living arrangement closer to [facility]. She now lives in [place]. She is accompanied by her almost 1-year-old daughter and gaston garcia with her who are also well. Overall she feels Well. She does occasionally notice some pain which she localizes to the area between the 2 incisions of her back In between her shoulder blades . It causes her low bit more discomfort on certain movements and postures. She denies any radiculopathy into her chest or lower extremities. She has been off the gabapentin for about a week and this has resulted in her feeling that her legs are A bit more heavier. She also feels that she has l ess control in her right leg. They seem to be "restless." PHYSICAL EXAM Strength in the upper and lower extremities with 5 out of 5 strength Exceptions are right EHL 3 out of 5, Hip flexors on the right is 3 out of 5 Reflexes are hyperreflexic in bilateral lower extremities with the right greater than the l eft 4 beats of clonus is appreciated in the right lower extremity. 3 beats of clonus in the lef t Posterior incisions are well-healed no evidence of any fluctuance or purulence MEDICATIONS Outpatient Prescriptions Marked as Taking for the 01/17/16 encounter (Office Visit) with Casimiro Luis MD Medication Sig Dispense Refill baclofen 10 mg oral tablet Take 1 tablet by mouth four times daily. Indications: MUSCLE SPASTICITY OF SPINAL ORIGIN 135 tablet 0 gabapentin 300 mg oral capsule Take 3 capsules by mouth three times daily. Indications: NEUROPATHIC PAIN, Restless Legs Syndrome 1 capsule 2 traZODone 50 mg oral tablet Take 0.5 tablets by mouth once daily at bedtime as needed. zolpidem 5 mg oral tablet Take 1 tablet by mouth once daily at bedtime as needed. 20 ta blet 0 RADIOLOGY 2 discrete areas of enhancement of the spinal cord adjacent to the prior resection cavities . ASSESSMENT intrinsic spinal cord tumor PLAN Matt is a 25-year-old woman with now 2 surgeries of her thoracic spine to treat the intri nsic spinal cord tumor extending from T4 down to T10. The follow-up imaging today demonstrat es some enhancing region of likely recurrence/residual disease. Given the fact that she ove rall has done quite well and is continuing to improve, I discussed with her the possibility that surgery would be Best performed on a scheduled elective basis versus an emergent basis which has been the prior to surgeries. Although understandably frustrating, she understand s the rationale leading up to our discussion today. Discussions were also centered around th e possibility of her becoming paralyzed as a result of now a third surgery on her spinal cor d. Considerations were given in regards to a possible destabilization of her thoracic spine requiring instrumentation. I will place an authorization for surgery request and asked that she return to the clinic i n about 2-3 weeks for an additional discussion clarifying thoughts and concerns in regards t o a surgical intervention. She would like to proceed with a surgical discussion in the near future. I also discussed w ith her presenting her case to the neuro-oncology tumor Board as well. Raijnder Luis MD I spent 20 minutes [id number] with the patient. I spent more than 50% of this visit in co ordination of care and counseling in which we discussed diagnosis, treatment, imaging studie s and follow-up. documented in this enc ounter Plan of [...]
--- OUTSIDE RECORDS SUMMARY | ~2019-06-26 | XMS | Encounter Summary ---
Demographics + + + | Address | [address] | | | [place] [address] | + + + | Home Phone [...] Team Providers + +------+ + | Care Float Tender Name | Role | Phone | [...] | Event | [address] | [address] | | | | | [facility] | [address] | | | | | Hospital Admitting | [place], [place] | | | | | Desk Located on the | [address] | | | | | 9th floor | [phone] | | | | | [place], [place] | | | | | | [address] | Ray Rubin, | | | | | | [address] | | | | | | [address] | | | | | | [place], [place] | | | | | | [address] | | | | | | [phone] | | | | | | | [...] + + + | Periph | [facility]; Left; | 09/09/151901 by | 09/11/151658 by [...] | | | Starting Miriam 09/09/15 at 2043, | | PM PST | | | [...] 11:43 | | | | | Starting [facility] 09/09/15 at 2343, | | PM PST | | | | | Until [facility] 09/09/15 at 2357 | | | | [...] | | | | | 09/09/15 at 1957, Until Miriam 09/09/15 | | PM PST | | | | | at 2356, Neuromuscular block | | | | | | + +-------+ +-------+---+---+ +---+---+ | | | +---+---+ + +---------+ + +---+---+ | SUFentanil INF INTRAPROCEDURE | New Bag | 09/09/19 | 0.3 | | | | CONTINUOUS PRN, Starting Miriam | | 16 8:46 | mcg/kg/h | | | | 09/09/15 at 2045, Until Miriam 09/09/15 | | PM PST | r | | | | at 2356 | | | | | | + +---------+ + +---+---+ +---+---+ | | | +---+---+ documented in this encounter"
--- OUTSIDE RECORDS SUMMARY | ~2019-06-26 | XMS | Clinical Summary ---
Demographics + + + | Address | [address] | | | [place] [address] | + + + | Home Phone | | + + + | Preferred Language | Unknown | + + + | Marital Status | Unknown | + + + | Episcopal Affiliation | Unknown | + + + | Race | Unknown | + + + | Ethnic Group | Unknown | + + + Author + + + | Author | [facility] | | | and [place] | + + + | Organization | [facility] | | | and [...] [place], [place] | | | | | [address] | | + + + + + Care Team Providers + +------+ + | Care Refuge Worker Name | Role | Phone | [...] | [employer] | [employer] | [id number] | 05/06/ | [phone] | | [employer] | | MEDICAID HMO [...] | | 6 (Home) | [place] [address] | + +--------+ +--------+ + + | Matt Fagan T | Person | Self | [birth year] | [address] | | | al/Fam | | 1990 | [phone] | [address] | | | mehul | | | 6 (Home) | [place] [address] | + +--------+ +--------+ + + Advance Directives + + + + + | Type | Date Recorded | Patient | Explanation | | | | Lead Installer | | + + + + + | Power of | | | | | Interventional Physician | | | | + + + + + | Advance | | | | | Directive | | | | + + + + +"
--- OUTSIDE RECORDS SUMMARY | ~2019-06-26 | XMS | Encounter Summary ---
Demographics + + + | Address | [address] | | | [place] [address] | + + + | Home Phone [...] Team Providers + +------+ + | Care Hammer Driver Name | Role | Phone | + +------+ + | No Pcp Per Patient | PCP | Unavailable | + +------+ + Reason for Visit +--------+ + | Reason | Comments | +--------+ + | Fever | 102.2 | +--------+ + Encounter Details +--------+ + + + + | Date | Type | Department | Care Team | Description | +--------+ + + + + | 03/03/ | Telephone | Neurosurgery at | Rajinder Luis MD | Fever (102.2) | | 2016 | | [facility] [address] | [address] | | | | | Ave Mailcode: CH8N | [place], [place] | | | | | [facility] | [address] | | | | | and Healing, | [phone] | | | | | | | | | | | Floor [place], [place] | | | | | | [address] | | | | | | [phone] | | | +--------+ + + + [...]
--- OUTSIDE RECORDS SUMMARY | ~2019-06-26 | XMS | Encounter Summary ---
Demographics + + + | Address | [address] | | | [place] [address] | + + + | Home Phone [...] Team Providers + +------+ + | Care Regulatory Internship Name | Role | Phone | + [...] spine tumor | PA[address]C [address] | [address] | | | | | Procedures | [address] | Rd | | | | | MRI SPINE | [place], | Mailcode: | | | | | THORACIC WWO | [place] | [address] | | | | | CONTRAST | [address] | [place] | | | | | [place] MRI, | Phone: | Research | | | | | DORSAL SPINE | [phone] | Center | | | | | COMBO | Fax: | [place], [place] | | | | | | [phone] | [address] | | | | | | | Phone: | | | | | | | [phone] | | | | | | | Fax: | | | | | | | [phone] | +--------+--------+ + + + + Reason [...] [address] | | | | | [place] EST | [facility] | [place], [place] | | | | | PATIENT | Rd | [address] | | | | | LEVEL V | [place], [place] | Phone: | | | | | | [address] | [phone] | | | | | | | Fax: | | | | | | | [phone] | +--------+--------+ + + + + Encounter Details +--------+---------+ + + + | Date | Type | Department | Care Team | Description | +--------+---------+ + + + | 06/04/ | Office | Spine Center at | Raegan Doss, | Thoracic spine tumor | | 2017 | Visit | [facility] [address] | PA-C [address] | (Primary Dx) | | | | Ave Mailcode: | [place], [place] | | | | | [facility] | [address] | | | | | and [place], | [phone] | | | | | [place] [address] | | | | | | [place], [place] | | | | | | [address] | | | | | | [phone] | | | +--------+---------+ + + + [...] strength and bowel/bladder has been quite stable sin e her last visit in February with [...] Alert, oriented x3. Speech clear, fluent. Approx 5fdp1sw firm nodule Sensation: RLE - LT sensation [...] for routine tumor surveillance [facility] [address] [address] documented in this encounter Plan [...] 10:35 PM Preliminary: | | | Shahab Eilzabeth MD | | + + + + [...] report as now presented. Final signature: Thalia Luis | 11/26/2017 10:35 PM Preliminary: Shahab Elizabeth [...]
--- OUTSIDE RECORDS SUMMARY | ~2019-06-26 | XMS | Encounter Summary ---
Demographics + + + | Address | [address] | | | [place] [address] | + + + | Home Phone [...] + + + | Author | [facility] | + + + | Organization | [facility] | + + + | [...] Team Providers + +------+ + | Care Truck Switcher Name | Role | Phone | + [...] | Event | [address] | [address] | | | | | [facility] | [address] | | | | | Hospital Admitting | [place], [place] | | | | | Desk Located on the | [address] | | | | | 9th floor | [phone] | | | | | [place], [place] | | | | | | [address] | | | +--------+ + + + [...] Cuffed; 10/03/18; 1901 | MD Lizette | PERFUME AND TOILET WATER MAKER | +--------+ + + + | Urethr [...] | | | Until Miriam 10/03/18 at 2058 | | | | [...] | | | | | PRN, Starting [facility] 10/03/18 at | | PM PDT [...]
--- OUTSIDE RECORDS SUMMARY | ~2019-06-26 | XMS | Encounter Summary ---
Demographics + + + | Address | [address] | | | [place] [address] | + + + | Home Phone [...] Author + + + | Author | [facility] | + + + | Organization | [facility] | + + + | Address [...] Providers + +------+ + | Care Event Coordinator Marketing And Sales Name | Role | Phone | + [...] [address] | | | | | [facility] | [address]la [address] [place], | | | | | Hospital Admitting | [place] [address] | | | | | Desk Located on the | [phone] | | | | | 9th floor | | | | | | [place], [place] | Rosemary Quesada MD | | | | | [address] | [address] | | | | | | [address] | | | | | | [place], [place] | | | | | | [address] | | | | | | [phone] | | | | | | | [...]
--- OUTSIDE RECORDS SUMMARY | ~2019-06-26 | XMS | Encounter Summary ---
Demographics + + + | Address | [address] | | | [place] [address] | + + + | Home Phone [...] Providers + +------+ + | Care Hand Flesher Name | Role | Phone | + [...] | | | | Mailcode: CH6A | [facility] | | | | | [place], [place] | [place], [place] | | | | | [address] | [address] | | | | | [phone] | | | +--------+ + + + [...]
--- OUTSIDE RECORDS SUMMARY | ~2019-06-26 | XMS | Encounter Summary ---
Demographics + + + | Address | [address] | | | [place] [address] | + + + | Home Phone [...] Team Providers + +------+ + | Care Garbage Person Name | Role | Phone | + +------+ + | Clare Mendoza MD | PCP | | + +------+ + Encounter Details +--------+ + + + + | Date | Type | Department | Care Team | Description | +--------+ + + + + | 12/04/ | Documentati | Spine Center at | Raegan Doss, | | | 2018 | on | [facility] [address] | PA-C [address] | | | | | [place] Mailcode: | [place], [place] | | | | | [facility] | [address] | | | | | and [place], | [phone] | | | | | [place] [address] | | | | | | [place], [place] | | | | | | [address] | | | | | | [phone] | | | +--------+ + + + [...]
--- OUTSIDE RECORDS SUMMARY | ~2019-06-26 | XMS | Encounter Summary ---
Demographics + + + | Address | [address] | | | [place] [address] | + + + | Home Phone [...] Author | [facility] | + + + | Organization | [facility] | + + + | Address | [...] Team Providers + +------+ + | Care Vendor Relationship Manager Name | Role | Phone | + +------+ + | Clare Mendoza MD | PCP | | + +------+ + Encounter Details +--------+ + + + + | Date | Type | Department | Care Team | Description | +--------+ + + + + | 02/14/ | Knock Out Hand | Spine Center at | Raegan Doss, | | | 2017 | | [facility] [address] | PA-C [address] | | | | | [place] Mailcode: | [place], [place] | | | | | [facility] | [address] | | | | | and [place], | [phone] | | | | | [place] [address] | | | | | | [place], [place] | | | | | | [address] | | | | | | [phone] | | | +--------+ + + + [...]
--- OUTSIDE RECORDS SUMMARY | ~2019-06-26 | XMS | Encounter Summary ---
Demographics + + + | Address | [address] | | | [place] [address] | + + + | Home Phone [...] Providers + +------+ + | Care Senior Tax Accountant Name | Role | Phone | + [...] | Event | [address] | [address] | | | | | [facility] | [address] | | | | | Hospital Admitting | [place], [place] | | | | | Desk Located on the | [address] | | | | | 9th floor | [phone] | | | | | [place], [place] | | | | | | [address] | Raegan Kaufman, | | | | | | ,PhD [address] | | | | | | [address] | | | | | | [place], [place] | | | | | | [address] | | | | | | [phone] | | | | | | | | +--------+ + + + + Anesthesia Record + + + + + | Procedure Name | Responsible | Anesthesia Start | Anesthesia Stop Time | | | Anesthesiologist | Time | | + + + + + | THORACIC LAMINECTOMY | Stephie Andres MD | 05/13/151501 | 05/13/151951 | | [...] | g; 05/14/15; 0745; Site problems | Raegna Kaufman, | Genesis Antoine, | | IV [...] 09/15/15; 1307 | Donal Patel RN | Wnedi Choi RN | +--------+ + + + [...] 6:27 | | | | | Starting Miriam 05/13/15 at 1827, | | PM PST | | | | | Until Miriam 05/13/15 at 1945, | | | | | | | sedation | | | | | | + +-------+ +--------+---+---+ +---+---+ | | | +---+---+ + + + +---+---+---+ | lactated ringers IV | given by | 05/13/20 | | | | | INTRAPROCEDURE CONTINUOUS PRN, | | 15 7:12 | | | | | Starting Miriam 05/13/15 at 1500, | anesthes | PM [...] | | | | at 1830, Until Sun05/13/15 at | | | | | | [...] PST | | | | | Until Sun05/13/15 at 1945 | iology | | | [...]
--- OUTSIDE RECORDS SUMMARY | ~2019-06-26 | XMS | Encounter Summary ---
Demographics + + + | Address | [address] | | | [place] [address] | + + + | Home Phone [...] Team Providers + +------+ + | Care Debridging Machine Operator Name | Role | Phone [...] | 2018 | Pass | Services at [facility] | | | | | | [address] | | | | | | [place]la Abdul Mailcode: | | | | | | [address] | | | | | | [facility] | | | | | | [place], [place] | | | | | | [address] | | | | | | [phone] | | | +--------+ + + + [...]
--- OUTSIDE RECORDS SUMMARY | ~2019-06-26 | XMS | Encounter Summary ---
Demographics + + + | Address | [address] | | | [place] [address] | + + + | Home Phone [...] Team Providers + +------+ + | Care Regulator Assembler Name | Role | Phone | [...] | | | Procedures | [place] | [address] | | | | | MRI SPINE | [address] | Phone: | | | | | THORACIC WWO | Phone: | [phone] | | | | | CONTRAST | [phone] | Fax: | | | | | [place] [facility], | Fax: | [phone] | | | | | DORSAL SPINE | [phone] | | | | | | COMBO | | | +--------+--------+ + + + + Reason for Visit +---------+ + | Reason | Comments | +---------+ + | Post Op | 8wk post op, Thoracic laminectomy and resection of spinal cord | | | tumor | +---------+ + PROC - Inpatient Surgery (Routine) +--------+--------+ + + + + | Status | Reason | Specialty | Diagnoses / | Referred By | Referred To | | | | | Procedures | Contact | Contact | +--------+--------+ + + + + | Closed | | Neurological | Diagnoses | Luis, | Luis, | | | | Surgery | Neoplasm of | Rajinder Fisher MD | Rajinder Fisher MD | | | | | uncertain | [address] | | | | | behavior of | [address] | Ave | | | | | spinal cord | [place], [place] | [place], [place] | | | | | Procedures | [address] | [address] | | | | | REQUEST TO | Phone: | Phone: | | | | | SURGERY | [phone] | [phone] | | | | | [employer] | Fax: | Fax: | | | | | [place] [facility] | [phone] | [phone] | | | | | SPIN | | | | | | | [place] | | | | | | | [place] | | | | | | | [...] Description | +--------+---------+ + + + | 07/12/ | Office | Neurosurgery at | Raegan Doss, | Dysuria (Primary | | 2016 | Visit | [facility] [address] | PA-C [address] | Dx); Spinal cord | | | | Ave Mailcode: CH8N | [place], [place] | tumor; Thoracic | | | | [place] [facility] | [address] | spine tumor | | | | and Healing, | [phone] | | | | | [facility] | | | | | | Floor [place], [place] | | | | | | [address] | | | | | | [phone] | | | +--------+---------+ + + + [...] + + + | Blood Pressure | 113/59 | 07/12/2015 1:15 PM | | | | | PST | | + + + + + | Pulse | 76 | 07/12/2015 1:15 PM | | | | | PST [...] + + + + | Weight | 81.6 kg (180 lb) | 07/12/2015 1:15 PM | | | | | PST | | + + + + + | Height | - | - | | + + + + + | Body Mass Index | 31.89 | 05/13/2015 10:00 PM | | | | | PST | | + + + + + documented in this encounter Progress Notes Raegan Doss PA-C - 07/12/2015 12:57 PM PSTFormatting of this note might be different f rom the original. Matt Fagan is a 24YOF who returns to clinic with her mother and sister for a routine 2 month post-op visit. 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 Following surgery, the patient was discharge to [place] for continued intense rehabilitation. She dischar ge around 06/16/15 to home and has been seeing in home PT/OT therapists since. She reports t hat her BLE strength has slowly improved; she is able to walk with a walker independently ar ound the house, bathe, dress herself and carry out basic ADLs. She reports that when she is up walking, her body feels as though it is floating in space. She has no sensation regarding body presence below her waist, which makes ambulation difficult, though it is possible. Her abdominal and LE sensation has only improved moderately since surgery. She needs to self ca th a majority of the time but has full control of her bowels. She reports a 7 day history of dysuria and cloudy urine that is concerning for a UTI. She takes Baclofen QID for muscle sp asms, though reports running out several days ago and has experienced BLE spasms that have p revented her from walking in 4 days. She has an appt with her PCP this to discuss c ontinuing medications (gabapentin, baclofen, Lovenox, zolpidem). Wt 81.647 kg (180 lb), BP 113/59, Pulse 76, BMI 31.89 kg/(m^2). PE: Alert, oriented x3. Speech clear, fluent. Gaze conjugate. Face symmetric. Thoracic spinal incision: flat, no erythema, intact. Sensory disturbances below T6 level: No light touch or deep pressure sensation from T6 - L1 . Some light touch sensation intact from L2 and below. Proprioception not intact at bilatera l great toes or ankles. Patellar and achilles DTR intact at 2+. Motor: Delt Tri Bi Netezza Architect HF KE KF APF ADF Left 5 5 5 5 5 5 5 4+ 4+ Right 5 5 5 5 4+ 4+ 4 4+ 3 Uses a alphonse wheelchair for mobility during office visit, but able to stand easily on two feet without assistance or walker/cane. Pathology report: (collection date 05/13/15) THIS IS AN AMENDED REPORT SOURCE OF SPECIMEN:A Intramedullary spinal cord lesion FS SOURCE OF SPECIMEN:B Enhancing intramedullary spinal cord lesion FS SOURCE OF SPECIMEN:C Enhancing intermedullary spinal cord lesion Final Pathologic Diagnosis: Amendment: This case is amended to include the diagnosis for specimen C. Please see below. Additional amendment: This case is amended to include the result of consultation with Dany Peoples of [facility]. Please see below. A. Intramedullary spinal cord lesion, biopsy for frozen section (squish preparation only): - Hypercellular tissue B. and C. 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 Final pathology shows low-grade neoplasm most consistent with verónica-forming gl ioneuronal tumor (WHO grade I). T6/7 and below sensory/motor disturbances. Wound healed well . Plan: -Pathology report discussed in detail with the patient. We will plan on obtaining a repeat Thoracic MRI wwo at 6 months post-op with a clinic visit with Dr. Luis to evaluate the thor acic spinal lesion, or sooner if the patient reports worsening of symptoms. -One time Rx given for Baclofen 10mg, #135 -Will test for UTI given week long hx of dysuria symptoms NEUROSURGERY AT [facility] [address] Mailcode: [place] [address] documented in this encounter Plan [...] | | | | nodule at the [id number]. | | | | | | 2. [...] | | | + +---------+ + + PORTILLO CARO ONLY (07/12/2015 2:45 PM PST) [...] | + + + + + | [facility] | [address] | [place] [address] | | | SERVICES, CORE | PARK [...] | + + + + + | [facility] | [address] | [place] [address] | | | SERVICES, CORE | JEAN [...] + + + + + | [facility] | [address] | [place] [address] | | | SERVICES, CORE | [address] | | | + + + + + documented in this encounter Visit Diagnoses + + | Diagnosis | + + | Dysuria - Primary | + + | Spinal cord tumor Neoplasm of unspecified nature of endocrine glands and other parts | | of nervous system | + + | 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
--- OUTSIDE RECORDS SUMMARY | ~2019-06-26 | XMS | Encounter Summary ---
Demographics + + + | Address | [address] | | | [place] [address] | + + + | Home Phone [...] Author + + + | Author | [facility] | + + + | Organization | [facility] | + + + | Address | [...] Providers + +------+ + | Care Training Consultant Name | Role | Phone | [...] spine tumor | PA-C [address] | | | | | Procedures | [address] | Rd | | | | | MRI SPINE | [place], | Mailcode: | | | | | THORACIC WWO | [place] | [address] | | | | | CONTRAST | [address] | [place] | | | | | [place] MRI, | Phone: | Research | | | | | DORSAL SPINE | [phone] | Center | | | | | COMBO | Fax: | [place], [place] | | | | | | [phone] | [address] | | | | | | | Phone: | | | | | | | [phone] | | | | | | | Fax: | | | | | | | [phone] | +--------+--------+ + + + + Reason [...] [address] | | | | | [place] EST | [facility] | [place], [place] | | | | | PATIENT | Rd | [address] | | | | | L[address] | [place], [place] | Phone: | | | | | | [address] | [phone] | | | | | | | Fax: | | | | | | | [phone] | +--------+--------+ + + + + Encounter Details +--------+---------+ + + + | Date | Type | Department | Care Team | Description | +--------+---------+ + + + | 06/04/ | Office | Spine Center at | Raegan Doss, | Thoracic spine tumor | | 2017 | Visit | [facility] [address] | PA-C [address] | (Primary Dx) | | | | Ave Mailcode: | [place], [place] | | | | | [facility] | [address] | | | | | and [place], | [phone] | | | | | [place] [address] | | | | | | [place], [place] | | | | | | [address] | | | | | | [phone] | | | +--------+---------+ + + + [...] Alert, oriented x3. Speech clear, fluent. Approx 0xnl6er firm nodule Sensation: RLE - LT sensation [...] for routine tumor surveillance SPINE CENTER AT [address] [address] documented in this encounter Plan [...]
--- OUTSIDE RECORDS SUMMARY | ~2019-06-26 | XMS | Clinical Summary ---
Demographics + + + | Address | [address] | | | [place] [address] | + + + | Home Phone | | + + + | Preferred Language | Unknown | + + + | Marital Status | Single | + + + | Sabianism Affiliation | NON | + + + | Race | White | + + + | Ethnic Group | Not or | + + + Author + + + | Author | [facility] | + + + | Organization | [facility] | + + + | Address | [...] Team Providers + +------+ + | Care Electrician Bus Name | Role | Phone | + +------+ + | No Pcp Per Patient | PCP | Unavailable | + +------+ + Source Comments MOISE is fully live on both EpicCare Ambulatory and EpicCare InPatient.[facility] Allergies + + + + + + | Active Allergy | Reactions | Severity | Noted | Comments | | | | | Date | | + + + + + + | Sulfa (Sulfonamide | Unknown | | 05/07/20 | | | Antibiotics) | | | 15 | | + + + + + + Medications + + + +---------+------+------+-------+ | Medication | Sig | Dispensed | Refills | Star | End | Statu | | | | | | t | Date | s | | | | | | Date | | | + + + +---------+------+------+-------+ | DULoxetine 60 mg | Take 120 mg by mouth | | 0 | | | Activ | | oral capsule,delayed | once daily at | | | | | e | | release(DR/EC) | bedtime. | | | | | | + + + +---------+------+------+-------+ | baclofen 10 mg | Take 10 mg by mouth | | 0 | | | Activ | | oral tablet | once daily at | | | | | e | | | bedtime. | | | | | | + + + +---------+------+------+-------+ | gabapentin 300 mg | Take 600 mg by mouth | | 0 | | | Activ | | oral capsule | once daily at | | | | | e | | | bedtime. | | | | | | + + + +---------+------+------+-------+ | etonogestrel | 1 Device by | | 0 | | | Activ | | (NEXPLANON) 68 mg | subdermal route. | | | | | e | | subdermal implant | | | | | | | + + + +---------+------+------+-------+ | acetaminophen 325 | Take 2 tablets by | | 0 | 01/0 | | Activ | | mg oral | mouth every six | | | 4/20 | | e | | tabletIndications: | hours. | | | 19 | | | | Thoracic spine tumor | | | | | | | + + + +---------+------+------+-------+ | diphenhydrAMINE 25 | Take 1 capsule by | 30 | 0 | 01/0 | | Activ | | mg oral | mouth every six | capsule | | 4/20 | | e | | capsuleIndications: | hours as needed. | | | 19 | | | | urticaria | Indications: | | | | | | | | Urticaria | | | | | | + + + +---------+------+------+-------+ +---+ + | | Additional | | | informationPatient | | | not taking. Reported | | | on 10/23/2018 9:44 | | | AM | +---+ + + + +--------+---+------+---+-------+ | enoxaparin 40 | Inject 0.4 mL under | 1 mL | 0 | 01/0 | | Activ | | mg/0.4 mL | the skin (SUBC) once | | | 10/26 | | e | | subcutaneous | daily in the | | | 19 | | | | syringeIndications: | evening. Okay to | | | | | | | Deep [...] | Prevention | | | | | | + + +--------+---+------+---+-------+ +---+ + | | Additional | | | informationPatient | | | not taking. Reported | | | on 10/23/2018 9:45 | | | AM | +---+ + + + +--------+---+------+---+-------+ | lidocaine 5 % | Apply 2 patches to | 30 | 0 | 01/0 | | Activ | | topical adhesive | skin every | patch | | 20 | | e | | patch,medicated | twenty-four hours. | | | 19 | | | | | Apply patch [...] | period. | | | | | | + + +--------+---+------+---+-------+ | multivitamin oral | Take 1 tablet by | 30 | 0 | 01/0 | | Activ | | tabletIndications: | mouth once daily. | tablet | | 4/20 | | e | | Thoracic spine tumor | | | | 19 | | | + + +--------+---+------+---+-------+ +---+ + | | Additional | | | informationPatient | | | not taking. Reported | | | on 10/23/2018 9:45 | | | AM | +---+ + + + +--------+---+------+---+-------+ | polyethylene | Mix 1 packet and | 30 | 0 | 01/0 | | Activ | | glycol 17 gram oral | take orally once | packet | | 10/26 | | e | | powder in | daily at bedtime. | | | 19 | | | | packetIndications: | | | | | | | | Thoracic spine tumor | | | | | | | + + +--------+---+------+---+-------+ +---+ + | | Additional | | | informationPatient | | | not taking. Reported | | | on 10/23/2018 9:45 | | | AM | +---+ + + + +--------+---+------+---+-------+ | senna-docusate | Take 2 tablets by | 30 | 0 | 01/0 | | Activ | | 8.6-50 mg oral | mouth two times | tablet | | 4/20 | | e | | tablet | daily. | | | 19 | | | + + +--------+---+------+---+-------+ +---+ + | | Additional | | | informationPatient | | | not taking. Reported | | | on 10/23/2018 9:45 | | | AM | +---+ + + + +--------+---+------+---+-------+ | traZODone 50 mg | Take 1.5 tablets by | 30 | 0 | 01/0 | | Activ | | oral tablet | mouth once daily at | tablet | | 4/20 | | e | | | bedtime. May take a | | | 19 | | | | | second dose if not | | | | | | | | asleep within 1-2 | | | | | | | | hours. | | | | | | + + +--------+---+------+---+-------+ | HYDROmorphone 2 mg | Take 1-3 tablets by | 100 | 0 | 01/0 | | Activ | | oral tablet | mouth every three | tablet | | 4/20 | | e | | | hours as needed for | | | 19 | | | | | moderate pain. | | | | | | + + +--------+---+------+---+-------+ | diazePAM 2 mg oral | Take 1 tablet by | 30 | 0 | 01/0 | | Activ | | tablet | mouth three times | tablet | | 20 | | e | | | daily as needed. | | | 19 | | | + + +--------+---+------+---+-------+ | dexamethasone 2 mg | On 10/08 at 9pm take | 3 | 0 | 04/0 | | Activ | | oral | 2mgOn 4/3 at 9am | tablet | | 2/20 | | e | | tabletIndications: | take 2mgOn 4/4 at | | | 19 | | | | Weakness of right | 9am take 2mg then | | | | | | | lower extremity | stop | | | | | | + + +--------+---+------+---+-------+ +---+ + | | Additional | | | informationPatient | | | not taking. Reported | | | on 10/23/2018 9:43 | | | AM | +---+ + + + +---------+---+------+---+-------+ | omeprazole 20 mg | Take 1 capsule by | 30 | 0 | 04/0 | | Activ | | oral capsule,delayed | mouth before | capsule | | 3/20 | | e | | | breakfast. | | | 19 | | | | release(DR/EC)Indica | Administer 30 to 60 | | | | | | | tions: Weakness of | minutes before meals | | | | | | | right lower | | | | | | | | extremity | | | | | | | + + +---------+---+------+---+-------+ | ondansetron ODT 4 | Dissolve 1-2 tablets | 30 | 0 | 04/0 | | Activ | | mg oral | on tongue and | tablet | | 2/20 | | e | | tablet,disintegratin | swallow every eight | | | 19 | | | | g | hours as needed. | | | | | | + + +---------+---+------+---+-------+ | tiZANidine 4 mg | Take 1 tablet by | 30 | 0 | 04/0 | | Activ | | oral tablet | mouth three times | tablet | | 2/20 | | e | | | daily as needed. | | | 19 | | | | | Max: 36 mg / day. 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 | + + + | H/O urinary retention | 01/14/2017 | + + + + + | Last Assessment & Plan: -per pt hx of postop urinary | | retention and straight caths-keep daniels in until fully mobilizing | + + + + + | Chronic pain following surgery or procedure | 01/14/2017 | + + + + + | Last Assessment & Plan: -Resume outpatient regiment; | | gabapentin 600 mg QHS, baclofen 10 mg QHS, and duloxetine 120 mg | | QHS-Supplement with tylenol 650 mg q6h, oxycodone 10-20 mg q3h | | prn, dilaudid IV, tizanidine 4mg TID prn, lidoderm patch for | | acute post op pain-pt is opiate naive per med history, consider | | APS consult for further management | + + + + + | At risk for constipation | 09/10/2015 | + + + + + | Last Assessment & Plan: -Aggressive bowel regiment for daily | | BMs | + + + + + | At risk for venous thromboembolism | 09/10/2015 | + + + + + | Overview: scd | | Last Assessment & Plan: -SCDs in acute bijal-op period | + + + + + | 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 Perhaps trace interval | | enlargement of the thoracic cord mass as described above. These | | changes are subtle, and includes slight further extent of the | | inferior T2 signal abnormality as well as subtle enlargement of | | the areas of cystic change within the central aspect of the | | mass.2. Normal examination of the lumbar spine. Last Assessment | | & Plan: -admitted to NSICU status post T8,T9 redo laminectomy | | for intramedullary tumor resection on 07/08/18-Presented on 07/06 | | with new onset RLE weakness 3/5 secondary to tumor progression. | | Decreased signals noted in case-Proximal lower extremities | | currently 2/5 on left; right 1/5-Baseline decreased sensation to | | left leg, 3 years per patient report. -Dr. Luis's neurosurgery | | service. q1NC and VS-MAP goal >80 per neurosurgery, continue | | today. 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 Michelle Luis | | primary. 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 -postop abx; Ancef w4h-JDU <160 with MAP>65 for | | adequate spinal perfusion-incisional wound care as per NSGY | | protocol.-at risk for CSF leak; monitor for s/s H/A, N/V, | | photophobia or neck pain> Keep flat/bedrest until noon on 01/14. At | | noon may raise HOB to 30 and mobilize as tolerated | + + + +---+ | Lower extremity weakness | | + +---+ + + | Last Assessment & Plan: -New R lower extremity weakness | | secondary to thoracic tumor progression. -see below | + + +---------+---+ | Anxiety | | +---------+---+ + + | Last Assessment & Plan: -Resume home Cymbalta 120 mg QHS and | | trazodone 50 mg QHS | + + Resolved Problems + + + + | Problem | Noted | Resolved | | | Date | Date | + + + + | Acute post-operative pain | 09/10/19 | | | | 16 | 6 | + + + + + + | Last Assessment & Plan: -pain meds as per SEP | | -continue home meds | + + Encounters +--------+ + + + + | Date | Type | Specialty | Care Team | Description | +--------+ + + + + | 06/03/ | Telephone | Neurological Surgery | Raegan Doss, | | | 2018 | | | [place] | | +--------+ + + + + from Last 3 Months Immunizations + + + + | Name | Administration Dates | Next Due | + + + + | MMZ-Hih-HifT | 11/06/1999, 04/07/1999, 01/05/1995, | | | | 09/05/1993, 07/08/1993 | | + + + + | HepB, NOS | 10/20/2000, 10/22/1999, 03/23/1999 | | + + + + | Influenza, | 05/07/2018 | | | injectable, | | | | quadrivalent, | | | | preservative free | | | | (IIV4) | | | + + + + | Influenza, seasonal, | 03/28/2016, 05/22/2015 | | | injectable (IIV3) | | | + + + + | Influenza, seasonal, | 05/14/2018 | | | injectable, | | | | preservative free | | | | (IIV3) | | | + + + + | Measles | 11/06/1999, 04/07/1997 | | + + + + | Mumps | 11/06/1999, 04/07/1997 | | + + + + | Pneumococcal 23 | 10/09/2018 | | + + + + | JAREK Junior | 04/07/1999, 01/05/1995, 09/05/1993, | | | | 07/08/1993 | | + + + + | Rubella | 11/06/1999, 04/07/1997 | | + + + + | Tdap | 11/13/2016 | | + + + + | Varicella | 10/20/2000 | | + + + + Social History + [...] | + + Last Filed Vital Signs + + + [...] | | + + + + + Plan of Treatment + + + + + | Health Maintenance | Due Date | Last Done | Comments | + + + + + | Influenza (Flu) | | 05/14/2018, 05/07/2018, | | | vaccination (#1) | 9 | 03/28/2016, Additional history | | | | | exists | | + + + + + | Pneumococcal | Aged Out | 10/09/2018 | No longer eligible | | vaccination | | | based on patient's | | | | | age to complete this | | | | | topic | + + + + + Implants + +------+--------+ +--------+--------+--------+ | Implanted | Type | Area | Manufacture | Device | Shelf | Model | | | | | r | | Expira | / | | | | | | Identi | tion | Serial | | | | | | fier | Date | / Lot | + +------+--------+ +--------+--------+--------+ | Sealant Duraseal Low Swell - | | | [employer] | | | [id number] | | [id number]: Qty: 1 on | | | LIFESCIENCE | | | / | | 05/13/2015 by Rajinder Luis | | | S | | | /[id number] | | MD Phillip at [facility] | | | | | | 25X | | LOC | | | | | | | + +------+--------+ +--------+--------+--------+ | Sealant Duraseal Low Swell - | | [place]lin | [employer] | | 06/07/ | [id number] | | [id number]: Qty: 1 on | | e: | LIFESCIENCE | | 2016 | / | | 03/22/2016 by Rajinder Luis | | Spine | S | | | /[id number] | | MD Phillip at [facility] | | | | | | 59X | | LOC | | | | | | | + +------+--------+ +--------+--------+--------+ | Sealant Hemostatic Floseal | | N/A: | SHAH | | 05/25/ | [id number] | | Matrix Needle Free Adapter | | Spine | HEALTHCARE | | 2018 | 0 / | | 5ml - [id number]: | | | | | | /[id number] | | Qty: 1 on 01/13/2017 by | | | | | | 523 | | Rajinder Luis MD at [facility] | | | | | | | | INPATIENT REV LOC | | | | | | | + +------+--------+ +--------+--------+--------+ | Sealant Hemostatic Floseal | | N/A: | SHAH | | / | [id number] | | Matrix Needle Free Adapter | | Spine | HEALTHCARE | | 2019 | 8 / | | 5ml - [id number]: | | | | | | /[id number] | | Qty: 1 on 07/08/2018 by | | | | | | 187 | | Rajinder Luis MD at [facility] | | | | | | | | INPATIENT REV LOC | | | | | | | + +------+--------+ +--------+--------+--------+ + + | Description:Given to surgical | | field | + + + +---+--------+ +---+--------+--------+ | Sealant Hemostatic Floseal | | Midlin | SHAH | | 12/06/ | [id number] | | Matrix Needle Free Adapter | | e: | HEALTHCARE | | 2019 | 8 / | | 5ml - [id number]: | | Spine | | | | /[id number] | | Qty: 1 on 10/03/2018 by | | | | | | 262 | | Rajinder Luis MD at [facility] | | | | | | | | INPATIENT REV LOC | | | | | | | + +---+--------+ +---+--------+--------+ Results Not on filefrom Last 3 Months Insurance + +--------+ +--------+ + +--------+ | Payer | Benefi | Subscriber | Effect | Phone | Address | Type | | | t Plan | ID | edith | | | | | | / | | Dates | | | | | | Group | | | | | | + +--------+ +--------+ + +--------+ | MEDICARE | MEDICA | xxxxxxxxxxx | Effect | [phone] | [address] | Medica | | | RE A & | | edith | 1 | [phone] | re | | | B | | for | | [place], [place] | | | | | | all | | [id number] | | | | | | dates | | | | + +--------+ +--------+ + +--------+ | MEDICARE | MEDICA | xxxxxxxxxxx | 11/07/19 | [phone] | [address] | [address] | | | RE A & | | 18-Pre | 1 | [address] | re | | | B | | sent | | [place], [place] | | | | | | | | [address] | | + +--------+ +--------+ + +--------+ | MEDICAID [place] | MCAID | xxxxxxxx | 10/08/19 | [phone] | [address] | [address] | | | QMM | | 19-Pre | 6 | [id number] | id | | | QMB | | sent | | [place] | | | | | | | | [id number] | | + +--------+ +--------+ + +--------+ + +--------+ +--------+ + + | Guarantor Name | Accoun | Relation to | Date | Phone | Billing Address | | | t Type | Patient | of | | | | | | | | | | + +--------+ +--------+ + + | Matt Fagan T | Person | Self [birth year] | [address] | | | al/Fam | | 1990 | [address] | [address] [place], [place] | | | mehul | | | 6 (Home) | [address] | + +--------+ +--------+ + + | Matt Fagan T | Person | Self | [birth year] | [address] | | | al/Fam | | 1990 | [address] | [address] [place], [place] | | | me[place]ul | | | 6 (Home) | [address] | + +--------+ +--------+ + + Advance Directives + + + + + | Code Status | Date | Date | Comments | | | Activated | Inactivated | | + + + + + | Full Code | 10/01/2018 | 10/08/2018 | | | | 8:22 PM | 6:15 PM | | + + + + + + + + +---+ | | | | | + + + +---+ | Full Code | 07/08/2018 | 07/12/2018 | | | | 3:14 PM | 11:00 PM | | + + + +---+ + + + +---+ | | | | | + + + +---+ | Full Code | 07/06/2018 | 07/08/2018 | | | | 2:14 PM | 2:57 PM | | + + + +---+ + + + +---+ | | | | | + + + +---+ | Full Code | 01/11/2017 | 01/18/2017 | | | | 5:56 PM | 9:01 PM | | + + + +---+ + + + +---+ | | | | | + + + +---+ | Full Code | 03/21/2016 | 03/28/2016 | | | | 8:37 PM | 5:29 PM | | + + + +---+
--- OUTSIDE RECORDS SUMMARY | ~2019-06-26 | XMS | Encounter Summary ---
Demographics + + + | Address | [address] | | | [place] [address] | + + + | Home Phone [...] Team Providers + +------+ + | Care Tunnel Worker Name | Role | Phone | [...] Ayala | ED Progress Note | | 2015 | | [address] | MD Andre Shetty | | | | Note-Transc | [place], [place] | [facility] | | | | ribed | [address] | ER Med [address] | | | | | | [place], [place] | | | | | | [address] | | | | | | | [...]
--- OUTSIDE RECORDS SUMMARY | ~2019-06-26 | XMS | Encounter Summary ---
Demographics + + + | Address | [address] | | | [place] [address] | + + + | Home Phone [...] Team Providers + +------+ + | Care Multimedia Developer Name | Role | Phone | [...] | [address] | [place], | | | | | Mailcode: [place] | [place] [address] | | | | | [place], [place] | | | | | | [address] | | | | | | [phone] | | | +--------+ + + + [...]
--- OUTSIDE RECORDS SUMMARY | ~2019-06-26 | XMS | Encounter Summary ---
Demographics + + + | Address | [address] | | | [place] [address] | + + + | Home Phone [...] Author + + + | Author | [facility] | + + + | Organization | [facility] | + + + | Address [...] Team Providers + +------+ + | Care Pulmonary Disease Specialist Name | Role | Phone | [...] | Other | | 2018 | | [facility] [address] | [address] | | | | | [address] Mailcode: CH8N | [place], [place] | | | | | [facility] | [address] | | | | | and Healing, | [phone] | | | | | [facility] | | | | | | Floor [place], [place] | | | | | | [address] | | | | | | [phone] | | | +--------+ + + + [...]
--- OUTSIDE RECORDS SUMMARY | ~2019-06-26 | XMS | Encounter Summary ---
Demographics + + + | Address | [address] | | | [place] [address] | + + + | Home Phone [...] + + + | Author | [facility] | + + + | Organization | [facility] | + + + | Address | Unknown | + + + | Phone | Unavailable | + + + Support + + +---------+ + | Name | Relationship | Address | Phone | + + +---------+ + | Concepcion To | ECON | Unknown | | + + +---------+ + | Judti Fagan | ECON | Unknown | | + + +---------+ + Care Team Providers + +------+ + | Care Facilities Assistant Name | Role | Phone | [...] | Surgery | Spinal cord | Dept [facility] | Rajinder Fisher MD | | | | | tumor ED | [address] | [address] | | | | | f/u T5-[address] | [address] | Ave | | | | | spinal cord | Rd [facility] | [place], [place] | | | | | tumor with | Hospital | [address] | | | | | right leg | [place], [place] | Phone: | | | | | weakness. | [address] | [phone] | | | | | | Phone: | Fax: | | | | | | [phone] | [phone] | +--------+--------+ + + + + Encounter Details +--------+---------+ + + + | Date | Type | Department | Care Team | Description | +--------+---------+ + + + | 05/12/ | Office | Neurosurgery at | Rajinder Luis MD | Thoracic spine tumor | | 2015 | Visit | [facility] [address] | [address] | (Primary Dx); | | | | Ave Mailcode: CH8N | [place], [place] | Spinal cord tumor | | | | [facility] | [address] | | | | | and Healing, | [phone] | | | | | [facility] | | | | | | Floor [place], [place] | | | | | | [address] | | | | | | [phone] | | | +--------+---------+ + + + [...]
--- OUTSIDE RECORDS SUMMARY | ~2019-06-26 | XMS | Encounter Summary ---
Demographics + + + | Address | [address] | | | [place] [address] | + + + | Home Phone [...] Team Providers + +------+ + | Care Delivery Aide Name | Role | Phone | [...] | | | | MRI SPINE | [facility], | Mailcode: | | | | | THORACIC WWO | [place] | [address] | | | | | CONTRAST | [address] | [place] | | | | | [place] [facility], | Phone: | Research | | | | | DORSAL SPINE | [phone] | Center | | | | | COMBO | Fax: | [place], [place] | | | | | | [phone] | [address] | | | | | | | Phone: | | | | | | | [phone] | | | | | | | Fax: | | | | | | | [phone] | +--------+--------+ + + + + Reason [...] | | | | MRI SPINE | [facility], | Mailcode: | | | | | THORACIC WWO | [place] | [address] | | | | | CONTRAST | [address] | [place] | | | | | [place] [facility], | Phone: | Research | | | | | DORSAL SPINE | [phone] | Center | | | | | COMBO | Fax: | [place], [place] | | | | | | [phone] | [address] | | | | | | | Phone: | | | | | | | [phone] | | | | | | | Fax: | | | | | | | [phone] | +--------+--------+ + + + + Encounter Details +--------+ + + + + | Date | Type | Department | Care Team | Description | +--------+ + + + + | 11/26/ | Hospital | Radiology/Imaging | Raegan Doss, | | | 2018 | Encounter | Lab at [facility] [address] | PA-C [address] | | | | | [address] Mailcode: | Ave [facility], [place] | | | | | [address] | [address] | | | | | Health and Healing, | [phone] | | | | | [facility] , 3rd | | | | | | Floor [place], [place] | | | | | | [address] | | | | | | [phone] | | | +--------+ + + + [...]
--- OUTSIDE RECORDS SUMMARY | ~2019-06-26 | XMS | Encounter Summary ---
Demographics + + + | Address | [address] | | | [place] [address] | + + + | Home Phone | | + + + | Preferred Language | Unknown | + + + | Marital Status | Single | + + + | Christian Affiliation | NON | + + + [...] Team Providers + +------+ + | Care Drycleaner Name | Role | Phone | + +------+ + | Princess Mendoza MD | PCP | | + +------+ + Encounter Details +--------+ + + + + | Date | Type | Department | Care Team | Description | +--------+ + + + + | 11/05/ | Results | [facility] at [facility] | Star Reyna, | | | 2017 | Only | [address] | MD Princess [address] | | | | [place] | Ralph Archibald [place], | | | | | [address] | [place] [address] | | | | | | [phone] | | | | | | | [...] | RESULT | QIANA MODI | | [facility] | | | | | | | | | | | | | | | | | | | | | | | | | | | | Routine Cultures | | | | | | PROCEDURE: | | | | | | Strep Screen | | | | | | Culture [[id number]: | | | | | | | [...] | | | | | | | [id number] SITE: | | | | | | [...] | | | | | | PRINCESS REYNA- | | | | | | STAR) | | | | | | Location: [facility] | | | | | | Performing LocationsP1: | | | | | | This test was | | | | | | performed at: | | | | | | [facility] | | | | + + + + + + + + | Specimen | + + | | + + + + + + + | Performing | Address | City/State/Zipcode | Phone Number | | Organization | | | | + + + + + | [facility] | [address] | [place] [address] | | | LAB | | | [...] | CULTURE | QIANA MODI | | [facility] | | | | | | [...] | | | | | | | [id number] SITE: | | | | | | [...] at: | | | | | | [facility] | | | | + + + + + + + + | Specimen | + + | | + + + + + + + | Performing | Address | City/State/Zipcode | Phone Number | | Organization | | | | + + + + + | [facility] | [address] | [place] [address] | | | LAB | | | [...] [facility] | [address] | [place] [address] | | | LAB | | | [...] PROBE | Performed by JEFF[facility]Y | | [facility] | | | | [facility], | | | | | | | | | | | | [address], | | | | | | [place] [address] | | | | | | [phone] | | | | | | | | | | | | [email or web address], Anthony | | | | | | [...] + + + + | [facility] | [address] | [place] [address] | | | LAB | | | [...] B: | | | | | | [employer] Tele[employer]/CSINTERPRETI | | | | | | VE [...] by | | | | | | [facility], | | | | | | | | | | | | [address] | | | | | | [place] [address] | | | | | | [phone] | | | | | | | | | | | | [email or web address] TelegramAnthony | | | | | | MD Kaiden - Lab. | | | | | | Director | | | | + + + + + + + + | Specimen | + + | | + + + + + | Narrative | Performed At | + + + | Location: [facility] | | | | [facility] | | | [facility] | + + + + + + + + | Performing | Address | City/State/Zipcode | Phone Number | | Organization | | | | + + + + + | [facility] | [address] | [place] [address] | | | LAB | | | | + + + + + documented in this encounter Visit Diagnoses Not on filedocumented in this encounter"
--- OUTSIDE RECORDS SUMMARY | ~2019-06-26 | XMS | Encounter Summary ---
Demographics + + + | Address | [address] | | | [place] [address] | + + + | Home Phone [...] Providers + +------+ + | Care Wire Coiler Machine Operator Name | Role | Phone [...] | | | | MRI SPINE | [facility], | Mailcode: | | | | | THORACIC WWO | [place] | [address] | | | | | CONTRAST | [address] | [place] | | | | | NE MRI, | Phone: | Research | | | | | DORSAL SPINE | [phone] | Center | | | | | COMBO | Fax: | [place], [place] | | | | | | [phone] | [address] | | | | | | | Phone: | | | | | | | [phone] | | | | | | | Fax: | | | | | | | [phone] | +--------+--------+ + + + + Reason [...] | | | | MRI SPINE | [facility], | Mailcode: | | | | | THORACIC WWO | [place] | [address] | | | | | CONTRAST | [address] | [place] | | | | | NE MRI, | Phone: | Research | | | | | DORSAL SPINE | [phone] | Center | | | | | COMBO | Fax: | [place], [place] | | | | | | [phone] | [address] | | | | | | | Phone: | | | | | | | [phone] | | | | | | | Fax: | | | | | | | [phone] | +--------+--------+ + + + + Encounter Details +--------+ + + + + | Date | Type | Department | Care Team | Description | +--------+ + + + + | 06/04/ | Hospital | Radiology/Imaging | Raegan Doss, | | | 2017 | Encounter | Lab at [facility] [address] | PA-C [address] | | | | | [address] Mailcode: | Ave [facility], [place] | | | | | [address] | [address] | | | | | Health and Healing, | [phone] | | | | | [facility] , 3rd | | | | | | Floor [place], [place] | | | | | | [address] | | | | | | [phone] | | | +--------+ + + + [...]
--- OUTSIDE RECORDS SUMMARY | ~2019-06-26 | XMS | Encounter Summary ---
Demographics + + + | Address | [address] | | | [place] [address] | + + + | Home Phone | | + + + | Preferred Language | Unknown | + + + | Marital Status | Single | + + + | Synagogue Affiliation | NON | + + + [...] Providers + +------+ + | Care Systems Qa Analyst Name | Role | Phone | [...] | Telephone | Spine Center at | Raegan Doss, | Medication Refill | | 2017 | | [facility] [address] | PA-C [address] | Request | | | | Shweth[place] Mailcode: | [place], [place] | | | | | [facility] | [address] | | | | | and Healing, | [phone] | | | | | [place] [address] | | | | | | [employer], [place] | | | | | | [address] | | | | | | [phone] | | | +--------+ + + + [...] COMBO2 | | | | | | Assay([employer] | | | | | | [...] | | | | | | Mnemonic: [id number] | | | | | | DIAGNOSTICS | | | | | | [place] [id number] | | | | | | [address] [facility] | | | | | | [place] [address]SYKENCY | | | | | | MD AARON | | | | + + + + + + + + | Specimen | + + | | + + + + + | Narrative | Performed At | + + + | Location: [facility] | | | | [facility] | | | [facility] | + + + + + + + + | Performing | Address | City/State/Zipcode | Phone Number | | Organization | | | | + + + + + | [facility] | [address] | [place] [address] | | | LAB | | | [...] [facility] | | | CULTURE | QIANA JOLLYA | | [place] [facility] | | | [...] | | | | | | | [phone] SITE: | | | | | | [...] | | | | | | PRINCESS REYNA-STAR) | | | | | | Location: [...] [facility] | [address] | [place] [address] | | | LAB | | | | + + + + + documented in this encounter Visit Diagnoses + + | Diagnosis | + + | 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
--- OUTSIDE RECORDS SUMMARY | ~2019-06-26 | XMS | Encounter Summary ---
Demographics + + + | Address | [address] | | | [place] [address] | + + + | Home Phone [...] Team Providers + +------+ + | Care Sweet Goods Machine Operator Name | Role | Phone [...] Shetty | | | | Note-Transc | [place], [place] | [facility], [place] | | | | ribed | [address] | ER Med [address] | | | | | | [place], [place] | | | | | | [address] | | | | | | | [...]
--- OUTSIDE RECORDS SUMMARY | ~2019-06-26 | XMS | Encounter Summary ---
Demographics + + + | Address | [address] | | | [place] [address] | + + + | Home Phone [...] Team Providers + +------+ + | Care Outside B2B Sales Name | Role | Phone | [...] Visit | H [address] | [place] [address] | (Primary Dx) | | | | Ave Mailcode: | [place], [place] | | | | | [facility] | [address] | | | | | and [place], | [phone] | | | | | Building [address] | | | | | | [place], [place] | | | | | | [address] | | | | | | [phone] | | | +--------+---------+ + + + [...] low grade glioneuronal tumor. She discharged to [facility] shortly after her surgery. Today the patient [...] or neurogenic bowel/bladder) develop. 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
--- OUTSIDE RECORDS SUMMARY | ~2019-06-26 | XMS | Encounter Summary ---
Demographics + + + | Address | [address] | | | [place] [address] | + + + | Home Phone [...] Team Providers + +------+ + | Care Chopper Gun Operator Name | Role | Phone | [...] Archibald | | | | Note-Transc | [place], [place] | [place], [place] | | | | ribed | [address] | [address] | | | | | | | [...]
--- OUTSIDE RECORDS SUMMARY | ~2019-06-26 | XMS | Encounter Summary ---
Demographics + + + | Address | [address] | | | [place] [address] | + + + | Home Phone [...] Team Providers + +------+ + | Care Fairing Worker Name | Role | Phone | [...] | 2018 | Pass | Services at [facility] | | | | | | [address] | | | | | | Marla Abdul Mailcode: | | | | | | [address] [place] | | | | | | [facility] | | | | | | [place], [place] | | | | | | [address] | | | | | | [phone] | | | +--------+ + + + [...]
--- OUTSIDE RECORDS SUMMARY | ~2019-06-26 | XMS | Encounter Summary ---
Demographics + + + | Address | [address] | | | [place] [address] | + + + | Home Phone [...] Team Providers + +------+ + | Care Tanning Solution Maker Name | Role | Phone | [...] Center Franko | | | | | [place], [place] | [place] | | | | | [address] | [address] | | | | | [phone] | | | +--------+ + + + [...]
--- OUTSIDE RECORDS SUMMARY | ~2019-06-26 | XMS | Encounter Summary ---
Demographics + + + | Address | [address] | | | [place] [address] | + + + | Home Phone [...] Team Providers + +------+ + | Care Detective Youth Bureau Name | Role | Phone | + [...] | | | spine tumor | [place] [address] | | | | | | Procedures | [address] | | | | | | | [place], [place] | | | | | | OCCUPATIONAL | [address] | | | | | | THERAPY | Phone: | | | | | | REFERRAL | [phone] | | | | | | | Fax: | | | | | | | [phone] | | +--------+--------+ + + + + [...] | | | | | PHYSICAL | [facility] [place] | Mailcode: | | | | | THERAPY | [address] | [facility] | | | | | REFERRAL | Phone: | [facility] | | | | | | [phone] | Husam [place], | | | | | | Fax: | [address] floor | | | | | | [phone] | [place], [place] | | | | | | | [address] | | | | | | | Phone: | | | | | | | [phone] | | | | | | | Fax: | | | | | | | [phone] | + +--------+ + + + + [...] + + | 07/06/ | Hospital | [facility] [address] | April Beck MD | | | 2018 - | Encounter | [address] | [address] | | | | | [id number] [facility] | [facility] | | | 07/12/ | | [facility], | [place], [place] | | | 2018 | | [place] [address] | [address] | | | | | [phone] | [phone] | | | | | | | | | | | | Rajinder Luis MD | | | | | | [address] | | | | | | [place], [place] | | | | | | [address] | | | | | | [phone] | | | | | | | [...] Female who has been followed in the [facility] Neurosurgical c linic for 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 The patient noted new onset of right lower extrem ity weakness on 07/06/2018 and then presented to the hospital for evaluation. Ms. Worrell was transferred to [facility] on 07/06/2018. A MRI showed [...] from the beginning. Dura was closed with Hauula-Thaddeus, tacked up with 4-0 Nurol on sutures. [...] patient was felt appropriate for discharge to [facility] (Inpatient Rehab) on 07/12/2018, and the patient and/or family members agree with this course of action. The janeth chang has a follow up appointment in the [facility] Neurosurgery Spine clinic on 07/31/2018. [...] on the 1 2th floor at the [facility] on the [facility] located at [address] [place] [address]. Please call [phone] if you have any questions or concerns bef ore your appointment time. Code Status for Facility Status: Full Code Discharge Follow Up - Facility MD to follow Facility MD to follow patient. Future Appointments Provider Department Dept Phone Center 07/31/2018 1:00 PM Raheem Doss Spine Center at [facility] [phone] [facility] Contact information for after-discharge care [facility] [place] . Specialty: [facility] Facility Contact information [address] [facility] [address] Warning Symptoms and Signs Please call the Neurosurgery clinic at [phone] with any questions Sunday to Sunday 8 A M - 4 PM. After hours, call [facility] at [phone] and ask to speak with the Neurosurgery resi dent employment educational coord if you have any of the following: - Difficulty breathing or shortness of breath; - Excessive bleeding or drainage from incision sites; - Fevers, chills, sweats; - Persistent nausea or vomiting; - Change in mental status. [facility] Neurosurgery Service Pain Policy [facility] Neurosurgery Service Pain Policy: Our clinic can prescribe pain medication for up to 6 weeks post-op. All refills must be requested through a the [facility] Neurosurgery Clinic. Patients must give [...] - 1.10 mg/dL 0.45 (L) EGFR - TRINIDADIAN Latest Ref Range: >60 mL/min >60 EGFR NON -TRINIDADIAN Latest Ref Range: >60 mL/min >60 GLUCOSE, [...] plan with case management. CALEB HENRY PA-C [facility] [address] [address] [address] MEDICATIONS Current Facility-Administered Medications Medication acetaminophen (TYLENOL) [...] 2 tablet traZODone (DESYREL) dose 75 mg danc, Raheem Nieves PA-C - 07/11/2018 8:39 AM [...] Pending acceptance at [facility]. RAHEEM DOSS PA-C [facility] [address] [place] [address] dams, PHILIPPE Mena - 07/10/2018 8:17 AM [...] the ri sks of keeping it in half-way. 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 RAHEEM DOSS PA-C [facility] [address] [place] [address] Mook Álvarez ra, MD - 07/09/2018 9:09 [...] WORRELL Routine Cultures PROCEDURE: Strep Screen Culture [[id number]: 11/05/2017 16:4 4 PDT P1] SOURCE: Throat STARTED: 11/05/2017 20:3 9 PDT FREE TEXT SOURCE: BODY SITE: FINAL REPORTS Final Report [] Verified Date/Time: 11/07/2017 11:07 PDT No beta Strep isolated. Order Comments O1: Strep Screen Culture (CULTURE THROAT STREP SCREEN - [facility] - Ordering-Phys: PRINCESS GRAVES) Location: [facility] Performing Locations P1: This test was performed at: [facility] Lab Lab Results Component Value Date [...] Please contact the Neurosurgery resident on-call pager [phone] with questions or concerns. Olinda Araya MD Resident Physician Department of Neurosurgery Lucinda Valencia PA-C - 07/09/2018 5:50 AM PSTFormatting of this note might be diffe rent from the original. . Neuroscience Intensive Care Unit Team Progress Note NSICU ASSIGNED #[id number] ICU Admission Reason Most Recent Value ICU [...] Provider Role Specialty Ipt Critical Care Nsicu #[id number] Treatment Team Ipt Neurosurgery #[id number] Treatment Team Neurological Surgery Patient Lines/Drains/Airways Status [...] Service: 07/09/2018 LUCINDA CASTAÑEDA PA-C [facility] DEPARTMENT: ANE ICU NEURO Place of Service:- Inpatient CSN: [id number] Suggested Modifier: None Suggested CPT: TO LATRINE CLEANER Author:LUCINDA CASTAÑEDA PA-C [place] [address] [address] [phone] Kamaljit Rios MD,MPH - 07/08/2018 3:00 PM [...] Please contact the Neurosurgery resident on-call pager [phone] with questions or concerns. Kamaljit Rios M.D., M.P.H. R2 Resident Physician Neurological Surgery Pager: [phone] signed by Kamaljit Rios MD,MPH at 07/08/2018 [...] Imaging: MRI SPINE THORACIC WO CONTRAST Order: [id number] Performed: 07/07/2018 15:00 Status: Final result Visible [...] MG/ML) INT RAVENOUS SOLUTION 13 mL (accession [id number]), GADOTERATE MEGLUMINE 0.5 MMOL/ML (376.9 MG/ML) INTRAVENOUS SOLUTION 13 mL (accession [id number]) FINDINGS: Thoracic spine: There is abnormal T2 [...] 15:48 CT SPINE THORACIC WO CONTRAST Order: [id number] Performed: 07/07/2018 15:12 Status: Final result Visible [...] duloxetine, gabapentin, baclofen, trazodone RAHEEM DOSS PA-C [facility] [address] [place] [address] Dave Mcclain MD - 07/07/2018 12:34 PM [...] today Dave Ayala MD Neurosurgery, PGY-1 Pager [phone] Dave Mcclain MD - 07/07/2018 7:38 AM [...] pre-op today -npo at midnight Please page [phone] with any questions or concerns. Dave Ayala MD Neurosurgery, PGY-1 Pager [phone] documented in this encounter Plan of Treatment [...] | + + + + + | [facility] Regroup Therapy | [address] | [place] [address] | | | SERVICES, NINO | JEAN [...] MAR[place] | [address] | [place], [place] | | | JAVIER POINT OF CARE | [facility] | [address] | | | TESTS | | | [...] | + + + + + | [facility] | [address] | [place] [address] | | | SERVICES, CORE | JEAN [...] | + + + + + | [facility] LABOR[facility]ORY | [address] | [place] [address] | | | SERVICES, CORE | PARK [...] the MDRD equation recommended by the | [facility] | | National Kidney Disease Education Program. [...] | + + + + + | [facility] | [address] | [place] [address] | | | NINO LEONARD | JEAN [...] [place] | [address] | [place], [place] | | | ZELALEM HERRERA OF NURIA | [address] | [address] | | | TESTS | | | [...] BRAMBILA | [address] | [place], [place] | | | ZELALEM HERRERA OF CARE | [address] | [address] | | | TESTS | | | [...] [place] | [address] | [place] | | | ZELALEM HERRERA OF NURIA | [address] | [address] | | | TESTS | | | [...] | + + + + + | [facility] | [address] | [place] [address] | | | SERVICES, CORE | JEAN [...] LABORATORY | [address] | [place] [address] | | | SERVICES, CORE | PARK [...] | + + + + + | [facility] | [address] | [place] [address] | | | SERVICES, NINO | JEAN [...] | | + +---------+ + + | [facility] RADIOLOGY | | | | | VOICE RECOGNITION 2 | | | | + +---------+ + + OPERATION RECORD (07/08/2018 7:40 PM PST) + + | Procedure Note | + + | Rajinder Luis MD - 07/08/2018 7:40 PM PST Date of Service: 07/08/2018 Attending | | Surgeon: Rajinder Luis MD Suction Drum Drier Operator(s): Yokasta Webb MD. | | Preoperative Diagnoses: [...] | | beginning. Dura was closed with Hauula-Thaddeus, tacked up with 4-0 Nurolon sutures. The | | muscle closed in layers. Skin was closed with 2-0 interrupted vertical mattress | | sutures.Indications For Procedure: Please see [facility] for full details, but briefly, | | [...] the operating room | | on a [facility]. She was intubated without difficulty by the [...] then closed it with a running 6-0 Hauula-Thaddeus suture. We tacked out the | | [...] 07/08/2018 | | 19:06:44DT: 07/08/2018 19:40:29Job #: [id number] | |Indication: Intraoperative evaluation of adequacy of [...] |JLG/MODL | | | | | | /[id number] | + + PROCEDURE NOTE (07/08/2018 4:53 [...] LABORATORY | [address] | [place] [address] | | | HORACIO, NINO | PARK [...] | + + + + + | [facility] Regroup Therapy | [address] | [place] [address] | | | SERVICES, CORE | JEAN [...] | + + + + + | [facility] | [address] | [place] [address] | | | SERVICES, CORE | JEAN [...] BRAMBILA | [address] | [place], [place] | | | ZELALEM HERRERA OF NURIA | [address] | [address] | | | TESTS | | | [...] | | | Yokasta Webb PGY5 Pager [phone] YOKASTA WEBB MD | | + + [...] from | | | | | | [id number], | | | | | | [id number], | | | | | | [id number], and | | | | | | [id number]). According | | | | | | to [facility], molecular | | | | | | [...] | | | | | | y, [facility] & | | | | | | [facility] | | | | | | electronic [...] | | | | | | number [id number]. | | | | | | Other, [...] | | | | | determined by [facility] | | | | | [...] | + + + + + | [facility] DEPARTMENT | [address] | [place] [address] | | | PATHOLOGY | [address] | | | + + + + + CBC (HEMOGRAM) ONLY (07/08/2018 4:13 AM PST) + +---------+ + + + | Component | Value | Ref Range | Performed | Pathologist | | | | | At | Signature | + +---------+ + + + | WHITE CELL | 9.37 | 3.50 - 10.80 | [facility] | | | COUNT | | K/cu [...] LABORATORY | [address] | [place] [address] | | | SERVICES, CORE | PARK [...] | + + + + + | [facility] | [address] | [place] [address] | | | SERVICES, CORE | PARK [...] | + + + + + | [facility] | [address] [facility] | [place] [address] | | | SERVICES, NINO | [address] | | | + + + + + INTRAOPERATIVE NEURO MONITORING (07/08/2018) + + + | Narrative | Performed At | + + + | Patient Name: Qiana Worrell Date of : 1990 | | | Date of Test: 07/08/2018 Place | | | of Service: IP Intra Op (42) [id number] INTRAOPERATIVE | | | NEURO MONITORING IOM: [...] min(s), with | | [place] [address] - Short Latency EP's Upper AND Lower extremities | | | [address] - Central Motor EP's Upper AND Lower [...] SOLUTION 13 | | | mL (accession [id number]), GADOTERATE MEGLUMINE 0.5 MMOL/ML (376.9 | | | MG/ML) INTRAVENOUS SOLUTION 13 mL (accession [id number]) FINDINGS: | | | Thoracic spine: There [...] (376.9 MG/ML) INTRAVENOUS SOLUTION 13 mL (accession [id number]), | | GADOTERATE MEGLUMINE 0.5 MMOL/ML (376.9 MG/ML) INTRAVENOUS SOLUTION 13 mL (accession | | [id number]) FINDINGS:Thoracic spine: There is abnormal T2 hyperintensity [...] SOLUTION 13 | | | mL (accession [id number]), GADOTERATE MEGLUMINE 0.5 MMOL/ML (376.9 | | | MG/ML) INTRAVENOUS SOLUTION 13 mL (accession [id number]) FINDINGS: | | | Thoracic spine: There [...] (376.9 MG/ML) INTRAVENOUS SOLUTION 13 mL (accession [id number]), | | GADOTERATE MEGLUMINE 0.5 MMOL/ML (376.9 MG/ML) INTRAVENOUS SOLUTION 13 mL (accession | | [id number]) FINDINGS:Thoracic spine: There is abnormal T2 hyperintensity [...] | + + + + + | [facility] | [address] | [place] [address] | | | SERVICES, | JEAN CARLOS [...] LABORATORY | [address] | [place] [address] | | | SERVICES, | [address] [...] LABORATORY | [address] | [place] [address] | | | SERVICES, CORE | PARK [...] | + + + + + | [facility] | [address] | [place] [address] | | | SERVICES, CORE | PARK [...] [facility] | [address] | [place] [address] | | | SERVICES, CORE | PARK [...] | | | | ONCE, 1 dose, [place] 07/07/18 at | | PM PST | [...]
--- OUTSIDE RECORDS SUMMARY | ~2019-06-26 | XMS | Encounter Summary ---
Demographics + + + | Address | [address] | | | [place] [address] | + + + | Home Phone [...] Team Providers + +------+ + | Care Admitted Attorneys Name | Role | Phone | + +------+ + | Clare Mendoza MD | PCP | | + +------+ + Encounter Details +--------+ + + + + | Date | Type | Department | Care Team | Description | +--------+ + + + + | 01/26/ | Telephone | [facility] | Rajinder Luis MD | | | 2017 | | [facility] [address] | [address] | | | | | Ave Mailcode: | [place], [place] | | | | | [facility] | [address] | | | | | and [place], | [phone] | | | | | [address] | | | | | | [place], [place] | | | | | | [address] | | | | | | [phone] | | | +--------+ + + + [...]
--- OUTSIDE RECORDS SUMMARY | ~2019-06-26 | XMS | Encounter Summary ---
Demographics + + + | Address | [address] | | | [place] [address] | + + + | Home Phone [...] Team Providers + +------+ + | Care Investment Underwriter Name | Role | Phone | + [...] [address] | | | | | [place] | [address] | [place] | | | | | MRI, LUMBAR | Phone: | Research | | | | | SPINE COMBO | [phone] | Center | | | | | | Fax: | [place], [place] | | | | | | [phone] | [address] | | | | | | | Phone: | | | | | | | [phone] | | | | | | | Fax: | | | | | | | [phone] | +--------+--------+ + + + + Reason [...] | | | MRI SPINE | [facility], | Mailcode: | | | | | LUMBAR WWO | [place] | [address] | | | | | [place] | [address] | [place] | | | | | MRI, LUMBAR | Phone: | Research | | | | | SPINE COMBO | [phone] | Center | | | | | | Fax: | [place], [place] | | | | | | [phone] | [address] | | | | | | | Phone: | | | | | | | [phone] | | | | | | | Fax: | | | | | | | [phone] | +--------+--------+ + + + + Encounter Details +--------+ + + + + | Date | Type | Department | Care Team | Description | +--------+ + + + + | 11/29/ | Hospital | Radiology/Imaging | Raegan Doss, | | | 2018 | Encounter | Lab at [facility] [address] | PA-C [address] | | | | | [address] Mailcode: | Ave [facility], [place] | | | | | [address] | [address] | | | | | Health and Healing, | [phone] | | | | | [facility] , 3rd | | | | | | Floor [place], [place] | | | | | | [address] | | | | | | [phone] | | | +--------+ + + + [...] | | | | | | dose, [facility] 11/29/17 at 1845 | | | | | | + +---------+ +-------+------+------+ +---+---+ | | | +---+---+ documented in this encounter"
--- OUTSIDE RECORDS SUMMARY | ~2019-06-26 | XMS | Encounter Summary ---
Demographics + + + | Address | [address] | | | [place] [address] | + + + | Home Phone [...] Team Providers + +------+ + | Care Intelligent Systems Engineer Name | Role | Phone | [...] [place] | | | | | [place], [place] | [place], [place] | | | | | [address] | [address] | | | | | [phone] | | | +--------+ + + + [...]
--- OUTSIDE RECORDS SUMMARY | ~2019-06-26 | XMS | Encounter Summary ---
Demographics + + + | Address | [address] | | | [place] [address] | + + + | Home Phone [...] Team Providers + +------+ + | Care Predatory Game Hunter Name | Role | Phone | + [...] | | | | MRI SPINE | [facility]NOTE [facility]], | Mailcode: | | | | | THORACIC WWO | [place] | [address] | | | | | [place] | [address] | Sp[place] | | | | | [place] MRI, | Phone: | Research | | | | | DORSAL SPINE | [phone] | Center | | | | | COMBO | Fax: | [place], [place] | | | | | | [phone] | [address] | | | | | | | Phone: | | | | | | | [phone] | | | | | | | Fax: | | | | | | | [phone] | +--------+--------+ + + + + Reason [...] | | | | MRI SPINE | [facility]NOTE 3], | Mailcode: | | | | | THORACIC WWO | [place] | [address] | | | | | [place] | [address] | Spur | | | | | [place] MRI, | Phone: | Research | | | | | DORSAL SPINE | [phone] | Center | | | | | COMBO | Fax: | [place], [place] | | | | | | [phone] | [address] | | | | | | | Phone: | | | | | | | [phone] | | | | | | | Fax: | | | | | | | [phone] | +--------+--------+ + + + + Encounter Details +--------+ + + + + | Date | Type | Department | Care Team | Description | +--------+ + + + + | 06/04/ | Hospital | Radiology/Imaging | Raegan Doss, | | | 2017 | Encounter | Lab at [facility] [address] | PA-C [address] | | | | | [address] Mailcode: | Ave [facility]NOTE 3], [place] | | | | | [address] | [address] | | | | | Health and Healing, | [phone] | | | | | [facility] , 3rd | | | | | | Floor [place], [place] | | | | | | [address] | | | | | | [phone] | | | +--------+ + + + [...]
--- OUTSIDE RECORDS SUMMARY | ~2019-06-26 | XMS | Encounter Summary ---
Demographics + + + | Address | [address] | | | [place] [address] | + + + | Home Phone [...] Team Providers + +------+ + | Care Coconut Cooker Name | Role | Phone | + [...] spine tumor | PA-C [address] | | | | | Procedures | [address] | Rd | | | | | MRI SPINE | [place], | Mailcode: | | | | | THORACIC WWO | [place] | [address] | | | | | [place] | [address] | [place] | | | | | [place] MRI, | Phone: | Research | | | | | DORSAL SPINE | [phone] | Center | | | | | COMBO | Fax: | [place], [place] | | | | | | [phone] | [address] | | | | | | | Phone: | | | | | | | [phone] | | | | | | | Fax: | | | | | | | [phone] | +--------+--------+ + + + + Reason [...] [address] | | | | | [place] EST | [facility] | [place], [place] | | | | | PATIENT | Rd | [address] | | | | | LEVEL V | [place], [place] | Phone: | | | | | | [address] | [phone] | | | | | | | Fax: | | | | | | | [phone] | +--------+--------+ + + + + Encounter Details +--------+---------+ + + + | Date | Type | Department | Care Team | Description | +--------+---------+ + + + | 06/04/ | Office | Spine Center at | Raegan Doss, | Thoracic spine tumor | | 2017 | Visit | [facility] [address] | PA-C [address] | (Primary Dx) | | | | Ave Mailcode: | [place], [place] | | | | | [facility] | [address] | | | | | and [place], | [phone] | | | | | [place] [address] | | | | | | [place], [place] | | | | | | [address] | | | | | | [phone] | | | +--------+---------+ + + + [...] Alert, oriented x3. Speech clear, fluent. Approx [id number] firm nodule Sensation: RLE - LT sensation [...] for routine tumor surveillance [facility] AT [address] [address] documented in this encounter Plan [...]
--- OUTSIDE RECORDS SUMMARY | ~2019-06-26 | XMS | Encounter Summary ---
Demographics + + + | Address | [address] | | | [place] [address] | + + + | Home Phone [...] Team Providers + +------+ + | Care Stamp Press Operator Name | Role | Phone | [...] | Post-discharge | | 2016 | | [facility] [address] | [address] | follow-up (s/p | | | | Ave Mailcode: CH8N | [facility] [place] | discharge 03/28/16: | | | | [place] for [facility] | [address] | Right-sided T8 and | | | | and Healing, | [phone] | T9 hemilaminectomy & | | | | | | resection of tumor | | | | Floor [facility] [place] | | (dos: 03/24/16) ) | | | | [address] | | | | | | [phone] | | | +--------+ + + + [...]
--- OUTSIDE RECORDS SUMMARY | ~2019-06-26 | XMS | Encounter Summary ---
Demographics + + + | Address | [address] | | | [place] [address] | + + + | Home Phone [...] Author + + + | Author | [facility] | + + + | Organization | [facility] | + + + | [...] Providers + +------+ + | Care Director Graphics Name | Role | Phone | + [...] to social | | 2014 | | [facility] [address] | [address] | worker | | | | [address] | Marla Abdul [place], | | | | | Mailcode: CH[address]A | [place] [address] | | | | | [place], [place] | | | | | | [address] | | | | | | [phone] | | | +--------+ + + + [...]
--- OUTSIDE RECORDS SUMMARY | ~2019-06-26 | XMS | Encounter Summary ---
Demographics + + + | Address | [address] | | | [place] [address] | + + + | Home Phone [...] Providers + +------+ + | Care Director Stage Name | Role | Phone | + [...] | | Thoracic | Raegan Nieves, | [facility] [address] | | | | | spine tumor | PA-C [address] | | | | | Procedures | [address] | Mailcode: | | | | | MRI SPINE | [facility]NOTE 3], | [facility] Center | | | | | THORACIC WWO | [place] | for Health | | | | | [place] | [address] | and Healing, | | | | | [place] MRI, | Phone: | Building [address], | | | | | DORSAL SPINE | [phone] | 3rd Floor | | | | | COMBO | Fax: | [place], [place] | | | | | | [phone] | [address] | | | | | | | Phone: | | | | | | | [phone] | | | | | | | Fax: | | | | | | | [phone] | +--------+--------+ + + + + Reason [...] | | | | | [place] | [address] | and Healing, | | | | | [place] MRI, | Phone: | [address], | | | | | DORSAL SPINE | [phone] | 3rd Floor | | | | | COMBO | Fax: | [place], [place] | | | | | | [phone] | [address] | | | | | | | Phone: | | | | | | | [phone] | | | | | | | Fax: | | | | | | | [phone] | +--------+--------+ + + + + Encounter Details +--------+ + + + + | Date | Type | Department | Care Team | Description | +--------+ + + + + | 11/27/ | Hospital | Radiology/Imaging | Raegan Doss, | | | 2017 | Encounter | Lab at [facility] [address] | PA-C [address] | | | | | [address] Mailcode: | Ave [facility]NOTE 3], [place] | | | | | [facility] Center for | [address] | | | | | Health and Healing, | [phone] | | | | | [address] | | | | | | Floor [place], [place] | | | | | | [address] | | | | | | [phone] | | | +--------+ + + + [...]
--- OUTSIDE RECORDS SUMMARY | ~2019-06-26 | XMS | Encounter Summary ---
Demographics + + + | Address | [address] | | | [place] [address] | + + + | Home Phone [...] Team Providers + +------+ + | Care Bus Cleaner Name | Role | Phone | + [...] | | | spine tumor | [address] | | | | | | Procedures | [address] | | | | | | | [place], | | | | | | OCCUPATIONAL | [place] | | | | | | THERAPY | [address] | | | | | | REFERRAL | Phone: | | | | | | | [phone] | | | | | | | Fax: | | | | | | | [phone] | | +--------+--------+ + + + + [...] | | | spine tumor | [address] | | | | | | Procedures | [address] [place] | | | | | | PHYSICAL | [facility], | | | | | | THERAPY | [place] | | | | | | REFERRAL | [address] | | | | | | | Phone: | | | | | | | [phone] | | | | | | | Fax: | | | | | | | [phone] | | +--------+--------+ + + + + [...] + + + + | 05/12/ | [facility] [address] | Rajinder Luis MD | | | 2015 - | Encounter | [address] | [address] | | | | | [id number] [facility] | [place], [place] | | | 05/20/ | | [facility], | [address] | | | 2015 | | [place] [address] | [phone] | | | | | [phone] | | | +--------+ + + + [...] Rajinder Luis MD PCP: PATRIC Todd Service: [facility] Neurosurgery Diagnoses Principal Final Diagnosis: Intramedullary spinal [...] patient was felt appropriate for discharge to [facility] (Stephan LYONS) on 05/20/2015, and the patient and/or family [...] completed No Destination: Destination: Inpatient Rehab - [facility] Condition on Discharge Good Discharge Follow Up - Facility MD to follow Facility MD to follow patient. FOLLOW-UP You have a wound check appointment with Raegan Doss PA-C at 11:30am on 05/31. This will be on the 8th floor at the [facility] on the [facility] located at [address] [place] [address]. Please call [phone] if you have any questions or conc erns before your appointment time. If you are still admitted to [facility] at this time, it is okay to cancel this appointment as thais costa as a provider at that facility can examine your incision. Please then make an appointmen t with Raegan Doss for 1 month following your discharge from [facility]. PCP:PATRIC Todd When: Please follow-up with [...] discharge as appropriate: BP: 95/52 mmHg (05/20/15 0341) Pulse: 84 (05/20/15 034) Resp: 16 ( 034) Weight: 92.3 kg (203 lb 7.8 oz) (05/14/15 0500) Discharge Patient To: Interhospital Transfer - [facility] Does patient have a planned readmission: No Discharge Summary Completed?: Yes. 05/20/2015 Discharging Provider: Raegan Doss PA-C Date Completed: 05/20/2015 Time Completed: 7:50 AM Discharging Attending: Rajinder Luis MD [facility] [address] [address] [address] documented in this encounter Progress Notes Raegan [...] Delivery Device: None (room air ) (05/20/15 0341) 24 Hour Vital Min/Max: Systolic (24hrs), Av [...] al sides of foot. Motor: Tri Bi Finance Analyst HF KE APF ADF Left 5 5 [...] BLE duplex neg for DVT. Dispo: To [facility] ([facility]) today. Raegan Doss PA-C [facility] [address]T [address] [address] [address] dams, PHILIPPE Mena - 05/19/2015 6:52 AM [...] O2 Delivery Device: None (room ai r) (05/19/15 5242) 24 Hour Vital Min/Max: Systolic (24hrs), Av mmHg, Min:97 mmHg, Max:133 mmHgDiastolic (24hrs), Av mmHg, Mi n:51 mmHg, Max:73 mmHgPulse Min: 76 Max: 101 Temp Min: 36.4 C (97.5 F) Max: 36.9 C (98.4 F) Resp Min: 16 Max: 16 SpO2 Min: 95 % Max: 99 % Intake/Output Summary (Last 24 hours) at 05/19/15 3474 Last data filed at 05/19/15 0330 Gross per 24 hour Intake 1690 ml [...] rest of the LLE. Motor: Tri Bi Finance Analyst HF KE APF ADF Left 5 5 [...] CM for IPR placement. Raegan Doss PA-C [facility] [address]K [address] [address] [place] [address] dams, PHILIPPE Mena - 05/18/2015 6:52 AM [...] Delivery Device: None (room ai r) (05/18/15 3852) 24 Hour Vital Min/Max: Systolic (24hrs), Av [...] intact at pre-op baseline. Motor: Bi Tri Finance Analyst HF KE APF ADF Left 5 5 [...] CM for IPR placement. Raegan Doss PA-C [facility] [address] [address]/[place] [address] dams, PHILIPPE Mena - 05/17/2015 8:48 AM [...] at pre-op baseline. Motor: Delt Tri Bi Finance Analyst HF KE APF ADF Left 5 5 [...] CM for IPR placement. Raegan Doss PA-C [facility] [address]H [address] [address] [place] [address] Cesar Cox MD - 02/2015 9:39 AM [...] per PT. Cesar Odonnell MD Neurosurgery PGY1 in, MD Cesar - 05/15/2015 8:07 AM PST NEUROSURGERY PROGRESS [...] course Cesar Odonnell MD Neurosurgery PGY1 horrChris nicholson, PA - 1 07/14/2014 4:29 PM PST NEUROCRITICAL CARE PROGRESS NOTE Author: Park Hoover MD Date of SERVICE: 05/14/2015 ICU Attending: MD Sarina Admit Service: [facility] ICU Day # 2 POD # 1 HPI: Matt Fagan is a 24 y.o. 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 She reports that her RLE numbness has worsened si nce neurosurgery last saw her. She also endorses [...] and contact information of next of kin: mother [place] [phone] Disposition: Acute care Code: Full This patient has been staffed with Lesly Branch MD , attending physician, who agrees with the above assessment and plan. [facility] DEPARTMENT: [id number] ICU NEURO Place of Service:- Inpatient Date of Service: 05/14/2015 CSN: [id number] Lab Results Component Value Date WBC 23.58 05/14/2015 HB 10.8 05/14/2015 HCT 33.6 05/14/2015 PLT 294 05/14/2015 MCV 84.2 05/14/2015 RDW 43.3 05/14/2015 Chemistries Last 96 Hours (or 3 results): Recent Labs 05/12/15195205/13/15647 NA 139 139 K 3.7 3.7 CL 108 107 BICARB 23 24 BUN 13 12 CR 0.67 0.64 CA 9.0 9.3 CBC with diff last 96 hours (or 3 results) Recent Labs 05/12/15202705/13/1548 WBC 11.19* 20.20* HB 12.3 12.6 HCT [...] and check patient later Yokasta Randall PGY2 [id number] Lesly Flynn MD - 8:25 AM PSTNSICU [...] due to CSF hai k, cord injury, UT, UTI, acute blood loss anemia, DVT 1. [...] DVT proph with SCDs. Lesly Branch M.D. [place], Neurology and Emergency Medicine I spent 20 minutes in direct care of this patient with over 50% spent at the patient s b eside, reviewing data, discussing the patient s care with other medical staff, charting, a nd discussion with treatment decision maker. [facility] DEPARTMENT: [id number] CRITICAL CARE Place of Service: Inpatient Date of Service: 05/14/2015 CSN: [id number] Suggested Level of Care: [address] - SUBSEQUENT HOSPITAL CARE,LEVEL III olly Hankins MD ,MPH - 05/14/2015 5:19 AM PST [...] the or iginal. NSICU Neuroscience ICU Attending Performance Tester Note I have seen and evaluated Matt [...] care Cathy Cespedes MD,PhD [facility] DEPARTMENT: [id number] ICU NEURO Place of Service:- Inpatient Date of Service: 05/13/2015 CSN: [id number] Suggested Modifier: Resident involved Suggested CPT: TO MATCHER OPERATOR Gilbert Collins MD,MPH - 05/13/2015 8:49 PM [...] Deliver y Device: None (room air) (05/13/15 07) 24 Hour Vital Min/Max: Systolic (24hrs), Av mmHg, Min:119 mmHg, Max:137 mmHgDiastolic (24hrs), Av mmHg, M in:60 mmHg, Max:75 mmHgPulse Min: 67 Max: 82 Temp Min: 36.4 C (97.5 F) Max: 36.7 C (98.1 F) Resp Min: 16 Max: 16 SpO2 Min: 95 % Max: 98 % Intake/Output Summary (Last 24 hours) at 05/13/15 0848 Last data filed at 05/13/15 07 Gross per 24 hour Intake 830 ml Output 0 ml Net 830 ml Exam: Alert, oriented x3. Speech clear, fluent. Pupils equal. Gaze conjugate. Face symmetric. Sensation: Decreased sensation to bottom of L foot, decreased sensation on R anterior thigh , R solorio and entire foot. Motor: Tri Bi WE Finance Analyst HF KE APF ADF Left 5 5 [...] dilaudid available prn pain Raegan Doss PA-C [facility] [address] [place] [address] Polly Collins MD,MPH - 05/12/2015 7:33 PM [...] section. | + +--------+ +---+ + | EUGENE CAROSTICK ONLY | Routin | 05/12/2015 | | [...] Attending | | Surgeon: Rajinder Luis MD Bricklayer Supervisor(s): Jere Story MD | | Preoperative Diagnosis: [...] | endotracheal anesthesia was induced on the [facility]. Occlusive dressings were | | placed over [...] turned back supine on | | the [facility]. She was extubated and she was taken to the recovery area in stable | | condition. At the end of the case, all instrument, sponge, and needle counts were | | correct in 2 iterations. I, Rajinder Luis MD was scrubbed and actively participated | | performing the critical portions of the operation.ZAMZAM Henry/MODLDD: | | 05/15/2015 08:21:01DT: 05/15/2015 08:59:43Job #: [id number] | | | |Rajinder Luis MD | |EZEKIEL/KELSEYL | | | | | | /[id number] | + + MAGNESIUM, PLASMA (05/17/2015 10:09 AM PST) + +-------+ + + + | Component | Value | Ref Range | Performed | Pathologist | | | | | At | Signature | + +-------+ + + + | MAGNESIUM,P | 2.0 | 1.8 - 2.5 mg/dL | [facility] [...] | + + + + + | [facility] | [address] | [place] [address] | | | SERVICES, CORE | JEAN [...] | + + + + + | [facility] | [address] | [place] [address] | | | SERVICES, CORE | JEAN [...] | | | LABORATORY | | | CONGOLESE | | | SERVICES, | | | [...] | + + + + + | [facility] | [address] | [place] [address] | | | SERVICES, CORE | JEAN [...] + | [facility] | [address] | [place] [address] | | | SERVICES, CORE | JEAN [...] | | | LABORATORY | | | CONGOLESE | | | SERVICES, | | | [...] the MDRD equation recommended by the | [facility] | | National Kidney Disease Education Program. [...] LABORATORY | [address] | [place] [address] | | | SERVICES, CORE | PARK [...] LABORATORY | [address] | [place] [address] | | | SERVICES, CORE | JEAN [...] [facility] | [address] | [place] [address] | | | SERVICES, CORE | PARK [...] | | | LABORATORY | | | CONGOLESE | | | SERVICES, | | | [...] the MDRD equation recommended by the | [facility] | | National Kidney Disease Education Program. [...] | + + + + + | [facility] | [address] | [place] [address] | | | HORACIO, CORE | JEAN [...] | + + + + + | [facility] | [address] | [place] [address] | | | SERVICES, CORE | JEAN [...] + | [facility] | [address] | [place] [address] | | | SERVICES, CORE | PARK [...] | | | LABORATORY | | | CONGOLESE | | | SERVICES, | | | [...] | + + + + + | [facility] | [address] | [place] [address] | | | SERVICES, CORE | JEAN [...] | | + +---------+ + + | [facility] DEPARTMENT OF | | | | | [...] LABORATORY | [address] | [place] [address] | | | SERVICES, CORE | PARK [...] | | | LABORATORY | | | CONGOLESE | | | SERVICES, | | | [...] the MDRD equation recommended by the | [facility] | | National Kidney Disease Education Program. [...] + | [facility] | [address] | [place] [address] | | | SERVICES, NINO | JEAN CARLOS | | | + + + + + INTRAOPERATIVE NEURO MONITORING (05/13/2015) + + + | Narrative | Performed At | + + + | Patient Name: Matt Fagan Date of : 1990 | | | Date of Test: 05/13/2015 Place of | | | Service: IP Intra Op [phone] [id number] - [id number] INTRAOPERATIVE NEURO | | | MONITORING History: [...] min(s), with modifier GY | | | 81561 - Short Latency EP's Upper AND Lower extremities [address] - | | | Central Motor EP's [...] | | | | S, Francoise T, Kleihallison | | | | | | P, Antonio H. IDH1 | | | | | | mutations asmolecular | | | | | | signature and predictive | | | | | | factor of secondary | | | | | | glioblastomas. | | | | | | ClinCancer Res. 2008 | | | | | | 1;15(46):6726-97. | | | | | | Edison Veloz et al. IDH1 and | | | | | | IDH2 mutations in | | | | | | gliomas. N Engl J Med. | | | | | | 2008Feb | | | | | | 19;360(8):925-362.3. | | | | | | Lewis [...] 2008 | | | | | | (12):2954-760. | | | | | | Rogelio [...] 2008 | | | | | | Nov24;73(21):1792-5 | | | | | | (Analyte [...] # | | | | | | [id number]. It has not | | | | [...] Lopez | | | | | | M.D.PathologistElectroni [...] | + + + + + | [facility] | [address] | [place] [address] | | | DIAGNOSTIC | [address] [...] (7q34)break-apart/ | | | | | | [id number] probe set. 50 | | | | [...] | | | | | | Probe(s): Lund | | | | | | Genomics BRAF | | | | | | break-apart (7q34) / | | | | | | [id number] (SA) (7q34) | | | | | [...] clinical | | | | | | imposer.Amended to | | | | | | [...] + + + + | [facility] | [address] | [place] [address] | | | DIAGNOSTIC | [address] [...] | A BRAF MUTATION ANALYSIS | | [facility] | | | MUTATION | (EXON 15)Specimen [...] | | | | | | Bi-directional Hyden | | | | | | sequencing with | | | | | | SOW MANAGER-clamp for | | | | | | wild-typeallele to | | | | | | increase sensitivity | | | | | | References:1. | | | | | | Tiera M, Francis W. | | | | | | Molecular predictors of | | | | | | outcome in low-grade | | | | | | glioma.Curr Opin Neurol. | | | | | | 201125(6):767-73. | | | | | | doi: | | | | | | 10.1097/WCO.[id number] | | | | | | 0217.2. Jessica CM, | | | | | | Cheo SR, Shelton | | | | | | FJ, Jena JS, Lopez Keys BE, | | | | | | Jacquie AR,Dl GUS, | | | | | | Chuckie ATOMIC PROCESS ENGINEERWarren C. | | | | | | [...] R, | | | | | | Lo JJ, Griveau A, | | | | | | Ihrie RA, Elva | | | | | | Y,Ronnie T, Kev A, | | | | | | Janna T, Omar M, | | | | | | La Nena [place], Michele C, | | | | | | MiguelCD, Luis Alberto DH. | | | | | | Cooperative interactions | | | | | | of [id number] kinase and | | | | | | PIZZ9Tkxnwh deficiency | | | | | | in pediatric malignant | | | | | | astrocytoma as a basis | | | | | | for rationaltherapy. | | | | | | Proc Natl Acad Sci U S | | | | | | A. 2011 May | | | | | | 29;109(22):0634-73. | | | | | | Dyson-Santagatitz D, Ulloa Q, | | | | | | Verkoffi K, Vena N, | | | | | | Sohail FisherK, Catarino | | | | | | DR,Shalonda TT, Zach | | | | | | KL, Iakirstie AJ, Zach | | | | | | AH, Jennifer DN, Santanory | | | | | | S. [id number] mutations | | | | | | are common in | | | | | | pleomorphic | | | | | | xanthoastrocytoma: | | | | | | diagnostic | | | | | | andtherapeutic | | | | | | implications. PLoS One. | | | | | | 2010 Mar | | | | | | 29;6(3):d58656.5. | | | | | | April G, Zora D, | | | | | | Rashad J, Demarcus W, | | | | | | Melvina H, Sidra | | | | | | C,Chantell Nieves, Feli | | | | | | P, Ritesh C, | | | | | | Sari M, Jennifer DUNCAN, | | | | | | Alivia A,Zurdo S, | | | | | | Soraya C, Keshia W, | | | | | | Reifenberger G, von | | | | | | Deimling A. Analysisof | | | | | [...] 2009 | | | | | | Rashad;12(7):761-30.7. | | | | | | Chance [...] Pathol. | | | | | | 2012Mar;139(3):069-88. | | | | | | (Analyte [...] # | | | | | | [id number]. It has not | | | | | | been cleared orapproved | | | | | | by the U.S. Food and | | | | | | Drug Administration.) | | | | | | Case reviewed | | | | | | by:Chidi Sousa, | | | | | | Matt, Ph.D. / | | | | | | Pathologist | | | | | | Rendering | | | | | | Diagnostician: | | | | | | Chidi Sousa | | | | | | | | | | | | MNacho.,Ph.D.PathologistEle | | | | | | ctronically [...] + + | [facility] | [address] | [place] [address] | | | DIAGNOSTIC | [address] [...] | | | | [facility] | | | | | | [place]. Please | | | | | | [...] into | | | | | | EVALUATOR tissue. Tumor cells | | | | [...] [place], | | | | | | Abran., | | | | | | Ph.D./NeuropathologistT: [...] block | | | | | | U4Zeiosfiklzqcxioxojqz | | | | | | stains: see IHC | | | | | | tableNo Electron | | | | | | microscopy | | | | | | performedMolecular | | | | | | genetic studies | | | | | | performedOther Molecular | | | | | | Studies: PCR for BRAF | | | | | | [id number] for BRAF | | | | | [...] | | | | | | Block N9Yaqbcksbci: | | | | | | Tumor cells | | | | | | Marker Result | | | | | | CommentGlial | | | | | | Fibrillary Acidic | | | | | | Protein | | | | | | PositiveVimentin | | | | | | PositiveOlig 2 | | | | | | HnpgaajgSL04 % | | | | | | Positive less than | | | | | | 5%PhosphoHistone 3, | | | | | | mitotic marker | | | | | | NegativeEpithelial | | | | | | Membrane Antigen | | | | | | NegativeATRX(EVALUATOR and | | | | | | [...] PositiveChromogranin | | | | | | DuedrpodAZ71 (HPCA-1) | | | | | | [...] | | | | | icakeyonna Signed 06/19/2015 | | | | | [...] [facility] | [address] | [place] [address] | | | PATHOLOGY | [address] [...] | | + +---------+ + + | [facility] DEPARTMENT OF | | | | | [...] LABORATORY | [address] | [place] [address] | | | SERVICES, | [address] [...] + | [facility] | [address] | [place] [address] | | | SERVICES, | JEAN CARLOS [...] LABORATORY | [address] | [place] [address] | | | SERVICES, CORE | JEAN [...] + + | [facility] | [address] | [place] [address] | | | SERVICES, CORE | PARK [...] | | | LABORATORY | | | CONGOLESE | | | SERVICES, | | | [...] | + + + + + | [facility] | [address] | [place] [address] | | | SERVICES, CORE | JEAN [...] + + | [facility] | [address] | [place] [address] | | | NINO LEONARD | JEAN [...] + | [facility] | [address] | [place] [address] | | | SERVICES, NINO | JEAN [...] | | | | modification) on [place] 05/16/15 at | | | | | [...] tablet | | | 1 dose, Starting [facility] 05/13/15 at | | | 8, Until Miriam 05/13/15 at 2038 | | + +---+ | | | [...] | | | | ONCE, 1 dose, Sun05/14/15 at 0430 | | AM PST | | | | + +---------+ +-----+---+---+ +---+---+ | | | +---+---+ + +---------+ +-----+---+---+ | ceFAZolin (ANCEF) 2 g in NaCl | Bag | 05/14/20 | 2 g | [...] | | | | | 0944, Until Miriam 05/20/15 at 1737, | | [...] | | | PROCEDURE ONCE, 1 dose, [facility] | | | | | | | 05/13/15 at 2230 | | | | | | + +---------+ +---------+---+---+ + +---+ | | | + +---+ | fentaNYL citrate (PF) | | | (SUBLIMAZE) injection 1 dose, | | | Starting [facility] 05/13/15 at 1925, | | | Until [facility] 05/13/15 at 2007 | | + +---+ | | | + +---+ + +-------+ +--------+---+---+ | gabapentin (NEURONTIN) capsule | Given | 05/20/20 | 300 mg | | | | 300 mg 300 mg, oral, THREE TIMES | | 15 9:29 | | | | | DAILY, First dose on [facility] 05/13/15 | | AM PST | [...] | | | | ONCE, 1 dose, [facility] 05/13/15 at 2345 | | PM [...] | | | | | NEEDED, Starting Sun05/12/15 at | | | | | | | 1820, Until Sun05/19/15 at 1510, | | | | | [...] 8:50 | | | | | dose, 05/16/15 at 1745 | | PM PST [...] | | | Until Miriam 05/13/15 at 1954, | | | | | | | shivering | | | | | | + +---------+ +---------+---+---+ + +---+ | | | + +---+ | meperidine (DEMEROL) injection | | | 1 dose, Starting Miriam 05/13/15 at | | | 1950, Until Miriam 05/13/15 at 1954 | | + +---+ | | | [...] ONCE, 1 dose, Sun | | 15 1:58 | | mL/hr | | | 05/14/15 at 0230 | | AM PST | | | | + +---------+ +---+-------+---+ +---+---+ | | | +---+---+ + +---------+ +--------+-------+---+ | NaCl 0.9 % solution 500 mL, | New Bag | 05/14/20 | 500 mL | 500 | | | intravenous, ONCE, 1 dose, Sun | | 15 3:47 | | mL/hr [...] tablet 1 dose, | | | Starting Miriam 05/13/15 at 2038, | | | Until Miriam 05/13/15 at 0 | | + +---+ | | | [...] | | DAILY, First dose on Miriam 05/13/15 | | AM PST | | [...] 10:28 | | | | | Starting Sun05/19/15 at 1728, | | PM PST | | | | | Until [facility] 05/20/15 at 1737, | | | | | | | insomnia | | | | | | + +-------+ +------+---+---+ +---+---+ | | | +---+---+ documented in this encounter
--- OUTSIDE RECORDS SUMMARY | ~2019-06-26 | XMS | Encounter Summary ---
Demographics + + + | Address | [address] | | | [place] [address] | + + + | Home Phone [...] Providers + +------+ + | Care Labor Standards Director Name | Role | Phone | [...] | Event | [address] | [address] | | | | | [facility] | [address] | | | | | Hospital Admitting | [place], [place] | | | | | Desk Located on the | [address] | | | | | 9th floor | [phone] | | | | | [place], [place] | | | | | | [address] | Raegan Kaufman, | | | | | | ,PhD [address] | | | | | | [address] | | | | | | [place], [place] | | | | | | [address] | | | | | | [phone] | | | | | | | [...]
--- OUTSIDE RECORDS SUMMARY | ~2019-06-26 | XMS | Encounter Summary ---
Demographics + + + | Address | [address] | | | [place] [address] | + + + | Home Phone [...] Team Providers + +------+ + | Care Distribution Superintendent Name | Role | Phone | + [...] | | 2017 | | AMBULATORY [address] | [address] | worker | | | | [address] | [place], | | | | | Mailcode: CH6A | [place] [address] | | | | | [place], [place] | | | | | | [address] | | | | | | [phone] | | | +--------+ + + + [...] | + +--------+ + + + | WET END OPERATOR CYTOLOGY (PAP) | Routin | 11/13/2016 | | Results for this | | | e | 2:53 PM | | procedure are in the | | | | PDT | | results section. | + +--------+ + + + documented in this encounter Results WET END OPERATOR CYTOLOGY (PAP) (11/13/2016 2:53 PM PDT) + + + + + + | Component | Value | Ref Range | Performed | Pathologist | | | | | At | Signature | + + + + + + | WET END OPERATOR | Patient:ANAID, | | [facility] | | | CYTOLOGY | QIANA MODI | | [facility] | | | | | | | | | | | | | | | | | | | | | | | | | | | | Pathology Reports | | | | | | Accession: | | | | | | [id number] | | | | | | | [...] MD | | | | | | Bank Clerk | | | | | | [...] by: | | | | | | Danii De Jesus, [id number](ASCP), | | | | | | IAC [...] [facility] | [address] | [place] [address] | | | LAB | | | | + + + + + | [facility] | [address] | [place] [address] | | | LAB | | | [...] COMBO2 | | | | | | Assay([employer] | | | | | | [...] | | | | | | Mnemonic: [id number] | | | | | | DIAGNOSTICS | | | | | | [facility] [id number] | | | | | | [place] [address] [facility], | | | | | | [place] [address] Pau | | | | | | MD AARON | | | | + + + + + + + + | Specimen | + + | | + + + + + | Narrative | Performed At | + + + | Location: [facility] | | | | [facility] | | | [facility] | + + + + + + + + | Performing | Address | City/State/Zipcode | Phone Number | | Organization | | | | + + + + + | [facility] | [address] | [place] [address] | | | LAB | | | | + + + + + | [facility] | [address] | [place] [address] | | | LAB | | | | + + + + + documented in this encounter Visit Diagnoses Not on filedocumented in this encounter"
--- OUTSIDE RECORDS SUMMARY | ~2019-06-26 | XMS | Encounter Summary ---
Demographics + + + | Address | [address] | | | [place] [address] | + + + | Home Phone [...] Team Providers + +------+ + | Care Power House Engineer Name | Role | Phone | [...] [address] | MD Princess [address] | | | | | [place] | [place], | | | | | [address] | [place] [address] | | | | | | [phone] | | | | | | | [...] | RESULT | QIANA MODI | | [facility] | | | | | | | | | | | | | | | | | | | | | | | | | | | | Routine Cultures | | | | | | PROCEDURE: | | | | | | Strep Screen | | | | | | Culture [[id number]: | | | | | | | [...] | | | | | | | [id number] SITE: | | | | | | [...] at: | | | | | | [facility] | | | | + + + + + + + + | Specimen | + + | | + + + + + + + | Performing | Address | City/State/Zipcode | Phone Number | | Organization | | | | + + + + + | [facility] | [address] | [place] [address] | | | LAB | | | [...] | CULTURE | QIANA MODI | | [facility] | | | | [...] | | | | | | | [id number] SITE: | | | | | | [...] at: | | | | | | [facility] | | | | + + + + + + + + | Specimen | + + | | + + + + + + + | Performing | Address | City/State/Zipcode | Phone Number | | Organization | | | | + + + + + | [facility] | [address] | [place] [address] | | | LAB | | | [...] [place] | [address] | [place] [address] | | | LAB | | | [...] PROBE | Performed by JEFFREY | | [facility] | | | | [facility], | | | | | | | | | | | | [address], | | | | | | [place] [address] | | | | | | [phone] | | | | | | | | | | | | [email or web address], Anthony | | | | | | [...] [place] | [address] | [place] [address] | | | LAB | | | [...] B: | | | | | | [place] [place]/CSINTERPRETI | | | | | | VE [...] by | | | | | | [facility], | | | | | | | | | | | | [address] | | | | | | [place] [address] | | | | | | [phone] | | | | | | | | | | | | www.Tailored RepublicAnthony | | | | | | MD [...] [facility] | [address] | [place] [address] | | | LAB | | | | + + + + + documented in this encounter Visit Diagnoses Not on filedocumented in this encounter"
--- OUTSIDE RECORDS SUMMARY | ~2019-06-26 | XMS | Encounter Summary ---
Demographics + + + | Address | [address] | | | [place] [address] | + + + | Home Phone [...] Providers + +------+ + | Care Power Lineman Name | Role | Phone | + [...] | Post-discharge | | 2015 | | [facility] [address] | [address] | follow-up (s/p | | | | Ave Mailcode: CH8N | [place], [place] | admission 05/12/15 - | | | | [facility] | [address] | 05/20/15: T6-T7 | | | | and Healing, | [phone] | laminectomy for | | | | | | resection of tumor) | | | | Floor [place], [place] | | | | | | [address] | | | | | | [phone] | | | +--------+ + + + [...]
--- OUTSIDE RECORDS SUMMARY | ~2019-06-26 | XMS | Encounter Summary ---
Demographics + + + | Address | [address] | | | [place] [address] | + + + | Home Phone | | + + + | Preferred Language | Unknown | + + + | Marital Status | Unknown | + + + | Rastafari Affiliation | Unknown | + + + | Race | Unknown | + + + | Ethnic Group | Unknown | + + + Author + + + | Author | [facility] | | | and [place] | + + + | Organization | [facility] | | | [...] [place], [place] | | | | | [address] | | + + + + + Care Team Providers + +------+ + | Care Plasterer Rough Name | Role | Phone | + [...] [place] | | | | | | [address] | | | | | | [phone] | | | +--------+ + + + [...] T?MRN: | | | | | | [id number] | | | [id number] | | | D Care | | | | | | Guidel | | | calos | | | from | | | [place] | | | | | | Health [...] | | | lo, | | | [place] | | | ia | | | [...] | | | 2017 | | | [place] | | | | | | Health [...] H. | | | | | | [place]. | | | [place] | | | [...] | | | 2017 | | | [place] | | | | | | Health [...] Visits | | | | | | [place] | | | | | | Health [...]
--- OUTSIDE RECORDS SUMMARY | ~2019-06-26 | XMS | Encounter Summary ---
Demographics + + + | Address | [address] | | | [place] [address] | + + + | Home Phone [...] Providers + +------+ + | Care Senior Commissions Analyst Name | Role | Phone | [...] | | | | | tumor | [facility] [place] | | | | | | Procedures | [address] | | | | | | MRI SPINE | Phone: | | | | | | THOR / LUMB | [phone] | | | | | | WWO CONTRAST | Fax: | | | | | | | [phone] | | + +--------+ + + + [...] | Glioneuronal | MD [address] | | | | | tumor | [address] | Loop | | | | | Procedures | Hair Guti[address]rez | Mailcode: | | | | | CONSULT TO | Rd | [address] | | | | | NEUROLOGY | [place], [place] | Physician's | | | | | | [address] | Pavilion | | | | | | Phone: | [place], [place] | | | | | | [phone] | [address] | | | | | | Fax: | Phone: | | | | | | [phone] | [phone] | | | | | | | Fax: | | | | | | | [phone] | +--------+--------+ + + + + Consultation [...] | | | | | Glioneuronal | [address] | [address] | | | | | tumor | [address] | Hair Guti[address]rez | | | | | Procedures | [place], [place] | [place], | | | | | CONSULT TO | [address] | [place] | | | | | RADIATION | Phone: | [phone] | | | | | ONCOLOGY | [phone] | Phone: | | | | | | Fax: | [phone] | | | | | | [phone] | Fax: | | | | | | | [phone] | +--------+--------+ + + + + Encounter Details +--------+ + + + + | Date | Type | Department | Care Team | Description | +--------+ + + + + | 10/11/ | Documentati | Neurosurgery at | Tony Mancilla | | | 2019 | on | [facility] [address] Vivek Fisher MD [address] [facility] | | | | | Shwetha Mailcode: CH8N | [address] | | | | | [facility] | [place], [place] | | | | | natacha Carbajal, | [address] | | | | | [place] [address] [facility] | [phone] | | | | | [place], [place] | | | | | | [address] | | | | | | [phone] | | | +--------+ + + + [...] of this encounter Plan of Treatment + +---------+--------+ [...]
--- OUTSIDE RECORDS SUMMARY | ~2019-06-26 | XMS | Encounter Summary ---
Demographics + + + | Address | [address] | | | [place] [address] | + + + | Home Phone [...] Team Providers + +------+ + | Care Rn Angiography Name | Role | Phone | + [...] | | Shwetha Mailcode: CH8N | Ave [place], [place] | | | | | [facility] | [address] | | | | | and [place], | [phone] | | | | | [facility] | | | | | | Floor [place], [place] | | | | | | [address] | | | | | | [phone] | | | +--------+ + + + [...]
--- OUTSIDE RECORDS SUMMARY | ~2019-06-26 | XMS | Encounter Summary ---
Demographics + + + | Address | [address] | | | [place] [address] | + + + | Home Phone [...] Team Providers + +------+ + | Care Box Sealing Inspector Name | Role | Phone | + [...] | | | | | Procedures | [facility], | | | | | | OCCUPATIONAL | [place] | | | | | | THERAPY | [address] | | | | | | REFERRAL | Phone: | | | | | | | [phone] | | | | | | | Fax: | | | | | | | [phone] | | + +--------+ + + + [...] | | | | | Procedures | [facility], | | | | | | PHYSICAL | [place] | | | | | | THERAPY | [address] | | | | | | REFERRAL | Phone: | | | | | | | [phone] | | | | | | | Fax: | | | | | | | [phone] | | +--------+--------+ + + + + [...] | | | Weakness of | Rajinder Fishre MD | Rajinder Fisher MD | | | | | right lower | [address] | [address] | | | | | extremity | [address] | Ave | | | | | Hyperreflexi | [place], [place] | [place] | | | | | a 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[address] | [address] | | | | | spine tumor | Phone: | Phone: | | | | | Procedures | [phone] | [phone] | | | | | SURGICAL | Fax: | Fax: | | | | | CASE REQUEST | [phone] | [phone] | + +--------+ + + + + [...] + + | 10/01/ | Hospital | [facility] [address] | Tavo English | | | 2019 - | Encounter | [place] [address] Tierra Mai MD [address] | | | | | [facility] [place], | [facility] [address] | | | 10/08/ | | [place] [address] | [place], [place] | | | 2018 | | [phone] | [address] | | | | | | [phone] | | | | | | | | | | | | Nanette Chapin MD | | | | | | [address] | | | | | | [facility] [address] | | | | | | [place], [place] | | | | | | [address] | | | | | | [phone] | | | | | | | | | | | | Shahram Medina MD | | | | | | [address] | | | | | | [place], [place] | | | | | | [address] | | | | | | [phone] | | | | | | | | | | | | Rajinder Luis MD | | | | | | [address] | | | | | | [place], [place] | | | | | | [address] | | | | | | [phone] | | | | | | | [...] Rajinder Luis MD PCP: PATRIC Flores Service: [facility] Neurosurgery Diagnoses Principal Final Diagnosis: Progressive thoracic [...] on the 1 2th floor at the [facility] on the [facility] located at [address] [place] [address]. Please call [phone] if you have any questions or concerns [...] (10/05/18 1244) Discharge Patient To: Interhospital Transfer [facility] Does patient have a planned readmission: No Discharge Summary Completed?: Yes. 10/08/2018 Discharging Provider: RAHEEM DOSS PA-C Date Completed: 10/08/2018 Time Completed: 10:36 AM Discharging Attending: Rajinder Luis MD [facility] [address] [place] [address] documented in this encounter Medications at Time [...] Intake/Output Summary (Last 24 hours) at 10/07/18 0866 Last data filed at 10/07/18 0535 Gross [...] in bed, on ppx lovenox. Dispo: To [place] once accepted, hopeful for today. RAHEEM DOSS PA-C [facility] [address] [place] [address] dams, PHILIPPE Mena - 10/07/2018 8:33 AM [...] Intake/Output Summary (Last 24 hours) at 10/07/18 0824 Last data filed at 10/07/18 0535 Gross [...] To [place] once accepted. RAHEEM DOSS PA-C [facility] [address] [place] [address] Daniel Arechiga MD - 10/06/2018 11:06 AM [...] WORRELL Routine Cultures PROCEDURE: Strep Screen Culture [[id number]: 11/05/2017 16:4 4 PDT P1] SOURCE: Throat [...] Please contact the neurosurgery [place] on-call pager [phone] with questions. Daniel Barahona M.D. Neurosurgery PGY-1 [...] 10/05/18 1103 Last data filed at 10/05/18 0931 Gross per 24 hour Intake 2362 ml [...] control, planning for IPR Elif Mcclain PA-C [facility] [address] [place] [address] Julio Rendon PA-C - 10/04/2018 8:39 AM [...] noted deficits below Delt Tri Bi WE Plans Examiner HF KE APF ADF Left 5 5 [...] SPINE THOR / LUMB WWO CONTRAST Order: [id number] Performed: 10/01/2018 17:52 Status: Final result Visible [...] Secondary to clinical course Julio Wahl PA-C [facility] [address] [place] [address] Derick Dave MD,P hD - 10/03/2018 10:00 [...] DERICK REYES MD,PhD Resident Neurological Surgery Pgr. [id number] dams, Raheem Nieves PA-C - 10/03/2018 8:21 [...] Dispo: To [place] today. RAHEEM DOSS PA-C [facility] [address] [place] [address] Rajinder Antony MD - 10/02/2018 7:51 PM [...] surgery? No Chris Cano MD Neurosurgery PGY2 36495 FoJulio lobo PA-C - 10/02/2018 8:22 AM [...] noted deficits below Delt Tri Bi WE Plans Examiner HF KE APF ADF Left 5 5 [...] SPINE THOR / LUMB WWO CONTRAST Order: [id number] Performed: 10/01/2018 17:52 Status: Final result Visible [...] clinical course, pending surgery Julio Wahl PA-C [facility] [address] [place] [address] documented in this enc ounter Plan of [...] Attending | | Surgeon: Rajinder Luis MD Equal Opportunity Assistant(s): Joby Thibodeaux MD. | | Preoperative Diagnosis: [...] the operating room on a | | [facility]. General endotracheal anesthesia was induced by the Anesthesia team | | without complication. The neuromonitoring team placed the necessary electrodes for | | monitoring of somatosensory evoked potentials and motor evoked potentials. The patient | | was then placed in a prone position [facility] [place] [facility]. All pressure points | | were [...] 10/03/2018 | | 19:49:32DT: 10/03/2018 20:24:12Job #: [id number] | + + X-RAY SPINE THORACIC 1 [...] MARQUAM | [address] | [place], [place] | | | HILL, POINT OF CARE | [address] | [address] | | | TESTS | | | [...] prior | | | | | | [id number], low grade | | | | | [...] resection | | | | | | ([id number]), with | | | | | | [...] | | | | | | y, [facility] & | | | | | | [facility] | | | | | | [...] number | | | | | | [id number].A. Spine, | | | | | | [...] | + + + + + | [facility] | [address] | [place] [address] | | | PATHOLOGY | [address] | | | + + + + + INTRAOPERATIVE NEURO MONITORING (10/03/2018) + + + | Narrative | Performed At | + + + | Patient Name: Qiana Worrell Date of : 1990 | | | Date of Test: 10/03/2018 Place of | | | Service: IP Intra Op [id number] INTRAOPERATIVE NEURO | | | MONITORING IOM: [...] | | | Norma Jordan MD, MA, [facility] Price Lister of Neurology | | | Suggested CPT: G0453 - IOM Continuous divided attention to single | | | patient x 10 @ 15 min(s[place] [address] - Short Latency EP's | | | Upper AND Lower extremities [address] - Central Motor EP's Upper AND | [...] LABORATORY | [address] | [place] [address] | | | SERVICES, | [address] [...] LABORATORY | [address] | [place] [address] | | | SERVICES, | [address] [...] | + + + + + | [facility] | [address] | [place] [address] | | | SERVICES, | [address] [...] | + + + + + | [facility] | [address] | [place] [address] | | | SERVICES, CORE | JEAN [...] | + + + + + | [facility] LABORATORY | [address] | [place] [address] | | | NINO LEONARD | JEAN [...] | | | LABORATORY | | | MALTESE | | | SERVICES, | | | [...] the MDRD equation recommended by the | [facility] | | National Kidney Disease Education Program. [...] | + + + + + | [facility] | [address] | [place] [address] | | | SERVICES, CORE | JEAN [...] LABORATORY | [address] | [place] [address] | | | SERVICES, CORE | [address] | | | + + + + + ED INFORMATION EXCHANGE (10/01/2018 12:03 PM PDT) + + | Specimen | + + | | + + + + + | Narrative | Performed At | + + + | [id number] [id number] Criteria Met Has | [facility]LECTIVE | | Guidelines PDMP Security and Safety No recent Security Events | MEDICAL | | currently on file ED Care Guidelines from [facility] and | TECHNOLOGIES | | [facility] Last Updated: 02/08/17 11:58 AM [facility] | | | Emergency DepartmentSuggested Care RecommendationsAuthor: Cecily Najera, | | | [facility] Mpnhpt Update: | | | 02/08/2017Medical:- Thoracic intramedullary [...] provider/clinic: Dr. Princess Chowdary, | | | [facility], - Neurosurgery: [facility], | | | Rajinder Luis MD and PHILIPPE Mckeon - [phone]-Insurance care | | | coordinator: Estelita, -Housing: living in [facility] with | | | mother Judit [...] E.D. Visit Count (12 mo.) Facility Visits [facility] and | | | [facility] 1 [facility] 1 Total 2 Note: | | | Visits indicate total known visits. Recent Emergency Department | | | Visit Summary Date Facility City State Type Diagnoses or Chief | | | Complaint Oct 01, 2018 [facility] [place] | | | [place] Emergency 10,800. MRI Jul 06, 2018 [facility]. | | | 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 Inpatient Rehab Spinal | [...] | | | unspecified Jul 06, 2018 [facility] | | | [place] Neuro Surgery 10,151. 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, soft tissue, and | | | skin Care Providers Provider PRC Type Phone Fax Service | | | Dates MARBIN CHAPIN, TENANT RELATIONS COORDINATOR- Nurse Practitioner: Family Current | | | MADHAVI MONTANEZ LCSW User Acceptance Tester: Clinical (503) | | | [phone] Current CORNELIO VILLASENOR , [place] Supervisor Trust Accounts (086) | | | [phone] Current [employer] Portal This patient | | | has registered at the [facility] | | | Emergency Department For more information visit: | | | [email or web address] | | | [email or web address] andnbsp PLEASE NOTE: [...] | or completeness of information provided. 2019 [employer] | | | [employer]. - [email or web address] Adventure | | + + + + + | Procedure Note | + + | Service Account, Rtf Results Inbound - 10/01/2018 12:04 PM PDT Formatting of this | | note might be different from the original.COLLECTIVE?NOTIFICATION?10/01/2018 | | 12:01?QIANA WORRELL? [facility] Has Guidelines PDMPSecurity and | | SafetyNo recent Security Events currently on fileED Care Guidelines from [facility] | | and [facility] Updated: 02/08/17 11:58 AM [facility] Emergency DepartmentSuggested | | Care RecommendationsAuthor: Cecily Najera, LCSWAuthor Tilvtq | | Update: 02/08/2017Medical:- Thoracic intramedullary spinal [...] provider/clinic: Dr. Sparks | | Karma Chowdary [facility], - Neurosurgery: Rajinder QURESHI | | MD Toby and PHILIPPE Mckeon - [phone]-Insurance managed care coordinator: Estelita, | | [phone]-Housing: living in [facility] with mother Judit and 4 y/o [...] 0 E.D. Visit Count (12 mo.)Facility Visits [facility] | and [facility] 1 [facility] 1 Total 2 Note: Visits indicate total | | known visits. Recent Emergency Department Visit SummaryDate Facility [facility] State Type | | Diagnoses or Chief Complaint Oct 01, 2018 [facility] [place] | | Emergency 10,800. MRI Jul 06, 2018 [facility] 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 Inpatient Rehab | | Spinal [...] dysfunction of bladder, unspecified Jul 06, 2018 [facility] | | [place] Neuro Surgery 10,151. Thoracic Spine Tumor 18,400. Neoplasm of | | unspecified behavior of bone, soft tissue, and skin Care ProvidersProvider PRC Type | | Phone Fax Service Dates MARBIN CHAPIN, TENANT RELATIONS COORDINATOR-BC Nurse Practitioner: Family Current | | MADHAVI MONTANEZ LCSW User Acceptance Tester: Clinical Current [facility], | | CORNELIO Bates [place] Supervisor Trust Accounts Current [employer] PortalThis | | patient has registered at the [facility] Emergency Department | | For more information visit: | | [email or web address] andnbsp | | PLEASE NOTE: 1. Any [...] completeness of information | | provided.? 2019 [employer] - [email or web address] | |Oct 01, 2018 [facility] [place] Emergency | | 10,800. MRI | | | |Jul 06, 2018 [facility] 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 Neuro Surgery | | 10,151. Thoracic Spine Tumor | | 18,400. 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in | | | | | | | |Care Providers | |Provider PRC Type Phone Fax Service Dates | |MARBIN CHAPIN FNP-BC Nurse Practitioner: Family Current | |MADHAVI MONTANEZ LCSW User Acceptance Tester: Clinical Current | |CORNELIO VILLASENOR , [place] Supervisor Trust Accounts Current | | | |[employer] Portal | |This patient has registered at the [facility] Emergency Departmen t | |For more information visit: [email or web address] | |andnbsp PLEASE NOTE: | | 1. [...] information provided. | | | |? 2019 [employer]. - [email or web address] | + + + + + + + | Performing | Address | City/State/Zipcode | Phone Number | | Organization | | | | + + + + + | [facility] | [address], | [place], [place] | [phone] | | TECHNOLOGIES | [address] | [address] | | + + + + + [...] 2:03 | | | | | dose, [facility] 10/01/18 at 1430 | | PM PDT [...] | | | | | CONTINUOUS, Starting [facility] 10/03/18 | | PM PDT | [...] | | | | | CONTINUOUS, Starting [facility] 10/03/18 | | AM PDT | [...] 4:43 | | | | | dose, [facility] 10/01/18 at 1715 | | PM PDT [...] | | | | ONCE, 1 dose, [facility] 10/04/18 at 0830 | | AM PDT [...]
--- OUTSIDE RECORDS SUMMARY | ~2019-06-26 | XMS | Encounter Summary ---
Demographics + + + | Address | [address] | | | [place] [address] | + + + | Home Phone [...] Team Providers + +------+ + | Care Branch Service Associate Name | Role | Phone | + +------+ + | No Pcp Per Patient | PCP | Unavailable | + +------+ + Encounter Details +--------+--------+ + + + | Date | Type | Department | Care Team | Description | +--------+--------+ + + + | 07/06/ | Intake | Transfer Center | | N/A | | 2018 | | [address] | | | | | | [place], | | | | | | [place] [address] | | | +--------+--------+ + + + [...]
--- OUTSIDE RECORDS SUMMARY | ~2019-06-26 | XMS | Encounter Summary ---
Demographics + + + | Address | [address] | | | [place] [address] | + + + | Home Phone [...] Author + + + | Author | [facility] | + + + | Organization | [facility] | + + + | [...] Team Providers + +------+ + | Care Hydraulic Barker Operator Name | Role | Phone | [...] | | | | Franko [facility] | [facility] | | | | | [facility] Admitting | [place] [address] | | | | | Desk Located on the | [phone] | | | | | 9th floor | | | | | | [place], [place] | [address] | | | | | [address] | GASTON Alvarenga | | +--------+ + [...] al | GASTON; Standard; Right; Radial; | hCantal [place]ga | Mary Marshall RN | | [...] 03/23/16 08 by | | berenice | BRIDGE PAINTER HELPER; Right; Hand; 18 g; None; | Chantal [...]
--- OUTSIDE RECORDS SUMMARY | ~2019-06-26 | XMS | Encounter Summary ---
Demographics + + + | Address | [address] | | | [place] [address] | + + + | Home Phone [...] Team Providers + +------+ + | Care Feed Adviser Name | Role | Phone | + [...] | | | | | | [facility] | | | | | | [facility] Admitting | | | | | | Desk Located on the | | | | | | 9th floor | | | | | | [place], [place] | | | | | | [address] | | | +--------+ + + + [...]
--- OUTSIDE RECORDS SUMMARY | ~2019-06-26 | XMS | Encounter Summary ---
Demographics + + + | Address | [address] | | | [place] [address] | + + + | Home Phone [...] Team Providers + +------+ + | Care Division Superintendent Name | Role | Phone | [...] | | | | Mailcode: CH6A | [facility] [place] | | | | | [place], [place] | [place], [place] | | | | | [address] | [address] | | | | | [phone] | | | +--------+ + + + [...]
--- OUTSIDE RECORDS SUMMARY | ~2019-06-26 | XMS | Encounter Summary ---
Demographics + + + | Address | [address] | | | [place] [address] | + + + | Home Phone [...] Team Providers + +------+ + | Care Partner Integration Planner Name | Role | Phone | + [...] | | | | MRI SPINE | [facility], | Mailcode: | | | | | THORACIC WWO | [place] | [address] | | | | | CONTRAST | [address] | [place] | | | | | [place] [facility], | Phone: | Research | | | | | DORSAL SPINE | [phone] | Center | | | | | COMBO | Fax: | [place], [place] | | | | | | [phone] | [address] | | | | | | | Phone: | | | | | | | [phone] | | | | | | | Fax: | | | | | | | [phone] | +--------+--------+ + + + + Reason [...] | | | | MRI SPINE | [facility], | Mailcode: | | | | | THORACIC WWO | [place] | [address] | | | | | CONTRAST | [address] | [place] | | | | | [place] [facility], | Phone: | Research | | | | | DORSAL SPINE | [phone] | Center | | | | | COMBO | Fax: | [place], [place] | | | | | | [phone] | [address] | | | | | | | Phone: | | | | | | | [phone] | | | | | | | Fax: | | | | | | | [phone] | +--------+--------+ + + + + Encounter Details +--------+ + + + + | Date | Type | Department | Care Team | Description | +--------+ + + + + | 11/26/ | Hospital | Radiology/Imaging | Raegan Doss, | | | 2018 | Encounter | Lab at [facility] [address] | PA-C [address] | | | | | [address] Mailcode: | Ave [facility], [place] | | | | | [address] | [address] | | | | | Health and Healing, | [phone] | | | | | [facility] , 3rd | | | | | | Floor [place], [place] | | | | | | [address] | | | | | | [phone] | | | +--------+ + + + [...] MD 11/26/2017 10:35 PM | |Preliminary: Shahab Eliazbeth MD | + + + +---------+ + [...]
--- OUTSIDE RECORDS SUMMARY | ~2019-06-26 | XMS | Encounter Summary ---
Demographics + + + | Address | [address] | | | [place] [address] | + + + | Home Phone [...] Team Providers + +------+ + | Care General Supervisor Name | Role | Phone | [...] Morales | | | | Note-Transc | [place] | [place] | | | | juanito | [address] | [address] | | | | | | | [...]
--- OUTSIDE RECORDS SUMMARY | ~2019-06-26 | XMS | Encounter Summary ---
Demographics + + + | Address | [address] | | | [place] [address] | + + + | Home Phone [...] Team Providers + +------+ + | Care Field Support Representative Name | Role | Phone | + +------+ + | No Pcp Per Patient | PCP | Unavailable | + +------+ + Encounter Details +--------+ + + + + | Date | Type | Department | Care Team | Description | +--------+ + + + + | 06/04/ | Procedure | Radiology/Imaging | | | | 2017 | Pass | Lab at [facility] [address] | | | | | [address] Mailcode: | | | | | | CH3G [facility] | | | | | | Health and Healing, | | | | | | [facility], 3rd | | | | | | Floor [place], [place] | | | | | | [address] | | | | | | [phone] | | | +--------+ + + + [...]
--- OUTSIDE RECORDS SUMMARY | ~2019-06-26 | XMS | Encounter Summary ---
Demographics + + + | Address | [address] | | | [place] [address] | + + + | Home Phone [...] Team Providers + +------+ + | Care Javascript Software Engineer Name | Role | Phone | [...] | | | | Mailcode: CH6A | [facility] [place] | | | | | [place], [place] | [place], [place] | | | | | [address] | [address] | | | | | [phone] | | | +--------+ + + + [...]
--- OUTSIDE RECORDS SUMMARY | ~2019-06-26 | XMS | Encounter Summary ---
Demographics + + + | Address | [address] | | | [place] [address] | + + + | Home Phone [...] Author + + + | Author | [facility] | + + + | Organization | [facility] | + + + | Address [...] Team Providers + +------+ + | Care Pile Driving Nozzleman Name | Role | Phone | + [...] | spinal cord | [place], [place] | [place], [place] | | | | | Procedures | [address] | [address] | | | | | REQUEST TO | Phone: | Phone: | | | | | SURGERY | [phone] | [phone] | | | | | CAREER INFORMATION SPECIALIST | Fax: | Fax: | | | | | [place] [facility] | [phone] | [phone] | | | | | SPINAL | | | | | | | TUMOR,XDURAL | | | | | | | ,[place]OR [place] | | | | | | | [facility] | | | | | | | SPIN | | | | | | | MARCELINO,INDUR,XM | | | | | | | ED,[place] | | | | | | | [facility] | | | | | | | SPIN | | | | | | | MARCELINO,INDUR,IN | | | | | | | MED,[place]OR [place] | | | | | | | [...] | Surgery | Spinal cord | Dept [facility] | Rajinder Fisher MD | | | | | tumor ED | [address] | [address] | | | | | f/u T5-10 | [address] | Ave | | | | | spinal cord | Rd [facility] | [place], [place] | | | | | tumor with | Hospital | [address] | | | | | right leg | | Phone: | | | | | weakness. | [address] | [phone] | | | | | | Phone: | Fax: | | | | | | [phone] | [phone] | +--------+--------+ + + + + Encounter Details +--------+---------+ + + + | Date | Type | Department | Care Team | Description | +--------+---------+ + + + | 01/16/ | Office | Neurosurgery at | Rajinder Luis MD | Spinal cord tumor | | 2016 | Visit | [facility] [address] | [address] | (Primary Dx); | | | | Ave Mailcode: CH8N | [place], [place] | Thoracic spine tumor | | | | [facility] | [address] | | | | | and [place], | [phone] | | | | | [facility] | | | | | | Floor | | | | | | [address] | | | | | | [phone] | | | +--------+---------+ + + + [...] relocated to a living arrangement closer to [facility]. She now lives in [place]. She is accompanied by her almost 1-year-old [...] to the neuro-oncology tumor Board as well. Rajinder uLis MD I spent 20 minutes [id number]-mz-skby with the patient. I spent more than [...]
--- OUTSIDE RECORDS SUMMARY | ~2019-06-26 | XMS | Encounter Summary ---
Demographics + + + | Address | [address] | | | [place] [address] | + + + | Home Phone [...] Team Providers + +------+ + | Care Freelance Recruiter Name | Role | Phone | + [...] | PHYSICAL | [place], | [facility] | | | | | THERAPY | [place] | for Health | | | | | REFERRAL | [address] | and Healing, | | | | | | Phone: | [address], | | | | | | [phone] | [address] | | | | | | Fax: | [place], [place] | | | | | | [phone] | [address] | | | | | | | Phone: | | | | | | | [phone] | | | | | | | Fax: | | | | | | | [phone] | +--------+--------+ + + + + Encounter Details +--------+---------+ + + + | Date | Type | Department | Care Team | Description | +--------+---------+ + + + | 10/19/ | Office | [facility] | Myrna Castelan, | Spinal cord tumor | | 2016 | Visit | Therapy Services at | DPT | (Primary Dx) | | | | [facility][Note 3] | | | | | | [address] | | | | | | Mailcode: CH3P | | | | | | [facility] | | | | | | and Healing, | | | | | | [address] | | | | | | Floor [place], [place] | | | | | | [address] | | | | | | [phone] | | | +--------+---------+ + + + [...] Diagnosis/ICD-9: D49.7 Spinal cord tumor Insurance: Payor: [employer] / Plan: [employer] [place] / Product Type: Medicaid / Service period from: 10/20/2015 to: 10/20/2015 Number visits used/authorized: 07/09 (eval and auth) Update Goals/Outcome: 11/19/2015 [facility] COMPREHENSIVE OUTPATIENT EVALUATION SUBJECTIVE: History of Presenting Problem: Matt Fagan is a 24 y.o. female who has been referred to Outpatient Physical Therapy services due to concerns regarding: balance problems, weaknes s, fatigue and decreased mobility. Matt presents to outpatient physical therapy following most recent admission to [facility] following tumor expansion resulting in surgery on [...] female who was most recently discharged from [facility] following t umor expansion and T6-10 hemilaminectomies [...] physical therapy when she relocat to the [facility]. Impairments are limiting pt's ability to participate in basic ADLs, work, and recreational activities without restrictions. Matt requires services that can be safely and effectivel y performed only by a qualified therapist to address the above mentioned impairments and act ivity limitation. Functional Goals: Date established Patient will perform >20 reps of sit to marketing coordinator 30 seconds to demonstrate improved functio nal [...] status. Myrna Castelan DPT [facility] 1ST FLOOR [address] [place] Mailcode: [address] [address] Payment Authorization Request and Status Report: [facility] Outpatient Therapy Center Contact Contact Billing Provider Number: [id number] Therapist Provider Number: [id number] Referring Prescribing Practitioner: Raegan Doss PA-C Primary Diagnosis/ICD-9: ICD-10-CM ICD-9-CM 1. Spinal cord tumor D49.7 239.7 [place] PHYS THERAPY EVALUATION [place] GAIT TRAINING THERAPY Prescribing Practitioner Provider Number: [facility] Physician [id number]. Outside [facility] Physician: _ Proposed PA Start Date: Date PA is approved. Procedure Codes: Physical Therapy Evaluation 09326 Therapeutic Exercise 06445 Therapeutic Activities 07416 Gait Training 86065 Neuromuscular Reeducation 24806 Modalities Codes: None Minutes per session: 45 [...] | + +--------+ + + + | [place] GAIT TRAINING | Routin | 10/20/2015 | Spinal cord tumor | | | THERAPY | e | 4:06 PM | | | | | | PDT | | | + +--------+ + + + | [place] PHYS THERAPY | Routin | 10/20/2015 | [...]
--- OUTSIDE RECORDS SUMMARY | ~2019-06-26 | XMS | Encounter Summary ---
Demographics + + + | Address | [address] | | | [place] [address] | + + + | Home Phone [...] Team Providers + +------+ + | Care Development Officer Name | Role | Phone | [...] | | 2016 | | [facility] | [address] | FOR RESECTION OF | | | | [address] [facility] | [place], [place] | INTRINSIC SPINAL | | | | Hospital Admitting | [address] | CORD TUMOR | | | | Desk Located on the | [phone] | | | | | 9th floor | | | | | | [facility] [place] | | | | | | [address] | | | +--------+---------+ + + + [...] Luis MD PCP: Clare Chowdary MD Service: [facility] Neurosurgery Diagnoses Principal Final Diagnosis: 1. Residual [...] resections (05/2015, 09/2015). The patient was admitted [facility] on 03/21/2016 for a right-sided T8 [...] patient was felt [facility], and th e patient and/or family members agree with [...] THIS IF YOU ARE STILL ADMITTED AT [facility]. This will be on the 8th floor at the [facility] the [facility] located at [address] [place] [address]. Pleas e call [phone] if you have any questions or concerns [...] (03/28/16642) Discharge Patient To: Inpatient Rehab - [facility] Does patient have a planned readmission: No Discharge Summary Completed?: Yes. 03/28/2016 Discharging Provider: Raegan Doss PA-C Date Completed: 03/28/2016 Time Completed: 7:46 AM Discharging Attending: Rajinder Lusi MD [facility] [address] [place] [address] documented in this encounter Progress Notes Raegan [...] moderate swelling under skin, no erythema, dry. Chandler in place. Sensation: LT sensation at pre-op [...] open to air. Okay to wash daily. Chandler will need to be removed at 2 weeks post-op, on 04/05. This can be completed at [facility] or at the [facility] follow up visit. CV: HD stable. Pulm: [...] bed. On ppx Lovenox qHS. Dispo: To [facility] today at 11am. Will see patient back in clinic in 1 month with a repeat thora cic MRI. Raegan Doss PA-C [facility] [address] Formerly named [facility] [address] dams, PHILIPPE Mena - 03/27/2016 4:51 PM [...] Thoracic incision: flat, intact, mild erythema, dry. Chandler present. Sensation: LT sensation decreased and patchy [...] dispo to [facility] tomorrow. Raegan Doss PA-C [facility] [address] [id number] [place] [address] Sumeet Malone MD - 03/26/2016 9:23 AM [...] Consult to physiatry with likely placement at [facility]. PT recs IPR. 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 Plan to repea t MRI in one month and evaluation for possible radiation needs at that time. HEENT/Derm: Menthol drops prn mouth soreness. Routine wound care to spinal incision - pleas e leave open to air. Okay to wash on 03/25. Chandler will need to be removed at 2 [...] Dispo: Pending medical course, likely IPR at [facility]. Appreciate CM following. Sumeet Ross MD Neurological [...] Consult to physiatry with likely placement at [facility]. PT recs IPR. 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 Plan to repea t MRI in one month and evaluation for possible radiation needs at that time. HEENT/Derm: Menthol drops prn mouth soreness. Routine wound care to spinal incision - pleas e leave open to air. Okay to wash on 03/25. Chandler will need to be removed at 2 [...] note might be different from the sangeeta lYaz Neurosurgery Progress Note Hospital Day:3 Author; Kacey Pimentle PA-C Attending Physician: Rajinder Luis MD Interval [...] sensation intact in all 4 extremities Motor: Die Sinking Machine Operator Bicep Tricep Delt R 5 5 5 [...] to evaluate patient for possible admission to [facility]. Oncology: Pathology in process. Likely recurrent/residual low-grade [...] Dispo: Pending medical course. Kacey Pimentel PA-C [facility] [address] Formerly named [facility] [id number] Raegan Plamer PA-C - 03/23/2016 7:58 AM PDT Neurosurgery [...] O2 Delivery Device: None (room air) (03/23/16 8337) 24 Hour Vital Min/Max: Systolic (24hrs), Av [...] Intact in BUE. Motor: Full strength throughout 5/5 - B, T, polisher aluminum, HF, KE, APF, ADF Daniels catheter in [...] to evaluate patient for possible admission to [facility]. HEENT/Derm: Menthol drops prn mouth soreness. Routine [...] Dispo: Pending medical course. Raegan Doss PA-C [facility] [address] [id number] [place] [address] Yokasta Pizano MD - 03/22/2016 5:30 PM [...] consult per patient's request Yokasta Randall PGY3 [id number] Cesar Najera MD - 03/22/20 16 3:05 [...] [facility] | [address] | [place] [address] | | | SERVICES, CORE | PARK [...] | | | LABORATORY | | | [place]ESE | | | SERVICES, | | | [...] the MDRD equation recommended by the | [facility] | | National Kidney Disease Education Program. [...] | + + + + + | [facility] | [address] | [place] [address] | | | SERVICES, CORE | PARK [...] | + + + + + | [facility] | [address] | [place] [address] | | | SERVICES, NINO | PARK [...] | | | LABORATORY | | | [place]ESE | | | SERVICES, | | | [...] | + + + + + | [facility] | [address] | [place] [address] | | | SERVICES, CORE | JEAN [...] | | | GLUCOSE, | | | PATTY | | | POC | | | [...] [facility] | [address] | [place], [place] | | | ZELALEM HERRERA OF NURIA | [facility] | [address] | | | TESTS | | | [...] | + + + + + | [facility] | [address] | [place] [address] | | | SERVICES, CORE | JEAN [...] | | | LABORATORY | | | [place]ESE | | | SERVICES, | | | [...] | + + + + + | [facility] | [address] | [place] [address] | | | SERVICES, NINO | JEAN [...] (H) | 60 - 99 mg/dL | [facility] - | | | GLUCOSE, | | [...] [facility] | [address] | [place], [place] | | | JAVIER POINT OF CARE | [address] | [address] | | | TESTS | | | [...] [facility] | [address] | [place], [place] | | | ZELALEM HERRERA OF CARE | [address] | [address] | | | TESTS | | | [...] [facility] | [address] | [place], [place] | | | ZELALEM HERRERA OF CARE | [address] | [address] | | | TESTS | | | [...] [facility] | [address] | [place], [place] | | | JAVIER POINT OF CARE | [address] | [address] | | | TESTS | | | | + + + + + OPERATION RECORD (03/24/2016 9:53 AM PDT) + + | Transcriptions | + + | Rajinder Luis MD - 03/22/2016 4:04 PM PDT Date of Service: 03/22/2016 Attending | | Surgeon: Rajinder Luis MD Training And Development Officer(s): Thomas oGrman, | | Matt, Ph.D. Preoperative Diagnoses: 1. Residual glioneuronal | [...] was closed primarily using a running 5-0 Van Buren-Thaddeus suture in a locking fashion. At | | the lowest incision, the dural tacking sutures were crossed. The dura was also closed | | in primary fashion using a running 5-0 Van Buren-Thaddeus suture in locking fashion. These dural | [...] 03/22/2016 12:20:45DT: 03/22/2016 | | 16:04:07Job #: [id number] | + + CBC (HEMOGRAM) ONLY (03/24/2016 [...] | + + + + + | [facility] | [address] | [place] [address] | | | SERVICES, CORE | PARK [...] | | | LABORATORY | | | [place]ESE | | | SERVICES, | | | [...] | + + + + + | [facility] | [address] | [place] [address] | | | SERVICES, CORE | [address] | | | + + + + + CAPILLARY BLOOD GLUCOSE (NO CHG), TOSHIA (03/23/2016 11:02 PM PDT) + +---------+ + [...] [facility] | [address] | [place], [place] | | | ZELALEM HERRERA OF CARE | [address] | [address] | | | TESTS | | | [...] [facility] | [address] | [place], [place] | | | ZELALEM HERRERA OF CARE | [address] | [address] | | | TESTS | | | [...] (H) | 60 - 99 mg/dL | [facility] - | | | GLUCOSE, | | [...] [facility] | [address] | [place], [place] | | | JAVIER POINT OF CARE | [address] | [address] | | | TESTS | | | [...] [facility] | [address] | [place], [place] | | | ZELALEM HERRERA OF CARE | [address] | [address] | | | TESTS | | | [...] | + + + + + | [facility] | [address] | [place] [address] | | | SERVICES, CORE | JEAN [...] LABORATORY | [address] | [place] [address] | | | INNO LEONARD | [address] | | [...] LABORATORY | [address] | [place] [address] | | | SERVICES, CORE | [address] | | | + + + + + INR (03/23/2016 5:50 AM PDT) + +-------+ + + + | Component | Value | Ref Range | Performed | Pathologist | | | | | At | Signature | + +-------+ + + + | INR | 1.06 | 0.90 - 1.20 INR | [facility] | | | | | | LABORATORY [...] LABORATORY | [address] | [place] [address] | | | SERVICES, CORE | PARK [...] | 28.5 | 26.0 - 36.0 | [facility] | | | | | seconds | [...] | + + + + + | [facility] | [address] | [place] [address] | | | SERVICES, CORE | PARK [...] | | | LABORATORY | | | [place]ESE | | | SERVICES, | | | [...] | + + + + + | [facility] | [address] | [place] [address] | | | SERVICES, NINO | JEAN [...] - [facility] | [address] | [place], [place] | | | ZELALEM HERRERA OF CARE | [facility] | [address] | | | TESTS | | | [...] (H) | 60 - 99 mg/dL | [facility] - | | | GLUCOSE, | | [...] [facility] | [address] | [place], [place] | | | JAVIER POINT OF CARE | [address] | [address] | | | TESTS | | | [...] [facility] | [address] | [place], [place] | | | ZELALEM HERRERA OF NURIA | [facility] | [address] | | | TESTS | | | [...] - [facility] | [address] | [place], [place] | | | JAVIER POINT OF CARE | [address] | [address] | | | TESTS | | | [...] [facility] | [address] | [place], [place] | | | JAVIER POINT OF CARE | [address] | [address] | | | TESTS | | | [...] BR[facility] | [address] | [place], [place] | | | ZELALEM HERRERA OF [facility] | [address] | [address] | | | TESTS | | | | + + + + + INTRAOPERATIVE NEURO MONITORING (03/22/2016) + + + | Narrative | Performed At | + + + | Patient Name: Matt Fagan Date of : 1990 | | | Date of Test: 03/22/2016 Place of | | | Service: IP Intra Op (17) [id number] INTRAOPERATIVE NEURO | | | MONITORING History: [...] Clinical Neurophysiology | | | Suggested CPT: 14532 - IOM Remote x 3 hr(s) 08799 - Short | | | Latency EP's Upper AND Lower extremities 38790 - Central Motor EP's | | | Upper AND Lower extremities 74337 - Neuromuscular Junction Test | | | [...] prior | | | | | | resections([id number] | | | | | | and [id number]) with | | | | | | [...] Pathology | | | | | | residentRussel Bolton, | | | | | | D.O. / Neuropathology | | | | | | fellowRafael Fairbanks, | | | | | | M.D., [...] | | | | | [facility] | | | | | [facility]. [...] | | | | | | record #[id number], and | | | | | | [...] + + + + + | [facility] | [address] | [place] [address] | | | PATHOLOGY | [address] [...] | | [place] - | | | [place] | + + + + + + + + | Performing | Address | City/State/Zipcode | Phone Number | | Organization | | | | + + + + + | [facility] | [address] | [place] [address] | | | [place] | | | [...] LABORATORY | [address] | [place] [address] | | | SERVICES, CORE | PARK [...] [facility] | [address] | [place] [address] | | | SERVICES, CORE | PARK [...] LABORATORY | [address] | [place] [address] | | | SERVICES, CORE | PARK [...] LABORATORY | [address] | [place] [address] | | | HORACIO, NINO | JEAN [...] LABORATORY | [address] | [place] [address] | | | SERVICES, | [address] [...] | + + + + + | [facility] | [address] | [place] [address] | | | SERVICES, | [address] [...] LABORATORY | [address] | [place] [address] | | | SERVICES, CORE | PARK [...] LABORATORY | [address] | [place] [address] | | | NINO LEONARD | JEAN [...] | + + + + + | [facility] | [address] | [place] [address] | | | SERVICES, NINO | JEAN [...] LABORATORY | [address] | [place] [address] | | | SERVICES, CORE | PARK [...] | | | LABORATORY | | | [place]ESE | | | SERVICES, | | | [...] | + + + + + | [facility] | [address] | [place] [address] | | | SERVICES, CORE | PARK [...] + | [facility] | [address] | [place], [place] | | | ZEL[facility]EM [facility]A OF [facility] | [facility] | [address] | | | TESTS | | | [...] + + + + | PRODUCT | [id number] | | [facility] | | | UNIT [...] + + + + | EXPIRATION | [id number] | | [facility] | | | DATE [...] + + + + | BLOOD | [id number] | | [facility] | | | PRODUCT [...] OF | [address] | [place] [address] | | | PATHOLOGY | [address] [...] + + + + | PRODUCT | [id number] | | [facility] | | | UNIT [...] + + + + | EXPIRATION | [id number] | | [facility] | | | DATE [...] + + + + | BLOOD | [id number] | | [facility] | | | PRODUCT [...] + | [facility] | [address] | [place] [address] | | | PATHOLOGY | [address] | | | + + + + + ED INFORMATION EXCHANGE (03/21/2016 6:36 PM PDT) + + + + + + | Component | Value | Ref Range | Performed | Pathologist | | | | | At | Signature | + + + + + + | [facility] | [id number] | | [facility] | | | | [id number] | | MEDICAL | | | | [...] ------- ---- | | | 03/21/2016 18:35 [facility] | | | [facility] [place] [address]. 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 | | | [place] Emergency NO FEELING IN LOWER LIMBS | | | INPATIENT VISIT TRACKING (1 MO.) Visit Date | | | LocationCity ST TypeDx / Complaint | | | ED | | | VISIT COUNT (1 YR.) Visits Location ------ --------- 2 | | | [facility] Total Note: Visits indicate total | | | known visits. | | | | | | --- CARE PROVIDERS Name | | | Phone Type | | | Service Dates ---- | | | ----- ---- | | | [facility] | | | [phone] Primary Care Unknown - Current | | | [facility] Unknown | | | Primary Care Unknown - Current [facility] | | | [facility] Unknown Primary Care | | | Unknown - Current [facility] | | | [id number] Primary Care 01/26/2016 - | | | Current [facility] | | | [id number] Primary Care 01/24/2016 - Current | | + + + + + + + + | Performing | Address | City/State/Zipcode | Phone Number | | Organization | | | | + + + + + | [facility] | [address], | [place], [place] | [phone] | | [employer] | [address] | [address] | | + + + + + [...]
--- OUTSIDE RECORDS SUMMARY | ~2019-06-26 | XMS | Encounter Summary ---
Demographics + + + | Address | [address] | | | [place] [address] | + + + | Home Phone [...] Team Providers + +------+ + | Care Mold Yard Supervisor Name | Role | Phone | [...] | | 2016 | | [facility] | [address] | FOR RESECTION OF | | | | Rd [facility] | [place], [place] | INTRINSIC SPINAL | | | | Hospital Admitting | [address] | CORD TUMOR | | | | Desk Located on the | [phone] | | | | | 9th floor | | | | | | [facility] [place] | | | | | | [address] | | | +--------+---------+ + + + [...] Luis MD PCP: Clare Chowdary MD Service: [facility] Neurosurgery Diagnoses Principal Final Diagnosis: 1. [...] resections (05/2015, 09/2015). The patient was admitted [facility] on 03/21/2016 for a right-sided T8 [...] [facility], and th e patient and/or [...] THIS IF YOU ARE STILL ADMITTED AT [place]. This will be on the 8th floor at the [facility] on the [facility] located at [address] [place] [address]. Pleas e call [phone] if you have any questions or concerns [...] (03/28/16642) Discharge Patient To: Inpatient Rehab - [place] Does patient have a planned readmission: No Discharge Summary Completed?: Yes. 03/28/2016 Discharging Provider: Raegan Doss PA-C Date Completed: 03/28/2016 Time Completed: 7:46 AM Discharging Attending: Rajinder Luis MD [facility] [address] [place] [address] documented in this encounter Progress Notes Raegan [...] moderate swelling under skin, no erythema, dry. Towson in place. Sensation: LT sensation at pre-op [...] open to air. Okay to wash daily. Towson will need to be removed at 2 weeks post-op, on 04/05. This can be completed at [place] or at the [facility] [place]. CV: HD stable. [...] bed. On ppx Lovenox qHS. Dispo: To [place] today at 11am. Will see patient back in clinic in 1 month with a repeat thora cic MRI. Raegan Doss PA-C [facility] [address] [facility] [address] dams, PHILIPPE Mena - 03/27/2016 4:51 PM [...] Thoracic incision: flat, intact, mild erythema, dry. Towson present. Sensation: LT sensation decreased and patchy [...] dispo to [place] tomorrow. Raegan Doss PA-C [facility] [address] [id number] [place] [address] Sumeet Malone MD - 03/26/2016 9:23 AM [...] Consult to physiatry with likely placement at [place]. PT recs IPR. 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 Plan to repea t MRI in one month and evaluation for possible radiation needs at that time. HEENT/Derm: Menthol drops prn mouth soreness. Routine wound care to spinal incision - pleas e leave open to air. Okay to wash on 03/25. Towson will need to be removed at 2 [...] Dispo: Pending medical course, likely IPR at [place]. Appreciate CM following. Sumeet Ross MD Neurological [...] Consult to physiatry with likely placement at [place]. PT recs IPR. 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 Plan to repea t MRI in one month and evaluation for possible radiation needs at that time. HEENT/Derm: Menthol drops prn mouth soreness. Routine wound care to spinal incision - pleas e leave open to air. Okay to wash on 03/25. Towson will need to be removed at 2 [...] sensation intact in all 4 extremities Motor: Button Spindler Bicep Tricep Delt R 5 5 5 [...] to evaluate patient for possible admission to [place]. Oncology: Pathology in process. Likely recurrent/residual low-grade [...] Dispo: Pending medical course. Kacey Pimentel PA-C 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 HEENT/Derm: Menthol drops prn mouth soreness. Routine [...] Dispo: Pending medical course. Raegan Doss PA-C [facility] [address] [id number] [place] [address] Yokasta Pizano MD - 03/22/2016 5:30 PM [...] consult per patient's request Yokasta Randall PGY3 [id number] Cesar Najera MD - 03/22/20 16 3:05 [...] [facility] | [address] | [place] [address] | | | SERVICES, CORE | PARK [...] | | | LABORATORY | | | KOSOVAN | | | SERVICES, | | | [...] the MDRD equation recommended by the | [facility] | | National Kidney Disease Education [...] + + | [facility] | [address] | [place] [address] | | | SERVICES, CORE | PARK [...] + | [facility] | [address] | [place] [address] | | | SERVICES, NINO | PARK [...] | | | LABORATORY | | | KOSOVAN | | | SERVICES, | | | [...] + + + + + | [facility] | [address] | [place] [address] | | | SERVICES, CORE | JEAN [...] BRAMBILA | [address] | [place], [place] | | | ZELALEM HERRERA OF NURIA | [facility] | [address] | | | TESTS | | | [...] | [facility] | [address] | [place] [address] | | | SERVICES, CORE | JEAN [...] | | | LABORATORY | | | KOSOVAN | | | SERVICES, | | | [...] + + + + + | [facility] | [address] | [place] [address] | | | SERVICES, NINO | JEAN [...] (H) | 60 - 99 mg/dL | [facility] - | | | GLUCOSE, | [...] BRAMBILA | [address] | [place], [place] | | | JAVIER POINT OF CARE | [address] | [address] | | | TESTS | | | [...] MARQUAM | [address] | [place], [place] | | | ZELALEM HERRERA OF CARE | [address] | [address] | | | TESTS | | | [...] MARQUAM | [address] | [place], [place] | | | ZELALEM HERRERA OF CARE | [address] | [address] | | | TESTS | | | [...] BRAMBILA | [address] | [place], [place] | | | JAVIER POINT OF CARE | [address] | [address] | | | TESTS | | | | + + + + + OPERATION RECORD (03/24/2016 9:53 AM PDT) + + | Transcriptions | + + | Rajinder Luis MD - 03/22/2016 4:04 PM PDT Date of Service: 03/22/2016 Attending | | Surgeon: Rajinder Luis MD Chemist Physical(s): Thomas Gorman, | | Matt, Ph.D. Preoperative Diagnoses: 1. [...] was closed primarily using a running 5-0 Portland-Thaddeus suture in a locking fashion. At | | the lowest incision, the dural tacking sutures were crossed. The dura was also closed | | in primary fashion using a running 5-0 [place]-Thaddeus suture in locking fashion. These dural | [...] 03/22/2016 12:20:45DT: 03/22/2016 | | 16:04:07Job #: [id number] | + + CBC (HEMOGRAM) ONLY (03/24/2016 [...] + | [facility] | [address] | [place] [address] | | | SERVICES, CORE | PARK [...] | | | LABORATORY | | | KOSOVAN | | | SERVICES, | | | [...] + | [facility] | [address] | [place] [address] | | | SERVICES, CORE | JEAN [...] MARQUAM | [address] | [place], [place] | | | ZELALEM HERRERA OF CARE | [address] | [address] | | | TESTS | | | [...] PATTY | [address] | [place], [place] | | | ZELALEM HERRERA OF CARE | [address] | [address] | | | TESTS | | | [...] (H) | 60 - 99 mg/dL | [facility] - | | | GLUCOSE, | [...] BRAMBILA | [address] | [place], [place] | | | JAVIER POINT OF CARE | [address] | [address] | | | TESTS | | | [...] MARQUAM | [address] | [place], [place] | | | ZELALEM HERRERA OF CARE | [address] | [address] | | | TESTS | | | [...] | + + + + + | [facility] | [address] | [place] [address] | | | SERVICES, CORE | JEAN [...] LABORATORY | [address] | [place] [address] | | | NINO LEONARD | JEAN [...] LABORATORY | [address] | [place] [address] | | | SERVICES, CORE | [address] | | | + + + + + INR (03/23/2016 5:50 AM PDT) + +-------+ + + + | Component | Value | Ref Range | Performed | Pathologist | | | | | At | Signature | + +-------+ + + + | INR | 1.06 | 0.90 - 1.20 INR | [facility] | | | | | | LABORATORY [...] LABORATORY | [address] | [place] [address] | | | SERVICES, CORE | PARK [...] | 28.5 | 26.0 - 36.0 | [facility] | | | | | seconds | [...] + + + + + | [facility] | [address] | [place] [address] | | | SERVICES, CORE | PARK [...] | | | LABORATORY | | | KOSOVAN | | | SERVICES, | | | [...] + | [facility] | [address] | [place] [address] | | | SERVICES, NINO | JEAN [...] - [facility] | [address] | [place], [place] | | | ZELALEM HERRERA OF CARE | [facility] | [address] | | | TESTS | | | [...] (H) | 60 - 99 mg/dL | [facility] - | | | GLUCOSE, | [...] PATTY | [address] | [place], [place] | | | JAVIER POINT OF CARE | [address] | [address] | | | TESTS | | | [...] PATTY | [address] | [place], [place] | | | ZELALEM HERRERA OF NURIA | [facility] | [address] | | | TESTS | | | [...] - MARQU[facility] | [address] | [place], [place] | | | JAVIER POINT OF CARE | [address] | [address] | | | TESTS | | | [...] BRAMBILA | [address] | [place], [place] | | | JAVIER POINT OF CARE | [address] | [address] | | | TESTS | | | [...] BRAMBILA | [address] | [place], [place] | | | ZELALEM HERRERA OF [facility] | [address] | [address] | | | TESTS | | | | + + + + + INTRAOPERATIVE NEURO MONITORING (03/22/2016) + + + | Narrative | Performed At | + + + | Patient Name: Matt Fagan Date of : 1990 | | | Date of Test: 03/22/2016 Place of | | | Service: IP Intra Op (38) [id number] INTRAOPERATIVE NEURO | | | MONITORING History: [...] Clinical Neurophysiology | | | Suggested CPT: 56409 - IOM Remote x 3 hr(s) 77831 - Short | | | Latency EP's Upper AND Lower extremities 06043 - Central Motor EP's | | | Upper AND Lower extremities 24168 - Neuromuscular Junction Test | | | [...] prior | | | | | | resections([id number] | | | | | | and [id number]) with | | | | | | [...] | | | [facility] | | | [facility]. [...] | | | | | | record #[id number], and | | | | | | [...] | + + + + + | [facility] | [address] | [place] [address] | | | PATHOLOGY | JEAN CARLOS [...] + | [facility] - | [address] | [place] [address] | | | [place] | | | [...] LABORATORY | [address] | [place] [address] | | | SERVICES, CORE | PARK [...] [facility] | [address] | [place] [address] | | | SERVICES, CORE | PARK [...] LABORATORY | [address] | [place] [address] | | | SERVICES, CORE | PARK [...] LABORATORY | [address] | [place] [address] | | | HORACIO, NINO | JEAN [...] LABORATORY | [address] | [place] [address] | | | SERVICES, | [address] [...] + | [facility] | [address] | [place] [address] | | | SERVICES, | JEAN CARLOS [...] LABORATORY | [address] | [place] [address] | | | SERVICES, CORE | PARK [...] LABORATORY | [address] | [place] [address] | | | NINO LEONARD | JEAN [...] + + + + + | [facility] | [address] | [place] [address] | | | SERVICES, NINO | JEAN [...] LABORATORY | [address] | [place] [address] | | | SERVICES, CORE | PARK [...] | | | LABORATORY | | | KOSOVAN | | | SERVICES, | | | [...] + | [facility] | [address] | [place] [address] | | | SERVICES, CORE | PARK [...] PATTY | [address] | [place], [place] | | | ZELALEM HERRERA OF [facility] | [facility] | [address] | | | TESTS | | | [...] + + + + | PRODUCT | [id number] | | [facility] | | | UNIT [...] + + + + | EXPIRATION | [id number] | | [facility] | | | DATE [...] + + + + | BLOOD | [id number] | | [facility] | | | PRODUCT [...] OF | [address] | [place] [address] | | | PATHOLOGY | [address] [...] + + + + | PRODUCT | [id number] | | [facility] | | | UNIT [...] + + + + | EXPIRATION | [id number] | | [facility] | | | DATE [...] + + + + | BLOOD | [id number] | | [facility] | | | PRODUCT [...] OF | [address] | [place] [address] | | | PATHOLOGY | [address] | | | + + + + + ED INFORMATION EXCHANGE (03/21/2016 6:36 PM PDT) + + + + + + | Component | Value | Ref Range | Performed | Pathologist | | | | | At | Signature | + + + + + + | [facility] | [id number] | | [facility] | | | | [id number] | | [facility]ICAL | | | | [...] ------- ---- | | | 03/21/2016 18:35 [facility] and | | | [facility] [place] Emergency [address]. 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 | | | [place] Emergency NO FEELING IN LOWER LIMBS | | | INPATIENT VISIT TRACKING (1 MO.) Visit Date | | | LocationCity ST TypeDx / Complaint | | | ED | | | VISIT COUNT (1 YR.) Visits Location ------ --------- 2 | | | [facility] Total Note: Visits indicate total | | | known visits. | | | | | | --- CARE PROVIDERS Name | | | Phone Type | | | Service Dates ---- | | | ----- ---- | | | [facility] | | | [phone] Primary Care Unknown - Current | | | [facility] Unknown | | | Primary Care Unknown - Current DOCTOR JOSÉ LUIS at [facility] | | | [facility] Unknown Primary Care | | | Unknown - Current [facility] | | | [phone] Primary Care 01/26/2016 - | | | Current [facility] | | | [id number] Primary Care 01/24/2016 - Current | | + + + + + + + + | Performing | Address | City/State/Zipcode | Phone Number | | Organization | | | | + + + + + | [facility] | [address], | [place], [place] | [phone] | | [employer] | [address] | [address] | | + + + + + [...]
--- OUTSIDE RECORDS SUMMARY | ~2019-06-26 | XMS | Encounter Summary ---
Demographics + + + | Address | [address] | | | [place] [address] | + + + | Home Phone [...] Team Providers + +------+ + | Care Tank Truck Driver Name | Role | Phone | + +------+ + | No Pcp Per Patient | PCP | Unavailable | + +------+ + Encounter Details +--------+ + + + + | Date | Type | Department | Care Team | Description | +--------+ + + + + | 12/06/ | Telephone | Neurosurgery at | Rajinder Luis MD | | | 2016 | | [facility] [address] | [address] | | | | | [address] Mailcode: CH8N | [place], [place] | | | | | [place] for [facility] | [address] | | | | | and Healing, | [phone] | | | | | [facility] 8th | | | | | | Floor [place], [place] | | | | | | [address] | | | | | | [phone] | | | +--------+ + + + [...]
--- OUTSIDE RECORDS SUMMARY | ~2019-06-26 | XMS | Encounter Summary ---
Demographics + + + | Address | [address] | | | [place] [address] | + + + | Home Phone [...] Team Providers + +------+ + | Care Nursing Services Manager Name | Role | Phone | [...] | Post-discharge | | 2016 | | [facility] [address] | [address] | follow-up (s/p | | | | Ave Mailcode: CH8N | [facility] [place] | discharge 03/28/16: | | | | [place] for [facility] | [address] | Right-sided T8 and | | | | and Healing, | [phone] | T9 hemilaminectomy & | | | | | | resection of tumor | | | | Floor [facility] [place] | | (dos: 03/24/16) ) | | | | [address] | | | | | | [phone] | | | +--------+ + + + [...]
--- OUTSIDE RECORDS SUMMARY | ~2019-06-26 | XMS | Encounter Summary ---
Demographics + + + | Address | [address] | | | [place] [address] | + + + | Home Phone [...] + + + | Author | [facility] | + + + | Organization | [facility] | + + + | Address [...] Team Providers + +------+ + | Care Predator Control Trapper Name | Role | Phone | + +------+ + | Tiff Chapin | PCP | | + +------+ + Reason for Visit + + + | Reason | Comments | + + + | Post-discharge | s/p admission 05/06/15 - : anterior cervical diskectomy | | follow-up | and fusion at C6-7 | + + + Encounter Details +--------+ + + + + | Date | Type | Department | Care Team | Description | +--------+ + + + + | 05/12/ | Telephone | Neurosurgery at | Rajinder Luis MD | Post-discharge | | 2015 | | [facility] [address] | [address] | follow-up (s/p | | | | Ave Mailcode: CH8N | [place] | admission 05/06/15 - | | | | [place] for [facility] | [address] | : anterior | | | | and Healing, | [phone] | cervical diskectomy | | | | | | and fusion at C6-7) | | | | Floor [place], [place] | | | | | | [address] | | | | | | [phone] | | | +--------+ + + + [...]
--- OUTSIDE RECORDS SUMMARY | ~2019-06-26 | XMS | Encounter Summary ---
Demographics + + + | Address | [address] | | | [place] [address] | + + + | Home Phone [...] Team Providers + +------+ + | Care Livestock Producer Name | Role | Phone | + [...] LAMINECTOMIES FOR | | | | Rd [facility] Main | [place], [place] | RESE[place] OF [place], | | | | Hospital Admitting | [address] | INTRAOPERATIVE NEURO | | | | Desk Located on the | [phone] | MONITORING AND | | | | 9th floor | | ULTRASOUND, | | | | [place], [place] | | SPECIMENS TO | | | | [address] | | PATHOLOGY X 2 (KYMBERLY) | [...] Luis MD PCP: Princess Chowdary MD Service: [facility] Neurosurgery Diagnoses Principal Final Diagnosis: Thoracic [...] by the attending providers, resident providers, and [facility]/nursing staff. Post operatively, the patient was [...] rehabilitation team and was seen by a Visitor Services Specialist with recommendation for IPR ([place]ISTON) upon [...] at her post-op clinic visit or at [facility] by a provider and then cancel the [...] be on the 12th floor at the [facility] on the [facility] located at [address] [place] [address]. Please call [phone] if you have any questions or concerns before your appointment time. If you are still admitted to [facility] at the time of this appointment, the providers at [facility] can remove your wale. Please then make a 6 week post-op visit to see Raegan Doss PA-C in [facility] rosurgery clinic for routine follow up. You can call [phone] to make this appointment. PCP:Princess Chowdary MD [...] 01/28/17. If you are still admitted to [facility] when your wale need to come out, the providers at [facility] an remove your wale. Please then make a 6 week post-op visit to see Raegan Doss PA-C in Neurosurgery clinic for routine follow up. You can call [phone] to make this appointmen t. Special Instructions/Tests: N/A Condition On Discharge: Good Vital Signs at discharge as appropriate: BP: 109/55 (01/18/17 0451) Pulse: 64 (01/18/17 0451) Resp: 14 ( 0451) Weight: 78 kg (171 lb 15.3 oz) (01/15/17 0000) Discharge Patient To: Interhospital Transfer - [facility] Does patient have a planned readmission: No Discharge Summary Completed?: Yes. 01/18/2017 Discharging Provider: Raegan Doss PA-C Date Completed: 01/18/2017 Time Completed: 10:56 AM Discharging Attending: Rajinder Luis MD [facility] 10K [address] [address] [place] [address] documented in this encounter Medications at Time [...] documented as of this encounter Progress Notes aRegan Doss PA-C - 01/18/2017 9:48 AM PDTFormatting [...] patient and recommended a short stay at [facility] -Patient has required several straight caths overnight [...] prevention, appreciate PT/OT involvement with recs for [facility]. ID/Heme: Afebrile since admission on 01/11. DVT ppx: SCDs while in bed, ppx lovenox 40mg inj. qHS. Dispo: Patient is medically stable for discharge. CM working on placement at [facility] for discharge today. Raegan Doss PA-C [facility] [address] [address] [address] dams, PHILIPPE Mena - 01/17/2017 10:28 AM [...] siatry consult placed for possible admission to [facility]. ID/Heme: Afebrile since admission on 01/11. DVT ppx: SCDs while in bed, ppx lovenox 40mg inj. qHS. Dispo: Pending physiatry consult. Appreciate CM involvement. [facility] [address]K [address] [address] [place] [address] dams, PHILIPPE Mena - 01/16/2017 8:38 AM [...] Will discuss with CM. Raegan Doss PA-C [facility] [address]K [address] [address]/kp2 [place] [address] dams, PHILIPPE Mena - 01/15/2017 [...] catheter in until able to ambulate to [facility]. She also r equests going up [...] and possible rehab needs. Raegan Doss PA-C [facility] 10K [address] [address]/[address]12 [place] [address] Kaci Adorno M D - 01/14/2017 9:42 AM PDT . Neuroscience Intensive Care Unit Attending Progress Note Attending Pager #[phone] Documentation Date 01/13/17 1450 Day of Procedure [...] team members Provider Role Specialty Ipt Neurosurgery #71985 Treatment Team Neurological Surgery Ipt Critical Care Nsicu #13922 Treatment Team -- Code Status Code Status [...] on counseling and coordination of care.Seen with PA/HEDGE FUND TRADER Ryan. Please see their note for details. I reviewed the documented findings, all data and the recent imaging available. Date of Service: 01/14/2017 Kaci Mon MD Author:Kaci Mon MD [address] [address]Ikgqoubaspcjlc signed by Kaci Mon MD at 01/14/2017 [...] Aaron MD Neurosurgery, PGY-2 On-call resident pager [phone] 9:03 AM 01/14/2017 ogbrian, Nay Alvarenga, [facility] - 01/14/2017 7:30 AM PDT . Neuroscience Intensive Care Unit Team Progress Note NSICU ASSIGNED #[id number] Documentation Date 01/13/17 1450 Day of Procedure [...] team members Provider Role Specialty Ipt Neurosurgery #48603 Treatment Team Neurological Surgery Ipt Critical Care Nsicu #56681 Treatment Team -- Patient Lines/Drains/Airways Status Active [...] of Service: 01/14/2017 AIXA Sanders EPIC DEPARTMENT: [facility] ICU NEURO Place of Service:- Inpatient CSN: [id number] Suggested Modifier: None Suggested CPT: TO CIGAR BRANDER AIXA Orozco Author:AIXA Sanders [address] [place] [address]Maudqphsuphhsy signed by AIXA Orozco at 01/14/2017 11:26 AM Stephie Rodríguez MD - 01/13/2017 9:35 PM PDTFormatting of this note might be differen t from the original. . Neuroscience Intensive Care Unit Attending Progress Note Attending Pager #[phone] Documentation Date 01/13/17 1450 Day of Procedure [...] team members Provider Role Specialty Ipt Neurosurgery #06325 Treatment Team Neurological Surgery Ipt Critical Care Nsicu #39387 Treatment Team -- Code Status Code Status [...] on counseling and coordination of care.Seen with PA/HEDGE FUND TRADER Yaz Eztonya. Please see their note for details. I reviewed the documented findings, all data and the recent shmuel ging available. Date of Service: 01/13/2017 [facility] DEPARTMENT: [facility] ICU NEURO Place of Service:- Inpatient CSN: [id number] Suggested Modifier: GC - Resident Involved Suggested CPT: TO CIGAR BRANDER Author:Stephie Anders MD [facility] [address] [place] [address]Rxabarmbzupfkz signed by Stephie Anders MD at 01/13/2017 [...] Aaron MD Neurosurgery, PGY-2 On-call resident pager [phone] 8:22 PM 01/13/2017 Cesar Najera MD - [...] MD Neurosurgery Resident 11:07 PM, 01/12/2017 Pager #[phone] Kacey Elizabeth P A-C - 01/12/2017 8:42 [...] 01/14 for tumor resection. Kacey Pimentel PA-C [facility] [address]K [address] [place] [address] Chavo Robert MD - 01/11/2017 9:27 PM [...] midline No pronator drift Delt Bi Tri Child Welfare Worker HF KE KF DF PF Left 5 [...] now Chavo Penn MD Neurosurgery Resident Pager #[phone] signed by Chavo Penn MD at 01/11/2017 [...] [facility] | [address] | [place] [address] | | | SERVICES, CORE | PARK [...] | | | LABORATORY | | | [place] | | | SERVICES, | | | [...] + + | [facility] | [address] | [place] [address] | | | HORACIO, CORE | JEAN [...] | + + + + + | [facility] | [address] | [place] [address] | | | SERVICES, CORE | JEAN [...] | | | LABORATORY | | | [place] | | | SERVICES, | | | [...] [facility] | [address] | [place] [address] | | | SERVICES, CORE | PARK [...] LABORATORY | [address] | [place] [address] | | | SERVICES, CORE | PARK [...] | | | LABORATORY | | | [place] | | | SERVICES, | | | [...] | + + + + + | [facility] | [address] | [place] [address] | | | SERVICES, CORE | [address] | | | + + + + + PROCEDURE NOTE (01/15/2017 7:18 PM PDT)OPERATION RECORD (01/15/2017 8:11 AM PDT) + + | Procedure Note | + + | Rajinder Luis MD - 01/13/2017 8:53 PM PDT Date of Service: 01/13/2017 Attending | | Surgeon: Rajinder Luis MD Oxygen Tank Filler(s): Joby Thibodeaux | | . Preoperative Diagnosis: [...] dura was reapproximated and closed using 5-0 [place]-Thaddeus suture | | in a running fashion. [...] a supine position [facility] a | [facility] She was then extubated by [...] 01/13/2017 19:31:27DT: | | 01/13/2017 20:53:09Job #: [id number] | + + CBC (HEMOGRAM) ONLY (01/15/2017 [...] LABORATORY | [address] | [place] [address] | | | HORACIO, NINO | JEAN [...] | | | LABORATORY | | | [place] | | | SERVICES, | | | [...] | + + + + + | [facility] | [address] | [place] [address] | | | NINO LEONARD | JEAN [...] LABORATORY | [address] | [place] [address] | | | SERVICES, CORE | JEAN [...] - [facility] | [address] | [place], [place] | | | JAVIER POINT OF CARE | [address] | [address] | | | TESTS | | | [...] + + + | [facility] | [address] | [place], [place] | | | JAVIER POINT OF CARE | [address] | [address] | | | TESTS | | | [...] LABORATORY | [address] | [place] [address] | | | NINO LEONARD | PARK [...] | + + + + + | [facility] | [address] | [place] [address] | | | SERVICES, CORE | JEAN [...] | | | LABORATORY | | | [place] | | | SERVICES, | | | [...] | + + + + + | [facility] | [address] | [place] [address] | | | SERVICES, CORE | JEAN [...] 97 | 60 - 99 mg/dL | [facility] - | | | GLUCOSE, | [...] BRAMBILA | [address] | [place], [place] | | | ZELALEM HERRERA OF [facility] | [address] | [address] | | | TESTS | | | [...] BRAMBILA | [address] | [place], [place] | | | JAVIER POINT OF CARE | [address] | [address] | | | TESTS | | | [...] PATTY | [address] | [place], [place] | | | JAVIER POINT OF CARE | [facility] | [address] | | | TESTS | | | [...] + + + + | PRODUCT | [id number] | | [facility] | | | UNIT [...] + + + + | EXPIRATION | [id number] | | [facility] | | | DATE [...] + + + + | BLOOD | [id number] | | [facility] | | | PRODUCT [...] LABORATORY | [address] | [place] [address] | | | SERVICES, | [address] [...] + + + + | PRODUCT | [id number] | | [facility] | | | UNIT [...] + + + + | EXPIRATION | [id number] | | [facility] | | | DATE [...] + + + + | BLOOD | [id number] | | [facility] | | | PRODUCT [...] | + + + + + | [facility] | [address] | [place] [address] | | | SERVICES, | [address] [...] | MOISE - PATTY | [address] [facility] [address] | [place], [place] | | | JAVIER POINT OF NURIA | [address] | [address] | | | TESTS | | | [...] | + + + + + | [facility] | [address] | [place] [address] | | | SERVICES, SPECIAL | JEAN [...] | + + + + + | [facility] | [address] | [place] [address] | | | SERVICES, [facility] | [address] | | | [...] | | | Service: IP Intra Op [phone] [id number] INTRAOPERATIVE NEURO | | | MONITORING IOM: [...] | | Clinical Neurophysiology Department Suggested CPT: 55249 - IOM | | | Remote x 3 hr(s) 25578 - Short Latency EP's Upper AND Lower | | | extremities 50143 - Central Motor EP's Upper AND Lower extremities | | | 49694 - Neuromuscular Junction Test Suggested Diagnosis: D43.4 [...] original | | | | | | [id number]) with cells | | | | | [...] | | | | cs determined by [facility] | | | | | | [...] medical | | | | | | record#[id number]. | | | | | | A: [...] | + + + + + | [facility] DEPARTMENT | [address] | [place] [address] | | | PATHOLOGY | [address] [...] | + + + + + | [facility] | [address] | [place] [address] | | | SERVICES, SPECIAL | PARK [...] | + + + + + | [facility] | [address] | [place] [address] | | | SERVICES, CORE | JEAN [...] LABORATORY | [address] | [place] [address] | | | SERVICES, | [address] [...] LABORATORY | [address] | [place] [address] | | | SERVICES, | [address] [...] LABORATORY | [address] | [place] [address] | | | SERVICES, CORE | PARK [...] | + + + + + | [facility] | [address] | [place] [address] | | | SERVICES, CORE | JEAN [...] LABORATORY | [address] | [place] [address] | | | SERVICES, CORE | PARK [...] | | | LABORATORY | | | [place] | | | SERVICES, | | | [...] the MDRD equation recommended by the | [facility] | | National Kidney Disease Education Program. Estimated GFR | LABORATORY | | Interpretive Information: <60 mL/min/1.73 sq m | [facility], CORE | | Chronic Kidney Disease [...] | + + + + + | [facility] LAB[facility]ATORY | [address] | [place] [address] | | | SERVICES, CORE | PARK [...] LABORATORY | [address] | [place] [address] | | | SERVICES, NINO | JEAN [...] | + + + + + | [facility] | [address] | [place] [address] | | | NINO LEONARD | JEAN [...] + | [facility] - | [address] | [place] [address] | | | [place] | | | [...] | + + + + + | [facility] | [address] | [place] [address] | | | NINO LEONARD | JEAN [...] | [facility] | | | GRAVITY | [place] performed by | | LABORATORY | | [...] LABORATORY | [address] | [place] [address] | | | SERVICES, CORE | JEAN [...] LABORATORY | [address] | [place] [address] | | | SERVICES, CORE | PARK [...] [facility] | [address] | [place] [address] | | | SERVICES, CORE | JEAN [...] At | + + + | [id number] This patient has registered at the | [facility] | | [facility] Emergency Department For more | MEDICAL | | information visit: | [employer]CH[employer]OLOGIES | | [email or web address] | | | [email or web address] ED Care Guidelines There are currently no ED Care Guidelines | | | in [place]YNN for this patient. Please check your facility's medical | | | records system. Recent Emergency Department Visit Summary Admit | | | Date Facility City State Type Major Type Diagnoses or Chief Complaint | | | Jan 11, 2017 [facility] [place] Emergency | | | Emergency 10,800. transfer Jan 11, 2017 [facility] | | | Community . [place]. [place] Emergency Emergency Recent | | | Inpatient Visit Summary No recorded inpatient visits. E.D. Visit | | | Count (12 mo.) Facility Visits [facility] | | | [place] 2 [facility] [address] [place] [address] | | | [facility] 1 Total 6 Note: Visits indicate total | | | known visits. Care Providers Provider PRC Type Phone Fax | | | Service Dates [facility] Primary Care | | | [...] for | | | additional information. 2017 [employer] - | | | [place], [place] - [email or web address] | | + + + + + | Procedure Note | + + | Service Account, Rtf Results Inbound - 01/11/2017 8:40 AM PDT Formatting of this | | note might be different from the original.LYNN?NOTIFICATION?01/11/2017 08:38?ANAID, | | QIANA Parsons? patient has registered at the [facility] | | [place] Emergency Department For more information visit: | | [email or web address] ED Care | | GuidelinesThere are currently no ED Care Guidelines in LYNN for this patient. Please | | check your facility's medical records system.Recent Emergency Department Visit | | SummaryAdmit Date Facility City State Type Major Type Diagnoses or Chief Complaint Jan | | 2016 [facility] [place] Emergency Emergency 10,800. | | transfer Jan 11, 2017 [facility] [place]. [place] Emergency Emergency Recent | | Inpatient Visit SummaryNo recorded inpatient visits. E.D. Visit Count (12 mo.)Facility | | Visits [facility] 2 [facility] 1 [facility] | | [place] 2 [facility] 1 Total 6 Note: Visits indicate total known | | visits. Care ProvidersProvider PRC Type Phone Fax Service Dates [facility] | | [facility] Primary Care Current [facility] Primary Care Current | | [facility] Primary Care Oct 16, 2016 - | [...] additional information. ? 2017 [facility] | | [employer] - [facility] [employer] - [email or web address] | |[facility] 2 | |[facility] 1 | |[facility] 2 | |[facility] 1 | |Total 6 | |Note: Visits indicate total known visits. | | | |Care Providers | |Provider PRC Type Phone Fax Service Dates | |[facility] Primary Care Current | |[facility] Current | |[facility] Primary Care Oct 16, 2016 - Current | | | |The above information is provided for the sole purpose of patient treatment. Use of this in formation beyond the terms of Data Sharing Memorandum of Understanding and License Agreement is prohibited. In | |certain cases not all visits may be represented. Consult the aforementioned facilities for additional information. | |? 2017 [employer] [place], [place] - [email or web address] | + + + + + + + | Performing | Address | City/State/Zipcode | Phone Number | | Organization | | | | + + + + + | [facility] | [address], | [place], [place] | [phone] | | TECH[employer]IES | [address] | [address] | | + + + + + [...]
--- OUTSIDE RECORDS SUMMARY | ~2019-06-26 | XMS | Encounter Summary ---
Demographics + + + | Address | [address] | | | [place] [address] | + + + | Home Phone [...] Author + + + | Author | [facility] | + + + | Organization | [facility] | + + + | Address [...] Team Providers + +------+ + | Care Counseling Program Leader Name | Role | Phone | + +------+ + | No Pcp Per Patient | PCP | Unavailable | + +------+ + Encounter Details +--------+ + + + + | Date | Type | Department | Care Team | Description | +--------+ + + + + | 06/03/ | Telephone | Neurosurgery at | Raegan Doss, | | | 2019 | | [address] | [place] [address] | | | | | [place]weth[place] Mailcode: CH8N | [place], [place] | | | | | [place] for [facility] | [address] | | | | | and Healing, | [phone] | | | | | [facility] 8th | | | | | | Floor [place], [place] | | | | | | [address] | | | | | | [phone] | | | +--------+ + + + [...]
--- OUTSIDE RECORDS SUMMARY | ~2019-06-26 | XMS | Encounter Summary ---
Demographics + + + | Address | [address] | | | [place] [address] | + + + | Home Phone [...] Team Providers + +------+ + | Care Ginner Name | Role | Phone | + [...] | | | | | Procedures | [facility], | | | | | | OCCUPATIONAL | [place] | | | | | | THERAPY | [address] | | | | | | REFERRAL | Phone: | | | | | | | [phone] | | | | | | | Fax: | | | | | | | [phone] | | + +--------+ + + + [...] | | | | | Procedures | [facility], | | | | | | PHYSICAL | [place] | | | | | | THERAPY | [address] | | | | | | REFERRAL | Phone: | | | | | | | [phone] | | | | | | | Fax: | | | | | | | [phone] | | +--------+--------+ + + + + [...] | | | | | 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 | Phone: | Phone: | | | | | Procedures | [phone] | [phone] | | | | | SURGICAL | Fax: | Fax: | | | | | CASE REQUEST | [phone] | [phone] | + +--------+ + + + + [...] + + | 10/01/ | Hospital | [facility] [address] | Tavo English | | | 2019 - | Encounter | [address] Tierra Mai MD [address] | | | | | [facility] [place], | [facility] [address] | | | 10/08/ | | [place] [address] | [place], [place] | | | 2018 | | [phone] | [address] | | | | | | [phone] | | | | | | | | | | | | Nanette Chapin MD | | | | | | [address] | | | | | | [facility] [address] | | | | | | [place], [place] | | | | | | [address] | | | | | | [phone] | | | | | | | | | | | | Shahram Medina MD | | | | | | [address] | | | | | | [place], [place] | | | | | | [address] | | | | | | [phone] | | | | | | | | | | | | Rajinder Luis MD | | | | | | [address] | | | | | | [place], [place] | | | | | | [address] | | | | | | [phone] | | | | | | | [...] Rajinder Luis MD PCP: PATRIC Flores Service: [facility] Neurosurgery Diagnoses Principal Final Diagnosis: Progressive thoracic [...] on the 1 2th floor at the [facility] on the [facility] located at [address] [place] [facility] [place] [address]. Please call [phone] if you have any questions or concerns [...] (10/05/18 1244) Discharge Patient To: Interhospital Transfer [facility] Does patient have a planned readmission: No Discharge Summary Completed?: Yes. 10/08/2018 Discharging Provider: RAHEEM DOSS PA-C Date Completed: 10/08/2018 Time Completed: 10:36 AM Discharging Attending: Rajinder Luis MD [facility] [address] [place] [address] documented in this encounter Medications at Time [...] Intake/Output Summary (Last 24 hours) at 10/07/18 0871 Last data filed at 10/07/18 0535 Gross [...] in bed, on ppx lovenox. Dispo: To [facility] once accepted, hopeful for today. RAHEEM DOSS PA-C [facility] [address] [place] [address] dams, PHILIPPE Mena - 10/07/2018 8:33 AM [...] Intake/Output Summary (Last 24 hours) at 10/07/18 0803 Last data filed at 10/07/18 0535 Gross [...] To [facility] once accepted. RAHEEM DOSS PA-C [facility] [address] [place] [address] Daniel Arechiga MD - 10/06/2018 11:06 AM [...] WORRELL Routine Cultures PROCEDURE: Strep Screen Culture [[id number]: 11/05/2017 16:4 4 PDT P1] SOURCE: Throat STARTED: 11/05/2017 20:3 9 PDT FREE TEXT SOURCE: BODY SITE: FINAL REPORTS Final Report [] Verified Date/Time: 11/07/2017 11:07 PDT No beta Strep isolated. Order Comments O1: Strep Screen Culture (CULTURE THROAT STREP SCREEN - [facility] - Ordering-Phys: PRINCESS GRAVES) Location: [facility] Performing Locations P1: This test was performed at: [facility] Lab Results Component Value Date APTT [...] Please contact the neurosurgery blackburn on-call pager [phone] with questions. Daniel Barahona M.D. Neurosurgery PGY-1 [...] 10/05/18 1103 Last data filed at 10/05/18 0953 Gross per 24 hour Intake 2362 ml [...] control, planning for IPR Elif Mcclain PA-C [facility] [address] [place] [address] Julio Rendon PA-C - 10/04/2018 8:39 AM PDT Neurosurgery Progress Note Hospital Day:3 Author; Julio Wahl PA-C Attending Physician: Rajinder Lius MD Interval Hx: S/p redo posterior midline [...] noted deficits below Delt Tri Bi WE Service Vehicle Operator HF KE APF ADF Left 5 5 [...] SPINE THOR / LUMB WWO CONTRAST Order: [id number] Performed: 10/01/2018 17:52 Status: Final result Visible [...] giving 1L saline bolus, continue to monitor wiflrid sely. Pulm: IS, cough/deep breath GI/diet: reg diet, NPO after midnight for possible surgery 10/03, starting maintenance fluid s after midnight. bowel regimen prn, anti-emetics prn : voiding independently Musculoskeletal/skin: Routine decubitus ulcer prevention Endo: no active issues Psyche: cont home duloxetine DVT ppx: SCDs while in bed Activity: flat for 24 hr post op. Dispo: Secondary to clinical course Jluio Wahl PA-C [facility] [address] [place] [address] Derick Dave MD,P hD - 10/03/2018 10:00 [...] DERICK REYES MD,PhD Resident Neurological Surgery Pgr. [phone] dams, Raheem Nieves PA-C - 10/03/2018 8:21 [...] Dispo: To [place] today. RAHEEM DOSS PA-C [facility] [address] [place] [address] Rajinder Antony MD - 10/02/2018 7:51 PM [...] surgery? No Chris Cano MD Neurosurgery PGY2 82777 FoJulio lobo PA-C - 10/02/2018 8:22 AM [...] noted deficits below Delt Tri Bi WE Service Vehicle Operator HF KE APF ADF Left 5 5 [...] SPINE THOR / LUMB WWO CONTRAST Order: [id number] Performed: 10/01/2018 17:52 Status: Final result Visible [...] clinical course, pending surgery Julio Wahl PA-C [facility] [address] [place] [address] documented in this enc ounter Plan of [...] Attending | | Surgeon: Rajinder Luis MD Greaser Operator(s): Joby Thibodeaux MD. | | Preoperative Diagnosis: [...] the operating room on a | | [facility] General endotracheal anesthesia was induced by the Anesthesia team | | without complication. The neuromonitoring team placed the necessary electrodes for | | monitoring of somatosensory evoked potentials and motor evoked potentials. The patient | | was then placed in a prone [facility]. All pressure points | | were [...] 10/03/2018 | | 19:49:32DT: 10/03/2018 20:24:12Job #: [id number] | + + X-RAY SPINE THORACIC 1 [...] [facility] | 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 Spine, | | | | | | [...] + + + + + | [facility] | [address] | [place] [address] | | | PATHOLOGY | [address] | | | + + + + + INTRAOPERATIVE NEURO MONITORING (10/03/2018) + + + | Narrative | Performed At | + + + | Patient Name: Qiana Worrell Date of : 1990 | | | Date of Test: 10/03/2018 Place of | | | Service: IP Intra Op [id number] INTRAOPERATIVE NEURO | | | MONITORING IOM: [...] | | | Norma Jordan MD, MA, [facility] Agency Service Coordinator of Neurology | | | Suggested CPT: G0453 - IOM Continuous divided attention to single | | | patient x 10 @ 15 min(s), [place] [address] - Short Latency EP's | | | Upper AND Lower extremities 53018 - Central Motor EP's Upper AND | [...] LABORATORY | [address] | [place] [address] | | | SERVICES, | [address] [...] LABORATORY | [address] | [place] [address] | | | SERVICES, | [address] [...] levels. These findings were discussed with Dr. Cahpin of the | | ED by Dr. [...] | + + + + + | [facility] | [address] | [place] [address] | | | SERVICES, | [address] [...] | + + + + + | [facility] | [address] | [place] [address] | | | SERVICES, CORE | JEAN [...] + + + + + | [facility] | [address] | [place] [address] | | | NINO LEONARD | JEAN [...] | | | LABORATORY | | | BRITISH | | | SERVICES, | | | [...] MDRD equation recommended by the | [facility] | | National Kidney Disease Education Program. [...] | + + + + + | [facility] | [address] | [place] [address] | | | SERVICES, CORE | JEAN [...] LABORATORY | [address] | [place] [address] | | | SERVICES, CORE | [address] | | | + + + + + ED INFORMATION EXCHANGE (10/01/2018 12:03 PM PDT) + + | Specimen | + + | | + + + + + | Narrative | Performed At | + + + | [id number] [id number] Criteria Met Has | COLLECTIVE | | Guidelines PDMP Security and Safety No recent Security Events | MEDICAL | | currently on file ED Care Guidelines from [facility] and | TECH[employer]OLOG[employer] | | [facility] Last Updated: 02/08/17 11:58 AM [facility] | | | Emergency DepartmentSuggested Care RecommendationsAuthor: Cecily Najera, | | | [facility] Umwvwy Update: | | | 02/08/2017Medical:- Thoracic intramedullary [...] provider/clinic: Dr. Princess Chowdary, | | | [facility], - Neurosurgery: [facility], | | | Rajinder Luis MD and PHILIPPE Mckeon - [phone]-Insurance care | | | coordinator: Estelita, -Housing: living in [facility] with | | | mother Judit [...] E.D. Visit Count (12 mo.) Facility Visits [facility] and | | | [facility] 1 [facility] 1 Total 2 Note: | | | Visits indicate total known visits. Recent Emergency Department | | | Visit Summary Date Facility City State Type Diagnoses or Chief | | | Complaint Oct 01, 2018 [facility] [place] | | | [place] Emergency [...] | | | [address] [facility] [place] Inpatient Rehab Spinal | [...] | | | unspecified Jul 06, 2018 [facility] | | | [place] Neuro Surgery 10,151. 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, soft tissue, and | | | skin Care Providers Provider PRC Type Phone Fax Service | | | Dates MARBIN CHAPIN, PARTS FACILITATOR- Nurse Practitioner: Family Current | | | MADHAVI MONTANEZ LCSW Outpatient Coder: Clinical ([phone] | | | [phone] Current CORNELIO VILLASENOR , [place] [employer] Shortage And Damage Clerk ([phone]) | | | [phone] Current [employer] Portal This patient | | | has registered at the [facility] | | | Emergency Department For more information visit: | | | [email or web address] | | | [email or web address] andnbsp PLEASE NOTE: [...] | or completeness of information provided. 2019 [employer]igo | | | [employer] - [email or web address] | | + + + + + | Procedure Note | + + | Service Account, Rtf Results Inbound - 10/01/2018 12:04 PM PDT Formatting of this | | note might be different from the original.COLLECTIVE?NOTIFICATION?10/01/2018 | | 12:01?QIANA WORRELL? [facility] Has Guidelines PDMPSecurity and | | SafetyNo recent Security Events currently on fileED Care Guidelines from [facility] | | and Science [facility] Updated: 02/08/17 11:58 AM [facility] Emergency DepartmentSuggested | | Care RecommendationsAuthor: Cecily Najera, LCSWAuthor Hxjzog | | Update: 02/08/2017Medical:- Thoracic intramedullary spinal [...] provider/clinic: Dr. Sparks | | Karma Chowdary [facility], - Neurosurgery: Rajinder QURESHI | | MD Toby and PHILIPPE Mckeon - [phone]-Insurance healthcare administration intern: Estelita, | | [phone]-Housing: living in [facility] with mother Judit and 4 y/o [...] 0 E.D. Visit Count (12 mo.)Facility Visits [facility] | and [facility] 1 [facility] 1 Total 2 Note: Visits indicate total | | known visits. Recent Emergency Department Visit SummaryDate Facility [facility] State Type | | Diagnoses or Chief Complaint Oct 01, 2018 [facility] [place] | | Emergency 10,800. MRI Jul 06, 2018 [facility] 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 Inpatient Rehab | | [...] dysfunction of bladder, unspecified Jul 06, 2018 [facility] | | [place] Neuro Surgery 10,151. Thoracic Spine Tumor 18,400. Neoplasm of | | unspecified behavior of bone, soft tissue, and skin Care ProvidersProvider PRC Type | | Phone Fax Service Dates MARBIN CHAPIN, PARTS FACILITATOR-BC Nurse Practitioner: Family Current | | MADHAVI MONTANEZ LCSW Outpatient Coder: Clinical [facility] | | CORNELIO Bates [place] [employer] Shortage And Damage Clerk Current Sale[employer] PortalThis | | patient has registered at the [facility] Emergency Department | | For more information visit: | | [email or web address] andnbsp | | PLEASE NOTE: 1. Any [...] completeness of information | | provided.? 2019 [facility] - [email or web address]! | |Oct 01, 2018 [facility] [place] Emergency | | 10,800. MRI | | | |Jul 06, 2018 [facility] [place] Emergency | | 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in | | Anesthesia of skin | | Allergy status to sulfonamides status | | Other terminal operator (current) drug therapy | | Brown-Sequard [...] unspecified | | | |Jul 06, 2018 [facility] [place] Neuro Surgery | | 10,151. Thoracic Spine Tumor | | 18,400. 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in | | | | | | | |Care Providers | |Provider PRC Type Phone Fax Service Dates | |MARBIN CHAPIN FNP-BC Nurse Practitioner: Family Current | |MADHAVI MONTANEZ LCSW Outpatient Coder: Clinical Current | |CORNELIO VILLASENOR , [place] [employer] Shortage And Damage Clerk Current | | | |[employer] Portal | |This patient has registered at the [facility] Emergency Departmen t | |For more information visit: [email or web address] | |andnbsp PLEASE NOTE: | | 1. [...] information provided. | | | |? 2019 Access Network. - [email or web address] | + + + + + + + | Performing | Address | City/State/Zipcode | Phone Number | | Organization | | | | + + + + + | [employer] | [address], | [place], [place] | [phone] | | TECHNOLOGIES | [address] | [address] | | + + + + + [...] 2:03 | | | | | dose, [facility] 10/01/18 at 1430 | | PM PDT [...] | | | | | CONTINUOUS, Starting [facility] 10/03/18 | | PM PDT | [...] | | | | | CONTINUOUS, Starting [facility] 10/03/18 | | AM PDT | [...] 4:43 | | | | | dose, [facility] 10/01/18 at 1715 | | PM PDT [...] | | | | ONCE, 1 dose, [facility] 10/04/18 at 0830 | | AM PDT [...]
--- OUTSIDE RECORDS SUMMARY | ~2019-06-26 | XMS | Encounter Summary ---
Demographics + + + | Address | [address] | | | [place] [address] | + + + | Home Phone [...] Team Providers + +------+ + | Care Alterations Expert Name | Role | Phone | + +------+ + | Tiff ChapinP | PCP | | + +------+ + Encounter Details +--------+ + + + + | Date | Type | Department | Care Team | Description | +--------+ + + + + | 07/13/ | Tobacco Farmworker | Neurosurgery at | Raegan Doss, | | | 2015 | | [facility] [address] | PA-C [address] | | | | | [place] Mailcode: CH[address] | Ave [place], [place] | | | | | [facility] | [address] | | | | | and [facility], | [phone] | | | | | [facility] | | | | | | Floor [facility] [place] | | | | | | [address] | | | | | | [phone] | | | +--------+ + + + [...]
--- OUTSIDE RECORDS SUMMARY | ~2019-06-26 | XMS | Encounter Summary ---
Demographics + + + | Address | [address] | | | [place] [address] | + + + | Home Phone [...] Team Providers + +------+ + | Care Supervisor Securities Vault Name | Role | Phone | + +------+ + | Tiff ChapinP | PCP | | + +------+ + Encounter Details +--------+ + + + + | Date | Type | Department | Care Team | Description | +--------+ + + + + | 07/13/ | Dobie Worker | Neurosurgery at | Raegan Doss, | | | 2015 | | [facility] [address] | PA-C [address] | | | | | [place] Mailcode: CH[address] | [address] [place], [place] | | | | | [facility] | [address] | | | | | and [facility], | [phone] | | | | | [facility] | | | | | | Floor [facility] [place] | | | | | | [address] | | | | | | [phone] | | | +--------+ + + + [...]
--- OUTSIDE RECORDS SUMMARY | ~2019-06-26 | XMS | Encounter Summary ---
Demographics + + + | Address | [address] | | | [place] [address] | + + + | Home Phone [...] Team Providers + +------+ + | Care Aircraft Mechanic Name | Role | Phone | [...] | | [place] Mailcode: [address] | [place], [place] | | | | | [facility] | [address] | | | | | and [facility], | [phone] | | | | | [facility] | | | | | | Floor [place], [place] | | | | | | [address] | | | | | | [phone] | | | +--------+ + + + [...]
--- OUTSIDE RECORDS SUMMARY | ~2019-06-26 | XMS | Encounter Summary ---
Demographics + + + | Address | [address] | | | [place] [address] | + + + | Home Phone [...] Team Providers + +------+ + | Care Recreation Programmer Name | Role | Phone | + [...] | | | spine tumor | [address] | | | | | | Procedures | [address] | | | | | | | [place], | | | | | | OCCUPATIONAL | [place] | | | | | | THERAPY | [address] | | | | | | REFERRAL | Phone: | | | | | | | [phone] | | | | | | | Fax: | | | | | | | [phone] | | +--------+--------+ + + + + [...] | | | spine tumor | [address] | | | | | | Procedures | [address] [place] | | | | | | PHYSICAL | [facility], | | | | | | THERAPY | [place] | | | | | | REFERRAL | [address] | | | | | | | Phone: | | | | | | | [phone] | | | | | | | Fax: | | | | | | | [phone] | | +--------+--------+ + + + + [...] + + + + | 05/12/ | [facility] Thalia [facility] [address] | Rajinder Luis MD | | | 2015 - | Encounter | [address] | [address] | | | | | [id number] [facility] | [place], [place] | | | 05/20/ | | [facility], | [address] | | | 2015 | | [place] [address] | [phone] | | | | | [phone] | | | +--------+ + + + [...] Luis MD PCP: PATRIC Todd Service: [facility] Neurosurgery Diagnoses Principal Final Diagnosis: Intramedullary spinal [...] patient was felt appropriate for discharge to [facility] (Stephan LYONS) on 05/20/2015, and the patient [...] Destination: Destination: Inpatient Rehab - Stephan GOLDSTEIN [facility] Condition on Discharge Good Discharge Follow Up - Facility MD to follow Facility MD to follow patient. FOLLOW-UP You have a wound check appointment with Raegan Doss PA-C at 11:30am on 05/31. This will be on the 8th floor at the [facility] on the [facility] located at [address] [place] [address]. Please call [phone] if you have any questions or conc erns before your appointment time. If you are still admitted to [facility] at this time, it is okay to cancel this appointment as thais costa as a provider at that facility can examine your incision. Please then make an appointmen t with Raegan Doss for 1 month following your discharge from [facility]. PCP:PATRIC Todd When: Please follow-up with your [...] 0500) Discharge Patient To: Interhospital Transfer - [facility] Does patient have a planned readmission: No Discharge Summary Completed?: Yes. 05/20/2015 Discharging Provider: Raegan Doss PA-C Date Completed: 05/20/2015 Time Completed: 7:50 AM Discharging Attending: Rajinder Luis MD [facility] [address] [address] [address] documented in this encounter Progress Notes Raegan Doss PA-C - 05/20/2015 6:51 AM PSTFormatting of this note might be different f rom the original. Neurosurgery Progress Note Hospital Day:8 Author; Raegan Doss PA-C Attending Physician: Rajinder uLis MD Interval Hx: -Pt reports not sleeping [...] al sides of foot. Motor: Tri Bi Commercial Lease Administrator HF KE APF ADF Left 5 5 [...] IPR (Stephan [facility]) today. Raegan Doss PA-C [facility] [address]O [address] [address] [address] [place], PHILIPPE Mena - 05/19/2015 [...] Delivery Device: None (room ai r) (05/19/15 7273) 24 Hour Vital Min/Max: Systolic (24hrs), Av mmHg, Min:97 mmHg, Max:133 mmHgDiastolic (24hrs), Av mmHg, Mi n:51 mmHg, Max:73 mmHgPulse Min: 76 Max: 101 Temp Min: 36.4 C (97.5 F) Max: 36.9 C (98.4 F) Resp Min: 16 Max: 16 SpO2 Min: 95 % Max: 99 % Intake/Output Summary (Last 24 hours) at 05/19/15 7739 Last data filed at 05/19/15 0330 Gross [...] rest of the LLE. Motor: Tri Bi Commercial Lease Administrator HF KE APF ADF Left 5 5 [...] for IPR placement. Raegan Doss PA-C [facility] [address] [facility] [address]/[address]2 [place] [address] dams, PHILIPPE Mena - 05/18/2015 6:52 AM [...] Delivery Device: None (room ai r) (05/18/15 3453) 24 Hour Vital Min/Max: Systolic (24hrs), Av [...] intact at pre-op baseline. Motor: Bi Tri Commercial Lease Administrator HF KE APF ADF Left 5 5 [...] for IPR placement. Raegan Doss PA-C [facility] [address] [address] [address] dams, PHILIPPE Mena - 05/17/2015 8:48 AM [...] at pre-op baseline. Motor: Delt Tri Bi Commercial Lease Administrator HF KE APF ADF Left 5 5 [...] for IPR placement. Raegan Doss PA-C [facility] [address]B [address] [address] [place] [address] Cesar Cox MD - 02/2015 9:39 AM [...] 05/14/2015 ICU Attending: MD Sarina Admit [place] [facility] [place] 2 [...] information of next of kin: mother [place] [phone] Disposition: Acute care Code: Full This patient has been staffed with Lesly Branch MD , attending physician, who agrees with the above assessment and plan. [facility] DEPARTMENT: [id number] ICU NEURO Place of Service:- Inpatient Date of Service: 05/14/2015 CSN: [id number] Lab Results Component Value Date WBC 23.58 [...] and check patient later Yokasta Randall PGY2 [id number] Lesly Flynn MD - 8:25 AM PSTNSICU [...] due to CSF hai k, cord injury, MS, UTI, acute blood loss anemia, DVT 1. [...] DVT proph with SCDs. Lesly Branch M.D. Shipping Checker, Neurology and Emergency Medicine I spent 20 minutes in direct care of this patient with over 50% spent at the patient s b eside, reviewing data, discussing the patient s care with other medical staff, charting, a nd discussion with treatment decision maker. [facility] DEPARTMENT: [id number] CRITICAL CARE Place of Service: Inpatient Date of Service: 05/14/2015 CSN: [id number] Suggested Level of Care: 51360 - SUBSEQUENT HOSPITAL CARE,LEVEL III olly Hankins [...] the or iginal. NSICU Neuroscience ICU Attending Blogs Manager Note I have seen and evaluated Matt [...] and coordination of care Cathy Cespedes MD,PhD [facility] DEPARTMENT: [id number] ICU NEURO Place of Service:- Inpatient Date of Service: 05/13/2015 CSN: [id number] Suggested Modifier: Resident involved Suggested CPT: TO SALES CLOSER Gilbert Collins MD,MPH - 05/13/2015 8:49 PM [...] and entire foot. Motor: Tri Bi WE Commercial Lease Administrator HF KE APF ADF Left 5 5 [...] available prn pain Raegan Doss PA-C [facility] [address] [place] [address] Polly Collins MD,MPH - 05/12/2015 7:33 PM [...] Attending | | Surgeon: Rajinder Luis MD Primer Waterproofing Machine Adjuster(s): Jere Story MD | | Preoperative Diagnosis: [...] | | 05/15/2015 08:21:01DT: 05/15/2015 08:59:43Job #: [id number] | | | |Rajinder Luis MD | |EZEKIEL/KELSEYL | | | | | | /[id number] | + + MAGNESIUM, PLASMA (05/17/2015 10:09 [...] | [facility] | [address] | [place] [address] | | | SERVICES, CORE | JEAN [...] | + + + + + | [facility] | [address] | [place] [address] | | | SERVICES, CORE | JEAN [...] | | | LABORATORY | | | EQUATORIAL GUINEAN | | | SERVICES, | | | [...] | + + + + + | [facility] | [address] | [place] [address] | | | SERVICES, CORE | JEAN [...] | + + + + + | [facility] | [address] | [place] [address] | | | SERVICES, CORE | JEAN [...] | | | LABORATORY | | | EQUATORIAL GUINEAN | | | SERVICES, | | | [...] the MDRD equation recommended by the | [facility] | | National Kidney Disease Education Program. [...] LABORATORY | [address] | [place] [address] | | | SERVICES, CORE | PARK [...] LABORATORY | [address] | [place] [address] | | | SERVICES, CORE | JEAN [...] [facility] | [address] | [place] [address] | | | SERVICES, CORE | PARK [...] | | | LABORATORY | | | EQUATORIAL GUINEAN | | | SERVICES, | | | [...] the MDRD equation recommended by the | [facility] | | National Kidney Disease Education Program. [...] + + + + + | [facility] | [address] | [place] [address] | | | HORACIO, CORE | JEAN [...] + + + + + | [facility] | [address] | [place] [address] | | | SERVICES, CORE | JEAN [...] | + + + + + | [facility] | [address] | [place] [address] | | | SERVICES, CORE | PARK [...] | | | LABORATORY | | | EQUATORIAL GUINEAN | | | SERVICES, | | | [...] | + + + + + | [facility] | [address] | [place] [address] | | | SERVICES, CORE | JEAN [...] | + +---------+ + + | [facility] DEPARTMENT OF | | | | | [...] LABORATORY | [address] | [place] [address] | | | SERVICES, CORE | PARK [...] | | | LABORATORY | | | EQUATORIAL GUINEAN | | | SERVICES, | | | [...] the MDRD equation recommended by the | [facility] | | National Kidney Disease Education Program. [...] | + + + + + | [facility] | [address] [facility] [facility] [address] | [place] [address] | | | SERVICES, NINO | JEAN CARLOS | | | + + + + + INTRAOPERATIVE NEURO MONITORING (05/13/2015) + + + | Narrative | Performed At | + + + | Patient Name: Matt Fagan Date of : 1990 | | | Date of Test: 05/13/2015 Place of | | | Service: IP Intra Op (56) [id number] INTRAOPERATIVE NEURO | | | MONITORING History: [...] min(s), with modifier GY | | | 01621 - Short Latency EP's Upper AND Lower extremities 41243 - | | | Central Motor EP's [...] 2008 | | | | | | 1;15(57):0328-56. | | | | | | Edison Veloz et al. IDH1 and | | | | | | IDH2 mutations in | | | | | | gliomas. N Engl J Med. | | | | | | 2008Feb | | | | | | 19;360(8):897-661.3. | | | | | | Lewis [...] 2008 | | | | | | (12):3653-750. | | | | | | Rogelio [...] # | | | | | | [id number]. It has not | | | | [...] + + + | [facility] | [address] | [place] [address] | | | DIAGNOSTIC | [address] [...] (7q34)break-apart/ | | | | | | [id number] probe set. 50 | | | | [...] | | | | | | Probe(s): [place] | | | | | | Genomics BRAF | | | | | | break-apart (7q34) / | | | | | | [id number] (SA) (7q34) | | | | | [...] clinical | | | | | | piano sounding board matcher.Amended to | | | | | | [...] + + + + | [facility] | [address] | [place] [address] | | | DIAGNOSTIC | [address] [...] | A BRAF MUTATION ANALYSIS | | [facility] | | | MUTATION | (EXON [...] | | | | | | Bi-directional [place] | | | | | | sequencing with | | | | | | HEAD CONCIERGE-clamp for | | | | | | [...] doi: | | | | | | 10.1097/WCO.[id number] | | | | | | 0217.2. Jessica CM, | | | | | | Cheo SR, Shelton | | | | | | FJ, Jena JS, Lopez Keys BE, | | | | | | Jacquie AR,Dl GUS, | | | | | | Chuckie TAXI DANCERWarren C. 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 | | | | | | Proc Natl Acad Sci U S | | | | | | A. 2011 May | | | | | | 29;109(22):5924-69. | | | | | | Dyson-Santagatitz [...] | | | | | | S. [id number] mutations | | | | | | are common in | | | | | | pleomorphic | | | | | | xanthoastrocytoma: | | | | | | diagnostic | | | | | | andtherapeutic | | | | | | implications. PLoS One. | | | | | | 2010 Mar | | | | | | 29;6(3):f97563.5. | | | | | | April [...] 2009 | | | | | | Rashad;12(7):061-30.7. | | | | | | Chance [...] Pathol. | | | | | | 2012Mar;139(3):152-88. | | | | | | (Analyte [...] # | | | | | | [id number]. It has not | | | | [...] | [facility] | [address] | [place] [address] | | | DIAGNOSTIC | [address] [...] of | | | | | | [facility] | | | | | | [facility]. Please | | | | | | [...] into | | | | | | DYEING MACHINE TENDER tissue. Tumor cells | | | | [...] block | | | | | | U3Smbfohzkrhttcukpfams | | | | | | stains: see IHC | | | | | | tableNo Electron | | | | | | microscopy | | | | | | performedMolecular | | | | | | genetic studies | | | | | | performedOther Molecular | | | | | | Studies: PCR for BRAF | | | | | | [id number] for BRAF | | | | | [...] | | | | | | Block X4Jkptdagnbo: | | | | | | Tumor cells | | | | | | Marker Result | | | | | | CommentGlial | | | | | | Fibrillary Acidic | | | | | | Protein | | | | | | PositiveVimentin | | | | | | PositiveOlig 2 | | | | | | PvhwtengGC85 % | | | | | | Positive less than | | | | | | 5%PhosphoHistone 3, | | | | | | mitotic marker | | | | | | NegativeEpithelial | | | | | | Membrane Antigen | | | | | | NegativeATRX(DYEING MACHINE TENDER and | | | | | | [...] PositiveChromogranin | | | | | | NsuweddrMH34 (HPCA-1) | | | | | | [...] + + + + + | [facility] | [address] | [place] [address] | | | PATHOLOGY | [address] [...] | + +---------+ + + | [facility] DEPARTMENT OF | | | | | [...] LABORATORY | [address] | [place] [address] | | | SERVICES, | [address] [...] | + + + + + | [facility] | [address] | [place] [address] | | | SERVICES, | JEAN CARLOS [...] LABORATORY | [address] | [place] [address] | | | SERVICES, CORE | JEAN [...] + + | [facility] | [address] [facility] | [place] [address] | | | SERVICES, CORE | PARK [...] | | | LABORATORY | | | EQUATORIAL GUINEAN | | | SERVICES, | | | [...] + + + + + | [facility] | [address] | [place] [address] | | | SERVICES, CORE | JEAN [...] + + | [facility] | [address] [facility] | [place] [address] | | | NINO LEONARD | JEAN [...] | + + + + + | [facility] | [address] | [place] [address] | | | SERVICES, NINO | JEAN [...] | | | | | modification) on [place] 05/16/15 at | | | | | [...] tablet | | | 1 dose, Starting [facility] 05/13/15 at | | | 8, [...] | | | PROCEDURE ONCE, 1 dose, [facility] | | | | | | | 05/13/15 at 2230 | | | | | | + +---------+ +---------+---+---+ + +---+ | | | + +---+ | fentaNYL citrate (PF) | | | (SUBLIMAZE) injection 1 dose, | | | Starting [facility] 05/13/15 at 1925, | | | Until [facility] 05/13/15 at 2007 | | + +---+ | | | + +---+ + +-------+ +--------+---+---+ | gabapentin (NEURONTIN) capsule | Given | 05/20/20 | 300 mg | | | | 300 mg 300 mg, oral, THREE TIMES | | 15 9:29 | | | | | DAILY, First dose on [facility] 05/13/15 | | AM PST | [...] | | | | ONCE, 1 dose, [facility] 05/13/15 at 2345 | | PM [...] PST | | | | | Until [facility] 05/20/15 at 1737, | | | | | | | insomnia | | | | | | + +-------+ +------+---+---+ +---+---+ | | | +---+---+ documented in this encounter
--- OUTSIDE RECORDS SUMMARY | ~2019-06-26 | XMS | Encounter Summary ---
Demographics + + + | Address | [address] | | | [place] [address] | + + + | Home Phone [...] Providers + +------+ + | Care Pediatric Psychologist Name | Role | Phone | + [...] | | | | Mailcode: CH6A | [facility] | | | | | [place], [place] | [place] | | | | | [address] | [address] | | | | | [phone] | | | +--------+ + + + [...]
--- OUTSIDE RECORDS SUMMARY | ~2019-06-26 | XMS | Encounter Summary ---
Demographics + + + | Address | [address] | | | [place] [address] | + + + | Home Phone [...] Providers + +------+ + | Care Commercial Electrician Name | Role | Phone | + [...] | | | | | tumor | [facility] [place] | | | | | | Procedures | [address] | | | | | | MRI SPINE | Phone: | | | | | | THOR / LUMB | [phone] | | | | | | WWO CONTRAST | Fax: | | | | | | | [phone] | | + +--------+ + + + [...] | | | | | NEUROLOGY | [place], [place] | Physician's | | | | | | [address] | Pavilion | | | | | | Phone: | [place], [place] | | | | | | [phone] | [address] | | | | | | Fax: | Phone: | | | | | | [phone] | [phone] | | | | | | | Fax: | | | | | | | [phone] | +--------+--------+ + + + + Consultation [...] | | | | | Glioneuronal | [address] | [address] [facility] | | | | | tumor | [address] | [address] | | | | | Procedures | [place], [place] | [place], | | | | | CONSULT TO | [address] | [place] | | | | | RADIATION | Phone: | [address] | | | | | ONCOLOGY | [phone] | Phone: | | | | | | Fax: | [phone] | | | | | | [phone] | Fax: | | | | | | | [phone] | +--------+--------+ + + + + Encounter Details +--------+ + + + + | Date | Type | Department | Care Team | Description | +--------+ + + + + | 10/11/ | Documentati | Neurosurgery at | Tony Mancilla | | | 2019 | on | [facility] [address] Fisher MD [address] [facility] | | | | | Shwetha Mailcode: CH8N | [address] | | | | | [facility] | [place], [place] | | | | | natacha [address], | [address] | | | | | [place] [address] [facility] | [phone] | | | | | [place], [place] | | | | | | [address] | | | | | | [phone] | | | +--------+ + + + [...]
--- OUTSIDE RECORDS SUMMARY | ~2019-06-26 | XMS | Encounter Summary ---
Demographics + + + | Address | [address] | | | [place] [address] | + + + | Home Phone [...] Team Providers + +------+ + | Care Varitypist Name | Role | Phone | + +------+ + | Tiff Chapin | PCP | | + +------+ + Encounter Details +--------+ + + + + | Date | Type | Department | Care Team | Description | +--------+ + + + + | 09/08/ | Document-Sc | Health Information | Unknown . | | | 2016 | anned | Services [address] | | | | | | [address] | | | | | | Mailcode: OP17A | | | | | | [facility] | | | | | | [place], [place] | | | | | | [address] | | | | | | [phone] | | | +--------+ + + + [...]
--- OUTSIDE RECORDS SUMMARY | ~2019-06-26 | XMS | Encounter Summary ---
Demographics + + + | Address | [address] | | | [place] [address] | + + + | Home Phone [...] Team Providers + +------+ + | Care Music Leader Name | Role | Phone | [...] Shetty | | | | Note-Transc | [place], [place] | [facility] | | | | ribed | [address] | ER Med [address] | | | | | | [place], [place] | | | | | | [address] | | | | | | | [...]
--- OUTSIDE RECORDS SUMMARY | ~2019-06-26 | XMS | Encounter Summary ---
Demographics + + + | Address | [address] | | | [place] [address] | + + + | Home Phone | | + + + | Preferred Language | Unknown | + + + | Marital Status | Single | + + + | Jehovah'S Witness Affiliation | NON | + + + [...] Team Providers + +------+ + | Care Mounter Clarinets Name | Role | Phone | + [...] | | | | | | [facility] | | | | | | Hospital Admitting | | | | | | Desk Located on the | | | | | | 9th floor | | | | | | [place], [place] | | | | | | [address] | | | +--------+ + + + [...]
--- OUTSIDE RECORDS SUMMARY | ~2019-06-26 | XMS | Encounter Summary ---
Demographics + + + | Address | [address] | | | [place] [address] | + + + | Home Phone [...] | + + +---------+ + | Judit Faagn | ECON | Unknown | | + + +---------+ + Care Team Providers + +------+ + | Care Transformer Shop Supervisor Name | Role | Phone | [...] | | | | Mailcode: CH6A | [facility] | | | | | [place], [place] | [place] | | | | | [address] | [address] | | | | | [phone] | | | +--------+ + + + [...]
--- OUTSIDE RECORDS SUMMARY | ~2019-06-26 | XMS | Encounter Summary ---
Demographics + + + | Address | [address] | | | [place] [address] | + + + | Home Phone [...] Team Providers + +------+ + | Care Hunter Guide Name | Role | Phone | + [...] MD | | | | | | [address] | [address] | | | | | | [address] | [address] | | | | | | Rd [facility] | [place], [place] | | | | | | [facility] | [address] | | | | | | [place], [place] | Phone: | | | | | | [address] | [phone] | | | | | | Phone: | Fax: | | | | | | [phone] | [phone] | +--------+--------+ + + + + Encounter [...] | | West[place] Mailcode: CH8N | [place], [place] | | | | | [facility] | [address] | | | | | and Healing, | [phone] | | | | | [facility] | | | | | | Floor [facility] [place] | | | | | | [address] | | | | | | [phone] | | | +--------+---------+ + + + [...] today to discuss her recent move to [place] and medica tion coverage. She moved in 1 week ago with her boyfriend's family and would like to establi sh with a local PCP. She has not seen her PCP, Tiff SPIVEY, since discharging from [facility] recently and is unsure of who can [...] like to start PT session s at [facility]. Ht 1.6 m (5' 3"), Wt [...] strength post-op. Patient has now moved to [place] and wishes t o establish PCP care locally. Plan: -The patient will call her PCP, PATRIC Becerra, and ask if she will be willing to contin ue writing prescriptions for her while she looks for a PCP in the [facility] area. -The patient will actively look for a PCP locally. 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
--- OUTSIDE RECORDS SUMMARY | ~2019-06-26 | XMS | Encounter Summary ---
Demographics + + + | Address | [address] | | | [place] [address] | + + + | Home Phone [...] Providers + +------+ + | Care Clinical Research Scientist Name | Role | Phone | + [...] | | | spine tumor | [place] [address] | | | | | | Procedures | [address] | | | | | | | [place], [place] | | | | | | OCCUPATIONAL | [address] | | | | | | THERAPY | Phone: | | | | | | REFERRAL | [phone] | | | | | | | Fax: | | | | | | | [phone] | | +--------+--------+ + + + + [...] | | | | | PHYSICAL | [facility] [place] | Mailcode: | | | | | THERAPY | [address] | [facility] | | | | | REFERRAL | Phone: | [facility] | | | | | | [phone] | Husam Sanders, | | | | | | Fax: | [address]St floor | | | | | | [phone] | [place], [place] | | | | | | | [address] | | | | | | | Phone: | | | | | | | [phone] | | | | | | | Fax: | | | | | | | [phone] | + +--------+ + + + + [...] | 07/06/ | Hospital | [facility] [address] | April Beck MD | | | 2018 - | Encounter | [address] | [address] | | | | | [id number] [facility] | [facility] | | | 07/12/ | | [facility], | [place], [place] | | | 2018 | | [place] [address] | [address] | | | | | [phone] | [phone] | | | | | | | | | | | | Rajinder Luis MD | | | | | | [address] | | | | | | [place], [place] | | | | | | [address] | | | | | | [phone] | | | | | | | [...] has been followed in the [facility] Neurosurgical c linic for 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 The patient noted new onset of right lower extrem ity weakness on 07/06/2018 and then presented to the hospital for evaluation. Ms. Worrell was transferred to [facility] on 07/06/2018. A MRI showed cord dissection [...] from the beginning. Dura was closed with Richburg-Thaddeus, tacked up with 4-0 Nurol on sutures. [...] patient was felt appropriate for discharge to [place] (Inpatient Rehab) on 07/12/2018, and the patient and/or family members agree with this course of action. The janeth chang has a follow up appointment in the [facility] Neurosurgery Spine clinic on 07/31/2018. Medication List [...] on the 1 2th floor at the [facility] on the [facility] located at [address] [place] [address]. Please call [phone] if you have any questions or concerns bef ore your appointment time. Code Status for Facility Status: Full Code Discharge Follow Up - Facility MD to follow Facility MD to follow patient. Future Appointments Provider Department Dept Phone Center 07/31/2018 1:00 PM Raheem Doss [facility] at [facility] [phone] [facility] Contact information for after-discharge care [facility] [place] . Specialty: [facility] Facility Contact information [address] [facility] [address] Warning Symptoms and Signs Please call the Neurosurgery clinic at [phone] with any questions Sunday to Sunday 8 A M - 4 PM. After hours, call [facility] at [phone] and ask to speak with the Neurosurgery resi dent refrigeration service technician if you have any of the following: - Difficulty breathing or shortness of breath; - Excessive bleeding or drainage from incision sites; - Fevers, chills, sweats; - Persistent nausea or vomiting; - Change in mental status. [facility] Neurosurgery Service Pain Policy [facility] Neurosurgery Service Pain Policy: Our clinic can prescribe pain medication for up to 6 weeks post-op. All refills must be requested through a the [facility] Neurosurgery Clinic. Patients must give the Outpatient [...] - 1.10 mg/dL 0.45 (L) EGFR - BAHRAINI Latest Ref Range: >60 mL/min >60 EGFR NON -BAHRAINI Latest Ref Range: >60 mL/min >60 GLUCOSE, [...] case management. CALEB HENRY PA-C [facility] [address] [address]/[place] [address] MEDICATIONS Current Facility-Administered Medications Medication acetaminophen (TYLENOL) [...] 2 tablet traZODone (DESYREL) dose 75 mg daia, Raheem Nieves PA-C - 07/11/2018 8:39 AM [...] at TRISTON/IPR. RAHEEM DOSS PA-C [facility] [address] [place] [address] dams, PHILIPPE Mena - 07/10/2018 8:17 AM [...] the ri sks of keeping it in halfway. -She was able to sit upright yesterday [...] DOSS PA-C [facility] [address] [place] [address] Mook Álvarez ra, MD - 07/09/2018 9:09 [...] WORRELL Routine Cultures PROCEDURE: Strep Screen Culture [[id number]: 11/05/2017 16:4 4 PDT P1] SOURCE: Throat STARTED: 11/05/2017 20:3 9 PDT FREE TEXT SOURCE: BODY SITE: FINAL REPORTS Final Report [] Verified Date/Time: 11/07/2017 11:07 PDT No beta Strep isolated. Order Comments O1: Strep Screen Culture (CULTURE THROAT STREP SCREEN - [facility] - Ordering-Phys: PRINCESS GRAVES) Location: [facility] Performing Locations P1: This test was performed at: [facility] Lab Results Component Value Date APTT [...] Please contact the Neurosurgery resident on-call pager [phone] with questions or concerns. Olinda Araya MD Resident Physician Department of Neurosurgery Lucinda Valencia PA-C - 07/09/2018 5:50 AM PSTFormatting of this note might be diffe rent from the original. . Neuroscience Intensive Care Unit Team Progress Note NSICU ASSIGNED #[id number] ICU Admission Reason Most Recent Value ICU [...] Provider Role Specialty Ipt Critical Care Nsicu #11142 Treatment Team Ipt Neurosurgery #34085 Treatment Team Neurological Surgery Patient Lines/Drains/Airways Status [...] Date of Service: 07/09/2018 LUCINDA CASTAÑEDA PA-C [facility] DEPARTMENT: ANE ICU NEURO Place of Service:- Inpatient CSN: [id number] Suggested Modifier: None Suggested CPT: TO IS SUPPORT ANALYST Author:LUCINDA CASTAÑEDA PA-C [place] [address] [phone] Kamaljit Rios MD,MPH - 07/08/2018 3:00 PM [...] Please contact the Neurosurgery resident on-call pager [phone] with questions or concerns. Kamaljit Rios M.D., M.P.H. R2 Resident Physician Neurological Surgery Pager: [phone] signed by Kamaljit Rios MD,MPH at 07/08/2018 [...] Imaging: MRI SPINE THORACIC WO CONTRAST Order: [id number] Performed: 07/07/2018 15:00 Status: Final result Visible [...] MG/ML) INT RAVENOUS SOLUTION 13 mL (accession [id number]), GADOTERATE MEGLUMINE 0.5 MMOL/ML (376.9 MG/ML) INTRAVENOUS SOLUTION 13 mL (accession [id number]) FINDINGS: Thoracic spine: There is abnormal T2 [...] 15:48 CT SPINE THORACIC WO CONTRAST Order: [id number] Performed: 07/07/2018 15:12 Status: Final result Visible [...] baclofen, trazodone RAHEEM DOSS PA-C [facility] [address] [place] [address] Dave Mcclain MD - 07/07/2018 12:34 PM [...] today Dave Ayala MD Neurosurgery, PGY-1 Pager [phone] Dave Mcclain MD - 07/07/2018 7:38 AM [...] pre-op today -npo at midnight Please page [phone] with any questions or concerns. Dave Ayala MD Neurosurgery, PGY-1 Pager [phone] documented in this encounter Plan of Treatment [...] | | | LABORATORY | | | BAHRAINI | | | SERVICES, | | | [...] + + + + | [facility] [email or web address] | [address] | [place] [address] | | | SERVICES, NINO | JEAN [...] [facility]CE[facility] | [address] | [place], [place] | | | JAVIER POINT OF CARE | [facility] | [address] | | | TESTS | | | [...] | + + + + + | [facility] | [address] | [place] [address] | | | SERVICES, CORE | JEAN [...] + + + + | [facility] LABORATORY | [address] | [place] [address] | | | SERVICES, CORE | PARK [...] | | | LABORATORY | | | BAHRAINI | | | SERVICES, | | | [...] the MDRD equation recommended by the | [facility] | | National Kidney Disease Education Program. [...] + + + + | [facility] LABORATORY | [address] | [place] [address] | | | NINO LEONARD | JEAN [...] MARQU[facility] | [address] | [place], [place] | | | ZELALEM HERRERA OF NURIA | [address] | [address] | | | TESTS | | | [...] BRAMBILA | [address] | [place], [place] | | | ZELALEM HERRERA OF CARE | [address] | [address] | | | TESTS | | | [...] MARQUAM | [address] | [place] | | | ZELALEM HERRERA OF NURIA | [address] | [address] | | | TESTS | | | [...] | + + + + + | [facility] | [address] | [place] [address] | | | SERVICES, CORE | JEAN [...] LABORATORY | [address] | [place] [address] | | | SERVICES, CORE | PARK [...] | | | LABORATORY | | | BAHRAINI | | | SERVICES, | | | [...] | + + + + + | [facility] | [address] | [place] [address] | | | SERVICES, NINO | JEAN [...] + +---------+ + + | [facility] RADIOLOGY | | | | | VOICE RECOGNITION 2 | | | | + +---------+ + + OPERATION RECORD (07/08/2018 7:40 PM PST) + + | Procedure Note | + + | Rajinder Luis MD - 07/08/2018 7:40 PM PST Date of Service: 07/08/2018 Attending | | Surgeon: Rajinder Luis MD Meat Smoker(s): Yokasta Webb MD. | | Preoperative Diagnoses: [...] | | beginning. Dura was closed with Richburg-Thaddeus, tacked up with 4-0 Nurolon sutures. The | | muscle closed in layers. Skin was closed with 2-0 interrupted vertical mattress | | sutures.Indications For Procedure: Please see [facility] for full details, but briefly, | [...] the operating room | | on a [facility]. She was intubated without difficulty by the [...] then closed it with a running 6-0 Richburg-Thaddeus suture. We tacked out the | | [...] 07/08/2018 | | 19:06:44DT: 07/08/2018 19:40:29Job #: [id number] | |Indication: Intraoperative evaluation of adequacy of [...] |JLG/MODL | | | | | | /[id number] | + + PROCEDURE NOTE (07/08/2018 4:53 [...] LABORATORY | [address] | [place] [address] | | | HORACIO, NINO | PARK [...] + + + + | [facility] [email or web address] | [address] | [place] [address] | | | SERVICES, CORE | JEAN [...] | | | LABORATORY | | | BAHRAINI | | | SERVICES, | | | [...] | + + + + + | [facility] | [address] | [place] [address] | | | SERVICES, CORE | JEAN [...] BRAMBILA | [address] | [place], [place] | | | ZELALEM HERRERA OF NURIA | [address] | [address] | | | TESTS | | | [...] | | | Yokasta Webb PGY5 Pager [phone] YOKASTA WEBB MD | | + + [...] from | | | | | | [id number], | | | | | | [id number], | | | | | | [id number], and | | | | | | [id number]). According | | | | | | to [facility], molecular | | | | | [...] | | | | | | y, [facility] & | | | | | | [facility] | | | | | | electronic [...] | | | | | | number [id number]. | | | | | | Other, [...] | | | determined by [facility] | | | | | | laboratories. [...] + + + + | [facility] DEPARTMENT | [address] | [place] [address] | | | PATHOLOGY | [address] | | | + + + + + CBC (HEMOGRAM) ONLY (07/08/2018 4:13 AM PST) + +---------+ + + + | Component | Value | Ref Range | Performed | Pathologist | | | | | At | Signature | + +---------+ + + + | WHITE CELL | 9.37 | 3.50 - 10.80 | [facility] | | | COUNT | | K/cu [...] LABORATORY | [address] | [place] [address] | | | SERVICES, CORE | PARK [...] | + + + + + | [facility] | [address] | [place] [address] | | | SERVICES, CORE | PARK [...] | | | LABORATORY | | | BAHRAINI | | | SERVICES, | | | [...] | + + + + + | [facility] | [address] | [place] [address] | | | SERVICES, NINO | [address] | | | + + + + + INTRAOPERATIVE NEURO MONITORING (07/08/2018) + + + | Narrative | Performed At | + + + | Patient Name: Qiana Worrell Date of : 1990 | | | Date of Test: 07/08/2018 Place | | | of Service: IP Intra Op [phone] [id number] INTRAOPERATIVE | | | NEURO MONITORING IOM: [...] min(s), with | | [place] [address] - Short Latency EP's Upper AND Lower extremities | | | 03614 - Central Motor EP's Upper AND Lower [...] SOLUTION 13 | | | mL (accession [id number]), GADOTERATE MEGLUMINE 0.5 MMOL/ML (376.9 | | | MG/ML) INTRAVENOUS SOLUTION 13 mL (accession [id number]) FINDINGS: | | | Thoracic spine: There [...] (376.9 MG/ML) INTRAVENOUS SOLUTION 13 mL (accession [id number]), | | GADOTERATE MEGLUMINE 0.5 MMOL/ML (376.9 MG/ML) INTRAVENOUS SOLUTION 13 mL (accession | | [id number]) FINDINGS:Thoracic spine: There is abnormal T2 hyperintensity [...] SOLUTION 13 | | | mL (accession [id number]), GADOTERATE MEGLUMINE 0.5 MMOL/ML (376.9 | | | MG/ML) INTRAVENOUS SOLUTION 13 mL (accession [id number]) FINDINGS: | | | Thoracic spine: There [...] (376.9 MG/ML) INTRAVENOUS SOLUTION 13 mL (accession [id number]), | | GADOTERATE MEGLUMINE 0.5 MMOL/ML (376.9 MG/ML) INTRAVENOUS SOLUTION 13 mL (accession | | [id number]) FINDINGS:Thoracic spine: There is abnormal T2 hyperintensity [...] | + + + + + | [facility] | [address] | [place] [address] | | | SERVICES, | JEAN CARLOS [...] LABORATORY | [address] | [place] [address] | | | SERVICES, | [address] [...] LABORATORY | [address] | [place] [address] | | | SERVICES, CORE | PARK [...] | + + + + + | [facility] | [address] | [place] [address] | | | SERVICES, CORE | PARK [...] | | | LABORATORY | | | BAHRAINI | | | SERVICES, | | | [...] [facility] | [address] | [place] [address] | | | SERVICES, CORE | PARK [...] | | | | ONCE, 1 dose, Ovalo 07/07/18 at | | PM PST | [...]
--- OUTSIDE RECORDS SUMMARY | ~2019-06-26 | XMS | Encounter Summary ---
Demographics + + + | Address | [address] | | | [place] [address] | + + + | Home Phone [...] Author + + + | Author | [facility] | + + + | Organization | [facility] | + + + | [...] Team Providers + +------+ + | Care Load Checker Name | Role | Phone | + +------+ + | No Pcp Per Patient | PCP | Unavailable | + +------+ + Encounter Details +--------+ + + + + | Date | Type | Department | Care Team | Description | +--------+ + + + + | 01/11/ | Procedure | Diagnostic Imaging | | | | 2017 | Pass | Services at [facility] | | | | | | [address] | | | | | | Marla Abdul Mailcode: | | | | | | [address] | | | | | | [facility] | | | | | | [place], [place] | | | | | | [address] | | | | | | [phone] | | | +--------+ + + + [...]
--- OUTSIDE RECORDS SUMMARY | ~2019-06-26 | XMS | Encounter Summary ---
Demographics + + + | Address | [address] | | | [place] [address] | + + + | Home Phone [...] Team Providers + +------+ + | Care Concrete Mixing Plant Superintendent Name | Role | Phone | [...] | 2018 | Pass | Services at [facility] | | | | | | [address] | | | | | | Marla Abdul Mailcode: | | | | | | [address] | | | | | | [facility] | | | | | | [place], [place] | | | | | | [address] | | | | | | [phone] | | | +--------+ + + + [...]
--- OUTSIDE RECORDS SUMMARY | ~2019-06-26 | XMS | Encounter Summary ---
Demographics + + + | Address | [address] | | | [place] [address] | + + + | Home Phone [...] Team Providers + +------+ + | Care Manager Massage Department Name | Role | Phone | + [...] | Event | [address] | [address] | | | | | [facility] | [address] | | | | | Hospital Admitting | [place], [place] | | | | | Desk Located on the | [address] | | | | | 9th floor | [phone] | | | | | [place], [place] | | | | | | [address] | | | +--------+ + + + [...] Incision | Forced air warmer connected to american board certified orthotist recommended warming | | | 9 | [...] g; 07/09/18; | Sasha Che RN | eDann Michael RN | | IV | 2135; Per patient/family request | | | | | (painful) | | | +--------+ + + + | ETT | 07/08/18; 0859 (created via | 07/08/18 0859 by | 07/08/18 1304 by | | | procedure documentation); | Jorge Kumar, | Jorge Kumar, | | | Endotracheal Tube; 7; Oral; | NETWORK ASSOCIATE | NETWORK ASSOCIATE | | | Cuffed; 07/08/18; 1304 | | | +--------+ + + + | Periph | 07/08/18; 0905; Jorge Kumar, | 07/08/18 0905 by | 07/11/18 1144 by | | eral | NETWORK ASSOCIATE; Right; Dorsal; Hand; 16 g; | Jorge Kumar, | Carmen Saul RN | | IV | No; No; Positive; 07/11/18; 1144 | NETWORK ASSOCIATE | | +--------+ + + + | Periph | 07/08/18; 905; Hermann Lanza, | 07/08/18905 by | 07/09/18 0600 by | | berenice | MD; Left; Hand; 18 g; No; No; | Jorge Stacy, | Brittnee Oscar RN | | IV | Positive; 07/09/18; 0600; Per | NETWORK ASSOCIATE | | | | patient/family request | [...]
--- OUTSIDE RECORDS SUMMARY | ~2019-06-26 | XMS | Encounter Summary ---
Demographics + + + | Address | [address] | | | [place] [address] | + + + | Home Phone [...] Team Providers + +------+ + | Care Press Bucker Name | Role | Phone | + [...] | | | | | | [facility] | | | | | | Hospital Admitting | | | | | | Desk Located on the | | | | | | 9th floor | | | | | | [place], [place] | | | | | | [address] | | | +--------+ + + + [...]
--- OUTSIDE RECORDS SUMMARY | ~2019-06-26 | XMS | Encounter Summary ---
Demographics + + + | Address | [address] | | | [place] [address] | + + + | Home Phone [...] Team Providers + +------+ + | Care Solutions Delivery Consultant Name | Role | Phone | [...] | Other | | 2018 | | [facility] [address] | [address] | | | | | Avarmando Mailcode: CH8N | [place], [place] | | | | | [facility] | [address] | | | | | and Healing, | [phone] | | | | | [facility] | | | | | | Floor [place], [place] | | | | | | [address] | | | | | | [phone] | | | +--------+ + + + [...]
--- OUTSIDE RECORDS SUMMARY | ~2019-06-26 | XMS | Encounter Summary ---
Demographics + + + | Address | [address] | | | [place] [address] | + + + | Home Phone [...] Team Providers + +------+ + | Care Voyage Management System Operator Name | Role | Phone | [...] | Post-discharge | | 2015 | | [facility] [address] | [address] | follow-up (s/p | | | | Ave Mailcode: CH8N | [place], [place] | admission 05/12/15 - | | | | [facility] | [address] | 05/20/15: T6-T7 | | | | and Healing, | [phone] | laminectomy for | | | | | | resection of tumor) | | | | Floor [place], [place] | | | | | | [address] | | | | | | [phone] | | | +--------+ + + + [...]
--- OUTSIDE RECORDS SUMMARY | ~2019-06-26 | XMS | Encounter Summary ---
Demographics + + + | Address | [address] | | | [place] [address] | + + + | Home Phone | | + + + | Preferred Language | Unknown | + + + | Marital Status | Single | + + + | Rastafari Affiliation | NON | + + + [...] Team Providers + +------+ + | Care Instructor Of Spanish Name | Role | Phone | + [...] | | spine tumor | [place], | [place], [place] | | | | | Procedures | [place] | [address] | | | | | MRI SPINE | [address] | Phone: | | | | | THORACIC WWO | Phone: | [phone] | | | | | CONTRAST | [phone] | Fax: | | | | | [place] MRI, | Fax: | [phone] | | | | | DORSAL SPINE | [phone] | | | | | | COMBO [...] | | | Procedures | [place] | [address] | | | | | MRI SPINE | [address] | Phone: | | | | | THORACIC WWO | Phone: | [phone] | | | | | CONTRAST | [phone] | Fax: | | | | | [place] MRI, | Fax: | [phone] | | | | | DORSAL SPINE | [phone] | | | | | | COMBO | | | +--------+--------+ + + + + Encounter Details +--------+ + + + + | Date | Type | Department | Care Team | Description | +--------+ + + + + | 01/16/ | Hospital | Radiology/Imaging | | | | 2015 | Encounter | Lab at [facility] [address] | | | | | | [address] Mailcode: | | | | | | CH3G [facility] | | | | | | Health and Healing, | | | | | | Building [address], 3rd | | | | | | Floor [facility] [place] | | | | | | [address] | | | | | | [phone] | | | +--------+ + + + [...] | | | | nodule at the U5qstyy. | | | | | | 2. [...]
--- OUTSIDE RECORDS SUMMARY | ~2019-06-26 | XMS | Encounter Summary ---
Demographics + + + | Address | [address] | | | [place] [address] | + + + | Home Phone [...] Team Providers + +------+ + | Care Rehab Rn Name | Role | Phone | + +------+ + | Clare Mendoza MD | PCP | | + +------+ + Encounter Details +--------+ + + + + | Date | Type | Department | Care Team | Description | +--------+ + + + + | 01/02/ | Document-Sc | Health Information | Unknown . | | | 2018 | anned | Services [address] | | | | | | [address] | | | | | | Mailcode: OP17Darion | | | | | | [facility] | | | | | | [place], [place] | | | | | | [address] | | | | | | [phone] | | | +--------+ + + + [...]
--- OUTSIDE RECORDS SUMMARY | ~2019-06-26 | XMS | Encounter Summary ---
Demographics + + + | Address | [address] | | | [place] [address] | + + + | Home Phone [...] Team Providers + +------+ + | Care Egg Caser Name | Role | Phone | + +------+ + | Clare Mendoza MD | PCP | | + +------+ + Encounter Details +--------+ + + + + | Date | Type | Department | Care Team | Description | +--------+ + + + + | 01/28/ | Document-Sc | Health Information | Unknown . | | | 2017 | anned | Services [address] | | | | | | [address] | | | | | | Mailcode: [address] | | | | | | [facility] | | | | | | [place], [place] | | | | | | [address] | | | | | | [phone] | | | +--------+ + + + [...]
--- OUTSIDE RECORDS SUMMARY | ~2019-06-26 | XMS | Encounter Summary ---
Demographics + + + | Address | [address] | | | [place] [address] | + + + | Home Phone [...] Team Providers + +------+ + | Care Treater Name | Role | Phone | + [...] Hospital [facility] | | | | | [place], [place] | [place] | | | | | [address] | [address] | | | | | [phone] | | | +--------+ + + + [...]
--- OUTSIDE RECORDS SUMMARY | ~2019-06-26 | XMS | Encounter Summary ---
Demographics + + + | Address | [address] | | | [place] [address] | + + + | Home Phone [...] Team Providers + +------+ + | Care Incinerator Plant Supervisor Name | Role | Phone | [...] | | 2014 | anned | Services [address] | [phone] | | | | | [address] | | | | | | Mailcode: OP[address]A | | | | | | [facility] | | | | | | [place], [place] | | | | | | [address] | | | | | | [phone] | | | +--------+ + + + [...]
--- OUTSIDE RECORDS SUMMARY | ~2019-06-26 | XMS | Encounter Summary ---
Demographics + + + | Address | [address] | | | [place] [address] | + + + | Home Phone [...] Team Providers + +------+ + | Care Grazing Aide Name | Role | Phone | [...] | 2017 | Pass | Services at [facility] | | | | | | [address] | | | | | | Marla Abdul Mailcode: | | | | | | [address] | | | | | | [facility] | | | | | | [place], [place] | | | | | | [address] | | | | | | [phone] | | | +--------+ + + + [...]
--- OUTSIDE RECORDS SUMMARY | ~2019-06-26 | XMS | Encounter Summary ---
Demographics + + + | Address | [address] | | | [place] [address] | + + + | Home Phone [...] Team Providers + +------+ + | Care Caustics Loader Name | Role | Phone | + [...] | | | Ave Mailcode: [id number] | [place], [place] | | | | | [facility] | [address] | | | | | and Healing, | [phone] | | | | | | | | | | | Floor [place], [place] | | | | | | [address] | | | | | | [phone] | | | +--------+ + + + [...]
--- OUTSIDE RECORDS SUMMARY | ~2019-06-26 | XMS | Encounter Summary ---
Demographics + + + | Address | [address] | | | [place] [address] | + + + | Home Phone [...] Team Providers + +------+ + | Care Machine Biller Name | Role | Phone | + +------+ + | Tiff ChapinP | PCP | | + +------+ + Encounter Details +--------+ + + + + | Date | Type | Department | Care Team | Description | +--------+ + + + + | 05/18/ | Documentati | Neurosurgery at | Raegan Doss, | | | 2014 | on | [facility] [address] | PHILIPPE-C [address] | | | | | Shwetha Mailcode: CH8N | Ave [place], [place] | | | | | [facility] | [address] | | | | | and [place], | [phone] | | | | | [facility] | | | | | | Floor [place], [place] | | | | | | [address] | | | | | | [phone] | | | +--------+ + + + [...]
--- OUTSIDE RECORDS SUMMARY | ~2019-06-26 | XMS | Encounter Summary ---
Demographics + + + | Address | [address] | | | [place] [address] | + + + | Home Phone [...] Team Providers + +------+ + | Care Hydro Pneumatic Tester Name | Role | Phone | [...] | | | Procedures | [place] | [address] | | | | | MRI SPINE | [address] | Phone: | | | | | THORACIC WWO | Phone: | [phone] | | | | | CONTRAST | [phone] | Fax: | | | | | [place] MRI, | Fax: | [phone] | | | | | DORSAL SPINE | [phone] | | | | | | COMBO [...] | | | | spinal cord | [place], [place] | [place], [place] | | | | | Procedures | [address] | [address] | | | | | REQUEST TO | Phone: | Phone: | | | | | SURGERY | [phone] | [phone] | | | | | BACKER UP | Fax: | Fax: | | | | | [place] BX/EXCIS | [phone] | [phone] | | | | | SPIN | | | | | | | MARCELINOAMANDAIN | | | | | | | [place] | | | | | | [...] (Primary | | 2016 | Visit | [facility] [address] | PA-C [address] | Dx); Spinal cord | | | | Ave Mailcode: CH8N | [place], [place] | tumor; Thoracic | | | | [place] [facility] | [address] | spine tumor | | | | and Healing, | [phone] | | | | | [facility] | | | | | | Floor [place], [place] | | | | | | [address] | | | | | | [phone] | | | +--------+---------+ + + + [...] (WHO grade I) - pathology reviewed at [facility]. Following surgery, the patient was discharge to [facility] for continued intense rehabilitation. She dischar ge [...] intact at 2+. Motor: Delt Tri Bi Kinesiologist HF KE KF APF ADF Left 5 [...] result of consultation with Dany Peoples of [facility]. Please see below. A. Intramedullary spinal [...] long hx of dysuria symptoms NEUROSURGERY AT [facility] [address] Mailcode: [place] [address] documented in this encounter Plan [...] | | | | nodule at the O4jiprd. | | | | | | 2. [...] | + + + + + | [facility] | [address] | [place] [address] | | | SERVICES, CORE | PARK [...] + + | [facility] | [address] | [place] [address] | | | SERVICES, CORE | JEAN [...] + + + + + | [facility] | [address] | [place] [address] | | | SERVICES, CORE | PARK [...]
--- OUTSIDE RECORDS SUMMARY | ~2019-06-26 | XMS | Encounter Summary ---
Demographics + + + | Address | [address] | | | [place] [address] | + + + | Home Phone [...] Team Providers + +------+ + | Care Rotary Dump Operator Name | Role | Phone | + +------+ + | Clare Mendoza MD | PCP | | + +------+ + Encounter Details +--------+ + + + + | Date | Type | Department | Care Team | Description | +--------+ + + + + | 01/28/ | Document-Sc | Health Information | Unknown . | | | 2017 | anned | Services [address] | | | | | [address] | | | | | | Mailcode: OP17Darion | | | | | | [facility] | | | | | | [place], [place] | | | | | | [address] | | | | | | [phone] | | | +--------+ + + + [...]
--- OUTSIDE RECORDS SUMMARY | ~2019-06-26 | XMS | Encounter Summary ---
Demographics + + + | Address | [address] | | | [place] [address] | + + + | Home Phone [...] Team Providers + +------+ + | Care Candy Department Manager Name | Role | Phone | [...] [address] | | | | | CONTRAST [place] | [address] | [place] | | | | | MRI, LUMBAR | Phone: | Research | | | | | SPINE COMBO | [phone] | Center | | | | | | Fax: | [place], [place] | | | | | | [phone] | [address] | | | | | | | Phone: | | | | | | | [phone] | | | | | | | Fax: | | | | | | | [phone] | +--------+--------+ + + + + Reason [...] [address] | | | | | [place] | [address] | [place] | | | | | MRI, LUMBAR | Phone: | Research | | | | | SPINE COMBO | [phone] | Center | | | | | | Fax: | [place], [place] | | | | | | [phone] | [address] | | | | | | | Phone: | | | | | | | [phone] | | | | | | | Fax: | | | | | | | [phone] | +--------+--------+ + + + + Encounter Details +--------+ + + + + | Date | Type | Department | Care Team | Description | +--------+ + + + + | 11/29/ | Hospital | Radiology/Imaging | Raegan Doss, | | | 2018 | Encounter | Lab at [facility] [address] | PA-C [address] | | | | | [address] Mailcode: | Ave [facility], [place] | | | | | [address] | [address] | | | | | Health and Healing, | [phone] | | | | | [facility] , 3rd | | | | | | Floor [place], [place] | | | | | | [address] | | | | | | [phone] | | | +--------+ + + + [...] | | | | | dose, [facility] 11/29/17 at 1845 | | | | | | + +---------+ +-------+------+------+ +---+---+ | | | +---+---+ documented in this encounter"
--- OUTSIDE RECORDS SUMMARY | ~2019-06-26 | XMS | Encounter Summary ---
Demographics + + + | Address | [address] | | | [place] [address] | + + + | Home Phone [...] Team Providers + +------+ + | Care Math Specialist Name | Role | Phone | + +------+ + | Clare Mendoza MD | PCP | | + +------+ + Encounter Details +--------+ + + + + | Date | Type | Department | Care Team | Description | +--------+ + + + + | 02/14/ | Entry Level Management | Spine Center at | Raegan Doss, | | | 2017 | | [facility] [address] | PA-C [address] | | | | | Shwetha Mailcode: | [place], [place] | | | | | [facility] | [address] | | | | | and [place], | [phone] | | | | | [place] [address] | | | | | | [place], [place] | | | | | | [address] | | | | | | [phone] | | | +--------+ + + + [...]
--- OUTSIDE RECORDS SUMMARY | ~2019-06-26 | XMS | Encounter Summary ---
Demographics + + + | Address | [address] | | | [place] [address] | + + + | Home Phone [...] Team Providers + +------+ + | Care Yarn Salvager Name | Role | Phone | + [...] + + | 05/07/ | Hospital | [facility] [address] | Christine Gilbert MD | | | 2014 - | Encounter | [address] | [address] | | | | | [id number] [facility] | [facility] | | | 05/08/ | | HOSPITAL [place], | [place], [place] | | | 2015 | | [place] [address] | [address] | | | | | [phone] | | | | | | | | | | | | Rajinder Luis MD | | | | | | [address] | | | | | | [place], [place] | | | | | | [address] | | | | | | [phone] | | | | | | | [...] Rajinder Luis MD PCP: PATRIC Todd Service: [facility] Neurosurgery Diagnoses Principal Final Diagnosis: Tumor of [...] Instructions/Tests: Please call the Neurosurgery clinic at [phone] with any questions Sunday to Sunday 8 A M - 4 PM. After hours, call [facility] at [phone] and ask to speak with the Neurosurgery resi dent circulation tender if you have any of the following: [...] RLE symptoms for 1.5 years, referred to [facility] ER by Dr Garrison at [place] for MRI finding of intramedullary th oracic [...] left, toes downgoing on left, toes m [place] to plantar stim on right Labs: Lab [...] RLE symptoms for 1.5 years, referred to [facility] ER by Dr Garrison at [place] for MRI finding of intramedullary th oracic [...] Luis next week. Signed: Chirag Thorne MD, wind energy mechanic Neurological Surgery [facility] [place] Pager: [phone] Jay Emmanuel MD - 05/08/2015 5:31 PM [...] Jay Still MD PGY-2 Neurological Surgery Pager [phone] documented in this enco unter Plan of [...] | | + +---------+ + + | [facility] DEPARTMENT OF | | | | | [...] | | | | | T2 and Q5lhotwdjog body | | | | | | [...] [facility] | [address] | [place] [address] | | | SERVICES, CORE | PARK [...] LABORATORY | [address] | [place] [address] | | | SERVICES, CORE | PARK [...] | | | LABORATORY | | | URUGUAYAN | | | SERVICES, | | | [...] the MDRD equation recommended by the | [facility] | | National Kidney Disease [...] | + + + + + | [facility] | [address] | [place] [address] | | | NINO LEONARD | [address] | | | + + + + + PRODUCT - PLATELET PHERESIS LEUKOREDUCED (05/08/2015 2:08 AM PDT) + + + + + + | Component | Value | Ref Range | Performed | Pathologist | | | | | At | Signature | + + + + + + | PRODUCT | [id number] | | [facility] | | | DESCRIPTION | | | DEPARTMENT | | | | | | OF | | | | | | PATHOLOGY | | + + + + + + | PRODUCT | [id number] | | [facility] | | | UNIT [...] + + + + | EXPIRATION | [id number] | | [facility] | | | DATE [...] + + + + | BLOOD | [id number] | | [facility] | | | PRODUCT [...] OF | [address] | [place] [address] | | | PATHOLOGY | [address] [...] | + + + + + | [facility] | [address] | [place] [address] | | | SERVICES, CORE | JEAN [...] LABORATORY | [address] | [place] [address] | | | SERVICES, | [address] [...] | + + + + + | [facility] | [address] | [place] [address] | | | SERVICES, | [address] [...] | + + + + + | [facility] | [address] | [place] [address] | | | SERVICES, CORE | PARK [...] | + + + + + | [facility] | [address] | [place] [address] | | | SERVICES, CORE | PARK [...] | | | LABORATORY | | | URUGUAYAN | | | SERVICES, | | | [...] | + + + + + | [facility] | [address] | [place] [address] | | | SERVICES, CORE | JEAN [...]
--- OUTSIDE RECORDS SUMMARY | ~2019-06-26 | XMS | Encounter Summary ---
Demographics + + + | Address | [address] | | | [place] [address] | + + + | Home Phone [...] Team Providers + +------+ + | Care Fight Manager Name | Role | Phone | + +------+ + | Clare Mendoza MD | PCP | | + +------+ + Encounter Details +--------+ + + + + | Date | Type | Department | Care Team | Description | +--------+ + + + + | 04/10/ | ED Progress | Epic at [facility] | Anthony Olea NP | ED Progress Note | | 2016 | | [address] | [facility] | | | | Note-Transc | [place], [place] | Hospital [address] | | | | ribed | [address] | Ave [place], [place] | | | | | | [address] | | | | | | | [...]
--- OUTSIDE RECORDS SUMMARY | ~2019-06-26 | XMS | Encounter Summary ---
Demographics + + + | Address | [address] | | | [place] [address] | + + + | Home Phone [...] Team Providers + +------+ + | Care Oceanographic Meteorologist Name | Role | Phone | + [...] | | | | Thoracic | [address] | Ave | | | | | spine tumor | [place], | [place], [place] | | | | | Procedures | [place] | [address] | | | | | MRI SPINE | [address] | Phone: | | | | | THORACIC WWO | Phone: | [phone] | | | | | CONTRAST | [phone] | Fax: | | | | | MD MRI, | Fax: | [phone] | | | | | DORSAL SPINE | [phone] | | | | | | COMBO [...] | | | | spinal cord | [place], [place] | [place], [place] | | | | | Procedures | [address] | [address] | | | | | REQUEST TO | Phone: | Phone: | | | | | SURGERY | [phone] | [phone] | | | | | DIRECTOR BUILDING | Fax: | Fax: | | | | | MD BX/EXCIS | [phone] | [phone] | | | | | SPIN | | | | | | | MARCELINOAMANDAIN | | | | | | | MEDARIELLA MD | | | | | | | [...] (Primary | | 2016 | Visit | [facility] [address] | PA-C [address] | Dx); Spinal cord | | | | Ave Mailcode: CH8N | [place], [place] | tumor; Thoracic | | | | [place] [facility] | [address] | spine tumor | | | | and Healing, | [phone] | | | | | [facility] | | | | | | Floor [place], [place] | | | | | | [address] | | | | | | [phone] | | | +--------+---------+ + + + [...] (WHO grade I) - pathology reviewed at [facility]. Following surgery, the patient was discharge to [place] for continued intense rehabilitation. She dischar ge [...] intact at 2+. Motor: Delt Tri Bi Meter Repairer Helper HF KE KF APF ADF Left 5 [...] result of consultation with Dany Peoples of [facility]. Please see below. A. Intramedullary spinal cord [...] long hx of dysuria symptoms NEUROSURGERY AT [facility] [address] Mailcode: [place] [address] documented in this encounter Plan [...] | | | | nodule at the K3vkaea. | | | | | | 2. [...] | + + + + + | [facility] | [address] | [place] [address] | | | SERVICES, CORE | PARK [...] | + + + + + | [facility] | [address] | [place] [address] | | | SERVICES, CORE | JEAN [...] + + + + + | [facility] | [address] | [place] [address] | | | SERVICES, CORE | PARK [...]
--- OUTSIDE RECORDS SUMMARY | ~2019-06-26 | XMS | Encounter Summary ---
Demographics + + + | Address | [address] | | | [place] [address] | + + + | Home Phone [...] Providers + +------+ + | [employer] Sales Consultant Name | Role | Phone | [...] | 2015 | | [address] [place] | [address] | AND | | | | [facility] | [place], [place] | | | | | Hospital Admitting | [address] | | | | | Desk Located on the | [phone] | | | | | 9th floor | | | | | | [place], [place] | | | | | | [address] | | | +--------+---------+ + + + [...] + documented in this encounter Discharge Summaries Raegna Doss PA-C - 05/20/2015 7:50 AM PSTFormatting of this note might be different f rom the original. NEUROSURGERY DISCHARGE SUMMARY: Patient: Matt Fagan Admission Date: 05/12/2015 Discharge Date: 05/20/2015 Attending Physician: Rajinder Luis MD PCP: PATRIC Todd Service: [facility] Neurosurgery Diagnoses Principal Final Diagnosis: Intramedullary [...] patient was felt appropriate for discharge to [facility] ([facility], [facility]) on 05/20/2015, and the patient and/or family [...] completed No Destination: Destination: Inpatient Rehab - [facility] Condition on Discharge Good Discharge Follow Up - Facility MD to follow Facility MD to follow patient. FOLLOW-UP You have a wound check appointment with Raegan Doss PA-C at 11:30am on 05/31. This will be on the 8th floor at the [facility] on the [facility] located at [address] [place] [address]. Please call [phone] if you have any questions or conc erns before your appointment time. If you are still admitted to [facility] at this time, it is okay to cancel this appointment as thais costa as a provider at that facility can examine your incision. Please then make an appointmen t with Raegan Doss for 1 month following your discharge from [facility]. PCP:PATRIC Todd When: Please follow-up with your [...] 0500) Discharge Patient To: Interhospital Transfer - [facility] Does patient have a planned readmission: No Discharge Summary Completed?: Yes. 05/20/2015 Discharging Provider: Raegan Doss PA-C Date Completed: 05/20/2015 Time Completed: 7:50 AM Discharging Attending: Rajinder Luis MD [facility] [address] [address] [place] [address] documented in this encounter Progress Notes Raegan [...] al sides of foot. Motor: Tri Bi Transfer Table Operator HF KE APF ADF Left 5 [...] BLE duplex neg for DVT. Dispo: To [facility] ([facility]) today. Raegan Doss PA-C [facility] [address] [place] [address] Drive [facility] [address] dams, PHILIPPE Mena - 05/19/2015 6:52 AM PST Neurosurgery Progress Note Hospital Day:7 Author; Raegan Doss PA-C Attending Physician: Rajinder Lusi MD Interval Hx: -Pt denies having any [...] Intake/Output Summary (Last 24 hours) at 05/19/15 0601 Last data filed at 05/19/15 033 Gross [...] rest of the LLE. Motor: Tri Bi Transfer Table Operator HF KE APF ADF Left 5 [...] CM for IPR placement. Raegan Doss PA-C [facility] [address] [address] [place] [address] dams, PHILIPPE Mena - 05/18/2015 6:52 AM [...] Delivery Device: None (room ai r) (05/18/15 0559) 24 Hour Vital Min/Max: Systolic (24hrs), Av [...] intact at pre-op baseline. Motor: Bi Tri Transfer Table Operator HF KE APF ADF Left 5 [...] CM for IPR placement. Raegan Doss PA-C [facility] [address] [address]/[place] [address] dams, PHILIPPE Mena - 05/17/2015 8:48 AM [...] at pre-op baseline. Motor: Delt Tri Bi Transfer Table Operator HF KE APF ADF Left 5 [...] CM for IPR placement. Raegan Doss PA-C [address] [id number] [address]/[place] [address] Cesar Cox MD - 02/2015 9:39 AM [...] 05/14/2015 ICU Attending: MD Sarina Admit Service: [facility] ICU Day # 2 POD # 1 HPI: Matt Fagan is a 24 y.o. 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 She reports that her RLE numbness has worsened si mee neurosurgery last saw her. She also endorses [...] information of next of kin: Judit mother [phone] Disposition: Acute care Code: Full This patient has been staffed with Lesly Branch MD , attending physician, who agrees with the above assessment and plan. [facility] DEPARTMENT: [id number] ICU NEURO Place of Service:- Inpatient Date of Service: 05/14/2015 CSN: [id number] Lab Results Component Value Date WBC 23.58 [...] and check patient later Yokasta Randall PGY2 [id number] [facility] Lesly Lang MD - 8:25 AM [facility] Author: Lesly Branch MD Briefly, [...] due to CSF hai k, cord injury, OR, UTI, acute blood loss anemia, DVT 1. [...] DVT proph with SCDs. Lesly Branch M.D. [employer] Application Developer, Neurology and Emergency Medicine I spent 20 minutes in direct care of this patient with over 50% spent at the patient s b eside, reviewing data, discussing the patient s care with other medical staff, charting, a nd discussion with treatment decision maker. [facility] DEPARTMENT: [id number] CRITICAL CARE Place of Service: Inpatient Date of Service: 05/14/2015 [facility]: [id number] Suggested Level of Care: 58209 - SUBSEQUENT HOSPITAL CARE,LEVEL III impson, Polly [...] the or iginal. NSICU Neuroscience ICU Attending Food Checkers And Cashiers Supervisor Note I have seen and evaluated Matt [...] and coordination of care Cathy Cespedes MD,PhD [facility] DEPARTMENT: [id number] ICU NEURO Place of Service:- Inpatient Date of Service: 05/13/2015 CSN: [id number] Suggested Modifier: Resident involved Suggested CPT: TO PERINATAL COORDINATOR Gilbert Collins MD,MPH - 05/13/2015 8:49 PM [...] and entire foot. Motor: Tri Bi WE Transfer Table Operator HF KE APF ADF Left 5 [...] dilaudid available prn pain Raegan Doss PA-C [facility] [address] [place] [address] Polly Collins MD,MPH - 05/12/2015 7:33 PM [...] Attending | | Surgeon: Rajinder Luis MD Junior Media Buyer(s): Jere Story MD | | Preoperative Diagnosis: [...] | endotracheal anesthesia was induced on the [facility]. Occlusive dressings were | | placed [...] turned back supine on | | the [facility]. She was extubated and she was taken to the recovery area in stable | | condition. At the end of the case, all instrument, sponge, and needle counts were | | correct in 2 iterations. I, Rajinder Luis MD was scrubbed and actively participated | | performing the critical portions of the operation.ZAMZAM Henry/CESARD: | | 05/15/2015 08:21:01DT: 05/15/2015 08:59:43Job #: [id number] | | | |Rajinder Luis MD | |EZEKIEL/SHANNAN | | | | | | /[id number] | + + MAGNESIUM, PLASMA (05/17/2015 10:09 [...] LABORATORY | [address] | [place] [address] | | | SERVICES, CORE | JEAN [...] LABORATORY | [address] | [place] [address] | | | SERVICES, CORE | PARK [...] | | | LABORATORY | | | QATARI | | | SERVICES, | | | [...] | + + + + + | [facility] | [address] | [place] [address] | | | NINO LEONARD | JEAN [...] | | | | | baldemar / OKREY | | | | | | HERON [...] LABORATORY | [address] | [place] [address] | | | SERVICES, CORE | PARK [...] | | | LABORATORY | | | QATARI | | | SERVICES, | | | [...] | [facility] | [address] | [place] [address] | | | SERVICES, NINO | JEAN [...] [facility] | [address] | [place] [address] | | | SERVICES, CORE | PARK [...] | + + + + + | [facility] | [address] | [place] [address] | | | SERVICES, NINO | PARK [...] | | | LABORATORY | | | QATARI | | | SERVICES, | | | [...] | + + + + + | [facility] | [address] | [place] [address] | | | SERVICES, CORE | PARK [...] LABORATORY | [address] | [place] [address] | | | SERVICES, CORE | PARK [...] [place] LABORATORY | [address] | [place] [address] | | | SERVICES, CORE | PARK [...] | | | LABORATORY | | | QATARI | | | SERVICES, | | | [...] | + + + + + | [facility] | [address] | [place] [address] | | | NINO LEONARD | PARK [...] LABORATORY | [address] | [place] [address] | | | HORACIO, CORE | JEAN [...] | | | LABORATORY | | | QATARI | | | SERVICES, | | | [...] | + + + + + | [facility] | [address] | [place] [address] | | | SERVICES, CORE | [address] | | | + + + + + INTRAOPERATIVE NEURO MONITORING (05/13/2015) + + + | Narrative | Performed At | + + + | Patient Name: Matt Fagan Date of : 1990 | | | Date of Test: 05/13/2015 Place of | | | Service: IP Intra Op (82) [id number] INTRAOPERATIVE NEURO | | | MONITORING History: [...] min(s), with modifier GY | | | 17430 - Short Latency EP's Upper AND Lower extremities 60048 - | | | Central Motor EP's [...] A IDH1 & IDH2 MUTATION | | [facility] | | | MUTATION | ANALYSISSpecimen [...] 2008 | | | | | | 15(19):2089-72. | | | | | | Edison H, et al. IDH1 and | | | | | | IDH2 mutations in | | | | | | gliomas. N Engl J Med. | | | | | | 2008Feb | | | | | | (8):254-775.3. | | | | | | Lewis [...] 2008 | | | | | | 6812):7005-254. | | | | | | Rogelio [...] | | | | | determined by [facility] | | | | | | [facility] | | | | | Laboratories; CLIA # | | | | | | [id number]. It has not | | | | [...] | [facility] | [address], | [place] [address] | | | DIAGNOSTIC | [address] [...] (7q34)break-apart/ | | | | | | [id number] probe set. 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 Jessica CM, | | | | | | Cheo SR, Shelton | | | | | | FJ, Jena JS, Lopez Keys BE, | | | | | | Sedebbie AR,Dl GUS, | | | | | | Chuckie SLACKLINE OPERATOR, Warren C. | | | | | [...] | | | | | | [place] WA, Michele C, | | | | | | Taran, Luis Alberto DH. 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 | | | | | | Proc Natl Acad Sci U S | | | | | | A. 2011 May | | | | | | 109(22):7206-27. | | | | | | Dyson-Zo D, Artemio Q, | | | | | | Ta K, Vena N, | | | | | | Sohail GNUYEN, Catarino | | | | | | ,Shalonda TT, Zach | | | | | | KL, Iafrate AJ, Zach | | | | | | AH, Jennifer DN, Santagata | | | | | | S. [id number] mutations | | | | | | are common in | | | | | | pleomorphic | | | | | | xanthoastrocytoma: | | | | | | diagnostic | | | | | | andtherapeutic | | | | | | implications. PLoS One. | | | | | | 2010 Mar | | | | | | 29;6(3):z61578.5. | | | | | | April [...] | | | | | determined by [facility] | | | | | | [facility] | | | | | | Laboratories; CLIA # | | | | | | [id number]. It has not | | | | [...] + + + + | [facility] | [address] | [place] [address] | | | DIAGNOSTIC | [address] [...] of | | | | | | [facility] | | | | | | University. [...] into | | | | | | ATOMIC FUEL ASSEMBLER tissue. Tumor cells | | | | [...] block | | | | | | T5Imjnxblazobxmkxcchfg | | | | | | stains: see IHC | | | | | | tableNo Electron | | | | | | microscopy | | | | | | performedMolecular | | | | | | genetic studies | | | | | | performedOther Molecular | | | | | | Studies: PCR for BRAF | | | | | | [id number] for BRAF | | | | | [...] | | | | | | Block X2Dozxpxxqft: | | | | | | Tumor cells | | | | | | Marker Result | | | | | | CommentGlial | | | | | | Fibrillary Acidic | | | | | | Protein | | | | | | PositiveVimentin | | | | | | PositiveOlig 2 | | | | | | ZqqvoeskEU65 % | | | | | | Positive less than | | | | | | 5%PhosphoHistone 3, | | | | | | mitotic marker | | | | | | NegativeEpithelial | | | | | | Membrane Antigen | | | | | | NegativeATRX(ATOMIC FUEL ASSEMBLER and | | | | | | [...] PositiveChromogranin | | | | | | AqlikyjpEG24 (HPCA-1) | | | | | | [...] [facility] | [address] | [place] [address] | | | PATHOLOGY | [address] [...] [facility] | [address] | [place] [address] | | | SERVICES, | [address] [...] LABORATORY | [address] | [place] [address] | | | SERVICES, | [address] [...] | + + + + + | [facility] | [address] | [place] [address] | | | SERVICES, NINO | JEAN [...] | + + + + + | [facility] | [address] | [place] [address] | | | SERVICES, CORE | JEAN [...] | | | LABORATORY | | | QATARI | | | SERVICES, | | | [...] [facility] | [address] | [place] [address] | | | SERVICES, CORE | PARK [...] [facility] | [address] | [place] [address] | | | SERVICES, CORE | PARK [...] | + + + + + | [facility] | [address] | [place] [address] | | | HORACIO, NINO | JEAN [...]
--- OUTSIDE RECORDS SUMMARY | ~2019-06-26 | XMS | Encounter Summary ---
Demographics + + + | Address | [address] | | | [place] [address] | + + + | Home Phone | | + + + | Preferred Language | Unknown | + + + | Marital Status | Single | + + + | Advent Affiliation | NON | + + + [...] Providers + +------+ + | Care Hand Cutter Name | Role | Phone | [...] [address] | MD [address] | | | | | [place] | [place], | | | | | [address] | [place] [address] | | | | | | [phone] | | | | | | | [...] | RESULT | QIA[place] MODI | | [facility] | | | | | | | | | | | | | | | | | | | | | | | | | | | | Routine Cultures | | | | | | PROCEDURE: | | | | | | Strep Screen | | | | | | Culture [[id number]: | | | | | | | [...] | | | | | | | [id number] SITE: | | | | | | [...] | | | | | [facility] | | | | + + + + + + + + | Specimen | + + | | + + + + + + + | Performing | Address | City/State/Zipcode | Phone Number | | Organization | | | | + + + + + | [facility] | [address] | [place] [address] | | | LAB | | | [...] | CULTURE | [place] MODI | | [facility] | | | | | [...] | | | | | | | [phone] SITE: | | | | | | [...] | | | | | [facility] | | | | + + + + + + + + | Specimen | + + | | + + + + + + + | Performing | Address | City/State/Zipcode | Phone Number | | Organization | | | | + + + + + | [facility] | [address] | [place] [address] | | | LAB | | | [...] [facility] | [address] | [place] [address] | | | LAB | | | [...] PROBE | Performed by [facility] | | [facility] | | | | [facility], | | | | | | | | | | | | [address], | | | | | | [place] [address] | | | | | | [phone] | | | | | | | | | | | | [email or web address], Anthony | | | | | | [...] [facility] | [address] | [place] [address] | | | LAB | | | [...] B: | | | | | | Familiar/CSINTERPRETI | | | | | | VE [...] by | | | | | | [facility], | | | | | | | | | | | | [address] | | | | | | [place] [address] | | | | | | [phone] | | | | | | | | | | | | [email or web address] | | | | | | MD [...] [facility] | [address] | [place] [address] | | | LAB | | | | + + + + + documented in this encounter Visit Diagnoses Not on filedocumented in this encounter"
--- OUTSIDE RECORDS SUMMARY | ~2019-06-26 | XMS | Encounter Summary ---
Demographics + + + | Address | [address] | | | [place] [address] | + + + | Home Phone [...] + + + | Author | [facility] | + + + | Organization | [facility] | + + + | [...] Providers + +------+ + | Care Nail Mill Worker Name | Role | Phone | [...] | LAMINECTOMIES | | | | [facility] | [place], [place] | | | | | Hospital Admitting | [address] | | | | | Desk Located on the | [phone] | | | | | 9th floor | | | | | | [place], [place] | | | | | | [address] | | | +--------+---------+ + + + [...] Rajinder Luis MD PCP: PATRIC Todd Service: [facility] Neurosurgery Diagnoses Principal Final [...] tumor, who [facility] after she woke up with lower extremity weakness and urinary incontinence. 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 Luis here at [facility]. She has residual right [...] was felt appropriate for discharge to [facility] ([facility]) on 09/15/2015, a nd the patient and/or [...] on the 8t h floor at the [facility] on the [facility] located at [address] [place] [address]. Please call [phone] if you have any questions or concerns [...] 11:40 AM Discharging Attending: Rajinder Luis MD [facility] [address]K [address] [place] [address] documented in this encounter Progress Notes Raegan [...] Thoracic incision: flat, dry, no erythema, intact. South Carver present. Sensation: LT sensation intact intact above [...] 2324 09/14/15 1028 GLU 102* 136* 104* [id number] Current Medications: acetaminophen (TYLENOL) tablet 650 mg, [...] Routine wound care. Okay to shower/shampoo daily. South Carver to be removed at 2 weeks post-op. [...] they have bed availability. Raegan Doss PA-C [facility] [address] [address] [address] dams, PHILIPPE Mena - 09/14/2015 8:57 AM [...] edges approximated well, no erythema, dry, intact. South Carver in place. Sensation: LT sensation intact above [...] Ref Range Status 07/12/2015 Negative Negative Final [id number] Current Medications: acetaminophen (TYLENOL) tablet 650 mg, [...] Appreciate CM involvement - application pending for [facility]. Raegan Doss PA-C [facility] [address] [address] [address] dams, PHILIPPE Mena - 09/13/2015 10:26 AM [...] in place, draining clear yellow urine. Labs: [id number] Current Medications: acetaminophen (TYLENOL) tablet 650 mg, [...] Routine wound care. Okay to shower/shampoo daily. South Carver to be removed at 2 weeks post-op. [...] ect. Will plan to stop ISS at [place]. ID/Heme: Afebrile. Will check CBC tomorrow AM. DVT ppx: SCDs while in bed. Lovenox 40mg qHS for DVT ppx. Dispo: Appreciate CM involvement - application pending for [facility]. Raegan Doss PA-C [facility] 10P [address] [address] [place] [address] Cesar Cox MD - 12/2015 11:40 AM [...] Care Unit Attending Progress Note Attending Pager #[phone] ICU Admission Reason Most Recent Value ICU [...] tions/additions as noted. Date of Service: 09/11/2015 [facility] DEPARTMENT: ANE ICU NEURO Place of Service:- Inpatient CSN: [id number] Suggested Modifier: GC - Resident Involved Suggested CPT: TO CONSUMER LENDER DOS 09/11/2015 Author:Lesly Branch MD [id number] [place] [address] [facility], Yokasta Fleming MD - 8:28 AM PST [...] c/d/i. No surrounding erythema, swelling or drainage. South Car[place] in place Endorses T12 sensory level Labs: [...] - blackburn status Please page adult resident java developer consultant [phone] with questions Yokasta Randall MD PGY-2, Neurosurgery [...] Care Unit Attending Progress Note Attending Pager #[phone] ICU Admission Reason Most Recent Value ICU [...] on counseling and coordination of care.Seen with PA/CHIEF LIBRARIAN CIRCULATION DEPARTMENT Mannie. Please see t heir note for details. I reviewed the documented findings, all data and the recent imaging a parisailable. Date of Service: 09/10/2015 [facility] DEPARTMENT: ANE ICU NEURO Place of Service:- Inpatient CSN: [id number] Suggested Modifier: GC - Resident Involved Suggested CPT: TO CONSUMER LENDER DOS 09/10/2015 Author:Stephie Anders MD [address] [address] Tristen Hein ACN P - 09/10/2015 7:10 AM PST . Neuroscience Intensive Care Unit Team Progress Note NSICU ASSIGNED #[id number] ICU Admission Reason Most Recent Value ICU [...] e. Date of Service: 09/10/2015 AIXA Mahajan [facility] DEPARTMENT: [facility] ICU NEURO Place of Service:- Inpatient CSN: [id number] Suggested Modifier: None Suggested CPT: TO CONSUMER LENDER DOS 09/10/2015 Author:AIXA Mahajan [address] [address] [facility] - 09/10/2015 2:58 AM [facility] NEUROSURGERY POST OPERATIVE CHECK Author: Filipe [...] bed Filipe Nelson MD Neurosurgery Resident Pager #[phone] documented in this en counter Plan of [...] LABORATORY | [address] | [place] [address] | | | SERVICES, CORE | PARK [...] LABORATORY | [address] | [place] [address] | | | SERVICES, CORE | PARK [...] LABORATORY | [address] | [place] [address] | | | NINO LEONARD | JEAN [...] + + + + | [facility] | [address] | [place] [address] | | | SERVICES, CORE | JEAN [...] MARQUAM | [address] | [place], [place] | | | HILL, POINT OF CARE | [address] | [address] | | | TESTS | | | [...] TILLMAN | [address] | [place] [address] | | | SERVICES, NINO | PARK [...] MARQUAM | [address] | [place], [place] | | | ZELALEM HERRERA OF CARE | [facility] | [address] | | | TESTS | | | [...] (H) | 60 - 99 mg/dL | [facility] - | | | [...] MARQUAM | [address] | [place], [place] | | | JAVIER POINT OF CARE | [address] | [address] | | | TESTS | | | [...] BRAMBILA | [address] | [place], [place] | | | ZELALEM HERRERA OF NURIA | [facility] | [address] | | | TESTS | | | [...] MARQUAM | [address] | [place], [place] | | | ZELALEM HERRERA OF CARE | [facility] | [address] | | | TESTS | | | [...] (H) | 60 - 99 mg/dL | [facility] - | | | [...] MARQUAM | [address] | [place], [place] | | | JAVIER POINT OF [facility] | [address] | [address] | | | TESTS | | | [...] BRAMBILA | [address] | [place], [place] | | | ZELALEM HERRERA OF NURIA | [facility] | [address] | | | TESTS | | | [...] MARQUAM | [address] | [place], [place] | | | ZELALEM HERRERA OF CARE | [address] | [address] | | | TESTS | | | [...] (H) | 60 - 99 mg/dL | [facility] - | | | [...] MARQUAM | [address] | [place], [place] | | | JAVIER POINT OF [facility] | [address] | [address] | | | TESTS | | | [...] BRAMBILA | [address] | [place], [place] | | | ZELALEM HERRERA OF NURIA | [facility] | [address] | | | TESTS | | | [...] MARQUAM | [address] | [place], [place] | | | ZELALEM HERRERA OF NURIA | [facility] | [address] | | | TESTS | | | [...] (H) | 60 - 99 mg/dL | [facility] - | | | [...] MARQUAM | [address] | [place], [place] | | | ZELALEM HERRERA OF [facility] | [address] | [address] | | | TESTS | | | [...] BRAMBILA | [address] | [place], [place] | | | ZELALEM HERRERA OF CARE | [facility] | [address] | | | TESTS | | | [...] MARCEAM | [address] | [place], [place] | | | ZELALEM HERRERA OF NURIA | [facility] | [address] | | | TESTS | | | [...] (H) | 60 - 99 mg/dL | [facility] - | | | [...] + + + | [facility] BRAMBILA | [address] | [place], [place] | | | ZELALEM HERRERA OF [facility] | [address] | [address] | | | TESTS | | | [...] | | + +---------+ + + | [facility] DEPARTMENT OF | | [...] PATTY | [address] | [place], [place] | | | ZELALEM HERRERA OF NURIA | [address] | [address] | | | TESTS | | | | + + + + + OPERATION RECORD (09/10/2015 10:32 AM PST) + + | Transcriptions | + + | Rajinder Luis MD - 09/10/2015 8:47 AM PST Date of Service: 09/09/2015 Attending | | Surgeon: Rajinder Luis MD Marriage Therapist(s): Jere Story MD. | | Preoperative Diagnoses: [...] 2015 by | | Toby here at [facility]. She has residual right [...] General endotracheal anesthesia was induced on the [facility]. | | Occlusive dressings were [...] We | | attempted to use the [employer] ultrasonic aspirator, but the durotomy was fairly [...] carefully transferred | | back to the [facility]. She was [...] | | 09/10/2015 08:01:47DT: 09/10/2015 08:47:03Job #: [id number] | + + PROCEDURE NOTE (09/10/2015 10:25 [...] MARQUAM | [address] | [place], [place] | | | JAVIER POINT OF CARE | [address] | [address] | | | TESTS | | | [...] + + + + | [facility] | [address] | [place] [address] | | | SERVICES, CORE | JEAN [...] | | | LABORATORY | | | KENYAN | | | SERVICES, | | | [...] the MDRD equation recommended by the | [facility] | | National Kidney [...] + + + + | [facility] | [address] | [place] [address] | | | SERVICES, NINO | JEAN [...] | [facility] | [address] [facility] | [place] [address] | | | SERVICES, CORE | PARK [...] + + + + | [facility] | [address] | [place] [address] | | | SERVICES, | [address] [...] [facility] | [address] | [place] [address] | | | SERVICES, | [address] [...] LABORATORY | [address] | [place] [address] | | | SERVICES, CORE | PARK [...] + + + | [facility] | [address] | [place] [address] | | | SERVICES, NINO | JEAN [...] | + + + + + | [facility] | [address] | [place] [address] | | | NINO LEONARD | JEAN [...] | | | LABORATORY | | | KENYAN | | | SERVICES, | | | [...] + + + + | [facility] | [address] | [place] [address] | | | SERVICES, CORE | [address] | | | + + + + + INTRAOPERATIVE NEURO MONITORING (09/09/2015) + + + | Narrative | Performed At | + + + | Patient Name: Matt Fagan Date of : 1990 | | | Date of Test: 09/09/2015 Place of | | | Service: IP Intra Op [id number] INTRAOPERATIVE NEURO | | | MONITORING History: [...] | | Department of Neurology Suggested CPT: 07054 - IOM Remote x 3 | | | hr(s) 12444 - Central Motor EP's Upper AND Lower [...] resectiontumor | | | | | | ([id number]). No high | | | | | [...] | | | | | | Block Q7Yularllijn: | | | | | | Tumor cells | | | | | | Marker Result | | | | | | CommentGlial | | | | | | Fibrillary Acidic | | | | | | Protein | | | | | | PositiveVimentin | | | | | | [id number] % | | | | | | [...] Epic: | | | | | | [id number] = spinal | | | | | [...] | + + + + + | [facility] | [address] | [place] [address] | | | PATHOLOGY | [address] [...]
--- OUTSIDE RECORDS SUMMARY | ~2019-06-26 | XMS | Encounter Summary ---
Demographics + + + | Address | [address] | | | [place] [address] | + + + | Home Phone [...] Team Providers + +------+ + | Care Visual Merchandiser Name | Role | Phone | + +------+ + | Clare Mendoza MD | PCP | | + +------+ + Encounter Details +--------+ + + + + | Date | Type | Department | Care Team | Description | +--------+ + + + + | 12/04/ | Documentati | [facility] at | Raegan Doss, | | | 2018 | on | [facility] [address] | PA-C [address] | | | | | [place] Mailcode: | [place], [place] | | | | | [facility] | [address] | | | | | and Solomon, | [phone] | | | | | [address] [address] | | | | | | [place], [place] | | | | | | [address] | | | | | | [phone] | | | +--------+ + + + [...]
--- OUTSIDE RECORDS SUMMARY | ~2019-06-26 | XMS | Encounter Summary ---
Demographics + + + | Address | [address] | | | [place] [address] | + + + | Home Phone [...] Team Providers + +------+ + | Care Waste Oil Pumper Name | Role | Phone | + [...] [place] | | | | Note-Transc | [place] | [place] | | | | juanito | [address] | [address] | | | | | | | [...]
--- OUTSIDE RECORDS SUMMARY | ~2019-06-26 | XMS | Encounter Summary ---
Demographics + + + | Address | [address] | | | [place] [address] | + + + | Home Phone [...] Team Providers + +------+ + | Care Remote Recruiter Name | Role | Phone | [...] | spinal cord | [place], [place] | [place], [place] | | | | | Procedures | [address] | [address] | | | | | REQUEST TO | Phone: | Phone: | | | | | SURGERY | [phone] | [phone] | | | | | ENTERPRISE ACCOUNT EXECUTIVE | Fax: | Fax: | | | | | DC BX/EXCIS | [phone] | [phone] | | | | | SPIN | | | | | | | MARCELINO,INDUR,IN | | | | | | | MED,[place] | | | | | | | [...] + + + + | 05/10/ | Pharmaceutical Sales Representative | Neurosurgery at | Raegan Doss, | Weakness of right | | 2014 | | [facility] [address] | PA-C [address] | lower extremity | | | | Ave Mailcode: CH8N | Ave [place], [place] | (Primary Dx) | | | | [facility] | [address] | | | | | and Healing, | [phone] | | | | | [facility] | | | | | | Floor [facility] [place] | | | | | | [address] | | | | | | [phone] | | | +--------+ + + + [...]
--- OUTSIDE RECORDS SUMMARY | ~2019-06-26 | XMS | Encounter Summary ---
Demographics + + + | Address | [address] | | | [place] [address] | + + + | Home Phone [...] Team Providers + +------+ + | Care Incendiary Powder Mixer Name | Role | Phone | + [...] | [address] | [place], | | | | | Mailcode: CH6A | [place] [address] | | | | | [place], [place] | | | | | | [address] | | | | | | [phone] | | | +--------+ + + + [...] | + +--------+ + + + | ASSISTANT DISTRICT ATTORNEY CYTOLOGY (PAP) | Routin | 11/13/2016 | | Results for this | | | e | 2:53 PM | | procedure are in the | | | | PDT | | results section. | + +--------+ + + + documented in this encounter Results ASSISTANT DISTRICT ATTORNEY CYTOLOGY (PAP) (11/13/2016 2:53 PM PDT) + + + + + + | Component | Value | Ref Range | Performed | Pathologist | | | | | At | Signature | + + + + + + | ASSISTANT DISTRICT ATTORNEY | Patient:ANAID, | | TUALITY/HIL | | | CYTOLOGY | QIANA MODI | | [facility] | | | | | | | | | | | | | | | | | | | | | | | | | | | | Pathology Reports | | | | | | Accession: | | | | | | [id number] | | | | | | | [...] MD | | | | | | Carbider | | | | | | Cytology [...] [facility] | [address] | [place] [address] | | | LAB | | | | + + + + + | [facility] | [address] | [place] [address] | | | LAB | | | [...] COMBO2 | | | | | | Assay([employer] | | | | | | [...] | | | | | | Mnemonic: [id number] | | | | | | DIAGNOSTICS | | | | | | [facility] [id number] | | | | | | [place] [address], | | | | | | [place] [address]GEUTDTZ Pau | | | | | | [...] [address] | [place] [address] | | | LAB | | | | + + + + + | BRIGITTE[facility]JOSE | [address] | [place] [address] | | | LAB | | | | + + + + + documented in this encounter Visit Diagnoses Not on filedocumented in this encounter"
--- OUTSIDE RECORDS SUMMARY | ~2019-06-26 | XMS | Encounter Summary ---
Demographics + + + | Address | [address] | | | [place] [address] | + + + | Home Phone [...] Providers + +------+ + | Care Software Sales Representative Name | Role | Phone [...] | | spine tumor | [place], | [place], [place] | | | | | Procedures | [place] | [address] | | | | | MRI SPINE | [address] | Phone: | | | | | THORACIC WWO | Phone: | [phone] | | | | | CONTRAST | [phone] | Fax: | | | | | IN MRI, | Fax: | [phone] | | | | | DORSAL SPINE | [phone] | | | | | | COMBO [...] | | | Procedures | [place] | [address] | | | | | MRI SPINE | [address] | Phone: | | | | | THORACIC WWO | Phone: | [phone] | | | | | CONTRAST | [phone] | Fax: | | | | | IN MRI, | Fax: | [phone] | | | | | DORSAL SPINE | [phone] | | | | | | COMBO | | | +--------+--------+ + + + + Encounter Details +--------+ + + + + | Date | Type | Department | Care Team | Description | +--------+ + + + + | 01/16/ | Hospital | Radiology/Imaging | | | | 2015 | Encounter | Lab at [facility] [address] | | | | | | [address] [place] Mailcode: | | | | | | CH3G [facility] | | | | | | Health and Healing, | | | | | | Building [address], 3rd | | | | | | Floor [facility] [place] | | | | | | [address] | | | | | | [phone] | | | +--------+ + + + [...] | | | | nodule at the [id number]. | | | | | | 2. [...]
--- OUTSIDE RECORDS SUMMARY | ~2019-06-26 | XMS | Encounter Summary ---
Demographics + + + | Address | [address] | | | [place] [address] | + + + | Home Phone [...] Team Providers + +------+ + | Care Fluid Pump Operator Name | Role | Phone | [...] | 2017 | Pass | Services at [facility] | | | | | | [address] | | | | | | [place]la Abdul Mailcode: | | | | | | [address] | | | | | | [facility] | | | | | | [place], [place] | | | | | | [address] | | | | | | [phone] | | | +--------+ + + + [...]
--- OUTSIDE RECORDS SUMMARY | ~2019-06-26 | XMS | Encounter Summary ---
Demographics + + + | Address | [address] | | | [place] [address] | + + + | Home Phone | | + + + | Preferred Language | Unknown | + + + | Marital Status | Single | + + + | Presybeterian Affiliation | NON | + + + [...] Team Providers + +------+ + | Care Double End Chucking Machine Operator Name | Role | Phone [...] THORACIC | | 2018 | | 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 The patient noted new onset of right lower extrem ity weakness on 07/06/2018 and then presented to the hospital for evaluation. Ms. Worrell was transferred to [facility] on 07/06/2018. A MRI showed cord [...] from the beginning. Dura was closed with [place]-Thaddeus, tacked up with 4-0 Nurol on sutures. [...] patient was felt appropriate for discharge to [facility] (Inpatient Rehab) on 07/12/2018, and the patient and/or family members agree with this course of action. The janeth rayamirela has a follow up appointment in the [facility] Neurosurgery Spine clinic on 07/31/2018. Medication [...] on the 1 2th floor at the [facility] on the [facility] located at [address] [place] [address]. Please call [phone] if you have any questions or concerns bef ore your appointment time. Code Status for Facility Status: Full Code Discharge Follow Up - Facility MD to follow Facility MD to follow patient. Future Appointments Provider Department Dept Phone Center 07/31/2018 1:00 PM Raheem Doss Spine Center at [facility] [phone] SPC Contact information for after-discharge care Discharge Destination Tim Rothman [facility] [place] . Specialty: Inpatient Rehabilitation Facility Contact information [address] [facility] [address] Warning Symptoms and Signs Please call the Neurosurgery clinic at [phone] with any questions Sunday to Sunday 8 A M - 4 PM. After hours, call [facility] at [phone] and ask to speak with the Neurosurgery resi dent rail bonder if you have any of the following: - Difficulty breathing or shortness of breath; - Excessive bleeding or drainage from incision sites; - Fevers, chills, sweats; - Persistent nausea or vomiting; - Change in mental status. [facility] Neurosurgery Service Pain Policy [facility] Neurosurgery Service Pain Policy: Our clinic can prescribe pain medication for up to 6 weeks post-op. All refills must be requested through a the [facility] Neurosurgery Clinic. Patients must give the [...] - 1.10 mg/dL 0.45 (L) EGFR - ANGOLAN Latest Ref Range: >60 mL/min >60 EGFR NON -ANGOLAN Latest Ref Range: >60 mL/min >60 GLUCOSE, [...] plan with case management. CALEB HENRY PA-C [facility] [address] [address] [place] [address] MEDICATIONS Current Facility-Administered Medications Medication acetaminophen (TYLENOL) [...] on ppx Lovenox. Dispo: Pending acceptance at [facility]. RAHEEM DOSS PA-C [facility] [address] [place] [address] dams, PHILIPPE Mena - 07/10/2018 8:17 AM PST Neurosurgery Progress Note Hospital Day:4 Author; RAHEEM DOSS PA-C Attending Physician: Rajinder Luis MD Interval Hx: -Patient reports improvement in pain control this AM, currently at a 5/10. She is happy wit h the changes the APS team made. -She would like to hold on removing her daniels catheter until she can get to [facility] ([facility]) as th ey manage neurogenic bladder and training well over there. She states she is aware of the ri sks of keeping it in usp. 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 RAHEEM DOSS PA-C [facility] [address] [place], [place] [id number] Mook Álvarez ra, MD - 07/09/2018 9:09 [...] WORRELL Routine Cultures PROCEDURE: Strep Screen Culture [[id number]: 11/05/2017 16:4 4 PDT P1] SOURCE: Throat STARTED: 11/05/2017 20:3 9 PDT FREE TEXT SOURCE: BODY SITE: FINAL REPORTS Final Report [] Verified Date/Time: 11/07/2017 11:07 PDT No beta Strep isolated. Order Comments O1: Strep Screen Culture (CULTURE THROAT STREP SCREEN - [facility] - Ordering-Phys: PRINCESS GRAVES) Location: [facility] Performing Locations P1: This test was performed at: [facility] Lab Lab Results Component Value [...] Please contact the Neurosurgery resident on-call pager [phone] with questions or concerns. Olinda Araya MD Resident Physician Department of Neurosurgery Lucinda Valencia PA-C - 07/09/2018 5:50 AM PSTFormatting of this note might be diffe rent from the original. . Neuroscience Intensive Care Unit Team Progress Note NSICU ASSIGNED #[id number] ICU Admission Reason Most Recent Value ICU [...] as admitted to the [facility] on Dr. uLis's neurosurgery service on 07/06 with new Right [...] Provider Role Specialty Ipt Critical Care Nsicu #66800 Treatment Team Ipt Neurosurgery #71814 Treatment Team Neurological Surgery Patient Lines/Drains/Airways Status [...] Date of Service: 07/09/2018 LUCINDA CASTAÑEDA PA-C [facility] DEPARTMENT: ANE ICU NEURO Place of Service:- Inpatient CSN: [id number] Suggested Modifier: None Suggested CPT: TO COST SPECIALIST Author:LUCINDA CASTAÑEDA PA-C [address] [address]Dheglhrbzbmucl signed by Lucinda Castañeda PA-C at 07/09/2018 [...] Please contact the Neurosurgery resident on-call pager [phone] with questions or concerns. Kamaljit Rios M.D., M.P.H. R2 Resident Physician Neurological Surgery Pager: [phone] signed by Kamaljit Rios MD,MPH at 07/08/2018 [...] Imaging: MRI SPINE THORACIC WO CONTRAST Order: [id number] Performed: 07/07/2018 15:00 Status: Final result Visible [...] MG/ML) INT RAVENOUS SOLUTION 13 mL (accession [id number]), GADOTERATE MEGLUMINE 0.5 MMOL/ML (376.9 MG/ML) INTRAVENOUS SOLUTION 13 mL (accession [id number]) FINDINGS: Thoracic spine: There is abnormal T2 [...] 15:48 CT SPINE THORACIC WO CONTRAST Order: [id number] Performed: 07/07/2018 15:12 Status: Final result Visible [...] duloxetine, gabapentin, baclofen, trazodone RAHEEM DOSS PA-C [facility] [address] [place] [address] Dave Mcclain MD - 07/07/2018 12:34 PM [...] today Dave Ayala MD Neurosurgery, PGY-1 Pager [phone] Dave Mccalin MD - 07/07/2018 7:38 AM PST NEUROSURGERY PROGRESS NOTE 07/07/2018 Hospital Day #: 1 Attending: Rajnider Luis MD Interval Events: -Admitted yesterday for [...] pre-op today -npo at midnight Please page [phone] with any questions or concerns. Dave Ayala MD Neurosurgery, PGY-1 Pager [phone] documented in this encounter Plan of Treatment [...] | | | LABORATORY | | | ANGOLAN | | | SERVICES, | | | [...] | + + + + + | [facility] LABORATORY | [address] | [place] [address] | | | NINO LEONARD | JEAN [...] [facility] | [address] | [place], [place] | | | [place] POINT OF CARE | [address] | [address] | | | TESTS | | | [...] LABORATORY | [address] | [place] [address] | | | SERVICES, CORE | PARK [...] | + + + + + | [facility] LABORATORY | [address] [facility] [facility] | [place] [address] | | | SERVICES, CORE | PARK [...] | | | LABORATORY | | | ANGOLAN | | | SERVICES, | | | [...] the MDRD equation recommended by the | [facility] | | National Kidney Disease Education [...] | + + + + + | [facility] | [address] | [place] [address] | | | HORACIO, NINO | JEAN [...] (H) | 60 - 99 mg/dL | [facility] - | | | GLUCOSE, | [...] [facility] | [address] | [place], [place] | | | ZELALEM HERRERA OF NURIA | [facility] | [address] | | | TESTS | | | [...] BRAMBILA | [address] | [place], [place] | | | JAVIER POINT OF CARE | [address] | [address] | | | TESTS | | | [...] [place] | [address] | [place], [place] | | | ZELALEM HERRERA OF CARE | [facility] | [address] | | | TESTS | | | [...] T[place]MAN | [address] | [place] [address] | | | SERVICES, CORE | JEAN [...] LABORATORY | [address] | [place] [address] | | | SERVICES, CORE | JEAN [...] | | | LABORATORY | | | ANGOLAN | | | SERVICES, | | | [...] | + + + + + | [facility] | [address] | [place] [address] | | | HORACIO, NINO | PARK [...] Attending | | Surgeon: Rajinder Luis MD Front End Engineer(s): Yokasta Webb MD. | | Preoperative Diagnoses: [...] | | beginning. Dura was closed with [place]-Thaddeus, tacked up with 4-0 Nurolon sutures. The [...] the operating room | | on a [facility]. She was intubated without difficulty by the [...] then closed it with a running 6-0 [place]-Thaddeus suture. We tacked out the | | [...] 07/08/2018 | | 19:06:44DT: 07/08/2018 19:40:29Job #: [id number] | |Indication: Intraoperative evaluation of adequacy of [...] |JLG/MODL | | | | | | /[id number] | + + PROCEDURE NOTE (07/08/2018 4:53 [...] | + + + + + | [facility] | [address] | [place] [address] | | | SERVICES, CORE | [address] | | | + + + + + MAGNESIUM, PLASMA (07/08/2018 1:46 PM PST) + +-------+ + + + | Component | Value | Ref Range | Performed | Pathologist | | | | | At | Signature | + +-------+ + + + | MAGNESIUM,P | 1.8 | 1.6 - 2.6 mg/dL | [facility] | | | LASMA | | | [...] | + + + + + | [facility] LABORATORY | [address] | [place] [address] | | | SERVICES, CORE | JEAN [...] | | | LABORATORY | | | ANGOLAN | | | SERVICES, | | | [...] | + + + + + | [facility] | [address] | [place] [address] | | | SERVICES, CORE | JEAN [...] + + | [facility] | [address] | [place], [place] | | | ZELALEM HERRERA OF CARE | [address] | [address] | | | TESTS | | | [...] | | | Yokasta Webb PGY5 Pager [phone] YOKASTA WEBB MD | | + + [...] from | | | | | | [id number], | | | | | | [id number], | | | | | | [id number], and | | | | | | [id number]). According | | | | | | to [facility], molecular | | | | | [...] | | | | | | y, [facility] & | | | | | | [facility] | | | | | [...] | | | | | | number [id number].A. | | | | | | Other, [...] | + + + + + | [facility] DEPARTMENT | [address] [facility] | [place] [address] | | | PATHOLOGY | [address] [...] LABORATORY | [address] | [place] [address] | | | SERVICES, CORE | JEAN [...] | + + + + + | [facility] | [address] | [place] [address] | | | SERVICES, CORE | JEAN [...] | | | LABORATORY | | | ANGOLAN | | | SERVICES, | | | [...] | + + + + + | [facility] | [address] [facility] | [place] [address] | | | SERVICES, CORE | [address] | | | + + + + + INTRAOPERATIVE NEURO MONITORING (07/08/2018) + + + | Narrative | Performed At | + + + | Patient Name: Qiana Parsons Rylan Date of : 1990 | | | Date of Test: 07/08/2018 Place | | | of Service: IP Intra Op [phone]) [id number] INTRAOPERATIVE | | | NEURO MONITORING IOM: [...] min(s), with | | | [place] [address] - Short Latency EP's Upper AND Lower extremities | | | 45951 - Central Motor EP's Upper AND Lower [...] SOLUTION 13 | | | mL (accession [id number]), GADOTERATE MEGLUMINE 0.5 MMOL/ML (376.9 | | | MG/ML) INTRAVENOUS SOLUTION 13 mL (accession [id number]) FINDINGS: | | | Thoracic spine: There [...] (376.9 MG/ML) INTRAVENOUS SOLUTION 13 mL (accession [id number]), | | GADOTERATE MEGLUMINE 0.5 MMOL/ML (376.9 MG/ML) INTRAVENOUS SOLUTION 13 mL (accession | | [id number]) FINDINGS:Thoracic spine: There is abnormal T2 hyperintensity [...] SOLUTION 13 | | | mL (accession [id number]), GADOTERATE MEGLUMINE 0.5 MMOL/ML (376.9 | | | MG/ML) INTRAVENOUS SOLUTION 13 mL (accession [id number]) FINDINGS: | | | Thoracic spine: There [...] (376.9 MG/ML) INTRAVENOUS SOLUTION 13 mL (accession [id number]), | | GADOTERATE MEGLUMINE 0.5 MMOL/ML (376.9 MG/ML) INTRAVENOUS SOLUTION 13 mL (accession | | [id number]) FINDINGS:Thoracic spine: There is abnormal T2 hyperintensity [...] LABORATORY | [address] | [place] [address] | | | SERVICES, | [address] [...] LABORATORY | [address] | [place] [address] | | | SERVICES, | [address] [...] LABORATORY | [address] | [place] [address] | | | SERVICES, CORE | PARK [...] | + + + + + | [facility] | [address] | [place] [address] | | | SERVICES, CORE | JEAN [...] | | | LABORATORY | | | ANGOLAN | | | SERVICES, | | | [...] + + + | [facility] | [address] | [place] [address] | | | SERVICES, CORE | JEAN [...]
--- OUTSIDE RECORDS SUMMARY | ~2019-06-26 | XMS | Encounter Summary ---
Demographics + + + | Address | [address] | | | [place] [address] | + + + | Home Phone [...] Providers + +------+ + | Care Medical Scientific Officer Name | Role | Phone | [...] | on | AMBULATORY [address] | [facility] [address] [facility] | | | | | [address] | [facility] | | | | | Mailcode: CH6A | [place], [place] | | | | | [place], [place] | [address] | | | | | [address] | [phone] | | | | | [phone] | | | +--------+ + + + [...]
--- OUTSIDE RECORDS SUMMARY | ~2019-06-26 | XMS | Encounter Summary ---
Demographics + + + | Address | [address] | | | [place] [address] | + + + | Home Phone [...] Team Providers + +------+ + | Care Integrated Pest Management Technician Name | Role | Phone | [...] | Event | [address] | [address] | | | | | Franko [facility] | [address] | | | | | Hospital Admitting | [place], [place] | | | | | Desk Located on the | [address] | | | | | 9th floor | [phone] | | | | | [place], [place] | | | | | | [address] | | | +--------+ + + + [...] Incision | Forced air warmer connected to de alcoholizer recommended warming | | | 9 | [...] | | Endotracheal Tube; 7; Oral; | SENIOR IT SPECIALIST | SENIOR IT SPECIALIST | | | Cuffed; 07/08/18; 1304 | | | +--------+ + + + | Periph | 07/08/18; 0905; Jorge Kumar, | 07/08/18 0905 by | 07/11/18 1144 by | | eral | SENIOR IT SPECIALIST; Right; Dorsal; Hand; 16 g; | Jorge Kumar, | Carmen Saul RN | | IV | No; No; Positive; 07/11/18; 1144 | SENIOR IT SPECIALIST | | +--------+ + + + | Periph | 07/08/18; 905; Hermann Lanza, | 07/08/18905 by | 07/09/18 0600 by | | berenice | MD; Left; Hand; 18 g; No; No; | Jorge Stacy, | Brittnee Oscar RN | | IV | Positive; 07/09/18; 0600; Per | SENIOR IT SPECIALIST | | | | patient/family request | [...]
--- OUTSIDE RECORDS SUMMARY | ~2019-06-26 | XMS | Encounter Summary ---
Demographics + + + | Address | [address] | | | [place] [address] | + + + | Home Phone [...] Team Providers + +------+ + | Care Dish Cloth Inspector Name | Role | Phone | [...] | | 2018 | on | [facility] [address] | PA-C [address] | | | | | Shwetha Mailcode: | [place], [place] | | | | | [facility] | [address] | | | | | and [place], | [phone] | | | | | [place] [address] | | | | | | [place], [place] | | | | | | [address] | | | | | | [phone] | | | +--------+ + + + [...]
--- OUTSIDE RECORDS SUMMARY | ~2019-06-26 | XMS | Encounter Summary ---
Demographics + + + | Address | [address] | | | [place] [address] | + + + | Home Phone [...] Team Providers + +------+ + | Care Health Care Law Specialist Name | Role | Phone | [...] | | | PHYSICAL | [place], | [facility] | | | | | THERAPY | [place] | for Health | | | | | REFERRAL | [address] | and Healing, | | | | | | Phone: | Building [address], | | | | | | [phone] | [address] Floor | | | | | | Fax: | [place], [place] | | | | | | [phone] | [address] | | | | | | | Phone: | | | | | | | [phone] | | | | | | | Fax: | | | | | | | [phone] | +--------+--------+ + + + + Encounter Details +--------+ + + + + | Date | Type | Department | Care Team | Description | +--------+ + + + + | 09/14/ | Adjunct Teacher | Neurosurgery at | Raegan Doss, | Spinal cord tumor | | 2015 | | [facility] [address] | PA-C [address] | (Primary Dx) | | | | Ave Mailcode: CH8N | Ave [place], [place] | | | | | [facility] | [address] | | | | | and [place], | [phone] | | | | | [facility] | | | | | | [address], [place] | | | | | | [address] | | | | | | [phone] | | | +--------+ + + + [...]
--- OUTSIDE RECORDS SUMMARY | ~2019-06-26 | XMS | Encounter Summary ---
Demographics + + + | Address | [address] | | | [place] [address] | + + + | Home Phone [...] +------+ + | Care Learning And Development Director Name | Role | Phone | [...] | 2017 | Pass | Services at [facility] | | | | | | [address] | | | | | | Marla Abdul Mailcode: | | | | | | [address] [place] | | | | | | [facility] | | | | | | [place], [place] | | | | | | [address] | | | | | | [phone] | | | +--------+ + + + [...]
--- OUTSIDE RECORDS SUMMARY | ~2019-06-26 | XMS | Encounter Summary ---
Demographics + + + | Address | [address] | | | [place] [address] | + + + | Home Phone [...] Providers + +------+ + | Care Manager Corporate Strategy Name | Role | Phone | + [...] | Post-discharge | | 2015 | | [facility] [address] | [address] | follow-up (s/p | | | | Ave Mailcode: CH8N | [place], [place] | admission 05/06/15 - | | | | [place] [facility] | [address] | : anterior | | | | and Healing, | [phone] | cervical diskectomy | | | | | | and fusion at C6-7) | | | | Floor [place], [place] | | | | | | [address] | | | | | | [phone] | | | +--------+ + + + [...]
--- OUTSIDE RECORDS SUMMARY | ~2019-06-26 | XMS | Clinical Summary ---
Demographics + + + | Address | [address] | | | [place] [address] | + + + | Home Phone [...] Team Providers + +------+ + | Care Timber Surveyor Name | Role | Phone | + +------+ + | No Pcp Per Patient | PCP | Unavailable | + +------+ + Source Comments MOISE is fully live on both EpicCare Ambulatory and EpicCare InPatient.[facility] Allergies + + + + + [...] | | vasopressors-Continue Decadron: 3 day rapid zwoqk-Pmcq-ft abx | | per Neurosurgery-HOB flat since [...] | Last Assessment & Plan: -Admit to [facility]; Dr. Michelle Luis | | primary. 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 -postop abx; Ancef i2z-KQI <160 with MAP>65 for | | adequate [...] Due | + + + + | IOQ-Smz-CrrZ | 11/06/1999, 04/07/1999, 01/05/1995, | | | [...] | | | [employer] | | | [id number] | | [id number]: Qty: 1 on | | | LIFESCIENCE | | | / | | 05/13/2015 by Rajinder Luis | | | S | | | /[id number] | | MD Phillip at [facility] INPATIENT REV | | | | | | 25X | | LOC | | | | | | | + +------+--------+ +--------+--------+--------+ | Sealant Duraseal Low Swell - | | Midlin | [employer] | | 06/07/ | [id number] | | [id number]: Qty: 1 on | | e: | LIFESCIENCE | | 2016 | / | | 03/22/2016 by Rajinder Luis | | Spine | S | | | /[id number] | | MD Phillip at [facility] INPATIENT REV | | | | | | 59X | | LOC | | | | | | | + +------+--------+ +--------+--------+--------+ | Sealant Hemostatic Floseal | | N/A: | SHAH | | 05/25/ | [id number] | | Matrix Needle Free Adapter | | Spine | HEALTHCARE | | 2018 | 0 / | | 5ml - [id number]: | | | | | | /[id number] | | Qty: 1 on 01/13/2017 by | | | | | | 523 | | Rajinder Luis MD at [facility] | | | | | | | | INPATIENT REV LOC | | | | | | | + +------+--------+ +--------+--------+--------+ | Sealant Hemostatic Floseal | | N/A: | SHAH | | / | [id number] | | Matrix Needle Free Adapter | | Spine | HEALTHCARE | | 2019 | 8 / | | 5ml - [id number]: | | | | | | /[id number] | | Qty: 1 on 07/08/2018 by | | | | | | 187 | | Rajinder Luis MD at [facility] | | | | | | | | INPATIENT REV LOC | | | | | | | + +------+--------+ +--------+--------+--------+ + + | Description:Given to surgical | | field | + + + +---+--------+ +---+--------+--------+ | Sealant Hemostatic Floseal | | Midlin | SHAH | | 12/06/ | [id number] | | Matrix Needle Free Adapter | | e: | HEALTHCARE | | 2019 | 8 / | | 5ml - [id number]: | | Spine | | | | /[id number] | | Qty: 1 on 10/03/2018 by | | | | | | 262 | | Rajinder Luis MD at [facility] | | | | | | | [...] | MEDICA | xxxxxxxxxxx | Effect | [phone] | [address] | Medica | | | RE A & | | edith | 1 | [address] | re | | | B | | for | | [place], [place] | | | | | | all | | [phone] | | | | | | dates [...] | | | | | | | [address] | | + +--------+ +--------+ + +--------+ | MEDICAID [place] | MCAID | xxxxxxxx | 10/08/19 | [phone] | [address] | Medica | | | QMM | | 19-Pre | 6 | [address] | id | | | QMB | | sent | | [place] | | | | | | | | [address] | | + +--------+ +--------+ + +--------+ [...] | | al/Fam | | 1990 | [address] | [address] [place], [place] | | | mehul | | | 6 (Home) | [address] | + +--------+ +--------+ + + | Matt Fagan T | Person | Self | [birth year] | | [address] | | | al/Fam | | 1990 | [address] | [address] [place], [place] | | | mehul | | | 6 (Home) | [address] | + +--------+ +--------+ + + Advance [...]
--- OUTSIDE RECORDS SUMMARY | ~2019-06-26 | XMS | Encounter Summary ---
Demographics + + + | Address | [address] | | | [place] [address] | + + + | Home Phone [...] Team Providers + +------+ + | Care Burn Crew Member Name | Role | Phone | + +------+ + | Clare Mendoza MD | PCP | | + +------+ + Encounter Details +--------+ + + + + | Date | Type | Department | Care Team | Description | +--------+ + + + + | 02/14/ | Inside Barrel Lathe Operator | Spine Center at | Raegan Doss, | | | 2017 | | [facility] [address] | PA-C [address] | | | | | Shwetha Mailcode: | [place], [place] | | | | | [facility] | [address] | | | | | and [place], | [phone] | | | | | [place] [address] | | | | | | [place], [place] | | | | | | [address] | | | | | | [phone] | | | +--------+ + + + [...]
--- OUTSIDE RECORDS SUMMARY | ~2019-06-26 | XMS | Encounter Summary ---
Demographics + + + | Address | [address] | | | [place] [address] | + + + | Home Phone [...] Team Providers + +------+ + | Care Client Application Support Engineer Name | Role | Phone | [...] | Event | [address] | [address] | | | | | Franko [facility] | [address] | | | | | Hospital Admitting | [place], [place] | | | | | Desk Located on the | [address] | | | | | 9th floor | [phone] | | | | | [place], [place] | | | | | | [address] | Ray Rubin, | | | | | | [address] | | | | | | [address] | | | | | | [place], [place] | | | | | | [address] | | | | | | [phone] | | | | | | | [...] + + + | Periph | [facility]; Left; | 09/09/151901 by | 09/11/151658 [...] 11:43 | | | | | Starting [facility] 09/09/15 at 2343, | | PM PST | | | | | Until [facility] 09/09/15 at 2357 | | | [...]
--- OUTSIDE RECORDS SUMMARY | ~2019-06-26 | XMS | Encounter Summary ---
Demographics + + + | Address | [address] | | | [place] [address] | + + + | Home Phone [...] Team Providers + +------+ + | Care Biomechanical Engineer Name | Role | Phone | + +------+ + | Tiff Chapin | PCP | | + +------+ + Encounter Details +--------+ + + + + | Date | Type | Department | Care Team | Description | +--------+ + + + + | 05/11/ | Document-Sc | Health Information | Unknown . | | | 2014 | anned | Services [address] | | | | | | [address] | | | | | | Mailcode: OP17A | | | | | | [facility] | | | | | | [place], [place] | | | | | | [address] | | | | | | [phone] | | | +--------+ + + + [...]
--- OUTSIDE RECORDS SUMMARY | ~2019-06-26 | XMS | Encounter Summary ---
Demographics + + + | Address | [address] | | | [place] [address] | + + + | Home Phone | | + + + | Preferred Language | Unknown | + + + | Marital Status | Single | + + + | Mormon Affiliation | NON | + + + [...] Providers + +------+ + | Care Carbon Accountant Name | Role | Phone | [...] | | | | | Marla [place], | | | | | | [place] [address] | | | +--------+--------+ + + + [...]
--- OUTSIDE RECORDS SUMMARY | ~2019-06-26 | XMS | Encounter Summary ---
Demographics + + + | Address | [address] | | | [place] [address] | + + + | Home Phone [...] Team Providers + +------+ + | Care Demand Equipment Repairer Name | Role | Phone | [...] MD | | | 2016 | | [facility] [address] | [address] | | | | | Ave Mailcode: CH8N | [place], [place] | | | | | [facility] | [address] | | | | | and Healing, | [phone] | | | | | [facility] | | | | | | Floor [place], [place] | | | | | | [address] | | | | | | [phone] | | | +--------+ + + + [...]
--- OUTSIDE RECORDS SUMMARY | ~2019-06-26 | XMS | Encounter Summary ---
Demographics + + + | Address | [address] | | | [place] [address] | + + + | Home Phone [...] Team Providers + +------+ + | Care Continuous Pillowcase Cutter Name | Role | Phone | [...] | | 2017 | on | [facility] [address] | PA-C [address] | | | | | [place] Mailcode: | [place], [place] | | | | | [facility] | [address] | | | | | and [place], | [phone] | | | | | [address] [address] | | | | | | [place], [place] | | | | | | [address] | | | | | | [phone] | | | +--------+ + + + [...]
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
--- OUTSIDE RECORDS SUMMARY | ~2019-06-26 | XMS | Encounter Summary ---
Demographics + + + | Address | [address] | | | [place] [address] | + + + | Home Phone [...] Team Providers + +------+ + | Care Cementer Name | Role | Phone | + [...] | spinal cord | [place], [place] | [place], [place] | | | | | Procedures | [address] | [address] | | | | | REQUEST TO | Phone: | Phone: | | | | | SURGERY | [phone] | [phone] | | | | | DEALER DEVELOPMENT MANAGER | Fax: | Fax: | | | | | [place] [facility] | [phone] | [phone] | | | | | SPIN | | | | | | | MARCELINO,INDUR,IN | | | | | | | MED,[place] | | | | | | | [...] + + + + | 05/10/ | Boxing Inspector | Neurosurgery at | Raegan Doss, | Weakness of right | | 2014 | | [facility] [address] | PA-C [address] | lower extremity | | | | Ave Mailcode: CH8N | Ave [place], [place] | (Primary Dx) | | | | [facility] | [address] | | | | | and Healing, | [phone] | | | | | [facility] | | | | | | Floor [facility] [place] | | | | | | [address] | | | | | | [phone] | | | +--------+ + + + [...]
--- OUTSIDE RECORDS SUMMARY | ~2019-06-26 | XMS | Encounter Summary ---
Demographics + + + | Address | [address] | | | [place] [address] | + + + | Home Phone [...] Providers + +------+ + | Care Supervisor Boarding Name | Role | Phone | + [...] Visit | H [address] | [place] [address] | (Primary Dx) | | | | Ave Mailcode: | [place], [place] | | | | | [facility] | [address] | | | | | and [place], | [phone] | | | | | [address] | | | | | | [place], [place] | | | | | | [address] | | | | | | [phone] | | | +--------+---------+ + + + [...] low grade glioneuronal tumor. She discharged to [place] shortly after her surgery. Today the patient [...] or neurogenic bowel/bladder) develop. 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
--- OUTSIDE RECORDS SUMMARY | ~2019-06-26 | XMS | Encounter Summary ---
Demographics + + + | Address | [address] | | | [place] [address] | + + + | Home Phone [...] Team Providers + +------+ + | Care Bleach Boiler Filler Name | Role | Phone | + [...] | | | | | | [facility] | | | | | | Hospital Admitting | | | | | | Desk Located on the | | | | | | 9th floor | | | | | | [place], [place] | | | | | | [address] | | | +--------+ + + + [...]
--- OUTSIDE RECORDS SUMMARY | ~2019-06-26 | XMS | Encounter Summary ---
Demographics + + + | Address | [address] | | | [place] [address] | + + + | Home Phone [...] Providers + +------+ + | Care Manager Background Name | Role | Phone | + [...] to social | | 2014 | | [facility] [address] | [address] | worker | | | | [address] | [place], | | | | | Mailcode: CH6A | [place] [address] | | | | | [place], [place] | | | | | | [address] | | | | | | [phone] | | | +--------+ + + + [...]
--- OUTSIDE RECORDS SUMMARY | ~2019-06-26 | XMS | Encounter Summary ---
Demographics + + + | Address | [address] | | | [place] [address] | + + + | Home Phone [...] Team Providers + +------+ + | Care Cashier Courtesy Booth Name | Role | Phone | + [...] THORACIC | | 2018 | | [facility] | [address] | LAMINECTOMIES FOR | | | | Rd [facility] | [place], [place] | TUMOR RESECTION | | | | Hospital Admitting | [address] | | | | | Desk Located on the | [phone] | | | | | 9th floor | | | | | | [place], [place] | | | | | | [address] | | | +--------+---------+ + + + [...] Female who has been followed in the [facility] Neurosurgical c linic for 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 The patient noted new onset of right lower extrem ity weakness on 07/06/2018 and then presented to the hospital for evaluation. Ms. Worrell was transferred to [facility] on 07/06/2018. A MRI showed cord [...] from the beginning. Dura was closed with Brunswick-Thaddeus, tacked up with 4-0 Nurol on sutures. [...] patient was felt appropriate for discharge to [place] (Inpatient Rehab) on 07/12/2018, and the patient and/or family members agree with this course of action. The janeth rayamirela has a follow up appointment in the [facility] Neurosurgery Spine clinic on 07/31/2018. Medication [...] on the 1 2th floor at the [facility] on the [facility] located at [address] [place] [address]. Please call [phone] if you have any questions or concerns bef ore your appointment time. Code Status for Facility Status: Full Code Discharge Follow Up - Facility MD to follow Facility MD to follow patient. Future Appointments Provider Department Dept Phone Center 07/31/2018 1:00 PM Raheem Doss Spine Center at [facility] [phone] SPC Contact information for after-discharge care Discharge Destination [facility] [place] . Specialty: Inpatient Rehabilitation Facility Contact information [address] [address] Warning Symptoms and Signs Please call the Neurosurgery clinic at [phone] with any questions Sunday to Sunday 8 A M - 4 PM. After hours, call [facility] at [phone] and ask to speak with the Neurosurgery resi dent tanning consultant if you have any of the following: - Difficulty breathing or shortness of breath; - Excessive bleeding or drainage from incision sites; - Fevers, chills, sweats; - Persistent nausea or vomiting; - Change in mental status. [facility] Neurosurgery Service Pain Policy [facility] Neurosurgery Service Pain Policy: Our clinic can prescribe pain medication for up to 6 weeks post-op. All refills must be requested through a the [facility] Neurosurgery Clinic. Patients must give the [...] - 1.10 mg/dL 0.45 (L) EGFR - TURKMEN Latest Ref Range: >60 mL/min >60 EGFR NON -TURKMEN Latest Ref Range: >60 mL/min >60 GLUCOSE, [...] plan with case management. CALEB HENRY PA-C [facility] [address] [address] [place] [address] MEDICATIONS Current Facility-Administered Medications Medication acetaminophen (TYLENOL) [...] on ppx Lovenox. Dispo: Pending acceptance at [facility]. RAHEEM DOSS PA-C [facility] [address] [place] [address] dams, PHILIPPE Mena - 07/10/2018 8:17 AM PST Neurosurgery Progress Note Hospital Day:4 Author; RAHEEM DOSS PA-C Attending Physician: Rajinder Luis MD Interval Hx: -Patient reports improvement in pain control this AM, currently at a 5/10. She is happy wit h the changes the APS team made. -She would like to hold on removing her daniels catheter until she can get to [place] ([facility]) as th ey manage neurogenic bladder and training well over there. She states she is aware of the ri sks of keeping it in correction. 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 RAHEEM DOSS PA-C [facility] [address] [place], [place] [id number] Mook Álvarez ra, MD - 07/09/2018 9:09 [...] WORRELL Routine Cultures PROCEDURE: Strep Screen Culture [[id number]: 11/05/2017 16:4 4 PDT P1] SOURCE: Throat STARTED: 11/05/2017 20:3 9 PDT FREE TEXT SOURCE: BODY SITE: FINAL REPORTS Final Report [] Verified Date/Time: 11/07/2017 11:07 PDT No beta Strep isolated. Order Comments O1: Strep Screen Culture (CULTURE THROAT STREP SCREEN - [facility] - Ordering-Phys: PRINCESS GRAVES) Location: [facility] Performing Locations P1: This test was performed at: [facility] Lab Results Component Value Date APTT [...] Please contact the Neurosurgery resident on-call pager [phone] with questions or concerns. Olinda Araya MD Resident Physician Department of Neurosurgery Lucinda Valencia PA-C - 07/09/2018 5:50 AM PSTFormatting of this note might be diffe rent from the original. . Neuroscience Intensive Care Unit Team Progress Note NSICU ASSIGNED #[id number] ICU Admission Reason Most Recent Value ICU [...] Provider Role Specialty Ipt Critical Care Nsicu #17857 Treatment Team Ipt Neurosurgery #[id number] Treatment Team Neurological Surgery Patient Lines/Drains/Airways Status [...] of Service: 07/09/2018 LUCINDA CASTAÑEDA PA-C [facility] DEPARTMENT: ANE ICU NEURO Place of Service:- Inpatient CSN: [id number] Suggested Modifier: None Suggested CPT: TO BRANCH OFFICE MANAGER Author:LUCINDA CASTAÑEDA PA-C [address] [address]Hzyzlkbldfqadc signed by Lucinda Castañeda PA-C at 07/09/2018 [...] Please contact the Neurosurgery resident on-call pager [phone] with questions or concerns. Kamaljit Rios M.D., M.P.H. R2 Resident Physician Neurological Surgery Pager: [phone] signed by Kamaljit Rios MD,MPH at 07/08/2018 [...] Imaging: MRI SPINE THORACIC WO CONTRAST Order: [id number] Performed: 07/07/2018 15:00 Status: Final result Visible [...] MG/ML) INT RAVENOUS SOLUTION 13 mL (accession [id number]), GADOTERATE MEGLUMINE 0.5 MMOL/ML (376.9 MG/ML) INTRAVENOUS SOLUTION 13 mL (accession [id number]) FINDINGS: Thoracic spine: There is abnormal T2 [...] 15:48 CT SPINE THORACIC WO CONTRAST Order: [id number] Performed: 07/07/2018 15:12 Status: Final result Visible [...] duloxetine, gabapentin, baclofen, trazodone RAHEEM DOSS PA-C [facility] [address] [place] [address] Dave Mcclain MD - 07/07/2018 12:34 PM [...] today Dave Ayala MD Neurosurgery, PGY-1 Pager [phone] Dave Mcclain MD - 07/07/2018 7:38 AM [...] pre-op today -npo at midnight Please page [phone] with any questions or concerns. Dave Ayala MD Neurosurgery, PGY-1 Pager [phone] documented in this encounter Plan of Treatment [...] | | | LABORATORY | | | TURKMEN | | | SERVICES, | | | [...] + + + + + | [facility] LABORATORY | [address] | [place] [address] | | | NINO LEONARD | JEAN [...] [place] | [address] | [place], [place] | | | CASCADE LOCKS POINT OF CARE | [address] | [address] | | | TESTS | | | [...] LABORATORY | [address] | [place] [address] | | | SERVICES, CORE | PARK [...] + + + + + | [facility] LABORATORY | [address] [facility] | [place] [address] | | | SERVICES, CORE | PARK [...] | | | LABORATORY | | | TURKMEN | | | SERVICES, | | | [...] MDRD equation recommended by the | [facility] | | National Kidney Disease [...] + + + + + | [facility] | [address] | [place] [address] | | | HORACIO, NINO | JEAN [...] | 60 - 99 mg/dL | [facility] - | | | GLUCOSE, [...] [place] | [address] | [place], [place] | | | ZELALEM HERRERA OF NURIA | [facility] | [address] | | | TESTS | | | [...] BRAMBILA | [address] | [place], [place] | | | JAVIER POINT OF CARE | [address] | [address] | | | TESTS | | | [...] [place] | [address] | [place], [place] | | | ZELALEM HERRERA OF CARE | [facility] | [address] | | | TESTS | | | [...] [place] | [address] | [place] [address] | | | SERVICES, CORE | JEAN [...] LABORATORY | [address] | [place] [address] | | | SERVICES, CORE | JEAN [...] | | | LABORATORY | | | TURKMEN | | | SERVICES, | | | [...] + + + + + | [facility] | [address] | [place] [address] | | | HORACIO, NINO | PARK [...] Attending | | Surgeon: Rajinder Luis MD Aerospace Project Manager(s): Yokasta Webb MD. | | Preoperative Diagnoses: [...] | | beginning. Dura was closed with Brunswick-Thaddeus, tacked up with 4-0 Nurolon sutures. The [...] then closed it with a running 6-0 Brunswick-Thaddeus suture. We tacked out the | | [...] 07/08/2018 | | 19:06:44DT: 07/08/2018 19:40:29Job #: [id number] | |Indication: Intraoperative evaluation of adequacy of [...] |JLG/MODL | | | | | | /[id number] | + + PROCEDURE NOTE (07/08/2018 4:53 [...] + + + + + | [facility] | [address] | [place] [address] | | | SERVICES, CORE | [address] | | | + + + + + MAGNESIUM, PLASMA (07/08/2018 1:46 PM PST) + +-------+ + + + | Component | Value | Ref Range | Performed | Pathologist | | | | | At | Signature | + +-------+ + + + | MAGNESIUM,P | 1.8 | 1.6 - 2.6 mg/dL | [facility] | | | LASMA | | [...] + + + + + | [facility] LABORATORY | [address] | [place] [address] | | | SERVICES, CORE | JEAN [...] | | | LABORATORY | | | TURKMEN | | | SERVICES, | | | [...] + + + + + | [facility] | [address] | [place] [address] | | | SERVICES, CORE | JEAN [...] + + | [facility] | [address] | [place], [place] | | | ZELALEM HERRERA OF CARE | [address] | [address] | | | TESTS | | | [...] | | | Yokasta Webb PGY5 Pager [phone] YOKASTA WEBB MD | | + + [...] from | | | | | | [id number], | | | | | | [id number], | | | | | | [id number], and | | | | | | [id number]). According | | | | | | to [facility], molecular | | | | | | [...] | | | | | | y, [facility] & | | | | | [...] | | | | | | number [id number]. | | | | | | Other, [...] + + + + + | [facility] DEPARTMENT | [address] [facility] | [place] [address] | | | PATHOLOGY | [address] [...] LABORATORY | [address] | [place] [address] | | | SERVICES, CORE | [address] | | | + + + [...] + + + + + | [facility] | [address] | [place] [address] | | | SERVICES, CORE | JEAN [...] | | | LABORATORY | | | TURKMEN | | | SERVICES, | | | [...] + + + + + | [facility] | [address] [facility] | [place] [address] | | | SERVICES, CORE | [address] | | | + + + + + INTRAOPERATIVE NEURO MONITORING (07/08/2018) + + + | Narrative | Performed At | + + + | Patient Name: Qiana Parsons Rylan Date of : 1990 | | | Date of Test: 07/08/2018 Place | | | of Service: IP Intra Op [phone] [id number] INTRAOPERATIVE | | | NEURO MONITORING IOM: [...] min(s), with | | | [place]Y [address] - Short Latency EP's Upper AND Lower extremities | | | 88724 - Central Motor EP's Upper AND Lower [...] SOLUTION 13 | | | mL (accession [id number]), GADOTERATE MEGLUMINE 0.5 MMOL/ML (376.9 | | | MG/ML) INTRAVENOUS SOLUTION 13 mL (accession [id number]) FINDINGS: | | | Thoracic spine: There [...] (376.9 MG/ML) INTRAVENOUS SOLUTION 13 mL (accession [id number]), | | GADOTERATE MEGLUMINE 0.5 MMOL/ML (376.9 MG/ML) INTRAVENOUS SOLUTION 13 mL (accession | | [id number]) FINDINGS:Thoracic spine: There is abnormal T2 hyperintensity [...] SOLUTION 13 | | | mL (accession [id number]), GADOTERATE MEGLUMINE 0.5 MMOL/ML (376.9 | | | MG/ML) INTRAVENOUS SOLUTION 13 mL (accession [id number]) FINDINGS: | | | Thoracic spine: There [...] (376.9 MG/ML) INTRAVENOUS SOLUTION 13 mL (accession [id number]), | | GADOTERATE MEGLUMINE 0.5 MMOL/ML (376.9 MG/ML) INTRAVENOUS SOLUTION 13 mL (accession | | [id number]) FINDINGS:Thoracic spine: There is abnormal T2 hyperintensity [...] LABORATORY | [address] | [place] [address] | | | SERVICES, | [address] [...] LABORATORY | [address] | [place] [address] | | | SERVICES, | [address] [...] LABORATORY | [address] | [place] [address] | | | SERVICES, CORE | PARK [...] + + + + + | [facility] | [address] | [place] [address] | | | SERVICES, CORE | JEAN [...] | | | LABORATORY | | | TURKMEN | | | SERVICES, | | | [...] + + + | [facility] | [address] | [place] [address] | | | SERVICES, CORE | JEAN [...]
--- OUTSIDE RECORDS SUMMARY | ~2019-06-26 | XMS | Encounter Summary ---
Demographics + + + | Address | [address] | | | [place] [address] | + + + | Home Phone [...] Team Providers + +------+ + | Care Subcontract Administrator Name | Role | Phone | + [...] | | 2014 | anned | [address] | [phone] | | | | | [address] | | | | | | Mailcode: OP17A | | | | | | [facility] | | | | | | [place], [place] | | | | | | [address] | | | | | | [phone] | | | +--------+ + + + [...]
--- OUTSIDE RECORDS SUMMARY | ~2019-06-26 | XMS | Encounter Summary ---
Demographics + + + | Address | [address] | | | [place] [address] | + + + | Home Phone [...] Team Providers + +------+ + | Care Dairy Husbandry Worker Name | Role | Phone | [...] | [address] | [place], | | | | | Mailcode: CH6A | [place] [address] | | | | | [place], [place] | | | | | | [address] | | | | | | [phone] | | | +--------+ + + + [...] | + +--------+ + + + | REPEATER CHIEF CYTOLOGY (PAP) | Routin | 11/13/2016 | | Results for this | | | e | 2:53 PM | | procedure are in the | | | | PDT | | results section. | + +--------+ + + + documented in this encounter Results REPEATER CHIEF CYTOLOGY (PAP) (11/13/2016 2:53 PM PDT) + + + + + + | Component | Value | Ref Range | Performed | Pathologist | | | | | At | Signature | + + + + + + | REPEATER CHIEF | Patient:ANAID, | | TUALITY/HIL | | | CYTOLOGY | QIANA MODI | | [facility] | | | | | | | | | | | | | | | | | | | | | | | | | | | | Pathology Reports | | | | | | Accession: | | | | | | [id number] | | | | | | | [...] MD | | | | | | Laser Printing Operator | | | | | | Cytology [...] [facility] | [address] | [place] [address] | | | LAB | | | | + + + + + | [facility] | [address] | [place] [address] | | | LAB | | | [...] COMBO2 | | | | | | Assay([employer] | | | | | | [...] | | | | | | Mnemonic: [id number] | | | | | | DIAGNOSTICS | | | | | | [facility] [id number] | | | | | | [place] [facility], | | | | | | [place] [address]HCXGKZP Pau | | | | | | [...] | + + + + + | [facility] | [address] | [place] [address] | | | LAB | | | | + + + + + | [facility] | [address] | [place] [address] | | | LAB | | | | + + + + + documented in this encounter Visit Diagnoses Not on filedocumented in this encounter"
--- OUTSIDE RECORDS SUMMARY | ~2019-06-26 | XMS | Encounter Summary ---
Demographics + + + | Address | [address] | | | [place] [address] | + + + | Home Phone [...] Providers + +------+ + | Care Director Construction Services Name | Role | Phone | + +------+ + | Clare Mendoza MD | PCP | | + +------+ + Encounter Details +--------+ + + + + | Date | Type | Department | Care Team | Description | +--------+ + + + + | 01/26/ | Telephone | Spine Center at | Rajinder Luis MD | | | 2017 | | [facility] [address] | [address] | | | | | Ave Mailcode: | [place], [place] | | | | | [facility] | [address] | | | | | and [place], | [phone] | | | | | Building [address] | | | | | | [place], [place] | | | | | | [address] | | | | | | [phone] | | | +--------+ + + + [...]
--- OUTSIDE RECORDS SUMMARY | ~2019-06-26 | XMS | Encounter Summary ---
Demographics + + + | Address | [address] | | | [place] [address] | + + + | Home Phone [...] Team Providers + +------+ + | Care Comber Fixer Name | Role | Phone | + [...] | | | PHYSICAL | [place], | [facility] | | | | | THERAPY | [place] | for Health | | | | | REFERRAL | [address] | and Healing, | | | | | | Phone: | Building [address], | | | | | | [phone] | [address] | | | | | | Fax: | [place], [place] | | | | | | [phone] | [address] | | | | | | | Phone: | | | | | | | [phone] | | | | | | | Fax: | | | | | | | [phone] | +--------+--------+ + + + + Encounter Details +--------+ + + + + | Date | Type | Department | Care Team | Description | +--------+ + + + + | 09/14/ | Mail Handlers Supervisor | Neurosurgery at | Raegan Doss, | Spinal cord tumor | | 2015 | | [facility] [address] | PA-C [address] | (Primary Dx) | | | | Ave Mailcode: CH8N | Ave [place], [place] | | | | | [facility] | [address] | | | | | and [place], | [phone] | | | | | [facility] [place] | | | | | | Floor [place], [place] | | | | | | [address] | | | | | | [phone] | | | +--------+ + + + [...]
--- OUTSIDE RECORDS SUMMARY | ~2019-06-26 | XMS | Encounter Summary ---
Demographics + + + | Address | [address] | | | [place] [address] | + + + | Home Phone [...] Team Providers + +------+ + | Care Vacuum Spindle Sander Name | Role | Phone | + [...] spine tumor | PA-C [address] | | | | | Procedures | [address] | Rd | | | | | MRI SPINE | [place], Mailcode: | | | | | LUMBAR WWO | [place] | [address] | | | | | CONTRAST [place] | [address] | [place] | | | | | MRI, LUMBAR | Phone: | Research | | | | | SPINE COMBO | [phone] | [place] | | | | | | Fax: | [place], [place] | | | | | | [phone] | [address] | | | | | | | Phone: | | | | | | | [phone] | | | | | | | Fax: | | | | | | | [phone] | +--------+--------+ + + + + Reason [...] | | | | GA EST | [facility] | [place], [place] | | | | | PATIENT | Rd | [address] | | | | | LEVEL V | [place], [place] | Phone: | | | | | | [address] | [phone] | | | | | | | Fax: | | | | | | | [phone] | +--------+--------+ + + + + Encounter Details +--------+---------+ + + + | Date | Type | Department | Care Team | Description | +--------+---------+ + + + | 11/26/ | Office | Spine Center at | Raegan Doss, | Thoracic spine tumor | | 2018 | Visit | [facility] [address] | PA-C [address] | (Primary Dx) | | | | Ave Mailcode: | [place], [place] | | | | | [facility] | [address] | | | | | and [place], | [phone] | | | | | [place] [address] | | | | | | [place], [place] | | | | | | [address] | | | | | | [phone] | | | +--------+---------+ + + + [...] imaging but this was never received by [facility]. She has recently decided to move to [place] where her boyfriend lives. Ht 1.6 m [...] wwo in 1 year SPINE C[facility] AT [facility] [address] [place] [address] documented in this encounter Plan of [...]
--- OUTSIDE RECORDS SUMMARY | ~2019-06-26 | XMS | Encounter Summary ---
Demographics + + + | Address | [address] | | | [place] [address] | + + + | Home Phone [...] Team Providers + +------+ + | Care Cigarette Machine Operator Name | Role | Phone [...] | Neurological | Diagnoses | Emergency | Luis, | | | | Surgery | Spinal cord | Dept Hrc | Rajinder Fisher MD | | | | | tumor ED | [address] | [address] | | | | | f/u T5-10 | [address] | Ave | | | | | spinal cord | Rd [facility] | [place], [place] | | | | | tumor with | Hospital | [address] | | | | | right leg | [place], [place] | Phone: | | | | | weakness. | [address] | [phone] | | | | | | Phone: | Fax: | | | | | | [phone] | [phone] | +--------+--------+ + + + + Encounter Details +--------+---------+ + + + | Date | Type | Department | Care Team | Description | +--------+---------+ + + + | 02/15/ | Office | Neurosurgery at | Raegan Doss, | Spinal cord tumor | | 2016 | Visit | H [address] | [place] [address] | (Primary Dx) | | | | Ave Mailcode: CH8N | Ave [place], [place] | | | | | [facility] | [address] | | | | | and Healing, | [phone] | | | | | Building | | | | | | Floor [place], [place] | | | | | | [address] | | | | | | [phone] | | | +--------+---------+ + + + [...] month), but after h aving her daughter, Joey's, first birthday republican in 11 days. Ht 1.6 m (5' [...] will be after her daughter's first birthday republican in . 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
--- OUTSIDE RECORDS SUMMARY | ~2019-06-26 | XMS | Encounter Summary ---
Demographics + + + | Address | [address] | | | [place] [address] | + + + | Home Phone [...] Team Providers + +------+ + | Care Probate Clerk Name | Role | Phone | [...] | | | | tumor | [address] | | | | | | Procedures | [address] | | | | | | OCCUPATIONAL | [facility], | | | | | | THERAPY | [place] | | | | | | REFERRAL | [address] | | | | | | | Phone: | | | | | | | [phone] | | | | | | | Fax: | | | | | | | [phone] | | +--------+--------+ + + + + [...] | | | | tumor | [address] | | | | | | Procedures | [address] | | | | | | PHYSICAL | [place], | | | | | | THERAPY | [place] | | | | | | REFERRAL | [address] | | | | | | | Phone: | | | | | | | [phone] | | | | | | | Fax: | | | | | | | [phone] | | +--------+--------+ + + + + [...] + + | 09/08/ | Hospital | [facility] [address] | Rajinder Luis MD | | | 2016 - | Encounter | [address] | [address] | | | | | [id number] [facility] | [place], [place] | | | 09/14/ | | [facility], | [address] | | | 2015 | | [place] [address] | [phone] | | | | | [phone] | | | +--------+ + + + [...] Rajinder Luis MD PCP: PATRIC Todd Service: [facility] Neurosurgery Diagnoses Principal Final Diagnosis: 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 Luis here at [facility]. She has residual right lower extremity w [...] on the 8t h floor at the [facility] on the [facility] located at [address], [place] [address]. Please call [phone] if you have any questions or concerns [...] 11:40 AM Discharging Attending: Rajinder Luis MD [facility] [address] [address] [address] documented in this encounter Progress Notes Raegan [...] 2324 09/14/15 1028 GLU 102* 136* 104* [id number] Current Medications: acetaminophen (TYLENOL) tablet 650 mg, [...] Routine wound care. Okay to shower/shampoo daily. [place] to be removed at 2 weeks post-op. [...] they have bed availability. Raegan Doss PA-C [facility] [address] [address]/[place] [address] dams, PHILIPPE Mena - 09/14/2015 8:57 AM [...] edges approximated well, no erythema, dry, intact. [place] in place. Sensation: LT sensation intact above [...] Ref Range Status 07/12/2015 Negative Negative Final [id number] Current Medications: acetaminophen (TYLENOL) tablet 650 mg, [...] Routine wound care. Okay to shower/shampoo daily. [place] to be removed at 2 weeks post-op. [...] effect. Will plan to stop ISS at [place]. ID/Heme: Afebrile. Leukocytosis at 15 today - possibly d/t steroids. Will cont to follow an d trend. DVT ppx: SCDs while in bed. Lovenox 40mg qHS for DVT ppx. Dispo: Appreciate CM involvement - application pending for WALLBACK. Raegan Doss PA-C [facility] [address] [address] [address] [facility] - 09/13/2015 10:26 [...] in place, draining clear yellow urine. Labs: [id number] Current Medications: acetaminophen (TYLENOL) tablet 650 mg, [...] Routine wound care. Okay to shower/shampoo daily. [place] to be removed at 2 weeks post-op. [...] once patient is able to ambulate to [facility]. Musculoskeletal/skin: Routine decubitus ulcer prevention. Appreciate PT/OT involvement. Endo: CBGs reasonable. 9U ISS used last 24 hours. Mild hyperglycemia likely 2/2 steroid eff ect. Will plan to stop ISS at [place]. ID/Heme: Afebrile. Will check CBC tomorrow AM. DVT ppx: SCDs while in bed. Lovenox 40mg qHS for DVT ppx. Dispo: Appreciate CM involvement - application pending for WALLBACK. Raegan Doss PA-C [facility] [address] [facility] [address] Cesar Cox MD - 12/2015 11:40 AM [...] Care Unit Attending Progress Note Attending Pager #[phone] ICU Admission Reason Most Recent Value ICU [...] tions/additions as noted. Date of Service: 09/11/2015 [facility] DEPARTMENT: ANE ICU NEURO Place of Service:- Inpatient CSN: [id number] Suggested Modifier: GC - Resident Involved Suggested CPT: TO DATE PULLER DOS 09/11/2015 Author:Lesly Branch MD [address] [address] [facility], Yokasta Fleming MD - 8:28 AM [...] - blackburn status Please page adult resident foundation director [id number] with questions Yokasta Randall MD PGY-2, Neurosurgery 09/11/2015 8:28 [facility] 12:05 PM [facility] NEUROSURGERY PROGRESS NOTE Author: Ngoc Hernandez MD [...] Care Unit Attending Progress Note Attending Pager #[phone] ICU Admission Reason Most Recent Value ICU [...] on counseling and coordination of care.Seen with PA/BUSINESS DEVELOPMENT ANALYST Mannie. Please see t heir note for details. I reviewed the documented findings, all data and the recent imaging a vailable. Date of Service: 09/10/2015 [facility] DEPARTMENT: [facility] ICU NEURO Place of Service:- Inpatient CSN: [id number] Suggested Modifier: GC - Resident Involved Suggested CPT: TO DATE PULLER DOS 09/10/2015 Author:Stephie Anders MD [address] [address] [place] [address] Tristen Hein ACN P - 09/10/2015 7:10 AM PST . Neuroscience Intensive Care Unit Team Progress Note NSICU ASSIGNED #[id number] ICU Admission Reason Most Recent Value ICU [...] e. Date of Service: 09/10/2015 AIXA Mahajan [facility] DEPARTMENT: [facility] ICU NEURO Place of Service:- Inpatient CSN: [id number] Suggested Modifier: None Suggested CPT: TO DATE PULLER DOS 09/10/2015 Author:AIXA Mahajan [address] [address] [place] [address] LEFilipe Pabon MD - 09/10/2015 2:58 AM [facility] NEUROSURGERY POST OPERATIVE CHECK Author: Filipe Nelson [...] bed Filipe Nelson MD Neurosurgery Resident Pager #[phone] documented in this en counter Plan of [...] | + + + + + | [facility] | [address] | [place] [address] | | | SERVICES, CORE | JEAN [...] TILLMAN | [address] | [place] [address] | | | NINO LEONARD | PARK [...] | + + + + + | [facility] | [address] | [place] [address] | | | SERVICES, CORE | JEAN [...] | + + + + + | [facility] | [address] | [place] [address] | | | SERVICES, CORE | JEAN [...] (H) | 60 - 99 mg/dL | [facility] - | | | GLUCOSE, | | [...] BRAMBILA | [address] | [place], [place] | | | JAVIER POINT OF CARE | [address] | [address] | | | TESTS | | | [...] | + + + + + | [facility] | [address] | [place] [address] | | | SERVICES, CORE | JEAN [...] (H) | 60 - 99 mg/dL | [facility] - | | | GLUCOSE, | | [...] BRAMBILA | [address] | [place], [place] | | | ZELALEM HERRERA OF NURIA | [address] | [address] | | | TESTS | | | [...] MARQUAM | [address] | [place], [place] | | | JAVIER POINT OF CARE | [address] | [address] | | | TESTS | | | [...] MARCEAM | [address] | [place], [place] | | | ZELALEM HERRERA OF CARE | [address] | [address] | | | TESTS | | | [...] BRAMBILA | [address] | [place], [place] | | | ZELALEM HERRERA OF NURIA | [address] | [address] | | | TESTS | | | [...] MARQUAM | [address] | [place], [place] | | | JAVIER POINT OF CARE | [address] | [address] | | | TESTS | | | [...] PATTY | [address] | [place], [place] | | | ZELALEM HERRERA OF CARE | [address] | [address] | | | TESTS | | | [...] BRAMBILA | [address] | [place], [place] | | | ZELALEM HERRERA OF NURIA | [address] | [address] | | | TESTS | | | [...] MARQUAM | [address] | [place], [place] | | | ZELALEM HERRERA OF CARE | [address] | [address] | | | TESTS | | | [...] MARCEAM | [address] | [place], [place] | | | ZELALEM HERRERA OF CARE | [address] | [address] | | | TESTS | | | [...] + + + | MOISE BRAMBILA | [address] | [place], [place] | | | ZELALEM HERRERA OF NURIA | [address] | [address] | | | TESTS | | | [...] MARQUAM | [address] | [place], [place] | | | ZELALEM HERRERA OF CARE | [address] | [address] | | | TESTS | | | [...] PATTY | [address] | [place], [place] | | | JAVIER POINT OF CARE | [address] | [address] | | | TESTS | | | [...] + + + | MOISE BRAMBILA | [address] | [place], [place] | | | ZELALEM HERRERA OF NURIA | [address] | [address] | | | TESTS | | | [...] MARQUAM | [address] | [place], [place] | | | ZELALEM HERRERA OF CARE | [address] | [address] | | | TESTS | | | [...] | | + +---------+ + + | [facility] DEPARTMENT OF | | | | | [...] (H) | 60 - 99 mg/dL | [facility] - | | | GLUCOSE, | | [...] + + | MOISE BRAMBILA | [address] [facility] [facility] [address] | [place], [place] | | | [facility] | [address] | [address] | | | TESTS | | | | + + + + + OPERATION RECORD (09/10/2015 10:32 AM PST) + + | Transcriptions | + + | Rajinder Luis MD - 09/10/2015 8:47 AM PST Date of Service: 09/09/2015 Attending | | Surgeon: Rajinder Luis MD Assembler Latches And Springs(s): Jere Story MD. | | Preoperative Diagnoses: [...] 2015 by | | Toby here at [facility]. She has residual right lower extremity weakness, [...] General endotracheal [facility]. | | Occlusive dressings were placed [...] We | | attempted to use the [employer] ultrasonic aspirator, but the durotomy was fairly [...] carefully transferred | | [facility]. She was extubated and she was taken to the recovery area | | in stable condition. At the end of the case, all instrument, sponge, needle counts were | | correct in 2 iterations.IRajinder MD was scrubbed and actively participated | | performing the critical portions of the operation.ZAMZAM Henry/MODLDD: | | 09/10/2015 08:01:47DT: 09/10/2015 08:47:03Job #: [id number] | + + PROCEDURE NOTE (09/10/2015 10:25 [...] BRAMBILA | [address] | [place], [place] | | | ZELALEM HERRERA OF CARE | [address] | [address] | | | TESTS | | | [...] LABORATORY | [address] | [place] [address] | | | SERVICES, CORE | PARK [...] | | | LABORATORY | | | GREEK | | | SERVICES, | | | [...] | + + + + + | [facility] [employer] | [address] | [place] [address] | | | SERVICES, NINO | JEAN [...] | + + + + + | [employer] | [address] | [place] [address] | | | SERVICES, NINO | JEAN [...] [facility] | [address] | [place] [address] | | | SERVICES, | [address] [...] | + + + + + | [facility] | [address] | [place] [address] | | | SERVICES, | [address] [...] | + + + + + | [facility] | [address] | [place] [address] | | | SERVICES, CORE | JEAN [...] [facility] | [address] | [place] [address] | | | SERVICES, CORE | PARK [...] LABORATORY | [address] | [place] [address] | | | SERVICES, CORE | PARK [...] | | | LABORATORY | | | GREEK | | | SERVICES, | | | [...] the MDRD equation recommended by the | [facility] | | National Kidney Disease Education Program. [...] | + + + + + | [facility] | [address] | [place] [address] | | | SERVICES, [facility] | JEAN CARLOS GUZMAN | | | + + + + + INTRAOPERATIVE NEURO MONITORING (09/09/2015) + + + | Narrative | Performed At | + + + | Patient Name: Matt Fagan Date of : 1990 | | | Date of Test: 09/09/2015 Place of | | | Service: IP Intra Op [id number] INTRAOPERATIVE NEURO | | | MONITORING History: [...] | | Department of Neurology Suggested CPT: 62903 - IOM Remote x 3 | | | hr(s) 52405 - Central Motor EP's Upper AND Lower [...] resectiontumor | | | | | | ([id number]). No high | | | | | [...] | | | | | | Block J6Cyezbifzyg: | | | | | | Tumor cells | | | | | | Marker Result | | | | | | CommentGlial | | | | | | Fibrillary Acidic | | | | | | Protein | | | | | | PositiveVimentin | | | | | | BbofvtfkDH23 % | | | | | | [...] Epic: | | | | | | [id number] = spinal | | | | | [...] [facility] | [address] | [place] [address] | | | PATHOLOGY | [address] [...]
--- OUTSIDE RECORDS SUMMARY | ~2019-06-26 | XMS | Encounter Summary ---
Demographics + + + | Address | [address] | | | [place] [address] | + + + | Home Phone [...] Team Providers + +------+ + | Care Shellfish Processing Laborer Name | Role | Phone | + +------+ + | No Pcp Per Patient | PCP | Unavailable | + +------+ + Encounter Details +--------+ + + + + | Date | Type | Department | Care Team | Description | +--------+ + + + + | 11/26/ | Procedure | Radiology/Imaging | | | | 2017 | Pass | Lab at [facility] [address] | | | | | | [address] Mailcode: | | | | | | CH3G | | | | | | Health and Healing, | | | | | | [facility] 1, 3rd | | | | | | Floor [place], [place] | | | | | | [address] | | | | | | [phone] | | | +--------+ + + + [...]
--- OUTSIDE RECORDS SUMMARY | ~2019-06-26 | XMS | Encounter Summary ---
Demographics + + + | Address | [address] | | | [place] [address] | + + + | Home Phone [...] + +------+ + | Care Director Of Business Development Name | Role | Phone | + [...] | | | | | | [facility] | | | | | | Hospital Admitting | | | | | | Desk Located on the | | | | | | 9th floor | | | | | | [place], [place] | | | | | | [address] | | | +--------+ + + + [...]
--- OUTSIDE RECORDS SUMMARY | ~2019-06-26 | XMS | Encounter Summary ---
Demographics + + + | Address | [address] | | | [place] [address] | + + + | Home Phone | | + + + | Preferred Language | Unknown | + + + | Marital Status | Single | + + + | Moravian Affiliation | NON | + + + [...] Team Providers + +------+ + | Care Manual Control Auger Press Operator Name | Role | Phone [...] | | | Shwetha Mailcode: | [place], [place] | | | | | [facility] | [address] | | | | | and Healing, | [phone] | | | | | [address] [address] | | | | | | [place], [place] | | | | | | [address] | | | | | | [phone] | | | +--------+ + + + [...] COMBO2 | | | | | | Assay([employer] 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
--- OUTSIDE RECORDS SUMMARY | ~2019-06-26 | XMS | Encounter Summary ---
Demographics + + + | Address | [address] | | | [place] [address] | + + + | Home Phone [...] Team Providers + +------+ + | Care Street Light Servicer Name | Role | Phone | + +------+ + | Tiff ChapinP | PCP | | + +------+ + Encounter Details +--------+ + + + + | Date | Type | Department | Care Team | Description | +--------+ + + + + | 07/13/ | Cloth Doubling Machine Operator | Neurosurgery at | Raegan Doss, | | | 2015 | | [facility] [address] | PA-C [address] | | | | | Shwetha Mailcode: CH8N | Ave [place], [place] | | | | | [facility] | [address] | | | | | and [facility], | [phone] | | | | | [facility] | | | | | | Floor [facility] [place] | | | | | | [address] | | | | | | [phone] | | | +--------+ + + + [...]
--- OUTSIDE RECORDS SUMMARY | ~2019-06-26 | XMS | Encounter Summary ---
Demographics + + + | Address | [address] | | | [place] [address] | + + + | Home Phone [...] Providers + +------+ + | Care Assistant Professor Of Music Name | Role | Phone | + [...] | Event | [address] | [address] | | | | | [facility] | [address] | | | | | Hospital Admitting | [place], [place] | | | | | Desk Located on the | [address] | | | | | 9th floor | [phone] | | | | | [place], [place] | | | | | | [address] | Raegan Kaufman, | | | | | | ,PhD [address] | | | | | | [address] | | | | | | [place], [place] | | | | | | [address] | | | | | | [phone] | | | | | | | [...]
--- OUTSIDE RECORDS SUMMARY | ~2019-06-26 | XMS | Encounter Summary ---
Demographics + + + | Address | [address] | | | [place] [address] | + + + | Home Phone [...] Team Providers + +------+ + | Care Chainstitch Binder Name | Role | Phone | + +------+ + | No Pcp Per Patient | PCP | Unavailable | + +------+ + Encounter Details +--------+ + + + + | Date | Type | Department | Care Team | Description | +--------+ + + + + | 10/01/ | Procedure | Diagnostic Imaging | | | | 2018 | Pass | Services at [facility] | | | | | | [address] | | | | | | Marla Abdul Mailcode: | | | | | | [address] | | | | | | [facility] | | | | | | [place], [place] | | | | | | [address] | | | | | | [phone] | | | +--------+ + + + [...]
--- OUTSIDE RECORDS SUMMARY | ~2019-06-26 | XMS | Encounter Summary ---
Demographics + + + | Address | [address] | | | [place] [address] | + + + | Home Phone [...] Team Providers + +------+ + | Care Station Baggage Agent Name | Role | Phone | + +------+ + | No Pcp Per Patient | PCP | Unavailable | + +------+ + Encounter Details +--------+ + + + + | Date | Type | Department | Care Team | Description | +--------+ + + + + | 02/14/ | Procedure | Radiology/Imaging | | | | 2017 | Pass | Lab at [facility] [address] | | | | | | [address] Mailcode: | | | | | | CH3G [facility] | | | | | | Health and Healing, | | | | | | [facility] 1, 3rd | | | | | | Floor [place], [place] | | | | | | [address] | | | | | | [phone] | | | +--------+ + + + [...]
--- OUTSIDE RECORDS SUMMARY | ~2019-06-26 | XMS | Encounter Summary ---
Demographics + + + | Address | [address] | | | [place] [address] | + + + | Home Phone | | + + + | Preferred Language | Unknown | + + + | Marital Status | Unknown | + + + | Zoroastrian Affiliation | Unknown | + + + | Race | Unknown | + + + | Ethnic Group | Unknown | + + + Author + + + | Author | [facility] | | | and [place] | + + + | Organization | [facility] | | | [...] [place], [place] | | | | | [address] | | + + + + + Care Team Providers + +------+ + | Care Oral And Maxillofacial Surgery Name | Role | Phone | + [...] [place] | | | | | | [address] | | | | | | [phone] | | | +--------+ + + + [...] T?MRN: | | | | | | [id number] | | | [id number] | | | D Care | | [...] | | | lo, | | | [place] | | | ia | | | [...] ARMOND | | | | | | AWLLACE | | | IUS | | | [...] H. | | | | | | [place]. | | | [place] | | | [...]
--- OUTSIDE RECORDS SUMMARY | ~2019-06-26 | XMS | Encounter Summary ---
Demographics + + + | Address | [address] | | | [place] [address] | + + + | Home Phone [...] Team Providers + +------+ + | Care Wheel Presser Name | Role | Phone | + +------+ + | No Pcp Per Patient | PCP | Unavailable | + +------+ + Encounter Details +--------+ + + + + | Date | Type | Department | Care Team | Description | +--------+ + + + + | 01/11/ | Procedure | Diagnostic Imaging | | | | 2017 | Pass | Services at [facility] | | | | | | [address] | | | | | | Marla Abdul Mailcode: | | | | | | [address] | | | | | | [facility] | | | | | | [place], [place] | | | | | | [address] | | | | | | [phone] | | | +--------+ + + + [...]
--- OUTSIDE RECORDS SUMMARY | ~2019-06-26 | XMS | Encounter Summary ---
Demographics + + + | Address | [address] | | | [place] [address] | + + + | Home Phone [...] Team Providers + +------+ + | Care Munitions Handler Supervisor Name | Role | Phone | [...] | | | | tumor | [address] | | | | | | Procedures | [address] | | | | | | MRI SPINE | [place], | | | | | | THORACIC WWO | [place] | | | | | | CONTRAST | [address] | | | | | | | Phone: | | | | | | | [phone] | | | | | | | Fax: | | | | | | | [phone] | | +--------+--------+ + + + + [...] | | | | Rd [facility] | [place], [place] | | | | | | Hospital | [address] | | | | | | [place], [place] | Phone: | | | | | | [address] | [phone] | | | | | | Phone: | Fax: | | | | | | [phone] | [phone] | +--------+--------+ + + + + Encounter Details +--------+---------+ + + + | Date | Type | Department | Care Team | Description | +--------+---------+ + + + | 10/19/ | Office | Neurosurgery at | Raegan Doss, | Spinal cord tumor | | 2016 | Visit | [facility] [address] | PAAndrewC [address] | (Primary Dx) | | | | Ave Mailcode: CH8N | [place], [place] | | | | | [place] for [facility] | [address] | | | | | and Healing, | [phone] | | | | | | | | | | | Floor [place], [place] | | | | | | [address] | | | | | | [phone] | | | +--------+---------+ + + + [...] cord tumor on 09/09/15. She discharged to [facility] for 2-3 weeks a nd make [...] with her boyfriend and is moving to [facility] next month. She denies having any wound [...] MRI wwo prior -Follow up with [facility] outpatient therapy as scheduled NEUROSURGERY AT [facility] [address] Mailcode: [address] [place] [address] documented in this encounter Plan [...]
--- OUTSIDE RECORDS SUMMARY | ~2019-06-26 | XMS | Encounter Summary ---
Demographics + + + | Address | [address] | | | [place] [address] | + + + | Home Phone [...] Phone | + + +---------+ + | Concecpion To | ECON | Unknown | | + + +---------+ + | Judit Fagan | ECON | Unknown | | + + +---------+ + Care Team Providers + +------+ + | Care Carbonizer Tester Name | Role | Phone | [...] | LAMINECTOMIES | | | | [facility] | [place], [place] | | | | | Hospital Admitting | [address] | | | | | Desk Located on the | [phone] | | | | | 9th floor | | | | | | [place], [place] | | | | | | [address] | | | +--------+---------+ + + + [...] MD PCP: PATRIC Todd Service: [facility] Neurosurgery Diagnoses Principal Final Diagnosis: 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 Luis here at [facility]. She has residual right lower extremity w [...] was felt appropriate for discharge to [facility] ([facility]) on 09/15/2015, a nd the patient and/or [...] on the 8t h floor at the [facility] on the [facility] located at [address] [place] [address]. Please call [phone] if you have any questions or concerns [...] 11:40 AM Discharging Attending: Rajinder Luis MD [facility] [address]K [address] [place] [address] documented in this encounter Progress Notes Raegan [...] Thoracic incision: flat, dry, no erythema, intact. Burlington present. Sensation: LT sensation intact intact above [...] 2324 09/14/15 1028 GLU 102* 136* 104* [id number] Current Medications: acetaminophen (TYLENOL) tablet 650 mg, [...] Routine wound care. Okay to shower/shampoo daily. Burlington to be removed at 2 weeks post-op. [...] they have bed availability. Raegan Doss PA-C [facility] [address] [address] [address] dams, PHILIPPE Mena - 09/14/2015 8:57 AM [...] edges approximated well, no erythema, dry, intact. Burlington in place. Sensation: LT sensation intact above [...] Ref Range Status 07/12/2015 Negative Negative Final [id number] Current Medications: acetaminophen (TYLENOL) tablet 650 mg, [...] Appreciate CM involvement - application pending for [facility]. Raegan Doss PA-C [facility] [address] [address] [address] dams, PHILIPPE Mena - 09/13/2015 10:26 AM [...] in place, draining clear yellow urine. Labs: [id number] Current Medications: acetaminophen (TYLENOL) tablet 650 mg, [...] Routine wound care. Okay to shower/shampoo daily. Burlington to be removed at 2 weeks post-op. [...] ect. Will plan to stop ISS at [place]. ID/Heme: Afebrile. Will check CBC tomorrow AM. DVT ppx: SCDs while in bed. Lovenox 40mg qHS for DVT ppx. Dispo: Appreciate CM involvement - application pending for TRISTON. Raegan Doss PA-C [facility] 10Q [address] [address] [place] [address] Cesar Cox MD - 12/2015 11:40 AM [...] Care Unit Attending Progress Note Attending Pager #[phone] ICU Admission Reason Most Recent Value ICU [...] tions/additions as noted. Date of Service: 09/11/2015 [facility] DEPARTMENT: ANE ICU NEURO Place of Service:- Inpatient CSN: [id number] Suggested Modifier: GC - Resident Involved Suggested CPT: TO ENVIRONMENTAL TECH DOS 09/11/2015 Author:Lesly Branch MD [address] [place] [address] [facility], Yokasta Fleming MD - [...] c/d/i. No surrounding erythema, swelling or drainage. Burlington in place Endorses T12 sensory level Labs: [...] - blackburn status Please page adult resident electrophonic engineer [phone] with questions Yokasta Randall MD PGY-2, Neurosurgery [...] Care Unit Attending Progress Note Attending Pager #[phone] ICU Admission Reason Most Recent Value ICU [...] on counseling and coordination of care.Seen with PA/HIGH SCHOOL TEACHER Mannie. Please see t heir note for details. I reviewed the documented findings, all data and the recent imaging a parisailable. Date of Service: 09/10/2015 [facility] DEPARTMENT: ANE ICU NEURO Place of Service:- Inpatient CSN: [id number] Suggested Modifier: GC - Resident Involved Suggested CPT: TO ENVIRONMENTAL TECH DOS 09/10/2015 Author:Stephie Anders MD [address] [address] Tristen Hein ACN P - 09/10/2015 7:10 AM PST . Neuroscience Intensive Care Unit Team Progress Note NSICU ASSIGNED #[id number] ICU Admission Reason Most Recent Value ICU [...] e. Date of Service: 09/10/2015 AIXA Mahajan [facility] DEPARTMENT: [facility] ICU NEURO Place of Service:- Inpatient CSN: [id number] Suggested Modifier: None Suggested CPT: TO ENVIRONMENTAL TECH DOS 09/10/2015 Author:AIXA Mahajan [address] [address] [facility] - 09/10/2015 2:58 AM [facility] NEUROSURGERY POST OPERATIVE CHECK Author: [...] bed Filipe Nelson MD Neurosurgery Resident Pager #[phone] documented in this en counter Plan of [...] LABORATORY | [address] | [place] [address] | | | SERVICES, CORE | PARK [...] LABORATORY | [address] | [place] [address] | | | SERVICES, CORE | PARK [...] LABORATORY | [address] | [place] [address] | | | NINO LEONARD | JEAN [...] | + + + + + | [facility] | [address] | [place] [address] | | | SERVICES, CORE | JEAN [...] [facility] | [address] | [place], [place] | | | HILL, POINT OF CARE | [address] | [address] | | | TESTS | | | [...] [place] | [address] | [place] [address] | | | SERVICES, NINO | PARK [...] [place] | [address] | [place], [place] | | | ZELALEM HERRERA OF CARE | [facility] | [address] | | | TESTS | | | [...] (H) | 60 - 99 mg/dL | [facility] - | | | GLUCOSE, [...] [place] | [address] | [place], [place] | | | JAVIER POINT OF CARE | [address] | [address] | | | TESTS | | | [...] BR[facility]BILA | [address] | [place], [place] | | | ZELALEM HERRERA OF NURIA | [facility] | [address] | | | TESTS | | | [...] [place]QU[place] | [address] | [place], [place] | | | ZELALEM HERRERA OF CARE | [facility] | [address] | | | TESTS | | | [...] (H) | 60 - 99 mg/dL | [facility] - | | | GLUCOSE, [...] MARQUAM | [address] | [place], [place] | | | JAVIER POINT OF [facility] | [address] | [address] | | | TESTS | | | [...] BRAMBILA | [address] | [place], [place] | | | ZELALEM HERRERA OF NURIA | [facility] | [address] | | | TESTS | | | [...] MARQUAM | [address] | [place], [place] | | | ZELALEM HERRERA OF CARE | [address] | [address] | | | TESTS | | | [...] (H) | 60 - 99 mg/dL | [facility] - | | | GLUCOSE, [...] MARQUAM | [address] | [place], [place] | | | JAVIER POINT OF [facility] | [address] | [address] | | | TESTS | | | [...] BRAMBILA | [address] | [place], [place] | | | ZELALEM HERRERA OF NURIA | [facility] | [address] | | | TESTS | | | [...] MARQUAM | [address] | [place], [place] | | | ZELALEM HERRERA OF NURIA | [facility] | [address] | | | TESTS | | | [...] (H) | 60 - 99 mg/dL | [facility] - | | | GLUCOSE, [...] MARQUAM | [address] | [place], [place] | | | ZELALEM HERRERA OF [facility] | [address] | [address] | | | TESTS | | | [...] BRAMBILA | [address] | [place], [place] | | | ZELALEM HERRERA OF CARE | [facility] | [address] | | | TESTS | | | [...] MARCEAM | [address] | [place], [place] | | | ZELALEM HERRERA OF NURIA | [facility] | [address] | | | TESTS | | | [...] (H) | 60 - 99 mg/dL | [facility] - | | | GLUCOSE, [...] + + + | [facility] | [address] | [place], [place] | | | ZELALEM HERRERA OF [facility] | [address] | [address] | | | TESTS | | | [...] | | + +---------+ + + | [facility] DEPARTMENT OF | | | [...] PATTY | [address] | [place], [place] | | | ZELALEM HERRERA OF NURIA | [address] | [address] | | | TESTS | | | | + + + + + OPERATION RECORD (09/10/2015 10:32 AM PST) + + | Transcriptions | + + | Rajinder Luis MD - 09/10/2015 8:47 AM PST Date of Service: 09/09/2015 Attending | | Surgeon: Rajinder Luis MD Icu Nurse(s): Jere Story MD. | | Preoperative Diagnoses: [...] 2015 by | | Toby here at [facility]. She has residual right lower extremity weakness, [...] General endotracheal anesthesia was induced on the [facility]. | | Occlusive dressings were placed [...] We | | attempted to use the Loopporta ultrasonic aspirator, but the durotomy was fairly [...] carefully transferred | | back to the [facility]. She was extubated and she was taken to the recovery area | | in stable condition. At the end of the case, all instrument, sponge, needle counts were | | correct in 2 iterations.I, Rajinder Luis MD was scrubbed and actively participated | | performing the critical portions of the operation.WAYNE HenryL/MODLDD: | | 09/10/2015 08:01:47DT: 09/10/2015 08:47:03Job #: [id number] | + + PROCEDURE NOTE (09/10/2015 10:25 [...] MARQUAM | [address] | [place], [place] | | | JAVIER POINT OF CARE | [address] | [address] | | | TESTS | | | [...] | + + + + + | [facility] | [address] | [place] [address] | | | SERVICES, CORE | [address]AN CAR[address] | | | + + + + [...] | | | LABORATORY | | | SPANISH | | | SERVICES, | | | [...] the MDRD equation recommended by the | [facility] | | National Kidney Disease [...] | + + + + + | [facility] | [address] | [place] [address] | | | SERVICES, NINO | JEAN [...] | [facility] | [address] | [place] [address] | | | SERVICES, CORE | PARK [...] | + + + + + | [facility] | [address] | [place] [address] | | | SERVICES, | [address] [...] [facility] | [address] | [place] [address] | | | SERVICES, | [address] [...] LABORATORY | [address] | [place] [address] | | | SERVICES, CORE | PARK [...] + + + | [facility] | [address] | [place] [address] | | | SERVICES, NINO | JEAN [...] | + + + + + | [facility] | [address] | [place] [address] | | | NINO LEONARD | JEAN [...] | | | LABORATORY | | | SPANISH | | | SERVICES, | | | [...] | + + + + + | [facility] | [address] | [place] [address] | | | SERVICES, CORE | [address] | | | + + + + + INTRAOPERATIVE NEURO MONITORING (09/09/2015) + + + | Narrative | Performed At | + + + | Patient Name: Matt Fagan Date of : 1990 | | | Date of Test: 09/09/2015 Place of | | | Service: IP Intra Op ([id number] INTRAOPERATIVE NEURO | | | MONITORING History: [...] | | Department of Neurology Suggested CPT: 37621 - IOM Remote x 3 | | | hr(s) 47806 - Central Motor EP's Upper AND Lower [...] resectiontumor | | | | | | ([id number]). No high | | | | | [...] | | | | | | Block [id number]: | | | | | | Tumor cells | | | | | | Marker Result | | | | | | CommentGlial | | | | | | Fibrillary Acidic | | | | | | Protein | | | | | | PositiveVimentin | | | | | | [id number] % | | | | | | [...] Epic: | | | | | | [id number] = spinal | | | | | [...] + + + + | [facility] | [address] | [place] [address] | | | PATHOLOGY | [address] [...]
--- OUTSIDE RECORDS SUMMARY | ~2019-06-26 | XMS | Encounter Summary ---
Demographics + + + | Address | [address] | | | [place] [address] | + + + | Home Phone | | + + + | Preferred Language | Unknown | + + + | Marital Status | Unknown | + + + | Anabaptist Affiliation | Unknown | + + + | Race | Unknown | + + + | Ethnic Group | Unknown | + + + Author + + + | Author | [facility] | | | and [place] | + + + | Organization | [facility] | | | and [...] [place], [place] | | | | | [address] | | + + + + + Care Team Providers + +------+ + | Care Nut Picker Name | Role | Phone | [...] [place] | | | | | | [address] | | | | | | [phone] | | | +--------+ + + + [...] T?MRN: | | | | | | [id number] | | | [id number] | | | D Care | | | | | | Guidel | | | calos | | | from | | | [place] | | | | | | Health [...] | | | lo, | | | [place] | | | [place] | | | [...] | | | 2017 | | | [place] | | | | | | Health [...] H. | | | | | | [place]. | | | [place] | | | [...] | | | 2017 | | | [place] | | | | | | Health [...] Visits | | | | | | [place] | | | | | | Health [...]
--- OUTSIDE RECORDS SUMMARY | ~2019-06-26 | XMS | Encounter Summary ---
Demographics + + + | Address | [address] | | | [place] [address] | + + + | Home Phone [...] Providers + +------+ + | Care Manager Stars Name | Role | Phone | + [...] | | | PHYSICAL | [place], | [facility] | | | | | THERAPY | [place] | for Health | | | | | REFERRAL | [address] | and Healing, | | | | | | Phone: | Building [address], | | | | | | [phone] | [address] | | | | | | Fax: | [place], [place] | | | | | | [phone] | [address] | | | | | | | Phone: | | | | | | | [phone] | | | | | | | Fax: | | | | | | | [phone] | +--------+--------+ + + + + Encounter Details +--------+---------+ + + + | Date | Type | Department | Care Team | Description | +--------+---------+ + + + | 10/19/ | Office | [facility] | Myrna Castelan, | Spinal cord tumor | | 2016 | Visit | Therapy Services at | DPT | (Primary Dx) | | | | [facility] | | | | | | [address] | | | | | | Mailcode: CH3P | | | | | | [facility] | | | | | | and Healing, | | | | | | [address] | | | | | | Floor [place], [place] | | | | | | [address] | | | | | | [phone] | | | +--------+---------+ + + + [...] D49.7 Spinal cord tumor Insurance: Payor: 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 female who has been referred to Outpatient Physical Therapy services due to concerns regarding: balance problems, weaknes s, fatigue and decreased mobility. Matt presents to outpatient physical therapy following most recent admission to [facility] following tumor expansion resulting in surgery on [...] female who was most recently discharged from [facility] following t umor expansion and T6-10 hemilaminectomies [...] physical therapy when she relocat to the [facility]. Impairments are limiting pt's ability to participate in basic ADLs, work, and recreational activities without restrictions. Matt requires services that can be safely and effectivel y performed only by a qualified therapist to address the above mentioned impairments and act ivity limitation. 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 Myrna Castelan DPT [facility] 1ST FLOOR [address] [place] Mailcode: [address] [address] Payment Authorization Request and Status Report: [facility] Outpatient Therapy Center Contact Contact Billing Provider Number: [id number] Therapist Provider Number: [id number] Referring Prescribing Practitioner: Raegan Doss PA-C Primary Diagnosis/ICD-9: ICD-10-CM ICD-9-CM 1. Spinal cord tumor D49.7 239.7 [place] PHYS THERAPY EVALUATION [place] GAIT TRAINING THERAPY Prescribing Practitioner Provider Number: [facility] Physician [id number]. Outside [facility] Physician: _ Proposed PA Start Date: Date PA is approved. Procedure Codes: Physical Therapy Evaluation 46507 Therapeutic Exercise 57228 Therapeutic Activities 97954 Gait Training 69576 Neuromuscular Reeducation 68995 Modalities Codes: None Minutes per session: 45 [...] | + +--------+ + + + | [place] GAIT TRAINING | Routin | 10/20/2015 | Spinal cord tumor | | | THERAPY | e | 4:06 PM | | | | | | PDT | | | + +--------+ + + + | [place] PHYS THERAPY | Routin | 10/20/2015 | [...]
--- OUTSIDE RECORDS SUMMARY | ~2019-06-26 | XMS | Encounter Summary ---
Demographics + + + | Address | [address] | | | [place] [address] | + + + | Home Phone [...] Providers + +------+ + | Care Rn Placement Name | Role | Phone | + [...] | | | | [address] | [place], [place] | | | | | | Rd | [address] | | | | | | [place], [place] | Phone: | | | | | | [address] | [phone] | | | | | | | Fax: | | | | | | | [phone] | +--------+--------+ + + + + Encounter Details +--------+---------+ + + + | Date | Type | Department | Care Team | Description | +--------+---------+ + + + | 11/27/ | Office | [facility] at | Raegan Doss, | Spinal cord tumor | | 2017 | Visit | [facility] [address] | PA-C [address] | (Primary Dx) | | | | [place] Mailcode: | [place], [place] | | | | | [facility] | [address] | | | | | and [place], | [phone] | | | | | [place] | | | | | | [place], [place] | | | | | | [address] | | | | | | [phone] | | | +--------+---------+ + + + [...] specifics. 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 She takes gabapentin at 300mg daily for [...] 1 year for surveillance [facility] [address] [address] documented in this encounter Plan [...] [facility] | [address] | [place] [address] | | | LAB | | | | + + + + + | [facility] | [address] | [place] [address] | | | LAB | | | [...] | | | | | | | [id number] SITE: | | | | | | [...] at: | | | | | | [facility] Lab | | | | + + + + + + + + | Specimen | + + | | + + + + + + + | Performing | Address | City/State/Zipcode | Phone Number | | Organization | | | | + + + + + | [facility] | [address] | [place] [address] | | | LAB | | | | + + + + + | [facility] | [address] | [place] [address] | | | LAB | | | [...] [facility] | [address] | [place] [address] | | | LAB | | | | + + + + + | [facility] | [address] | [place] [address] | | | LAB | | | [...] [facility] | [address] | [place] [address] | | | LAB | | | | + + + + + | [facility] | [address] | [place] [address] | | | LAB | | | [...] [facility] | [address] | [place] [address] | | | LAB | | | | + + + + + | [facility] | [address] | [place] [address] | | | LAB | | | [...] mL/min/1.73m2 | [facility] | | | AUSTRALIAN | | | | | + +---------+ [...] [address] | [place] [address] | | | LAB | | | | + + + + + | [facility] | [address] | [place] [address] | | | LAB | | | [...] [facility] | [address] | [place] [address] | | | LAB | | | | + + + + + | [facility] | [address] | [place] [address] | | | LAB | | | [...] [facility] | [address] | [place] [address] | | | LAB | | | | + + + + + | [facility] | [address] | [place] [address] | | | LAB | | | [...] | | | | | | | [id number] SITE: | | | | | | [...] [facility] | [address] | [place] [address] | | | LAB | | | | + + + + + | [facility] | [address] | [place] [address] | | | LAB | | | [...] | | | | | | | [id number] SITE: | | | | | | [...] [facility] | [address] | [place] [address] | | | LAB | | | | + + + + + | [facility] | [address] | [place] [address] | | | LAB | | | [...] | | | | | | | [phone] SITE: | | | | | | [...] at: | | | | | | [facility] Lab | | | | + + + + + + + + | Specimen | + + | | + + + + + + + | Performing | Address | City/State/Zipcode | Phone Number | | Organization | | | | + + + + + | [facility] | [address] | [place] [address] | | | LAB | | | | + + + + + | [facility] | [address] | [place] [address] | | | LAB | | | [...] [facility] | [address] | [place] [address] | | | LAB | | | | + + + + + | [facility] | [address] | [place] [address] | | | LAB | | | [...] [facility] | [address] | [place] [address] | | | LAB | | | | + + + + + | [facility] | [address] | [place] [address] | | | LAB | | | | + + + + + documented in this encounter Visit Diagnoses + + | Diagnosis | + + | 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
--- OUTSIDE RECORDS SUMMARY | ~2019-06-26 | XMS | Encounter Summary ---
Demographics + + + | Address | [address] | | | [place] [address] | + + + | Home Phone [...] Team Providers + +------+ + | Care A And P Mechanic Name | Role | Phone | + +------+ + | Tiff Chapin | PCP | | + +------+ + Encounter Details +--------+ + + + + | Date | Type | Department | Care Team | Description | +--------+ + + + + | 09/08/ | Document-Sc | Health Information | Unknown . | | | 2016 | anned | Services [address] | | | | | | [address] | | | | | | Mailcode: OP17A | | | | | | [facility] | | | | | | [place], [place] | | | | | | [address] | | | | | | [phone] | | | +--------+ + + + [...]
--- OUTSIDE RECORDS SUMMARY | ~2019-06-26 | XMS | Encounter Summary ---
Demographics + + + | Address | [address] | | | [place] [address] | + + + | Home Phone [...] Team Providers + +------+ + | Care Rv Technician Name | Role | Phone | [...] Arndt | | | | | [facility] | [facility] | | | | | [facility] Admitting | [place] [address] | | | | | Desk Located on the | [phone] | | | | | 9th floor | | | | | | [place], [place] | Chantal Buenrostro | | | | | [address] | GASTON Alvarenga | | +--------+ + [...] 03/23/16 08 by | | berenice | CLINICAL LEADER; Right; Hand; 18 g; None; | Chantal [...]
--- OUTSIDE RECORDS SUMMARY | ~2019-06-26 | XMS | Encounter Summary ---
Demographics + + + | Address | [address] | | | [place] [address] | + + + | Home Phone [...] Providers + +------+ + | Care Office Nurse Name | Role | Phone | [...] | 2019 | | [address] | [address] | LAMINECTOMY AND | | | | Franko [facility] Main | [place], [place] | resection of | | | | Hospital Admitting | [phone] | intradural spinal | | | | Desk Located on the | [phone] | tumor | | | | 9th floor | | | | | | [place], [place] | | | | | | [address] | | | +--------+---------+ + + + [...] Rajinder Luis MD PCP: PATRIC Flores Service: [facility] Neurosurgery Diagnoses Principal Final Diagnosis: Progressive [...] on the 1 2th floor at the [facility] on the [facility] located at [address] [place] [address]. Please call [phone] if you have any questions or concerns [...] (10/05/18 1244) Discharge Patient To: Interhospital Transfer [facility] Does patient have a planned readmission: No Discharge Summary Completed?: Yes. 10/08/2018 Discharging Provider: RAHEEM DOSS PA-C Date Completed: 10/08/2018 Time Completed: 10:36 AM Discharging Attending: Rajinder Luis MD [facility] [address] [place] [address] documented in this encounter Medications at Time [...] accepted, hopeful for today. RAHEEM DOSS PA-C [facility] [address] [place] [address] dams, PHILIPPE Mena - 10/07/2018 8:33 AM [...] in bed, on ppx lovenox. Dispo: To [place] once accepted. RAHEEM DOSS PA-C [facility] [address] [place] [address] Daniel Arechiga MD - 10/06/2018 11:06 AM [...] WORRELL Routine Cultures PROCEDURE: Strep Screen Culture [[id number]: 11/05/2017 16:4 4 PDT P1] SOURCE: Throat STARTED: 11/05/2017 20:3 9 PDT FREE TEXT SOURCE: BODY SITE: FINAL REPORTS Final Report [] Verified Date/Time: 11/07/2017 11:07 PDT No beta Strep isolated. Order Comments O1: Strep Screen Culture (CULTURE THROAT STREP SCREEN - [facility] - Ordering-Phys: PRINCESS GRAVES) Location: [facility] Performing Locations P1: This test was performed at: [facility] Lab Lab Results Component Value Date APTT [...] Please contact the neurosurgery blackburn on-call pager [phone] with questions. Daniel Barahona M.D. Neurosurgery PGY-1 [...] control, planning for IPR Elif Mcclain PA-C [facility] [address] [place] [address] FoJulio lobo PA-C - 10/04/2018 8:39 AM [...] noted deficits below Delt Tri Bi WE Car [place]erry Master HF KE APF ADF Left 5 5 [...] SPINE THOR / LUMB WWO CONTRAST Order: [id number] Performed: 10/01/2018 17:52 Status: Final result Visible [...] Secondary to clinical course Julio Wahl PA-C [facility] [address] [place] [address] Derick Dave MD,P hD - 10/03/2018 10:00 [...] DERICK REYES MD,PhD Resident Neurological Surgery Pgr. [id number] Raheem Palmer PA-C - 10/03/2018 8:21 AM [...] Dispo: To [place] today. RAHEEM DOSS PA-C [facility] [address] [place] [address] Rajinder Antony MD - 10/02/2018 7:51 PM [...] surgery? No Chris Cano MD Neurosurgery PGY2 03760 oJulio lobo PA-C - 10/02/2018 8:22 AM [...] noted deficits below Delt Tri Bi WE Car [place]erry Master HF KE APF ADF Left 5 5 [...] SPINE THOR / LUMB WWO CONTRAST Order: [id number] Performed: 10/01/2018 17:52 Status: Final result Visible [...] clinical course, pending surgery Julio Wahl PA-C [facility] [address] [place] [address] documented in this enc ounter Plan of [...] Attending | | Surgeon: Rajinder Luis MD Home Appliance Installer(s): Joby Thibodeaux MD. | | Preoperative Diagnosis: [...] a prone position on a Hair [employer] table. All pressure points | | were [...] 10/03/2018 | | 19:49:32DT: 10/03/2018 20:24:12Job #: [id number] | + + X-RAY SPINE THORACIC 1 [...] + + + | [facility] Andrew BRAMBILA | [address] | [place], [place] | | | [facility] | [address] | [address] | | | TESTS | | | [...] prior | | | | | | [id number], low grade | | | | | [...] resection | | | | | | ([id number]), with | | | | | | [...] number | | | | | | [id number]. Spine, | | | | | | [...] + + | [facility] | [address] | [place] [address] | | | PATHOLOGY | [address] | | | + + + + + INTRAOPERATIVE NEURO MONITORING (10/03/2018) + + + | Narrative | Performed At | + + + | Patient Name: Qiana Worrell Date of : 1990 | | | Date of Test: 10/03/2018 Place of | | | Service: IP Intra Op [id number] INTRAOPERATIVE NEURO | | | MONITORING IOM: [...] Norma Jordan MD, MA, [facility] Technical Services Consultant of Neurology | | | Suggested CPT: G0453 - IOM Continuous divided attention to single | | | patient x 10 @ 15 min(s[place] [address] - Short Latency EP's | | | Upper AND Lower extremities 21371 - Central Motor EP's Upper AND | [...] | + + + + + | [facility] | [address] | [place] [address] | | | SERVICES, | [address] [...] LABORATORY | [address] | [place] [address] | | | SERVICES, | [address] [...] 6:43 PM Preliminary: | | | Alexandro Laery MD Dictation initiated: Alexandro Leary MD | [...] + + + | [facility] | [address] | [place] [address] | | | SERVICES, | [address] [...] + + + | [facility] | [address] | [place] [address] | | | SERVICES, CORE | [address] [...] + + + | [facility] | [address] | [place] [address] | | | SERVICESNINO | [address] [...] | | | LABORATORY | | | [place] | | | SERVICES, | | | [...] + + | [facility] | [address] | [place] [address] | | | SERVICES, NINO | JEAN [...] LABORATORY | [address] | [place] [address] | | | SERVICES, CORE | [address] | | | + + + + + ED INFORMATION EXCHANGE (10/01/2018 12:03 PM PDT) + + | Specimen | + + | | + + + + + | Narrative | Performed At | + + + | [id number] Criteria Met Has | [facility] | | Guidelines PDMP Security and Safety No recent Security Events | MEDICAL | | currently on file ED Care Guidelines from [facility] and | [employer]OLOG[employer] | | [facility] Last Updated: 02/08/17 11:58 AM [place] | | | Emergency DepartmentSuggested Care RecommendationsAuthor: Cecily Najera, | | | NOELLEuthstephanie Gzqtrv Update: | | | 02/08/2017Medical:- Thoracic intramedullary [...] Princess Chowdary, | | | [facility], - Neurosurgery: OS, | | | Rajinder Luis MD and PHILIPPE Mckeon - [phone]-Insurance care | | | coordinator: Estelita, -Housing: living in [facility] with | | | mother Judit and [...] Visits [facility] and | | | [facility] 1 [facility] 1 Total 2 Note: | | | Visits indicate total known visits. Recent Emergency Department | | | Visit Summary Date Facility City State Type Diagnoses or Chief | | | Complaint Oct 01, 2018 [facility] [place] | | | [place] Emergency 10,800. MRI Jul 06, 2018 [facility]. | | | 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 Inpatient Rehab Spinal [...] | | | unspecified Jul 06, 2018 [facility] | | | [place] Neuro Surgery 10,151. 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, soft tissue, and | | | skin Care Providers Provider PRC Type Phone Fax Service | | | Dates MARBIN CHAPIN, FLOOR WORKER WELL SERVICE- Nurse Practitioner: Family Current | | | MADHAVI MONTANEZ LCSW Drafter Geological: Clinical (503) | | | [phone] Current CORNELIO VILLASENOR ND Chicken Stuffer (913) | | | [phone] Current [employer] This patient | | | has registered at the [facility] | | | Emergency Department For more information visit: | | | [email or web address] | | | [email or web address] PLEASE NOTE: 1. Any care recommendations and [...] | or completeness of information provided. 2019 [employer] | | | [email or web address] - [email or web address] | | + + + + + | Procedure Note | + + | Service Account, Rtf Results Inbound - 10/01/2018 12:04 PM PDT Formatting of this | | note might be different from the original.[facility]?NOTIFICATION?10/01/2018 | | 12:01?QIANA WORRELL? [facility] Has Guidelines PDMPSecurity and | | SafetyNo recent Security Events currently on fileED Care Guidelines from [facility] | [facility]: 02/08/17 11:58 AM [facility] Emergency DepartmentSuggested | | Care RecommendationsAuthor: Cecily NajeraNOELLEuthstephanie Syjajk | | Update: 02/08/2017Medical:- Thoracic intramedullary spinal [...] [place] | | Karma Chowdary, [facility], - Neurosurgery: Rajinder QURESHI | | MD Toby and PHILIPPE Mckeon - [phone]-Insurance career development counselor: Estelita, | | [phone]-Housing: living in [facility] with mother Judti and 2 y/o daughter Joey | | [...] Count (12 mo.)Facility Visits [facility] | | [facility] 1 [facility] 1 Total 2 Note: Visits indicate total | | known visits. Recent Emergency Department Visit SummaryDate Facility City State Type | | Diagnoses or Chief Complaint Oct 01, 2018 [facility] [place] | | Emergency 10,800. MRI Jul 06, 2018 [facility] 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 Neuro Surgery 10,151. Thoracic Spine Tumor 18,400. Neoplasm of | | unspecified behavior of bone, soft tissue, and skin Care ProvidersProvider [facility] Type | | Phone Fax Service Dates MARBIN CHAPIN FNP-BC Nurse Practitioner: Family Current | | MADHAVI MONTANEZ LCSW Drafter Geological: Clinical [facility], | | CORNELIO Bates ND Chicken Stuffer Current Lemon [employer] PortalThis | | patient has registered at the [facility] Emergency Department | | For more information visit: | | [email or web address] | | PLEASE NOTE: 1. Any [...] completeness of information | | provided.? 2019 [email or web address]. - [email or web address] Ngin | |Oct 01, 2018 [facility] [place] Emergency | | 10,800. MRI | | | |Jul 06, [address] [facility] [place] Emergency | | 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in | | Anesthesia of skin | | Allergy status to sulfonamides status | | Other manager long term care (current) drug therapy | | Brown-Sequard syndrome [...] unspecified | | | |Jul 06, 2018 [facility] [place] Neuro Surgery | | 10,151. Thoracic Spine Tumor | | 18,400. 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in | | | | | | | |Care Providers | |Provider PRC Type Phone Fax Service Dates | |MARBIN CHAPIN, FLOOR WORKER WELL SERVICE- Nurse Practitioner: Family Current | |MADHAVI MONTANEZ LCSW Drafter Geological: Clinical Current | |CORNELIO VILLASENOR , CESARIO Chicken Stuffer Current | | | |[employer] Portal | |This patient has registered at the [facility] Emergency Departmen t | |For more information visit: [email or web address] | |andnbsp PLEASE NOTE: | | 1. [...] information provided. | | | |? 2019 [email or web address]. - [email or web address] | + + + + + + + | Performing | Address | City/State/Zipcode | Phone Number | | Organization | | | | + + + + + | [facility] | [address], | [place], [place] | [phone] | | TECHNOLOG[employer] | [address] | [address] | | + + + + + [...]
--- OUTSIDE RECORDS SUMMARY | ~2019-06-26 | XMS | Encounter Summary ---
Demographics + + + | Address | [address] | | | [place] [address] | + + + | Home Phone [...] Team Providers + +------+ + | Care Materials Associate Name | Role | Phone | + +------+ + | Tiff ChapinP | PCP | | + +------+ + Encounter Details +--------+ + + + + | Date | Type | Department | Care Team | Description | +--------+ + + + + | 05/18/ | Documentati | Neurosurgery at | Raegan Doss, | | | 2014 | on | [facility] [address] | PHILIPPE-C [address] | | | | | Shwetha Mailcode: [address] | [address] [place], [place] | | | | | [facility] | [address] | | | | | and Solomon, | [phone] | | | | | [facility] | | | | | | Floor [place], [place] | | | | | | [address] | | | | | | [phone] | | | +--------+ + + + [...]
--- OUTSIDE RECORDS SUMMARY | ~2019-06-26 | XMS | Encounter Summary ---
Demographics + + + | Address | [address] | | | [place] [address] | + + + | Home Phone [...] Team Providers + +------+ + | Care Shearing Machine Tender Name | Role | Phone [...] | | | spine tumor | [address] | | | | | | Procedures | [address] | | | | | | | [place], | | | | | | OCCUPATIONAL | [place] | | | | | | THERAPY | [address] | | | | | | REFERRAL | Phone: | | | | | | | [phone] | | | | | | | Fax: | | | | | | | [phone] | | +--------+--------+ + + + + [...] | | | spine tumor | [address] | | | | | | Procedures | [address] | | | | | | PHYSICAL | [facility], | | | | | | THERAPY | [place] | | | | | | REFERRAL | [address] | | | | | | | Phone: | | | | | | | [phone] | | | | | | | Fax: | | | | | | | [phone] | | +--------+--------+ + + + + [...] + + + + | 05/12/ | [facility] Thalia [facility] [address] | Rajinder Luis MD | | | 2015 - | Encounter | [address] | [address] | | | | | [id number] [facility] | [place], [place] | | | 05/20/ | | [facility], | [address] | | | 2015 | | [place] [address] | [phone] | | | | | [phone] | | | +--------+ + + + [...] Rajinder Luis MD PCP: PATRIC Todd Service: [facility] Neurosurgery Diagnoses Principal Final Diagnosis: Intramedullary spinal [...] patient was felt appropriate for discharge to [facility] (Stephan LYONS) on 05/20/2015, and the [...] Destination: Destination: Inpatient Rehab - Stephan GOLDSTEIN [facility] Condition on Discharge Good Discharge Follow Up - Facility MD to follow Facility MD to follow patient. FOLLOW-UP You have a wound check appointment with Raegan Doss PA-C at 11:30am on 05/31. This will be on the 8th floor at the [facility] on the [facility] located at [address] [facility] [place] [address]. Please call [phone] if you have any questions or conc erns before your appointment time. If you are still admitted to [facility] at this time, it is okay to cancel this appointment as thais costa as a provider at that facility can examine your incision. Please then make an appointmen t with Raegan Doss for 1 month following your discharge from [facility]. PCP:PATRIC Todd When: Please follow-up with [...] Discharge Patient To: Interhospital Transfer - [facility] Does patient have a planned readmission: No Discharge Summary Completed?: Yes. 05/20/2015 Discharging Provider: Raegan Doss PA-C Date Completed: 05/20/2015 Time Completed: 7:50 AM Discharging Attending: Rajinder Luis MD [facility] [address] [address] [address] documented in this encounter Progress Notes Raegan [...] al sides of foot. Motor: Tri Bi Shallot Packer HF KE APF ADF Left 5 5 [...] IPR (Stephan GOLDSTEIN) today. Raegan Doss PA-C [facility] [address] [address] [address] dams, PHILIPPE Mena - 05/19/2015 [...] Delivery Device: None (room ai r) (05/19/15 9427) 24 Hour Vital Min/Max: Systolic (24hrs), Av mmHg, Min:97 mmHg, Max:133 mmHgDiastolic (24hrs), Av mmHg, Mi n:51 mmHg, Max:73 mmHgPulse Min: 76 Max: 101 Temp Min: 36.4 C (97.5 F) Max: 36.9 C (98.4 F) Resp Min: 16 Max: 16 SpO2 Min: 95 % Max: 99 % Intake/Output Summary (Last 24 hours) at 05/19/15 3352 Last data filed at 05/19/15 0330 Gross [...] rest of the LLE. Motor: Tri Bi Shallot Packer HF KE APF ADF Left 5 5 [...] CM for IPR placement. Raegan Doss PA-C [facility] [address] [facility] [address] [place] [address] dams, PHILIPPE Mena - 05/18/2015 6:52 AM [...] Delivery Device: None (room ai r) (05/18/15 5562) 24 Hour Vital Min/Max: Systolic (24hrs), Av [...] intact at pre-op baseline. Motor: Bi Tri Shallot Packer HF KE APF ADF Left 5 5 [...] CM for IPR placement. Raegan Doss PA-C [facility] [address] [address] [address] dams, PHILIPPE Mena - 05/17/2015 8:48 AM [...] at pre-op baseline. Motor: Delt Tri Bi Shallot Packer HF KE APF ADF Left 5 5 [...] CM for IPR placement. Raegan Doss PA-C [facility] [address]Z [address] [address] [place] [address] Cesar Cox MD - 02/2015 9:39 AM [...] Date of SERVICE: 05/14/2015 ICU Attending: MD Sarnia Admit Service: [facility] ICU Day # [...] information of next of kin: mother [place] [phone] Disposition: Acute care Code: Full This patient has been staffed with Lesly Branch MD , attending physician, who agrees with the above assessment and plan. [facility] DEPARTMENT: [id number] ICU NEURO Place of Service:- Inpatient Date of Service: 05/14/2015 CSN: [id number] Lab Results Component Value Date WBC 23.58 [...] and check patient later Yokasta Randall PGY2 [id number] Lesly Flynn MD - 8:25 AM PSTNSICU [...] due to CSF hai k, cord injury, VT, UTI, acute blood loss anemia, DVT 1. [...] not needed. DVT proph with SCDs. Lesly Barnch M.D. Oil Exploration Engineer, Neurology and Emergency Medicine I spent 20 minutes in direct care of this patient with over 50% spent at the patient s b eside, reviewing data, discussing the patient s care with other medical staff, charting, a nd discussion with treatment decision maker. [facility] DEPARTMENT: [id number] CRITICAL CARE Place of Service: Inpatient Date of Service: 05/14/2015 CSN: [id number] Suggested Level of Care: 09482 - SUBSEQUENT HOSPITAL CARE,LEVEL III olly Hankins [...] the or iginal. NSICU Neuroscience ICU Attending Title Checker Note I have seen and evaluated Matt [...] and coordination of care Cathy Cespedes MD,PhD [facility] DEPARTMENT: [id number] ICU NEURO Place of Service:- Inpatient Date of Service: 05/13/2015 CSN: [id number] Suggested Modifier: Resident involved Suggested CPT: TO COAL SAMPLE TESTER Gilbert Collins MD,MPH - 05/13/2015 8:49 PM [...] and entire foot. Motor: Tri Bi WE Shallot Packer HF KE APF ADF Left 5 5 [...] dilaudid available prn pain Raegan Doss PA-C [facility] [address] [place] [address] Polly Collins MD,MPH - 05/12/2015 7:33 PM [...] Attending | | Surgeon: Rajinder Luis MD Core Cutter And Reamer(s): Jere Story MD | | Preoperative Diagnosis: [...] | endotracheal anesthesia was induced on the [facility]. Occlusive dressings were | | placed [...] turned back supine on | | the [facility]. She was extubated and she was taken to the recovery area in stable | | condition. At the end of the case, all instrument, sponge, and needle counts were | | correct in 2 iterations. I, Rajinder Luis MD was scrubbed and actively participated | | performing the critical portions of the operation.ZAMZAM Henry/MODLDD: | | 05/15/2015 08:21:01DT: 05/15/2015 08:59:43Job #: [id number] | | | |Rajinder Luis MD | |EZEKIEL/KELSEYL | | | | | | /[id number] | + + MAGNESIUM, PLASMA (05/17/2015 10:09 [...] | + + + + + | [facility] | [address] | [place] [address] | | | SERVICES, CORE | JEAN [...] | + + + + + | [employer] | [address] | [place] [address] | | | SERVICES, CORE | JEAN [...] | | | LABORATORY | | | MAURITANIAN | | | SERVICES, | | | [...] | + + + + + | [facility] [employer] | [address] | [place] [address] | | | SERVICES, CORE | JEAN [...] | + + + + + | [facility] | [address] | [place] [address] | | | SERVICES, CORE | JEAN [...] | | | LABORATORY | | | MAURITANIAN | | | SERVICES, | | | [...] MDRD equation recommended by the | [facility] | | National Kidney Disease Education Program. [...] LABORATORY | [address] | [place] [address] | | | SERVICES, CORE | PARK [...] LABORATORY | [address] | [place] [address] | | | SERVICES, CORE | JEAN [...] [facility] | [address] | [place] [address] | | | SERVICES, CORE | PARK [...] | | | LABORATORY | | | MAURITANIAN | | | SERVICES, | | | [...] the MDRD equation recommended by the | [facility] | | National Kidney Disease Education Program. [...] + + + + + | [facility] | [address] | [place] [address] | | | HORACIO, CORE | JEAN [...] + + + + + | [facility] | [address] | [place] [address] | | | SERVICES, CORE | JEAN [...] | + + + + + | [facility] | [address] | [place] [address] | | | SERVICES, CORE | PARK [...] | | | LABORATORY | | | MAURITANIAN | | | SERVICES, | | | [...] | + + + + + | [facility] [facility] | [address] | [place] [address] | | | SERVICES, CORE | JEAN [...] | + +---------+ + + | [facility] DEPARTMENT OF | | | | | [...] LABORATORY | [address] | [place] [address] | | | SERVICES, CORE | PARK [...] | | | LABORATORY | | | MAURITANIAN | | | SERVICES, | | | [...] the MDRD equation recommended by the | [facility] | | National Kidney Disease Education Program. [...] | + + + + + | [facility] | [address] [facility] [address] | [place] [address] | | | SERVICES, NINO | JEAN CARLOS | | | + + + + + INTRAOPERATIVE NEURO MONITORING (05/13/2015) + + + | Narrative | Performed At | + + + | Patient Name: Matt Fagan Date of : 1990 | | | Date of Test: 05/13/2015 Place of | | | Service: IP Intra Op (84) [id number] INTRAOPERATIVE NEURO | | | MONITORING History: [...] min(s), with modifier GY | | | 73478 - Short Latency EP's Upper AND Lower extremities 87055 - | | | Central Motor EP's [...] 2008 | | | | | | 1;15(49):6521-32. | | | | | | Edison Veloz et al. IDH1 and | | | | | | IDH2 mutations in | | | | | | gliomas. N Engl J Med. | | | | | | 2008Feb | | | | | | 19;360(8):960-390.3. | | | | | | Lewis [...] 2008 | | | | | | (12):9894-349. | | | | | | Rogelio [...] # | | | | | | [id number]. It has not | | | | [...] + + + | [facility] | [address] | [place] [address] | | | DIAGNOSTIC | [address] [...] (7q34)break-apart/ | | | | | | [id number] probe set. 50 | | | | [...] | | | | | | Probe(s): [place] | | | | | | Genomics BRAF | | | | | | break-apart (7q34) / | | | | | | [id number] (SA) (7q34) | | | | | [...] clinical | | | | | | supervisor coin machine.Amended to | | | | | | [...] + + + + | [facility] | [address] | [place] [address] | | | DIAGNOSTIC | [address] [...] | A BRAF MUTATION ANALYSIS | | [facility] | | | MUTATION | (EXON 15)Specimen [...] | | | | | | Bi-directional [facility] | | | | | | sequencing with | | | | | | CHROME TANNER-clamp for | | | | | | [...] doi: | | | | | | 10.1097/WCO.[id number] | | | | | | 0217.2. Jessica CM, | | | | | | Cheo SR, Shelton | | | | | | FJ, Jena JS, Lopez Keys BE, | | | | | | Jacquie AR,Dl GUS, | | | | | | Chuckie CLOTH FOLDER HANDWarren C. | | | | | [...] M, | | | | | | aL Nena WA, Michele C, | | | | | | MiguelCD, Luis Alberto DH. 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 | | | | | | Proc Natl Acad Sci U S | | | | | | A. 2011 May | | | | | | 29;109(22):0901-89. | | | | | | Dyson-Santagatitz [...] | | | | | | S. 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 PLoS One. | | | | | | 2010 Mar | | | | | | 29;6(3):i72977.5. | | | | | | April [...] 2009 | | | | | | Rashad;12(7):541-30.7. | | | | | | Chance [...] Pathol. | | | | | | 2012Mar;139(3):065-88. | | | | | | (Analyte [...] # | | | | | | [id number]. It has not | | | | [...] | [facility] | [address] | [place] [address] | | | DIAGNOSTIC | [address] [...] of | | | | | | [facility] | | | | | | [place]. Please | | | | | | [...] into | | | | | | CAP COVERER tissue. Tumor cells | | | | [...] block | | | | | | A6Ebhwzwepsmadpijhmfom | | | | | | stains: see IHC | | | | | | tableNo Electron | | | | | | microscopy | | | | | | performedMolecular | | | | | | genetic studies | | | | | | performedOther Molecular | | | | | | Studies: PCR for BRAF | | | | | | [id number] for BRAF | | | | | [...] | | | | | | Block Z1Fgypajqirn: | | | | | | Tumor cells | | | | | | Marker Result | | | | | | CommentGlial | | | | | | Fibrillary Acidic | | | | | | Protein | | | | | | PositiveVimentin | | | | | | PositiveOlig 2 | | | | | | CfrgrgozEX17 % | | | | | | Positive less than | | | | | | 5%PhosphoHistone 3, | | | | | | mitotic marker | | | | | | NegativeEpithelial | | | | | | Membrane Antigen | | | | | | NegativeATRX(CAP COVERER and | | | | | | [...] PositiveChromogranin | | | | | | UnllvdbzRJ30 (HPCA-1) | | | | | | [...] | + + + + + | [facility] | [address] | [place] [address] | | | PATHOLOGY | [address] [...] | + +---------+ + + | [facility] DEPARTMENT OF | | | | | [...] LABORATORY | [address] | [place] [address] | | | SERVICES, | [address] [...] | + + + + + | [facility] | [address] | [place] [address] | | | SERVICES, | [address] [...] LABORATORY | [address] | [place] [address] | | | SERVICES, CORE | JEAN [...] | [facility] | [address] [facility] [address] | [place] [address] | | | SERVICES, CORE | PARK [...] | | | LABORATORY | | | MAURITANIAN | | | SERVICES, | | | [...] + + + + + | [facility] [employer] | [address] | [place] [address] | | | SERVICES, CORE | JEAN [...] + + | [facility] | [address] [facility] [address] | [place] [address] | | | NINO LEONARD | JEAN [...] | + + + + + | [facility] | [address] | [place] [address] | | | SERVICES, NINO | JEAN [...] | | | | | modification) on Alicia 05/16/15 at | | | | | [...] tablet | | | 1 dose, Starting [facility] 05/13/15 at | | | 8, Until [...] | | | PROCEDURE ONCE, 1 dose, [facility] | | | | | | | 05/13/15 at 2230 | | | | | | + +---------+ +---------+---+---+ + +---+ | | | + +---+ | fentaNYL citrate (PF) | | | (SUBLIMAZE) injection 1 dose, | | | Starting [facility] 05/13/15 at 1925, | | | Until [facility] 05/13/15 at 2007 | | + +---+ | | | + +---+ + +-------+ +--------+---+---+ | gabapentin (NEURONTIN) capsule | Given | 05/20/20 | 300 mg | | | | 300 mg 300 mg, oral, THREE TIMES | | 15 9:29 | | | | | DAILY, First dose on [facility] 05/13/15 | | AM PST | | [...] | | | | ONCE, 1 dose, [facility] 05/13/15 at 2345 | | PM PST [...] | | | | Until [facility] 05/20/15 at 1737, | | | | | | | insomnia | | | | | | + +-------+ +------+---+---+ +---+---+ | | | +---+---+ documented in this encounter
--- OUTSIDE RECORDS SUMMARY | ~2019-06-26 | XMS | Encounter Summary ---
Demographics + + + | Address | [address] | | | [place] [address] | + + + | Home Phone [...] Team Providers + +------+ + | Care Info Print Press Operator Name | Role | Phone [...] | Event | [address] | [address] | | | | | [facility] | [address] | | | | | Hospital Admitting | [place], [place] | | | | | Desk Located on the | [address] | | | | | 9th floor | [phone] | | | | | [place], [place] | | | | | | [address] | | | +--------+ + + + [...] Cuffed; 10/03/18; 1901 | MD Lizette | ACCOUNTS SPECIALIST | +--------+ + + + | Urethr [...] | | | | | PRN, Starting [facility] 10/03/18 at | | PM PDT | [...]
--- OUTSIDE RECORDS SUMMARY | ~2019-06-26 | XMS | Encounter Summary ---
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 | | | | [phone] | | (dos: )) | +--------+ + [...]
--- OUTSIDE RECORDS SUMMARY | ~2019-06-26 | XMS | Encounter Summary ---
Demographics + + + | Address | [address] | | | [place] [address] | + + + | Home Phone [...] Providers + +------+ + | Care Business Supervisor Name | Role | Phone | [...] Archibald | | | | Note-Transc | [place], [place] | [place], [place] | | | | ribed | [address] | [address] | | | | | | | [...]
--- OUTSIDE RECORDS SUMMARY | ~2019-06-26 | XMS | Encounter Summary ---
Demographics + + + | Address | [address] | | | [place] [address] | + + + | Home Phone [...] Team Providers + +------+ + | Care Site Engineer Name | Role | Phone | [...] | Post-discharge | | 2015 | | [facility] [address] | [address] | follow-up (s/p | | | | Ave Mailcode: CH8N | [place], [place] | admission 05/12/15 - | | | | [facility] | [address] | 05/20/15: T6-T7 | | | | and Healing, | [phone] | laminectomy for | | | | | | resection of tumor) | | | | Floor [place], [place] | | | | | | [address] | | | | | | [phone] | | | +--------+ + + + [...]
--- OUTSIDE RECORDS SUMMARY | ~2019-06-26 | XMS | Encounter Summary ---
Demographics + + + | Address | [address] | | | [place] [address] | + + + | Home Phone [...] Providers + +------+ + | Care Field Marketing Specialist Name | Role | Phone | [...] MD | | | | | | [address] | [address] | | | | | | [address] | Ave | | | | | | Rd [facility] | [place], [place] | | | | | | [facility] | [address] | | | | | | [place], [place] | Phone: | | | | | | [address] | [phone] | | | | | | Phone: | Fax: | | | | | | [phone] | [phone] | +--------+--------+ + + + + Encounter [...] | | [address] Mailcode: CH8N | [place], [place] | | | | | [facility] | [address] | | | | | and Healing, | [phone] | | | | | [facility] | | | | | | Floor [facility] [place] | | | | | | [address] | | | | | | [phone] | | | +--------+---------+ + + + [...] today to discuss her recent move to [place] and medica tion coverage. She moved in 1 week ago with her boyfriend's family and would like to establi sh with a local PCP. She has not seen her PCP, Tiff SPIVEY, since discharging from [facility] recently and is unsure of who can [...] like to start PT session s at [facility]. Ht 1.6 m (5' 3"), [...] strength post-op. Patient has now moved to [place] and wishes t o establish PCP care locally. Plan: -The patient will call her PCP, PATRIC Becerra, and ask if she will be willing to contin ue writing prescriptions for her while she looks for a PCP in the [facility] area. -The patient will actively look for a PCP locally. 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
--- OUTSIDE RECORDS SUMMARY | ~2019-06-26 | XMS | Encounter Summary ---
Demographics + + + | Address | [address] | | | [place] [address] | + + + | Home Phone [...] Team Providers + +------+ + | Care Community Development Worker Name | Role | Phone | [...] | | | | | OCCUPATIONAL | [facility] | | | | | | [place]ERAPY | [place] | | | | | | REFERR[place] | [address] | | | | | | | Phone: | | | | | | | [phone] | | | | | | | Fax: | | | | | | | [phone] | | +--------+--------+ + + + + [...] | | | | | PHYSICAL | [place], | | | | | | THERAPY | [place] | | | | | | REFERRAL | [address] | | | | | | | Phone: | | | | | | | [phone] | | | | | | | Fax: | | | | | | | [phone] | | +--------+--------+ + + + + [...] + + | 01/11/ | Hospital | [facility] [address] | Miguel Powell, | | | 2017 - | Encounter | [place] | [address] [facility] | | | | | /[id number] [facility] | [facility] [address] | | | 01/18/ | | HOSPITAL [place], | [place], [place] | | | 2017 | | [place] [address] | [address] | | | | | [phone] | [phone] | | | | | | | | | | | | Bin Li MD | | | | | | Sascha Monk, | | | | | | [address] | | | | | | [place], [place] | | | | | | [address] | | | | | | [phone] | | | | | | | | | | | | Rajinder Luis MD | | | | | | [address] | | | | | | [place], [place] | | | | | | [address] | | | | | | [phone] | | | | | | | [...] MD PCP: Clare Chowdary MD Service: [facility] Neurosurgery Diagnoses Principal Final Diagnosis: Thoracic [...] by the attending providers, resident providers, and white hospitall/nursing staff. Post operatively, the patient was admitted [...] rehabilitation team and was seen by a Drum Drier with recommendation for [facility] upon discharge. While on the hospital floor, the patient tolerated oral intake sufficient to maintain nutri tion and hydration. The surgical wound remained clean, dry, and intact without signs concern ing for infection. The patient was felt appropriate for discharge to [facility] on 01/18/2017 , and the patient and/or family members agree with this course of action. The patient will need to have her slim removed around 2 weeks post-op. This can either b e done at her post-op clinic visit or at [facility] by a provider and then cancel the [...] be on the 12th floor at the [facility] on the [facility] located at [address] [place] [address]. Please call [phone] if you have any questions or concerns before your appointment time. If you are still admitted to [facility] at the time of this appointment, the providers at [facility] can remove your slim. Please then make a 6 week post-op visit to see Raegan Doss PA-C in [facility] rosurgery clinic for routine follow up. You can call [phone] to make this appointment. PCP:Clare Chowdary MD [...] 01/28/17. If you are still admitted to [facility] when your slim need to come out, the providers at [facility] c an remove your slim. Please then make a 6 week post-op visit to see Raegan Doss PA-C in Neurosurgery clinic for routine follow up. You can call [phone] to make this appointmen t. Special Instructions/Tests: N/A Condition On Discharge: Good Vital Signs at discharge as appropriate: BP: 109/55 (01/18/17450) Pulse: 64 (01/18/17450) Resp: 14 (450) Weight: 78 kg (171 lb 15.3 oz) (01/15/17 0000) Discharge Patient To: Interhospital Transfer - [facility] Inpatient Rehab Does patient have a planned readmission: No Discharge Summary Completed?: Yes. 01/18/2017 Discharging Provider: Raegan Doss PA-C Date Completed: 01/18/2017 Time Completed: 10:56 AM Discharging Attending: [place] [address] documented in this encounter Medications at Time [...] patient and recommended a short stay at [facility] -Patient has required several straight caths overnight [...] prevention, appreciate PT/OT involvement with recs for [facility]. ID/Heme: Afebrile since admission on 01/11. DVT ppx: SCDs while in bed, ppx lovenox 40mg inj. qHS. Dispo: Patient is medically stable for discharge. CM working on placement at [facility] for discharge today. Raegan Doss PA-C [facility] [address] [address]/[place] [address] dams, PHILIPPE Mena - 01/17/2017 10:28 AM [...] Thoracic incision: flat, dry, intact. No erythema. [place] present. Sensation: Patchy numbness in BLE. Decreased [...] siatry consult placed for possible admission to [facility]. ID/Heme: Afebrile since admission on 01/11. DVT ppx: SCDs while in bed, ppx lovenox 40mg inj. qHS. Dispo: Pending physiatry consult. Appreciate CM involvement. Raegan Doss PA-C [facility] [address] [address] [address] dams, PHILIPPE Mena - 01/16/2017 [...] incision: flat, dry, no erythema, no fluctuance. [place] present. Sensation: Patchy sensation loss in BLE, [...] Will discuss with CM. Raegan Doss PA-C [facility] [address] [address] [place] [address] dams, PHILIPPE Mena - 01/15/2017 9:02 AM [...] catheter in until able to ambulate to [facility]. She also r equests going up on [...] O2 Delivery Device: None (room air) (01/15/17 0559) 24 Hour Vital Min/Max: Systolic (24hrs), [...] and possible rehab needs. Raegan Doss PA-C [facility] [address] [facility] [address] uKaci guerra M D - 01/14/2017 9:42 AM PDT . Neuroscience Intensive Care Unit Attending Progress Note Attending Pager #[phone] Documentation Date 01/13/17 1450 Day of Procedure [...] team members Provider Role Specialty Ipt Neurosurgery #[id number] Treatment Team Neurological Surgery Ipt Critical Care Nsicu #00661 Treatment Team -- Code Status Code Status [...] on counseling and coordination of care.Seen with PA/VP TALENT MANAGEMENT Ryan. Please see their note for details. I reviewed the documented findings, all data and the recent imaging available. Date of Service: 01/14/2017 Kaci Mon MD Author:Kaci Mon MD [address] [id number] signed by Kaci Mon MD at 01/14/2017 [...] Aaron MD Neurosurgery, PGY-2 On-call resident pager [phone] 9:03 AM 01/14/[address] [facility] - 01/14/2017 7:30 AM PDT . Neuroscience Intensive Care Unit Team Progress Note NSICU ASSIGNED #[id number] Documentation Date 01/13/17 1450 Day of Procedure [...] team members Provider Role Specialty Ipt Neurosurgery #[id number] Treatment Team Neurological Surgery Ipt Critical Care Nsicu #56421 Treatment Team -- Patient Lines/Drains/Airways Status Active [...] of Service: 01/14/2017 AIXA Sanders EPIC DEPARTMENT: [facility] ICU NEURO Place of Service:- Inpatient CSN: [id number] Suggested Modifier: None Suggested CPT: TO COATER HELPER AIXA Orozco Author:AIXA Sanders [address] [id number] signed by AIXA Orozco at 01/14/2017 11:26 AM Stephie Rodríguez MD - 01/13/2017 9:35 PM PDTFormatting of this note might be differen t from the original. . Neuroscience Intensive Care Unit Attending Progress Note Attending Pager #[phone] Documentation Date 01/13/17 1450 Day of Procedure [...] team members Provider Role Specialty Ipt Neurosurgery #43639 Treatment Team Neurological Surgery Ipt Critical Care Nsicu #57421 Treatment Team -- Code Status Code Status [...] on counseling and coordination of care.Seen with PA/VP TALENT MANAGEMENT Ms. Gonzalez. Please see their note for details. I reviewed the documented findings, all data and the recent shmuel ging available. Date of Service: 01/13/2017 [facility] DEPARTMENT: [facility] ICU NEURO Place of Service:- Inpatient CSN: [id number] Suggested Modifier: GC - Resident Involved Suggested CPT: TO COATER HELPER Author:Stephie Anders MD [address] [address] [place] [address]Htnllptsuxxvhl signed by Stephie Anders MD at 01/13/2017 [...] Aaron MD Neurosurgery, PGY-2 On-call resident pager [phone] 8:22 PM 01/13/2017 Cesar Najera MD - [...] setting of fever to 103. [facility] and unchanged. Concern for tumor progression [...] MD Neurosurgery Resident 11:07 PM, 01/12/2017 Pager #[phone] acey Pimentel P A-C - 01/12/2017 8:42 [...] with the report as now presented. Impression: Qaina Fagan is a 26 yo female s/p [...] 01/14 for tumor resection. Kacey Pimentel PA-C [facility] [address] [place] [address] Chavo Robert MD - 01/11/2017 9:27 PM [...] midline No pronator drift Delt Bi Tri Station Operator HF KE KF DF PF Left 5 [...] now Chavo Penn MD Neurosurgery Resident Pager #[phone] signed by Chavo Penn MD at 01/11/2017 [...] [facility] | [address] | [place] [address] | | | SERVICES, CORE | PARK [...] | | | LABORATORY | | | PALAUAN | | | SERVICES, | | | [...] + + + + + | [facility] [address] | [address] [facility] [facility] [facility] | [place] [address] | | | SERVICES, NINO | JEAN [...] [facility] | [address] | [place] [address] | | | SERVICES, CORE | PARK [...] | | | LABORATORY | | | PALAUAN | | | SERVICES, | | | [...] LABORATORY | [address] | [place] [address] | | | SERVICES, CORE | PARK [...] | + + + + + | [facility] | [address] | [place] [address] | | | HORACIO, NINO | JEAN [...] | | | LABORATORY | | | PALAUAN | | | SERVICES, | | | [...] | + + + + + | [facility] | [address] | [place] [address] | | | SERVICES, CORE | [address] | | | + + + + + PROCEDURE NOTE (01/15/2017 7:18 PM PDT)OPERATION RECORD (01/15/2017 8:11 AM PDT) + + | Procedure Note | + + | Rajinder Luis MD - 01/13/2017 8:53 PM PDT Date of Service: 01/13/2017 Attending | | Surgeon: Rajinder Luis MD Splicing Machine Operator(s): Joby Thibodeaux, | | . 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 No surgical drains.Indications For | | [...] the | | operating room on a [facility]. General endotracheal anesthesia was induced by [...] dura was reapproximated and closed using 5-0 Yosemite-Thaddeus suture | | in a running fashion. [...] to a supine position on | | [facility]. She was then extubated by the [...] 01/13/2017 19:31:27DT: | | 01/13/2017 20:53:09Job #: [id number] | + + CBC (HEMOGRAM) ONLY (01/15/2017 [...] + + + + + | [facility] | [address] | [place] [address] | | | SERVICES, CORE | PARK [...] | | | LABORATORY | | | PALAUAN | | | SERVICES, | | | [...] | + + + + + | [facility] | [address] | [place] [address] | | | SERVICES, CORE | JEAN [...] LABORATORY | [address] | [place] [address] | | | NINO LEONARD | JEAN [...] PATTY | [address] | [place], [place] | | | JAVIER POINT OF CARE | [facility] | [address] | | | TESTS | | | [...] BRAMBILA | [address] | [place], [place] | | | ZELALEM HERRERA OF NURIA | [facility] | [address] | | | TESTS | | | [...] + + + + + | [facility] | [address] | [place] [address] | | | SERVICES, CORE | PARK [...] | + + + + + | [facility] | [address] | [place] [address] | | | SERVICES, CORE | PARK [...] | | | LABORATORY | | | PALAUAN | | | SERVICES, | | | [...] + + + + + | [facility] | [address] | [place] [address] | | | SERVICES, CORE | JEAN [...] 97 | 60 - 99 mg/dL | [facility] - | | | GLUCOSE, | [...] BRAMBILA | [address] | [place], [place] | | | ZELALEM HERRERA OF CARE | [address] | [address] | | | TESTS | | | [...] | | | POC | | | ZLEALEM HERRERA | | | | | | [...] BRAMBILA | [address] | [place], [place] | | | ZELALEM HERRERA OF [facility] | [address] | [address] | | | TESTS | | | [...] MARQUAM | [address] | [place], [place] | | | HILL, [facility] | [facility] | [address] | | | TESTS | | | [...] + + + + | PRODUCT | [id number] | | [facility] | | | UNIT [...] + + + + | EXPIRATION | [id number] | | [facility] | | | DATE [...] + + + + | BLOOD | [id number] | | [facility] | | | PRODUCT [...] LABORATORY | [address] | [place] [address] | | | SERVICES, | JEAN CARLOS [...] + + + + | PRODUCT | [id number] | | [facility] | | | UNIT [...] + + + + | EXPIRATION | [id number] | | [facility] | | | DATE [...] + + + + | BLOOD | [id number] | | [facility] | | | PRODUCT [...] + + + + + | [facility] | [address] | [place] [address] | | | SERVICES, | JEAN CARLOS [...] + + | Performing | Address | City/[facility] | Phone Number | | Organization | | | | + + + + + | [facility] | [address] | [place], [place] | | | JAVIER POINT OF [facility] | [address] | [address] | | | TESTS | | | [...] LABORATORY | [address] | [place] [address] | | | SERVICES, SPECIAL | PARK [...] | + + + + + | [facility] | [address] | [place] [address] | | | HORACIO, CORE | JEAN [...] | | | Service: IP Intra Op [id number] INTRAOPERATIVE NEURO | | | MONITORING IOM: [...] | | Clinical Neurophysiology Department Suggested CPT: 43437 - IOM | | | Remote x 3 hr(s) 34016 - Short Latency EP's Upper AND Lower | | | extremities 15327 - Central Motor EP's Upper AND Lower extremities | | | 30397 - Neuromuscular Junction Test Suggested Diagnosis: D43.4 [...] original | | | | | | [id number]) with cells | | | | | [...] | | | | cs determined by [facility] | | | | | | laboratories. [...] medical | | | | | | record#[id number]. | | | | | | A: [...] + + | [facility] | [address] | [place] [address] | | | PATHOLOGY | [address] [...] + + + + + | [facility] | [address] | [place] [address] | | | SPECIAL HORACIO | JEAN [...] + + + + + | [facility] | [address] | [place] [address] | | | SERVICES, CORE | JEAN [...] | | + +---------+ + + | [facility] RADIOLOGY | | | | | VOICE [...] | [address] | [place] [address] | | | SERVICES, | [address] [...] LABORATORY | [address] | [place] [address] | | | SERVICES, | [address] [...] + + + + + | [facility] | [address] | [place] [address] | | | NINO LEONARD | JEAN [...] + + + + + | [facility] | [address] [facility] | [place] [address] | | | SERVICES, CORE | PARK [...] | + + + + + | [facility] | [address] [facility] | [place] [address] | | | SERVICES, CORE | PARK [...] | | | LABORATORY | | | PALAUAN | | | SERVICES, | | | [...] + + + + + | [facility] | [address] [facility] | [place] [address] | | | NINO LEONARD | JEAN [...] + + + + + | [facility] | [address] | [place] [address] | | | NINO LEONARD | JEAN [...] and new reporting units as of | [facility] | | 12/10/2013. | LABORATORY | | | SERVICES, NINO | + + + + + + + + | Performing | Address | City/State/Zipcode | Phone Number | | Organization | | | | + + + + + | [facility] | [address] [facility] | [place] [address] | | | SERVICES, CORE | JEAN [...] + | [facility] - | [address] | [place] [address] | | | [place] | | | [...] | + + + + + | [employer] | [address] | [place] [address] | | | HORACIO, NINO | JEAN [...] | [facility] | | | GRAVITY | [place] performed by | | LABORATORY | | [...] LABORATORY | [address] | [place] [address] | | | HORACIO, NINO | JEAN [...] LABORATORY | [address] | [place] [address] | | | SERVICES, CORE | PARK [...] + + + + + | [facility] | [address] [facility] | [place] [address] | | | SERVICES, NINO | JEAN [...] At | + + + | [id number] This patient has registered at the | [facility] | | [facility] Emergency Department For more | MEDICAL | | information visit: | TECHNOLOGIES | | [email or web address] | | | [email or web address] ED Care Guidelines There are currently no ED Care Guidelines | | | in LYNN for this patient. Please check your facility's medical | | | records system. Recent Emergency Department Visit Summary Admit | | | Date Facility City State Type Major Type Diagnoses or Chief Complaint | | | Jan 11, 2017 [facility] [place] Emergency | | | Emergency 10,800. transfer Jan 11, 2017 [facility] | | | [facility] [place] Emergency Emergency Recent | | | Inpatient Visit Summary No recorded inpatient visits. E.D. Visit | | | Count (12 mo.) Facility Visits [facility] | | | [place] 2 [facility] [address] [place] [address] | | | [facility] 1 Total 6 Note: Visits indicate total | | | known visits. Care Providers Provider PRC Type Phone Fax | | | Service Dates DEVON [facility] Primary Care | | | Current CLARE [...] for | | | additional information. 2017 [employer] - | | | [place], [place] - [email or web address] | | + + + + + | Procedure Note | + + | Service Account, Rtf Results Inbound - 01/11/2017 8:40 AM PDT Formatting of this | | note might be different from the original.LYNN?NOTIFICATION?01/11/2017 08:38?ANAID | | QIANA Parsons? patient has registered at the [facility] | | [place] Emergency Department For more information visit: | | [email or web address] ED Care | | GuidelinesThere are currently no ED Care Guidelines in LYNN for this patient. Please | | check your facility's medical records system.Recent Emergency Department Visit | | SummaryAdmit Date Facility [facility] Type Major Type Diagnoses or Chief Complaint Jan | | 2016 [facility] [place] Emergency Emergency 10,800. | | transfer Jan 11, 2017 [facility] [place] Emergency Emergency Recent | | Inpatient Visit SummaryNo recorded inpatient visits. E.D. Visit Count (12 mo.)Facility | | Visits [facility] 2 [facility] 1 [facility] | | [address] 1 Total 6 Note: Visits indicate total known | | visits. Care ProvidersProvider PRC Type Phone Fax Service Dates DEVON VEGA | | [facility] Primary Care Current [facility] Primary Care Current | | TIAN ANTOINE [facility] Oct 16, 2016 - | | Current [...] additional information. ? 2017 [employer] | | [employer] [place], [place] - [email or web address] | |[facility] 2 | |[facility] 1 | |[facility] 2 | |[facility] 1 | |Total 6 | |Note: Visits indicate total known visits. | | | |Care Providers | |Provider PRC Type Phone Fax Service Dates | |[facility] Primary Care Current | |[facility] Current | |TIAN ANTOINE [facility] Oct 16, 2016 - Current | | | |The above information is provided for the sole purpose of patient treatment. Use of this in formation beyond the terms of Data Sharing Memorandum of Understanding and License Agreement is prohibited. In | |certain cases not all visits may be represented. Consult the aforementioned facilities for additional information. | |? 2017 [employer] - [place], [place] - [email or web address] | + + + + + + + | Performing | Address | City/State/Zipcode | Phone Number | | Organization | | | | + + + + + | [facility] | [address], | [place], [place] | [phone] | | TECHNOLOGIES | [address] | [address] | | + + + + + [...] | | | | last modification) on [facility] 01/13/17 | | | | | | [...] | | | HOURS, First dose on [facility] 01/11/17 | | PM PDT | [...] | | | | | | dose, [facility] 01/11/17 at 1330 | | | | | | + +---------+ +-------+---+---+ + +---+ | | | + +---+ | glycopyrrolate (ROBINUL) | | | injection 0.2 mg 0.2 mg, | | | intravenous, EVERY 2 HOURS | | | NEEDED, 3 doses, Starting Sun | | | 01/14/17 at 0220, Until [facility] 01/18/17 | | | at 2055, PRN [...] | | | | | NEEDED, Starting [facility] 01/11/17 at | | | | [...] | | | | | NEEDED, Starting [facility] 01/11/17 at | | AM PDT | [...]
--- OUTSIDE RECORDS SUMMARY | ~2019-06-26 | XMS | Encounter Summary ---
Demographics + + + | Address | [address] | | | [place] [address] | + + + | Home Phone [...] Team Providers + +------+ + | Care Tracing Lathe Set Up Operator Name | Role | Phone | [...] | 2018 | Pass | Services at [facility] | | | | | | [address] | | | | | | Marla Abdul Mailcode: | | | | | | [address] | | | | | | [facility] | | | | | | [place], [place] | | | | | | [address] | | | | | | [phone] | | | +--------+ + + + [...]
--- OUTSIDE RECORDS SUMMARY | ~2019-06-26 | XMS | Encounter Summary ---
Demographics + + + | Address | [address] | | | [place] [address] | + + + | Home Phone [...] Team Providers + +------+ + | Care House Fellow Name | Role | Phone | + [...] | | | | MRI SPINE | [place], | Mailcode: | | | | | THORACIC W[place] | [place] | [address] | | | | | CONTRAST | [address] | [place] | | | | | [facility], | Phone: | Research | | | | | DORSAL SPINE | [phone] | Center | | | | | COMBO | Fax: | [place], [place] | | | | | | [phone] | [address] | | | | | | | Phone: | | | | | | | [phone] | | | | | | | Fax: | | | | | | | [phone] | +--------+--------+ + + + + Reason [...] | | | [address] | [address] | | | | | | [address] | [address] | | | | | | Rd | [place], [place] | | | | | | [place], [place] | [address] | | | | | | [address] | Phone: | | | | | | | [phone] | | | | | | | Fax: | | | | | | | [phone] | +--------+--------+ + + + + Encounter Details +--------+---------+ + + + | Date | Type | Department | Care Team | Description | +--------+---------+ + + + | 02/14/ | Office | [facility] at | Raegan Doss, | Spinal cord tumor | | 2017 | Visit | [facility] [address] | PA-C [address] | | | | | [place] Mailcode: | [place], [place] | | | | | [facility] | [address] | | | | | and [place], | [phone] | | | | | Building [address] | | | | | | [place], [place] | | | | | | [address] | | | | | | [phone] | | | +--------+---------+ + + + [...] much of her sensation. She discharged to [facility] for several weeks of IPR. She currently [...] with time. When she was discharged from [facility] multiple medications were missing that she never [...] 3 months with follow up thoracic [facility] [address] [place] [address] documented in this encounter Plan of Treatment Not on filedocumented as of this encounter Results MRI SPINE THORACIC [facility] CONTRAST (06/04/2017 2:38 PM PST) + + [...]
--- OUTSIDE RECORDS SUMMARY | ~2019-06-26 | XMS | Encounter Summary ---
Demographics + + + | Address | [address] | | | [place] [address] | + + + | Home Phone [...] Team Providers + +------+ + | Care Chemistry Technical Officer Name | Role | Phone | [...] | | | Ave Mailcode: [address] | [place], [place] | | | | | [facility] | [address] | | | | | and Healing, | [phone] | | | | | | | | | | | Floor [place], [place] | | | | | | [address] | | | | | | [phone] | | | +--------+ + + + [...]
--- OUTSIDE RECORDS SUMMARY | ~2019-06-26 | XMS | Encounter Summary ---
Demographics + + + | Address | [address] | | | [place] [address] | + + + | Home Phone [...] Team Providers + +------+ + | Care Surveillance Supervisor Name | Role | Phone | [...] | spinal cord | [place], [place] | [place], [place] | | | | | Procedures | [address] | [address] | | | | | REQUEST TO | Phone: | Phone: | | | | | SURGERY | [phone] | [phone] | | | | | METAL MINER BLASTING | Fax: | Fax: | | | | | HI BX/EXCIS | [phone] | [phone] | | | | | SPINAL | | | | | | | TUMOR,XDURAL | | | | | | | ,THOR HI | | | | | | | BX/EXCIS | | | | | | | SPIN | | | | | | | MARCELINO,INDUR,XM | | | | | | | ED,THOR HI | | | | | | | BX/EXCIS | | | | | | | SPIN | | | | | | | MARCELINO,INDUR,IN | | | | | | | MED,THOR HI | | | | | | | [...] | Surgery | Spinal cord | Dept [facility] | Rajinder Fisher MD | | | | | tumor ED | [address] | [address] | | | | | f/u T5-10 | [address] | Ave | | | | | spinal cord | Rd [facility] | [place], [place] | | | | | tumor with | Hospital | [address] | | | | | right leg | [place], [place] | Phone: | | | | | weakness. | [address] | [phone] | | | | | | Phone: | Fax: | | | | | | [phone] | [phone] | +--------+--------+ + + + + Encounter Details +--------+---------+ + + + | Date | Type | Department | Care Team | Description | +--------+---------+ + + + | 01/16/ | Office | Neurosurgery at | Rajinder Luis MD | Spinal cord tumor | | 2016 | Visit | [facility] [address] | [address] | (Primary Dx); | | | | Ave Mailcode: CH8N | [place], [place] | Thoracic spine tumor | | | | [facility] | [address] | | | | | and Solomon, | [phone] | | | | | [facility] | | | | | | Floor [place], [place] | | | | | | [address] | | | | | | [phone] | | | +--------+---------+ + + + [...] relocated to a living arrangement closer to [facility]. She now lives in [place]. She is accompanied by her almost 1-year-old [...] the neuro-oncology tumor Board as well. Rajinder Luis MD I spent 20 minutes [id number] with the patient. I spent more than [...]
--- OUTSIDE RECORDS SUMMARY | ~2019-06-26 | XMS | Encounter Summary ---
Demographics + + + | Address | [address] | | | [place] [address] | + + + | Home Phone [...] Team Providers + +------+ + | Care Elevator Repairer Apprentice Name | Role | Phone | [...] | | 2016 | | [facility] | [address] | FOR RESECTION OF | | | | Rd [facility] | [place], [place] | INTRINSIC SPINAL | | | | Hospital Admitting | [address] | CORD TUMOR | | | | Desk Located on the | [phone] | | | | | 9th floor | | | | | | [facility] [place] | | | | | | [address] | | | +--------+---------+ + + + [...] MD PCP: Clare Chowdary MD Service: [facility] Neurosurgery Diagnoses Principal Final Diagnosis: 1. [...] resections (05/2015, 09/2015). The patient was admitted [facility] on 03/21/2016 for a right-sided T8 and [...] patient was felt [facility], and th e patient and/or [...] THIS IF YOU ARE STILL ADMITTED AT [facility]. This will be on the 8th floor at the [facility] on the [facility] located at [address] [place] [address]. Pleas e call [phone] if you have any questions or concerns [...] (03/28/16642) Discharge Patient To: Inpatient Rehab - [facility] Does patient have a planned readmission: No Discharge Summary Completed?: Yes. 03/28/2016 Discharging Provider: Raegan Doss PA-C Date Completed: 03/28/2016 Time Completed: 7:46 AM Discharging Attending: Rajinder Luis MD [facility] [address] [place] [address] documented in this encounter Progress Notes Raegan [...] moderate swelling under skin, no erythema, dry. Henning in place. Sensation: LT sensation at pre-op [...] open to air. Okay to wash daily. Henning will need to be removed at 2 weeks post-op, on 04/05. This can be completed at [facility] or at the [facility] follow up visit. CV: HD stable. Pulm: [...] bed. On ppx Lovenox qHS. Dispo: To [facility] today at 11am. Will see patient back in clinic in 1 month with a repeat thora cic MRI. Raegan Doss PA-C [facility] [address] [facility] [address] dams, PHILIPPE Mena - 03/27/2016 4:51 PM [...] Thoracic incision: flat, intact, mild erythema, dry. Henning present. Sensation: LT sensation decreased and patchy [...] to [facility] tomorrow. Raegan Doss PA-C [facility] [address] [id number] [place] [address] Sumeet Malone MD - 03/26/2016 9:23 AM [...] Consult to physiatry with likely placement at [facility]. PT recs IPR. 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 Plan to repea t MRI in one month and evaluation for possible radiation needs at that time. HEENT/Derm: Menthol drops prn mouth soreness. Routine wound care to spinal incision - pleas e leave open to air. Okay to wash on 03/25. Henning will need to be removed at 2 [...] Dispo: Pending medical course, likely IPR at [facility]. Appreciate CM following. Sumeet Ross MD Neurological [...] Consult to physiatry with likely placement at [facility]. PT recs IPR. 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 Plan to repea t MRI in one month and evaluation for possible radiation needs at that time. HEENT/Derm: Menthol drops prn mouth soreness. Routine wound care to spinal incision - pleas e leave open to air. Okay to wash on 03/25. Henning will need to be removed at 2 [...] sensation intact in all 4 extremities Motor: Sausage Cutter Bicep Tricep Delt R 5 5 5 [...] to evaluate patient for possible admission to [facility]. Oncology: Pathology in process. Likely recurrent/residual low-grade [...] Pending medical course. Kacey Pimentel PA-C [facility] [address] [facility] [address] Raegan Palmer PA-C - 03/23/2016 7:58 AM [...] O2 Delivery Device: None (room air) (03/23/16 0840) 24 Hour Vital Min/Max: Systolic (24hrs), Av [...] Full strength throughout 5/5 - B, T, plasterer apprentice, HF, KE, APF, ADF Daniels catheter in [...] to evaluate patient for possible admission to [facility]. HEENT/Derm: Menthol drops prn mouth soreness. Routine [...] Pending medical course. Raegan Doss PA-C [facility] [address] [id number] [place] [address] Yokasta Pizano MD - 03/22/2016 5:30 PM [...] consult per patient's request Yokasta Randall PGY3 [id number] Cesar Najera MD - 03/22/20 16 3:05 [...] [facility] | [address] | [place] [address] | | | SERVICES, CORE | PARK [...] | | | LABORATORY | | | BELARUSIAN | | | SERVICES, | | | [...] MDRD equation recommended by the | [facility] | | National Kidney Disease Education [...] + | [facility] | [address] | [place] [address] | | | SERVICES, CORE | PARK [...] [facility] | [address] | [place] [address] | | | SERVICES, NINO | PARK [...] | | | LABORATORY | | | BELARUSIAN | | | SERVICES, | | | [...] + + + + + | [facility] | [address] | [place] [address] | | | SERVICES, CORE | JEAN [...] BRAMBILA | [address] | [place], [place] | | | ZELALEM HERRERA OF NURIA | [facility] | [address] | | | TESTS | | | [...] | [facility] | [address] | [place] [address] | | | SERVICES, CORE | JEAN [...] | | | LABORATORY | | | BELARUSIAN | | | SERVICES, | | | [...] + + + + + | [facility] | [address] | [place] [address] | | | SERVICES, NINO [...] | 60 - 99 mg/dL | [facility] - | | | GLUCOSE, | [...] BRAMBILA | [address] | [place], [place] | | | JAVIER POINT OF CARE | [address] | [address] | | | TESTS | | | [...] MARQUAM | [address] | [place], [place] | | | ZELALEM HERRERA OF CARE | [address] | [address] | | | TESTS | | | [...] MARQUAM | [address] | [place], [place] | | | ZELALEM HERRERA OF CARE | [address] | [address] | | | TESTS | | | [...] BRAMBILA | [address] | [place], [place] | | | JAVIER POINT OF CARE | [address] | [address] | | | TESTS | | | | + + + + + OPERATION RECORD (03/24/2016 9:53 AM PDT) + + | Transcriptions | + + | Rajinder Luis MD - 03/22/2016 4:04 PM PDT Date of Service: 03/22/2016 Attending | | Surgeon: Rajinder Luis MD Fish Drier(s): Thomas Gorman, | | Matt, Ph.D. Preoperative [...] was closed primarily using a running 5-0 Stewart-Thaddeus suture in a locking fashion. At | | the lowest incision, the dural tacking sutures were crossed. The dura was also closed | | in primary fashion using a running 5-0 Stewart-Thaddeus suture in locking fashion. These dural | [...] 03/22/2016 12:20:45DT: 03/22/2016 | | 16:04:07Job #: [id number] | + + CBC (HEMOGRAM) ONLY (03/24/2016 [...] [facility] | [address] | [place] [address] | | | SERVICES, CORE | PARK [...] | | | LABORATORY | | | BELARUSIAN | | | SERVICES, | | | [...] [facility] | [address] | [place] [address] | | | SERVICES, CORE | JEAN [...] MARQUAM | [address] | [place], [place] | | | ZELALEM HERRERA OF CARE | [address] | [address] | | | TESTS | | | [...] PATTY | [address] | [place], [place] | | | ZELALEM HERRERA OF CARE | [address] | [address] | | | TESTS | | | [...] | 60 - 99 mg/dL | [facility] - | | | GLUCOSE, | [...] BRAMBILA | [address] | [place], [place] | | | JAVIER POINT OF CARE | [address] | [address] | | | TESTS | | | [...] MARQUAM | [address] | [place], [place] | | | ZELALEM HERRERA OF CARE | [address] | [address] | | | TESTS | | | [...] | + + + + + | [facility] | [address] | [place] [address] | | | SERVICES, CORE | JEAN [...] LABORATORY | [address] | [place] [address] | | | NINO LEONARD | JEAN [...] LABORATORY | [address] | [place] [address] | | | SERVICES, CORE | [address] | | | + + + + + INR (03/23/2016 5:50 AM PDT) + +-------+ + + + | Component | Value | Ref Range | Performed | Pathologist | | | | | At | Signature | + +-------+ + + + | INR | 1.06 | 0.90 - 1.20 INR | [facility] | | | | | | LABORATORY [...] LABORATORY | [address] | [place] [address] | | | SERVICES, CORE | PARK [...] | 28.5 | 26.0 - 36.0 | [facility] | | | | | seconds | [...] + + + + + | [facility] | [address] | [place] [address] | | | SERVICES, CORE | PARK [...] | | | LABORATORY | | | BELARUSIAN | | | SERVICES, | | | [...] | [facility] | [address] | [place] [address] | | | SERVICES, NINO | JEAN [...] - MARQUAM | [address] | [place], [place] | | | ZELALEM HERRERA OF CARE | [facility] | [address] | | | TESTS | | | [...] | 60 - 99 mg/dL | [facility] - | | | GLUCOSE, | [...] PATTY | [address] | [place], [place] | | | JAVIER POINT OF CARE | [address] | [address] | | | TESTS | | | [...] PATTY | [address] | [place], [place] | | | ZELALEM HERRERA OF NURIA | [facility] | [address] | | | TESTS | | | [...] - MARQUAM | [address] | [place], [place] | | | JAVIER POINT OF CARE | [address] | [address] | | | TESTS | | | [...] BRAMBILA | [address] | [place], [place] | | | JAVIER POINT OF CARE | [address] | [address] | | | TESTS | | | [...] BRAMBILA | [address] | [place], [place] | | | ZELALEM HERRERA OF [facility] | [address] | [address] | | | TESTS | | | | + + + + + INTRAOPERATIVE NEURO MONITORING (03/22/2016) + + + | Narrative | Performed At | + + + | Patient Name: Matt Fagan Date of : 1990 | | | Date of Test: 03/22/2016 Place of | | | Service: IP Intra Op [id number] INTRAOPERATIVE NEURO | | | MONITORING History: [...] Clinical Neurophysiology | | | Suggested CPT: 15012 - IOM Remote x 3 hr(s) 48023 - Short | | | Latency EP's Upper AND Lower extremities 15507 - Central Motor EP's | | | Upper AND Lower extremities 50678 - Neuromuscular Junction Test | | | [...] prior | | | | | | resections([id number] | | | | | | and [id number]) with | | | | | | [...] | | | | [facility] [...] | | | | | | record #[id number], and | | | | | | [...] + + + | [facility] | [address] | [place] [address] | | | PATHOLOGY | JEAN CARLOS [...] + | [facility] - | [address] | [place] [address] | | | [place] | | | [...] LABORATORY | [address] | [place] [address] | | | SERVICES, CORE | PARK [...] [facility] | [address] | [place] [address] | | | SERVICES, CORE | PARK [...] LABORATORY | [address] | [place] [address] | | | SERVICES, CORE | PARK [...] LABORATORY | [address] | [place] [address] | | | HORACIO, NINO | JEAN [...] LABORATORY | [address] | [place] [address] | | | SERVICES, | [address] [...] [facility] | [address] | [place] [address] | | | SERVICES, | JEAN CARLOS [...] LABORATORY | [address] | [place] [address] | | | SERVICES, CORE | PARK [...] LABORATORY | [address] | [place] [address] | | | NINO LEONARD | JEAN [...] + + + + + | [facility] | [address] | [place] [address] | | | SERVICES, NINO | JEAN [...] LABORATORY | [address] | [place] [address] | | | SERVICES, CORE | PARK [...] | | | LABORATORY | | | BELARUSIAN | | | SERVICES, | | | [...] | [facility] | [address] | [place] [address] | | | SERVICES, CORE | PARK [...] PATTY | [address] | [place], [place] | | | ZELALEM HERRERA OF [facility] | [facility] | [address] | | | TESTS | | | [...] + + + + | PRODUCT | [id number] | | [facility] | | | UNIT [...] + + + + | EXPIRATION | [id number] | | [facility] | | | DATE [...] + + + + | BLOOD | [id number] | | [facility] | | | PRODUCT [...] OF | [address] | [place] [address] | | | PATHOLOGY | [address] [...] + + + + | PRODUCT | [id number] | | [facility] | | | UNIT [...] + + + + | EXPIRATION | [id number] | | [facility] | | | DATE [...] + + + + | BLOOD | [id number] | | [facility] | | | PRODUCT [...] OF | [address] | [place] [address] | | | PATHOLOGY | [address] | | | + + + + + ED INFORMATION EXCHANGE (03/21/2016 6:36 PM PDT) + + + + + + | Component | Value | Ref Range | Performed | Pathologist | | | | | At | Signature | + + + + + + | LYNN PID | [id number] | | [facility] | | | | [id number] | | [facility] | | | | [...] | | | 03/21/2016 18:35 [facility] and | | | [facility] [place] Emergency [address]. Neoplasm | | | of unspecified behavior [...] Location ------ --------- 2 | | | [facility] [address] [facility] | | | [facility] 5 Total Note: Visits indicate total | | | known visits. | | | | | | --- CARE PROVIDERS Name | | | Phone Type | | | Service Dates ---- | | | ----- ---- | | | [facility] | | | [phone] Primary Care Unknown - Current | | | [facility] Unknown | | | Primary Care Unknown - Current DOCTOR JOSÉ LUIS at [facility] | | | [facility] Unknown Primary Care | | | Unknown - Current TIAN DE JESUS | | | [id number] Primary Care 01/26/2016 - | | | Current [facility] | | | [id number] Primary Care 01/24/2016 - Current | | + + + + + + + + | Performing | Address | City/State/Zipcode | Phone Number | | Organization | | | | + + + + + | [facility] | [address], | [place], [place] | [phone] | | [employer] | [address] | [address] | | + + + + + [...]
--- OUTSIDE RECORDS SUMMARY | ~2019-06-26 | XMS | Encounter Summary ---
Demographics + + + | Address | [address] | | | [place] [address] | + + + | Home Phone [...] Team Providers + +------+ + | Care Radiation Physicist Name | Role | Phone | + +------+ + | No Pcp Per Patient | PCP | Unavailable | + +------+ + Encounter Details +--------+ + + + + | Date | Type | Department | Care Team | Description | +--------+ + + + + | 07/06/ | Procedure | Diagnostic Imaging | | | | 2017 | Pass | Services at [facility] | | | | | | [address] | | | | | | Marla Abdul Mailcode: | | | | | | [address] | | | | | | [facility] | | | | | | [place], [place] | | | | | | [address] | | | | | | [phone] | | | +--------+ + + + [...]
--- OUTSIDE RECORDS SUMMARY | ~2019-06-26 | XMS | Encounter Summary ---
Demographics + + + | Address | [address] | | | [place] [address] | + + + | Home Phone [...] Team Providers + +------+ + | Care Hat Stock Laminating Machine Operator Name | Role | Phone [...] | 2017 | Pass | Lab at [facility] [address] | | | | | | [address] Mailcode: | | | | | | CH3G [facility] | | | | | | Health and Healing, | | | | | | [facility] 1, 3rd | | | | | | Floor [place], [place] | | | | | | [address] | | | | | | [phone] | | | +--------+ + + + [...]
--- OUTSIDE RECORDS SUMMARY | ~2019-06-26 | XMS | Encounter Summary ---
Demographics + + + | Address | [address] | | | [place] [address] | + + + | Home Phone [...] Team Providers + +------+ + | Care Adult Specialist Name | Role | Phone | [...] | Post-discharge | | 2016 | | [facility] [address] | [address] | follow-up (s/p | | | | Ave Mailcode: CH8N | [facility] [place] | discharge 03/28/16: | | | | [place] [facility] | [address] | Right-sided T8 and | | | | and Healing, | [phone] | T9 hemilaminectomy & | | | | | | resection of tumor | | | | Floor [facility] [place] | | (dos: 03/24/16) ) | | | | [address] | | | | | | [phone] | | | +--------+ + + + [...]
--- OUTSIDE RECORDS SUMMARY | ~2019-06-26 | XMS | Encounter Summary ---
Demographics + + + | Address | [address] | | | [place] [address] | + + + | Home Phone [...] Providers + +------+ + | Care Certified Nurse Midwife Name | Role | Phone | + [...] | spinal cord | Rd [facility] | [place], [place] | | | | | tumor with | Hospital | [address] | | | | | right leg | [place], [place] | Phone: | | | | | weakness. | [address] | [phone] | | | | | | Phone: | Fax: | | | | | | [phone] | [phone] | +--------+--------+ + + + + Encounter [...] | | Ave Mailcode: CH8N | Ave [place], [place] | | | | | [facility] | [address] | | | | | and Healing, | [phone] | | | | | Building | | | | | | Floor [place], [place] | | | | | | [address] | | | | | | [phone] | | | +--------+---------+ + + + [...] h aving her daughter, Joey's, first birthday constitution party in 11 days. Ht 1.6 m [...] will be after her daughter's first birthday constitution party in . 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
--- OUTSIDE RECORDS SUMMARY | ~2019-06-26 | XMS | Encounter Summary ---
Demographics + + + | Address | [address] | | | [place] [address] | + + + | Home Phone [...] Team Providers + +------+ + | Care Cribbing Setter Name | Role | Phone | + +------+ + | Clare Mendoza MD | PCP | | + +------+ + Encounter Details +--------+ + + + + | Date | Type | Department | Care Team | Description | +--------+ + + + + | 01/28/ | Document-Sc | Health Information | Unknown . | | | 2017 | anned | Services [address] | | | | | | [address] | | | | | | Mailcode: OP17Darion | | | | | | [facility] | | | | | | [place], [place] | | | | | | [address] | | | | | | [phone] | | | +--------+ + + + [...]
--- OUTSIDE RECORDS SUMMARY | ~2019-06-26 | XMS | Encounter Summary ---
Demographics + + + | Address | [address] | | | [place] [address] | + + + | Home Phone [...] Team Providers + +------+ + | Care Survey Researcher Name | Role | Phone | + +------+ + | Clare Mendoza MD | PCP | | + +------+ + Encounter Details +--------+ + + + + | Date | Type | Department | Care Team | Description | +--------+ + + + + | 04/10/ | ED Progress | Epic at [facility] | Anthony Olea NP | ED Progress Note | | 2016 | | [address] | [facility] | | | | Note-Transc | [place], [place] | Hospital [address] | | | | ribed | [address] | Ave [place], [place] | | | | | | [address] | | | | | | | [...]
--- OUTSIDE RECORDS SUMMARY | ~2019-06-26 | XMS | Encounter Summary ---
Demographics + + + | Address | [address] | | | [place] [address] | + + + | Home Phone [...] Team Providers + +------+ + | Care Top Lift Nailer Name | Role | Phone | + [...] [facility] | | | | | [place], [place] | [place], [place] | | | | | [address] | [address] | | | | | [phone] | | | +--------+ + + + [...]
--- OUTSIDE RECORDS SUMMARY | ~2019-06-26 | XMS | Encounter Summary ---
Demographics + + + | Address | [address] | | | [place] [address] | + + + | Home Phone [...] Providers + +------+ + | Care Commercial Subcontractor Name | Role | Phone | + [...] | | | | | OCCUPATIONAL | [facility], | | | | | | THERAPY | [place] | | | | | | REFERR[place] | [address] | | | | | | | Phone: | | | | | | | [phone] | | | | | | | Fax: | | | | | | | [phone] | | +--------+--------+ + + + + [...] | | | | | PHYSICAL | [place], | | | | | | THERAPY | [place] | | | | | | REFERRAL | [address] | | | | | | | Phone: | | | | | | | [phone] | | | | | | | Fax: | | | | | | | [phone] | | +--------+--------+ + + + + [...] + + | 01/11/ | Hospital | [facility] [address] | Miguel Powell, | | | 2017 - | Encounter | [place] | [address] [facility] | | | | | /[id number] [facility] | [address] | | | 01/18/ | | HOSPITAL [place], | [place], [place] | | | 2017 | | [place] [address] | [address] | | | | | [phone] | [phone] | | | | | | | | | | | | Bin Li MD | | | | | | Sascha Monk, | | | | | | [address] | | | | | | [place], [place] | | | | | | [address] | | | | | | [phone] | | | | | | | | | | | | Rajinder Luis MD | | | | | | [address] | | | | | | [place], [place] | | | | | | [address] | | | | | | [phone] | | | | | | | [...] Luis MD PCP: Clare Chowdary MD Service: [facility] Neurosurgery Diagnoses Principal Final [...] the attending providers, resident providers, and [facility]. Post operatively, the patient was [...] rehabilitation team and was seen by a Hand Bulldozer with recommendation for [facility] upon discharge. While on the hospital floor, the patient tolerated oral intake sufficient to maintain nutri tion and hydration. The surgical wound remained clean, dry, and intact without signs concern ing for infection. The patient was felt appropriate for discharge to [facility] on 01/18/2017 , and the patient and/or family members agree with this course of action. The patient will need to have her slim removed around 2 weeks post-op. This can either b e done at her post-op clinic visit or at [facility] by a provider and then cancel the [...] be on the 12th floor at the [facility] on the [facility] located at [address] [place] [address]. Please call [phone] if you have any questions or concerns before your appointment time. If you are still admitted to [facility] at the time of this appointment, the providers at [facility] can remove your slim. Please then make a 6 week post-op visit to see Raegan Doss PA-C in [facility] rosurgery clinic for routine follow up. You can call [phone] to make this appointment. PCP:Clare Chowdary MD [...] 01/28/17. If you are still admitted to [facility] when your slim need to come out, the providers at [facility] c an remove your slim. Please then make a 6 week post-op visit to see Raegan Doss PA-C in Neurosurgery clinic for routine follow up. You can call [phone] to make this appointmen t. Special Instructions/Tests: N/A Condition On Discharge: Good Vital Signs at discharge as appropriate: BP: 109/55 (01/18/17450) Pulse: 64 (01/18/17450) Resp: 14 (450) Weight: 78 kg (171 lb 15.3 oz) (01/15/17 0000) Discharge Patient To: Interhospital Transfer - [facility] Inpatient Rehab Does patient have a planned readmission: No Discharge Summary Completed?: Yes. 01/18/2017 Discharging Provider: Raegan Doss PA-C Date Completed: 01/18/2017 Time Completed: 10:56 AM Discharging Attending: [place] [address] documented in this encounter Medications at Time [...] patient and recommended a short stay at [facility] -Patient has required several straight caths [...] prevention, appreciate PT/OT involvement with recs for [facility]. ID/Heme: Afebrile since admission on 01/11. DVT ppx: SCDs while in bed, ppx lovenox 40mg inj. qHS. Dispo: Patient is medically stable for discharge. CM working on placement at [facility] for discharge today. Raegan Doss PA-C [facility] [address] [address]/[place] [address] dams, PHILIPPE Mena - 01/17/2017 10:28 AM [...] Thoracic incision: flat, dry, intact. No erythema. [place] present. Sensation: Patchy numbness in BLE. Decreased [...] siatry consult placed for possible admission to [facility]. ID/Heme: Afebrile since admission on 01/11. DVT ppx: SCDs while in bed, ppx lovenox 40mg inj. qHS. Dispo: Pending physiatry consult. Appreciate CM involvement. Raegan Doss PA-C [facility] [address] [address] [address] dams, PHILIPPE Mena - 01/16/2017 [...] incision: flat, dry, no erythema, no fluctuance. [place] present. Sensation: Patchy sensation loss in BLE, [...] or creams, please. Okay to shower/wash incision amriola ly. Will remove slim at 2 weeks [...] Will discuss with CM. Raegan Doss PA-C [facility] [address] [address]/[address] [place] [address] dams, PHILIPPE Mena - 01/15/2017 9:02 AM [...] O2 Delivery Device: None (room air) (01/15/17 0578) 24 Hour Vital Min/Max: Systolic (24hrs), Av [...] and possible rehab needs. Raegan Doss PA-C [facility] [address] [facility] [address] uKaci guerra M D - 01/14/2017 9:42 AM PDT . Neuroscience Intensive Care Unit Attending Progress Note Attending Pager #[phone] Documentation Date 01/13/17 1450 Day of Procedure [...] team members Provider Role Specialty Ipt Neurosurgery #03630 Treatment Team Neurological Surgery Ipt Critical Care Nsicu #18408 Treatment Team -- Code Status Code Status [...] on counseling and coordination of care.Seen with PA/SURGICAL CONSULTANT Ryan. Please see their note for details. I reviewed the documented findings, all data and the recent imaging available. Date of Service: 01/14/2017 Kaci Mon MD Author:Kaci Mon MD [address] [address]Rbezmhrkjzcurw signed by Kaci Mon MD at 01/14/2017 [...] Aaron MD Neurosurgery, PGY-2 On-call resident pager [phone] 9:03 AM 01/14/2017 Nay Rios [facility] - 01/14/2017 7:30 AM PDT . Neuroscience Intensive Care Unit Team Progress Note NSICU ASSIGNED #[id number] Documentation Date 01/13/17 1450 Day of Procedure [...] team members Provider Role Specialty Ipt Neurosurgery #36126 Treatment Team Neurological Surgery Ipt Critical Care Nsicu #95244 Treatment Team -- Patient Lines/Drains/Airways Status Active [...] of Service: 01/14/2017 AIXA Sanders EPIC DEPARTMENT: [facility] ICU NEURO Place of Service:- Inpatient CSN: [id number] Suggested Modifier: None Suggested CPT: TO SUPERVISING NURSE AIXA Orozco Author:AIXA Sanders [address] [address]Hhbiipeylchfpe signed by AIXA Orozco at 01/14/2017 11:26 AM Stephie Rodríguez MD - 01/13/2017 9:35 PM PDTFormatting of this note might be differen t from the original. . Neuroscience Intensive Care Unit Attending Progress Note Attending Pager #[phone] Documentation Date 01/13/17 1450 Day of Procedure [...] team members Provider Role Specialty Ipt Neurosurgery #59448 Treatment Team Neurological Surgery Ipt Critical Care Nsicu #53834 Treatment Team -- Code Status Code Status [...] on counseling and coordination of care.Seen with PA/SURGICAL CONSULTANT Ms. Gonzalez. Please see their note for details. I reviewed the documented findings, all data and the recent shmuel ging available. Date of Service: 01/13/2017 [facility] DEPARTMENT: [facility] ICU NEURO Place of Service:- Inpatient CSN: [id number] Suggested Modifier: GC - Resident Involved Suggested CPT: TO SUPERVISING NURSE Author:Stephie Anders MD [place] [address] [place] [id number] signed by Stephie Anders MD at 01/13/2017 [...] Aaron MD Neurosurgery, PGY-2 On-call resident pager [phone] 8:22 PM 01/13/2017 Cesar Najera MD - [...] setting of fever to 103. [facility] and [facility]. Concern for [...] MD Neurosurgery Resident 11:07 PM, 01/12/2017 Pager #[phone] acey Pimentel P A-C - 01/12/2017 8:42 [...] 01/14 for tumor resection. Kacey Pimentel PA-C [facility] [address] [place] [address] Chavo Robert MD - 01/11/2017 9:27 PM [...] midline No pronator drift Delt Bi Tri Plastic Top Assembler HF KE KF DF PF Left 5 [...] now Chavo Penn MD Neurosurgery Resident Pager #[phone] signed by Chavo Penn MD at 01/11/2017 [...] [facility] | [address] | [place] [address] | | | SERVICES, CORE | PARK [...] | | | LABORATORY | | | [place] | | | SERVICES, | | | [...] | + + + + + | [facility] Bunch | [address] | [place] [address] | | | SERVICES, NINO | JEAN [...] [facility] | [address] | [place] [address] | | | SERVICES, CORE | PARK [...] | | | LABORATORY | | | [place] | | | SERVICES, | | | [...] LABORATORY | [address] | [place] [address] | | | SERVICES, CORE | PARK [...] | + + + + + | [facility] | [address] | [place] [address] | | | HORACIO, NINO | JEAN [...] | | | LABORATORY | | | [place] | | | SERVICES, | | | [...] | + + + + + | [facility] | [address] | [place] [address] | | | SERVICES, CORE | [address] | | | + + + + + PROCEDURE NOTE (01/15/2017 7:18 PM PDT)OPERATION RECORD (01/15/2017 8:11 AM PDT) + + | Procedure Note | + + | Rajinder Luis MD - 01/13/2017 8:53 PM PDT Date of Service: 01/13/2017 Attending | | Surgeon: Rajinder Luis MD Securities Consultant(s): Joby Thibodeaux, | | . Preoperative Diagnosis: [...] the | | operating room on a [facility]. General endotracheal anesthesia was induced [...] dura was reapproximated and closed using 5-0 [place]-Thaddeus suture | | in a running fashion. [...] to a supine position on | | [facility]. She was then extubated by [...] 01/13/2017 19:31:27DT: | | 01/13/2017 20:53:09Job #: [id number] | + + CBC (HEMOGRAM) ONLY (01/15/2017 [...] | + + + + + | [facility] | [address] | [place] [address] | | | SERVICES, CORE | PARK [...] | | | LABORATORY | | | [place] | | | SERVICES, | | | [...] | + + + + + | [facility] | [address] | [place] [address] | | | SERVICES, CORE | JEAN [...] LABORATORY | [address] | [place] [address] | | | NINO LEONARD | JEAN [...] PATTY | [address] | [place], [place] | | | JAVIER POINT OF CARE | [facility] | [address] | | | TESTS | | | [...] BRAMBILA | [address] | [place], [place] | | | ZELALEM HERRERA OF NURIA | [facility] | [address] | | | TESTS | | | [...] | + + + + + | [facility] | [address] | [place] [address] | | | SERVICES, CORE | PARK [...] | + + + + + | [facility] | [address] | [place] [address] | | | SERVICES, CORE | PARK [...] | | | LABORATORY | | | [place] | | | SERVICES, | | | [...] | + + + + + | [facility] | [address] | [place] [address] | | | SERVICES, CORE | JEAN [...] 97 | 60 - 99 mg/dL | [facility] - | | | [...] BRAMBILA | [address] | [place], [place] | | | ZELALEM HERRERA OF CARE | [address] | [address] | | | TESTS | | | [...] BRAMBILA | [address] | [place], [place] | | | ZELALEM HERRERA OF [facility] | [address] | [address] | | | TESTS | | | [...] MARQUAM | [address] | [place], [place] | | | HILL, [facility] | [facility] | [address] | | | TESTS | | | [...] + + + + | PRODUCT | [id number] | | [facility] | | | UNIT [...] + + + + | EXPIRATION | [id number] | | [facility] | | | DATE [...] + + + + | BLOOD | [id number] | | [facility] | | | PRODUCT [...] LABORATORY | [address] | [place] [address] | | | SERVICES, | JEAN CARLOS [...] + + + + | PRODUCT | [id number] | | [facility] | | | UNIT [...] + + + + | EXPIRATION | [id number] | | [facility] | | | DATE [...] + + + + | BLOOD | [id number] | | [facility] | | | PRODUCT [...] | + + + + + | [facility] | [address] | [place] [address] | | | SERVICES, | JEAN CARLOS [...] + + | Performing | Address | City/[facility] | Phone Number | | Organization | | | | + + + + + | MOISE BRAMBIL[facility] | [address] | [place], [place] | | | JAVIER POINT OF [facility] | [address] | [address] | | | TESTS | | | [...] LABORATORY | [address] | [place] [address] | | | SERVICES, SPECIAL | PARK [...] | + + + + + | [facility] | [address] | [place] [address] | | | HORACIO, CORE | JEAN [...] | | Service: IP Intra Op [id number] - [id number] INTRAOPERATIVE NEURO | | | MONITORING IOM: [...] | | Clinical Neurophysiology Department Suggested CPT: 75263 - IOM | | | Remote x 3 hr(s) 08849 - Short Latency EP's Upper AND Lower | | | extremities 06097 - Central Motor EP's Upper AND Lower extremities | | | 92462 - Neuromuscular Junction Test Suggested Diagnosis: D43.4 [...] original | | | | | | [id number]) with cells | | | | | [...] | | | | cs determined by [facility] | | | | | | laboratories. [...] medical | | | | | | record#[id number]. | | | | | | A: [...] + + + + | [facility] | [address] | [place] [address] | | | PATHOLOGY | [address] [...] | + + + + + | [facility] | [address] | [place] [address] | | | SPECIAL HORACIO | JEAN [...] + + + + + | [facility] | [address] | [place] [address] | | | SERVICES, CORE | JEAN [...] | | + +---------+ + + | [facility] RADIOLOGY | | | [...] | [address] | [place] [address] | | | SERVICES, | [address] [...] LABORATORY | [address] | [place] [address] | | | SERVICES, | [address] [...] | + + + + + | [facility] | [address] | [place] [address] | | | NINO LEONARD | JEAN [...] | + + + + + | [facility] | [address] [facility] [facility] [address] | [place] [address] | | | SERVICES, CORE | PARK [...] | + + + + + | [facility] | [address] [facility] [facility] [address] | [place] [address] | | | SERVICES, CORE | PARK [...] | | | LABORATORY | | | [place] | | | SERVICES, | | | [...] | + + + + + | [facility] | [address] [facility] [facility] [address] | [place] [address] | | | NINO LEONARD | JEAN [...] | + + + + + | [facility] | [address] | [place] [address] | | | NINO LEONARD | JEAN [...] and new reporting units as of | [facility] | | 12/10/2013. | LABORATORY | | | SERVICES, NINO | + + + + + + + + | Performing | Address | City/State/Zipcode | Phone Number | | Organization | | | | + + + + + | [facility] | [address] | [place] [address] | | | SERVICES, CORE | JEAN [...] + | [facility] - | [address] | [place] [address] | | | [place] | | | [...] | + + + + + | [employer] [facility] | [address] | [place] [address] | | | HORACIO, NINO | JEAN [...] | [facility] | | | GRAVITY | [place] performed by | | LABORATORY | | [...] LABORATORY | [address] | [place] [address] | | | HORACIO, NINO | JEAN [...] LABORATORY | [address] | [place] [address] | | | SERVICES, CORE | PARK [...] | + + + + + | [facility] | [address] [facility] | [place] [address] | | | SERVICES, NINO | JEAN [...] At | + + + | [id number] This patient has registered at the | [facility] | | [facility] Emergency Department For more | MEDICAL | | information visit: | TECHNOLOGIES | | [email or web address] | | | [email or web address] ED Care Guidelines There are currently no ED Care Guidelines | | | in LYNN for this patient. Please check your facility's medical | | | records system. Recent Emergency Department Visit Summary Admit | | | Date Facility City State Type Major Type Diagnoses or Chief Complaint | | | Jan 11, 2017 [facility] [place] Emergency | | | Emergency 10,800. transfer Jan 11, 2017 [facility] | | | [facility] [place] Emergency Emergency Recent | | | Inpatient Visit Summary No recorded inpatient visits. E.D. Visit | | | Count (12 mo.) Facility Visits [facility] | | | [place] [address] [facility] [address] [place] [address] | | | [facility] 1 Total 6 Note: Visits indicate total | | | known visits. Care Providers Provider PRC Type Phone Fax | | | Service Dates [facility] Primary Care | | | Current CLARE [...] for | | | additional information. 2017 [employer] - | | | [place], [place] - [email or web address] | | + + + + + | Procedure Note | + + | Service Account, Rtf Results Inbound - 01/11/2017 8:40 AM PDT Formatting of this | | note might be different from the original.LYNN?NOTIFICATION?01/11/2017 08:38?ANAID | | QIANA Parsons? patient has registered at the [facility] | | [place] Emergency Department For more information visit: | | [email or web address] ED Care | | GuidelinesThere are currently no ED Care Guidelines in LYNN for this patient. Please | | check your facility's medical records system.Recent Emergency Department Visit | | SummaryAdmit Date Facility [facility] Type Major Type Diagnoses or Chief Complaint Jan | | 2016 [facility] [place] Emergency Emergency 10,800. | | transfer Jan 11, 2017 [facility] [place] Emergency Emergency Recent | | Inpatient Visit SummaryNo recorded inpatient visits. E.D. Visit Count (12 mo.)Facility | | Visits [facility] 2 [facility] 1 [facility] | | [address] 1 Total 6 Note: Visits indicate total known | | visits. Care ProvidersProvider PRC Type Phone Fax Service Dates DEVON VEGA | | [facility] Primary Care Current CLARE CAN Primary Care Current | | TIAN ANTOINE [facility] Oct 16, 2016 - | | [...] additional information. ? 2017 [facility] | | [facility] [place], [place] - [email or web address] | |[facility] 2 | |[facility] 1 | |[facility] 2 | |[facility] 1 | |Total 6 | |Note: Visits indicate total known visits. | | | |Care Providers | |Provider PRC Type Phone Fax Service Dates | |[facility] Primary Care Current | |CLARE IS[facility]LLFORMERLY [facility] Primary Care Current | |TIAN ANTOINE [facility] Oct 16, 2016 - Current | | | |The above information is provided for the sole purpose of patient treatment. Use of this in formation beyond the terms of Data Sharing Memorandum of Understanding and License Agreement is prohibited. In | |certain cases not all visits may be represented. Consult the aforementioned facilities for additional information. | |? 2017 [employer] - [place], [place] - [email or web address] | + + + + + + + | Performing | Address | City/State/Zipcode | Phone Number | | Organization | | | | + + + + + | [facility] | [address], | [place], [place] | [phone] | | TECHNOLOGIES | [address] | [address] | | + + + + + [...] | | | | last modification) on [facility] 01/13/17 | | | | | [...] | | | HOURS, First dose on [facility] 01/11/17 | | PM PDT | [...] | | | | | | dose, [facility] 01/11/17 at 1330 | | | | | | + +---------+ +-------+---+---+ + +---+ | | | + +---+ | glycopyrrolate (ROBINUL) | | | injection 0.2 mg 0.2 mg, | | | intravenous, EVERY 2 HOURS | | | NEEDED, 3 doses, Starting Sun | | | 01/14/17 at 0220, Until [facility] 01/18/17 | | | at 2055, [...] | | | | | NEEDED, Starting [facility] 01/11/17 at | | | | [...] | | | | | NEEDED, Starting [facility] 01/11/17 at | | AM PDT [...]
--- OUTSIDE RECORDS SUMMARY | ~2019-06-26 | XMS | Encounter Summary ---
Demographics + + + | Address | [address] | | | [place] [address] | + + + | Home Phone [...] Providers + +------+ + | Care Sales Outfitter Name | Role | Phone | + [...] | | | | | tumor | [facility] [place] | | | | | | Procedures | [address] | | | | | | MRI SPINE | Phone: | | | | | | THOR / LUMB | [phone] | | | | | | WWO CONTRAST | Fax: | | | | | | | [phone] | | + +--------+ + + + [...] | | | | | NEUROLOGY | [place], [place] | Physician's | | | | | | [address] | Pavilion | | | | | | Phone: | [place], [place] | | | | | | [phone] | [address] | | | | | | Fax: | Phone: | | | | | | [phone] | [phone] | | | | | | | Fax: | | | | | | | [phone] | +--------+--------+ + + + + Consultation [...] | | | | | Glioneuronal | [address] | [address] | | | | | tumor | [address] | Hair Gutiérrez | | | | | Procedures | [place], [place] | [place], | | | | | CONSULT TO | [address] | [place] | | | | | RADIATION | Phone: | [address] | | | | | ONCOLOGY | [phone] | Phone: | | | | | | Fax: | [phone] | | | | | | [phone] | Fax: | | | | | | | [phone] | +--------+--------+ + + + + Encounter Details +--------+ + + + + | Date | Type | Department | Care Team | Description | +--------+ + + + + | 10/11/ | Documentati | Neurosurgery at | Tony Mancilla | | | 2019 | on | [facility] [address] Vivek Fisher MD [address] | | | | | Shwetha Mailcode: CH8N | [address] G[address]rez | | | | | [facility] | [place], [place] | | | | | natacha Carbajal, | [address] | | | | | [place] [address] [facility] | [phone] | | | | | [place], [place] | | | | | | [address] | | | | | | [phone] | | | +--------+ + + + [...]
--- OUTSIDE RECORDS SUMMARY | ~2019-06-26 | XMS | Encounter Summary ---
Demographics + + + | Address | [address] | | | [place] [address] | + + + | Home Phone [...] Team Providers + +------+ + | Care Engraver Apprentice Decorative Name | Role | Phone | + +------+ + | No Pcp Per Patient | PCP | Unavailable | + +------+ + Encounter Details +--------+ + + + + | Date | Type | Department | Care Team | Description | +--------+ + + + + | 12/06/ | Telephone | Neurosurgery at | Rajinder Luis MD | | | 2016 | | [facility] [address] | [address] | | | | | [address] Mailcode: CH8N | [place], [place] | | | | | [place] for [facility] | [address] | | | | | and Healing, | [phone] | | | | | [facility] 8th | | | | | | Floor [place], [place] | | | | | | [address] | | | | | | [phone] | | | +--------+ + + + [...]
--- OUTSIDE RECORDS SUMMARY | ~2019-06-26 | XMS | Encounter Summary ---
Demographics + + + | Address | [address] | | | [place] [address] | + + + | Home Phone [...] Team Providers + +------+ + | Care Heel Coverer Machine Operator Name | Role | Phone [...] | spinal cord | Rd [facility] | [place], [place] | | | | | tumor with | Hospital | [address] | | | | | right leg | [place], [place] | Phone: | | | | | weakness. | [address] | [phone] | | | | | | Phone: | Fax: | | | | | | [phone] | [phone] | +--------+--------+ + + + + Encounter [...] | | Ave Mailcode: CH8N | Ave [place], [place] | | | | | [facility] | [address] | | | | | and Healing, | [phone] | | | | | Building | | | | | | Floor [place], [place] | | | | | | [address] | | | | | | [phone] | | | +--------+---------+ + + + [...] h aving her daughter, Joey's, first birthday democrat in 11 days. Ht 1.6 m (5' [...] will be after her daughter's first birthday democrat in . 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
--- OUTSIDE RECORDS SUMMARY | ~2019-06-26 | XMS | Encounter Summary ---
Demographics + + + | Address | [address] | | | [place] [address] | + + + | Home Phone [...] Team Providers + +------+ + | Care Skip Operator Name | Role | Phone | [...] | Post-discharge | | 2015 | | [facility] [address] | [address] | follow-up (s/p | | | | Ave Mailcode: CH8N | [place], [place] | admission 05/06/15 - | | | | [place] for [facility] | [address] | : anterior | | | | and Healing, | [phone] | cervical diskectomy | | | | | | and fusion at C6-7) | | | | Floor [place], [place] | | | | | | [address] | | | | | | [phone] | | | +--------+ + + + [...]
--- OUTSIDE RECORDS SUMMARY | ~2019-06-26 | XMS | Encounter Summary ---
Demographics + + + | Address | [address] | | | [place] [address] | + + + | Home Phone [...] Team Providers + +------+ + | Care Shipboard Intelligence Analyst Name | Role | Phone | [...] | Event | [address] | [address] | | | | | [facility] | [address] | | | | | Hospital Admitting | [place], [place] | | | | | Desk Located on the | [address] | | | | | 9th floor | [phone] | | | | | [place], [place] | | | | | | [address] | Ray Rubin, | | | | | | [address] | | | | | | [address] | | | | | | [place], [place] | | | | | | [address] | | | | | | [phone] | | | | | | | [...] + + + | Periph | [facility]; Left; | 09/09/151901 by | 09/11/151658 [...] 11:43 | | | | | Starting [facility] 09/09/15 at 2343, | | PM PST | | | | | Until [facility] 09/09/15 at 2357 | | | | [...]
--- OUTSIDE RECORDS SUMMARY | ~2019-06-26 | XMS | Clinical Summary ---
Demographics + + + | Address | [address] | | | [place] [address] | + + + | Home Phone | | + + + | Preferred Language | Unknown | + + + | Marital Status | Unknown | + + + | Restorationism Affiliation | Unknown | + + + | Race | Unknown | + + + | Ethnic Group | Unknown | + + + Author + + + | Author | [facility] | | | and [place] | + + + | Organization | [facility] | | | and [...] [place], [place] | | | | | [address] | | + + + + + Care Team Providers + +------+ + | Care Slab Lifting Engineer Name | Role | Phone | [...] - | | | | | Female 3-dose | 8 | | | | series) | | | | + + + + + | Vaccine: | | | | | Dtap/Tdap/Td (1 - | 2 | | | | Tdap) | | [...] | [employer] | [employer] | [id number] | 05/06/ | [phone] | | [employer] | | MEDICAID HMO [...] | | 6 (Home) | [place] [address] | + +--------+ +--------+ + + | Matt Fagan T | Person | Self | [birth year] | [address] | | | al/Fam | | 1990 | [phone] | [address] | | | mehul | | | 6 (Home) | [place] [address] | + +--------+ +--------+ + + Advance Directives + + + + + | Type | Date Recorded | Patient | Explanation | | | | Disability Insurance Claim Examiner | | + + + + + | Power of | | | | | Resident Caregiver | | | | + + + + + | Advance | | | | | Directive | | | | + + + + +"
--- OUTSIDE RECORDS SUMMARY | ~2019-06-26 | XMS | Encounter Summary ---
Demographics + + + | Address | [address] | | | [place] [address] | + + + | Home Phone [...] Team Providers + +------+ + | Care Teletypewriter Operator Name | Role | Phone | [...] | 2017 | Pass | Services at [facility] | | | | | | [address] | | | | | | Marla Abdul Mailcode: | | | | | | [address] [place] | | | | | | [facility] | | | | | | [place], [place] | | | | | | [address] | | | | | | [phone] | | | +--------+ + + + [...]
--- OUTSIDE RECORDS SUMMARY | ~2019-06-26 | XMS | Encounter Summary ---
Demographics + + + | Address | [address] | | | [place] [address] | + + + | Home Phone [...] Team Providers + +------+ + | Care Crowning Inspector Name | Role | Phone | [...] spine tumor | PA-C [address] | [address] [place] | | | | | Procedures | [address] | Rd | | | | | MRI SPINE | [place], Mailcode: | | | | | LUMBAR WWO | [place] | [address] | | | | | [place] | [address] | [place] | | | | | MRI, LUMBAR | Phone: | Research | | | | | SPINE COMBO | [phone] | [place] | | | | | | Fax: | [place], [place] | | | | | | [phone] | [address] | | | | | | | Phone: | | | | | | | [phone] | | | | | | | Fax: | | | | | | | [phone] | +--------+--------+ + + + + Reason [...] [address] | | | | | [place] EST | [facility] | [place], [place] | | | | | PATIENT | Rd | [address] | | | | | LEVEL V | [place], [place] | Phone: | | | | | | [address] | [phone] | | | | | | | Fax: | | | | | | | [phone] | +--------+--------+ + + + + Encounter Details +--------+---------+ + + + | Date | Type | Department | Care Team | Description | +--------+---------+ + + + | 11/26/ | Office | [facility] at | Raegan Doss, | 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 She has recently decided to move to [place] where her boyfriend lives. Ht 1.6 m [...] wwo in 1 year [facility] [address] [place] [address] documented in this encounter Plan of [...]
--- OUTSIDE RECORDS SUMMARY | ~2019-06-26 | XMS | Encounter Summary ---
Demographics + + + | Address | [address] | | | [place] [address] | + + + | Home Phone [...] Team Providers + +------+ + | Care Advertising Solicitor Name | Role | Phone | + [...] | | | [place] Mailcode: | [place], [place] | | | | | [facility] | [address] | | | | | and Healing, | [phone] | | | | | [place] [address] | | | | | | [place], [place] | | | | | | [address] | | | | | | [phone] | | | +--------+ + + + [...] COMBO2 | | | | | | Assay([employer] 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
--- OUTSIDE RECORDS SUMMARY | ~2019-06-26 | XMS | Encounter Summary ---
Demographics + + + | Address | [address] | | | [place] [address] | + + + | Home Phone [...] Providers + +------+ + | Care Senior Health Physics Technician Name | Role | Phone | + +------+ + | Tiff Chapin | PCP | | + +------+ + Encounter Details +--------+ + + + + | Date | Type | Department | Care Team | Description | +--------+ + + + + | 05/11/ | Document-Sc | Health Information | Unknown . | | | 2014 | anned | Services [address] | | | | | | [address] | | | | | | Mailcode: OP17A | | | | | | [facility] | | | | | | [place], [place] | | | | | | [address] | | | | | | [phone] | | | +--------+ + + + [...]
--- OUTSIDE RECORDS SUMMARY | ~2019-06-26 | XMS | Encounter Summary ---
Demographics + + + | Address | [address] | | | [place] [address] | + + + | Home Phone [...] Team Providers + +------+ + | Care Decorator Inspector Name | Role | Phone | [...] | on | AMBULATORY [address] | [facility] [address] [facility] | | | | | [facility] [address] | [facility] | | | | | Mailcode: CH6A | [place], [place] | | | | | [place], [place] | [address] | | | | | [address] | [phone] | | | | | [phone] | | | +--------+ + + + [...]
--- OUTSIDE RECORDS SUMMARY | ~2019-06-26 | XMS | Encounter Summary ---
Demographics + + + | Address | [address] | | | [place] [address] | + + + | Home Phone [...] Team Providers + +------+ + | Care Guest Relations Receptionist Name | Role | Phone | + [...] | | | | | [place]la [place], | | | | | | [place] [address] | | | +--------+--------+ + + + [...]
--- OUTSIDE RECORDS SUMMARY | ~2019-06-26 | XMS | Encounter Summary ---
Demographics + + + | Address | [address] | | | [place] [address] | + + + | Home Phone [...] Team Providers + +------+ + | Care Hydroelectric Station Operator Name | Role | Phone | + +------+ + | Clare Mendoza MD | PCP | | + +------+ + Encounter Details +--------+ + + + + | Date | Type | Department | Care Team | Description | +--------+ + + + + | 04/10/ | ED Progress | [facility] at [facility] | Anthony Olea NP | ED Progress Note | | 2016 | | [address] | [facility] | | | | Note-Transc | [place], [place] | Hospital [address] | | | | ribed | [address] | Ave [place], [place] | | | | | | [address] | | | | | | | [...]
--- OUTSIDE RECORDS SUMMARY | ~2019-06-26 | XMS | Encounter Summary ---
Demographics + + + | Address | [address] | | | [place] [address] | + + + | Home Phone [...] Team Providers + +------+ + | Care Cover Mat Machine Operator Name | Role | Phone [...] | | | | | | [facility] | | | | | | Hospital Admitting | | | | | | Desk Located on the | | | | | | 9th floor | | | | | | [place], [place] | | | | | | [address] | | | +--------+ + + + [...]
--- OUTSIDE RECORDS SUMMARY | ~2019-06-26 | XMS | Encounter Summary ---
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 | | | | [phone] | | (dos: )) | +--------+ + [...]
--- OUTSIDE RECORDS SUMMARY | ~2019-06-26 | XMS | Encounter Summary ---
Demographics + + + | Address | [address] | | | [place] [address] | + + + | Home Phone [...] Team Providers + +------+ + | Care Dental Laboratory Assistant Name | Role | Phone | + +------+ + | Tiff Chapin | PCP | | + +------+ + Encounter Details +--------+ + + + + | Date | Type | Department | Care Team | Description | +--------+ + + + + | 05/11/ | Document-Sc | Health Information | Unknown . | | | 2014 | anned | Services [address] | | | | | | [address] | | | | | | Mailcode: OP17A | | | | | | [facility] | | | | | | [place], [place] | | | | | | [address] | | | | | | [phone] | | | +--------+ + + + [...]
--- OUTSIDE RECORDS SUMMARY | ~2019-06-26 | XMS | Encounter Summary ---
Demographics + + + | Address | [address] | | | [place] [address] | + + + | Home Phone [...] Team Providers + +------+ + | Care Asset Accountant Name | Role | Phone | [...] + + | 05/07/ | Hospital | [facility] [address] | Christine Gilbert MD | | | 2014 - | Encounter | [address] | [address] | | | | | [id number] [facility] | [facility] | | | 05/08/ | | [facility] [place], | [place], [place] | | | 2015 | | [place] [address] | [address] | | | | | [phone] | [phone] | | | | | | | | | | | | Rajinder Luis MD | | | | | | [address] | | | | | | [place], [place] | | | | | | [address] | | | | | | [phone] | | | | | | | [...] Rajinder Luis MD PCP: PATRIC Todd Service: [facility] Neurosurgery Diagnoses Principal Final Diagnosis: Tumor [...] Instructions/Tests: Please call the Neurosurgery clinic at [phone] with any questions Sunday to Sunday 8 A M - 4 PM. After hours, call [facility] at [phone] and ask to speak with the Neurosurgery resi dent phone banker if you have any of the following: [...] RLE symptoms for 1.5 years, referred to [facility] ER by Dr Garrison at [place] for MRI finding of intramedullary th oracic [...] left, toes downgoing on left, toes m cadd[place] to plantar stim on right Labs: Lab [...] RLE symptoms for 1.5 years, referred to [facility] ER by Dr Garrison at [place] for MRI finding of intramedullary th oracic [...] Luis next week. Signed: Chirag Thorne MD, parts specialist Neurological Surgery [facility] [place] Pager: [phone] Jay Emmanuel MD - 05/08/2015 5:31 PM [...] Jay Still MD PGY-2 Neurological Surgery Pager [phone] documented in this enco unter Plan of [...] | | + +---------+ + + | [facility] DEPARTMENT OF | | | | [...] | | | | | T2 and Z2qytlkqrac body | | | | | | [...] [facility] | [address] | [place] [address] | | | SERVICES, CORE | PARK [...] LABORATORY | [address] | [place] [address] | | | SERVICES, CORE | PARK [...] the MDRD equation recommended by the | [facility] | | National Kidney Disease Education [...] | + + + + + | [facility] | [address] | [place] [address] | | | [address] | [address] | | | + + + + + PRODUCT - PLATELET PHERESIS LEUKOREDUCED (05/08/2015 2:08 AM PDT) + + + + + + | Component | Value | Ref Range | Performed | Pathologist | | | | | At | Signature | + + + + + + | PRODUCT | [id number] | | [facility] | | | DESCRIPTION | | | DEPARTMENT | | | | | | OF | | | | | | PATHOLOGY | | + + + + + + | PRODUCT | [id number] | | [facility] | | | UNIT [...] + + + + | EXPIRATION | [id number] | | [facility] | | | DATE [...] + + + + | BLOOD | [id number] | | [facility] | | | PRODUCT [...] OF | [address] | [place] [address] | | | PATHOLOGY | [address] [...] | + + + + + | [facility] [employer] | [address] | [place] [address] | | | SERVICES, CORE | JEAN [...] LABORATORY | [address] | [place] [address] | | | SERVICES, | [address] [...] | + + + + + | [employer] | [address] | [place] [address] | | | SERVICES, | [address] [...] | + + + + + | [employer] | [address] | [place] [address] | | | SERVICES, CORE | PARK [...] | + + + + + | [facility] | [address] | [place] [address] | | | SERVICES, CORE | PARK [...] | + + + + + | [facility] | [address] | [place] [address] | | | SERVICES, CORE | JEAN [...]
--- OUTSIDE RECORDS SUMMARY | ~2019-06-26 | XMS | Encounter Summary ---
Demographics + + + | Address | [address] | | | [place] [address] | + + + | Home Phone [...] Team Providers + +------+ + | Care Ruby Engineer Name | Role | Phone | + +------+ + | No Pcp Per Patient | PCP | Unavailable | + +------+ + Encounter Details +--------+ + + + + | Date | Type | Department | Care Team | Description | +--------+ + + + + | 06/04/ | Procedure | Radiology/Imaging | | | | 2017 | Pass | Lab at [facility] [address] | | | | | | [address] Mailcode: | | | | | | CH3G [facility] | | | | | | Health and Healing, | | | | | | [facility] 1, 3rd | | | | | | Floor [place], [place] | | | | | | [address] | | | | | | [phone] | | | +--------+ + + + [...]
--- OUTSIDE RECORDS SUMMARY | ~2019-06-26 | XMS | Clinical Summary ---
Demographics + + + | Address | [address] | | | [place] [address] | + + + | Home Phone [...] Providers + +------+ + | Care It Infrastructure Architect Name | Role | Phone | + +------+ + | No Pcp Per Patient | PCP | Unavailable | + +------+ + Source Comments MOISE is fully live on both EpicCare Ambulatory and EpicCare InPatient.[facility] Allergies + + + + [...] | | vasopressors-Continue Decadron: 3 day rapid cxjcn-Rxlw-rg abx | | per Neurosurgery-HOB flat since [...] | Last Assessment & Plan: -Admit to [facility]; Dr. Michelle Luis | | primary. 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 -postop abx; Ancef p9m-DEX <160 with MAP>65 for | | adequate [...] | +--------+ + + + + | 06/26/ | Hospital | Adult Acute Care | April Beck MD | | | 2018 | Encounter | | | | +--------+ + + + + | 06/26/ | Intake | | | N/A | | 2018 | | | | | +--------+ + + + + | 06/03/ | Telephone | Neurological Surgery | Raegan Doss, | | | 2018 | | | PA-C | | +--------+ + + + + from Last 3 Months Immunizations + + + + | Name | Administration Dates | Next Due | + + + + | RAS-Uyw-GcdS | 11/06/1999, 04/07/1999, 01/05/1995, | | | [...] | | + + + + | Polio, NOS | 04/07/1999, 01/05/1995, 09/05/1993, | | [...] | | | [employer] | | | [id number] | | [id number]: Qty: 1 on | | | LIFESCIENCE | | | / | | 05/13/2015 by Rajinder Luis | | | S | | | /[id number] | | MD Phillip at [facility] INPATIENT REV | | | | | | 25X | | LOC | | | | | | | + +------+--------+ +--------+--------+--------+ | Sealant Duraseal Low Swell - | | [place]lin | [employer] | | 06/07/ | [id number] | | [id number]: Qty: 1 on | | e: | LIFESCIENCE | | 2017 | / | | 03/22/2016 by Rajinder Luis | | Spine | S | | | /[id number] | | MD Phillip at [facility] INPATIENT REV | | | | | | 59X | | LOC | | | | | | | + +------+--------+ +--------+--------+--------+ | [employer]al[employer] Hemostatic Floseal | | N/A: | SH[facility] | | 05/25/ | [id number] | | Matrix Needle Free Adapter | | Spine | HEALTHCARE | | 2017 | 0 / | | 5ml - [id number]: | | | | | | /[id number] | | Qty: 1 on 01/13/2017 by | | | | | | 523 | | Rajinder Luis MD at [facility] | | | | | | | | INPATIENT REV LOC | | | | | | | + +------+--------+ +--------+--------+--------+ | [employer] Hemostatic Floseal | | N/A: | [facility] | | / | [id number] | | Matrix Needle Free Adapter | | Spine | HEALTHCARE | | 2019 | 8 / | | 5ml - [id number]: | | | | | | /[id number] | | Qty: 1 on 07/08/2018 by | | | | | | 187 | | Rajinder Luis MD at [facility] | | | | | | | | INPATIENT REV LOC | | | | | | | + +------+--------+ +--------+--------+--------+ + + | Description:Given to surgical | | field | + + + +---+--------+ +---+--------+--------+ | [employer] Hemostatic Floseal | | [place]lin | [facility] | | 12/06/ | [id number] | | Matrix Needle Free Adapter | | e: | HEALTHCARE | | 2020 | 8 / | | 5ml - [id number]: | | Spine | | | | /[id number] | | Qty: 1 on 10/03/2018 by | | | | | | 262 | | Rajinder Luis MD at [facility] | | | | | | | [...] B | | for | | [place], [place] | | | | | | all | | [address] | | | | | | dates | | | | + +--------+ +--------+ + +--------+ | MEDICARE | MEDICA | xxxxxxxxxxx | 11/07/19 | [id number] | [address] | Medica | | | RE A & | | 18-Pre | 1 | [address] | re | | | B | | sent | | [place], [place] | | | | | | | | [address] | | + +--------+ +--------+ + +--------+ | MEDICAID [place] | MCAID | xxxxxxxx | 10/08/19 | [phone] | [address] | Medica | | | QMM | | 19-Pre | 6 | [address] | id | | | QMB | | sent | | [place], [place] | | | | | | | | [address] | | + +--------+ +--------+ + +--------+ [...] | | al/Fam | | 1990 | [phone] | [address] [place] | | | mehul | | | 6 (Home) | [address] | + +--------+ +--------+ + + | Matt Fagan | Person | Self | [birth year] | | [address] | | | al/Fam | | 1991 | [phone] | [address] [place] | | | [place]ul | | | 6 (Home) | [address] | + +--------+ +--------+ + + Advance [...]
--- OUTSIDE RECORDS SUMMARY | ~2019-06-26 | XMS | Encounter Summary ---
Demographics + + + | Address | [address] | | | [place] [address] | + + + | Home Phone [...] Team Providers + +------+ + | Care Sheep Or Calf Grader Name | Role | Phone | + [...] to social | | 2014 | | [facility] [address] | [address] | worker | | | | [address] | [place]la [place], | | | | | Mailcode: CH6A | [place] [address] | | | | | [place], [place] | | | | | | [address] | | | | | | [phone] | | | +--------+ + + + [...]
--- OUTSIDE RECORDS SUMMARY | ~2019-06-26 | XMS | Encounter Summary ---
Demographics + + + | Address | [address] | | | [place] [address] | + + + | Home Phone [...] Team Providers + +------+ + | Care Collections Assistant Name | Role | Phone | [...] | | 2017 | on | [facility] [address] | PA-C [address] | | | | | [place] Mailcode: | [place], [place] | | | | | [facility] | [address] | | | | | and [place], | [phone] | | | | | [place] [address] | | | | | | [place], [place] | | | | | | [address] | | | | | | [phone] | | | +--------+ + + + [...]
--- OUTSIDE RECORDS SUMMARY | ~2019-06-26 | XMS | Encounter Summary ---
Demographics + + + | Address | [address] | | | [place] [address] | + + + | Home Phone [...] Providers + +------+ + | Care Assistant Broker Name | Role | Phone | + [...] | | Thoracic | Raegan Nieves, | [facility] [address] | | | | | spine tumor | PA-C [address] | | | | | Procedures | [address] | Mailcode: | | | | | MRI SPINE | [facility], | [facility] | | | | | THORACIC WWO | [place] | for Health | | | | | CONTRAST | [address] | and Healing, | | | | | [place] [facility], | Phone: | Building 1, | | | | | DORSAL SPINE | [phone] | 3rd Floor | | | | | COMBO | Fax: | [place], [place] | | | | | | [phone] | [address] | | | | | | | Phone: | | | | | | | [phone] | | | | | | | Fax: | | | | | | | [phone] | +--------+--------+ + + + + Reason [...] | | | | | CONTRAST | [address] | and Healing, | | | | | [place] [facility], | Phone: | Building 1, | | | | | DORSAL SPINE | [phone] | 3rd Floor | | | | | COMBO | Fax: | [place], [place] | | | | | | [phone] | [address] | | | | | | | Phone: | | | | | | | [phone] | | | | | | | Fax: | | | | | | | [phone] | +--------+--------+ + + + + Encounter Details +--------+ + + + + | Date | Type | Department | Care Team | Description | +--------+ + + + + | 11/27/ | Hospital | Radiology/Imaging | Raegan Doss, | | | 2017 | Encounter | Lab at [facility] [address] | PA-C [address] | | | | | [address] Mailcode: | Ave [facility], [place] | | | | | [facility] Center for | [address] | | | | | Health and Healing, | [phone] | | | | | [address] | | | | | | Floor [place], [place] | | | | | | [address] | | | | | | [phone] | | | +--------+ + + + [...]
--- OUTSIDE RECORDS SUMMARY | ~2019-06-26 | XMS | Encounter Summary ---
Demographics + + + | Address | [address] | | | [place] [address] | + + + | Home Phone [...] Team Providers + +------+ + | Care Colliery Clerk Name | Role | Phone | + +------+ + | No Pcp Per Patient | PCP | Unavailable | + +------+ + Encounter Details +--------+ + + + + | Date | Type | Department | Care Team | Description | +--------+ + + + + | 11/26/ | Procedure | Radiology/Imaging | | | | 2017 | Pass | Lab at [facility] [address] | | | | | | [address] Mailcode: | | | | | | [facility] | | | | | | Health and Healing, | | | | | | [facility] 1, 3rd | | | | | | Floor [place], [place] | | | | | | [address] | | | | | | [phone] | | | +--------+ + + + [...]
--- OUTSIDE RECORDS SUMMARY | ~2019-06-26 | XMS | Encounter Summary ---
Demographics + + + | Address | [address] | | | [place] [address] | + + + | Home Phone [...] Team Providers + +------+ + | Care Drug Enforcement Agent Name | Role | Phone | + +------+ + | No Pcp Per Patient | PCP | Unavailable | + +------+ + Encounter Details +--------+ + + + + | Date | Type | Department | Care Team | Description | +--------+ + + + + | 06/26/ | Hospital | [facility] [address] | April eBck MD | | | 2019 | Encounter | [address] | [address] | | | | | [place], | [facility] | | | | | [place] [address] | [place], [place] | | | | | [phone] | [address] | | | | | | [phone] | | | | | | | [...]
--- OUTSIDE RECORDS SUMMARY | ~2019-06-26 | XMS | Encounter Summary ---
Demographics + + + | Address | [address] | | | [place] [address] | + + + | Home Phone [...] Providers + +------+ + | Care Manager Requirements Name | Role | Phone | + [...] | | Thoracic | Raegan Nieves, | [facility] [address] | | | | | spine tumor | PA-C [address] | | | | | Procedures | [address] | Mailcode: | | | | | MRI SPINE | [facility], | [address] | | | | | THORACIC WWO | [place] | for Health | | | | | CONTRAST | [address] | and Healing, | | | | | [place] [facility], | Phone: | Building 1, | | | | | DORSAL SPINE | [phone] | 3rd Floor | | | | | COMBO | Fax: | [place], [place] | | | | | | [phone] | [address] | | | | | | | Phone: | | | | | | | [phone] | | | | | | | Fax: | | | | | | | [phone] | +--------+--------+ + + + + Occupational [...] | | | | | THERAPY | [place], [place] | | | | | | REFERRAL | [address] | | +--------+--------+ + + + + [...] | | | spine tumor | PA-C [address] | | | | | | Procedures | [address] | | | | | | PHYSICAL | [address] | | | | | | THERAPY | Rd | | | | | | REFERRAL | [place], [place] | | | | | | | [address] | | +--------+--------+ + + + + [...] + + | 03/21/ | Hospital | [facility] [address] | Rajinder Luis MD | | | 2016 - | Encounter | [address] | [address] | | | | | [id number] [facility] | [place], [place] | | | 03/28/ | | HOSPITAL [place], | [address] | | | 2016 | | [place] [address] | [phone] | | | | | [phone] | | | +--------+ + + + [...] patient [facility], and e patient and/or family [...] THIS IF YOU ARE STILL ADMITTED AT [facility]. This will be on the 8th floor at the [facility] on the [facility] located at [address] [facility] [place], [place] [facility]. Polo roberts call [phone] if you have any questions or concerns [...] Rajinder Luis MD [facility] [address]T [address] [address]/[place] [address] documented in this encounter Progress Notes Raegan Doss PA-C - 03/28/2016 7:46 AM PDTFormatting of this note might be different f rom the original. Neurosurgery Progress Note Hospital Day:7 Author; Raegan Doss PA-C Attending Physician: Rajinder Luis MD Interval Hx: No acute events overnight. Pt states she is looking forward to going to [facility] today. Pt state s her BLE sensation [...] moderate swelling under skin, no erythema, dry. Woodland in place. Sensation: LT sensation at pre-op [...] on 04/05. This can be completed at [facility] or at the [facility] follow up visit. CV: HD [...] bed. On ppx Lovenox qHS. Dispo: To [facility] today at 11am. Will see patient back in clinic in 1 month with a repeat thora cic MRI. Raegan Doss PA-C [facility] [address] [address]/[place] [address] dams, PHILIPPE Mena - 03/27/2016 4:51 PM [...] ppx Lovenox qHS. [facility] Raegan Doss PA-C [facility] [address]K [address] [id number][id number] [place] [address] Sumeet Malone MD - 03/26/2016 9:23 AM [...] Consult to physiatry with likely placement at [facility]. PT recs IPR. Oncology: Pathology shows recurrent/residual [...] Dispo: Pending medical course, likely IPR at [facility]. Appreciate CM following. Sumeet Ross MD Neurological [...] Consult to physiatry with likely placement at [facility]. PT recs IPR. Oncology: Pathology shows recurrent/residual [...] Dispo: Pending medical course, likely IPR at [facility]. Appreciate CM following. Sumeet Ross MD Neurological Surgery PGY1 acey Pimentel PA-C - 03/24/2016 11:18 AM PDTFormatting of this note might be different from the [facility] l. Neurosurgery Progress Note Hospital Day:3 Author; [...] sensation intact in all 4 extremities Motor: Deburrer Strip Bicep Tricep Delt R 5 5 5 [...] to evaluate patient for possible admission to [facility]. Oncology: Pathology in process. 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 Plan to repeat MRI in one month and evaluation for possible radiation needs at that time. HEENT/Derm: Menthol drops prn mouth soreness. Routine wound care to spinal incision - pleas e leave open to air. Okay to wash on 03/25. Woodland will need to be removed at 2 [...] PA-C [facility] [address] [address] [place] [address] dams, Raegan Nieves PA-C - 03/23/2016 7:58 [...] O2 Delivery Device: None (room air) (03/23/16 7078) 24 Hour Vital Min/Max: Systolic (24hrs), Av [...] Full strength throughout 11/10 - B, T, blood and plasma laboratory assistant, HF, KE, APF, ADF Daniels catheter in [...] to evaluate patient for possible admission to [facility]. HEENT/Derm: Menthol drops prn mouth soreness. Routine [...] PA-C [facility] [address] [address]/[place] [address] Yokasta Pizano MD - 03/22/2016 5:30 PM [...] consult per patient's request Yokasta Randall PGY3 [id number] Cesar Najera MD - 03/22/20 16 3:05 [...] + + + + | [facility] | [address] | [place] [address] | | | SERVICES, CORE | JEAN [...] [facility] | [address] | [place] [address] | | | SERVICES, NINO | JEAN [...] LABORATORY | [address] | [place] [address] | | | SERVICES, CORE | JEAN [...] + + + + | [facility] | [address] | [place] [address] | | | NINO LEONARD | JEAN [...] MARQUAM | [address] | [place], [place] | | | JAVIER POINT OF CARE | [facility] | [address] | | | TESTS | | | [...] CENTER LABORATORY | [address] | [place] [address] | | | SERVICES, CORE | PARK [...] + + + + | [facility] | [address] | [place] [address] | | | SERVICES, CORE | PARK [...] MARQUAM | [address] | [place], [place] | | | ZELALEM HERRERA OF CARE | [address] | [address] | | | TESTS | | | [...] MARMARILEEAM | [address] | [place], [place] | | | ZELALEM HERRERA OF CARE | [address] | [address] | | | TESTS | | | [...] BRAMBILA | [address] | [place], [place] | | | ZELALEM HERRERA OF CARE | [address] | [address] | | | TESTS | | | [...] MARQUAM | [address] | [place], [place] | | | ZELALEM HERRERA OF CARE | [address] | [address] | | | TESTS | | | | + + + + + OPERATION RECORD (03/24/2016 9:53 AM PDT) + + | Transcriptions | + + | Rajinder Luis MD - 03/22/2016 4:04 PM PDT Date of Service: 03/22/2016 Attending | | Surgeon: Rajinder Luis MD Slot Host(s): Thomas Gorman, | | MNacho., Ph.D. Preoperative [...] was closed primarily using a running 5-0 Avalon-Thaddeus suture in a locking fashion. At | | the lowest incision, the dural tacking sutures were crossed. The dura was also closed | | in primary fashion using a running 5-0 Avalon-Thaddeus suture in locking fashion. These dural | [...] 03/22/2016 12:20:45DT: 03/22/2016 | | 16:04:07Job #: [id number] | + + CBC (HEMOGRAM) ONLY (03/24/2016 [...] LABORATORY | [address] | [place] [address] | | | SERVICES, CORE | PARK [...] + + | [facility] | [address] | [place] [address] | | | NINO LEONARD | JEAN [...] PATTY | [address] | [place], [place] | | | ZELALEM HERRERA OF NURIA | [facility] | [address] | | | TESTS | | | [...] BRAMBILA | [address] | [place], [place] | | | JAVIER POINT OF CARE | [address] | [address] | | | TESTS | | | [...] PATTY | [address] | [place], [place] | | | ZELALEM HERRERA OF CARE | [address] | [address] | | | TESTS | | | [...] PATTY | [address] | [place], [place] | | | ZELALEM HERRERA OF [facility] | [facility] | [address] | | | TESTS | | | [...] LABORATORY | [address] | [place] [address] | | | NINO LEONARD | JEAN [...] LABORATORY | [address] | [place] [address] | | | SERVICES, CORE | [address] | | | + + + + + FIBRINOGEN (03/23/2016 5:50 AM PDT) + +-------+ + + + | Component | Value | Ref Range | Performed | Pathologist | | | | | At | Signature | + +-------+ + + + | FIBRINOGEN | 367 | 200 - 450 mg/dL | INSU | | | LEVEL | | | [...] + + | [facility] | [address] | [place] [address] | | | SERVICES, CORE | JEAN [...] + + | [facility] | [address] | [place] [address] | | | SERVICES, CORE | PARK [...] + + | [facility] | [address] | [place] [address] | | | SERVICES, CORE | PARK [...] | + + + + + | [facility] | [address] | [place] [address] | | | HORACIO, NINO | JEAN [...] - MARQUAM | [address] | [place], [place] | | | ZELALEM HERRERA OF NURIA | [address] | [address] | | | TESTS | | | [...] BRAMBILA | [address] | [place], [place] | | | ZELALEM HERRERA OF NURIA | [facility] | [address] | | | TESTS | | | [...] PATTY | [address] | [place], [place] | | | JAVIER POINT OF [facility] | [address] | [address] | | | TESTS | | | [...] BRAMBILA | [address] | [place], [place] | | | ZELALEM HERRERA OF CARE | [address] | [address] | | | TESTS | | | [...] MARQUAM | [address] | [place], [place] | | | JAVIER POINT OF CARE | [address] | [address] | | | TESTS | | | [...] BRAMBILA | [address] | [place], [place] | | | JAVIER POINT OF CARE | [address] | [address] | | | TESTS | | | | + + + + + INTRAOPERATIVE NEURO MONITORING (03/22/2016) + + + | Narrative | Performed At | + + + | Patient Name: Matt Fagan Date of : 1990 | | | Date of Test: 03/22/2016 Place of | | | Service: IP Intra Op (27) [id number] INTRAOPERATIVE NEURO | | | MONITORING History: [...] Clinical Neurophysiology | | | Suggested CPT: 56137 - IOM Remote x 3 hr(s) 47637 - Short | | | Latency EP's Upper AND Lower extremities 35728 - Central Motor EP's | | | Upper AND Lower extremities 34737 - Neuromuscular Junction Test | | | [...] prior | | | | | | resections([id number] | | | | | | and [id number]) with | | | | | | [...] | | | [facility] [...] | | | | | | record #[id number], and | | | | | | [...] | + + + + + | [facility] | [address] | [place] [address] | | | PATHOLOGY | [address] [...] | | [place] - | | | [place] | + + + + + + + + | Performing | Address | City/State/Zipcode | Phone Number | | Organization | | | | + + + + + | [facility] | [address] | [place] [address] | | | [place] | | | | + + + [...] + + + + | [facility] | [address] | [place] [address] | | | SERVICES, CORE | PARK [...] + + + + | [facility] | [address] | [place] [address] | | | SERVICES, NINO | JEAN [...] | + + + + + | [facility] | [address] | [place] [address] | | | SERVICES, CORE | PARK [...] LABORATORY | [address] | [place] [address] | | | SERVICES, CORE | PARK [...] LABORATORY | [address] | [place] [address] | | | SERVICES, | [address] [...] LABORATORY | [address] | [place] [address] | | | SERVICES, | [address] [...] + + | [facility] | [address] | [place] [address] | | | SERVICES, CORE | PARK [...] LABORATORY | [address] | [place] [address] | | | SERVICES, CORE | PARK [...] LABORATORY | [address] | [place] [address] | | | SERVICES, CORE | PARK [...] [facility] | [address] | [place] [address] | | | SERVICES, CORE | JEAN [...] LABORATORY | [address] | [place] [address] | | | NINO LEONARD | JEAN [...] 77 | 60 - 99 mg/dL | [place] [...] BRAMBILA | [address] | [place], [place] | | | ZELALEM HERRERA OF NURIA | [address] | [address] | | | TESTS | | | [...] + + + + | PRODUCT | [id number] | | [facility] | | | UNIT [...] + + + + | EXPIRATION | [id number] | | [facility] | | | DATE [...] + + + + | BLOOD | [id number] | | [facility] | | | PRODUCT [...] OF | [address] | [place] [address] | | | PATHOLOGY | [address] [...] + + + + | PRODUCT | [id number] | | [facility] | | | UNIT [...] + + + + | EXPIRATION | [id number] | | [facility] | | | DATE [...] + + + + | BLOOD | [id number] | | [facility] | | | PRODUCT [...] | + + + + + | [facility] | [address] | [place] [address] | | | PATHOLOGY | [address] | | | + + + + + ED INFORMATION EXCHANGE (03/21/2016 6:36 PM PDT) + + + + + + | Component | Value | Ref Range | Performed | Pathologist | | | | | At | Signature | + + + + + + | [facility] | [id number] | | [facility] | | | | [id number] | | MEDICAL | | | | [...] ------- ---- | | | 03/21/2016 18:35 Count Includes [facility] and | | | [facility] [place] Emergency [address]. 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 | | | [place] Emergency NO FEELING IN LOWER LIMBS | | | INPATIENT VISIT TRACKING (1 MO.) Visit Date | | | LocationCity ST TypeDx / Complaint | | | ED | | | VISIT COUNT (1 YR.) Visits Location ------ --------- 2 | | | [facility] | | | [facility] 5 Total Note: Visits indicate total | | | known visits. | | | | | | --- CARE PROVIDERS Name | | | Phone Type | | | Service Dates ---- | | | ----- ---- | | | [facility] | | | [phone] Primary Care Unknown - Current | | | [facility] Unknown | | | Primary Care Unknown - Current DOCTOR JOSÉ LUIS at [facility] | | | [facility] Unknown Primary Care | | | Unknown - Current TIAN DE JESUS | | | [id number] Primary Care 01/26/2016 - | | | Current [facility] - AJ | | | [id number] Primary Care 01/24/2016 - Current | | + + + + + + + + | Performing | Address | City/State/Zipcode | Phone Number | | Organization | | | | + + + + + | [facility] | [address], | [place], [place] | [phone] | | [employer] | [address] | [address] | | + + + + + [...] | | | | | modification) on [facility] 03/23/16 at | | | | | | | 1400, Last dose on [facility] 03/23/16 at | | | | [...] | | | | | modification) on [facility] 03/25/16 at | | | | [...]
--- OUTSIDE RECORDS SUMMARY | ~2019-06-26 | XMS | Encounter Summary ---
Demographics + + + | Address | [address] | | | [place] [address] | + + + | Home Phone [...] Team Providers + +------+ + | Care Fine Chemicals Operator Name | Role | Phone | [...] | | Shwetha Mailcode: CH8N | [address] [place], [place] | | | | | [facility] | [address] | | | | | and [place], | [phone] | | | | | [facility] | | | | | | Floor [place], [place] | | | | | | [address] | | | | | | [phone] | | | +--------+ + + + [...]
--- OUTSIDE RECORDS SUMMARY | ~2019-06-26 | XMS | Encounter Summary ---
Demographics + + + | Address | [address] | | | [place] [address] | + + + | Home Phone [...] Team Providers + +------+ + | Care Memorial Adviser Name | Role | Phone | + +------+ + | Clare Mendoza MD | PCP | | + +------+ + Encounter Details +--------+ + + + + | Date | Type | Department | Care Team | Description | +--------+ + + + + | 01/02/ | Document-Sc | Health Information | Unknown . | | | 2018 | anned | Services [phone] | | | | | | [address] | | | | | | Mailcode: OP17Darion | | | | | | [facility] | | | | | | [place], [place] | | | | | | [address] | | | | | | [phone] | | | +--------+ + + + [...]
--- OUTSIDE RECORDS SUMMARY | ~2019-06-26 | XMS | Encounter Summary ---
Demographics + + + | Address | [address] | | | [place] [address] | + + + | Home Phone [...] Providers + +------+ + | Care Director International Name | Role | Phone | + +------+ + | No Pcp Per Patient | PCP | Unavailable | + +------+ + Encounter Details +--------+ + + + + | Date | Type | Department | Care Team | Description | +--------+ + + + + | 06/03/ | Telephone | Neurosurgery at | Raegan Doss, | | | 2019 | | [address] | [place] [address] | | | | | Shwetha Mailcode: CH8N | [place], [place] | | | | | [place] for [facility] | [address] | | | | | and Healing, | [phone] | | | | | [facility] 8th | | | | | | Floor [place], [place] | | | | | | [address] | | | | | | [phone] | | | +--------+ + + + [...]
--- OUTSIDE RECORDS SUMMARY | ~2019-06-26 | XMS | Encounter Summary ---
Demographics + + + | Address | [address] | | | [place] [address] | + + + | Home Phone [...] Team Providers + +------+ + | Care Tibco Developer Name | Role | Phone | [...] | 2017 | Pass | Services at [facility] | | | | | | [address] | | | | | | Marla Abdul Mailcode: | | | | | | [address] | | | | | | [facility] | | | | | | [place], [place] | | | | | | [address] | | | | | | [phone] | | | +--------+ + + + [...]
[~2019-06-26 08:08] MED LIST changes: +PROMETHAZINE HC25 M1 PO
--- OUTSIDE RECORDS SUMMARY | 2019-06-26 08:10 | XMS ---
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 - Has Care Guidelines - PDMP - [facility] - 2 Visits in 30 Days CARE PROVIDERS PRINCESS GRAVES [facility] Current MARIBELL PHONE: Unknown MARBIN ALEXANDRA Nurse Practitioner: Family Current PHONE: Unknown CHRISTIANO MARTINS Current PHONE: [phone] Kya Shay Advanced [facility] Agriculture Worker Current PHONE: [phone] TIM PINTO Primary Care [facility] PHONE: Unknown PRINCESS GRAVES Primary Care Cassandra GRAVES PHONE: [phone] MADHAVI MONTANEZ Primary Care Current PHONE: Unknown MELANI LEAHY Primary Care 01/26/2016-10/16/2016 [facility] PHONE: Unknown Melani Leahy Mem Mental Health Provider 05/09/2017-[facility] PHONE: Unknown PRINCESS Primary Care Current MARIBELL-BELLI PHONE: [phone] [facility] Primary Care 01/24/2016-[facility] - MARIELA MILLARD PHONE: [phone] MELANI ARASH Primary Care 10/16/2016-Cassandra DE JESUS PHONE: [phone] [facility] Primary Care 01/24/2016-[facility] Andrew ROCHA PHONE: [phone] Care Guidelines exist for the following facilities: [facility] ( 01/13/2019 ) Care History Medical/Surgical 06/03/2019 [facility] - [facility] CALLED PATIENT- DISCUSSED PCP OPTIONS IN THE AREA. - PATIENT STATES SHE WILL BE IN CONTACT WITH K[facility] AND OR DR MAY OFFICE TO SEE ABOUT GETTING RECORDS SENT TO SCHEDULE WITH A PROVIDER IN THE AREA. E.D. VISIT COUNT (12 MO.) 1 [facility] NOTE: Visits indicate total known visits. 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 MRI 41550. Neoplasm of unsp behavior of bone, soft tissue, and skin 01288. Oth symptoms and signs involving the musculoskeletal system 40282. Abnormal reflex 07/06/2018 05:00 [facility]QU[facility] [place] TYPE: Emergency COMPLAINT: - R LEG NUMBNESS/JOINT PAIN DIAGNOSES: - Neoplasm of unsp behavior of bone, soft tissue, and skin - Anesthesia of skin - Allergy status to sulfonamides status - Other group home (current) drug therapy - Brown-Sequard syndrome INPATIENT VISIT TRACKING (12 MO.) 10/08/2018 12:39 Tim Newby [facility] TYPE: Inpatient Rehab DIAGNOSES: - Neoplasm of [...] sys - Other reduced mobility 10/01/2018 12:35 [facility] TYPE: Neuro Surgery DIAGNOSES: 21320. Oth symptoms and signs involving the musculoskeletal system 66205. Neoplasm of unsp behavior of bone, soft tissue, and skin 77072. Abnormal reflex 07/12/2018 17:[address] [facility] TYPE: Inpatient Rehab DIAGNOSES: - Malignant neoplasm [...] Neuromuscular dysfunction of bladder, unspecified 07/06/2018 13:24 [facility] TYPE: Neuro Surgery DIAGNOSES: 94442. Thoracic Spine Tumor 74291. Neoplasm of unsp behavior of bone, soft tissue, and skin [id number]
--- NOTE | 2019-06-26 21:09 | NUR ---
TELEPHONE REPORT RECEIVED FROM ED RN SENIA. QUESTIONS ANSWERED, AWAITING PT'S ARRIVAL.
--- NOTE | 2019-06-26 21:30 | NUR ---
PT ARRIVED TO THE FLOOR FROM THE ED. STACKER OPERATOR ROZ AND RN JEAN IN ROOM TO COMPLETE QUICK ADMIT.
[2019-06-26] MEDS ORDERED: ONDANSETRON ODT8 MG SL (22:10)
--- NOTE | 2019-06-26 22:30 | NUR ---
ASSESSMENT COMPLETE, VSS. SCHEDULED MEDS GIVEN (SEE EMAR). PT A/OX4, IV FLUID BOLUS INFUSING AT 200MLS/HR, SITE WNL. INTERACTION NOTED BETWEEN LEVAQUIN AND TRAZODONE, KNOWN TO CAUSE POSSIBLE PROLONGED QT. DISCUSSED WITH YARIEL FROM TELEPHARMACY. OKAY TO GIVE PT IS YOUNG AND DOES NOT HAVE EXTENSIVE CARDIAC HISTORY. PT DENIES ADDITIONAL NEEDS, CALL LIGHT IN REACH.
--- NOTE | 2019-06-26 23:38 | NUR ---
2MG OF PO PRN DILAUDID GIVEN FOR 7/10 PAIN IN RIGHT HIP. NO FURTHER NEEDS VERBALIZED, CALL LIGHT IN REACH. IV FLUIDS INFUSING AT 200MLS/HR, SITE WNL.
--- NOTE | 2019-06-27 02:00 | NUR ---
PT ASSISTED ON TO BEDPAN TO VOID, VOID SUCCESSFUL. NO FURTHER NEEDS VERBALIZED, CALL LIGHT IN REACH.
--- NOTE | 2019-06-27 02:28 | NUR ---
PT RESTING IN BED, RESPIRATIONS EVEN AND UNLABORED. IV FLUIDS INFUSING AT 200MLS/HR, SITE WNL. NO NEEDS AT THIS TIME.
--- NOTE | 2019-06-27 03:54 | NUR ---
HELPED PT ON AND OFF THE BED COLEMAN. BEDSIDE TABLE AND CALL LIGHT IN REACH. PT NEEDS NOTHING MORE AT THIS TIME.
--- NOTE | 2019-06-27 04:06 | NUR ---
ASSESSMENT COMPLETE, NO NEW CHANGES OR CONCERNS. A/OX4, RATES PAIN A TOLERABLE 2/10 IN RIGHT HIP. VSS, PT ON RA. IV FLUIDS INFUSING AT 125MLS/HR, SITE WNL. BILATERAL LOWER EXTREMITY AND BILATERAL UPPER EXTREMITY STRENGTH STRONG AND EQUAL, WILL MONITOR. NO RESTING IN BED, PILLOWS IN PLACE FOR SUPPORT. NO FURTHER NEEDS, CALL LIGHT IN REACH.
--- NOTE | 2019-06-27 07:34 | NUR ---
0720: BEDSIDE REPORT RECIEVED FROM TASHA CARBAJAL. PT RESTING IN HER BED WITH NO NEW COMPLAINTS BUT STATES HER PAIN IS A 4/10 AND SHE IS REQUESTING SOMETHING FOR IT, SEE EMAR. CALL WHALEN WITHIN REACH.
--- NOTE | 2019-06-27 08:02 | NUR ---
PT RESTING IN HER BED WITH NO NEW COMPLAINTS, CALL WHALEN WITHIN REACH.
--- NOTE | 2019-06-27 08:27 | NUR ---
PATIENT USED BEDPAN THIS MORNING, AND IS REQUESTING TO SLEEP LONGER. PATIENT REPORTS HER PAIN IS TOLERABLE RIGHT NOW. CALL LIGHT IN REACH. AM CARE REFUSED, NO OTHER NEEDS AT THIS TIME.
--- NOTE | 2019-06-27 10:05 | NUR ---
Pt states her pain is "good" at this time. Pt now speaking with PT and OT.
--- NOTE | 2019-06-27 10:28 | NUR ---
Pt called me to her room and requested some baclofen as she has some spasms in her legs. Pt states that this is normal for her and that she takes the baclofen prn at home with good results. Pt medicated, see emar.
--- NOTE | 2019-06-27 12:11 | NUR ---
MED REC COMPLETED.
--- NOTE | 2019-06-27 12:41 | NUR ---
IV FLUID DC'D ORDERED.
--- NOTE | 2019-06-27 12:51 | NUR ---
PT RESTING IN BED FOLLOWING THE USE OF THE BEDSIDE COMMODE. PT WAS ABLE TO MOVE HERSELF FROM THE BED AND BACK WITH JUST A SBA. PT STATES HER STRENGTH IS IMPROVING SHE WAS UNABLE TO STAND YESTERDAY. PT STATES HER RIGHT HIP PAIN IS NOW A 3 WHICH IS ACCEPTABLE TO HER. SHE STATES THAT HER LEG SPASMS ARE ALSO UNDER GOOD CONTOL BUT NEVER TOTALY GO AWAY. PT DENIES ANY OTHER PROBLEMS AT THIS TIME AND IS VISITING WITH HER SISTER AT THIS TIME.
--- NOTE | 2019-06-27 14:00 | NUR ---
SPOKE WITH PATIENT IN ROOM. PATIENT STATES SHE FEELS A LITTLE STRONGER THIS AFTERNOON. SHE IS AWARE SHE MAY BE TRANSFERRED TO [facility] TO HER NEUROSURGEON IF A BED BECOMES AVAILABLE. SHE LIVES WITH HER 4YEAR OLD DAUGHTER. HER DAUGHTER IS WITH HER DAD FOR THE NEXT 10 DAYS SO SHE IS RELEIVED SHE DOESN'T HAVE TO WORRY ABOUT HER. SHE STATES SHE HAS GOOD SUPPORT FROM FAMILY AND FRIENDS IN THE AREA. SHE ALSO HAS GOOD SUPPORT FROM EMPLOYER AT [employer]. SHE STATES SHE HAS CANE, WALKER, WHEELCHAIR AND SHOWER CHAIR (BATHROOM SET UP) AT HOME. SHE HAS NO STAIRS. SHE FEELS SAFE TO RETURN HOME ONCE SHE IS OUT OF THE HOSPITAL. SHE STATES SHE HAS A SISTER WHO WORKS IN COMMUNITY RESOURCES AND HAS SUPPORT THEIR ALSO. PATIENT FEELS SHE UNDERSTANDS HER DIAGNOSIS AND HAS NO QUESTIONS AT THIS TIME. WILL CONTINUE TO FOLLOW.
--- NOTE | 2019-06-27 16:06 | NUR ---
Pt called and states her right hip pain has increased to a 6/10. She was medicated as ordered and denies any other new problems at this time.
--- NOTE | 2019-06-27 16:36 | NUR ---
Pt's face and neck had some redness noted today but now appears to have increased in brightness. She denies any itching, heat or other problems. There is no noted rash and the pt is aferible.
--- NOTE | 2019-06-27 16:58 | NUR ---
Dr Gaming called and notified that the pt's neck and face are flushed. He states he will come and see the pt.
--- NOTE | 2019-06-27 17:12 | NUR ---
DR CHAVIRA INTO THE ROOM CHECKING IN ON THE PT AT 1708.
--- NOTE | 2019-06-27 17:44 | NUR ---
1740: Report called to Charline CARBAJAL at [facility].
--- NOTE | 2019-06-27 17:56 | NUR ---
Pt requested a dose of valium for anxiety related to her pending transfer, see emar.
== END 2019-06-27 18:05 | disposition short-term general hospital (02) | DRG 690 ==
LOC: ED 08:08 → MS 20:13
PROVIDERS: ADMIT Student in an Organized Health Care Education/Training Program
DX: N39.0 Urinary tract infection, site not specified (principal); C72.0 Malignant neoplasm of spinal cord; B95.2 Enterococcus as the cause of diseases classified elsewhere; M62.81 Muscle weakness (generalized); N76.0 Acute vaginitis; B96.89 Other specified bacterial agents as the cause of diseases classified elsewhere; F39 Unspecified mood [affective] disorder; G89.4 Chronic pain syndrome; R23.2 Flushing; T37.3X5A Adverse effect of other antiprotozoal drugs, initial encounter; Y92.239 Unspecified place in hospital as the place of occurrence of the external cause; Z79.899 Other long term (current) drug therapy; Z88.5 Allergy status to narcotic agent; Z88.2 Allergy status to sulfonamides
CPT/HCPCS: 36415; 72157; 72158; 80048; 80053; 81001; 84703; 85025; 87088; 97162; 97166; 99285-25; A9579; J1956; J2405; J2930; J7121

== ENCOUNTER 2019-11-28 21:49 | Emergency (ER) | payer MEDICARE, OTHER ==
[~2019-11-28] VITALS: Ht 160 cm; Wt 81.8 kg
--- OUTSIDE RECORDS SUMMARY | ~2019-11-28 | XMS | Encounter Summary ---
Demographics + + + | Address | [address] | | | [place] [address] | + + + | Home Phone | | + + + | Preferred Language | Unknown | + + + | Marital Status | Single | + + + | Scientologist Affiliation | NON | + + + | Race | White | + + + | Ethnic Group | Not or | + + + Author + + + | Author | [facility] | + + + | Organization | [facility] | + + + | Address | Unknown | + + + | Phone | Unavailable | + + + Support + + +---------+ + | Name | Relationship | Address | Phone | + + +---------+ + | Concepcion To | ECON | Unknown | | + + +---------+ + | Judit Fagan | ECON | Unknown | | + + +---------+ + Care Team Providers + +------+ + | Care Public Relations Consultant Name | Role | Phone | + +------+ + | Clare Franks MD | PCP | | + +------+ + Reason for Referral Diagnostic Testing (Routine) +--------+--------+ + + + + | Status | Reason | Specialty | Diagnoses / | Referred By | Referred To | | | | | Procedures | Contact | Contact | +--------+--------+ + + + + | Closed | | Radiology | Diagnoses | [facility] | [facility] | | | | | Thoracic | Raegan Nieves, | [address] | | | | | spine tumor | PA-C [address] | | | | | Procedures | [address] | [address] [place] | | | | | MRI SPINE | [place], [place] | Research | | | | | THORACIC WWO | [address] | Center | | | | | CONTRAST | Phone: | [place], [place] | | | | | NE MRI, | [phone] | [address] | | | | | DORSAL SPINE | Fax: | Phone: | | | | | COMBO | [phone] | [phone] | | | | | | | Fax: | | | | | | | [phone] | +--------+--------+ + + + + Reason for Visit + + + | Reason | Comments | + + + | Return Patient | | + + + Office Visit - E/M Services (Routine) +--------+--------+ + + + + | Status | Reason | Specialty | Diagnoses / | Referred By | Referred To | | | | | Procedures | Contact | Contact | +--------+--------+ + + + + | Closed | | Spine | Diagnoses | Em | Romario, | | | | | Thoracic | Emergency | Raegan Nieves, | | | | | spine tumor | Medicine | PA-C [address] | | | | | Procedures | [address] | [address] | | | | | NE EST | [facility] | [place], [place] | | | | | PATIENT | Rd | [address] | | | | | [address] | [place], [place] | Phone: | | | | | | [address] | [phone] | | | | | | | Fax: | | | | | | | [phone] | +--------+--------+ + + + + Encounter Details +--------+---------+ + + + | Date | Type | Department | Care Team | Description | +--------+---------+ + + + | 06/04/ | Office | [facility] at | Raegan Doss, | Thoracic spine tumor | | 2017 | Visit | [facility] [address] | PA-C [address] | (Primary Dx) | | | | Ave Mailcode: | Ave [place], [place] | | | | | [facility] | [address] | | | | | natacha Solomon, | [phone] | | | | | [place] [address] | | | | | | [place], [place] | | | | | | [address] | | | | | | [phone] | | | +--------+---------+ + + + Social History + +-------+ +--------+------+ | Tobacco Use | Types | Packs/Day | Years | Date | | | | | Used | | + +-------+ +--------+------+ | Never Smoker | | | | | + +-------+ +--------+------+ + +---+---+---+ | Smokeless Tobacco: | | | | | Current User | | | | + +---+---+---+ + + | Comments: Smokes marijuana | + + + + +---------+ + | Alcohol Use | Drinks/Week | oz/Week | Comments | + + +---------+ + | No | | | | + + +---------+ + + + + | Sex Assigned at | Date Recorded | | | | + + + | Not on file | | + + + + + + + | Job Start Date | Occupation | Industry | + + + + | Not on file | Not on file | Not on file | + + + + + + + + | Travel History | Travel Start | Travel End | + + + + + + | No recent travel history available. | + + documented as of this encounter Last Filed Vital Signs + + + + + | Vital Sign | Reading | Time Taken | Comments | + + + + + | Blood Pressure | 126/85 | 06/04/2017 2:50 PM | | | | | PST | | + + + + + | Pulse | 70 | 06/04/2017 2:50 PM | | | | | PST | | + + + + + | Temperature | 36.7 C (98.1 F) | 06/04/2017 2:50 PM | | | | | PST | | + + + + + | Respiratory Rate | - | - | | + + + + + | Oxygen Saturation | - | - | | + + + + + | Inhaled Oxygen | - | - | | | Concentration | | | | + + + + + | Weight | 75.8 kg (167 lb) | 06/04/2017 2:50 PM | | | | | PST | | + + + + + | Height | 160 cm (5' 3") | 06/04/2017 2:50 PM | | | | | PST | | + + + + + | Body Mass Index | 29.58 | 06/04/2017 2:50 PM | | | | | PST | | + + + + + documented in this encounter Progress Notes Raegan Doss PA-C - 06/04/2017 3:00 PM PSTFormatting of this note might be different f rom the original. Matt Fagan is a 26 y.o. female who is seen in clinic today with her family for a 4 month post-op visit and to review a surveillance thoracic MRI. 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 Followi ng surgery, she regained most strength back in her RLE and much of her sensation. Today she reports that her sensation, strength and bowel/bladder has been quite stable [facility] her last visit in February with me: Sensation: Continues to have minimal LT sensation in LLE, does have deep pressure sensation (pre-op baseline). Has no LT sensation in R foot. LT sensation is intact proximal to mid se ction of R arch. Motor: Feels generalized weakness in RLE, specifically with picking up her R foot when walk ing. She no longer requires a cane or other adaptive device for stability. She does not need her wheelchair for long distances any more. She continues to trip easily over her R foot. Bowel/bladder: She denies having any issues with her bowel or bladder except that she feels generally constipated. She has not tried OTC laxatives but has these available at home. She also reports that she has developed a new lump under her skin on the R side of her low back. She first noticed this a week ago and associates it with some pain, especially when ly ing flat. She has also noticed that she has frequent sweating/feeling hot episodes and has b een loosing hair. She has not had any TSH or other hormone labs checked as far as she is ronny re. Ht 1.6 m (5' 3"), Wt 75.8 kg (167 lb), BP 126/85, Pulse 70, Temperature 36.7 C (98.1 F) , Temperature source Oral, BMI 29.58 kg/(m^2). PE: Alert, oriented x3. Speech clear, fluent. Approx [id number] firm nodule Sensation: RLE - LT sensation intact above ankle, loss of LT sensation in R foot. LLE - Patchy LT sensation throughout LLE, has deep pressure sensation intact. Motor: HF KF KE APF ADF Left 5 5 5 5 5 Right 4+ 5 5 5 4 Walks with a slight limp, no assistive devices needed. Imagin06/04/17 Thoracic MRI wwo - Stable appearance of spinal cord mass, with the previously seen enhancing nodule no longer well-seen. New edema signal with enhancement along the bilateral posterior aspects of T8 janette tebral body, of uncertain significance but possibly reactive. Continued attention on followu p imaging is suggested. Impression: 26 y.o. 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 Stable exam and imaging since rec overing from her last operation. Plan: -Patient seen with Dr. Luis -Patient to see PCP about R low back superficial mass (likely needs US eval), also to get r outine labs for thyroid and nutrition -Patient to return in 6 months with thoracic MRI wwo prior for routine tumor surveillance [facility] [address] [address] documented in this encounter Plan of Treatment +--------+ + + + + | Date | Type | Specialty | Care Team | Description | +--------+ + + + + | 06/30/ | Procedure | Radiology | | | | 2019 | Pass | | | | +--------+ + + + + | 12/10/ | Appointment | Radiology | Raegan Doss, | | | 2019 | | | [facility] [address] | | | | | | [place], [place] | | | | | | [address] | | | | | | [phone] | | | | | | | | +--------+ + + + + | 12/10/ | Office | Neurological Surgery | April Beck MD | | | 2019 | Visit | | [address] | | | | | | [address] | | | | | | [place], [place] | | | | | | [address] | | | | | | [phone] | | | | | | | | +--------+ + + + + documented as of this encounter Results MRI SPINE THORACIC WWO CONTRAST (11/26/2017 1:53 PM PDT) + + | Specimen | + + | | + + + + + | Narrative | Performed At | + + + | MRI THORACIC SPINE WITHOUT AND WITH CONTRAST HISTORY: f/u spinal | [facility] | | cord tumor COMPARISON: 06/04/2017 TECHNIQUE: Multiplanar | RADIOLOGY VOICE | | multi-sequence MRI thoracic spine without and with gadolinium based | RECOGNITION 2 | | intravenous contrast. FINDINGS: ALIGNMENT: Normal. MARROW: | | | Postsurgical changes of T6-8 laminectomy is redemonstrated. Previously | | | seen enhancement within the posterior portion of the T8 vertebral | | | body has resolved, likely representing stress response. SPINAL CORD: | | | Multicystic, nonenhancing, T2 hyperintense intramedullary mass | | | extending from T5-T11 appears unchanged. PARASPINAL SOFT TISSUES: | | | Dorsal post surgical changes, similar to prior. IMPRESSION: 1. | | | No evidence of disease progression compared to 05/15/2017 MRI. | | | I have personally reviewed the images and, if necessary, edited the | | | report. I agree with the report as now presented. Final | | | signature: Tony Lyman MD 11/26/2017 10:35 PM Preliminary: | | | Shahab Elizabeth MD | | + + + + + | Procedure Note | + + | Service Account, Radiant Res In Interface - 11/26/2017 10:37 PM PDT MRI THORACIC | | SPINE WITHOUT AND WITH CONTRAST HISTORY: f/u spinal cord tumor COMPARISON: 06/04/2017 | | TECHNIQUE: Multiplanar multi-sequence MRI thoracic spine without and with gadolinium | | based intravenous contrast. FINDINGS: ALIGNMENT: Normal.MARROW: Postsurgical changes of | | T6-8 laminectomy is redemonstrated. Previously seen enhancement within the posterior | | portion of the T8 vertebral body has resolved, likely representing stress | | response.SPINAL CORD: Multicystic, nonenhancing, T2 hyperintense intramedullary mass | | extending from T5-T11 appears unchanged.PARASPINAL SOFT TISSUES: Dorsal post surgical | | changes, similar to prior. IMPRESSION: 1. No evidence of disease progression compared | | to 05/15/2017 MRI. I have personally reviewed the images and, if necessary, edited the | | report. I agree with the report as now presented. Final signature: Tony Lyman, | | 11/26/2017 10:35 PM Preliminary: Shahab Elizabeth MD | |SPINAL CORD: Multicystic, nonenhancing, T2 hyperintense intramedullary mass extending from T5-T11 appears unchanged. | |PARASPINAL SOFT TISSUES: Dorsal post surgical changes, similar to prior. | | | |IMPRESSION: | | | |1. No evidence of disease progression compared to 05/15/2017 MRI. | | | |I have personally reviewed the images and, if necessary, edited the report. I agree with th e report as now presented. 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
--- OUTSIDE RECORDS SUMMARY | ~2019-11-28 | XMS | Encounter Summary ---
Demographics + + + | Address | [address] | | | [place] [address] | + + + | Home Phone | | + + + | Preferred Language | Unknown | + + + | Marital Status | Single | + + + | [employer] Affiliation | NON | + + + | Race | White | + + + | Ethnic Group | Not or | + + + Author + + + | Author | [facility] | + + + | Organization | [facility] | + + + | Address | [...] Team Providers + +------+ + | Care Herpetology Teacher Name | Role | Phone | + [...] | Diagnoses | Romario | [facility] | | | | | Thoracic | Raegan Nieves, | [facility] [address] | | | | | spine tumor | PA-C [address] | | | | | Procedures | [address] | Mailcode: | | | | | MRI SPINE | [place], [place] | [facility] | | | | | THORACIC [facility]WO | [address] | for Health | | | | | CONTRAST | Phone: | and Healing, | | | | | [place] [facility], | [phone] | Building [address], | | | | | DORSAL SPINE | Fax: | 3rd Floor | | | | | COMBO | [phone] | [place], [place] | | | | | | | [address] | | | | | | | Phone: | | | | | | | [phone] | | | | | | | Fax: | | | | | | | [phone] | +--------+--------+ + + + + Reason for Visit Diagnostic Testing (Routine) +--------+--------+ + + + + | Status | Reason | Specialty | Diagnoses / | Referred By | Referred To | | | | | Procedures | Contact | Contact | +--------+--------+ + + + + | Closed | | Radiology | Diagnoses | Doss, | Rad Mri | | | | | Thoracic | Raegan Nieves, | [facility] [address] | | | | | spine tumor | PA-C [address] | | | | | Procedures | [address] | Mailcode: | | | | | MRI SPINE | [place], [place] | [facility] | | | | | THORACIC WWO | [address] | for Health | | | | | CONTRAST | Phone: | and Healing, | | | | | [place] [facility], | [phone] | [address], | | | | | DORSAL SPINE | Fax: | 3rd Floor | | | | | COMBO | [phone] | [place], [place] | | | | | | | [address] | | | | | | | Phone: | | | | | | | [phone] | | | | | | | Fax: | | | | | | | [phone] | +--------+--------+ + + + + Encounter Details +--------+ + + + + | Date | Type | Department | Care Team | Description | +--------+ + + + + | 11/27/ | Hospital | Radiology/Imaging | Raegan Doss, | | | 2017 | Encounter | Lab at [facility] [address] | PA-C [address] | | | | | [address] Mailcode: | [facility]NOTE [facility] [place] | | | | | [facility] for | [address] | | | | | Health and Healing, | [phone] | | | | | [address] | | | | | | Floor [place], [place] | | | | | | [address] | | | | | | [phone] | | | +--------+ + + + [...] as of this encounter Plan of Treatment +--------+ + [...] | | | | | | [place], [place] | | | | | | [address] | | | | | | [phone] | | | | | | | | +--------+ + + + + | 12/10/ | Office | Neurological Surgery | April Beck MD | | 2019 | Visit | | [address] | | | | | | [address] | | | | | | [place], [place] | | | | | | [address] | | | | | | [phone] | | | | | | | | +--------+ + + + + documented as of this encounter Procedures + +--------+ + + + | Procedure Name | Priori | Date/Time | Associated Diagnosis | Comments | | | ty | | | | + +--------+ + + + | MRI SPINE THORACIC | Routin | 11/27/2016 | Thoracic spine | Results for this | | [facility] CONT | e | 12:55 PM | tumor | procedure are in the | | | | PDT | | results section. | + +--------+ + + + documented in this encounter Results MRI SPINE THORACIC [facility] CONTRAST (11/27/2016 12:55 PM PDT) + + | Specimen | + + | | + + + + + | Narrative | Performed At | + + + | EXAM: MRI thoracic spine without and with contrast HISTORY: | [facility] | | Tumor surveillance COMPARISON: 01/17/2016 TECHNIQUE: | RADIOLOGY VOICE | | Multiplanar multi-sequence MRI thoracic spine without and with | RECOGNITION | | gadolinium based intravenous contrast. FINDINGS: Alignment: | | | There is slight accentuation of the normal midthoracic kyphosis. | | | Sequela of previous multilevel mid thoracic laminectomy is noted. | | | There is redemonstration of heterogeneous appearance of the spinal | | | cord, with interval decrease in the amount of nodular enhancement at | | | T8 level, now measuring about 6 mm in length, previously 1.2 cm in | | | length. A second focus of nodular enhancement at the T10 level is no | | | longer seen. The area of cystic expansion within the spinal cord above | | | the area of enhancement appears better defined on the current study. | | | Marrow: Unremarkable Spinal cord: Normal Paraspinal | | | soft tissues: Otherwise unremarkable IMPRESSION: 1. | | | Interval decrease in the size of nodular enhancement in the spinal | | | cord at T8 level, now measuring 6 mm in craniocaudal length compared | | | to 12 mm on previous study dated 01/17/16. The second nodular focus of | | | enhancement at T10 seen on the prior study is no longer visualized. | | | These findings may be related to interval re-resection. This study may | | | serve as the new postoperative baseline exam. 2. Multiple areas of | | | cystic change within the mid thoracic spinal cord appear more | | | well-circumscribed, and again may be in part related to postsurgical | | | changes. I have personally reviewed the images and, if | | | necessary, edited the report. I agree with the report as now | | | presented. | | + + + + + | Procedure Note | + + | Service Account, Radiant Res In Interface - 11/27/2016 2:59 PM PDT EXAM: MRI | | thoracic spine without and with contrastHISTORY: Tumor surveillanceCOMPARISON: | | 01/17/2016TECHNIQUE: Multiplanar multi-sequence MRI thoracic spine without and with | | gadolinium based intravenous contrast.FINDINGS: Alignment: There is slight accentuation | | of the normal midthoracic kyphosis. Sequela of previous multilevel mid thoracic | | laminectomy is noted. There is redemonstration of heterogeneous appearance of the spinal | | cord, with interval decrease in the amount of nodular enhancement at T8 level, now | | measuring about 6 mm in length, previously 1.2 cm in length. A second focus of nodular | | enhancement at the T10 level is no longer seen. The area of cystic expansion within the | | spinal cord above the area of enhancement appears better defined on the current study. | | Marrow: Unremarkable Spinal cord: Normal Paraspinal soft tissues: Otherwise | | unremarkable IMPRESSION:1. Interval decrease in the size of nodular enhancement in the | | spinal cord at T8 level, now measuring 6 mm in craniocaudal length compared to 12 mm on | | previous study dated 01/17/16. The second nodular focus of enhancement at T10 seen on the | | prior study is no longer visualized. These findings may be related to interval | | re-resection. This study may serve as the new postoperative baseline exam.2. Multiple | | areas of cystic change within the mid thoracic spinal cord appear more | | well-circumscribed, and again may be in part related to postsurgical changes. I have | | personally reviewed the images and, if necessary, edited the report. I agree with the | | report as now presented. | |IMPRESSION: | | | |1. Interval decrease in the size of nodular enhancement in the spinal cord at T8 level, now measuring 6 mm in craniocaudal length compared to 12 mm on previous study dated 01/17/16. Th e second nodular focus of enhancement | |at T10 seen on the prior study is no longer visualized. These findings may be related to in terval re-resection. This study may serve as the new postoperative baseline exam. | |2. Multiple areas of cystic change within the mid thoracic spinal cord appear more well-cir cumscribed, and again may be in part related to postsurgical changes. | | | | | |I have personally reviewed the images and, if necessary, edited the report. I agree with t he report as now presented. | + + + +---------+ + + | Performing | Address | City/State/Zipcode | Phone Number | | Organization | | | | + +---------+ + + | [facility] | | | | | VOICE RECOGNITION | | | | + +---------+ + + documented in this encounter Visit Diagnoses + + | Diagnosis | + + | 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, soft tissue, and skin | + + documented in this encounter Administered Medications + +---------+ +-------+------+------+ | Medication Order | MAR | Action | Dose | Rate | Site | | | Action | Date | | | | + +---------+ +-------+------+------+ | gadoterate meglumine (DOTAREM) | IV Push | 11/28/19 | 17 mL | | | | 0.5 mmol/mL injection 17 mL | | 1:00 | | | | | mL (rounded from 17.24 mL = 0.2 | | PM PDT | | | | | mL/kg | | | | | | | 86.2 kg Dosing weight), | | | | | | | intravenous, ONCE, 1 dose, Mon | | | | | | | 11/27/16 at 1300 | | | | | | + +---------+ +-------+------+------+ +---+---+ | | | +---+---+ documented in this encounter"
--- OUTSIDE RECORDS SUMMARY | ~2019-11-28 | XMS | Encounter Summary ---
Demographics + + + | Address | [address] | | | [place] [address] | + + + | Home Phone | | + + + | Preferred Language | Unknown | + + + | Marital Status | Single | + + + | Mormonism Affiliation | NON | + + + | Race | White | + + + | Ethnic Group | Not or | + + + Author + + + | Author | [facility] | + + + | Organization | [facility] | + + + | Address [...] Team Providers + +------+ + | Care Bookkeepers Supervisor Name | Role | Phone | + +------+ + | Damir Sy MD | PCP | | + +------+ + Reason for Referral (Routine) +--------+--------+ + + + + | Status | Reason | Specialty | Diagnoses / | Referred By | Referred To | | | | | Procedures | Contact | Contact | +--------+--------+ + + + + | | | | | Romario | | | | | | | Raheem Nieves | | | | | | | [address] | | | | | | | [address] | | | | | | | [place] | | | | | | | [address] | | | | | | | Phone: | | | | | | | [phone] | | | | | | | Fax: | | | | | | | [phone] | | +--------+--------+ + + + + + + | Scheduling Instructions | + + | [facility] Address: [address] [place] | | [address] | + + Reason for Visit AUTH/CERT +--------+--------+ + + + + | [...] | +--------+ + + + + | 06/27/ | Hospital | [facility] [address] | April Beck MD | | | 2019 - | Encounter | [address] | [address] | | | | | [place], | [address] | | | 07/03/ | | [place] [address] | [place], [place] | | | 2019 | | [phone] | [address] | | | | | | [phone] | | | | | | | [...] + + + | Blood Pressure | 129/75 | 07/03/2019 12:10 PM | | | | | PST | | + + + + + | Pulse | 97 | 07/03/2019 12:10 PM | | | | | PST | | + + + + + | Temperature | 36.6 C (97.9 F) | 07/03/2019 12:10 PM | | | | | PST | | + + + + + | Respiratory Rate | 16 | 07/03/2019 12:10 PM | | | | | PST | | + + + + + | Oxygen Saturation | 96% | 07/03/2019 12:10 PM | | | | | PST | | + + + + + | Inhaled Oxygen | - | - | | | Concentration | | | | + + + + + | Weight | 83.5 kg (184 lb) | 06/27/2019 10:14 PM | | | | | PST | | + + + + + | Height | 160 cm (5' 3") | 06/27/2019 10:14 PM | | | | | PST | | + + + + + | Body Mass Index | 32.59 | 06/27/2019 10:14 PM | | | | | PST | | + + + + + documented in this encounter Functional Status + + + + | Functional Status | Response | Date of Assessment | + + + + | Because of a physical, mental, or emotional | No | 06/29/2019 | | condition, do you have serious difficulty | | | | doing errands alone such as visiting the | | | | doctor? | | | + + + + + + + + | Cognitive Status | Response | Date of Assessment | + + + + | Because of a physical, mental, or emotional | No | 06/29/2019 | | condition, do you have serious difficulty | | | | concentrating, remembering, or making | | | | decisions? (5 years old or older) | | | + + + + documented as of this encounter Discharge Summaries Raheem Doss PA-C - 07/03/2019 2:05 PM PSTFormatting of this note might be different f rom the original. 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 Brief Hospital Course Matt Fagan is a 28 y.o. 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 Briefly, she pre sented in 2014 with gradually worsening Right leg weakness and sensory loss, and upon workup for this was found to have a non-enhancing expansile tumor of her thoracic cord. She underw ent resections in 05/2015, 09/2015, 03/2016, 01/2017, 06/2018, and again in 09/[address] presenting with worsening lower extremity function. She has been considered for radiatio n and chemotherapy but has not received either. At baseline she is independently ambulatory but uses a Right leg brace to maintain her posture and has dense sensory deficits in both le gs, worse on her left; she is normally continent of both bowels and bladder. On 06/27/19 she is transferred to [facility] after presenting to [facility] on , 06/26, with acute-onset Left leg weakness. She recalls trying to get out of bed that morning and be ing unable to stand or bear weight on the Left leg, which is usually her stronger leg. She s tates that this is the "kind of thing that always happened" before she would be indicated fo r re-resection. As a result, a new MRI was obtained in their ED which did not reveal any obv ious new tumor progression or new compressive lesion. She was accepted in transfer to the [facility] but her arrival was delayed until 06/27/19 due to bed availability. After many hours of observation and further workup at [facility], she was also diagnosed w ith a UTI. She reported then that she had recently completed a course of nitrofurantoin for a UTI but that she continued to have foul-smelling urine. A culture there was positive for E nterococcus and she was switched to levofloxacin and also started on Flagyl for presumed tesha terial vaginosis as well. It is unclear if this was beneficial, but she does report that her lower extremity strength has improved somewhat since starting these medications, and that s he was able to stand but not to walk unaided shortly before transfer here. On her arrival here, she endorsed no new or acute complaints. She denies any change in her baseline sensory deficits, nor any incontinence of bowels or bladder. She has had no fevers or chills to suggest infection and her thoracic wound has healed well with minimal residual pain or soreness. After transfer here, she again confirmed noted improvements in her symptoms with initiation of antibiotics. As imaging completed at the referring hospital did not reveal clear progre ssive tumor, we discussed the findings, and that certain neurologic symptoms may worsen in s etting of systemic illness such as infections. The patient made appropriate gains toward activity and functional goals while an inpatient. The patient worked with our rehabilitation team with recommendation for IPR upon discharge , unfortunately she only qualified for IPR with PT but not OT. While on the hospital floor, the patient tolerated oral intake sufficient to maintain nutrition and hydration. The patien t was felt appropriate for discharge to home on 07/03/2019, and the patient and/or family al mbers agree with this course of action. Activity Avoid heavy lifting, repetitive bending and all strenuous activity until further notice. No driving while taking oral narcotics/pain medications. PCP:No Pcp Per PATIENT When: Please follow-up with your primary care physician as soon as possible to review new medications and recent [...] - Severe headaches, dizziness, or visual changes Medication List START taking these medications HYDROmorphone 2 mg Tab Commonly known as: DILAUDID Take 1 tablet by mouth three times daily as needed for moderate pain. CHANGE how you take these medications baclofen 10 mg Tab Commonly known as: LIORESAL Take 1 tablet by mouth three times daily as needed. What changed: when to take this reasons to take this traZODone 50 mg Tab Commonly known as: DESYREL Take 2 tablets by mouth once daily at bedtime. May take a second dose if not asleep within 1-2 hours. What changed: how much to take CONTINUE taking these medications acetaminophen 325 mg Tab Commonly known as: TYLENOL Take 2 tablets by mouth every six hours. DULoxetine 60 mg Cpdr Commonly known as: CYMBALTA Take 2 capsules by mouth once daily at bedtime. gabapentin 300 mg Cap Commonly known as: NEURONTIN Take 2 capsules by mouth once daily at bedtime. lidocaine 5 % Ptmd Commonly known as: LIDODERM Apply 2 patches to skin every twenty-four hours. Apply patch to most painful area; Patch ma y remain in place for up to 12 hours in any 24-hour period. NEXPLANON 68 mg Impl Generic drug: etonogestrel 1 Device by subdermal route. ondansetron ODT 4 mg Tbdi Commonly known as: ZOFRAN ODT Dissolve 1-2 tablets on tongue and swallow every eight hours as needed. STOP taking these medications diazePAM 2 mg Tab Commonly known as: VALIUM omeprazole 20 mg Cpdr Commonly known as: PRILOSEC tiZANidine 4 mg Tab Commonly known as: ZANAFLEX Condition On Discharge: Good Vital Signs at discharge as appropriate: BP: 129/75 (07/03/19 1210) Pulse: 97 (07/03/19 1210) Resp: 16 ( 1210) Weight: 83.5 kg (184 lb) (06/27/192213) Discharge Patient To: Home Does patient have a planned readmission: No Discharge Summary Completed?: Yes. 07/03/2019 Discharging Provider: RAHEEM ODSS PA-C Date Completed: 07/03/2019 Time Completed: 2:05 PM Discharging Attending: April Beck MD [facility] [address] [place] [address] documented in this encounter Medications at Time of Discharge + + + +---------+ + + | Medication | Sig | Dispensed | Refills | Start | End Date | | | | | | Date | | + + + +---------+ + + | acetaminophen 325 | Take 2 tablets by | | 0 | 07/12/19 | | | mg oral | mouth every six | | | 19 | | | tabletIndications: | hours. | | | | | | Thoracic spine tumor | | | | | | + + + +---------+ + + | baclofen 10 mg | Take 1 tablet by | 12 | 0 | 07/03/20 | | | oral tablet | mouth three times | tablet | | 19 | | | | daily as needed. | | | | | + + + +---------+ + + | DULoxetine 60 mg | Take 2 capsules by | 8 | 0 | 07/03/20 | | | oral capsule,delayed | mouth once daily at | capsule | | 19 | | | release(DR/EC) | bedtime. | | | | | + + + +---------+ + + | etonogestrel | 1 Device by | | 0 | | | | (NEXPLANON) 68 mg | subdermal route. | | | | | | subdermal implant | | | | | | + + + +---------+ + + | gabapentin 300 mg | Take 2 capsules by | 8 | 0 | 07/03/20 | | | oral capsule | mouth once daily at | capsule | | 19 | | | | bedtime. | | | | | + + + +---------+ + + | HYDROmorphone 2 mg | Take 1 tablet by | 12 | 0 | 07/03/20 | | | oral | mouth three times | tablet | | 19 | | | tabletIndications: | daily as needed for | | | | | | Thoracic spine tumor | moderate pain. | | | | | + + + +---------+ + + | lidocaine 5 % | Apply 2 patches to | 30 | 0 | 07/12/19 | | | topical adhesive | skin every | patch | | 19 | | | patch,medicated | twenty-four hours. | | | | | | | Apply patch to most | | | | | | | painful area; Patch | | | | | | | may remain in place | | | | | | | for up to 12 hours | | | | | | | in any 24-hour | | | | | | | period. | | | | | + + + +---------+ + + | ondansetron ODT 4 | Dissolve 1-2 tablets | 30 | 0 | 10/09/19 | | | mg oral | on tongue and | tablet | | 19 | | | tablet,disintegratin | swallow every eight | | | | | | g | hours as needed. | | | | | + + + +---------+ + + | traZODone 50 mg | Take 2 tablets by | 8 | 0 | 07/03/20 | | | oral tablet | mouth once daily at | tablet | | 19 | | | | bedtime. May take a | | | | | | | second dose if not | | | | | | | asleep within 1-2 | | | | | | | hours. | | | | | + + + +---------+ + + documented as of this encounter Progress Notes Raheem Doss PA-C - 07/03/2019 8:35 AM PSTFormatting of this note might be different f rom the original. Neurosurgery Progress Note Hospital Day:6 Author; RAHEEM DOSS PA-C Attending Physician: April Beck MD Interval Hx: -Patient reports being able to now ambulate to bathroom in room with assistance, improved f unction from several days ago. She still feels that her right leg is "not connected" to her brain. R hip pain is improved now that she has been weight bearing on her leg and ambulating a little bit. She is looking forward to transitioning to [facility]. Last Vitals: BP 111/70 (BP Location: Right upper arm, Patient Position: Lying on back) | P ulse 73 | Temp 37 C (98.6 F) (Tympanic) | Resp 15 | Ht 1.6 m (5' 3") | Wt 83.5 kg (1 84 lb) | SpO2 96% | BMI 32.59 kg/m | BSA 1.93 m O2 Delivery Device: None (room air) (07/03/19 0801) 24 Hour Vital Min/Max: Systolic (24hrs), Av , Min:102 , Max:117 Diastolic (24hrs), Av, Min:54, Max:70Puls e Min: 70 Max: 89 Temp Min: 36.5 C (97.7 F) Max: 36.8 C (98.2 F) Resp Min: 16 Max: 16 SpO2 Min: 94 % Max: 97 % Intake/Output Summary (Last 24 hours) at 06/30/2019 1049 Last data filed at 06/30/2019 0600 Gross per 24 hour Intake 3015 ml Output 1100 ml Net 1915 ml Exam: Alert, oriented x3. Speech clear, fluent. Gaze conjugate. Face symmetric. Sensation: Minimal to no sensation on LLE/L flank. Moderate sensation on R flank/RLE - able to tell general area of light touch. Motor: Full strength throughout except for right KE at 4+/5. Current Medications: acetaminophen (TYLENOL) tablet 650 mg, 650 mg, oral, Q4H PRN baclofen (LIORESAL) tablet 10 mg, 10 mg, oral, TID bisacodyl (DULCOLAX) suppository 10 mg, 10 mg, rectal, DAILY PRN diazePAM (VALIUM) tablet 2 mg, 2 mg, oral, TID PRN DULoxetine (CYMBALTA) capsule 120 mg, 120 mg, oral, HS enoxaparin (LOVENOX) injection 40 mg, 40 mg, subcutaneous, QPM gabapentin (NEURONTIN) capsule 600 mg, 600 mg, oral, HS HYDROmorphone (DILAUDID) tablet 2 mg, 2 mg, oral, TID PRN lactobacillus rhamnosus (GG) (CULTURELLE) 15 billion cell capsule 1 capsule, 1 capsule, ora l, DAILY NaCl 0.9%-KCl 20 mEq/L IV infusion, , intravenous, CONTINUOUS ondansetron ODT (ZOFRAN ODT) tablet 8 mg, 8 mg, oral, Q12H PRN polyethylene glycol (MIRALAX) packet 34 g, 34 g, oral, TID PRN prochlorperazine (COMPAZINE) injection 5-10 mg, 5-10 mg, intravenous, Q6H PRN prochlorperazine (COMPAZINE) tablet 5-10 mg, 5-10 mg, oral, Q6H PRN senna-docusate (SENOKOT S) 8.6-50 mg 1 tablet, 1 tablet, oral, BID traZODone (DESYREL) tablet 100 mg, 100 mg, oral, HS Impression: 28 y.o. 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 She recently developed worsening function in her bilateral lower extremities in the setting of an incompletely treated UTI. Imaging w as unremarkable for objective changes in her spinal cord and the patient has improved with c onservative care. Plan: Neuro: Neuro exam is stable. Continue with plan for non-op course and follow up in clinic w flower Beck with surveillance imaging thoracic/lumbar spine MRI wwo in December 2019. If R hip p ain continues after seeing PT, can try and coordinate a joint Ortho appointment. Pain control with APAP and dilaudid prn. Cont home meds: baclofen, diazepam, duloxetine, gabapentin, trazodone. CV: HD stable. Pulm: IS, cough/deep breath GI/diet: Regular diet. +Anti-emetics. Bowel regimen prn. /ID: Afebrile. Amoxicillin vs UTI, course completed on 07/02. Flagyl vs BV, course comple kellen on 07/02. Musculoskeletal/skin: Routine decubitus ulcer prevention. Appreciate PT/OT involvement with recs for IPR. Endo: No active issues. DVT ppx: SCDs while in bed, on ppx Lovenox. Dispo: Medically improved. Awaiting transfer to [facility] once accepted. Appreciate CM assistance . RAHEEM DOSS PA-C [facility] [address] [place] [address] Sudhir Reinoso MD - 07/02/2019 11:16 AM PSTFormatting of this note might be different from the origi nal. NEUROSURGERY INPATIENT PROGRESS NOTE Hospital Day:5 Author: Samm Riojas MD Attending Physician: April Beck MD Interval Hx: - no acute events overnight 24 Hour Vital Min/Max: Systolic (24hrs), Av , Min:94 , Max:127 Diastolic (24hrs), Av, Min:57, Max:77 Pulse Min: 63 Max: 88 Temp Min: 36.6 C (97.9 F) Max: 36.8 C (98.2 F) Resp Min: 16 Max: 16 SpO2 Min: 96 % Max: 97 % Intake/Output Summary (Last 24 hours) at 07/02/2019 1116 Last data filed at 07/02/2019 0830 Gross per 24 hour Intake 400 ml Output 2900 ml Net -2500 ml MEDICATIONS Current Facility-Administered Medications Medication acetaminophen (TYLENOL) tablet 650 mg amoxicillin (TRIMOX,AMOXIL) capsule 500 mg baclofen (LIORESAL) tablet 10 mg bisacodyl (DULCOLAX) suppository 10 mg diazePAM (VALIUM) tablet 2 mg DULoxetine (CYMBALTA) capsule 120 mg enoxaparin (LOVENOX) injection 40 mg gabapentin (NEURONTIN) capsule 600 mg HYDROmorphone (DILAUDID) tablet 2 mg lactobacillus rhamnosus (GG) (CULTURELLE) 15 billion cell capsule 1 capsule metroNIDAZOLE (FLAGYL) tablet 500 mg NaCl 0.9%-KCl 20 mEq/L IV infusion ondansetron ODT (ZOFRAN ODT) tablet 8 mg polyethylene glycol (MIRALAX) packet 34 g prochlorperazine (COMPAZINE) injection 5-10 mg prochlorperazine (COMPAZINE) tablet 5-10 mg senna-docusate (SENOKOT S) 8.6-50 mg 1 tablet traZODone (DESYREL) tablet 100 mg Physical Exam: Last Vitals: BP 94/57 (BP Location: Right upper arm, Patient Position: Lying on back) | Pu lse 80 | Temp 36.7 C (98.1 F) (Oral) | Resp 16 | Ht 1.6 m (5' 3") | Wt 83.5 kg (184 lb) | SpO2 95% | BMI 32.59 kg/m | BSA 1.93 m O2 Delivery Device: None (room air) (07/02/19 0814) General: 28 y.o. female in NAD Neuro: Alert and oriented x 3, gaze conjugate, EOMI, face symmetric, facial sensation intac t, tongue midline, shoulder shrug equal Motor: Delt Tri Bi Touch Up Painter Hand HF KF KE APF ADF EHL Left 5 5 5 5 5 5 5 5 5 5 Right 5 5 5 5 5 5 4+ 4 4 4 Sensation: light touch grossly intact Psychiatric: Appropriate and cooperative Assessment/Plan: Matt Fagan is a 28 y.o. female with low grade glioneuronal thorac ic cord tumor s/p six resections (05/13/15, 09/09/15, 03/22/2016, 01/13/17, 07/08/18 and 09/30/18). She recently developedworsening function in her bilateral lower extremities in the settin g of an incompletely treated UTI. Imaging was unremarkable for objective changes in her spin al cord and the patient has improved with conservative care. Neurological: Neuro exam is stable. Will anticipate non-op course for the time being and fo llow up in clinic with Dr. Beck with surveillance imaging thoracic/lumbar spine MRI wwo in 2019. Continue home meds duloxetine, trazodone Pain: currently well-controlled, continue home baclofen, diazepam, gabapentin Cardiovascular: HD stable Pulm: IS, cough/deep breath GI: oral diet; anti-emetics prn; bowel regimen / Renal: voiding independently ID/Heme: afebrile; Amoxicillin vs UTI, course to complete on 07/02. Flagyl vs BV, course to complete on 07/02. Endocrine: No active issues. No need for ISS presently. Musculoskeletal / Skin: Routine decubitus ulcer prevention. Rehab: appreciate PT/OT recs for IPR DVT prophylaxis: SCDs while in bed, ppx Lovenox Disposition: medically ready for DC, appropriate for IPR, CM sent referral to TRISTON Riojas MD Neurosurgery PGY1 Pager [phone] Timur, PHILIPPE Mullins - 07/01/2019 7:12 AM PSTFormatting of this note might be different from the orig inal. NEUROSURGERY INPATIENT PROGRESS NOTE Hospital Day:4 Author; Elif Mcclain PA-C Attending Physician: April Beck MD Interval Hx: - no acute events overnight - pt reports she feels slightly improved since onset but does not feel steady on her feet 24 Hour Vital Min/Max: Systolic (24hrs), Av , Min:94 , Max:115 Diastolic (24hrs), Av, Min:52, Max:64 Pulse Min: 63 Max: 88 Temp Min: 36.6 C (97.9 F) Max: 36.8 C (98.2 F) Resp Min: 16 Max: 16 SpO2 Min: 96 % Max: 97 % Intake/Output Summary (Last 24 hours) at 07/01/2019 0712 Last data filed at 07/01/2019 0439 Gross per 24 hour Intake 1600 ml Output 2675 ml Net -1075 ml MEDICATIONS Current Facility-Administered Medications Medication acetaminophen (TYLENOL) tablet 650 mg amoxicillin (TRIMOX,AMOXIL) capsule 500 mg baclofen (LIORESAL) tablet 10 mg bisacodyl (DULCOLAX) suppository 10 mg diazePAM (VALIUM) tablet 2 mg DULoxetine (CYMBALTA) capsule 120 mg enoxaparin (LOVENOX) injection 40 mg gabapentin (NEURONTIN) capsule 600 mg HYDROmorphone (DILAUDID) tablet 2 mg metroNIDAZOLE (FLAGYL) tablet 500 mg NaCl 0.9%-KCl 20 mEq/L IV infusion ondansetron ODT (ZOFRAN ODT) tablet 8 mg polyethylene glycol (MIRALAX) packet 34 g probiotic yogurt (BRYN'S YOGURT) prochlorperazine (COMPAZINE) injection 5-10 mg prochlorperazine (COMPAZINE) tablet 5-10 mg senna-docusate (SENOKOT S) 8.6-50 mg 1 tablet traZODone (DESYREL) tablet 100 mg Physical Exam: Last Vitals: BP 99/52 (BP Location: Right upper arm, Patient Position: Lying on back) | Pu lse 76 | Temp 36.6 C (97.9 F) (Oral) | Resp 16 | Ht 1.6 m (5' 3") | Wt 83.5 kg (184 lb) | SpO2 96% | BMI 32.59 kg/m | BSA 1.93 m O2 Delivery Device: None (room air) (07/01/19 4150) General: 28 y.o. female in NAD Neuro: Alert and oriented x 3, gaze conjugate, EOMI, face symmetric, facial sensation intac t, tongue midline, shoulder shrug equal Motor: Delt Tri Bi Touch Up Painter Hand HF KF KE APF ADF EHL Left 5 5 5 5 5 5 5 5 5 5 Right 5 5 5 5 5 5 4+ 5 4 5 Sensation: light touch grossly intact Psychiatric: Appropriate and cooperative Assessment/Plan: Matt Fagan is a 28 y.o. female with low grade glioneuronal thorac ic cord tumor s/p six resections (05/13/15, 09/09/15, 03/22/2016, 01/13/17, 07/08/18 and 09/30/18). She recently developedworsening function in her bilateral lower extremities in the settin g of an incompletely treated UTI. Imaging was unremarkable for objective changes in her spin al cord and the patient has improved with conservative care. Neurological: Neuro exam is stable. Will anticipate non-op course for the time being and fo llow up in clinic with Dr. Beck with surveillance imaging thoracic/lumbar spine MRI wwo in 2019. Continue home meds duloxetine, trazodone Pain: currently well-controlled, continue home baclofen, diazepam, gabapentin Cardiovascular: HD stable Pulm: IS, cough/deep breath GI: oral diet; anti-emetics prn; bowel regimen / Renal: voiding independently ID/Heme: afebrile; Amoxicillin vs UTI, course to complete on 07/02. Flagyl vs BV, course to complete on 07/02. Endocrine: No active issues. No need for ISS presently. Musculoskeletal / Skin: Routine decubitus ulcer prevention. Rehab: appreciate PT/OT recs for IPR DVT prophylaxis: SCDs while in bed, ppx Lovenox Disposition: medically ready for DC, appropriate for IPR, CM sent referral to TRISTON Mcclain PA-C [facility] [address] [place] [address] dams, Prosper Mena - 06/30/2019 10:49 AM PST Neurosurgery Progress Note Hospital Day:3 Author; RAHEEM DOSS PA-C Attending Physician: April Beck MD Interval Hx: -Patient reports stable symptoms overnight. States she can now stand on her legs as opposed to not being able to stand at all last . She is happy she is not needing further herrera rgery right now. Last Vitals: BP 104/58 (BP Location: Right upper arm, Patient Position: Lying on back) | P ulse 70 | Temp 36.6 C (97.9 F) (Oral) | Resp 16 | Ht 1.6 m (5' 3") | Wt 83.5 kg (184 lb) | SpO2 97% | BMI 32.59 kg/m | BSA 1.93 m O2 Delivery Device: None (room air) (06/30/19 0914) 24 Hour Vital Min/Max: Systolic (24hrs), Av , Min:97 , Max:111 Diastolic (24hrs), Av, Min:52, Max:63Pulse Min: 70 Max: 89 Temp Min: 36.5 C (97.7 F) Max: 36.8 C (98.2 F) Resp Min: 16 Max: 16 SpO2 Min: 94 % Max: 97 % Intake/Output Summary (Last 24 hours) at 06/30/2019 1049 Last data filed at 06/30/2019 0600 Gross per 24 hour Intake 3015 ml Output 1100 ml Net 1915 ml Exam: Alert, oriented x3. Speech clear, fluent. Gaze conjugate. Face symmetric. Sensation: Minimal to no sensation on LLE/L flank. Moderate sensation on R flank/RLE - able to tell general area of light touch. Motor: Full strength throughout except for right KE at 4/5. Current Medications: acetaminophen (TYLENOL) tablet 650 mg, 650 mg, oral, Q4H PRN amoxicillin (TRIMOX,AMOXIL) capsule 500 mg, 500 mg, oral, BID baclofen (LIORESAL) tablet 10 mg, 10 mg, oral, TID bisacodyl (DULCOLAX) suppository 10 mg, 10 mg, rectal, DAILY PRN diazePAM (VALIUM) tablet 2 mg, 2 mg, oral, TID PRN DULoxetine (CYMBALTA) capsule 120 mg, 120 mg, oral, HS gabapentin (NEURONTIN) capsule 600 mg, 600 mg, oral, HS HYDROmorphone (DILAUDID) tablet 2-4 mg, 2-4 mg, oral, Q4H PRN metroNIDAZOLE (FLAGYL) tablet 500 mg, 500 mg, oral, TID NaCl 0.9%-KCl 20 mEq/L IV infusion, , intravenous, CONTINUOUS ondansetron ODT (ZOFRAN ODT) tablet 8 mg, 8 mg, oral, Q12H PRN polyethylene glycol (MIRALAX) packet 34 g, 34 g, oral, TID PRN prochlorperazine (COMPAZINE) injection 5-10 mg, 5-10 mg, intravenous, Q6H PRN prochlorperazine (COMPAZINE) tablet 5-10 mg, 5-10 mg, oral, Q6H PRN senna-docusate (SENOKOT S) 8.6-50 mg 1 tablet, 1 tablet, oral, BID traZODone (DESYREL) tablet 100 mg, 100 mg, oral, HS Impression: 28 y.o. 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 She recently developed worsening function in her bilateral lower extremities in the setting of an incompletely treated UTI. Imaging w as unremarkable for objective changes in her spinal cord and the patient has improved with c onservative care. Plan: Neuro: Neuro exam is stable. Will anticipate non-op course for the time being and follow up in clinic with Dr. Beck with surveillance imaging thoracic/lumbar spine MRI wwo in December 2019 . Pain control with APAP and dilaudid prn. Cont home meds: baclofen, diazepam, duloxetine, gabapentin, trazodone. CV: HD stable. Pulm: IS, cough/deep breath GI/diet: Regular diet. +Anti-emetics. /ID: Afebrile. Amoxicillin vs UTI, course to complete on 07/02. Flagyl vs BV, course to c omplete on 07/02. Musculoskeletal/skin: Routine decubitus ulcer prevention. Appreciate PT eval with recs for IPR. Will have OT eval patient. Endo: No active issues. DVT ppx: SCDs while in bed, will start ppx Lovenox while in house and not ambulatory. Dispo: Medically stable. Will be a good candidate for IPR. RAHEEM DOSS PA-C [facility] [id number] [place] [address] Valerie Beltran MD - 06/28/2019 7:39 PM PST NEUROSURGERY PROGRESS NOTE 06/29/2019 Hospital Day #: 1 Attending: April Beck MD Interval Events: - home baclofen started for muscle spasms - antibiotics for UTI and BV Objective: Last Vitals: BP 108/71 (BP Location: Right upper arm, Patient Position: Lying on back) | P ulse 71 | Temp 36.5 C (97.7 F) (Oral) | Resp 14 | Ht 1.6 m (5' 3") | Wt 83.5 kg (184 lb) | SpO2 100% | BMI 32.59 kg/m | BSA 1.93 m 24 Hour Vital Min/Max: Systolic (24hrs), Av , Min:108 , Max:112 Diastolic (24hrs), Av, Min:66, Max:78 Pulse Min: 71 Max: 79 Temp Min: 36.5 C (97.7 F) Max: 36.6 C (97.9 F) Resp Min: 14 Max: 16 SpO2 Min: 97 % Max: 99 % Intake/Output Summary (Last 24 hours) at 06/29/2019 0930 Last data filed at 06/29/2019 0715 Gross per 24 hour Intake 1900 ml Output 2050 ml Net -150 ml Physical Exam: Awake, alert, oriented to self, time, place Following commands briskly Speech fluent PERRL EOMI Face symmetric Shoulder shrug equal bilaterally No pronator drift RUE: 5/5 D/B/T/HG/DI LUE: 5/5 D/B/T/HG/DI RLE: 4+/5 HF/KE 4+/5 KF 4+/5 DF/EHL/PF 3 beats of clonus, upgoing Babinski LLE: 5/5 HF/KE/KF/DF/EHL/PF no clonus, upgoing Babinski Sensation absent on Left and greatly diminished on Right below T5 Well healed posterior midline thoracic incision Labs: Lab Results Component Value Date/Time NA 138 10/01/2018 01:12 PM NA 142 01/13/2017 03:46 PM NA 135 (L) 01/11/2017 05:45 AM K 3.6 10/01/2018 01:12 PM K 3.0 (L) 01/13/2017 03:46 PM K 3.2 (L) 01/11/2017 05:45 AM CR 0.75 10/01/2018 01:12 PM CR 0.8 01/11/2017 05:45 AM HCT 38.8 10/01/2018 01:12 PM HCT 36.0 01/13/2017 03:46 PM HCT 37.6 01/11/2017 05:05 AM WBC 9.57 10/01/2018 01:12 PM WBC 11.2 (H) 01/11/2017 05:05 AM PLT 282 10/01/2018 01:12 PM PLT 238 01/11/2017 05:05 AM Current Facility-Administered Medications Medication Dose Route Frequency acetaminophen (TYLENOL) tablet 650 mg 650 mg oral Q4H PRN amoxicillin (TRIMOX,AMOXIL) capsule 500 mg 500 mg oral BID baclofen (LIORESAL) tablet 10 mg 10 mg oral TID bisacodyl (DULCOLAX) suppository 10 mg 10 mg rectal DAILY PRN diazePAM (VALIUM) tablet 2 mg 2 mg oral TID PRN DULoxetine (CYMBALTA) capsule 120 mg 120 mg oral HS gabapentin (NEURONTIN) capsule 600 mg 600 mg oral HS HYDROmorphone (DILAUDID) tablet 2-4 mg 2-4 mg oral Q4H PRN metroNIDAZOLE (FLAGYL) tablet 500 mg 500 mg oral TID NaCl 0.9%-KCl 20 mEq/L IV infusion intravenous CONTINUOUS ondansetron ODT (ZOFRAN ODT) tablet 8 mg 8 mg oral Q12H PRN polyethylene glycol (MIRALAX) packet 34 g 34 g oral TID PRN prochlorperazine (COMPAZINE) injection 5-10 mg 5-10 mg intravenous Q6H PRN prochlorperazine (COMPAZINE) tablet 5-10 mg 5-10 mg oral Q6H PRN senna-docusate (SENOKOT S) 8.6-50 mg 1 tablet 1 tablet oral BID traZODone (DESYREL) tablet 100 mg 100 mg oral HS ASSESSMENT: Matt Fagan is a 28 y.o. female with a history of thoracic cord low-grade glioneuro nal tumor s/p resections x6 who now presents with an acute decline in lower extremity functi on in the setting of an inadequately treated UTI. Patient with weakness of LLE. Spine T/L MR I appears relatively stable from prior. PLAN: Neurological: - Pain control: APAP PRN, baclofen 10mg TID, valium 2mg TID PRN, gabapentin 600mg daily, hy dromorphone 2-4mg q4h PRN - home baclofen 10mg TID for spasms - Monitor for acute neurologic changes - continue duloxetine - continue trazadone for sleep HEENT: - Routine wound care Cardiovascular: - BP and HR stable Respiratory: - Sats stable on room air; IS/cough/deep breathing, O2 prn GI: - Diet: Regular - Bowel regimen / Renal: - 24-hour I/O goal: euvolemic ID/HO: - AF, VSS - amoxicillin 500mg BID (end 07/02), flagyl 500mg TID (end:07/02) Endocrine: - No insulin requirement Musculoskeletal / Skin: - Routine decubitus ulcer prevention - PT: IPR DVT prophylaxis: - SCDs while in bed, hold prophylactic Lovenox Disposition: - Pending clinical course, PT recommends IPR, appreciate CM assistance Please page [phone] with any questions or concerns. Valerie Sanon MD Neurosurgery PGY-1 Tatiana Meza RN - 06/28/2019 12:16 PM PSTActing as scribe for the UR Committee Physician named below. The primary medical team for this patient and the [facility] UR Committee have agreed after furth er study that an inpatient admission was not medically necessary. This hospital stay is con verted to an outpatient stay through use of Medicare Condition Code 44. The patient was not ified of this change in writing. The providers involved in this decision were: For patient s primary medical team: Samm Riojas MD. For [facility] UR Committee: Regla Rodriguez MD Samm Reinoso MD - 06/28/2019 8:20 AM PST NEUROSURGERY PROGRESS NOTE 06/28/2019 Hospital Day #: 1 Attending: April Beck MD Interval Events: - admitted to [facility] - continues to endorse stable LLE that is worse from baseline Objective: Last Vitals: BP 111/66 (BP Location: Right upper arm, Patient Position: Lying on back) | P ulse 79 | Temp 36.5 C (97.7 F) (Oral) | Resp 14 | Ht 1.6 m (5' 3") | Wt 83.5 kg (184 lb) | SpO2 99% | BMI 32.59 kg/m | BSA 1.93 m 24 Hour Vital Min/Max: Systolic (24hrs), Av , Min:111 , Max:112 Diastolic (24hrs), Av, Min:66, Max:78 Pulse Min: 71 Max: 79 Temp Min: 36.5 C (97.7 F) Max: 36.6 C (97.9 F) Resp Min: 14 Max: 16 SpO2 Min: 97 % Max: 99 % Intake/Output Summary (Last 24 hours) at 06/28/2019 1621 Last data filed at 06/28/2019 1230 Gross per 24 hour Intake 10 ml Output 600 ml Net -590 ml Physical Exam: Awake, alert, oriented to self, time, place Following commands briskly Speech fluent PERRL EOMI Face symmetric Shoulder shrug equal bilaterally No pronator drift RUE: 5/5 D/B/T/HG/DI LUE: 5/5 D/B/T/HG/DI RLE: 4+/5 HF/KE 4/5 KF 4+/5 DF/EHL/PF Patella/Achilles 3+, 3 beats of clonus, upgoing Babinski LLE: 5/5 HF/KE/KF/DF/EHL/PF Patella/Achilles 3+, no clonus, upgoing Babinski Sensation absent on Left and greatly diminished on Right below T5 Well healed posterior midline thoracic incision Labs: Lab Results Component Value Date/Time NA 138 10/01/2018 01:12 PM NA 142 01/13/2017 03:46 PM NA 135 (L) 01/11/2017 05:45 AM K 3.6 10/01/2018 01:12 PM K 3.0 (L) 01/13/2017 03:46 PM K 3.2 (L) 01/11/2017 05:45 AM CR 0.75 10/01/2018 01:12 PM CR 0.8 01/11/2017 05:45 AM HCT 38.8 10/01/2018 01:12 PM HCT 36.0 01/13/2017 03:46 PM HCT 37.6 01/11/2017 05:05 AM WBC 9.57 10/01/2018 01:12 PM WBC 11.2 (H) 01/11/2017 05:05 AM PLT 282 10/01/2018 01:12 PM PLT 238 01/11/2017 05:05 AM Current Facility-Administered Medications Medication Dose Route Frequency acetaminophen (TYLENOL) tablet 650 mg 650 mg oral Q4H PRN amoxicillin (TRIMOX,AMOXIL) capsule 500 mg 500 mg oral BID baclofen (LIORESAL) tablet 10 mg 10 mg oral TID bisacodyl (DULCOLAX) suppository 10 mg 10 mg rectal DAILY PRN diazePAM (VALIUM) tablet 2 mg 2 mg oral TID PRN DULoxetine (CYMBALTA) capsule 120 mg 120 mg oral HS gabapentin (NEURONTIN) capsule 600 mg 600 mg oral HS HYDROmorphone (DILAUDID) tablet 2-4 mg 2-4 mg oral Q4H PRN metroNIDAZOLE (FLAGYL) tablet 500 mg 500 mg oral TID NaCl 0.9%-KCl 20 mEq/L IV infusion intravenous CONTINUOUS ondansetron ODT (ZOFRAN ODT) tablet 8 mg 8 mg oral Q12H PRN polyethylene glycol (MIRALAX) packet 34 g 34 g oral TID PRN prochlorperazine (COMPAZINE) injection 5-10 mg 5-10 mg intravenous Q6H PRN prochlorperazine (COMPAZINE) tablet 5-10 mg 5-10 mg oral Q6H PRN senna-docusate (SENOKOT S) 8.6-50 mg 1 tablet 1 tablet oral BID traZODone (DESYREL) tablet 100 mg 100 mg oral HS ASSESSMENT: Matt Fagan is a 28 y.o. female with a history of thoracic cord low-grade glioneuro nal tumor s/p resections x6 who now presents with an acute decline in lower extremity functi on in the setting of an inadequately treated UTI. Patient with weakness of LLE. Spine T/L MR I appears relatively stable from prior. PLAN: Neurological: - Pain control: APAP PRN, baclofen 10mg TID, valium 2mg TID PRN, gabapentin 600mg daily, hy dromorphone 2-4mg q4h PRN - Monitor for acute neurologic changes - continue duloxetine - continue trazadone for sleep HEENT: - Routine wound care Cardiovascular: - BP and HR stable Respiratory: - Sats stable on room air; IS/cough/deep breathing, O2 prn GI: - Diet: Regular - Bowel regimen / Renal: - 24-hour I/O goal: euvolemic ID/HO: - AF, VSS Endocrine: - No insulin requirement Musculoskeletal / Skin: - Routine decubitus ulcer prevention - PT: IPR DVT prophylaxis: - SCDs while in bed, hold prophylactic Lovenox Disposition: - Pending clinical course, PT recommends IPR Please page [phone] with any questions or concerns. Samm Riojas MD Neurosurgery PGY-1 Pager [phone] Associated attestation - Jere Story MD - 06/28/2019 5:45 PM PSTPT/OT, discharge ann telles May need IPR. Will need to re-establish care with [facility] neurosurgery. I have seen and examined the patient. I agree with the resident's documentation and have d ocumented any additions or exceptions. Jere Story MD [employer] Worker - Skull base and Cerebrovascular Neurosurgery Department of Neurological Ship StewardLeather Production Worker - Interventional Neuroradiology Kirt Duron Department of Interventional Radiology [facility] [place] documented in this encounter Plan of Treatment +--------+ + + + + | Date | Type | Specialty | Care Team | Description | +--------+ + + + + | 06/30/ | Procedure | Radiology | | | | 2018 | Pass | | | | +--------+ + + + + | 12/10/ | Appointment | Radiology | Raheem Doss, | | | 2019 | | | [facility] [address] | | | | | | [place], [place] | | | | | | [address] | | | | | | [phone] | | | | | | | | +--------+ + + + + | 12/10/ | Office | Neurological Surgery | April Beck MD | | | 2019 | Visit | | [address] | | | | | | [address] | | | | | | [place], [place] | | | | | | [address] | | | | | | [phone] | | | | | | | | +--------+ + + + + + +---------+--------+ + + | Name | Type | Priori | Associated Diagnoses | Order Schedule | | | | ty | | | + +---------+--------+ + + | ORTHOTIC REFERRAL | Consult | Routin | Thoracic spine | Ordered: 07/03/2019 | | | | e | tumor | | + +---------+--------+ + + documented as of this encounter Visit Diagnoses + + | [...] | | | + +--------+ +--------+------+------+ | amoxicillin (TRIMOX,AMOXIL) | Given | 07/02/20 | 500 mg | | | | capsule 500 mg 500 mg, oral, | | 19 9:44 | | | | | TWICE DAILY, 10 doses, First dose | | PM PST | | | | | on 06/28/19 at 1300, Last | | | | | | | dose on 07/02/19 at 2100 | | | | | | + +--------+ +--------+------+------+ +-------+ +--------+---+---+ | Given | 07/02/20 | 500 mg | | | | | 19 8:44 | | | | | | AM PST | | | | +-------+ +--------+---+---+ | Given | 07/01/20 | 500 mg | | | | | 19 9:37 | | | | | | PM PST | | | | +-------+ +--------+---+---+ +---+---+ | | | +---+---+ + +-------+ +-------+---+---+ | baclofen (LIORESAL) tablet 10 | Given | 07/03/20 | 10 mg | | | | mg 10 mg, oral, THREE TIMES | | 19 9:04 | | | | | DAILY, First dose on 06/28/19 | | AM PST | | | | | at 1300, Until Discontinued | | | | | | + +-------+ +-------+---+---+ +-------+ +-------+---+---+ | Given | 07/02/20 | 10 mg | | | | | 19 9:45 | | | | | | PM PST | | | | +-------+ +-------+---+---+ | Given | 07/02/20 | 10 mg | | | | | 19 4:20 | | | | | | PM PST | | | | +-------+ +-------+---+---+ +---+---+ | | | +---+---+ + +-------+ +------+---+---+ | diazePAM (VALIUM) tablet 2 mg | Given | 07/01/20 | 2 mg | | | | 2 mg, oral, THREE TIMES DAILY | | 19 4:39 | | | | | NEEDED, Starting Sun06/27/19 at | | AM PST | | | | | 2214, Until Miriam 07/03/19 at 2041, | | | | | | | muscle spasms | | | | | | + +-------+ +------+---+---+ +-------+ +------+---+---+ | Given | 06/29/20 | 2 mg | | | | | 19 7:00 | | | | | | PM PST | | | | +-------+ +------+---+---+ | Given | 06/28/20 | 2 mg | | | | | 19 6:01 | | | | | | PM PST | | | | +-------+ +------+---+---+ +---+---+ | | | +---+---+ + +-------+ +--------+---+---+ | DULoxetine (CYMBALTA) capsule | Given | 07/02/20 | 120 mg | | | | 120 mg 120 mg, oral, AT BEDTIME, | | 19 11:12 | | | | | First dose on Sun06/27/19 at | | PM PST | | | | | 2345, Until Discontinued | | | | | | + +-------+ +--------+---+---+ +-------+ +--------+---+---+ | Given | 07/01/20 | 120 mg | | | | | 19 11:49 | | | | | | PM PST | | | | +-------+ +--------+---+---+ | Given | 06/30/20 | 120 mg | | | | | 19 10:40 | | | | | | PM PST | | | | +-------+ +--------+---+---+ +---+---+ | | | +---+---+ + +-------+ +-------+---+---------+ | enoxaparin (LOVENOX) injection | Given | 07/02/20 | 40 mg | | Abdomen | | 40 mg 40 mg, subcutaneous, EVERY | | 19 9:44 | | | | | EVENING, First dose on Mon | | PM PST | | | | | 06/30/19 at 2100, Until | | | | | | | Discontinued | | | | | | + +-------+ +-------+---+---------+ +-------+ +-------+---+---------+ | Given | 07/01/20 | 40 mg | | Abdomen | | | 19 9:41 | | | | | | PM PST | | | | +-------+ +-------+---+---------+ | Given | 06/30/20 | 40 mg | | Abdomen | | | 19 9:19 | | | | | | PM PST | | | | +-------+ +-------+---+---------+ +---+---+ | | | +---+---+ + +-------+ +--------+---+---+ | gabapentin (NEURONTIN) capsule | Given | 07/02/20 | 600 mg | | | | 600 mg 600 mg, oral, AT BEDTIME, | | 19 11:12 | | | | | First dose on Sun06/27/19 at | | PM PST | | | | | 2230, Until Discontinued | | | | | | + +-------+ +--------+---+---+ +-------+ +--------+---+---+ | Given | 07/01/20 | 600 mg | | | | | 19 11:49 | | | | | | PM PST | | | | +-------+ +--------+---+---+ | Given | 06/30/20 | 600 mg | | | | | 19 10:40 | | | | | | PM PST | | | | +-------+ +--------+---+---+ +---+---+ | | | +---+---+ + +-------+ +------+---+---+ | HYDROmorphone (DILAUDID) tablet | Given | 07/02/20 | 2 mg | | | | 2 mg 2 mg, oral, THREE TIMES | | 19 7:22 | | | | | DAILY NEEDED, Starting Mon | | AM PST | | | | | 06/30/19 at 1345, Until Miriam | | | | | | | 07/03/19 at 2041, moderate pain | | | | | | + +-------+ +------+---+---+ +-------+ +------+---+---+ | Given | 07/01/20 | 2 mg | | | | | 19 4:58 | | | | | | PM PST | | | | +-------+ +------+---+---+ | Given | 07/01/20 | 2 mg | | | | | 19 11:25 | | | | | | AM PST | | | | +-------+ +------+---+---+ +---+---+ | | | +---+---+ + +-------+ +------+---+---+ | HYDROmorphone (DILAUDID) tablet | Given | 06/30/20 | 4 mg | | | | 2-4 mg 2-4 mg, oral, EVERY 4 | | 19 12:51 | | | | | HOURS NEEDED, Starting Fri | | PM PST | | | | | 06/27/19 at 2318, Until Mon | | | | | | | 06/30/19 at 1342, moderate pain | | | | | | + +-------+ +------+---+---+ +-------+ +------+---+---+ | Given | 06/30/20 | 2 mg | | | | | 19 6:13 | | | | | | AM PST | | | | +-------+ +------+---+---+ | Given | 06/29/20 | 2 mg | | | | | 19 8:47 | | | | | | PM PST | | | | +-------+ +------+---+---+ +---+---+ | | | +---+---+ + +-------+ +---------+---+---+ | lactobacillus rhamnosus (GG) | Given | 07/03/20 | 1 | | | | (CULTURELLE) 15 billion cell | | 19 9:04 | capsule | | | | capsule 1 capsule 1 capsule, | | AM PST | | | | | oral, DAILY, First dose on Sun | | | | | | | 07/02/19 at 1215, Until | | | | | | | Discontinued | | | | | | + +-------+ +---------+---+---+ +-------+ +---------+---+---+ | Given | 07/02/20 | 1 | | | | | 19 11:29 | capsule | | | | | AM PST | | | | +-------+ +---------+---+---+ +---+---+ | | | +---+---+ + +-------+ +--------+---+---+ | metroNIDAZOLE (FLAGYL) tablet | Given | 07/02/20 | 500 mg | | | | 500 mg 500 mg, oral, THREE TIMES | | 19 9:45 | | | | | DAILY, 16 doses, First dose on | | PM PST | | | | | 06/28/19 at 0000, Last dose | | | | | | | on Sun07/02/19 at 2200 | | | | | | + +-------+ +--------+---+---+ +-------+ +--------+---+---+ | Given | 07/02/20 | 500 mg | | | | | 19 4:20 | | | | | | PM PST | | | | +-------+ +--------+---+---+ | Given | 07/02/20 | 500 mg | | | | | 19 8:44 | | | | | | AM PST | | | | +-------+ +--------+---+---+ +---+---+ | | | +---+---+ + + + +---+ +---+ | NaCl 0.9%-KCl 20 mEq/L IV | Rate/Dos | 07/03/20 | | 75 mL/hr | | | infusion intravenous, | e Verify | 19 9:06 | | | | | CONTINUOUS, Starting 06/27/19 | | AM PST | | | | | at 2300, Until Miriam 07/03/19 at | | | | | | | 2041, at 75 mL/hr | | | | | | + + + +---+ +---+ + + +---+ +---+ | New Bag | 07/03/20 | | 75 mL/hr | | | | 19 5:22 | | | | | | AM PST | | | | + + +---+ +---+ | Rate/Dose Verify | 07/03/20 | | 75 mL/hr | | | | 19 3:43 | | | | | | AM PST | | | | + + +---+ +---+ +---+---+ | | | +---+---+ + +-------+ +------+---+---+ | ondansetron ODT (ZOFRAN ODT) | Given | 07/01/20 | 8 mg | | | | tablet 8 mg 8 mg, oral, EVERY 12 | | 19 9:16 | | | | | HOURS NEEDED, Starting Fri | | AM PST | | | | | 06/27/19 at 2219, Until Miriam | | | | | | | 07/03/19 at 204, | | | | | | | nausea/vomiting, first line | | | | | | + +-------+ +------+---+---+ +-------+ +------+---+---+ | Given | 06/30/20 | 8 mg | | | | | 19 9:12 | | | | | | AM PST | | | | +-------+ +------+---+---+ | Given | 06/29/20 | 8 mg | | | | | 19 7:17 | | | | | | AM PST | | | | +-------+ +------+---+---+ +---+---+ | | | +---+---+ + +-------+ +------+---+---+ | polyethylene glycol (MIRALAX) | Given | 07/02/20 | 34 g | | | | packet 34 g 34 g, oral, THREE | | 19 9:44 | | | | | TIMES DAILY NEEDED, Starting | | PM PST | | | | | 06/27/19 at 2219, Until Miriam | | | | | | | 07/03/19 at 2040, 1st line - for | | | | | | | no BM for 2 days | | | | | | + +-------+ +------+---+---+ +-------+ +------+---+---+ | Given | 07/02/20 | 34 g | | | | | 19 8:45 | | | | | | AM PST | | | | +-------+ +------+---+---+ +---+---+ | | | +---+---+ + + + +---+---+---+ | probiotic yogurt (BRYN'S | Given - | 07/01/20 | | | | | YOGURT) oral, THREE TIMES DAILY, | Food | 19 10:46 | | | | | First dose on Sun06/30/19 at | | AM PST | | | | | 1600, Until Discontinued | | | | | | + + + +---+---+---+ + + +---+---+---+ | Given - Food | 06/30/20 | | | | | | 19 10:40 | | | | | | PM PST | | | | + + +---+---+---+ +---+---+ | | | +---+---+ + +-------+ +------+---+---+ | prochlorperazine (COMPAZINE) | Given | 07/01/20 | 5 mg | | | | injection 5-10 mg 5-10 mg, | | 19 8:46 | | | | | intravenous, EVERY 6 HOURS | | PM PST | | | | | NEEDED, Starting Sun06/27/19 at | | | | | | | 2219, Until Miriam 07/03/19 at 2040, | | | | | | | nausea/vomiting not responding | | | | | | | to ondansetron and unable to take | | | | | | | oral prochlorperazine | | | | | | + +-------+ +------+---+---+ +-------+ +------+---+---+ | Given | 06/28/20 | 5 mg | | | | | 19 8:07 | | | | | | AM PST | | | | +-------+ +------+---+---+ +---+---+ | | | +---+---+ + +-------+ +------+---+---+ | prochlorperazine (COMPAZINE) | Given | 06/30/20 | 5 mg | | | | tablet 5-10 mg 5-10 mg, oral, | | 19 11:06 | | | | | EVERY 6 HOURS NEEDED, Starting | | AM PST | | | | | 06/27/19 at 2219, Until Miriam | | | | | | | 07/03/19 at 2040, | | | | | | | nausea/vomiting, second line | | | | | | + +-------+ +------+---+---+ +---+---+ | | | +---+---+ + +-------+ + +---+---+ | senna-docusate (SENOKOT S) | Given | 07/03/20 | 1 tablet | | | | 8.6-50 mg 1 tablet 1 tablet, | | 19 9:04 | | | | | oral, TWICE DAILY, First dose on | | AM PST | | | | | 06/28/19 at 0900, Until | | | | | | | Discontinued | | | | | | + +-------+ + +---+---+ +-------+ + +---+---+ | Given | 07/02/20 | 1 tablet | | | | | 19 9:45 | | | | | | PM PST | | | | +-------+ + +---+---+ | Given | 07/02/20 | 1 tablet | | | | | 19 8:44 | | | | | | AM PST | | | | +-------+ + +---+---+ +---+---+ | | | +---+---+ + +-------+ +--------+---+---+ | traZODone (DESYREL) tablet 100 | Given | 07/02/20 | 100 mg | | | | mg 100 mg, oral, AT BEDTIME, | | 19 11:13 | | | | | First dose on Sun06/27/19 at | | PM PST | | | | | 2345, Until Discontinued | | | | | | + +-------+ +--------+---+---+ +-------+ +--------+---+---+ | Given | 07/01/20 | 100 mg | | | | | 19 11:49 | | | | | | PM PST | | | | +-------+ +--------+---+---+ | Given | 06/30/20 | 100 mg | | | | | 19 10:40 | | | | | | PM PST | | | | +-------+ +--------+---+---+ +---+---+ | | | +---+---+ documented in this encounter
--- OUTSIDE RECORDS SUMMARY | ~2019-11-28 | XMS | Encounter Summary ---
Demographics + + + | Address | [address] | | | [place] [address] | + + + | Home Phone | | + + + | Preferred Language | Unknown | + + + | Marital Status | Single | + + + | Oriental Orthodox Affiliation | NON | + + + | Race | White | + + + | Ethnic Group | Not or | + + + Author + + + | Author | [facility] | + + + | Organization | [facility] | + + + | Address [...] Team Providers + +------+ + | Care Presentation Designer Name | Role | Phone | + +------+ + | Tiff Chapin | PCP | | + +------+ + Reason for Visit AUTH/CERT +--------+--------+ + [...] + + + + | 09/08/ | Anesthesia | 6A Intra Op 3181 | Donal Hyatt, | | | 2016 | Event | [address] | [address] | | | | | [facility] | [address] | | | | | Hospital Admitting | [place], [place] | | | | | Desk Located on the | [address] | | | | | 9th floor | [phone] | | | | | [place], [place] | | | | | | [address] | Ray Rubin, | | | | | | [address] | | | | | | [address] | | | | | | [place], [place] | | | | | | [address] | | | | | | [phone] | | | | | | | | +--------+ + + + + Anesthesia Record + + + + + | Procedure Name | Responsible | Anesthesia Start | Anesthesia Stop Time | | | Anesthesiologist | Time | | + + + + + | THORACIC | Donal Hyatt MD | 09/09/151947 | 09/10/15 0009 | | LAMINECTOMIES (N/A ) | | | | + + + + + +----+---+ + + | Da | T | Event | Comment | | te | i | | | | | m | | | | | e | | | +----+---+ + + | 03 | 1 | Eq Check | Anesthesia machine checked Equipment verified | | /0 | 9 | | | | 3/ | 0 | | | | 20 | 8 | | | | 16 | | | | +----+---+ + + | | 1 | Pt. Check | Prior to anesthesia start, pt. Identified, examined, chart | | | 9 | | reviewed, PARQ held, anesthetic plan made or approved by | | | 4 | | attending anesthesiologist. NPO status confirmed as appropriate | | | 2 | | for procedure Preoperative evaluation: unchanged | +----+---+ + + | | 1 | | | | | 9 | | | | | 4 | | | | | 8 | | | +----+---+ + + | | 1 | An Start | | | | 9 | | | | | 4 | | | | | 8 | | | +----+---+ + + | | 1 | An Start | | | | 9 | Data | | | | 5 | | | | | 2 | | | +----+---+ + + | | 1 | Vitals | Monitors applied Vital signs checked Patient ready for anesthesia | | | 9 | Checked | | | | 5 | | | | | 4 | | | +----+---+ + + | | 2 | Std. Airway | | | | 0 | Mgt. | | | | 0 | | | | | 0 | | | +----+---+ + + | | 2 | Art Line | | | | 0 | | | | | 1 | | | | | 3 | | | +----+---+ + + | | 2 | Ready | | | | 0 | | | | | 1 | | | | | 5 | | | +----+---+ + + | | 2 | Quick Note | Pt placed in prone position, face in appropriate place with no | | | 0 | | direct pressure on eyes, all pressure points padded and checked. | | | 2 | | | | | 8 | | | +----+---+ + + | | 2 | Quick Note | Bilateral quads and entire right leg with poor signal quality. | | | 0 | | Switching to TIVA. Will use BIS monitor to guide TIVA given BP | | | 4 | | goals. | | | 0 | | | +----+---+ + + | | 2 | Abx | | | | 0 | Administere | | | | 4 | d | | | | 3 | | | +----+---+ + + | | 2 | Timeout | | | | 0 | | | | | 4 | | | | | 6 | | | +----+---+ + + | | 2 | Incision | | | | 0 | | | | | 4 | | | | | 7 | | | +----+---+ + + | | 2 | Quick Note | Surgeon requesting MAP of 80, starting phenylephrine gtt to meet | | | 0 | | goal. | | | 5 | | | | | 5 | | | +----+---+ + + | | 2 | Surgery end | | | | 3 | | | | | 5 | | | | | 0 | | | +----+---+ + + | | 2 | An Extubate | Neuromuscular function Intact. Pharynx suctioned. Patient obeys | | | 3 | | commands. Adequate pulmonary mechanics. | | | 5 | | | | | 4 | | | +----+---+ + + | | 2 | an stop | | | | 3 | data | | | | 5 | | | | | 7 | | | +----+---+ + + | 03 | 0 | Anesthesia | | | /0 | 0 | End | | | 4/ | 0 | | | | 20 | 9 | | | | 16 | | | | +----+---+ + + +------+ | Meds | +------+ + + + | Name | Total | + + + | midazolam | 2 mg | + + + | fentaNYL | 150 mcg | + + + | lidocaine 2% | 100 mg | + + + | propofol | 180 mg | + + + | rocuronium | 30 mg | + + + | ondansetron | 4 mg | + + + | dexamethasone | 4 mg | + + + | neostigmine | 2 mg | + + + | glycopyrrolate | 0.4 mg | + + + | ceFAZolin | 2,000 mg | + + + | propofol INF | 1,203,600 mcg | + + + | SUFentanil INF | 66.73 mcg | + + + | PHENYLephrine INF (50mg/250mL) | 5,567.5 mcg | + + + | LR | 1,200 mL | + + + + + | Name | + + | Insp Iso | + + | Et Iso | + + + + | No blood administrations on file. | + + +--------+ + + + | Type | Details | Placement | Removal | +--------+ + + + | Urethr | 05/13/15; 1530; Araya; 16 Fr.; 10 | 05/13/15 1530 by | 09/15/15 1307 by | | al | mL; 09/15/15; 1307 | Donal Patel RN | Wendi Choi RN | | Cathet | | | | | er | | | | +--------+ + + + | Incisi | 05/13/15; 1634; Posterior; spine- | 05/13/15 1634 by | 09/15/15 1307 by | | on | thoracic; 09/15/15; 1307 | Donal Patel RN | Wendi Choi RN | +--------+ + + + | Periph | [facility]; Left; | 09/09/151901 by | 09/11/151658 by | | eral | Antecubital; 20 g; Positive; | | Mouna Dykes RN | | IV | 09/11/15; 1658; Site problems | | | +--------+ + + + | Urethr | 09/09/15; 2011; Sienna Saldaña RN; | 09/09/152011 by | 09/13/151826 by | | nataliia | Quiana; 16 Fr.; 09/13/151826; | Hossein Saldaña RN | Mouna Dykes RN | | Cathet | Per order, Per protocol | | | | er | | | | +--------+ + + + | Periph | MD Hyatt ; Left; Posterior; | 09/09/152114 by | 09/10/151899 by Regla | Thalia ng | Hand; 16 g; 09/10/15; 1899; Other | | SOLOMON Arellano | | IV | (Comment) (pt preferene) | | | +--------+ + + + | Arteri | MD Rubin ; Right; Radial; 20g; | 09/09/152114 by | 09/10/15 1400 by | | al | 09/10/15; 1400 | | Afsaneh Ochoa RN | | Line | | | | +--------+ + + + | Incisi | 09/09/15; 2115; Upper; back; | 09/09/152115 by | 09/15/15 1307 by | | on | 09/15/15; 1307 | Hossein Saldaña RN | Wendi Choi RN | +--------+ + + + documented in this encounter Social History + +-------+ +--------+------+ | Tobacco [...] | +--------+ + + + + | 06/04/ | Appointment | Radiology | Raegan Doss, | | | 2019 | | | [place] [address] | | | | | | [place] [facility] [place] | | | | | | [address] | | | | | | [phone] | | | | | | | | +--------+ + + + + | 12/10/ | Office | Neurological Surgery | April Beck MD | | 2019 | Visit | | [address] | | | | | | [address] | | | | | | [facility] [place] | | | | | | [address] | | | | | | [phone] | | | | | | | | +--------+ + + + + documented as of this encounter Visit Diagnoses Not on filedocumented in this encounter Administered Medications + +--------+ + +------+------+ | Medication Order | MAR | Action | Dose | Rate | Site | | | Action | Date | | | | + +--------+ + +------+------+ | ceFAZolin (ANCEF) injection | Given | 09/09/19 | 2,000 mg | | | | intravenous, INTRAPROCEDURE PRN, | | 16 8:43 | | | | | Starting Miriam 09/09/15 at 3, | | PM PST | | | | | Until [facility] 09/09/15 at 2356 | | | | | | + +--------+ + +------+------+ +---+---+ | | | +---+---+ + +-------+ +------+---+---+ | dexamethasone (DECADRON) | Given | 09/09/19 | 4 mg | | | | injection INTRAPROCEDURE PRN, | | 16 8:05 | | | | | Starting Miriam 09/09/15 at 2004, | | PM PST | | | | | Until Miriam 09/09/15 at 2356 | | | | | | + +-------+ +------+---+---+ +---+---+ | | | +---+---+ + +-------+ +---------+---+---+ | fentaNYL citrate (PF) | Given | 09/09/19 | 150 mcg | | | | (SUBLIMAZE) injection | | 16 7:58 | | | | | INTRAPROCEDURE PRN, Starting Miriam | | PM PST | | | | | 09/09/15 at 1958, Until Miriam 09/09/15 | | | | | | | at 2357, sedation | | | | | | + +-------+ +---------+---+---+ +---+---+ | | | +---+---+ + +-------+ +--------+---+---+ | glycopyrrolate (BOBBY) | Given | 09/09/19 | 0.4 mg | | | | injection INTRAPROCEDURE PRN, | | 16 11:43 | | | | | Starting Miriam 09/09/15 at 2343, | | PM PST | | | | | Until Miriam 09/09/15 at 7 | | | | | | + +-------+ +--------+---+---+ +---+---+ | | | +---+---+ + + + +---+---+---+ | lactated ringers IV | given by | 09/09/19 | | | | | INTRAPROCEDURE CONTINUOUS PRN, | | 16 11:24 | | | | | Starting Miriam 09/09/15 at 1948, | anesthes | PM PST | | | | | Until Miriam 09/09/15 at 2357 | iology | | | | | + + + +---+---+---+ + + +---+---+---+ | New Bag | 09/09/19 | | | | | | 16 10:28 | | | | | | PM PST | | | | + + +---+---+---+ | given by anesthesiology | 09/09/19 | | | | | | 16 9:10 | | | | | | PM PST | | | | + + +---+---+---+ +---+---+ | | | +---+---+ + +-------+ +--------+---+---+ | lidocaine PF (XYLOCAINE MPF) 20 | Given | 09/09/19 | 100 mg | | | | mg/mL (2 %) injection | | 16 7:58 | | | | | INTRAPROCEDURE PRN, Starting Miriam | | PM PST | | | | | 09/09/15 at 1958, Until Miriam 09/09/15 | | | | | | | at 2357 | | | | | | + +-------+ +--------+---+---+ +---+---+ | | | +---+---+ + +-------+ +------+---+---+ | midazolam (VERSED) injection | Given | 09/09/19 | 1 mg | | | | INTRAPROCEDURE PRN, Starting Miriam | | 16 7:58 | | | | | 09/09/15 at 1948, Until Miriam 09/09/15 | | PM PST | | | | | at 2357, sedation | | | | | | + +-------+ +------+---+---+ +-------+ +------+---+---+ | Given | 09/09/19 | 1 mg | | | | | 16 7:48 | | | | | | PM PST | | | | +-------+ +------+---+---+ +---+---+ | | | +---+---+ + +-------+ +------+---+---+ | neostigmine (PROSTIGMIN) | Given | 09/09/19 | 2 mg | | | | injection intravenous, | | 16 11:43 | | | | | INTRAPROCEDURE PRN, Starting Miriam | | PM PST | | | | | 09/09/15 at 2343, Until Miriam 09/09/15 | | | | | | | at 2357 | | | | | | + +-------+ +------+---+---+ +---+---+ | | | +---+---+ + +-------+ +------+---+---+ | ondansetron (ZOFRAN) injection | Given | 09/09/19 | 4 mg | | | | INTRAPROCEDURE PRN, Starting Miriam | | 16 11:43 | | | | | 09/09/15 at 2343, Until Miriam 09/09/15 | | PM PST | | | | | at 2357 | | | | | | + +-------+ +------+---+---+ +---+---+ | | | +---+---+ + + + + +-------+---+ | PHENYLEPHrine 50 mg/250 mL (0.2 | Rate/Dos | 09/10/19 | 0.2 | 5.1 | | | mg/mL) IV infusion (ADC) | e Change | 16 12:03 | mcg/kg/m | mL/hr | | | intravenous, INTRAPROCEDURE | | AM PST | in | | | | CONTINUOUS PRN, Starting Miriam | | | | | | | 09/09/15 at 2055, Until Miriam 09/09/15 | | | | | | | at 2357 | | | | | | + + + + +-------+---+ + + + +--------+---+ | Rate/Dose Change | 09/09/19 | 0.7 | 17.85 | | | | 16 11:43 | mcg/kg/m | mL/hr | | | | PM PST | in | | | + + + +--------+---+ | Rate/Dose Change | 09/09/19 | 0.6 | 15.3 | | | | 16 11:33 | mcg/kg/m | mL/hr | | | | PM PST | in | | | + + + +--------+---+ +---+---+ | | | +---+---+ + + + + +-------+---+ | propofol (DIPRIVAN) injection | Rate/Dos | 09/09/19 | 40 | 20.4 | | | INTRAPROCEDURE CONTINUOUS PRN, | e Change | 16 11:42 | mcg/kg/m | mL/hr | | | Starting Miriam 09/09/15 at 2018, | | PM PST | in | | | | Until Miriam 09/09/15 at 2357 | | | | | | + + + + +-------+---+ + + + +-------+---+ | Rate/Dose Change | 09/09/19 | 30 | 15.3 | | | | 16 11:40 | mcg/kg/m | mL/hr | | | | PM PST | in | | | + + + +-------+---+ | Rate/Dose Change | 09/09/19 | 20 | 10.2 | | | | 16 11:36 | mcg/kg/m | mL/hr | | | | PM PST | in | | | + + + +-------+---+ +---+---+ | | | +---+---+ + +-------+ +-------+---+---+ | propofol INTRAPROCEDURE PRN, | Given | 09/09/19 | 30 mg | | | | Starting Miriam 09/09/15 at 2047, | | 16 8:47 | | | | | Until Miriam 09/09/15 at 2357 | | PM PST | | | | + +-------+ +-------+---+---+ +-------+ +--------+---+---+ | Given | 09/09/19 | 30 mg | | | | | 16 8:27 | | | | | | PM PST | | | | +-------+ +--------+---+---+ | Given | 09/09/19 | 120 mg | | | | | 16 7:58 | | | | | | PM PST | | | | +-------+ +--------+---+---+ +---+---+ | | | +---+---+ + +-------+ +-------+---+---+ | rocuronium (ZEMURON) injection | Given | 09/09/19 | 30 mg | | | | INTRAPROCEDURE PRN, Starting Miriam | | 16 7:58 | | | | | 09/09/15 at 8, Until Miriam 09/09/15 | | PM PST | | | | | at 2357, Neuromuscular block | | | | | | + +-------+ +-------+---+---+ +---+---+ | | | +---+---+ + +---------+ + +---+---+ | SUFentanil INF INTRAPROCEDURE | New Bag | 09/09/19 | 0.3 | | | | CONTINUOUS PRN, Starting Miriam | | 16 8:46 | mcg/kg/h | | | | 09/09/15 at 6, Until Miriam 09/09/15 | | PM PST | r | | | | at 2357 | | | | | | + +---------+ + +---+---+ +---+---+ | | | +---+---+ documented in this encounter"
--- OUTSIDE RECORDS SUMMARY | ~2019-11-28 | XMS | Encounter Summary ---
Demographics + + + | Address | [address] | | | [place] [address] | + + + | Home Phone | | + + + | Preferred Language | Unknown | + + + | Marital Status | Single | + + + | Confucianist Affiliation | NON | + + + | Race | White | + + + | Ethnic Group | Not or | + + + Author + + + | Author | [facility] | + + + | Organization | [facility] | + + + | Address [...] Team Providers + +------+ + | Care Wool Hat Hydraulicker Name | Role | Phone | + +------+ + | Hannah Sosa | PCP | | + +------+ + [...] | +--------+ + + + + | 07/08/ | Anesthesia | 6A Intra Op 3181 | Hermann Lanza, | | | 2018 | Event | [address] | [address] | | | | | [facility] | [address] | | | | | Hospital Admitting | [place], [place] | | | | | Desk Located on the | [address] | | | | | 9th floor | [phone] | | | | | [place], [place] | | | | | | [address] | | | +--------+ + + + + Anesthesia Record + + + + + | Procedure Name | Responsible | Anesthesia Start | Anesthesia Stop Time | | | Anesthesiologist | Time | | + + + + + | THORACIC | Hermann Lanza MD | 07/08/18 0844 | 07/08/18 1322 | | LAMINECTOMIES FOR | | | | | TUMOR RESECTION (N/A | | | | | Back) | | | | + + + + + +----+---+ + + | Da | T | Event | Comment | | te | i | | | | | m | | | | | e | | | +----+---+ + + | 12 | 0 | Eq Check | Anesthesia machine checked Equipment verified | | /3 | 7 | | | | 1/ | 3 | | | | 20 | 1 | | | | 18 | | | | +----+---+ + + | | 0 | Pt. Check | Prior to anesthesia start, pt. Identified, examined, chart | | | 8 | | reviewed, PARQ held, anesthetic plan made or approved by | | | 2 | | attending anesthesiologist. NPO status confirmed as appropriate | | | 8 | | for procedure Preoperative evaluation: unchanged | +----+---+ + + | | 0 | Eq Check | Anesthesia machine checked Equipment verified | | | 8 | | | | | 3 | | | | | 0 | | | +----+---+ + + | | 0 | Preprocedur | Pt ID confirmed, informed consent obtained, insertion site | | | 8 | e Checklist | marked, equipment available | | | 3 | | | | | 7 | | | +----+---+ + + | | 0 | An Start | An anxiolytic was given. Patient remained easily responsive to | | | 8 | | verbal stimuli. Transported to [place] without incident. | | | 4 | | | | | 4 | | | +----+---+ + + | | 0 | | | | | 8 | | | | | 4 | | | | | 6 | | | +----+---+ + + | | 0 | An Start | The patient arrived at the operating room. | | | 8 | Data | | | | 4 | | | | | 9 | | | +----+---+ + + | | 0 | Vitals | Monitors applied Vital signs checked Patient ready for anesthesia | | | 8 | Checked | | | | 5 | | | | | 4 | | | +----+---+ + + | | 0 | ETT | Easy atraumatic intubation. VC visualized, Grade I airway. ETCO2 | | | 8 | | +, BBS equal. Lips and teeth intact. Intubated without a stylet. | | | 5 | | Soft (gauze) bite block applied after tube was secured. | | | 9 | | | +----+---+ + + | | 0 | Ready | Eyes lubricated with minute amount of sterile, preservative free | | | 9 | | eye ointment bilaterally. The eyes were gently covered with guaze | | | 0 | | to protect eye-lashes upon removal and a sterile Tegaderm film | | | 3 | | was applied bilaterally. | +----+---+ + + | | 0 | Note | Patient placed in the prone position by surgical and anesthesia | | | 9 | | teams. No complications during positioning. Head placed in foam | | | 1 | | head-rest with mirror (Prone View) with visualization of face. | | | 7 | | Neck in neutral midline position maintained during flip. Lower | | | | | extremities placed in neutral position and well padded. Upper | | | | | extremities padded and placed in neutral position and in less | | | | | than 90 degrees. All pressure points including: breasts, | | | | | genitals, and bony prominences checked and padded. Eyes, ears, | | | | | and nose are clear without any pressure and checked frequently | | | | | throughout he case. | +----+---+ + + | | 0 | Abx | | | | 9 | Administere | | | | 4 | d | | | | 5 | | | +----+---+ + + | | 0 | Timeout | At 0957, prior to the beginning of the procedure, the team paused | | | 9 | | to verify the patient | | | 5 | | | | | 7 | | s identity, the procedure to be performed (in accordance with the | | | | | consent,) and the correct side/site. The patient was positioned | | | | | appropriately. All relevant images and results were properly | | | | | labeled and displayed. We addressed antibiotic prophylaxis and | | | | | fluids for irrigation as applicable to this patient. Any safety | | | | | precautions were addressed. | +----+---+ + + | | 0 | Incision | Forced air warmer connected to campground cleaning attendant recommended warming | | | 9 | | blanket on the upper and lower body and turned on to 43 degrees | | | 5 | | celsius. The face was protected from any bulging of the inflated | | | 9 | | warming blanket. Temperature probe placed in the mouth. | +----+---+ + + | | 1 | Quick Note | Arterial line is not indicated for this patient. Used NBP cuff on | | | 0 | | different limbs alternating between cuffs every hour to reduce | | | 0 | | potential for nerve injury. | | | 0 | | | +----+---+ + + | | 1 | Surgery end | | | | 2 | | | | | 5 | | | | | 7 | | | +----+---+ + + | | 1 | An Extubate | Neuromuscular function Intact. Pharynx suctioned. Patient obeys | | | 3 | | commands. Adequate pulmonary mechanics. | | | 0 | | | | | 4 | | | +----+---+ + + | | 1 | O2 by FM | | | | 3 | | | | | 0 | | | | | 4 | | | +----+---+ + + | | 1 | an stop | | | | 3 | data | | | | 0 | | | | | 7 | | | +----+---+ + + | | 1 | PACU Rpt | | | | 3 | Given | | | | 2 | | | | | 1 | | | +----+---+ + + | | 1 | Anesthesia | Check List: -Opioids medications given: Fentanyl 250 mcg given. | | | 3 | End | Fentanyl 0 mcg wasted. Fentanyl 250 mcg returned intact | | | 2 | | Midazolam 0 mg given. Midazolam 0 mg wasted. Midazolam 2 mg | | | 2 | | returned intact Ketamine 150 mg wasted. -Antibiotic | | | | | medications given: Ancef 2 g prior to incision time. | | | | | -Non-Depolarizing Muscle Relaxation not given -Active warming | | | | | via forced warmer or warm blankets was used during the | | | | | intraoperative period and was successful in attaining | | | | | normothermia. Confirmations: -Antibiotics event charted: Yes | | | | | -Antibiotic medication charted:Yes -Narcotics totalled & | | | | | accurate:Yes -Anesthesia Ready event charted:Yes -Procedure notes | | | | | done: Yes -Orders placed: Yes -Sign into case: Yes | +----+---+ + + | | 1 | ICU Handoff | Procedure Anesthetic Brief History Relevant | | | 3 | Call | Meds/Labs/Echo/Imaging Difficult airway? Intraoperative Course: | | | 2 | | Lines/drains EBL Significant Events Meds: Infusions, | | | 2 | | Antibiotics/Redosing, Paralytics (last dose and time), Analgesic | | | | | Plan Central line- will review image and place order in PACU | | | | | Surgeon concerns | +----+---+ + + +------+ | Meds | +------+ + + + | Name | Total | + + + | fentaNYL | 250 mcg | + + + | lidocaine 0.4 % (4 mg/mL) INF | 509.74 mg | + + + | dexmedetomidine (PRECEDEX) 400 | 220.45 mcg | | mcg in NaCl 0.9 % (NS) 100 mL (4 | | | mcg/mL) IV infusion | | + + + | propofol (DIPRIVAN) 200 mg | 200 mg | + + + | propofol (DIPRIVAN) 200 mg | 2,998,860 mcg | + + + | lidocaine 2% | 100 mg | + + + | succinylcholine | 60 mg | + + + | rocuronium | 10 mg | + + + | ceFAZolin | 2,000 mg | + + + | dexamethasone | 10 mg | + + + | metoclopramide | 10 mg | + + + | ondansetron | 4 mg | + + + | ketamine (KETALAR) INF 200 mg | 64,346.4 mcg | + + + | LR | 2,600 mL | + + + + + | Name | + + | O2 FR Avance (Total Liters) | + + | Air FR Avance (l/min) | + + | Insp Sevo | + + | Et Sevo | + + | EtN2O % | + + | Insp N2O % | + + + + | No blood administrations on file. | + + +--------+ + + + | Type | Details | Placement | Removal | +--------+ + + + | Incisi | 01/13/17; 1521; Michelle Luis MD; | 01/13/17 1521 by | | | on | Posterior; spine- thoracic | Ying Gudino RN | | +--------+ + + + | Urethr | 01/17/17; 0030; Mabel Hinds | 01/17/17 0030 by | | | al | | Sarah Sifuentes RN | | | Cathet | | | | | er | | | | +--------+ + + + | Urethr | 07/08/18; 0900; Trinidad Garcia RN ; | 07/08/18 0900 by | | | al | Quiana; 16 Fr.; 10 mL | Velma Garcia RN | | | Viral | | | | | er | | | | +--------+ + + + | Incisi | 07/08/18; 1011; MD Toby ; | 07/08/18 1011 by | | | on | Posterior; spine- thoracic | Velma Garcia RN | | +--------+ + + + | Periph | 07/06/18; Other hospital; Right; | 07/06/18 0000 by | 07/09/18 2135 by | | eral | Antecubital; 20 g; 07/09/18; | Sasha Che RN | Deann Michael RN | | IV | 2135; Per patient/family request | | | | | (painful) | | | +--------+ + + + | ETT | 07/08/18; 0859 (created via | 07/08/18 0859 by | 07/08/18 1304 by | | | procedure documentation); | Jorge Kumar, | Jorge Kumar, | | | Endotracheal Tube; 7; Oral; | BOW MAKER GIFT WRAPPING | BOW MAKER GIFT WRAPPING | | | Cuffed; 07/08/18; 1304 | | | +--------+ + + + | Periph | 07/08/18; 0905; Jorge Kumar, | 07/08/18 0905 by | 07/11/18 1144 by | | eral | BOW MAKER GIFT WRAPPING; Right; Dorsal; Hand; 16 g; | Jorge Kumar, | Carmen Saul RN | | IV | No; No; Positive; 07/11/18; 1144 | BOW MAKER GIFT WRAPPING | | +--------+ + + + | Periph | 07/08/18; 905; Hermann Lanza, | 07/08/18905 by | 07/09/18 0600 by | | berenice | MD; Left; Hand; 18 g; No; No; | Jorge Stacy, | Brittnee Oscar RN | | IV | Positive; 07/09/18; 0600; Per | BOW MAKER GIFT WRAPPING | | | | patient/family request | | | +--------+ + + + documented in [...] 2019 | | | [facility] [address] | | | | | | [place], [place] | | | | | | [address] | | | | | | [phone] | | | | | | | | +--------+ + + + + | 12/10/ | Office | Neurological Surgery | April Beck MD | | | 2019 | Visit | | [address] | | | | | | [address] | | | | | | [place], [place] | | | | | | [address] | | | | | | [phone] | | | | | | | | +--------+ + + + + documented as of this encounter Procedures + +--------+ + + + | Procedure Name | Priori | Date/Time | Associated Diagnosis | Comments | | | ty | | | | + +--------+ + + + | ORLANDO ETT | Routin | 07/08/2018 | | Results for this | | | e | 8:59 AM | | procedure are in the | | | | PST | | results section. | + +--------+ + + + documented in this encounter Results ORLANDO ETT (07/08/2018 8:59 AM PST) + + + | Narrative | Performed At | + + + | Jorge Kumar CRNA 07/08/2018 10:20 AM Procedure Reason | | | for Intubation: For surgical procedure, Location Performed: [place] , | | | Mask Ventilation Grade 1 - Ventilated by mask Intubation Blade | | | type: Ángel , Blade size: 3, Atraumatic laryngoscopy: Atraumatic | | | Laryngoscopy, Laryngoscopic view: Grade I, Number of Attempts: 1, | | | Positive for EtCO2: Yes, Breath sounds: Bilateral and equal | | | ETT ETT Size: 7 ETT secured with: adhesive tape Depth at Teeth: | | | 21 Cm Airway leak: No Narrative Attending: FRANCIS | | | HERMANN Easy atraumatic intubation. VC visualized, Grade I | | | airway. ETCO2 +, BBS equal. Lips and teeth intact. Intubated without | | | a stylet. Soft (gauze) bite block applied after tube was secured. | | | Performed by JORGE YEE | | + + + documented in this encounter Visit Diagnoses Not on filedocumented in this encounter Administered Medications + +--------+ + +------+------+ | Medication Order | MAR | Action | Dose | Rate | Site | | | Action | Date | | | | + +--------+ + +------+------+ | ceFAZolin (ANCEF) injection | Given | 07/08/20 | 2,000 mg | | | | intravenous, INTRAPROCEDURE PRN, | | 18 9:45 | | | | | Starting 07/08/18 at 0945, | | AM PST | | | | | Until 07/08/18 at 1304 | | | | | | + +--------+ + +------+------+ +---+---+ | | | +---+---+ + +-------+ +-------+---+---+ | dexamethasone (DECADRON) | Given | 07/08/20 | 10 mg | | | | injection intravenous, | | 18 9:41 | | | | | INTRAPROCEDURE PRN, Starting Mon | | AM PST | | | | | 07/08/18 at 0941, Until Mon | | | | | | | 07/08/18 at 1304 | | | | | | + +-------+ +-------+---+---+ +---+---+ | | | +---+---+ + + + + +--------+---+ | dexmedetomidine (PRECEDEX) 400 | Rate/Dos | 07/08/20 | 1 | 16.55 | | | mcg in NaCl 0.9 % (NS) 100 mL (4 | e Change | 18 9:55 | mcg/kg/h | mL/hr | | | mcg/mL) IV infusion intravenous, | | AM PST | r | | | | INTRAPROCEDURE CONTINUOUS PRN, | | | | | | | Starting Sun07/08/18 at 0931, | | | | | | | Until Sun07/08/18 at 1304 | | | | | | + + + + +--------+---+ +---------+ + +--------+---+ | New Bag | 07/08/20 | 0.7 | 11.59 | | | | 18 9:31 | mcg/kg/h | mL/hr | | | | AM PST | r | | | +---------+ + +--------+---+ +---+---+ | | | +---+---+ + +-------+ +--------+---+---+ | fentaNYL (SUBLIMAZE) injection | Given | 07/08/20 | 50 mcg | | | | intravenous, INTRAPROCEDURE PRN, | | 18 12:37 | | | | | Starting Sun07/08/18 at 1009, | | PM PST | | | | | Until Sun07/08/18 at 1304 | | | | | | + +-------+ +--------+---+---+ +-------+ +---------+---+---+ | Given | 07/08/20 | 50 mcg | | | | | 18 11:34 | | | | | | AM PST | | | | +-------+ +---------+---+---+ | Given | 07/08/20 | 150 mcg | | | | | 18 10:09 | | | | | | AM PST | | | | +-------+ +---------+---+---+ +---+---+ | | | +---+---+ + + + + +---+---+ | ketamine (KETALAR) INF 200 mg | Rate/Dos | 07/08/20 | 8 | | | | INTRAPROCEDURE CONTINUOUS PRN, | e Change | 18 11:50 | mcg/kg/m | | | | Starting Sun07/08/18 at 1015, | | AM PST | in | | | | Until Sun07/08/18 at 1304 | | | | | | + + + + +---+---+ +---------+ + +---+---+ | New Bag | 07/08/20 | 4 | | | | | 18 10:15 | mcg/kg/m | | | | | AM PST | in | | | +---------+ + +---+---+ +---+---+ | | | +---+---+ + + + +---+---+---+ | lactated Ringers IV | given by | 07/08/20 | | | | | intravenous, INTRAPROCEDURE | | 18 10:50 | | | | | CONTINUOUS PRN, Starting Mon | anesthes | AM PST | | | | | 07/08/18 at 0828, Until Mon | iology | | | | | | 07/08/18 at 1304 | | | | | | + + + +---+---+---+ +---------+ +---+---+---+ | New Bag | 07/08/20 | | | | | | 18 8:28 | | | | | | AM PST | | | | +---------+ +---+---+---+ +---+---+ | | | +---+---+ + + + + +-------+---+ | lidocaine (XYLOCAINE) 2000 | Restarte | 07/08/20 | 2 | 33.1 | | | mg/500 mL (4 mg/mL) IV infusion | d | 18 12:36 | mg/kg/hr | mL/hr | | | (RTU) INTRAPROCEDURE CONTINUOUS | | PM PST | | | | | PRN, Starting 07/08/18 at | | | | | | | 0900, Until 07/08/18 at 1304 | | | | | | + + + + +-------+---+ +---------+ + +-------+---+ | New Bag | 07/08/20 | 2 | 33.1 | | | | 18 9:00 | mg/kg/hr | mL/hr | | | | AM PST | | | | +---------+ + +-------+---+ +---+---+ | | | +---+---+ + +-------+ +--------+---+---+ | lidocaine PF (XYLOCAINE MPF) 20 | Given | 07/08/20 | 100 mg | | | | mg/mL (2 %) injection | | 18 8:56 | | | | | INTRAPROCEDURE PRN, Starting Mon | | AM PST | | | | | 07/08/18 at 0856, Until Mon | | | | | | | 07/08/18 at 1304 | | | | | | + +-------+ +--------+---+---+ +---+---+ | | | +---+---+ + +-------+ +-------+---+---+ | metoclopramide HCl (REGLAN) | Given | 07/08/20 | 10 mg | | | | injection intravenous, | | 18 9:41 | | | | | INTRAPROCEDURE PRN, Starting Mon | | AM PST | | | | | 07/08/18 at 0941, Until Mon | | | | | | | 07/08/18 at 1304 | | | | | | + +-------+ +-------+---+---+ +---+---+ | | | +---+---+ + +-------+ +------+---+---+ | ondansetron (ZOFRAN) injection | Given | 07/08/20 | 4 mg | | | | INTRAPROCEDURE PRN, Starting Mon | | 18 9:41 | | | | | 07/08/18 at 0941, Until Mon | | AM PST | | | | | 07/08/18 at 1304 | | | | | | + +-------+ +------+---+---+ +---+---+ | | | +---+---+ + + + + +---+---+ | propofol (DIPRIVAN) 200 mg | Restarte | 07/08/20 | 200 | | | | INTRAPROCEDURE CONTINUOUS PRN, | d | 18 12:36 | mcg/kg/m | | | | Starting Sun07/08/18 at 0900, | | PM PST | in | | | | Until Sun07/08/18 at 1304 | | | | | | + + + + +---+---+ + + + +---+---+ | Rate/Dose Change | 07/08/20 | 200 | | | | | 18 10:13 | mcg/kg/m | | | | | AM PST | in | | | + + + +---+---+ | Rate/Dose Change | 07/08/20 | 150 | | | | | 18 9:55 | mcg/kg/m | | | | | AM PST | in | | | + + + +---+---+ +---+---+ | | | +---+---+ + +-------+ +--------+---+---+ | propofol (DIPRIVAN) 200 mg | Bolus | 07/08/20 | 150 mg | | | | intravenous, INTRAPROCEDURE | | 18 8:58 | | | | | CONTINUOUS PRN, Starting Mon | | AM PST | | | | | 07/08/18 at 0857, Until Mon | | | | | | | 07/08/18 at 1304 | | | | | | + +-------+ +--------+---+---+ +---------+ +-------+---+---+ | New Bag | 07/08/20 | 50 mg | | | | | 18 8:57 | | | | | | AM PST | | | | +---------+ +-------+---+---+ +---+---+ | | | +---+---+ + +-------+ +-------+---+---+ | rocuronium (ZEMURON) injection | Given | 07/08/20 | 10 mg | | | | intravenous, INTRAPROCEDURE PRN, | | 18 8:58 | | | | | Starting Sun07/08/18 at 0858, | | AM PST | | | | | Until Sun07/08/18 at 1304 | | | | | | + +-------+ +-------+---+---+ +---+---+ | | | +---+---+ + +-------+ +-------+---+---+ | succinylcholine (ANECTINE) | Given | 07/08/20 | 60 mg | | | | injection INTRAPROCEDURE PRN, | | 18 8:58 | | | | | Starting Sun07/08/18 at 0858, | | AM PST | | | | | Until Sun07/08/18 at 1304 | | | | | | + +-------+ +-------+---+---+ +---+---+ | | | +---+---+ documented in this encounter"
--- OUTSIDE RECORDS SUMMARY | ~2019-11-28 | XMS | Encounter Summary ---
Demographics + + + | Address | [address] | | | [place] [address] | + + + | Home Phone | | + + + | Preferred Language | Unknown | + + + | Marital Status | Single | + + + | Adventist Affiliation | NON | + + + | Race | White | + + + | Ethnic Group | Not or | + + + Author + + + | Author | [facility] | + + + | Organization | [facility] | + + + | [...] Team Providers + +------+ + | Care Case Specialist Name | Role | Phone | + +------+ + | Clare Franks MD | PCP | | + +------+ + Reason for Visit + + + | Reason | Comments | + + + | Care Coordination | | + + + Encounter Details +--------+ + + + + | Date | Type | Department | Care Team | Description | +--------+ + + + + | 02/08/ | Documentati | SOCIAL WORK | Cecily Najera, ALEM | Care Coordination | | 2017 | on | AM[facility]ULATORY [address] | | | | | [address] | [place], | | | | | Mailcode: [place] | [place] [address] | | | | | [place], [place] | | | | | | [address] | | | | | | [phone] | | | +--------+ + + + + Social History + +-------+ +--------+------+ | Tobacco Use | Types | Packs/Day | Years | Date | | | | | Used | | + +-------+ +--------+------+ | Never Smoker | | | | | + +-------+ +--------+------+ + + | Comments: Smokes marijuana | [...] Radiology | Raegan Doss, | | | 2020 | | | PA-C [address] | | | | | | [place] | | | | | | [address] | | | | | | [phone] | | | | | | | | +--------+ + + + + | 12/10/ | Office | Neurological Surgery | April Beck MD | | | 2019 | Visit | | [address] | | | | | | [address] | | | | | | [place] | | | | | | [address] | | | | | | [phone] | | | | | | | | +--------+ + + + + documented as of this encounter Visit Diagnoses Not on filedocumented in this encounter"
--- OUTSIDE RECORDS SUMMARY | ~2019-11-28 | XMS | Encounter Summary ---
Demographics + + + | Address | [address] | | | [place] [address] | + + + | Home Phone [...] Author + + + | Author | [facility] | + + + | Organization | [facility] | + + + | Address [...] Team Providers + +------+ + | Care Professor Of Biochemistry Name | Role | Phone | + +------+ + | Clare Franks MD | PCP | | + +------+ + Reason for Visit + + + | Reason | Comments | + + + | Update from Patient | | + + + Encounter Details +--------+ + + + + | Date | Type | Department | Care Team | Description | +--------+ + + + + | 03/07/ | Telephone | Neurosurgery at | Raegan Doss, | Update from Patient | | 2016 | | [facility] [address] | PA-C [address] | | | | | [place] Mailcode: [address] | [address] [place], [place] | | | | | [facility] | [address] | | | | | and [place], | [phone] | | | | | [facility] | | | | | | [place], [place] | | | | | | [address] | | | | | | [phone] | | | +--------+ + + + [...] | | | | | | [place] [facility] [place] | | | | | | [address] | | | | | | [phone] | | | | | | | | +--------+ + + + + | 12/10/ | Office | Neurological Surgery | April Beck MD | | | 2019 | Visit | | [address] | | | | | | [address] | | | | | | [place] | | | | | | [address] | | | | | | [phone] | | | | | | | | +--------+ + + + + documented as of this encounter Visit Diagnoses Not on filedocumented in this encounter"
--- OUTSIDE RECORDS SUMMARY | ~2019-11-28 | XMS | Encounter Summary ---
Demographics + + + | Address | [address] | | | [place] [address] | + + + | Home Phone | | + + + | Preferred Language | Unknown | + + + | Marital Status | Single | + + + | Zoroastrianism Affiliation | NON | + + + | Race | White | + + + | Ethnic Group | Not or | + + + Author + + + | Author | [facility] | + + + | Organization | [facility] | + + + | Address [...] Team Providers + +------+ + | Care Dressmaker Garment Fitter Name | Role | Phone | + +------+ + | Tiff Chapin | PCP | | + +------+ + Encounter Details +--------+ + + + + | Date | Type | Department | Care Team | Description | +--------+ + + + + | 05/11/ | Document-Sc | Health Information | Unknown . | | | 2014 | anned | Services [id number] | | | | | [address] | | | | | | Mailcode: [id number] | | | | | | [facility] | | | | | | [place], [place] | | | | | | [address] | | | | | | [phone] | | | +--------+ + + + [...] | | | | | | [place] [facility] [place] | | | | | | [address] | | | | | | [phone] | | | | | | | | +--------+ + + + + | 12/10/ | Office | Neurological Surgery | April Beck MD | | | 2019 | Visit | | [address] | | | | | | [address] | | | | | | [facility] [place] | | | | | | [address] | | | | | | [phone] | | | | | | | | +--------+ + + + + documented as of this encounter Procedures + +--------+ + + + | Procedure Name | Priori | Date/Time | Associated Diagnosis | Comments | | | ty | | | | + +--------+ + + + | RADIOLOGY | | 05/11/2015 | | Results for this | | | | 12:00 AM | | procedure are in the | | | | PST | | results section. | + +--------+ + + + documented in this encounter Results RADIOLOGY (05/11/2015 12:00 AM PST) + + + | Narrative | Performed At | + + + | | | + + + documented in this encounter Visit Diagnoses Not on filedocumented in this encounter"
--- OUTSIDE RECORDS SUMMARY | ~2019-11-28 | XMS | Encounter Summary ---
Demographics + + + | Address | [address] | | | [place] [address] | + + + | Home Phone | | + + + | Preferred Language | Unknown | + + + | Marital Status | Single | + + + | Congregational Affiliation | NON | + + + | Race | White | + + + | Ethnic Group | Not or | + + + Author + + + | Author | [facility] | + + + | Organization | [facility] | + + + | Address [...] Team Providers + +------+ + | Care Diversified Crops Ii Farmworker Name | Role | Phone | + +------+ + | Damir Sy MD | PCP | | + +------+ + Encounter Details +--------+ + + + + | Date | Type | Department | Care Team | Description | +--------+ + + + + | 02/14/ | Procedure | Radiology/Imaging | | | | 2017 | Pass | Lab at [id number] | | | | | | [address] Mailcode: | | | | | | [id number] | | | | | | [facility], | | | | | | Building [facility] | | | | | | Floor [place], [place] | | | | | | [address] | | | | | | [phone] | | | +--------+ + + + [...] | | | | | | [facility] [facility] [place] | | | | | | [address] | | | | | | [phone] | | | | | | | | +--------+ + + + + | 12/10/ | Office | Neurological Surgery | April Beck MD | | | 2020 | Visit | | [address] | | | | | | [address] | | | | | | [place], [place] | | | | | | [address] | | | | | | [phone] | | | | | | | | +--------+ + + + + documented as of this encounter Visit Diagnoses Not on filedocumented in this encounter"
--- OUTSIDE RECORDS SUMMARY | ~2019-11-28 | XMS | Encounter Summary ---
Demographics + + + | Address | [address] | | | [place] [address] | + + + | Home Phone | | + + + | Preferred Language | Unknown | + + + | Marital Status | Single | + + + | Buddhist Affiliation | NON | + + + | Race | White | + + + | Ethnic Group | Not or | + + + Author + + + | Author | [facility] | + + + | Organization | [facility] | + + + | Address [...] Team Providers + +------+ + | Care Wildlife Refuge Specialist Name | Role | Phone | + +------+ + | Clare Franks MD | PCP | | + +------+ + Encounter Details +--------+ + + + + | Date | Type | Department | Care Team | Description | +--------+ + + + + | 10/03/ | Documentati | [facility] | Raegan Doss, | | | 2017 | on | [facility] [address] | PA-C [address] | | | | | [address] Mailcode: | [place], [place] | | | | | [facility] | [address] | | | | | and [place], | [phone] | | | | | [place] [address] | | | | | | [place], [place] | | | | | | [address] | | | | | | [phone] | | | +--------+ + + + [...] | | | | | | [place], [place] | | | | | | [address] | | | | | | [phone] | | | | | | | | +--------+ + + + + | 12/10/ | Office | Neurological Surgery | April Beck MD | | | 2019 | Visit | | [address] [facility] [address] | | | | | | [address] | | | | | | [place], [place] | | | | | | [address] | | | | | | [phone] | | | | | | | | +--------+ + + + + documented as of this encounter Visit Diagnoses Not on filedocumented in this encounter"
--- OUTSIDE RECORDS SUMMARY | ~2019-11-28 | XMS | Encounter Summary ---
Demographics + + + | Address | [address] | | | [place] [address] | + + + | Home Phone | | + + + | Preferred Language | Unknown | + + + | Marital Status | Single | + + + | Mandaen Affiliation | NON | + + + | Race | White | + + + | Ethnic Group | Not or | + + + Author + + + | Author | [facility] | + + + | Organization | [facility] | + + + | Address | [...] Team Providers + +------+ + | Care Commercial Drafter Name | Role | Phone | + +------+ + | Damir Sy MD | PCP | | + +------+ + Encounter Details +--------+ + + + + | Date | Type | Department | Care Team | Description | +--------+ + + + + | 07/08/ | Procedure | Diagnostic Imaging | | | | 2017 | Pass | Services at [facility] | | | | | | [address] | | | | | | [place] | | | | | | [facility] | | | | | | [place], [place] | | | | | | [address] | | | | | | [phone] | | | +--------+ + + + [...] | | | | | | [place], [place] | | | | | | [address] | | | | | | [phone] | | | | | | | | +--------+ + + + + | 12/10/ | Office | Neurological Surgery | April Beck MD | | | 2019 | Visit | | [address] | | | | | | [address] | | | | | | [place], [place] | | | | | | [address] | | | | | | [phone] | | | | | | | | +--------+ + + + + documented as of this encounter Visit Diagnoses Not on filedocumented in this encounter"
--- OUTSIDE RECORDS SUMMARY | ~2019-11-28 | XMS | Encounter Summary ---
Demographics + + + | Address | [address] | | | [place] [address] | + + + | Home Phone | | + + + | Preferred Language | Unknown | + + + | Marital Status | Single | + + + | Anabaptism Affiliation | NON | + + + | Race | White | + + + | Ethnic Group | Not or | + + + Author + + + | Author | [facility] | + + + | Organization | [facility] | + + + | Address | [...] Team Providers + +------+ + | Care Grades 9 Thru 12 Visiting Teacher Name | Role | Phone | [...] | Event | [address] | [address] | | | | | [facility] | [address] | | | | | Hospital Admitting | [place], [place] | | | | | Desk Located on the | [address] | | | | | 9th floor | [phone] | | | | | [place], [place] | | | | | | [address] | | | +--------+ + + + [...] Incision | Forced air warmer connected to utility appraiser recommended warming | | | 9 | [...] | | Endotracheal Tube; 7; Oral; | CUSTODIAL SERVICES MANAGER | CUSTODIAL SERVICES MANAGER | | | Cuffed; 07/08/18; 1304 | | | +--------+ + + + | Periph | 07/08/18; 0905; Jorge Kumar, | 07/08/18 0905 by | 07/11/18 1144 by | | eral | CUSTODIAL SERVICES MANAGER; Right; Dorsal; Hand; 16 g; | Jorge Kumar, | Carmen Saul RN | | IV | No; No; Positive; 07/11/18; 1144 | CUSTODIAL SERVICES MANAGER | | +--------+ + + + | Periph | 07/08/18; 905; Hermann Lanza, | 07/08/18905 by | 07/09/18 0600 by | | berenice | MD; Left; Hand; 18 g; No; No; | Jorge Stacy, | Brittnee Oscar RN | | IV | Positive; 07/09/18; 0600; Per | CUSTODIAL SERVICES MANAGER | | | | patient/family request | [...] | | | | | | [place], [place] | | | | | | [address] | | | | | | [phone] | | | | | | | | +--------+ + + + + | 12/10/ | Office | Neurological Surgery | April Beck MD | | | 2019 | Visit | | [address] | | | | | | [address] | | | | | | [place], [place] | | | | | | [address] | | | | | | [phone] | | | | | | | [...]
--- OUTSIDE RECORDS SUMMARY | ~2019-11-28 | XMS | Encounter Summary ---
Demographics + + + | Address | [address] | | | [place] [address] | + + + | Home Phone | | + + + | Preferred Language | Unknown | + + + | Marital Status | Single | + + + | Anglican Affiliation | NON | + + + | Race | White | + + + | Ethnic Group | Not or | + + + Author + + + | Author | [facility] | + + + | Organization | [facility] | + + + | [...] Team Providers + +------+ + | Care Incident Response Engineer Name | Role | Phone | + +------+ + | Damir Sy MD | PCP | | + +------+ + Encounter Details +--------+ + + + + | Date | Type | Department | Care Team | Description | +--------+ + + + + | 07/06/ | Procedure | Diagnostic Imaging | | | | 2017 | Pass | Services at [facility] | | | | | | [address] | | | | | | [place] | | | | | | [facility] | | | | | | [place], [place] | | | | | | [address] | | | | | | [phone] | | | +--------+ + + + [...] | | | | | | [place], [place] | | | | | | [address] | | | | | | [phone] | | | | | | | | +--------+ + + + + | 12/10/ | Office | Neurological Surgery | April Beck MD | | | 2019 | Visit | | [address] | | | | | | [address] | | | | | | [place], [place] | | | | | | [address] | | | | | | [phone] | | | | | | | | +--------+ + + + + documented as of this encounter Visit Diagnoses Not on filedocumented in this encounter"
--- OUTSIDE RECORDS SUMMARY | ~2019-11-28 | XMS | Encounter Summary ---
Demographics + + + | Address | [address] | | | [place] [address] | + + + | Home Phone | | + + + | Preferred Language | Unknown | + + + | Marital Status | Single | + + + | Spiritism Affiliation | NON | + + + | Race | White | + + + | Ethnic Group | Not or | + + + Author + + + | Author | [facility] | + + + | Organization | [facility] | + + + | [...] Team Providers + +------+ + | Care Sap Business Intelligence Consultant Name | Role | Phone | + +------+ + | Damir Sy MD | PCP | | + +------+ + Encounter Details +--------+ + + + + | Date | Type | Department | Care Team | Description | +--------+ + + + + | 11/26/ | MyChart | Diagnostic Imaging | | MRI Screening Form | | 2020 | Encounter | Services [address] | | | | | | [address] | | | | | | [place], [place] | | | | | | [address] | | | +--------+ + + + [...] | | | | | | [place], [place] | | | | | | [address] | | | | | | [phone] | | | | | | | | +--------+ + + + + | 12/10/ | Office | Neurological Surgery | April Beck MD | | | 2020 | Visit | | [address] [facility] | | | | | | [address] | | | | | | [place] | | | | | | [address] | | | | | | [phone] | | | | | | | | +--------+ + + + + documented as of this encounter Visit Diagnoses Not on filedocumented in this encounter"
--- OUTSIDE RECORDS SUMMARY | ~2019-11-28 | XMS | Encounter Summary ---
Demographics + + + | Address | [address] | | | [place] [address] | + + + | Home Phone | | + + + | Preferred Language | Unknown | + + + | Marital Status | Single | + + + | Islam Affiliation | NON | + + + [...] Team Providers + +------+ + | Care Aviation Consultant Name | Role | Phone | [...] + + | Closed | | | | | | +--------+--------+ + + + + Encounter Details +--------+---------+ + + + | Date | Type | Department | Care Team | Description | +--------+---------+ + + + | 05/13/ | Surgery | 6A Intra Op [id number] | Rajinder Luis MD | THORACIC LAMINECTOMY | | 2014 | | [facility] | [address] | AND | | | | [facility] | [place], [place] | | | | | Hospital Admitting | [phone] | | | | | Desk Located on the | [phone] | | | | | 9th floor | | | | | | [place], [place] | | | | | | [address] | | | +--------+---------+ + + + [...] + + + | Blood Pressure | 101/63 | 05/20/2015 8:24 AM | | | | | PST | | + + + + + | Pulse | 77 | 05/20/2015 8:24 AM | | | | | PST | | + + + + + | Temperature | 36.6 C (97.9 F) | 05/20/2015 8:24 AM | | | | | PST | | + + + + + | Respiratory Rate | 16 | 05/20/2015 8:24 AM | | | | | PST | | + + + + + | Oxygen Saturation | 96% | 05/20/2015 8:24 AM | | | | | PST | | + + + + + | Inhaled Oxygen | - | - | | | Concentration | | | | + + + + + | Weight | 92.3 kg (203 lb 7.8 | 05/14/2015 5:00 AM | | | | oz) | PST | | + + + + + | Height | 160 cm (5' 3") | 05/13/2015 10:00 PM | | | | | PST | | + + + + + | Body Mass Index | 36.05 | 05/13/2015 10:00 PM | | | | | PST | | + + + + + documented in this encounter Discharge Summaries Raegan Doss PA-C - 05/20/2015 7:50 AM PSTFormatting of this note might be different f rom the original. NEUROSURGERY DISCHARGE SUMMARY: Patient: Matt Fagan Admission Date: 05/12/2015 Discharge Date: 05/20/2015 Attending Physician: Rajinder Luis MD PCP: PATRIC Todd Service: [facility] Neurosurgery Diagnoses Principal Final Diagnosis: Intramedullary spinal cord tumor Additional Diagnoses: Pruritis related to pain medication RLE weakness Impaired sensation from T6 inferiorly Procedures 05/13/15 T6-T7 laminectomy for resection of tumor Brief Hospital Course Matt Fagan is a 24-year-old female with no significant medical history, who has had right lower extremity paresthesias for the previous 1-1/2 years. She also endorsed worsening right lower extremity weakness. She underwent an MRI which demonstrated a thoracic intramed ullary spinal cord lesion with a focal area of contrast enhancement. Given her clinical hist ory and imaging findings, she was therefore indicated for a T6-T7 laminectomy for resection of this tumor. She was admitted urgently on 05/12/2015 for this procedure after reporting wor sening numbness in her lower extremities. 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 The inpatient stay related to this procedure( s) took an uncomplicated perioperative course and the patient was followed closely by the at tending providers, resident providers, and medical/nursing staff. Post operatively, the bryn ent was admitted to the NSICU for close neurologic and hemodynamic monitoring. A thoracic M RI revealed that focal residual enhancement persisted in the cord at T7-8, concerning for re sidual disease with unchanged extensive T2 hyperintensity throughout the thoracic cord. On p ost-op day 2 the patient was stable for transfer to the [facility] for ongoing convalescent care. The patient reported decreased sensation from her mid-thoracic level (~T6) and downwards, af fecting the LLE more than the RLE. She continued to demonstrate her baseline of pre-op weakn ess in her RLE. She did experience symptomatic orthostatic hypotension for several days foll owing the procedure, but this improved with multiple saline boluses, CONRAD hose, LISA wraps and an abdominal binder. The patient's daniels was left in while she experienced symptomatic orth ostatic hypotension and for several days following at her request (she was afraid of not ying ng able to make it to a [facility] in time should she feel dizzy/weak). Surgical pain was managed w ith medication. The patient made appropriate gains toward activity and functional goals whil e an inpatient. The patient worked with our rehabilitation team with recommendation for IPR upon discharge. While on the hospital floor, the patient tolerated oral intake sufficient t o maintain nutrition and hydration. The surgical wound remained clean, dry, and intact witho ut signs concerning for infection. The patient was felt appropriate for discharge to [facility] ([facility], [facility]) on 05/20/2015, and the patient and/or family members agree with this cou rse of action. Diet Regular Regular diet- There are no restrictions to your diet. You may eat or drink whatever you pr efer, though healthy food choices are recommended. Activity Avoid heavy lifting, repetitive bending and all strenuous activity until further notice. No driving while taking oral narcotics/pain medications. Discharge POLST completed No Destination: Destination: Inpatient Rehab - [facility] Condition on Discharge Good Discharge Follow Up - Facility MD to follow Facility MD to follow patient. FOLLOW-UP You have a wound check appointment with Raegan Doss PA-C at 11:30am on 05/31. This will be on the 8th floor at the [facility] on the [facility] located at [address] [place] [address]. Please call [phone] if you have any questions or conc erns before your appointment time. If you are still admitted to [facility] at this time, it is okay to cancel this appointment as thais costa as a provider at that facility can examine your incision. Please then make an appointmen t with Raegan Doss for 1 month following your discharge from [facility]. PCP:PATRIC Todd When: Please follow-up with your [...] Medication List START taking these medications Details bisacodyl 10 mg rectal suppository Insert 1 suppository rectally once daily as needed for c onstipation (for no BM in past 2 days). Qty: 20 suppository, Refills: 0 bisacodyl EC 5 mg oral tablet,delayed release (DR/EC) Take 1 tablet by mouth once daily. Qty: 60 tablet, Refills: 0 diazepam 5 mg oral tablet Take 1 tablet by mouth three times daily as needed. Indications: ANXIETY, MUSCLE SPASM Qty: 60 tablet, Refills: 0 diphenhydrAMINE 25 mg oral capsule Take 1 capsule by mouth every six hours as needed. Qty: 60 capsule, Refills: 0 enoxaparin 40 mg/0.4 mL subcutaneous syringe Inject 0.4 mL under the skin (SUBC) once daily in the evening. Okay to DC at discretion of house MD or when pt is ambulating >150ft q3h wh ile awake. Indications: Deep Vein Thrombosis Prevention Qty: 10 mL, Refills: 0 gabapentin 300 mg oral capsule Take 1 capsule by mouth three times daily. Qty: 90 capsule, Refills: 0 HYDROmorphone 2 mg oral tablet Take 1-4 tablets by mouth every three hours as needed for se vicky pain. Qty: 90 tablet, Refills: 0 hydrOXYzine pamoate 25 mg oral capsule Take 1 capsule by mouth every six hours as needed fo r itching. Qty: 60 capsule, Refills: 0 magnesium citrate oral solution Take 296 mL by mouth once daily as needed. Qty: 296 mL, Refills: 0 zolpidem 5 mg oral tablet Take 1 tablet by mouth once daily at bedtime as needed. Qty: 20 tablet, Refills: 0 CONTINUE these medications which have NOT CHANGED Details acetaminophen 325 mg oral tablet Take 1-2 tablets by mouth every six hours as needed (pain or fever greater than 38.5 degrees C). polyethylene glycol 17 gram/dose oral powder Take 17 g by mouth once daily as needed (if no bowel movement in >2 days). Qty: 119 g, Refills: 1 senna-docusate 8.6-50 mg oral tablet Take 2 tablets by mouth twice daily as needed (for no bowel movement in >2 days). Qty: 15 tablet, Refills: 1 STOP taking these medications dexamethasone 2 mg oral tablet Comments: Reason for Stopping: Wound Care: 1) Keep your incision site clean and dry. Make sure that you protect your incision when w earing glasses. 2) It is ok for you to shower and get your surgical incision wet, but do not submerge surg ical incision in hot tub or swimming pool. 3) Please avoid placing creams or ointments directly on the incision even though it may it ch. 4) Your sutures are absorbable and will come out on their own. Special Instructions/Tests: N/A Condition On Discharge: Good Vital Signs at discharge as appropriate: BP: 95/52 mmHg (05/20/15340) Pulse: 84 (05/20/15340) Resp: 16 (340) Weight: 92.3 kg (203 lb 7.8 oz) (05/14/15 0500) Discharge Patient To: Interhospital Transfer - [facility] Does patient have a planned readmission: No Discharge Summary Completed?: Yes. 05/20/2015 Discharging Provider: Raegan Doss PA-C Date Completed: 05/20/2015 Time Completed: 7:50 AM Discharging Attending: Rajinder Luis MD [facility] [address] [address] [place] [place] [address] documented in this encounter Progress Notes Raegan Doss PA-C - 05/20/2015 6:51 AM PSTFormatting of this note might be different f rom the original. Neurosurgery Progress Note Hospital Day:8 Author; Raegan Doss PA-C Attending Physician: Rajinder Luis MD Interval Hx: -Pt reports not sleeping well last night. Took 5mg Ambien last night but reports only sleep ing afterwards for 2 hours. Also c/o itching on face, chest and around incision. Pt has been taking hydroxyzine 25mg once to twice daily. She is agreeable to trying benadryl. -Final path pending Last Vitals: BP 95/52 | Pulse 84 | Temp 36.6 C (97.9 F) | RR 16 | Ht 1.6 m (5' 3") | Wt 92.3 kg (203 lb 7.8 oz) | SpO2 96% | BMI 36.05 kg/(m^2)0 O2 Delivery Device: None (room air ) (05/20/15340) 24 Hour Vital Min/Max: Systolic (24hrs), Av mmHg, Min:87 mmHg, Max:124 mmHgDiastolic (24hrs), Av mmHg, Mi n:52 mmHg, Max:85 mmHgPulse Min: 84 Max: 127 Temp Min: 36.4 C (97.5 F) Max: 37.3 C (99.1 F) Resp Min: 16 Max: 16 SpO2 Min: 94 % Max: 100 % Intake/Output Summary (Last 24 hours) at 05/20/15 0651 Last data filed at 05/20/15 0615 Gross per 24 hour Intake 1360 ml Output 2050 ml Net -690 ml Exam: Alert, oriented x3. Speech clear, fluent. Gaze conjugate. Face symmetric. Thoracic incision: flat, no erythema, absorbable sutures present, intact. Sensation: Decreased sensation from T6 down. LLE - pt able to discern touch on medial/later al sides of foot. Motor: Tri Bi Rn Clinical Documentation Specialist HF KE APF ADF Left 5 5 5 5 5 5 5 Right 5 5 5 2 4 4 4 Current Medications: acetaminophen (TYLENOL) tablet 650 mg, 650 mg, oral, Q6H bisacodyl (DULCOLAX) suppository 10 mg, 10 mg, rectal, DAILY PRN bisacodyl EC (DULCOLAX) tablet 5 mg, 5 mg, oral, DAILY diazepam (VALIUM) tablet 5 mg, 5 mg, oral, TID PRN diphenhydrAMINE (BENADRYL) capsule 25 mg, 25 mg, oral, Q6H PRN enoxaparin (LOVENOX) injection 40 mg, 40 mg, subcutaneous, QPM gabapentin (NEURONTIN) capsule 300 mg, 300 mg, oral, TID HYDROmorphone (DILAUDID) tablet 2-8 mg, 2-8 mg, oral, Q3H PRN hydrOXYzine pamoate (VISTARIL) capsule 25 mg, 25 mg, oral, Q6H PRN magnesium citrate liquid 296 mL, 296 mL, oral, DAILY PRN ondansetron (ZOFRAN) injection 4 mg, 4 mg, intravenous, Q12H PRN polyethylene glycol (MIRALAX) powder 34 g, 34 g, oral, TID PRN senna-docusate (SENOKOT S) 8.6-50 mg 1 tablet, 1 tablet, oral, BID zolpidem (AMBIEN) tablet 5 mg, 5 mg, oral, HS PRN Impression: 24YOF with a 1.5 year hx of progressive RLE weakness and more recently new and progressive numbness. 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 Baseline RLE weakness and RLE>LLE numbness. Now s/p T6-T7 laminectomy for resection of tumor on 5. Final path pending. Post-op with sensation loss on torso from T6 below including left leg , slowly improving; R leg sensation intact at baseline. Strength preserved throughout at pre -op baseline. Wound healing well. Plan: Neuro: Pain control with APAP prn, diazepam TID prn, PO dilaudid 2-8mg q3h prn, gabapentin 300mg TID. Hydroxyzine and Benadryl prn itching. Ambien prn sleep. Derm: Routine wound care, okay to shower/wash incision daily. CV: HD stable, will continue to monitor. Pulm: IS, cough/deep breath. GI/diet: Regular diet. No BM since admission. Bowel regimen scheduled: Senokot, Miralax, Du lcolax PO. Mag citrate daily prn. : Cont daniels. Musculoskeletal/skin: Routine decubitus ulcer prevention. Appreciate PT/OT involvement. DVT ppx: SCDs while in bed, Lovenox 40mg qHS. 05/16 BLE duplex neg for DVT. Dispo: To [facility] ([facility]) today. Raegan Doss PA-C [facility] [address] [place] [address] Drive [facility] [place] [address] dams, PHILIPPE Mena - 05/19/2015 6:52 AM PST Neurosurgery Progress Note Hospital Day:7 Author; Raegan Doss PA-C Attending Physician: Rajinder Luis MD Interval Hx: -Pt denies having any issues with dizziness or lightheadedness when up yesterday -Pt reports regaining sensation in LEFT great toe yesterday and feeling her ppx Lovenox SQ shot in the abdomen for the first time last night, "felt like a pinch". -Pt reports she feels itchy on her face and chest from her pain medication. She would like to stay on her current regimen as she feels she has better pain control with dilaudid and ot her narcotics (Oxycodone) make her itch as well. Currently taking hydroxyzine for itching. -Final path still pending Last Vitals: BP 101/51 | Pulse 84 | Temp 36.4 C (97.5 F) | RR 16 | Ht 1.6 m (5' 3") | W t 92.3 kg (203 lb 7.8 oz) | SpO2 95% | BMI 36.05 kg/(m^2)0 O2 Delivery Device: None (room ai r) (05/19/15337) 24 Hour Vital Min/Max: Systolic (24hrs), Av mmHg, Min:97 mmHg, Max:133 mmHgDiastolic (24hrs), Av mmHg, Mi n:51 mmHg, Max:73 mmHgPulse Min: 76 Max: 101 Temp Min: 36.4 C (97.5 F) Max: 36.9 C (98.4 F) Resp Min: 16 Max: 16 SpO2 Min: 95 % Max: 99 % Intake/Output Summary (Last 24 hours) at 05/19/15 0682 Last data filed at 05/19/15 033 Gross per 24 hour Intake 1690 ml Output 3100 ml Net -1410 ml Exam: Alert, oriented x3. Speech clear, fluent. Gaze conjugate. Face symmetric. Thoracic incision: flat, absorbable sutures in place, flat, no erythema, intact. Sensation: LT sensation intact above T6 and patchy in RLE. Pt able to feel LEFT great toe. Otherwise cannot feel on trunk below T6 or the rest of the LLE. Motor: Tri Bi Rn Clinical Documentation Specialist HF KE APF ADF Left 5 5 5 5 5 5 5 Right 5 5 5 2 4+ 4 4+ Proprioception intact to bilateral great toe positioning Daniels in place draining clear yellow urine. Labs: CBC with diff last 72 hours (or 3 results) Recent Labs 05/17/15 1009 WBC 13.44* HB 11.6* HCT 37.1 PLT 343 Chemistries: Last 72 Hours (or 3 results): Recent Labs 05/16/15 1320 05/17/15 1009 NA 137 136 K 3.4 3.8 CL 101 100 BICARB 28 31 BUN 12 12 CR 0.67 0.67 GLU 108* 85 CA 8.7 9.2 MG 1.6* 2.0 Current Medications: acetaminophen (TYLENOL) tablet 650 mg, 650 mg, oral, Q6H bisacodyl (DULCOLAX) suppository 10 mg, 10 mg, rectal, DAILY PRN bisacodyl EC (DULCOLAX) tablet 5 mg, 5 mg, oral, DAILY diazepam (VALIUM) tablet 5 mg, 5 mg, oral, TID PRN enoxaparin (LOVENOX) injection 40 mg, 40 mg, subcutaneous, QPM gabapentin (NEURONTIN) capsule 300 mg, 300 mg, oral, TID HYDROmorphone (DILAUDID) injection 0.5-1.5 mg, 0.5-1.5 mg, intravenous, Q2H PRN HYDROmorphone (DILAUDID) tablet 2-8 mg, 2-8 mg, oral, Q3H PRN hydrOXYzine pamoate (VISTARIL) capsule 25 mg, 25 mg, oral, Q6H PRN ondansetron (ZOFRAN) injection 4 mg, 4 mg, intravenous, Q12H PRN polyethylene glycol (MIRALAX) powder 34 g, 34 g, oral, TID PRN senna-docusate (SENOKOT S) 8.6-50 mg 1 tablet, 1 tablet, oral, BID Impression: 24YOF with a 1.5 year hx of progressive RLE weakness and more recently new and progressive numbness. 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 Baseline RLE weakness and RLE>LLE numbness. Now s/p T6-T7 laminectomy for resection of tumor on 5. Final path pending. Post-op with sensation loss on torso from T6 below including left leg ; R leg sensation intact at baseline. Strength preserved throughout at pre-op baseline. Woun d clean. Plan: Neuro: Pain control with APAP prn, diazepam TID prn, PO dilaudid 2-8mg q3h prn, IV dialaudi d prn breakthrough, gabapentin 300mg TID. Hydroxyzine prn itching. Derm: Routine wound care, okay to shower/wash incision daily. CV: HD stable, will continue to monitor. Will continue using abdominal binder, CONRAD hose, AC E wraps prn for symptomatic OH prn. Pulm: IS, cough/deep breath. GI/diet: Regular diet. No BM since admission. Bowel regimen scheduled: Senokot, Miralax, Du lcolax PO. Added mag citrate daily prn. : Cont daniels for now, will likely DC in 1-2 days. Musculoskeletal/skin: Routine decubitus ulcer prevention. Appreciate PT/OT involvement. DVT ppx: SCDs while in bed, Lovenox 40mg qHS. 05/16 BLE duplex neg for DVT. Dispo: Currently working with CM for IPR placement. Raegan Doss PA-C [facility] [address] [address] [place] [address] dams, PHILIPPE Mena - 05/18/2015 6:52 AM PST Neurosurgery Progress Note Hospital Day:6 Author; Raegan Doss PA-C Attending Physician: Rajinder Luis MD Interval Hx: -Pt denies having any recurrent HAs yesterday when working with PT -Pt was able to work with PT/OT yesterday, BP stayed controlled and SBP >100 with CONRAD hoes, LISA wraps and an abdominal binder. -Pt reports her Right knee extension is stronger -Final path still pending Last Vitals: BP 100/54 | Pulse 72 | Temp 36.3 C (97.3 F) | RR 16 | Ht 1.6 m (5' 3") | W t 92.3 kg (203 lb 7.8 oz) | SpO2 98% | BMI 36.05 kg/(m^2)0 O2 Delivery Device: None (room ai r) (05/18/15 2555) 24 Hour Vital Min/Max: Systolic (24hrs), Av mmHg, Min:99 mmHg, Max:108 mmHgDiastolic (24hrs), Av mmHg, Mi n:51 mmHg, Max:62 mmHgPulse Min: 72 Max: 99 Temp Min: 36.3 C (97.3 F) Max: 37.3 C (99.1 F) Resp Min: 16 Max: 16 SpO2 Min: 93 % Max: 98 % Intake/Output Summary (Last 24 hours) at 05/18/15 0652 Last data filed at 05/18/15 0400 Gross per 24 hour Intake 1848 ml Output 3500 ml Net -1652 ml Exam: Alert, oriented x3. Speech clear, fluent. Gaze conjugate. Face symmetric. Thoracic incision: flat, no erythema, dry, intact. Sensation: LT sensation intact above T6. No cutaneous sensation on trunk below T6 and L leg . R leg sensation intact at pre-op baseline. Motor: Bi Tri Rn Clinical Documentation Specialist HF KE APF ADF Left 5 5 5 5 5 5 5 Right 5 5 5 1 5 4+ [address], draining clear yellow urine. Labs: CBC with diff last 72 hours (or 3 results) Recent Labs 05/15/15 0852 05/17/15 1009 WBC 16.42* 13.44* HB 11.1* 11.6* HCT 35.1* 37.1 PLT 277 343 Chemistries: Last 72 Hours (or 3 results): Recent Labs 05/15/15 0852 05/16/15 1320 05/17/15 1009 NA 139 137 136 K 4.0 3.4 3.8 CL 105 101 100 BICARB 29 28 31 BUN 10 12 12 CR 0.65 0.67 0.67 GLU 108* 108* 85 CA 8.4* 8.7 9.2 MG 2.0 1.6* 2.0 Current Medications: acetaminophen (TYLENOL) tablet 650 mg, 650 mg, oral, Q6H bisacodyl (DULCOLAX) suppository 10 mg, 10 mg, rectal, DAILY PRN bisacodyl EC (DULCOLAX) tablet 5 mg, 5 mg, oral, DAILY diazepam (VALIUM) tablet 5 mg, 5 mg, oral, TID PRN enoxaparin (LOVENOX) injection 40 mg, 40 mg, subcutaneous, QPM gabapentin (NEURONTIN) capsule 300 mg, 300 mg, oral, TID HYDROmorphone (DILAUDID) injection 0.5-1.5 mg, 0.5-1.5 mg, intravenous, Q2H PRN HYDROmorphone (DILAUDID) tablet 2-8 mg, 2-8 mg, oral, Q3H PRN hydrOXYzine pamoate (VISTARIL) capsule 25 mg, 25 mg, oral, Q6H PRN ondansetron (ZOFRAN) injection 4 mg, 4 mg, intravenous, Q12H PRN polyethylene glycol (MIRALAX) powder 34 g, 34 g, oral, TID PRN senna-docusate (SENOKOT S) 8.6-50 mg 1 tablet, 1 tablet, oral, BID Impression: 24YOF with a 1.5 year hx of progressive RLE weakness and more recently new and progressive numbness. 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 Baseline RLE weakness and RLE>LLE numbness. Now s/p T6-T7 laminectomy for resection of tumor on 5. Final path pending. Post-op with sensation loss on torso from T6 below including left leg ; R leg sensation intact at baseline. Strength preserved throughout at pre-op baseline. Woun d clean. Plan: Neuro: Pain control with APAP prn, diazepam TID prn, PO dilaudid 2-8mg q3h prn, IV dialaudi d prn breakthrough, gabapentin 300mg TID. Hydroxyzine prn itching. Derm: Routine wound care, okay to shower/wash incision daily. CV: HD stable, but low. Will continue using abdominal binder, CONRAD hose, LISA wraps prn for s ymptomatic OH prn. Pulm: IS, cough/deep breath. GI/diet: Regular diet. No BM since admission. Bowel regimen scheduled: Senokot, Miralax, Du lcolax PO. : Cont daniels for now, will likely DC in 1-2 days. Musculoskeletal/skin: Routine decubitus ulcer prevention. Appreciate PT/OT involvement. DVT ppx: SCDs while in bed, Lovenox 40mg qHS. 05/16 BLE duplex neg for DVT. Dispo: Currently working with CM for IPR placement. Raegan Doss PA-C [facility] [address] [address] [address] dams, PHILIPPE Mena - 05/17/2015 8:48 AM PST Neurosurgery Progress Note Hospital Day:5 Author; Raegan Doss PA-C Attending Physician: Rajinder Luis MD Interval Hx: -Pt reports pain controlled at 10/16, continued numbness from below breasts through torso an d L leg. R leg sensation is intact at pre-op baseline. -Symptomatic hypotension continues when pt is >45degrees or out of bed. Bolused 500mL once yesterday with good response. Pt reports she has been working on her PT exercises with her m other regularly and is drinking as much water as she can. -Pt denies having a BM since surgery, states it is normal for her to not have a BM for 4-5 days at home -Final pathology is still pending -BLE Duplex on 05/16 is negative for DVT Last Vitals: BP 97/49 | Pulse 102 | Temp 36.8 C (98.2 F) | RR 16 | Ht 1.6 m (5' 3") | W t 92.3 kg (203 lb 7.8 oz) | SpO2 96% | BMI 36.05 kg/(m^2)0 O2 Delivery Device: None (room ai r) (05/17/15 0352) 24 Hour Vital Min/Max: Systolic (24hrs), Av mmHg, Min:77 mmHg, Max:126 mmHgDiastolic (24hrs), Av mmHg, Mi n:37 mmHg, Max:73 mmHgPulse Min: 77 Max: 127 Temp Min: 36.3 C (97.3 F) Max: 37 C (98.6 F) Resp Min: 16 Max: 16 SpO2 Min: 96 % Max: 99 % Intake/Output Summary (Last 24 hours) at 05/17/15 0848 Last data filed at 05/17/15 0400 Gross per 24 hour Intake 3731 ml Output 2825 ml Net 906 ml Exam: Alert, oriented x3. Speech clear, fluent. Gaze conjugate. Face symmetric. Thoracic incision: flat, intact, dry. Sensation: LT sensation absent on torso from T6 down including LEFT leg. RIGHT leg with sen sation grossly intact at pre-op baseline. Motor: Delt Tri Bi Rn Clinical Documentation Specialist HF KE APF ADF Left 5 5 5 5 5 5 5 5 Right 5 5 5 5 3 4 4+ [address] draining clear yellow urine. Labs: CBC with diff last 72 hours (or 3 results) Recent Labs 05/15/15 0852 WBC 16.42* HB 11.1* HCT 35.1* PLT 277 Chemistries: Last 72 Hours (or 3 results): Recent Labs 05/15/15 0852 05/16/15 1320 NA 139 137 K 4.0 3.4 CL 105 101 BICARB 29 28 BUN 10 12 CR 0.65 0.67 GLU 108* 108* CA 8.4* 8.7 MG 2.0 1.6* Current Medications: acetaminophen (TYLENOL) tablet 650 mg, 650 mg, oral, Q6H bisacodyl (DULCOLAX) suppository 10 mg, 10 mg, rectal, DAILY PRN diazepam (VALIUM) tablet 5 mg, 5 mg, oral, TID PRN enoxaparin (LOVENOX) injection 40 mg, 40 mg, subcutaneous, QPM gabapentin (NEURONTIN) capsule 300 mg, 300 mg, oral, TID HYDROmorphone (DILAUDID) injection 0.5-1.5 mg, 0.5-1.5 mg, intravenous, Q2H PRN HYDROmorphone (DILAUDID) tablet 2-8 mg, 2-8 mg, oral, Q3H PRN hydrOXYzine pamoate (VISTARIL) capsule 25 mg, 25 mg, oral, Q6H PRN ondansetron (ZOFRAN) injection 4 mg, 4 mg, intravenous, Q12H PRN polyethylene glycol (MIRALAX) powder 34 g, 34 g, oral, TID PRN senna-docusate (SENOKOT S) 8.6-50 mg 1 tablet, 1 tablet, oral, BID Imaging: Bilateral: The duplex scanner was used to examine the deep and superficial veins of the right and left lower extremities. The veins are patent bilaterally with normal flows and responses to augmentation and compression maneuvers and no thrombus is noted. Conclusions: A normal venous examination of the bilateral lower extremities. No venous thrombosis was detected. Attending Radiologists: KOREY SHELBY MD Author: KOREY SHELBY MD I have personally viewed this procedure/exam, reviewed this report, and made changes to it where appropriate. Final/Electronically signed / KOREY SHELBY 05/17/2015 6:31 AM Preliminary / KOREY SHELBY 05/16/2015 15:00 PM Impression: 24YOF with a 1.5 year hx of progressive RLE weakness and more recently new and progressive numbness. 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 Baseline RLE weakness and RLE>LLE numbness. Now s/p T6-T7 laminectomy for resection of tumor on 5. Final path pending. Post-op with sensation loss on torso from T6 below including left leg ; R leg sensation intact at baseline. Strength preserved throughout at pre-op baseline. Woun d clean. Plan: Neuro: Pain control with APAP prn, diazepam TID prn, PO dilaudid 2-8mg q3h prn, IV dialaudi d prn breakthrough, Cont home meds: gabapentin 300mg TID Derm: Routine wound care, okay to shower/wash incision daily. CV: HD stable, but low. Demonstrating orthostatic signs when OOB/upright. Will bolus 500mL again this AM, LISA wrap calves. Pulm: IS, cough/deep breath GI/diet: Regular diet. No BM since admission. Bowel regimen scheduled. Mag replaced yesterd ay, will check BMP +Mg again today. : Cont daniesl for now. Musculoskeletal/skin: Routine decubitus ulcer prevention. Appreciate PT/OT involvement. DVT ppx: SCDs while in bed, Lovenox 40mg qHS. 05/16 BLE duplex neg for DVT. Dispo: Currently working with CM for IPR placement. Raegan Doss PA-C [id number] [address] [address] Cesar Cox MD - 02/2015 9:39 AM PST NEUROSURGERY PROGRESS NOTE Hospital Day #: 4 Attending: Rajinder Luis MD Interval Events: - RLE exam stable - Pt states pain improved - now 09/15 - Pt endorses R calf pain - States subjective weakness in RLE stable Objective: Last Vitals: BP 105/50 | Pulse 64 | Temp 36.5 C (97.7 F) | RR 16 | Ht 1.6 m (5' 3") | W t 92.3 kg (203 lb 7.8 oz) | SpO2 95% | BMI 36.05 kg/(m^2) 24 Hour Vital Min/Max: Systolic (24hrs), Av mmHg, Min:105 mmHg, Max:123 mmHg Diastolic (24hrs), Av mmHg, Min:48 mmHg, Max:73 mmHg Pulse Min: 50 Max: 67 Temp Min: 36.3 C (97.3 F) Max: 37.2 C (99 F) Resp Min: 10 Max: 20 SpO2 Min: 96 % Max: 99 % Intake/Output Summary (Last 24 hours) at 05/15/15 0807 Last data filed at 05/15/15 0130 Gross per 24 hour Intake 2960 ml Output 4300 ml Net -1340 ml Physical Exam: Awake, alert, oriented to self, time, place, situation Following commands briskly PERRL EOMI Face symmetric Tongue midline Strength: No pronator drift RUE: 5/5 HG/B/T LUE: 5/5 HG/B/T RLE: 4- HF, 4- DF, 5/5 PF, 5/5 KE, 3/5 KF, LLE 5/5 HF/DF/PF/EHL Numbness in bilateral LE L worse than R extending up to abdomen, stable from yesterday Labs: Lab Results Component Value Date/Time NA 139 05/15/2015 08:52 AM K 4.0 05/15/2015 08:52 AM CR 0.65 05/15/2015 08:52 AM HCT 35.1* 05/15/2015 08:52 AM WBC 16.42* 05/15/2015 08:52 AM PLT 277 05/15/2015 08:52 AM ] No results found for: CULTURE Current Inpatient Medications Medication Dose Route Frequency acetaminophen (TYLENOL) tablet 325-650 mg 325-650 mg oral Q6H PRN bisacodyl (DULCOLAX) suppository 10 mg 10 mg rectal DAILY PRN diphenhydrAMINE (BENADRYL) capsule 25-50 mg 25-50 mg oral Q6H PRN enoxaparin (LOVENOX) injection 40 mg 40 mg subcutaneous QPM gabapentin (NEURONTIN) capsule 300 mg 300 mg oral TID HYDROmorphone (DILAUDID) injection 0.5-1.5 mg 0.5-1.5 mg intravenous Q2H PRN ondansetron (ZOFRAN) injection 4 mg 4 mg intravenous Q12H PRN oxyCODONE (immediate release) (ROXICODONE) tablet 5-15 mg 5-15 mg oral Q3H PRN polyethylene glycol (MIRALAX) powder 34 g 34 g oral TID PRN senna-docusate (SENOKOT S) 8.6-50 mg 1 tablet 1 tablet oral BID tiZANidine (ZANAFLEX) tablet 2 mg 2 mg oral TID ASSESSMENT: Matt Fagan is a 24 F with a 1.5 year hx of progressive RLE weakness and more recentl y new and progressive numbness. 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 Baseline RLE weakness and RLE>LLE numbness. Now s/p T8-9 lami for tumor resection 1 07/13 PLAN: Neurological: - Continue acute care therapies; pain control; monitor for acute neurologic changes - pain control: sched apap, gabapentin 300 TID, dilaudid IV and PO, valium for muscle spasm s. - completed dex taper Cardiovascular: - BP and HR stable Respiratory: IS, cough/deep breathe, O2 prn GI: Diet: regular; bowel regimen / Renal: 24-hour I/O goal: euvolemic; electrolytes wnl ID/HO: AF, WBC downtrending to 16- likely from steroids and surgery. Endocrine: CBG within normal limits without insulin Musculoskeletal / Skin: No active issues, Routine decubitus ulcer prevention. PT/OT DVT prophylaxis: SCDs while in bed, prophylactic lovenox. Will get duplex for R calf pain. Disposition: pending clinical course. Needs IPR per PT. Cesar Odonnell MD Neurosurgery PGY1 Cesar Cox MD - 05/15/2015 8:07 AM PST NEUROSURGERY PROGRESS NOTE Hospital Day #: 3 Attending: Rajinder Luis MD Interval Events: - RLE exam this AM improved vs documented historical exams - BLE numbness slightly improved Objective: Last Vitals: BP 99/49 | Pulse 52 | Temp 36.8 C (98.2 F) | RR 18 | Ht 1.6 m (5' 3") | Wt 92.3 kg (203 lb 7.8 oz) | SpO2 97% | BMI 36.05 kg/(m^2) 24 Hour Vital Min/Max: Systolic (24hrs), Av mmHg, Min:99 mmHg, Max:116 mmHg Diastolic (24hrs), Av mmHg, Min:48 mmHg, Max:72 mmHg Pulse Min: 50 Max: 67 Temp Min: 36.3 C (97.3 F) Max: 37.2 C (99 F) Resp Min: 10 Max: 20 SpO2 Min: 96 % Max: 99 % Intake/Output Summary (Last 24 hours) at 05/15/15 0807 Last data filed at 05/15/15 0130 Gross per 24 hour Intake 2960 ml Output 4300 ml Net -1340 ml Physical Exam: Awake, alert, oriented to self, time, place, situation Following commands briskly PERRL EOMI Face symmetric Tongue midline Strength: No pronator drift RUE: 5/5 HG/B/T LUE: 5/5 HG/B/T RLE: 4+ HF, 4+ DF, 5/5 PF/EHL LLE 5/5 HF/DF/PF/EHL Numbness in bilateral LE L worse than R extending up to abdomen, improved from yesterday Incision c/d/i. No surrounding erythema, swelling or drainage. Labs: Lab Results Component Value Date/Time NA 143 05/14/2015 02:40 AM K 3.2* 05/14/2015 02:40 AM CR 0.48* 05/14/2015 02:40 AM HCT 33.6* 05/14/2015 04:48 AM WBC 23.58* 05/14/2015 04:48 AM PLT 294 05/14/2015 04:48 AM ] No results found for: CULTURE Current Inpatient Medications Medication Dose Route Frequency acetaminophen (TYLENOL) tablet 325-650 mg 325-650 mg oral Q6H PRN bisacodyl (DULCOLAX) suppository 10 mg 10 mg rectal DAILY PRN diphenhydrAMINE (BENADRYL) capsule 25-50 mg 25-50 mg oral Q6H PRN enoxaparin (LOVENOX) injection 40 mg 40 mg subcutaneous QPM gabapentin (NEURONTIN) capsule 300 mg 300 mg oral TID HYDROmorphone (DILAUDID) injection 0.5-1.5 mg 0.5-1.5 mg intravenous Q2H PRN magnesium sulfate in water IV (RTU) 2 g 2 g intravenous PRN magnesium sulfate in water IV (RTU) 4 g 4 g intravenous PRN ondansetron (ZOFRAN) injection 4 mg 4 mg intravenous Q12H PRN oxyCODONE (immediate release) (ROXICODONE) tablet 5-15 mg 5-15 mg oral Q3H PRN polyethylene glycol (MIRALAX) powder 34 g 34 g oral TID PRN potassium chloride (KAOCHLOR) liquid 10-40 mEq 10-40 mEq oral PRN Or potassium chloride (KAOCHLOR) liquid 10-40 mEq 10-40 mEq feeding tube PRN senna-docusate (SENOKOT S) 8.6-50 mg 1 tablet 1 tablet oral BID tiZANidine (ZANAFLEX) tablet 2 mg 2 mg oral TID ASSESSMENT: Matt Fagan is a 24 F with a 1.5 year hx of progressive RLE weakness and more recentl y new and progressive numbness. 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 Baseline RLE weakness and RLE>LLE numbness. Now s/p T8-9 lami for tumor resection 1 07/13, neurological exam improving PLAN: Neurological: - Continue acute care therapies; pain control; monitor for acute neurologic changes - dex taper, last dose 05/15 - sat up yest - Plan to get up and work with PT today Cardiovascular: - BP and HR stable Respiratory: IS, cough/deep breathe, O2 prn GI: Diet: regular; bowel regimen / Renal: 24-hour I/O goal: euvolemic; Has daniels catheter will dc today. K, Mg low yes t was repleted will recheck today, Ca slightly low after adjusting for albumin will recheck ID/HO: AF, WBC 25 yesterday will get another one today - likely steroids & postsurgical le ukocytosis. Endocrine: CBG within normal limits without insulin Musculoskeletal / Skin: No active issues, Routine decubitus ulcer prevention. PT/OT DVT prophylaxis: SCDs while in bed, prophylactic lovenox Disposition: pending clinical course Cesar Odonnell MD Neurosurgery PGY1 horrChris nicholson PA - 1 07/14/2014 4:29 PM PST NEUROCRITICAL CARE PROGRESS NOTE Author: Park Hoover MD Date of SERVICE: 05/14/2015 ICU Attending: MD Sarina Admit Service: [facility] [place] ICU Day # 2 POD # 1 HPI: Matt Fagan is a 24 y.o. 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 She reports that her RLE numbness has worsened si nhe neurosurgery last saw her. She also endorses that the bottom of her left foot is beginni ng to feel the way that her right foot did before it became numb. She denies bowel/bladder d ysfunction, headaches, vision deficits, seizures. Note adapted from Dr. Hankins's history an d physical note dated 05/12/2015. 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 She tolerated the procedure well. Post-op she reported that she was now experie ncing numbness in the LLE when it had previously been in her RLE IMAGING: Home Meds: Prescriptions prior to admission Medication Sig Dispense Refill Last Dose acetaminophen 325 mg oral tablet Take 1-2 tablets by mouth every six hours as needed (p ain or fever greater than 38.5 degrees C). dexamethasone 2 mg oral tablet Take 2 tablets by mouth every six hours. 60 tablet 0 polyethylene glycol 17 gram/dose oral powder Take 17 g by mouth once daily as needed (i f no bowel movement in >2 days). 119 g 1 senna-docusate 8.6-50 mg oral tablet Take 2 tablets by mouth twice daily as needed (for no bowel movement in >2 days). 15 tablet 1 PE: BP 109/52 | Pulse 67 | Temp 37.2 C (99 F) | RR 20 | Ht 1.6 m (5' 3") | Wt 92.3 kg (203 lb 7.8 oz) | SpO2 98% | BMI 36.05 kg/(m^2) Constitutional: WD/WN, NAD Admission Weight: Weight: 92.3 kg (203 lb 7.8 oz) (05/14/15 0500) Neurological: Constitutional: Alert & oriented x 3 Cranial Nerves: 3mm Equal, round and reactive to light. EOMI. VFI to confrontational testin g.; Faces symmetrical.; V1-V3 intact bilaterally. Tongue protrudes midline. Motor: exam limited by pain, moving all extremities spontaneously. RLE DF and PF 4+/5, was 5/5 on the left DTR: 2+ in UE, and LLE, RLE 3+, toes upgoing bilaterally Sensory: reports decreased sensation to LT in LLE up to hip, and over abdomen bilaterally t o about T7 dermatome Coordination: FTN and HTS not tested due to pain EVD: No HEENT: - NCAT Cardiovascular: - RRR, no murmurs Respiratory: - lungs clear to auscultation bilateral GI: - abd soft, NT/ND, normal active BS /Renal: Daniels: yes UOP: Yellow Musculoskeletal: - ext warm, well perfused, no edema, cyanosis, or clubbing Skin: - No rashes or significant breakdown; Lines/Tubes/Drains: - A-line - daniels - PIV Problem List Patient Active Problem List Diagnosis Spinal cord tumor Thoracic spine tumor Bilateral lower extremity sensory deficits Assessment and Plan: Neurological: # intramedullary thoracic spinal cord tumor, 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 Cardiovascular: # no active issues -Goal SBP < 160mmHg - will give fluid bolus if not maintaining pressures, no pressors Respiratory: # At risk for atelectasis Chest x-ray ordered and pending No active issues. Continue Incentive Spirometry 10x hr. GI/Nutrition: # At risk for constipation/ileus # At risk for NV - Diet: Regular diet - NSICU bowel protocol - MIVF: normal saline - PRN Zofran and Reglan - GI Prophylaxis: not clinically indicated / Renal: # At risk for urinary retention # At risk for electrolyte deficiencies - Daniels: yes - Daily renal function sets - Sodium goal: 135-145 - Replete electrolye deficiencies as needed ID/HO: # At risk for DVT/PE -SCDs for DVT prophy; chemo prophy contraindicated due to Bleeding risk -Daily CBC -Antibiotics: bijal-op cefazolin - Williamson culture for fever >/ 38.3 Endocrine: # At risk for hyperglycemia, stress related -SSI for CBG >140 -EndoTool for CBG >180 Musculoskeletal / Skin: # At risk for skin breakdown - Routine decubitus ulcer prevention per Jose scale - PT/OT as indicated Routine ICU Care: Lines/Tubes/Drains: PIV Feeding: Regular diet Analgesia: tylenol, Sedation: not indicated Thromboprophylaxis: SCDs Head of bed: Flat Ulcer prophylaxis: not clinically indicated Glycemic control: SQ sliding scale Advanced Care Plan or Advanced Directive: No Does Patient have Surrogate Decision Maker: I don't know --If no, has next of kin been identified: Yes --Name and contact information of next of kin: Judit mother [phone] Disposition: Acute care Code: Full This patient has been staffed with Lesly Branch MD , attending physician, who agrees with the above assessment and plan. [facility] DEPARTMENT: [id number] ICU NEURO Place of Service:- Inpatient Date of Service: 05/14/2015 CSN: [id number] Lab Results Component Value Date WBC 23.58 05/14/2015 HB 10.8 05/14/2015 HCT 33.6 05/14/2015 PLT 294 05/14/2015 MCV 84.2 05/14/2015 RDW 43.3 05/14/2015 Chemistries Last 96 Hours (or 3 results): Recent Labs 05/12/15195205/13/15 0648 NA 139 139 K 3.7 3.7 CL 108 107 BICARB 23 24 BUN 13 12 CR 0.67 0.64 CA 9.0 9.3 CBC with diff last 96 hours (or 3 results) Recent Labs 05/12/15202705/13/15 0648 WBC 11.19* 20.20* HB 12.3 12.6 HCT 38.3 40.0 PLT 352 364 Current Medications: Current Inpatient Medications Medication Dose Route Frequency acetaminophen (TYLENOL) tablet 325-650 mg 325-650 mg oral Q6H PRN bisacodyl (DULCOLAX) suppository 10 mg 10 mg rectal DAILY PRN dexamethasone (DECADRON) tablet 4 mg 4 mg oral Q12H enoxaparin (LOVENOX) injection 40 mg 40 mg subcutaneous QPM gabapentin (NEURONTIN) capsule 300 mg 300 mg oral TID HYDROmorphone (DILAUDID) injection 0.5-1.5 mg 0.5-1.5 mg intravenous Q2H PRN magnesium sulfate in water IV (RTU) 2 g 2 g intravenous PRN magnesium sulfate in water IV (RTU) 4 g 4 g intravenous PRN ondansetron (ZOFRAN) injection 4 mg 4 mg intravenous Q12H PRN oxyCODONE (immediate release) (ROXICODONE) tablet 5-15 mg 5-15 mg oral Q3H PRN polyethylene glycol (MIRALAX) powder 34 g 34 g oral TID PRN potassium chloride (KAOCHLOR) liquid 10-40 mEq 10-40 mEq oral PRN Or potassium chloride (KAOCHLOR) liquid 10-40 mEq 10-40 mEq feeding tube PRN senna-docusate (SENOKOT S) 8.6-50 mg 1 tablet 1 tablet oral BID tiZANidine (ZANAFLEX) tablet 2 mg 2 mg oral TID o, Yokasta Fleming MD - 05/14/2015 12:33 PM PSTBrief Progress Note Informed by bedside nurse that patient feels weaker in her RLE Went by to examine patient BP 100s/50s, MAP 66 Patient lying in bed Appropriately conversational and alert BUE no pronator drift, 5/5 in all muscle groups RLE HF 4/5, KE 4/5, KF 4-/5, PF 4-/5, DF 4-/5, EHL 4+/5 LLE all muscle groups 5/5 Hyperreflexic 3+ bilateral patellar reflexes Clonus 3 beats RLE, no beats LLE Patient started being tearful at end of examination due to fear of not being able to walk a gain Impression: Subjective RLE weakness, but on my exam appears to be still as strong as this A M's examination. Plan: - fluid bolus 1 L to augment blood pressure - encouraged eating - reassured patient - will come by and check patient later Yokasta Randall PGY2 [id number] [facility] Lesly Lang MD - 8:25 AM [facility] Author: Lesly Branch MD Briefly, this is a 24 y.o. 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 She underwent an elective T8-9 laminectomy for resection of intramedullary spinal cord tumor. The surgery was uncomplicated and the patients was extubated at the end of the procedure. Frozen: low grade glioma. 24h events: Mobilizing today. PE: Neuro: A&O x3. Language clear and fluent. PERRL. EOMI. Visual hutton full. Face symmetric. Hearing intact. TUP midline. Strength symmetric, 5/5. No sensory loss. No cerebellar signs. Pulm: CTAB CV: RRR A/P: 24 yo s/p resection of spinal tumor as above. At risk for deterioration due to CSF hai k, cord injury, WI, UTI, acute blood loss anemia, DVT 1. Neuro -MRI spine per NSGY -PT/OT evals -Mobilize -Frequent Neurologic checks -Pain control with oxycodone, gabapentin, Xanaflex 2. CV -MAP>65 mmHg, SBP< 160 mmHg 3. Pulm Ecourage IS 4. GI//Endo -Advance diet as tolerated -Daniels catheter-to be removed -Continue sliding scale insulin with goal BG<200 5. Heme -Monitor H&H post-op 6. Renal -Replete electrolyes as needed 7. ID -Afebrile, no Abx -Central line -none 8. Proph: Stress ulcer prophylaxis not needed. DVT proph with SCDs. Lesly Branch M.D. Director Of Education, Neurology and Emergency Medicine I spent 20 minutes in direct care of this patient with over 50% spent at the patient s b eside, reviewing data, discussing the patient s care with other medical staff, charting, a nd discussion with treatment decision maker. [facility] DEPARTMENT: [id number] CRITICAL CARE Place of Service: Inpatient Date of Service: 05/14/2015 [facility]: [id number] Suggested Level of Care: 88180 - SUBSEQUENT HOSPITAL CARE,LEVEL III impson, Polly Longoria MD ,MPH - 05/14/2015 5:19 AM PST NEUROSURGERY PROGRESS NOTE Author: Polly Hankins MD,MPH Today's Date: 05/14/2015 Attending Physician: Rajinder Luis MD INTERVAL UPDATE: No acute events overnight. Pain adequately controlled. Tolerating clear sips without nausea or emesis. Intermittently distressed/anxious about bilateral lower extremity sensation feel ing different than it did pre-operatively. Rec'd IVF bolus x 2 for MAP goal >70. OBJECTIVE: Vitals, fluid status, medication, and labs all reviewed in patient chart. Last 24 hour min/max Temp: 36.6 C (97.9 F) Temp Min: 36.4 C (97.5 F) Max: 37 C (98.6 F) Pulse: 52 Pulse Min: 47 Max: 99 Resp: 20 Resp Min: 10 Max: 21 BP: 116/65 mmHg BP Min: 99/44 Max: 142/72 SpO2: 99 % SpO2 Min: 95 % Max: 100 % Body mass index is 35.04 kg/(m^2). I/O/Drains Current Shift I/O/Drains Last 3 Completed Shifts 05/13 2301 - 05/14 0700 In: 2520 [P.O.:300; I.V.:2220] Out: 1310 [Urine:1310] 05/12 2301 - 05/13 2300 In: 2265.7 [P.O.:180; I.V.:2085.7] Out: 1290 [Urine:840] No Data Recorded No Data Recorded Lab Results Component Value Date WBC 23.58 05/14/2015 HB 10.8 05/14/2015 HCT 33.6 05/14/2015 PLT 294 05/14/2015 MCV 84.2 05/14/2015 RDW 43.3 05/14/2015 Lab Results Component Value Date NA 143 05/14/2015 K 3.2 05/14/2015 CL 116 05/14/2015 BICARB 19 05/14/2015 BUN 10 05/14/2015 CR 0.48 05/14/2015 GLU 121 05/14/2015 CA 6.1 05/14/2015 ANIONGAP 8 05/14/2015 ANIONALBCOR 13 05/14/2015 Lab Results Component Value Date APTT 29.4 05/12/2015 NEUROLOGICAL EXAM: A&O to name, date, location, and situation Following commands, answering appropriately PERRL, EOMI, Conjugate gaze Face motor grossly intact; eyes close fully MOTOR SCORE LEFT RIGHT C5 (Shoulder Abduct) 5 5 C6 (Elbow Flex) 5 5 C7 (Elbow Ext) 5 5 C8 (Wrist Ext) 5 5 T1 (Pinky Abd) 5 5 L2 (Hip Flex) 5 3 L3 (Knee Ext) 5 4 L4 (Dorsiflexion) 5 4 L5 (EHL) 5 4 S1 (Plantar Flex) 5 4- BLE SILT except for patchy in RLE (?L5/S1) where paresthesias and pain sensation intact (herrera bjectively dull) Proprioception intact in R big toe, not L big toe Incision - C/D/I. Flat. No fluid collection. No fluctuance. No drainage/CSF leak noted ASSESSMENT/PLAN: 24 y.o. female HD#2, POD#1 from T8-9 laminectomy for resection of intramedullary tumor. Annie rologically stable, well-appearing. - Will discuss slow dexamethasone taper, liberalizing MAP goal, and transfer to floor with staff - MAP goal >75 - Dexamethasone 4mg q6 hours - Frequent neuro checks - keep dressings and incision C/D/I - Maintain adequate analgesia - ADAT, anti-emetics, and bowel regimen prn - Encourage mobilization, SCDs while in bed Polly Hankins MD,MPH Neurological Surgery, PGY-3 reIra roman am, MD,PhD - 05/13/2015 10:27 PM PSTFormatting of this note might be different from the or iginal. NSICU Neuroscience ICU Attending Jig And Fixture Repairer Note I have seen and evaluated Matt Fagan with Dr. Hoover and reviewed the chart, lab and imaging results. See the resident's note for details. Ms. Matt Fagan is a 24 y.o. 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 She underwent today T8-9 laminectomy for resection of intramedullary spinal cord tumor. The surgery was uncomplicated and the patients was extubated at the end of the procedure. Froze n: low grade glioma. PE: Alert and oriented, numbness on the LUE, acute postoperative pain. No respiratory radha rns. Assessment and Plan: Neuro: Q 1 h neuro checks, pain control, start gabapentin, schedule tylenol, PRN opioids. CV: Maintain SBP <160 and MAP >70. Resp: Keep Sat O2 >92%, encourage IS, HOB elevation up to 45 degrees. GI: Bowel regimen, GI prophylaxis not indicated. Glucose control per ICU protocol. : Daneils to monitor I/Os. Replace electrolytes. DVT prophylaxis with SCDs. Bedrest tonight. I spent 20 minutes actively involved in care and management of this patient, including disc ussions with primary and consulting teams and coordination of care Cathy Cespedes MD,PhD [facility] DEPARTMENT: [id number] ICU NEURO Place of Service:- Inpatient Date of Service: 05/13/2015 CSN: [id number] Suggested Modifier: Resident involved Suggested CPT: TO JAVA TECHNICAL ARCHITECT Gilbert Collins MD,MPH - 05/13/2015 8:49 PM PSTFormatting of this note might be different from the or iginal. NEUROSURGERY POST OPERATIVE CHECK Author: Polly Hankins MD,MPH Date: 05/13/2015 Attending Physician: Rajinder Luis MD PROCEDURE: T8-9 laminectomy for resection of tumor S: No acute post-operative events. Working on pain control. Subjectively, right leg sensat ion to light touch improved compared to pre-op. VITAL SIGNS: BP 124/59 | Pulse 73 | Temp 37 C (98.6 F) | RR 18 | SpO2 99% PHYSICAL EXAM FINDINGS: A&Ox3, Following commands PERRLA, EOMI, Tongue Midline, Face symmetric MOTOR SCORE LEFT RIGHT C5 (Shoulder Abduct) 5 5 C6 (Elbow Flex) 5 5 C7 (Elbow Ext) 5 5 C8 (Wrist Ext) 5 5 T1 (Pinky Abd) 5 5 L2 (Hip Flex) 5 2* L3 (Knee Ext) 5 4- L4 (Dorsiflexion) 5 4 L5 (EHL) 5 4+ S1 (Plantar Flex) 5 3 *pain-limited BLE proprioception intact RLE SILT thtoughout LLE proximal sensation to pain only (subjectively felt as pressure/touch) and distal sensat ion to light touch, plantar paresthesias POST OPERATIVE IMAGING: MRI Pending A/P: Neurologically stable. Continue care: - Frequent Neuro Checks - Keep incision and dressings C/D/I. - Maintain adequate analgesia with goal RASS 0 - SBP 100-160, MAP goal >75 - ADAT - Utilize bowel regimen for goal 1 BM per 24 hours - SCDs while in bed Polly Hankins M.D. MPH Neurological Surgery, PGY-3 dams, Raegan Nieves PA-C - 05/13/2015 8:48 AM PST . Neurosurgery Progress Note Hospital Day:1 Author; Raegan Doss PA-C Attending Physician: Rajinder Luis MD Interval Hx: -Pt reports not being able to sleep more than 2 hours last night d/t steroids -C/o worsening "pins and needles" feeling in the bottom of her L foot Last Vitals: BP 123/68 | Pulse 74 | Temp 36.7 C (98.1 F) | RR 16 | SpO2 95%0 O2 Deliver y Device: None (room air) (05/13/15 0733) 24 Hour Vital Min/Max: Systolic (24hrs), Av mmHg, Min:119 mmHg, Max:137 mmHgDiastolic (24hrs), Av mmHg, M in:60 mmHg, Max:75 mmHgPulse Min: 67 Max: 82 Temp Min: 36.4 C (97.5 F) Max: 36.7 C (98.1 F) Resp Min: 16 Max: 16 SpO2 Min: 95 % Max: 98 % Intake/Output Summary (Last 24 hours) at 05/13/15 0848 Last data filed at 05/13/15 0733 Gross per 24 hour Intake 830 ml Output 0 ml Net 830 ml Exam: Alert, oriented x3. Speech clear, fluent. Pupils equal. Gaze conjugate. Face symmetric. Sensation: Decreased sensation to bottom of L foot, decreased sensation on R anterior thigh , R solorio and entire foot. Motor: Tri Bi WE Rn Clinical Documentation Specialist HF KE APF ADF Left 5 5 5 5 5 5 5 5 Right 5 5 5 5 3 3 4 4 Labs: CBC with diff last 72 hours (or 3 results) Recent Labs 05/12/15202705/13/15 0648 WBC 11.19* 20.20* HB 12.3 12.6 HCT 38.3 40.0 PLT 352 364 Chemistries: Last 72 Hours (or 3 results): Recent Labs 05/12/15195205/13/15 0648 NA 139 139 K 3.7 3.7 CL 108 107 BICARB 23 24 BUN 13 12 CR 0.67 0.64 GLU 165* 142* CA 9.0 9.3 Current Medications: acetaminophen (TYLENOL) tablet 325-650 mg, 325-650 mg, oral, Q6H PRN bisacodyl (DULCOLAX) suppository 10 mg, 10 mg, rectal, DAILY PRN ceFAZolin (ANCEF) injection 1 g, 1 g, intravenous, PREPROCEDURE ONCE dexamethasone (DECADRON) tablet 4 mg, 4 mg, oral, Q6H HYDROmorphone (DILAUDID) injection 0.5-1.5 mg, 0.5-1.5 mg, intravenous, Q2H PRN lidocaine (XYLOCAINE) 10 mg/mL (1 %) injection, , subcutaneous, PREPROCEDURE PRN NaCl 0.9 % solution, 75 mL/hr, intravenous, PROCEDURE CONTINUOUS ondansetron (ZOFRAN) injection 4 mg, 4 mg, intravenous, Q12H PRN oxyCODONE (immediate release) (ROXICODONE) tablet 5-15 mg, 5-15 mg, oral, Q3H PRN polyethylene glycol (MIRALAX) powder 34 g, 34 g, oral, TID PRN senna-docusate (SENOKOT S) 8.6-50 mg 1 tablet, 1 tablet, oral, BID Impression: 24YOF with a 1.5 year hx of progressive RLE weakness and more recently new and progressive numbness. 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 Baseline RLE weakness and RLE>LLE numbness. Plan: -OR today for resection of thoracic spinal cord lesion. Pt has been consented and marked. -NPO, on MIVF -Cont Decadron 4mg q6h -APAP, Oxycodone, IV dilaudid available prn pain Raegan Doss PA-C [facility] [address] [place] [address] Polly Collins MD,MPH - 05/12/2015 7:33 PM PSTNeurosurgery Preoperative Note Planned procedure: thoracic laminectomies for resection of T5-T10 T2 hyperintense expansile intramedullary mass with enhancing component at T7-8 Date of procedure: 05/13/15 Booked? Yes Consented? Yes Marked? Yes NPO time: 0015 Labs/Studies Hct: 37 Plt: 318 WBC: 9 Na: 141 K: 3.5 Type and Screen obtained? Yes If over 50, EKG obtained this admission (Yes/No/NA)? NA If over 50, CXR obtained this admission (Yes/No/NA)? NA Medications If on Lovenox, stopped the day prior to surgery (Yes/No/NA)? NA On ASA or other antiplatelet agent? No documented in t his encounter Plan of Treatment +--------+ + + [...] | | | | | | [place], [place] | | | | | | [address] | | | | | | [phone] | | | | | | | | +--------+ + + + + | 12/10/ | Office | Neurological Surgery | April Beck MD | | | 2019 | Visit | | [address] | | | | | | [address] | | | | | | [place], [place] | | | | | | [address] | | | | | | [phone] | | | | | | | | +--------+ + + + + + +---------+--------+ + + | Name | Type | Priori | Associated Diagnoses | Date/Time | | | | ty | | | + +---------+--------+ + + | OR FLUOROSCOPY > 1 | Imaging | Routin | | 05/13/2015 8:33 PM | | HOUR | | e | | PST | + +---------+--------+ + + + +---------+--------+ + + | Name | Type | Priori | Associated Diagnoses | Order Schedule | | | | ty | | | + +---------+--------+ + + | OR FLUOROSCOPY > 1 | Imaging | Routin | | One Time for 1 | | HOUR | | e | | Occurrences starting | | | | | | 05/13/2015 until | | | | | | 05/13/2015 | + +---------+--------+ + + documented as of this encounter Procedures + +--------+ + + + | Procedure Name | Priori | Date/Time | Associated Diagnosis | Comments | | | ty | | | | + +--------+ + + + | PROCEDURE NOTE | Routin | 08/12/2015 | | Results for this | | | e | 11:39 AM | | procedure are in the | | | | PST | | results section. | + +--------+ + + + | PROCEDURE NOTE | Routin | 08/12/2015 | | Results for this | | | e | 11:38 AM | | procedure are in the | | | | PST | | results section. | + +--------+ + + + | PROCEDURE NOTE | Routin | 08/12/2015 | | Results for this | | | e | 11:38 AM | | procedure are in the | | | | PST | | results section. | + +--------+ + + + | PROCEDURE NOTE | Routin | 08/12/2015 | | Results for this | | | e | 11:38 AM | | procedure are in the | | | | PST | | results section. | + +--------+ + + + | PROCEDURE NOTE | Routin | 08/12/2015 | | Results for this | | | e | 11:38 AM | | procedure are in the | | | | PST | | results section. | + +--------+ + + + | OPERATION RECORD | | 05/18/2015 | | Results for this | | | | 2:39 PM | | procedure are in the | | | | PST | | results section. | + +--------+ + + + | CBC (HEMOGRAM) ONLY | Routin | 05/17/2015 | | Results for this | | | e | 10:09 AM | | procedure are in the | | | | PST | | results section. | + +--------+ + + + | BASIC METABOLIC SET | Routin | 05/17/2015 | | Results for this | | (NA, K, CL, TCO2, | e | 10:09 AM | | procedure are in the | | BUN, CR, GLU, CA) | | PST | | results section. | + +--------+ + + + | CBC ONLY | Routin | 05/17/2015 | | Results for this | | | e | 10:09 AM | | procedure are in the | | | | PST | | results section. | + +--------+ + + + | MAGNESIUM, PLASMA | Routin | 05/17/2015 | | Results for this | | | e | 10:09 AM | | procedure are in the | | | | PST | | results section. | + +--------+ + + + | VASC LAB VENOUS | Urgent | 05/16/2015 | | Results for this | | DUPLEX LOWER | | 3:08 PM | | procedure are in the | | EXTREMITY BILAT COMP | | PST | | results section. | + +--------+ + + + | BASIC METABOLIC SET | Routin | 05/16/2015 | | Results for this | | (NA, K, CL, TCO2, | e | 1:20 PM | | procedure are in the | | BUN, CR, GLU, CA) | | PST | | results section. | + +--------+ + + + | MAGNESIUM, PLASMA | Routin | 05/16/2015 | | Results for this | | | e | 1:20 PM | | procedure are in the | | | | PST | | results section. | + +--------+ + + + | CBC (HEMOGRAM) ONLY | Urgent | 05/15/2015 | | Results for this | | | | 8:52 AM | | procedure are in the | | | | PST | | results section. | + +--------+ + + + | BASIC METABOLIC SET | Urgent | 05/15/2015 | | Results for this | | (NA, K, CL, TCO2, | | 8:52 AM | | procedure are in the | | BUN, CR, GLU, CA) | | PST | | results section. | + +--------+ + + + | CBC ONLY | Urgent | 05/15/2015 | | Results for this | | | | 8:52 AM | | procedure are in the | | | | PST | | results section. | + +--------+ + + + | MAGNESIUM, PLASMA | Routin | 05/15/2015 | | Results for this | | | e | 8:52 AM | | procedure are in the | | | | PST | | results section. | + +--------+ + + + | OUTSIDE NEURO SPINE | Urgent | 05/14/2015 | | Results for this | | - READ REQUEST | | 10:32 AM | | procedure are in the | | | | PST | | results section. | + +--------+ + + + | CBC (HEMOGRAM) ONLY | Urgent | 05/14/2015 | | Results for this | | | | 4:48 AM | | procedure are in the | | | | PST | | results section. | + +--------+ + + + | CBC ONLY | Urgent | 05/14/2015 | | Results for this | | | | 4:48 AM | | procedure are in the | | | | PST | | results section. | + +--------+ + + + | RENAL FUNCTION SET | Urgent | 05/14/2015 | | Results for this | | (NA,K,CL,CO2,BUN,CRE | | 2:40 AM | | procedure are in the | | AT,GLUC,CA,PHOS,ALB | | PST | | results section. | | ) | | | | | + +--------+ + + + | MAGNESIUM, PLASMA | Urgent | 05/14/2015 | | Results for this | | | | 2:40 AM | | procedure are in the | | | | PST | | results section. | + +--------+ + + + | MRI SPINE THORACIC | Urgent | 05/14/2015 | | Results for this | | WWO CONT | | 12:07 AM | | procedure are in the | | | | PST | | results section. | + +--------+ + + + | RESECTION OF SPINAL | Electi | 05/13/2015 | Weakness of right | | | CORD TUMOR | ve | 3:08 PM | lower extremity | | | | Surgic | PST | Neoplasm of | | | | al | | uncertain behavior | | | | | | of spinal cord ([facility]) | | + +--------+ + + + +---+--------+ | | | | | Specia | | | l | | | Needs | | | WILL | | | NEED | | | FROZEN | | | | | | PATHOL | | | OGY | | | EVALUA | | | TION | | | INTRAO | | | PERATI | | | VELY; | | | ICU | | | POST | +---+--------+ + +--------+ + +---+ | THORACIC LAMINOTOMY | Electi | 05/13/2015 | Weakness of right | | | | ve | 3:08 PM | lower extremity | | | | Surgic | PST | Neoplasm of | | | | al | | uncertain behavior | | | | | | of spinal cord ([facility]) | | + +--------+ + +---+ +---+--------+ | | | | | Specia | | | l | | | Needs | | | WILL | | | NEED | | | FROZEN | | | | | | PATHOL | | | OGY | | | EVALUA | | | TION | | | INTRAO | | | PERATI | | | VELY; | | | ICU | | | POST | +---+--------+ + +--------+ +---+ + | CBC (HEMOGRAM) ONLY | Routin | 05/13/2015 | | Results for this | | | e | 6:48 AM | | procedure are in the | | | | PST | | results section. | + +--------+ +---+ + | BASIC METABOLIC SET | Routin | 05/13/2015 | | Results for this | | (NA, K, CL, TCO2, | e | 6:48 AM | | procedure are in the | | BUN, CR, GLU, CA) | | PST | | results section. | + +--------+ +---+ + | CBC ONLY | Routin | 05/13/2015 | | Results for this | | | e | 6:48 AM | | procedure are in the | | | | PST | | results section. | + +--------+ +---+ + | IDH1 & IDH2 | Routin | 05/13/2015 | | Results for this | | | e | | | procedure are in the | | | | | | results section. | + +--------+ +---+ + | BRAF MUTATION | Routin | 05/13/2015 | | Results for this | | ANALYSIS (EXON 15) | e | | | procedure are in the | | | | | | results section. | + +--------+ +---+ + | INTRAOPERATIVE NEURO | Routin | 05/13/2015 | | Results for this | | MONITORING | e | | | procedure are in the | | | | | | results section. | + +--------+ +---+ + | CYTOGENETICS REPORT | Routin | 05/13/2015 | | Results for this | | | e | | | procedure are in the | | | | | | results section. | + +--------+ +---+ + | SURGICAL PATHOLOGY | Routin | 05/13/2015 | | Results for this | | | e | | | procedure are in the | | | | | | results section. | + +--------+ +---+ + | X-RAY SPINE ENTIRE | Urgent | 05/12/2015 | | Results for this | | 36" LATERAL, 1 VIEW | | 9:49 PM | | procedure are in the | | | | PST | | results section. | + +--------+ +---+ + | ANTIBODY SCREEN | Urgent | 05/12/2015 | | Results for this | | | | 8:31 PM | | procedure are in the | | | | PST | | results section. | + +--------+ +---+ + | TYPE AND SCREEN | Urgent | 05/12/2015 | | Results for this | | | | 8:31 PM | | procedure are in the | | | | PST | | results section. | + +--------+ +---+ + | ABO & RH TYPE | Urgent | 05/12/2015 | | Results for this | | | | 8:31 PM | | procedure are in the | | | | PST | | results section. | + +--------+ +---+ + | CBC (HEMOGRAM) ONLY | Routin | 05/12/2015 | | Results for this | | | e | 8:28 PM | | procedure are in the | | | | PST | | results section. | + +--------+ +---+ + | CBC ONLY | Routin | 05/12/2015 | | Results for this | | | e | 8:28 PM | | procedure are in the | | | | PST | | results section. | + +--------+ +---+ + | PORTILLO CARO ONLY | Routin | 05/12/2015 | | Results for this | | | e | 8:22 PM | | procedure are in the | | | | PST | | results section. | + +--------+ +---+ + | INR | Routin | 05/12/2015 | | Results for this | | | e | 7:53 PM | | procedure are in the | | | | PST | | results section. | + +--------+ +---+ + | BASIC METABOLIC SET | Routin | 05/12/2015 | | Results for this | | (NA, K, CL, TCO2, | e | 7:53 PM | | procedure are in the | | BUN, CR, GLU, CA) | | PST | | results section. | + +--------+ +---+ + | APTT (ACT. PART. | Routin | 05/12/2015 | | Results for this | | THROMBO TIME) | e | 7:53 PM | | procedure are in the | | | | PST | | results section. | + +--------+ +---+ + | CARDIOLOGY | | 05/12/2015 | | Results for this | | | | 12:00 AM | | procedure are in the | | | | PST | | results section. | + +--------+ +---+ + | CARDIOLOGY | | 05/12/2015 | | Results for this | | | | 12:00 AM | | procedure are in the | | | | PST | | results section. 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 T6-T7 laminectomy | | for resection of tumor.2. Use of high-powered intraoperative microscope.3. Use and | | interpretation of intraoperative fluoroscopy.4. Intraoperative monitoring using SSEP and | | MEP.Estimated Blood Loss: 500 mL.Specimens: 1. Intramedullary spinal cord tumor sent | | for frozen section.2. Enhancing intramedullary spinal cord tumor sent for frozen | | permanent section.Complications: None.Drains: None.Anesthesia: General endotracheal | | anesthesia.Intraoperative Findings: There were noted to be intermittent improvements in | | the right lower extremity motor potentials during the case. These returned to baseline | | which were absent at the case end. 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 She also endorsed worsening right lower extremity weakness. She | | underwent MRI which demonstrated an intramedullary spinal cord lesion with a focal area | | of contrast enhancement. Given her clinical history and imaging findings, she was | | therefore indicated for the above procedure.Procedure In Detail: After discussion of | | the indications, risks, alternatives, and potential benefits with the patient and her | | family, a signed consent form was obtained and placed in the patient's chart. She was | | properly identified in the preoperative area and brought to the operating room. General | | endotracheal anesthesia was induced on the [employer]. Occlusive dressings were | | placed over the patient's eyes and face. She was then carefully turned prone onto a | | Hair frame. All pressure points were appropriately padded. A Antonio Hugger was placed | | over her body to maintain core body temperature. X-ray was used to localize an | | approach to the midthoracic spine and the proposed midline incision was marked with a | | marking pen. The patient's back was then prepped and draped in the usual sterile | | fashion. An appropriate team pause was held and the patient received preoperative | | antibiotics. We also confirmed appropriate patient, position, and procedure. Under | | loupe magnification and headlight illumination, incision made through the skin using a | | #10 blade. Dissection carried down to the dorsal thoracic fascia using monopolar | | electrocautery. Subperiosteal dissection was carried out over the spinous processes and | | lamina bilaterally and a large cerebellar retractor was used to maintain open the | | incision. Once the bony exposure was complete, we then proceeded with laminectomy. A | | trough was drilled through each lamina on either side using a 3 mm matchstick drill bit | | on the high-speed pneumatic drill. The lamina were then lifted off and discarded. Once | | the dura was exposed, the epidural venous plexus was cauterized using bipolar | | electrocautery. Hemostasis was achieved along the lateral gutters using Surgiflo and | | bone wax. We then brought in the operative microscope. Under microscopic visualization, | | the dura was opened in the midline using a #15 blade. The dura was tented using 4-0 | | Surgilon suture and the weight of a hemostatic clamp. We noted an expanded spinal cord. | | The midline was identified and the gael was cauterized using bipolar electrocautery. | | The gael was then opened using microscissors. We were able to identify the lesion which | | was ug in color and soft in consistency. We did identify a fairly clear plane around | | the abnormal-looking tissue. Multiple samples were obtained and sent for specimen. The | | tumor was dissected away using Rhoton micro dissectors and removed using cup forceps. | | Intermittent assessment of the motor signals demonstrated slight improvement in the | | right lower extremity motor signal after dural opening. However, these signals were not | | consistent and had returned to baseline after we had completed tumor resection. Once | | we were satisfied with tumor resection, the wound was copiously irrigated. Hemostasis | | was confirmed. We then proceeded with dural closure. The dura was closed with 6-0 | | Prolene in a running fashion. We then applied DuraSeal to the dural closure. The | | microscope was then removed from the operative field and the remainder of the wound was | | closed with loupe magnification. The paraspinal musculature was reapproximated using 0 | | Vicryl suture in an interrupted fashion. The dorsal thoracic fascia was closed with 0 | | Vicryl suture in an inner interrupted fashion. Oliver layer was closed with 2-0 Vicryl | | suture in an interrupted fashion. The dermis was closed with 3-0 Vicryl suture in an | | inverted interrupted fashion. The skin was closed with 4-0 Velosorb in a running | | fashion. The incision was washed and dried. We applied Mepilex dressing to the | | incision. The drapes were taken down. The patient was carefully turned back supine on | | the [employer]. She was extubated and she was taken to the recovery area in stable | | condition. At the end of the case, all instrument, sponge, and needle counts were | | correct in 2 iterations. Rajinder Enamorado MD was scrubbed and actively participated | | performing the critical portions of the operation.Rajinder Luis MDJJL/MODLDD: | | 05/15/2015 08:21:01DT: 05/15/2015 08:59:43Job #: [id number] | | | |Rajinder Luis MD | |EZEKIEL/KELSEYL | | | | | | /[id number] | + + MAGNESIUM, PLASMA (05/17/2015 10:09 AM PST) + +-------+ + + + | Component | Value | Ref Range | Performed | Pathologist | | | | | At | Signature | + +-------+ + + + | MAGNESIUM,P | 2.0 | 1.8 - 2.5 mg/dL | [facility] | | | LASMA [...] | + + + + + | [facility] | [address] | [place] [address] | | | SERVICES, CORE | [address] | | | + + + + + CBC (HEMOGRAM) ONLY (05/17/2015 10:09 AM PST) + + + + + + | Component | Value | Ref Range | Performed | Pathologist | | | | | At | Signature | + + + + + + | WHITE CELL | 13.44 (H) | 4.40 - 11.00 | [facility] | | | COUNT | | K/cu mm | LABORATORY | | | | | | SERVICES, | | | | | | CORE | | + + + + + + | RED CELL | 4.36 | 4.00 - 5.20 | [facility] | [...] + + + + | HEMATOCRIT | 37.1 | 36.0 - 46.0 % | [facility] | | | | | | LABORATORY | | | | | | SERVICES, | | | | | | CORE | | + + + + + + | MCV | 85.1 | 80.0 - 96.0 fL | [facility] | | | | | | LABORATORY | | | | | | SERVICES, | | | | | | CORE | | + + + + + + | MCHC | 31.3 | 33.0 - 35.5 | [facility] | | | | | g/dL | LABORATORY | | | | | | SERVICES, | | | | | | CORE | | + + + + + + | RDW SD | 43.8 | 35.1 - 46.3 fL | [facility] | | | | | | LABORATORY | | | | | | SERVICES, | | | | | | CORE | | + + + + + + | PLATELET | 343 | 150 - 400 K/cu | [facility] | | | COUNT | | mm | LABORATORY | | | | | | SERVICES, | | | | | | CORE | | + + + + + + | MPV | 10.0 | 9.7 - 12.3 fL | [facility] [...] + + | [facility] | [address] | [place] [address] | | | SERVICES, CORE | [address] | | | + + + + + BASIC METABOLIC SET (NA, K, CL, TCO2, BUN, CR, GLU, CA) (05/17/2015 10:09 AM PST) + +---------+ + + + | Component | Value | Ref Range | Performed | Pathologist | | | | | At | Signature | + +---------+ + + + | GLUCOSE, | 85 | 60 - 99 mg/dL | [facility] [...] +---------+ + + + | CREATININE | 0.67 | 0.60 - 1.10 | [facility] | | | PLASMA | | mg/dL | LABORATORY | | | (LAB) | | | SERVICES, | | | | | | CORE | | + +---------+ + + + | EGFR | >60 | >60 mL/min | [facility] | | | - | | | LABORATORY | | | SYRIAN | | | SERVICES, | | | | | | CORE | | + +---------+ + + + | EGFR NON | >60 | >60 mL/min | [facility] | | | -LEXIE | | | LABORATORY | | | RICAN | | | SERVICES, | | | | | | CORE | | + +---------+ + + + | SODIUM, | 136 | 136 - 145 | [facility] | | | PLASMA | | mmol/L | LABORATORY | | | (LAB) | | | SERVICES, | | | | | | CORE | | + +---------+ + + + | POTASSIUM, | 3.8 | 3.4 - 5.0 | [facility] | | | PLASMA | | mmol/L | LABORATORY | | | (LAB) | | | SERVICES, | | | | | | CORE | | + +---------+ + + + | CHLORIDE, | 100 | 97 - 108 mmol/L | [facility] [...] +---------+ + + + | CALCIUM, | 9.2 | 8.6 - 10.2 | [facility] | | | PLASMA | | mg/dL | LABORATORY | | | (LAB) | | | SERVICES, | | | | | | CORE | | + +---------+ + + + | ANION GAP | 5 | mmol/L | [facility] | | | [...] the MDRD equation recommended by the | [facility] | | National Kidney Disease Education Program. [...] | + + + + + | [facility] | [address] | [place] [address] | | | SERVICES, CORE | [address] | | | + + + + + VASC LAB VENOUS DUPLEX LOWER EXTREMITY BILAT COMP (05/16/2015 3:08 PM PST) + + + + + + | Component | Value | Ref Range | Performed | Pathologist | | | | | At | Signature | + + + + + + | VASC LAB | Bilateral: The duplex | | | | | VENOUS | scanner was used to | | | | | DUPLEX | examine the deep and | | | | | LOWER | superficialveins of the | | | | | EXTREMITY | right and left lower | | | | | BILATERAL | extremities. The | | | | | COMPLETE | veins are | | | | | | patentbilaterally with | | | | | | normal flows and | | | | | | responses to | | | | | | augmentation and | | | | | | compressionmaneuvers and | | | | | | no thrombus is noted. | | | | | | Conclusions: A normal | | | | | | venous examination of | | | | | | the bilateral lower | | | | | | extremities. Novenous | | | | | | thrombosis was detected. | | | | | | Attending | | | | | | Radiologists: KOREY | | | | | | DERECK SHELBYuthor: | | | | | | KOREY SHELBY MD I | | | | | | have personally viewed | | | | | | this procedure/exam, | | | | | | reviewed this report, | | | | | | and madechanges to it | | | | | | where appropriate. | | | | | | Final/Electronically | | | | | | signed / KOREY | | | | | | HERON 05/17/2015 6:31 | | | | | | AM Preliminary / | | | | | | KOREY SHELBY | | | | | | 05/16/2015 15:00 PM | | | | + + + + + + + + | Specimen | + + | | + + + +---------+ + + | Performing | Address | City/State/Zipcode | Phone Number | | Organization | | | | + +---------+ + + | [facility] | | | | | RADIOLOGY | | | | + +---------+ + + MAGNESIUM, PLASMA (05/16/2015 1:20 PM PST) + +---------+ + + + | Component | Value | Ref Range | Performed | Pathologist | | | | | At | Signature | + +---------+ + + + | MAGNESIUM,P | 1.6 (L) | 1.8 - 2.5 mg/dL | [facility] | | | LASMA [...] + + | [facility] | [address] | [place] [address] | | | SERVICES, CORE | [address] | | | + + + + + BASIC METABOLIC SET (NA, K, CL, TCO2, BUN, CR, GLU, CA) (05/16/2015 1:20 PM PST) + +---------+ + + + | Component | Value | Ref Range | Performed | Pathologist | | | | | At | Signature | + +---------+ + + + | GLUCOSE, | 108 (H) | 60 - 99 mg/dL | [...] +---------+ + + + | CREATININE | 0.67 | 0.60 - 1.10 | [facility] | | | PLASMA | | mg/dL | LABORATORY | | | (LAB) | | | SERVICES, | | | | | | CORE | | + +---------+ + + + | EGFR | >60 | >60 mL/min | [facility] | | | - | | | LABORATORY | | | SYRIAN | | | SERVICES, | | | [...] +---------+ + + + | POTASSIUM, | 3.4 | 3.4 - 5.0 | [facility] | | | PLASMA | | mmol/L | LABORATORY | | | (LAB) | | | SERVICES, | | | | | | CORE | | + +---------+ + + + | CHLORIDE, | 101 [...] +---------+ + + + | CALCIUM, | 8.7 | 8.6 - 10.2 | [facility] | [...] the MDRD equation recommended by the | [facility] | | National Kidney Disease Education Program. Estimated GFR | LABORATORY | | Interpretive Information: <60 mL/min/1.73 sq m | [facility] | | Chronic Kidney Disease <15 mL/min/1.73 [...] | + + + + + | [facility] | [address] | [place] [address] | | | SERVICES, CORE | [address] RD | | | + + + + + CBC (HEMOGRAM) ONLY (05/15/2015 8:52 AM PST) + + + + + + | Component | Value | Ref Range | Performed | Pathologist | | | | | At | Signature | + + + + + + | WHITE CELL | 16.42 (H) | 4.40 - 11.00 | [facility] | | | COUNT | | K/cu mm | LABORATORY | | | | | | SERVICES, | | | | | | CORE | | + + + + + + | RED CELL | 4.17 | 4.00 - 5.20 | [facility] | | | COUNT | | M/cu mm | LABORATORY | | | | | | SERVICES, | | | | | | CORE | | + + + + + + | HEMOGLOBIN | 11.1 (L) | 12.0 - 16.0 | [facility] | | | | | g/dL | LABORATORY | | | | | | SERVICES, | | | | | | CORE | | + + + + + + | HEMATOCRIT | 35.1 (L) | 36.0 - 46.0 % | [facility] | | | | | | LABORATORY | | | | | | SERVICES, | | | | | | CORE | | + + + + + + | MCV | 84.2 | 80.0 - 96.0 fL | [facility] | | | | | | LABORATORY | | | | | | SERVICES, | | | | | | CORE | | + + + + + + | MCHC | 31.6 | 33.0 - 35.5 | [facility] | | | | | g/dL | LABORATORY | | | | | | SERVICES, | | | | | | CORE | | + + + + + + | RDW SD | 44.5 | 35.1 - 46.3 fL | [facility] | | | | | | LABORATORY | | | | | | SERVICES, | | | | | | CORE | | + + + + + + | PLATELET | 277 | 150 - 400 K/cu | [facility] [...] [facility] | [address] | [place] [address] | | | SERVICES, CORE | [address] | | | + + + + + MAGNESIUM, PLASMA (05/15/2015 8:52 AM PST) + +-------+ + + + | Component | Value | Ref Range | Performed | Pathologist | | | | | At | Signature | + +-------+ + + + | MAGNESIUM,P | 2.0 | 1.8 - 2.5 mg/dL | [facility] | | | LASMA [...] LABORATORY | [address] | [place] [address] | | | SERVICES, CORE | [address] | | | + + + + + BASIC METABOLIC SET (NA, K, CL, TCO2, BUN, CR, GLU, CA) (05/15/2015 8:52 AM PST) + +---------+ + + + | Component | Value | Ref Range | Performed | Pathologist | | | | | At | Signature | + +---------+ + + + | GLUCOSE, | 108 (H) | 60 - 99 mg/dL | [...] +---------+ + + + | CREATININE | 0.65 | 0.60 - 1.10 | [facility] | | | PLASMA | | mg/dL | LABORATORY | | | (LAB) | | | SERVICES, | | | | | | CORE | | + +---------+ + + + | EGFR | >60 | >60 mL/min | [facility] | | | - | | | LABORATORY | | | [facility] | | | SERVICES, | | | [...] +---------+ + + + | CHLORIDE, | 105 | 97 - 108 mmol/L | [facility] | | | PLASMA | | | LABORATORY | | | (LAB) | | | SERVICES, | | | | | | CORE | | + +---------+ + + + | TOTAL CO2, | 29 | 21 - 32 mmol/L | [facility] | | | PLASMA | | | LABORATORY | | | (LAB) | | | SERVICES, | | | | | | CORE | | + +---------+ + + + | CALCIUM, | 8.4 (L) | 8.6 - 10.2 | [facility] | | | PLASMA | | mg/dL | LABORATORY | | | (LAB) | | | SERVICES, | | | | | | CORE | | + +---------+ + + + | ANION GAP | 5 | mmol/L | [facility] | | | [...] | + + + + + | [facility] | [address] | [place] [address] | | | [facility] | [address] | | | + + + + + OUTSIDE NEURO SPINE - READ REQUEST (05/14/2015 10:32 AM PST) + + + + + + | Component | Value | Ref Range | Performed | Pathologist | | | | | At | Signature | + + + + + + | OUTSIDE | EXAM: [facility] professional | | | | | NEURO SPINE | interpretation of | | | | | | outside study: MRI | | | | | | thoracic spinewithout | | | | | | and with contrast DATE | | | | | | OF IMAGE ACQUISITION: | | | | | | 05/06/15 HISTORY: 1.5 | | | | | | years of progressively | | | | | | worsening right lower | | | | | | extremity numbness. | | | | | | COMPARISON: MRI lumbar | | | | | | spine 04/29/15 | | | | | | TECHNIQUE: Multiplanar | | | | | | [...] | | | | | | cord: An expansile T2 | | | | | | hyperintense mass | | | | | | appears | | | | | | intramedullary,extends | | | | | | from about the T4-5 | | | | | | level to the mid T10 | | | | | | level, with additional | | | | | | areasof T2 | | | | | | hyperintensity within | | | | | | the central aspects of | | | | | | the spinal cord | | | | | | extending upto about mid | | | | | | T3 and down to mid T11. | | | | | | The mass is a little | | | | | | eccentric to theright, | | | | | | and expands the cord to | | | | | | fill the spinal canal | | | | | | from T5-T10. A ring | | | | | | ofenhancement is seen at | | | | | | the T7-T8 level | | | | | | measuring approximately | | | | | | 15 mmcraniocaudal by 7 | | | | | | mm AP by 7 mm | | | | | | transverse, located in | | | | | | the right aspect ofcord. | | | | | | No hemosiderin | | | | | | staining. Paraspinal | | | | | | soft tissues: | | | | | | Unremarkable IMPRESSION: | | | | | | Spinal cord mass from | | | | | | T4-5 to mid T10 levels, | | | | | | expanding the cord and | | | | | | fillingthe spinal canal, | | | | | | asymmetric to the | | | | | | right. Up to 1.5 cm | | | | | | focus of | | | | | | enhancementwithin the | | | | | | spinal cord at the T7-8 | | | | | | level. 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 Attending | | | | | | Radiologists: JENNIFER | | | | | | DERECK ODENuthor: | | | | | | JENNIFER ODEN MD I | | | | | | have personally viewed | | | | | | this procedure/exam, | | | | | | reviewed this report, | | | | | | and madechanges to it | | | | | | where appropriate. | | | | | | Final/Electronically | | | | | | baldemar / JENNIFER | | | | | | CECILLE 05/18/2015 | | | | | | 12:01 PM | | | | + + + + + + + + | Specimen | + + | | + + + +---------+ + + | Performing | Address | City/State/Zipcode | Phone Number | | Organization | | | | + +---------+ + + | [facility] | | | | | [facility] | | | | + +---------+ + + CBC (HEMOGRAM) ONLY (05/14/2015 4:48 AM PST) + + + + + + | Component | Value | Ref Range | Performed | Pathologist | | | | | At | Signature | + + + + + + | WHITE CELL | 23.58 (H) | 4.40 - 11.00 | [facility] | | | COUNT | | K/cu mm | LABORATORY | | | | | | SERVICES, | | | | | | CORE | | + + + + + + | RED CELL | 3.99 (L) | 4.00 - 5.20 | [facility] | | | COUNT | | M/cu mm | LABORATORY | | | | | | SERVICES, | | | | | | CORE | | + + + + + + | HEMOGLOBIN | 10.8 (L) | 12.0 - 16.0 | [facility] | | | | | g/dL | LABORATORY | | | | | | SERVICES, | | | | | | CORE | | + + + + + + | HEMATOCRIT | 33.6 (L) | 36.0 - 46.0 % | [facility] | | | | | | LABORATORY | | | | | | SERVICES, | | | | | | CORE | | + + + + + + | MCV | 84.2 | 80.0 - 96.0 fL | [facility] [...] + + + | RDW SD | 43.3 | 35.1 - 46.3 fL | [facility] | | | | | | LABORATORY | | | | | | SERVICES, | | | | | | CORE | | + + + + + + | PLATELET | 294 | 150 - 400 K/cu | [facility] [...] | + + + + + | [facility] | [address] | [place] [address] | | | SERVICES, CORE | [address] | | | + + + + + MAGNESIUM, PLASMA (05/14/2015 2:40 AM PST) + +---------+ + + + | Component | Value | Ref Range | Performed | Pathologist | | | | | At | Signature | + +---------+ + + + | MAGNESIUM,P | 1.1 (L) | 1.8 - 2.5 mg/dL | [facility] | | | LASMA | | | [...] | + + + + + | [facility] | [address] | [place] [address] | | | SERVICES, CORE | [address] | | | + + + + + RENAL FUNCTION SET (NA,K,CL,CO2,BUN,CREAT,GLUC,CA,PHOS,ALB ) (05/14/2015 2:40 AM PST) + + + + + + | Component | Value | Ref Range | Performed | Pathologist | | | | | At | Signature | + + + + + + | GLUCOSE, | 121 (H) | 60 - 99 mg/dL | [...] + + + + | CREATININE | 0.48 (L) | 0.60 - 1.10 | [facility] | | | PLASMA | | mg/dL | LABORATORY | | | (LAB) | | | SERVICES, | | | | | | CORE | | + + + + + + | EGFR | >60 | >60 mL/min | [facility] | | | - | | | LABORATORY | | | [facility] | | | SERVICES, | | | | | | CORE | | + + + + + + | EGFR NON | >60 | >60 mL/min | [facility] | | | -LEXIE | | | LABORATORY | | | RICAN | | | SERVICES, | | | | | | CORE | | + + + + + + | SODIUM, | 143 | 136 - 145 | [facility] | | | PLASMA | | mmol/L | LABORATORY | | | (LAB) | | | SERVICES, | | | | | | CORE | | + + + + + + | POTASSIUM, | 3.2 (L) | 3.4 - 5.0 | [facility] | | | PLASMA | | mmol/L | LABORATORY | | | (LAB) | | | SERVICES, | | | | | | CORE | | + + + + + + | CHLORIDE, | 116 (H) | 97 - 108 mmol/L | [facility] | | | PLASMA | | | LABORATORY | | | (LAB) | | | SERVICES, | | | | | | CORE | | + + + + + + | TOTAL CO2, | 19 (L) | 21 - 32 mmol/L | [facility] | | | PLASMA | | | LABORATORY | | | (LAB) | | | SERVICES, | | | | | | CORE | | + + + + + + | CALCIUM, | 6.1 (LL) | 8.6 - 10.2 | [facility] | | | PLASMA | | mg/dL | LABORATORY | | | (LAB) | | | SERVICES, | | | | | | CORE | | + + + + + + | ALBUMIN, | 2.0 (L) | 3.5 - 4.7 g/dL | [facility] | | | PLASMA | | | LABORATORY | | | (LAB) | | | SERVICES, | | | | | | CORE | | + + + + + + | PHOSPHORUS, | 2.6 | 2.4 - 4.7 mg/dL | [facility] [...] + + + + | ANION | 13 (H) | 4 - 11 mmol/L | [facility] [...] the MDRD equation recommended by the | [facility] | | National Kidney Disease Education Program. [...] | + + + + + | [facility] | [address] | [place] [address] | | | SERVICES, CORE | [address] | | | + + + + + MRI SPINE THORACIC WWO CONTRAST (05/14/2015 12:07 AM PST) + + + + + + | Component | Value | Ref Range | Performed | Pathologist | | | | | At | Signature | + + + + + + | MR THORACIC | EXAM: MRI thoracic spine | | | | | SPINE WWO | without and with | | | | | CONTRAST | contrast HISTORY: Spinal | | | | | | tumor, post operative | | | | | | COMPARISON: 05/06/15 | | | | | | TECHNIQUE: Multiplanar | | | | | | multi-sequence MRI | | | | | | thoracic spine without | | | | | | and with mlGadavist | | | | | | intravenous contrast. | | | | | | FINDINGS: Alignment: | | | | | | Normal Marrow: Normal | | | | | | for age New | | | | | | postoperative changes of | | | | | | T5-7 laminectomies and | | | | | | intramedullary cord | | | | | | massresection. There | | | | | | is residual patchy | | | | | | enhancements at T7 and | | | | | | T8 (sagittalpostcontrast | | | | | | image 8). There is | | | | | | extensive expansile T2 | | | | | | hyperintensity in | | | | | | thecord extending from | | | | | | T2-11, unchanged since | | | | | | prior. No new abnormal | | | | | | cord signal. | | | | | | Paraspinal soft | | | | | | tissues: Postoperative | | | | | | edema in the posterior | | | | | | paraspinal softtissues. | | | | | | IMPRESSION: | | | | | | Postoperative changes of | | | | | | the thoracic spinal | | | | | | cord following mass | | | | | | resection.Focal residual | | | | | | enhancement persists in | | | | | | the cord at T7-8, | | | | | | concerning forresidual | | | | | | disease. Recommend | | | | | | attention on follow-up. | | | | | | There is | | | | | | unchangedextensive T2 | | | | | | hyperintensity | | | | | | throughout the thoracic | | | | | | cord. Attending | | | | | | Radiologists: MAKENNA | | | | | | DERECK ADDISONuthor: | | | | | | NAILA BARNES MD I have | | | | | | personally viewed this | | | | | | procedure/exam, reviewed | | | | | | this report, and | | | | | | madechanges to it where | | | | | | appropriate. | | | | | | Final/Electronically | | | | | | baldemar / MAKENNA | | | | | | CYN 05/14/2015 | | | | | | 15:41 PM | | | | + + + + + + + + | Specimen | + + | | + + + +---------+ + + | Performing | Address | City/State/Zipcode | Phone Number | | Organization | | | | + +---------+ + + | [facility] | | | | | RADIOLOGY | | | | + +---------+ + + CBC (HEMOGRAM) ONLY (05/13/2015 6:48 AM PST) + + + + + + | Component | Value | Ref Range | Performed | Pathologist | | | | | At | Signature | + + + + + + | WHITE CELL | 20.20 (H) | 4.40 - 11.00 | [facility] | | | COUNT | | K/cu mm | LABORATORY | | | | | | SERVICES, | | | | | | CORE | | + + + + + + | RED CELL | 4.76 | 4.00 - 5.20 | [facility] | [...] + + + + | HEMATOCRIT | 40.0 | 36.0 - 46.0 % | [facility] | | | | | | LABORATORY | | | | | | SERVICES, | | | | | | CORE | | + + + + + + | MCV | 84.0 | 80.0 - 96.0 fL | [facility] | | | | | | LABORATORY | | | | | | SERVICES, | | | | | | CORE | | + + + + + + | MCHC | 31.5 | 33.0 - 35.5 | [facility] | | | | | g/dL | LABORATORY | | | | | | SERVICES, | | | | | | CORE | | + + + + + + | RDW SD | 43.9 | 35.1 - 46.3 fL | [facility] | | | | | | LABORATORY | | | | | | SERVICES, | | | | | | CORE | | + + + + + + | PLATELET | 364 | 150 - 400 K/cu | [facility] [...] + + | [facility] | [address] | [place] [address] | | | SERVICES, CORE | [address] | | | + + + + + BASIC METABOLIC SET (NA, K, CL, TCO2, BUN, CR, GLU, CA) (05/13/2015 6:48 AM PST) + +---------+ + + + | Component | Value | Ref Range | Performed | Pathologist | | | | | At | Signature | + +---------+ + + + | GLUCOSE, | 142 (H) | 60 - 99 mg/dL | [...] +---------+ + + + | CREATININE | 0.64 | 0.60 - 1.10 | [facility] | | | PLASMA | | mg/dL | LABORATORY | | | (LAB) | | | SERVICES, | | | | | | CORE | | + +---------+ + + + | EGFR | >60 | >60 mL/min | [facility] | | | - | | | LABORATORY | | | [facility]AN | | | SERVICES, | | | [...] +---------+ + + + | CHLORIDE, | 107 | 97 - 108 mmol/L | [facility] | | | PLASMA | | | LABORATORY | | | (LAB) | | | SERVICES, | | | | | | CORE | | + +---------+ + + + | TOTAL CO2, | 24 | 21 - 32 mmol/L | [facility] | | | PLASMA | | | LABORATORY | | | (LAB) | | | SERVICES, | | | | | | CORE | | + +---------+ + + + | CALCIUM, | 9.3 [...] the MDRD equation recommended by the | [facility] | | National Kidney Disease Education Program. Estimated GFR | LABORATORY | | Interpretive Information: <60 mL/min/1.73 sq m | [facility] | | Chronic Kidney Disease <15 mL/min/1.73 [...] | + + + + + | [facility] | [address] | [place] [address] | | | [place] | [address] | | | + + + + + INTRAOPERATIVE NEURO MONITORING (05/13/2015) + + + | Narrative | Performed At | + + + | Patient Name: Matt Fagan Date of : 1990 | | | Date of Test: 05/13/2015 Place of | | | Service: IP Intra Op (53) [id number] INTRAOPERATIVE NEURO | | | MONITORING History: The patient is a 24 y.o. 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 Conditions of Recording: Repetitive | | | electrical stimulation of the posterior tibial nerve was performed at | | | the ankle bilaterally, with recordings over the popliteal fossa, | | | cervical spine and scalp. Repetitive electrical stimulation of | | | the ulnar nerve was performed at the wrist bilaterally, with | | | recordings over the brachial plexus, the cervical spine and the | | | scalp. To obtain transcranial electrical motor evoked potentials, | | | trains of 6 pulses with an individual pulse duration of 0.5 ms and | | | an interstimulus interval of 4 ms were delivered over the bilateral | | | central regions of the scalp. Description of recording: | | | Preoperative waveforms were obtained after general anesthesia for | | | baseline. During surgery, SSEPs were repetitively performed. | | | Following posterior tibial nerve stimulation, there was a | | | reproducible subcortical potential, N29, at latencies of | | | approximately 31.5 msec. A reproducible cortical waveform, N37, was | | | present at latencies of about 40.4 msec. Following ulnar nerve | | | stimulation, there was a cervical potential, N13, at latencies of | | | approximately 13.9 msec. The cortical waveform, N20, was present at | | | latencies of about 19.6 msec. Following transcranial | | | stimulation, there were reproducible EMG responses from the upper and | | | lower extremity muscles bilaterally. Right side lower extremity | | | SSEP and MEP responses were absent at baseline. During the tumor | | | resection, there was a transient gain of right lower extremity MEP | | | responses, as well as inconsistent and delayed but relatively | | | repeatable right lower extremity SSEP responses. Right lower | | | extremity MEP responses were absent again As the case progress with | | | tumor resection and dural closure. The surgeon was Informed of all | | | changes. Intraoperative interpretation was performed using | | | real-time display of intraoperative neurophysiologic recordings for 2 | | | hours 52 minutes (16:15-19:07). Dr. Peace was continuously | | | available for communication with the recording technologist and the | | | operative team during this time. There was full attention on this | | | case by Dr. Peace for 2 hours and 30 minutes (16:37-19:07). | | | Impression: Right lower extremity SSEP and MEP changes during tumor | | | Resection as described above Filipe Peace M.D. 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 | | + + + IDH1 & IDH2 (05/13/2015) + + + + + + | Component | Value | Ref Range | Performed | Pathologist | | | | | At | Signature | + + + + + + | IDH1 & IDH2 | A IDH1 & IDH2 MUTATION | | [facility] | | | MUTATION | ANALYSISSpecimen Type: | | DIAGNOSTIC | | | ANALYSIS | DNA from (4) Unstained | | | | | | Slides: Spinal | | LABORATORIE | | | | cordSupplemental | | S | | | | indications: Glioma | | | | | | Patient Results: | | | | | | Specimen tested: | | | | | | Intramedullary spinal | | | | | | cord lesionReported | | | | | | diagnosis: 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) IDH1 gene | | | | | | mutation screening: No | | | | | | mutation identified | | | | | | IDH2 gene mutation | | | | | | screening: No mutation | | | | | | identified IDH1 | | | | | | and IDH2 (isocitrate | | | | | | dehydrogenase 1 and 2) | | | | | | mutations are | | | | | | molecularmarkers of | | | | | | invasive gliomas of | | | | | | astrocytic and | | | | | | oligodendroglial origin, | | | | | | andmay be a predictive | | | | | | factor in secondary | | | | | | glioblastomas.1-4 | | | | | | Methods: The specimen is | | | | | | examined | | | | | | microscopically and | | | | | | tumor-rich areas | | | | | | aredissected for DNA | | | | | | extraction. Exon 2 of | | | | | | the IDH1 gene and exon 4 | | | | | | of theIDH2 gene are | | | | | | amplified by PCR and the | | | | | | products are screened | | | | | | for mutationseither by | | | | | | high-resolution melting | | | | | | curve analysis (HRM) or | | | | | | by bidirectionalSanger | | | | | | sequencing. Mutations | | | | | | suspected by HRM are | | | | | | confirmed by | | | | | | Sangersequencing. The | | | | | | estimated sensitivity of | | | | | | this method is | | | | | | approximately 20%mutant | | | | | | allele. | | | | | | References1. Nobusawa | | | | | | S, Francoise T, Ghanshyam | | | | | | P, Antonio H. IDH1 | | | | | | mutations asmolecular | | | | | | signature and predictive | | | | | | factor of secondary | | | | | | glioblastomas. | | | | | | ClinCancer Res. 2008 | | | | | | 1;15(19):0225-63. | | | | | | Edison Veloz et al. IDH1 and | | | | | | IDH2 mutations in | | | | | | gliomas. N Engl J Med. | | | | | | 2008Feb | | | | | | 19;360(8):346-404.3. | | | | | | Lewis Mai et al. | | | | | | Diagnostic use of IDH1/2 | | | | | | mutation analysis | | | | | | inroutine clinical | | | | | | testing of | | | | | | formalin-fixed, | | | | | | paraffin-embedded | | | | | | gliomatissues. J | | | | | | Neuropathol Exp Neurol. | | | | | | 2008 | | | | | | Jun;68(12):6909-159. | | | | | | Rogelio BATRES, et al. IDH1 | | | | | | mutations in low-grade | | | | | | astrocytomas | | | | | | predictsurvival but not | | | | | | response to | | | | | | temozolomide. Neurology. | | | | | | 2008 | | | | | | ;73(21):1792-5 | | | | | | (Analyte specific | | | | | | reagents are used in | | | | | | many laboratory tests | | | | | | necessary forstandard | | | | | | medical care and | | | | | | generally do not require | | | | | | FDA approval. This | | | | | | testwas developed and | | | | | | its performance | | | | | | characteristics | | | | | | determined by [facility] | | | | | | [facility] | | | | | | [facility]; CLIA # | | | | | | [id number]. It has not | | | | | | been cleared orapproved | | | | | | by the U.S. Food and | | | | | | Drug | | | | | | Administration.)Case | | | | | | reviewed by:Elmer Cardenas | | | | | | MD John / Pathologist | | | | | | Rendering | | | | | | Diagnostician: Elmer | | | | | | Barbie Lopez | | | | | | MattPathologistKaeli | | | | | | thomas Signed 06/24/2015 | | | | | | 4:28PM | | | | + + + [...] | + + + + + | [facility] | [address] | [place] [address] | | | DIAGNOSTIC | [address] | | | | LABORATORIES | | | | + + + + + CYTOGENETICS REPORT (05/13/2015) + + + + + + | Component | Value | Ref Range | Performed | Pathologist | | | | | At | Signature | + + + + + + | CHROMOSOME | Tissue Slides - FISH | | [facility] | | | REPORT | Only THIS IS AN | | DIAGNOSTIC | | | | AMENDED REPORT | | | | | | Supplemental | | LABORATORIE | | | | indications: Low-grade | | S | | | | glioma FISH | | | | | | Results: | | | | | | NormalChromosome | | | | | | Results: NoneKARYOTYPE | | | | | | RESULTS: None | | | | | | IMPRESSIONS AND | | | | | | RECOMMENDATIONS:Negative | | | | | | for BRAF rearrangement | | | | | | Fluorescent in | | | | | | situ hybridization | | | | | | (FISH) was performed | | | | | | using a BRAF | | | | | | (7q34)break-apart/ | | | | | | [id number] probe set. 50 | | | | | | interphase cells total | | | | | | were scored bytwo | | | | | | independent cytogenetic | | | | | | technologists. There | | | | | | was no evidence for | | | | | | BRAFrearrangement. | | | | | | [Note: Interphase | | | | | | FISH analysis is not | | | | | | intended to stand alone, | | | | | | but ratherto provide | | | | | | supplemental information | | | | | | to routine cytogenetic | | | | | | studies,clinical | | | | | | assessment and | | | | | | pathological findings.] | | | | | | Thank you very | | | | | | much for your referral. | | | | | | If you have any | | | | | | questions regardingthis | | | | | | report or future | | | | | | cytogenetic testing | | | | | | issues, please feel free | | | | | | tocontact us. | | | | | | FISH ANALYSIS SUMMARY: | | | | | | Cells Scored: 50 | | | | | | Probe(s): [place] | | | | | | [employer] BRAF | | | | | | break-apart (7q34) / | | | | | | [id number] (SA) (7q34) | | | | | | This test was | | | | | | developed and its | | | | | | performance determined | | | | | | by the [facility] | | | | | | Laboratory as required | | | | | | by the CLIA '88 | | | | | | regulations. It hasnot | | | | | | been cleared or | | | | | | approved for specific | | | | | | uses by the U.S. Food | | | | | | and DrugAdministration. | | | | | | The clinical | | | | | | interpretation was made | | | | | | by the clinical | | | | | | director of surgery.Amended to | | | | | | correct the date of | | | | | | service does not | | | | | | change results | | | | | | orinterpretation | | | | | | Rendering | | | | | | Diagnostician: Kristal | | | | | | Maeve GUERRA, ABMG, | | | | | | FACMGClinical | | | | | | GeneticistElectronically | | | | | | Signed 06/08/2015 | | | | | | 3:22PMRendering | | | | | | Diagnostician: Kristal | | | | | | Harry Guido, ABMG, | | | | | | FACMGClinical | | | | | | CytogeneticistElectronic | | | | | | issac Signed 06/10/2015 | | | | | | 6:31PM | | | | + + + [...] | + + + + + | [facility] | [address] | [place] [address] | | | DIAGNOSTIC | [address] | | | | LABORATORIES | | | | + + + + + BRAF MUTATION ANALYSIS (EXON 15) (05/13/2015) + + + + + + | Component | Value | Ref Range | Performed | Pathologist | | | | | At | Signature | + + + + + + | BRAF | [facility]YS[facility] | [facility] | | [facility] | (EXON 15)Specimen Type: | | DIAGNOSTIC | | | ANALYSIS | (4) Unstained Slides: | | | | | (EXON 15) | Spinal cordSupplemental | | LABORATORIE | | | | indications: Glioma | | S | | | | Patient Results: | | | | | | Specimen tested: | | | | | | Intramedullary spinal | | | | | | cord lesionReported | | | | | | diagnosis: Low-grade | | | | | | glioma BRAF gene | | | | | | mutation screening: | | | | | | Negative for mutation | | | | | | Comment: | | | | | | Alterations in the BRAF | | | | | | gene can occur in | | | | | | various low-grade | | | | | | braintumors of children | | | | | | and young adults. These | | | | | | include pilocytic | | | | | | astrocytomas,pleomorphic | | | | | | xanthoastrocytomas, | | | | | | pilomyxoid astrocytomas, | | | | | | diffuseastrocytomas and | | | | | | gangliogliomas. | | | | | | Mutation V600E type is | | | | | | more commonly seenin the | | | | | | extracerebellar | | | | | | pilocytic astrocytomas | | | | | | and pilomyxoid | | | | | | astrocytomas.Glial and | | | | | | glioneuronal tumors that | | | | | | are positive for BRAF | | | | | | V600E can besensitive to | | | | | | BRAF and MEK | | | | | | inhibitors. | | | | | | Sample QC: Tumor | | | | | | cellularity in tested | | | | | | material: 60%Methods: | | | | | | The specimen is examined | | | | | | microscopically to | | | | | | identify areas oftumor | | | | | | suitable for testing. | | | | | | The tumor is dissected, | | | | | | and DNA is | | | | | | extracted,purified and | | | | | | amplified by PCR for the | | | | | | following tests: | | | | | | Gene Exon Assays | | | | | | Sensitivity | | | | | | SpecificityBRAF 15 | | | | | | HRM or Dupont 20% | | | | | | (HRM); 1% (Kvng) | | | | | | >99%HRM: high resolution | | | | | | melting curve | | | | | | analysisSanger: | | | | | | Bi-directional Dupont | | | | | | sequencing with | | | | | | H[employer]CHO[employer]ER-clamp for | | | | | | wild-typeallele to | | | | | | increase sensitivity | | | | | | References:1. | | | | | | Tiera MFrancis W. | | | | | | Molecular predictors of | | | | | | outcome in low-grade | | | | | | glioma.Curr Opin Neurol. | | | | | | 201125(6):767-73. | | | | | | doi: | | | | | | 10.1097/WCO.[id number] | | | | | | 0217.2. Jessica CM, | | | | | | Cheo SRShelton | | | | | | FJ, Jena JS, Mc Ludmila BE, | | | | | | Jacquie AR,Dl GUS, | | | | | | Chuckie REWRITERWarren C. | | | | | | BRAF alterations are | | | | | | frequent incerebellar | | | | | | low-grade astrocytomas | | | | | | with diffuse growth | | | | | | pattern. JNeuropathol | | | | | | Exp Neurol. 2011 | | | | | | (7):631-9.3. | | | | | | Hukaila E, Cricket R, | | | | | | Wally CUBA, Corey A, | | | | | | Lele RA, Elva | | | | | | Y,Nicolaides T, Kev A, | | | | | | Janna T, Nelson M, | | | | | | La Nena WA, Michele C, | | | | | | MiguelCD, Luis Alberto DH. | | | | | | Cooperative interactions | | | | | | of [id number] kinase and | | | | | | [id number] deficiency | | | | | | in pediatric malignant | | | | | | astrocytoma as a basis | | | | | | for rationaltherapy. | | | | | | Proc Natl Acad Sci U S | | | | | | A. 2011 May | | | | | | 29;109(22):1574-48. | | | | | | Dyson-Estefaniaa D, Artemio Q, | | | | | | Ta K, Cesia N, | | | | | | Sohail FisherK, Catarino | | | | | | DR,Shalonda TT, Zach | | | | | | KL, Iafrate AJ, Zach | | | | | | TITUS, Jennifer DUNCAN, Zo | | | | | | S. [id number] mutations | | | | | | are common in | | | | | | pleomorphic | | | | | | xanthoastrocytoma: | | | | | | diagnostic | | | | | | andtherapeutic | | | | | | implications. PLoS One. | | | | | | 2010 | | | | | | 29;6(3):v19061.5. | | | | | | April G, Zora D, | | | | | | Rashad Fisher, Demarcus W, | | | | | | Melvina H, Sidra | | | | | | C,Chantell K, Feli | | | | | | P, Ritesh C, | | | | | | Sari M, Jennifer DUNCAN, | | | | | | Alivia A,Zurdo S, | | | | | | Soraya C, Keshia W, | | | | | | Tisha Shetty von | | | | | | Kayden Orlando. Analysisof | | | | | | BRAF V600E mutation in | | | | | | 1,320 nervous system | | | | | | tumors reveals high | | | | | | mutationfrequencies in | | | | | | pleomorphic | | | | | | xanthoastrocytoma, | | | | | | ganglioglioma | | | | | | andextra-cerebellar | | | | | | pilocytic astrocytoma. | | | | | | Acta Neuropathol. | | | | | | 2010Mar;121(3):397-405.6 | | | | | | . Cristina MJ, Esvin | | | | | | M, Brose MS, Ma C, | | | | | | Dori AC, Ana Rosa AJ, | | | | | | StormPB, Luis Miguel JA. | | | | | | Activating mutations in | | | | | | BRAF characterize a | | | | | | spectrum ofpediatric | | | | | | low-grade gliomas. Neuro | | | | | | Oncol. 2009 | | | | | | Jan;12(7):99130.7. | | | | | | Chance K, Vani Z, | | | | | | and Lewis Mai. How | | | | | | molecular testing can | | | | | | help(and hurt) in the | | | | | | workup of gliomas. Alin Fisher | | | | | | Clin Pathol. | | | | | | 2012Mar;139(3):275-88. | | | | | | (Analyte specific | | | | | | reagents are used in | | | | | | many laboratory tests | | | | | | necessary forstandard | | | | | | medical care and | | | | | | generally do not require | | | | | | FDA approval. This | | | | | | testwas developed and | | | | | | its performance | | | | | | characteristics | | | | | | determined by [facility] | | | | | | [facility] | | | | | | [facility]; CLIA # | | | | | | [id number]. It has not | | | | | | been cleared orapproved | | | | | | by the U.S. Food and | | | | | | Drug Administration.) | | | | | | Case reviewed | | | | | | by:Chidi Sousa, | | | | | | M.D., Ph.D. / | | | | | | Pathologist | | | | | | Rendering | | | | | | Diagnostician: | | | | | | Chidi Sousa | | | | | | | | | | | | M.Gonzalo.,Ph.D.PathologistEle | | | | | | ctronically Signed | | | | | | 05/27/2015 1:17PM | | | | + + + [...] | + + + + + | [facility] | [address] | [place] [address] | | | DIAGNOSTIC | [address] | | | | LABORATORIES | | | | + + + + + SURGICAL PATHOLOGY (05/13/2015) + + + + + + | Component | Value | Ref Range | Performed | Pathologist | | | | | At | Signature | + + + + + + | SURGICAL | THIS IS AN AMENDED | | [facility] | | | PATHOLOGY | REPORT SOURCE OF | | DEPARTMENT | | | | SPECIMEN:A | | OF | | | | Intramedullary spinal | | PATHOLOGY | | | | cord lesion FSSOURCE OF | | | | | | SPECIMEN:B Enhancing | | | | | | intramedullary spinal | | | | | | cord lesion FSSOURCE OF | | | | | | SPECIMEN:C Enhancing | | | | | | intermedullary spinal | | | | | | cord lesion Final | | | | | | Pathologic | | | | | | Diagnosis:Amendment: | | | | | | This case is amended | | | | | | to include the diagnosis | | | | | | for specimen C.Please | | | | | | see below.Additional | | | | | | amendment: This case | | | | | | is amended to include | | | | | | the result | | | | | | ofconsultation with | | | | | | [facility] | | | | | | [facility] | | | | | | [place]. Please | | | | | | seebelow. A. | | | | | | Intramedullary spinal | | | | | | cord lesion, biopsy for | | | | | | frozen section | | | | | | (squishpreparation | | | | | | only):- | | | | | | Hypercellular tissue | | | | | | B. and C. 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 Thebackground | | | | | | stroma is slightly | | | | | | myxoid in appearance. 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 Tumor cells | | | | | | arestrongly positive for | | | | | | GFAP, OLIG-2, vimentin, | | | | | | S100 and are focally | | | | | | positivefor | | | | | | synaptophysin. No | | | | | | high grade features in | | | | | | the form of increased | | | | | | mitotic | | | | | | activity,microvascular | | | | | | proliferation or | | | | | | necrosis are | | | | | | demonstrated. No | | | | | | Rosenthalfibers and only | | | | | | rare eosinophilic | | | | | | granular bodies are | | | | | | present. Thedifferential | | | | | | diagnosis of this tumor | | | | | | with peculiar | | | | | | morphologic | | | | | | andimmunohistochemical | | | | | | features includes | | | | | | tanycytic ependymoma and | | | | | | pilomyxoidglioma. | | | | | | Molecular tests for | | | | | | BRAF V600E and BRAF | | | | | | translocation are | | | | | | negative. Case | | | | | | seen by:Rafael Pierre | | | | | | Matt Fairbanks, | | | | | | Ph.D./Neuropathologist | | | | | | Amendment seen | | | | | | by:Rafael Fairbanks, | | | | | | M.Michel, | | | | | | Ph.D./NeuropathologistT: | | | | | | 06/11/15:john | | | | | | Additional amendment | | | | | | seen by:Rafael Pierre | | | | | | Matt Fairbanks, | | | | | | Ph.D./NeuropathologistT: | | | | | | 06/19/15 Synoptic | | | | | | Report: Specimens | | | | | | InvolvedSpecimens: | | | | | | B: Enhancing | | | | | | intramedullary spinal | | | | | | cord lesion FSC: | | | | | | Enhancing intermedullary | | | | | | spinal cord lesion | | | | | | Tumor Site(s): Spinal | | | | | | CordLocation: T5 to T10 | | | | | | | | | | | | intramedullaryLaterality | | | | | | : MidlineProcedure: | | | | | | | | | | | | ResectionHistologic Type | | | | | | (WHO classification of | | | | | | tumors of the central | | | | | | nervoussystem): WHO | | | | | | Classification:low grade | | | | | | WHO grade I glioma, | | | | | | verónica-forming | | | | | | glioneuronal | | | | | | tumorHistologic Grade | | | | | | (WHO histologic grade): | | | | | | WHO Histologic | | | | | | Grade: WHOgrade | | | | | | IAncillary Studies: | | | | | | Special stains: | | | | | | Reticulin on block | | | | | | H7Vouygkqulzwnltzawemh | | | | | | stains: see IHC | | | | | | tableNo Electron | | | | | | microscopy | | | | | | performedMolecular | | | | | | genetic studies | | | | | | performedOther Molecular | | | | | | Studies: PCR for BRAF | | | | | | [id number] for BRAF | | | | | | translocation | | | | | | | | | | | | Immunohistochemical [...] | | | | | | Block C1Ocxqeehgku: | | | | | | Tumor cells | | | | | | Marker Result | | | | | | CommentGlial | | | | | | Fibrillary Acidic | | | | | | Protein | | | | | | PositiveVimentin | | | | | | PositiveOlig 2 | | | | | | VdayxczhEC80 % | | | | | | Positive less than | | | | | | 5%PhosphoHistone 3, | | | | | | mitotic marker | | | | | | NegativeEpithelial | | | | | | Membrane Antigen | | | | | | NegativeATRX(LIVE TRUCK OPERATOR and | | | | | | Pancreatic Tumors) | | | | | | Normal preserved | | | | | | nuclear staining | | | | | | Epithelial Membrane | | | | | | Antigen for meningioma, | | | | | | neuropath | | | | | | NegativeSynaptophysin | | | | | | Positive | | | | | | focalNeuronal nuclei | | | | | | | | | | | | NegativeNeurofilament | | | | | | NegativeNeurofilament, | | | | | | Low Molecular Weight | | | | | | NegativeS-100 | | | | | | PositiveChromogranin | | | | | | BytoyeqlIT00 (HPCA-1) | | | | | | Negative | | | | | | (Analyte [...] | | | | cs determined by [facility] | | | | | | laboratories. [...] testing.) | | | | | | | | | | | | Intraoperative | | | | | | Consult (Squish | | | | | | Preparation) | | | | | | Diagnosis:Intramedullary | | | | | | spinal cord lesion | | | | | | (specimen A): - | | | | | | Hypercellular tissue | | | | | | Note: This was squish | | | | | | prep only; no tissue | | | | | | remains for histology. | | | | | | Intraoperative | | | | | | Consult Diagnosis | | | | | | confirmed by: Gus | | | | | | Matt Black/Surgica | | | | | | l Pathological Resident | | | | | | and Irina Crystal, | | | | | | M.D.,Ph.D./Neuropatholog | | | | | | ist Intraoperative | | | | | | Consult (Frozen | | | | | | Section, Touch | | | | | | Preparation, | | | | | | SquishPreparation) | | | | | | Diagnosis:Enhancing | | | | | | intramedullary spinal | | | | | | cord lesion (specimen B) | | | | | | - Low-grade | | | | | | glioma | | | | | | Intraoperative Consult | | | | | | Diagnosis confirmed by: | | | | | | | | | | | | Matt Viveros/Surgical | | | | | | Pathology Resident and | | | | | | Irina Crystal, | | | | | | M.D.,Ph.D./Neuropatholog | | | | | | ist Clinical | | | | | | History:The patient is a | | | | | | 24-year-old female with | | | | | | spinal cord lesion. | | | | | | Per Epic:Patient was | | | | | | recently seen for right | | | | | | leg weakness and | | | | | | numbness and left | | | | | | footnumbness. 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 Gross | | | | | | Description:Received are | | | | | | 3 specimens: A and B | | | | | | fresh, C in formalin, in | | | | | | containerslabeled with | | | | | | the patient name | | | | | | (initials RE) and: | | | | | | A: Intramedullary | | | | | | spinal cord lesion: | | | | | | Received are 2 minute | | | | | | fragments oftan-pink | | | | | | tissue measuring 0.1 x | | | | | | 0.1 x 0.1 cm in | | | | | | aggregate. All tissue | | | | | | issubmitted for squish | | | | | | prep and nothing remains | | | | | | for permanent section. | | | | | | B: Enhancing | | | | | | intramedullary spinal | | | | | | cord lesion: Received | | | | | | are multiplefragments of | | | | | | moctezuma tissue measuring | | | | | | 0.8 x 0.8 x 0.2 cm in | | | | | | aggregate. Aportion of | | | | | | the specimen is used | | | | | | for frozen section | | | | | | diagnosis and | | | | | | isresubmitted. The | | | | | | remainder of the | | | | | | specimen is entirely | | | | | | submitted. C: | | | | | | Enhancing | | | | | | intramedullary spinal | | | | | | cord lesion: Received | | | | | | are multipletan-red | | | | | | fragments of soft tissue | | | | | | measuring 1 x 0.8 x 0.1 | | | | | | cm in aggregate.The | | | | | | entire specimen is | | | | | | submitted. | | | | | | Cassette Index:A: | | | | | | Intramedullary spinal | | | | | | cord lesion:B: | | | | | | Enhancing | | | | | | intramedullary spinal | | | | | | cord lesion:B1, frozen | | | | | | section residue, | | | | | | wrappedB2, remaining | | | | | | tissue, wrappedC: | | | | | | Enhancing | | | | | | intramedullary spinal | | | | | | cord | | | | | | lesion:C1KT(A,B):DSW(C): | | | | | | tp My electronic | | | | | [...] Diagnostician: | | | | | | Js Fairbanks M.D., | | | | | | Ph.D.PathologistElectron | | | | | | tasneem Signed 06/19/2015 | | | | | | 4:31PM | | | | + + + [...] | + + + + + | [facility] | [address] | [place] [address] | | | PATHOLOGY | [address] | | | + + + + + X-RAY SPINE ENTIRE 36" LATERAL, 1 VIEW (05/12/2015 9:49 PM PST) + + + + + + | Component | Value | Ref Range | Performed | Pathologist | | | | | At | Signature | + + + + + + | SPINE, | STUDY: SPINE, ENTIRE 36" | | | | | ENTIRE 36" | LATERAL, 1 VIEW | | | | | LATERAL, 1 | 05/12/15 21:49:00 | | | | | VIEW | COMPARISON: None. | | | | | | FINDINGS:Single lateral | | | | | | view of the spine shows | | | | | | normal spinal alignment, | | | | | | with neutralsagittal | | | | | | balance. No fracture, | | | | | | focal destruction, or | | | | | | obvious | | | | | | segmentationanomaly is | | | | | | observed. The disk | | | | | | heights appear | | | | | | maintained. Soft | | | | | | tissues areunremarkable. | | | | | | IMPRESSION: Normal | | | | | | exam. Attending | | | | | | Radiologists: LORENZA BENDER, | | | | | | MDAuthor: LORENZA BENDER MD | | | | | | I have personally | | | | | | viewed this | | | | | | procedure/exam, reviewed | | | | | | this report, and | | | | | | madechanges to it where | | | | | | appropriate. | | | | | | Final/Electronically | | | | | | signed / LORENZA YULIA | | | | | | 05/13/2015 10:09 AM | | | | + + + + + + + + | Specimen | + + | | + + + +---------+ + + | Performing | Address | City/State/Zipcode | Phone Number | | Organization | | | | + +---------+ + + | [facility] | | | | | RADIOLOGY | | | | + +---------+ + + ANTIBODY SCREEN (05/12/2015 8:31 PM PST) + + + + + [...] LABORATORY | [address] | [place] [address] | | | SERVICES, | [address] | | | | TRANSFUSION MEDICINE | | | | + + + + + ABO & RH TYPE (05/12/2015 8:31 PM PST) + + + + + [...] | + + + + + | [facility] | [address] | [place] [address] | | | SERVICES, | [address] | | | | TRANSFUSION MEDICINE | | | | + + + + + CBC (HEMOGRAM) ONLY (05/12/2015 8:28 PM PST) + + + + + + | Component | Value | Ref Range | Performed | Pathologist | | | | | At | Signature | + + + + + + | WHITE CELL | 11.19 (H) | 4.40 - 11.00 | [facility] | | | COUNT | | K/cu mm | LABORATORY | | | | | | SERVICES, | | | | | | CORE | | + + + + + + | RED CELL | 4.56 | 4.00 - 5.20 | [facility] | [...] + + + + | HEMATOCRIT | 38.3 | 36.0 - 46.0 % | [facility] | | | | | | LABORATORY | | | | | | SERVICES, | | | | | | CORE | | + + + + + + | MCV | 84.0 | 80.0 - 96.0 fL | [facility] [...] + + + | RDW SD | 43.6 | 35.1 - 46.3 fL | [facility] | | | | | | LABORATORY | | | | | | SERVICES, | | | | | | CORE | | + + + + + + | PLATELET | 352 | 150 - 400 K/cu | [facility] | | | COUNT | | mm | LABORATORY | | | | | | SERVICES, | | | | | | CORE | | + + + + + + | MPV | 11.0 | 9.7 - 12.3 fL | [facility] [...] LABORATORY | [address] | [place] [address] | | | SERVICES, CORE | [address] | | | + + + + + PORTILLO CARO ONLY (05/12/2015 8:22 PM PST) + + + + + + | Component | Value | Ref Range | Performed | Pathologist | | | | | At | Signature | + + + + + + | COLOR(UR) | Yellow | | [facility] | | | | | | LABORATORY | | | | | | SERVICES, | | | | | | CORE | | + + + + + + | APPEARANCE | Mod. Cloudy | | [facility] | | | | [...] + + + + | PH(UR) | 6.0 | 5.0 - 8.0 | [facility] | [...] + + + + | NITRITES | Positive (A) | Negative | [facility] | | | | | | LABORATORY | | | | | | SERVICES, | | | | | | CORE | | + + + + + + | LEUKOCYTE | Trace (A) | Negative | [facility] | | | ESTERASE | | | LABORATORY | | | | | | SERVICES, | | | | | | CORE | | + + + + + + | SPECIFIC | 1.017 | 1.005 - 1.030 | [facility] | [...] LABORATORY | [address] | [place] [address] | | | SERVICES, CORE | [address] | | | + + + + + BASIC METABOLIC SET (NA, K, CL, TCO2, BUN, CR, GLU, CA) (05/12/2015 7:53 PM PST) + +---------+ + + + | Component | Value | Ref Range | Performed | Pathologist | | | | | At | Signature | + +---------+ + + + | GLUCOSE, | 165 (H) | 60 - 99 mg/dL | [facility] | | | PLASMA | | | LABORATORY | | | (LAB) | | | SERVICES, | | | | | | CORE | | + +---------+ + + + | BUN, PLASMA | 13 | 6 - 20 mg/dL | [facility] | | | (LAB) | | | LABORATORY | | | | | | SERVICES, | | | | | | CORE | | + +---------+ + + + | CREATININE | 0.67 | 0.60 - 1.10 | [facility] | | | PLASMA | | mg/dL | LABORATORY | | | (LAB) | | | SERVICES, | | | | | | CORE | | + +---------+ + + + | EGFR | >60 | >60 mL/min | [facility] | | | - | | | LABORATORY | | | SYRIAN | | | SERVICES, | | | [...] +---------+ + + + | CALCIUM, | 9.0 [...] | + + + + + | [facility] | [address] | [place] [address] | | | SERVICES, CORE | [address] | | | + + + + + APTT (ACT. PART. THROMBO TIME) (05/12/2015 7:53 PM PST) + +-------+ + + + | Component | Value | Ref Range | Performed | Pathologist | | | | | At | Signature | + +-------+ + + + | APTT | 29.4 | 26.0 - 36.0 | [facility] | [...] 0.7 U/mL | LABORATORY | | | [address] | + + + + + + + + | Performing | Address | City/State/Zipcode | Phone Number | | Organization | | | | + + + + + | [facility] | [address] | [place] [address] | | | [address] | [address] | | | + + + + + INR (05/12/2015 7:53 PM PST) + +-------+ + + + | Component | Value | Ref Range | Performed | Pathologist | | | | | At | Signature | + +-------+ + + + | INR | 0.96 | 0.90 - 1.20 INR | [facility] [...] mech. 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) Neoplasm of uncertain behavior of | | brain and spinal cord | + + documented in this encounter Administered Medications + +--------+ +---------+------+------+ | Medication Order | MAR | Action | Dose | Rate | Site | | | Action | Date | | | | + +--------+ +---------+------+------+ | bacitracin (BACIIM) injection | Given | 05/13/20 | 50,000 | | | | INTRAPROCEDURE PRN, Starting Miriam | | 15 4:33 | Units | | | | 05/13/15 at 1633, Until Miriam | | PM PST | | | | | 05/13/15 at 1945 | | | | | | + +--------+ +---------+------+------+ +---+---+ | | | +---+---+ + +-------+ +-------+---+ + | bupivacaine-EPINEPHrine | Given | 05/13/20 | 30 mL | | Surgical | | (MARCAINE-EPINEPHRINE) 0.25 | | 15 7:31 | | | Site | | %-1:200,000 injection | | PM PST | | | | | INTRAPROCEDURE PRN, Starting Miriam | | | | | | | 05/13/15 at 1931, Until Miriam | | | | | | | 05/13/15 at 194 | | | | | | + +-------+ +-------+---+ + +---+---+ | | | +---+---+ + +-------+ +--------+---+---+ | thrombin 5000 unit topical | Given | 05/13/20 | 5,000 | | | | solution INTRAPROCEDURE PRN, | | 15 4:33 | Units | | | | Starting Miriam 05/13/15 at 1633, | | PM PST | | | | | Until Miriam 05/13/15 at 1946 | | | | | | + +-------+ +--------+---+---+ +---+---+ | | | +---+---+ documented in this encounter
--- OUTSIDE RECORDS SUMMARY | ~2019-11-28 | XMS | Encounter Summary ---
Demographics + + + | Address | [address] | | | [place] [address] | + + + | Home Phone | | + + + | Preferred Language | Unknown | + + + | Marital Status | Single | + + + | Muslim Affiliation | NON | + + + | Race | White | + + + | Ethnic Group | Not or | + + + Author + + + | Author | [facility] | + + + | Organization | [facility] | + + + | Address | [...] Team Providers + +------+ + | Care Vocal Music Instructor Name | Role | Phone | + +------+ + | Princess Franks MD | PCP | | + +------+ + Encounter Details +--------+ + + + + | Date | Type | Department | Care Team | Description | +--------+ + + + + | 11/05/ | Results | [facility] at [facility] | [place], | | | 2017 | Only | [address] | MD Princess [address] | | | | | [place], [place] | [place], | | | | | [address] | [place] [address] | | | | | | [phone] | | | | | | | [...] | | | | | | [place], [place] | | | | | | [address] | | | | | | [phone] | | | | | | | | +--------+ + + + + | 12/10/ | Office | Neurological Surgery | April Beck MD | | | 2020 | Visit | | [address] | | | | | | [address] | | | | | | [place], [place] | | | | | | [address] | | | | | | [phone] | | | | | | | | +--------+ + + + + documented as of this encounter Procedures + +--------+ + + + | Procedure Name | Priori | Date/Time | Associated Diagnosis | Comments | | | ty | | | | + +--------+ + + + | CULTURE, STREP | Routin | 11/05/2017 | | Results for this | | SCREEN | e | 4:44 PM | | procedure are in the | | | | PDT | | results section. | + +--------+ + + + | URINALYSIS CULTURE & | Routin | 11/05/2017 | | Results for this | | SENSITIVITY IF | e | 4:33 PM | | procedure are in the | | INDICATED | | PDT | | results section. | + +--------+ + + + | CULTURE, URINE | Routin | 11/05/2017 | | Results for this | | | e | 4:33 PM | | procedure are in the | | | | PDT | | results section. | + +--------+ + + + | VAG PATHOGENS/DNA | Routin | 11/05/2017 | | Results for this | | PROBE (TRICH, G. | e | 4:17 PM | | procedure are in the | | VAG, FITZ) | | PDT | | results section. | + +--------+ + + + | CHLAM/GC APTIMA, | Routin | 11/05/2017 | | Results for this | | RNA, TMA | e | 3:40 PM | | procedure are in the | | | | PDT | | results section. | + +--------+ + + + documented in this encounter Results CULTURE, STREP SCREEN (11/05/2017 4:44 PM PDT) + + + + + + | Component | Value | Ref Range | Performed | Pathologist | | | | | At | Signature | + + + + + + | CULTURE | Patient:ANAID, | | [facility] | | | RESULT | QIANA MODI | | [facility] | | | | | | | | | | | | | | | | | | | | | | | | | | | | Routine Cultures | | | | | | PROCEDURE: | | | | | | Strep Screen | | | | | | Culture [[id number]: | | | | | | | | | | | | 11/05/2017 16:44 PDT | | | | | | | | | | | | P1]SOURCE: | | | | | | | | | | | | Throat | | | | | | STARTED: | | | | | | | | | | | | 11/05/2017 20:39 | | | | | | PDTFREE TEXT SOURCE: | | | | | | | | | | | | | | | | | | ACCESSION: | | | | | | | | | | | | [id number] SITE: | | | | | | FINAL REPORTSFinal | | | | | | Report []Verified | | | | | | Date/Time: 11/07/2017 | | | | | | 11:07 PDTNo beta Strep | | | | | | isolated. Order | | | | | | CommentsO1: Strep | | | | | | Screen Culture (CULTURE | | | | | | THROAT STREP SCREEN - | | | | | | [facility] - Ordering-Phys: | | | | | | PRINCESS MARIBELL- | | | | | | STAR) | | | | | | Location: [facility] | | | | | | Performing LocationsP1: | | | | | | This test was | | | | | | performed at: | | | | | | [facility] | | | | + + + + + + + + | Specimen | + + | | + + + + + + + | Performing | Address | City/State/Zipcode | Phone Number | | Organization | | | | + + + + + | [facility] | [address] | [place], [place] | | | LAB | | [address] | | + + + + + CULTURE, URINE (11/05/2017 4:33 PM PDT) + + + + + + | Component | Value | Ref Range | Performed | Pathologist | | | | | At | Signature | + + + + + + | URINE | Patient:ANAID, | | [facility]AL[facility] | | | CULTURE | QIANA MODI | | [facility] | | | | | | | | | | | | | | | | | | | | | | | | | | | | Routine Cultures | | | | | | PROCEDURE: | | | | | | Urine Culture | | | | | | [P1] | | | | | | COLLECTED: | | | | | | 11/05/2017 | | | | | | 16:33 PDTSOURCE: | | | | | | U | | | | | | NonCath | | | | | | STARTED: | | | | | | | | | | | | 11/05/2017 20:42 | | | | | | PDTFREE TEXT SOURCE: | | | | | | | | | | | | | | | | | | ACCESSION: | | | | | | | | | | | | [id number] SITE: | | | | | | FINAL REPORTSFinal | | | | | | Report []Verified | | | | | | Date/Time: 11/07/2017 | | | | | | 11:07 PDTUrine colony | | | | | | count 10-50,000 CFU/ml | | | | | | Mixed Gram positive | | | | | | growth Performing | | | | | | LocationsP1: This | | | | | | test was performed at: | | | | | | [facility] | | | | + + + + + + + + | Specimen | + + | | + + + + + + + | Performing | Address | City/State/Zipcode | Phone Number | | Organization | | | | + + + + + | [facility] | [address] | [place], [place] | | | LAB | | [address] | | + + + + + URINALYSIS CULTURE & SENSITIVITY IF INDICATED (11/05/2017 4:33 PM PDT) + + + + + + | Component | Value | Ref Range | Performed | Pathologist | | | | | At | Signature | + + + + + + | CC/CATH? | Non-Cath | | [facility] | | | | | | [facility] | | + + + + + + | COLOR(UR) | Celia | | [facility] | | | | | | [facility] | | + + + + + + | APPEARANCE | Cloudy | | [facility] | | | | | | [facility] | | + + + + + + | GLUCOSE(UR) | Neg | Neg | [facility] | | | | | | [facility] | | + + + + + + | BILIRUBIN | Neg | Neg | [facility] | | | | | | [facility] | | + + + + + + | KETONES | Neg | Neg | [facility] | | | | | | [facility] | | + + + + + + | SPECIFIC | 1.023 | 1.003 - 1.029 | [facility] | | | GRAVITY | | | [facility] | | + + + + + + | BLOOD | Neg | Neg | [facility] | | | | | | [facility] | | + + + + + + | PH(UR) | 5.0 | 5.0 - 9.0 | [facility] | | | | | | [facility] | | + + + + + + | PROTEIN(LAB | Neg | Neg | [facility] | | | ) | | | [facility] | | + + + + + + | UROBILINOGE | 2.0 (A) | Normal mg/dL | [facility] | | | N | | | [facility] | | + + + + + + | NITRITES | Neg | Neg | [facility] | | | | | | [facility] | | + + + + + + | LEUKOCYTE | Small (A) | Neg | [facility] | | | ESTERASE | | | [facility] | | + + + + + + | WHITE CELLS | 11 (H) | 0 - 5 /HPF | [facility] | | | | | | [facility] | | + + + + + + | RED CELLS | 5 | 0 - 5 /HPF | [facility] | | | | | | [facility] | | + + + + + + | SQUAMOUS | 508 | /LPF | [facility] | | | EPITHELIAL | | | [facility] | | + + + + + + | BACTERIA | Few | /HPF | [facility] | | | | | | [facility] | | + + + + + + | MUCOUS | Few | /LPF | [facility] | | | | | | [facility] | | + + + + + + | AMORPHOUS | 1+ | /HPF | [facility] | | | CRYSTALS | | | [facility] | | + + + + + + | CULTURE | Yes | | [facility] | | | ADDED? | | | [facility] | | + + + + + + + + | Specimen | + + | | + + + + + | Narrative | Performed At | + + + | Location: [facility] | | | | [facility] | | | [facility] | + + + + + + + + | Performing | Address | City/State/Zipcode | Phone Number | | Organization | | | | + + + + + | [facility] | [address] | [place], [place] | | | LAB | | [address] | | + + + + + VAG PATHOGENS/DNA PROBE (HO, G. VAG, FITZ) (11/05/2017 4:17 PM PDT) + + + + + + | Component | Value | Ref Range | Performed | Pathologist | | | | | At | Signature | + + + + + + | FITZ SP. | NegativeComment: | Negative | [facility] | | | DNA PROBE | Performed by [facility] | | [facility] | | | | [facility], | | | | | | | | | | | | [address], | | | | | | [place] [address] | | | | | | [phone] | | | | | | | | | | | | www.[employer], Anthony | | | | | | MD Kaiden - Su. | | | | | | Director | | | | + + + + + + | G. | Positive (A) | Negative | [facility] | | | VAGINALIS | | | [facility] | | | DNA PROBE | | | | | + + + + + + | TRICHOMONAS | NegativeComment: | Negative | [facility] | | | DNA PROBE | INTERPRETIVE DATA: | | [facility] | | | | Vaginal Pathogen Panel | | | | | | by DNA ProbeAll test | | | | | | results should be | | | | | | correlated with clinical | | | | | | history. | | | | + + + + + + + + | Specimen | + + | | + + + + + | Narrative | Performed At | + + + | Location: [facility] | | | | [facility] | | | [facility] | + + + + + + + + | Performing | Address | City/State/Zipcode | Phone Number | | Organization | | | | + + + + + | [facility] | [address] | [place], [place] | | | LAB | | [address] | | + + + + + CHLAM/GC APTIMA, RNA, TMA (11/05/2017 3:40 PM PDT) + + + + + + | Component | Value | Ref Range | Performed | Pathologist | | | | | At | Signature | + + + + + + | APTIMA | Urine | | [facility] | | | MEDIA | | | [facility] | | + + + + + + | SOURCE | Urine | | [facility] | | | | | | [facility] | | + + + + + + | C. TRACH BY | NegativeComment: | Negative | [facility] | | | TMA | INTERPRETIVE | | [facility] | | | | INFORMATION: C. | | | | | | trachomatis by TMAThis | | | | | | test is intended for | | | | | | medical purposes only | | | | | | and is not valid for the | | | | | | evaluation of suspected | | | | | | sexual abuse or for | | | | | | other forensic purposes. | | | | | | In certain contexts, | | | | | | culture may be required | | | | | | to meet applicable laws | | | | | | and regulations for | | | | | | diagnosis of C. | | | | | | trachomatis and N. | | | | | | gonorrhoeae infections. | | | | | | Per 2014 CDC | | | | | | recommendations, this | | | | | | test does not include | | | | | | confirmation of positive | | | | | | results by an | | | | | | alternative nucleic acid | | | | | | target. | | | | + + + + + + | GC BY TMA | NegativeComment: Test | Negative | [facility] | | | | developed and | | [facility] | | | | characteristics | | | | | | determined by [facility] | | | | | | Laboratories. See | | | | | | Compliance Statement B: | | | | | | [employer]/CSINTERPRETI | | | | | | VE INFORMATION: N. | | | | | | gonorrhoeae by TMAThis | | | | | | test is intended for | | | | | | medical purposes only | | | | | | and is not valid for the | | | | | | evaluation of suspected | | | | | | sexual abuse or for | | | | | | other forensic purposes. | | | | | | In certain contexts, | | | | | | culture may be required | | | | | | to meet applicable laws | | | | | | and regulations for | | | | | | diagnosis of C. | | | | | | trachomatis and N. | | | | | | gonorrhoeae infections. | | | | | | Per 2014 CDC | | | | | | recommendations, this | | | | | | test does not include | | | | | | confirmation of positive | | | | | | results by an | | | | | | alternative nucleic acid | | | | | | target.Performed by | | | | | | [facility], | | | | | | | | | | | | [address] | | | | | | [place] [address] | | | | | | [phone] | | | | | | | | | | | | www.[employer] | | | | | | MD Andrew Richey Su. | | | | | | Director | | | | + + + + + + + + | Specimen | + + | | + + + + + | Narrative | Performed At | + + + | Location: [facility] | | | | [facility] | | | [facility] | + + + + + + + + | Performing | Address | City/State/Zipcode | Phone Number | | Organization | | | | + + + + + | [facility] | [address] | [place] | | | LAB | | [address] | | + + + + + documented in this encounter Visit Diagnoses Not on filedocumented in this encounter"
--- OUTSIDE RECORDS SUMMARY | ~2019-11-28 | XMS | Encounter Summary ---
Demographics + + + | Address | [address] | | | [place] [address] | + + + | Home Phone | | + + + | Preferred Language | Unknown | + + + | Marital Status | Single | + + + | Anabaptist Affiliation | NON | + + + [...] Team Providers + +------+ + | Care Batter Depositor Name | Role | Phone | + [...] | | | | MRI SPINE | [place], [place] | [facility] | | | | | THORACIC WWO | [address] | for Health | | | | | CONTRAST | Phone: | and Healing, | | | | | [place] [facility], | [phone] | [address], | | | | | DORSAL SPINE | Fax: | 3rd Floor | | | | | COMBO | [phone] | [place], [place] | | | | | | | [address] | | | | | | | Phone: | | | | | | | [phone] | | | | | | | Fax: | | | | | | | [phone] | +--------+--------+ + + + + Reason [...] | | | | MRI SPINE | [place], [place] | [facility] | | | | | THORACIC WWO | [address] | for Health | | | | | CONTRAST | Phone: | and Healing, | | | | | [place] [facility], | [phone] | [address], | | | | | DORSAL SPINE | Fax: | 3rd Floor | | | | | COMBO | [phone] | [place], [place] | | | | | | | [address] | | | | | | | Phone: | | | | | | | [phone] | | | | | | | Fax: | | | | | | | [phone] | +--------+--------+ + + + + Encounter [...] | | [address] Mailcode: | Ave [facility], [place] | | | | | [facility] for | [address] | | | | | Health and Healing, | [phone] | | | | | [address] | | | | | | Floor [place], [place] | | | | | | [address] | | | | | | [phone] | | | +--------+ + + + [...] | | | | | | [place], [place] | | | | | | [address] | | | | | | [phone] | | | | | | | | +--------+ + + + + | 12/10/ | Office | Neurological Surgery | April Beck MD | | 2019 | Visit | | [address] | | | | | | [address] | | | | | | [place], [place] | | | | | | [address] | | | | | | [phone] | | | | | | | [...]
--- OUTSIDE RECORDS SUMMARY | ~2019-11-28 | XMS | Encounter Summary ---
Demographics + + + | Address | [address] | | | [place] [address] | + + + | Home Phone | | + + + | Preferred Language | Unknown | + + + | Marital Status | Single | + + + | Roman Catholic Affiliation | NON | + + + | Race | White | + + + | Ethnic Group | Not or | + + + Author + + + | Author | [facility] | + + + | Organization | [facility] | + + + | [...] Team Providers + +------+ + | Care Scholarship Counselor Name | Role | Phone | + +------+ + | Clare Franks MD | PCP | | + +------+ + Reason for Visit + + + | Reason | Comments | + + + | Post-discharge | s/p discharge 03/28/16: Right-sided T8 and T9 hemilaminectomy & | | follow-up | resection of tumor (dos: 03/24/16) | + + + Encounter Details +--------+ + + + + | Date | Type | Department | Care Team | Description | +--------+ + + + + | 04/03/ | Telephone | Neurosurgery at | Rajinder Luis MD | Post-discharge | | 2016 | | [facility] [address] | [address] | follow-up (s/p | | | | Ave Mailcode: CH8N | [facility] [place] | discharge 03/28/16: | | | | [facility] | [address] | Right-sided T8 and | | | | and Healing, | [phone] | T9 hemilaminectomy & | | | | | | resection of tumor | | | | Floor [facility] [place] | | (dos: 03/24/16) ) | | | | [address] | | | | | | [phone] | | | +--------+ + + + [...] | | | | | | [place], [place] | | | | | | [address] | | | | | | [phone] | | | | | | | | +--------+ + + + + | 12/10/ | Office | Neurological Surgery | April Beck MD | | | 2019 | Visit | | [address] | | | | | | [address] | | | | | | [place], [place] | | | | | | [address] | | | | | | [phone] | | | | | | | | +--------+ + + + + documented as of this encounter Visit Diagnoses Not on filedocumented in this encounter"
--- OUTSIDE RECORDS SUMMARY | ~2019-11-28 | XMS | Encounter Summary ---
Demographics + + + | Address | [address] | | | [place] [address] | + + + | Home Phone | | + + + | Preferred Language | Unknown | + + + | Marital Status | Single | + + + | Pentecostalism Affiliation | NON | + + + [...] Team Providers + +------+ + | Care Design Verification Engineer Name | Role | Phone | + +------+ + | Damir Sy MD | PCP | | + +------+ + Reason for Visit + + + | Reason | Comments | + + + | Medication Refill | | | Request | | + + + Encounter Details +--------+ + + + + | Date | Type | Department | Care Team | Description | +--------+ + + + + | 02/26/ | Telephone | [facility] at | Romario Raegan Ezequiel, | Medication Refill | | 2017 | | [facility] [address] | PA-C [address] | Request | | | | [place] Mailcode: | [place], [place] | | | | | [facility] | [address] | | | | | and [place], | [phone] | | | | | [facility] | | | | | | [place], [place] | | | | | | [address] | | | | | | [phone] | | | +--------+ + + + [...] | | | 2020 | | | [facility] [address] | | | | | | [place], [place] | | | | | | [address] | | | | | | [phone] | | | | | | | | +--------+ + + + + | 12/10/ | Office | Neurological Surgery | April Beck MD | | | 2019 | Visit | | [address] | | | | | | [address] | | | | | | [place], [place] | | | | | | [address] | | | | | | [phone] | | | | | | | | +--------+ + + + + documented as of this encounter Procedures + +--------+ + + + | Procedure Name | Priori | Date/Time | Associated Diagnosis | Comments | | | ty | | | | + +--------+ + + + | CHLAM/GC APTIMA, | Routin | 05/04/2017 | | Results for this | | RNA, TMA | e | 3:45 PM | | procedure are in the | | | | PDT | | results section. | + +--------+ + + + | CULTURE, URINE | Routin | 05/04/2017 | | Results for this | | | e | 3:23 PM | | procedure are in the | | | | PDT | | results section. | + +--------+ + + + documented in this encounter Results CHLAM/GC APTIMA, RNA, TMA (05/04/2017 3:45 PM PDT) + + + + + + | Component | Value | Ref Range | Performed | Pathologist | | | | | At | Signature | + + + + + + | CHLAMYDIA | NOT DETECTED | NOT DETECTED | [facility] | | | PROBE | | | [facility] | | + + + + + + | GONOCOCCUS | NOT DETECTED | NOT DETECTED | [facility] | | | PROBE | | | [facility] | | + + + + + + | COMMENTS | See CommentComment: This | | [facility] | | | | test was performed | | [facility] | | | | using the APTIMA COMBO2 | | | | | | Assay([employer] | | | | | | The analytical | | | | | | performance | | | | | | characteristics of this | | | | | | assay, when used to test | | | | | | SurePath specimens | | | | | | havebeen determined by | | | | | | [facility]. Lab | | | | | | test performed by:Lab | | | | | | Mnemonic: [id number] | | | | | | DIAGNOSTICS | | | | | | [id number] | | | | | | [address] [facility] | | | | | | [place] [id number] | | | | | | MD AARON | | | | + + + + + + + + | Specimen | + + | | + + + + + | Narrative | Performed At | + + + | Location: [facility] | | | | [facility] | | | [facility] | + + + + + + + + | Performing | Address | City/State/Zipcode | Phone Number | | Organization | | | | + + + + + | [facility] | [address] | [place] | | | LAB | | [address] | | + + + + + CULTURE, URINE (05/04/2017 3:23 PM PDT) + + + + + + | Component | Value | Ref Range | Performed | Pathologist | | | | | At | Signature | + + + + + + | URINE | Patient:ANAID, | | [facility] | | | CULTURE | QIANA MODI | | [facility] | | | | | | | | | | | | | | | | | | | | | | | | | | | | Routine Cultures | | | | | | PROCEDURE: | | | | | | Urine Culture | | | | | | [O1 P1] COLLECTED: | | | | | | | | | | | | 05/04/2017 15:23 | | | | | | PDTSOURCE: | | | | | | U NonCath | | | | | | | | | | | | STARTED: | | | | | | 05/04/2017 | | | | | | 20:33 PDTFREE TEXT | | | | | | SOURCE: | | | | | | | | | | | | ACCESSION: | | | | | | | | | | | | [id number] SITE: | | | | | | FINAL REPORTSFinal | | | | | | Report []Verified | | | | | | Date/Time: 05/08/2017 | | | | | | 09:12 PDTUrine colony | | | | | | count >100,000 CFU/ml | | | | | | Staphylococcus | | | | | | epidermidis | | | | | | SUSCEPTIBILITY | | | | | | RESULTS | | | | | | | | | | | | Staphylococcus | | | | | | epidermidisAntibiotic | | | | | | HARVEY Dilutn | | | | | | HARVEY Interp | | | | | | Benzylpenicillin >=0.5 | | | | | | | | | | | | ResistantCiprofloxacin | | | | | | 2 | | | | | | | | | | | | IntermediateLevofloxacin | | | | | | 4 | | | | | | | | | | | | ResistantNitrofurantoin | | | | | | <=16 | | | | | | SusceptibleOxacillin | | | | | | <=0.25 | | | | | | | | | | | | SusceptibleRifampin | | | | | | <=0.5 | | | | | | | | | | | | SusceptibleTetracycline | | | | | | <=1 | | | | | | | | | | | | SusceptibleTrimethoprim/ | | | | | | <=10 | | | | | | SusceptibleSulfamethox | | | | | | azoleVancomycin | | | | | | <=0.5 | | | | | | SusceptibleOrder | | | | | | CommentsO1: Urine | | | | | | Culture (URINE | | | | | | CULTURE/COLONY COUNT - | | | | | | [facility] - Ordering-Phys: | | | | | | PRINCESS MARIBELL-STAR) | | | | | | Location: [facility] | | | | | | Performing LocationsP1: | | | | | | This test was | | | | | | performed at: | | | | | | [facility] | | | | + + + + + + + + | Specimen | + + | | + + + + + + + | Performing | Address | City/State/Zipcode | Phone Number | | Organization | | | | + + + + + | [facility] | [address] | [place], [place] | | | LAB | | [address] | | + + + + + documented in this encounter Visit Diagnoses + + | Diagnosis | + + | 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
--- OUTSIDE RECORDS SUMMARY | ~2019-11-28 | XMS | Encounter Summary ---
Demographics + + + | Address | [address] | | | [place] [address] | + + + | Home Phone | | + + + | Preferred Language | Unknown | + + + | Marital Status | Single | + + + | Confucianism Affiliation | NON | + + + | Race | White | + + + | Ethnic Group | Not or | + + + Author + + + | Author | [facility] | + + + | Organization | [facility] | + + + | Address [...] Team Providers + +------+ + | Care Mill Crane Operator Name | Role | Phone | [...] cord | Raegan Nieves, | [address] | | | | | tumor | PA-C [address] | | | | | Procedures | [address] | [address] [place] | | | | | MRI SPINE | [place], [place] | Research | | | | | THORACIC [facility] | [address] | Center | | | | | CONTRAST | Phone: | [place], [place] | | | | | [place] [facility], | [phone] | [address] | | | | | DORSAL SPINE | Fax: | Phone: | | | | | COMBO | [phone] | [phone] | | | | | | | Fax: | | | | | | | [phone] | +--------+--------+ + + + + Reason [...] | | | | | | [address] [facility] | [address] | | | | | | [address] | [address] | | | | | | Rd | [place], [place] | | | | | | [place], [place] | [address] | | | | | | [address] | Phone: | | | | | | | [phone] | | | | | | | Fax: | | | | | | | [phone] | +--------+--------+ + + + + Encounter Details +--------+---------+ + + + | Date | Type | Department | Care Team | Description | +--------+---------+ + + + | 02/14/ | Office | [facility] | Raegan Doss, | Spinal cord tumor | | 2017 | Visit | [facility] [address] | [facility] [address] | | | | | [place] Mailcode: | [place], [place] | | | | | [facility] | [address] | | | | | and [place], | [phone] | | | | | [place] [address] | | | | | | [place], [place] | | | | | | [address] | | | | | | [phone] | | | +--------+---------+ + + + [...] much of her sensation. She discharged to [facility] for several weeks of IPR. She currently [...] with time. When she was discharged from [facility] multiple medications were missing that she never [...] [facility] [address] [place] [id number] documented in this encounter Plan of [...] | | | | | | [place], [place] | | | | | | [address] | | | | | | [phone] | | | | | | | | +--------+ + + + + | 12/10/ | Office | Neurological Surgery | April Beck MD | | | 2019 | Visit | | [address] | | | | | | [address] | | | | | | [place], [place] | | | | | | [address] | | | | | | [phone] | | | | | | | | +--------+ + + + + documented as of this encounter Results MRI SPINE THORACIC [facility] CONTRAST (06/04/2017 2:38 PM PST) + + [...]
--- OUTSIDE RECORDS SUMMARY | ~2019-11-28 | XMS | Encounter Summary ---
Demographics + + + | Address | [address] | | | [place] [address] | + + + | Home Phone [...] Team Providers + +------+ + | Care Spine Supervisor Name | Role | Phone | [...] | | [address] | [address] | | | | Note-Transc | [place], [place] | Franko PADILLA MD | | | | ribed | [phone] | [phone] | | | | | | | [...] | | | | | | [place], [place] | | | | | | [address] | | | | | | [phone] | | | | | | | | +--------+ + + + + | 12/10/ | Office | Neurological Surgery | April Beck MD | | | 2019 | Visit | | [address] | | | | | | [address] | | | | | | [place], [place] | | | | | | [address] | | | | | | [phone] | | | | | | | | +--------+ + + + + documented as of this encounter Visit Diagnoses Not on filedocumented in this encounter"
--- OUTSIDE RECORDS SUMMARY | ~2019-11-28 | XMS | Encounter Summary ---
Demographics + + + | Address | [address] | | | [place] [address] | + + + | Home Phone | | + + + | Preferred Language | Unknown | + + + | Marital Status | Single | + + + | Pentecostal Affiliation | NON | + + + [...] Team Providers + +------+ + | Care Civil Preparedness Coordinator Name | Role | Phone | + +------+ + | Tiff Chapin | PCP | | + +------+ + Reason for Visit +--------+ + | Reason | Comments | +--------+ + | Tumor | | +--------+ + AUTH/CERT +--------+--------+ + + + + [...] | +--------+ + + + + | 05/07/ | Hospital | [facility] [address] | Christine Gilbert MD | | | 2014 - | Encounter | [facility] | [address] | | | | | [id number] [facility] | [place] [address] | | | 05/08/ | | [facility] [place], | [phone] | | | 2014 | | [place] [address] | | | | | | [phone] | Rajinder Luis MD | | | | | | [address] | | | | | | [place], [place] | | | | | | [address] | | | | | | [phone] | | | | | | | [...] + + + | Blood Pressure | 116/68 | 05/08/2015 3:55 PM | | | | | PDT | | + + + + + | Pulse | 57 | 05/08/2015 3:55 PM | | | | | PDT | | + + + + + | Temperature | 36.6 C (97.9 F) | 05/08/2015 3:55 PM | | | | | PDT | | + + + + + | Respiratory Rate | 16 | 05/08/2015 3:55 PM | | | | | PDT | | + + + + + | Oxygen Saturation | 98% | 05/08/2015 3:55 PM | | | | | PDT | | + + + + + | Inhaled Oxygen | - | - | | | Concentration | | | | + + + + + | Weight | 86.3 kg (190 lb 4.1 | 05/08/2015 3:23 AM | | | | oz) | PDT | | + + + + + | Height | - | - | | + + + + + | Body Mass Index | - | - | | + + + + + documented in this encounter Discharge Summaries Chirag Thorne - 05/08/2015 7:29 PM PDT NEUROSURGERY DISCHARGE SUMMARY: Patient: Matt Fagan Admission Date: 05/07/2015 Discharge Date: 05/08/2015 Attending Physician: Rajinder Luis MD PCP: PATRIC Todd Service: [facility] Neurosurgery Diagnoses Principal Final Diagnosis: Tumor of Thoracic Spine Brief Hospital Course You were admitted for monitoring and MRI of cervical spine and brain, which did not show ab normality. Surgical plan was aborted and you will follow-up with Dr. Calloway next week. Previ ous imaging has demonstrated a mass of the thoracic spine. Diet Regular Regular diet- There are no restrictions to your diet. You may eat or drink whatever you pr efer, though healthy food choices are recommended. Activity Resume normal activity with caution. Your symptoms increased your risk of fall. Have assist ance nearby for all physical activities. Destination: Destination: Home Follow Up Appointments: PCP:PATRIC Todd When: Please follow-up with your [...] Medication List START taking these medications Details acetaminophen 325 mg oral tablet Take [...] >2 days). Qty: 15 tablet, Refills: 1 Special Instructions/Tests: Please call the Neurosurgery clinic at [phone] with any questions Sunday to Sunday 8 A M - 4 PM. After hours, call [facility] at [phone] and ask to speak with the Neurosurgery resi dent demolition expert if you have any of the following: - Difficulty breathing or shortness of breath ; - Excessive bleeding or drainage from incision sites; - Fevers, chills, sweats; - Persiste nt nausea or vomiting; - Change in mental status; - New deficits in sensation or strength Condition On Discharge: Good Vital Signs at discharge as appropriate: BP: 116/68 mmHg (05/08/15 1555) Pulse: 57 (05/08/15 155) Resp: 16 (1 155) Weight: 86.3 kg (190 lb 4.1 oz) (05/08/15 0323) Discharge Patient To: Home Does patient have a planned readmission: No Discharge Summary Completed?: Yes. 05/08/2015 Discharging Provider: Chirag Thorne MD, PhD Date Completed: 05/08/2015 Time Completed: 7:29 PM Discharging Attending: MD Chirag Henry MD, PhD PGY-1 Resident Neurosurgery P M PDT Associated attestation - Rajinder Luis MD - 05/08/2015 7:59 PM PDTI saw and evaluated th e patient. Discussed with resident and agree with the resident's findings and plan as docum ented in the resident's note. documented in this encounter Progress Notes Chirag Thorne - 05/08/2015 7:13 PM PDT Neurosurgery Daily Progress Note: Author: Chirag Thorne MD, PhD Attending Physician: Rajinder Luis MD 05/08/2015 ID: Matt Fagan is a 24 y.o. 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 She states that she has had a feeling of her RLE becoming progress ively more and more numb, and now she has to think about moving her right leg while walking, still ambulatory, denies bladder/bowel dysfunction, no issues with headaches, vision, seizu res. Denies prior hx of malignancy, adopted so does not know family hx. HD # 1 INTERVAL EVENTS: OR tomorrow aborted OBJECTIVE: Last Vitals: BP 116/68 | Pulse 57 | Temp 36.6 C (97.9 F) | RR 16 | Wt 86.3 kg (190 lb 4 .1 oz) | SpO2 98% 24 Hour Vital Min/Max: Systolic (24hrs), Av mmHg, Min:102 mmHg, Max:131 mmHg Diastolic (24hrs), Av mmHg, Min:58 mmHg, Max:82 mmHg Temp Av.7 C (98.1 F) Min: 36.7 C (98 F) Max: 36.8 C (98.2 F)Pulse Av.7 Min: 68 Max: 77 Resp Av.3 Min: 16 Max: 18SpO2 Av.5 % Min: 97 % Max: 98 % No intake or output data in the 24 hours ending 05/08/15 0441 Physical Exam: Alert, oriented x3. Speech clear, fluent. Pupils equal, brisk. Gaze conjugate. EOMI. LT sensation intact. Face symmetric. Tongue midline. LT sensation intact in upper extremities. Strength full throughout upper extremities. No drift. LLE - 5/5 throughout and sensation intact RLE - HF 4+/5, HE 4+/5, KF 4+/5, KE 4/5, DF 3/5, PF 4/5; no light touch sensation. Can sens e pressure. There is allydynia below the knee to pressure stimulus. Reflexes 2+ at bilateral biceps, brachioradialis, and achilles. 3+ at bilateral patellars. No Barriga's, No clonus on right, one beat of clonus on left, toes downgoing on left, toes m clayton to plantar stim on right Labs: Lab Results Component Value Date WBC 9.28 05/08/2015 HB 11.7 05/08/2015 HCT 36.9 05/08/2015 PLT 318 05/08/2015 MCV 83.9 05/08/2015 RDW 43.2 05/08/2015 Lab Results Component Value Date NA 141 05/08/2015 K 3.5 05/08/2015 CL 107 05/08/2015 BICARB 26 05/08/2015 BUN 11 05/08/2015 CR 0.82 05/08/2015 GLU 90 05/08/2015 CA 8.6 05/08/2015 Lab Results Component Value Date INRPT 1.00 05/08/2015 Imaging: ASSESSMENT AND PLAN: Matt Fagan is a 24 y.o. 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 She states that she has had a feeling of her RLE becoming progress ively more and more numb, and now she has to think about moving her right leg while walking, still ambulatory, denies bladder/bowel dysfunction, no issues with headaches, vision, seizu res. Denies prior hx of malignancy, adopted so does not know family hx. No abnormalities in cervical spine or brain on today's mri. Plan: Discharging to home, per Dr. Luis. F/u with Dr. Luis next week. Signed: Chirag Thorne MD, men's locker room attendant Neurological Surgery [facility] [place] Pager: [phone] ay Still MD - 05/08/2015 5:31 PM PDTNeurosurgery Preoperative Note Planned procedure: thoracic laminectomies for intramedullary tumor biopsy vs resection Date of procedure: 05/09/15 Booked? Yes Consented? Yes Marked? Yes NPO time: midnight Labs/Studies Hct: 36.9 Plt: 318 WBC: 9.28 Na: 141 K: 3.5 Type and Screen obtained? Yes If over 50, EKG obtained this admission (Yes/No/NA)? NA If over 50, CXR obtained this admission (Yes/No/NA)? NA Medications If on Lovenox, stopped the day prior to surgery (Yes/No/NA)? NA On ASA or other antiplatelet agent? No Jay Still MD PGY-2 Neurological Surgery Pager [phone] documented in this enco unter Plan of Treatment +--------+ + + + [...] | | | | | | [place], [place] | | | | | | [address] | | | | | | [phone] | | | | | | | | +--------+ + + + + | 12/10/ | Office | Neurological Surgery | April Beck MD | | 2019 | Visit | | [address] | | | | | | [address] | | | | | | [place], [place] | | | | | | [address] | | | | | | [phone] | | | | | | | | +--------+ + + + + documented as of this encounter Procedures + +--------+ + + + | Procedure Name | Priori | Date/Time | Associated Diagnosis | Comments | | | ty | | | | + +--------+ + + + | MRI BRAIN TUMOR | Urgent | 05/08/2015 | | Results for this | | EVALUATION WWO | | 9:45 AM | | procedure are in the | | CONTRAST | | PDT | | results section. | + +--------+ + + + | MRI SPINE CERVICAL | Urgent | 05/08/2015 | | Results for this | | WWO CONTR | | 9:34 AM | | procedure are in the | | | | PDT | | results section. | + +--------+ + + + | CBC (HEMOGRAM) ONLY | Urgent | 05/08/2015 | | Results for this | | | | 7:26 AM | | procedure are in the | | | | PDT | | results section. | + +--------+ + + + | INR | Urgent | 05/08/2015 | | Results for this | | | | 7:26 AM | | procedure are in the | | | | PDT | | results section. | + +--------+ + + + | BASIC METABOLIC SET | Urgent | 05/08/2015 | | Results for this | | (NA, K, CL, TCO2, | | 7:26 AM | | procedure are in the | | BUN, CR, GLU, CA) | | PDT | | results section. | + +--------+ + + + | CBC ONLY | Urgent | 05/08/2015 | | Results for this | | | | 7:26 AM | | procedure are in the | | | | PDT | | results section. | + +--------+ + + + | PRODUCT - PLATELET | Routin | 05/08/2015 | | Results for this | | PHERESIS | e | 2:08 AM | | procedure are in the | | LEUKOREDUCED | | PDT | | results section. | + +--------+ + + + | RAINBOW HOLD TUBE - | Urgent | 05/08/2015 | | | | RED TOP | | 1:57 AM | | | | | | PDT | | | + +--------+ + + + | CBC AND AUTO DIFF | Urgent | 05/08/2015 | | Results for this | | | | 1:28 AM | | procedure are in the | | | | PDT | | results section. | + +--------+ + + + | INR | Urgent | 05/08/2015 | | Results for this | | | | 1:28 AM | | procedure are in the | | | | PDT | | results section. | + +--------+ + + + | CBC, WITH | Urgent | 05/08/2015 | | Results for this | | DIFFERENTIAL | | 1:28 AM | | procedure are in the | | | | PDT | | results section. | + +--------+ + + + | BASIC METABOLIC SET | Urgent | 05/08/2015 | | Results for this | | (NA, K, CL, TCO2, | | 1:28 AM | | procedure are in the | | BUN, CR, GLU, CA) | | PDT | | results section. | + +--------+ + + + | ANTIBODY SCREEN | Urgent | 05/08/2015 | | Results for this | | | | 1:28 AM | | procedure are in the | | | | PDT | | results section. | + +--------+ + + + | TYPE AND SCREEN | Urgent | 05/08/2015 | | Results for this | | | | 1:28 AM | | procedure are in the | | | | PDT | | results section. | + +--------+ + + + | ABO & RH TYPE | Urgent | 05/08/2015 | | Results for this | | | | 1:28 AM | | procedure are in the | | | | PDT | | results section. | + +--------+ + + + documented in this encounter Results MRI BRAIN TUMOR EVALUATION WWO CONTRAST (05/08/2015 9:45 AM PDT) + + + + + + | Component | Value | Ref Range | Performed | Pathologist | | | | | At | Signature | + + + + + + | MR BRAIN | EXAM: MRI brain without | | | | | TUMOR | and with contrast | | | | | FOLLOW-UP | HISTORY: Known spinal | | | | | WWO | cord tumor, evaluate for | | | | | CONTRAST | intracranial pathology | | | | | | COMPARISON: No prior | | | | | | imaging of the brain. | | | | | | TECHNIQUE: Multiplanar | | | | | | multi-sequence MRI of | | | | | | the brain without and | | | | | | withgadolinium based | | | | | | intravenous contrast. | | | | | | FINDINGS: Brain: No | | | | | | acute intracranial | | | | | | abnormality. No | | | | | | evidence of hemorrhage, | | | | | | mass, oracute | | | | | | infarction. The | | | | | | ventricles are normal in | | | | | | size and morphology. | | | | | | Noabnormal enhancement. | | | | | | Soft tissues and marrow: | | | | | | UnremarkableFace and | | | | | | orbits: Visualized | | | | | | portions are | | | | | | unremarkable IMPRESSION: | | | | | | Unremarkable MRI of the | | | | | | brain. Attending | | | | | | Radiologists: ROCIO Valentin | | | | | | DERECK VALLEJOuthor: SUMEET | | | | | | MD JOSSELINE I have | | | | | | personally viewed this | | | | | | procedure/exam, reviewed | | | | | | this report, and | | | | | | madechanges to it where | | | | | | appropriate. | | | | | | Final/Electronically | | | | | | signed / ROCIO Valentin | | | | | | YONI 05/08/2015 10:19 | | | | | | AM | | | | + + [...] | + +---------+ + + MRI SPINE CERVICAL WWO CONTRAST (05/08/2015 9:34 AM PDT) + + + + + + | Component | Value | Ref Range | Performed | Pathologist | | | | | At | Signature | + + + + + + | MR CERVICAL | EXAM: MRI cervical spine | | | | | SPINE WWO | without and with | | | | | CONTR | contrast HISTORY: | | | | | | 24-year-old female with | | | | | | with thoracic spinal | | | | | | cord tumor. COMPARISON: | | | | | | MRI of the thoracic | | | | | | spine from 05/06/15 | | | | | | TECHNIQUE: Multiplanar | | | | | | multi-sequence MRI | | | | | | cervical spine without | | | | | | and withgadolinium based | | | | | | intravenous contrast | | | | | | FINDINGS: Alignment: | | | | | | Normal Marrow: | | | | | | Unremarkable Spinal | | | | | | Cord: The cervical | | | | | | spinal cord appears | | | | | | normal. There is | | | | | | increasedT2/STIR signal | | | | | | seen in the visualized | | | | | | upper thoracic cord at | | | | | | T2 and S1leacvrlqs body | | | | | | level.s There is | | | | | | evidence of associated | | | | | | enhancement seen | | | | | | withthis cord signal | | | | | | abnormality. | | | | | | Craniocervical | | | | | | junction: NormalThere is | | | | | | no lateralizing mass, | | | | | | neuroforaminal | | | | | | narrowing, or spinal | | | | | | canalstenosis. No | | | | | | abnormal enhancement | | | | | | Posterior fossa: | | | | | | Visualized portions are | | | | | | unremarkable | | | | | | Paraspinal soft | | | | | | tissues: Unremarkable | | | | | | IMPRESSION: 1. No | | | | | | evidence of cervical | | | | | | spinal cord | | | | | | abnormality.2. Cord | | | | | | signal abnormality is | | | | | | seen in the visualized | | | | | | upper thoracic spine. | | | | | | Attending Radiologists: | | | | | | ROCIO VALLEJO, | | | | | | MDAuthor: SUMEET MANJARREZ, | | | | | | I [...] | | | | | signed / ROCIO V | | | | | | YONI 05/08/2015 10:17 | | | | | | AM | | | | + + [...] + +---------+ + + CBC (HEMOGRAM) ONLY (05/08/2015 7:26 AM PDT) + + + + + + | Component | Value | Ref Range | Performed | Pathologist | | | | | At | Signature | + + + + + + | WHITE CELL | 9.28 | 4.40 - 11.00 | [facility] | | | COUNT | | K/cu mm | LABORATORY | | | | | | SERVICES, | | | | | | CORE | | + + + + + + | RED CELL | 4.40 | 4.00 - 5.20 | [facility] | | | COUNT | | M/cu mm | LABORATORY | | | | | | SERVICES, | | | | | | CORE | | + + + + + + | HEMOGLOBIN | 11.7 (L) | 12.0 - 16.0 | [facility] | | | | | g/dL | LABORATORY | | | | | | SERVICES, | | | | | | CORE | | + + + + + + | HEMATOCRIT | 36.9 | 36.0 - 46.0 % | [facility] | | | | | | LABORATORY | | | | | | SERVICES, | | | | | | CORE | | + + + + + + | MCV | 83.9 | 80.0 - 96.0 fL | [facility] | | | | | | LABORATORY | | | | | | SERVICES, | | | | | | CORE | | + + + + + + | MCHC | 31.7 | 33.0 - 35.5 | [facility] | [...] + + + + | PLATELET | 318 | 150 - 400 K/cu | [facility] [...] | + + + + + | [email or web address] | [address] | [place] [address] | | | SERVICES, CORE | [address] | | | + + + + + INR (05/08/2015 7:26 AM PDT) + +-------+ + + + | Component | Value | Ref Range | Performed | Pathologist | | | | | At | Signature | + +-------+ + + + | INR | 1.00 | 0.90 - 1.20 INR | [facility] [...] | + + + + + | [facility] | [address] | [place] [address] | | | SERVICES, CORE | [address] | | | + + + + + BASIC METABOLIC SET (NA, K, CL, TCO2, BUN, CR, GLU, CA) (05/08/2015 7:26 AM PDT) + +---------+ + + + | Component | Value | Ref Range | Performed | Pathologist | | | | | At | Signature | + +---------+ + + + | GLUCOSE, | 90 | 60 - 99 mg/dL | [facility] | | | PLASMA | | | LABORATORY | | | (LAB) | | | SERVICES, | | | | | | CORE | | + +---------+ + + + | BUN, PLASMA | 11 | 6 - 20 mg/dL | [facility] | | | (LAB) | | | LABORATORY | | | | | | SERVICES, | | | | | | CORE | | + +---------+ + + + | CREATININE | 0.82 | 0.60 - 1.10 | [facility] | | | PLASMA | | mg/dL | LABORATORY | | | (LAB) | | | SERVICES, | | | | | | CORE | | + +---------+ + + + | EGFR | >60 | >60 mL/min | [facility] | | | - | | | LABORATORY | | | MEXICAN | | | SERVICES, | | | [...] + + + | TOTAL CO2, | 26 | 21 - 32 mmol/L | [facility] | | | PLASMA | | | LABORATORY | | | (LAB) | | | SERVICES, | | | | | | CORE | | + +---------+ + + + | CALCIUM, | 8.6 | 8.6 - 10.2 | [facility] | [...] + + | [facility] | [address] | [place] [address] | | | SERVICES, CORE | [address] | | | + + + + + PRODUCT - PLATELET PHERESIS LEUKOREDUCED (05/08/2015 2:08 AM PDT) + + + + + + | Component | Value | Ref Range | Performed | Pathologist | | | | | At | Signature | + + + + + + | PRODUCT | [id number] | | [facility] | | | DESCRIPTION | | | DEPARTMENT | | | | | | OF | | | | | | PATHOLOGY | | + + + + + + | PRODUCT | [id number] | | [facility] | | | UNIT # | | | DEPARTMENT | | | | | | OF | | | | | | PATHOLOGY | | + + + + + + | UNIT ABO | O | | [facility] | | | | | | DEPARTMENT | | | | | | OF | | | | | | PATHOLOGY | | + + + + + + | UNIT RH | POS | | [facility] | | | | | | DEPARTMENT | | | | | | OF | | | | | | PATHOLOGY | | + + + + + + | STATUS OF | Returned to Blood Bank | | [facility] | | | UNIT | | | DEPARTMENT | | | | | | OF | | | | | | PATHOLOGY | | + + + + + + | EXPIRATION | [id number] | | [facility] | | | DATE | | | DEPARTMENT | | | | | | OF | | | | | | PATHOLOGY | | + + + + + + | BLOOD TYPE | [phone] | | [facility] | | | BARCODE | | | DEPARTMENT | | | | | | OF | | | | | | PATHOLOGY | | + + + + + + | BLOOD | [id number] | | [facility] | | | PRODUCT | | | DEPARTMENT | | | CODE | | | OF | | | | | | PATHOLOGY | | + + + + + + + + | Specimen | + + | | + + + + + + + | Performing | Address | City/State/Zipcode | Phone Number | | Organization | | | | + + + + + | [facility] DEPARTMENT OF | [address] | [place] [address] | | | PATHOLOGY | [address] | | | + + + + + RAINBOW HOLD TUBE - RED TOP (05/08/2015 1:57 AM PDT) + + | Specimen | + + | Blood - Blood | | (substance) | + + + + + + + | Performing | Address | City/State/Zipcode | Phone Number | | Organization | | | | + + + + + | [facility] | [address] | [place] [address] | | | SERVICES, CORE | [address] | | | + + + + + ANTIBODY SCREEN (05/08/2015 1:28 AM PDT) + + + + + [...] | [facility] | [address] | [place] [address] | | | SERVICES, | [address] | | | | TRANSFUSION MEDICINE | | | | + + + + + ABO & RH TYPE (05/08/2015 1:28 AM PDT) + + + + + [...] | + + + + + | [facility] | [address] | [place] [address] | | | SERVICES, | [address] | | | | TRANSFUSION MEDICINE | | | | + + + + + CBC AND AUTO DIFF (05/08/2015 1:28 AM PDT) + + + + + + | Component | Value | Ref Range | Performed | Pathologist | | | | | At | Signature | + + + + + + | WHITE CELL | 11.08 (H) | 4.40 - 11.00 | [facility] [...] + + + + | HEMOGLOBIN | 12.0 | 12.0 - 16.0 | [facility] | | | | | g/dL | LABORATORY | | | | | | SERVICES, | | | | | | CORE | | + + + + + + | HEMATOCRIT | 38.1 | 36.0 - 46.0 % | [facility] | | | | | | LABORATORY | | | | | | SERVICES, | | | | | | CORE | | + + + + + + | MCV | 83.6 | 80.0 - 96.0 fL | [facility] [...] + + + + | PLATELET | 328 | 150 - 400 K/cu | [facility] | | | COUNT | | mm | LABORATORY | | | | | | SERVICES, | | | | | | CORE | | + + + + + + | MPV | 10.5 | 9.7 - 12.3 fL | [facility] [...] + + + + | NEUTROPHIL | 58.0 | 50.0 - 70.0 % | [facility] | | | % | | | LABORATORY | | | | | | SERVICES, | | | | | | CORE | | + + + + + + | LYMPHOCYTE | 32.4 | 18.0 - 42.0 % | [facility] | | | % | | | LABORATORY | | | | | | SERVICES, | | | | | | CORE | | + + + + + + | MONOCYTE % | 6.6 | 3.5 - 9.0 % | [facility] | | | | | | LABORATORY | | | | | | SERVICES, | | | | | | CORE | | + + + + + + | EOS % | 2.2 | 1.0 - 3.0 % | [facility] [...] + + + | IG% | 0.3Comment: Immature | 0.0 - 0.6 % | [facility] | | | | Granulocytes (IG) | | LABORATORY | | | | include metamyelocytes, | | SERVICES, | | | | myelocytes and | | CORE | | | | promyelocytes. Bands | | | | | | are not included in the | | | | | | IG count. Bands are | | | | | | included in the | | | | | | neutrophil count. | | | | + + + + + + | NEUTROPHIL | 6.44 | 1.80 - 7.70 | [facility] | | | # | | K/cu mm | LABORATORY | | | | | | SERVICES, | | | | | | CORE | | + + + + + + | LYMPHOCYTE | 3.59 | 1.00 - 4.80 | [facility] | | | # | | K/cu mm | LABORATORY | | | | | | SERVICES, | | | | | | CORE | | + + + + + + | MONOCYTE # | 0.73 | 0.10 - 0.90 | [facility] | | | | | K/cu mm | LABORATORY | | | | | | SERVICES, | | | | | | CORE | | + + + + + + | EOS # | 0.24 | 0.00 - 0.50 | [facility] | [...] | IG# | 0.03 | 0.00 - 0.03 | [facility] | | | | | K/cu mm | LABORATORY | | | | | | SERVICES, | | | | | | CORE | | + + + + + + + + | Specimen | + + | Blood - Blood | | (substance) | + + + + + | Narrative | Performed At | + + + | Immature Granulocytes (IG) include metamyelocytes, myelocytes | [facility] | | and promyelocytes. Bands are not included in the IG count. Bands are | LABORATORY | | included in the neutrophil count. | [facility] | + + + + + + + + | Performing | Address | City/State/Zipcode | Phone Number | | Organization | | | | + + + + + | [facility] | [address] | [place] [address] | | | [place] | [address] | | | + + + + + INR (05/08/2015 1:28 AM PDT) + +-------+ + + + | Component | Value | Ref Range | Performed | Pathologist | | | | | At | Signature | + +-------+ + + + | INR | 1.02 | 0.90 - 1.20 INR | [facility] [...] | + + + + + | [facility] | [address] | [place] [address] | | | [place] | [address] | | | + + + + + BASIC METABOLIC SET (NA, K, CL, TCO2, BUN, CR, GLU, CA) (05/08/2015 1:28 AM PDT) + +---------+ + + + | Component | Value | Ref Range | Performed | Pathologist | | | | | At | Signature | + +---------+ + + + | GLUCOSE, | 91 | 60 - 99 mg/dL | [facility] [...] +---------+ + + + | CREATININE | 0.79 | 0.60 - 1.10 | [facility] | | | PLASMA | | mg/dL | LABORATORY | | | (LAB) | | | SERVICES, | | | | | | CORE | | + +---------+ + + + | EGFR | >60 | >60 mL/min | [facility] | | | - | | | LABORATORY | | | [place] | | | SERVICES, | | | | | | CORE | | + +---------+ + + + | EGFR NON | >60 | >60 mL/min | [facility] | | | -LEXIE | | | LABORATORY | | | RICAN | | | SERVICES, | | | | | | CORE | | + +---------+ + + + | SODIUM, | 140 | 136 - 145 | [facility] | [...] +---------+ + + + | CHLORIDE, | 109 (H) | 97 - 108 mmol/L | [...] +---------+ + + + | CALCIUM, | 8.9 | 8.6 - 10.2 | [facility] | [...] | + + + + + | 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, soft tissue, | | and skin | + + | Spinal cord tumor [...] | acetaminophen (TYLENOL) tablet | Given | 05/08/20 | 650 mg | | | | 325-650 mg 325-650 mg, oral, | | 15 10:05 | | | | | EVERY 6 HOURS NEEDED, Starting | | AM PDT | | | | | 05/08/15 at 0513, Until Sun | | | | | | | 05/09/15 at 1311, pain or fever | | | | | | | greater than 38.5 degrees C | | | | | | + +--------+ +--------+------+------+ +---+---+ | | | +---+---+ + +---------+ +-------+---+---+ | gadodiamide (OMNISCAN) IV 17 mL | New Bag | 05/08/20 | 17 mL | | | | 17 mL, intravenous, PROCEDURE | | 15 9:29 | | | | | ONCE, 1 dose, 05/08/15 at | | AM PDT | | | | | 0930 | | | | | | + +---------+ +-------+---+---+ +---+---+ | | | +---+---+ + +-------+ +------+---+---+ | polyethylene glycol (MIRALAX) | Given | 05/08/20 | 17 g | | | | powder 17 g 17 g, oral, DAILY, | | 15 10:05 | | | | | First dose on 05/08/15 at | | AM PDT | | | | | 0900, Until Discontinued | | | | | | + +-------+ +------+---+---+ +---+---+ | | | +---+---+ + +-------+ +---------+---+---+ | senna-docusate (SENOKOT S) | Given | 05/08/20 | 2 | | | | 8.6-50 mg 2 tablet 2 tablet, | | 15 10:05 | tablets | | | | oral, TWICE DAILY, First dose on | | AM PDT | | | | | 05/08/15 at 0900, Until | | | | | | | Discontinued | | | | | | + +-------+ +---------+---+---+ +---+---+ | | | +---+---+ documented in this encounter"
--- OUTSIDE RECORDS SUMMARY | ~2019-11-28 | XMS | Encounter Summary ---
Demographics + + + | Address | [address] | | | [place] [address] | + + + | Home Phone | | + + + | Preferred Language | Unknown | + + + | Marital Status | Single | + + + | Jew Affiliation | NON | + + + | Race | White | + + + | Ethnic Group | Not or | + + + Author + + + | Author | [facility] | + + + | Organization | [facility] | + + + | Address [...] Team Providers + +------+ + | Care Nail Welter Name | Role | Phone | + +------+ + | Tiff Chapin | PCP | | + +------+ + Reason for Visit + + + | Reason | Comments | + + + | Referral to social | | | worker | | + + + Encounter Details +--------+ + + + + | Date | Type | Department | Care Team | Description | +--------+ + + + + | 05/12/ | Telephone | SOCIAL WORK | Zara Noonan | Referral to social | | 2014 | | AM[facility]ORY [address] | worker | | | | [address] | Marla Abdul [place], | | | | | Mailcode: CH6A | [place] [address] | | | | | [place], [place] | | | | | | [address] | | | | | | [phone] | | | +--------+ + + + [...] | | 2019 | | | [place] [address] | | | | | | [place] [facility] [place] | | | | | | [address] | | | | | | [phone] | | | | | | | | +--------+ + + + + | 12/10/ | Office | Neurological Surgery | April Beck MD | | | 2020 | Visit | | [address] | | | | | | [address] | | | | | | [place] | | | | | | [address] | | | | | | [phone] | | | | | | | | +--------+ + + + + documented as of this encounter Visit Diagnoses Not on filedocumented in this encounter"
--- OUTSIDE RECORDS SUMMARY | ~2019-11-28 | XMS | Encounter Summary ---
Demographics + + + | Address | [address] | | | [place] [address] | + + + | Home Phone | | + + + | Preferred Language | Unknown | + + + | Marital Status | Single | + + + | Restorationist Affiliation | NON | + + + | Race | White | + + + | Ethnic Group | Not or | + + + Author + + + | Author | [facility] | + + + | Organization | [facility] | + + + | Address [...] Team Providers + +------+ + | Care Photograph Editor Name | Role | Phone | + [...] | | | | MRI SPINE | [place], [place] | Research | | | | | THORACIC WWO | [address] | Center | | | | | CONTRAST | Phone: | [place], [place] | | | | | [place] MRI, | [phone] | [address] | | | | | DORSAL SPINE | Fax: | Phone: | | | | | COMBO | [phone] | [phone] | | | | | | | Fax: | | | | | | | [phone] | +--------+--------+ + + + + Reason for Visit Diagnostic Testing (Routine) +--------+--------+ + + + + | Status | Reason | Specialty | Diagnoses / | Referred By | Referred To | | | | | Procedures | Contact | Contact | +--------+--------+ + + + + | Closed | | Radiology | Diagnoses | Doss, | [facility] | | | | | Spinal cord | Raegan Nieves, | [address] | | | | | tumor | PA-C [address] | | | | | Procedures | [address] | [address] | | | | | MRI SPINE | [place], [place] | Research | | | | | THORACIC WWO | [address] | Center | | | | | CONTRAST | Phone: | [place], [place] | | | | | [facility] MRI, | [phone] | [address] | | | | | DORSAL SPINE | Fax: | Phone: | | | | | COMBO | [phone] | [phone] | | | | | | | Fax: | | | | | | | [phone] | +--------+--------+ + + + + Encounter Details +--------+ + + + + | Date | Type | Department | Care Team | Description | +--------+ + + + + | 06/04/ | Hospital | Radiology/Imaging | Raegan Doss, | | | 2017 | Encounter | Lab at [facility] [address] | PA-C [address] | | | | | [address] [place] Mailcode: | [place], [place] | | | | | [facility] | [address] | | | | | Health and Healing, | [phone] | | | | | [place] [address], [facility] | | | | | | Floor [place], [place] | | | | | | [address] | | | | | | [phone] | | | +--------+ + + + [...] | | | | | | [place], [place] | | | | | | [address] | | | | | | [phone] | | | | | | | | +--------+ + + + + | 12/10/ | Office | Neurological Surgery | April Beck MD | | | 2019 | Visit | | [address] | | | | | | [address] | | | | | | [place], [place] | | | | | | [address] | | | | | | [phone] | | | | | | | | +--------+ + + + + documented as of this encounter Procedures + +--------+ + + + | Procedure Name | Priori | Date/Time | Associated Diagnosis | Comments | | | ty | | | | + +--------+ + + + | MRI SPINE THORACIC | Routin | 06/04/2017 | Spinal cord tumor | Results for this | | WWO CONT | e | 2:38 PM | | procedure are in the [...] gadoterate meglumine (DOTAREM) | IV Push | 06/04/20 | 14 mL | | | | 0.5 mmol/mL injection 14 mL 14 | | 17 2:19 | | | | | mL, intravenous, ONCE, 1 dose, | | PM PST | | | | | 06/04/17 at 1500 | | | | | | + +---------+ +-------+------+------+ +---+---+ | | | +---+---+ documented in this encounter"
--- OUTSIDE RECORDS SUMMARY | ~2019-11-28 | XMS | Encounter Summary ---
Demographics + + + | Address | [address] | | | [place] [address] | + + + | Home Phone [...] Author + + + | Author | [facility] | + + + | Organization | [facility] | + + [...] Team Providers + +------+ + | Care Pediatric Assistant Name | Role | Phone | + [...] | Procedures | [address] | [address] [place] | | | | | MRI SPINE | [facility], [place] | Research | | | | | LUMBAR WWO | [address] | Center | | | | | CONTRAST [place] | Phone: | [place], [place] | | | | | MRI, LUMBAR | [phone] | [address] | | | | | SPINE COMBO | Fax: | Phone: | | | | | | [phone] | [phone] | | | | | | | Fax: | | | | | | | [phone] | +--------+--------+ + + + + Reason [...] | | | | MRI SPINE | [facility], [place] | Research | | | | | LUMBAR WWO | [address] | Center | | | | | CONTRAST [place] | Phone: | [place], [place] | | | | | MRI, LUMBAR | [phone] | [address] | | | | | SPINE COMBO | Fax: | Phone: | | | | | | [phone] | [phone] | | | | | | | Fax: | | | | | | | [phone] | +--------+--------+ + + + + Encounter Details +--------+ + + + + | Date | Type | Department | Care Team | Description | +--------+ + + + + | 11/29/ | Hospital | Radiology/Imaging | Raegan Doss, | | | 2018 | Encounter | Lab at [facility] [address] | PA-C [address] | | | | | [address] Mailcode: | [place], [place] | | | | | [facility] | [address] | | | | | Health and Healing, | [phone] | | | | | [address] | | | | | | Floor [place], [place] | | | | | | [address] | | | | | | [phone] | | | +--------+ + + + [...] + | Weight | 72.6 kg (160 lb 0.9 | 11/29/2017 6:05 PM | | | | oz) | PDT | | + + + + + | Height | - | - | | + + + + + | Body Mass Index | 28.35 | 11/26/2017 1:59 PM | | | | | PDT | | + + + + + documented in this encounter Plan of Treatment [...] | | | | | | [place], [place] | | | | | | [address] | | | | | | [phone] | | | | | | | | +--------+ + + + + | 12/10/ | Office | Neurological Surgery | April Beck MD | | | 2019 | Visit | | [address] [facility] | | | | | | [address] | | | | | | [place], [place] | | | | | | [address] | | | | | | [phone] | | | | | | | | +--------+ + + + + documented as of this encounter Procedures + +--------+ + + + | Procedure Name | Priori | Date/Time | Associated Diagnosis | Comments | | | ty | | | | + +--------+ + + + | MRI SPINE LUMBAR WWO | Routin | 11/29/2017 | Thoracic spine | Results for this | | CONTR | e | 6:40 PM | tumor | procedure are in the | | | | PDT | | results section. | + +--------+ + + + documented in this encounter Results MRI SPINE LUMBAR WWO [...] gadoterate meglumine (DOTAREM) | IV Push | 11/30/19 | 15 mL | | | | 0.5 mmol/mL injection 15 mL 15 | | 18 6:34 | | | | | mL (rounded from 14.52 mL = 0.2 | | PM PDT | | | | | mL/kg | | | | | | | 72.6 kg), intravenous, ONCE, 1 | | | | | | | dose, [facility] 11/29/17 at 1845 | | | | | | + +---------+ +-------+------+------+ +---+---+ | | | +---+---+ documented in this encounter"
--- OUTSIDE RECORDS SUMMARY | ~2019-11-28 | XMS | Encounter Summary ---
Demographics + + + | Address | [address] | | | [place] [address] | + + + | Home Phone | | + + + | Preferred Language | Unknown | + + + | Marital Status | Single | + + + | Orthodox Affiliation | NON | + + [...] Team Providers + +------+ + | Care Sulfuric Acid Plant Operator Name | Role | Phone [...] 10/01/ | Telephone | Neurosurgery at | Rajinder Luis MD | Other | | 2019 | | [facility] | [address] | | | | | and Healing [address] | [place], [place] | | | | | [address] Mailcode: | [address] | | | | | [facility] | [phone] | | | | | Health and Healing, | | | | | | [facility] [address] | | | | | | Floor [place], [place] | | | | | | [address] | | | | | | [phone] | | | +--------+ + + + [...] [address] | | | | | | [place] | | | | | | [address] | | | | | | [phone] | | | | | | | | +--------+ + + + + | 12/10/ | Office | Neurological Surgery | April Beck MD | | | 2019 | Visit | | [address] | | | | | | [address] | | | | | | [facility] [place] | | | | | | [address] | | | | | | [phone] | | | | | | | | +--------+ + + + + documented as of this encounter Visit Diagnoses Not on filedocumented in this encounter"
--- OUTSIDE RECORDS SUMMARY | ~2019-11-28 | XMS | Encounter Summary ---
Demographics + + + | Address | [address] | | | [place] [address] | + + + | Home Phone [...] Team Providers + +------+ + | Care Knot Picker Cloth Name | Role | Phone | + +------+ + | Clare Franks MD | PCP | | + +------+ + Reason for Visit +--------+ + | Reason | Comments | +--------+ + | Other | leg weakness | +--------+ + AUTH/CERT +--------+--------+ + + [...] Description | +--------+---------+ + + + | 03/22/ | Surgery | 6A Intra Op [id number] | Rajinder Luis MD | THORACIC LAMINECTOMY | | 2016 | | [address] [facility] | [address] | FOR RESECTION OF | | | | [address] [facility] | [place], [place] | INTRINSIC SPINAL | | | | Hospital Admitting | [phone] | CORD TUMOR | | | | Desk Located on the | [phone] | | | | | 9th floor | | | | | | [facility] [place] | | | | | | [phone] | | | +--------+---------+ + + + [...] + + + | Blood Pressure | 105/58 | 03/28/2016 9:24 AM | | | | | PDT | | + + + + + | Pulse | 60 | 03/28/2016 9:24 AM | | | | | PDT | | + + + + + | Temperature | 36.6 C (97.9 F) | 03/28/2016 9:24 AM | | | | | PDT | | + + + + + | Respiratory Rate | 14 | 03/28/2016 9:24 AM | | | | | PDT | | + + + + + | Oxygen Saturation | 97% | 03/28/2016 9:24 AM | | | | | PDT | | + + + + + | Inhaled Oxygen | - | - | | | Concentration | | | | + + + + + | Weight | 86.2 kg (190 lb 0.6 | 03/28/2016 6:43 AM | | | | oz) | PDT | | + + + + + | Height | 160 cm (5' 3") | 03/21/2016 8:43 PM | | | | | PDT | | + + + + + | Body Mass Index | 33.66 | 03/21/2016 8:43 PM | | | | | PDT | | + + + + + documented in this encounter Discharge Summaries Raegan Doss PA-C - 03/28/2016 7:46 AM PDTFormatting of this note might be different f rom the original. NEUROSURGERY DISCHARGE SUMMARY: Patient: Matt Fagan Admission Date: 03/21/2016 Discharge Date: 03/28/2016 Attending Physician: Rajinder Luis MD PCP: Clare Chowdary MD Service: [facility] Neurosurgery Diagnoses Principal Final Diagnosis: 1. Residual glioneuronal thoracic cord tumor 2. Existing RLE weakness 3. New LLE weakenss Additional Diagnoses: Past Medical History: Other and unspecified symptoms and signs invol* Thoracic spine tumor Procedures 03/22/16 1. Right T8 and T9 hemilaminectomy 2. Resection of T8 level tumor 3. Resection of T9 level tumor 4. Use of operating microscope 5. Use of neuromonitoring Brief Hospital Course Matt Fagan is a 25 y.o. 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 The patient was admitted [facility] on 03/21/2016 for a right-sided T8 and T9 hemilaminectomy for resection of T8 intradural and T9 intradural intra-axial tumor on 03/22/16 after the patient experienced new LLE weaknes s. The inpatient stay related to this procedure(s) took an uncomplicated perioperative cour se and the patient was followed closely by the attending providers, resident providers, and medical/nursing staff. Post operatively, the patient was transferred to the [facility] for ongoing convalescent care. Sh e remained flat X 24 hours, after which she worked with physical and occupational therapy. S urgical pain was managed with medication. Surgical pathology showed recurrent/residual low-g rade glioneuronal tumor. The patient made appropriate gains toward activity and functional g oals while an inpatient. The patient worked with our rehabilitation team with recommendation for IPR upon discharge. While on the hospital floor, the patient tolerated oral intake sufficient to maintain nutri tion and hydration. The surgical wound remained clean, dry, and intact without signs concern ing for infection. The [facility], and e patient and/or family members agree with this [...] while taking oral narcotics/pain medications. Follow Up 1) You have an appointment with Raegan Doss PA-C at 1:15 PM on 04/10/16. YOU CAN RESCHEDUL E THIS IF YOU ARE STILL ADMITTED AT [facility]. [facility] 8th [facility] the [facility] [place]Note 2] located at [address] [place] [address]. Pleas e call [phone] if you have any questions or concerns before your appointment time. 2) You will need to call and schedule a repeat thoracic MRI in one month (around 04/21/16) to evaluate for possible radiation needs. Destination: Destination: Inpatient Rehab Condition on Discharge Good Discharge POLST completed No Discharge Follow Up - Facility MD to follow Facility MD to follow patient. PCP:Clare Chowdary MD When: Please follow-up with your [...] Medication List START taking these medications Details HYDROmorphone 2 mg oral tablet Take 1-3 tablets by mouth every three hours as needed for mo derate pain. Qty: 140 tablet, Refills: 0 Associated Diagnoses: Thoracic spine tumor menthol 5 mg mucous membrane lozenge Take 1 lozenge by mouth as needed. Qty: 25 lozenge, Refills: 0 Associated Diagnoses: Thoracic spine tumor CONTINUE these medications which have CHANGED or have new prescriptions Details baclofen 10 mg oral tablet Take 1 tablet by mouth once daily at bedtime as needed. Indicati ons: MUSCLE SPASTICITY OF SPINAL ORIGIN Qty: 60 tablet, Refills: 0 enoxaparin 40 mg/0.4 mL subcutaneous syringe Inject 0.4 mL under the skin (SUBC) once daily in the evening. Okay to discontinue at discretion of house MD or when patient is ambulating >150ft TID. Qty: 1 mL, Refills: 0 traZODone 50 mg oral tablet Take 1.5 tablets by mouth once daily at bedtime as needed. Qty: 30 tablet, Refills: 0 CONTINUE these medications which have NOT CHANGED Details acetaminophen 325 mg oral tablet Take 1-2 tablets by mouth every six hours as needed (pain or fever greater than 38.5 degrees C). bisacodyl 10 mg rectal suppository Insert 1 suppository rectally once daily as needed for c onstipation (for no BM in past 2 days). Qty: 20 suppository, Refills: 0 dexamethasone 2 mg oral tablet Starting at 2200hrs on 09/14: Taking 2mg q8h x 3 doses Then take 2mg q12h x 2 doses Then take 2mg x 1 dose on 09/17 at 0900hrs then stop. Qty: 6 tablet, Refills: 0 diphenhydrAMINE 25 mg oral capsule Take 1 capsule by mouth every six hours as needed. Qty: 60 capsule, Refills: 0 LORazepam 0.5 mg oral tablet [...] >2 days). Qty: 119 g, Refills: 1 scopolamine 1.5 mg (1 mg over 3 days) transdermal patch 3 day Apply 1 patch to skin every s eventy-two hours as needed (nausea). Qty: 1 each, Refills: 0 senna-docusate 8.6-50 mg oral tablet Take 2 tablets by mouth twice daily as needed (for no bowel movement in >2 days). Qty: 15 tablet, Refills: 1 STOP taking these medications bisacodyl EC 5 mg oral tablet,delayed release (DR/EC) Comments: Reason for Stopping: gabapentin 300 mg oral capsule Comments: Reason for Stopping: zolpidem 5 mg oral tablet Comments: Reason for [...] be removed at 2 weeks post-op, around 04/05 or at your follow up Neurosurgery clinic visit on 04/10. Special Instructions/Tests: Please call to schedule a repeat thoracic MRI around mid-Octobe r. Condition On Discharge: Good Vital Signs at discharge as appropriate: BP: 95/54 mmHg (03/28/16428) Pulse: 61 (03/28/16428) Resp: 16 (428) Weight: 86.2 kg (190 lb 0.6 oz) (03/28/16642) Discharge Patient To: Inpatient Rehab - [facility] Does patient have a planned readmission: No Discharge Summary Completed?: Yes. 03/28/2016 Discharging Provider: Raegan Doss PA-C Date Completed: 03/28/2016 Time Completed: 7:46 AM Discharging Attending: Rajinder Luis MD [facility] [address] [address]/[place] [address] documented in this encounter Progress Notes Raegan Doss PA-C - 03/28/2016 7:46 AM PDTFormatting of this note might be different f rom the original. Neurosurgery Progress Note Hospital Day:7 Author; Raegan Doss PA-C Attending Physician: Rajinder Luis MD Interval Hx: No acute events overnight. Pt states she is looking forward to going to [facility] today. Pt state s her BLE sensation is back at her recent pre-op baseline. Straight cathed x2 overnight. Last Vitals: BP 95/54 | Pulse 61 | Temp 36.4 C (97.5 F) | RR 16 | Ht 1.6 m (5' 3") | Wt 86.2 kg (190 lb 0.6 oz) | SpO2 94% | BMI 33.67 kg/(m^2) O2 Delivery Device: None (room air) (03/28/16428) 24 Hour Vital Min/Max: Systolic (24hrs), Av mmHg, Min:91 mmHg, Max:113 mmHgDiastolic (24hrs), Av mmHg, Mi n:48 mmHg, Max:62 mmHgPulse Min: 61 Max: 87 Temp Min: 36.4 C (97.5 F) Max: 37.1 C (98.8 F) Resp Min: 16 Max: 16 SpO2 Min: 94 % Max: 98 % Intake/Output Summary (Last 24 hours) at 03/28/16745 Last data filed at 03/28/16428 Gross per 24 hour Intake 1700 ml Output 1900 ml Net -200 ml Exam: Alert, oriented x3. Speech clear, fluent. Gaze conjugate. Face symmetric. Thoracic incision: moderate swelling under skin, no erythema, dry. [place] in place. Sensation: LT sensation at pre-op baseline of patchy sensation in BLE Motor: BUE is 5/5. LLE is 5/5. RLE is 4+ in ADF, KE and HF, otherwise is 5/5 in APF, KF. Labs: CBC with diff last 72 hours (or 3 results) Recent Labs 03/26/16 0714 03/27/16 0656 WBC 12.86* 11.41* HB 12.1 12.1 HCT 38.6 37.4 PLT 265 290 Chemistries: Last 72 Hours (or 3 results): Recent Labs 03/25/16 0951 03/26/16 0714 03/27/16 0656 NA -- 139 137 K -- 3.6 3.7 CL -- 105 101 BICARB -- 26 29 BUN -- 15 15 CR -- 0.65 0.78 GLU 105* 86 83 CA -- 9.0 8.4* PO4 -- 2.8 3.2 Current Medications: acetaminophen (TYLENOL) tablet 325-650 mg, 325-650 mg, oral, Q6H PRN OR acetaminophen ( TYLENOL) tablet 325-650 mg, 325-650 mg, feeding tube, Q6H PRN OR acetaminophen (TYLENOL) suppository 325-650 mg, 325-650 mg, rectal, Q6H PRN baclofen (LIORESAL) tablet 10 mg, 10 mg, oral, HS PRN bisacodyl (DULCOLAX) suppository 10 mg, 10 mg, rectal, DAILY PRN bisacodyl EC (DULCOLAX) tablet 5 mg, 5 mg, oral, DAILY PRN diphenhydrAMINE (BENADRYL) capsule 25 mg, 25 mg, oral, Q6H PRN enoxaparin (LOVENOX) injection 40 mg, 40 mg, subcutaneous, QPM HYDROmorphone (DILAUDID) injection 0.2-0.6 mg, 0.2-0.6 mg, intravenous, Q2H PRN HYDROmorphone (DILAUDID) tablet 2-6 mg, 2-6 mg, oral, Q3H PRN LORazepam (ATIVAN) tablet 0.5 mg, 0.5 mg, oral, Q6H PRN magnesium citrate liquid 296 mL, 296 mL, oral, DAILY PRN magnesium hydroxide (MILK OF MAGNESIA) suspension 30 mL, 30 mL, oral, DAILY PRN menthol (COUGH DROPS) lozenge 5 mg, 1 lozenge, oral, PRN multivitamin (THERA VITAMIN) 1 tablet, 1 tablet, oral, DAILY [] ondansetron (ZOFRAN) injection 4 mg, 4 mg, intravenous, Q12H FOLLOWED BY onda nsetron (ZOFRAN) injection 4 mg, 4 mg, intravenous, Q12H PRN polyethylene glycol (MIRALAX) powder 34 g, 34 g, oral, TID PRN scopolamine (TRANSDERM-SCOPE) 1.5 mg (1 mg over 3 days) 1 patch, 1 patch, transdermal, ONCE senna-docusate (SENOKOT S) 8.6-50 mg 1 tablet, 1 tablet, oral, BID simethicone chew (MYLICON) tablet 80 mg, 80 mg, oral, TID PRN traZODone (DESYREL) dose 75 mg, 75 mg, oral, HS Impression: 25YOF with 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 Strength intermittent in RLE post-op, 4-5/5. Sensation decreased in BLE at baseline. Wound clean. Plan: Neuro: Pain control with dilaudid and APAP. Baclofen 10mg qHS prn muscle spasms. Ativan prn anxiety. Trazodone 75mg qHS insomnia. 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 Plan to repea t thoracic MRI in one month and evaluation for possible radiation needs at that time. HEENT/Derm: Menthol drops prn mouth soreness. Routine wound care to spinal incision - pleas e leave open to air. Okay to wash daily. [place] will need to be removed at 2 weeks post-op, on 04/05. This can be completed at [facility] or at the [facility] follow up visit. CV: HD stable. Pulm: IS, cough/deep breath GI/diet: Regular diet. Cont home MV daily. +Anti-emetics. Bowel regimen prn. : Voiding independently with high PVRs (similar to course following previous surgeries). Will SC for PVRs >350mL. Musculoskeletal/skin: Routine decubitus ulcer prevention. Appreciate PT/OT involvement. ID/Heme: Afebrile. Leukocytosis resolved to 11 from 22. DVT ppx: SCDs while in bed. On ppx Lovenox qHS. Dispo: To [facility] today at 11am. Will see patient back in clinic in 1 month with a repeat [place]. Raegan Doss PA-C [facility] [address] [facility] [address] dams, PHILIPPE Mena - 03/27/2016 4:51 PM PDT Neurosurgery Progress Note Hospital Day:6 Author; Raegan Doss PA-C Attending Physician: Rajinder Luis MD Interval Hx: -Patient reports transient RLE weakness. Reports continued LLE numbness and new RLE patchy numbness. Last Vitals: BP 113/62 | Pulse 87 | Temp 36.5 C (97.7 F) | RR 16 | Ht 1.6 m (5' 3") | W t 85.8 kg (189 lb 2.5 oz) | SpO2 98% | BMI 33.52 kg/(m^2) O2 Delivery Device: None (room air ) (03/27/16 1637) 24 Hour Vital Min/Max: Systolic (24hrs), Av mmHg, Min:86 mmHg, Max:113 mmHgDiastolic (24hrs), Av mmHg, Min :48 mmHg, Max:62 mmHgPulse Min: 67 Max: 87 Temp Min: 36.5 C (97.7 F) Max: 37.1 C (98.8 F) Resp Min: 16 Max: 16 SpO2 Min: 95 % Max: 98 % Intake/Output Summary (Last 24 hours) at 03/27/16 1652 Last data filed at 03/27/16 1637 Gross per 24 hour Intake 1295 ml Output 750 ml Net 545 ml Exam: Alert, oriented x3. Speech clear, fluent. Gaze conjugate. Face symmetric. Thoracic incision: flat, intact, mild erythema, dry. Wale present. Sensation: LT sensation decreased and patchy in BLE and lower trunk. Motor: Full strength throughout in BLE (APF, ADF, EHL, HF, KE) and BUE. Labs: CBC with diff last 72 hours (or 3 results) Recent Labs 03/25/16 0651 03/26/16 0714 03/27/16 0656 WBC 12.59* 12.86* 11.41* HB 11.9* 12.1 12.1 HCT 37.2 38.6 37.4 PLT 267 265 290 Chemistries: Last 72 Hours (or 3 results): Recent Labs 03/25/16 0651 03/25/16 0951 03/26/16 0714 03/27/16 0656 NA 138 -- 139 137 K 3.9 -- 3.6 3.7 CL 106 -- 105 101 BICARB 26 -- 26 29 BUN 12 -- 15 15 CR 0.56* -- 0.65 0.78 GLU 108* 105* 86 83 CA 8.7 -- 9.0 8.4* PO4 2.9 -- 2.8 3.2 Current Medications: acetaminophen (TYLENOL) tablet 325-650 mg, 325-650 mg, oral, Q6H PRN OR acetaminophen ( TYLENOL) tablet 325-650 mg, 325-650 mg, feeding tube, Q6H PRN OR acetaminophen (TYLENOL) suppository 325-650 mg, 325-650 mg, rectal, Q6H PRN baclofen (LIORESAL) tablet 10 mg, 10 mg, oral, HS PRN bisacodyl (DULCOLAX) suppository 10 mg, 10 mg, rectal, DAILY PRN bisacodyl EC (DULCOLAX) tablet 5 mg, 5 mg, oral, DAILY PRN diphenhydrAMINE (BENADRYL) capsule 25 mg, 25 mg, oral, Q6H PRN enoxaparin (LOVENOX) injection 40 mg, 40 mg, subcutaneous, QPM HYDROmorphone (DILAUDID) injection 0.2-0.6 mg, 0.2-0.6 mg, intravenous, Q2H PRN HYDROmorphone (DILAUDID) tablet 2-6 mg, 2-6 mg, oral, Q3H PRN LORazepam (ATIVAN) tablet 0.5 mg, 0.5 mg, oral, Q6H PRN magnesium citrate liquid 296 mL, 296 mL, oral, DAILY PRN magnesium hydroxide (MILK OF MAGNESIA) suspension 30 mL, 30 mL, oral, DAILY PRN menthol (COUGH DROPS) lozenge 5 mg, 1 lozenge, oral, PRN multivitamin (THERA VITAMIN) 1 tablet, 1 tablet, oral, DAILY [] ondansetron (ZOFRAN) injection 4 mg, 4 mg, intravenous, Q12H FOLLOWED BY onda nsetron (ZOFRAN) injection 4 mg, 4 mg, intravenous, Q12H PRN polyethylene glycol (MIRALAX) powder 34 g, 34 g, oral, TID PRN scopolamine (TRANSDERM-SCOPE) 1.5 mg (1 mg over 3 days) 1 patch, 1 patch, transdermal, ONCE senna-docusate (SENOKOT S) 8.6-50 mg 1 tablet, 1 tablet, oral, BID simethicone chew (MYLICON) tablet 80 mg, 80 mg, oral, TID PRN traZODone (DESYREL) dose 75 mg, 75 mg, oral, HS Impression: 25YOF with 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 Strength intermittent in RLE post-op, 4-5/5. Sensation decreased in BLE at baseline with possible worsening of sensation post-op. Wound clean. Plan: Neuro: Pain control with dilaudid and APAP. Baclofen 10mg qHS prn muscle spasms. Ativan prn anxiety. Trazodone 75mg qHS insomnia. 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 Plan to repea t thoracic MRI in one month and evaluation for possible radiation needs at that time. HEENT/Derm: Menthol drops prn mouth soreness. Routine wound care to spinal incision - pleas e leave open to air. Okay to wash daily. Wale will need to be removed at 2 weeks post-op, on 04/05. CV: HD stable. Pulm: IS, cough/deep breath GI/diet: Regular diet. Cont home MV daily. +Anti-emetics. Bowel regimen prn. : Voiding independently with high PVRs (similar to course following previous surgeries). Will SC for PVRs >350mL. Musculoskeletal/skin: Routine decubitus ulcer prevention. Appreciate PT/OT involvement. ID/Heme: Afebrile. Leukocytosis resolved to 11 from 22. DVT ppx: SCDs while in bed. On ppx Lovenox qHS. Dispo: Likely dispo to [facility] tomorrow. Raegan Doss PA-C [facility] [address] [id number] [place] [address] Sumeet Malone MD - 03/26/2016 9:23 AM PDT NEUROSURGERY PROGRESS NOTE 03/26/2016 Hospital Day #: 5 Attending: Rajinder Luis MD Interval Events: BENJAMIN O/N. C/o 5/10 back pain without radiation. Ate dinner. Daniels remains in place. Last BM 03/21. Difficulty sleeping. Requesting scheduled trazodone qhs as per her home regimen. Objective: Last Vitals: BP 96/58 | Pulse 48 | Temp 36.5 C (97.7 F) | RR 16 | Ht 1.6 m (5' 3") | Wt 85.8 kg (189 lb 2.5 oz) | SpO2 98% | BMI 33.52 kg/(m^2) 24 Hour Vital Min/Max: Systolic (24hrs), Av mmHg, Min:80 mmHg, Max:113 mmHg Diastolic (24hrs), Av mmHg, Min:44 mmHg, Max:67 mmHg Pulse Min: 44 Max: 60 Temp Min: 36.3 C (97.3 F) Max: 36.8 C (98.2 F) Resp Min: 16 Max: 16 SpO2 Min: 95 % Max: 100 % Intake/Output Summary (Last 24 hours) at 03/26/16 09 Last data filed at 03/26/16 0549 Gross per 24 hour Intake 940 ml Output 1125 ml Net -185 ml Physical Exam: Awake, alert, oriented to self, time, place Following commands briskly PERRL EOMI L face asym during activation Tongue midline Strength: No pronator drift RUE: 5/5 HG/B/T LUE: 5/5 HG/B/T RLE: 4/5 HF/KE, 5/5 DF/PF LLE 5/5 HF/KE/DF/PF Decreased sensation to LT in LLE, abdomin, and distal RLE Incision c/d/i. No surrounding erythema, swelling or drainage. Labs: Lab Results Component Value Date/Time SODIUM, PLASMA (LAB) 139 03/26/2016 07:14 AM POTASSIUM, PLASMA (LAB) 3.6 03/26/2016 07:14 AM CREATININE PLASMA (LAB) 0.65 03/26/2016 07:14 AM HEMATOCRIT 38.6 03/26/2016 07:14 AM WHITE CELL COUNT 12.86* 03/26/2016 07:14 AM PLATELET COUNT 265 03/26/2016 07:14 AM ] Current Facility-Administered Medications Medication Dose Route Frequency acetaminophen (TYLENOL) tablet 325-650 mg 325-650 mg oral Q6H PRN Or acetaminophen (TYLENOL) tablet 325-650 mg 325-650 mg feeding tube Q6H PRN Or acetaminophen (TYLENOL) suppository 325-650 mg 325-650 mg rectal Q6H PRN baclofen (LIORESAL) tablet 10 mg 10 mg oral HS PRN bisacodyl (DULCOLAX) suppository 10 mg 10 mg rectal DAILY PRN bisacodyl EC (DULCOLAX) tablet 5 mg 5 mg oral DAILY PRN diphenhydrAMINE (BENADRYL) capsule 25 mg 25 mg oral Q6H PRN enoxaparin (LOVENOX) injection 40 mg 40 mg subcutaneous QPM HYDROmorphone (DILAUDID) injection 0.2-0.6 mg 0.2-0.6 mg intravenous Q2H PRN HYDROmorphone (DILAUDID) tablet 2-6 mg 2-6 mg oral Q3H PRN LORazepam (ATIVAN) tablet 0.5 mg 0.5 mg oral Q6H PRN magnesium citrate liquid 296 mL 296 mL oral DAILY PRN magnesium hydroxide (MILK OF MAGNESIA) suspension 30 mL 30 mL oral DAILY PRN menthol (COUGH DROPS) lozenge 5 mg 1 lozenge oral PRN multivitamin (THERA VITAMIN) 1 tablet 1 tablet oral DAILY ondansetron (ZOFRAN) injection 4 mg 4 mg intravenous Q12H PRN polyethylene glycol (MIRALAX) powder 34 g 34 g oral TID PRN scopolamine (TRANSDERM-SCOPE) 1.5 mg (1 mg over 3 days) 1 patch 1 patch transdermal ON CE senna-docusate (SENOKOT S) 8.6-50 mg 1 tablet 1 tablet oral BID simethicone chew (MYLICON) tablet 80 mg 80 mg oral TID PRN traZODone (DESYREL) dose 75 mg 75 mg oral HS Imaging: No new imaging ASSESSMENT: 25YOF with 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 Strength intact post-op. Sensation decreased in BLE at baseline with possi ble worsening of sensation post-op. Wound clean. PLAN: Neuro: LUBNA marks, activity as tolerated at this time. Stopped Dex 03/25. Pain control with dilaudid and APAP. Baclofen 10mg qHS prn muscle spasms. Ativan prn anxiety. Now scheduled Tr azodone 75mg qHS insomnia. Consult to physiatry with likely placement at [facility]. PT recs IPR. 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 Plan to repea t MRI in one month and evaluation for possible radiation needs at that time. HEENT/Derm: Menthol drops prn mouth soreness. Routine wound care to spinal incision - pleas e leave open to air. Okay to wash on 03/25. Wale will need to be removed at 2 weeks post-o p, on 04/05. CV: HD stable. Pulm: IS, cough/deep breath GI/diet: Regular diet. Cont home MV daily. +Anti-emetics. Bowel regimen prn. : Daniels in place. Will removed once patient is ambulatory. Musculoskeletal/skin: Routine decubitus ulcer prevention. Appreciate PT/OT recs. ID/Heme: Afebrile. Leukocytosis reduced to 12.86 - likely reactive to steroids. Will contin ue to monitor. DVT ppx: SCDs while in bed. ppx Lovenox. Dispo: Pending medical course, likely IPR at [facility]. Appreciate CM following. Sumeet Ross MD Neurological Surgery PGY1 aSumeet Blank MD - 03/25/2016 9:16 AM PDT . NEUROSURGERY PROGRESS NOTE 03/25/2016 Hospital Day #: 4 Attending: Rajinder Luis MD Interval Events: BENJAMIN O/N. No pain. Last BM 03/21. Objective: Last Vitals: BP 112/71 | Pulse 46 | Temp 36.6 C (97.9 F) | RR 14 | Ht 1.6 m (5' 3") | W t 85.8 kg (189 lb 2.5 oz) | SpO2 97% | BMI 33.52 kg/(m^2) 24 Hour Vital Min/Max: Systolic (24hrs), Av mmHg, Min:103 mmHg, Max:115 mmHg Diastolic (24hrs), Av mmHg, Min:52 mmHg, Max:71 mmHg Pulse Min: 46 Max: 57 Temp Min: 36.4 C (97.5 F) Max: 36.7 C (98.1 F) Resp Min: 14 Max: 17 SpO2 Min: 94 % Max: 98 % Intake/Output Summary (Last 24 hours) at 03/25/16 0916 Last data filed at 03/24/16 2335 Gross per 24 hour Intake 1165 ml Output 1400 ml Net -235 ml Physical Exam: Awake, alert, oriented to self, time, place Following commands briskly PERRL EOMI Face symmetric Tongue midline Strength: No pronator drift RUE: 5/5 HG/B/T LUE: 5/5 HG/B/T RLE: 4/5 HF/KE/DF/PF LLE 5/5 HF/KE/DF/PF Decreased sensation to LT in LLE, abdomin, and distal RLE Incision c/d/i. No surrounding erythema, swelling or drainage. Labs: Lab Results Component Value Date/Time SODIUM, PLASMA (LAB) 138 03/25/2016 06:51 AM POTASSIUM, PLASMA (LAB) 3.9 03/25/2016 06:51 AM CREATININE PLASMA (LAB) 0.56* 03/25/2016 06:51 AM HEMATOCRIT 37.2 03/25/2016 06:51 AM WHITE CELL COUNT 12.59* 03/25/2016 06:51 AM PLATELET COUNT 267 03/25/2016 06:51 AM ] Current Facility-Administered Medications Medication Dose Route Frequency acetaminophen (TYLENOL) tablet 325-650 mg 325-650 mg oral Q6H PRN Or acetaminophen (TYLENOL) tablet 325-650 mg 325-650 mg feeding tube Q6H PRN Or acetaminophen (TYLENOL) suppository 325-650 mg 325-650 mg rectal Q6H PRN baclofen (LIORESAL) tablet 10 mg 10 mg oral HS PRN bisacodyl (DULCOLAX) suppository 10 mg 10 mg rectal DAILY PRN diphenhydrAMINE (BENADRYL) capsule 25 mg 25 mg oral Q6H PRN enoxaparin (LOVENOX) injection 40 mg 40 mg subcutaneous QPM HYDROmorphone (DILAUDID) injection 0.2-0.6 mg 0.2-0.6 mg intravenous Q2H PRN HYDROmorphone (DILAUDID) tablet 2-6 mg 2-6 mg oral Q3H PRN LORazepam (ATIVAN) tablet 0.5 mg 0.5 mg oral Q6H PRN menthol (COUGH DROPS) lozenge 5 mg 1 lozenge oral PRN multivitamin (THERA VITAMIN) 1 tablet 1 tablet oral DAILY ondansetron (ZOFRAN) injection 4 mg 4 mg intravenous Q12H PRN polyethylene glycol (MIRALAX) powder 34 g 34 g oral TID PRN senna-docusate (SENOKOT S) 8.6-50 mg 1 tablet 1 tablet oral BID traZODone (DESYREL) dose 75 mg 75 mg oral HS PRN Imaging: No new imaging ASSESSMENT: 25YOF with 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 Strength intact post-op. Sensation decreased in BLE at baseline with possi ble worsening of sensation post-op. Wound clean. PLAN: Neuro: HOB raised, activity as tolerated at this time. Stopped Dex 03/25. Pain control with dilaudid and APAP. Baclofen 10mg qHS prn muscle spasms. Ativan prn anxiety. Trazodone 75mg q HS prn insomnia. Consult to physiatry with likely placement at [facility]. PT recs IPR. 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 Plan to repea t MRI in one month and evaluation for possible radiation needs at that time. HEENT/Derm: Menthol drops prn mouth soreness. Routine wound care to spinal incision - pleas e leave open to air. Okay to wash on 03/25. [place] will need to be removed at 2 weeks post-o p, on 04/05. CV: HD stable. Pulm: IS, cough/deep breath GI/diet: Regular diet. Cont home MV daily. +Anti-emetics. Bowel regimen prn. : Daniels in place. Will removed once patient is ambulatory. Musculoskeletal/skin: Routine decubitus ulcer prevention. Appreciate PT/OT recs. ID/Heme: Afebrile. Leukocytosis reduced to 12.59 - likely reactive to steroids. Will contin ue to monitor. DVT ppx: SCDs while in bed. ppx Lovenox. Dispo: Pending medical course, likely IPR at [facility]. Appreciate CM following. Sumeet Ross MD Neurological Surgery PGY1 acey Pimentel PA-C - 03/24/2016 11:18 AM PDTFormatting of this note might be different from the sangeeta l. Neurosurgery Progress Note Hospital Day:3 Author; Kacey Pimentel PA-C Attending Physician: Rajinder Luis MD Interval Hx: - HOB raised yesterday evening. Activity as tolerated at this time. Patient to work with PT /OT this AM. Once ambulating well, the daniels catheter will be removed. - Endorsing LLE numbness (baseline) throughout, and numbness to right foot. + improving wea kness to RLE. + incisional soreness. Denies new weakness, numbness, and paresthesias. Last Vitals: BP 107/56 | Pulse 45 | Temp 36.4 C (97.5 F) | RR 16 | Ht 1.6 m (5' 3") | W t 85.8 kg (189 lb 2.5 oz) | SpO2 96% | BMI 33.52 kg/(m^2) O2 Delivery Device: None (room air ) (03/24/16 0852) 24 Hour Vital Min/Max: Systolic (24hrs), Av mmHg, Min:98 mmHg, Max:123 mmHgDiastolic (24hrs), Av mmHg, Mi n:51 mmHg, Max:69 mmHgPulse Min: 45 Max: 60 Temp Min: 36.4 C (97.5 F) Max: 36.7 C (98.1 F) Resp Min: 16 Max: 16 SpO2 Min: 95 % Max: 98 % Intake/Output Summary (Last 24 hours) at 03/24/16 1118 Last data filed at 03/24/16 0954 Gross per 24 hour Intake 1325 ml Output 3300 ml Net -1975 ml Exam: Alert, oriented x3. Speech clear, fluent. Pupils equal. EOMI. Face symmetric. Sensation: LT sensation intact in all 4 extremities Motor: Applications Intern Bicep Tricep Delt R 5 5 5 5 L 5 5 5 5 HF KF KE DF PF EHL R 4 4- 4 5 5 5 L 5 5 5 5 5 5 Drains/Lines: Daniels intact Incision: thoracic: Clean, dry, flat, without surrounding erythema or drainage. Psych: Appropriate and cooperative Labs: CBC with diff last 72 hours (or 3 results) Recent Labs 03/21/16225103/23/16 0550 03/24/16 0615 WBC 10.32 22.63* 17.41* HB 13.2 13.7 11.8* HCT 40.4 42.1 36.8 PLT 312 322 290 Chemistries: Last 72 Hours (or 3 results): Recent Labs 03/21/16225103/23/1650 03/23/16 2302 03/24/16 0615 03/24/16 0954 NA 139 -- 142 -- -- 139 -- K 3.6 -- 4.0 -- -- 4.1 -- CL 105 -- 108 -- -- 107 -- BICARB 27 -- 25 -- -- 25 -- BUN 10 -- 10 -- -- 12 -- CR 0.84 -- 0.70 -- -- 0.55* -- GLU 90 < > 138* < > 141* 126* 110* CA 8.9 -- 9.1 -- -- 8.5* -- MG 2.0 -- 2.0 -- -- -- -- PO4 3.5 -- 3.4 -- -- 3.0 -- < > = values in this interval not displayed. Current Medications: acetaminophen (TYLENOL) tablet 325-650 mg, 325-650 mg, oral, Q6H PRN OR acetaminophen ( TYLENOL) tablet 325-650 mg, 325-650 mg, feeding tube, Q6H PRN OR acetaminophen (TYLENOL) suppository 325-650 mg, 325-650 mg, rectal, Q6H PRN baclofen (LIORESAL) tablet 10 mg, 10 mg, oral, HS PRN bisacodyl (DULCOLAX) suppository 10 mg, 10 mg, rectal, DAILY PRN [COMPLETED] dexamethasone (DECADRON) tablet 4 mg, 4 mg, oral, Q8H FOLLOWED BY dexametha sone (DECADRON) tablet 4 mg, 4 mg, oral, Q12H (Scheduled) FOLLOWED BY [START ON 6] dexamethasone (DECADRON) tablet 4 mg, 4 mg, oral, DAILY diphenhydrAMINE (BENADRYL) capsule 25 mg, 25 mg, oral, Q6H PRN enoxaparin (LOVENOX) injection 40 mg, 40 mg, subcutaneous, QPM HYDROmorphone (DILAUDID) injection 0.2-0.6 mg, 0.2-0.6 mg, intravenous, Q2H PRN HYDROmorphone (DILAUDID) tablet 2-6 mg, 2-6 mg, oral, Q3H PRN LORazepam (ATIVAN) tablet 0.5 mg, 0.5 mg, oral, Q6H PRN menthol (COUGH DROPS) lozenge 5 mg, 1 lozenge, oral, PRN multivitamin (THERA VITAMIN) 1 tablet, 1 tablet, oral, DAILY NaCl 0.9 % solution, 50 mL/hr, intravenous, CONTINUOUS [] ondansetron (ZOFRAN) injection 4 mg, 4 mg, intravenous, Q12H FOLLOWED BY onda nsetron (ZOFRAN) injection 4 mg, 4 mg, intravenous, Q12H PRN polyethylene glycol (MIRALAX) powder 34 g, 34 g, oral, TID PRN scopolamine (TRANSDERM-SCOPE) 1.5 mg (1 mg over 3 days) 1 patch, 1 patch, transdermal, ONCE senna-docusate (SENOKOT S) 8.6-50 mg 1 tablet, 1 tablet, oral, BID traZODone (DESYREL) dose 75 mg, 75 mg, oral, HS PRN Impression: 25YOF with 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 Strength intact post-op. Sensation decreased in BLE at baseline with possi ble worsening of sensation post-op. Wound clean. Plan: Neuro: HOB raised, activity as tolerated at this time. Currently on Dex 4mg q6h - last dose 03/25. Will clarify taper plan with staff. Pain control with dilaudid and APAP. Baclofen 10m g qHS prn muscle spasms. Ativan prn anxiety. Trazodone 75mg qHS prn insomnia. Consult placed for physiatry to evaluate patient for possible admission to [facility]. Oncology: Pathology in process. 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 Plan to repeat MRI in one month and evaluation for possible radiation needs at that time. HEENT/Derm: Menthol drops prn mouth soreness. Routine wound care to spinal incision - pleas e leave open to air. Okay to wash on 03/25. [place]a will need to be removed at 2 weeks post-o p, on 04/05. CV: HD stable. Pulm: IS, cough/deep breath GI/diet: Regular diet. Cont home MV daily. +Anti-emetics. Bowel regimen prn. : Daniels in place. Will removed once patient is ambulatory. Musculoskeletal/skin: Routine decubitus ulcer prevention. Will have PT/OT eval patient. ID/Heme: Afebrile. Leukocytosis reduced to 17.41 - likely reactive to steroids. Will contin ue to monitor. DVT ppx: SCDs while in bed. ppx Lovenox. Dispo: Pending medical course. Kacey Pimentel PA-C [facility] [address] [facility] [id number] daRaegan shaffer PA-C - 03/23/2016 7:58 AM PDT Neurosurgery Progress Note Hospital Day:2 Author; Raegan Doss PA-C Attending Physician: Rajinder Luis MD Interval Hx: -Pt reports she is unsure if the feeling in her R calf is diminished from pre-op. She canno t tell where her legs are in space (diminished proprioception). Reports controlled back pain . -Pt stated the 75mg of Trazodone worked well last night and has helped her sleep. She has a hard time sleeping while she is taking steroids. -Pt also reports some sores in her mouth after waking up from surgery - she wonders if she bit her cheeks while she was under GA Last Vitals: BP 99/65 | Pulse 56 | Temp 36.3 C (97.3 F) | RR 14 | Ht 1.6 m (5' 3") | Wt 85.8 kg (189 lb 2.5 oz) | SpO2 98% | BMI 33.52 kg/(m^2) O2 Delivery Device: None (room air) (03/23/16 7010) 24 Hour Vital Min/Max: Systolic (24hrs), Av mmHg, Min:99 mmHg, Max:130 mmHgDiastolic (24hrs), Av mmHg, Mi n:53 mmHg, Max:82 mmHgPulse Min: 44 Max: 75 Temp Min: 36.3 C (97.3 F) Max: 36.6 C (97.9 F) Resp Min: 8 Max: 17 SpO2 Min: 90 % Max: 100 % Intake/Output Summary (Last 24 hours) at 03/23/16 0758 Last data filed at 03/23/16 0600 Gross per 24 hour Intake 3010 ml Output 4350 ml Net -1340 ml Exam: Alert, oriented x3. Speech clear, fluent. Gaze conjugate. Face symmetric. Thoracic incision: dressing removed, incision is flat, dry, no fluctuance, wale in place . Sensation: LT sensation diminished in BLE, L>R. Intact in BUE. Motor: Full strength throughout 5/ - B, T, it security administrator, HF, KE, APF, ADF Daniels catheter in place. Labs: CBC with diff last 72 hours (or 3 results) Recent Labs 03/21/16225103/23/16 0550 WBC 10.32 22.63* HB 13.2 13.7 HCT 40.4 42.1 PLT 312 322 Chemistries: Last 72 Hours (or 3 results): Recent Labs 03/21/16225103/22/16 1921 03/22/16225103/23/16 0550 NA 139 -- -- -- 142 K 3.6 -- -- -- 4.0 CL 105 -- -- -- 108 BICARB 27 -- -- -- 25 BUN 10 -- -- -- 10 CR 0.84 -- -- -- 0.70 GLU 90 < > 120* 149* 138* CA 8.9 -- -- -- 9.1 MG 2.0 -- -- -- 2.0 PO4 3.5 -- -- -- 3.4 < > = values in this interval not displayed. Current Medications: acetaminophen (TYLENOL) tablet 325-650 mg, 325-650 mg, oral, Q6H PRN OR acetaminophen ( TYLENOL) tablet 325-650 mg, 325-650 mg, feeding tube, Q6H PRN OR acetaminophen (TYLENOL) suppository 325-650 mg, 325-650 mg, rectal, Q6H PRN baclofen (LIORESAL) tablet 10 mg, 10 mg, oral, HS PRN bisacodyl (DULCOLAX) suppository 10 mg, 10 mg, rectal, DAILY PRN ceFAZolin IV 2 grams in NS (RTU), 2 g, intravenous, Q8H dexamethasone (DECADRON) tablet 4 mg, 4 mg, oral, Q6H HYDROmorphone (DILAUDID) injection 0.2-0.6 mg, 0.2-0.6 mg, intravenous, Q2H PRN HYDROmorphone (DILAUDID) tablet 2-4 mg, 2-4 mg, oral, Q3H PRN LORazepam (ATIVAN) tablet 0.5 mg, 0.5 mg, oral, Q6H PRN menthol (COUGH DROPS) lozenge 5 mg, 1 lozenge, oral, PRN multivitamin (THERA VITAMIN) 1 tablet, 1 tablet, oral, DAILY NaCl 0.9 % solution, 50 mL/hr, intravenous, CONTINUOUS NaCl 0.9%-KCl 20 mEq/L IV infusion, , intravenous, CONTINUOUS [] ondansetron (ZOFRAN) injection 4 mg, 4 mg, intravenous, Q12H FOLLOWED BY onda nsetron (ZOFRAN) injection 4 mg, 4 mg, intravenous, Q12H PRN polyethylene glycol (MIRALAX) powder 34 g, 34 g, oral, TID PRN scopolamine (TRANSDERM-SCOPE) 1.5 mg (1 mg over 3 days) 1 patch, 1 patch, transdermal, ONCE senna-docusate (SENOKOT S) 8.6-50 mg 1 tablet, 1 tablet, oral, BID traZODone (DESYREL) dose 75 mg, 75 mg, oral, HS PRN Impression: 25YOF with 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 Strength intact post-op. Sensation decreased in BLE at baseline with possi ble worsening of sensation post-op. Wound clean. Plan: Neuro: Pt to remain flat in bed till noon, then okay to raise HOB to 30 degrees. Okay to si t bolt upright at 3pm, then okay to sit at EOB/stand up at 5pm today. Currently on Dex 4mg q 6h. Will clarify taper plan with staff. Pain control with dilaudid and APAP. Baclofen 10mg q HS prn muscle spasms. Ativan prn anxiety. Trazodone 75mg qHS prn insomnia. Consult placed fo r physiatry to evaluate patient for possible admission to [facility]. HEENT/Derm: Menthol drops prn mouth soreness. Routine wound care to spinal incision - pleas e leave open to air. Okay to wash on 03/25. Wale will need to be removed at 2 weeks post-o p, on 04/05. CV: HD stable. Pulm: IS, cough/deep breath GI/diet: Regular diet. Cont home MV daily. +Anti-emetics. Bowel regimen prn. : Daniels in place. Will removed once patient is ambulatory. Musculoskeletal/skin: Routine decubitus ulcer prevention. Will have PT/OT eval patient. ID/Heme: Afebrile. Leukocytosis to 22 - likely reactive to steroids. Will continue to monit or. DVT ppx: SCDs while in bed. Will start ppx Lovenox tonight. Dispo: Pending medical course. Raegan Doss PA-C [facility] [address] [id number] [place] [address] Yokasta Pizano MD - 03/22/2016 5:30 PM PDTPOSTOP CHECK Procedure Performed: 1. Right-sided T8 and T9 hemilaminectomy. 2. Resection of T8 level intradural tumor. 3. Resection of T9 level intradural intra-axial tumor. 4. Use of operating microscope. 5. Use of neuromonitoring. Awake, alert Oriented x 3 PERRL EOMI Face symmetric Tongue midline Strength 5/5BUE No drift RLE HF 4/5, otherwise 5/5 LLE 5/5 Incision clean/dry/intact - flat 24 hours -social work consult per patient's request Yokasta Randall PGY3 [id number] Cesar Najera MD - 03/22/20 16 3:05 AM PDTNeurosurgery Preoperative Note Planned procedure: T8, possible other levels, laminectomy for resection of tumor Date of procedure: 03/22 Booked? Yes Consented? Yes Marked? Yes NPO time: midnight Labs/Studies Hct: 40 Plt: 312 WBC: 10 Na: 139 K: 3.6 INR:1.0 Type and Screen obtained? Yes If over 50, EKG obtained this admission (Yes/No/NA)? n/a If over 50, CXR obtained this admission (Yes/No/NA)? n/a Medications If on Lovenox, stopped the day prior to surgery (Yes/No/NA)? n/a On ASA or other antiplatelet agent? No Cesar Odonnell MD Neurosurgery PGY2 documented in this encounte r Plan of Treatment +--------+ + + + [...] | | | | | | [place] [facility] [place] | | | | | | [address] | | | | | | [phone] | | | | | | | | +--------+ + + + + | 12/10/ | Office | Neurological Surgery | April Beck MD | | | 2019 | Visit | | [address] | | | | | | [address] | | | | | | [facility] [place] | | | | | | [address] | | | | | | [phone] | | | | | | | | +--------+ + + + + + +---------+--------+ + + | Name | Type | Priori | Associated Diagnoses | Date/Time | | | | ty | | | + +---------+--------+ + + | OR FLUOROSCOPY > 1 | Imaging | Routin | | 03/22/2016 12:00 PM | | HOUR | | e | | PDT | + +---------+--------+ + + | X-RAY SPINE THORACIC | Imaging | Routin | | 03/22/2016 12:00 PM | | 1 VIEW | | e | | PDT | + +---------+--------+ + + + +---------+--------+ [...] starting | | | | | | 03/22/2016 until | | | | | | 03/22/2016 | + +---------+--------+ + + | X-RAY SPINE THORACIC | Imaging | Routin | | One Time for 1 | | 1 VIEW | | e | | Occurrences starting | | | | | | 03/22/2016 until | | | | | | 03/22/2016 | + +---------+--------+ + + documented as of this encounter Procedures + +--------+ + + + | Procedure Name | Priori | Date/Time | Associated Diagnosis | Comments | | | ty | | | | + +--------+ + + + | CBC (HEMOGRAM) ONLY | Routin | 03/27/2016 | | Results for this | | | e | 6:56 AM | | procedure are in the | | | | PDT | | results section. | + +--------+ + + + | RENAL FUNCTION SET | Routin | 03/27/2016 | | Results for this | | (NA,K,CL,CO2,BUN,CRE | e | 6:56 AM | | procedure are in the | | AT,GLUC,CA,PHOS,ALB | | PDT | | results section. | | ) | | | | | + +--------+ + + + | CBC ONLY | Routin | 03/27/2016 | | Results for this | | | e | 6:56 AM | | procedure are in the | | | | PDT | | results section. | + +--------+ + + + | CBC (HEMOGRAM) ONLY | Routin | 03/26/2016 | | Results for this | | | e | 7:14 AM | | procedure are in the | | | | PDT | | results section. | + +--------+ + + + | RENAL FUNCTION SET | Routin | 03/26/2016 | | Results for this | | (NA,K,CL,CO2,BUN,CRE | e | 7:14 AM | | procedure are in the | | AT,GLUC,CA,PHOS,ALB | | PDT | | results section. | | ) | | | | | + +--------+ + + + | CBC ONLY | Routin | 03/26/2016 | | Results for this | | | e | 7:14 AM | | procedure are in the | | | | PDT | | results section. | + +--------+ + + + | CAPILLARY BLOOD | Routin | 03/25/2016 | Thoracic spine | Results for this | | GLUCOSE (NO CHG), | e | 9:51 AM | tumor | procedure are in the | | POC | | PDT | | results section. | + +--------+ + + + | CBC (HEMOGRAM) ONLY | Routin | 03/25/2016 | | Results for this | | | e | 6:51 AM | | procedure are in the | | | | PDT | | results section. | + +--------+ + + + | RENAL FUNCTION SET | Routin | 03/25/2016 | | Results for this | | (NA,K,CL,CO2,BUN,CRE | e | 6:51 AM | | procedure are in the | | AT,GLUC,CA,PHOS,ALB | | PDT | | results section. | | ) | | | | | + +--------+ + + + | CBC ONLY | Routin | 03/25/2016 | | Results for this | | | e | 6:51 AM | | procedure are in the | | | | PDT | | results section. | + +--------+ + + + | CAPILLARY BLOOD | Routin | 03/24/2016 | Thoracic spine | Results for this | | GLUCOSE (NO CHG), | e | 11:31 PM | tumor | procedure are in the | | POC | | PDT | | results section. | + +--------+ + + + | CAPILLARY BLOOD | Routin | 03/24/2016 | Thoracic spine | Results for this | | GLUCOSE (NO CHG), | e | 8:39 PM | tumor | procedure are in the | | POC | | PDT | | results section. | + +--------+ + + + | CAPILLARY BLOOD | Routin | 03/24/2016 | Thoracic spine | Results for this | | GLUCOSE (NO CHG), | e | 2:53 PM | tumor | procedure are in the | | POC | | PDT | | results section. | + +--------+ + + + | CAPILLARY BLOOD | Routin | 03/24/2016 | Thoracic spine | Results for this | | GLUCOSE (NO CHG), | e | 9:54 AM | tumor | procedure are in the | | POC | | PDT | | results section. | + +--------+ + + + | OPERATION RECORD | | 03/24/2016 | | Results for this | | | | 9:53 AM | | procedure are in the | | | | PDT | | results section. | + +--------+ + + + | CBC (HEMOGRAM) ONLY | Routin | 03/24/2016 | | Results for this | | | e | 6:15 AM | | procedure are in the | | | | PDT | | results section. | + +--------+ + + + | RENAL FUNCTION SET | Routin | 03/24/2016 | | Results for this | | (NA,K,CL,CO2,BUN,CRE | e | 6:15 AM | | procedure are in the | | AT,GLUC,CA,PHOS,ALB | | PDT | | results section. | | ) | | | | | + +--------+ + + + | CBC ONLY | Routin | 03/24/2016 | | Results for this | | | e | 6:15 AM | | procedure are in the | | | | PDT | | results section. | + +--------+ + + + | CAPILLARY BLOOD | Routin | 03/23/2016 | Thoracic spine | Results for this | | GLUCOSE (NO CHG), | e | 11:02 PM | tumor | procedure are in the | | POC | | PDT | | results section. | + +--------+ + + + | CAPILLARY BLOOD | Routin | 03/23/2016 | Thoracic spine | Results for this | | GLUCOSE (NO CHG), | e | 7:32 PM | tumor | procedure are in the | | POC | | PDT | | results section. | + +--------+ + + + | CAPILLARY BLOOD | Routin | 03/23/2016 | Thoracic spine | Results for this | | GLUCOSE (NO CHG), | e | 3:55 PM | tumor | procedure are in the | | POC | | PDT | | results section. | + +--------+ + + + | CAPILLARY BLOOD | Routin | 03/23/2016 | Thoracic spine | Results for this | | GLUCOSE (NO CHG), | e | 10:28 AM | tumor | procedure are in the | | POC | | PDT | | results section. | + +--------+ + + + | CBC (HEMOGRAM) ONLY | Routin | 03/23/2016 | | Results for this | | | e | 5:50 AM | | procedure are in the | | | | PDT | | results section. | + +--------+ + + + | INR | Routin | 03/23/2016 | | Results for this | | | e | 5:50 AM | | procedure are in the | | | | PDT | | results section. | + +--------+ + + + | RENAL FUNCTION SET | Routin | 03/23/2016 | | Results for this | | (NA,K,CL,CO2,BUN,CRE | e | 5:50 AM | | procedure are in the | | AT,GLUC,CA,PHOS,ALB | | PDT | | results section. | | ) | | | | | + +--------+ + + + | CBC ONLY | Routin | 03/23/2016 | | Results for this | | | e | 5:50 AM | | procedure are in the | | | | PDT | | results section. | + +--------+ + + + | FIBRINOGEN | Routin | 03/23/2016 | | Results for this | | | e | 5:50 AM | | procedure are in the | | | | PDT | | results section. | + +--------+ + + + | APTT (ACT. PART. | Routin | 03/23/2016 | | Results for this | | THROMBO TIME) | e | 5:50 AM | | procedure are in the | | | | PDT | | results section. | + +--------+ + + + | MAGNESIUM, PLASMA | Routin | 03/23/2016 | | Results for this | | | e | 5:50 AM | | procedure are in the | | | | PDT | | results section. | + +--------+ + + + | CAPILLARY BLOOD | Routin | 03/22/2016 | Thoracic spine | Results for this | | GLUCOSE (NO CHG), | e | 10:52 PM | tumor | procedure are in the | | POC | | PDT | | results section. | + +--------+ + + + | PROCEDURE NOTE | Routin | 03/22/2016 | | Results for this | | | e | 7:43 PM | | procedure are in the | | | | PDT | | results section. | + +--------+ + + + | CAPILLARY BLOOD | Routin | 03/22/2016 | Thoracic spine | Results for this | | GLUCOSE (NO CHG), | e | 7:21 PM | tumor | procedure are in the | | POC | | PDT | | results section. | + +--------+ + + + | CAPILLARY BLOOD | Routin | 03/22/2016 | Thoracic spine | Results for this | | GLUCOSE (NO CHG), | e | 1:25 PM | tumor | procedure are in the | | POC | | PDT | | results section. | + +--------+ + + + | PROCEDURE NOTE | Routin | 03/22/2016 | | Results for this | | | e | 12:07 PM | | procedure are in the | | | | PDT | | results section. | + +--------+ + + + | HCG URINE, POC | Urgent | 03/22/2016 | Spinal cord tumor | Results for this | | | | 7:49 AM | | procedure are in the | | | | PDT | | results section. 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 | + +--------+ + + + | CT SPINE THORACIC WO | Urgent | 03/22/2016 | | Results for this | | CONTRAST | | 3:27 AM | | procedure are in the | | | | PDT | | results section. | + +--------+ + + + | CAPILLARY BLOOD | Routin | 03/22/2016 | Spinal cord tumor | Results for this | | GLUCOSE (NO CHG), | e | 1:36 AM | | procedure are in the | | POC | | PDT | | results section. | + +--------+ + + + | CARDIOLOGY | | 03/22/2016 | | Results for this | | | | 12:00 AM | | procedure are in the | | | | PDT | | results section. | + +--------+ + + + | INTRAOPERATIVE NEURO | Routin | 03/22/2016 | | Results for this | | MONITORING | e | | | procedure are in the | | | | | | results section. | + +--------+ + + + | SURGICAL PATHOLOGY | Routin | 03/22/2016 | | Results for this | | | e | | | procedure are in the | | | | | | results section. | + +--------+ + + + | URINE CULTURE WORKUP | Routin | 03/21/2016 | | Results for this | | | e | 11:44 PM | | procedure are in the | | | | PDT | | results section. | + +--------+ + + + | CULTURE, URINE [facility] | Routin | 03/21/2016 | | Results for this | | | e | 11:44 PM | | procedure are in the | | | | PDT | | results section. | + +--------+ + + + | URINE, MICROSCOPIC | Routin | 03/21/2016 | | Results for this | | EXAM | e | 11:44 PM | | procedure are in the | | | | PDT | | results section. | + +--------+ + + + | URINE SCREEN FOR | Routin | 03/21/2016 | | Results for this | | CULTURE | e | 11:44 PM | | procedure are in the | | | | PDT | | results section. | + +--------+ + + + | CBC (HEMOGRAM) ONLY | Routin | 03/21/2016 | | Results for this | | | e | 10:52 PM | | procedure are in the | | | | PDT | | results section. | + +--------+ + + + | INR | Routin | 03/21/2016 | | Results for this | | | e | 10:52 PM | | procedure are in the | | | | PDT | | results section. | + +--------+ + + + | RENAL FUNCTION SET | Routin | 03/21/2016 | | Results for this | | (NA,K,CL,CO2,BUN,CRE | e | 10:52 PM | | procedure are in the | | AT,GLUC,CA,PHOS,ALB | | PDT | | results section. | | ) | | | | | + +--------+ + + + | CBC ONLY | Routin | 03/21/2016 | | Results for this | | | e | 10:52 PM | | procedure are in the | | | | PDT | | results section. | + +--------+ + + + | FIBRINOGEN | Routin | 03/21/2016 | | Results for this | | | e | 10:52 PM | | procedure are in the | | | | PDT | | results section. | + +--------+ + + + | APTT (ACT. PART. | Routin | 03/21/2016 | | Results for this | | THROMBO TIME) | e | 10:52 PM | | procedure are in the | | | | PDT | | results section. | + +--------+ + + + | ANTIBODY SCREEN | Routin | 03/21/2016 | | Results for this | | | e | 10:52 PM | | procedure are in the | | | | PDT | | results section. | + +--------+ + + + | TYPE AND SCREEN | Routin | 03/21/2016 | | Results for this | | | e | 10:52 PM | | procedure are in the | | | | PDT | | results section. | + +--------+ + + + | ABO & RH TYPE | Routin | 03/21/2016 | | Results for this | | | e | 10:52 PM | | procedure are in the | | | | PDT | | results section. | + +--------+ + + + | MAGNESIUM, PLASMA | Routin | 03/21/2016 | | Results for this | | | e | 10:52 PM | | procedure are in the | | | | PDT | | results section. | + +--------+ + + + | CAPILLARY BLOOD | Routin | 03/21/2016 | Spinal cord tumor | Results for this | | GLUCOSE (NO CHG), | e | 10:48 PM | | procedure are in the | | POC | | PDT | | results section. | + +--------+ + + + | PRODUCT - RED CELLS | Routin | 03/21/2016 | | Results for this | | LEUKOREDUCED | e | 8:37 PM | | procedure are in the | | | | PDT | | results section. | + +--------+ + + + | PRODUCT - RED CELLS | Routin | 03/21/2016 | | Results for this | | LEUKOREDUCED | e | 8:37 PM | | procedure are in the | | | | PDT | | results section. | + +--------+ + + + | ED INFORMATION | Routin | 03/21/2016 | | Results for this | | EXCHANGE | e | 6:36 PM | | procedure are in the [...] + +---------+ + + CBC (HEMOGRAM) ONLY (03/27/2016 6:56 AM PDT) + + + + + + | Component | Value | Ref Range | Performed | Pathologist | | | | | At | Signature | + + + + + + | WHITE CELL | 11.41 (H) | 4.40 - 11.00 | [facility] | | | COUNT | | K/cu mm | LABORATORY | | | | | | SERVICES, | | | | | | CORE | | + + + + + + | RED CELL | 4.52 | 4.00 - 5.20 | [facility] | [...] + + + + | HEMATOCRIT | 37.4 | 36.0 - 46.0 % | [facility] | | | | | | LABORATORY | | | | | | SERVICES, | | | | | | CORE | | + + + + + + | MCV | 82.7 | 80.0 - 96.0 fL | [facility] | | | | | | LABORATORY | | | | | | SERVICES, | | | | | | CORE | | + + + + + + | MCHC | 32.4 | 33.0 - 35.5 | [facility] | | | | | g/dL | LABORATORY | | | | | | SERVICES, | | | | | | CORE | | + + + + + + | RDW SD | 42.5 | 35.1 - 46.3 fL | [facility] | | | | | | LABORATORY | | | | | | SERVICES, | | | | | | CORE | | + + + + + + | PLATELET | 290 [...] | + + + + + | [facility] | [address] | [place] [address] | | | SERVICES, CORE | [address] | | | + + + + + RENAL FUNCTION SET (NA,K,CL,CO2,BUN,CREAT,GLUC,CA,PHOS,ALB ) (03/27/2016 6:56 AM PDT) + +---------+ + + + | Component | Value | Ref Range | Performed | Pathologist | | | | | At | Signature | + +---------+ + + + | GLUCOSE, | 83 | 60 - 99 mg/dL | [facility] | | | PLASMA | | | LABORATORY | | | (LAB) | | | SERVICES, | | | | | | CORE | | + +---------+ + + + | BUN, PLASMA | 15 | 6 - 20 mg/dL | [facility] | | | (LAB) | | | LABORATORY | | | | | | SERVICES, | | | | | | CORE | | + +---------+ + + + | CREATININE | 0.78 | 0.60 - 1.10 | [facility] | | | PLASMA | | mg/dL | LABORATORY | | | (LAB) | | | SERVICES, | | | | | | CORE | | + +---------+ + + + | EGFR | >60 | >60 mL/min | [facility] | | | - | | | LABORATORY | | | [facility] | | | SERVICES, | | | [...] +---------+ + + + | PHOSPHORUS, | 3.2 | 2.4 - 4.7 mg/dL | [facility] [...] [facility] | [address] | [place] [address] | | | SERVICES, CORE | [address] | | | + + + + + CBC (HEMOGRAM) ONLY (03/26/2016 7:14 AM PDT) + + + + + + | Component | Value | Ref Range | Performed | Pathologist | | | | | At | Signature | + + + + + + | WHITE CELL | 12.86 (H) | 4.40 - 11.00 | [facility] | | | COUNT | | K/cu mm | LABORATORY | | | | | | SERVICES, | | | | | | CORE | | + + + + + + | RED CELL | 4.63 | 4.00 - 5.20 | [facility] | [...] + + + + | HEMATOCRIT | 38.6 | 36.0 - 46.0 % | [facility] | | | | | | LABORATORY | | | | | | SERVICES, | | | | | | CORE | | + + + + + + | MCV | 83.4 | 80.0 - 96.0 fL | [facility] [...] + + + | RDW SD | 43.0 | 35.1 - 46.3 fL | [facility] | | | | | | LABORATORY | | | | | | SERVICES, | | | | | | CORE | | + + + + + + | PLATELET | 265 | 150 - 400 K/cu | [facility] | | | COUNT | | mm | LABORATORY | | | | | | SERVICES, | | | | | | CORE | | + + + + + + | MPV | 10.6 | 9.7 - 12.3 fL | [facility] [...] LABORATORY | [address] | [place] [address] | | | SERVICES, CORE | [address] | | | + + + + + RENAL FUNCTION SET (NA,K,CL,CO2,BUN,CREAT,GLUC,CA,PHOS,ALB ) (03/26/2016 7:14 AM PDT) + +---------+ + + + | Component | Value | Ref Range | Performed | Pathologist | | | | | At | Signature | + +---------+ + + + | GLUCOSE, | 86 | 60 - 99 mg/dL | [facility] | | | PLASMA | | | LABORATORY | | | (LAB) | | | SERVICES, | | | | | | CORE | | + +---------+ + + + | BUN, PLASMA | 15 | 6 - 20 mg/dL | [facility] [...] | | | LABORATORY | | | [facility] | | | SERVICES, | | | [...] +---------+ + + + | CALCIUM(ALB | 9.8 [...] +---------+ + + + | PHOSPHORUS, | 2.8 [...] | + + + + + | [facility] | [address] | [place] [address] | | | HORACIO, NINO | [address] | | | + + + + + CAPILLARY BLOOD GLUCOSE (NO CHG), POC (03/25/2016 9:51 AM PDT) + +---------+ + + + | Component | Value | Ref Range | Performed | Pathologist | | | | | At | Signature | + +---------+ + + + | BLOOD | 105 (H) | 60 - 99 mg/dL | [...] [facility] | [address] | [place], [place] | | | [facility] | [facility] | [address] | | | TESTS | | | | + + + + + CBC (HEMOGRAM) ONLY (03/25/2016 6:51 AM PDT) + + + + + + | Component | Value | Ref Range | Performed | Pathologist | | | | | At | Signature | + + + + + + | WHITE CELL | 12.59 (H) | 4.40 - 11.00 | [facility] | | | COUNT | | K/cu mm | LABORATORY | | | | | | SERVICES, | | | | | | CORE | | + + + + + + | RED CELL | 4.50 | 4.00 - 5.20 | [facility] | [...] + + + + | HEMATOCRIT | 37.2 | 36.0 - 46.0 % | [facility] | | | | | | LABORATORY | | | | | | SERVICES, | | | | | | CORE | | + + + + + + | MCV | 82.7 | 80.0 - 96.0 fL | [facility] | | | | | | LABORATORY | | | | | | SERVICES, | | | | | | CORE | | + + + + + + | MCHC | 32.0 | 33.0 - 35.5 | [facility] | [...] + + + + | PLATELET | 267 | 150 - 400 K/cu | [facility] [...] | + + + + + | [facility] | [address] | [place] [address] | | | SERVICES, CORE | [address] | | | + + + + + RENAL FUNCTION SET (NA,K,CL,CO2,BUN,CREAT,GLUC,CA,PHOS,ALB ) (03/25/2016 6:51 AM PDT) + + + + + + | Component | Value | Ref Range | Performed | Pathologist | | | | | At | Signature | + + + + + + | GLUCOSE, | 108 [...] + + + + | CREATININE | 0.56 (L) | 0.60 - 1.10 | [facility] | | | PLASMA | | mg/dL | LABORATORY | | | (LAB) | | | SERVICES, | | | | | | CORE | | + + + + + + | EGFR | >60 | >60 mL/min | [facility] | | | - | | | LABORATORY | | | [facility] | | | SERVICES, | | | [...] + + + + | POTASSIUM, | 3.9 | 3.4 - 5.0 | [facility] | [...] + + + + | CALCIUM, | 8.7 | 8.6 - 10.2 | [facility] | | | PLASMA | | mg/dL | LABORATORY | | | (LAB) | | | SERVICES, | | | | | | CORE | | + + + + + + | CALCIUM(ALB | 9.4 | 8.6 - 10.2 | [facility] | | | CORRECTED) | | mg/dL | LABORATORY | | | | | | SERVICES, | | | | | | CORE | | + + + + + + | ALBUMIN, | 3.1 (L) | 3.5 - 4.7 g/dL | [facility] | | | PLASMA | | | LABORATORY | | | (LAB) | | | SERVICES, | | | | | | CORE | | + + + + + + | PHOSPHORUS, | 2.9 [...] | + + + + + | [facility] | [address] | [place] [address] | | | SERVICES, CORE | [address] | | | + + + + + CAPILLARY BLOOD GLUCOSE (NO CHG), POC (03/24/2016 11:31 PM PDT) + +---------+ + + + | Component | Value | Ref Range | Performed | Pathologist | | | | | At | Signature | + +---------+ + + + | BLOOD | 191 (H) | 60 - 99 mg/dL | [...] [facility] | [address] | [place], [place] | | | [facility] | [address] | [address] | | | TESTS | | | | + + + + + CAPILLARY BLOOD GLUCOSE (NO CHG), POC (03/24/2016 8:39 PM PDT) + +---------+ + + + [...] [facility] | [address] | [place], [place] | | | [facility] | [address] | [address] | | | TESTS | | | | + + + + + CAPILLARY BLOOD GLUCOSE (NO CHG), POC (03/24/2016 2:53 PM PDT) + +---------+ + + + [...] [facility] | [address] | [place], [place] | | | [facility] | [address] | [address] | | | TESTS | | | | + + + + + CAPILLARY BLOOD GLUCOSE (NO CHG), POC (03/24/2016 9:54 AM PDT) + +---------+ + + + | Component | Value | Ref Range | Performed | Pathologist | | | | | At | Signature | + +---------+ + + + | BLOOD | 110 (H) | 60 - 99 mg/dL | [...] [facility] | [address] | [place], [place] | | | [facility] | [address] | [address] | | | TESTS | | | | + + + + + OPERATION RECORD (03/24/2016 9:53 AM PDT) + + | Transcriptions | + + | Rajinder Luis MD - 03/22/2016 4:04 PM PDT Date of Service: 03/22/2016 Attending | | Surgeon: Rajinder Luis MD Prison Officer(s): Thomas Gorman, | | MNacho., Ph.D. Preoperative Diagnoses: 1. 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 Existing right lower extremity weakness.3. New left lower | | extremity weakness.Postoperative Diagnoses: 1. Residual glioneuronal thoracic cord | | tumor.2. Existing right lower extremity weakness.3. New left lower extremity | | weakness.Procedure Performed: 1. Right-sided T8 and T9 hemilaminectomy.2. Resection of | | T8 level intradural tumor.3. Resection of T9 level intradural intra-axial tumor.4. Use | | of operating microscope.5. Use of neuromonitoring.Estimated Blood Loss: 50 cc.Fluids: | | 2200 cc.Specimens: Upper tumor and lower tumor for permanent.Complications: | | None.Drains: None.Disposition: PACU, blackburn.Findings: Tumor fluffy and white in | | appearance, friable, removed using suction and tumor forceps, until no further tumor | | identified, primary dural closure reinforced with Surgicel and DuraSeal Xact, wale to | | skin, no changes in signal.Indication For Procedure: Ms. Randolph is a 25-year-old | | lady with a known history of a grade 1 intramedullary thoracic glioneuronal tumor. She | | previously underwent T6-7 complete laminectomies in May 2015 and this was followed | | by right T10 and T11 based on the CT hemilaminectomies in September 2015. She originally | | presented with right lower extremity weakness in May and underwent resection of | | these which resulted in her right lower extremity weakness slowly improving after | | surgery. She re-presented in September 2015, this time with bilateral lower extremity | | weakness and urinary incontinence leading to her repeat resection. She presents for the | | current admission with increasing left lower extremity weakness that began on the | | morning of 03/21/2016 which gradually improved. She was, therefore, admitted and | | indicated for repeat resection. A full PARQ discussion was had with her and her family, | | and they instructed us to proceed. No guarantees or warrantees were offered.Procedure | | In Detail: The patient was correctly identified in the holding area by name, medical | | record number, and date of . The patient was brought to the operating room. She | | was transferred safely to the patient table. She underwent smooth induction of general | | anesthesia and endotracheal intubation by the anesthesiology team. Eyes were taped to | | prevent corneal abrasion. Daniels catheter was placed by the nursing team, and | | neuromonitoring leads were placed by the neuromonitoring team. The patient was then | | placed in the prone position on a Hair table. All pressure points were carefully | | padded. The previous incision was identified. Lateral fluoroscopy and AP fluoroscopy | | were used to identify the T8 vertebra and spinous process identifying this as below the | | region below the prior T6-7 laminectomies. An incision incorporating the previous | | incisions was centered over this area. The area was then prepped and draped in the | | usual sterile fashion, and a team pause performed prior to procedure. Marcaine and | | epinephrine were infused under the skin. The skin was opened sharply in the midline | | with a #10 blade, and monopolar Bovie cautery used through subcutaneous tissues until | | the dorsal fascia was identified. We identified the spinous process of T8 and T9. We | | performed a right-sided subperiosteal lamina takedown on the these vertebrae to expose | | the spinous process and lamina of T8 and T9. We then used a matchstick drill bit to | | perform right-sided hemilaminectomies of the entirety of T8 and T9 exposing the | | right-sided dura. Kerrison punches were used to widen the hemilaminectomy until we had | | good exposure. Soft tissues were taken down, and bipolar cautery was used to achieve | | hemostasis at the gutters using the exposed veins. We noticed some scar tissue | | inferiorly which would be consistent with her prior resection in September, and this was | | taken down to expose the dura. Floseal was used to achieve hemostasis. We then | | performed the remainder of the procedure under the operating microscope. We noted that | | the superior/upper focus of tumor was located at the superior aspect of the T8 lamina. | | We then centered our dural opening at this level. We created a longitudinal incision | | using a #11 blade and extended this using curved and straight micro scissors. We used | | 4-0 Bralon sutures as tack-ups on either side of the dura. We used Rhoton micro | | dissectors to open the cord and enter this. We used micro forceps to divide the soft | | tissues. When we had entered the cord, we identified fluffy white appearing tumor. | | Portions of this were taken with tumor forceps for permanent immunohistochemistry | | labeled as upper thoracic tumor. We used suction to carefully debride the tumor and | | take this out. It came relatively easily as it was friable; however, the margins of the | | cord were indistinct. We passed superiorly until we were able to identify CSF egress | | superiorly to the tumor, and we identified the wall of the tumor. Any | | tumorous-appearing material was taken down using tumor forceps and micro graspers. We | | then progressed inferiorly evacuating tumor until we were able to identify more | | normal-appearing neural tissue. Throughout this procedure, we continued to perform | | neuromonitoring runs and noted that there was no change in signals. We then inspected | | more medially and were able to identify further tumor and this was also carefully | | removed using suction and tumor-grasping forceps. We continued until there was no | | further tumor identifiable. We carefully irrigated the region, inspected our resection | | cavity. We noted that there was an egress of clear CSF both superiorly and inferiorly, | | and we believe we identified the central canal. We confirmed that hemostasis had been | | achieved. We also noted that the cord appeared significantly debulked. We then turned | | our attention to the lower aspect of the T9 hemilaminectomy which is where the inferior | | focus of tumor was. We created a separate dural incision with an 11 blade, extending | | this dural incision with curved and straight micro scissors. We opened the arachnoid | | and used 4-0 Bralon sutures as dural tack-ups. We then used micro dissectors to again | | enter the cord and used micro forceps to retract the soft tissues. We identified | | further tumor and this also appeared white and friable. This was also evacuated with | | tumor forceps and sent off to the back table as lower thoracic tumor. The remainder of | | the tumor was removed using suction and tumor forceps to deliver this tumor. Inferiorly | | we noted continuity with a cyst we had identified on the MRI suggesting that we had | | reached the inferior aspect of the tumor. We continued to dissect superiorly until we | | identified more normal-appearing neural tissue and no further tumor. We inspected | | laterally and medially within the resection cavity and identified no further tumor. We | | again performed repeat neuromonitoring runs and there was no change in neuromonitoring | | signals. Both surgical resection sites were thoroughly irrigated and hemostasis was | | confirmed. At the superior incision, the dural tack-up sutures were removed and the | | dura was closed primarily using a running 5-0 Garfield-Thaddeus suture in a locking fashion. At | | the lowest incision, the dural tacking sutures were crossed. The dura was also closed | | in primary fashion using a running 5-0 Garfield-Thaddeus suture in locking fashion. These dural | | tack-up sutures were removed during the closure, and we noted that the closure was | | watertight. We then sized a piece of Surgicel and placed this over the exposed dura and | | placed DuraSeal Xact over the dural closure to reinforce this. We then turned our | | attention to closure. The muscle and fascia were reapproximated using interrupted 0 | | Vicryl sutures. Oliver's fascia was reapproximated using interrupted 2-0 Vicryl | | sutures, and the dermis was closed with interrupted 3-0 Vicryl sutures. The skin was | | reapproximated using wale, the incision washed and dried and a dressing was applied. | | All sponge, needles, and instrument counts correct at the end of the procedure.Rajinder Enamorado | | Michelle Luis MD was scrubbed and actively participated performing the critical portions of | | the operation.Rajinder Luis MDKG/MODLDD: 03/22/2016 12:20:45DT: 03/22/2016 | | 16:04:07Job #: [id number] | + + CBC (HEMOGRAM) ONLY (03/24/2016 6:15 AM PDT) + + + + + + | Component | Value | Ref Range | Performed | Pathologist | | | | | At | Signature | + + + + + + | WHITE CELL | 17.41 (H) | 4.40 - 11.00 | [facility] [...] + + + + | HEMATOCRIT | 36.8 | 36.0 - 46.0 % | [facility] | | | | | | LABORATORY | | | | | | SERVICES, | | | | | | CORE | | + + + + + + | MCV | 82.1 | 80.0 - 96.0 fL | [facility] [...] + + + | RDW SD | 42.7 | 35.1 - 46.3 fL | [facility] | | | | | | LABORATORY | | | | | | SERVICES, | | | | | | CORE | | + + + + + + | PLATELET | 290 [...] LABORATORY | [address] | [place] [address] | | | SERVICES, CORE | [address] | | | + + + + + RENAL FUNCTION SET (NA,K,CL,CO2,BUN,CREAT,GLUC,CA,PHOS,ALB ) (03/24/2016 6:15 AM PDT) + + + + + + | Component | Value | Ref Range | Performed | Pathologist | | | | | At | Signature | + + + + + + | GLUCOSE, | 126 (H) | 60 - 99 mg/dL | [...] | | | LABORATORY | | | [facility] | | | SERVICES, | | | [...] + + + + | POTASSIUM, | 4.1 | 3.4 - 5.0 | [facility] | | | PLASMA | | mmol/L | LABORATORY | | | (LAB) | | | SERVICES, | | | | | | CORE | | + + + + + + | CHLORIDE, | 107 [...] + + + + | CALCIUM, | 8.5 (L) | 8.6 - 10.2 | [facility] | | | PLASMA | | mg/dL | LABORATORY | | | (LAB) | | | SERVICES, | | | | | | CORE | | + + + + + + | CALCIUM(ALB | 9.3 | 8.6 - 10.2 | [facility] | | | CORRECTED) | | mg/dL | LABORATORY | | | | | | SERVICES, | | | | | | CORE | | + + + + + + | ALBUMIN, | 3.0 (L) | 3.5 - 4.7 g/dL | [facility] | | | PLASMA | | | LABORATORY | | | (LAB) | | | SERVICES, | | | | | | CORE | | + + + + + + | PHOSPHORUS, | 3.0 | 2.4 - 4.7 mg/dL | [facility] [...] + + + + | ANION | 9 [...] Information: <60 mL/min/1.73 sq m | HORACIO, NINO | | Chronic Kidney Disease <15 mL/min/1.73 [...] | + + + + + | [facility] | [address] | [place] [address] | | | NINO LEONARD | [address] | | | + + + + + CAPILLARY BLOOD GLUCOSE (NO CHG), POC (03/23/2016 11:02 PM PDT) + +---------+ + + + | Component | Value | Ref Range | Performed | Pathologist | | | | | At | Signature | + +---------+ + + + | BLOOD | 141 (H) | 60 - 99 mg/dL | [...] [facility] | [address] | [place], [place] | | | [facility] | [address] | [address] | | | TESTS | | | | + + + + + CAPILLARY BLOOD GLUCOSE (NO CHG), POC (03/23/2016 7:32 PM PDT) + +---------+ + + + | Component | Value | Ref Range | Performed | Pathologist | | | | | At | Signature | + +---------+ + + + | BLOOD | 122 (H) | 60 - 99 mg/dL | [facility] - | | | GLUCOSE, | | [...] [facility] | [address] | [place], [place] | | | [facility] | [address] | [address] | | | TESTS | | | | + + + + + CAPILLARY BLOOD GLUCOSE (NO CHG), POC (03/23/2016 3:55 PM PDT) + +---------+ + + + [...] [facility] | [address] | [place], [place] | | | [facility] | [address] | [address] | | | TESTS | | | | + + + + + CAPILLARY BLOOD GLUCOSE (NO CHG), POC (03/23/2016 10:28 AM PDT) + +---------+ + + + | Component | Value | Ref Range | Performed | Pathologist | | | | | At | Signature | + +---------+ + + + | BLOOD | 117 (H) | 60 - 99 mg/dL | [facility] - | | | GLUCOSE, | | [...] [facility] | [address] | [place], [place] | | | [facility] | [address] | [address] | | | TESTS | | | | + + + + + CBC (HEMOGRAM) ONLY (03/23/2016 5:50 AM PDT) + + + + + + | Component | Value | Ref Range | Performed | Pathologist | | | | | At | Signature | + + + + + + | WHITE CELL | 22.63 (H) | 4.40 - 11.00 | [facility] | | | COUNT | | K/cu mm | LABORATORY | | | | | | SERVICES, | | | | | | CORE | | + + + + + + | RED CELL | 5.14 | 4.00 - 5.20 | [facility] | | | COUNT | | M/cu mm | LABORATORY | | | | | | SERVICES, | | | | | | CORE | | + + + + + + | HEMOGLOBIN | 13.7 | 12.0 - 16.0 | [facility] | | | | | g/dL | LABORATORY | | | | | | SERVICES, | | | | | | CORE | | + + + + + + | HEMATOCRIT | 42.1 | 36.0 - 46.0 % | [facility] | | | | | | LABORATORY | | | | | | SERVICES, | | | | | | CORE | | + + + + + + | MCV | 81.9 | 80.0 - 96.0 fL | [facility] [...] + + + | RDW SD | 41.8 | 35.1 - 46.3 fL | [facility] | | | | | | LABORATORY | | | | | | SERVICES, | | | | | | CORE | | + + + + + + | PLATELET | 322 | 150 - 400 K/cu | [facility] [...] LABORATORY | [address] | [place] [address] | | | SERVICES, CORE | [address] | | | + + + + + MAGNESIUM, PLASMA (03/23/2016 5:50 AM PDT) + +-------+ + + + [...] LABORATORY | [address] | [place] [address] | | | SERVICES, CORE | [address] | | | + + + + + FIBRINOGEN (03/23/2016 5:50 AM PDT) + +-------+ + + + | Component | Value | Ref Range | Performed | Pathologist | | | | | At | Signature | + +-------+ + + + | FIBRINOGEN | 367 | 200 - 450 mg/dL | [facility] [...] | + + + + + | [facility] | [address] | [place] [address] | | | SERVICES, CORE | [address] | | | + + + + + INR (03/23/2016 5:50 AM PDT) + +-------+ + + + | Component | Value | Ref Range | Performed | Pathologist | | | | | At | Signature | + +-------+ + + + | INR | 1.06 [...] | + + + + + | [facility] | [address] | [place] [address] | | | SERVICES, CORE | [address] | | | + + + + + APTT (ACT. PART. THROMBO TIME) (03/23/2016 5:50 AM PDT) + +-------+ + + + | Component | Value | Ref Range | Performed | Pathologist | | | | | At | Signature | + +-------+ + + + | APTT | 28.5 | 26.0 - 36.0 | [facility] | [...] | + + + + + | [facility] | [address] | [place] [address] | | | SERVICES, CORE | [address] | | | + + + + + RENAL FUNCTION SET (NA,K,CL,CO2,BUN,CREAT,GLUC,CA,PHOS,ALB ) (03/23/2016 5:50 AM PDT) + +---------+ + + + | Component | Value | Ref Range | Performed | Pathologist | | | | | At | Signature | + +---------+ + + + | GLUCOSE, | 138 (H) | 60 - 99 mg/dL | [...] | | | LABORATORY | | | [facility] | | | SERVICES, | | | [...] +---------+ + + + | CALCIUM(ALB | 9.6 [...] +---------+ + + + | PHOSPHORUS, | 3.4 | 2.4 - 4.7 mg/dL | [facility] [...] the MDRD equation recommended by the | [facility] | | National Kidney Disease Education [...] | + + + + + | [facility] | [address] | [place] [address] | | | HORACIO, NINO | [address] | | | + + + + + CAPILLARY BLOOD GLUCOSE (NO CHG), POC (03/22/2016 10:52 PM PDT) + +---------+ + + + | Component | Value | Ref Range | Performed | Pathologist | | | | | At | Signature | + +---------+ + + + | BLOOD | 149 (H) | 60 - 99 mg/dL | [facility] - | | | GLUCOSE, | | [...] [facility] | [address] | [place], [place] | | | ZELALEM HERRERA OF [place] | [facility] | [id number] | | | TESTS | | | | + + + + + PROCEDURE NOTE (03/22/2016 7:43 PM PDT)CAPILLARY BLOOD GLUCOSE (NO CHG), POC (03/22/2016 7:21 PM PDT) + +---------+ + + + | Component | Value | Ref Range | Performed | Pathologist | | | | | At | Signature | + +---------+ + + + | BLOOD | 120 (H) | 60 - 99 mg/dL | [...] [facility] | [address] | [place], [place] | | | [facility] | [address] | [address] | | | TESTS | | | | + + + + + CAPILLARY BLOOD GLUCOSE (NO CHG), POC (03/22/2016 1:25 PM PDT) + +---------+ + + + [...] | + + + + + | [facility] | [address] | [place], [place] | | | [facility] | [address] | [address] | | | TESTS | | | | + + + + + PROCEDURE NOTE (03/22/2016 12:07 PM PDT) + + + | Narrative | Performed At | + + + | Thomas Gorman MD,PhD 03/22/2016 12:07 PM INPATIENT BRIEF | | | OPERATIVE NOTE Procedure Date: 03/22/2016 Author: Thomas | | | MD Shannon,PhD Attending Physician: isela Assistants: shannon | | | Prior to the beginning of the procedure, the team paused to verify | | | the patient | | | | | [...] | | | were addressed. Preoperative Diagnosis: 1. Residual glioneuronal | | | thoracic cord tumor 2. Existing RLE weakness 3. New LLE weakenss | | | Postoperative Diagnosis: same Procedure Performed: 1. Right T8 | | | and T9 hemilaminectomy 2. Resection of T8 level tumor 3. Resection | | | of T9 level tumor 4. Use of operating microscope 5. 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 | | | Complications: none Drains: none Disposition: pacu blackburn | | | Findings: fluffy white tumor removed, no further tumor identified, | | | primary dural closure, wale to skin, no change in signals | | | Plan: ancef, flat x24 hours, analgesia | | + + + HCG URINE, POC (03/22/2016 7:49 AM PDT) + + + + + + | Component | Value | Ref Range | Performed | Pathologist | | | | | At | Signature | + + + + + + | HCG URINE, | Negative | Negative | [facility] - | | | POC | | | [facility] | | | | | | [facility] | | | | | | [facility] CARE | | | | | | TESTS | | + + + + + + + + | Specimen | + + | Urine - Urine | + + + + + + + | Performing | Address | City/State/Zipcode | Phone Number | | Organization | | | | + + + + + | [facility] | [address] | [place], [place] | | | [facility] | [facility] | [address] | | | TESTS | | | | + + + + + CAPILLARY BLOOD GLUCOSE (NO CHG), POC (03/22/2016 6:16 AM PDT) + +---------+ + + + | Component | Value | Ref Range | Performed | Pathologist | | | | | At | Signature | + +---------+ + + + | BLOOD | 126 (H) | 60 - 99 mg/dL | [...] + | [facility] | [address] | [place], [place] | | | [facility] | [address] | [address] | | | TESTS | | | | + + + + + CT SPINE THORACIC WO CONTRAST (03/22/2016 3:27 AM PDT) + + + + + + | Component | Value | Ref Range | Performed | Pathologist | | | | | At | Signature | + + + + + + | CT THORACIC | EXAM: CT thoracic | | | | | SPINE WO | spine without contrast | | | | | CONTRAST | HISTORY: Evaluate bony | | | | | | anatomy for preoperative | | | | | | planning, [place] 03/22 | | | | | | COMPARISON: Multiple | | | | | | previous exams, the most | | | | | | recent MRI T-spine from | | | | | | 01/22/2016 TECHNIQUE: | | | | | | CT thoracic spine | | | | | | without contrast, with | | | | | | 2D | | | | | | multiplanarreconstructio | | | | | | ns. FINDINGS: | | | | | | Alignment: Normal | | | | | | Vertebrae: Prior T6-7 | | | | | | laminectomies and right | | | | | | T10 hemilaminotomy. | | | | | | Nofractures or | | | | | | destructive changes No | | | | | | spinal cord signal | | | | | | abnormality and | | | | | | enhancing foci are not | | | | | | evaluated by CT. | | | | | | Paraspinal soft | | | | | | tissues: Linear scarring | | | | | | in the posterior | | | | | | paraspinous softtissues. | | | | | | Visualized paraspinous | | | | | | soft tissues are | | | | | | otherwise unremarkable. | | | | | | IMPRESSION: Prior T6-7 | | | | | | laminectomies and right | | | | | | T10 hemilaminotomy for | | | | | | resection of spinalcord | | | | | | neoplasm. Please see | | | | | | previous MRI report for | | | | | | further discussion of | | | | | | spinalcord signal | | | | | | abnormality and | | | | | | enhancing lesions. | | | | | | Attending Radiologists: | | | | | | LIOR GAN, | | | | | | MDAuthor: [...] | | | | | signed / LIOR | | | | | | ELVIA 03/22/2016 | | | | | | 10:54 AM Pending final | | | | | | approval / SUMEET | | | | | | YVAN 03/22/2016 10:22 | | | | | | AM Preliminary / | | | | | | SUMEET SANTORO 03/22/2016 | | | | | | 8:26 AM | | | | + + [...] + CAPILLARY BLOOD GLUCOSE (NO CHG), POC (03/22/2016 1:36 AM PDT) + +---------+ + + + | Component | Value | Ref Range | Performed | Pathologist | | | | | At | Signature | + +---------+ + + + | BLOOD | 114 (H) | 60 - 99 mg/dL | [...] [facility] | [address] | [place], [place] | | | [facility] | [address] | [address] | | | TESTS | | | | + + + + + INTRAOPERATIVE NEURO MONITORING (03/22/2016) + + + | Narrative | Performed At | + + + | Patient Name: Matt Fagan Date of : 1990 | | | Date of Test: 03/22/2016 Place of | | | Service: IP Intra Op (32) [id number] INTRAOPERATIVE NEURO | | | MONITORING History: This is a 25 y.o. female patient with a | | | history of thoracic spine tumor. 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 | | | Conditions of Recording: Repetitive electrical stimulation of the | | | posterior tibial nerve was performed at the ankle, with recordings | | | over the popliteal fossa, cervical spine and scalp. Repetitive | | | electrical stimulation of the ulnar nerve was performed at the | | | wrist, with recordings over the brachial plexus, the cervical spine | | | and the scalp. Train of four response was done to compare the | | | ratio of the fourth to the first twitch when stimulated at a rate of | | | 2 Hz to assess the degree of neuromuscular blockade. To obtain | | | transcranial electrical motor evoked potentials, trains of 6 pulses | | | with an individual pulse duration of 0.5 ms and an interstimulus | | | interval of 4 ms were delivered over the bilateral central regions of | | | the scalp. Description of recording: Preoperative waveforms | | | were obtained after general anesthesia for baseline. During surgery, | | | SSEPs were repetitively performed. Following posterior tibial | | | nerve stimulation, there was a reproducible subcortical potential, | | | N29, at latencies of approximately 29.2 msec. A reproducible | | | cortical waveform, N37, was present at latencies of about 37.1 msec. | | | Right lower extremity SSEP responses were absent for baseline. | | | Following ulnar nerve stimulation, there was a cervical potential, | | | N13, at latencies of approximately 12.8 msec. The cortical | | | waveform, N20, was present at latencies of about 19.8 msec. There | | | were no significant changes in the latencies or amplitudes of the | | | ulnar nerve responses as compared to baseline values. Following | | | transcranial stimulation, there were reproducible EMG responses from | | | the bilateral upper and left lower extremity muscles. Right lower | | | extremity MEP responses were absent for baseline. Intraoperative | | | interpretation was performed using real-time display of | | | intraoperative neurophysiologic recordings for 3 hours 1 minute | | | (8:27-11:28). Dr. Alexandra was continuously available for | | | communication with the recording technologist and the operative team | | | during this time. Impression: Right lower extremity SSEP and MEP | | | responses were absent for Baseline. 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 No high grade | | | | | | features are seen. | | | | | | Case seen by:Bernadette Hogan, | | | | | | Matt, Ph.D. / Pathology | | | | | | Nirmala Bolton, | | | | | | D.O. / Neuropathology | | | | | | fellowRandall Tiki, | | | | | | M.D., Ph.D. 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 [facility]. Now presenting | | | | | | with left lower | | | | | | extremity weakness | | | | | | andthoracic spinal cord | | | | | | mass suspicious for | | | | | | recurrence. Gross | | | | | | Description:Received are | | | | | | 2 specimens received | | | | | | fresh labeled patient's | | | | | | name initials RE,medical | | | | | | record #[id number], and | | | | | | labeled as A: | | | | | | Thoracic spinal cord | | | | | | tumor higher level | | | | | | | | | | | | Received 0.2 x 0.1 x 0.1 | | | | | | -cm in aggregate are | | | | | | multiple soft, moctezuma | | | | | | tissues.The entire | | | | | | specimen is submitted. | | | | | | B: Thoracic spinal | | | | | | cord tumor lower | | | | | | level | | | | | | | | | | | | Received 0.2 x 0.1 x 0.1 | | | | | | -cm in aggregate are | | | | | | multiple soft, moctezuma | | | | | | tissues.The entire | | | | | | specimen is submitted. | | | | | | Cassette Index:A1, | | | | | | thoracic spinal CORD | | | | | | tumor higher levelBI, | | | | | | thoracic spinal CORD | | | | | | tumor lower levelEDR | | | | | | My [...] Ph.D.PathologistElectron | | | | | | icakeyonna Signed 03/24/2016 | | | | | | 9:17PM | | | | + + + [...] | + + + + + | [facility] | [address] | [place] [address] | | | PATHOLOGY | [address] | | | + + + + + CARDIOLOGY (03/22/2016 12:00 AM PDT) + + + | Narrative | Performed At | + + + | | | + + + URINE CULTURE WORKUP (03/21/2016 11:44 PM PDT) + + | Specimen | + + | Urine - Urine | + + + + + | Narrative | Performed At | + + + | Culture Report: < 10,000 cfu/ml Insignificant growth | [facility] | | | [facility] - | | | [place] | + + + + + + + + | Performing | Address | City/State/Zipcode | Phone Number | | Organization | | | | + + + + + | [facility] | [address] | [place] [address] | | | [place] | | | | + + + + + CULTURE, URINE [facility] (03/21/2016 11:44 PM PDT) + + + + + [...] | + + + + + | [facility] | [address] | [place] [address] | | | SERVICES, CORE | [address] | | | + + + + + URINE, MICROSCOPIC EXAM (03/21/2016 11:44 PM PDT) + +---------+ + + + [...] + + + | WHITE CELLS | 2 | 0 - 5 /hpf | [facility] | | | | | | LABORATORY | | | | | | SERVICES, | | | | | | CORE | | + +---------+ + + + | BACTERIA | Few [...] | + +---------+ + + + | NON-SQUAMOU | None [...] LABORATORY | [address] | [place] [address] | | | SERVICES, CORE | [address] | | | + + + + + URINE SCREEN FOR CULTURE (03/21/2016 11:44 PM PDT) + + + + + [...] Screen Positive, specimen sent for culture. | [facility] | | | LABORATORY | | | [address] | + + + + + + + + | Performing | Address | City/State/Zipcode | Phone Number | | Organization | | | | + + + + + | [facility] | [address] | [place] [address] | | | [address] | [address] | | | + + + + + CBC (HEMOGRAM) ONLY (03/21/2016 10:52 PM PDT) + +-------+ + + + | Component | Value | Ref Range | Performed | Pathologist | | | | | At | Signature | + +-------+ + + + | WHITE CELL | 10.32 | 4.40 - 11.00 | [facility] | | | COUNT | | K/cu mm | LABORATORY | | | | | | SERVICES, | | | | | | CORE | | + +-------+ + + + | RED CELL | 4.95 | 4.00 - 5.20 | [facility] | | | COUNT | | M/cu mm | LABORATORY | | | | | | SERVICES, | | | | | | CORE | | + +-------+ + + + | HEMOGLOBIN | 13.2 | 12.0 - 16.0 | [facility] | | | | | g/dL | LABORATORY | | | | | | SERVICES, | | | | | | CORE | | + +-------+ + + + | HEMATOCRIT | 40.4 | 36.0 - 46.0 % | [facility] | | | | | | LABORATORY | | | | | | SERVICES, | | | | | | CORE | | + +-------+ + + + | MCV | 81.6 | 80.0 - 96.0 fL | [facility] | | | | | | LABORATORY | | | | | | SERVICES, | | | | | | CORE | | + +-------+ + + + | MCHC | 32.7 | 33.0 - 35.5 | [facility] | [...] +-------+ + + + | PLATELET | 312 | 150 - 400 K/cu | [facility] | | | COUNT | | mm | LABORATORY | | | | | | SERVICES, | | | | | | CORE | | + +-------+ + + + | MPV | 10.6 | 9.7 - 12.3 fL | [facility] [...] LABORATORY | [address] | [place] [address] | | | SERVICES, CORE | [address] | | | + + + + + ANTIBODY SCREEN (03/21/2016 10:52 PM PDT) + + + + + [...] | + + + + + | [facility] | [address] | [place] [address] | | | SERVICES, | [address] | | | | TRANSFUSION MEDICINE | | | | + + + + + ABO & RH TYPE (03/21/2016 10:52 PM PDT) + + + + + [...] LABORATORY | [address] | [place] [address] | | | SERVICES, | [address] | | | | TRANSFUSION MEDICINE | | | | + + + + + FIBRINOGEN (03/21/2016 10:52 PM PDT) + +-------+ + + + | Component | Value | Ref Range | Performed | Pathologist | | | | | At | Signature | + +-------+ + + + | FIBRINOGEN | 386 | 200 - 450 mg/dL | [facility] | | | LEVEL | | | [...] + + | [facility] | [address] | [place] [address] | | | SERVICES, CORE | [address] | | | + + + + + APTT (ACT. PART. THROMBO TIME) (03/21/2016 10:52 PM PDT) + +-------+ + + + | Component | Value | Ref Range | Performed | Pathologist | | | | | At | Signature | + +-------+ + + + | APTT | 32.3 | 26.0 - 36.0 | [facility] | [...] | + + + + + | [facility] | [address] | [place] [address] | | | SERVICES, CORE | [address] | | | + + + + + INR (03/21/2016 10:52 PM PDT) + +-------+ + + + | Component | Value | Ref Range | Performed | Pathologist | | | | | At | Signature | + +-------+ + + + | INR | 1.03 | 0.90 - 1.20 INR | [facility] [...] + | [facility] | [address] | [place] [address] | | | SERVICES, NINO | [address] | | | + + + + + MAGNESIUM, PLASMA (03/21/2016 10:52 PM PDT) + +-------+ + + + [...] | + + + + + | [facility] | [address] | [place] [address] | | | SERVICES, CORE | [address] | | | + + + + + RENAL FUNCTION SET (NA,K,CL,CO2,BUN,CREAT,GLUC,CA,PHOS,ALB ) (03/21/2016 10:52 PM PDT) + +---------+ + + + [...] +---------+ + + + | CREATININE | 0.84 | 0.60 - 1.10 | [facility] | | | PLASMA | | mg/dL | LABORATORY | | | (LAB) | | | SERVICES, | | | | | | CORE | | + +---------+ + + + | EGFR | >60 | >60 mL/min | [facility] | | | - | | | LABORATORY | | | [address] | | | SERVICES, | | | [...] +---------+ + + + | ALBUMIN, | 3.9 | 3.5 - 4.7 g/dL | [facility] [...] +---------+ + + + | ANION | 7 [...] | + + + + + | [facility] | [address] | [place] [address] | | | SERVICES, CORE | [address] | | | + + + + + CAPILLARY BLOOD GLUCOSE (NO CHG), POC (03/21/2016 10:48 PM PDT) + +-------+ + + + [...] [facility] | [address] | [place], [place] | | | [facility] | [address] | [address] | | | TESTS | | | | + + + + + PRODUCT - RED CELLS LEUKOREDUCED (03/21/2016 8:37 PM PDT) + + + + + + | Component | Value | Ref Range | Performed | Pathologist | | | | | At | Signature | + + + + + + | PRODUCT | -1 RED BLOOD CELL | | [facility] | | | DESCRIPTION | ADENINE-SALINE ADDED | | DEPARTMENT | | | | LEUKOCYTE | | OF | | | | | | PATHOLOGY | | + + + + + + | PRODUCT | [id number] | | [facility] | | | UNIT [...] + + + + | EXPIRATION | [id number] | | [facility] | | | DATE [...] + + + + | BLOOD | [id number] | | [facility] | | | PRODUCT [...] | + + + + + | [facility] | [address] | [place] [address] | | | PATHOLOGY | [address] | | | + + + + + PRODUCT - RED CELLS LEUKOREDUCED (03/21/2016 8:37 PM PDT) + + + + + + | Component | Value | Ref Range | Performed | Pathologist | | | | | At | Signature | + + + + + + | PRODUCT | -1 RED BLOOD CELL | | [facility] | | | DESCRIPTION | ADENINE-SALINE ADDED | | DEPARTMENT | | | | LEUKOCYTE | | OF | | | | | | PATHOLOGY | | + + + + + + | PRODUCT | [id number] | | [facility] | | | UNIT [...] + + + + | EXPIRATION | [id number] | | [facility] | | | DATE [...] + + + + | BLOOD | [id number] | | [facility] | | | PRODUCT [...] | + + + + + | [facility] | [address] | [place] [address] | | | PATHOLOGY | [address] | | | + + + + + ED INFORMATION EXCHANGE (03/21/2016 6:36 PM PDT) + + + + + + | Component | Value | Ref Range | Performed | Pathologist | | | | | At | Signature | + + + + + + | [facility] | [id number] | | [facility] | | | | [id number] | | MEDICAL | | | | | | TECHNOLOGIE | | | | | | S | | + + + + + + + + | Specimen | + + | | + + + + + | Narrative | Performed At | + + + | [facility] has no Care Guidelines for this patient. ED/UCC VISIT | [facility] | | TRACKING (3 MO.) Visit Date Location | MEDICAL | | City ST Type Dx / | TECHNOLOGIES | | Complaint -------- | | | ------- ---- | | | 03/21/2016 18:35 [facility] and | | | [facility] [place] Emergency [address]. 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 | | | [place] Emergency NO FEELING IN LOWER LIMBS | | | INPATIENT VISIT TRACKING (1 MO.) Visit Date | | | LocationCity ST TypeDx / Complaint | | | ED | | | VISIT COUNT (1 YR.) Visits Location ------ --------- 2 | | | [facility] | [facility] Total Note: Visits indicate total | | | known visits. | | | | | | --- CARE PROVIDERS Name | | | Phone Type | | | Service Dates ---- | | | ----- ---- | | | [facility] | | | [phone] Primary Care Unknown - Current | | | [facility] Unknown | | | Primary Care Unknown - Current [facility] | | | [facility] Unknown Primary Care | | | Unknown - Current [facility] | | | [phone] Primary Care 01/26/2016 - | | | Current [facility] | | | [phone] Primary Care 01/24/2016 - Current | | + + + + + + + + | Performing | Address | City/State/Zipcode | Phone Number | | Organization | | | | + + + + + | [facility] | [address] | [place], [place] | [phone] | | TECHNOLOGIES | [address] | [address] | | + + + + + documented in this encounter Visit Diagnoses + + | Diagnosis | + + | 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) Neoplasm of uncertain | | behavior of brain and spinal cord | + + documented in this encounter Administered Medications + +--------+ + +------+ + | Medication Order | MAR | Action | Dose | Rate | Site | | | Action | Date | | | | + +--------+ + +------+ + | bacitracin 50,000 Units, | Given | 03/22/20 | 1,000 mL | | Surgical | | ringers (TIS-U-JADIEL) 1,000 mL | | 16 9:00 | | | Site | | INTRAPROCEDURE PRN, Starting Wed | | AM PDT | | | | | 03/22/16 at 0900, Until Wed | | | | | | | 03/22/16 at 1232 | | | | | | + +--------+ + +------+ + +---+---+ | | | +---+---+ + +-------+ +-------+---+ + | bupivacaine-EPINEPHrine | Given | 03/22/20 | 20 mL | | Surgical | | (MARCAINE-EPINEPHRINE) 0.25 | | 16 9:02 | | | Site | | %-1:200,000 injection | | AM PDT | | | | | INTRAPROCEDURE PRN, Starting Wed | | | | | | | 03/22/16 at 0902, Until Wed | | | | | | | 03/22/16 at 1232 | | | | | | + +-------+ +-------+---+ + +---+---+ | | | +---+---+ + +-------+ +---------+---+ + | thrombin 5000 unit topical | Given | 03/22/20 | 10,000 | | Surgical | | solution INTRAPROCEDURE PRN, | | 16 9:01 | Units | | Site | | Starting Sun03/22/16 at 0901, | | AM PDT | | | | | Until Sun03/22/16 at 1232 | | | | | | + +-------+ +---------+---+ + +---+---+ | | | +---+---+ documented in this encounter
--- OUTSIDE RECORDS SUMMARY | ~2019-11-28 | XMS | Encounter Summary ---
Demographics + + + | Address | [address] | | | [place] [address] | + + + | Home Phone | | + + + | Preferred Language | Unknown | + + + | Marital Status | Single | + + + | Tenriism Affiliation | NON | + + + [...] Team Providers + +------+ + | Care Publicist Name | Role | Phone | + [...] [address] | | | | | | [address] [facility] | | | | | | Hospital Admitting | | | | | | Desk Located on the | | | | | | 9th floor | | | | | | [place], [place] | | | | | | [address] | | | +--------+ + + + [...] | | | | | | [place], [place] | | | | | | [address] | | | | | | [phone] | | | | | | | | +--------+ + + + + | 12/10/ | Office | Neurological Surgery | April Beck MD | | | 2019 | Visit | | [address] | | | | | | [address] | | | | | | [facility] [place] | | | | | | [address] | | | | | | [phone] | | | | | | | | +--------+ + + + + documented as of this encounter Visit Diagnoses Not on filedocumented in this encounter"
--- OUTSIDE RECORDS SUMMARY | ~2019-11-28 | XMS | Encounter Summary ---
Demographics + + + | Address | [address] | | | [place] [address] | + + + | Home Phone [...] Team Providers + +------+ + | Care Oil And Gas Exploration Technician Name | Role | Phone | + +------+ + | Clare Franks MD | PCP | | + +------+ + Encounter Details +--------+ + + + + | Date | Type | Department | Care Team | Description | +--------+ + + + + | 02/14/ | Toll Line Mechanic | [facility] | Raegan Doss, | | | 2017 | | [facility] [address] | PA-C [address] | | | | | [place] Mailcode: | [place], [place] | | | | | [facility] | [address] | | | | | and [place], | [phone] | | | | | [place] [address] | | | | | | [place], [place] | | | | | | [address] | | | | | | [phone] | | | +--------+ + + + [...] Doyle | | | | | | [place] [facility] [place] | | | | | | [address] | | | | | | [phone] | | | | | | | | +--------+ + + + + | 12/10/ | Office | Neurological Surgery | April Beck MD | | | 2020 | Visit | | [address] [facility] | | | | | | [address] | | | | | | [place], [place] | | | | | | [address] | | | | | | [phone] | | | | | | | | +--------+ + + + + documented as of this encounter Visit Diagnoses Not on filedocumented in this encounter"
--- OUTSIDE RECORDS SUMMARY | ~2019-11-28 | XMS | Encounter Summary ---
Demographics + + + | Address | [address] | | | [place] [address] | + + + | Home Phone [...] + + | Author | [facility] | + + + | Organization | [facility] | + + + | [...] Team Providers + +------+ + | Care Conversion Developer Name | Role | Phone | + [...] Robert, | Social Work Notes | | 2016 | on | [facility] [address] | [place] [address],GER | | | | | [address] | [address] | | | | | Mailcode: [id number] | [facility] | | | | | [place], [place] | [place], [place] | | | | | [address] | [address] | | | | | [phone] | | | +--------+ + + + [...] | | 2019 | | | [facility] [address] | | | | | | [place], [place] | | | | | | [address] | | | | | | [phone] | | | | | | | | +--------+ + + + + | 12/10/ | Office | Neurological Surgery | April Beck MD | | | 2020 | Visit | | [address] | | | | | | [address] | | | | | | [place] | | | | | | [address] | | | | | | [phone] | | | | | | | | +--------+ + + + + documented as of this encounter Visit Diagnoses Not on filedocumented in this encounter"
--- OUTSIDE RECORDS SUMMARY | ~2019-11-28 | XMS | Encounter Summary ---
Demographics + + + | Address | [address] | | | [place] [address] | + + + | Home Phone [...] Team Providers + +------+ + | Care Paintings Conservator Name | Role | Phone | + [...] Romario, | | | | | | Thoracic | Raegan Nieves | | | | | | spine tumor | [facility] [address] | | | | | | Procedures | [address] | | | | | | | [facility] [place] | | | | | | OCCUPATIONAL | [address] | | | | | | THERAPY | Phone: | | | | | | REFERRAL | [phone] | | | | | | | Fax: | | | | | | | [phone] | | +--------+--------+ + + + + Physical Therapy (Routine) +--------+--------+ + + + + | Status | Reason | Specialty | Diagnoses / | Referred By | Referred To | | | | | Procedures | Contact | Contact | +--------+--------+ + + + + | Closed | | | Diagnoses | Romario, | | | | | | Thoracic | Raegan Nieves, | | | | | | spine tumor | PAAndrewC [address] | | | | | | Procedures | [address] | | | | | | PHYSICAL | [facility] [place] | | | | | | THERAPY | [address] | | | | | | REFERRAL | Phone: | | | | | | | [phone] | | | | | | | Fax: | | | | | | | [phone] | | +--------+--------+ + + + + [...] + + + + | 05/12/ | Hospital | [facility] [address] | Rajinder Luis MD | | | 2015 - | Encounter | [address] | [address] | | | | | [id number] [place] | [place], [place] | | | 05/20/ | | [facility] [place], | [address] | | | 2014 | | [place] [address] | [phone] | | | | | [phone] | | | +--------+ + + + [...] 05/20/2015 Attending Physician: Rajinder Luis MD PCP: PTARIC Todd Service: [facility] Neurosurgery Diagnoses Principal Final Diagnosis: Intramedullary spinal [...] providers, and medical/nursing staff. Post operatively, the rbyn ent was admitted to the NSICU for [...] patient was felt appropriate for discharge to [facility] (Stephan [facility] Jain) on 05/20/2015, and the patient and/or family [...] completed No Destination: Destination: Inpatient Rehab - [facility] Condition on Discharge Good Discharge Follow Up - Facility MD to follow Facility MD to follow patient. FOLLOW-UP You have a wound check appointment with Raegan Doss PA-C at 11:30am on 05/31. This will be on the 8th floor at the [facility] on the [facility] located at [address] [place] [address]. Please call [phone] if you have any questions or conc erns before your appointment time. If you are still admitted to [facility] at this time, it is okay to cancel this appointment as thais costa as a provider at that facility can examine your incision. Please then make an appointmen t with Raegan Doss for 1 month following your discharge from [facility]. PCP:PATRIC Todd When: Please follow-up with [...] at discharge as appropriate: BP: 95/52 mmHg (05/20/15 034) Pulse: 84 (05/20/15 034) Resp: 16 ( 034) Weight: 92.3 kg (203 lb 7.8 oz) (05/14/15 0500) Discharge Patient To: Interhospital Transfer - [facility] Does patient have a planned readmission: No Discharge Summary Completed?: Yes. 05/20/2015 Discharging Provider: Raegan Doss PA-C Date Completed: 05/20/2015 Time Completed: 7:50 AM Discharging Attending: Rajinder Luis MD [facility] [address] [address] [address] documented in this encounter Progress Notes Raegan [...] O2 Delivery Device: None (room air ) (05/20/15 034) 24 Hour Vital Min/Max: Systolic (24hrs), Av mmHg, Min:87 mmHg, Max:124 mmHgDiastolic (24hrs), Av mmHg, Mi n:52 mmHg, Max:85 mmHgPulse Min: 84 Max: 127 Temp Min: 36.4 C (97.5 F) Max: 37.3 C (99.1 F) Resp Min: 16 Max: 16 SpO2 Min: 94 % Max: 100 % Intake/Output Summary (Last 24 hours) at 05/20/15 06 Last data filed at 05/20/15 0615 Gross per 24 hour Intake 1360 ml Output 2050 ml Net -690 ml Exam: Alert, oriented x3. Speech clear, fluent. Gaze conjugate. Face symmetric. Thoracic incision: flat, no erythema, absorbable sutures present, intact. Sensation: Decreased sensation from T6 down. LLE - pt able to discern touch on medial/later al sides of foot. Motor: Tri Bi Javascript Front End Developer HF KE APF ADF Left 5 5 [...] BLE duplex neg for DVT. Dispo: To [facility] ([facility]ain) today. Raegan Doss PA-C [facility] [address] [address] [address] dams, PHILIPPE Mena - 05/19/2015 6:52 AM [...] Intake/Output Summary (Last 24 hours) at 05/19/15 0622 Last data filed at 05/19/15 033 Gross [...] rest of the LLE. Motor: Tri Bi Javascript Front End Developer HF KE APF ADF Left 5 5 [...] CM for IPR placement. Raegan Doss PA-C [facility] [address] [facility] [address] dams, PHILIPPE Mena - 05/18/2015 6:52 AM [...] Delivery Device: None (room ai r) (05/18/15 609) 24 Hour Vital Min/Max: Systolic (24hrs), Av mmHg, Min:99 mmHg, Max:108 mmHgDiastolic (24hrs), Av mmHg, Mi n:51 mmHg, Max:62 mmHgPulse Min: 72 Max: 99 Temp Min: 36.3 C (97.3 F) Max: 37.3 C (99.1 F) Resp Min: 16 Max: 16 SpO2 Min: 93 % Max: 98 % Intake/Output Summary (Last 24 hours) at 05/18/15 06 Last data filed at 05/18/15 0400 Gross [...] intact at pre-op baseline. Motor: Bi Tri Javascript Front End Developer HF KE APF ADF Left 5 5 [...] CM for IPR placement. Raegan Doss PA-C [facility] [address] [address] [address] dams, PHILIPPE Mena - 05/17/2015 8:48 AM [...] at pre-op baseline. Motor: Delt Tri Bi Javascript Front End Developer HF KE APF ADF Left 5 5 [...] CM for IPR placement. Raegan Doss PA-C [facility] [address] [address] [place], [place] [address] Cesar Cox MD - 02/2015 9:39 AM [...] Now s/p T8-9 lami for tumor resection 07/13 PLAN: Neurological: - Continue acute care [...] clinical course Cesar Odonnell MD Neurosurgery PGY1 hChris lopez PA - 1 07/14/2014 4:29 PM PST NEUROCRITICAL CARE PROGRESS NOTE Author: Park Hoover MD Date of SERVICE: 05/14/2015 ICU Attending: MD Sarina Admit Service: [facility] ICU Day # 2 POD # 1 HPI: Matt Fagan is a 24 y.o. 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 She reports that her RLE numbness has worsened si nee neurosurgery last saw her. She also endorses [...] information of next of kin: Judit mother [phone] Disposition: Acute care Code: Full This patient has been staffed with Lesly Branch MD , attending physician, who agrees with the above assessment and plan. [facility] DEPARTMENT: [id number] ICU NEURO Place of Service:- Inpatient Date of Service: 05/14/2015 CSN: [id number] Lab Results Component Value Date WBC 23.58 [...] tablet 2 mg 2 mg oral TID Yokasta Price MD - 05/14/2015 12:33 PM PSTBrief Progress [...] and check patient later Yokasta Randall PGY2 [id number] Lesly Flynn MD - 8:25 AM PSTNSICU ATTENDING Author: Lesly Branch MD Briefly, this [...] due to CSF hai k, cord injury, MO, UTI, acute blood loss anemia, DVT 1. [...] DVT proph with SCDs. Lesly Branch M.D. Waistline Joiner, Neurology and Emergency Medicine I spent 20 minutes in direct care of this patient with over 50% spent at the patient s b eside, reviewing data, discussing the patient s care with other medical staff, charting, a nd discussion with treatment decision maker. [facility] DEPARTMENT: [id number] CRITICAL CARE Place of Service: Inpatient Date of Service: 05/14/2015 CSN: [id number] Suggested Level of Care: 01522 - SUBSEQUENT HOSPITAL CARE,LEVEL III iPolly lemus MD ,MPH - 05/14/2015 5:19 AM PST [...] the or iginal. NSICU Neuroscience ICU Attending Commercial Escrow Assistant Note I have seen and evaluated Matt [...] and coordination of care Cathy Cespedes MD,PhD [facility] DEPARTMENT: [id number] ICU NEURO Place of Service:- Inpatient Date of Service: 05/13/2015 CSN: [id number] Suggested Modifier: Resident involved Suggested CPT: TO LEHR TENDER Gilbert Collins MD,MPH - 05/13/2015 8:49 PM [...] Polly Hankins M.D. MPH Neurological Surgery, PGY-3 Raegan Liu PA-C - 05/13/2015 8:48 AM PST . [...] O2 Deliver y Device: None (room air) (05/13/15732) 24 Hour Vital Min/Max: Systolic (24hrs), Av mmHg, Min:119 mmHg, Max:137 mmHgDiastolic (24hrs), Av mmHg, M in:60 mmHg, Max:75 mmHgPulse Min: 67 Max: 82 Temp Min: 36.4 C (97.5 F) Max: 36.7 C (98.1 F) Resp Min: 16 Max: 16 SpO2 Min: 95 % Max: 98 % Intake/Output Summary (Last 24 hours) at 05/13/15847 Last data filed at 05/13/15732 Gross per 24 hour Intake 830 ml Output 0 ml Net 830 ml Exam: Alert, oriented x3. Speech clear, fluent. Pupils equal. Gaze conjugate. Face symmetric. Sensation: Decreased sensation to bottom of L foot, decreased sensation on R anterior thigh , R solorio and entire foot. Motor: Tri Bi WE Javascript Front End Developer HF KE APF ADF Left 5 5 [...] dilaudid available prn pain Raegan Doss PA-C [facility] [address] [place] [address] Polly Collins MD,MPH - 05/12/2015 7:33 PM [...] | | 2019 | | | [facility] [address] | | | | | | [place], [place] | | | | | | [address] | | | | | | [phone] | | | | | | | | +--------+ + + + + | 12/10/ | Office | Neurological Surgery | April Beck MD | | | 2019 | Visit | | [address] | | | | | | [address] | | | | | | [place], [place] | | | | | | [address] | | | | | | [phone] | | | | | | | [...] Attending | | Surgeon: Rajinder Luis MD Standards Engineer(s): Jere Story MD | | Preoperative Diagnosis: [...] | endotracheal anesthesia was induced on the [facility]. Occlusive dressings were | | placed over [...] turned back supine on | | the [facility]. She was extubated and she was taken to the recovery area in stable | | condition. At the end of the case, all instrument, sponge, and needle counts were | | correct in 2 iterations. I, Rajinder Luis MD was scrubbed and actively participated | | performing the critical portions of the operation.ZAMZAM Henry/MODLDD: | | 05/15/2015 08:21:01DT: 05/15/2015 08:59:43Job #: [id number] | | | |Rajinder Luis MD | |EZEKIEL/SHANNAN | | | | | | /[id number] | + + MAGNESIUM, PLASMA (05/17/2015 10:09 [...] LABORATORY | [address] | [place] [address] | | | SERVICES, CORE | PARK [...] | + + + + + | [facility]OR[facility]ORY | [address] | [place] [address] | | | SERVICES, CORE | PARK [...] | | | LABORATORY | | | CHINESE | | | SERVICES, | | | [...] | + + + + + | [facility] | [address] | [place] [address] | | | SERVICES, CORE | PARK [...] | + + + + + | [facility] | [address] | [place] [address] | | | NINO LEONARD | [address] | | | [...] | | | LABORATORY | | | CHINESE | | | SERVICES, | | | [...] | + + + + + | [facility] | [address] | [place] [address] | | | SERVICES, CORE | PARK [...] | + + + + + | [facility] | [address] | [place] [address] | | | SERVICES, CORE | PARK [...] | + + + + + | [facility] | [address] | [place] [address] | | | SERVICES, CORE | JEAN [...] | | | LABORATORY | | | CHINESE | | | SERVICES, | | | [...] | + + + + + | [facility] | [address] | [place] [address] | | | SERVICES, CORE | [address] | | | + + + + + OUTSIDE NEURO SPINE - READ REQUEST (05/14/2015 10:32 AM PST) + + + + + + | Component | Value | Ref Range | Performed | Pathologist | | | | | At | Signature | + + + + + + | OUTSIDE | EXAM: [facility] professional | | | | | NEURO [...] | | + +---------+ + + | [facility] DEPARTMENT | | | | | RADIOLOGY | [...] | + + + + + | [facility] | [address] | [place] [address] | | | SERVICES, NINO | JEAN [...] + | [facility] | [address] | [place] [address] | | | SERVICES, CORE | PARK [...] | | | LABORATORY | | | CHINESE | | | SERVICES, | | | [...] | + + + + + | [facility] | [address] | [place] [address] | | | SERVICES, CORE | JEAN [...] | | + +---------+ + + | [facility] DEPARTMENT OF | | | | | [...] | + + + + + | [facility] | [address] | [place] [address] | | | SERVICES, NINO | JEAN [...] | | | LABORATORY | | | CHINESE | | | SERVICES, | | | [...] | + + + + + | [facility] | [address] | [place] [address] | | | SERVICES, CORE | [address] | | | + + + + + INTRAOPERATIVE NEURO MONITORING (05/13/2015) + + + | Narrative | Performed At | + + + | Patient Name: Matt Fagan Date of : 1990 | | | Date of Test: 05/13/2015 Place of | | | Service: IP Intra Op (36) [id number] - [id number] INTRAOPERATIVE NEURO | | | MONITORING History: [...] min(s), with modifier GY | | | 67[address] - Short Latency EP's Upper AND Lower extremities [address] - | | | Central Motor EP's [...] A IDH1 & IDH2 MUTATION | | [facility] | | | MUTATION | ANALYSISSpecimen Type: [...] | | | | | | References1. [place]uraawa | | | | | | S, Francoise T, Kleihues | | | | | | P, Ohgaki H. IDH1 | | | | | | mutations asmolecular | | | | | | signature and predictive | | | | | | factor of secondary | | | | | | glioblastomas. | | | | | | ClinCancer Res. 2008 | | | | | | 1;1519):0124-17. | | | | | | Edison Veloz et al. IDH1 and | | | | | | IDH2 mutations in | | | | | | gliomas. N Engl J Med. | | | | | | 2008Feb | | | | | | 19360(8):133-991.3. | | | | | | Lewis [...] 2008 | | | | | | (12):8521-254. | | | | | | Rogelio BATRES et al. IDH1 | | | | | | mutations in low-grade | | | | | | astrocytomas | | | | | | predictsurvival but not | | | | | | response to | | | | | | temozolomide. Neurology. | | | | | | 2008 | | | | | | 73(21):1792-5 | | | | | | (Analyte [...] | | | | | determined by [facility] | | | | | | [facility] | | | | | | Laboratories; CLIA # | | | | | | [id number]. It has not | | | | [...] Lopez | | | | | | MattPathologistElectroni | | | | | | thomas [...] + + + + | [facility] | [address] | [place] [address] | | | DIAGNOSTIC | [address] [...] | Tissue Slides - FISH | | [facility] | | | REPORT | Only THIS [...] (7q34)break-apart/ | | | | | | [id number] probe set. 50 | | | | [...] | | | | | | Probe(s): [place] | | | | | | Genomics BRAF | | | | | | break-apart (7q34) / | | | | | | [id number] (SA) (7q34) | | | | | | This test was | | | | | | developed and its | | | | | | performance determined | | | | | | by the [facility] | | | [facility] [...] clinical | | | | | | philanthropy officer.Amended to | | | | | | [...] | + + + + + | [facility] | [address] | [place] [address] | | | DIAGNOSTIC | [address] [...] | | | | | HRM or [place] 20% | | | | | | (HRM); 1% (Kvng) | | | | | | >99%HRM: high resolution | | | | | | melting curve | | | | | | analysisSanger: | | | | | | Bi-directional Kvng | | | | | | sequencing with | | | | | | PHOTOGRAPHIC LITHOGRAPHER-clamp for | | | | | | wild-typeallele to | | | | | | increase sensitivity | | | | | | References:1. | | | | | | Francis Castro W. | | | | | | Molecular predictors of | | | | | | outcome in low-grade | | | | | | glioma.Curr Opin Neurol. | | | | | | 2011;25(6):783-47. | | | | | | doi: | | | | | | 10.1097/WCO.[id number] | | | | | | 0217.2. Jessica CM, | | | | | | Cheo SR, Shelton | | | | | | FJ, Jena JS, Mc Ludmila BE, | | | | | | Jacquie AR,Dl GUS, | | | | | | Chuckie STORE PROTECTION SPECIALIST, Warren C. | | | | | | BRAF alterations are | | | | | | frequent incerebellar | | | | | | low-grade astrocytomas | | | | | | with diffuse growth | | | | | | pattern. JNeuropathol | | | | | | Exp Neurol. 2011 | | | | | | Jan;71(7):631-9.3. | | | | | | Dorsi E, Cricket R, | | | | [...] | | | | | | of [id number] kinase and | | | | | | MPKM9Dlghma deficiency | | | | | | in pediatric malignant | | | | | | astrocytoma as a basis | | | | | | for rationaltherapy. | | | | | | Proc Natl Acad Sci U S | | | | | | A. 2011 May | | | | | | ;109(22):7805-87. | | | | | | Dyson-Santagata D, Ulloa Q, | | | | | | Vernovpetey K, Vena N, | | | | | | Catarino Erwin | | | | | | ,Shalonda TT, Zach | | | | | | KL, Iakirstie AJ, Zach | | | | | | AH, Jennifer DN, Santagata | | | | | | S. [id number] mutations | | | | | | are common in | | | | | | pleomorphic | | | | | | xanthoastrocytoma: | | | | | | diagnostic | | | | | | andtherapeutic | | | | | | implications. PLoS One. | | | | | | 2010 Mar | | | | | | 29;6(3):r33686.5. | | | | | | April G, Zora D, | | | | | | Solorzano J, Demarcus W, | | | | | | Omran H, Emir-Katya | | | | | | C,Chantell K, [place] | | | | | | P, Ritesh C, | | | | | | Sari M, Jennifer DN, | | | | [...] | | | | M, Brose MS, Jeremias C, | | | | | | [...] 2009 | | | | | | Jan;12(7):154-30.7. | | | | | | Chance Nieves, Vani Z, | | | | | | and Lewis Mai. How | | | | | | molecular testing can | | | | | | help(and hurt) in the | | | | | | workup of gliomas. Alin Fisher | | | | | | Clin Pathol. | | | | | | ;139(3):275-34. | | | | | | (Analyte [...] | | | | | determined by [facility] | | | | | | [facility] | | | | | [facility]; [place] # | | | | | | [id number]. It has not | | | | [...] + + + + | [facility] | [address] | [place] [address] | | | DIAGNOSTIC | [address] [...] of | | | | | | [facility] | | | | | | [place]. Please | | | | | | [...] into | | | | | | SUPERVISOR HOT DIP TINNING tissue. Tumor cells | | | | [...] [place], | | | | | | M.DYaz, | | | | | | Ph.D./NeuropathologistT: [...] block | | | | | | H0Efnezubkjkezwiryeevt | | | | | | stains: see IHC | | | | | | tableNo Electron | | | | | | microscopy | | | | | | performedMolecular | | | | | | genetic studies | | | | | | performedOther Molecular | | | | | | Studies: PCR for BRAF | | | | | | [id number] for BRAF | | | | | [...] | | | | | | Block V2Vcxpnebuxh: | | | | | | Tumor cells | | | | | | Marker Result | | | | | | CommentGlial | | | | | | Fibrillary Acidic | | | | | | Protein | | | | | | PositiveVimentin | | | | | | PositiveOlig 2 | | | | | | LbartvhsPK65 % | | | | | | Positive less than | | | | | | 5%PhosphoHistone 3, | | | | | | mitotic marker | | | | | | NegativeEpithelial | | | | | | Membrane Antigen | | | | | | NegativeATRX(SUPERVISOR HOT DIP TINNING and | | | | | | [...] PositiveChromogranin | | | | | | CzplfjcdIX45 (HPCA-1) | | | | | | [...] | | | | | | Matt Black/Yu | | | | | | l [...] | | | | | | Js Woltjer M.D., | | | | | | Cristy.Kaleb | | | | | | tasneem Seay 06/19/2015 | | | | | | [...] | + + + + + | [facility] | [address] | [place] [address] | | | PATHOLOGY | [address] [...] LABORATORY | [address] | [place] [address] | | | SERVICES, | [address] [...] LABORATORY | [address] | [place] [address] | | | SERVICES, | [address] [...] | + + + + + | [facility] | [address] | [place] [address] | | | HORACIO, NINO | JEAN [...] | + + + + + | [facility] | [address] | [place] [address] | | | SERVICES, CORE | JEAN [...] | | | LABORATORY | | | CHINESE | | | SERVICES, | | | [...] + + | [facility] | [address] [facility] | [place] [address] | | | SERVICES, CORE | PARK [...] LABORATORY | [address] | [place] [address] | | | SERVICES, CORE | PARK [...] | + + + + + | [facility] | [address] | [place] [address] | | | SERVICES, NINO | JEAN [...] | acetaminophen (TYLENOL) tablet | Given | 05/16/20 | 650 mg | | | | 325-650 mg 325-650 mg, oral, | | 15 7:57 | | | | | EVERY 6 HOURS NEEDED, Starting | | AM PST | | | | | 05/12/15 at 1820, Until Sun | | | | | | | 05/16/15 at 0945, pain or fever | | | | | | | greater than 38.5 degrees C | | | | | | + +--------+ +--------+------+------+ +-------+ +--------+---+---+ | Given | 05/15/20 | 650 mg | | | | | 15 4:16 | | | | | | PM PST | | | | +-------+ +--------+---+---+ | Given | 05/15/20 | 650 mg | | | | | 15 9:03 | | | | | | AM PST | | | | +-------+ +--------+---+---+ +---+---+ | | | +---+---+ + +-------+ +--------+---+---+ | acetaminophen (TYLENOL) tablet | Given | 05/20/20 | 650 mg | | | | 650 mg 650 mg, oral, EVERY 6 | | 15 9:28 | | | | | HOURS, First dose (after last | | AM PST | | | | | modification) on 05/16/15 at | | | | | | | 1500, Until Discontinued | | | | | | + +-------+ +--------+---+---+ +-------+ +--------+---+---+ | Given | 05/20/20 | 650 mg | | | | | 15 3:40 | | | | | | AM PST | | | | +-------+ +--------+---+---+ | Given | 05/19/20 | 650 mg | | | | | 15 10:28 | | | | | | PM PST | | | | +-------+ +--------+---+---+ + +---+ | | | + +---+ | acetaminophen (TYLENOL) tablet | | | 1 dose, Starting Sun05/13/15 at | | | 8, Until Sun05/13/15 at 9 | | + +---+ | | | + +---+ + +-------+ +------+---+---+ | bisacodyl EC (DULCOLAX) tablet | Given | 05/20/20 | 5 mg | | | | 5 mg 5 mg, oral, DAILY, First | | 15 9:28 | | | | | dose on 05/17/15 at 1145, | | AM PST | | | | | Until Discontinued | | | | | | + +-------+ +------+---+---+ +-------+ +------+---+---+ | Given | 05/19/20 | 5 mg | | | | | 15 9:28 | | | | | | AM PST | | | | +-------+ +------+---+---+ | Given | 05/18/20 | 5 mg | | | | | 15 10:15 | | | | | | AM PST | | | | +-------+ +------+---+---+ +---+---+ | | | +---+---+ + +---------+ +-----+---+---+ | calcium gluconate IV 1 gram in | New Bag | 05/14/20 | 1 g | | | | NS (PREMADE) 1 g, intravenous, | | 15 4:09 | | | | | ONCE, 1 dose, 05/14/15 at 0430 | | AM PST | | | | + +---------+ +-----+---+---+ +---+---+ | | | +---+---+ + +---------+ +-----+---+---+ | ceFAZolin (ANCEF) 2 g in NaCl | New Bag | 05/14/20 | 2 g | | | | 0.9 % IV 2 g, intravenous, EVERY | | 15 4:14 | | | | | 8 HOURS, 3 doses, First dose on | | PM PST | | | | | Sun05/14/15 at 0000, Last dose on | | | | | | | Sun05/14/15 at 1600 | | | | | | + +---------+ +-----+---+---+ +---------+ +-----+---+---+ | New Bag | 05/14/20 | 2 g | | | | | 15 7:55 | | | | | | AM PST | | | | +---------+ +-----+---+---+ | New Bag | 05/14/20 | 2 g | | | | | 15 1:58 | | | | | | AM PST | | | | +---------+ +-----+---+---+ +---+---+ | | | +---+---+ + +-------+ +------+---+---+ | dexamethasone (DECADRON) tablet | Given | 05/14/20 | 4 mg | | | | 4 mg 4 mg, oral, EVERY 6 HOURS, | | 15 4:09 | | | | | First dose on Sun05/12/15 at | | AM PST | | | | | 2200, Until Discontinued | | | | | | + +-------+ +------+---+---+ +-------+ +------+---+---+ | Given | 05/13/20 | 4 mg | | | | | 15 10:00 | | | | | | PM PST | | | | +-------+ +------+---+---+ | Given | 05/13/20 | 4 mg | | | | | 15 10:25 | | | | | | AM PST | | | | +-------+ +------+---+---+ +---+---+ | | | +---+---+ + +-------+ +------+---+---+ | dexamethasone (DECADRON) tablet | Given | 05/15/20 | 4 mg | | | | 4 mg 4 mg, oral, EVERY 12 | | 15 6:16 | | | | | HOURS, 2 doses, First dose (after | | AM PST | | | | | last modification) on Fri | | | | | | | 05/14/15 at 1800, Last dose on Sat | | | | | | | 05/15/15 at 0600 | | | | | | + +-------+ +------+---+---+ +-------+ +------+---+---+ | Given | 05/14/20 | 4 mg | | | | | 15 5:24 | | | | | | PM PST | | | | +-------+ +------+---+---+ +---+---+ | | | +---+---+ + +-------+ +------+---+---+ | diazepam (VALIUM) tablet 5 mg | Given | 05/19/20 | 5 mg | | | | 5 mg, oral, THREE TIMES DAILY | | 15 10:28 | | | | | NEEDED, Starting 05/16/15 at | | PM PST | | | | | 0944, Until [facility] 05/20/15 at 1737, | | | | | | | muscle spasms | | | | | | + +-------+ +------+---+---+ +-------+ +------+---+---+ | Given | 05/19/20 | 5 mg | | | | | 15 12:54 | | | | | | PM PST | | | | +-------+ +------+---+---+ | Given | 05/18/20 | 5 mg | | | | | 15 11:25 | | | | | | PM PST | | | | +-------+ +------+---+---+ +---+---+ | | | +---+---+ + +-------+ +-------+---+---+ | diphenhydrAMINE (BENADRYL) | Given | 05/20/20 | 25 mg | | | | capsule 25 mg 25 mg, oral, EVERY | | 15 10:08 | | | | | 6 HOURS NEEDED, Starting [facility] | | AM PST | | | | | 05/20/15 at 0646, Until Miriam | | | | | | | 05/20/15 at 1737, itching | | | | | | + +-------+ +-------+---+---+ +---+---+ | | | +---+---+ + +-------+ +-------+---+---+ | diphenhydrAMINE (BENADRYL) | Given | 05/16/20 | 50 mg | | | | capsule 25-50 mg 25-50 mg, oral, | | 15 3:16 | | | | | EVERY 6 HOURS NEEDED, | | AM PST | | | | | Starting 05/14/15 at 2148, | | | | | | | Until 05/16/15 at 0941, rash, | | | | | | | itching, nausea/vomiting, | | | | | | | allergic reaction | | | | | | + +-------+ +-------+---+---+ +-------+ +-------+---+---+ | Given | 05/15/20 | 25 mg | | | | | 15 6:43 | | | | | | PM PST | | | | +-------+ +-------+---+---+ | Given | 05/15/20 | 25 mg | | | | | 15 12:51 | | | | | | PM PST | | | | +-------+ +-------+---+---+ +---+---+ | | | +---+---+ + +-------+ +-------+---+---+ | enoxaparin (LOVENOX) injection | Given | 05/19/20 | 40 mg | | | | 40 mg 40 mg, subcutaneous, EVERY | | 15 8:21 | | | | | EVENING, First dose on Fri | | PM PST | | | | | 05/14/15 at 2100, Until | | | | | | | Discontinued | | | | | | + +-------+ +-------+---+---+ +-------+ +-------+---+---+ | Given | 05/18/20 | 40 mg | | | | | 15 8:03 | | | | | | PM PST | | | | +-------+ +-------+---+---+ | Given | 05/17/20 | 40 mg | | | | | 15 9:37 | | | | | | PM PST | | | | +-------+ +-------+---+---+ +---+---+ | | | +---+---+ + +---------+ +--------+---+---+ | fentaNYL citrate (PF) | New Bag | 05/13/20 | 25 mcg | | | | (SUBLIMAZE) injection 25 mcg 25 | | 15 9:05 | | | | | mcg, intravenous, POSTPROCEDURE | | PM PST | | | | | PRN, 8 doses, Starting Miriam | | | | | | | 05/13/15 at 1618, Until Miriam | | | | | | | 05/13/15 at 2109, severe pain | | | | | | + +---------+ +--------+---+---+ +---------+ +--------+---+---+ | New Bag | 05/13/20 | 25 mcg | | | | | 15 9:00 | | | | | | PM PST | | | | +---------+ +--------+---+---+ | New Bag | 05/13/20 | 25 mcg | | | | | 15 8:51 | | | | | | PM PST | | | | +---------+ +--------+---+---+ +---+---+ | | | +---+---+ + +---------+ +---------+---+---+ | fentaNYL citrate (PF) | New Bag | 05/13/20 | 100 mcg | | | | (SUBLIMAZE) injection 50-100 mcg | | 15 11:30 | | | | | 50-100 mcg, intravenous, | | PM PST | | | | | PROCEDURE ONCE, 1 dose, Miriam | | | | | | | 05/13/15 at 2230 | | | | | | + +---------+ +---------+---+---+ + +---+ | | | + +---+ | fentaNYL citrate (PF) | | | (SUBLIMAZE) injection 1 dose, | | | Starting [facility] 05/13/15 at 1925, | | | Until Miriam 05/13/15 at 2008 | | + +---+ | | | + +---+ + +-------+ +--------+---+---+ | gabapentin (NEURONTIN) capsule | Given | 05/20/20 | 300 mg | | | | 300 mg 300 mg, oral, THREE TIMES | | 15 9:29 | | | | | DAILY, First dose on [facility] 05/13/15 | | AM PST | | | | | at 2245, Until Discontinued | | | | | | + +-------+ +--------+---+---+ +-------+ +--------+---+---+ | Given | 05/19/20 | 300 mg | | | | | 15 10:28 | | | | | | PM PST | | | | +-------+ +--------+---+---+ | Given | 05/19/20 | 300 mg | | | | | 15 4:11 | | | | | | PM PST | | | | +-------+ +--------+---+---+ +---+---+ | | | +---+---+ + +---------+ +-------+---+ + | gadodiamide (OMNISCAN) IV 17 mL | New Bag | 05/13/20 | 17 mL | | Left Arm | | 17 mL, intravenous, PROCEDURE | | 15 11:44 | | | | | ONCE, 1 dose, [facility] 05/13/15 at 2345 | | PM PST | | | | + +---------+ +-------+---+ + +---+---+ | | | +---+---+ + +---------+ +------+---+---+ | HYDROmorphone (DILAUDID) | New Bag | 05/18/20 | 1 mg | | | | injection 0.5-1.5 mg 0.5-1.5 mg, | | 15 10:22 | | | | | intravenous, EVERY 2 HOURS | | PM PST | | | | | NEEDED, Starting 05/12/15 at | | | | | | | 1820, Until 05/19/15 at 1510, | | | | | | | breakthrough pain | | | | | | + +---------+ +------+---+---+ +---------+ +------+---+---+ | New Bag | 05/18/20 | 1 mg | | | | | 15 11:11 | | | | | | AM PST | | | | +---------+ +------+---+---+ | New Bag | 05/17/20 | 1 mg | | | | | 15 9:37 | | | | | | PM PST | | | | +---------+ +------+---+---+ +---+---+ | | | +---+---+ + +-------+ +------+---+---+ | HYDROmorphone (DILAUDID) tablet | Given | 05/16/20 | 6 mg | | | | 2-6 mg 2-6 mg, oral, EVERY 3 | | 15 4:50 | | | | | HOURS NEEDED, Starting Sun | | PM PST | | | | | 05/16/15 at 0941, Until Sun | | | | | | | 05/16/15 at 1946, severe pain | | | | | | + +-------+ +------+---+---+ +-------+ +------+---+---+ | Given | 05/16/20 | 6 mg | | | | | 15 1:56 | | | | | | PM PST | | | | +-------+ +------+---+---+ | Given | 05/16/20 | 6 mg | | | | | 15 10:56 | | | | | | AM PST | | | | +-------+ +------+---+---+ +---+---+ | | | +---+---+ + +-------+ +------+---+---+ | HYDROmorphone (DILAUDID) tablet | Given | 05/20/20 | 8 mg | | | | 2-8 mg 2-8 mg, oral, EVERY 3 | | 15 10:03 | | | | | HOURS NEEDED, Starting Sun | | AM PST | | | | | 05/16/15 at 1946, Until Miriam | | | | | | | 05/20/15 at 1737, severe pain | | | | | | + +-------+ +------+---+---+ +-------+ +------+---+---+ | Given | 05/20/20 | 8 mg | | | | | 15 7:08 | | | | | | AM PST | | | | +-------+ +------+---+---+ | Given | 05/20/20 | 6 mg | | | | | 15 3:40 | | | | | | AM PST | | | | +-------+ +------+---+---+ +---+---+ | | | +---+---+ + +-------+ +-------+---+---+ | hydrOXYzine pamoate (VISTARIL) | Given | 05/20/20 | 25 mg | | | | capsule 25 mg 25 mg, oral, EVERY | | 15 12:07 | | | | | 6 HOURS NEEDED, Starting Sun | | AM PST | | | | | 05/16/15 at 0941, Until Miriam | | | | | | | 05/20/15 at 1737, itching | | | | | | + +-------+ +-------+---+---+ +-------+ +-------+---+---+ | Given | 05/19/20 | 25 mg | | | | | 15 6:05 | | | | | | AM PST | | | | +-------+ +-------+---+---+ | Given | 05/18/20 | 25 mg | | | | | 15 11:25 | | | | | | PM PST | | | | +-------+ +-------+---+---+ +---+---+ | | | +---+---+ + +-------+ +--------+---+---+ | magnesium citrate liquid 296 mL | Given | 05/19/20 | 296 mL | | | | 296 mL, oral, DAILY NEEDED, | | 15 12:54 | | | | | Starting 05/19/15 at 0704, | | PM PST | | | | | Until [facility] 05/20/15 at 1737, | | | | | | | constipation | | | | | | + +-------+ +--------+---+---+ +---+---+ | | | +---+---+ + +-------+ +--------+---+---+ | magnesium oxide (MAG-OX) tablet | Given | 05/16/20 | 800 mg | | | | 800 mg 800 mg, oral, ONCE, 1 | | 15 8:50 | | | | | dose, [place] 05/16/15 at 1745 | | PM PST | | | | + +-------+ +--------+---+---+ +---+---+ | | | +---+---+ + +---------+ +-----+---+---+ | magnesium sulfate in water IV | New Bag | 05/14/20 | 4 g | | | | (RTU) 4 g 4 g, intravenous, | | 15 4:49 | | | | | NEEDED, Starting 05/14/15 at | | AM PST | | | | | 0359, Until 05/15/15 at 1448, | | | | | | | For Mg <1.7 | | | | | | + +---------+ +-----+---+---+ +---+---+ | | | +---+---+ + +---------+ +---------+---+---+ | meperidine (DEMEROL) injection | New Bag | 05/13/20 | 12.5 mg | | | | 25 mg 25 mg, intravenous, | | 15 7:55 | | | | | POSTPROCEDURE PRN, 1 dose, | | PM PST | | | | | Starting Miriam 05/13/15 at 1618, | | | | | | | Until Miriam 05/13/15 at 1955, | | | | | | | shivering | | | | | | + +---------+ +---------+---+---+ + +---+ | | | + +---+ | meperidine (DEMEROL) injection | | | 1 dose, Starting [facility] 05/13/15 at | | | 1950, Until [facility] 05/13/15 at 1955 | | + +---+ | | | + +---+ + +-------+ +------+---+---+ | midodrine (PROAMITINE) tablet 5 | Given | 05/14/20 | 5 mg | | | | mg 5 mg, oral, ONCE, 1 dose, | | 15 2:14 | | | | | 05/14/15 at 0230 | | AM PST | | | | + +-------+ +------+---+---+ +---+---+ | | | +---+---+ + +---------+ +--------+-------+---+ | NaCl 0.9 % solution 500 mL, | New Bag | 05/14/20 | 500 mL | 500 | | | intravenous, ONCE, 1 dose, Fri | | 15 1:06 | | mL/hr | | | 05/14/15 at 0130 | | AM PST | | | | + +---------+ +--------+-------+---+ +---+---+ | | | +---+---+ + +---------+ +---+-------+---+ | NaCl 0.9 % solution 500 mL, | New Bag | 05/14/20 | | 999 | | | intravenous, ONCE, 1 dose, Fri | | 15 1:58 | | mL/hr | | | 05/14/15 at 0230 | | AM PST | | | | + +---------+ +---+-------+---+ +---+---+ | | | +---+---+ + +---------+ +--------+-------+---+ | NaCl 0.9 % solution 500 mL, | New Bag | 05/14/20 | 500 mL | 500 | | | intravenous, ONCE, 1 dose, Fri | | 15 3:47 | | mL/hr | | | 05/14/15 at 0330 | | AM PST | | | | + +---------+ +--------+-------+---+ +---+---+ | | | +---+---+ + +---------+ + +---+---+ | NaCl 0.9 % solution 1,000 mL, | New Bag | 05/14/20 | 1,000 mL | | | | intravenous, ONCE, 1 dose, Fri | | 15 1:00 | | | | | 05/14/15 at 1315 | | PM PST | | | | + +---------+ + +---+---+ +---+---+ | | | +---+---+ + +---------+ +--------+---+---+ | NaCl 0.9 % solution 500 mL, | New Bag | 05/16/20 | 500 mL | | | | intravenous, ONCE, 1 dose, Sun | | 15 7:06 | | | | | 05/16/15 at 1745 | | PM PST | | | | + +---------+ +--------+---+---+ +---+---+ | | | +---+---+ + +---------+ +--------+---+---+ | NaCl 0.9 % solution 500 mL, | New Bag | 05/17/20 | 500 mL | | | | intravenous, ONCE, 1 dose, Mon | | 15 11:44 | | | | | 05/17/15 at 0930 | | AM PST | | | | + +---------+ +--------+---+---+ +---+---+ | | | +---+---+ + +-------+ +-------+---+---+ | oxyCODONE (immediate release) | Given | 05/16/20 | 15 mg | | | | (ROXICODONE) tablet 5-15 mg 5-15 | | 15 7:57 | | | | | mg, oral, EVERY 3 HOURS | | AM PST | | | | | NEEDED, Starting 05/12/15 at | | | | | | | 1820, Until 05/16/15 at 0941, | | | | | | | severe pain | | | | | | + +-------+ +-------+---+---+ +-------+ +-------+---+---+ | Given | 05/16/20 | 15 mg | | | | | 15 4:50 | | | | | | AM PST | | | | +-------+ +-------+---+---+ | Given | 05/16/20 | 15 mg | | | | | 15 1:00 | | | | | | AM PST | | | | +-------+ +-------+---+---+ + +---+ | | | + +---+ | oxyCODONE (immediate release) | | | (ROXICODONE) tablet 1 dose, | | | Starting [facility] 05/13/15 at 2038, | | | Until [facility] 05/13/15 at 2040 | | + +---+ | | | + +---+ + +-------+ +--------+---+---+ | potassium chloride (KAOCHLOR) | Given | 05/14/20 | 40 mEq | | | | liquid 10-40 mEq 10-40 mEq, | | 15 4:09 | | | | | oral, NEEDED, Starting Fri | | AM PST | | | | | 05/14/15 at 0352, Until Sat | | | | | | | 05/15/15 at 1448, hypokalemia per | | | | | | | protocol | | | | | | + +-------+ +--------+---+---+ +---+---+ | | | +---+---+ + +-------+ + +---+---+ | senna-docusate (SENOKOT S) | Given | 05/20/20 | 1 tablet | | | | 8.6-50 mg 1 tablet 1 tablet, | | 15 9:29 | | | | | oral, TWICE DAILY, First dose on | | AM PST | | | | | 05/12/15 at 2100, Until | | | | | | | Discontinued | | | | | | + +-------+ + +---+---+ +-------+ + +---+---+ | Given | 05/19/20 | 1 tablet | | | | | 15 8:21 | | | | | | PM PST | | | | +-------+ + +---+---+ | Given | 05/19/20 | 1 tablet | | | | | 15 9:28 | | | | | | AM PST | | | | +-------+ + +---+---+ +---+---+ | | | +---+---+ + +-------+ +------+---+---+ | tiZANidine (ZANAFLEX) tablet 2 | Given | 05/16/20 | 2 mg | | | | mg 2 mg, oral, THREE TIMES | | 15 7:57 | | | | | DAILY, First dose on [facility] 05/13/15 | | AM PST | | | | | at 2200, Until Discontinued | | | | | | + +-------+ +------+---+---+ +-------+ +------+---+---+ | Given | 05/15/20 | 2 mg | | | | | 15 9:56 | | | | | | PM PST | | | | +-------+ +------+---+---+ | Given | 05/15/20 | 2 mg | | | | | 15 4:16 | | | | | | PM PST | | | | +-------+ +------+---+---+ +---+---+ | | | +---+---+ + +-------+ +------+---+---+ | zolpidem (AMBIEN) tablet 5 mg | Given | 05/19/20 | 5 mg | | | | 5 mg, oral, AT BEDTIME NEEDED, | | 15 10:28 | | | | | Starting 05/19/15 at 1728, | | PM PST | | | | | Until Miriam 05/20/15 at 1737, | | | | | | | insomnia | | | | | | + +-------+ +------+---+---+ +---+---+ | | | +---+---+ documented in this encounter
--- OUTSIDE RECORDS SUMMARY | ~2019-11-28 | XMS | Encounter Summary ---
Demographics + + + | Address | [address] | | | [place] [address] | + + + | Home Phone | | + + + | Preferred Language | Unknown | + + + | Marital Status | Single | + + + | Yazidi Affiliation | NON | + + + [...] Team Providers + +------+ + | Care Senior Web Engineer Name | Role | Phone | [...] | +--------+ + + + + | 10/05/ | Telephone | SOCIAL WORK | Zara Noonan | Referral to social | | 2017 | | [facility] [address] | worker | | | | [address] | [place], | | | | | Mailcode: CH6A | [place] [address] | | | | | [place], [place] | | | | | | [address] | | | | | | [phone] | | | +--------+ + + + [...] | | | | | | [place] [facility] [place] | | | | | | [address] | | | | | | [phone] | | | | | | | | +--------+ + + + + | 12/10/ | Office | Neurological Surgery | April Beck MD | | | 2020 | Visit | | [address] | | | | | | [address] | | | | | | [place], [place] | | | | | | [address] | | | | | | [phone] | | | | | | | | +--------+ + + + + documented as of this encounter Procedures + +--------+ + + + | Procedure Name | Priori | Date/Time | Associated Diagnosis | Comments | | | ty | | | | + +--------+ + + + | CHLAM/GC APTIMA, | Routin | 11/13/2016 | | Results for this | | RNA, TMA | e | 2:53 PM | | procedure are in the | | | | PDT | | results section. | + +--------+ + + + | [facility] CYTOLOGY (PAP) | Routin | 11/13/2016 | | Results for this | | | e | 2:53 PM | | procedure are in the | | | | PDT | | results section. | + +--------+ + + + documented in this encounter Results [facility] CYTOLOGY (PAP) (11/13/2016 2:53 PM PDT) + + + + + + | Component | Value | Ref Range | Performed | Pathologist | | | | | At | Signature | + + + + + + | [facility] | Patient:ANAID, | | [facility] | | | [facility]TOLOGY | [facility] | | [facility] | | | | | | | | | | | | | | | | | | | | | | | | | | | | Pathology Reports | | | | | | Accession: | | | | | | [id number] | | | | | | | | | | | | Collected Date/Time: | | | | | | 11/13/2016 14:53 | | | | | | PDTPathologist: | | | | | | | | | | | | | | | | | | Received Date/Time: | | | | | | 11/13/2016 18:22 | | | | | | PDTOrdering Physician: | | | | | | Ricarda-Karma, | | | | | | Clare MD | | | | | | Hr Director | | | | | | Cytology Final Report - | | | | | | 11/16/2016 11:35 PDT - | | | | | | Auth (Verified)Clinical | | | | | | [facility] | | | | | | Pap Received: Z12.4LMP: | | | | | | 10/23/16 Cytologic | | | | | | DiagnosisNEGATIVE FOR | | | | | | INTRAEPITHELIAL LESION | | | | | | OR MALIGNANCY There is a | | | | | | predominance of | | | | | | coccobacilli, suggesting | | | | | | a shift in the vaginal | | | | | | denis. This could be | | | | | | indicative of bacterial | | | | | | vaginosis. In | | | | | | patients, clinical | | | | | | follow-up may be | | | | | | needed.Screened by: | | | | | | EL Verified by: | | | | | | KRZYSZTOF Lynn(ASCP), | | | | | | IAC | | | | | | (Electronically | | | | | | signed by) | | | | | | 11/16/2016 | | | | | | 11:35 PDT | | | | | | Interpretation of | | | | | | Adequacy Satisfactory | | | | | | for Evaluation. | | | | | | Transformation Zone | | | | | | Present. Specimen | | | | | | SourceCervical | | | | + + + + + + + + | Specimen | + + | | + + + + + + + | Performing | Address | City/State/Zipcode | Phone Number | | Organization | | | | + + + + + | [facility] | [address] | [place], [place] | | | LAB | | [id number] | | + + + + + | [facility] | [address] | [place], [place] | | | LAB | | [id number] | | + + + + + CHLAM/GC APTIMA, RNA, TMA (11/13/2016 2:53 PM PDT) + + + + + [...] | | test was performed | | [facility] | | | | using the APTIMA COMBO2 | | | | | | Assay([employer] | | | | | | [...] | | | | | | Mnemonic: [id number] | | | | | | DIAGNOSTICS | | | | | | [id number] | | | | | | [address] [facility], | | | | | | [place] [id number] | | | | | | MD AARON | | | | + + + + + + + + | Specimen | + + | | + + + + + | Narrative | Performed At | + + + | Location: [facility] | | | | [facility] | | | [facility] | + + + + + + + + | Performing | Address | City/State/Zipcode | Phone Number | | Organization | | | | + + + + + | [facility] | [address] | [place], [place] | | | LAB | | [id number] | | + + + + + | [facility] | [address] | [place], [place] | | | LAB | | [id number] | | + + + + + documented in this encounter Visit Diagnoses Not on filedocumented in this encounter"
--- OUTSIDE RECORDS SUMMARY | ~2019-11-28 | XMS | Encounter Summary ---
Demographics + + + | Address | [address] | | | [place] [address] | + + + | Home Phone | | + + + | Preferred Language | Unknown | + + + | Marital Status | Single | + + + | Voodoo Affiliation | NON | + + + [...] Team Providers + +------+ + | Care Event Operations Manager Name | Role | Phone | + +------+ + | Damir Sy MD | PCP | | + +------+ + Encounter Details +--------+ + + + + | Date | Type | Department | Care Team | Description | +--------+ + + + + | 04/14/ | ED Progress | [facility] | Moshe [facility]ala | ED Progress Note | | 2016 | | [address] [place] | MD Vincenzo Shettyality | | | | Note-Transc | [place], [place] | [facility] | | | | ribed | [id number] | ER Med [address] | | | | | | [place], [place] | | | | | | [address] | | | | | | | [...] | | | | | | [place], [place] | | | | | | [address] | | | | | | [phone] | | | | | | | | +--------+ + + + + | 12/10/ | Office | Neurological Surgery | April Beck MD | | | 2019 | Visit | | [address] | | | | | | [address] | | | | | | [facility] [place] | | | | | | [address] | | | | | | [phone] | | | | | | | | +--------+ + + + + documented as of this encounter Visit Diagnoses Not on filedocumented in this encounter"
--- OUTSIDE RECORDS SUMMARY | ~2019-11-28 | XMS | Encounter Summary ---
Demographics + + + | Address | [address] | | | [place] [address] | + + + | Home Phone [...] Author + + + | Author | [facility] | + + + | Organization | [facility] | + + + | [...] Providers + +------+ + | Care Medical And Scientific Illustrator Name | Role | Phone | + [...] | +--------+ + + + + | 05/13/ | Anesthesia | 6A Intra Op 3181 | Stephie Anders, | | | 2015 | Event | [address] | [address] | | | | | [facility] | [address] | | | | | Hospital Admitting | [place], [place] | | | | | Desk Located on the | [address] | | | | | 9th floor | [phone] | | | | | [place], [place] | | | | | | [address] | Raegan Kaufman, | | | | | | ,PhD [address] | | | | | | [address] | | | | | | [place], [place] | | | | | | [address] | | | | | | [phone] | | | | | | | | +--------+ + + + + Anesthesia Record + + + + + | Procedure Name | Responsible | Anesthesia Start | Anesthesia Stop Time | | | Anesthesiologist | Time | | + + + + + | THORACIC LAMINECTOMY | Stephie Anders MD | 05/13/151501 | 05/13/151951 | | AND (N/A Back) | | | | + + + + + +----+---+ + + | Da | T | Event | Comment | | te | i | | | | | m | | | | | e | | | +----+---+ + + | 11 | 1 | Eq Check | Anesthesia machine checked Equipment verified | | /0 | 4 | | | | 5/ | 3 | | | | 20 | 0 | | | | 15 | | | | +----+---+ + + | | 1 | Pt. Check | Prior to anesthesia start, pt. Identified, examined, chart | | | 4 | | reviewed, PARQ held, anesthetic plan made or approved by | | | 5 | | attending anesthesiologist. NPO status confirmed as appropriate | | | 9 | | for procedure Preoperative evaluation: unchanged | +----+---+ + + | | 1 | An Start | | | | 5 | | | | | 0 | | | | | 2 | | | +----+---+ + + | | 1 | An Start | | | | 5 | Data | | | | 0 | | | | | 8 | | | +----+---+ + + | | 1 | Vitals | Monitors applied Vital signs checked Patient ready for anesthesia | | | 5 | Checked | | | | 1 | | | | | 0 | | | +----+---+ + + | | 1 | Std. Airway | | | | 5 | Mgt. | | | | 2 | | | | | 3 | | | +----+---+ + + | | 1 | Art Line | | | | 5 | | | | | 3 | | | | | 4 | | | +----+---+ + + | | 1 | Ready | | | | 5 | | | | | 3 | | | | | 7 | | | +----+---+ + + | | 1 | Abx | | | | 5 | Administere | | | | 5 | d | | | | 4 | | | +----+---+ + + | | 1 | Incision | | | | 6 | | | | | 1 | | | | | 6 | | | +----+---+ + + | | 1 | Medication | Fentanyl 250 Hydromorphone 2 | | | 6 | Handoff | | | | 3 | | | | | 7 | | | +----+---+ + + | | 1 | Quick Note | A-line positional. | | | 8 | | | | | 3 | | | | | 2 | | | +----+---+ + + | | 1 | Quick Note | Decreased right sided MEPs noted. Per neurosurgery request, | | | 8 | | phenylephrine administered to increase MAP into 90s | | | 5 | | | | | 3 | | | +----+---+ + + | | 1 | Surgery end | | | | 9 | | | | | 3 | | | | | 2 | | | +----+---+ + + | | 1 | An Extubate | Neuromuscular function Intact. Pharynx suctioned. Patient obeys | | | 9 | | commands. Adequate pulmonary mechanics. | | | 4 | | | | | 3 | | | +----+---+ + + | | 1 | an stop | | | | 9 | data | | | | 4 | | | | | 5 | | | +----+---+ + + | | 1 | Anesthesia | | | | 9 | End | | | | 5 | | | | | 2 | | | +----+---+ + + +------+ | Meds | +------+ + + + | Name | Total | + + + | midazolam | 2 mg | + + + | ceFAZolin (ANCEF) injection 1 g | 2 g | + + + | propofol INF | 991,580 mcg | + + + | propofol | 200 mg | + + + | lidocaine 2% | 100 mg | + + + | rocuronium | 30 mg | + + + | fentaNYL | 500 mcg | + + + | dexamethasone | 10 mg | + + + | HYDROmorphone | 0.4 mg | + + + | PHENYLEPHrine | 100 mcg | + + + | ondansetron | 4 mg | + + + | NS | 1,000 mL | + + + | NaCl 0.9 % solution | 356.67 mL | + + + | LR | 700 mL | + + + + + | Name | + + | O2 FR Avance (Total Liters) | + + | Air FR Avance (l/min) | + + | Insp Sevo | + + | Et Sevo | + + + + | No blood administrations on file. | + + +--------+ + + + | Type | Details | Placement | Removal | +--------+ + + + | Periph | 05/12/15; 1931; IVT; Left; | 05/12/15 193 by | 05/20/151736 by | | eral | Antecubital; 22 g; Lidocaine; No; | Abby Sanches RN | Discontinued After | | IV | Positive; 05/20/15; 1737 | | Discharge | +--------+ + + + | Periph | 05/13/15; 1526; Right; Hand; 14 | 05/13/15 1526 by | 05/14/15 0745 by | | eral | g; 05/14/15; 0745; Site problems | Raegan Kaufman, | Genesis Antoine, | | IV | (painful with flush) | PhD CHARLIE | RN | +--------+ + + + | Urethr | 05/13/15; 1530; Quiana; 16 Fr.; 10 | 05/13/15 1530 by | 09/15/15 1307 by | | al | mL; 09/15/15; 1307 | Donal Patel RN | Wendi Choi RN | | Cathet | | | | | er | | | | +--------+ + + + | Arteri | 05/13/15; 1534; Left; Radial; | 05/13/15 1534 by | 05/14/15 0845 by | | al | 20g; 05/14/15; 0845; Per order | Raegan Kaufman, | Genesis Antoine, | | Line | | PhD CHARLIE | RN | +--------+ + + + | Incisi [...] | | | | | | [place], [place] | | | | | | [address] | | | | | | [phone] | | | | | | | | +--------+ + + + + | 12/10/ | Office | Neurological Surgery | April Beck MD | | | 2019 | Visit | | [address] | | | | | | [address] | | | | | | [place], [place] | | | | | | [address] | | | | | | [phone] | | | | | | | | +--------+ + + + + documented as of this encounter Visit Diagnoses Not on filedocumented in this encounter Administered Medications + +--------+ +------+------+------+ | Medication Order | MAR | Action | Dose | Rate | Site | | | Action | Date | | | | + +--------+ +------+------+------+ | ceFAZolin (ANCEF) injection 1 g | Given | 05/13/20 | 2 g | | | | 1 g, intravenous, PREPROCEDURE | | 15 3:54 | | | | | ONCE, 1 dose, Starting Wed | | PM PST | | | | | 05/12/15 at 1820, Until Miriam | | | | | | | 05/13/15 at 1554 | | | | | | + +--------+ +------+------+------+ +---+---+ | | | +---+---+ + +-------+ +-------+---+---+ | dexamethasone (DECADRON) | Given | 05/13/20 | 10 mg | | | | injection INTRAPROCEDURE PRN, | | 15 4:21 | | | | | Starting Miriam 05/13/15 at 1621, | | PM PST | | | | | Until Miriam 05/13/15 at 1945 | | | | | | + +-------+ +-------+---+---+ +---+---+ | | | +---+---+ + +-------+ +--------+---+---+ | fentaNYL citrate (PF) | Given | 05/13/20 | 50 mcg | | | | (SUBLIMAZE) injection | | 15 7:51 | | | | | INTRAPROCEDURE PRN, Starting Miriam | | PM PST | | | | | 05/13/15 at 1520, Until Miriam | | | | | | | 05/13/15 at 1945, sedation | | | | | | + +-------+ +--------+---+---+ +-------+ +--------+---+---+ | Given | 05/13/20 | 50 mcg | | | | | 15 7:01 | | | | | | PM PST | | | | +-------+ +--------+---+---+ | Given | 05/13/20 | 50 mcg | | | | | 15 5:43 | | | | | | PM PST | | | | +-------+ +--------+---+---+ +---+---+ | | | +---+---+ + +-------+ +--------+---+---+ | HYDROmorphone (DILAUDID) | Given | 05/13/20 | 0.4 mg | | | | injection INTRAPROCEDURE PRN, | | 15 6:27 | | | | | Starting [facility] 05/13/15 at 1827, | | PM PST | | | | | Until [facility] 05/13/15 at 1945, | | | | | | | sedation | | | | | | + +-------+ +--------+---+---+ +---+---+ | | | +---+---+ + + + +---+---+---+ | lactated ringers IV | given by | 05/13/20 | | | | | INTRAPROCEDURE CONTINUOUS PRN, | | 15 7:12 | | | | | Starting [facility] 05/13/15 at 1500, | anesthes | PM PST | | | | | Until [facility] 05/13/15 at 1945 | iology | | | | | + + + +---+---+---+ + + +---+---+---+ | given by anesthesiology | 05/13/20 | | | | | | 15 7:04 | | | | | | PM PST | | | | + + +---+---+---+ | given by anesthesiology | 05/13/20 | | | | | | 15 4:27 | | | | | | PM PST | | | | + + +---+---+---+ +---+---+ | | | +---+---+ + +-------+ +--------+---+---+ | lidocaine PF (XYLOCAINE MPF) 20 | Given | 05/13/20 | 100 mg | | | | mg/mL (2 %) injection | | 15 3:20 | | | | | INTRAPROCEDURE PRN, Starting Miriam | | PM PST | | | | | 05/13/15 at 1520, Until Miriam | | | | | | | 05/13/15 at 1945 | | | | | | + +-------+ +--------+---+---+ +---+---+ | | | +---+---+ + +-------+ +------+---+---+ | midazolam (VERSED) injection | Given | 05/13/20 | 2 mg | | | | INTRAPROCEDURE PRN, Starting Miriam | | 15 3:02 | | | | | 05/13/15 at 1502, Until Miriam | | PM PST | | | | | 05/13/15 at 1945, sedation | | | | | | + +-------+ +------+---+---+ +---+---+ | | | +---+---+ + +---------+ +---+-------+---+ | NaCl 0.9 % solution 75 mL/hr, | New Bag | 05/13/20 | | 100 | | | intravenous, PROCEDURE | | 15 3:45 | | mL/hr | | | CONTINUOUS, Starting 05/12/15 | | PM PST | | | | | at 1830, Until Miriam 05/13/15 at | | | | | | | 2109 | | | | | | + +---------+ +---+-------+---+ +---+---+ | | | +---+---+ + + + +---+---+---+ | NaCl 0.9 % solution | given by | 05/13/20 | | | | | INTRAPROCEDURE CONTINUOUS PRN, | | 15 5:23 | | | | | Starting Miriam 05/13/15 at 1552, | anesthes | PM PST | | | | | Until Miriam 05/13/15 at 1945 | iology | | | | | + + + +---+---+---+ + + +---+---+---+ | given by anesthesiology | 05/13/20 | | | | | | 15 4:45 | | | | | | PM PST | | | | + + +---+---+---+ | New Bag | 05/13/20 | | | | | | 15 3:52 | | | | | | PM PST | | | | + + +---+---+---+ +---+---+ | | | +---+---+ + +-------+ +------+---+---+ | ondansetron (ZOFRAN) injection | Given | 05/13/20 | 4 mg | | | | INTRAPROCEDURE PRN, Starting Miriam | | 15 7:08 | | | | | 05/13/15 at 1908, Until Miriam | | PM PST | | | | | 05/13/15 at 1944 | | | | | | + +-------+ +------+---+---+ +---+---+ | | | +---+---+ + +-------+ +---------+---+---+ | PHENYLEPHrine 100 mcg/mL IV | Given | 05/13/20 | 100 mcg | | | | syringe INTRAPROCEDURE PRN, | | 15 6:53 | | | | | Starting Miriam 05/13/15 at 1853, | | PM PST | | | | | Until Miriam 05/13/15 at 1944 | | | | | | + +-------+ +---------+---+---+ +---+---+ | | | +---+---+ + + + + +--------+---+ | propofol (DIPRIVAN) injection | Rate/Dos | 05/13/20 | 60 | 30.96 | | | INTRAPROCEDURE CONTINUOUS PRN, | e Change | 15 5:52 | mcg/kg/m | mL/hr | | | Starting Miriam 05/13/15 at 1549, | | PM PST | in | | | | Until Miriam 05/13/15 at 1945 | | | | | | + + + + +--------+---+ + + + +--------+---+ | Rate/Dose Change | 05/13/20 | 70 | 36.12 | | | | 15 5:40 | mcg/kg/m | mL/hr | | | | PM PST | in | | | + + + +--------+---+ | Rate/Dose Change | 05/13/20 | 60 | 30.96 | | | | 15 5:27 | mcg/kg/m | mL/hr | | | | PM PST | in | | | + + + +--------+---+ +---+---+ | | | +---+---+ + +-------+ +--------+---+---+ | propofol INTRAPROCEDURE PRN, | Given | 05/13/20 | 200 mg | | | | Starting Miriam 05/13/15 at 1520, | | 15 3:20 | | | | | Until Miriam 05/13/15 at 1945 | | PM PST | | | | + +-------+ +--------+---+---+ +---+---+ | | | +---+---+ + +-------+ +-------+---+---+ | rocuronium (ZEMURON) injection | Given | 05/13/20 | 30 mg | | | | INTRAPROCEDURE PRN, Starting Miriam | | 15 3:20 | | | | | 05/13/15 at 1520, Until Miriam | | PM PST | | | | | 05/13/15 at 1945, Neuromuscular | | | | | | | block | | | | | | + +-------+ +-------+---+---+ +---+---+ | | | +---+---+ documented in this encounter"
--- OUTSIDE RECORDS SUMMARY | ~2019-11-28 | XMS | Encounter Summary ---
Demographics + + + | Address | [address] | | | [place] [address] | + + + | Home Phone [...] + + + | Author | [facility] | + + + | Organization | [facility] | + + + | [...] Team Providers + +------+ + | Care Director Of Player Personnel Name | Role | Phone | + [...] | tumor | PA-C [address] | | | | | Thoracic | [address] | Ave | | | | | spine tumor | [place], [place] | [facility] [place] | | | | | Procedures | [address] | [address] | | | | | MRI SPINE | Phone: | Phone: | | | | | THORACIC WWO | [phone] | [phone] | | | | | CONTRAST | Fax: | Fax: | | | | | [place] MRI, | [phone] | [phone] | | | | | DORSAL SPINE | | | | | | | COMBO [...] | tumor | PA-C [address] | | | | | Thoracic | [address] | Ave | | | | | spine tumor | [place], [place] | [place] | | | | | Procedures | [address] | [address] | | | | | MRI SPINE | Phone: | Phone: | | | | | THORACIC WWO | [phone] | [phone] | | | | | CONTRAST | Fax: | Fax: | | | | | [place] MRI, | [phone] | [phone] | | | | | DORSAL SPINE | | | | | | | COMBO | | | +--------+--------+ + + + + Encounter Details +--------+ + + + + | Date | Type | Department | Care Team | Description | +--------+ + + + + | 01/16/ | Hospital | Radiology/Imaging | | | | 2015 | Encounter | Lab at [facility] [address] | | | | | | [address] [place] Mailcode: | | | | | | [facility] | | | | | | Health and Healing, | | | | | | Building [address], 3rd | | | | | | Floor [facility] [place] | | | | | | [address] | | | | | | [phone] | | | +--------+ + + + [...] | | | | | | [place] | | | | | | [address] | | | | | | [phone] | | | | | | | | +--------+ + + + + | 12/10/ | Office | Neurological Surgery | April Beck MD | | | 2019 | Visit | | [address] | | | | | | [address] | | | | | | [place], [place] | | | | | | [address] | | | | | | [phone] | | | | | | | [...] | | | | nodule at the [id number]. | | | | | | 2. [...] | | | | | MDAuthor: SUMEET SANTORO | | | | | | I [...] | | + +---------+ + + | [facility] DEPARTMENT OF | | | | | [...]
--- OUTSIDE RECORDS SUMMARY | ~2019-11-28 | XMS | Encounter Summary ---
Demographics + + + | Address | [address] | | | [place] [address] | + + + | Home Phone | | + + + | Preferred Language | Unknown | + + + | Marital Status | Single | + + + | Jainism Affiliation | NON | + + + | Race | White | + + + | Ethnic Group | Not or | + + + Author + + + | Author | [facility] | + + + | Organization | [facility] | + + + | [...] Team Providers + +------+ + | Care Barber Name | Role | Phone | + +------+ + | Tiff ChapinP | PCP | | + +------+ + Encounter Details +--------+ + + + + | Date | Type | Department | Care Team | Description | +--------+ + + + + | 05/18/ | Documentati | Neurosurgery at | Raegan Doss, | | | 2015 | on | [place] [facility] | PA-C [address] | | | | | and Healing [address] | [place], [place] | | | | | [address] Mailcode: | [address] | | | | | [facility] | [phone] | | | | | Health and Healing, | | | | | | [facility] | | | | | | Floor [place], [place] | | | | | | [address] | | | | | | [phone] | | | +--------+ + + + [...] | | | | | | [place], [place] | | | | | | [address] | | | | | | [phone] | | | | | | | | +--------+ + + + + | 12/10/ | Office | Neurological Surgery | April Beck MD | | | 2020 | Visit | | [address] [facility] | | | | | | [address] | | | | | | [place], [place] | | | | | | [address] | | | | | | [phone] | | | | | | | | +--------+ + + + + documented as of this encounter Visit Diagnoses Not on filedocumented in this encounter"
--- OUTSIDE RECORDS SUMMARY | ~2019-11-28 | XMS | Encounter Summary ---
Demographics + + + | Address | [address] | | | [place] [address] | + + + | Home Phone | | + + + | Preferred Language | Unknown | + + + | Marital Status | Single | + + + | Holiness Affiliation | NON | + + + [...] Team Providers + +------+ + | Care Doll Wig Maker Rooted Hair Name | Role | Phone | + [...] | Procedures | [address] | [address] [place] | | | | | MRI SPINE | [place], [place] | Research | | | | | THORACIC WWO | [address] | Center | | | | | CONTRAST | Phone: | [place], [place] | | | | | [place] MRI, | [phone] | [address] | | | | | DORSAL SPINE | Fax: | Phone: | | | | | COMBO | [phone] | [phone] | | | | | | | Fax: | | | | | | | [phone] | +--------+--------+ + + + + Reason [...] [address] | | | | | [place] EST | [facility] | [place], [place] | | | | | PATIENT | Rd | [address] | | | | | LEVEL V | [place], [place] | Phone: | | | | | | [address] | [phone] | | | | | | | Fax: | | | | | | | [phone] | +--------+--------+ + + + + Encounter [...] | | | Ave Mailcode: | Ave [place], [place] | | | | | [facility] | [address] | | | | | [address] [place], | [phone] | | | | | [address] [place] [address] | | | | | | [place], [place] | | | | | | [address] | | | | | | [phone] | | | +--------+---------+ + + + [...] strength and bowel/bladder has been quite stable [facility] her last visit in February with [...] Alert, oriented x3. Speech clear, fluent. Approx 2ysg3ms firm nodule Sensation: RLE - LT sensation [...] for routine tumor surveillance [facility] AT [address] [address] documented in this encounter Plan [...] | | | | | | [place], [place] | | | | | | [address] | | | | | | [phone] | | | | | | | | +--------+ + + + + | 12/10/ | Office | Neurological Surgery | April Beck MD | | | 2019 | Visit | | [address] | | | | | | [address] | | | | | | [place], [place] | | | | | | [address] | | | | | | [phone] | | | | | | | [...]
--- OUTSIDE RECORDS SUMMARY | ~2019-11-28 | XMS | Encounter Summary ---
Demographics + + + | Address | [address] | | | [place] [address] | + + + | Home Phone | | + + + | Preferred Language | Unknown | + + + | Marital Status | Single | + + + | Quaker Affiliation | NON | + + + [...] Team Providers + +------+ + | Care Account Manager Name | Role | Phone | + +------+ + | Tiff Chapin | PCP | | + +------+ + Encounter Details +--------+ + + + + | Date | Type | Department | Care Team | Description | +--------+ + + + + | 09/08/ | Document-Sc | Health Information | Unknown . | | | 2016 | anned | Services [address] | | | | | | [address] | | | | | | Mailcode: OP17A | | | | | | [facility] | | | | | | [place], [place] | | | | | | [address] | | | | | | [phone] | | | +--------+ + + + [...] | | | | | | [place] [facility] [place] | | | | | | [address] | | | | | | [phone] | | | | | | | | +--------+ + + + + | 12/10/ | Office | Neurological Surgery | April Beck MD | | | 2019 | Visit | | [address] | | | | | | [address] | | | | | | [facility] [place] | | | | | | [address] | | | | | | [phone] | | | | | | | | +--------+ + + + + documented as of this encounter Procedures + +--------+ + + + | Procedure Name | Priori | Date/Time | Associated Diagnosis | Comments | | | ty | | | | + +--------+ + + + | RADIOLOGY | | 09/09/2015 | | Results for this | | | | 12:00 AM | | procedure are in the | | | | PST | | results section. | + +--------+ + + + documented in this encounter Results RADIOLOGY (09/09/2015 12:00 AM PST) + + + | Narrative | Performed At | + + + | | | + + + documented in this encounter Visit Diagnoses Not on filedocumented in this encounter"
--- OUTSIDE RECORDS SUMMARY | ~2019-11-28 | XMS | Encounter Summary ---
Demographics + + + | Address | [address] | | | [place] [address] | + + + | Home Phone [...] + + + | Author | [facility] | + + + | Organization | [facility] | + + + | Address [...] Team Providers + +------+ + | Care Technology Officer Name | Role | Phone | + [...] Office | Spine Center at | Raegan Doss Ezequiel, | Thoracic spine tumor | | 2019 | Visit | [facility] [address] | PA-C [address] | (Primary Dx) | | | | [place] Mailcode: | [place], [place] | | | | | [facility] | [address] | | | | | and [place], | [phone] | | | | | Building [address] | | | | | | [place], [place] | | | | | | [address] | | | | | | [phone] | | | +--------+---------+ + + + [...] 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 Today the patient [...] or neurogenic bowel/bladder) develop. 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
--- OUTSIDE RECORDS SUMMARY | ~2019-11-28 | XMS | Encounter Summary ---
Demographics + + + | Address | [address] | | | [place] [address] | + + + | Home Phone | | + + + | Preferred Language | Unknown | + + + | Marital Status | Single | + + + | Caodaism Affiliation | NON | + + + [...] Team Providers + +------+ + | Care Labor Relations Teacher Name | Role | Phone | + +------+ + | Damir Sy MD | PCP | | + +------+ + Encounter Details +--------+ + + + + | Date | Type | Department | Care Team | Description | +--------+ + + + + | 07/07/ | Procedure | Diagnostic Imaging | | | | 2017 | Pass | Services at [facility] | | | | | | [address] | | | | | | [place] | | | | | | [facility] | | | | | | [place], [place] | | | | | | [address] | | | | | | [phone] | | | +--------+ + + + [...] | | | | | | [place], [place] | | | | | | [address] | | | | | | [phone] | | | | | | | | +--------+ + + + + | 12/10/ | Office | Neurological Surgery | April Beck MD | | | 2019 | Visit | | [address] | | | | | | [address] | | | | | | [place], [place] | | | | | | [address] | | | | | | [phone] | | | | | | | | +--------+ + + + + documented as of this encounter Visit Diagnoses Not on filedocumented in this encounter"
--- OUTSIDE RECORDS SUMMARY | ~2019-11-28 | XMS | Clinical Summary ---
Demographics + + + | Address | [address] | | | [place] [address] | + + + | Home Phone | | + + + | Preferred Language | Unknown | + + + | Marital Status | Unknown | + + + | Caodaism Affiliation | Unknown | + + + | Race | Unknown | + + + | Ethnic Group | Unknown | + + + Author + + + | Author | [facility] | | | and [place] | + + + | Organization | [facility] | | | and [...] [id number], [place] | | | | | [address] | | + + + + + Care Team Providers + +------+ + | Care Hypoid Gear Tester Name | Role | Phone | + [...] Vaccine: Influenza | | | | | (Season Ended) | 0 | | | + + + + [...] | [employer] | [employer] | [id number] | 05/06/ | [phone] | | Medica | | MEDICAID HMO [...] | | [address] (Home) | [place] [address] | + +--------+ +--------+ + + | Matt Fagan T | Person | Self | [birth year] | [address] | | | al/Fam | | 1990 | [phone] | [id number] | | | mehul | | | [address] (Home) | [place] [address] | + +--------+ +--------+ + + Advance Directives + + + + + | Type | Date Recorded | Patient | Explanation | | | | Press Operator Apprentice | | + + + + + | Power of | | | | | Nuclear Control Operator | | | | + + + + + | Advance | | | | | Directive | | | | + + + + +"
--- OUTSIDE RECORDS SUMMARY | ~2019-11-28 | XMS | Encounter Summary ---
Demographics + + + | Address | [address] | | | [place] [address] | + + + | Home Phone | | + + + | Preferred Language | Unknown | + + + | Marital Status | Single | + + + | Protestant Affiliation | NON | + + + | Race | White | + + + | Ethnic Group | Not or | + + + Author + + + | Author | [facility] | + + + | Organization | [facility] | + + + | [...] Team Providers + +------+ + | Care Veterinary Pathologist Name | Role | Phone | + +------+ + | Clare Can MD | PCP | | + +------+ [...] | tumor | PA-C [address] | | | | | | Procedures | [address] | | | | | | OCCUPATIONAL | [facility] [place] | | | | | | THERAPY | [address] | | | | | | REFERRAL | Phone: | | | | | | | [phone] | | | | | | | Fax: | | | | | | | [phone] | | +--------+--------+ + + + + Physical Therapy (Routine) +--------+--------+ + + + + | Status | Reason | Specialty | Diagnoses / | Referred By | Referred To | | | | | Procedures | Contact | Contact | +--------+--------+ + + + + | Closed | | Physical | Diagnoses | Doss, | | | | | Therapy | Spinal cord | Raegan Nieves, | | | | | | tumor | PA-C [address] | | | | | | Procedures | [address] | | | | | | PHYSICAL | [facility] [place] | | | | | | THERAPY | [address] | | | | | | REFERRAL | Phone: | | | | | | | [phone] | | | | | | | Fax: | | | | | | | [phone] | | +--------+--------+ + + + + [...] + + | 01/11/ | Hospital | [facility] [address] | Miguel Powell, | | | 2017 - | Encounter | [address] | [address] [facility] | | | | | /[id number] | [facility] | | | 01/18/ | | HOSPITAL [place], | [place], [place] | | | 2017 | | [place] [address] | [address] | | | | | [phone] | [phone] | | | | | | | | | | | | Bin Li MD | | | | | | Sascha Monk, | | | | | | [address] | | | | | | [place], [place] | | | | | | [address] | | | | | | [phone] | | | | | | | | | | | | Rajinder Luis MD | | | | | | [address] | | | | | | [place], [place] | | | | | | [address] | | | | | | [phone] | | | | | | | [...] DISCHARGE SUMMARY: Patient: Matt Fagan Admission Date: 01/11/2017 Discharge Date: 01/18/2017 Attending Physician: Rajinder Luis MD PCP: Clare Chowdary MD Service: [facility] Neurosurgery Diagnoses 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 Post operatively, the patient was admitted [...] rehabilitation team and was seen by a Cnc Lathe Programmer with recommendation for IPR (TRISTON) upon discharge. [...] at her post-op clinic visit or at [facility] by a provider and then cancel the [...] be on the 12th floor at the [facility] on the [facility] located at [address], [place] [address]. Please call [phone] if you have any questions or concerns before your appointment time. If you are still admitted to [facility] at the time of this appointment, the providers at [facility] can remove your slim. Please then make a 6 week post-op visit to see Raegan Doss PA-C in [facility] ro[facility] clinic for routine follow up. You can call [phone] to make this appointment. PCP:Clare Chowdary MD [...] 01/28/17. If you are still admitted to [facility] when your slim need to come out, the providers at [facility] c an remove your slim. Please then make a 6 week post-op visit to see Raegan Doss PA-C in Neurosurgery clinic for routine follow up. You can call [phone] to make this appointmen t. Special Instructions/Tests: N/A Condition On Discharge: Good Vital Signs at discharge as appropriate: BP: 109/55 (01/18/17 045) Pulse: 64 (01/18/17 045) Resp: 14 (450) Weight: 78 kg (171 lb 15.3 oz) (01/15/17 0000) Discharge Patient To: Interhospital Transfer - [facility] Does patient have a planned readmission: No Discharge Summary Completed?: Yes. 01/18/2017 Discharging Provider: Raegan Doss PA-C Date Completed: 01/18/2017 Time Completed: 10:56 AM Discharging Attending: Rajinder Luis MD [address] [place] [address] documented in this encounter Progress Notes Raegan [...] patient and recommended a short stay at [facility] -Patient has required several straight caths [...] Intake/Output Summary (Last 24 hours) at 01/18/17 0953 Last data filed at 01/18/17 0520 Gross per 24 hour Intake 1420 ml Output 1775 ml Net -355 ml Exam: Alert, oriented x3. Speech clear, fluent. Gaze conjugate. Face symmetric. Thoracic incision: flat, dry, no erythema, intact. [place] present. Sensation: LT sensation is patchy in BLE. Motor: HF KF KE APF ADF Left 5 5 5 5 5 Right 5 4+ 4 5 5 Labs: CBC with diff last 72 hours (or 3 results) Recent Labs 01/16/17 0714 01/17/17 0634 01/18/17 0635 WBC 9.16 8.18 7.96 HB 12.0 12.6 11.5* HCT 37.4 39.2 36.5 PLT 249 290 319 Chemistries: Last 72 Hours (or 3 results): Recent Labs 01/16/1714 01/17/17 0634 01/18/17 0635 NA 136 139 139 [...] prevention, appreciate PT/OT involvement with recs for [facility]. ID/Heme: Afebrile since admission on 01/11. DVT ppx: SCDs while in bed, ppx lovenox 40mg inj. qHS. Dispo: Patient is medically stable for discharge. CM working on placement at [facility] for discharge today. Raegan Doss PA-C [facility] [address] [address] [address] dams, PHILIPPE Mena - 01/17/2017 10:28 AM PDT Neurosurgery Progress Note Hospital Day:6 Author; Raegan Doss PA-C Attending Physician: Rajinder Luis MD Interval Hx: Patient was able to ambulate to the bathroom last night with a walker and standby assist. P ain is still controlled at 6-7/10. Daniels removed yesterday. Patient has been straight [...] Thoracic incision: flat, dry, intact. No erythema. [place] present. Sensation: Patchy numbness in BLE. Decreased [...] siatry consult placed for possible admission to [facility]. ID/Heme: Afebrile since admission on 01/11. DVT ppx: SCDs while in bed, ppx lovenox 40mg inj. qHS. Dispo: Pending physiatry consult. Appreciate CM involvement. Raegan Doss PA-C [facility] [address] [address] [place] [address] dams, PHILIPPE Mena - 01/16/2017 8:38 AM [...] incision: flat, dry, no erythema, no fluctuance. S[place] present. Sensation: Patchy sensation loss in BLE, L>R. Motor: HF KF KE APF ADF Left 5 5 5 5 5 Right 5 5 4+ 5 5 Labs: CBC with diff last 72 hours (or 3 results) Recent Labs 01/14/175301/15/172901/16/1714 WBC 8.70 10.08 9.16 HB 11.8* 11.9* 12.0 HCT 36.0 37.0 37.4 PLT 257 237 249 Chemistries: Last 72 Hours (or 3 results): Recent Labs 01/14/175301/14/1772801/15/172901/16/1714 NA 142 -- -- 142 136 K [...] Will discuss with CM. Raegan Doss PA-C [facility] [address] [address]/[facility] [place] [address] dams, PHILIPPE Mena - 01/15/2017 9:02 AM [...] catheter in until able to ambulate to [facility]. She also r equests going up on [...] 09/09/15, 03/22/2016). Patient presented to OSH on 7/6/17 with repor ts of progressive RLE weakness [...] and possible rehab needs. Raegan Doss PA-C [facility] [address] [address] [address] Kaci Adorno M D - 01/14/2017 9:42 AM PDT . Neuroscience Intensive Care Unit Attending Progress Note Attending Pager #[phone] Documentation Date 01/13/17 1450 Day of Procedure [...] team members Provider Role Specialty Ipt Neurosurgery #[id number] Treatment Team Neurological Surgery Ipt Critical Care Nsicu #[id number] Treatment Team -- Code Status Code Status [...] on counseling and coordination of care.Seen with PA/BURNER SHAFT Ryan. Please see their note for details. I reviewed the documented findings, all data and the recent imaging available. Date of Service: 01/14/2017 Kaci Mon MD Author:Kaci Mon MD [address] [id number] signed by Kaci Mon MD at 01/14/2017 8:45 PM PDTLarson, Chirag Navarro MD - 01/14/2017 9:03 AM PDTFormatting of [...] Incision clean/dry/intact RADIOLOGY: No new films ASSESSMENT/PLAN: Matt Fagan is a 26 y.o. female HD#3 [...] Aaron MD Neurosurgery, PGY-2 On-call resident pager [phone] 9:03 AM 01/14/2017 ogbrian, Nay Alvarenga [facility] - 01/14/2017 7:30 AM PDT . Neuroscience Intensive Care Unit Team Progress Note NSICU ASSIGNED #[id number] Documentation Date 01/13/17 1450 Day of Procedure 01/13/17 Spinal Procedures Spinal Procedures Spinal Procedures Posterior Instrumental Fusion Posterior Instrumental Fusion Lumbar Admission dx: INTRINSIC SPINAL CORD TUMOR 1 Days in ICU 3 Days in Hospital 24 hour events S/p T8 and T9 laminectomy for 4th resection of intramedullary tumor HOB flat until 1200 [place] dc'd Keep daniels until mobilizing Resumed home [...] team members Provider Role Specialty Ipt Neurosurgery #[id number] Treatment Team Neurological Surgery Ipt Critical Care Nsicu #[id number] Treatment Team -- Patient Lines/Drains/Airways Status Active [...] of Service: 01/14/2017 AIXA Sanders EPIC DEPARTMENT: ANE ICU NEURO Place of Service:- Inpatient CSN: [id number] Suggested Modifier: None Suggested CPT: TO ANODIC TREATER AIXA Orozco Author:AIXA Sanders [address] [id number] signed by AIXA Orozco at 01/14/2017 11:26 AM Stephie Rodríguez MD - 01/13/2017 9:35 PM PDTFormatting of this note might be differen t from the original. . Neuroscience Intensive Care Unit Attending Progress Note Attending Pager #[phone] Documentation Date 01/13/17 1450 Day of Procedure [...] team members Provider Role Specialty Ipt Neurosurgery #[id number] Treatment Team Neurological Surgery Ipt Critical Care Nsicu #17537 Treatment Team -- Code Status Code Status [...] on counseling and coordination of care.Seen with PA/BURNER SHAFT Yaz Eztonya. Please see their note for details. I reviewed the documented findings, all data and the recent shmuel ging available. Date of Service: 01/13/2017 [facility] DEPARTMENT: ANE ICU NEURO Place of Service:- Inpatient CSN: [id number] Suggested Modifier: GC - Resident Involved Suggested CPT: TO ANODIC TREATER Author:Stephie Anders MD [place] [place] [id number] signed by Stephie Anders MD at 01/13/2017 9:36 PM PDTLasmooth, Chirag Navarro MD - 01/13/2017 8:22 PM PDTFormatting of [...] Aaron MD Neurosurgery, PGY-2 On-call resident pager [phone] 8:22 PM 01/13/2017 Cesar Najera MD - [...] with the report as now presented. Impression: Matt Fagan is a 26 yo female s/p [...] MD Neurosurgery Resident 11:07 PM, 01/12/2017 Pager #[phone] Kacey Elizabeth P A-C - 01/12/2017 8:42 [...] with the report as now presented. Impression: Matt Fagan is a 26 yo female 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 Last surgery 03/22/2016 she underwent RIGHT T8-T9 hemilaminectomy f or resection of residual tumor. Her last MRI was 11/27/2016. She presents with new onset RLE weakness with decreased sensation and coordination in setting of fever to 103. [facility] and unchanged. Concern for tumor progression [...] 01/14 for tumor resection. Kacey Pimentel PA-C [facility] [address] [place] [address] Chavo Robert MD - 01/11/2017 9:27 PM [...] midline No pronator drift Delt Bi Tri Orchestra Teacher HF KE KF DF PF Left 5 5 5 5 5 5 5 5 5 Right 5 5 5 5 4+ 5 4 5 5 Decreased sensation in BLE LLE sensation at baseline, no changes RLE worsening decreased sensation from baseline Assessment: Matt Fagan is a 26 yo female s/p [...] now Chavo Penn MD Neurosurgery Resident Pager #[phone] signed by Chavo Penn MD at 01/11/2017 9:57 PM PDTdocumarylin davila in this encounter Plan of Treatment +--------+ [...] | | | | | | [place], [place] | | | | | | [address] | | | | | | [phone] | | | | | | | | +--------+ + + + + | 12/10/ | Office | Neurological Surgery | April Beck MD | | | 2019 | Visit | | [address] | | | | | | [address] | | | | | | [place], [place] | | | | | | [address] | | | | | | [phone] | | | | | | | [...] | + + + + + | [facility] | [address] | [place] [address] | | | SERVICES, CORE | [address] | | | + + + [...] | | | LABORATORY | | | BOLIVIAN | | | SERVICES, | | | [...] LABORATORY | [address] | [place] [address] | | | SERVICES, CORE | [address] [...] LABORATORY | [address] | [place] [address] | | | SERVICES, CORE | [address] [...] | | | LABORATORY | | | BOLIVIAN | | | SERVICES, | | | [...] | + + + + + | [facility] [employer] | [address] | [place] [address] | | | SERVICES, CORE | [address] | | | + + + [...] + | [facility] | [address] | [place] [address] | | | SERVICES, CORE | [address] [...] | | | LABORATORY | | | BOLIVIAN | | | SERVICES, | | | [...] the MDRD equation recommended by the | [facility] | | National Kidney [...] | + + + + + | [facility] LAB[facility]ORY | [address] | [place] [address] | | | NINO LEONARD | [address] | | | + + + + + PROCEDURE NOTE (01/15/2017 7:18 PM PDT)OPERATION RECORD (01/15/2017 8:11 AM PDT) + + | Procedure Note | + + | Rajinder Luis MD - 01/13/2017 8:53 PM PDT Date of Service: 01/13/2017 Attending | | Surgeon: Rajinder Luis MD Hat Brim Curler(s): Joby Thibodeaux | | . Preoperative Diagnosis: [...] Please see Epic for details, but briefly, Matt Fagan is a 26-year-old | | female [...] the | | operating room on a [facility]. General endotracheal anesthesia was induced by [...] dura was reapproximated and closed using 5-0 [place]-Thaddeus suture | | in a running fashion. [...] to a supine position on | | [facility]. She was then extubated by the [...] 01/13/2017 19:31:27DT: | | 01/13/2017 20:53:09Job #: [id number] | + + CBC (HEMOGRAM) ONLY (01/15/2017 [...] | + + + + + | [facility] | [address] | [place] [address] | | | SERVICES, CORE | P[address] [...] | | | LABORATORY | | | BOLIVIAN | | | SERVICES, | | | [...] the MDRD equation recommended by the | [facility] | | National Kidney [...] | + + + + + | [facility] LABORATORY | [address] | [place] [address] | | | SERVICES, CORE | [address] | | | + + + + + MAGNESIUM, PLASMA (01/15/2017 12:30 AM PDT) + +-------+ + + + | Component | Value | Ref Range | Performed | Pathologist | | | | | At | Signature | + +-------+ + + + | MAGNESIUM,P | 2.3 | 1.8 - 2.5 mg/dL | [facility] | | | LAS[facility] | | | [...] | + + + + + | [facility] | [address] | [place] [address] | | | SERVICES, CORE | [address] | | | + + + [...] + | [facility] | [address] | [place], [place] | | | ZELALEM HERRERA OF NURIA | [address] | [address] | | | TESTS | | | [...] + | [facility] | [address] | [place], [place] | | | ZELALEM HERRERA OF CARE | [facility] | [address] | | | TESTS | | | [...] | + + + + + | [facility]ORY | [address] | [place] [address] | | | SERVICES, CORE | [address] | | | + + + [...] | [facility] | [address] | [place] [address] | | | SERVICES, CORE | [address] | | | + + + [...] | | | LABORATORY | | | BOLIVIAN | | | SERVICES, | | | [...] | + + + + + | [facility] | [address] | [place] [address] | | | NINO LEONARD | [address] | | | + + + + + CAPILLARY BLOOD GLUCOSE (NO CHG), POC (01/13/2017 7:38 PM PDT) + +-------+ + + + | Component | Value | Ref Range | Performed | Pathologist | | | | | At | Signature | + +-------+ + + + | BLOOD | 97 | 60 - 99 mg/dL | [facility] [...] + + + + + | [facility] | [address] [address] | [place], [place] | | | [facility] | [address] | [address] | | | TESTS | | | [...] forthcoming dictation for details. | | | oJby Thibodeaux MD Neurosurgery PGY-6 | | + [...] | | ART, POC | | | PATTY | | [...] | [facility] | [address] | [place], [place] | | | ZELALEM HERRERA OF CARE | [address] | [address] | | | TESTS | | | [...] + | [facility] | [address] | [place], [place] | | | ZELALEM HERRERA OF NURIA | [address] | [address] | | | TESTS | | | [...] + + + + | PRODUCT | [id number] | | [facility] | | | UNIT [...] + + + + | EXPIRATION | [id number] | | [facility] | | | DATE [...] + + + + | BLOOD | [id number] | | [facility] | | | PRODUCT [...] LABORATORY | [address] | [place] [address] | | | SERVICES, | [address] [...] + + + + | PRODUCT | [id number] | | [facility] | | | UNIT [...] + + + + | EXPIRATION | [id number] | | [facility] | | | DATE [...] + + + + | BLOOD | [id number] | | [facility] | | | PRODUCT [...] LABORATORY | [address] | [place] [address] | | | SERVICES, | [address] [...] + | [facility] | [address] | [place], [place] | | | JAVIER POINT OF CARE | [address] | [address] | | | TESTS | | | [...] LABORATORY | [address] | [place] [address] | | | SERVICES, SPECIAL | [address] [...] | + + + + + | [facility] | [address] | [place] [address] | | | SERVICES, CORE | [address] | | | + + + [...] | | evaluated on prior MRI dated 7/6/17. Paraspinal soft tissues: | | UnremarkableIMPRESSION:1. Postsurgical [...] | | | Service: IP Intra Op [phone] [id number] INTRAOPERATIVE NEURO | | | MONITORING IOM: [...] | | Clinical Neurophysiology Department Suggested CPT: 15062 - IOM | | | Remote x 3 hr(s) 68551 - Short Latency EP's Upper AND Lower | | | extremities 19806 - Central Motor EP's Upper AND Lower extremities | | | 87071 - Neuromuscular Junction Test Suggested Diagnosis: D43.4 [...] original | | | | | | [id number]) with cells | | | | | [...] seen | | | | | | by:Russel Bolton, D.O. | | | | | | / Neuropathology | | | | | | Bubba Crystal, | | | | | | M.D., Ph.D. / | | | | | | NeuropathologistT: | | | | | | 01/17/2017 AH | | | | | | Amendment seen by:Russel | | | | | | Che, D.O. / | | | | | [...] medical | | | | | | record#[id number]. | | | | | | A: [...] | + + + + + | [facility] | [address] | [place] [address] | | | PATHOLOGY | [address] [...] | + + + + + | [facility] | [address] | [place] [address] | | | SERVICES, SPECIAL | [address] | | | | IMM + [...] | + + + + + | [facility] | [address] | [place] [address] | | | SERVICES, [facility] | [address] | | | + + + [...] | | + +---------+ + + | [facility] RADIOLOGY | | | | | VOICE [...] LABORATORY | [address] | [place] [address] | | | SERVICES, | [address] [...] | + + + + + | [facility] | [address] | [place] [address] | | | SERVICES, | [address] [...] | + + + + + | [facility] | [address] | [place] [address] | | | SERVICES, CORE | [address] | | | + + + [...] | + + + + + | [facility]ORY | [address] | [place] [address] | | | SERVICES, CORE | [address] [...] | + + + + + | [facility] [employer] | [address] | [place] [address] | | | SERVICES, CORE | [address] | | | + + + [...] | | | LABORATORY | | | BOLIVIAN | | | SERVICES, | | | [...] | + + + + + | [facility] | [address] | [place] [address] | | | SERVICES, CORE | [address] | | | + + + [...] sedimentation rate. | LABORATORY | | | SERVICES, CORE | + + + + + + + + | Performing | Address | City/State/Zipcode | Phone Number | | Organization | | | | + + + + + | [facility] | [address] | [place] [address] | | | SERVICES, CORE | [address] [...] and new reporting units as of | [facility] | | 12/10/2013. | LABORATORY | | | SERVICES, CORE | + + + + + + + + | Performing | Address | City/State/Zipcode | Phone Number | | Organization | | | | + + + + + | [facility] | [address] | [place] [address] | | | SERVICES, CORE | [address] [...] + | [facility] | [address] | [place] [address] | | | [place] | | | [...] | + + + + + | [facility] [employer] | [address] | [place] [address] | | | SERVICES, CORE | [address] | | | + + + + + PORTILLO CARO (01/11/2017 11:10 PM PDT) + + + [...] | [facility] | | | GRAVITY | [place] performed by | | LABORATORY | | [...] | + + + + + | [facility] | [address] | [place] [address] | | | SERVICES, CORE | [address] | | | + + + [...] | + + + + + | [facility] | [address] | [place] [address] | | | SERVICES, CORE | P[address] [...] LABORATORY | [address] | [place] [address] | | | NINO LEONARD | [address] | | | + + + [...] At | + + + | [id number] This patient has registered at the | COLLECTIVE | | [facility] Emergency Department For more | MEDICAL | | information visit: | TECHNOLOGIES | | [email or web address] | | | [email or web address] ED Care Guidelines There are currently no ED Care Guidelines | | | in [place] for this patient. Please check your facility's medical | | | records system. Recent Emergency Department Visit Summary Admit | | | Date Facility City State Type Major Type Diagnoses or Chief Complaint | | | Jan 11, 2017 [facility] [place] Emergency | | | Emergency 10,800. transfer Jan 11, 2017 [facility] | | | [facility]. [place] Emergency Emergency Recent | | | Inpatient Visit Summary No recorded inpatient visits. E.D. Visit | | | Count (12 mo.) Facility Visits [facility] | | | [place] 2 [facility] [address] [place] [address] | | | [facility] 1 Total 6 Note: Visits indicate total | | | known visits. Care Providers Provider PRC Type Phone Fax | | | Service Dates [facility] Primary Care | | | Current CLARE CAN Primary Care Current | | | TIAN ANTOINE NEAL Primary Care | | | Oct 16, [...] for | | | additional information. 2017 [facility] - | | | [place], [place] - [email or web address] | | + + + + + | Procedure Note | + + | Service Account, Rtf Results Inbound - 01/11/2017 8:40 AM PDT Formatting of this | | note might be different from the original.LYNN?NOTIFICATION?01/11/2017 08:38?ANAID | | PRAKASH Parsons? patient has registered at the [facility] | | [place] Emergency Department For more information visit: | | [email or web address] ED Care | | GuidelinesThere are currently no ED Care Guidelines in [place] for this patient. Please | | check your facility's medical records system.Recent Emergency Department Visit | | SummaryAdmit Date Facility [facility] Type Major Type Diagnoses or Chief Complaint Jan | | 2016 [facility] [place] Emergency Emergency 10,800. | | transfer Jan 11, 2017 [facility] [place] Emergency Emergency Recent | | Inpatient Visit SummaryNo recorded inpatient visits. E.D. Visit Count (12 mo.)Facility | | Visits [facility] 2 [facility] 1 [facility] | | [place] 2 [facility] 1 Total 6 Note: Visits indicate total known | | visits. Care ProvidersProvider PRC Type Phone Fax Service Dates [place] | | [facility] Primary Care Current CLARE CAN Primary Care Current | | TIAN DE [facility] Oct 16, 2016 - | [...] additional information. ? 2017 [employer] | | [employer] - [place], [place] - [email or web address] | |[facility] [place] 2 | |[facility] 1 | |[facility] 2 | |[facility] 1 | |Total 6 | |Note: Visits indicate total known visits. | | | |Care Providers | |Provider PRC Type Phone Fax Service Dates | |[facility] Primary Care Current | |CLARE CAN Primary Care Current | |TIAN DE [facility] Oct 16, 2016 - Current | | | |The above information is provided for the sole purpose of patient treatment. Use of this in formation beyond the terms of Data Sharing Memorandum of Understanding and License Agreement is prohibited. In | |certain cases not all visits may be represented. Consult the aforementioned facilities for additional information. | |? 2017 [employer]. - [place], [place] - [email or web address] | + + + + + + + | Performing | Address | City/State/Zipcode | Phone Number | | Organization | | | | + + + + + | [employer] | [address] | [place], [place] | [phone] | | [employer] | [address] | [address] | | + + + + + [...] | | | | last modification) on 01/13/17 | | | | | | [...] | | | HOURS, First dose on [facility] 01/11/17 | | PM PDT | | [...] | | | | | dose on [facility] 01/11/17 at 1830, Until | | PM [...] | | | | | modification) on Sun01/15/17 at | | | | | | [...] | | | | | | dose, [facility] 01/11/17 at 1330 | | | | | | + +---------+ +-------+---+---+ + +---+ | | | + +---+ | glycopyrrolate (ROBINUL) | | | injection 0.2 mg 0.2 mg, | | | intravenous, EVERY 2 HOURS | | | NEEDED, 3 doses, Starting Sun | | | 01/14/17 at 0220, Until [facility] 01/18/17 | | | at 2056, PRN for bradycardia < | | | 40 | | + +---+ | | | + +---+ + +-------+ +--------+---+---+ | HYDROmorphone (DILAUDID) | Given | 07/08/20 | 0.2 mg | | | | [...] | | | | 01/18/17 at 6, moderate pain, | | | | | [...] | | | | First dose on [facility] 01/11/17 at 1800, | | AM PDT | [...] | | | | | NEEDED, Starting [facility] 01/11/17 at | | | | | [...] | | | DAILY, First dose on [facility] 01/11/17 | | PM PDT | | [...] | | | | 01/18/17 at 2056, 1st line - for | | | [...] | | +---+---+ + +-------+ +---------+---+---+ | senna-devonteusate (SENOKOT S) | Given | 01/19/20 | [...]
--- OUTSIDE RECORDS SUMMARY | ~2019-11-28 | XMS | Encounter Summary ---
Demographics + + + | Address | [address] | | | [place] [address] | + + + | Home Phone [...] + + + | Author | [facility] | + + + | Organization | [facility] | + + + | [...] Team Providers + +------+ + | Care Library Media Specialist Name | Role | Phone | + +------+ + | Tiff ChapinP | PCP | | + +------+ + Encounter Details +--------+ + + + + | Date | Type | Department | Care Team | Description | +--------+ + + + + | 05/18/ | Documentati | Neurosurgery at | Raegan Doss, | | | 2015 | on | [facility] | PA-C [address] | | | | | and Healing [address] | [place], [place] | | | | | [address] Mailcode: | [address] | | | | | [address] [facility] | [phone] | | | | | Health and Healing, | | | | | | [facility] | | | | | | Floor [place], [place] | | | | | | [address] | | | | | | [phone] | | | +--------+ + + + [...] | | | | | | [place], [place] | | | | | | [address] | | | | | | [phone] | | | | | | | | +--------+ + + + + | 12/10/ | Office | Neurological Surgery | April Beck MD | | | 2020 | Visit | | [address] [facility] | | | | | | [address] | | | | | | [place], [place] | | | | | | [address] | | | | | | [phone] | | | | | | | | +--------+ + + + + documented as of this encounter Visit Diagnoses Not on filedocumented in this encounter"
--- OUTSIDE RECORDS SUMMARY | ~2019-11-28 | XMS | Encounter Summary ---
Demographics + + + | Address | [address] | | | [place] [address] | + + + | Home Phone [...] Team Providers + +------+ + | Care Front End Technician Name | Role | Phone | + +------+ + | No Pcp Per Patient | PCP | Unavailable | + +------+ + Reason for Referral Diagnostic Testing (Routine) + +--------+ + + + + | Status | Reason | Specialty | Diagnoses / | Referred By | Referred To | | | | | Procedures | Contact | Contact | + +--------+ + + + + | New Request | | Radiology | Diagnoses | Romario, | | | | | | Other | Raegan Nieves, | | | | | | specified | [place] [address] | | | | | | disorders of | [address] | | | | | | nervous | [place], [place] | | | | | | system in | [address] | | | | | | diseases | Phone: | | | | | | classified | [phone] | | | | | | elsewhere | Fax: | | | | | | Thoracic | [phone] | | | | | | spine tumor | | | | | | | Procedures | | | | | | | MRI SPINE | | | | | | | THOR / LUMB | | | | | | | WWO CONTRAST | | | + +--------+ + + + + Encounter Details +--------+ + + + + | Date | Type | Department | Care Team | Description | +--------+ + + + + | 06/30/ | Conservation Enforcement Officer | Spine Center at | Raegan Doss, | 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[facility] [address] | PA-C [address] | (Primary Dx); Other | | | | Ave Mailcode: | Ave [place], [place] | specified disorders | | | | [facility] for [facility] | [address] | of nervous system | | | | and Healing, | [phone] | in diseases | | | | Building 1 | | classified elsewhere | | | | [place], [place] | | | | | | [address] | | | | | | [phone] | | | +--------+ + + + [...] | | | | | | [place], [place] | | | | | | [address] | | | | | | [phone] | | | | | | | | +--------+ + + + + | 12/10/ | Office | Neurological Surgery | April Beck MD | | | 2019 | Visit | | [address] | | | | | | [address] | | | | | | [place], [place] | | | | | | [address] | | | | | | [phone] | | | | | | | | +--------+ + + + + + +---------+--------+ + + | Name | Type | Priori | Associated Diagnoses | Order Schedule | | | | ty | | | + +---------+--------+ + + | MRI SPINE THOR / | Imaging | Routin | Other specified | Expected: | | LUMB WWO CONTRAST | | e | disorders of nervous | 06/30/2019, Expires: | | | | | system in diseases | 07/31/2020 | | | | | classified elsewhere | | | | | | Thoracic spine | | | | | | tumor | | + +---------+--------+ + + documented as of this encounter Visit Diagnoses + + | Diagnosis | + + | 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
--- OUTSIDE RECORDS SUMMARY | ~2019-11-28 | XMS | Encounter Summary ---
Demographics + + + | Address | [address] | | | [place] [address] | + + + | Home Phone [...] Team Providers + +------+ + | Care Bean Picker Name | Role | Phone | + [...] | | | | uncertain | [address] | [address] | | | | | behavior of | Ave | Ave | | | | | spinal cord | [place], [place] | [place], [place] | | | | | Procedures | [address] | [address] | | | | | REQUEST TO | Phone: | Phone: | | | | | SURGERY | [phone] | [phone] | | | | | AN EMPLOYEE SPONSOR OR ADVOCATE AND | Fax: | Fax: | | | | | [place] BX/[facility] | [phone] | [phone] | | | | | SPIN | | | | | | | MARCELINO,INDUR,IN | | | | | | | MED,[place] | | | | | | | [...] + + + + | 05/10/ | Medical Office Technology Instructor | Neurosurgery at | Raegan Doss, | Weakness of right | | 2015 | | [facility] | PA-C [address] | lower extremity | | | | and Healing [address] | Ave [place], [place] | (Primary Dx) | | | | [address] [place] Mailcode: | [address] | | | | | [facility] | [phone] | | | | | Health and Healing, | | | | | | Building | | | | | | Floor [facility] [place] | | | | | | [address] | | | | | | [phone] | | | +--------+ + + + [...] | | | | | [place], [place] | | | | | | [address] | | | | | | [phone] | | | | | | | | +--------+ + + + + | 12/10/ | Office | Neurological Surgery | April Beck MD | | | 2020 | Visit | | [address] | | | | | | [address] | | | | | | [place], [place] | | | | | | [address] | | | | | | [phone] | | | | | | | | +--------+ + + + + documented as of this encounter Visit Diagnoses + + | Diagnosis | + + | Weakness of right lower extremity - Primary | + + documented in this encounter"
--- OUTSIDE RECORDS SUMMARY | ~2019-11-28 | XMS | Encounter Summary ---
Demographics + + + | Address | [address] | | | [place] [address] | + + + | Home Phone [...] Providers + +------+ + | Care Certified Registered Nurse Anesthetist Name | Role | Phone | + +------+ + | Clare Franks MD | PCP | | + +------+ + Encounter Details +--------+ + + + + | Date | Type | Department | Care Team | Description | +--------+ + + + + | 01/02/ | Document-Sc | Health Information | Unknown . | | | 2018 | anned | Services [address] | | | | | | [address] | | | | | | Mailcode: OP17A | | | | | | [facility] | | | | | | [place], [place] | | | | | | [address] | | | | | | [phone] | | | +--------+ + + + [...] | | 2019 | | | [place] [address] | | | | | | [place] [facility] [place] | | | | | | [address] | | | | | | [phone] | | | | | | | | +--------+ + + + + | 12/10/ | Office | Neurological Surgery | April Beck MD | | | 2020 | Visit | | [address] | | | | | | [address] | | | | | | [place], [place] | | | | | | [address] | | | | | | [phone] | | | | | | | | +--------+ + + + + documented as of this encounter Visit Diagnoses Not on filedocumented in this encounter"
--- OUTSIDE RECORDS SUMMARY | ~2019-11-28 | XMS | Encounter Summary ---
Demographics + + + | Address | [address] | | | [place] [address] | + + + | Home Phone | | + + + | Preferred Language | Unknown | + + + | Marital Status | Single | + + + | Restorationism Affiliation | NON | + + + [...] Team Providers + +------+ + | Care Electrical Instrument Maker Name | Role | Phone | [...] | Surgery | Spinal cord | Dept [facility] | Rajinder Fisher MD | | | | | tumor ED | [address] | [address] | | | | | f/u T5-10 | [address] | Ave | | | | | spinal cord | Rd [facility] | [place], [place] | | | | | tumor with | Hospital | [address] | | | | | right leg | [place], [place] | Phone: | | | | | weakness. | [address] | [phone] | | | | | | Phone: | Fax: | | | | | | [phone] | [phone] | +--------+--------+ + + + + Encounter Details +--------+---------+ + + + | Date | Type | Department | Care Team | Description | +--------+---------+ + + + | 05/12/ | Office | Neurosurgery at | Rajinder Luis MD | Thoracic spine tumor | | 2015 | Visit | [facility] | [address] | (Primary Dx); | | | | and Healing [address] | [facility] [place] | Spinal cord tumor | | | | [address] Mailcode: | [address] | | | | | [facility] | [phone] | | | | | Health and Healing, | | | | | | [facility] | | | | | | Floor [place], [place] | | | | | | [address] | | | | | | [phone] | | | +--------+---------+ + + + [...] in this enc ounter Plan of Treatment +--------+ + + + + | Date | Type | Specialty | Care Team | Description | +--------+ + + + + | 06/30/ | Procedure | Radiology | | | | 2019 | Pass | | | | +--------+ + + + + | 12/10/ | Appointment | Radiology | Raegan Doss, | | | 2019 | | | PAAndrewC [address] | | | | | | [place], [place] | | | | | | [address] | | | | | | [phone] | | | | | | | | +--------+ + + + + | 12/10/ | Office | Neurological Surgery | April Beck MD | | | 2019 | Visit | | [address] [facility] | | | | | | [address] | | | | | | [place], [place] | | | | | | [address] | | | | | | [phone] | | | | | | | [...]
--- OUTSIDE RECORDS SUMMARY | ~2019-11-28 | XMS | Encounter Summary ---
Demographics + + + | Address | [address] | | | [place] [address] | + + + | Home Phone [...] Author + + + | Author | [facility] | + + + | Organization | [facility] | + + + | [...] Team Providers + +------+ + | Care Vp Clinical Name | Role | Phone | + +------+ + | Damir Sy MD | PCP | | + +------+ + Encounter Details +--------+--------+ + + + | Date | Type | Department | Care Team | Description | +--------+--------+ + + + | 06/26/ | Intake | Transfer Center | | N/A | | 2019 | | [address] | | | | | | Marla Abdul [place], | | | | | | [place] [address] | | | +--------+--------+ + + + [...] | | | | | | [place], [place] | | | | | | [address] | | | | | | [phone] | | | | | | | | +--------+ + + + + | 12/10/ | Office | Neurological Surgery | April Beck MD | | | 2020 | Visit | | [address] | | | | | | [address] | | | | | | [place], [place] | | | | | | [address] | | | | | | [phone] | | | | | | | | +--------+ + + + + documented as of this encounter Visit Diagnoses Not on filedocumented in this encounter"
--- OUTSIDE RECORDS SUMMARY | ~2019-11-28 | XMS | Encounter Summary ---
Demographics + + + | Address | [address] | | | [place] [address] | + + + | Home Phone [...] Team Providers + +------+ + | Care Bass Mechanism Maker Name | Role | Phone | [...] | [address] | [place], | | | | | Mailcode: CH6A | [place] [address] | | | | | [place], [place] | | | | | | [address] | | | | | | [phone] | | | +--------+ + + + [...] | [place] [facility] [place] | | | | | | [address] | | | | | | [phone] | | | | | | | | +--------+ + + + + | 12/10/ | Office | Neurological Surgery | April Beck MD | | | 2020 | Visit | | [address] | | | | | | [address] | | | | | | [place], [place] | | | | | | [address] | | | | | | [phone] | | | | | | | [...] | + +--------+ + + + | PORT PATROL OFFICER CYTOLOGY (PAP) | Routin | 11/13/2016 | | Results for this | | | e | 2:53 PM | | procedure are in the | | | | PDT | | results section. | + +--------+ + + + documented in this encounter Results PORT PATROL OFFICER CYTOLOGY (PAP) (11/13/2016 2:53 PM PDT) + + + + + + | Component | Value | Ref Range | Performed | Pathologist | | | | | At | Signature | + + + + + + | PORT PATROL OFFICER | Patient:ANAID, | | TUALITY/HIL | | | CYTOLOGY | [facility] | | [facility] | | | | | | | | | | | | | | | | | | | | | | | | | | | | Pathology Reports | | | | | | Accession: | | | | | | [id number] | | | | | | | [...] MD | | | | | | Interviewing Clerk | | | | | | Cytology [...] [place] | | | LAB | | [address] | | + + + + + | BR[facility] | [address] | [place], [place] | | | LAB | | [address] | | + + + + + [...] COMBO2 | | | | | | Assay([employer] | | | | | | [...] | | | | | | Mnemonic: [id number] | | | | | | DIAGNOSTICS | | | | | | [place] [id number] | | | | | | [address] [facility], | | | | | | [place] [address]CA[address] | | | | | | [...] [place] | | | LAB | | [address] | | + + + + + | [facility] | [address] | [place], [place] | | | LAB | | [address] | | + + + + + documented in this encounter Visit Diagnoses Not on filedocumented in this encounter"
--- OUTSIDE RECORDS SUMMARY | ~2019-11-28 | XMS | Encounter Summary ---
Demographics + + + | Address | [address] | | | [place] [address] | + + + | Home Phone | | + + + | Preferred Language | Unknown | + + + | Marital Status | Single | + + + | Christianity Affiliation | NON | + + + | Race | White | + + + | Ethnic Group | Not or | + + + Author + + + | Author | [facility] | + + + | Organization | [facility] | + + + | Address [...] Team Providers + +------+ + | Care Operations Supervisor Chemical Cleaning Name | Role | Phone | + [...] | 2014 | on | AMBULATORY [address] | YESY [place] | | | | | [address] | [address] | | | | | Mailcode: CH6A | [facility] | | | | | [place], [place] | [place], [place] | | | | | [address] | [address] | | | | | [phone] | | | +--------+ + + + [...] | | 2019 | | | [place] [address] | | | | | | [place], [place] | | | | | | [address] | | | | | | [phone] | | | | | | | | +--------+ + + + + | 12/10/ | Office | Neurological Surgery | April Beck MD | | | 2020 | Visit | | [address] | | | | | | [address] | | | | | | [place] | | | | | | [address] | | | | | | [phone] | | | | | | | | +--------+ + + + + documented as of this encounter Visit Diagnoses Not on filedocumented in this encounter"
--- OUTSIDE RECORDS SUMMARY | ~2019-11-28 | XMS | Encounter Summary ---
Demographics + + + | Address | [address] | | | [place] [address] | + + + | Home Phone [...] Providers + +------+ + | Care Medical Representative Name | Role | Phone | + [...] | Event | [address] | [address] | | | | | [facility] | [address] | | | | | Hospital Admitting | [place], [place] | | | | | Desk Located on the | [address] | | | | | 9th floor | [phone] | | | | | [place], [place] | | | | | | [address] | Raegan Kaufman, | | | | | | ,PhD [address] | | | | | | [address] | | | | | | [place], [place] | | | | | | [address] | | | | | | [phone] | | | | | | | [...] IV | (painful with flush) | PhD CHARLEI | RN | +--------+ + + + [...] | | | | | | [place], [place] | | | | | | [address] | | | | | | [phone] | | | | | | | | +--------+ + + + + | 12/10/ | Office | Neurological Surgery | April Beck MD | | | 2019 | Visit | | [address] | | | | | | [address] | | | | | | [place], [place] | | | | | | [address] | | | | | | [phone] | | | | | | | [...] 6:27 | | | | | Starting [facility] 05/13/15 at 1827, | | PM PST | | | | | Until [facility] 05/13/15 at 1945, | | | | | | | sedation | | | | | | + +-------+ +--------+---+---+ +---+---+ | | | +---+---+ + + + +---+---+---+ | lactated ringers IV | given by | 05/13/20 | | | | | INTRAPROCEDURE CONTINUOUS PRN, | | 15 7:12 | | | | | Starting [facility] 05/13/15 at 1500, | anesthes | PM PST | | | | | Until [facility] 05/13/15 at 1945 | iology | | [...]
--- OUTSIDE RECORDS SUMMARY | ~2019-11-28 | XMS | Encounter Summary ---
Demographics + + + | Address | 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 | | | | [phone] | | (dos: )) | +--------+ + [...] | | | | | [place] [facility] [place] | | | | | | [address] | | | | | | [phone] | | | | | | | | +--------+ + + + + | 12/10/ | Office | Neurological Surgery | April Beck MD | | | 2019 | Visit | | [address] | | | | | | [address] | | | | | | [facility] [place] | | | | | | [address] | | | | | | [phone] | | | | | | | | +--------+ + + + + documented as of this encounter Visit Diagnoses Not on filedocumented in this encounter"
--- OUTSIDE RECORDS SUMMARY | ~2019-11-28 | XMS | Encounter Summary ---
Demographics + + + | Address | [address] | | | [place] [address] | + + + | Home Phone | | + + + | Preferred Language | Unknown | + + + | Marital Status | Single | + + + | Samaritan Affiliation | NON | + + + | Race | White | + + + | Ethnic Group | Not or | + + + Author + + + | Author | [facility] | + + + | Organization | [facility] | + + + | Address | [...] Team Providers + +------+ + | Care Lime Kiln Worker Name | Role | Phone | + +------+ + | Tiff ChapinP | PCP | | + +------+ + Encounter Details +--------+ + + + + | Date | Type | Department | Care Team | Description | +--------+ + + + + | 07/13/ | Litigation Coordinator | Neurosurgery at | Raegan Doss, | | | 2016 | | [facility] [address] | [facility] [address] | | | | | [place] Mailcode: CH8N | Ave [place], [place] | | | | | [facility] | [address] | | | | | and [facility], | [phone] | | | | | [facility] | | | | | | Floor [facility] [place] | | | | | | [address] | | | | | | [phone] | | | +--------+ + + + [...] | | | | | | [place], [place] | | | | | | [address] | | | | | | [phone] | | | | | | | | +--------+ + + + + | 12/10/ | Office | Neurological Surgery | April Beck MD | | | 2019 | Visit | | [address] | | | | | | [address] | | | | | | [place] | | | | | | [address] | | | | | | [phone] | | | | | | | | +--------+ + + + + documented as of this encounter Visit Diagnoses Not on filedocumented in this encounter"
--- OUTSIDE RECORDS SUMMARY | ~2019-11-28 | XMS | Encounter Summary ---
Demographics + + + | Address | [address] | | | [place] [address] | + + + | Home Phone | | + + + | Preferred Language | Unknown | + + + | Marital Status | Single | + + + | Restoration Affiliation | NON | + + + [...] Providers + +------+ + | Care Hand Kiss Setter Name | Role | Phone | [...] Request | | Radiology | Diagnoses | Sandip | | | | | | Malignant | Tony Tomlinson | | | | | | neoplasm of | MD [address] | | | | | | spinal cord | [address] | | | | | | (HCC) | [address] | | | | | | Glioneuronal | Rd | | | | | | tumor | [place], [place] | | | | | | Procedures | [address] | | | | | | MRI SPINE | Phone: | | | | | | THOR / LUMB | [phone] | | | | | | WWO CONTRAST | Fax: | | | | | | | [phone] | | + +--------+ + + + + Consultation (Routine) +--------+--------+ + + + + | Status | Reason | Specialty | Diagnoses / | Referred By | Referred To | | | | | Procedures | Contact | Contact | +--------+--------+ + + + + | Closed | | Neurology | Diagnoses | Sandip | [facility] | | | | | | Tony Tomlinson | On[address] | | | | | Glioneuronal | MD [address] | [facility] | | | | | tumor | [address] | Loop | | | | | Procedures | [address] | Physician's | | | | | CONSULT TO | Rd | [place], [address]nd | | | | | NEUROLOGY | [place], [place] | floor | | | | | | | [place], [place] | | | | | | Phone: | [address] | | | | | | [phone] | Phone: | | | | | | Fax: | [phone] | | | | | | [phone] | Fax: | | | | | | | [phone] | +--------+--------+ + + + + Consultation (Routine) +--------+--------+ + + + + | Status | Reason | Specialty | Diagnoses / | Referred By | Referred To | | | | | Procedures | Contact | Contact | +--------+--------+ + + + + | Closed | | Radiation | Diagnoses | Toby, | Eva, | | | | Oncology | | Rajinder Fisher MD | Noe Fisher MD | | | | | Glioneuronal | [address] | [address] [facility] | | | | | tumor | Ave | [address] | | | | | Procedures | [place], [place] | [place], | | | | | CONSULT TO | [address] | [place] | | | | | RADIATION | Phone: | [address] | | | | | ONCOLOGY | [phone] | Phone: | | | | | | Fax: | [phone] | | | | | | [phone] | Fax: | | | | | | | [phone] | +--------+--------+ + + + + Encounter Details +--------+ + + + + | Date | Type | Department | Care Team | Description | +--------+ + + + + | 10/11/ | Documentati | Neurosurgery at | Tony Mancilla | | | 2019 | on | [facility] [address] Fisher MD [address] [facility] | | | | | [place]weth[place] Mailcode: CH8N | [facility] | | | | | [facility] | [place], [place] | | | | | and Healing, | [address] | | | | | [facility] | [phone] | | | | | [place], [place] | | | | | | [address] | | | | | | [phone] | | | +--------+ + + + [...] | | | | | | [place] [facility] [place] | | | | | | [address] | | | | | | [phone] | | | | | | | | +--------+ + + + + | 12/10/ | Office | Neurological Surgery | April Beck MD | | | 2019 | Visit | | [address] | | | | | | [address] | | | | | | [place], [place] | | | | | | [address] | | | | | | [phone] | | | | | | | | +--------+ + + + + + +---------+--------+ + + | Name | Type | Priori | Associated Diagnoses | Order Schedule | | | | ty | | | + +---------+--------+ + + | MRI SPINE THOR / | Imaging | Routin | Malignant neoplasm | Expected: | | LUMB WWO CONTRAST | | e | of spinal cord | 10/11/2018, Expires: | | | | | (HCC) Glioneuronal | 11/11/2019 | | | | | tumor | | + +---------+--------+ + + documented as of this encounter Visit Diagnoses + + | Diagnosis | + + | Glioneuronal tumor - Primary | + + | 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
--- OUTSIDE RECORDS SUMMARY | ~2019-11-28 | XMS | Encounter Summary ---
Demographics + + + | Address | [address] | | | [place] [address] | + + + | Home Phone | | + + + | Preferred Language | Unknown | + + + | Marital Status | Unknown | + + + | Congregation Affiliation | Unknown | + + + | Race | Unknown | + + + | Ethnic Group | Unknown | + + + Author + + + | Author | [facility] | | | and [place] | + + + | Organization | [facility] | | | and [...] Apt | | | | | # [place], [place] | | | | | [address] | | + + + + + Care Team Providers + +------+ + | Care Software Project Engineer Name | Role | Phone | + +------+ + | Tiff Chapin NP | PCP | | + +------+ + Encounter Details +--------+ + + + + | Date | Type | Department | Care Team | Description | +--------+ + + + + | 07/12/ | Emergency | [facility] | | [facility] [address] | | | | | | [address] [place], [place] | | | | | | [address] | | | | | | [phone] | | | +--------+ + + + [...] as of this encounter Plan of Treatment + +------+--------+ + + | Name | Type | Priori | Associated Diagnoses | Date/Time | | | | ty | | | + +------+--------+ + + | ED INFORMATION | LYNN | Routin | | 07/12/2017 11:20 AM | | EXCHANGE | | e | | PST | + +------+--------+ + + documented as of this encounter Procedures + +--------+ + + + | Procedure Name | Priori | Date/Time | Associated Diagnosis | Comments | | | ty | | | | + +--------+ + + + | ED INFORMATION | Routin | 07/12/2017 | | | | EXCHANGE | e | 11:20 AM | | | | | | PST | | | + +--------+ + + + +---+--------+ | | | | | Proced | | | ure | | | Note - | | | Ever, | | | Lab In | | | | | | Hlseve | | | n - | | | | | | 2017 | | | 11:21 | | | AM PST | | | | | | Format | | | ting | | | of | | | this | | | note | | | might | | | be | | | differ | | | ent | | | from | | | the | | | origin | | | al.EVER | | | E?NOTI | | | FICATI | | | ON?01/ | | | 04/201 | | | 8 | | | 11:19? | | | EITELG | | | ORGE, | | | RAELEE | | | | | | T?MRN: | | | | | | [id number] | | | [id number] | | | D Care | | | | | | Guidel | | | calos | | | from | | | [place] | | | | | | Health | | | and | | | Scienc | | | e | | | Univer | | | sityLa | | | st | | | Update | | | d: | | | 8/3/17 | | | 11:58 | | | AM | | | [facility] | | | Emerge | | | ncy | | | Depart | | | mentSu | | | ggeste | | | d Care | | | | | | Recomm | | | endati | | | onsAut | | | hor: | | | Cecily | | | Najera, | | | LCSWAu | | | thor | | | Phone | | | Number | | | : | | | [phone] | [phone] | | | Latest | | | | | | Update | | | : | | | 8/3/20 | | | 17Medi | | | velma:- | | | 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 | | | Per | | | chart, | | | | | | ptdecl | | | calos | | | counse | | | ling | | | at | | | this | | | time.C | | | linica | | | l | | | Contex | | | t:-Pat | | | ient | | | has | | | had | | | multip | | | le | | | spine | | | surger | | | ies, | | | has | | | not | | | been | | | able | | | to | | | work, | | | receiv | | | esSSI | | | and | | | food | | | stamps | | | .Commu | | | nity | | | Suppor | | | ts-Ann Marie | | | thom | | | care | | | provid | | | er/cli | | | jovita: | | | Dr. | | | Meliss | | | a | | | Karma | | | Arguel | | | lo, | | | Eureka | | | ia | | | Armond | | | Medica | | | l | | | Center | | | , | | | [phone] | | | [phone] | | | - | | | Neuros | | | urgery | | | : | | | OSHU, | | | Rajinder | | | Luis, | | | MD | | | and | | | Raegan | | | | | | Doss, | | | PA - | | | [phone] | | [phone] | | | -Insur | | | ance | | | care | | | coordi | | | nator: | | | | | | CareOr | | | egon, | | | [phone] | | | [phone] | | | -Housi | | | ng: | | | living | | | in | | | duplex | | | with | | | mother | | | Judit | | | and 2 | | | y/o | | | daught | | | er | | | Joey | | | inCorn | | | elius. | | | ??Crit | | | eria | | | met | | | PDMP | | | Has | | | Care | | | Guidel | | | inesCa | | | re | | | Provid | | | ersPro | | | vider | | | PRC | | | Type | | | Phone | | | Fax | | | Servic | | | e | | | Dates | | | LEGACY | | | GOOD | | | [facility] | | | [facility] | | | MEDICA | | | L | | | CENTER | | | | | | Primar | | | y Care | | | | | | Curren | | | t | | | MELISS | | | A | | | ARGUEL | | | LO-BEL | | | LI | | | Primar | | | y Care | | | (503) | | | | | | [phone] | | | 64 | | | (503) | | | [phone] | | | 71 | | | Curren | | | t | | | ARGUEL | | | LO-BEL | | | LI, | | | MELISS | | | A | | | Primar | | | y Care | | | (503) | | | | | | [phone] | | | 64 | | | (503) | | | [phone] | | | 71 | | | Curren | | | t | | | VIRGIN | | | IA | | | ARMOND | | | | | | WALLACE | | | IUS | | | Primar | | | y Care | | | (503) | | | | | | [phone] | | | 64 | | | (503) | | | [phone] | | | 71 Apr | | | 10, | | | 2017 - | | | | | | Curren | | | t | | | Recent | | | | | | Emerge | | | ncy | | | Depart | | | ment | | | Visit | | | [place] | | | yAdmit | | | Date | | | Facili | | | ty | | | City | | | State | | | Type | | | Major | | | Type | | | Diagno | | | ses or | | | Chief | | | | | | Compla | | | int | | | Dev 4, | | | 2018 | | | [place] | | | [place] | | | [place] | | | [place] | | | [place] | | | Emerge | | | ncy | | | Emerge | | | ncy | | | Foot | | | injury | | | Rashad | | | 6, | | | 2017 | | | [place] | | | | | | Health | | | and | | | Scienc | | | e | | | Univer | | | sity | | | [place] | | | [place] | | | Emerge | | | ncy | | | Emerge | | | ncy | | | | | | 10,800 | | | . | | | transf | | | er | | | 18,400 | | | . | | | [place] | | | sm of | | | unspec | | | ified | | | behavi | | | or of | | | bone, | | | soft | | | tissue | | | , and | | | skin | | | | | | 18,400 | | | . | | | [place] | | | sm of | | | unspec | | | ified | | | behavi | | | or of | | | endocr | | | ine | | | glands | | | and | | | other | | | parts | | | of | | | nervou | | | s | | | system | | | Rashad | | | 6, | | | 2017 | | | [place] | | | y | | | Commun | | | ity H. | | | | | | [place] | | | [place] | | | Emerge | | | ncy | | | Emerge | | | ncy | | | 1. | | | Fever, | | | | | | unspec | | | ified | | | 1. | | | System | | | ic | | | inflam | | | matory | | | | | | respon | | | se | | | syndro | | | me | | | (SIRS) | | | of | | | non-in | | | fectio | | | us | | | origin | | | | | | withou | | | t | | | acute | | | organ | | | dysfun | | | ction | | | 2. | | | Weakne | | | ss | | | 3. | | | Neopla | | | sm of | | | uncert | | | ain | | | behavi | | | or of | | | spinal | | | cord | | | 4. | | | OTHER | | | ABNORM | | | AL | | | FINDIN | | | GS ON | | | MICROB | | | IOLOGI | | | VELMA | | | EXAMIN | | | ATION | | | OF | | | URINE | | | | | | Recent | | | | | | Inpati | | | ent | | | Visit | | | [place] | | | yAdmit | | | Date | | | Facili | | | ty | | | City | | | State | | | Type | | | Major | | | Type | | | Diagno | | | ses or | | | Chief | | | | | | Compla | | | int | | | Rashad | | | 13, | | | 2017 | | | Legacy | | | Good | | | Samari | | | alvarez | | | [place] | | | [place] | | | Inpati | | | ent | | | Rehab | | | | | | Inpati | | | ent | | | | | | Spinal | | | Tumor | | | | | | Resect | | | ion | | | Rashad 6, | | | 2017 | | | [place] | | | | | | Health | | | and | | | Scienc | | | e | | | Univer | | | sity | | | [place] | | | [place] | | | Neuro | | | Surger | | | y | | | Inpati | | | ent | | | | | | 18,400 | | | . | | | Ne[place]la | | | sm of | | | unspec | | | ified | | | behavi | | | or of | | | bone, | | | soft | | | tissue | | | , and | | | skin | | | | | | 18,400 | | | . | | | Neopla | | | sm of | | | unspec | | | ified | | | behavi | | | or of | | | endocr | | | ine | | | glands | | | and | | | other | | | parts | | | of | | | nervou | | | s | | | system | | | E.D. | | | Visit | | | Count | | | (12 | | | mo.)Fa | | | cility | | | | | | Visits | | | | | | [place] | | | | | | Health | | | and | | | Scienc | | | e | | | Univer | | | sity 1 | | | | | | [facility] | | | [place] | | | | | | Hospit | | | al 1 | | | [place] | | | y | | | Commun | | | ity | | | Hospit | | | al 1 | | | Total | | | 3 | | | Note: | | | Visits | | | | | | indica | | | te | | | total | | | known | | | visits | | | . | | | PDMP | | | Report | | | Rx | | | Detail | | | s (6 | | | Mo.)Fi | | | ll | | | Date | | | Drug | | | Descri | | | ption | | | Qty. | | | Prescr | | | iber | | | CS MED | | | | | | 2017-0 | | | 7-22 | | | HYDROM | | | ORPHON | | | E 4 MG | | | | | | TABLET | | | 40 | | | Tony | | | Lee 2 | | | | | | 213.33 | | | 3 | | | 2017-0 | | | 7-20 | | | LORAZE | | | FAN | | | 0.5 MG | | | | | | TABLET | | | 30 | | | Jennif | | | er | | | Pattie | | | 4 0 | | | Rx | | | [place] | | | y (12 | | | Mo.)Me | | | tric | | | Count | | | CS | | | II-V | | | Rx 2 | | | CS-II | | | Rx 1 | | | Quanti | | | ty | | | Dispen | | | sed 70 | | | | | | Unique | | | | | | Prescr | | | ibers | | | 2 | | | Unique | | | | | | Pharma | | | cies 1 | | | | | | Benzos | | | 1 | | | Opioid | | | s 1 | | | Long | | | Acting | | | | | | Opioid | | | s 0 | | | The | | | above | | | inform | | | ation | | | is | | | provid | | | ed for | | | the | | | sole | | | purpos | | | e of | | | patien | | | t | | | treatm | | | ent. | | | Use of | | | this | | | inform | | | ation | | | beyond | | | the | | | terms | | | of | | | Data | | | Sharin | | | g | | | Memora | | | ndum | | | of | | | Unders | | | tandin | | | g and | | | Licens | | | e | | | Agreem | | | ent is | | | | | | prohib | | | ited. | | | In | | | certai | | | n | | | cases | | | not | | | all | | | visits | | | may | | | be | | | repres | | | ented. | | | | | | Consul | | | t the | | | aforem | | | ention | | | ed | | | facili | | | ties | | | for | | | additi | | | onal | | | inform | | | ation. | | | ? | | | 2018 | | | [employer]le[employer] | | | tive | | | Medica | | | l | | | [employer] | | | logies | | | , [employer] | | | - | | | [place] | | | [place] | | | [place], | | | [place] - | | | [email or web address] | | | ollect | | | ivemed | | | icalte | | | [email or web address] | | | | +---+--------+ documented in this encounter Visit Diagnoses Not on filedocumented in this encounter"
--- OUTSIDE RECORDS SUMMARY | ~2019-11-28 | XMS | Encounter Summary ---
Demographics + + + | Address | [address] | | | [place] [address] | + + + | Home Phone [...] Team Providers + +------+ + | Care Automation Engineering Technician Name | Role | Phone | [...] + + + + | 09/08/ | Telephone | Neurosurgery at | Rajinder Luis MD | Fever (102.2) | | 2016 | | [facility] | [address] | | | | | and Healing [address] | [place], [place] | | | | | [address] Mailcode: | [address] | | | | | [address] [facility] | [phone] | | | | | Health and Healing, | | | | | | Building [address] | | | | | | Floor [place], [place] | | | | | | [address] | | | | | | [phone] | | | +--------+ + + + [...] | | | | | | [place], [place] | | | | | | [address] | | | | | | [phone] | | | | | | | | +--------+ + + + + | 12/10/ | Office | Neurological Surgery | April Beck MD | | | 2020 | Visit | | [address] [facility] | | | | | | [address] | | | | | | [place] | | | | | | [address] | | | | | | [phone] | | | | | | | | +--------+ + + + + documented as of this encounter Visit Diagnoses Not on filedocumented in this encounter"
--- OUTSIDE RECORDS SUMMARY | ~2019-11-28 | XMS | Encounter Summary ---
Demographics + + + | Address | [address] | | | [place] [address] | + + + | Home Phone [...] Team Providers + +------+ + | Care Carbon Plant Grinder Name | Role | Phone | [...] LAMINECTOMY | | 2014 | | [facility] | [address] | AND | | | | [facility] | [place], [place] | | | | | Hospital Admitting | [address] | | | | | Desk Located on the | [phone] | | | | | 9th floor | | | | | | [place], [place] | | | | | | [address] | | | +--------+---------+ + + + [...] Rajinder Luis MD PCP: PATRIC Todd Service: [facility] Neurosurgery Diagnoses Principal Final Diagnosis: Intramedullary spinal [...] was felt appropriate for discharge to [facility] (Colette ROBERTS, Stephan [facility]) on 05/20/2015, and the patient and/or family [...] completed No Destination: Destination: Inpatient Rehab - [facility] Condition on Discharge Good Discharge Follow Up - Facility MD to follow Facility MD to follow patient. FOLLOW-UP You have a wound check appointment with Raegan Doss PA-C at 11:30am on 05/31. This will be on the 8th floor at the [facility] on the [facility] located at [address] [place] [address]. Please call [phone] if you have any questions or conc erns before your appointment time. If you are still admitted to [facility] at this time, it is okay to cancel this appointment as thais costa as a provider at that facility can examine your incision. Please then make an appointmen t with Raegan Doss for 1 month following your discharge from [facility]. PCP:PATRIC Todd When: Please follow-up with [...] 0500) Discharge Patient To: Interhospital Transfer - [facility] Does patient have a planned readmission: No Discharge Summary Completed?: Yes. 05/20/2015 Discharging Provider: Raegan Doss PA-C Date Completed: 05/20/2015 Time Completed: 7:50 AM Discharging Attending: Rajinder Luis MD [facility] [address] [address]/[facility] [place] [address] documented in this encounter Progress Notes Raegan [...] al sides of foot. Motor: Tri Bi Talent Consultant HF KE APF ADF Left 5 5 [...] duplex neg for DVT. Dispo: To [facility] (Stephan [facility]) today. Raegan Doss PA-C [facility] [address] [place] [address] Drive [facility]/[place] [address] dams, PHILIPPE Mena - 05/19/2015 6:52 AM PST Neurosurgery Progress Note Hospital Day:7 Author; Raegan Doss PA-C Attending Physician: Rajinder Lius MD Interval Hx: -Pt denies having any [...] Intake/Output Summary (Last 24 hours) at 05/19/15 0680 Last data filed at 05/19/15 033 Gross [...] rest of the LLE. Motor: Tri Bi Talent Consultant HF KE APF ADF Left 5 5 [...] CM for IPR placement. Raegan Doss PA-C [facility] [address] [address]/[address] [place] [address] dams, PHILIPPE Mena - 05/18/2015 6:52 AM [...] Delivery Device: None (room ai r) (05/18/15 3979) 24 Hour Vital Min/Max: Systolic (24hrs), Av [...] intact at pre-op baseline. Motor: Bi Tri Talent Consultant HF KE APF ADF Left 5 5 [...] CM for IPR placement. Raegan Doss PA-C [facility] [address] [address]/[place] [address] dams, PHILIPPE Mena - 05/17/2015 8:48 AM [...] at pre-op baseline. Motor: Delt Tri Bi Talent Consultant HF KE APF ADF Left 5 5 [...] CM for IPR placement. Raegan Doss PA-C [place] [address] [address]/[place] [address] Cesar Cox MD - 02/2015 9:39 AM [...] 05/14/2015 ICU Attending: MD Sarina Admit Service: [facility] ICU Day # 2 POD # 1 HPI: Matt Fagan is a 24 y.o. 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 She reports that her RLE numbness has worsened si nje neurosurgery last saw her. She also endorses [...] information of next of kin: Judit mother [phone] Disposition: Acute care Code: Full This patient has been staffed with Lesly Branch MD , attending physician, who agrees with the above assessment and plan. [facility] DEPARTMENT: [id number] ICU NEURO Place of Service:- Inpatient Date of Service: 05/14/2015 CSN: [id number] Lab Results Component Value Date WBC 23.58 [...] and check patient later Yokasta Randall PGY2 [id number] [facility] Lesly Lang MD - 8:25 AM [facility] Author: Lesly Branch MD Briefly, this [...] due to CSF hai k, cord injury, NH, UTI, acute blood loss anemia, DVT 1. [...] DVT proph with SCDs. Lesly Branch M.D. Print Press Operator, Neurology and Emergency Medicine I spent 20 minutes in direct care of this patient with over 50% spent at the patient s b eside, reviewing data, discussing the patient s care with other medical staff, charting, a nd discussion with treatment decision maker. [facility] DEPARTMENT: [id number] CRITICAL CARE Place of Service: Inpatient Date of Service: 05/14/2015 [facility]: [id number] Suggested Level of Care: 06038 - SUBSEQUENT HOSPITAL CARE,LEVEL III impson, Polly [...] the or iginal. NSICU Neuroscience ICU Attending Marble Mason Note I have seen and evaluated Matt [...] and coordination of care Cathy Cespedes MD,PhD [facility] DEPARTMENT: [id number] ICU NEURO Place of Service:- Inpatient Date of Service: 05/13/2015 CSN: [id number] Suggested Modifier: Resident involved Suggested CPT: TO REINSURANCE CLAIM ANALYST Gilbert Collins MD,MPH - 05/13/2015 8:49 PM [...] and entire foot. Motor: Tri Bi WE Talent Consultant HF KE APF ADF Left 5 5 [...] dilaudid available prn pain Raegan Doss PA-C [facility] [address] [place] [address] Polly Collins MD,MPH - 05/12/2015 7:33 PM [...] | | | | | | [place], [place] | | | | | | [address] | | | | | | [phone] | | | | | | | | +--------+ + + + + | 12/10/ | Office | Neurological Surgery | April Beck MD | | | 2019 | Visit | | [address] | | | | | | [address] | | | | | | [place], [place] | | | | | | [address] | | | | | | [phone] | | | | | | | [...] | | | | of spinal cord ([facility]) | | + +--------+ + + + [...] | | | | of spinal cord ([facility]) | | + +--------+ + +---+ +---+--------+ [...] Attending | | Surgeon: Rajinder Luis MD Chemistry Account Manager(s): Jere Story MD | | Preoperative Diagnosis: [...] | endotracheal anesthesia was induced on the [facility]. Occlusive dressings were | [...] turned back supine on | | the [facility]. She was extubated and she was taken to the recovery area in stable | | condition. At the end of the case, all instrument, sponge, and needle counts were | | correct in 2 iterations. Rajinder Enamorado MD was scrubbed and actively participated | | performing the critical portions of the operation.Raijnder Luis MDJJL/MODLDD: | | 05/15/2015 08:21:01DT: 05/15/2015 08:59:43Job #: [id number] | | | |Rajinder Luis MD | |EZEKIEL/KELSEYL | | | | | | /[id number] | + + MAGNESIUM, PLASMA (05/17/2015 10:09 [...] | + + + + + | [facility] | [address] | [place] [address] | | | SERVICES, CORE | JEAN [...] + | [facility] | [address] | [place] [address] | | | SERVICES, CORE | PARK [...] the MDRD equation recommended by the | [facility] | | National Kidney Disease Education Program. [...] | + + + + + | [facility] | [address] | [place] [address] | | | SERVICES, CORE | JEAN [...] [facility] | [address] | [place] [address] | | | SERVICES, CORE | PARK [...] the MDRD equation recommended by the | [facility] | | National Kidney Disease Education Program. [...] | + + + + + | [facility] | [address] | [place] [address] | | | SERVICES, CORE | PARK [...] [facility] | [address] | [place] [address] | | | SERVICES, CORE | JEAN [...] LABORATORY | [address] | [place] [address] | | | SERVICES, CORE | PARK [...] | + + + + + | [facility] | [address] | [place] [address] | | | NINO LEONARD | JEAN [...] | + + + + + | [facility] | [address] | [place] [address] | | | SERVICES, CORE | PARK [...] | + + + + + | [facility] | [address] | [place] [address] | | | SERVICES, CORE | JEAN [...] the MDRD equation recommended by the | [facility] | | National Kidney Disease Education Program. [...] | + + + + + | [facility] | [address] | [place] [address] | | | SERVICES, CORE | JEAN [...] [facility] | [address] | [place] [address] | | | SERVICES, CORE | PARK [...] the MDRD equation recommended by the | [facility] | | National Kidney Disease Education Program. [...] | + + + + + | [facility] | [address] | [place] [address] | | | NINO LEONARD | [address] | | | + + + + + INTRAOPERATIVE NEURO MONITORING (05/13/2015) + + + | Narrative | Performed At | + + + | Patient Name: Matt Fagan Date of : 1990 | | | Date of Test: 05/13/2015 Place of | | | Service: IP Intra Op (77) [id number] - [id number] INTRAOPERATIVE NEURO | | | MONITORING History: [...] min(s), with modifier GY | | | 81036 - Short Latency EP's Upper AND Lower extremities 14728 - | | | Central Motor EP's [...] 2008 | | | | | | 1;15(19):6939-60. | | | | | | Edison Veloz et al. IDH1 and | | | | | | IDH2 mutations in | | | | | | gliomas. N Engl J Med. | | | | | | 2008Feb | | | | | | 19;360(8):793-835.3. | | | | | | Lewis [...] 2008 | | | | | | Jun;68(12):0247-763. | | | | | | Rogelio [...] # | | | | | | [id number]. It has not | | | | [...] + + + | [facility] | [address] | [place] [address] | | | DIAGNOSTIC | [address] [...] (7q34)break-apart/ | | | | | | [id number] probe set. 50 | | | | [...] | | | | | | Probe(s): [facility] | | | | | | [employer]omics BRAF | | | | | | break-apart (7q34) / | | | | | | [id number] (SA) (7q34) | | | | | | This test was | | | | | | developed and its | | | | | | performance determined | | | | | | by the [facility] | | | | | | Laboratory [...] clinical | | | | | | trichologist.Amended to | | | | | | [...] + + + | [facility] | [address] | [place] [address] | | | DIAGNOSTIC | [address] [...] | A BRAF MUTATION ANALYSIS | | [facility] | | | MUTATION | (EXON [...] | | | | | HRM or Palisades 20% | | | | | | (HRM); 1% (Kvng) | | | | | | >99%HRM: high resolution | | | | | | melting curve | | | | | | analysisSanger: | | | | | | Bi-directional Palisades | | | | | | sequencing with | | | | | | PUFF IRON OPERATOR-clamp for | | | | | | [...] doi: | | | | | | 10.1097/WCO.[id number] | | | | | | 0217.2. Jessica CM, | | | | | | Cheo SRShelton | | | | | | FJ, Jena JS, Mc Ludmila BE, | | | | | | Jacquie AR,Dl GUS, | | | | | | Chuckie HIRED HANDWarren C. 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 | | | | | | Proc Natl Acad Sci U S | | | | | | A. 2011 May | | | | | | 29;109(22):6484-55. | | | | | | Dyson-Estefaniaa [...] | | | | | | S. [id number] mutations | | | | | | are common in | | | | | | pleomorphic | | | | | | xanthoastrocytoma: | | | | | | diagnostic | | | | | | andtherapeutic | | | | | | implications. PLoS One. | | | | | | 2010 | | | | | | 29;6(3):t42414.5. | | | | | | April [...] 2009 | | | | | | Jan;12(7):43130.7. | | | | | | Chance [...] # | | | | | | [id number]. It has not | | | | [...] + + + + | [facility] | [address] | [place] [address] | | | DIAGNOSTIC | [address] [...] with | | | | | | [facility] [place] [facility] | | | | | | [facility] | | | | | | [place]. Please | | | | | | [...] into | | | | | | SALAD CHEF tissue. Tumor cells | | | | [...] block | | | | | | Z6Rltqkvnglrvlgmslaopa | | | | | | stains: see IHC | | | | | | tableNo Electron | | | | | | microscopy | | | | | | performedMolecular | | | | | | genetic studies | | | | | | performedOther Molecular | | | | | | Studies: PCR for BRAF | | | | | | [id number] for BRAF | | | | | [...] | | | | | | Block F6Lagerakpmh: | | | | | | Tumor cells | | | | | | Marker Result | | | | | | CommentGlial | | | | | | Fibrillary Acidic | | | | | | Protein | | | | | | PositiveVimentin | | | | | | PositiveOlig 2 | | | | | | OhvqbkrkIU08 % | | | | | | Positive less than | | | | | | 5%PhosphoHistone 3, | | | | | | mitotic marker | | | | | | NegativeEpithelial | | | | | | Membrane Antigen | | | | | | NegativeATRX(SALAD CHEF and | | | | | | [...] PositiveChromogranin | | | | | | SswvedqjTU89 (HPCA-1) | | | | | | [...] | + + + + + | [facility] | [address] | [place] [address] | | | PATHOLOGY | [address] [...] LABORATORY | [address] | [place] [address] | | | SERVICES, | [address] [...] | + + + + + | [facility] | [address] | [place] [address] | | | SERVICES, | JEAN CARLOS [...] LABORATORY | [address] | [place] [address] | | | SERVICES, CORE | JEAN [...] LABORATORY | [address] | [place] [address] | | | SERVICES, CORE | PARK [...] | + + + + + | [facility] | [address] | [place] [address] | | | SERVICES, CORE | PARK [...] LABORATORY | [address] | [place] [address] | | | NINO LEONARD | JEAN [...] | + + + + + | [facility] | [address] | [place] [address] | | | SERVICES, NINO | JEAN [...]
--- OUTSIDE RECORDS SUMMARY | ~2019-11-28 | XMS | Encounter Summary ---
Demographics + + + | Address | [address] | | | [place] [address] | + + + | Home Phone [...] Team Providers + +------+ + | Care Surgical Oncologist Name | Role | Phone | + [...] THORACIC | | 2018 | | [facility] | [address] | LAMINECTOMIES FOR | | | | Rd [facility] | [place], [place] | TUMOR RESECTION | | | | Hospital Admitting | [address] | | | | | Desk Located on the | [phone] | | | | | 9th floor | | | | | | [place], [place] | | | | | | [address] | | | +--------+---------+ + + + [...] Female who has been followed in the [facility] Neurosurgical c linic for 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 The patient noted new onset of right lower extrem ity weakness on 07/06/2018 and then presented to the hospital for evaluation. Ms. Worrell was transferred to [facility] on 07/06/2018. A MRI showed cord dissection [...] from the beginning. Dura was closed with Kake-Thaddeus, tacked up with 4-0 Nurol on sutures. [...] patient was felt appropriate for discharge to [facility] (Inpatient [facility]hab) on 07/12/2018, and the patient and/or family members agree with this course of action. The janeth rayamirela has a follow up appointment in the [facility] Neurosurgery Spine clinic on 07/31/2018. Medication List [...] on the 1 2th floor at the [facility] on the [facility] located at [address] [place] [address]. Please call [phone] if you have any questions or concerns bef ore your appointment time. Code Status for Facility Status: Full Code Discharge Follow Up - Facility MD to follow Facility MD to follow patient. Future Appointments Provider Department Dept Phone Center 07/31/2018 1:00 PM Raheem Doss Spine [facility] at [facility] [phone] SPC Contact information for after-discharge care Discharge Destination [facility] [place] . Specialty: Inpatient Rehabilitation Facility Contact information [address] [address] Warning Symptoms and Signs Please call the Neurosurgery clinic at [phone] with any questions Sunday to Sunday 8 A M - 4 PM. After hours, call [facility] at [phone] and ask to speak with the Neurosurgery resi dent occupational health physiotherapist if you have any of the following: - Difficulty breathing or shortness of breath; - Excessive bleeding or drainage from incision sites; - Fevers, chills, sweats; - Persistent nausea or vomiting; - Change in mental status. [facility] Neurosurgery Service Pain Policy [facility] Neurosurgery Service Pain Policy: Our clinic can prescribe pain medication for up to 6 weeks post-op. All refills must be requested through a the [facility] Neurosurgery Clinic. Patients must give the Outpatient [...] Intake/Output Summary (Last 24 hours) at 07/12/18 07 Last data filed at 07/12/18 0400 Gross [...] - 1.10 mg/dL 0.45 (L) EGFR - [facility] Latest Ref Range: >60 mL/min >60 EGFR NON -[facility] Latest Ref Range: >60 mL/min >60 GLUCOSE, [...] edema, deformity Psychiatric: Appropriate and cooperative Assessment/Plan: farhana Parsons Rylan is a 27 y.o. Female with low [...] plan with case management. CALEB HENRY PA-C [facility] [address] [address] [address] MEDICATIONS Current Facility-Administered Medications Medication acetaminophen (TYLENOL) [...] 2 tablet traZODone (DESYREL) dose 75 mg daor, Raheem Nieves PA-C - 07/11/2018 8:39 AM [...] Pending acceptance at [facility]. RAHEEM DOSS PA-C [facility] [address] [place] [address] dams, PHILIPPE Mena - 07/10/2018 8:17 AM PST Neurosurgery Progress Note Hospital Day:4 Author; RAHEEM DOSS PA-C Attending Physician: Rajinder Luis MD Interval Hx: -Patient reports improvement in pain control this AM, currently at a 5/10. She is happy wit h the changes the APS team made. -She would like to hold on removing her daniels catheter until she can get to [facility] ([facility]) as th ey manage neurogenic bladder and training well over there. 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 RAHEEM DOSS PA-C [facility] [address] [place] [address] Mook Álvarez ra, MD - 07/09/2018 9:09 [...] 1500 In: 85 [I.V.:85] Out: - 07/08 07 - 07/09 0700 In: 7077.5 [P.O.:980; I.V.:5957.5] [...] WORRELL Routine Cultures PROCEDURE: Strep Screen Culture [[id number]: 11/05/2017 16:4 4 PDT P1] SOURCE: Throat STARTED: 11/05/2017 20:3 9 PDT FREE TEXT SOURCE: BODY SITE: FINAL REPORTS Final Report [] Verified Date/Time: 11/07/2017 11:07 PDT No beta Strep isolated. Order Comments O1: Strep Screen Culture (CULTURE THROAT STREP SCREEN - CGA - Ordering-Phys: PRINCESS GRAVES) Location: [facility] Performing Locations P1: This test was performed at: [facility] Lab Lab Results Component Value Date APTT [...] kg/(m^2) AAOx3 PERRL, EOMI, FS, TML RUE: 5/ D/B/T/HG LUE: 5/5 D/B/T/HG RLE: 1/5 HF/KE 3/5 DF 4/5 EHL/PF LLE: 1/ HF 2/5 KE 3/5 DF 5/5 EHL/PF [...] Please contact the Neurosurgery resident on-call pager [phone] with questions or concerns. Olinda Araya MD Resident Physician Department of Neurosurgery Lucinda Valencia PA-C - 07/09/2018 5:50 AM PSTFormatting of this note might be diffe rent from the original. . Neuroscience Intensive Care Unit Team Progress Note NSICU ASSIGNED #[id number] ICU Admission Reason Most Recent Value ICU [...] Provider Role Specialty Ipt Critical Care Nsicu #[id number] Treatment Team Ipt Neurosurgery #[id number] Treatment Team Neurological Surgery Patient Lines/Drains/Airways Status [...] Date of Service: 07/09/2018 LUCINDA CASTAÑEDA PA-C [facility] DEPARTMENT: [facility] ICU NEURO Place of Service:- Inpatient CSN: [id number] Suggested Modifier: None Suggested CPT: TO PRESSURE WASHER Author:LUCINDA CASTAÑEDA PA-C [address] [id number] signed by Lucinda Castañeda PA-C at 07/09/2018 [...] Speech fluent PERRL EOMI Face symmetric RUE: 11/10 D/B/T/HG LUE: 11/10 D/B/T/HG RLE: 07/13 HF/KE 3/5 DF/EHL/PF LLE: 08/13 HF/KE 3 DF/EHL/PF Sensation grossly intact, able to identify [...] Please contact the Neurosurgery resident on-call pager [phone] with questions or concerns. Kamaljit Rios M.D., M.P.H. R2 Resident Physician Neurological Surgery Pager: [phone] signed by Kamaljit Rios MD,MPH at 07/08/2018 3:04 PM PSTAda, Raheem Nieves PA-C - 07/08/2018 7:21 AM [...] Imaging: MRI SPINE THORACIC WO CONTRAST Order: [id number] Performed: 07/07/2018 15:00 Status: Final result Visible [...] MG/ML) INT RAVENOUS SOLUTION 13 mL (accession [id number]), GADOTERATE MEGLUMINE 0.5 MMOL/ML (376.9 MG/ML) INTRAVENOUS SOLUTION 13 mL (accession [id number]) FINDINGS: Thoracic spine: There is abnormal T2 [...] 15:48 CT SPINE THORACIC WO CONTRAST Order: [id number] Performed: 07/07/2018 15:12 Status: Final result Visible [...] necessary, edited the report. I agree with armando report as now presented. Final signature: Jeferson [...] duloxetine, gabapentin, baclofen, trazodone RAHEEM DOSS PA-C [facility] [address] [facility] [address] [place] [address] Dave Mcclain MD - 07/07/2018 12:34 PM [...] today Dave Ayala MD Neurosurgery, PGY-1 Pager [phone] Dave Mcclain MD - 07/07/2018 7:38 AM [...] tumor progression. MRI completed. -Booked for OR 07.08 for redo thoracic laminectomies for tumor resection -will need BFFE MRI T5-T12 before OR -will consent and pre-op today -npo at midnight Please page [phone] with any questions or concerns. Dave Ayala MD Neurosurgery, PGY-1 Pager [phone] documented in this encounter Plan of Treatment [...] | | | | | | [place] [facility] [place] | | | | | | [address] | | | | | | [phone] | | | | | | | | +--------+ + + + + | 12/10/ | Office | Neurological Surgery | April Beck MD | | | 2019 | Visit | | [address] | | | | | | [address] | | | | | | [place], [place] | | | | | | [address] | | | | | | [phone] | | | | | | | [...] | | | LABORATORY | | | [facility] | | | SERVICES, | | | [...] | + + + + + | [facility] [employer] | [address] | [place] [address] | | | SERVICES, CORE | JEAN [...] MARQUAM | [address] | [place], [place] | | | HILL, POINT OF CARE | [address] | [address] | | | TESTS | | | [...] TILLMAN | [address] | [place] [address] | | | HORACIO, NINO | JEAN [...] [facility] | [address] | [place] [address] | | | SERVICES, CORE | PARK [...] | | | LABORATORY | | | [facility] | | | SERVICES, | | | [...] | + + + + + | [facility] | [address] | [place] [address] | | | HORACIO, NINO | PARK [...] | | | POC | | | HILL POINT | | | | | | [...] MARQUAM | [address] | [place], [place] | | | JAVIER POINT OF CARE | [address] | [address] | | | TESTS | | | [...] BRAMBILA | [address] | [place], [place] | | | JAVIER POINT OF CARE | [address] | [address] | | | TESTS | | | [...] MARQUAM | [address] | [place], [place] | | | ZELALEM HERRERA OF CARE | [address] | [address] | | | TESTS | | | [...] | + + + + + | [facility] | [address] | [place] [address] | | | SERVICES, CORE | JEAN [...] LABORATORY | [address] | [place] [address] | | | SERVICES, CORE | PARK [...] | | | LABORATORY | | | [facility] | | | SERVICES, | | | [...] | + + + + + | [facility] | [address] | [place] [address] | | | SERVICES, CORE | JEAN [...] | | + +---------+ + + | [facility] RADIOLOGY | | | | | VOICE RECOGNITION 2 | | | | + +---------+ + + OPERATION RECORD (07/08/2018 7:40 PM PST) + + | Procedure Note | + + | Rajinder Luis MD - 07/08/2018 7:40 PM PST Date of Service: 07/08/2018 Attending | | Surgeon: Rajinder Luis MD It Sales Representative(s): Yokasta Webb MD. | | Preoperative Diagnoses: [...] | | beginning. Dura was closed with Kake-Thaddeus, tacked up with 4-0 Nurolon sutures. The | | muscle closed in layers. Skin was closed with 2-0 interrupted vertical mattress | | sutures.Indications For Procedure: Please see [facility] for full details, but briefly, | | [...] the operating room | | on a [place] [employer]. She was intubated without difficulty by the [...] then closed it with a running 6-0 Kake-Thaddeus suture. We tacked out the | | [...] 07/08/2018 | | 19:06:44DT: 07/08/2018 19:40:29Job #: [id number] | |Indication: Intraoperative evaluation of adequacy of [...] |JLG/MODL | | | | | | /[id number] | + + PROCEDURE NOTE (07/08/2018 4:53 [...] LABORATORY | [address] | [place] [address] | | | SERVICES, CORE | PARK [...] | + + + + + | [facility] | [address] | [place] [address] | | | HORACIO, NINO | JEAN [...] | | | LABORATORY | | | [facility] | | | SERVICES, | | | [...] | + + + + + | [facility] | [address] | [place] [address] | | | SERVICES, CORE | JEAN [...] MARQUAM | [address] | [place], [place] | | | ZELALEM HERRERA OF CARE | [address] | [address] | | | TESTS | | | [...] | | | Yokasta Webb PGY5 Pager [phone] YOKASTA WEBB MD | | + + [...] from | | | | | | [id number], | | | | | | [id number], | | | | | | [id number], and | | | | | | [id number]). According | | | | | | to [facility], molecular | | | | | [...] NeuropathologistPatholog | | | | | | , [facility] & | | | | | | [facility] | | | | | | electronic [...] | | | | | | number [id number]. | | | | | | Other, [...] | | | | | determined by [facility] | | | | | | laboratories. [...] | + + + + + | [facility] DEPARTMENT OF | [address] | [place] [address] | | | PATHOLOGY | [address] [...] LABORATORY | [address] | [place] [address] | | | NINO LEONARD | PARK [...] | + + + + + | [facility] | [address] | [place] [address] | | | SERVICES, CORE | JEAN [...] | | | LABORATORY | | | [facility] | | | SERVICES, | | | [...] | + + + + + | [facility] | [address] | [place] [address] | | | HORACIO, NINO | [address] | | | + + + + + INTRAOPERATIVE NEURO MONITORING (07/08/2018) + + + | Narrative | Performed At | + + + | Patient Name: Qiana Lopezjendanie Date of : 1990 | | | Date of Test: 07/08/2018 Place | | | of Service: IP Intra Op (21) [id number] INTRAOPERATIVE | | | NEURO MONITORING IOM: [...] min(s), with | | | [place] [address] - Short Latency EP's Upper AND Lower extremities | | | 65408 - Central Motor EP's Upper AND Lower [...] SOLUTION 13 | | | mL (accession [id number]), GADOTERATE MEGLUMINE 0.5 MMOL/ML (376.9 | | | MG/ML) INTRAVENOUS SOLUTION 13 mL (accession [id number]) FINDINGS: | | | Thoracic spine: There [...] (376.9 MG/ML) INTRAVENOUS SOLUTION 13 mL (accession [id number]), | | GADOTERATE MEGLUMINE 0.5 MMOL/ML (376.9 MG/ML) INTRAVENOUS SOLUTION 13 mL (accession | | [id number]) FINDINGS:Thoracic spine: There is abnormal T2 hyperintensity [...] SOLUTION 13 | | | mL (accession [id number]), GADOTERATE MEGLUMINE 0.5 MMOL/ML (376.9 | | | MG/ML) INTRAVENOUS SOLUTION 13 mL (accession [id number]) FINDINGS: | | | Thoracic spine: There [...] (376.9 MG/ML) INTRAVENOUS SOLUTION 13 mL (accession [id number]), | | GADOTERATE MEGLUMINE 0.5 MMOL/ML (376.9 MG/ML) INTRAVENOUS SOLUTION 13 mL (accession | | [id number]) FINDINGS:Thoracic spine: There is abnormal T2 hyperintensity [...] 07/07/2018 3:40 PM | |Dictation initiated: Jeferson Catsro MD 07/07/2018 3:40 PM | + + [...] [facility] | [address] | [place] [address] | | | SERVICES, | [address] [...] LABORATORY | [address] | [place] [address] | | | SERVICES, | [address] [...] LABORATORY | [address] | [place] [address] | | | SERVICES, CORE | PARK [...] | + + + + + | [facility] | [address] | [place] [address] | | | SERVICES, CORE | JEAN [...] | | | LABORATORY | | | [facility] | | | SERVICES, | | | [...] | + + + + + | [facility] | [address] | [place] [address] | | | SERVICES, CORE | JEAN [...] | | | | First dose on 12/29/18 at | | PM PST | | [...] Units | | Site | | Starting 07/08/18 at 1012, | | AM PST | [...]
--- OUTSIDE RECORDS SUMMARY | ~2019-11-28 | XMS | Encounter Summary ---
Demographics + + + | Address | [address] | | | [place] [address] | + + + | Home Phone | | + + + | Preferred Language | Unknown | + + + | Marital Status | Single | + + + | Catholic Affiliation | NON | + + + | Race | White | + + + | Ethnic Group | Not or | + + + Author + + + | Author | [facility] | + + + | Organization | [facility] | + + + | Address | [...] Team Providers + +------+ + | Care Whizzer Hand Name | Role | Phone | + +------+ + | Damir Sy MD | PCP | | + +------+ + Encounter Details +--------+ + + + + | Date | Type | Department | Care Team | Description | +--------+ + + + + | 06/07/ | Document-Sc | Health Information | Other, Faculty | | | 2014 | anned | Services [address] | [phone] | | | | | [address] | | | | | | Mailcode: OP17A | | | | | | [facility] | | | | | | [place], [place] | | | | | | [address] | | | | | | [phone] | | | +--------+ + + + [...] | | | | | | [place], [place] | | | | | | [address] | | | | | | [phone] | | | | | | | | +--------+ + + + + | 12/10/ | Office | Neurological Surgery | April Beck MD | | | 2019 | Visit | | [address] | | | | | | [address] | | | | | | [place], [place] | | | | | | [address] | | | | | | [phone] | | | | | | | | +--------+ + + + + documented as of this encounter Visit Diagnoses Not on filedocumented in this encounter"
--- OUTSIDE RECORDS SUMMARY | ~2019-11-28 | XMS | Encounter Summary ---
Demographics + + + | Address | [address] | | | [place] [address] | + + + | Home Phone [...] Team Providers + +------+ + | Care Dinkey Engine Firer/Fireman Name | Role | Phone | + [...] | | | | | tumor | [place], [place] | | | | | | Procedures | [address] | | | | | | MRI SPINE | Phone: | | | | | | THOR / LUMB | [phone] | | | | | | WWO CONTRAST | Fax: | | | | | | | [phone] | | + +--------+ + + + [...] | | | | | NEUROLOGY | [place], [place] | floor | | | | | | | [place], [place] | | | | | | Phone: | [address] | | | | | | [phone] | Phone: | | | | | | Fax: | [phone] | | | | | | [phone] | Fax: | | | | | | | [phone] | +--------+--------+ + + + + Consultation [...] | Glioneuronal | [address] | [address] | | | | | tumor | Ave | [address] | | | | | Procedures | [place], [place] | [place], | | | | | CONSULT TO | [address] | [place] | | | | | RADIATION | Phone: | [address] | | | | | ONCOLOGY | [phone] | Phone: | | | | | | Fax: | [phone] | | | | | | [phone] | Fax: | | | | | | | [phone] | +--------+--------+ + + + + Encounter Details +--------+ + + + + | Date | Type | Department | Care Team | Description | +--------+ + + + + | 10/11/ | Documentati | Neurosurgery at | Tony Mancilla | | | 2019 | on | [facility] [address] MD [address] | | | | | Shwetha Mailcode: CH8N | [facility] | | | | | [facility] | [place], [place] | | | | | and Healing, | [address] | | | | | [facility] | [phone] | | | | | [place], [place] | | | | | | [address] | | | | | | [phone] | | | +--------+ + + + [...] | | | | | | [place] [facility] [place] | | | | | | [address] | | | | | | [phone] | | | | | | | | +--------+ + + + + | 12/10/ | Office | Neurological Surgery | April Beck MD | | | 2019 | Visit | | [address] | | | | | | [address] | | | | | | [place], [place] | | | | | | [address] | | | | | | [phone] | | | | | | | [...]
--- OUTSIDE RECORDS SUMMARY | ~2019-11-28 | XMS | Encounter Summary ---
Demographics + + + | Address | [address] | | | [place] [address] | + + + | Home Phone [...] Team Providers + +------+ + | Care Edger Runner Name | Role | Phone | + +------+ + | Damir Sy MD | PCP | | + +------+ + Encounter Details +--------+ + + + + | Date | Type | Department | Care Team | Description | +--------+ + + + + | 10/01/ | Procedure | Diagnostic Imaging | | | | 2018 | Pass | Services at [facility] | | | | | | [address] | | | | | | [place] | | | | | | [facility] | | | | | | [place], [place] | | | | | | [address] | | | | | | [phone] | | | +--------+ + + + [...] | | 2019 | | | [address] | | | | | | [place] | | | | | | [address] | | | | | | [phone] | | | | | | | | +--------+ + + + + | 12/10/ | Office | Neurological Surgery | April Beck MD | | | 2020 | Visit | | [address] | | | | | | [address] | | | | | | [place] | | | | | | [address] | | | | | | [phone] | | | | | | | | +--------+ + + + + documented as of this encounter Visit Diagnoses Not on filedocumented in this encounter"
--- OUTSIDE RECORDS SUMMARY | ~2019-11-28 | XMS | Encounter Summary ---
Demographics + + + | Address | [address] | | | [place] [address] | + + + | Home Phone | | + + + | Preferred Language | Unknown | + + + | Marital Status | Single | + + + | Worship Affiliation | NON | + + + [...] Team Providers + +------+ + | Care Associate Entertainment Editor Name | Role | Phone | [...] | | 2020 | Encounter | Services [address] | | | | | | [address] | | | | | | [place], [place] | | | | | | [address] | | | +--------+ + + + [...] | | | | | | [place], [place] | | | | | | [address] | | | | | | [phone] | | | | | | | | +--------+ + + + + | 12/10/ | Office | Neurological Surgery | April Beck MD | | | 2020 | Visit | | [address] [facility] | | | | | | [address] | | | | | | [place] | | | | | | [address] | | | | | | [phone] | | | | | | | | +--------+ + + + + documented as of this encounter Visit Diagnoses Not on filedocumented in this encounter"
--- OUTSIDE RECORDS SUMMARY | ~2019-11-28 | XMS | Encounter Summary ---
Demographics + + + | Address | [address] | | | [place] [address] | + + + | Home Phone | | + + + | Preferred Language | Unknown | + + + | Marital Status | Single | + + + | Episcopal Affiliation | NON | + + + [...] Team Providers + +------+ + | Care Regional Marketing Director Name | Role | Phone | + [...] | Procedures | [address] | Rd [place] | | | | | MRI SPINE | [facility], [place] | Research | | | | | LUMBAR WWO | [address] | Center | | | | | CONTRAST [place] | Phone: | [place], [place] | | | | | MRI, LUMBAR | [phone] | [address] | | | | | SPINE COMBO | Fax: | Phone: | | | | | | [phone] | [phone] | | | | | | | Fax: | | | | | | | [phone] | +--------+--------+ + + + + Reason [...] | | | | MRI SPINE | [facility], [place] | Research | | | | | LUMBAR WWO | [address] | Center | | | | | CONTRAST [place] | Phone: | [place], [place] | | | | | MRI, LUMBAR | [phone] | [address] | | | | | SPINE COMBO | Fax: | Phone: | | | | | | [phone] | [phone] | | | | | | | Fax: | | | | | | | [phone] | +--------+--------+ + + + + Encounter [...] | | [address] [place] Mailcode: | [place], [place] | | | | | CH3Diogenes [facility] | [address] | | | | | Health and Healing, | [phone] | | | | | [address] | | | | | | Floor [place], [place] | | | | | | [address] | | | | | | [phone] | | | +--------+ + + + [...] | | | | | | [place], [place] | | | | | | [address] | | | | | | [phone] | | | | | | | | +--------+ + + + + | 12/10/ | Office | Neurological Surgery | April Beck MD | | | 2019 | Visit | | [address] [facility] | | | | | | [address] | | | | | | [place], [place] | | | | | | [address] | | | | | | [phone] | | | | | | | [...] | | | | | dose, [facility] 11/29/17 at 1845 | | | | | | + +---------+ +-------+------+------+ +---+---+ | | | +---+---+ documented in this encounter"
--- OUTSIDE RECORDS SUMMARY | ~2019-11-28 | XMS | Encounter Summary ---
Demographics + + + | Address | [address] | | | [place] [address] | + + + | Home Phone [...] Team Providers + +------+ + | Care Pin Ball Machine Mechanic Name | Role | Phone | [...] | [address] | [place], | | | | | Mailcode: CH6A | [place] [address] | | | | | [place], [place] | | | | | | [address] | | | | | | [phone] | | | +--------+ + + + [...] | | 2019 | | | [address] | | | | | | [place] [facility] [place] | | | | | | [address] | | | | | | [phone] | | | | | | | | +--------+ + + + + | 12/10/ | Office | Neurological Surgery | April Beck MD | | | 2020 | Visit | | [address] | | | | | | [address] | | | | | | [place] | | | | | | [address] | | | | | | [phone] | | | | | | | | +--------+ + + + + documented as of this encounter Visit Diagnoses Not on filedocumented in this encounter"
--- OUTSIDE RECORDS SUMMARY | ~2019-11-28 | XMS | Encounter Summary ---
Demographics + + + | Address | [address] | | | [place] [address] | + + + | Home Phone [...] Team Providers + +------+ + | Care Adoption Worker Name | Role | Phone | [...] | | | Shwetha Mailcode: | [place], [place] | | | | | [facility] | [address] | | | | | and Solomon, | [phone] | | | | | Building [address] | | | | | | [place], [place] | | | | | | [address] | | | | | | [phone] | | | +--------+---------+ + + + [...] low grade glioneuronal tumor. She discharged to [facility] shortly after her surgery. Today the patient [...] or neurogenic bowel/bladder) develop. 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
--- OUTSIDE RECORDS SUMMARY | ~2019-11-28 | XMS | Encounter Summary ---
Demographics + + + | Address | [address] | | | [place] [address] | + + + | Home Phone [...] Team Providers + +------+ + | Care Systems Librarian Name | Role | Phone | + [...] | | | | | Marla Abdul [place], | | | | | | [place] [address] | | | +--------+--------+ + + + [...] | | | | | | [place], [place] | | | | | | [address] | | | | | | [phone] | | | | | | | | +--------+ + + + + | 12/10/ | Office | Neurological Surgery | April Beck MD | | | 2020 | Visit | | [address] | | | | | | [address] | | | | | | [place], [place] | | | | | | [address] | | | | | | [phone] | | | | | | | | +--------+ + + + + documented as of this encounter Visit Diagnoses Not on filedocumented in this encounter"
--- OUTSIDE RECORDS SUMMARY | ~2019-11-28 | XMS | Encounter Summary ---
Demographics + + + | Address | [address] | | | [place] [address] | + + + | Home Phone [...] Team Providers + +------+ + | Care Assistant Manager/Embalmer Name | Role | Phone | + +------+ + | Clare Franks MD | PCP | | + +------+ + Encounter Details +--------+ + + + + | Date | Type | Department | Care Team | Description | +--------+ + + + + | 04/10/ | ED Progress | [facility] at [facility] | Anthony Olea NP | ED Progress Note | | 2016 | | [address] | [facility] | | | | Note-Transc | [place], [place] | Hospital [address] | | | | ribed | [address] | [address] [place], [place] | | | | | | [address] | | | | | | | [...] | | | | | | [place], [place] | | | | | | [address] | | | | | | [phone] | | | | | | | | +--------+ + + + + | 12/10/ | Office | Neurological Surgery | April Beck MD | | | 2019 | Visit | | [address] | | | | | | [address] | | | | | | [place], [place] | | | | | | [address] | | | | | | [phone] | | | | | | | | +--------+ + + + + documented as of this encounter Visit Diagnoses Not on filedocumented in this encounter"
--- OUTSIDE RECORDS SUMMARY | ~2019-11-28 | XMS | Encounter Summary ---
Demographics + + + | Address | [address] | | | [place] [address] | + + + | Home Phone | | + + + | Preferred Language | Unknown | + + + | Marital Status | Single | + + + | Jewish Affiliation | NON | + + + [...] Team Providers + +------+ + | Care Anchorman Name | Role | Phone | + [...] [address] | [address] | | | | | Mailcode: CH6A | [facility] | | | | | [place], [place] | [place], [place] | | | | | [address] | [address] | | | | | [phone] | | | +--------+ + + + [...] | | 2019 | | | [facility] [address] | | | | | | [place], [place] | | | | | | [address] | | | | | | [phone] | | | | | | | | +--------+ + + + + | 12/10/ | Office | Neurological Surgery | April Beck MD | | | 2020 | Visit | | [address] | | | | | | [address] | | | | | | [place] | | | | | | [address] | | | | | | [phone] | | | | | | | | +--------+ + + + + documented as of this encounter Visit Diagnoses Not on filedocumented in this encounter"
--- OUTSIDE RECORDS SUMMARY | ~2019-11-28 | XMS | Encounter Summary ---
Demographics + + + | Address | [address] | | | [place] [address] | + + + | Home Phone [...] Team Providers + +------+ + | Care Escort Blind Name | Role | Phone | + +------+ + | Damir Sy MD | PCP | | + +------+ + Encounter Details +--------+ + + + + | Date | Type | Department | Care Team | Description | +--------+ + + + + | 01/11/ | Procedure | Diagnostic Imaging | | | | 2016 | Pass | Services at [facility] | | | | | | [address] | | | | | | [place] | | | | | | [facility] | | | | | | [place], [place] | | | | | | [address] | | | | | | [phone] | | | +--------+ + + + [...] | | | | | | [place], [place] | | | | | | [address] | | | | | | [phone] | | | | | | | | +--------+ + + + + | 12/10/ | Office | Neurological Surgery | April Beck MD | | | 2019 | Visit | | [address] | | | | | | [address] | | | | | | [place], [place] | | | | | | [address] | | | | | | [phone] | | | | | | | | +--------+ + + + + documented as of this encounter Visit Diagnoses Not on filedocumented in this encounter"
--- OUTSIDE RECORDS SUMMARY | ~2019-11-28 | XMS | Encounter Summary ---
Demographics + + + | Address | [address] | | | [place] [address] | + + + | Home Phone | | + + + | Preferred Language | Unknown | + + + | Marital Status | Single | + + + | Yarsanism Affiliation | NON | + + + [...] Team Providers + +------+ + | Care Tech Intern Name | Role | Phone | [...] | | | spine tumor | [facility] [address] | | | | | | Procedures | [address] | | | | | | | [facility] [place] | | | | | | OCCUPATIONAL | [address] | | | | | | THERAPY | Phone: | | | | | | REFERRAL | [phone] | | | | | | | Fax: | | | | | | | [phone] | | +--------+--------+ + + + + [...] | | | | | PHYSICAL | [facility] [place] | | | | | | THERAPY | [address] | | | | | | REFERRAL | Phone: | | | | | | | [phone] | | | | | | | Fax: | | | | | | | [phone] | | +--------+--------+ + + + + [...] + + | 05/12/ | Hospital | [facility] [address] | Rajinder Luis MD | | | 2015 - | Encounter | [address] | [address] | | | | | [id number] [place] | [place], [place] | | | 05/20/ | | H[facility] [place], | [address] | | | 2014 | | [place] [address] | [phone] | | | | | [phone] | | | +--------+ + + + [...] Rajinder Luis MD PCP: PATRIC Todd Service: [facility] Neurosurgery Diagnoses Principal Final [...] was felt appropriate for discharge to [facility] (Stephan LYONS Yazidi) on 05/20/2015, and the patient and/or family [...] completed No Destination: Destination: Inpatient Rehab - [facility] Condition on Discharge Good Discharge Follow Up - Facility MD to follow Facility MD to follow patient. FOLLOW-UP You have a wound check appointment with Raegan Doss PA-C at 11:30am on 05/31. This will be on the 8th floor at the [facility] on the [facility] located at [address] [facility] [place] [address]. Please call [phone] if you have any questions or conc erns before your appointment time. If you are still admitted to [facility] at this time, it is okay to cancel this appointment as thais costa as a provider at that facility can examine your incision. Please then make an appointmen t with Raegan Doss for 1 month following your discharge from [facility]. PCP:PATRIC Todd When: Please follow-up with [...] 0500) Discharge Patient To: Interhospital Transfer - [facility] Does patient have a planned readmission: No Discharge Summary Completed?: Yes. 05/20/2015 Discharging Provider: Raegan Doss PA-C Date Completed: 05/20/2015 Time Completed: 7:50 AM Discharging Attending: Rajinder Luis MD [facility] [address] [address] [address] documented in this encounter Progress [...] al sides of foot. Motor: Tri Bi Model Maker Firearms HF KE APF ADF Left 5 5 [...] BLE duplex neg for DVT. Dispo: To [facility] (TRIST[facility] Stephan Yazidi) today. Raegan Doss PA-C [facility] [address] [address] [address] dams, PHILIPPE Mena - 05/19/2015 6:52 AM [...] Intake/Output Summary (Last 24 hours) at 05/19/15 0600 Last data filed at 05/19/15 033 Gross [...] rest of the LLE. Motor: Tri Bi Model Maker Firearms HF KE APF ADF Left 5 5 [...] CM for IPR placement. Raegan Doss PA-C [facility] [address] [facility] [place] [address] dams, PHILIPPE Mena - 05/18/2015 6:52 AM [...] Delivery Device: None (room ai r) (05/18/15 128) 24 Hour Vital Min/Max: Systolic (24hrs), Av [...] intact at pre-op baseline. Motor: Bi Tri Model Maker Firearms HF KE APF ADF Left 5 5 [...] CM for IPR placement. Raegan Doss PA-C [facility] [address] [address] [address] dams, PHILIPPE Mena - 05/17/2015 [...] at pre-op baseline. Motor: Delt Tri Bi Model Maker Firearms HF KE APF ADF Left 5 5 [...] CM for IPR placement. Raegan Doss PA-C [facility] [address] [address] [place], [place] [id number] Cesar Cox MD - 02/2015 9:39 AM [...] 05/14/2015 ICU Attending: MD Sarina Admit Service: [facility] ICU Day # 2 POD # 1 [...] information of next of kin: Judit mother [phone] Disposition: Acute care Code: Full This patient has been staffed with Lesly Branch MD , attending physician, who agrees with the above assessment and plan. [facility] DEPARTMENT: [id number] ICU NEURO Place of Service:- Inpatient Date of Service: 05/14/2015 CSN: [id number] Lab Results Component Value Date WBC 23.58 [...] and check patient later Yokasta Randall PGY2 [id number] Lesly Flynn MD - 8:25 AM PSTNSICU [...] due to CSF hai k, cord injury, RI, UTI, acute blood loss anemia, DVT 1. [...] DVT proph with SCDs. Lesly Branch M.D. Backfiller, Neurology and Emergency Medicine I spent 20 minutes in direct care of this patient with over 50% spent at the patient s b eside, reviewing data, discussing the patient s care with other medical staff, charting, a nd discussion with treatment decision maker. [facility] DEPARTMENT: [id number] CRITICAL CARE Place of Service: Inpatient Date of Service: 05/14/2015 CSN: [id number] Suggested Level of Care: 02699 - SUBSEQUENT HOSPITAL CARE,LEVEL III iPolly lemus [...] the or iginal. NSICU Neuroscience ICU Attending Counter Stacker Note I have seen and evaluated Matt [...] and coordination of care Cathy Cespedes MD,PhD [facility] DEPARTMENT: [id number] ICU NEURO Place of Service:- Inpatient Date of Service: 05/13/2015 CSN: [id number] Suggested Modifier: Resident involved Suggested CPT: TO ASSISTANT IMPORT MANAGER Gilbert Collins MD,MPH - 05/13/2015 8:49 PM [...] and entire foot. Motor: Tri Bi WE Model Maker Firearms HF KE APF ADF Left 5 5 [...] -APAP, Oxycodone, IV dilaudid available prn pain Raeagn Doss PA-C [facility] [address] [place] [address] Polly Collins MD,MPH - 05/12/2015 7:33 PM [...] | | 2019 | | | [facility] [address] | | | | | | [place], [place] | | | | | | [address] | | | | | | [phone] | | | | | | | | +--------+ + + + + | 12/10/ | Office | Neurological Surgery | April Beck MD | | | 2019 | Visit | | [address] | | | | | | [address] | | | | | | [place], [place] | | | | | | [address] | | | | | | [phone] | | | | | | | [...] Attending | | Surgeon: Rajinder Luis MD Leaf Sucker Operator(s): Jere Story MD | | Preoperative Diagnosis: [...] | endotracheal anesthesia was induced on the [facility]. Occlusive dressings were | | [...] turned back supine on | | the [facility]. She was extubated and she was taken to the recovery area in stable | | condition. At the end of the case, all instrument, sponge, and needle counts were | | correct in 2 iterations. I, Rajinder Luis MD was scrubbed and actively participated | | performing the critical portions of the operation.ZAMZAM Henry/MODLDD: | | 05/15/2015 08:21:01DT: 05/15/2015 08:59:43Job #: [id number] | | | |Rajinder Luis MD | |EZEKIEL/SHANNAN | | | | | | /[id number] | + + MAGNESIUM, PLASMA (05/17/2015 10:09 [...] LABORATORY | [address] | [place] [address] | | | SERVICES, CORE | PARK [...] | + + + + + | [facility] LABORATORY | [address] | [place] [address] | | | SERVICES, CORE | PARK [...] | | | LABORATORY | | | TRINIDADIAN | | | SERVICES, | | | [...] | + + + + + | [facility] | [address] | [place] [address] | | | SERVICES, CORE | PARK [...] | + + + + + | [facility] | [address] | [place] [address] | | | NINO LEONARD | JEAN [...] | | | LABORATORY | | | TRINIDADIAN | | | SERVICES, | | | [...] | + + + + + | [facility] | [address] | [place] [address] | | | SERVICES, CORE | PARK [...] | + + + + + | [facility] LABORATORY | [address] | [place] [address] | | | SERVICES, CORE | PARK [...] | + + + + + | [facility] | [address] | [place] [address] | | | SERVICES, CORE | JEAN [...] | | | LABORATORY | | | TRINIDADIAN | | | SERVICES, | | | [...] | + + + + + | [facility] LABORATORY | [address] | [place] [address] | | | SERVICES, CORE | JEAN [...] | | + +---------+ + + | [facility] DEPARTMENT | | | | | RADIOLOGY [...] | + + + + + | [facility] | [address] | [place] [address] | | | SERVICES, NINO | JEAN [...] [facility] | [address] | [place] [address] | | | SERVICES, CORE | PARK [...] | | | LABORATORY | | | TRINIDADIAN | | | SERVICES, | | | [...] | + + + + + | [facility] | [address] | [place] [address] | | | SERVICES, CORE | JEAN [...] | | + +---------+ + + | [facility] DEPARTMENT OF | | [...] | + + + + + | [facility] | [address] | [place] [address] | | | SERVICES, NINO | JEAN [...] | | | LABORATORY | | | TRINIDADIAN | | | SERVICES, | | | [...] | + + + + + | [facility] | [address] | [place] [address] | | | SERVICES, CORE | [address] | | | + + + + + INTRAOPERATIVE NEURO MONITORING (05/13/2015) + + + | Narrative | Performed At | + + + | Patient Name: Matt Fagan Date of : 1990 | | | Date of Test: 05/13/2015 Place of | | | Service: IP Intra Op (70) [id number] INTRAOPERATIVE NEURO | | | MONITORING History: [...] min(s), with modifier GY | | | 65925 - Short Latency EP's Upper AND Lower extremities 10335 - | | | Central Motor EP's [...] 2008 | | | | | | 1;1519):8866-34. | | | | | | Edison Veloz et al. IDH1 and | | | | | | IDH2 mutations in | | | | | | gliomas. N Engl J Med. | | | | | | 2008Feb | | | | | | 19360(8):691-564.3. | | | | | | Lewis [...] 2008 | | | | | | (12):5874-254. | | | | | | Rogelio [...] | | | | | determined by [facility] | | | | | | [facility] | | | | | | Laboratories; CLIA # | | | | | | [id number]. It has not | | | | [...] + + + + | [facility] | [address] | [place] [address] | | | DIAGNOSTIC | [address] [...] | Tissue Slides - FISH | | [facility] | | | REPORT | Only THIS [...] (7q34)break-apart/ | | | | | | [id number] probe set. 50 | | | | [...] | | | | | | Probe(s): [place] | | | | | | Genomics BRAF | | | | | | break-apart (7q34) / | | | | | | [id number] (SA) (7q34) | | | | | | This test was | | | | | | developed and its | | | | | | performance determined | | | | | | by the [facility] | | | | | | Laboratory [...] clinical | | | | | | wic site coordinator.Amended to | | | | | | [...] + + + + | [facility] | [address] | [place] [address] | | | DIAGNOSTIC | [address] [...] | | | | | HRM or Cubero 20% | | | | | | (HRM); 1% (Kvng) | | | | | | >99%HRM: high resolution | | | | | | melting curve | | | | | | analysisSanger: | | | | | | Bi-directional Kvng | | | | | | sequencing with | | | | | | DEV TECHNICAL MGR-clamp for | | | | | | [...] Neurol. | | | | | | 2011;25(6):889-33. | | | | | | doi: | | | | | | 10.1097/WCO.[id number] | | | | | | 0217.2. Jessica CM, | | | | | | Cheo SR, Shelton | | | | | | FJ, Jena JS, Mc Ludmila BE, | | | | | | Jacquie AR,Dl GUS, | | | | | | Chuckie PHP PROGRAMMER, Warren C. | | | | | [...] Jan;71(7):631-9.3. | | | | | | Doris E, Cricket R, | | | | | | Wally CUBA, Corey A, | | | | | | Lele RA, Elva | | | | | | Y,Ronine T, Kev A, | | | | | | Janna T, Omar M, | | | | | | La Nena WA, Michele C, | | | | | | MiguelCD, Luis Alberto DH. 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 | | | | | | Proc Natl Acad Sci U S | | | | | | A. 2011 May | | | | | | ;109(22):5340-78. | | | | | | Dyson-Santagata [...] | | | | | | S. 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 PLoS One. | | | | | | 2010 Mar | | | | | | 29;6(3):n36651.5. | | | | | | April [...] 2009 | | | | | | Jan;12(7):691-30.7. | | | | | | Chance [...] Pathol. | | | | | | ;139(3):275-21. | | | | | | (Analyte [...] | | | | | determined by [facility] | | | | | | [facility] | | | | | | Laboratories; [place] # | | | | | | [id number]. It has not | | | | [...] + + + + | [facility] | [address] | [place] [address] | | | DIAGNOSTIC | [address] [...] Campus | | | | | | [place]. Please | | | | | | [...] into | | | | | | MOBILITY ARCHITECT tissue. Tumor cells | | | | [...] block | | | | | | B7Anfkehgwurnwdqbfhpth | | | | | | stains: see IHC | | | | | | tableNo Electron | | | | | | microscopy | | | | | | performedMolecular | | | | | | genetic studies | | | | | | performedOther Molecular | | | | | | Studies: PCR for BRAF | | | | | | [id number] for BRAF | | | | | [...] | | | | | | Block I6Chfiyxqdtk: | | | | | | Tumor cells | | | | | | Marker Result | | | | | | CommentGlial | | | | | | Fibrillary Acidic | | | | | | Protein | | | | | | PositiveVimentin | | | | | | PositiveOlig 2 | | | | | | YalwpusbBP25 % | | | | | | Positive less than | | | | | | 5%PhosphoHistone 3, | | | | | | mitotic marker | | | | | | NegativeEpithelial | | | | | | Membrane Antigen | | | | | | NegativeATRX(MOBILITY ARCHITECT and | | | | | | [...] PositiveChromogranin | | | | | | IcggahdvER32 (HPCA-1) | | | | | | [...] | + + + + + | [facility] | [address] | [place] [address] | | | PATHOLOGY | [address] [...] LABORATORY | [address] | [place] [address] | | | SERVICES, | [address] [...] LABORATORY | [address] | [place] [address] | | | SERVICES, | [address] [...] | + + + + + | [facility] | [address] | [place] [address] | | | HORACIO, NINO | JEAN [...] | + + + + + | [facility] | [address] | [place] [address] | | | SERVICES, CORE | JEAN [...] | | | LABORATORY | | | TRINIDADIAN | | | SERVICES, | | | [...] | [facility] | [address] | [place] [address] | | | SERVICES, CORE | PARK [...] LABORATORY | [address] | [place] [address] | | | SERVICES, CORE | PARK [...] | + + + + + | [facility] | [address] | [place] [address] | | | SERVICES, NINO | JEAN [...] | | | | | 0944, Until [facility] 05/20/15 at 1737, | | | | [...] injection 1 dose, | | | Starting [facility] 05/13/15 at 1925, | | | Until [facility] 05/13/15 at 2008 | | + +---+ | | | + +---+ + +-------+ +--------+---+---+ | gabapentin (NEURONTIN) capsule | Given | 05/20/20 | 300 mg | | | | 300 mg 300 mg, oral, THREE TIMES | | 15 9:29 | | | | | DAILY, First dose on [facility] 05/13/15 | | AM PST | | [...] | | | | ONCE, 1 dose, [facility] 05/13/15 at 2345 | | PM PST [...] PST | | | | | Until [facility] 05/20/15 at 1737, | | | | | | | constipation | | | | | | + +-------+ +--------+---+---+ +---+---+ | | | +---+---+ + +-------+ +--------+---+---+ | magnesium oxide (MAG-OX) tablet | Given | 05/16/20 | 800 mg | | | | 800 mg 800 mg, oral, ONCE, 1 | | 15 8:50 | | | | | dose, [facility] 05/16/15 at 1745 | | PM PST [...] injection | | | 1 dose, Starting [facility] 05/13/15 at | | | 1950, Until [facility] 05/13/15 at 1955 | | + +---+ [...] tablet 1 dose, | | | Starting [facility] 05/13/15 at 2038, | | | Until [facility] 05/13/15 at 2040 | | + +---+ [...] | | | DAILY, First dose on [facility] 05/13/15 | | AM PST | | [...]
--- OUTSIDE RECORDS SUMMARY | ~2019-11-28 | XMS | Encounter Summary ---
Demographics + + + | Address | [address] | | | [place] [address] | + + + | Home Phone [...] Team Providers + +------+ + | Care Bakery Manager Name | Role | Phone | [...] Spinal cord | Raegan K, | [address] | | | | | tumor | PA-C [address] | [address] | | | | | Procedures | [address] | Mailcode: | | | | | PHYSICAL | [facility] [place] | [facility] | | | | | THERAPY | [address] | for Health | | | | | REFERRAL | Phone: | and Healing, | | | | | | [phone] | Building 1, | | | | | | Fax: | [address] Floor | | | | | | [phone] | [place], [place] | | | | | | | [address] | | | | | | | Phone: | | | | | | | [phone] | | | | | | | Fax: | | | | | | | [phone] | +--------+--------+ + + + + Encounter Details +--------+---------+ + + + | Date | Type | Department | Care Team | Description | +--------+---------+ + + + | 10/19/ | Office | [facility] Physical | Myrna Castelan, | Spinal cord tumor | | 2016 | Visit | Therapy Services at | DPT | (Primary Dx) | | | | [facility] | | | | | | [address] | | | | | | Mailcode: [facility] | | | | | | [facility] | | | | | | and Healing, | | | | | | Building [address], [address] | | | | | | Floor [place], [place] | | | | | | [address] | | | | | | [phone] | | | +--------+---------+ + + + [...] Diagnosis/ICD-9: D49.7 Spinal cord tumor Insurance: 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 female who has been referred to Outpatient Physical Therapy services due to concerns regarding: balance problems, weaknes s, fatigue and decreased mobility. Matt presents to outpatient physical therapy following most recent admission to [facility] following tumor expansion resulting in surgery on [...] female who was most recently discharged from [facility] following t umor expansion and T6-10 hemilaminectomies [...] therapy when she relocat to the [facility]. Impairments are limiting pt's ability to participate in basic ADLs, work, and recreational activities without restrictions. Matt requires services that can be safely and effectivel y performed only by a qualified therapist to address the above mentioned impairments and act ivity limitation. Functional Goals: Date established Patient will perform >20 reps of sit to money examiner 30 seconds to demonstrate improved functio nal [...] status. Myrna Castelan DPT [facility] 1ST FLOOR [address] [place] Mailcode: [address] [address] Payment Authorization Request and Status Report: [facility] Contact Contact Billing Provider Number: [id number] Therapist Provider Number: [id number] Referring Prescribing Practitioner: Raegan Doss PA-C Primary Diagnosis/ICD-9: ICD-10-CM ICD-9-CM 1. Spinal cord tumor D49.7 239.7 [place] PHYS THERAPY EVALUATION [place] GAIT TRAINING THERAPY Prescribing Practitioner Provider Number: [facility] Physician [id number]. Outside [facility] Physician: _ Proposed PA Start Date: Date PA is approved. Procedure Codes: Physical Therapy Evaluation 91653 Therapeutic Exercise 00748 Therapeutic Activities 09328 Gait Training 17132 Neuromuscular Reeducation 03057 Modalities Codes: None Minutes per session: 45 [...] | | | | | | [place], [place] | | | | | | [address] | | | | | | [phone] | | | | | | | | +--------+ + + + + | 12/10/ | Office | Neurological Surgery | April Beck MD | | | 2019 | Visit | | [address] | | | | | | [address] | | | | | | [place], [place] | | | | | | [address] | | | | | | [phone] | | | | | | | | +--------+ + + + + documented as of this encounter Procedures + +--------+ + + + | Procedure Name | Priori | Date/Time | Associated Diagnosis | Comments | | | ty | | | | + +--------+ + + + | VT GAIT TRAINING | Routin | 10/20/2015 | Spinal cord tumor | | | THERAPY | e | 4:06 PM | | | | | | PDT | | | + +--------+ + + + | [place] PHYS THERAPY | Routin | 10/20/2015 | [...]
--- OUTSIDE RECORDS SUMMARY | ~2019-11-28 | XMS | Encounter Summary ---
Demographics + + + | Address | [address] | | | [place] [address] | + + + | Home Phone [...] Team Providers + +------+ + | Care Salesperson Women'S Dresses Name | Role | Phone | + [...] | | | | Mailcode: CH6A | [facility] [address] | | | | | [place], [place] | [place], [place] | | | | | [address] | [address] | | | | | [phone] | | | +--------+ + + + [...] | | 2019 | | | [place] [address] | | | | | | [place], [place] | | | | | | [address] | | | | | | [phone] | | | | | | | | +--------+ + + + + | 12/10/ | Office | Neurological Surgery | April Beck MD | | | 2020 | Visit | | [address] | | | | | | [address] | | | | | | [place] | | | | | | [address] | | | | | | [phone] | | | | | | | | +--------+ + + + + documented as of this encounter Visit Diagnoses Not on filedocumented in this encounter"
--- OUTSIDE RECORDS SUMMARY | ~2019-11-28 | XMS | Encounter Summary ---
Demographics + + + | Address | [address] | | | [place] [address] | + + + | Home Phone [...] Providers + +------+ + | Care Wire Drawing Machine Tender Name | Role | Phone [...] | Surgery | Spinal cord | Dept [facility] | Rajinder Fisher MD | | | | | tumor ED | [address] | [address] | | | | | f/u T5-10 | [address] | Ave | | | | | spinal cord | Rd [facility] | [place], [place] | | | | | tumor with | Hospital | [address] | | | | | right leg | [place], [place] | Phone: | | | | | weakness. | [address] | [phone] | | | | | | Phone: | Fax: | | | | | | [phone] | [phone] | +--------+--------+ + + + + Encounter Details +--------+---------+ + + + | Date | Type | Department | Care Team | Description | +--------+---------+ + + + | 02/15/ | Office | Neurosurgery at | Romario Raegan K, | Spinal cord tumor | | 2016 | Visit | [facility] | PA-C [address] | (Primary Dx) | | | | and Healing [address] [place], [place] | | | | | [address] Mailcode: | [address] | | | | | [facility] | [phone] | | | | | Health and Healing, | | | | | | Building | | | | | | Floor [facility] [place] | | | | | | [address] | | | | | | [phone] | | | +--------+---------+ + + + [...] + + + | Blood Pressure | 117/69 | 02/16/2016 3:37 PM | | | | | PDT | | + + + + + | Pulse | 87 | 02/16/2016 3:37 PM | | | | | PDT [...] + + + + | Weight | 81.1 kg (178 lb 14.4 | 02/16/2016 3:37 PM | | | | oz) | PDT | | + + + + + | Height | 160 cm (5' 3") | 02/16/2016 3:37 PM | | | | | PDT | | + + + + + | Body Mass Index | 31.69 | 02/16/2016 3:37 PM | | | | | PDT | | + + + + + documented in this encounter Progress Notes Raegan Doss PA-C - 02/16/2016 9:27 AM Merced Fagan is a 25 y.o. 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 She is understandably hesitant to proceed with surgery because of the risks and possible extended stay at a rehab facility, but she agrees that she does not want to have emergent surgery again if avoidable. She and her significant other would like plan for surgery in the near future (~1 month), but after h aving her daughter, Joey'jovany, first birthday alliance party in 11 days. Ht 1.6 m (5' 3"), Wt 81.149 kg (178 lb 14.4 oz), BP 117/69, Pulse 87, BMI 31.7 kg/(m^2). PE: Alert, oriented x3. Speech clear, fluent. Pupils equal, brisk. Gaze conjugate. EOMI. LT sensation intact. Face symmetric. Tongue midline. Sensation intact ~T7 level. L leg without any light touch sensation, though patient has pro prioception intact. R leg with patchy sensation but, generally able to feel light touch. Str ength is 4+ to 5 throughout. Walks with abnormal gait on the R. Imagin01/17/16 Thoracic MRI wwo - 1. Prior spinal cord tumor debulking with decreased size of the enhancing nodule at the T7- T8 level. Development of a new enhancing nodule at the T9 level. 2. Persistent signal abnormality within the spinal cord from T3-4 to T10, slightly improved since May 2015. Impression: 25 y.o. 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 Imaging shows some enhancing region of likely recurrence/residual disease. Plan: -Patient discussed with Dr. Luis -The patient agrees with requesting authorization for surgery. She will call us when she is ready to schedule surgery. This will be after her daughter's first birthday alliance party in . NE[facility]OS[facility]GERY AT [facility] [address] Mailcode: [place] [address] documented in this encounter Plan [...] | | | | | | [place], [place] | | | | | | [address] | | | | | | [phone] | | | | | | | | +--------+ + + + + | 12/10/ | Office | Neurological Surgery | April Beck MD | | | 2019 | Visit | | [address] | | | | | | [address] | | | | | | [place], [place] | | | | | | [address] | | | | | | [phone] | | | | | | | | +--------+ + + + + documented as of this encounter Visit Diagnoses + + | Diagnosis | + + | 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
--- OUTSIDE RECORDS SUMMARY | ~2019-11-28 | XMS | Encounter Summary ---
Demographics + + + | Address | [address] | | | [place] [address] | + + + | Home Phone [...] Team Providers + +------+ + | Care Risk Consultant Name | Role | Phone | [...] | Event | [address] | [address] | | | | | [facility] | [address] | | | | | Hospital Admitting | [place], [place] | | | | | Desk Located on the | [address] | | | | | 9th floor | [phone] | | | | | [place], [place] | | | | | | [address] | Ray Rubin, | | | | | | [address] | | | | | | [address] | | | | | | [place], [place] | | | | | | [address] | | | | | | [phone] | | | | | | | [...] + + + | Periph | [facility]; Left; | 09/09/151901 by | 09/11/151658 by [...] | | | | | | [place] [facility] [place] | | | | | | [address] | | | | | | [phone] | | | | | | | | +--------+ + + + + | 12/10/ | Office | Neurological Surgery | April Beck MD | | 2019 | Visit | | [address] | | | | | | [address] | | | | | | [facility] [place] | | | | | | [address] | | | | | | [phone] | | | | | | | [...] PST | | | | | Until [facility] 09/09/15 at 2356 | | | [...] PST | | | | | Until [facility] 09/09/15 at 2357 | iology | | [...]
--- OUTSIDE RECORDS SUMMARY | ~2019-11-28 | XMS | Clinical Summary ---
Demographics + + + | Address | [address] | | | [place] [address] | + + + | Home Phone [...] Team Providers + +------+ + | Care Surfboard Maker Name | Role | Phone | + +------+ + | Damir Sy MD | PCP | | + +------+ + Source Comments MOISE is fully live on both EpicCare Ambulatory and EpicCare InPatient.[facility] Allergies + + + + + + | Active Allergy | Reactions | Severity | Noted | Comments | | | | | Date | | + + + + + + | Morphine | Agitation | | 12/20/20 | | | | | | 19 | | + + + + + + | Sulfa (Sulfonamide | Unknown | | 05/07/ | | | Antibiotics) | | | [...] | | + + + +---------+------+------+-------+ | lidocaine 5 % | Apply 2 patches to | 30 | 0 | 01/0 | | Activ | | topical adhesive | skin every | patch | | 4/20 | | e | | patch,medicated | [...] | | + + + +---------+------+------+-------+ | ondansetron ODT 4 | Dissolve 1-2 [...] +---------+------+------+-------+ | baclofen 10 mg | Take 1 tablet by | 12 | 0 | 12/2 | | Activ | | oral tablet | mouth three times | tablet | | 6/20 | | e | | | daily as needed. | | | 19 | | | + + + +---------+------+------+-------+ | traZODone 50 mg | Take 2 tablets by | 8 | 0 | 12/2 | | Activ | | oral tablet | mouth once daily at | tablet | | 6/20 | | e | | | bedtime. May take a | | | 19 | | | | | second dose if not | | | | | | | | asleep within 1-2 | | | | | | | | hours. | | | | | | + + + +---------+------+------+-------+ | gabapentin 300 mg | Take 2 capsules by | 8 | 0 | 12/2 | | Activ | | oral capsule | mouth once daily at | capsule | | 6/20 | | e | | | bedtime. | | | 19 | | | + + + +---------+------+------+-------+ | DULoxetine 60 mg | Take 2 capsules by | 8 | 0 | 12/2 | | Activ | | oral capsule,delayed | mouth once daily at | capsule | | 12/26 | | e | | release(DR/EC) | bedtime. | | | 19 | | | + + + +---------+------+------+-------+ | HYDROmorphone 2 mg | Take 1 tablet by | 12 | 0 | 12/2 | | Activ | | oral | mouth three times | tablet | | 12/26 | | e | | tabletIndications: | daily as needed for | | | 19 | | | | Thoracic spine tumor | moderate pain. | | | | | | + + + +---------+------+------+-------+ Active Problems + + + | Problem [...] Assessment | | & Plan: -admitted to NSU status post T8,T9 redo laminectomy | | [...] | | vasopressors-Continue Decadron: 3 day rapid ncnrb-Zkah-ud abx | | per Neurosurgery-HOB flat since [...] | Last Assessment & Plan: -Admit to NSICU; Dr. Michelle Luis | | primary. 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 -postop abx; Ancef a9l-UDB <160 with MAP>65 for | | adequate [...] + + | 11/26/ | MyChart | Radiology | | MRI Screening Form | | 2020 | Encounter | | | | +--------+ + + + + from Last 3 Months Immunizations + + + + | Name | Administration Dates | Next Due | + + + + | TBL-Jrc-WwtY | 11/06/1999, 04/07/1999, 01/05/1995, | | | [...] | | + + + + | [place], NOS | 04/07/1999, 01/05/1995, 09/05/1993, | | | [...] + + + + Plan of Treatment +--------+ + + + [...] | | | | | | [place], [place] | | | | | | [address] | | | | | | [phone] | | | | | | | | +--------+ + + + + | 12/10/ | Office | Neurological Surgery | April Beck MD | | | 2020 | Visit | | [address] | | | | | | [address] | | | | | | [place], [place] | | | | | | [address] | | | | | | [phone] | | | | | | | | +--------+ + + + + + + + + + | Health Maintenance | Due Date | Last Done | Comments | + + + + + | Pneumococcal | Aged Out | 10/09/2018 | No longer eligible | | vaccination | | | based on patient's | | | | | age to complete this | | | | | topic | + + + + + | Influenza (Flu) | Completed | 03/31/2019, 05/14/2018, | | | vaccination | | 05/07/2018, Additional history | | | | | exists | | + + + + + Implants [...] | | | [employer] | | | [id number] | | [id number]: Qty: 1 on | | | LIFESCIENCE | | | / | | 05/13/2015 by Rajinder Luis | | | S | | | /[id number] | | MD Phillip at [facility] | | | | | | 25X | | LOC | | | | | | | + +------+--------+ +--------+--------+--------+ | Sealant Duraseal Low Swell - | | [place] | [employer] | | 06/07/ | [id number] | | [id number]: Qty: 1 on | | e: | LIFESCIENCE | | 2016 | / | | 03/22/2016 by Rajinder Luis | | Spine | S | | | /[id number] | | MD Phillip at [facility] | | | | | | 59X | | LOC | | | | | | | + +------+--------+ +--------+--------+--------+ | Sealant Hemostatic Floseal | | N/A: | ALYSSA | | 05/25/ | [id number] | | Matrix Needle Free Adapter | | Spine | HEALTHCARE | | 2017 | 0 / | | 5ml - [id number]: | | | | | | /[id number] | | Qty: 1 on 01/13/2017 by | | | | | | 523 | | Rajinder Luis MD at [facility] | | | | | | | | INPATIENT REV LOC | | | | | | | + +------+--------+ +--------+--------+--------+ | Sealant Hemostatic Floseal | | N/A: | ALYSSA | | / | [id number] | | Matrix Needle Free Adapter | | Spine | HEALTHCARE | | 2019 | 8 / | | 5ml - [id number]: | | | | | | /[id number] | | Qty: 1 on 07/08/2018 by | | | | | | 187 | | Rajinder Luis MD at [facility] | | | | | | | | INPATIENT REV LOC | | | | | | | + +------+--------+ +--------+--------+--------+ + + | Description:Given to surgical | | field | + + + +---+--------+ +---+--------+--------+ | Sealant Hemostatic Floseal | | [place] | SHAH | | 12/06/ | [id number] | | Matrix Needle Free Adapter | | e: | HEALTHCARE | | 2020 | 8 / | | 5ml - [id number]: | | Spine | | | | /[id number] | | Qty: 1 on 10/03/2018 by | | | | | | 262 | | Rajinder Luis MD at [facility] | | | | | | | [...] | MEDICA | xxxxxxxxxxx | Effect | [id number] | [address] | Medica | | | RE A & | | edith | 1 | [address] | re | | | B | | for | | [place] | | | | | | all | | [address] | | | | | | dates | | | | + +--------+ +--------+ + +--------+ | MEDICARE | MEDICA | xxxxxxxxxxx | 11/07/19 | [phone] | [address] | [address] | | | RE A & | | 18-Pre | 1 | [address] | re | | | B | | sent | | [place] | | | | | | | | [address] | | + +--------+ +--------+ + +--------+ | MEDICAID [place] | MCAID | xxxxxxxx | 10/08/19 | [phone] | [address] | [address] | | | QMM | | 19-Pre | 6 | [address] | id | | | QMB | | sent | | [place], [place] | | | | | | | | [address] | | + +--------+ +--------+ + +--------+ [...] | | al/Fam | | 1990 | [phone] | [address] [place] | | | mehul | | | 6 (Home) | [address] | + +--------+ +--------+ + + | Matt Fagan | Person | Self | [birth year] | [address] | | | al/Fam | | 1991 | [phone] | [address] [place] | | | [place] | | | 6 ([place]) | [address] | + +--------+ +--------+ + + Advance Directives + + + + + | Code Status | Date | Date | Comments | | | Activated | Inactivated | | + + + + + | Full Code | 06/27/2019 | 07/03/2019 | | | | 10:21 PM | 8:41 PM | | + + + + + + + + +---+ | | | | | + + + +---+ | Full Code | 10/01/2018 | 10/08/2018 | | | | 8:22 PM | 6:15 PM | | + + + +---+ [...]
--- OUTSIDE RECORDS SUMMARY | ~2019-11-28 | XMS | Encounter Summary ---
Demographics + + + | Address | [address] | | | [place] [address] | + + + | Home Phone [...] Team Providers + +------+ + | Care Qa Developer Name | Role | Phone | [...] Raegan Doss, | Medical Records | | 2016 | | [facility] [address] | [facility] [address] | Review | | | | [place] Mailcode: CH8N | [place], [place] | | | | | [facility] | [address] | | | | | and [facility], | [phone] | | | | | [facility] | | | | | | Floor [place], [place] | | | | | | [address] | | | | | | [phone] | | | +--------+ + + + [...] | | | | | | [place] [facility] [place] | | | | | | [address] | | | | | | [phone] | | | | | | | | +--------+ + + + + | 12/10/ | Office | Neurological Surgery | April Beck MD | | | 2020 | Visit | | [address] | | | | | | [address] | | | | | | [place], [place] | | | | | | [address] | | | | | | [phone] | | | | | | | | +--------+ + + + + documented as of this encounter Visit Diagnoses Not on filedocumented in this encounter"
--- OUTSIDE RECORDS SUMMARY | ~2019-11-28 | XMS | Encounter Summary ---
Demographics + + + | Address | [address] | | | [place] [address] | + + + | Home Phone [...] Author + + + | Author | [facility] | + + + | Organization | [facility] | + + + | Address [...] Team Providers + +------+ + | Care Moderate Needs Teacher Name | Role | Phone | [...] | | | Ave Mailcode: | [place], [place] | | | | | [facility] | [address] | | | | | and [address], | [phone] | | | | | [place] [address] | | | | | | [place], [place] | | | | | | [address] | | | | | | [phone] | | | +--------+ + + + [...] | | | | | | [place], [place] | | | | | | [address] | | | | | | [phone] | | | | | | | | +--------+ + + + + | 12/10/ | Office | Neurological Surgery | April Beck MD | | | 2019 | Visit | | [address] [facility] | | | | | | [address] | | | | | | [place], [place] | | | | | | [address] | | | | | | [phone] | | | | | | | | +--------+ + + + + documented as of this encounter Visit Diagnoses Not on filedocumented in this encounter"
--- OUTSIDE RECORDS SUMMARY | ~2019-11-28 | XMS | Encounter Summary ---
Demographics + + + | Address | [address] | | | [place] [address] | + + + | Home Phone [...] Team Providers + +------+ + | Care Gas Appliance Repairer Name | Role | Phone | + [...] [address]ndt | | | | | [address] | [place], | | | | | Mailcode: [place] | [place] [address] | | | | | [place], [place] | | | | | | [address] | | | | | | [phone] | | | +--------+ + + + [...] [place] | | | | | | [address] | | | | | | [phone] | | | | | | | | +--------+ + + + + | 12/10/ | Office | Neurological Surgery | April Beck MD | | | 2019 | Visit | | [address] | | | | | | [address] | | | | | | [place] | | | | | | [address] | | | | | | [phone] | | | | | | | | +--------+ + + + + documented as of this encounter Visit Diagnoses Not on filedocumented in this encounter"
--- OUTSIDE RECORDS SUMMARY | ~2019-11-28 | XMS | Encounter Summary ---
Demographics + + + | Address | [address] | | | [place] [address] | + + + | Home Phone | | + + + | Preferred Language | Unknown | + + + | Marital Status | Single | + + + | Congregation Affiliation | NON | + + + | Race | White | + + + | Ethnic Group | Not or | + + + Author + + + | Author | [facility] | + + + | Organization | [facility] | + + + | Address [...] Team Providers + +------+ + | Care Butter Fat Tester Name | Role | Phone | [...] | +--------+ + + + + | 05/28/ | Documentati | SOCIAL WORK | Robert, | Social Work Notes | | 2014 | on | AMBULATORY [address] | [address] | | | | | [address] | [address] | | | | | Mailcode: CH6A | [facility] [address] | | | | | [place], [place] | [place] | | | | | [address] | [address] | | | | | [phone] | | | +--------+ + + + [...] | | 2019 | | | [place] [address] | | | | | | [place], [place] | | | | | | [address] | | | | | | [phone] | | | | | | | | +--------+ + + + + | 12/10/ | Office | Neurological Surgery | April Beck MD | | | 2020 | Visit | | [address] | | | | | | [address] | | | | | | [place] | | | | | | [address] | | | | | | [phone] | | | | | | | | +--------+ + + + + documented as of this encounter Visit Diagnoses Not on filedocumented in this encounter"
--- OUTSIDE RECORDS SUMMARY | ~2019-11-28 | XMS | Encounter Summary ---
Demographics + + + | Address | [address] | | | [place] [address] | + + + | Home Phone [...] Providers + +------+ + | Care Electrical Logger Name | Role | Phone | + +------+ + | Tiff Chapin | PCP | | + +------+ + Reason for Visit + + + | Reason | Comments | + + + | Post-discharge | s/p admission 05/12/15 - 05/20/15: T6-T7 laminectomy for | | follow-up | resection of tumor | + + + Encounter Details +--------+ + + + + | Date | Type | Department | Care Team | Description | +--------+ + + + + | 05/24/ | Telephone | Neurosurgery at | Rajinder Luis MD | Post-discharge | | 2015 | | [facility] | [address] | follow-up (s/p | | | | and Healing [address] | [place], [place] | admission 05/12/15 - | | | | [address] Mailcode: | [id number] | 05/20/15: T6-T7 | | | | [facility] | [phone] | laminectomy for | | | | Health and Healing, | | resection of tumor) | | | | | | | | | | Floor [facility] [place] | | | | | | [address] | | | | | | [phone] | | | +--------+ + + + [...] | | | | | | [place], [place] | | | | | | [address] | | | | | | [phone] | | | | | | | | +--------+ + + + + | 12/10/ | Office | Neurological Surgery | April Beck MD | | 2019 | Visit | | [address] | | | | | | [address] | | | | | | [facility] [place] | | | | | | [address] | | | | | | [phone] | | | | | | | | +--------+ + + + + documented as of this encounter Visit Diagnoses Not on filedocumented in this encounter"
--- OUTSIDE RECORDS SUMMARY | ~2019-11-28 | XMS | Encounter Summary ---
Demographics + + + | Address | [address] | | | [place] [address] | + + + | Home Phone [...] Team Providers + +------+ + | Care Office Secretary Name | Role | Phone | + +------+ + | Clare Franks MD | PCP | | + +------+ + Encounter Details +--------+ + + + + | Date | Type | Department | Care Team | Description | +--------+ + + + + | 01/26/ | Telephone | Spine Center at | Rajinder Lius MD | | | 2017 | | [facility] [address] | [address] | | | | | Ave Mailcode: | [place], [place] | | | | | [facility] | [address] | | | | | and [place], | [phone] | | | | | Building [address] | | | | | | [place], [place] | | | | | | [address] | | | | | | [phone] | | | +--------+ + + + [...] | | | | | | [place], [place] | | | | | | [address] | | | | | | [phone] | | | | | | | | +--------+ + + + + | 12/10/ | Office | Neurological Surgery | April Beck MD | | | 2019 | Visit | | [address] [facility] | | | | | | [address] | | | | | | [place], [place] | | | | | | [address] | | | | | | [phone] | | | | | | | | +--------+ + + + + documented as of this encounter Visit Diagnoses Not on filedocumented in this encounter"
--- OUTSIDE RECORDS SUMMARY | ~2019-11-28 | XMS | Encounter Summary ---
Demographics + + + | Address | [address] | | | [place] [address] | + + + | Home Phone [...] Team Providers + +------+ + | Care Local Government Legislator Name | Role | Phone | + [...] | Procedures | [address] | [address] [place] | | | | | MRI SPINE | [place], [place] | Research | | | | | LUMBAR WWO | [address] | Center | | | | | CONTRAST [place] | Phone: | [place], [place] | | | | | MRI, LUMBAR | [phone] | [address] | | | | | SPINE COMBO | Fax: | Phone: | | | | | | [phone] | [phone] | | | | | | | Fax: | | | | | | | [phone] | +--------+--------+ + + + + Reason [...] [address] | | | | | [place] EST | [facility] | [place], [place] | | | | | PATIENT | Rd | [address] | | | | | LEVEL V | [place], [place] | Phone: | | | | | | [address] | [phone] | | | | | | | Fax: | | | | | | | [phone] | +--------+--------+ + + + + Encounter Details +--------+---------+ + + + | Date | Type | Department | Care Team | Description | +--------+---------+ + + + | 11/26/ | Office | Spine Center at | Raegan Doss, | Thoracic spine tumor | | 2018 | Visit | [facility] [address] | PA-C [address] | (Primary Dx) | | | | Ave Mailcode: | Ave [place], [place] | | | | | [facility] | [address] | | | | | natacha [place], | [phone] | | | | | [place] [address] | | | | | | [place], [place] | | | | | | [address] | | | | | | [phone] | | | +--------+---------+ + + + [...] intramedullary low grade glioneuronal spinal cord [facility], the most recent surgery being on 01/13/17. [...] imaging but this was never received by [facility]. She has recently decided to move to [place] where her boyfriend lives. Ht 1.6 m (5' 3"), Wt 72.6 kg (160 lb), BP 123/73, Pulse 75, BMI 28.34 kg/(m^2). PE: Alert, oriented x3. Speech clear, fluent. Thoracic incision: healed well. Decreased LT sensation to LLE, some deep pressure sensation intact. Patchy LT sensation to RLE including foot. LLE strength at 5/5 - HF, KF, KE, ADF, APF. RLE strength at 5/5 - HF, KF, KE, APF. / in ADF. Imagin11/26/17 Thoracic MRI wwo - [...] wwo in 1 year [facility] [address] [place] [address] documented in this encounter Plan [...] | | | | | | [place], [place] | | | | | | [address] | | | | | | [phone] | | | | | | | | +--------+ + + + + | 12/10/ | Office | Neurological Surgery | April Beck MD | | | 2019 | Visit | | [address] | | | | | | [address] | | | | | | [place], [place] | | | | | | [address] | | | | | | [phone] | | | | | | | [...]
--- OUTSIDE RECORDS SUMMARY | ~2019-11-28 | XMS | Encounter Summary ---
Demographics + + + | Address | [address] | | | [place] [address] | + + + | Home Phone [...] Team Providers + +------+ + | Care Referral Nurse Name | Role | Phone | [...] Spinal cord | Raegan Nieves, | [address] | | | | | tumor | PA-C [address] | Ave | | | | | Procedures | [address] | Mailcode: | | | | | PHYSICAL | [place], [place] | [facility] | | | | | THERAPY | [address] | for Health | | | | | REFERRAL | Phone: | and Healing, | | | | | | [phone] | Building 1, | | | | | | Fax: | [address] Floor | | | | | | [phone] | [place], [place] | | | | | | | [address] | | | | | | | Phone: | | | | | | | [phone] | | | | | | | Fax: | | | | | | | [phone] | +--------+--------+ + + + + Encounter Details +--------+ + + + + | Date | Type | Department | Care Team | Description | +--------+ + + + + | 09/14/ | Tax Services Intern | Neurosurgery at | Raegan Doss, | Spinal cord tumor | | 2015 | | [place] [facility] | PA-C [address] | (Primary Dx) | | | | and Healing [address] | [address] [place], [place] | | | | | [address] Mailcode: | [address] | | | | | [facility] | [phone] | | | | | Health and Healing, | | | | | | [facility] | | | | | | [place], [place] | | | | | | [address] | | | | | | [phone] | | | +--------+ + + + [...] | | | | | | [place], [place] | | | | | | [address] | | | | | | [phone] | | | | | | | | +--------+ + + + + | 12/10/ | Office | Neurological Surgery | April Beck MD | | | 2020 | Visit | | [address] [facility] | | | | | | [address] | | | | | | [place], [place] | | | | | | [address] | | | | | | [phone] | | | | | | | | +--------+ + + + + documented as of this encounter Visit Diagnoses + + | Diagnosis | + + | 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
--- OUTSIDE RECORDS SUMMARY | ~2019-11-28 | XMS | Encounter Summary ---
Demographics + + + | Address | [address] | | | [place] [address] | + + + | Home Phone | | + + + | Preferred Language | Unknown | + + + | Marital Status | Single | + + + | Orthodoxy Affiliation | NON | + + + [...] Team Providers + +------+ + | Care Hospital Mortician Name | Role | Phone | + [...] | | Shwetha Mailcode: [facility] | Ave [place], [place] | | | | | [facility] | [address] | | | | | and [address], | [phone] | | | | | [facility] | | | | | | [place], [place] | | | | | | [address] | | | | | | [phone] | | | +--------+ + + + [...] | | | | | | [place] [facility] [place] | | | | | | [address] | | | | | | [phone] | | | | | | | | +--------+ + + + + | 12/10/ | Office | Neurological Surgery | April Beck MD | | | 2019 | Visit | | [address] [facility] | | | | | | [address] | | | | | | [place] | | | | | | [address] | | | | | | [phone] | | | | | | | | +--------+ + + + + documented as of this encounter Visit Diagnoses Not on filedocumented in this encounter"
--- OUTSIDE RECORDS SUMMARY | ~2019-11-28 | XMS | Encounter Summary ---
Demographics + + + | Address | [address] | | | [place] [address] | + + + | Home Phone [...] Team Providers + +------+ + | Care Wax Pattern Repairer Name | Role | Phone | [...] [facility] | | | | | [place], [place] | [place] | | | | | [address] | [address] | | | | | [phone] | | | +--------+ + + + [...] | | 2019 | | | [facility] [address] | | | | | | [place], [place] | | | | | | [address] | | | | | | [phone] | | | | | | | | +--------+ + + + + | 12/10/ | Office | Neurological Surgery | April Beck MD | | | 2020 | Visit | | [address] | | | | | | [address] | | | | | | [place] | | | | | | [address] | | | | | | [phone] | | | | | | | | +--------+ + + + + documented as of this encounter Visit Diagnoses Not on filedocumented in this encounter"
--- OUTSIDE RECORDS SUMMARY | ~2019-11-28 | XMS | Encounter Summary ---
Demographics + + + | Address | [address] | | | [place] [address] | + + + | Home Phone [...] Team Providers + +------+ + | Care Drilling Machine Operator Name | Role | Phone | + +------+ + | Damir Sy MD | PCP | | + +------+ + Encounter Details +--------+ + + + + | Date | Type | Department | Care Team | Description | +--------+ + + + + | 10/01/ | Procedure | Diagnostic Imaging | | | | 2018 | Pass | Services at [facility] | | | | | | [address] | | | | | | [place] | | | | | | [facility] | | | | | | [place], [place] | | | | | | [address] | | | | | | [phone] | | | +--------+ + + + [...] | | 2019 | | | [facility] [address] | | | | | | [place] | | | | | | [address] | | | | | | [phone] | | | | | | | | +--------+ + + + + | 12/10/ | Office | Neurological Surgery | April Beck MD | | | 2020 | Visit | | [address] | | | | | | [address] | | | | | | [place] | | | | | | [address] | | | | | | [phone] | | | | | | | | +--------+ + + + + documented as of this encounter Visit Diagnoses Not on filedocumented in this encounter"
--- OUTSIDE RECORDS SUMMARY | ~2019-11-28 | XMS | Encounter Summary ---
Demographics + + + | Address | [address] | | | [place] [address] | + + + | Home Phone [...] | + + +---------+ + | Concepcion oT | ECON | Unknown | | + + +---------+ + | Judit Fagan | ECON | Unknown | | + + +---------+ + Care Team Providers + +------+ + | Care Entrepreneur Name | Role | Phone | + [...] | | | | tumor | [facility] [address] | | | | | | Procedures | [address] | | | | | | MRI SPINE | [place], [place] | | | | | | THORACIC WWO | [address] | | | | | | CONTRAST | Phone: | | | | | | | [phone] | | | | | | | Fax: | | | | | | | [phone] | | +--------+--------+ + + + + [...] | | | | | | [address] | [address] | | | | | | [address] | [address] | | | | | | Rd [facility] | [facility] [place] | | | | | | Hospital | [address] | | | | | | [place], [place] | Phone: | | | | | | [address] | [phone] | | | | | | Phone: | Fax: | | | | | | [phone] | [phone] | +--------+--------+ + + + + Encounter Details +--------+---------+ + + + | Date | Type | Department | Care Team | Description | +--------+---------+ + + + | 10/19/ | Office | Neurosurgery at | Raegan Doss, | Spinal cord tumor | | 2016 | Visit | [facility] | PA-C [address] | (Primary Dx) | | | | and Healing [address] | [address] [place], [place] | | | | | [address] Mailcode: | [address] | | | | | 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 She discharged to [facility] for 2-3 weeks a nd make substantial [...] her boyfriend and is moving to [facility] next month. She denies having any [...] well. Plan: -Patient discussed with Dr. Luis -Pau in 3 months with a repeat thoracic MRI wwo prior -Follow up with [facility] outpatient therapy as scheduled NEUROSURGERY AT [facility] [address] Mailcode: [place] [address] documented in this encounter Plan [...] | | | | | | [place], [place] | | | | | | [address] | | | | | | [phone] | | | | | | | | +--------+ + + + + | 12/10/ | Office | Neurological Surgery | April Beck MD | | | 2019 | Visit | | [address] | | | | | | [address] | | | | | | [place], [place] | | | | | | [address] | | | | | | [phone] | | | | | | | [...]
--- OUTSIDE RECORDS SUMMARY | ~2019-11-28 | XMS | Encounter Summary ---
Demographics + + + | Address | [address] | | | [place] [address] | + + + | Home Phone [...] Team Providers + +------+ + | Care Fibreglass Gun Hand Name | Role | Phone | [...] | | Therapy | Weakness of | Raegan Nieves | | | | | | right lower | PAAndrewC [address] | | | | | | extremity | [address] | | | | | | Procedures | [place], [place] | | | | | | OCCUPATIONAL | [address] | | | | | | THERAPY | Phone: | | | | | | REFERRAL | [phone] | | | | | | | Fax: | | | | | | | [phone] | | +--------+--------+ + + + + [...] | | Therapy | Weakness of | Raegan Nieves, | | | | | | right lower | PAAndrewC [address] | | | | | | extremity | [address] | | | | | | Procedures | [place], [place] | | | | | | PHYSICAL | [address] | | | | | | THERAPY | Phone: | | | | | | REFERRAL | [phone] | | | | | | | Fax: | | | | | | | [phone] | | +--------+--------+ + + + + Consult to [place] (Routine) +--------+--------+ + + + + | Status | Reason | Specialty | Diagnoses / | Referred By | Referred To | | | | | Procedures | Contact | Contact | +--------+--------+ + + + + | Closed | | Spine | Diagnoses | Luis, | Luis, | | | | | Weakness of | Rajinder Fisher MD | Rajinder Fisher MD | | | | | right lower | [address] | [address] | | | | | extremity | Ave | Ave | | | | | Hyperreflexi | [place], [place] | [facility] [place] | | | | | a Thoracic | [address] | [address] | | | | | spine tumor | Phone: | Phone: | | | | | Procedures | [phone] | [phone] | | | | | SURGICAL | Fax: | Fax: | | | | | CASE REQUEST | [phone] | [phone] | +--------+--------+ + + + + Reason [...] + + | 10/01/ | Hospital | [facility] [address] | Tavo English | | | 2019 - | Encounter | [address] Tierra Mai MD [address] | | | | | [facility], | [address] | | | 10/08/ | | [place] [address] | [place], [place] | | | 2018 | | [phone] | [address] | | | | | | [phone] | | | | | | | | | | | | Nanette Chapin MD | | | | | | [address] | | | | | | [address] | | | | | | [place], [place] | | | | | | [address] | | | | | | [phone] | | | | | | | | | | | | Shahram Medina MD | | | | | | [address] | | | | | | [place], [place] | | | | | | [address] | | | | | | [phone] | | | | | | | | | | | | Rajinder Luis MD | | | | | | [address] | | | | | | [place], [place] | | | | | | [address] | | | | | | [phone] | | | | | | | [...] documented as of this encounter Discharge Summaries Raegan Doss PA-C - 10/08/2018 10:36 AM PDTFormatting of this note might be different f rom the original. NEUROSURGERY DISCHARGE SUMMARY: Patient: Qiana Worrell Admission Date: 10/01/2018 Discharge Date: 10/08/2018 Attending Physician: Rajinder Luis MD PCP: PATRIC Flores Service: [facility] Neurosurgery Diagnoses Principal Final Diagnosis: Progressive thoracic [...] an appointment with Raegan Doss PA-C at 9:15 AM on 10/23/18. This will be on the 1 2th floor at the [facility] on the [facility] located at [address] [place] [address]. Please call [phone] if you have any questions or concerns [...] (10/05/18 1244) Discharge Patient To: [facility] Does patient have a planned readmission: No Discharge Summary Completed?: Yes. 10/08/2018 Discharging Provider: RAEGAN DOSS PA-C Date Completed: 10/08/2018 Time Completed: 10:36 AM Discharging Attending: Rajinder Luis MD [facility] [address] [place] [address] documented in this encounter Medications at Time [...] encounter Progress Notes Raegan Doss PA-C - 10/08/2018 10:07 AM PDTFormatting of this note might be different f rom the original. Neurosurgery Progress Note Hospital Day:7 Author; RAEGAN DOSS PA-C Attending Physician: Rajinder Luis MD [...] To [facility] once accepted, hopeful for today. RAEGAN DOSS PA-C [facility] [address] [place] [address] dams, PHILIPPE Mena - 10/07/2018 8:33 AM PDT Neurosurgery Progress Note Hospital Day:6 Author; RAEGAN DOSS PA-C Attending Physician: Rajinder Luis MD Interval Hx: -Patient had a more painful night, thinks this is related to movement/positioning. Doing we ll now, pain at 11/15. Reports stronger R leg post-op, but still [...] in bed, on ppx lovenox. Dispo: To [facility] once accepted. RAEGAN DOSS PA-C [facility] [address] [place] [address] Daniel Arechiga MD - 10/06/2018 11:06 AM [...] WORRELL Routine Cultures PROCEDURE: Strep Screen Culture [[id number]: 11/05/2017 16:4 4 PDT P1] SOURCE: Throat STARTED: 11/05/2017 20:3 9 PDT FREE TEXT SOURCE: BODY SITE: FINAL REPORTS Final Report [] Verified Date/Time: 11/07/2017 11:07 PDT No beta Strep isolated. Order Comments O1: Strep Screen Culture (CULTURE THROAT STREP SCREEN - CGA - Ordering-Phys: CLARE GRAVES) Location: [facility] Performing Locations P1: This test was performed at: [facility] Lab Lab Results Component Value Date [...] Please contact the neurosurgery blackburn on-call pager [phone] with questions. Daniel Barahona M.D. Neurosurgery PGY-1 [...] Delivery Device: None (room a ir) (10/05/18 3588) General: 27 y.o. female in NAD Neuro: [...] control, planning for IPR Elif Mcclain PA-C [facility] [address] [place], [place] [id number] ong, [place] Kim - 10/04/2018 8:39 AM PDT Neurosurgery Progress [...] noted deficits below Delt Tri Bi WE Dry Roller HF KE APF ADF Left 5 5 [...] SPINE THOR / LUMB WWO CONTRAST Order: [id number] Performed: 10/01/2018 17:52 Status: Final result Visible [...] Secondary to clinical course Julio Wahl PA-C [facility] [address] [place] [address] Carrol Dave MD,P - 10/03/2018 10:00 PM PDTNeurosurgery Post-Op Check [...] bilateral lower extremities. Neurologically Stable; continue care CARROL REYES MD,PhD Resident Neurological Surgery Pgr. [id number] Raegan Palmer PA-C - 10/03/2018 8:21 AM PDT Neurosurgery Progress Note Hospital Day:2 Author; RAEGAN DOSS PA-C Attending Physician: Rajinder Luis MD [...] Hold all anticoagulation. Dispo: To [place] today. RAEGAN DOSS PA-C [facility] [address] [place] [address] Rajinder Antony MD - 10/02/2018 7:51 PM PDTDiscussion held with patient and family and PA bedside. 1. MRI with right sided hypointensity with fluid cyst surround 2. Plan for repeat surgery at the lower thoracic region for resection and decomopression o f tumor and cord displacement. 3. Potential loss of right lower extremity function. 4. For OR tomorrow. o Chris beauchamp MD - 10/02/2018 3:23 PM PDTNeurosurgery Preoperative [...] surgery? No Chris Cano MD Neurosurgery PGY2 [id number] Julio Rendon PA-C - 10/02/2018 8:22 AM PDT Neurosurgery [...] noted deficits below Delt Tri Bi WE Dry Roller HF KE APF ADF Left 5 5 [...] SPINE THOR / LUMB WWO CONTRAST Order: [id number] Performed: 10/01/2018 17:52 Status: Final result Visible [...] clinical course, pending surgery Julio Wahl PA-C [facility] [address] [place] [address] documented in this enc ounter Plan of [...] | | | 2019 | | | PHILIPPE-Pau [address] | | | | | | [place], [place] | | | | | | [address] | | | | | | [phone] | | | | | | | | +--------+ + + + + | 12/10/ | Office | Neurological Surgery | April Beck MD | | | 2019 | Visit | | [address] | | | | | | [address] | | | | | | [place], [place] | | | | | | [address] | | | | | | [phone] | | | | | | | [...] Attending | | Surgeon: Rajinder Luis MD Insurance Producer(s): Joby Thibodeaux MD. | | Preoperative Diagnosis: [...] the operating room on a | | [facility]. General endotracheal anesthesia was induced by the Anesthesia team | | without complication. The neuromonitoring team placed the necessary electrodes for | | monitoring of somatosensory evoked potentials and motor evoked potentials. The patient | | was then placed in a prone position on a Hair OSI Nice table. All pressure points | | were [...] 10/03/2018 | | 19:49:32DT: 10/03/2018 20:24:12Job #: [id number] | + + X-RAY SPINE THORACIC 1 [...] BRAMBILA | 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 Spine, | | | | | | [...] | + + + + + | [facility] | [address] | [place] [address] | | | PATHOLOGY | [address] | | | + + + + + INTRAOPERATIVE NEURO MONITORING (10/03/2018) + + + | Narrative | Performed At | + + + | Patient Name: Qiana Worrell Date of : 1990 | | | Date of Test: 10/03/2018 Place of | | | Service: IP Intra Op (28) [id number] INTRAOPERATIVE NEURO | | | MONITORING IOM: [...] | | | Norma Jordan MD, MA, [facility] Vending Machine Host/Hostess of Neurology | | | Suggested CPT: G0453 - IOM Continuous divided attention to single | | | patient x 10 @ 15 min(s[place] [address] - Short Latency EP's | | | Upper AND Lower extremities 15244 - Central Motor EP's Upper AND | [...] LABORATORY | [address] | [place] [address] | | | SERVICES, | [address] [...] | + + + + + | [facility] | [address] | [place] [address] | | | SERVICES, | [address] [...] | + + + + + | [facility] | [address] | [place] [address] | | | SERVICES, | [address] [...] | + + + + + | [facility] | [address] | [place] [address] | | | SERVICES, CORE | JEAN [...] | + + + + + | [facility] | [address] | [place] [address] | | | SERVICES, CORE | JEAN [...] | | | LABORATORY | | | TOGOLESE | | | SERVICES, | | | [...] LABORATORY | [address] | [place] [address] | | | SERVICES, CORE | [address] [...] | + + + + + | [facility] | [address] | [place] [address] | | | SERVICES, CORE | [address] | | | + + + + + ED INFORMATION EXCHANGE (10/01/2018 12:03 PM PDT) + + | Specimen | + + | | + + + + + | Narrative | Performed At | + + + | [id number]:GURVINDER [id number] Criteria Met Has | [facility] | | Guidelines PDMP Security and Safety No recent Security Events | MEDICAL | | currently on file ED Care Guidelines from [facility] and | [employer] | | [facility] Last Updated: 02/08/17 11:58 AM [facility] | | | Emergency DepartmentSuggested Care RecommendationsAuthor: Cecily Najera, | | | [facility] centerstephanie Mnewqs Update: | | | 02/08/2017Medical:- Thoracic intramedullary [...] | | not been able to work, receivesBracletI and food stamps.Community | | | Supports-Primary care provider/clinic: Dr. Clare Chowdary, | | | [facility], - Neurosurgery: [facility], | | | Rajinder Luis MD and PHILIPPE Mckeon - [phone]-Insurance care | | | coordinator: Estelita, -Housing: [place] [facility] [facility] [place] with | | | mother Judit and [...] E.D. Visit Count (12 mo.) Facility Visits [facility] and | | | [facility] 1 [facility] 1 Total 2 Note: | | | Visits indicate total known visits. Recent Emergency Department | | | Visit Summary Date Facility [facility] Type Diagnoses or Chief | | | Complaint Oct 01, [address] [facility] [place] | | | [place] Emergency 10,800. MRI Jul 06, 2018 [facility]. | | | 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 Inpatient Rehab Spinal | | [...] | | | unspecified Jul 06, [address] [facility] | | | [place] Neuro Surgery 10,151. 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, soft tissue, and | | | skin Care Providers Provider PRC Type Phone Fax Service | | | Dates MARBIN CHAPIN, SURGICAL GARMENT INSPECTOR-BC Nurse Practitioner: Family Current | | | MADHAVI MONTANEZ, CEMENT MASON MAINTENANCE Stage Set Up Worker: Clinical ([phone]) | | | [phone] Current CORNELIO VILLASENOR , CESARIO Agriculture Intern ([phone]) | | | [phone] Current Draft Portal This patient | | | has registered at the [facility] and Science [facility] | | | Emergency Department For more information visit: | | | [email or web address] | | | [email or web address] andnbsp PLEASE NOTE: [...] | or completeness of information provided. 2019 [employer] | | | Cash Check Card. - [email or web address] | | + + + + + | Procedure Note | + + | Service Account, Rtf Results Inbound - 10/01/2018 12:04 PM PDT Formatting of this | | note might be different from the original.COLLECTIVE?NOTIFICATION?10/01/2018 | | 12:01?QIANA WORRELL? Met Has Guidelines PDMPSecurity and | | SafetyNo recent Security Events currently on fileED Care Guidelines from [facility] | | and [facility] Updated: 02/08/17 11:58 AM [facility] Emergency DepartmentSuggested | | Care RecommendationsAuthor: Angie Chavez Pfowwh | | Update: 02/08/2017Medical:- Thoracic intramedullary spinal [...] provider/clinic: Dr. Sparks | | Karma Chowdary, [facility], - Neurosurgery: Rajinder QURESHI | | MD Toby and PHILIPPE Mckeon - [phone]-Insurance health care consultant: [place]elita, | | [phone]-Housing: living [place] [facility] [place] with mother Judit and 2 y/o daughter [...] 0 E.D. Visit Count (12 mo.)Facility Visits [facility] | [facility] 1 [facility] 1 Total 2 Note: Visits indicate total | | known visits. Recent Emergency Department Visit SummaryDate Facility [facility] State Type | | Diagnoses or Chief Complaint Oct 01, [address] [facility] [place] | | Emergency 10,800. MRI Jul 06, 2018 [facility]. 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 Inpatient Rehab | | Spinal [...] dysfunction of bladder, unspecified Jul 06, [address] [facility] | | [place] Neuro Surgery 10,151. Thoracic Spine Tumor 18,400. Neoplasm of | | unspecified behavior of bone, soft tissue, and skin Care ProvidersProvider PRC Type | | Phone Fax Service Dates MARBIN CHAPIN, SURGICAL GARMENT INSPECTOR- Nurse Practitioner: Family Current | | MADHAVI MONTANEZ LCSW Stage Set Up Worker: Clinical Current ASIMRRDarion, | | CORNELIO Bates ND Agriculture Intern Current [facility] | | patient has registered at the [facility] Emergency Department | | For more information visit: | | [email or web address] andnbsp | | PLEASE NOTE: 1. Any [...] completeness of information | | provided.? 2019 [employer] - [email or web address] | |Oct 01, [address] [facility] [place] Emergency | | 10,800. MRI | | | |Jul 06, 2018 [facility] [place] Emergency | | 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in | | Anesthesia of skin | | Allergy status to sulfonamides status | | Other emt intermediate (current) drug therapy | | Brown-Sequard syndrome | | | | | | | |Recent Inpatient Visit Summary | |Date Facility City State Type Diagnoses or Chief Complaint | |[facility] [place] [place] [facility] | | Spinal [...] unspecified | | | |Jul 06, [address] [facility] [place] Neuro Surgery | | 10,151. Thoracic Spine Tumor | | 18,400. 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in | | | | | | | |Care Providers | |Provider PRC Type Phone Fax Service Dates | |MARBIN CHAPIN, SURGICAL GARMENT INSPECTOR- Nurse Practitioner: Family Current | |MADHAVI MONTANEZ LCSW Stage Set Up Worker: Clinical Current | |CORNELIO VILLASENOR , CESARIO Agriculture Intern Current | | | |Collective Portal | |This patient has registered at the [facility] Emergency Departmen t | |For more information visit: [email or web address] | |andnbsp PLEASE NOTE: | | 1. [...] information provided. | | | |? 2019 [employer] - [email or web address] | + + + + + + + | Performing | Address | City/State/Zipcode | Phone Number | | Organization | | | | + + + + + | [employer] | [address] | [place], [place] | [phone] | | [employer] | [address] | [address] | | + + + + + [...] | | First dose on [facility] 10/03/18 at | | | | | [...] 19 12:48 | | | | | Sun10/02/18 at 1215 | | PM PDT | [...] 2:03 | | | | | dose, 10/01/18 at 1430 | | PM PDT [...] PDT | | | | | Starting Sun10/03/18 at 1812, | | | | | | | Until Sun10/03/18 at 2214, severe | | | | [...] | | | | | NEEDED, Starting Sun10/02/18 at | | | | | [...] | | | | | NEEDED, Starting Sun10/04/18 at | | | | | | [...] | | | | | NEEDED, Starting Sun10/02/18 | | PM PDT | | | | | at 1457, Until Sun10/04/18 at | | | | | | [...] | | | | CONTINUOUS, Starting Miriam 10/03/18 | | PM PDT | | [...] | | | | | CONTINUOUS, Starting [facility] 10/03/18 | | AM PDT | | | | | at 2014, Until 10/07/18 at | | | | | | [...] 4:43 | | | | | dose, Sun10/01/18 at 1715 | | PM PDT | [...] | | | 10/06/18 at 1744, Until Sun | | | | | [...] | | | | | | | 2021, Until Sun10/02/18 at 1458, | | | [...] | | | | | 10/08/18 at 181, 1st line - for no | | [...] | | | | ONCE, 1 dose, 10/04/18 at 0830 | | AM PDT | | | | + +---------+ + +---+---+ +---+---+ | | | +---+---+ + +-------+ +------+---+---+ | tiZANidine (ZANAFLEX) tablet 4 | Given | 10/09/19 | 4 mg | | | | mg 4 mg, oral, THREE TIMES DAILY | | 19 1:17 | | | | | NEEDED, Starting [facility] 10/03/18 | | AM PDT | [...]
--- OUTSIDE RECORDS SUMMARY | ~2019-11-28 | XMS | Encounter Summary ---
Demographics + + + | Address | [address] | | | [place] [address] | + + + | Home Phone [...] Team Providers + +------+ + | Care Technical Support Consultant Name | Role | Phone | + +------+ + | Damir Sy MD | PCP | | + +------+ + Encounter Details +--------+ + + + + | Date | Type | Department | Care Team | Description | +--------+ + + + + | 07/08/ | Procedure | [address] Intra [address] | | | | 2018 | Pass | [address] | | | | | | [address] [facility] | | | | | | Hospital Admitting | | | | | | Desk Located on the | | | | | | 9th floor | | | | | | [place], [place] | | | | | | [address] | | | +--------+ + + + [...] | | | | | | [place], [place] | | | | | | [address] | | | | | | [phone] | | | | | | | | +--------+ + + + + | 12/10/ | Office | Neurological Surgery | April Beck MD | | | 2020 | Visit | | [address] | | | | | | [address] | | | | | | [place], [place] | | | | | | [address] | | | | | | [phone] | | | | | | | | +--------+ + + + + documented as of this encounter Visit Diagnoses Not on filedocumented in this encounter"
--- OUTSIDE RECORDS SUMMARY | ~2019-11-28 | XMS | Encounter Summary ---
Demographics + + + | Address | [address] | | | [place] [address] | + + + | Home Phone [...] Team Providers + +------+ + | Care Morphologist Name | Role | Phone | + [...] 2014 | anned | Services [id number] | [phone] | | | | | [address] | | | | | | Mailcode: OP17A | | | | | | [facility] | | | | | | [place], [place] | | | | | | [address] | | | | | | [phone] | | | +--------+ + + + [...] 12/10/ | Appointment | Radiology | Raegan oDss, | | | 2019 | | | [facility] [address] | | | | | | [place], [place] | | | | | | [address] | | | | | | [phone] | | | | | | | | +--------+ + + + + | 12/10/ | Office | Neurological Surgery | April Beck MD | | | 2019 | Visit | | [address] | | | | | | [address] | | | | | | [place], [place] | | | | | | [address] | | | | | | [phone] | | | | | | | | +--------+ + + + + documented as of this encounter Visit Diagnoses Not on filedocumented in this encounter"
--- OUTSIDE RECORDS SUMMARY | ~2019-11-28 | XMS | Encounter Summary ---
Demographics + + + | Address | [address] | | | [place] [address] | + + + | Home Phone [...] Providers + +------+ + | Care Glass Fitter Name | Role | Phone | + +------+ + | Tiff Chapin | PCP | | + +------+ + Encounter Details +--------+ + + + + | Date | Type | Department | Care Team | Description | +--------+ + + + + | 09/08/ | Document-Sc | Health Information | Unknown . | | | 2016 | anned | Services [id number] | | | | | | [address] | | | | | | Mailcode: OP17A | | | | | | [facility] | | | | | | [place], [place] | | | | | | [address] | | | | | | [phone] | | | +--------+ + + + [...] | | | | | | [place] [facility] [place] | | | | | | [address] | | | | | | [phone] | | | | | | | | +--------+ + + + + | 12/10/ | Office | Neurological Surgery | April Beck MD | | | 2019 | Visit | | [address] | | | | | | [address] | | | | | | [facility] [place] | | | | | | [address] | | | | | | [phone] | | | | | | | [...]
--- OUTSIDE RECORDS SUMMARY | ~2019-11-28 | XMS | Encounter Summary ---
Demographics + + + | Address | [address] | | | [place] [address] | + + + | Home Phone | | + + + | Preferred Language | Unknown | + + + | Marital Status | Single | + + + | Jain Affiliation | NON | + + + [...] Team Providers + +------+ + | Care Third Grade Teacher Name | Role | Phone | [...] | | | | specified | [facility] [address] | | | | | | disorders of | [address] | | | | | | nervous | [place], [place] | | | | | | system in | [address] | | | | | | diseases | Phone: | | | | | | classified | [phone] | | | | | | elsewhere | Fax: | | | | | | Thoracic | [phone] | | | | | | spine [...] + + + + | 06/30/ | Formulator Compounder | [facility] | Raegan Doss, | 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[facility] [address] | PA-C [address] | (Primary Dx); Other | | | | Ave Mailcode: | Ave [place], [place] | specified disorders | | [facility] | [address] | of nervous system | | | | and Healing, | [phone] | in diseases | | | | Building [address] | | classified elsewhere | | | | [place], [place] | | | | | | [address] | | | | | | [phone] | | | +--------+ + + + [...] | | | | | | [place], [place] | | | | | | [address] | | | | | | [phone] | | | | | | | | +--------+ + + + + | 12/10/ | Office | Neurological Surgery | April Beck MD | | | 2019 | Visit | | [address] | | | | | | [address] | | | | | | [place], [place] | | | | | | [address] | | | | | | [phone] | | | | | | | [...]
--- OUTSIDE RECORDS SUMMARY | ~2019-11-28 | XMS | Encounter Summary ---
Demographics + + + | Address | [address] | | | [place] [address] | + + + | Home Phone [...] Team Providers + +------+ + | Care Phone Banker Name | Role | Phone | + +------+ + | Clare Franks MD | PCP | | + +------+ + Encounter Details +--------+ + + + + | Date | Type | Department | Care Team | Description | +--------+ + + + + | 02/14/ | Mechanical Maintenance | [facility] at | Raegan Doss, | | | 2017 | | [facility] [address] | PA-C [address] | | | | | Shwetha Mailcode: | [place], [place] | | | | | [facility] | [address] | | | | | and Solomon, | [phone] | | | | | [address] [address] | | | | | | [place], [place] | | | | | | [address] | | | | | | [phone] | | | +--------+ + + + [...] | | | | | | [place] [facility] [place] | | | | | | [address] | | | | | | [phone] | | | | | | | | +--------+ + + + + | 12/10/ | Office | Neurological Surgery | April Beck MD | | | 2020 | Visit | | [address] [facility] | | | | | | [address] | | | | | | [place], [place] | | | | | | [address] | | | | | | [phone] | | | | | | | | +--------+ + + + + documented as of this encounter Visit Diagnoses Not on filedocumented in this encounter"
--- OUTSIDE RECORDS SUMMARY | ~2019-11-28 | XMS | Encounter Summary ---
Demographics + + + | Address | [address] | | | [place] [address] | + + + | Home Phone [...] Team Providers + +------+ + | Care Collective Bargaining Specialist Name | Role | Phone | [...] | spine tumor | [place], [place] | [place], [place] | | | | | Procedures | [address] | [address] | | | | | MRI SPINE | Phone: | Phone: | | | | | THORACIC WWO | [phone] | [phone] | | | | | CONTRAST | Fax: | Fax: | | | | | [place] MRI, | [phone] | [phone] | | | | | DORSAL SPINE [...] | | | | spinal cord | [place], [place] | [place], [place] | | | | | Procedures | [address] | [address] | | | | | REQUEST TO | Phone: | Phone: | | | | | SURGERY | [phone] | [phone] | | | | | RAILROAD AUDITOR | Fax: | Fax: | | | | | [place] BX/EXCIS | [phone] | [phone] | | | | | SPIN | | | | | | | MARCELINOAMANDAIN | | | | | | | [place] | | | | | | [...] (Primary | | 2016 | Visit | [facility] | PA-C [address] | Dx); Spinal cord | | | | and Healing [address] [facility] [place] | tumor; Thoracic | | | | [address] Mailcode: | [id number] | spine tumor | | | | [facility] | [phone] | | | | | Health and [facility], | | | | | | [facility] | | | | | | Floor [place], [place] | | | | | | [address] | | | | | | [phone] | | | +--------+---------+ + + + [...] (WHO grade I) - pathology reviewed at [facility]. Following surgery, the patient was discharge to [facility] for continued intense rehabilitation. [facility] 06[facility]16[facility]15 to home and has been [...] intact at 2+. Motor: Delt Tri Bi Char Puller HF KE KF APF ADF Left 5 [...] result of consultation with Dany Peoples of [facility]. Please see below. A. Intramedullary spinal [...] long hx of dysuria symptoms NEUROSURGERY AT [facility] [address] Mailcode: [place] [address] documented in this encounter Plan [...] | | | | | | [place], [place] | | | | | | [address] | | | | | | [phone] | | | | | | | | +--------+ + + + + | 12/10/ | Office | Neurological Surgery | April Beck MD | | | 2019 | Visit | | [address] | | | | | | [address] | | | | | | [place], [place] | | | | | | [address] | | | | | | [phone] | | | | | | | [...] | | | | nodule at the Z9dssbi. | | | | | | 2. [...] SANTORO, | | | | | | MD I personally reviewed | | | | [...] | | | + +---------+ + + [place] ONLY (07/12/2015 2:45 PM PST) + + [...] | + + + + + | [facility] [employer] | [address] | [place] [address] | | | SERVICES, CORE | JEAN [...] LABORATORY | [address] | [place] [address] | | | SERVICES, CORE | PARK [...] | MOISE TILLMAN | [address] | [place] [address] | | | SERVICES, CORE | PARK [...]
--- OUTSIDE RECORDS SUMMARY | ~2019-11-28 | XMS | Encounter Summary ---
Demographics + + + | Address | [address] | | | [place] [address] | + + + | Home Phone [...] Providers + +------+ + | Care Hide Tanner Name | Role | Phone | + +------+ + | Damir Sy MD | PCP | | + +------+ + Encounter Details +--------+ + + + + | Date | Type | Department | Care Team | Description | +--------+ + + + + | 07/06/ | Procedure | Diagnostic Imaging | | | | 2017 | Pass | Services at [facility] | | | | | | [address] | | | | | | [place] | | | | | | [facility] | | | | | | [place], [place] | | | | | | [address] | | | | | | [phone] | | | +--------+ + + + [...] | | | | | | [place], [place] | | | | | | [address] | | | | | | [phone] | | | | | | | | +--------+ + + + + | 12/10/ | Office | Neurological Surgery | April Beck MD | | | 2019 | Visit | | [address] | | | | | | [address] | | | | | | [place], [place] | | | | | | [address] | | | | | | [phone] | | | | | | | | +--------+ + + + + documented as of this encounter Visit Diagnoses Not on filedocumented in this encounter"
--- OUTSIDE RECORDS SUMMARY | ~2019-11-28 | XMS | Encounter Summary ---
Demographics + + + | Address | [address] | | | [place] [address] | + + + | Home Phone [...] Providers + +------+ + | Care Hand Striper Name | Role | Phone | + [...] | | | | tumor | [facility] | | | | | | Procedures | [address] | | | | | | OCCUPATIONAL | [place], [place] | | | | | | THERAPY | [address] | | | | | | REFERRAL | Phone: | | | | | | | [phone] | | | | | | | Fax: | | | | | | | [phone] | | +--------+--------+ + + + + [...] | | | | tumor | [facility] [address] | | | | | | Procedures | [address] | | | | | | PHYSICAL | [place], [place] | | | | | | THERAPY | [address] | | | | | | REFERRAL | Phone: | | | | | | | [phone] | | | | | | | Fax: | | | | | | | [phone] | | +--------+--------+ + + + + [...] + + | 09/08/ | Hospital | [facility] [address] | Rajinder Luis MD | | | 2016 - | Encounter | [address] | [address] | | | | | [id number] [facility] | [place], [place] | | | 09/14/ | | [facility], | [address] | | | 2015 | | [place] [address] | [phone] | | | | | [phone] | | | +--------+ + + + [...] Rajinder Luis MD PCP: PATRIC Todd Service: [facility] Neurosurgery Diagnoses Principal Final Diagnosis: Recurrent [...] tumor, who [facility] after she woke up with lower extremity weakness and urinary incontinence. 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 Toby luu at [facility]. She has residual right lower extremity [...] with recommendation for IPR upon discharge. W hile on the hospital floor, the patient tolerated [...] on the 8t h floor at the [facility] on the [facility] located at [address], [place] [address]. Please call [phone] if you have any questions or concerns [...] 11:40 AM Discharging Attending: Rajinder Luis MD [facility] [address] [address] [place] [address] documented in this encounter Progress Notes Raegan [...] Thoracic incision: flat, dry, no erythema, intact. [place] present. Sensation: LT sensation intact intact above [...] 2324 09/14/15 1028 GLU 102* 136* 104* [id number] Current Medications: acetaminophen (TYLENOL) tablet 650 mg, [...] Routine wound care. Okay to shower/shampoo daily. Wale to be removed at 2 weeks post-op. [...] they have bed availability. Raegan Doss PA-C [facility] [address] [address] [address] dams, PHILIPPE Mena - 09/14/2015 8:57 AM [...] edges approximated well, no erythema, dry, intact. [place] in place. Sensation: LT sensation intact above [...] Ref Range Status 07/12/2015 Negative Negative Final [id number] Current Medications: acetaminophen (TYLENOL) tablet 650 mg, [...] Routine wound care. Okay to shower/shampoo daily. Wale to be removed at 2 weeks post-op. [...] effect. Will plan to stop ISS at [place]. ID/Heme: Afebrile. Leukocytosis at 15 today - possibly d/t steroids. Will cont to follow an d trend. DVT ppx: SCDs while in bed. Lovenox 40mg qHS for DVT ppx. Dispo: Appreciate CM involvement - application pending for [place]. Raegan Doss PA-C [facility] [address] [address] [address] dams, PHILIPPE Mena - 09/13/2015 10:26 AM [...] in place, draining clear yellow urine. Labs: [id number] Current Medications: acetaminophen (TYLENOL) tablet 650 mg, [...] Routine wound care. Okay to shower/shampoo daily. [place] to be removed at 2 weeks post-op. [...] once patient is able to ambulate to [facility]. Musculoskeletal/skin: Routine decubitus ulcer prevention. Appreciate PT/OT involvement. Endo: CBGs reasonable. 9U ISS used last 24 hours. Mild hyperglycemia likely 2/2 steroid eff ect. Will plan to stop ISS at [place]. ID/Heme: Afebrile. Will check CBC tomorrow AM. DVT ppx: SCDs while in bed. Lovenox 40mg qHS for DVT ppx. Dispo: Appreciate CM involvement - application pending for [place]. Raegan Doss PA-C [facility] [address] [facility] [address] Cesar Cox MD - 12/2015 11:40 AM [...] Daniels catheter, will attempt to wean today. Redd ctrolytes wnl. ID/HO: AF, WBC 9 downtrending [...] Care Unit Attending Progress Note Attending Pager #[phone] ICU Admission Reason Most Recent Value ICU [...] tions/additions as noted. Date of Service: 09/11/2015 [facility] DEPARTMENT: ANE ICU NEURO Place of Service:- Inpatient CSN: [id number] Suggested Modifier: GC - Resident Involved Suggested CPT: TO AUTOMOBILE RADIO REPAIRER DOS 09/11/2015 Author:Lesly Branch MD [address] [address] [facility] - 8:28 AM PST NEUROSURGERY PROGRESS [...] c/d/i. No surrounding erythema, swelling or drainage. [place] in place Endorses T12 sensory level Labs: [...] - blackburn status Please page adult resident day habilitation specialist [phone] with questions Yokasta Randall MD PGY-2, Neurosurgery 09/11/2015 8:28 [facility] 12:05 PM [facility] NEUROSURGERY PROGRESS NOTE Author: Ngoc Hernandez MD [...] Care Unit Attending Progress Note Attending Pager #[phone] ICU Admission Reason Most Recent Value ICU [...] on counseling and coordination of care.Seen with PA/EDITOR MAP Mannie. Please see t heir note for details. I reviewed the documented findings, all data and the recent imaging a vailable. Date of Service: 09/10/2015 [facility] DEPARTMENT: ANE ICU NEURO Place of Service:- Inpatient CSN: [id number] Suggested Modifier: GC - Resident Involved Suggested CPT: TO AUTOMOBILE RADIO REPAIRER DOS 09/10/2015 Author:Stephie Anders MD [address] [address] Tristen Hein ACN P - 09/10/2015 7:10 AM PST . Neuroscience Intensive Care Unit Team Progress Note NSICU ASSIGNED #[id number] ICU Admission Reason Most Recent Value ICU [...] thoracic 05/13/15 1634 119 Incision Upper back 09/09/15 2116 less than 1 Urethral Catheter Daniels 16 [...] e. Date of Service: 09/10/2015 AIXA Mahajan [facility] DEPARTMENT: [facility] ICU NEURO Place of Service:- Inpatient CSN: [id number] Suggested Modifier: None Suggested CPT: TO AUTOMOBILE RADIO REPAIRER DOS 09/10/2015 Author:AIXA Mahajan [place] [address] [place] [address] LEFilipe Pabon MD - 09/10/2015 2:58 AM [facility] NEUROSURGERY POST OPERATIVE CHECK Author: Filipe Nelson [...] bed Filipe Nelson MD Neurosurgery Resident Pager #[phone] documented in this en counter Plan of Treatment +--------+ + + + [...] | | | | | | [place], [place] | | | | | | [address] | | | | | | [phone] | | | | | | | | +--------+ + + + + | 12/10/ | Office | Neurological Surgery | April Beck MD | | | 2019 | Visit | | [address] | | | | | | [address] | | | | | | [place], [place] | | | | | | [address] | | | | | | [phone] | | | | | | | [...] | + + + + + | [facility] | [address] | [place] [address] | | | SERVICES, NINO | JEAN [...] LABORATORY | [address] | [place] [address] | | | SERVICES, CORE | JEAN [...] | + + + + + | [facility] LABORATORY | [address] | [place] [address] | | | SERVICES, NINO | PARK [...] | + + + + + | [facility] | [address] | [place] [address] | | | SERVICES, CORE | JEAN [...] PATTY | [address] | [place], [place] | | | ZELALEM HERRERA OF NURIA | [address] | [address] | | | TESTS | | | [...] | + + + + + | [facility] | [address] | [place] [address] | | | SERVICES, CORE | JEAN [...] MARQUAM | [address] | [place], [place] | | | ZELALEM HERRERA OF CARE | [address] | [address] | | | TESTS | | | [...] MARQUAM | [address] | [place], [place] | | | ZELALEM HERRERA OF CARE | [address] | [address] | | | TESTS | | | [...] BRAMBILA | [address] | [place], [place] | | | JAVIER POINT OF CARE | [address] | [address] | | | TESTS | | | [...] | | | POC | | | ZELLAEM HERRERA | | | | | | [...] MARQUAM | [address] | [place], [place] | | | ZELALEM HERRERA OF CARE | [address] | [address] | | | TESTS | | | [...] MARQUAM | [address] | [place], [place] | | | ZELALEM HERRERA OF CARE | [address] | [address] | | | TESTS | | | [...] BRAMBILA | [address] | [place], [place] | | | JAVIER POINT OF CARE | [address] | [address] | | | TESTS | | | [...] MARQUAM | [address] | [place] | | | ZELALEM HERRERA OF NURIA | [address] | [address] | | | TESTS | | | [...] MARQUAM | [address] | [place], [place] | | | ZELALEM HERRERA OF CARE | [address] | [address] | | | TESTS | | | [...] BRAMBILA | [address] | [place] | | | JAVIER POINT OF CARE | [address] | [address] | | | TESTS | | | [...] MARQUAM | [address] | [place] | | | ZELALEM HERERRA OF CARE | [address] | [address] | | | TESTS | | | [...] MARQUAM | [address] | [place], [place] | | | ZELALEM HERRERA OF CARE | [address] | [address] | | | TESTS | | | [...] BRAMBILA | [address] | [place], [place] | | | ZELALEM HERRERA OF CARE | [address] | [address] | | | TESTS | | | [...] MARQUAM | [address] | [place], [place] | | | ZELALEM HERRERA OF CARE | [address] | [address] | | | TESTS | | | [...] + | MOISE BRAMBILA | [address] | [place], [place] | | | JAVIER POINT OF CARE | [facility] | [address] | | | TESTS | | | [...] BRAMBILA | [address] | [place] | | | ZELALEM HERRERA OF NURIA | [address] | [address] | | | TESTS | | | | + + + + + OPERATION RECORD (09/10/2015 10:32 AM PST) + + | Transcriptions | + + | Rajinder Luis MD - 09/10/2015 8:47 AM PST Date of Service: 09/09/2015 Attending | | Surgeon: Rajinder Luis MD Agricultural Mechanic(s): Jere Story MD. | | Preoperative Diagnoses: [...] 2015 by | | Toby here at [facility]. She has residual right lower extremity [...] General endotracheal anesthesia was induced on the [facility]. | | Occlusive dressings were placed over [...] We | | attempted to use the SnapSensea ultrasonic aspirator, but the durotomy was fairly [...] carefully transferred | | back to the [facility]. She was extubated and she was taken to the recovery area | | in stable condition. At the end of the case, all instrument, sponge, needle counts were | | correct in 2 iterations.I, Rajinder Luis MD was scrubbed and actively participated | | performing the critical portions of the operation.BRII HenryJL/MODLDD: | | 09/10/2015 08:01:47DT: 09/10/2015 08:47:03Job #: [id number] | + + PROCEDURE NOTE (09/10/2015 10:25 [...] tumor resected. Cord | | | decompressed. Rajinder Enamorado MD was scrubbed and actively | | [...] | [facility] | [address] | [place], [place] | | | MIGUELANGEL HERRERA | [address] | [address] | | | TESTS | | | [...] | + + + + + | [facility] | [address] | [place] [address] | | | SERVICES, CORE | JEAN [...] | | | LABORATORY | | | SERBIAN | | | SERVICES, | | | [...] the MDRD equation recommended by the | [facility] | | National Kidney Disease Education [...] | + + + + + | [facility]ORY | [address] [facility] [facility] [facility] [address] | [place] [address] | | | NINO LEONARD | JEAN [...] LABORATORY | [address] | [place] [address] | | | SERVICES, CORE | PARK [...] | + + + + + | [facility] | [address] | [place] [address] | | | SERVICES, | JEAN CARLOS [...] LABORATORY | [address] | [place] [address] | | | SERVICES, | [address] [...] | + + + + + | [facility] | [address] | [place] [address] | | | SERVICES, CORE | JEAN [...] 0.7 U/mL | LABORATORY | | | SERVICESNINO | + + + + + + + + | Performing | Address | City/State/Zipcode | Phone Number | | Organization | | | | + + + + + | [place] [facility] | [address] | [place] [address] | | | NINO LEONARD | PARK [...] | + + + + + | [facility] | [address] | [place] [address] | | | SERVICES, NINO | JEAN [...] | | | LABORATORY | | | SERBIAN | | | SERVICES, | | | [...] | + + + + + | [facility] | [address] | [place] [address] | | | SERVICES, CORE | [address] | | | + + + + + INTRAOPERATIVE NEURO MONITORING (09/09/2015) + + + | Narrative | Performed At | + + + | Patient Name: Matt Fagan Date of : 1990 | | | Date of Test: 09/09/2015 Place of | | | Service: IP Intra Op [id number] INTRAOPERATIVE NEURO | | | MONITORING History: [...] | | Department of Neurology Suggested CPT: 65284 - IOM Remote x 3 | | | hr(s) 46459 - Central Motor EP's Upper AND Lower [...] resectiontumor | | | | | | ([id number]). No high | | | | | [...] | | | | | | Block [id number]: | | | | | | Tumor cells | | | | | | Marker Result | | | | | | CommentGlial | | | | | | Fibrillary Acidic | | | | | | Protein | | | | | | PositiveVimentin | | | | | | UikxzyyjNI59 % | | | | | | [...] Epic: | | | | | | [id number] = spinal | | | | | [...] Bravo | | | | | | Kelsie | | | | | | thomas [...] OF | [address] | [place] [address] | | | PATHOLOGY | JEAN CAR[address]OS [...] fentaNYL citrate (PF) | New Bag | 03/04/20 | 50 mcg | | | | [...] 10:07 | | | | | dose, Tova 09/14/15 at 0930 | | AM PST [...] | | | | | modification) on 09/14/15 at | | | | | | [...] | | | | | NEEDED, Starting 09/10/15 at | | | | | | | 0213, Until 09/14/15 at 0911, | | | | | [...] | | | 09/10/15 at 0141, Until Sun09/10/15 | | AM PST | | [...] | | TIMES DAILY, First dose on Fri | | PM [...] | | | | | 1656, Until Sun09/15/15 at 1839, | | | [...] 3:48 | | | | | Starting 09/14/15 at 0915, | | PM PST | [...] | | DAILY (NITRO), First dose on Sun | | AM [...] | | | | | CONTINUOUS, Starting [facility] 09/09/15 | | AM PST | | | | | at 1830, Until 09/15/15 at | | | | | | [...] | | | | | modification) on Sun09/13/15 at | | | | | | [...] | | | | Miriam 09/09/15 at 2100, Until | | | [...]
--- OUTSIDE RECORDS SUMMARY | ~2019-11-28 | XMS | Encounter Summary ---
Demographics + + + | Address | [address] | | | [place] [address] | + + + | Home Phone [...] Team Providers + +------+ + | Care Private Watchman Name | Role | Phone | + [...] | | | | | | [address] [address] | | | | | | | [address] [place] | | | | | | | [place] | | | | | | | [address] | | | | | | | Phone: | | | | | | | [phone] | | | | | | | Fax: | | | | | | | [phone] | | +--------+--------+ + + + + + + | Scheduling Instructions | + + | [facility] Address: [address] [place] | | [address] | + + Reason for Visit AUTH/CERT [...] + + | 06/27/ | Hospital | [facility] [address] | April Beck MD | | | 2019 - | Encounter | [address] | [address] | | | | | [place], | [address] | | | 07/03/ | | [place] [address] | [place], [place] | | | 2019 | | [phone] | [address] | | | | | | [phone] | | | | | | | [...] MD PCP: No Pcp Per PATIENT Service: [facility] Neurosurgery Diagnoses Principal Final Diagnosis: Thoracic spinal [...] bladder. On 06/27/19 she is transferred to [facility] after presenting to [facility] on , 06/26, with acute-onset Left leg [...] She was accepted in transfer to the [facility] but her arrival was delayed until 06/27/19 due to bed availability. After many hours of observation and further workup at [facility], she was also diagnosed w ith a [...] on 07/03/2019, and the patient and/or family ia mbers agree with this course of action. [...] Summary Completed?: Yes. 07/03/2019 Discharging Provider: RAHEEM DOSS PA-C Date Completed: 07/03/2019 Time Completed: 2:05 PM Discharging Attending: April Beck MD [facility] [address] [place] [address] documented in this encounter Medications at Time [...] She is looking forward to transitioning to [facility]. Last Vitals: BP 111/70 (BP Location: Right [...] Lovenox. Dispo: Medically improved. Awaiting transfer to [facility] once accepted. Appreciate CM assistance . RAHEEM DOSS PA-C [facility] [address] [place] [address] Sudhir Reinoso MD - 07/02/2019 11:16 AM [...] shoulder shrug equal Motor: Delt Tri Bi Collections Assistant HF KF KE APF ADF EHL Left [...] to TRISTON Riojas MD Neurosurgery PGY1 Pager [phone] Timur, PHILIPPE Mullins - 07/01/2019 7:12 AM [...] O2 Delivery Device: None (room air) (07/01/19 7983) General: 28 y.o. female in NAD Neuro: Alert and oriented x 3, gaze conjugate, EOMI, face symmetric, facial sensation intac t, tongue midline, shoulder shrug equal Motor: Delt Tri Bi Collections Assistant HF KF KE APF ADF EHL Left [...] CM sent referral to TRISTON Mcclain PA-C [facility] [address] [place] [address] dams, Prosper Mena - 06/30/2019 10:49 AM [...] good candidate for IPR. RAHEEM DOSS PA-C [facility] [address] [place] [address] Valerie Beltran MD - 06/28/2019 7:39 PM [...] recommends IPR, appreciate CM assistance Please page [phone] with any questions or concerns. Valerie Sanon MD Neurosurgery PGY-1 Tatiana Meza RN - 06/28/2019 12:16 PM PSTActing as scribe for the UR Committee Physician named below. The primary medical team for this patient and the [facility] UR Committee have agreed after furth er study that an inpatient admission was not medically necessary. This hospital stay is con verted to an outpatient stay through use of Medicare Condition Code 44. The patient was not ified of this change in writing. The providers involved in this decision were: For patient s primary medical team: Samm Riojas MD. For [facility] UR Committee: Regla Rodriguez MD Samm Reinoso MD - 06/28/2019 8:20 AM PST NEUROSURGERY PROGRESS NOTE 06/28/2019 Hospital Day #: 1 Attending: April Beck MD Interval Events: - admitted to [facility] - continues to endorse stable LLE that [...] clinical course, PT recommends IPR Please page [phone] with any questions or concerns. Samm Riojas MD Neurosurgery PGY-1 Pager [phone] Associated attestation - Jere Story MD - 06/28/2019 5:45 PM PSTPT/OT, discharge ann telles May need IPR. Will need to re-establish care with [facility] neurosurgery. I have seen and examined the patient. I agree with the resident's documentation and have d ocumented any additions or exceptions. Jere Story MD Leather Belt Loop Cutter - Skull base and Cerebrovascular Neurosurgery Department of Neurological Waterproofing SupervisorLeather Belt Loop Cutter - Interventional Neuroradiology Kirt Duron Department of Interventional Radiology [facility] [place] documented in this encounter Plan of Treatment [...] | | 2019 | | | [place] [address] | | | | | | [place], [place] | | | | | | [address] | | | | | | [phone] | | | | | | | | +--------+ + + + + | 12/10/ | Office | Neurological Surgery | April Beck MD | | | 2019 | Visit | | [address] | | | | | | [address] | | | | | | [place], [place] | | | | | | [address] | | | | | | [phone] | | | | | | | [...]
--- OUTSIDE RECORDS SUMMARY | ~2019-11-28 | XMS | Encounter Summary ---
Demographics + + + | Address | [address] | | | [place] [address] | + + + | Home Phone [...] Team Providers + +------+ + | Care It Security Consulting Director Name | Role | Phone | + +------+ + | Tiff ChapinP | PCP | | + +------+ + Encounter Details +--------+ + + + + | Date | Type | Department | Care Team | Description | +--------+ + + + + | 07/13/ | Email Campaign Specialist | Neurosurgery at | Raegan Doss, | | | 2016 | | [facility] [address] | [facility] [address] | | | | | [place] Mailcode: CH[address] | Ave [place], [place] | | | | | [facility] | [address] | | | | | and [address] [place] [facility], | [phone] | | | | | [facility] | | | | | | Floor [facility] [place] | | | | | | [address] | | | | | | [phone] | | | +--------+ + + + [...] | | | | | | [place], [place] | | | | | | [address] | | | | | | [phone] | | | | | | | | +--------+ + + + + | 12/10/ | Office | Neurological Surgery | April Beck MD | | | 2019 | Visit | | [address] | | | | | | [address] | | | | | | [place] | | | | | | [address] | | | | | | [phone] | | | | | | | | +--------+ + + + + documented as of this encounter Visit Diagnoses Not on filedocumented in this encounter"
--- OUTSIDE RECORDS SUMMARY | ~2019-11-28 | XMS | Encounter Summary ---
Demographics + + + | Address | [address] | | | [place] [address] | + + + | Home Phone [...] Team Providers + +------+ + | Care Diet Counselor Name | Role | Phone | [...] | | | | | Procedures | [address] | [address] [place] | | | | | MRI SPINE | [place], [place] | Research | | | | | THORACIC [facility] | [address] | Center | | | | | CONTRAST | Phone: | [place], [place] | | | | | [place] MRI, | [phone] | [address] | | | | | DORSAL SPINE | Fax: | Phone: | | | | | COMBO | [phone] | [phone] | | | | | | | Fax: | | | | | | | [phone] | +--------+--------+ + + + + Reason [...] | Procedures | [address] | [address] [place] | | | | | MRI SPINE | [place], [place] | Research | | | | | THORACIC [facility] | [address] | Center | | | | | CONTRAST | Phone: | [place], [place] | | | | | [place] MRI, | [phone] | [address] | | | | | DORSAL SPINE | Fax: | Phone: | | | | | COMBO | [phone] | [phone] | | | | | | | Fax: | | | | | | | [phone] | +--------+--------+ + + + + Encounter [...] | | [address] [place] Mailcode: | [place], [place] | | | | | [facility] | [address] | | | | | [facility], | [phone] | | | | | [place] [address], [facility] | | | | | | Floor [place], [place] | | | | | | [address] | | | | | | [phone] | | | +--------+ + + + [...] | | | | | | [place], [place] | | | | | | [address] | | | | | | [phone] | | | | | | | | +--------+ + + + + | 12/10/ | Office | Neurological Surgery | April Beck MD | | | 2019 | Visit | | [address] | | | | | | [address] | | | | | | [place], [place] | | | | | | [address] | | | | | | [phone] | | | | | | | [...] the report as now presented. Final signature: oTny Lyman | | 11/26/2017 10:35 PM Preliminary: Shahab [...]
--- OUTSIDE RECORDS SUMMARY | ~2019-11-28 | XMS | Encounter Summary ---
Demographics + + + | Address | [address] | | | [place] [address] | + + + | Home Phone [...] Team Providers + +------+ + | Care Flow Machine Operator Name | Role | Phone [...] | on | AMBULATORY [address] | STATISTICIAN APPLIED [address] [facility] | | | | | [address] | [facility] | | | | | Mailcode: CH6A | [place], [place] | | | | | [place], [place] | [address] | | | | | [address] | [phone] | | | | | [phone] | | | +--------+ + + + [...] | | 2019 | | | [place] [address] | | | | | | [place] [facility] [place] | | | | | | [address] | | | | | | [phone] | | | | | | | | +--------+ + + + + | 12/10/ | Office | Neurological Surgery | April Beck MD | | 2019 | Visit | | [address] | | | | | | [address] | | | | | | [place] | | | | | | [address] | | | | | | [phone] | | | | | | | | +--------+ + + + + documented as of this encounter Visit Diagnoses Not on filedocumented in this encounter"
--- OUTSIDE RECORDS SUMMARY | ~2019-11-28 | XMS | Encounter Summary ---
Demographics + + + | Address | [address] | | | [place] [address] | + + + | Home Phone [...] Providers + +------+ + | Care Sap Solution Manager Consultant Name | Role | Phone | [...] | | | | | | Rd [facility] | | | | | | Hospital Admitting | | | | | | Desk Located on the | | | | | | 9th floor | | | | | | [place], [place] | | | | | | [address] | | | +--------+ + + + [...] | | 2019 | | | [place] [address] | | | | | | [place] | | | | | | [address] | | | | | | [phone] | | | | | | | | +--------+ + + + + | 12/10/ | Office | Neurological Surgery | April Beck MD | | | 2019 | Visit | | [address] | | | | | | [address] | | | | | | [place] | | | | | | [address] | | | | | | [phone] | | | | | | | | +--------+ + + + + documented as of this encounter Visit Diagnoses Not on filedocumented in this encounter"
--- OUTSIDE RECORDS SUMMARY | ~2019-11-28 | XMS | Encounter Summary ---
Demographics + + + | Address | [address] | | | [place] [address] | + + + | Home Phone [...] Team Providers + +------+ + | [employer] Team Member Name | Role | Phone | + [...] | | | spine tumor | [place] | | | | | | Procedures | [address] | | | | | | | [place], [place] | | | | | | OCCUPATIONAL | [address] | | | | | | THERAPY | Phone: | | | | | | REFERRAL | [phone] | | | | | | | Fax: | | | | | | | [phone] | | +--------+--------+ + + + + Physical Therapy (Routine) +--------+--------+ + + + + | Status | Reason | Specialty | Diagnoses / | Referred By | Referred To | | | | | Procedures | Contact | Contact | +--------+--------+ + + + + | Closed | | Physical | Diagnoses | Carl, | Rona Pt | | | | Therapy | Thoracic | Caleb Lang, | [facility] | | | | | spine tumor | [place] [address] | [address] | | | | | Procedures | [address] | Giuliana Chatman | | | | | PHYSICAL | [place], [place] | [address] | | | | | THERAPY | [address] | TonyDANIELA | | | | | REFERRAL | Phone: | [phone] | | | | | | [phone] | Phone: | | | | | | Fax: | [phone] | | | | | | [phone] | Fax: | | | | | | | [phone] | +--------+--------+ + + + + Reason [...] + + | 07/06/ | Hospital | [facility] [address] | April Beck MD | | | 2018 - | Encounter | [address] | [address] | | | | | [id number] [facility] | [facility] | | | 07/12/ | | HOSPITAL [place], | [place], [place] | | | 2019 | | [place] [address] | [address] | | | | | [phone] | [phone] | | | | | | | | | | | | Rajinder Luis MD | | | | | | [address] | | | | | | [place], [place] | | | | | | [address] | | | | | | [phone] | | | | | | | [...] Female who has been followed in the 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 The patient noted new onset of right lower extrem ity weakness on 07/06/2018 and then presented to the hospital for evaluation. Ms. Worrell was transferred to [facility] on 07/06/2018. A MRI showed [...] from the beginning. Dura was closed with Salix-Thaddeus, tacked up with 4-0 Nurol on sutures. The muscle closed in layers. Skin was closed with 2-0 interrupted vertical mat tress sutures. Post operatively, the patient was [facility] the [facility] care. The I npatient Pain service was consulted to assist with post operative pain management. The patie nt made appropriate gains toward activity and [...] patient was felt appropriate for discharge to [facility] (Inpatient Rehab) on 07/12/2018, and the patient and/or family members agree with this course of action. The janeth chang has a follow up appointment in the [facility] Neurosurgery Spine clinic on 07/31/2018. [...] Okay to discontinue at discr etion of anige GUERRA or when patient is ambulating > [...] on the 1 2th floor at the [facility] on the [facility] [place] located at [address] [place] [address]. Please call [phone] if you have any questions or concerns bef ore your appointment time. Code Status for Facility Status: Full Code Discharge Follow Up - Facility MD to follow Facility MD to follow patient. Future Appointments Provider Department Dept Phone Center 07/31/2018 1:00 PM Raheem D[facility] at [facility] [phone] SPC Contact information for after-discharge care [facility] [place] . Specialty: Inpatient Rehabilitation Facility Contact information [address] [place] [address] Warning Symptoms and Signs Please call the Neurosurgery clinic at [phone] with any questions Sunday to Sunday 8 A M - 4 PM. After hours, call [facility] at [phone] and ask to speak with the Neurosurgery resi dent air pollution specialist if you have any of the following: - Difficulty breathing or shortness of breath; - Excessive bleeding or drainage from incision sites; - Fevers, chills, sweats; - Persistent nausea or vomiting; - Change in mental status. [facility] Neurosurgery Service Pain Policy [facility] Neurosurgery Service Pain Policy: Our clinic can prescribe pain medication for up to 6 weeks post-op. All refills must be requested through a the [facility] Neurosurgery Clinic. Patients must give [...] plan with case management. CALEB HENRY PA-C [facility] [address] [address] [address] MEDICATIONS Current Facility-Administered Medications Medication acetaminophen (TYLENOL) [...] on ppx Lovenox. Dispo: Pending acceptance at [facility]. RAHEEM DOSS PA-C [facility] [address] [place] [address] [facility], PHLIIPPE Mena - 07/10/2018 8:17 AM PST Neurosurgery Progress Note Hospital Day:4 Author; RAHEEM DOSS PA-C Attending Physician: Rajinder Luis MD Interval Hx: -Patient reports improvement in pain control this AM, currently at a 11/15. She is happy wit h the changes the APS team made. -She would like to hold on removing her daniels catheter until she can get to [facility] ([facility]) as th ey manage neurogenic bladder and training well over there. She states she is aware of the ri sks of keeping it in [facility]. 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 RAHEEM DOSS PA-C [facility] [address] [place] [address] Mook Álvarez ra, MD - 07/09/2018 9:09 [...] WORRELL Routine Cultures PROCEDURE: Strep Screen Culture [[id number]: 11/05/2017 16:4 4 PDT P1] SOURCE: Throat STARTED: 11/05/2017 20:3 9 PDT FREE TEXT SOURCE: BODY SITE: FINAL REPORTS Final Report [] Verified Date/Time: 11/07/2017 11:07 PDT No beta Strep isolated. Order Comments O1: Strep Screen Culture (CULTURE THROAT STREP SCREEN - [facility] - Ordering-Phys: PRINCESS GRAVES) Location: [facility] Performing Locations P1: This test was performed at: [facility] Lab Lab Results Component Value [...] kg/(m^2) AAOx3 PERRL, EOMI, FS, TML RUE: 11/10 D/B/T/HG LUE: 11/10 D/B/T/HG RLE: 07/13 HF/KE 3/5 DF 4/5 EHL/PF LLE: 07/13 HF 2/5 KE 3/5 DF 5/5 EHL/PF [...] Please contact the Neurosurgery resident on-call pager [phone] with questions or concerns. Olinda Araya MD Resident Physician Department of Neurosurgery Lucinda Valencia PA-C - 07/09/2018 5:50 AM PSTFormatting of this note might be diffe rent from the original. . Neuroscience Intensive Care Unit Team Progress Note NSICU ASSIGNED #[id number] ICU Admission Reason Most Recent Value ICU [...] vasopressors -Continue Decadron: 3 day rapid taper -Bijla-op abx per Neurosurgery -HOB flat since surgery, [...] Provider Role Specialty Ipt Critical Care Nsicu #[id number] Treatment Team Ipt Neurosurgery #[id number] Treatment Team Neurological Surgery Patient Lines/Drains/Airways Status Active Lines, Drains and Airways Name: Placement date: Placement time: Site: Days: Peripheral IV Right Antecubital 20 g 07/06/18 Antecubital 3 Peripheral IV Right Dorsal Hand 16 g 07/08/18 0905 Hand less than 1 Incision Posterior spine- thoracic 01/13/17 1521 541 Incision Posterior spine- thoracic 12/31/18 1011 less than 1 Urethral Catheter Straight [...] Date of Service: 07/09/2018 LUCINDA CASTAÑEDA PA-C [facility] DEPARTMENT: [facility] ICU NEURO Place of Service:- Inpatient CSN: [id number] Suggested Modifier: None Suggested CPT: TO [employer] SALES REPRESENTATIVE Author:LUCINDA CASTAÑEDA PA-C [address] [id number] signed by Lucinda Castañeda PA-C at 07/09/2018 [...] 07/13 HF/KE 3/5 DF/EHL/PF LLE: 08/13 HF/KE 3/5 DF/EHL/PF Sensation grossly intact, able [...] Please contact the Neurosurgery resident on-call pager [phone] with questions or concerns. Kamaljit Rios M.D., M.P.H. R2 Resident Physician Neurological Surgery Pager: [phone] signed by Kamaljit Rios MD,MPH at 07/08/2018 [...] Imaging: MRI SPINE THORACIC WO CONTRAST Order: [id number] Performed: 07/07/2018 15:00 Status: Final result Visible [...] MG/ML) INT RAVENOUS SOLUTION 13 mL (accession [id number]), GADOTERATE MEGLUMINE 0.5 MMOL/ML (376.9 MG/ML) INTRAVENOUS SOLUTION 13 mL (accession [id number]) FINDINGS: Thoracic spine: There is abnormal T2 [...] 15:48 CT SPINE THORACIC WO CONTRAST Order: [id number] Performed: 07/07/2018 15:12 Status: Final result Visible [...] duloxetine, gabapentin, baclofen, trazodone RAHEEM DOSS PA-C [facility] [address] [place] [address] Dave Mcclain MD - 07/07/2018 12:34 PM [...] today Dave Ayala MD Neurosurgery, PGY-1 Pager [phone] Dave Mcclain MD - 07/07/2018 7:38 AM [...] pre-op today -npo at midnight Please page [phone] with any questions or concerns. Dave Ayala MD Neurosurgery, PGY-1 Pager [phone] documented in this encounter Plan of Treatment [...] [place] | | | | | | [address] | | | | | | [phone] | | | | | | | | +--------+ + + + + | 12/10/ | Office | Neurological Surgery | April Beck MD | | | 2019 | Visit | | [address] | | | | | | [address] | | | | | | [place], [place] | | | | | | [address] | | | | | | [phone] | | | | | | | [...] + | [facility] | [address] | [place] [address] | | | SERVICES, CORE | JEAN [...] [facility] | [address] | [place], [place] | | | ZELALEM HERRERA OF NURIA | [address] | [address] | | | TESTS | | | [...] INFIRMARY | [address] | [place] [address] | | | SERVICES, CORE | [address] | | | + + + + + MAGNESIUM, PLASMA (07/10/2018 6:01 AM PST) + +-------+ + + + | Component | Value | Ref Range | Performed | Pathologist | | | | | At | Signature | + +-------+ + + + | MAGNESIUM,P | 2.0 | 1.6 - 2.6 mg/dL | [facility] | | | [facility] | | | LABORATORY | | | [...] LABORATORY | [address] | [place] [address] | | | HORACIO, NINO | [address] [...] + | [facility] | [address] | [place] [address] | | | SERVICES, CORE | [address] | | | + + + + + CAPILLARY BLOOD GLUCOSE (NO CHG) POC (07/09/2018 10:42 PM PST) + +---------+ [...] [facility] | [address] | [place], [place] | | | JAVIER POINT OF CARE | [address] | [address] | | | TESTS | | | [...] + | [facility] | [address] | [place], [place] | | | JAVIER POINT OF CARE | [address] | [address] | | | TESTS | | | [...] [facility] | [address] | [place], [place] | | | ZELALEM HERRERA OF [facility] | [address] | [address] | | | TESTS | | | [...] CENTER LABORATORY | [address] | [place] [address] | | | SERVICES, CORE | P[address] [...] + | [facility] | [address] | [place] [address] | | | SERVICES, CORE | JEAN [...] INFIRMARY | [address] | [place] [address] | | | SERVICES, CORE | JEAN [...] Attending | | Surgeon: Rajinder Luis MD General Accounting Clerk(s): Yokasta Webb MD. | | Preoperative Diagnoses: [...] | | beginning. Dura was closed with Salix-Thaddeus, tacked up with 4-0 Nurolon sutures. The | | muscle closed in layers. Skin was closed with 2-0 interrupted vertical mattress | | sutures.Indications For Procedure: Please see [facility] for full details, but briefly, | | [...] the operating room | | on a hospital [place]. She was intubated without difficulty by the [...] then closed it with a running 6-0 Salix-Thaddeus suture. We tacked out the | | [...] | | the critical portions of the operation.PARAMJIT HenryG/MODLDD: 07/08/2018 | | 19:06:44DT: 07/08/2018 19:40:29Job #: [id number] | |Indication: Intraoperative evaluation of adequacy of bony exposure and intradural pathology prior to durotomy. | | | |Organs or structures were viewed: spinal cord and tumor | |Impression: Compressed spinal cord with pusitility | | | |Image was saved in the Chart under media tab. Personally viewed and interpreted in real ti me intraoperatively. | | | | | |I, Rajinder Luis MD was scrubbed and actively participated performing the critical portio ns of the operation. | | | | | |Rajinder Luis MD | |JLG/MODL | | | | | | /[id number] | + + PROCEDURE NOTE (07/08/2018 4:53 [...] LABORATORY | [address] | [place] [address] | | | SERVICES, CORE | [address] | | | + + + + + MAGNESIUM, PLASMA (07/08/2018 1:46 PM PST) + +-------+ + + + | Component | Value | Ref Range | Performed | Pathologist | | | | | At | Signature | + +-------+ + + + | MAGNESIUM,P | 1.8 | 1.6 - 2.6 mg/dL | [facility] | | | LASMA | | | [...] + | [facility] | [address] | [place] [address] | | | SERVICES, CORE | JEAN [...] LABORATORY | [address] | [place] [address] | | | SERVICES, CORE | JEAN [...] (H) | 60 - 99 mg/dL | [facility] - | | | GLUCOSE, [...] [facility] | [address] | [place], [place] | | | ZELALEM HERRERA OF NURIA | [address] | [address] | | | TESTS | | | [...] | | | Yokasta Webb PGY5 Pager [phone] YOKASTA WEBB MD | | + + [...] from | | | | | | [id number], | | | | | | [id number], | | | | | | [id number], and | | | | | | [id number]). According | | | | | | to [facility], molecular | | | | | | [...] | | | | | | , [facility] | | | | | | [facility] | | | | | [...] | | | | | | number [id number]. | | | | | | Other, [...] [facility] DEPARTMENT | [address] | [place] [address] | | | PATHOLOGY | [address] [...] INFIRMARY | [address] | [place] [address] | | | SERVICES, CORE | [address] [...] | [facility] | [address] | [place] [address] | | | SERVICES, CORE | [address] [...] the MDRD equation recommended by the | [facility] | | National Kidney Disease Education Program. [...] + | [facility] | [address] [facility] | [place] [address] | | | SERVICES, NINO | [address] | | | + + + + + INTRAOPERATIVE NEURO MONITORING (07/08/2018) + + + | Narrative | Performed At | + + + | Patient Name: Qiana Worrell Date of : 1990 | | | Date of Test: 07/08/2018 Place | | | of Service: IP Intra Op (30) [id number] INTRAOPERATIVE | | | NEURO MONITORING IOM: [...] min(s), with | | [place] [address] - Short Latency EP's Upper AND Lower extremities | | | 23054 - Central Motor EP's Upper AND Lower [...] SOLUTION 13 | | | mL (accession [id number]), GADOTERATE MEGLUMINE 0.5 MMOL/ML (376.9 | | | MG/ML) INTRAVENOUS SOLUTION 13 mL (accession [id number]) FINDINGS: | | | Thoracic spine: There [...] (376.9 MG/ML) INTRAVENOUS SOLUTION 13 mL (accession [id number]), | | GADOTERATE MEGLUMINE 0.5 MMOL/ML (376.9 MG/ML) INTRAVENOUS SOLUTION 13 mL (accession | | [id number]) FINDINGS:Thoracic spine: There is abnormal T2 hyperintensity [...] SOLUTION 13 | | | mL (accession [id number]), GADOTERATE MEGLUMINE 0.5 MMOL/ML (376.9 | | | MG/ML) INTRAVENOUS SOLUTION 13 mL (accession [id number]) FINDINGS: | | | Thoracic spine: There [...] (376.9 MG/ML) INTRAVENOUS SOLUTION 13 mL (accession [id number]), | | GADOTERATE MEGLUMINE 0.5 MMOL/ML (376.9 MG/ML) INTRAVENOUS SOLUTION 13 mL (accession | | [id number]) FINDINGS:Thoracic spine: There is abnormal T2 hyperintensity [...] | + + + + + | [facility] [employer] [facility] | [address] | [place] [address] | | | SERVICES, | [address] [...] LABORATORY | [address] | [place] [address] | | | SERVICES, | [address] [...] CENTER LABORATORY | [address] | [place] [address] | | | SERVICES, CORE | P[address] [...] + | [facility] | [address] | [place] [address] | | | SERVICES, CORE | [address] [...] the MDRD equation recommended by the | [facility] | | National Kidney Disease [...] + + + + + | [facility] | [address] | [place] [address] | | | SERVICES, CORE | [address] [...] | | | | First dose on Sun07/06/18 at | | PM PST | | [...] | | | | | dose on Sun07/08/18 at 1745, | | | | | [...] 2 mg, oral, EVERY 12 | | 18 8:21 | | | [...] | 07/10/18 at 1500, Last dose on Miriam | | | [...] | | | EVENING, First dose on Wed | | PM PST | | [...] | | | | | 1413, Until Tu07/09/18 at 1130, | | | | | [...] | | | | ONCE, 1 dose, 07/07/18 at | | PM PST | [...] | | | | at 1345, Until 07/09/18 at | | | | [...] | | | | | NEEDED, Starting e 07/09/18 at | | | | | | | 0203, Until e 07/09/18 at 1130, | | | | [...]
--- OUTSIDE RECORDS SUMMARY | ~2019-11-28 | XMS | Encounter Summary ---
Demographics + + + | Address | [address] | | | [place] [address] | + + + | Home Phone [...] Team Providers + +------+ + | Care Button Spindler Name | Role | Phone | + [...] | | | | | OCCUPATIONAL | [facility] [place] | | | | | | THERAPY | [address] | | | | | | REFERRAL | Phone: | | | | | | | [phone] | | | | | | | Fax: | | | | | | | [phone] | | +--------+--------+ + + + + [...] | | | | | PHYSICAL | [facility] [place] | | | | | | THERAPY | [address] | | | | | | REFERRAL | Phone: | | | | | | | [phone] | | | | | | | Fax: | | | | | | | [phone] | | +--------+--------+ + + + + [...] + + | 01/11/ | Hospital | [facility] [address] | Miguel Powell, | | | 2017 - | Encounter | [address] | [address] [facility] | | | | | [id number] | [facility] | | | 01/18/ | | HOSPITAL [place], | [place], [place] | | | 2017 | | [place] [address] | [address] | | | | | [phone] | [phone] | | | | | | | | | | | | Bin Li MD | | | | | | Sascha Monk, | | | | | | [address] | | | | | | [place], [place] | | | | | | [address] | | | | | | [phone] | | | | | | | | | | | | Rajinder Luis MD | | | | | | [address] | | | | | | [place], [place] | | | | | | [address] | | | | | | [phone] | | | | | | | [...] Luis MD PCP: Clare Chowdary MD Service: 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 Post operatively, the patient [...] rehabilitation team and was seen by a Commercial Lawn Specialist with recommendation for IPR ([facility]IST[facility]) upon discharge. [...] at her post-op clinic visit or at [facility] by a provider and then cancel the [...] be on the 12th floor at the [facility] on the [facility] located at [address], [place] [address]. Please call [phone] if you have any questions or concerns before your appointment time. If you are still admitted to [facility] at the time of this appointment, the providers at [facility] can remove your slim. Please then make a 6 week post-op visit to see Raegan Doss PA-C in [facility] rosurgery clinic for routine follow up. You can call [phone] to make this appointment. PCP:Clare Chowdary MD [...] 01/28/17. If you are still admitted to [facility] when your slim need to come out, the providers at [facility] c an remove your slim. Please then make a 6 week post-op visit to see Raegan Doss PA-C in Neurosurgery clinic for routine follow up. You can call [phone] to make this appointmen t. Special Instructions/Tests: N/A Condition On Discharge: Good Vital Signs at discharge as appropriate: BP: 109/55 (01/18/17 045) Pulse: 64 (01/18/17 045) Resp: 14 (450) Weight: 78 kg (171 lb 15.3 oz) (01/15/17 0000) Discharge Patient To: Interhospital Transfer - [facility] Does patient have a planned readmission: No Discharge Summary Completed?: Yes. 01/18/2017 Discharging Provider: Raegan Doss PA-C Date Completed: 01/18/2017 Time Completed: 10:56 AM Discharging Attending: Rajinder Luis MD [address] [place] [address] documented in this encounter Progress Notes Raegan [...] patient and recommended a short stay at [facility] -Patient has required several straight caths overnight [...] Intake/Output Summary (Last 24 hours) at 01/18/17 0988 Last data filed at 01/18/17 0520 Gross per 24 hour Intake 1420 ml Output 1775 ml Net -355 ml Exam: Alert, oriented x3. Speech clear, fluent. Gaze conjugate. Face symmetric. Thoracic incision: flat, dry, no erythema, intact. Linton present. Sensation: LT sensation is patchy in [...] on 01/10 and 1 episode of blad valreie incontinence. Total spine MRI on 01/11 showed [...] prevention, appreciate PT/OT involvement with recs for [facility]. ID/Heme: Afebrile since admission on 01/11. DVT ppx: SCDs while in bed, ppx lovenox 40mg inj. qHS. Dispo: Patient is medically stable for discharge. CM working on placement at [facility] for discharge today. Raegan Doss PA-C [facility] [address] [address] [address] dams, PHILIPPE Mena - 01/17/2017 10:28 AM [...] Thoracic incision: flat, dry, intact. No erythema. Linton present. Sensation: Patchy numbness in BLE. Decreased [...] siatry consult placed for possible admission to [facility]. ID/Heme: Afebrile since admission on 01/11. DVT ppx: SCDs while in bed, ppx lovenox 40mg inj. qHS. Dispo: Pending physiatry consult. Appreciate CM involvement. Raegan Doss PA-C [facility] [address] [address] [place] [address] dams, PHILIPPE Mena - 01/16/2017 8:38 AM [...] Will discuss with CM. Raegan Doss PA-C [facility] [address] [address]/[facility] [place] [address] dams, PHILIPPE Mena - 01/15/2017 9:02 AM [...] catheter in until able to ambulate to [facility]. She also r equests going up on [...] and possible rehab needs. Raegan Doss PA-C [facility] [address] [address] [address] Kaci Adorno M D - 01/14/2017 9:42 AM PDT . Neuroscience Intensive Care Unit Attending Progress Note Attending Pager #[phone] Documentation Date 01/13/17 1450 Day of Procedure [...] team members Provider Role Specialty Ipt Neurosurgery #[id number] Treatment Team Neurological Surgery Ipt Critical Care Nsicu #[id number] Treatment Team -- Code Status Code Status [...] on counseling and coordination of care.Seen with PA/SHOP STEWARD Ryan. Please see their note for details. I reviewed the documented findings, all data and the recent imaging available. Date of Service: 01/14/2017 Kaci Mon MD Author:Kaci Mon MD [address] [id number] signed by Kaci Mon MD at 01/14/2017 [...] Aaron MD Neurosurgery, PGY-2 On-call resident pager [phone] 9:03 AM 01/14/2017 ogbrian, Nay Alvarenga [facility] - 01/14/2017 7:30 AM PDT . Neuroscience Intensive Care Unit Team Progress Note NSICU ASSIGNED #[id number] Documentation Date 01/13/17 1450 Day of Procedure 01/13/17 Spinal Procedures Spinal Procedures Spinal Procedures Posterior Instrumental Fusion Posterior Instrumental Fusion Lumbar Admission dx: INTRINSIC SPINAL CORD TUMOR 1 Days in ICU 3 Days in Hospital 24 hour events S/p T8 and T9 laminectomy for 4th resection of intramedullary tumor HOB flat until [address] [place] dc'd Keep daniels until mobilizing Resumed home [...] team members Provider Role Specialty Ipt Neurosurgery #[id number] Treatment Team Neurological Surgery Ipt Critical Care Nsicu #87057 Treatment Team -- Patient Lines/Drains/Airways Status Active [...] ICU NEURO Place of Service:- Inpatient CSN: [id number] Suggested Modifier: None Suggested CPT: TO PULMONARY FUNCTION TECHNOLOGIST AIXA Orozco Author:AIXA Sanders [address] [id number] signed by AIXA Orozco at 01/14/2017 11:26 AM Stephie Rodríguez MD - 01/13/2017 9:35 PM PDTFormatting of this note might be differen t from the original. . Neuroscience Intensive Care Unit Attending Progress Note Attending Pager #[phone] Documentation Date 01/13/17 1450 Day of Procedure [...] team members Provider Role Specialty Ipt Neurosurgery #[id number] Treatment Team Neurological Surgery Ipt Critical Care Nsicu #01921 Treatment Team -- Code Status Code Status [...] on counseling and coordination of care.Seen with PA/SHOP STEWARD Yaz Eztonya. Please see their note for details. I reviewed the documented findings, all data and the recent shmuel ging available. Date of Service: 01/13/2017 [facility] DEPARTMENT: ANE ICU NEURO Place of Service:- Inpatient CSN: [id number] Suggested Modifier: GC - Resident Involved Suggested CPT: TO PULMONARY FUNCTION TECHNOLOGIST Author:Stephie Anders MD [place] [place] [id number] signed by Stephie Anders MD at 01/13/2017 [...] Aaron MD Neurosurgery, PGY-2 On-call resident pager [phone] 8:22 PM 01/13/2017 Cesar Najera MD - [...] MD Neurosurgery Resident 11:07 PM, 01/12/2017 Pager #[phone] Kacey Elizabeth P A-C - 01/12/2017 8:42 [...] of fever to 103. [facility]. Concern for [...] 01/14 for tumor resection. Kacey Pimentel PA-C [facility] [address] [place] [address] Chavo Robert MD - 01/11/2017 9:27 PM [...] midline No pronator drift Delt Bi Tri Outside Laborer HF KE KF DF PF Left 5 [...] now Chavo Penn MD Neurosurgery Resident Pager #[phone] signed by Chavo Penn MD at 01/11/2017 [...] | | | | | | [place], [place] | | | | | | [address] | | | | | | [phone] | | | | | | | | +--------+ + + + + | 12/10/ | Office | Neurological Surgery | April Beck MD | | | 2019 | Visit | | [address] | | | | | | [address] | | | | | | [place], [place] | | | | | | [address] | | | | | | [phone] | | | | | | | [...] | + + + + + | [facility] | [address] | [place] [address] | | | SERVICES, CORE | MARLA [...] | | | LABORATORY | | | JORDANIAN | | | SERVICES, | | | [...] LABORATORY | [address] | [place] [address] | | | SERVICES, CORE | PARK [...] LABORATORY | [address] | [place] [address] | | | SERVICES, CORE | PARK [...] | | | LABORATORY | | | JORDANIAN | | | SERVICES, | | | [...] | + + + + + | [facility] | [address] | [place] [address] | | | SERVICES, CORE | MARLA [...] + | [place] LABORATORY | [address] | [place] [address] | | | SERVICES, CORE | PARK [...] | | | LABORATORY | | | JORDANIAN | | | SERVICES, | | | [...] the MDRD equation recommended by the | [facility] | | National Kidney Disease Education [...] | + + + + + | [facility] LABORATORY | [address] | [place] [address] | | | [place] | [address] | | | + + + + + PROCEDURE NOTE (01/15/2017 7:18 PM PDT)OPERATION RECORD (01/15/2017 8:11 AM PDT) + + | Procedure Note | + + | Rajinder Luis MD - 01/13/2017 8:53 PM PDT Date of Service: 01/13/2017 Attending | | Surgeon: Rajinder Luis MD Magazine Worker(s): Joby Thibodeaux | | . Preoperative Diagnosis: [...] the | | operating room on a [facility]. General endotracheal anesthesia was induced [...] dura was reapproximated and closed using 5-0 Paicines-Thaddeus suture | | in a running fashion. [...] to a supine position on | | [facility]. She was then extubated by [...] 01/13/2017 19:31:27DT: | | 01/13/2017 20:53:09Job #: [id number] | + + CBC (HEMOGRAM) ONLY (01/15/2017 [...] | + + + + + | [facility] | [address] | [place] [address] | | | SERVICES, CORE | PARK [...] | | | LABORATORY | | | JORDANIAN | | | SERVICES, | | | [...] the MDRD equation recommended by the | [facility] | | National Kidney Disease Education [...] | + + + + + | [facility] LABORATORY | [address] | [place] [address] | | | SERVICES, CORE | [address] | | | + + + + + MAGNESIUM, PLASMA (01/15/2017 12:30 AM PDT) + +-------+ + + + | Component | Value | Ref Range | Performed | Pathologist | | | | | At | Signature | + +-------+ + + + | MAGNESIUM,P | 2.3 | 1.8 - 2.5 mg/dL | [facility]NA | | | LASMA | | | [...] | + + + + + | [facility] | [address] | [place] [address] | | | SERVICES, CORE | MARLA [...] BRAMBILA | [address] | [place], [place] | | | ZELALEM HERRERA OF NURIA | [address] | [address] | | | TESTS | | | [...] MARCEAM | [address] | [place], [place] | | | ZELALEM HERRERA OF CARE | [facility] | [address] | | | TESTS | | | [...] | + + + + + | [facility] LABORATORY | [address] | [place] [address] | | | SERVICES, CORE | MARLA [...] LABORATORY | [address] | [place] [address] | | | SERVICES, CORE | MARLA [...] | | | LABORATORY | | | JORDANIAN | | | SERVICES, | | | [...] | + + + + + | [facility] LABORATORY | [address] | [place] [address] | | | [place] | MARLA [...] + | MOISE Morales HARRYYOLANDA | [address] | [place], [place] | | | [facility] | [address] | [address] | | | TESTS | | | [...] MARQUAM | [address] | [place], [place] | | | ZELALEM HERRERA OF CARE | [address] | [address] | | | TESTS | | | [...] BRAMBILA | [address] | [place], [place] | | | ZELALEM HERRERA OF NURIA | [address] | [address] | | | TESTS | | | [...] + + + + | PRODUCT | [id number] | | [facility] | | | UNIT [...] + + + + | EXPIRATION | [id number] | | [facility] | | | DATE [...] + + + + | BLOOD | [id number] | | [facility] | | | PRODUCT [...] LABORATORY | [address] | [place] [address] | | | SERVICES, | [address] [...] + + + + | PRODUCT | [id number] | | [facility] | | | UNIT [...] + + + + | EXPIRATION | [id number] | | [facility] | | | DATE [...] + + + + | BLOOD | [id number] | | [facility] | | | PRODUCT [...] LABORATORY | [address] | [place] [address] | | | SERVICES, | [address] [...] BRAMBILA | [address] | [place], [place] | | | JAVIER POINT OF CARE | [address] | [address] | | | TESTS | | | [...] LABORATORY | [address] | [place] [address] | | | SERVICES, SPECIAL | PARK [...] | + + + + + | [facility] | [address] | [place] [address] | | | SERVICES, CORE | MARLA [...] | | Service: IP Intra Op [phone] [id number] INTRAOPERATIVE NEURO | | | MONITORING IOM: [...] | | Clinical Neurophysiology Department Suggested CPT: 10054 - IOM | | | Remote x 3 hr(s) 39701 - Short Latency EP's Upper AND Lower | | | extremities 75556 - Central Motor EP's Upper AND Lower extremities | | | 27117 - Neuromuscular Junction Test Suggested Diagnosis: D43.4 [...] original | | | | | | [id number]) with cells | | | | | [...] medical | | | | | | record#[id number]. | | | | | | A: [...] | [facility] | [address] | [place] [address] | | | PATHOLOGY | [address] [...] | + + + + + | [facility] | [address] | [place] [address] | | | SERVICES, SPECIAL | MARLA [...] | + + + + + | [facility] | [address] | [place] [address] | | | SERVICES, [facility] | [address] | | | + [...] | | + +---------+ + + | [facility] RADIOLOGY | | | | | [...] LABORATORY | [address] | [place] [address] | | | SERVICES, | [address] [...] | + + + + + | [facility] | [address] | [place] [address] | | | SERVICES, | [address] [...] | + + + + + | [facility] | [address] | [place] [address] | | | SERVICES, CORE | MARLA [...] | + + + + + | [facility] LABORATORY | [address] | [place] [address] | | | SERVICES, CORE | PARK [...] | + + + + + | [facility] | [address] | [place] [address] | | | SERVICES, CORE | MARLA [...] | | | LABORATORY | | | JORDANIAN | | | SERVICES, | | | [...] | + + + + + | [facility] | [address] | [place] [address] | | | SERVICES, CORE | MARLA [...] | + + + + + | [facility] | [address] | [place] [address] | | | SERVICES, CORE | PARK [...] | + + + + + | [facility] | [address] | [place] [address] | | | SERVICES, CORE | PARK [...] + | [facility] - | [address] | [place] [address] | | | [place] | | | [...] | + + + + + | [facility] | [address] | [place] [address] | | | SERVICES, CORE | MARLA [...] | [facility] | | | GRAVITY | [place] performed by | | LABORATORY | | [...] | + + + + + | [facility] | [address] | [place] [address] | | | SERVICES, CORE | MARLA [...] | + + + + + | [facility] LABORATORY | [address] | [place] [address] | | | SERVICES, CORE | PARK [...] LABORATORY | [address] | [place] [address] | | | [place]ARD | MARLA [...] At | + + + | [id number] This patient has registered at the | [facility] | | [facility] Emergency Department For more | MEDICAL | | information visit: | TECH[employer]OLOGIES | | [email or web address] | | | [email or web address] ED Care Guidelines There are currently no ED Care Guidelines | | | in LYNN for this patient. Please check your facility's medical | | | records system. Recent Emergency Department Visit Summary Admit | | | Date Facility City State Type Major Type Diagnoses or Chief Complaint | | | Jan 11, 2017 [facility] [place] Emergency | | | Emergency 10,800. transfer Jan 11, 2017 [facility] | | | [facility]. [place] Emergency Emergency Recent | | | Inpatient Visit Summary No recorded inpatient visits. E.D. Visit | | | Count (12 mo.) Facility Visits [facility] | | | [place] [facility] 1 [place] [address] | | | [facility] 1 Total 6 Note: Visits indicate total | | | known visits. Care Providers Provider PRC Type Phone Fax | | | Service Dates [facility] Primary Care | | | Current CLARE [...] for | | | additional information. 2017 [employer] - | | | [place], [place] - [email or web address] | | + + + + + | Procedure Note | + + | Service Account, Rtf Results Inbound - 01/11/2017 8:40 AM PDT Formatting of this | | note might be different from the original.LYNN?NOTIFICATION?01/11/2017 08:38?ANAID | | PRAKASH Parsons? patient has registered at the [facility] | | [place] Emergency Department For more information visit: | | [email or web address] ED Care | | GuidelinesThere are currently no ED Care Guidelines in LYNN for this patient. Please | | check your facility's medical records system.Recent Emergency Department Visit | | SummaryAdmit Date Facility [facility] Type Major Type Diagnoses or Chief Complaint Jan | | 2016 [facility] [place] Emergency Emergency 10,800. | | transfer Jan 11, 2017 [facility] [place] Emergency Emergency Recent | | Inpatient Visit SummaryNo recorded inpatient visits. E.D. Visit Count (12 mo.)Facility | | Visits [facility] 2 [facility] 1 [facility] | | [place] 2 [facility] 1 Total 6 Note: Visits indicate total known | | visits. Care ProvidersProvider PRC Type Phone Fax Service Dates DEVON VEGA | | [facility] Primary Care Current CLARE CAN [...] additional information. ? 2017 [employer] | | [employer] - [place], [place] - [email or web address] | |[facility] [place] 2 | |[facility] 1 | |[facility] 2 | |[facility] 1 | |Total 6 | |Note: Visits indicate total known visits. | | | |Care Providers | |Provider PRC Type Phone Fax Service Dates | |[facility] Primary Care Current | |CLARE CAN Primary [...] facilities for additional information. | |? 2017 [employer] - [place], [place] - [email or web address] | + + + + + + + | Performing | Address | City/State/Zipcode | Phone Number | | Organization | | | | + + + + + | [facility] | [address] | [place], [place] | [phone] | | TECH[employer]OLOGIES | [address] | [address] | | + + + + + [...] | HOURS, First dose on [facility] 01/11/17 | | PM PDT | [...] | | | dose on [facility] 01/11/17 at 1830, Until | | [...] | | | | dose, [facility] 01/11/17 at 1330 | | | | | | + +---------+ +-------+---+---+ + +---+ | | | + +---+ | glycopyrrolate (ROBINUL) | | | injection 0.2 mg 0.2 mg, | | | intravenous, EVERY 2 HOURS | | | NEEDED, 3 doses, Starting Sun | | | 01/14/17 at 0220, Until [facility] 01/18/17 | | | at 2056, [...] | | First dose on [facility] 01/11/17 at 1800, | | AM [...] | | | NEEDED, Starting [facility] 01/11/17 at | | | | [...]
--- OUTSIDE RECORDS SUMMARY | ~2019-11-28 | XMS | Encounter Summary ---
Demographics + + + | Address | [address] | | | [place] [address] | + + + | Home Phone [...] Team Providers + +------+ + | Care Implement Mechanic Name | Role | Phone | [...] | spinal cord | [place], [place] | [place], [place] | | | | | Procedures | [address] | [address] | | | | | REQUEST TO | Phone: | Phone: | | | | | SURGERY | [phone] | [phone] | | | | | MANAGER CLINICAL RESEARCH | Fax: | Fax: | | | | | [place] BX/[facility] | [phone] | [phone] | | | | | SPIN | | | | | | | MARCELINO,INDUR,IN | | | | | | | MED,[place] | | | | | | | [...] + + + + | 05/10/ | Appraisal Coordinator | Neurosurgery at | Raegan Doss, | Weakness of right | | 2015 | | [facility] | PA-C [address] | lower extremity | | | | and Healing [address] [place], [place] | (Primary Dx) | | | | [address] [place] Mailcode: | [address] | | | | | [facility] | [phone] | | | | | Health and Healing, | | | | | | Building | | | | | | Floor [facility] [place] | | | | | | [address] | | | | | | [phone] | | | +--------+ + + + [...] | | | | | | [place], [place] | | | | | | [address] | | | | | | [phone] | | | | | | | | +--------+ + + + + | 12/10/ | Office | Neurological Surgery | April Beck MD | | | 2020 | Visit | | [address] | | | | | | [address] | | | | | | [place], [place] | | | | | | [address] | | | | | | [phone] | | | | | | | | +--------+ + + + + documented as of this encounter Visit Diagnoses + + | Diagnosis | + + | Weakness of right lower extremity - Primary | + + documented in this encounter"
--- OUTSIDE RECORDS SUMMARY | ~2019-11-28 | XMS | Encounter Summary ---
Demographics + + + | Address | [address] | | | [place] [address] | + + + | Home Phone [...] Team Providers + +------+ + | Care Tree Expert Name | Role | Phone | + [...] [address] | | | | | [facility] | [address] [place], | | | | | Hospital Admitting | [place] [address] | | | | | Desk Located on the | [phone] | | | | | 9th floor | | | | | | [place], [place] | Rosemary Quesada MD | | | | | [address] | [address] | | | | | | [address] | | | | | | [place], [place] | | | | | | [address] | | | | | | [phone] | | | | | | | [...] | | | | | | [place], [place] | | | | | | [address] | | | | | | [phone] | | | | | | | | +--------+ + + + + | 12/10/ | Office | Neurological Surgery | April Beck MD | | | 2019 | Visit | | [address] | | | | | | [address] | | | | | | [place], [place] | | | | | | [address] | | | | | | [phone] | | | | | | | [...] | | | Performed by Resident Name: VINYN GILBERT 2 attempts on | | | [...]
--- OUTSIDE RECORDS SUMMARY | ~2019-11-28 | XMS | Encounter Summary ---
Demographics + + + | Address | [address] | | | [place] [address] | + + + | Home Phone [...] Team Providers + +------+ + | Care Hopper Feeder Name | Role | Phone | + +------+ + | Tiff Chapin | PCP | | + +------+ + Encounter Details +--------+------+ + + + | Date | Type | Department | Care Team | Description | +--------+------+ + + + | 07/12/ | Lab | Laboratory at [facility] | | Dysuria | | 2015 | | [address] | | | | | | [place], [place] | | | | | | [address] | | | | | | [phone] | | | +--------+------+ + + + [...] | | | | | | [place], [place] | | | | | | [address] | | | | | | [phone] | | | | | | | | +--------+ + + + + | 12/10/ | Office | Neurological Surgery | April Beck MD | | | 2019 | Visit | | [address] | | | | | | [address] | | | | | | [place], [place] | | | | | | [address] | | | | | | [phone] | | | | | | | [...] + + documented in this encounter Results UA, DIPSTICK ONLY (07/12/2015 2:45 PM PST) + + [...] LABORATORY | [address] | [place] [address] | | | SERVICES, CORE | PARK [...] | + + + + + | [facility] | [address] | [place] [address] | | | HORACIO, NINO | PARK [...] Culture Screen Negative. Culture not indicated. | [facility] | | | LABORATORY | | | NINO LEONARD | + + + + + + + + | Performing | Address | City/State/Zipcode | Phone Number | | Organization | | | | + + + + + | [facility] | [address] | [place] [address] | | | HORACIO, NINO | [address] | | | + + + + + documented in this encounter Visit Diagnoses + + | Diagnosis | + + | Dysuria | + + documented in this encounter"
--- OUTSIDE RECORDS SUMMARY | ~2019-11-28 | XMS | Encounter Summary ---
Demographics + + + | Address | [address] | | | [place] [address] | + + + | Home Phone [...] Team Providers + +------+ + | Care Head Strength And Conditioning Coach Name | Role | Phone | + [...] | | | | Mailcode: CH6A | [facility] [address] | | | | | [place], [place] | [place], [place] | | | | | [address] | [address] | | | | | [phone] | | | +--------+ + + + [...] | | 2019 | | | [address] [address] | | | | | | [place], [place] | | | | | | [address] | | | | | | [phone] | | | | | | | | +--------+ + + + + | 12/10/ | Office | Neurological Surgery | April Beck MD | | | 2020 | Visit | | [address] | | | | | | [address] | | | | | | [place] | | | | | | [address] | | | | | | [phone] | | | | | | | | +--------+ + + + + documented as of this encounter Visit Diagnoses Not on filedocumented in this encounter"
--- OUTSIDE RECORDS SUMMARY | ~2019-11-28 | XMS | Encounter Summary ---
Demographics + + + | Address | [address] | | | [place] [address] | + + + | Home Phone [...] Team Providers + +------+ + | Care Perishable Fruit Inspector Name | Role | Phone | [...] | | | | | [place], | | | | | | [place] [address] | | | +--------+--------+ + + + [...] | | | | | | [place], [place] | | | | | | [address] | | | | | | [phone] | | | | | | | | +--------+ + + + + | 12/10/ | Office | Neurological Surgery | April Beck MD | | | 2020 | Visit | | [address] | | | | | | [address] | | | | | | [place], [place] | | | | | | [address] | | | | | | [phone] | | | | | | | | +--------+ + + + + documented as of this encounter Visit Diagnoses Not on filedocumented in this encounter"
--- OUTSIDE RECORDS SUMMARY | ~2019-11-28 | XMS | Encounter Summary ---
Demographics + + + | Address | [address] | | | [place] [address] | + + + | Home Phone [...] Author + + + | Author | [facility] | + + + | Organization | [facility] | + + + | [...] Team Providers + +------+ + | Care Plane Captain Name | Role | Phone | + +------+ + | Clare Franks MD | PCP | | + +------+ + Encounter Details +--------+ + + + + | Date | Type | Department | Care Team | Description | +--------+ + + + + | 01/28/ | Document-Sc | Health Information | Unknown . | | | 2017 | anned | Services [address] | | | | | | [address] | | | | | | Mailcode: OP17A | | | | | | [facility] | | | | | | [place], [place] | | | | | | [address] | | | | | | [phone] | | | +--------+ + + + [...] | | | | | | [place], [place] | | | | | | [address] | | | | | | [phone] | | | | | | | | +--------+ + + + + | 12/10/ | Office | Neurological Surgery | April Beck MD | | | 2020 | Visit | | [address] | | | | | | [address] | | | | | | [place], [place] | | | | | | [address] | | | | | | [phone] | | | | | | | | +--------+ + + + + documented as of this encounter Visit Diagnoses Not on filedocumented in this encounter"
--- OUTSIDE RECORDS SUMMARY | ~2019-11-28 | XMS | Encounter Summary ---
Demographics + + + | Address | [address] | | | [place] [address] | + + + | Home Phone [...] Team Providers + +------+ + | Care Contact Lens Cutter Name | Role | Phone | + +------+ + | Damir Sy MD | PCP | | + +------+ + Encounter Details +--------+ + + + + | Date | Type | Department | Care Team | Description | +--------+ + + + + | 01/11/ | Procedure | Diagnostic Imaging | | | | 2016 | Pass | Services at [facility] | | | | | | [address] | | | | | | [place] | | | | | | [facility] | | | | | | [place], [place] | | | | | | [address] | | | | | | [phone] | | | +--------+ + + + [...] | | | | | | [place], [place] | | | | | | [address] | | | | | | [phone] | | | | | | | | +--------+ + + + + | 12/10/ | Office | Neurological Surgery | April Beck MD | | | 2019 | Visit | | [address] | | | | | | [address] | | | | | | [place], [place] | | | | | | [address] | | | | | | [phone] | | | | | | | | +--------+ + + + + documented as of this encounter Visit Diagnoses Not on filedocumented in this encounter"
--- OUTSIDE RECORDS SUMMARY | ~2019-11-28 | XMS | Encounter Summary ---
Demographics + + + | Address | [address] | | | [place] [address] | + + + | Home Phone [...] Team Providers + +------+ + | Care Enterprise Infrastructure Architect Name | Role | Phone [...] [place] | | | | Note-Transc | [place], [place] | [facility] | | | | ribed | [address] | ER Med [address] | | | | | | [place], [place] | | | | | | [address] | | | | | | | [...] | | | | | | [place], [place] | | | | | | [address] | | | | | | [phone] | | | | | | | | +--------+ + + + + | 12/10/ | Office | Neurological Surgery | April Beck MD | | | 2019 | Visit | | [address] | | | | | | [address] | | | | | | [facility] [place] | | | | | | [address] | | | | | | [phone] | | | | | | | | +--------+ + + + + documented as of this encounter Visit Diagnoses Not on filedocumented in this encounter"
--- OUTSIDE RECORDS SUMMARY | ~2019-11-28 | XMS | Encounter Summary ---
Demographics + + + | Address | [address] | | | [place] [address] | + + + | Home Phone [...] Team Providers + +------+ + | Care Sports Nutritionist Name | Role | Phone | + +------+ + | No Pcp Per Patient | PCP | Unavailable | + +------+ + Encounter Details +--------+ + + + + | Date | Type | Department | Care Team | Description | +--------+ + + + + | 06/03/ | Telephone | Neurosurgery at | Raegan Doss, | | | 2019 | | [facility] | PA-C [address] | | | | | and Healing [address] | [place], [place] | | | | | [address] Mailcode: | [address] | | | | | [address] [facility] | [phone] | | | | | Health and Healing, | | | | | | [facility] | | | | | | [place], [place] | | | | | | [address] | | | | | | [phone] | | | +--------+ + + + [...] | | | | | | [place], [place] | | | | | | [address] | | | | | | [phone] | | | | | | | | +--------+ + + + + | 12/10/ | Office | Neurological Surgery | April Beck MD | | 2019 | Visit | | [address] | | | | | | [address] | | | | | | [place], [place] | | | | | | [address] | | | | | | [phone] | | | | | | | | +--------+ + + + + documented as of this encounter Visit Diagnoses Not on filedocumented in this encounter"
--- OUTSIDE RECORDS SUMMARY | ~2019-11-28 | XMS | Encounter Summary ---
Demographics + + + | Address | [address] | | | [place] [address] | + + + | Home Phone [...] Team Providers + +------+ + | Care Computer Repair Engineer Name | Role | Phone | [...] | | | | Rd [facility] | [place], [place] | | | | | | [facility] | [address] | | | | | | [place], [place] | Phone: | | | | | | [address] | [phone] | | | | | | Phone: | Fax: | | | | | | [phone] | [phone] | +--------+--------+ + + + + Encounter Details +--------+---------+ + + + | Date | Type | Department | Care Team | Description | +--------+---------+ + + + | 11/07/ | Office | Neurosurgery at | Raegan Doss, | Spinal cord tumor | | 2016 | Visit | [facility] | PA-C [address] | (Primary Dx) | | | | and Healing [address] | [address] [place], [place] | | | | | [address] Mailcode: | [address] | | | | | [facility] | [phone] | | | | | Health and Healing, | | | | | | [facility] | | | | | | Floor [place], [place] | | | | | | [address] | | | | | | [phone] | | | +--------+---------+ + + + [...] today to discuss her recent move to [place] and medica tion coverage. She moved in 1 week ago with her boyfriend's family and would like to establi sh with a local PCP. She has not seen her PCP, Tiff SPIVEY, since discharging from [facility] recently and is unsure of who can [...] herself when she walks. Her daughter's st yairer is convenient for this purpose. Her sensation [...] like to start PT session s at [facility]. Ht 1.6 m (5' 3"), Wt 84.2 [...] strength post-op. Patient has now moved to [place] and wishes t o establish PCP care locally. Plan: -The patient will call her PCP, PATRIC Becerra, and ask if she will be willing to contin ue writing prescriptions for her while she looks for a PCP in the [facility] [place]. -The patient will actively look for a PCP locally. -The patient will call [facility] PT to schedule follow up PT sessions -If the pt's PCP is unable/unwilling to continue writing for prescription medications, then I will be willing to cover for this until the patient establishes with a local PCP. The pat ient's current medications were updated by myself personally. -I recommended monitoring fluid intake and drinking at least 3/4 a gallon of water a day. A fter 1 day of this, void and then self cath to see if there is any residual. -The patient will contact me PRN NEUROSURGERY AT [facility] [address] Mailcode: [facility] [place] [address] documented in this encounter Plan [...] | | | | | | [place], [place] | | | | | | [address] | | | | | | [phone] | | | | | | | | +--------+ + + + + | 12/10/ | Office | Neurological Surgery | April Beck MD | | | 2019 | Visit | | [address] | | | | | | [address] | | | | | | [place], [place] | | | | | | [address] | | | | | | [phone] | | | | | | | | +--------+ + + + + documented as of this encounter Visit Diagnoses + + | Diagnosis | + + | 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
--- OUTSIDE RECORDS SUMMARY | ~2019-11-28 | XMS | Encounter Summary ---
Demographics + + + | Address | [address] | | | [place] [address] | + + + | Home Phone [...] Team Providers + +------+ + | Care Franchise Sales Representative Name | Role | Phone | [...] [place]ald | | | | Note-Transc | [place], [place] | [place], [place] | | | | ribed | [address] | [address] | | | | | | | [...] | | | | | | [place], [place] | | | | | | [address] | | | | | | [phone] | | | | | | | | +--------+ + + + + | 12/10/ | Office | Neurological Surgery | April Beck MD | | | 2019 | Visit | | [address] | | | | | | [address] | | | | | | [facility] [place] | | | | | | [address] | | | | | | [phone] | | | | | | | | +--------+ + + + + documented as of this encounter Visit Diagnoses Not on filedocumented in this encounter"
--- OUTSIDE RECORDS SUMMARY | ~2019-11-28 | XMS | Encounter Summary ---
Demographics + + + | Address | [address] | | | [place] [address] | + + + | Home Phone [...] Team Providers + +------+ + | Care Plastic Surgery Specialist Name | Role | Phone | [...] | | | | Ave Mailcode: | [place], [place] | | | | | [facility] | [address] | | | | | and [place], | [phone] | | | | | Building [address] | | | | | | [place], [place] | | | | | | [address] | | | | | | [phone] | | | +--------+ + + + [...] | | | | | | [place], [place] | | | | | | [address] | | | | | | [phone] | | | | | | | | +--------+ + + + + | 12/10/ | Office | Neurological Surgery | April Beck MD | | | 2019 | Visit | | [address] [facility] | | | | | | [address] | | | | | | [place], [place] | | | | | | [address] | | | | | | [phone] | | | | | | | | +--------+ + + + + documented as of this encounter Visit Diagnoses Not on filedocumented in this encounter"
--- OUTSIDE RECORDS SUMMARY | ~2019-11-28 | XMS | Encounter Summary ---
Demographics + + + | Address | [address] | | | [place] [address] | + + + | Home Phone [...] Team Providers + +------+ + | Care Food Porter Name | Role | Phone | + [...] | spinal cord | Rd [facility] | [place], [place] | | | | | tumor with | Hospital | [address] | | | | | right leg | [place], [place] | Phone: | | | | | weakness. | [address] | [phone] | | | | | | Phone: | Fax: | | | | | | [phone] | [phone] | +--------+--------+ + + + + Encounter Details +--------+---------+ + + + | Date | Type | Department | Care Team | Description | +--------+---------+ + + + | 02/15/ | Office | Neurosurgery at | Romario Raegan K, | Spinal cord tumor | | 2016 | Visit | [facility] | PA-C [address] | (Primary Dx) | | | | and Healing [address] | [address] [place], [place] | | | | | [address] Mailcode: | [address] | | | | | [facility] | [phone] | | | | | Health and Healing, | | | | | | Building | | | | | | Floor [facility] [place] | | | | | | [address] | | | | | | [phone] | | | +--------+---------+ + + + [...] h aving her daughter, Joey'jovany, first birthday libertarian in 11 days. Ht 1.6 m (5' [...] will be after her daughter's first birthday libertarian in . 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
--- OUTSIDE RECORDS SUMMARY | ~2019-11-28 | XMS | Encounter Summary ---
Demographics + + + | Address | [address] | | | [place] [address] | + + + | Home Phone [...] Team Providers + +------+ + | Care Greenhouse Superintendent Name | Role | Phone | [...] | | | | | [place], | | | | | | [place] [address] | | | +--------+--------+ + + + [...] | | | | | | [place], [place] | | | | | | [address] | | | | | | [phone] | | | | | | | | +--------+ + + + + | 12/10/ | Office | Neurological Surgery | April Beck MD | | | 2020 | Visit | | [address] [facility] | | | | | | [address] | | | | | | [place], [place] | | | | | | [address] | | | | | | [phone] | | | | | | | | +--------+ + + + + documented as of this encounter Visit Diagnoses Not on filedocumented in this encounter"
--- OUTSIDE RECORDS SUMMARY | ~2019-11-28 | XMS | Encounter Summary ---
Demographics + + + | Address | [address] | | | [place] [address] | + + + | Home Phone [...] Team Providers + +------+ + | Care Deaf Interpreter Name | Role | Phone | + [...] | | | Ave Mailcode: CH8N | [facility] [place] | discharge 03/28/16: | | | | [facility] | [address] | Right-sided T8 and | | | | and Healing, | [phone] | T9 hemilaminectomy & | | | | | | resection of tumor | | | | Floor [facility] [place] | | (dos: 03/24/16) ) | | | | [address] | | | | | | [phone] | | | +--------+ + + + [...] | | | | | | [place], [place] | | | | | | [address] | | | | | | [phone] | | | | | | | | +--------+ + + + + | 12/10/ | Office | Neurological Surgery | April Beck MD | | | 2019 | Visit | | [address] | | | | | | [address] | | | | | | [place], [place] | | | | | | [address] | | | | | | [phone] | | | | | | | | +--------+ + + + + documented as of this encounter Visit Diagnoses Not on filedocumented in this encounter"
--- OUTSIDE RECORDS SUMMARY | ~2019-11-28 | XMS | Encounter Summary ---
Demographics + + + | Address | [address] | | | [place] [address] | + + + | Home Phone [...] Team Providers + +------+ + | Care City Assessor Name | Role | Phone | + [...] Archibald | | | | Note-Transc | [place], [place] | [place], [place] | | | | ribed | [address] | [address] | | | | | | | [...] | | | | | | [place], [place] | | | | | | [address] | | | | | | [phone] | | | | | | | | +--------+ + + + + | 12/10/ | Office | Neurological Surgery | April Beck MD | | | 2019 | Visit | | [address] | | | | | | [address] | | | | | | [facility] [place] | | | | | | [address] | | | | | | [phone] | | | | | | | | +--------+ + + + + documented as of this encounter Visit Diagnoses Not on filedocumented in this encounter"
--- OUTSIDE RECORDS SUMMARY | ~2019-11-28 | XMS | Encounter Summary ---
Demographics + + + | Address | [address] | | | [place] [address] | + + + | Home Phone [...] Team Providers + +------+ + | Care Banker Mason Name | Role | Phone | + +------+ + | Damir Sy MD | PCP | | + +------+ + Encounter Details +--------+ + + + + | Date | Type | Department | Care Team | Description | +--------+ + + + + | 07/08/ | Procedure | Diagnostic Imaging | | | | 2017 | Pass | Services at [facility] | | | | | | [address] | | | | | | [place] | | | | | | [facility] | | | | | | [place], [place] | | | | | | [address] | | | | | | [phone] | | | +--------+ + + + [...] [place] | | | | | | [address] | | | | | | [phone] | | | | | | | | +--------+ + + + + | 12/10/ | Office | Neurological Surgery | April Beck MD | | | 2019 | Visit | | [address] | | | | | | [address] | | | | | | [place], [place] | | | | | | [address] | | | | | | [phone] | | | | | | | | +--------+ + + + + documented as of this encounter Visit Diagnoses Not on filedocumented in this encounter"
--- OUTSIDE RECORDS SUMMARY | ~2019-11-28 | XMS | Encounter Summary ---
Demographics + + + | Address | [address] | | | [place] [address] | + + + | Home Phone [...] Team Providers + +------+ + | Care Reeling Machine Setup Operator Name | Role | Phone | + +------+ + | Clare Franks MD | PCP | | + +------+ + Encounter Details +--------+ + + + + | Date | Type | Department | Care Team | Description | +--------+ + + + + | 01/02/ | Document-Sc | Health Information | Unknown . | | | 2018 | anned | Services [address] | | | | [address] | | | | | | Mailcode: OP17A | | | | | | [facility] | | | | | | [place], [place] | | | | | | [address] | | | | | | [phone] | | | +--------+ + + + [...] | | 2019 | | | [address] | | | | | | [place] [facility] [place] | | | | | | [address] | | | | | | [phone] | | | | | | | | +--------+ + + + + | 12/10/ | Office | Neurological Surgery | April Beck MD | | | 2020 | Visit | | [address] | | | | | | [address] | | | | | | [place], [place] | | | | | | [address] | | | | | | [phone] | | | | | | | | +--------+ + + + + documented as of this encounter Visit Diagnoses Not on filedocumented in this encounter"
--- OUTSIDE RECORDS SUMMARY | ~2019-11-28 | XMS | Encounter Summary ---
Demographics + + + | Address | [address] | | | [place] [address] | + + + | Home Phone [...] Team Providers + +------+ + | Care Chronic Condition Nurse Name | Role | Phone | [...] | | | | MRI SPINE | [place], [place] | [address] | | | | | THORACIC WWO | [address] | for Health | | | | | CONTRAST | Phone: | and Healing, | | | | | [place] [facility], | [phone] | Building 1, | | | | | DORSAL SPINE | Fax: | 3rd Floor | | | | | COMBO | [phone] | [place], [place] | | | | | | | [address] | | | | | | | Phone: | | | | | | | [phone] | | | | | | | Fax: | | | | | | | [phone] | +--------+--------+ + + + + Occupational Therapy (Routine) +--------+--------+ + + + + | Status | Reason | Specialty | Diagnoses / | Referred By | Referred To | | | | | Procedures | Contact | Contact | +--------+--------+ + + + + | Closed | | | Diagnoses | DeDeaux, | | | | | | 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, | | | | | | spine tumor | PA-C [address] | | | | | | Procedures | [facility] | | | | | | | [address] | | | | | | OCCUPATIONAL | Rd | | | | | | THERAPY | [place], [place] | | | | | | REFERRAL | [address] | | +--------+--------+ + + + + [...] | | | spine tumor | PA-C [address] | | | | | | Procedures | [address] | | | | | | PHYSICAL | [address] | | | | | | THERAPY | Rd | | | | | | REFERRAL | [place], [place] | | | | | | | [address] | | +--------+--------+ + + + + [...] | +--------+ + + + + | 09/13/ | Hospital | [facility] [address]K [address] | Rajinder Luis MD | | | 2016 - | Encounter | [address] | [address] | | | | | [id number] [facility] | [place], [place] | | | 03/28/ | | HOSPITAL [place], | [address] | | | 2016 | | [place] [address] | [phone] | | | | | [phone] | | | +--------+ + + + [...] Luis MD PCP: Clare Chowdary MD Service: [facility] Neurosurgery Diagnoses Principal Final Diagnosis: 1. [...] resections (05/2015, 09/2015). The patient was [facility] on 03/21/2016 for a right-sided [...] [facility], and e patient and/or family [...] THIS IF YOU ARE STILL ADMITTED AT [facility]. This will be on the 8th floor at the [facility] on the [facility] located at [address], [place] [facility]. Polo roberts call [phone] if you have any questions or concerns [...] 7:46 AM Discharging Attending: Rajinder Luis MD [facility] [address] [address] [address] documented in this encounter Progress Notes Raegan Doss PA-C - 03/28/2016 7:46 AM PDTFormatting of this note might be different f rom the original. Neurosurgery Progress Note Hospital Day:7 Author; Raegan Doss PA-C Attending Physician: Rajinder Luis MD Interval Hx: No acute events overnight. Pt states she is looking forward to going to [facility] today. Pt state s her BLE sensation [...] moderate swelling under skin, no erythema, dry. [place] in place. Sensation: LT sensation at pre-op [...] on 04/05. This can be completed at [facility] or at the [facility] follow up visit. CV: HD stable. Pulm: [...] bed. On ppx Lovenox qHS. Dispo: To [facility] today at 11am. Will see patient back in clinic in 1 month with a repeat reasnora cic MRI. Raegan Doss PA-C [facility] [address] [address] [address] dams, PHILIPPE Mena - 03/27/2016 4:51 PM [...] ppx Lovenox qHS. Dispo: Likely dispo to [facility] tomorrow. Raegan Doss PA-C [facility] [address] [address]kp[address] [place] [address] umeet Mancilla MD - 03/26/2016 9:23 AM PDT NEUROSURGERY [...] Consult to physiatry with likely placement at [facility]. PT recs IPR. 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 Plan to repea t MRI in one month and evaluation for possible radiation needs at that time. HEENT/Derm: Menthol drops prn mouth soreness. Routine wound care to spinal incision - pleas e leave open to air. Okay to wash on 03/25. [place] will need to be removed at 2 [...] Dispo: Pending medical course, likely IPR at [facility]. Appreciate CM following. Sumeet Ross MD Neurological Surgery PGY1 Sumeet Malone MD - 03/25/2016 9:16 AM PDT . [...] Consult to physiatry with likely placement at [facility]. PT recs IPR. 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 Plan to repea t MRI in one month and evaluation for possible radiation needs at that time. HEENT/Derm: Menthol drops prn mouth soreness. Routine wound care to spinal incision - pleas e leave open to air. Okay to wash on 03/25. [place] will need to be removed at 2 [...] Dispo: Pending medical course, likely IPR at [facility]. Appreciate CM following. Sumeet Ross MD Neurological Surgery PGY1 acey Pimentel PA-C - 03/24/2016 11:18 AM PDTFormatting of this note might be different from the [facility] Neurosurgery Progress Note Hospital Day:3 Author; [...] sensation intact in all 4 extremities Motor: Spacer Type Bar And Segment Bicep Tricep Delt R 5 5 5 [...] to evaluate patient for possible admission to [facility]. Oncology: Pathology in process. Likely recurrent/residual low-grade [...] Dispo: Pending medical course. Kacey Pimentel PA-C [facility] [address] [address] [place] [address] dams, Raegan Nieves PA-C - 03/23/2016 7:58 [...] O2 Delivery Device: None (room air) (03/23/16 7319) 24 Hour Vital Min/Max: Systolic (24hrs), Av [...] Full strength throughout 11/10 - B, T, relief mate, HF, KE, APF, ADF Daniels catheter in [...] to evaluate patient for possible admission to [facility]. HEENT/Derm: Menthol drops prn mouth soreness. Routine [...] Dispo: Pending medical course. Raegan Doss PA-C [facility] [address] [address]/[place] [address] Yokasta Pizano MD - 03/22/2016 5:30 PM [...] consult per patient's request Yokasta Randall PGY3 [id number] Cesar Najera MD - 03/22/20 16 3:05 [...] | | 2019 | | | [place] [address] | | | | | | [address] [facility] [place] | | | | | | [address] | | | | | | [phone] | | | | | | | | +--------+ + + + + | 12/10/ | Office | Neurological Surgery | April Beck MD | | | 2019 | Visit | | [address] | | | | | | [address] | | | | | | [place], [place] | | | | | | [address] | | | | | | [phone] | | | | | | | [...] LABORATORY | [address] | [place] [address] | | | SERVICES, CORE | JEAN [...] | | | LABORATORY | | | AUSTRIAN | | | SERVICES, | | | [...] | + + + + + | [facility] | [address] | [place] [address] | | | SERVICES, CORE | PARK [...] [facility] | [address] | [place] [address] | | | SERVICES, CORE | PARK [...] | | | LABORATORY | | | AUSTRIAN | | | SERVICES, | | | [...] MDRD equation recommended by the | [facility] | | National Kidney Disease [...] + + + + + | [facility] LABORATORY | [address] | [place] [address] | | | NINO LEONARD | JEAN [...] [facility] | [address] | [place], [place] | | | ZELALEM HERRERA OF CARE | [address] | [address] | | | TESTS | | | [...] LABORATORY | [address] | [place] [address] | | | SERVICES, CORE | PARK [...] | | | LABORATORY | | | AUSTRIAN | | | SERVICES, | | | [...] + + + + + | [facility] [employer] | [address] | [place] [address] | | | HORACIO, NINO | JEAN [...] MARCEAM | [address] | [place], [place] | | | ZELALEM HERRERA OF CARE | [facility] | [address] | | | TESTS | | | [...] BRAMBILA | [address] | [place], [place] | | | JAVIER POINT OF CARE | [address] | [address] | | | TESTS | | | [...] MARQUAM | [address] | [place], [place] | | | ZELALEM HERRERA OF CARE | [address] | [address] | | | TESTS | | | [...] + + | MOISE BRAMBILA | [address] [facility] [address] [address] | [place], [place] | | | [facility] | [facility] | [address] | | | TESTS | | | | + + + + + OPERATION RECORD (03/24/2016 9:53 AM PDT) + + | Transcriptions | + + | Rajinder Luis MD - 03/22/2016 4:04 PM PDT Date of Service: 03/22/2016 Attending | | Surgeon: Rajinder Luis MD Medical Claims Representative(s): Thomas Gorman, | | Matt, Ph.D. Preoperative [...] was closed primarily using a running 5-0 Lambert-Thaddeus suture in a locking fashion. At | | the lowest incision, the dural tacking sutures were crossed. The dura was also closed | | in primary fashion using a running 5-0 Lambert-Thaddeus suture in locking fashion. These dural | [...] 03/22/2016 12:20:45DT: 03/22/2016 | | 16:04:07Job #: [id number] | + + CBC (HEMOGRAM) ONLY (03/24/2016 [...] | + + + + + | [facility] | [address] | [place] [address] | | | SERVICES, CORE | JEAN [...] | | | LABORATORY | | | AUSTRIAN | | | SERVICES, | | | [...] MDRD equation recommended by the | [facility] | | National Kidney Disease [...] + + + + + | [facility] LABORATORY | [address] | [place] [address] | | | SERVICES, NINO | JEAN [...] | 60 - 99 mg/dL | [facility] - | | | GLUCOSE, [...] BRAMBILA | [address] | [place], [place] | | | ZELALEM HERRERA OF CARE | [address] | [address] | | | TESTS | | | [...] PATTY | [address] | [place], [place] | | | ZELALEM HERRERA OF NURIA | [address] | [address] | | | TESTS | | | [...] PATTY | [address] | [place], [place] | | | ZELALEM HERRERA OF CARE | [facility] | [address] | | | TESTS | | | [...] | 60 - 99 mg/dL | [facility] - | | | GLUCOSE, [...] BRAMBILA | [address] | [place], [place] | | | ZELALEM HERRERA OF NURIA | [facility] | [address] | | | TESTS | | | [...] + + + + + | [facility] LABORATORY | [address] | [place] [address] | | | SERVICES, CORE | PARK [...] | + + + + + | [facility] | [address] | [place] [address] | | | SERVICES, CORE | JEAN [...] LABORATORY | [address] | [place] [address] | | | SERVICES, CORE | PARK [...] + + + + + | [facility] LAB[facility]ORY | [address] | [place] [address] | | | NINO LEONARD | JEAN [...] + + + + + | [facility] LAB[facility] | [address] | [place] [address] | | | NINO LEONARD | PARK [...] | | | LABORATORY | | | AUSTRIAN | | | SERVICES, | | | [...] | + + + + + | [facility] | [address] | [place] [address] | | | SERVICES, CORE | JEAN [...] BRAMBILA | [address] | [place], [place] | | | ZELALEM HERRERA OF NURIA | [address] | [address] | | | TESTS | | | [...] PATTY | [address] | [place], [place] | | | ZELALEM HERRERA OF CARE | [facility] | [address] | | | TESTS | | | [...] | 60 - 99 mg/dL | [facility] - | | | GLUCOSE, [...] BRAMBILA | [address] | [place], [place] | | | ZELALEM HERRERA OF [facility] | [address] | [address] | | | TESTS | | | [...] MARQUAM | [address] | [place], [place] | | | ZELALEM HERRERA OF NURIA | [facility] | [address] | | | TESTS | | | [...] | 60 - 99 mg/dL | [facility] - | | | GLUCOSE, [...] + + + | MOISE BRAMBILA | [address] | [place], [place] | | | ZELALEM HERRERA OF [facility] | [address] | [address] | | | TESTS | | | [...] SUMEET | | | | | | CREMARICHUY 03/22/2016 10:22 | | | | | | AM Preliminary / | | | | | | SUMEET CREMARICHUY 03/22/2016 | | | | | | [...] + | MOISE Morales HARRYYOLANDA | [address] | [place], [place] | | | JAVIER EROS OF [facility] | [address] | [address] | | | TESTS | | | | + + + + + INTRAOPERATIVE NEURO MONITORING (03/22/2016) + + + | Narrative | Performed At | + + + | Patient Name: Matt Fagan Date of : 1990 | | | Date of Test: 03/22/2016 Place of | | | Service: IP Intra Op [id number] INTRAOPERATIVE NEURO | | | MONITORING History: [...] Clinical Neurophysiology | | | Suggested CPT: 95495 - IOM Remote x 3 hr(s) 25148 - Short | | | Latency EP's Upper AND Lower extremities 78163 - Central Motor EP's | | | Upper AND Lower extremities 48663 - Neuromuscular Junction Test | | | [...] prior | | | | | | resections([id number] | | | | | | and [id number]) with | | | | | | [...] Pathology | | | | | | residentAaioana Bolton, | | | | | | [...] | | | [facility] | [...] | | | | | | record #[id number], and | | | | | | [...] + + + + | [facility] | [address] | [place] [address] | | | PATHOLOGY | JEAN CARLOS [...] | | AIRPORT - | | | [place] | + + + + + + + + | Performing | Address | City/State/Zipcode | Phone Number | | Organization | | | | + + + + + | [facility] | [address] | [place] [address] | | | [facility] | | | | + + + [...] LABORATORY | [address] | [place] [address] | | | SERVICES, CORE | PARK [...] LABORATORY | [address] | [place] [address] | | | SERVICES, CORE | PARK [...] [facility] | [address] | [place] [address] | | | SERVICES, CORE | PARK [...] | + + + + + | [facility] | [address] | [place] [address] | | | SERVICES, CORE | JEAN [...] LABORATORY | [address] | [place] [address] | | | SERVICES, | [address] [...] + + | [facility] | [address] | [place] [address] | | | SERVICES, | [address] [...] + + | MOISE TILLMAN | [address] | [place] [address] | | | SERVICES, NINO | PARK [...] + + + + + | [facility] LAB[facility] | [address] | [place] [address] | | | SERVICESNINO | JEAN CARLOS [...] | + + + + + | [facility] | [address] | [place] [address] | | | SERVICES, CORE | JEAN [...] LABORATORY | [address] | [place] [address] | | | SERVICES, CORE | PARK [...] | | | LABORATORY | | | AUSTRIAN | | | SERVICES, | | | | | | CORE | | + +---------+ + + + | EGFR NON | >60 | >60 mL/min | [facility] | | | -LEXEI | | | LABORATORY | | | [...] | + + + + + | [facility] | [address] | [place] [address] | | | SERVICES, CORE | JEAN [...] MARQUAM | [address] | [place], [place] | | | JAVIER POINT OF CARE | [address] | [address] | | | TESTS | | | [...] + + + + | PRODUCT | [id number] | | [facility] | | | UNIT [...] + + + + | EXPIRATION | [id number] | | [facility] | | | DATE [...] + + + + | BLOOD | [id number] | | [facility] | | | PRODUCT [...] OF | [address] | [place] [address] | | | PATHOLOGY | [address] [...] + + + + | PRODUCT | [id number] | | [facility] | | | UNIT [...] + + + + | EXPIRATION | [id number] | | [facility] | | | DATE [...] + + + + | BLOOD | [id number] | | [facility] | | | PRODUCT [...] OF | [address] | [place], [place] [address] | | | PATHOLOGY | [address] | | | + + + + + ED INFORMATION EXCHANGE (03/21/2016 6:36 PM PDT) + + + + + + | Component | Value | Ref Range | Performed | Pathologist | | | | | At | Signature | + + + + + + | LYNN P[facility] | [id number] | | [facility] | | | | [id number] | | MEDICAL | | | | [...] ------- ---- | | | 03/21/2016 18:35 [facility] and | | | [facility] [place] [address]. 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 | | | [place] Emergency NO FEELING IN LOWER LIMBS | | | INPATIENT VISIT TRACKING (1 MO.) Visit Date | | | LocationCity ST TypeDx / Complaint | | | ED | | | VISIT COUNT (1 YR.) Visits Location ------ --------- 2 | | | [facility] | | | [facility] 5 Total Note: Visits indicate total | | | known visits. | | | | | | --- CARE PROVIDERS Name | | | Phone Type | | | Service Dates ---- | | | ----- ---- | | | [facility] | | | [phone] Primary Care Unknown - Current | | | [facility] Unknown | | | Primary Care Unknown - Current [facility] MISC at [facility] | | | [facility] Unknown Primary Care | | | Unknown - Current [facility] | | | [id number] Primary Care 01/26/2016 - | | | Current [facility] | | | [id number] Primary Care 01/24/2016 - Current | | + + + + + + + + | Performing | Address | City/State/Zipcode | Phone Number | | Organization | | | | + + + + + | [facility] | [address] | [place], [place] | [phone] | | TE[employer] | [address] | [address] | | + + + + + [...] | | | | | 03/21/16 at 2036, Until Tue | | | | | [...] | | | | | 0835, Until Tu03/28/16 at 1729, | | | [...] | | | | last modification) on Sun | | | | | | | 03/24/16 at 0600, Last dose on Sun | | | [...] | | | | | modification) on Sun03/23/16 at | | | | | | | 1400, Last dose on Sun03/23/16 at | | | | | | [...] | | | | | modification) on 03/25/16 at | | | | | [...] injection 1 dose, | | | Starting Sun03/22/16 at 1354, | | | Until Sun03/22/16 [...] | | | | | 03/22/16 at 1837, Until Miriam | | | [...] | | | | | | Until Sun03/28/16 at 1729, | | | [...] | | | | | 1858, Until Sun03/28/16 at 1729, | | | [...] | | | | | CONTINUOUS, Starting 03/21/16 | | PM PDT | | | | | at 2044, Until Miriam 03/23/16 at | | | [...] | NEEDED, Starting Sun03/21/16 at | | | | | | | 2037, Until Sun03/22/16 at 1838, | | | | | [...] | | | 03/25/16 at 2043, Until e | | | | | | | [...] | NEEDED, Starting 03/21/16 at | | AM PDT | | | | | 8, Until Sun03/22/16 at 1851, | | | [...]
--- OUTSIDE RECORDS SUMMARY | ~2019-11-28 | XMS | Encounter Summary ---
Demographics + + + | Address | [address] | | | [place] [address] | + + + | Home Phone [...] Providers + +------+ + | Care Director Systems Name | Role | Phone | + +------+ + | Tiff Chapin | PCP | | + +------+ + Encounter Details +--------+ + + + + | Date | Type | Department | Care Team | Description | +--------+ + + + + | 05/11/ | Document-Sc | Health Information | Unknown . | | | 2014 | anned | Services [address] | | | | | | [address] | | | | | | Mailcode: [id number] | | | | | | [facility] | | | | | | [place], [place] | | | | | | [address] | | | | | | [phone] | | | +--------+ + + + [...] [place] | | | | | | [address] | | | | | | [phone] | | | | | | | | +--------+ + + + + | 12/10/ | Office | Neurological Surgery | April Beck MD | | | 2019 | Visit | | [address] | | | | | | [address] | | | | | | [facility] [place] | | | | | | [address] | | | | | | [phone] | | | | | | | [...]
--- OUTSIDE RECORDS SUMMARY | ~2019-11-28 | XMS | Encounter Summary ---
Demographics + + + | Address | [address] | | | [place] [address] | + + + | Home Phone [...] Team Providers + +------+ + | Care Credentialing Manager Name | Role | Phone | [...] | Surgery | Spinal cord | Dept [facility] | Rajinder Fisher MD | | | | | tumor ED | [address] | [address] | | | | | f/u T5-10 | [address] | [address] | | | | | spinal cord | Rd [facility] | [place], [place] | | | | | tumor with | Hospital | [address] | | | | | right leg | [place], [place] | Phone: | | | | | weakness. 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 | [facility] | [address] | (Primary Dx); | | | | and Healing [address] | [facility] [place] | Spinal cord tumor | | | | [address] Mailcode: | [id number] | | | | | [facility] | [phone] | | | | | Health and Healing, | | | | | | [facility] | | | | | | Floor [place], [place] | | | | | | [address] | | | | | | [phone] | | | +--------+---------+ + + + [...] | | 2019 | | | PA[facility] [address] | | | | | | [place], [place] | | | | | | [address] | | | | | | [phone] | | | | | | | | +--------+ + + + + | 12/10/ | Office | Neurological Surgery | April Beck MD | | | 2019 | Visit | | [address] [facility] | | | | | | [address] | | | | | | [place], [place] | | | | | | [address] | | | | | | [phone] | | | | | | | [...]
--- OUTSIDE RECORDS SUMMARY | ~2019-11-28 | XMS | Encounter Summary ---
Demographics + + + | Address | [address] | | | [place] [address] | + + + | Home Phone [...] Team Providers + +------+ + | Care Orthopedics Nurse Name | Role | Phone | [...] | | 2016 | | [facility] | [address] | FOR RESECTION OF | | | | [address] [facility] | [place], [place] | INTRINSIC SPINAL | | | | Hospital Admitting | [address] | CORD TUMOR | | | | Desk Located on the | [phone] | | | | | 9th floor | | | | | | [facility] [place] | | | | | | [address] | | | +--------+---------+ + + + [...] Luis MD PCP: Clare Chowdary MD Service: [facility] Neurosurgery Diagnoses Principal Final Diagnosis: 1. Residual [...] resections (05/2015, 09/2015). The [facility]2016 for a right-sided [...] [facility], and e patient and/or family [...] THIS IF YOU ARE STILL ADMITTED AT [facility]. [facility] located at [address] [place] [address]. Pleas e call [phone] if you have any questions or concerns [...] (03/28/16642) Discharge Patient To: Inpatient Rehab - [facility] Does patient have a planned readmission: No Discharge Summary Completed?: Yes. 03/28/2016 Discharging Provider: Raegan Doss PA-C Date Completed: 03/28/2016 Time Completed: 7:46 AM Discharging Attending: Rajinder Luis MD [facility] 10K [address] [address]/[place] [address] documented in this encounter Progress Notes Raegan [...] moderate swelling under skin, no erythema, dry. [place] in place. Sensation: LT sensation at pre-op [...] open to air. Okay to wash daily. Wilkeson will need to be removed at 2 weeks post-op, on 04/05. This can be completed at [facility] or at the [facility] follow up visit. CV: HD stable. Pulm: [...] bed. On ppx Lovenox qHS. Dispo: To [facility] today at 11am. Will see patient back in clinic in 1 month with a repeat [place] cic MRI. Raegan Doss PA-C [facility] [address]K [address] [facility] [address] dams, PHILIPPE Mena - 03/27/2016 4:51 PM [...] dispo to [facility] tomorrow. Raegan Doss PA-C [facility] [address] [id number] [place] [address] Sumeet Malone MD - 03/26/2016 9:23 AM [...] Consult to physiatry with likely placement at [facility]. PT recs IPR. Oncology: Pathology shows recurrent/residual [...] Dispo: Pending medical course, likely IPR at [facility]. Appreciate CM following. Sumeet Ross MD Neurological Surgery PGY1 aSumeet Blank MD - 03/25/2016 9:16 AM PDT . NEUROSURGERY PROGRESS NOTE 03/25/2016 Hospital Day #: 4 Attending: Rajinder Luis MD Interval Events: BENJMAIN O/N. No pain. Last BM 03/21. Objective: [...] Consult to physiatry with likely placement at [facility]. PT recs IPR. 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 Plan to repea t MRI in one month and evaluation for possible radiation needs at that time. HEENT/Derm: Menthol drops prn mouth soreness. Routine wound care to spinal incision - pleas e leave open to air. Okay to wash on 03/25. Wilkeson will need to be removed at 2 [...] sensation intact in all 4 extremities Motor: Lead Fabricator Bicep Tricep Delt R 5 5 5 [...] to evaluate patient for possible admission to [facility]. Oncology: Pathology in process. 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 Plan to repeat MRI in one month and evaluation for possible radiation needs at that time. HEENT/Derm: Menthol drops prn mouth soreness. Routine wound care to spinal incision - pleas e leave open to air. Okay to wash on 03/25. Wil[place]on will need to be removed at 2 [...] Dispo: Pending medical course. Kacey Pimentel PA-C [facility] [address] [facility] [id number] daRaegan shaffer PA-C - 03/23/2016 7:58 AM [...] O2 Delivery Device: None (room air) (03/23/16 8199) 24 Hour Vital Min/Max: Systolic (24hrs), Av [...] Full strength throughout 5/ - B, T, civil engineer in training, HF, KE, APF, ADF Daniels catheter in [...] to evaluate patient for possible admission to [facility]. HEENT/Derm: Menthol drops prn mouth soreness. Routine [...] Dispo: Pending medical course. Raegan Doss PA-C [facility] [address] [id number] [place] [address] Yokasta Pizano MD - 03/22/2016 5:30 PM [...] consult per patient's request Yokasta Randall PGY3 [id number] Cesar Najera MD - 03/22/20 16 3:05 [...] | | | | | | [place] [facility] [place] | | | | | | [address] | | | | | | [phone] | | | | | | | | +--------+ + + + + | 12/10/ | Office | Neurological Surgery | April Beck MD | | | 2019 | Visit | | [address] | | | | | | [address] | | | | | | [facility] [place] | | | | | | [address] | | | | | | [phone] | | | | | | | [...] | + + + + + | [facility] | [address] | [place] [address] | | | SERVICES, CORE | JEAN [...] | | | LABORATORY | | | EGYPTIAN | | | SERVICES, | | | [...] [facility] | [address] | [place] [address] | | | SERVICES, CORE | PARK [...] LABORATORY | [address] | [place] [address] | | | SERVICES, CORE | PARK [...] | | | LABORATORY | | | EGYPTIAN | | | SERVICES, | | | [...] | + + + + + | [facility] | [address] | [place] [address] | | | HORACIO, NINO | JEAN [...] [facility] | [address] | [place], [place] | | | JAVIER POINT OF CARE | [facility] | [address] | | | TESTS | | | [...] + + + + + | [facility] | [address] | [place] [address] | | | SERVICES, CORE | PARK [...] | | | LABORATORY | | | EGYPTIAN | | | SERVICES, | | | [...] | + + + + + | [facility] | [address] | [place] [address] | | | SERVICES, CORE | JEAN [...] [facility] | [address] | [place], [place] | | | ZELALEM HERRERA OF CARE | [address] | [address] | | | TESTS | | | [...] [facility] | [address] | [place], [place] | | | JAVIER POINT OF CARE | [address] | [address] | | | TESTS | | | [...] BR[facility]A | [address] | [place], [place] | | | ZELALEM HERRERA OF CARE | [address] | [address] | | | TESTS | | | [...] [facility] | [address] | [place], [place] | | | ZELALEM HERRERA OF CARE | [address] | [address] | | | TESTS | | | | + + + + + OPERATION RECORD (03/24/2016 9:53 AM PDT) + + | Transcriptions | + + | Rajinder Luis MD - 03/22/2016 4:04 PM PDT Date of Service: 03/22/2016 Attending | | Surgeon: Rajinder Luis MD Clinical Allergist(s): Thomas Gorman, | | MNacho., Ph.D. Preoperative [...] was closed primarily using a running 5-0 Emerson-Thaddeus suture in a locking fashion. At | | the lowest incision, the dural tacking sutures were crossed. The dura was also closed | | in primary fashion using a running 5-0 Emerson-Thaddeus suture in locking fashion. These dural | [...] 03/22/2016 12:20:45DT: 03/22/2016 | | 16:04:07Job #: [id number] | + + CBC (HEMOGRAM) ONLY (03/24/2016 [...] LABORATORY | [address] | [place] [address] | | | SERVICES, CORE | PARK [...] | | | LABORATORY | | | EGYPTIAN | | | SERVICES, | | | [...] | + + + + + | [facility] | [address] | [place] [address] | | | NINO LEONARD | JEAN [...] [facility]QU[facility] | [address] | [place], [place] | | | ZELALEM HERRERA OF CARE | [address] | [address] | | | TESTS | | | [...] (H) | 60 - 99 mg/dL | [facility] - | | | GLUCOSE, | | [...] BR[facility]BILA | [address] | [place], [place] | | | ZELALEM HERRERA OF CARE | [address] | [address] | | | TESTS | | | [...] MARQU[facility] | [address] | [place], [place] | | | ZELALEM HERRERA OF CARE | [address] | [address] | | | TESTS | | | [...] (H) | 60 - 99 mg/dL | [facility] - | | | GLUCOSE, | | [...] PATTY | [address] | [place], [place] | | | JAVIER POINT OF CARE | [address] | [address] | | | TESTS | | | [...] LABORATORY | [address] | [place] [address] | | | SERVICES, CORE | PARK [...] LABORATORY | [address] | [place] [address] | | | SERVICES, CORE | PARK [...] | + + + + + | [facility] | [address] | [place] [address] | | | SERVICES, CORE | JEAN [...] | + + + + + | [facility] | [address] | [place] [address] | | | SERVICES, CORE | PARK [...] | + + + + + | [facility] | [address] | [place] [address] | | | SERVICES, CORE | JEAN [...] | | | LABORATORY | | | EGYPTIAN | | | SERVICES, | | | [...] the MDRD equation recommended by the | [facility] | | National Kidney Disease Education Program. [...] + + + + + | [facility] | [address] | [place] [address] | | | HORACIO, NINO | JEAN [...] (H) | 60 - 99 mg/dL | [facility] - | | | GLUCOSE, | | [...] BRAMBILA | [address] | [place], [place] | | | ZELALEM HERRERA OF NURIA | [facility] | [address] | | | TESTS | | | [...] MARQUAM | [address] | [place], [place] | | | ZELALEM HERRERA OF CARE | [address] | [address] | | | TESTS | | | [...] + + | [facility] | [address] | [place], [place] | | | [facility] | [address] | [address] | | | TESTS | | | [...] + + + | [facility] | [address] | [place], [place] | | | ZELALEM HERRERA OF NURIA | [facility] | [address] | | | TESTS | | | [...] | [address] | [place], [place] | | | JAVIER POINT OF [facility] | [address] | [address] | | | TESTS | | | [...] BRAMBILA | [address] | [place], [place] | | | ZELALEM HERRERA OF CARE | [address] | [address] | | | TESTS | | | | + + + + + INTRAOPERATIVE NEURO MONITORING (03/22/2016) + + + | Narrative | Performed At | + + + | Patient Name: Matt Fagan Date of : 1990 | | | Date of Test: 03/22/2016 Place of | | | Service: IP Intra Op ([id number] INTRAOPERATIVE NEURO | | | MONITORING History: [...] Clinical Neurophysiology | | | Suggested CPT: 18375 - IOM Remote x 3 hr(s) 34027 - Short | | | Latency EP's Upper AND Lower extremities 51676 - Central Motor EP's | | | Upper AND Lower extremities 13813 - Neuromuscular Junction Test | | | [...] prior | | | | | | resections([id number] | | | | | | and [id number]) with | | | | | | [...] | | | | [facility] | | | | | of [...] | | | | | | record #[id number], and | | | | | | [...] | + + + + + | [facility] | [address] | [place] [address] | | | PATHOLOGY | [address] [...] | | AIRPORT - | | | [place] | + + + + + + + + | Performing | Address | City/State/Zipcode | Phone Number | | Organization | | | | + + + + + | [facility] | [address] | [place] [address] | | | [place] | | | | + + + [...] | + + + + + | [facility] | [address] | [place] [address] | | | SERVICES, CORE | JEAN [...] LABORATORY | [address] | [place] [address] | | | SERVICES, CORE | JEAN [...] + + + + + | [facility] | [address] | [place] [address] | | | NINO LEONARD | JEAN [...] LABORATORY | [address] | [place] [address] | | | SERVICES, CORE | PARK [...] | + + + + + | [facility] | [address] | [place] [address] | | | SERVICES, | JEAN CARLOS [...] LABORATORY | [address] | [place] [address] | | | SERVICES, | [address] [...] 386 | 200 - 450 mg/dL | [facility] | | | LEVEL | | | [...] + | [facility] | [address] | [place] [address] | | | SERVICES, CORE | JEAN [...] + + + + + | [facility] | [address] | [place] [address] | | | SERVICES, CORE | PARK [...] [facility] | [address] | [place] [address] | | | SERVICES, NINO | PARK [...] | + + + + + | [facility] | [address] | [place] [address] | | | SERVICES, CORE | JEAN [...] | | | LABORATORY | | | EGYPTIAN | | | SERVICES, | | | | | | CORE | | + +---------+ + + + | EGFR NON | >60 | >60 mL/min | [facility] | | | -LEIXE | | | LABORATORY | | | [...] + + + + + | [facility] | [address] | [place] [address] | | | SERVICES, CORE | JEAN [...] BRAMBILA | [address] | [place], [place] | | | JAVIER POINT OF CARE | [address] | [address] | | | TESTS | | | [...] + + + + | PRODUCT | [id number] | | [facility] | | | UNIT [...] + + + + | EXPIRATION | [id number] | | [facility] | | | DATE [...] + + + + | BLOOD | [id number] | | [facility] | | | PRODUCT [...] | + + + + + | [facility] | [address] | [place] [address] | | | PATHOLOGY | [address] [...] + + + + | PRODUCT | [id number] | | [facility] | | | UNIT [...] + + + + | EXPIRATION | [id number] | | [facility] | | | DATE [...] + + + + | BLOOD | [id number] | | [facility] | | | PRODUCT [...] | + + + + + | [facility] | [address] | [place] [address] | | | PATHOLOGY | [address] | | | + + + + + ED INFORMATION EXCHANGE (03/21/2016 6:36 PM PDT) + + + + + + | Component | Value | Ref Range | Performed | Pathologist | | | | | At | Signature | + + + + + + | [facility]YNN PID | [id number] | | [facility] | | | | [id number] | | MEDICAL | | | | [...] | | | 03/21/2016 18:35 [facility] and | | | [facility] [place] Emergency [id number]. 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 | | | [place] Emergency NO FEELING IN LOWER LIMBS | | | INPATIENT VISIT TRACKING (1 MO.) Visit Date | | | LocationCity ST TypeDx / Complaint | | | ED | | | VISIT COUNT (1 YR.) Visits Location ------ --------- 2 | | | [facility] | | | [facility] Total Note: Visits indicate total | | | known visits. | | | | | | --- CARE PROVIDERS Name | | | Phone Type | | | Service Dates ---- | | | ----- ---- | | | [facility] | | | [phone] Primary Care Unknown - Current | | | [facility] Unknown | | | Primary Care Unknown - Current [facility] | | | [facility] Unknown Primary Care | | | Unknown - Current [facility] | | | [id number] Primary Care 01/26/2016 - | | | Current [facility] | | | [phone] Primary Care 01/24/2016 - Current | | + + + + + + + + | Performing | Address | City/State/Zipcode | Phone Number | | Organization | | | | + + + + + | [facility] | [address] | [place], [place] | [phone] | | [employer] | [address] | [address] | | + + + + + [...]
--- OUTSIDE RECORDS SUMMARY | ~2019-11-28 | XMS | Clinical Summary ---
Demographics + + + | Address | [address] | | | [place] [address] | + + + | Home Phone | | + + + | Preferred Language | Unknown | + + + | Marital Status | Unknown | + + + | Orthodoxy Affiliation | Unknown | + + + | Race | Unknown | + + + | Ethnic Group | Unknown | + + + Author + + + | Author | [facility] | | | and [place] | + + + | Organization | [facility] | | | and [...] [place], [place] | | | | | [address] | | + + + + + Care Team Providers + +------+ + | Care Hairspring Cutter Name | Role | Phone | [...] | [employer] | [employer] | [id number] | 05/06/ | [phone] | | [employer] | | MEDICAID HMO [...] | | 6 (Home) | [place] [address] | + +--------+ +--------+ + + | Matt Fagan T | Person | Self | [birth year] | [address] | | | al/Fam | | 1990 | [phone] | [address] | | | mehul | | | 6 (Home) | [place] [address] | + +--------+ +--------+ + + Advance Directives + + + + + | Type | Date Recorded | Patient | Explanation | | | | Regional Marketing Director | | + + + + + | Power of | | | | | Pulverizer Operator | | | | + + + + + | Advance | | | | | Directive | | | | + + + + +"
--- OUTSIDE RECORDS SUMMARY | ~2019-11-28 | XMS | Encounter Summary ---
Demographics + + + | Address | [address] | | | [place] [address] | + + + | Home Phone [...] Team Providers + +------+ + | Care Robotype Operator Name | Role | Phone | + +------+ + | Clare Franks MD | PCP | | + +------+ + Encounter Details +--------+ + + + + | Date | Type | Department | Care Team | Description | +--------+ + + + + | 01/28/ | Document-Sc | Health Information | Unknown . | | | 2017 | anned | Services [address] | | | | | | [address] | | | | | | Mailcode: OP17A | | | | | | [facility] | | | | | | [place], [place] | | | | | | [address] | | | | | | [phone] | | | +--------+ + + + [...] | | | | | | [place], [place] | | | | | | [address] | | | | | | [phone] | | | | | | | | +--------+ + + + + | 12/10/ | Office | Neurological Surgery | April Beck MD | | | 2020 | Visit | | [address] | | | | | | [address] | | | | | | [place], [place] | | | | | | [address] | | | | | | [phone] | | | | | | | | +--------+ + + + + documented as of this encounter Visit Diagnoses Not on filedocumented in this encounter"
--- OUTSIDE RECORDS SUMMARY | ~2019-11-28 | XMS | Encounter Summary ---
Demographics + + + | Address | [address] | | | [place] [address] | + + + | Home Phone [...] Team Providers + +------+ + | Care Hotel Night Auditor Name | Role | Phone | + +------+ + | Damir Sy MD | PCP | | + +------+ + Encounter Details +--------+ + + + + | Date | Type | Department | Care Team | Description | +--------+ + + + + | 06/04/ | Procedure | Radiology/Imaging | | | | 2017 | Pass | Lab at [facility] [address] | | | | | | [address] [place] Mailcode: | | | | | | [facility] | | | | | | Health and Healing, | | | | | | Building [facility] | | | | | | Floor [place], [place] | | | | | | [address] | | | | | | [phone] | | | +--------+ + + + [...] | | | | | | [place] [facility] [place] | | | | | | [address] | | | | | | [phone] | | | | | | | | +--------+ + + + + | 12/10/ | Office | Neurological Surgery | April Beck MD | | | 2020 | Visit | | [address] | | | | | | [address] | | | | | | [place], [place] | | | | | | [address] | | | | | | [phone] | | | | | | | | +--------+ + + + + documented as of this encounter Visit Diagnoses Not on filedocumented in this encounter"
--- OUTSIDE RECORDS SUMMARY | ~2019-11-28 | XMS | Encounter Summary ---
Demographics + + + | Address | [address] | | | [place] [address] | + + + | Home Phone [...] + + + | Author | [facility] | + + + | Organization | [facility] | + + + | [...] Team Providers + +------+ + | Care Color Tester Name | Role | Phone | [...] | | | | | Procedures | [place], [place] | | | | | | OCCUPATIONAL | [address] | | | | | | THERAPY | Phone: | | | | | | REFERRAL | [phone] | | | | | | | Fax: | | | | | | | [phone] | | +--------+--------+ + + + + [...] | | | right lower | [facility] [address] | | | | | | extremity | [address] | | | | | | Procedures | [place], [place] | | | | | | PHYSICAL | [address] | | | | | | THERAPY | Phone: | | | | | | REFERRAL | [phone] | | | | | | | Fax: | | | | | | | [phone] | | +--------+--------+ + + + + [...] | | | | | Hyperreflexi | [place], [place] | [facility] [place] | | | | | 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 | Phone: | Phone: | | | | | Procedures | [phone] | [phone] | | | | | SURGICAL | Fax: | Fax: | | | | | CASE REQUEST | [phone] | [phone] | +--------+--------+ + + + + Reason [...] + + | 10/01/ | Hospital | [facility] [address] | Tavo English | | | 2019 - | Encounter | [place] [address] Tierra Mai MD [address] | | | | | [place], | [facility] [address] | | | 10/08/ | | [place] [address] | [place], [place] | | | 2018 | | [phone] | [address] | | | | | | [phone] | | | | | | | | | | | | Nanette Chapin MD | | | | | | [address] | | | | | | [facility] [address] | | | | | | [place], [place] | | | | | | [address] | | | | | | [phone] | | | | | | | | | | | | Shahram Medina MD | | | | | | [address] | | | | | | [place], [place] | | | | | | [address] | | | | | | [phone] | | | | | | | | | | | | Rajinder Luis MD | | | | | | [address] | | | | | | [place], [place] | | | | | | [address] | | | | | | [phone] | | | | | | | [...] Rajinder Luis MD PCP: PATRIC Flores Service: [facility] Neurosurgery Diagnoses Principal Final Diagnosis: [...] on the 1 2th floor at the [facility] on the [facility] located at [address] [place] [address]. Please call [phone] if you have any questions or concerns [...] (10/05/18 1244) Discharge Patient To: Interhospital Transfer [facility] Does patient have a planned readmission: No Discharge Summary Completed?: Yes. 10/08/2018 Discharging Provider: RAEGAN DOSS PA-C Date Completed: 10/08/2018 Time Completed: 10:36 AM Discharging Attending: Rajinder Luis MD [facility] [address] [place] [address] documented in this encounter Medications at Time [...] accepted, hopeful for today. RAEGAN DOSS PA-C [facility] [address] [place] [address] dams, PHILIPPE Mena - 10/07/2018 8:33 AM [...] in bed, on ppx lovenox. Dispo: To [place] once accepted. RAEGAN DOSS PA-C [facility] [address] [place] [address] Daniel Arcehiga MD - 10/06/2018 11:06 AM PDT NEUROSURGERY [...] WORRELL Routine Cultures PROCEDURE: Strep Screen Culture [[id number]: 11/05/2017 16:4 4 PDT P1] SOURCE: Throat STARTED: 11/05/2017 20:3 9 PDT FREE TEXT SOURCE: BODY SITE: FINAL REPORTS Final Report [] Verified Date/Time: 11/07/2017 11:07 PDT No beta Strep isolated. Order Comments O1: Strep Screen Culture (CULTURE THROAT STREP SCREEN - CGA - Ordering-Phys: CLARE GRAVES) Location: [facility] Performing Locations P1: This test was performed at: [facility] Lab Lab Results Component Value [...] Please contact the neurosurgery blackburn on-call pager [phone] with questions. Daniel Barahona M.D. Neurosurgery PGY-1 [...] Delivery Device: None (room a ir) (10/05/18 9883) General: 27 y.o. female in NAD Neuro: [...] control, planning for IPR Elif Mcclain PA-C [facility] [address] [place], [place] [id number] ong, DAMON Kim - 10/04/2018 8:39 AM [...] noted deficits below Delt Tri Bi WE Acid Blower HF KE APF ADF Left 5 5 [...] SPINE THOR / LUMB WWO CONTRAST Order: [id number] Performed: 10/01/2018 17:52 Status: Final result Visible [...] Secondary to clinical course Julio Wahl PA-C [facility] [address] [place] [address] Carrol Dave MD,P - 10/03/2018 10:00 PM [...] CARROL REYES MD,PhD Resident Neurological Surgery Pgr. [id number] Raegan Palmer PA-C - 10/03/2018 8:21 AM [...] Dispo: To [place] today. RAEGAN DOSS PA-C [facility] [address] [place] [address] Rajinder Antony MD - 10/02/2018 7:51 PM [...] surgery? No Chris Cano MD Neurosurgery PGY2 77826 Julio Rendon PA-C - 10/02/2018 8:22 AM [...] noted deficits below Delt Tri Bi WE Acid Blower HF KE APF ADF Left 5 5 [...] SPINE THOR / LUMB WWO CONTRAST Order: [id number] Performed: 10/01/2018 17:52 Status: Final result Visible [...] clinical course, pending surgery Julio Wahl PA-C [facility] [address] [place] [address] documented in this enc ounter Plan of [...] | | | | | | [place], [place] | | | | | | [address] | | | | | | [phone] | | | | | | | | +--------+ + + + + | 12/10/ | Office | Neurological Surgery | April Beck MD | | | 2019 | Visit | | [address] | | | | | | [address] | | | | | | [place], [place] | | | | | | [address] | | | | | | [phone] | | | | | | | [...] Attending | | Surgeon: Rajinder Luis MD Screen Room Operator(s): Joby Thibodeaux MD. | | Preoperative [...] the operating room on a | | [facility]. General endotracheal anesthesia was induced by the Anesthesia team | | without complication. The neuromonitoring team placed the necessary electrodes for | | monitoring of somatosensory evoked potentials and motor evoked potentials. The patient | | was then placed in a prone position on a [employer] [place] table. All pressure points | | were [...] 10/03/2018 | | 19:49:32DT: 10/03/2018 20:24:12Job #: [id number] | + + X-RAY SPINE THORACIC 1 [...] BRAMBILA | [address] | [place], [place] | | | [place]ELALEM HERRERA OF NURIA | [address] | [address] | | | TESTS | | | [...] prior | | | | | | [id number], low grade | | | | | [...] resection | | | | | | ([id number]), with | | | | | | [...] | | | | y, [facility] | | | | | | [facility] | | | | | | [...] number | | | | | | [id number].A. Spine, | | | | | | [...] | + + + + + | [facility] | [address] | [place] [address] | | | PATHOLOGY | [address] | | | + + + + + INTRAOPERATIVE NEURO MONITORING (10/03/2018) + + + | Narrative | Performed At | + + + | Patient Name: Qiana Worrell Date of : 1990 | | | Date of Test: 10/03/2018 Place of | | | Service: IP Intra Op [phone] [id number] INTRAOPERATIVE NEURO | | | MONITORING IOM: [...] | | | Norma Jordan MD, MA, [facility] Tank Assembler of Neurology | | | Suggested CPT: G0453 - IOM Continuous divided attention to single | | | patient x 10 @ 15 min(s[place] [address] - Short Latency EP's | | | Upper AND Lower extremities 12519 - Central Motor EP's Upper AND | [...] LABORATORY | [address] | [place] [address] | | | SERVICES, | [address] [...] | + + + + + | [facility] | [address] | [place] [address] | | | SERVICES, | [address] [...] | + + + + + | [facility] | [address] | [place] [address] | | | SERVICES, | [address] [...] | + + + + + | [facility] | [address] | [place] [address] | | | SERVICES, CORE | JEAN [...] | + + + + + | [facility] | [address] | [place] [address] | | | SERVICES, CORE | JEAN [...] LABORATORY | [address] | [place] [address] | | | SERVICES, CORE | [address] [...] | + + + + + | [facility] | [address] | [place] [address] | | | SERVICES, CORE | [address] | | | + + + + + ED INFORMATION EXCHANGE (10/01/2018 12:03 PM PDT) + + | Specimen | + + | | + + + + + | Narrative | Performed At | + + + | [id number]:GURVINDER [id number] Criteria Met Has | [facility] | | Guidelines PDMP Security and Safety No recent Security Events | MEDICAL | | currently on file ED Care Guidelines from [facility] | [employer] | | [facility] Last Updated: 02/08/17 11:58 AM [facility] | | | Emergency DepartmentSuggested Care RecommendationsAuthor: Cecily Najera, | | | [facility] centerstephanie Qghlgo Update: | | | 02/08/2017Medical:- Thoracic intramedullary [...] | | not been able to work, receivesFootnoteI and food stamps.Community | | | Supports-Primary care provider/clinic: Dr. Clare Chowdary, | | | [facility], - Neurosurgery: [facility], | | | Rajinder Luis MD and PHILIPPE Mckeon - [phone]-Insurance care | | | coordinator: Estelita, -Housing: living [place] [facility] with | | | mother Judit and [...] Count (12 mo.) Facility Visits [facility] | | | [facility] 1 [facility] 1 Total 2 Note: | | | Visits indicate total known visits. Recent Emergency Department | | | Visit Summary Date Facility [facility] Type Diagnoses or Chief | | | Complaint Oct 01, 2018 [facility] [place] | | | [place] Emergency 10,800. MRI Jul 06, 2018 [facility]. | | | 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 Inpatient Rehab Spinal | [...] Service | | | Dates MARBIN CHAPIN, OXYGEN SYSTEM TESTER-BC Nurse Practitioner: Family Current | | | MADHAVI MONTANEZ, SALES HUNTER Animation Director: Clinical ([phone]) | | | [phone] Current CORNELIO VILLASENOR , CESARIO Sales Expert Home Theater (165) | | | [phone] Current [employer] This patient | | | has registered at the [facility] | | | Emergency Department For more information visit: | | | [email or web address] | | | [email or web address] andnbsp PLEASE NOTE: [...] | or completeness of information provided. 2019 [employer] | | | [employer]. - [email or web address] | | + + + + + | Procedure Note | + + | Service Account, Rtf Results Inbound - 10/01/2018 12:04 PM PDT Formatting of this | | note might be different from the original.[facility]LECT[facility]?NOTIFICATION?10/01/2018 | | 12:01?QIANA WORRELL? Met Has Guidelines PDMPSecurity and | | SafetyNo recent Security Events currently on fileED Care Guidelines from [facility] | [facility] Updated: 02/08/17 11:58 AM [facility] Emergency DepartmentSuggested | | Care RecommendationsAuthor: Angie Chavez Ipjoff | | Update: 02/08/2017Medical:- Thoracic intramedullary spinal [...] provider/clinic: Dr. Sparks | | Karma Chowdary, [facility], - Neurosurgery: Rajinder QURESHI | | MD Toby and PHILIPPE Mckeon - [phone]-Insurance intensive care ambulance paramedic: Estelita, | | [phone]-Housing: living [place] [facility] with mother Judit and 2 y/o daughter [...] Visit Count (12 mo.)Facility Visits [facility] | [facility] 1 [facility] 1 Total 2 Note: Visits indicate total | | known visits. Recent Emergency Department Visit SummaryDate Facility [facility] State Type | | Diagnoses or Chief Complaint Oct 01, 2018 [facility] [place] | | Emergency 10,800. MRI Jul 06, 2018 [facility]. [place] Emergency | | 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in Anesthesia of skin | | Allergy status to sulfonamides status Other terminal gauger (current) drug therapy | | Brown-Sequard syndrome Recent Inpatient Visit SummaryDate Facility [facility] State Type | | Diagnoses or Chief Complaint Jul 12, 2018 [facility] [place] Inpatient Rehab | | [...] | Phone Fax Service Dates MARBIN CHAPIN, OXYGEN SYSTEM TESTER- Nurse Practitioner: Family Current | | MADHAVI MONTANEZ LCSW Animation Director: Clinical Current [facility], | | CORNELIO Bates ND Sales Expert Home Theater Current [facility] | | patient has registered at the [facility] Emergency Department | | For more information visit: | | [email or web address] andnbsp | | PLEASE NOTE: 1. Any [...] completeness of information | | provided.? 2019 [employer] - [email or web address] | |Oct 01, 2018 [facility] [place] Emergency | | 10,800. MRI | | | |Jul 06, [address] [facility] [place] Emergency | | 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in | | Anesthesia of skin | | Allergy status to sulfonamides status | | Other terminal gauger (current) drug therapy | | Brown-Sequard syndrome | | | | | | | |Recent Inpatient Visit Summary | |Date Facility City State Type Diagnoses or Chief Complaint | |Jul 12, [facility] [place] [facility] | | [...] Phone Fax Service Dates | |MARBIN CHAPIN, OXYGEN SYSTEM TESTER- Nurse Practitioner: Family Current | |MADHAVI MONTANEZ LCSW Animation Director: Clinical Current | |CORNELIO VILLASENOR , CESARIO Sales Expert Home Theater Current | | | |Collective Portal | |This patient has registered at the [facility] Emergency Departmen t | |For more information visit: [email or web address] | |andnbsp PLEASE NOTE: | | 1. [...] information provided. | | | |? 2019 [employer]. - [email or web address] | + + + + + + + | Performing | Address | City/State/Zipcode | Phone Number | | Organization | | | | + + + + + | [facility] | [address] | [place], [place] | [phone] | | [employer] | [address] | [address] | | + + + + + [...] | | | | First dose on [facility] 10/03/18 at | | | | [...] | | | | | CONTINUOUS, Starting [facility] 10/03/18 | | AM PDT | [...] | | | | | NEEDED, Starting [facility] 10/03/18 | | AM PDT | [...]
--- OUTSIDE RECORDS SUMMARY | ~2019-11-28 | XMS | Encounter Summary ---
Demographics + + + | Address | [address] | | | [place] [address] | + + + | Home Phone [...] Providers + +------+ + | Care Supervisor Computer Operations Name | Role | Phone | + [...] | | | | MRI SPINE | [place], [place] | [address] | | | | | THORACIC WWO | [address] | for Health | | | | | CONTRAST | Phone: | and Healing, | | | | | [place] MRI, | [phone] | Building 1, | | | | | DORSAL SPINE | Fax: | 3rd Floor | | | | | COMBO | [phone] | [place], [place] | | | | | | | [address] | | | | | | | Phone: | | | | | | | [phone] | | | | | | | Fax: | | | | | | | [phone] | +--------+--------+ + + + + Occupational [...] | | | | | Procedures | [facility] | | | | | | | [address] | | | | | | OCCUPATIONAL | Rd | | | | | | THERAPY | [place], [place] | | | | | | REFERRAL | [address] | | +--------+--------+ + + + + [...] | | | spine tumor | PA-C [address] | | | | | | Procedures | [address] | | | | | | PHYSICAL | [address] | | | | | | THERAPY | Rd | | | | | | REFERRAL | [place], [place] | | | | | | | [address] | | +--------+--------+ + + + + [...] + + | 09/13/ | Hospital | [facility] [address]K [address] | Rajinder Luis MD | | | 2016 - | Encounter | [address] | [address] | | | | | [id number] [facility] | [place], [place] | | | 03/28/ | | HOSPITAL [place], | [address] | | | 2016 | | [place] [address] | [phone] | | | | | [phone] | | | +--------+ + + + [...] Luis MD PCP: Clare Chowdary MD Service: [facility] Neurosurgery Diagnoses Principal Final Diagnosis: 1. [...] resections (05/2015, 09/2015). The patient was admitted [facility] on 03/21/2016 for a right-sided [...] patient was felt [facility], and e patient and/or family [...] THIS IF YOU ARE STILL ADMITTED AT [place]. This will be on the 8th floor at the [facility] on the [facility] located at [address], [place] [facility]. Polo roberts call [phone] if you have any questions or concerns [...] 7:46 AM Discharging Attending: Rajinder Luis MD [facility] 10F [address] [address] [address] documented in this encounter Progress Notes Raegan Doss PA-C - 03/28/2016 7:46 AM PDTFormatting of this note might be different f rom the original. Neurosurgery Progress Note Hospital Day:7 Author; Raegan Doss PA-C Attending Physician: Rajinder Luis MD Interval Hx: No acute events overnight. Pt states she is looking forward to going to [place] today. Pt state s her BLE sensation [...] moderate swelling under skin, no erythema, dry. Avon in place. Sensation: LT sensation at pre-op [...] on 04/05. This can be completed at [place] or at the [facility] follow up visit. CV: [...] bed. On ppx Lovenox qHS. Dispo: To [place] today at 11am. Will see patient back in clinic in 1 month with a repeat [place] [facility] MRI. Raegan Doss PA-C [facility] 10K [address] [address] [place], PHILIPPE Mena - 03/27/2016 [...] ppx Lovenox qHS. Dispo: Likely dispo to [place] tomorrow. Raegan Doss PA-C [facility] 10K [address] [address]kp[address] [place] [address] umeet Mancilla MD - 03/26/2016 9:23 AM [...] Consult to physiatry with likely placement at [place]. PT recs IPR. 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 Plan to repea t MRI in one month and evaluation for possible radiation needs at that time. HEENT/Derm: Menthol drops prn mouth soreness. Routine wound care to spinal incision - pleas e leave open to air. Okay to wash on 03/25. Avon will need to be removed at 2 [...] Dispo: Pending medical course, likely IPR at [place]. Appreciate CM following. Sumeet Ross MD [...] Consult to physiatry with likely placement at [place]. PT recs IPR. 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 Plan to repea t MRI in one month and evaluation for possible radiation needs at that time. HEENT/Derm: Menthol drops prn mouth soreness. Routine wound care to spinal incision - pleas e leave open to air. Okay to wash on 03/25. Avon will need to be removed at 2 [...] Dispo: Pending medical course, likely IPR at [place]. Appreciate CM following. Sumeet Ross MD Neurological Surgery PGY1 acey Pimentel PA-C - 03/24/2016 11:18 AM PDTFormatting of this note might be different from the [facility] lYaz Neurosurgery Progress Note Hospital Day:3 Author; [...] sensation intact in all 4 extremities Motor: Corporate Giving Manager Bicep Tricep Delt R 5 5 [...] to evaluate patient for possible admission to [place]. Oncology: Pathology in process. Likely recurrent/residual [...] Dispo: Pending medical course. 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 HEENT/Derm: Menthol drops prn mouth soreness. [...] Dispo: Pending medical course. Raegan Doss PA-C [facility] [address]K [address] [address] [address] Yokasta Pizano MD - 03/22/2016 5:30 PM [...] consult per patient's request Yokasta Randall PGY3 [id number] Cesar Najera MD - 03/22/20 16 3:05 [...] | | 2019 | | | [place] [address] | | | | | | [place] [facility] [place] | | | | | | [address] | | | | | | [phone] | | | | | | | | +--------+ + + + + | 12/10/ | Office | Neurological Surgery | April Beck MD | | | 2019 | Visit | | [address] | | | | | | [address] | | | | | | [place], [place] | | | | | | [address] | | | | | | [phone] | | | | | | | [...] LABORATORY | [address] | [place] [address] | | | SERVICES, CORE | JEAN [...] | | | LABORATORY | | | FINNISH | | | SERVICES, | | | [...] CENTER | [address] | [place] [address] | | | SERVICES, CORE | PARK [...] [facility] | [address] | [place] [address] | | | SERVICES, CORE | PARK [...] | | | LABORATORY | | | FINNISH | | | SERVICES, | | | [...] the MDRD equation recommended by the | [facility] | | National Kidney Disease [...] | + + + + + | [facility] LAB[facility]ATORY | [address] | [place] [address] | | | NINO LEONARD | JEAN [...] MARQUAM | [address] | [place], [place] | | | ZELALEM HERRERA OF CARE | [address] | [address] | | | TESTS | | | [...] LABORATORY | [address] | [place] [address] | | | SERVICES, CORE | PARK [...] | | | LABORATORY | | | FINNISH | | | SERVICES, | | | [...] | + + + + + | [facility] [employer] | [address] | [place] [address] | | | HORACIO, NINO | JEAN [...] MARCEAM | [address] | [place], [place] | | | ZELALEM HERRERA OF CARE | [facility] | [address] | | | TESTS | | | [...] BRAMBILA | [address] | [place], [place] | | | JAVIER POINT OF CARE | [address] | [address] | | | TESTS | | | [...] MARQUAM | [address] | [place], [place] | | | ZELALEM HERRERA OF CARE | [address] | [address] | | | TESTS | | | [...] + + | MOISE BRAMBILA | [address] [facility] [address] | [place], [place] | | | [facility] | [facility] | [address] | | | TESTS | | | | + + + + + OPERATION RECORD (03/24/2016 9:53 AM PDT) + + | Transcriptions | + + | Rajinder Luis MD - 03/22/2016 4:04 PM PDT Date of Service: 03/22/2016 Attending | | Surgeon: Rajinder Luis MD Pathology Collector(s): Thomas Gorman, | | Matt, Ph.D. Preoperative [...] was closed primarily using a running 5-0 Carolina-Thaddeus suture in a locking fashion. At | | the lowest incision, the dural tacking sutures were crossed. The dura was also closed | | in primary fashion using a running 5-0 Carolina-Thaddeus suture in locking fashion. These dural | [...] of the procedure.Rajinder Enamorado | | Michelle Lusi MD was scrubbed and actively participated performing the critical portions of | | the operation.Rajinder Luis MDKG/MODLDD: 03/22/2016 12:20:45DT: 03/22/2016 | | 16:04:07Job #: [id number] | + + CBC (HEMOGRAM) ONLY (03/24/2016 [...] CENTER | [address] | [place] [address] | | | SERVICES, CORE | JEAN [...] | | | LABORATORY | | | FINNISH | | | SERVICES, | | | [...] the MDRD equation recommended by the | [facility] | | National Kidney Disease [...] | + + + + + | [facility]ORY | [address] | [place] [address] | | | SERVICES, NINO | JEAN [...] (H) | 60 - 99 mg/dL | [facility] - | | | GLUCOSE, [...] BRAMBILA | [address] | [place], [place] | | | ZELALEM HERRERA OF CARE | [address] | [address] | | | TESTS | | | [...] PATTY | [address] | [place], [place] | | | ZELALEM HERRERA OF NURIA | [address] | [address] | | | TESTS | | | [...] PATTY | [address] | [place], [place] | | | ZELALEM HERRERA OF CARE | [facility] | [address] | | | TESTS | | | [...] (H) | 60 - 99 mg/dL | [facility] - | | | GLUCOSE, [...] BRAMBILA | [address] | [place], [place] | | | ZELALEM HERRERA OF NURIA | [facility] | [address] | | | TESTS | | | [...] | + + + + + | [facility] LABORATORY | [address] | [place] [address] | | | SERVICES, CORE | PARK [...] | + + + + + | Wiper | [address] | [place] [address] | | | SERVICES, CORE | JEAN [...] LABORATORY | [address] | [place] [address] | | | SERVICES, CORE | PARK [...] | + + + + + | [facility] | [address] | [place] [address] | | | NINO LEONARD | JEAN [...] | + + + + + | [facility] | [address] | [place] [address] | | | NINO LEONARD | PARK [...] | | | LABORATORY | | | FINNISH | | | SERVICES, | | | [...] [facility] | [address] [facility] | [place] [address] | | | SERVICES, CORE | JEAN [...] BRAMBILA | [address] | [place], [place] | | | ZELALEM HERRERA OF NURIA | [address] | [address] | | | TESTS | | | [...] PATTY | [address] | [place], [place] | | | ZELALEM HERRERA OF CARE | [facility] | [address] | | | TESTS | | | [...] (H) | 60 - 99 mg/dL | [facility] - | | | GLUCOSE, [...] BRAMBILA | [address] | [place] | | | ZELALEM HERRERA OF [facility] | [address] | [address] | | | TESTS | | | [...] MARQUAM | [address] | [place], [place] | | | ZELALEM HERRERA OF NURIA | [facility] | [address] | | | TESTS | | | [...] (H) | 60 - 99 mg/dL | [facility] - | | | GLUCOSE, [...] + + + | MOISE BRAMBILA | [address] | [place], [place] | | | ZELALEM HERRERA OF [facility] | [address] | [address] | | | TESTS | | | [...] + | MOISE Morales HARRYYOLANDA | [address] [facility] | [place], [place] | | | JAVIER ALABASTER OF [facility] | [address] | [address] | | | TESTS | | | | + + + + + INTRAOPERATIVE NEURO MONITORING (03/22/2016) + + + | Narrative | Performed At | + + + | Patient Name: Matt Fagan Date of : 1990 | | | Date of Test: 03/22/2016 Place of | | | Service: IP Intra Op [id number] INTRAOPERATIVE NEURO | | | MONITORING History: [...] Clinical Neurophysiology | | | Suggested CPT: 40764 - IOM Remote x 3 hr(s) 38800 - Short | | | Latency EP's Upper AND Lower extremities 53616 - Central Motor EP's | | | Upper AND Lower extremities 20117 - Neuromuscular Junction Test | | | [...] prior | | | | | | resections([id number] | | | | | | and [id number]) with | | | | | | [...] | | | [facility] [...] | | | | | | record #[id number], and | | | | | | [...] + + + + | [facility] | [address] | [place] [address] | | | PATHOLOGY | JEAN CARLOS [...] | | AIRPORT - | | | [place] | + + + + + + + + | Performing | Address | City/State/Zipcode | Phone Number | | Organization | | | | + + + + + | [facility] | [address] | [place] [address] | | | [facility] | | | | + + + [...] LABORATORY | [address] | [place] [address] | | | SERVICES, CORE | PARK [...] LABORATORY | [address] | [place] [address] | | | SERVICES, CORE | PARK [...] [facility] | [address] | [place] [address] | | | SERVICES, CORE | PARK [...] CENTER | [address] | [place] [address] | | | SERVICES, CORE | JEAN [...] LABORATORY | [address] | [place] [address] | | | SERVICES, | [address] [...] | [facility] | [address] [facility] | [place] [address] | | | SERVICES, | [address] [...] MOISE TILLMAN | [address] | [place] [address] | | | SERVICES, NINO | PARK [...] | + + + + + | [facility] | [address] | [place] [address] | | | SERVICESNINO | JEAN CARLOS [...] | [facility] | [address] | [place] [address] | | | SERVICES, CORE | JEAN [...] LABORATORY | [address] | [place] [address] | | | SERVICES, CORE | PARK [...] | | | LABORATORY | | | FINNISH | | | SERVICES, | | | [...] [facility] | [address] [facility] | [place] [address] | | | SERVICES, CORE | JEAN [...] MARQUAM | [address] | [place], [place] | | | JAVIER POINT OF CARE | [address] | [address] | | | TESTS | | | [...] + + + + | PRODUCT | [id number] | | [facility] | | | UNIT [...] + + + + | EXPIRATION | [id number] | | [facility] | | | DATE [...] + + + + | BLOOD | [id number] | | [facility] | | | PRODUCT [...] OF | [address] | [place] [address] | | | PATHOLOGY | [address] [...] + + + + | PRODUCT | [id number] | | [facility] | | | UNIT [...] + + + + | EXPIRATION | [id number] | | [facility] | | | DATE [...] + + + + | BLOOD | [id number] | | [facility] | | | PRODUCT [...] OF | [address] | [place], [place] [address] | | | PATHOLOGY | [address] | | | + + + + + ED INFORMATION EXCHANGE (03/21/2016 6:36 PM PDT) + + + + + + | Component | Value | Ref Range | Performed | Pathologist | | | | | At | Signature | + + + + + + | [facility] | [id number] | | [facility] | | | | [id number] | | [facility]ICAL | | | | [...] ------- ---- | | | 03/21/2016 18:35 [facility] and | | | [facility] [place] [address]. 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 Total Note: Visits indicate total | | | known visits. | | | | | | --- CARE PROVIDERS Name | | | Phone Type | | | Service Dates ---- | | | ----- ---- | | | [facility] | | | [phone] Primary Care Unknown - Current | | | [facility] Unknown | | | Primary Care Unknown - Current [facility] | | | [facility] Unknown Primary Care | | | Unknown - Current [facility] | | | [id number] Primary Care 01/26/2016 - | | | Current [facility] | | | [id number] Primary Care 01/24/2016 - Current | | + + + + + + + + | Performing | Address | City/State/Zipcode | Phone Number | | Organization | | | | + + + + + | [facility] | [address] | [place], [place] | [phone] | | [employer] | [address] | [address] | | + + + + + [...]
--- OUTSIDE RECORDS SUMMARY | ~2019-11-28 | XMS | Encounter Summary ---
Demographics + + + | Address | [address] | | | [place] [address] | + + + | Home Phone [...] Providers + +------+ + | Care Plastic Printer Name | Role | Phone | + [...] Fever (102.2) | | 2016 | | [facility] | [address] | | | | | and Healing [address] | [place], [place] | | | | | [address] Mailcode: | [address] | | | | | [facility] | [phone] | | | | | Health and Healing, | | | | | | Building 1 | | | | | | Floor [place], [place] | | | | | | [address] | | | | | | [phone] | | | +--------+ + + + [...] | | | | | | [place], [place] | | | | | | [address] | | | | | | [phone] | | | | | | | | +--------+ + + + + | 12/10/ | Office | Neurological Surgery | April Beck MD | | | 2020 | Visit | | [address] [facility] [address] | | | | | | [address] | | | | | | [place] | | | | | | [address] | | | | | | [phone] | | | | | | | | +--------+ + + + + documented as of this encounter Visit Diagnoses Not on filedocumented in this encounter"
--- OUTSIDE RECORDS SUMMARY | ~2019-11-28 | XMS | Encounter Summary ---
Demographics + + + | Address | [address] | | | [place] [address] | + + + | Home Phone [...] | + + +---------+ + | Judit Fgaan | ECON | Unknown | | + + +---------+ + Care Team Providers + +------+ + | Care Gold Blower Name | Role | Phone | + +------+ + | Tiff Chapin | PCP | | + +------+ + Encounter Details +--------+------+ + + + | Date | Type | Department | Care Team | Description | +--------+------+ + + + | 07/12/ | Lab | Laboratory at [facility] | | Dysuria | | 2015 | | [address] | | | | | | [place], [place] | | | | | | [address] | | | | | | [phone] | | | +--------+------+ + + + [...] | | | | | | [place], [place] | | | | | | [address] | | | | | | [phone] | | | | | | | | +--------+ + + + + | 12/10/ | Office | Neurological Surgery | April Beck MD | | | 2019 | Visit | | [address] | | | | | | [address] | | | | | | [place], [place] | | | | | | [address] | | | | | | [phone] | | | | | | | [...] LABORATORY | [address] | [place] [address] | | | SERVICES, CORE | PARK [...] | + + + + + | [facility] | [address] | [place] [address] | | | HORACIO, NINO | PARK [...] LABORATORY | [address] | [place] [address] | | | HORACIO, NINO | [address] | | | + + + + + documented in this encounter Visit Diagnoses + + | Diagnosis | + + | Dysuria | + + documented in this encounter"
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
--- OUTSIDE RECORDS SUMMARY | ~2019-11-28 | XMS | Encounter Summary ---
Demographics + + + | Address | [address] | | | [place] [address] | + + + | Home Phone [...] Team Providers + +------+ + | Care Insurance Verifier Name | Role | Phone | + [...] | on | AMBULATORY [address] | PRIVATE PILOT [address] [facility] | | | | | [address] | [facility] | | | | | Mailcode: CH6A | [place], [place] | | | | | [place], [place] | [address] | | | | | [address] | [phone] | | | | | [phone] | | | +--------+ + + + [...] | | 2019 | | | [facility] [address] | | | | | | [place] [facility] [place] | | | | | | [address] | | | | | | [phone] | | | | | | | | +--------+ + + + + | 12/10/ | Office | Neurological Surgery | April Beck MD | | 2019 | Visit | | [address] | | | | | | [address] | | | | | | [place] | | | | | | [address] | | | | | | [phone] | | | | | | | | +--------+ + + + + documented as of this encounter Visit Diagnoses Not on filedocumented in this encounter"
--- OUTSIDE RECORDS SUMMARY | ~2019-11-28 | XMS | Encounter Summary ---
Demographics + + + | Address | [address] | | | [place] [address] | + + + | Home Phone [...] Team Providers + +------+ + | Care Floodplain Manager Name | Role | Phone | [...] | | | | tumor | [facility] [address] | | | | | | Procedures | [address] | | | | | | MRI SPINE | [place], [place] | | | | | | THORACIC WWO | [address] | | | | | | CONTRAST | Phone: | | | | | | | [phone] | | | | | | | Fax: | | | | | | | [phone] | | +--------+--------+ + + + + [...] | | | | Rd [facility] [place] | | | | | | Hospital | [address] | | | | | | [place], [place] | Phone: | | | | | | [address] | [phone] | | | | | | Phone: | Fax: | | | | | | [phone] | [phone] | +--------+--------+ + + + + Encounter Details +--------+---------+ + + + | Date | Type | Department | Care Team | Description | +--------+---------+ + + + | 10/19/ | Office | Neurosurgery at | Raegan Doss, | Spinal cord tumor | | 2016 | Visit | Center [facility] | PA-C [address] | (Primary Dx) | | | | and Healing [address] [place], [place] | | | | | [address] Mailcode: | [address] | | | | | [facility] | [phone] | | | | | Health and Healing, | | | | | | | | | | | | Floor [facility] [place] | | | | | | [address] | | | | | | [phone] | | | +--------+---------+ + + + [...] cord tumor on 09/09/15. She discharged to [facility] for 2-3 weeks a nd make substantial [...] with her boyfriend and is moving to [facility] next month. She denies having any [...] thoracic MRI wwo prior -Follow up with [facility] outpatient therapy as scheduled NEUROSURGERY AT [facility] [address] Mailcode: [place] [address] documented in this encounter Plan [...] | | | | | | [place], [place] | | | | | | [address] | | | | | | [phone] | | | | | | | | +--------+ + + + + | 12/10/ | Office | Neurological Surgery | April Beck MD | | | 2019 | Visit | | [address] | | | | | | [address] | | | | | | [place], [place] | | | | | | [address] | | | | | | [phone] | | | | | | | [...]
--- OUTSIDE RECORDS SUMMARY | ~2019-11-28 | XMS | Encounter Summary ---
Demographics + + + | Address | [address] | | | [place] [address] | + + + | Home Phone [...] Providers + +------+ + | Care Operations Executive Name | Role | Phone | + [...] | Post-discharge | | 2015 | | [facility] | [address] | follow-up (s/p | | | | and Healing [address] | [place], [place] | admission 05/06/15 - | | | | [address] Mailcode: | [address] | : anterior | | | | [facility] | [phone] | cervical diskectomy | | | | Health and Healing, | | and fusion at C6-7) | | | | | | | | | | Floor [facility] [place] | | | | | | [address] | | | | | | [phone] | | | +--------+ + + + [...] | | | | | [place] [facility] [place] | | | | | | [address] | | | | | | [phone] | | | | | | | | +--------+ + + + + | 12/10/ | Office | Neurological Surgery | April Beck MD | | | 2019 | Visit | | [address] | | | | | | [address] | | | | | | [facility] [place] | | | | | | [address] | | | | | | [phone] | | | | | | | | +--------+ + + + + documented as of this encounter Visit Diagnoses Not on filedocumented in this encounter"
--- OUTSIDE RECORDS SUMMARY | ~2019-11-28 | XMS | Encounter Summary ---
Demographics + + + | Address | [address] | | | [place] [address] | + + + | Home Phone [...] Team Providers + +------+ + | Care Editor Map Name | Role | Phone | + [...] | | | | | Medicine | PA-C [address] | | | | | | [address] | [address] | | | | | | [facility] | [place], [place] | | | | | | Rd | [address] | | | | | | [place], [place] | Phone: | | | | | | [address] | [phone] | | | | | | | Fax: | | | | | | | [phone] | +--------+--------+ + + + + Encounter [...] | | | Shwetha Mailcode: | [place], [place] | | | | | [facility] | [address] | | | | | and [place], | [phone] | | | | | Building | | | | | | [place], [place] | | | | | | [address] | | | | | | [phone] | | | +--------+---------+ + + + [...] specifics. 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 She takes gabapentin at 300mg daily for [...] 1 year for surveillance [facility] [address] [address] documented in this encounter Plan [...] | | | | | | [place], [place] | | | | | | [address] | | | | | | [phone] | | | | | | | | +--------+ + + + + | 12/10/ | Office | Neurological Surgery | April Beck MD | | | 2019 | Visit | | [address] | | | | | | [address] | | | | | | [place], [place] | | | | | | [address] | | | | | | [phone] | | | | | | | [...] | | Results for this | | W/REFLEX, SWAB | e | 5:05 AM | [...] [facility] | [address] | [place], [place] | | | LAB | | [address] | | + + + + + | [facility] | [address] | [place], [place] | | | LAB | | [address] | | + + + + + CULTURE, URINE (01/11/2017 6:45 AM PDT) + + + + + + | Component | Value | Ref Range | Performed | Pathologist | | | | | At | Signature | + + + + + + | URINE | Patient:FABIOGERADAVID, | | [facility] | | | CULTURE | QIANA MODI | | [facility] | | | [...] | | | | | | | [id number] SITE: | | | | | | [...] at: | | | | | | [facility] | | | | + + + + + + + + | Specimen | + + | | + + + + + + + | Performing | Address | City/State/Zipcode | Phone Number | | Organization | | | | + + + + + | [facility] | [address] | [place], [place] | | | LAB | | [address] | | + + + + + | [facility] | [address] | [place], [place] | | | LAB | | [address] | | + + + + + [...] [facility] | [address] | [place], [place] | | | LAB | | [address] | | + + + + + | [facility] | [address] | [place], [place] | | | LAB | | [address] | | + + + + + [...] [facility] | [address] | [place], [place] | | | LAB | | [address] | | + + + + + | [facility] | [address] | [place], [place] | | | LAB | | [address] | | + + + + + [...] [place] | | | LAB | | [address] | | + + + + + | [facility] | [address] | [place], [place] | | | LAB | | [address] | | + + + + + [...] mL/min/1.73m2 | [facility] | | | BELIZEAN | | | | | + +---------+ [...] [facility] | [address] | [place], [place] | | | LAB | | [address] | | + + + + + | [facility] | [address] | [place], [place] | | | LAB | | [address] | | + + + + + [...] | | | | | second(s) | [facility] | [...] [place] | | | LAB | | [address] | | + + + + + | [facility] | [address] | [place], [place] | | | LAB | | [address] | | + + + + + [...] [facility] | [address] | [place], [place] | | | LAB | | [address] | | + + + + + | [facility] | [address] | [place], [place] | | | LAB | | [address] | | + + + + + [...] | | | | | | | [id number] SITE: | | | | | | [...] at: | | | | | | [facility] | | | | + + + + + + + + | Specimen | + + | | + + + + + + + | Performing | Address | City/State/Zipcode | Phone Number | | Organization | | | | + + + + + | [facility] | [address] | [place], [place] | | | LAB | | [address] | | + + + + + | [facility] | [address] | [place], [place] | | | LAB | | [address] | | + + + + + [...] | RESULT | QIANA MODI | | [facility] | | | | | [...] | | | | | | | [id number] SITE: | | | | | | [...] [facility] | [address] | [place], [place] | | | LAB | | [address] | | + + + + + | [facility] | [address] | [place], [place] | | | LAB | | [address] | | + + + + + CULTURE, STREP SCREEN (01/11/2017 5:05 AM PDT) + + + + + + | Component | Value | Ref Range | Performed | Pathologist | | | | | At | Signature | + + + + + + | CULTURE | Patient:EITELADRIENNE, | | [facility] | | | RESULT | QIANA LY | | [facility] | | | | | [...] | | | | | | | [phone] SITE: | | | | | | [...] at: | | | | | | [facility] | | | | + + + + + + + + | Specimen | + + | | + + + + + + + | Performing | Address | City/State/Zipcode | Phone Number | | Organization | | | | + + + + + | [facility] | [address] | [place], [place] | | | LAB | | [address] | | + + + + + | [facility] | [address] | [place], [place] | | | LAB | | [address] | | + + + + + [...] | + + + + + | [facility] | [address] | [place], [place] | | | LAB | | [address] | | + + + + + | [facility] | [address] | [place], [place] | | | LAB | | [id number] | | + + + + + CBC WITH DIFFERENTIAL (01/11/2017 5:05 AM PDT) + [...] [facility] | [address] | [place], [place] | | | LAB | | [id number] | | + + + + + | [facility] | [address] | [place], [place] | | | LAB | | [id number] | | + + + + + documented in this encounter Visit Diagnoses + + | Diagnosis | + + | 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
--- OUTSIDE RECORDS SUMMARY | ~2019-11-28 | XMS | Encounter Summary ---
Demographics + + + | Address | [address] | | | [place] [address] | + + + | Home Phone [...] Team Providers + +------+ + | Care Drop Shipment Clerk Name | Role | Phone | + [...] | | Shwetha Mailcode: CH8N | [place], [place] | | | | | [facility] | [address] | | | | | and [facility], | [phone] | | | | | [facility] | | | | | | Floor [place], [place] | | | | | | [address] | | | | | | [phone] | | | +--------+ + + + [...] | | | | [place] [facility] [place] | | | | | | [address] | | | | | | [phone] | | | | | | | | +--------+ + + + + | 12/10/ | Office | Neurological Surgery | April Beck MD | | | 2020 | Visit | | [address] | | | | | | [address] | | | | | | [place], [place] | | | | | | [address] | | | | | | [phone] | | | | | | | | +--------+ + + + + documented as of this encounter Visit Diagnoses Not on filedocumented in this encounter"
--- OUTSIDE RECORDS SUMMARY | ~2019-11-28 | XMS | Encounter Summary ---
Demographics + + + | Address | [address] | | | [place] [address] | + + + | Home Phone [...] Team Providers + +------+ + | Care Parks And Recreation Manager Name | Role | Phone | + +------+ + | Damir Sy MD | PCP | | + +------+ + Encounter Details +--------+ + + + + | Date | Type | Department | Care Team | Description | +--------+ + + + + | 06/04/ | Procedure | Radiology/Imaging | | | | 2017 | Pass | Lab at [facility] [address] | | | | | | [address] Sh[place] Mailcode: | | | | | | [facility] | | | | | | Health and Healing, | | | | | | Building [facility] [facility] | | | | | | Floor [place], [place] | | | | | | [address] | | | | | | [phone] | | | +--------+ + + + [...] | | | | | | [place] [facility] [place] | | | | | | [address] | | | | | | [phone] | | | | | | | | +--------+ + + + + | 12/10/ | Office | Neurological Surgery | April Beck MD | | | 2020 | Visit | | [address] | | | | | | [address] | | | | | | [place], [place] | | | | | | [address] | | | | | | [phone] | | | | | | | | +--------+ + + + + documented as of this encounter Visit Diagnoses Not on filedocumented in this encounter"
--- OUTSIDE RECORDS SUMMARY | ~2019-11-28 | XMS | Encounter Summary ---
Demographics + + + | Address | [address] | | | [place] [address] | + + + | Home Phone [...] Team Providers + +------+ + | Care Obiee Obia Solution Architect Name | Role | Phone | [...] Arndt | | | | | [facility] | Marla Abdul Goodrich, | | | | | Hospital Admitting | [place] [address] | | | | | Desk Located on the | [phone] | | | | | 9th floor | | | | | | [place], [place] | Rosemary Quesada MD | | | | | [address] | [address] | | | | | | [address] | | | | | | [place], [place] | | | | | | [address] | | | | | | [phone] | | | | | | | [...] + + | Urethr | 01/13/17; 1420; aHrry Sy | 01/13/17 1420 by | 01/16/17 [...] | | | | | | [place], [place] | | | | | | [address] | | | | | | [phone] | | | | | | | | +--------+ + + + + | 12/10/ | Office | Neurological Surgery | April Beck MD | | | 2019 | Visit | | [address] | | | | | | [address] | | | | | | [place], [place] | | | | | | [address] | | | | | | [phone] | | | | | | | | +--------+ + + + + documented as of this encounter Procedures + +--------+ + + + | Procedure Name | Priori | Date/Time | Associated Diagnosis | Comments | | | ty | | | | + +--------+ + + + | ORALNDO ETT | Routin | 01/15/2017 | | [...] + + documented in this encounter Results ORLADNO ETT (01/15/2017 6:21 AM PDT) + + [...]
--- OUTSIDE RECORDS SUMMARY | ~2019-11-28 | XMS | Encounter Summary ---
Demographics + + + | Address | [address] | | | [place] [address] | + + + | Home Phone [...] Team Providers + +------+ + | Care Prototype Machine Operator Name | Role | Phone [...] | | | Shwetha Mailcode: | [place], [place] | | | | | [facility] | [address] | | | | | and [place], | [phone] | | | | | [facility] 1 | | | | | | [place], [place] | | | | | | [address] | | | | | | [phone] | | | +--------+ + + + [...] | | | | | | Shw[place], [place] | | | | | | [address] | | | | | | [phone] | | | | | | | | +--------+ + + + + | 12/10/ | Office | Neurological Surgery | April Beck MD | | | 2019 | Visit | | [address] | | | | | | [address] | | | | | | [place], [place] | | | | | | [address] | | | | | | [phone] | | | | | | | [...] | | test was performed | | [facility] | | | | using the APTIMA COMBO2 | | | | | | Assay([employer] 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
--- OUTSIDE RECORDS SUMMARY | ~2019-11-28 | XMS | Encounter Summary ---
Demographics + + + | Address | [address] | | | [place] [address] | + + + | Home Phone [...] Providers + +------+ + | Care Plastic Boat Patcher Name | Role | Phone | + [...] | | | | | PHYSICAL | [facility] [place] | [facility] | | | | | THERAPY | [address] | for Health | | | | | REFERRAL | Phone: | and Healing, | | | | | | [phone] | Building 1, | | | | | | Fax: | [address] Floor | | | | | | [phone] | [place], [place] | | | | | | | [address] | | | | | | | Phone: | | | | | | | [phone] | | | | | | | Fax: | | | | | | | [phone] | +--------+--------+ + + + + Encounter Details +--------+---------+ + + + | Date | Type | Department | Care Team | Description | +--------+---------+ + + + | 10/19/ | Office | [facility] | Myrna Castelan, | Spinal cord tumor | | 2016 | Visit | Therapy Services at | DPT | (Primary Dx) | | | | [facility] | | | | | | [address] | | | | | | Mailcode: [facility] | | | | | | [facility] | | | | | | and Healing, | | | | | | Building [address] | | | | | | Floor [place], [place] | | | | | | [address] | | | | | | [phone] | | | +--------+---------+ + + + [...] Diagnosis/ICD-9: D49.7 Spinal cord tumor 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 female who has been referred to Outpatient Physical Therapy services due to concerns regarding: balance problems, weaknes s, fatigue and decreased mobility. Matt presents to outpatient physical therapy following most recent admission to [facility] following tumor expansion resulting in surgery on [...] female who was most recently discharged from [facility] following t umor expansion and T6-10 hemilaminectomies [...] physical therapy when she relocat to the [facility]. Impairments are limiting pt's ability to participate in basic ADLs, work, and recreational activities without restrictions. Matt requires services that can be safely and effectivel y performed only by a qualified therapist to address the above mentioned impairments and act ivity limitation. Functional Goals: Date established Patient will perform >20 reps of sit to instructional design specialist 30 seconds to demonstrate improved functio [...] status. Myrna Castelan DPT [facility] AT [facility] 1ST FLOOR [address] [place]weth[place] Mailcode: [address] [address] Payment Authorization Request and Status Report: [facility] Outpatient Therapy Center Contact Contact Billing Provider Number: [id number] Therapist Provider Number: [id number] Referring Prescribing Practitioner: Raegan Doss PA-C Primary Diagnosis/ICD-9: ICD-10-CM ICD-9-CM 1. Spinal cord tumor D49.7 239.7 LA PHYS THERAPY EVALUATION LA GAIT TRAINING THERAPY Prescribing Practitioner Provider Number: [facility] Physician [id number]. Outside [facility] Physician: _ Proposed PA Start Date: Date PA is approved. Procedure Codes: Physical Therapy Evaluation 53742 Therapeutic Exercise 52444 Therapeutic Activities 81020 Gait Training 36324 Neuromuscular Reeducation 08967 Modalities Codes: None Minutes per session: 45 [...] | | | | | | [place], [place] | | | | | | [address] | | | | | | [phone] | | | | | | | | +--------+ + + + + | 12/10/ | Office | Neurological Surgery | April Beck MD | | | 2019 | Visit | | [address] | | | | | | [address] | | | | | | [place], [place] | | | | | | [address] | | | | | | [phone] | | | | | | | | +--------+ + + + + documented as of this encounter Procedures + +--------+ + + + | Procedure Name | Priori | Date/Time | Associated Diagnosis | Comments | | | ty | | | | + +--------+ + + + | LA GAIT TRAINING | Routin | 10/20/2015 | Spinal cord tumor | | | THERAPY | e | 4:06 PM | | | | | | PDT | | | + +--------+ + + + | LA PHYS THERAPY | Routin | 10/20/2015 | [...]
--- OUTSIDE RECORDS SUMMARY | ~2019-11-28 | XMS | Encounter Summary ---
Demographics + + + | Address | [address] | | | [place] [address] | + + + | Home Phone [...] Providers + +------+ + | Care Supervisor [place] Name | Role | Phone | + [...] THORACIC | | 2019 | | [facility] | [address] | LAMINECTOMY AND | | | | [place]o [facility] Main | [place], [place] | resection of | | | | Hospital Admitting | [address] | intradural spinal | | | | Desk Located on the | [phone] | tumor | | | | 9th floor | | | | | | [place], [place] | | | | | | [address] | | | +--------+---------+ + + + [...] MD PCP: PATRIC Flores Service: [facility] Neurosurgery Diagnoses Principal Final Diagnosis: Progressive thoracic [...] on the 1 2th floor at the [facility] & [facility] on the [facility] located at [address] [place] [address]. Please call [phone] if you have any questions or concerns [...] (10/05/18 1244) Discharge Patient To: Interhospital Transfer [facility] Does patient have a planned readmission: No Discharge Summary Completed?: Yes. 10/08/2018 Discharging Provider: RAEGAN DOSS PA-C Date Completed: 10/08/2018 Time Completed: 10:36 AM Discharging Attending: Rajinder Luis MD [facility] [address] [place] [address] documented in this encounter Medications at Time [...] accepted, hopeful for today. RAEGAN DOSS PA-C [facility] [address] [place] [address] dams, PHILIPPE Mena - 10/07/2018 8:33 AM [...] in bed, on ppx lovenox. Dispo: To [facility] once accepted. RAEGAN DOSS PA-C [facility] [address] [place] [address] Daniel Arechiga MD - 10/06/2018 11:06 AM [...] WORRELL Routine Cultures PROCEDURE: Strep Screen Culture [[id number]: 11/05/2017 16:4 4 PDT P1] SOURCE: Throat STARTED: 11/05/2017 20:3 9 PDT FREE TEXT SOURCE: BODY SITE: FINAL REPORTS Final Report [] Verified Date/Time: 11/07/2017 11:07 PDT No beta Strep isolated. Order Comments O1: Strep Screen Culture (CULTURE THROAT STREP SCREEN - [facility] - Ordering-Phys: CLARE GIOVANNA GRAVES) Location: [facility] Performing Locations P1: This test was performed at: [facility] Lab Lab Results Component Value Date [...] Please contact the neurosurgery blackburn on-call pager [phone] with questions. Daniel Barahona M.D. Neurosurgery PGY-1 lif Mcclain PA - 10/05/2018 11:02 AM PDT NEUROSURGERY [...] for IPR Elif Mcclain PA-C [facility] [address] [place] [address] ong, DAMON Kim - 10/04/2018 8:39 AM [...] noted deficits below Delt Tri Bi WE Set Up Mechanic HF KE APF ADF Left 5 5 [...] SPINE THOR / LUMB WWO CONTRAST Order: [id number] Performed: 10/01/2018 17:52 Status: Final result Visible [...] clinical course Julio Wahl PA-C [facility] [address] [place] [address] Carrol Dave MD,P hD - 10/03/2018 10:00 PM [...] CARROL REYES MD,PhD Resident Neurological Surgery Pgr. [id number] dams, Raegan Nieves PA-C - 10/03/2018 8:21 AM PDT [...] Dispo: To [place] today. RAEGAN DOSS PA-C [facility] [address] [place] [address] Rajinder Antony MD - 10/02/2018 7:51 PM PDTDiscussion held with patient and family and PA bedside. 1. MRI with right sided hypointensity with fluid cyst surround 2. Plan for repeat surgery at the lower thoracic region for resection and decomopression o f tumor and cord displacement. 3. Potential loss of right lower extremity function. 4. For OR tomorrow. Bo Chris beauchamp MD - 10/02/2018 3:23 PM [...] surgery? No Chris Cano MD Neurosurgery PGY2 41753 Julio Rendon PA-C - 10/02/2018 8:22 AM [...] Intake/Output Summary (Last 24 hours) at 10/02/18 08 Last data filed at 10/01/18 2359 Gross [...] noted deficits below Delt Tri Bi WE Set Up Mechanic HF KE APF ADF Left 5 5 [...] SPINE THOR / LUMB WWO CONTRAST Order: [id number] Performed: 10/01/2018 17:52 Status: Final result Visible [...] pending surgery Julio Wahl PA-C [facility] [address] [place] [address] documented in this enc ounter Plan of [...] | | | | | | [place], [place] | | | | | | [address] | | | | | | [phone] | | | | | | | | +--------+ + + + + | 12/10/ | Office | Neurological Surgery | April Beck MD | | | 2019 | Visit | | [address] | | | | | | [address] | | | | | | [place], [place] | | | | | | [address] | | | | | | [phone] | | | | | | | [...] Attending | | Surgeon: Rajinder Luis MD Stock Control Supervisor(s): Joby Thibodeaux MD. | | Preoperative [...] the operating room on a | | [facility]. General endotracheal anesthesia was induced by the Anesthesia team | | without complication. The neuromonitoring team placed the necessary electrodes for | | monitoring of somatosensory evoked potentials and motor evoked potentials. The patient | | was then placed in a prone position on a [place] table. All pressure points | | were [...] and | | interpreted in real time intraoperatively.LEILA Henry/CESARD: 10/03/2018 | | 19:49:32DT: 10/03/2018 20:24:12Job #: [id number] | + + X-RAY SPINE THORACIC 1 [...] MARQUAM | [address] | [place], [place] | | | ZELALEM HERRERA OF NURIA | [address] | [address] | | | TESTS | | | [...] prior | | | | | | [id number], low grade | | | | | [...] resection | | | | | | ([id number]), with | | | | | | [...] | | | | | | y, [facility] | | | | | | [facility] | | | | | [...] number | | | | | | [id number].A. Spine, | | | | | | [...] | | | | | determined by [facility] | | | | | | laboratories. [...] + + + + | [facility] | [address] | [place] [address] | | | PATHOLOGY | [address] | | | + + + + + INTRAOPERATIVE NEURO MONITORING (10/03/2018) + + + | Narrative | Performed At | + + + | Patient Name: Qiana Worrell Date of : 1990 | | | Date of Test: 10/03/2018 Place of | | | Service: IP Intra Op [phone] [id number] INTRAOPERATIVE NEURO | | | MONITORING IOM: [...] | | | Norma Jordan MD, MA, [facility] Hydraulic Jack Mechanic of Neurology | | | Suggested CPT: G0453 - IOM Continuous divided attention to single | | | patient x 10 @ 15 min(s[place] [address] - Short Latency EP's | | | Upper AND Lower extremities 50887 - Central Motor EP's Upper AND | [...] LABORATORY | [address] | [place] [address] | | | SERVICES, | [address] [...] | + + + + + | [facility] | [address] | [place] [address] | | | SERVICES, | [address] [...] | + + + + + | [facility] | [address] | [place] [address] | | | SERVICES, | JEAN [address]LOS [...] + + + + | [facility] | [address] | [place] [address] | | | SERVICES, NINO | JEAN [...] mech. valves (2.5 - 3.5) INR | HORACIO CORE | + + + + + + + + | Performing | Address | City/State/Zipcode | Phone Number | | Organization | | | | + + + + + | [facility] | [address] | [place] [address] | | | SERVICES, CORE | JEAN [...] | | | LABORATORY | | | [place] | | | SERVICES, | | | [...] | + + + + + | [facility] | [address] | [place] [address] | | | SERVICES, CORE | PARK [...] LABORATORY | [address] | [place] [address] | | | SERVICES, CORE | [address] | | | + + + + + ED INFORMATION EXCHANGE (10/01/2018 12:03 PM PDT) + + | Specimen | + + | | + + + + + | Narrative | Performed At | + + + | [id number] [id number] Criteria Met Has | COLLECTIVE | | Guidelines PDMP Security and Safety No recent Security Events | MEDICAL | | currently on file ED Care Guidelines from [facility] and | [employer] | | [facility] Last Updated: 02/08/17 11:[address] [facility] | | | Emergency DepartmentSuggested Care RecommendationsAuthor: Cecily Najera, | | | [facility] NETWORKWAuthor Litmnv Update: | | | 02/08/2017Medical:- Thoracic intramedullary [...] provider/clinic: Dr. Clare Chowdary, | | | [facility], - Neurosurgery: [facility], | | | Rajinder Luis MD and PHILIPPE Mckeon - [phone]-Insurance care | | | coordinator: [place] [phone]-Housing: living [facility] | | | mother Judit [...] E.D. Visit Count (12 mo.) Facility Visits [facility] | | | [facility] [address] [facility] 1 Total 2 Note: | | | Visits indicate total known visits. Recent Emergency Department | | | Visit Summary Date Facility City State Type Diagnoses or Chief | | | Complaint Oct 01, 2018 [facility] [place] | | | [place] Emergency 10,800. MRI Jul 06, 2018 [facility]. | | | [place] Emergency [...] Jul 12, | | | 2019 [facility] [place] Inpatient Rehab Spinal | [...] | | | unspecified Jul 06, 2018 [facility] | | | [place] Neuro Surgery 10,151. 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, soft tissue, and | | | skin Care Providers Provider PRC Type Phone Fax Service | | | Dates MARBIN CHAPIN, DIGITAL CARTOGRAPHER-BC Nurse Practitioner: Family Current | | | MADHAVI MONTANEZ LCSW Cobbler Upper: Clinical ([phone] | | | [phone] Current CORNELIO VILLASENOR ND Cub Reporter ([phone]) | | | [phone] Current [employer] Portal This patient | | | has registered at the [facility] | | | Emergency Department For more information visit: | | | [email or web address] | | | [email or web address] [facility] PLEASE NOTE: 1. Any care recommendations and [...] | or completeness of information provided. 2019 [employer] | | | [employer]. - [email or web address] | | + + + + + | Procedure Note | + + | Service Account, Rtf Results Inbound - 10/01/2018 12:04 PM PDT Formatting of this | | note might be different from the original.COLLECTIVE?NOTIFICATION?10/01/2018 | | 12:01?QIANA WORRELL? [facility] Guidelines PDMPSecurity and | | SafetyNo recent Security Events currently on fileED Care Guidelines from [facility] | | and Science [facility] Updated: 02/08/17 11:[address] [facility] Emergency DepartmentSuggested | | Care RecommendationsAuthor: NEELIMA ChavezMassena Memorial Hospitalstephanie Retcul | | Update: 02/08/2017Medical:- Thoracic intramedullary spinal [...] provider/clinic: Dr. Sparks | | Karma Chowdary, [facility], - Neurosurgery: Rajinder QURESHI | | MD Toby and PHILIPPE Mckeon - [phone]-Insurance urgent care: Estelita | | [phone]-Housing: living in [facility] with mother Judit and 4 y/o [...] 0 E.D. Visit Count (12 mo.)Facility Visits [facility] | and [facility] [address] [facility] 1 Total 2 Note: Visits indicate total | | known visits. Recent Emergency Department Visit SummaryDate Facility [facility] State Type | | Diagnoses or Chief Complaint Oct 01, 2018 [facility] [place] | | Emergency 10,800. MRI Jul 06, 2018 [facility] 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 Inpatient Rehab | | [...] dysfunction of bladder, unspecified Jul 06, 2018 [facility] | | [place] Neuro Surgery 10,151. Thoracic Spine Tumor 18,400. Neoplasm of | | unspecified behavior of bone, soft tissue, and skin Care ProvidersProvider PRC Type | | Phone Fax Service Dates MARBIN CHAPIN, DIGITAL CARTOGRAPHER-BC Nurse Practitioner: Family Current | | MADHAVI MONTANEZ LCSW Cobbler Upper: Clinical Current [facility], | | CORNELIO Bates ND Cub Reporter Current [employer] PortalThis | | patient has registered at the [facility] Emergency Department | | For more information visit: | | [email or web address] andnbsp | | PLEASE NOTE: 1. Any [...] completeness of information | | provided.? 2019 [employer]. - [email or web address] | |Oct 01, 2018 [facility] [place] Emergency | | 10,800. MRI | | | |Jul 06, [address] [facility] [place] [place] Emergency | | 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in | | Anesthesia of skin | | Allergy status to sulfonamides status | | Other keno terminal operator (current) drug therapy | | Brown-Sequard syndrome | | | | | | | |Recent Inpatient Visit Summary | |Date Facility [facility] State Type Diagnoses or Chief Complaint | |Jul 12, 2018 [facility] [place] Inpatient Rehab | | Spinal Tumor [...] unspecified | | | |Jul 06, 2018 [facility] [place] Neuro Surgery | | 10,151. Thoracic Spine Tumor | | 18,400. 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in | | | | | | | |Care Providers | |Provider PRC Type Phone Fax Service Dates | |MARBIN CHAPIN, PATRIC-MAREK Nurse Practitioner: Family Current | |MADHAVI MONTANEZ LCSW Cobbler Upper: Clinical Current | |CORNELIO VILLASENOR , CESARIO Cub Reporter Current | | | |[employer] Portal | |This patient has registered at the [facility] Emergency Departmen t | |For more information visit: [email or web address] | |andnbsp PLEASE NOTE: | | 1. [...] information provided. | | | |? 2019 [employer]. - [email or web address] | + + + + + + + | Performing | Address | City/[facility]/Zipcode | Phone Number | | Organization | | | | + + + + + | [facility] | [address] | [place], [place] | [phone] | | TECHNOLOGIES | [address] | [address] | | + + + + + [...] 2 mg 2 mg, oral, TWICE DAILY, 4 | | 19 9:13 | | | [...]
--- OUTSIDE RECORDS SUMMARY | ~2019-11-28 | XMS | Encounter Summary ---
Demographics + + + | Address | [address] | | | [place] [address] | + + + | Home Phone [...] Team Providers + +------+ + | Care Pharmacy Technician Assistant Name | Role | Phone | + +------+ + | Prinecss Franks MD | PCP | | + [...] [address] | | | | | [place], [place] | [place], | | | | | [address] | [place] [address] | | | | | | [phone] | | | | | | | [...] | | | | | [place], [place] | | | | | | [address] | | | | | | [phone] | | | | | | | | +--------+ + + + + | 12/10/ | Office | Neurological Surgery | April Beck MD | | | 2020 | Visit | | [address] | | | | | | [address] | | | | | | [place], [place] | | | | | | [address] | | | | | | [phone] | | | | | | | [...] | RESULT | QIANA MODI | | [facility] | | | | | | | | | | | | | | | | | | | | | | | | | | | | Routine Cultures | | | | | | PROCEDURE: | | | | | | Strep Screen | | | | | | Culture [[id number]: | | | | | | | [...] | | | | | | | [id number] SITE: | | | | | | [...] at: | | | | | | [facility] | | | | + + + + + + + + | Specimen | + + | | + + + + + + + | Performing | Address | City/State/Zipcode | Phone Number | | Organization | | | | + + + + + | [facility] | [address] | [place], [place] | | | LAB | | [address] | | + + + + + [...] | | | | | | | [phone] SITE: | | | | | | [...] at: | | | | | | [facility] | | | | + + + + + + + + | Specimen | + + | | + + + + + + + | Performing | Address | City/State/Zipcode | Phone Number | | Organization | | | | + + + + + | [facility] | [address] | [place], [place] | | | LAB | | [address] | | + + + + + [...] [facility] | [address] | [place], [place] | | | LAB | | [address] | | + + + + + [...] | [facility] | | | | [facility], | | | | | | | | | | | | [address], | | | | | | [place] [address] | | | | | | [phone] | | | | | | | | | | | | www.[employer] [place] | | | | | | [...] [place] | | | LAB | | [address] | | + + + + + [...] B: | | | | | | [employer]/CSINTERPRETI | | | | | | VE [...] by | | | | | | Internet college internation [employer] | | | | | | | | | | | | [address] | | | | | | [place] [address] | | | | | | [phone] | | | | | | | | | | | | www[facility] | | | | | | MD [...] [place] | | | LAB | | [address] | | + + + + + documented in this encounter Visit Diagnoses Not on filedocumented in this encounter"
--- OUTSIDE RECORDS SUMMARY | ~2019-11-28 | XMS | Encounter Summary ---
Demographics + + + | Address | [address] | | | [place] [address] | + + + | Home Phone [...] Team Providers + +------+ + | Care Dry Color Tester Name | Role | Phone [...] + + | 05/07/ | Hospital | [facility] [address] | Christine Gilbert MD | | | 2014 - | Encounter | [facility] | [address] | | | | | [id number] [facility] | [place] [address] | | | 05/08/ | | [facility] [place], | [phone] | | | 2014 | | [place] [address] | | | | | | [phone] | Rajinder Luis MD | | | | | | [address] | | | | | | [place], [place] | | | | | | [address] | | | | | | [phone] | | | | | | | [...] Rajinder Luis MD PCP: PATRIC Todd Service: [facility] Neurosurgery Diagnoses Principal Final Diagnosis: Tumor of [...] Instructions/Tests: Please call the Neurosurgery clinic at [phone] with any questions Sunday to Sunday 8 A M - 4 PM. After hours, call [facility] at [phone] and ask to speak with the Neurosurgery resi dent cost controller if you have any of the following: [...] RLE symptoms for 1.5 years, referred to [facility] ER by Dr Garrison at [place] for MRI finding of intramedullary th oracic [...] RLE symptoms for 1.5 years, referred to [facility] ER by Dr Garrison at [place] for MRI finding of intramedullary th oracic [...] Luis next week. Signed: Chirag Thorne MD, vice chairman Neurological Surgery [facility] [place] Pager: [phone] ay Still MD - 05/08/2015 5:31 PM [...] Jay Still MD PGY-2 Neurological Surgery Pager [phone] documented in this enco unter Plan of [...] [place] | | | | | | [address] | | | | | | [phone] | | | | | | | | +--------+ + + + + | 12/10/ | Office | Neurological Surgery | April Beck MD | | 2019 | Visit | | [address] | | | | | | [address] | | | | | | [place], [place] | | | | | | [address] | | | | | | [phone] | | | | | | | [...] | | | | | T2 and T0rncpwbegb body | | | | | | [...] | + + + + + | [facility] | [address] | [place] [address] | | | SERVICES, CORE | JEAN [...] | + + + + + | [facility] | [address] | [place] [address] | | | SERVICES, CORE | [address] [...] | | | LABORATORY | | | CHILEAN | | | SERVICES, | | | [...] LABORATORY | [address] | [place] [address] | | | SERVICES, CORE | [address] | | | + + + + + PRODUCT - PLATELET PHERESIS LEUKOREDUCED (05/08/2015 2:08 AM PDT) + + + + + + | Component | Value | Ref Range | Performed | Pathologist | | | | | At | Signature | + + + + + + | PRODUCT | [id number] | | [facility] | | | DESCRIPTION | | | DEPARTMENT | | | | | | OF | | | | | | PATHOLOGY | | + + + + + + | PRODUCT | [id number] | | [facility] | | | UNIT [...] + + + + | EXPIRATION | [id number] | | [facility] | | | DATE [...] + + + + | BLOOD | [id number] | | [facility] | | | PRODUCT [...] | + + + + + | [facility] DEPARTMENT OF | [address] | [place] [address] | | | PATHOLOGY | [address] [...] | + + + + + | [facility] | [address] | [place] [address] | | | SERVICES, CORE | JEAN [...] | [address] | [place] [address] | | | SERVICES, | [address] [...] | + + + + + | [facility] | [address] | [place] [address] | | | SERVICES, | [address] [...] | + + + + + | [facility] | [address] | [place] [address] | | | NINO LEONARD | JEAN [...] | + + + + + | [facility] | [address] | [place] [address] | | | NINO LEONARD | JEAN [...] | | | LABORATORY | | | CHILEAN | | | SERVICES, | | | [...] | + + + + + | [facility] | [address] | [place] [address] | | | SERVICES, CORE | JEAN [...]
--- OUTSIDE RECORDS SUMMARY | ~2019-11-28 | XMS | Encounter Summary ---
Demographics + + + | Address | [address] | | | [place] [address] | + + + | Home Phone [...] Team Providers + +------+ + | Care District Service Manager Name | Role | Phone | [...] | | | | Rd [facility] | [place], [place] | | | | | | [facility] | [address] | | | | | | [place], [place] | Phone: | | | | | | [address] | [phone] | | | | | | Phone: | Fax: | | | | | | [phone] | [phone] | +--------+--------+ + + + + Encounter Details +--------+---------+ + + + | Date | Type | Department | Care Team | Description | +--------+---------+ + + + | 11/07/ | Office | Neurosurgery at | Raegan Doss, | Spinal cord tumor | | 2016 | Visit | [facility] | PA-C [address] | (Primary Dx) | | | | and Healing [address] [place], [place] | | | | | [address] Mailcode: | [address] | | | | | [facility] | [phone] | | | | | Health and Healing, | | | | | | [facility] | | | | | | Floor [place], [place] | | | | | | [address] | | | | | | [phone] | | | +--------+---------+ + + + [...] today to discuss her recent move to [place] and medica tion coverage. She moved in 1 week ago with her boyfriend's family and would like to establi sh with a local PCP. She has not seen her PCP, Tiff SPIVEY, since discharging from [facility] recently and is unsure of who can [...] like to start PT session s at [facility]. Ht 1.6 m (5' 3"), [...] strength post-op. Patient has now moved to [place] and wishes t o establish PCP care locally. Plan: -The patient will call her PCP, PATRIC Becerra, and ask if she will be willing to contin ue writing prescriptions for her while she looks for a PCP in the [facility] area. -The patient will actively look for a PCP locally. -The patient will call [facility] PT to schedule follow up [...] patient will contact me PRN NEUROSURGERY AT [facility] [address] Mailcode: [facility] [place] [address] documented in this encounter Plan [...] | | | | | | [place], [place] | | | | | | [address] | | | | | | [phone] | | | | | | | | +--------+ + + + + | 12/10/ | Office | Neurological Surgery | April Beck MD | | | 2019 | Visit | | [address] | | | | | | [address] | | | | | | [place], [place] | | | | | | [address] | | | | | | [phone] | | | | | | | | +--------+ + + + + documented as of this encounter Visit Diagnoses + + | Diagnosis | + + | 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
--- OUTSIDE RECORDS SUMMARY | ~2019-11-28 | XMS | Encounter Summary ---
Demographics + + + | Address | [address] | | | [place] [address] | + + + | Home Phone [...] Team Providers + +------+ + | Care Tax Clerk Name | Role | Phone | [...] | Procedures | [address] | Rd [place] | | | | | MRI SPINE | [place], [place] | Research | | | | | LUMBAR WWO | [address] | Center | | | | | CONTRAST [place] | Phone: | [place], [place] | | | | | MRI, LUMBAR | [phone] | [address] | | | | | SPINE COMBO | Fax: | Phone: | | | | | | [phone] | [phone] | | | | | | | Fax: | | | | | | | [phone] | +--------+--------+ + + + + Reason [...] [address] | | | | | [place] EST | [facility] | [place], [place] | | | | | PATIENT | Rd | [address] | | | | | LEVEL V | [place], [place] | Phone: | | | | | | [address] | [phone] | | | | | | | Fax: | | | | | | | [phone] | +--------+--------+ + + + + Encounter [...] | | | Ave Mailcode: | Ave [place], [place] | | | | | [facility] | [address] | | | | | natacha [place], | [phone] | | | | | [address] [address] | | | | | | [place], [place] | | | | | | [address] | | | | | | [phone] | | | +--------+---------+ + + + [...] intramedullary low grade glioneuronal spinal cord [facility], the most recent surgery being on 01/13/17. [...] imaging but this was never received by [facility]. She has recently decided to move to [place] where her boyfriend lives. Ht 1.6 m [...] wwo in 1 year [facility] [address] [place] [address] documented in this encounter Plan [...] | | | | | | [place], [place] | | | | | | [address] | | | | | | [phone] | | | | | | | | +--------+ + + + + | 12/10/ | Office | Neurological Surgery | April Beck MD | | | 2019 | Visit | | [address] | | | | | | [address] | | | | | | [place], [place] | | | | | | [address] | | | | | | [phone] | | | | | | | [...]
--- OUTSIDE RECORDS SUMMARY | ~2019-11-28 | XMS | Clinical Summary ---
Demographics + + + | Address | [address] | | | [place] [address] | + + + | Home Phone [...] Team Providers + +------+ + | Care Promotions Specialist Name | Role | Phone | + +------+ + | Damir Sy MD | PCP | | + +------+ + Source Comments MOISE is fully live on both EpicCare Ambulatory and EpicCare InPatient.[facility] Allergies + + + + + + [...] | | vasopressors-Continue Decadron: 3 day rapid phzwf-Jwwj-nk abx | | per Neurosurgery-HOB flat since [...] neurosurgery.-No | | steroids. -postop abx; Ancef s6r-RLX <160 with MAP>65 for | | adequate [...] Due | + + + + | NWM-Uzx-ObgM | 11/06/1999, 04/07/1999, 01/05/1995, | | | [...] | | | | | | [place], [place] | | | | | | [address] | | | | | | [phone] | | | | | | | | +--------+ + + + + | 12/10/ | Office | Neurological Surgery | April Beck MD | | | 2020 | Visit | | [address] | | | | | | [address] | | | | | | [place], [place] | | | | | | [address] | | | | | | [phone] | | | | | | | [...] | | | [employer] | | | 565909 | | [id number]: Qty: 1 on | | | LIFESCIENCE | | | / | | 05/13/2015 by Rajinder Luis | | | S | | | /[id number] | | MD Phillip at [facility] INPATIENT REV | | | | | | 25X | | LOC | | | | | | | + +------+--------+ +--------+--------+--------+ | Sealant Duraseal Low Swell - | | Midlin | [employer] | | 06/07/ | [id number] | | [id number]: Qty: 1 on | | e: | LIFESCIENCE | | 2016 | / | | 03/22/2016 by Rajinder Luis | | Spine | S | | | /[id number] | | MD Phillip at [facility] INPATIENT REV | | | | | | 59X | | LOC | | | | | | | + +------+--------+ +--------+--------+--------+ | Sealant Hemostatic Floseal | | N/A: | ALYSSA | | 05/25/ | [id number] | | Matrix Needle Free Adapter | | Spine | HEALTHCARE | | 2017 | 0 / | | 5ml - [id number]: | | | | | | /[id number] | | Qty: 1 on 01/13/2017 by | | | | | | 523 | | Rajinder Luis MD at [facility] | | | | | | | | INPATIENT REV LOC | | | | | | | + +------+--------+ +--------+--------+--------+ | [employer]al[employer] Hemostatic Floseal | | N/A: | ALYSSA | | / | [id number] | | Matrix Needle Free Adapter | | Spine | HEALTHCARE | | 2019 | 8 / | | 5ml - [id number]: | | | | | | /[id number] | | Qty: 1 on 07/08/2018 by | | | | | | 187 | | Rajinder Luis MD at [facility] | | | | | | | | INPATIENT REV LOC | | | | | | | + +------+--------+ +--------+--------+--------+ + + | Description:Given to surgical | | field | + + + +---+--------+ +---+--------+--------+ | Sealant Hemostatic Floseal | | Midlin | SHAH | | 12/06/ | [id number] | | Matrix Needle Free Adapter | | e: | HEALTHCARE | | 2020 | 8 / | | 5ml - [id number]: | | Spine | | | | /[id number] | | Qty: 1 on 10/03/2018 by | | | | | | 262 | | Rajinder Luis MD at [facility] | | | | | | | [...] | | | | all | | [address] | | | | | | dates [...] | | | | | | | [address] | | + +--------+ +--------+ + +--------+ | MEDICAID [place] | MCAID | xxxxxxxx | 10/08/19 | [phone] | [address] Medica | | | QMM | | 19-Pre | 6 | [address] | id | | | QMB | | sent | | [place], [place] | | | | | | | | [address] | | + +--------+ +--------+ + +--------+ [...] mehul | | | 6 (Home) | [address] | + +--------+ +--------+ + + | Matt Fagan | Person | Self | [birth year] | | [address] | | | al/Fam | | 1991 | [phone] | [address] [place] | | | mehul | | | 6 ([place]) | [address] | + +--------+ +--------+ + + Advance [...]
--- OUTSIDE RECORDS SUMMARY | ~2019-11-28 | XMS | Encounter Summary ---
Demographics + + + | Address | [address] | | | [place] [address] | + + + | Home Phone [...] Team Providers + +------+ + | Care Auto Headlight Mechanic Name | Role | Phone | + +------+ + | Damir Sy MD | PCP | | + +------+ + Encounter Details +--------+ + + + + | Date | Type | Department | Care Team | Description | +--------+ + + + + | 07/07/ | Procedure | Diagnostic Imaging | | | | 2017 | Pass | Services at [facility] | | | | | | [address] | | | | | | [address] | | | | | | [facility] | | | | | | [place], [place] | | | | | | [address] | | | | | | [phone] | | | +--------+ + + + [...] | | | | | | [place], [place] | | | | | | [address] | | | | | | [phone] | | | | | | | | +--------+ + + + + | 12/10/ | Office | Neurological Surgery | April Beck MD | | | 2019 | Visit | | [address] | | | | | | [address] | | | | | | [place], [place] | | | | | | [address] | | | | | | [phone] | | | | | | | | +--------+ + + + + documented as of this encounter Visit Diagnoses Not on filedocumented in this encounter"
--- OUTSIDE RECORDS SUMMARY | ~2019-11-28 | XMS | Encounter Summary ---
Demographics + + + | Address | [address] | | | [place] [address] | + + + | Home Phone [...] Team Providers + +------+ + | Care Process Engineering Technician Name | Role | Phone [...] | | | | | | Rd [facility] | | | | | | Hospital Admitting | | | | | | Desk Located on the | | | | | | 9th floor | | | | | | [place], [place] | | | | | | [address] | | | +--------+ + + + [...] | | | | | | [place], [place] | | | | | | [address] | | | | | | [phone] | | | | | | | | +--------+ + + + + | 12/10/ | Office | Neurological Surgery | April Beck MD | | | 2019 | Visit | | [address] | | | | | | [address] | | | | | | [facility] [place] | | | | | | [address] | | | | | | [phone] | | | | | | | | +--------+ + + + + documented as of this encounter Visit Diagnoses Not on filedocumented in this encounter"
--- OUTSIDE RECORDS SUMMARY | ~2019-11-28 | XMS | Encounter Summary ---
Demographics + + + | Address | [address] | | | [place] [address] | + + + | Home Phone | | + + + | Preferred Language | Unknown | + + + | Marital Status | Unknown | + + + | Cheondoism Affiliation | Unknown | + + + | Race | Unknown | + + + | Ethnic Group | Unknown | + + + Author + + + | Author | [facility] | | | and [place] | + + + | Organization | [facility] | | | and [...] [place], [place] | | | | | [address] | | + + + + + Care Team Providers + +------+ + | Care Marine Engineer Name | Role | Phone | [...] [place] | | | | | | [address] | | | | | | [phone] | | | +--------+ + + + [...] T?MRN: | | | | | | [id number] | | | [id number] | | | D Care | | | | | | Guidel | | | calos | | | from | | | [place] | | | | | | Health [...] | | | lo, | | | [place] | | | ia | | | [...] | | | 2017 | | | [place] | | | | | | Health [...] H. | | | | | | [place]. | | | [place] | | | [...] | | | 2017 | | | [place] | | | | | | Health [...] Visits | | | | | | [place] | | | | | | Health [...]
--- OUTSIDE RECORDS SUMMARY | ~2019-11-28 | XMS | Encounter Summary ---
Demographics + + + | Address | [address] | | | [place] [address] | + + + | Home Phone [...] | | + + +---------+ + | uJdit Fagan | ECON | Unknown | | + + +---------+ + Care Team Providers + +------+ + | Care Retail Salesworker Name | Role | Phone | + [...] | | | | Franko [facility] | [address] | | | | | Hospital Admitting | [place], [place] | | | | | Desk Located on the | [address] | | | | | 9th floor | [phone] | | | | | [place], [place] | | | | | | [address] | | | +--------+ + + + [...] Cuffed; 10/03/18; 1901 | MD Lizette | BUNDLE HELPER | +--------+ + + + | Urethr [...] | | 2019 | | | [facility] [address] | | | | | | [place] [facility] [place] | | | | | | [address] | | | | | | [phone] | | | | | | | | +--------+ + + + + | 12/10/ | Office | Neurological Surgery | April Beck MD | | | 2019 | Visit | | [address] | | | | | | [address] | | | | | | [place], [place] | | | | | | [address] | | | | | | [phone] | | | | | | | | +--------+ + + + + documented as of this encounter Procedures + +--------+ + + + | Procedure Name | Priori | Date/Time | Associated Diagnosis | Comments | | | ty | | | | + +--------+ + + + | ANE ETT | Routin | 10/03/2018 | | Results for this | | | e | 3:33 PM | | procedure are in the | | | | PDT | | results section. | + +--------+ + + + documented in this encounter Results ANE ETT (10/03/2018 3:33 PM PDT) + + [...] PDT | | | | | Until [facility] 10/03/18 at 2058 | | | | [...] | | | | | PRN, Starting Miriam 10/03/18 at | | PM PDT | | | | | 1830, Until Miriam 10/03/18 at 1904 | | [...] | | | | CONTINUOUS PRN, Starting Mriiam | | PM PDT | | | [...]
--- OUTSIDE RECORDS SUMMARY | ~2019-11-28 | XMS | Encounter Summary ---
Demographics + + + | Address | [address] | | | [place] [address] | + + + | Home Phone [...] Author + + + | Author | [facility] | + + + | Organization | [facility] | + + + | [...] Providers + +------+ + | Care Machine Riveter Name | Role | Phone | + [...] Center [facility]o | | | | | [place], [place] | [place] | | | | | [address] | [address] | | | | | [phone] | | | +--------+ + + + [...] | | 2019 | | | [address] [address] | | | | | | [place], [place] | | | | | | [address] | | | | | | [phone] | | | | | | | | +--------+ + + + + | 12/10/ | Office | Neurological Surgery | April Beck MD | | | 2020 | Visit | | [address] | | | | | | [address] | | | | | | [place] | | | | | | [address] | | | | | | [phone] | | | | | | | | +--------+ + + + + documented as of this encounter Visit Diagnoses Not on filedocumented in this encounter"
--- OUTSIDE RECORDS SUMMARY | ~2019-11-28 | XMS | Encounter Summary ---
Demographics + + + | Address | [address] | | | [place] [address] | + + + | Home Phone [...] Team Providers + +------+ + | Care Otr Flatbed Company Truck Driver Name | Role | Phone | + +------+ + | Damir Sy MD | PCP | | + +------+ + Encounter Details +--------+ + + + + | Date | Type | Department | Care Team | Description | +--------+ + + + + | 02/14/ | Procedure | Radiology/Imaging | | | | 2017 | Pass | Lab at [facility] [address] | | | | | | [address] Mailcode: | | | | | | [facility] | | | | | | Health and Healing, | | | | | | Building [facility] | | | | | | Floor [place], [place] | | | | | | [address] | | | | | | [phone] | | | +--------+ + + + [...] [place] | | | | | | [address] | | | | | | [phone] | | | | | | | | +--------+ + + + + | 12/10/ | Office | Neurological Surgery | April Beck MD | | | 2020 | Visit | | [address] | | | | | | [address] | | | | | | [place], [place] | | | | | | [address] | | | | | | [phone] | | | | | | | | +--------+ + + + + documented as of this encounter Visit Diagnoses Not on filedocumented in this encounter"
--- OUTSIDE RECORDS SUMMARY | ~2019-11-28 | XMS | Encounter Summary ---
Demographics + + + | Address | [address] | | | [place] [address] | + + + | Home Phone [...] Team Providers + +------+ + | Care Patient Service Rep Name | Role | Phone | + [...] | Event | [address] | [address] | | | | | [facility] | [address] | | | | | Hospital Admitting | [place], [place] | | | | | Desk Located on the | [address] | | | | | 9th floor | [phone] | | | | | [place], [place] | | | | | | [address] | | | +--------+ + + + [...] Cuffed; 10/03/18; 1901 | MD Lizette | SLAG MOTOR OPERATOR | +--------+ + + + | Urethr [...] | | 2019 | | | [address] [address] | | | | | | [place] [facility] [place] | | | | | | [address] | | | | | | [phone] | | | | | | | | +--------+ + + + + | 12/10/ | Office | Neurological Surgery | April Beck MD | | | 2019 | Visit | | [address] | | | | | | [address] | | | | | | [place], [place] | | | | | | [address] | | | | | | [phone] | | | | | | | [...] PDT | | | | | Until [facility] 10/03/18 at 2058 | | | | [...]
--- OUTSIDE RECORDS SUMMARY | ~2019-11-28 | XMS | Encounter Summary ---
Demographics + + + | Address | [address] | | | [place] [address] | + + + | Home Phone [...] Team Providers + +------+ + | Care Interior Decorator Name | Role | Phone | + [...] | | | | | | Rd [facility] | | | | | | Hospital Admitting | | | | | | Desk Located on the | | | | | | 9th floor | | | | | | [place], [place] | | | | | | [address] | | | +--------+ + + + [...] | | 2019 | | | [facility] [address] | | | | | | [place] | | | | | | [address] | | | | | | [phone] | | | | | | | | +--------+ + + + + | 12/10/ | Office | Neurological Surgery | April Beck MD | | | 2019 | Visit | | [address] | | | | | | [address] | | | | | | [place] | | | | | | [address] | | | | | | [phone] | | | | | | | | +--------+ + + + + documented as of this encounter Visit Diagnoses Not on filedocumented in this encounter"
--- OUTSIDE RECORDS SUMMARY | ~2019-11-28 | XMS | Encounter Summary ---
Demographics + + + | Address | [address] | | | [place] [address] | + + + | Home Phone [...] Team Providers + +------+ + | Care Prevention Specialist Name | Role | Phone | [...] Morales | | | | Note-Transc | [place], [place] | [address] | | | | ribed | [address] | [address] | | | | | | | [...] | | | | | | [place], [place] | | | | | | [address] | | | | | | [phone] | | | | | | | | +--------+ + + + + | 12/10/ | Office | Neurological Surgery | April Beck MD | | | 2019 | Visit | | [address] | | | | | | [address] | | | | | | [place], [place] | | | | | | [address] | | | | | | [phone] | | | | | | | | +--------+ + + + + documented as of this encounter Visit Diagnoses Not on filedocumented in this encounter"
--- OUTSIDE RECORDS SUMMARY | ~2019-11-28 | XMS | Encounter Summary ---
Demographics + + + | Address | [address] | | | [place] [address] | + + + | Home Phone [...] Team Providers + +------+ + | Care Asphalt Patcher Name | Role | Phone | [...] | Procedures | [address] | [address] | | | | | MRI SPINE | [place], [place] | Research | | | | | THORACIC WWO | [address] | Center | | | | | CONTRAST | Phone: | [place], [place] | | | | | [place] [facility], | [phone] | [address] | | | | | DORSAL SPINE | Fax: | Phone: | | | | | COMBO | [phone] | [phone] | | | | | | | Fax: | | | | | | | [phone] | +--------+--------+ + + + + Reason [...] | Procedures | [address] | [address] | | | | | MRI SPINE | [place], [place] | Research | | | | | THORACIC WWO | [address] | Center | | | | | CONTRAST | Phone: | [place], [place] | | | | | [place] [facility], | [phone] | [address] | | | | | DORSAL SPINE | Fax: | Phone: | | | | | COMBO | [phone] | [phone] | | | | | | | Fax: | | | | | | | [phone] | +--------+--------+ + + + + Encounter [...] | | Doyle Shwetha Mailcode: | [place], [place] | | | | | [facility] | [address] | | | | | Health and Healing, | [phone] | | | | | [place] [address], [facility] | | | | | | Floor [place], [place] | | | | | | [address] | | | | | | [phone] | | | +--------+ + + + [...] | | | | | | [place], [place] | | | | | | [address] | | | | | | [phone] | | | | | | | | +--------+ + + + + | 12/10/ | Office | Neurological Surgery | April Beck MD | | | 2019 | Visit | | [address] [facility] [address] | | | | | | [address] | | | | | | [place], [place] | | | | | | [address] | | | | | | [phone] | | | | | | | [...] report as now presented. Final signature: Tony Lyman | | 11/26/2017 10:35 PM Preliminary: [...]
--- OUTSIDE RECORDS SUMMARY | ~2019-11-28 | XMS | Encounter Summary ---
Demographics + + + | Address | [address] | | | [place] [address] | + + + | Home Phone [...] Team Providers + +------+ + | Care Fertilizer Supervisor Name | Role | Phone | [...] | spine tumor | [place], [place] | [place], [place] | | | | | Procedures | [address] | [address] | | | | | MRI SPINE | Phone: | Phone: | | | | | THORACIC WWO | [phone] | [phone] | | | | | CONTRAST | Fax: | Fax: | | | | | [place] [facility], | [phone] | [phone] | | | | | DORSAL SPINE [...] | | | | spinal cord | [place], [place] | [place], [place] | | | | | Procedures | [address] | [address] | | | | | REQUEST TO | Phone: | Phone: | | | | | SURGERY | [phone] | [phone] | | | | | SVP OF DIGITAL | Fax: | Fax: | | | | | [place] BX/[facility] | [phone] | [phone] | | | | | SPIN | | | | | | | MARCELINOAMANDAIN | | | | | | | [place] | | | | | | [...] (Primary | | 2016 | Visit | [facility] | PA-C [address] | Dx); Spinal cord | | | | and Healing [address] [facility] [place] | tumor; Thoracic | | | | [address] Mailcode: | [id number] | spine tumor | | | | [facility] | [phone] | | | | | Health and [facility], | | | | | | [facility] | | | | | | Floor [place], [place] | | | | | | [address] | | | | | | [phone] | | | +--------+---------+ + + + [...] (WHO grade I) - pathology reviewed at [facility]. Following surgery, the patient was discharge to [facility] for continued intense rehabilitation. She dischar [facility] around 06/16/15 to home and has [...] intact at 2+. Motor: Delt Tri Bi Health Careers Instructor HF KE KF APF ADF Left 5 [...] result of consultation with Dany Peoples of [facility]. Please see below. A. Intramedullary spinal cord [...] long hx of dysuria symptoms NEUROSURGERY AT [facility] [address] Mailcode: [place] [address] documented in this encounter Plan [...] | | | | | | [place], [place] | | | | | | [address] | | | | | | [phone] | | | | | | | | +--------+ + + + + | 12/10/ | Office | Neurological Surgery | April Beck MD | | | 2019 | Visit | | [address] | | | | | | [address] | | | | | | [place], [place] | | | | | | [address] | | | | | | [phone] | | | | | | | [...] | | | | nodule at the Z7opqpu. | | | | | | 2. [...] | + + + + + | [employer] | [address] [facility] | [place] [address] | | | SERVICES, CORE | JEAN [...] LABORATORY | [address] | [place] [address] | | | SERVICES, CORE | PARK [...] | [address] | [place] [address] | | | SERVICES, CORE | PARK [...]
--- OUTSIDE RECORDS SUMMARY | ~2019-11-28 | XMS | Encounter Summary ---
Demographics + + + | Address | [address] | | | [place] [address] | + + + | Home Phone [...] Team Providers + +------+ + | Care Instrument Shop Supervisor Name | Role | Phone [...] | | | | tumor | [facility] [address] | | | | | | Procedures | [address] | | | | | | OCCUPATIONAL | [place], [place] | | | | | | THERAPY | [address] | | | | | | REFERRAL | Phone: | | | | | | | [phone] | | | | | | | Fax: | | | | | | | [phone] | | +--------+--------+ + + + + [...] | | | | | PHYSICAL | [place], [place] | | | | | | THERAPY | [address] | | | | | | REFERRAL | Phone: | | | | | | | [phone] | | | | | | | Fax: | | | | | | | [phone] | | +--------+--------+ + + + + [...] + + | 09/08/ | Hospital | [facility] [address]K [address] | Rajinder Luis MD | | | 2016 - | Encounter | [address] | [address] | | | | | [id number] [facility] | [place], [place] | | | 09/14/ | | [facility], | [address] | | | 2015 | | [place] [address] | [phone] | | | | | [phone] | | | +--------+ + + + [...] [facility] Neurosurgery Diagnoses Principal Final Diagnosis: 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 Toby luu at [facility]. She has residual right lower extremity w [...] on the 8t h floor at the [facility] on the [facility] located at [address], [place] [address]. Please call [phone] if you have any questions or concerns [...] Discharging Attending: Rajinder Luis MD [facility] [address] [address] [place] [address] documented in this encounter Progress Notes Raegan [...] Thoracic incision: flat, dry, no erythema, intact. Orlando present. Sensation: LT sensation intact intact above [...] 2324 09/14/15 1028 GLU 102* 136* 104* [id number] Current Medications: acetaminophen (TYLENOL) tablet 650 mg, [...] bed availability. Raegan Doss PA-C [facility] [address] [address] [address] dams, PHILIPPE Mena - 09/14/2015 8:57 AM [...] edges approximated well, no erythema, dry, intact. Orlando in place. Sensation: LT sensation intact above [...] Ref Range Status 07/12/2015 Negative Negative Final [id number] Current Medications: acetaminophen (TYLENOL) tablet 650 mg, [...] effect. Will plan to stop ISS at [place]. ID/Heme: Afebrile. Leukocytosis at 15 today - possibly d/t steroids. Will cont to follow an d trend. DVT ppx: SCDs while in bed. Lovenox 40mg qHS for DVT ppx. Dispo: Appreciate CM involvement - application pending for [place]. Raegan Doss PA-C [facility] [address] [address] [address] [place], PHILIPPE Mena - 09/13/2015 10:26 AM [...] in place, draining clear yellow urine. Labs: [id number] Current Medications: acetaminophen (TYLENOL) tablet 650 mg, [...] Routine wound care. Okay to shower/shampoo daily. Orlando to be removed at 2 weeks post-op. [...] once patient is able to ambulate to [facility]. Musculoskeletal/skin: Routine decubitus ulcer prevention. Appreciate PT/OT involvement. Endo: CBGs reasonable. 9U ISS used last 24 hours. Mild hyperglycemia likely 2/2 steroid eff ect. Will plan to stop ISS at [place]. ID/Heme: Afebrile. Will check CBC tomorrow AM. DVT ppx: SCDs while in bed. Lovenox 40mg qHS for DVT ppx. Dispo: Appreciate CM involvement - application pending for [place]. Raegan Doss PA-C [facility] [address] [facility]/[place] [address] Cesar Cox MD - 12/2015 11:40 AM [...] Care Unit Attending Progress Note Attending Pager #[phone] ICU Admission Reason Most Recent Value ICU [...] tions/additions as noted. Date of Service: 09/11/2015 [facility] DEPARTMENT: ANE ICU NEURO Place of Service:- Inpatient CSN: [id number] Suggested Modifier: GC - Resident Involved Suggested CPT: TO SALES OPERATIONS MANAGER DOS 09/11/2015 Author:Lesly Branch MD [address] [address] [facility] - 8:28 AM PST NEUROSURGERY PROGRESS [...] c/d/i. No surrounding erythema, swelling or drainage. Orlando in place Endorses T12 sensory level Labs: [...] - blackburn status Please page adult resident salesperson parts [id number] with questions Yokasta Randall MD PGY-2, Neurosurgery 09/11/2015 8:28 AM [facility] - 12:05 PM [facility] NEUROSURGERY PROGRESS NOTE Author: Ngoc Hernandez MD [...] Care Unit Attending Progress Note Attending Pager #[phone] ICU Admission Reason Most Recent Value ICU [...] on counseling and coordination of care.Seen with PA/DIAGNOSTICS TECH Mannie. Please see t heir note for details. I reviewed the documented findings, all data and the recent imaging a vailable. Date of Service: 09/10/2015 [facility] DEPARTMENT: ANE ICU NEURO Place of Service:- Inpatient CSN: [id number] Suggested Modifier: GC - Resident Involved Suggested CPT: TO SALES OPERATIONS MANAGER DOS 09/10/2015 Author:Stephie Anders MD [address] [address] Tristen Hein ACN P - 09/10/2015 7:10 AM PST . Neuroscience Intensive Care Unit Team Progress Note NSICU ASSIGNED #[id number] ICU Admission Reason Most Recent Value ICU [...] e. Date of Service: 09/10/2015 AIXA Mahajan [facility] DEPARTMENT: [facility] ICU NEURO Place of Service:- Inpatient CSN: [id number] Suggested Modifier: None Suggested CPT: TO SALES OPERATIONS MANAGER DOS 09/10/2015 Author:AIXA Mahajan [place] [address] [place] [address] LEFilipe Pabon MD - 09/10/2015 2:58 AM [facility] NEUROSURGERY POST OPERATIVE CHECK Author: Filipe Nelson [...] bed Filipe Nelson MD Neurosurgery Resident Pager #[phone] documented in this en counter Plan of [...] | | | | | [place], [place] | | | | | | [address] | | | | | | [phone] | | | | | | | | +--------+ + + + + | 12/10/ | Office | Neurological Surgery | April Beck MD | | | 2019 | Visit | | [address] | | | | | | [address] | | | | | | [place], [place] | | | | | | [address] | | | | | | [phone] | | | | | | | [...] | + + + + + | [facility] | [address] | [place] [address] | | | SERVICES, NINO | JEAN [...] LABORATORY | [address] | [place] [address] | | | SERVICES, CORE | JEAN [...] LABORATORY | [address] | [place] [address] | | | SERVICES, NINO | PARK [...] | + + + + + | [facility] | [address] | [place] [address] | | | SERVICES, CORE | JEAN [...] PATTY | [address] | [place], [place] | | | ZELALEM HERRERA OF NURIA | [address] | [address] | | | TESTS | | | [...] | + + + + + | [facility] | [address] | [place] [address] | | | SERVICES, CORE | JEAN [...] MARQUAM | [address] | [place], [place] | | | ZELALEM HERRERA OF CARE | [address] | [address] | | | TESTS | | | [...] MARQUAM | [address] | [place], [place] | | | ZELALEM HERRERA OF CARE | [address] | [address] | | | TESTS | | | [...] BRAMBILA | [address] | [place], [place] | | | JAVIER POINT OF CARE | [address] | [address] | | | TESTS | | | [...] MARQUAM | [address] | [place], [place] | | | ZELALEM HERRERA OF CARE | [address] | [address] | | | TESTS | | | [...] MARQUAM | [address] | [place], [place] | | | ZELALEM HERRERA OF CARE | [address] | [address] | | | TESTS | | | [...] BRAMBILA | [address] | [place], [place] | | | JAVIER POINT OF CARE | [address] | [address] | | | TESTS | | | [...] MARQUAM | [address] | [place], [place] | | | ZELALEM HERRERA OF NURIA | [address] | [address] | | | TESTS | | | [...] MARQUAM | [address] | [place], [place] | | | ZELALEM HERRERA OF CARE | [address] | [address] | | | TESTS | | | [...] BRAMBILA | [address] | [place], [place] | | | JAVIER POINT OF CARE | [address] | [address] | | | TESTS | | | [...] MARQUAM | [address] | [place], [place] | | | ZELALEM HERRERA OF CARE | [address] | [address] | | | TESTS | | | [...] MARQUAM | [address] | [place], [place] | | | ZELALEM HERRERA OF CARE | [address] | [address] | | | TESTS | | | [...] BRAMBILA | [address] | [place], [place] | | | ZELALEM HERRERA OF CARE | [address] | [address] | | | TESTS | | | [...] MARQUAM | [address] | [place], [place] | | | ZELALEM HERRERA OF CARE | [address] | [address] | | | TESTS | | | [...] BRAMBILA | [address] | [place], [place] | | | JAVIER POINT OF CARE | [facility] | [address] | | | TESTS | | | [...] BRAMBILA | [address] | [place], [place] | | | ZELALEM HERRERA OF NURIA | [address] | [address] | | | TESTS | | | | + + + + + OPERATION RECORD (09/10/2015 10:32 AM PST) + + | Transcriptions | + + | Rajinder Luis MD - 09/10/2015 8:47 AM PST Date of Service: 09/09/2015 Attending | | Surgeon: Rajinder Luis MD Skid Wrapper(s): Jere Story MD. | | Preoperative Diagnoses: [...] | | Toby here at [facility]. She has residual right lower extremity weakness, [...] General endotracheal anesthesia was induced on the [facility]. | | Occlusive dressings were placed over [...] We | | attempted to use the V[employer] ultrasonic aspirator, but the durotomy was fairly [...] carefully transferred | | back to the [facility]. She was [...] | | 09/10/2015 08:01:47DT: 09/10/2015 08:47:03Job #: [id number] | + + PROCEDURE NOTE (09/10/2015 10:25 [...] PATTY | [address] | [place], [place] | | | MIGUELANGEL HERRERA | [address] | [address] | | | TESTS | | | [...] | + + + + + | [facility] | [address] | [place] [address] | | | SERVICES, CORE | JEAN [...] | | | LABORATORY | | | LAO | | | SERVICES, | | | [...] equation recommended by the | [facility] | | National Kidney Disease Education Program. [...] [facility] LABORATORY | [address] | [place] [address] | | | NINO LEONARD | JEAN [...] LABORATORY | [address] | [place] [address] | | | SERVICES, CORE | PARK [...] | + + + + + | Junko Tada | [address] | [place] [address] | | | SERVICES, | JEAN [address]LOS [...] LABORATORY | [address] | [place] [address] | | | SERVICES, | [address] [...] LABORATORY | [address] | [place] [address] | | | SERVICES, CORE | JEAN [...] LABORATORY | [address] | [place] [address] | | | NINO LEONARD | PARK [...] [facility] LABORATORY | [address] | [place] [address] | | | SERVICES, NINO | JEAN [...] | | | LABORATORY | | | LAO | | | SERVICES, | | | [...] | + + + + + | [facility] | [address] | [place] [address] | | | SERVICES, CORE | [address] | | | + + + + + INTRAOPERATIVE NEURO MONITORING (09/09/2015) + + + | Narrative | Performed At | + + + | Patient Name: Matt Fagan Date of : 1990 | | | Date of Test: 09/09/2015 Place of | | | Service: IP Intra Op (34) [id number] INTRAOPERATIVE NEURO | | | MONITORING History: [...] | | Department of Neurology Suggested CPT: 93941 - IOM Remote x 3 | | | hr(s) 80553 - Central Motor EP's Upper AND Lower [...] resectiontumor | | | | | | ([id number]). No high | | | | | [...] | | | | | | Block [id number]: | | | | | | Tumor cells | | | | | | Marker Result | | | | | | CommentGlial | | | | | | Fibrillary Acidic | | | | | | Protein | | | | | | PositiveVimentin | | | | | | [id number] % | | | | | | [...] Epic: | | | | | | [id number] = spinal | | | | | [...] OF | [address] | [place] [address] | | | PATHOLOGY | [address]AN [address] [...] | | | | | CONTINUOUS, Starting [facility] 09/09/15 | | AM PST | | [...]
--- OUTSIDE RECORDS SUMMARY | ~2019-11-28 | XMS | Encounter Summary ---
Demographics + + + | Address | [address] | | | [place] [address] | + + + | Home Phone [...] Team Providers + +------+ + | Care Garment Turner Name | Role | Phone | + +------+ + | Damir Sy MD | PCP | | + +------+ + Encounter Details +--------+ + + + + | Date | Type | Department | Care Team | Description | +--------+ + + + + | 11/26/ | Procedure | Radiology/Imaging | | | | 2018 | Pass | Lab at [facility] [address] | | | | | | [address] [place] Mailcode: | | | | | | [facility] | | | | | | Health and Healing, | | | | | | Building [facility] | | | | | | Floor [place], [place] | | | | | | [address] | | | | | | [phone] | | | +--------+ + + + [...] [place] | | | | | | [address] | | | | | | [phone] | | | | | | | | +--------+ + + + + | 12/10/ | Office | Neurological Surgery | April Beck MD | | | 2020 | Visit | | [address] | | | | | | [address] | | | | | | [place], [place] | | | | | | [address] | | | | | | [phone] | | | | | | | | +--------+ + + + + documented as of this encounter Visit Diagnoses Not on filedocumented in this encounter"
--- OUTSIDE RECORDS SUMMARY | ~2019-11-28 | XMS | Encounter Summary ---
Demographics + + + | Address | [address] | | | [place] [address] | + + + | Home Phone [...] Team Providers + +------+ + | Care Miller Helper Name | Role | Phone | + [...] | spine tumor | [place], [place] | [place], [place] | | | | | Procedures | [address] | [address] | | | | | MRI SPINE | Phone: | Phone: | | | | | THORACIC WWO | [phone] | [phone] | | | | | CONTRAST | Fax: | Fax: | | | | | [place] [facility], | [phone] | [phone] | | | | | DORSAL SPINE [...] | | | | | Procedures | [address] | [address] | | | | | MRI SPINE | Phone: | Phone: | | | | | THORACIC WWO | [phone] | [phone] | | | | | CONTRAST | Fax: | Fax: | | | | | [place] [facility], | [phone] | [phone] | | | | | DORSAL SPINE | | | | | | | COMBO | | | +--------+--------+ + + + + Encounter Details +--------+ + + + + | Date | Type | Department | Care Team | Description | +--------+ + + + + | 01/16/ | Hospital | Radiology/Imaging | | | | 2015 | Encounter | Lab at [facility] [address] | | | | | | [address] [place] Mailcode: | | | | | | [facility] | | | | | | Health and Healing, | | | | | | Building [address] 3rd | | | | | | Floor [facility] [place] | | | | | | [address] | | | | | | [phone] | | | +--------+ + + + [...] | | | | | | [place] | | | | | | [address] | | | | | | [phone] | | | | | | | | +--------+ + + + + | 12/10/ | Office | Neurological Surgery | April Beck MD | | | 2019 | Visit | | [address] | | | | | | [address] | | | | | | [place], [place] | | | | | | [address] | | | | | | [phone] | | | | | | | [...] | | | | nodule at the L9ijcpo. | | | | | | 2. [...] | | + +---------+ + + | [facility] DEPARTMENT OF | | | | | [...]
--- OUTSIDE RECORDS SUMMARY | ~2019-11-28 | XMS | Encounter Summary ---
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 Name | Role | Phone [...] | | | spine tumor | [place] [address] | | | | | | Procedures | [address] | | | | | | | [place], [place] | | | | | | OCCUPATIONAL | [address] | | | | | | THERAPY | Phone: | | | | | | REFERRAL | [phone] | | | | | | | Fax: | | | | | | | [phone] | | +--------+--------+ + + + + [...] Therapy | Thoracic | Caleb Lang, | [facility] | | | | | spine tumor | [place] [address] | [address] | | | | | Procedures | [address] | Giuliana Chatamn | | | | | PHYSICAL | [place], [place] | [address] | | | | | THERAPY | [address] | [facility] | | | | | REFERRAL | Phone: | [phone] | | | | | | [phone] | Phone: | | | | | | Fax: | [phone] | | | | | | [phone] | Fax: | | | | | | | [phone] | +--------+--------+ + + + + Reason [...] + | 07/06/ | Hospital | [facility] [address] | April Beck MD | | | 2018 - | Encounter | [address] | [address] | | | | | [id number] [facility] | [address] | | | 07/12/ | | HOSPITAL [place], | [place], [place] | | | 2019 | | [place] [address] | [address] | | | | | [phone] | [phone] | | | | | | | | | | | | Rajinder Luis MD | | | | | | [address] | | | | | | [place], [place] | | | | | | [address] | | | | | | [phone] | | | | | | | [...] who has been followed in the [facility] Neurosurgical c linic for 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 The patient noted new onset of right lower extrem ity weakness on 07/06/2018 and then presented to the hospital for evaluation. Ms. Worrell was transferred to [facility] on 07/06/2018. A MRI showed cord [...] from the beginning. Dura was closed with Grandview-Thaddeus, tacked up with 4-0 Nurol on sutures. [...] patient was felt appropriate for discharge to [facility] (Inpatient Rehab) on 07/12/2018, and the patient and/or family members agree with this course of action. The janeth chang has a follow up appointment in the [facility] Neurosurgery Spine clinic on 07/31/2018. Medication [...] on the 1 2th floor at the [facility] on the [facility] located at [address] [place] [address]. Please call [phone] if you have any questions or concerns bef ore your appointment time. Code Status for Facility Status: Full Code Discharge Follow Up - Facility MD to follow Facility MD to follow patient. Future Appointments Provider Department Dept Phone Center 07/31/2018 1:00 PM Raheem Doss [facility] at [facility] [phone] SPC Contact information for after-discharge care [facility] [place] . Specialty: Inpatient Rehabilitation Facility Contact information [address] [place] [address] Warning Symptoms and Signs Please call the Neurosurgery clinic at [phone] with any questions Sunday to Sunday 8 A M - 4 PM. After hours, call [facility] at [phone] and ask to speak with the Neurosurgery resi dent digital content coordinator if you have any of the following: - Difficulty breathing or shortness of breath; - Excessive bleeding or drainage from incision sites; - Fevers, chills, sweats; - Persistent nausea or vomiting; - Change in mental status. [facility] Neurosurgery Service Pain Policy [facility] Neurosurgery Service Pain Policy: Our clinic can prescribe pain medication for up to 6 weeks post-op. All refills must be requested through a the [facility] Neurosurgery Clinic. Patients must give the [...] - 1.10 mg/dL 0.45 (L) EGFR - MALAYSIAN Latest Ref Range: >60 mL/min >60 EGFR NON -MALAYSIAN Latest Ref Range: >60 mL/min >60 GLUCOSE, [...] with case management. CALEB HENRY PA-C [facility] [address] [address] [address] MEDICATIONS Current Facility-Administered Medications Medication acetaminophen (TYLENOL) [...] on ppx Lovenox. Dispo: Pending acceptance at [facility]. RAHEEM DOSS PA-C [facility] [address] [place] [address] [facility], [place] Mena - 07/10/2018 8:17 AM PST Neurosurgery Progress Note Hospital Day:4 Author; RAHEEM DOSS PA-C Attending Physician: Rajinder Luis MD Interval Hx: -Patient reports improvement in pain control this AM, currently at a 11/15. She is happy wit h the changes the APS team made. -She would like to hold on removing her daniels catheter until she can get to [facility]) as th ey manage neurogenic bladder and training well over there. She states she is aware of the ri sks of keeping it in detention. -She was able to sit upright yesterday [...] candidate for IPR. RAHEEM DOSS PA-C [facility] [address] [place] [address] Mook Álvarez ra, MD - 07/09/2018 9:09 [...] WORRELL Routine Cultures PROCEDURE: Strep Screen Culture [[id number]: 11/05/2017 16:4 4 PDT P1] SOURCE: Throat STARTED: 11/05/2017 20:3 9 PDT FREE TEXT SOURCE: BODY SITE: FINAL REPORTS Final Report [] Verified Date/Time: 11/07/2017 11:07 PDT No beta Strep isolated. Order Comments O1: Strep Screen Culture (CULTURE THROAT STREP SCREEN - [facility] - Ordering-Phys: PRINCESS GRAVES) Location: [facility] Performing Locations P1: This test was performed at: [facility] Lab Lab Results Component Value [...] Please contact the Neurosurgery resident on-call pager [phone] with questions or concerns. Olinda Araya MD Resident Physician Department of Neurosurgery Lucinda Valencia PA-C - 07/09/2018 5:50 AM PSTFormatting of this note might be diffe rent from the original. . Neuroscience Intensive Care Unit Team Progress Note NSICU ASSIGNED #[id number] ICU Admission Reason Most Recent Value ICU [...] Provider Role Specialty Ipt Critical Care Nsicu #[id number] Treatment Team Ipt Neurosurgery #[id number] Treatment Team Neurological Surgery Patient Lines/Drains/Airways Status [...] Date of Service: 07/09/2018 LUCINDA CASTAÑEDA PA-C [facility] DEPARTMENT: [facility] ICU NEURO Place of Service:- Inpatient CSN: [id number] Suggested Modifier: None Suggested CPT: TO REHAB RN Author:LUCINDA CASTAÑEDA PA-C [address] [id number] signed by Lucinda Castañeda PA-C at 07/09/2018 [...] Please contact the Neurosurgery resident on-call pager [phone] with questions or concerns. Kamaljit Rios M.D., M.P.H. R2 Resident Physician Neurological Surgery Pager: [phone] signed by Kamaljit Rios MD,MPH at 07/08/2018 [...] Imaging: MRI SPINE THORACIC WO CONTRAST Order: [id number] Performed: 07/07/2018 15:00 Status: Final result Visible [...] MG/ML) INT RAVENOUS SOLUTION 13 mL (accession [id number]), GADOTERATE MEGLUMINE 0.5 MMOL/ML (376.9 MG/ML) INTRAVENOUS SOLUTION 13 mL (accession [id number]) FINDINGS: Thoracic spine: There is abnormal T2 [...] 15:48 CT SPINE THORACIC WO CONTRAST Order: [id number] Performed: 07/07/2018 15:12 Status: Final result Visible [...] gabapentin, baclofen, trazodone RAHEEM DOSS PA-C [facility] [address] [place] [address] Dave Mcclain MD - 07/07/2018 12:34 PM [...] today Dave Ayala MD Neurosurgery, PGY-1 Pager [phone] Dave Mcclain MD - 07/07/2018 7:38 AM [...] pre-op today -npo at midnight Please page [phone] with any questions or concerns. Dave Ayala MD Neurosurgery, PGY-1 Pager [phone] documented in this encounter Plan of Treatment [...] [place] | | | | | | [address] | | | | | | [phone] | | | | | | | | +--------+ + + + + | 12/10/ | Office | Neurological Surgery | April Beck MD | | | 2019 | Visit | | [address] | | | | | | [address] | | | | | | [place], [place] | | | | | | [address] | | | | | | [phone] | | | | | | | [...] | | | LABORATORY | | | MALAYSIAN | | | SERVICES, | | | [...] | + + + + + | [facility] | [address] | [place] [address] | | | SERVICES, CORE | JEAN [...] PATTY | [address] | [place], [place] | | | ZELALEM HERRERA OF NURIA | [address] | [address] | | | TESTS | | | [...] | + + + + + | [facility] | [address] | [place] [address] | | | SERVICES, CORE | JEAN [...] LABORATORY | [address] | [place] [address] | | | HORACIO, NINO | [address] [...] | | | LABORATORY | | | MALAYSIAN | | | SERVICES, | | | [...] | + + + + + | [facility] | [address] | [place] [address] | | | SERVICES, CORE | JEAN [...] MARQUAM | [address] | [place], [place] | | | JAVIER POINT OF CARE | [address] | [address] | | | TESTS | | | [...] MARQUAM | [address] | [place], [place] | | | JAVIER POINT OF CARE | [address] | [address] | | | TESTS | | | [...] BRAMBILA | [address] | [place], [place] | | | ZELALEM HERRERA OF [facility] | [address] | [address] | | | TESTS | | | [...] + + + + + | [facility] LABORATORY | [address] | [place] [address] | | | SERVICES, CORE | [address] [...] | + + + + + | [facility] | [address] | [place] [address] | | | SERVICES, CORE | JEAN [...] | | | LABORATORY | | | MALAYSIAN | | | SERVICES, | | | [...] | + + + + + | [facility] | [address] | [place] [address] | | | SERVICES, CORE | JEAN [...] Attending | | Surgeon: Rajinder Luis MD Breastfeeding Peer Counselor(s): Yokasta Webb MD. | | Preoperative Diagnoses: [...] | | beginning. Dura was closed with Grandview-Thaddeus, tacked up with 4-0 Nurolon sutures. The | | muscle closed in layers. Skin was closed with 2-0 interrupted vertical mattress | | sutures.Indications For Procedure: Please see [facility] for full details, but briefly, | | Qinaa Worrell is a 27-year-old woman who has [...] operating room | | on a hospital [place] key. She was intubated without difficulty by the [...] then closed it with a running 6-0 Grandview-Thaddeus suture. We tacked out the | | [...] 07/08/2018 | | 19:06:44DT: 07/08/2018 19:40:29Job #: [id number] | |Indication: Intraoperative evaluation of adequacy of [...] |JLG/MODL | | | | | | /[id number] | + + PROCEDURE NOTE (07/08/2018 4:53 [...] + + + + + | [facility] LAB[facility]ORY | [address] | [place] [address] | | | SERVICES, CORE | [address] | | | + + + + + MAGNESIUM, PLASMA (07/08/2018 1:46 PM PST) + +-------+ + + + | Component | Value | Ref Range | Performed | Pathologist | | | | | At | Signature | + +-------+ + + + | MAGNESIUM,P | 1.8 | 1.6 - 2.6 mg/dL | [facility] | | | LASMA | | | [...] | + + + + + | [facility] | [address] | [place] [address] | | | SERVICES, CORE | JEAN [...] | | | LABORATORY | | | MALAYSIAN | | | SERVICES, | | | [...] + + + + + | [facility] | [address] | [place] [address] | | | SERVICES, CORE | JEAN [...] | 60 - 99 mg/dL | [facility] - | | | GLUCOSE, | [...] BRAMBILA | [address] | [place], [place] | | | ZELALEM HERRERA OF NURIA | [address] | [address] | | | TESTS | | | [...] | | | Yokasta Webb PGY5 Pager [phone] YOKASTA WEBB MD | | + + [...] from | | | | | | [id number], | | | | | | [id number], | | | | | | [id number], and | | | | | | [id number]). According | | | | | | to [facility], molecular | | | | | [...] | | | | | | , [facility] | | | | | | [facility] | | | | | | electronic [...] | | | | | | number [id number]. | | | | | | Other, [...] + + + + + | [facility] DEPARTMENT | [address] | [place] [address] | | | PATHOLOGY | [address] [...] | + + + + + | [facility] | [address] | [place] [address] | | | SERVICES, CORE | PARK [...] + + | [facility] | [address] | [place] [address] | | | SERVICES, CORE | [address] [...] | | | LABORATORY | | | MALAYSIAN | | | SERVICES, | | | [...] the MDRD equation recommended by the | [facility] | | National Kidney Disease Education Program. [...] | + + + + + | [facility] | [address] | [place] [address] | | | SERVICES, NINO | [address] | | | + + + + + INTRAOPERATIVE NEURO MONITORING (07/08/2018) + + + | Narrative | Performed At | + + + | Patient Name: Qiana Worrell Date of : 1990 | | | Date of Test: 07/08/2018 Place | | | of Service: IP Intra Op [phone] [id number] INTRAOPERATIVE | | | NEURO MONITORING IOM: [...] min(s), with | | | [place]Y [address] - Short Latency EP's Upper AND Lower extremities | | | [address]9723 - Central Motor EP's Upper AND Lower [...] SOLUTION 13 | | | mL (accession [id number]), GADOTERATE MEGLUMINE 0.5 MMOL/ML (376.9 | | | MG/ML) INTRAVENOUS SOLUTION 13 mL (accession [id number]) FINDINGS: | | | Thoracic spine: There [...] (376.9 MG/ML) INTRAVENOUS SOLUTION 13 mL (accession [id number]), | | GADOTERATE MEGLUMINE 0.5 MMOL/ML (376.9 MG/ML) INTRAVENOUS SOLUTION 13 mL (accession | | [id number]) FINDINGS:Thoracic spine: There is abnormal T2 hyperintensity [...] SOLUTION 13 | | | mL (accession [id number]), GADOTERATE MEGLUMINE 0.5 MMOL/ML (376.9 | | | MG/ML) INTRAVENOUS SOLUTION 13 mL (accession [id number]) FINDINGS: | | | Thoracic spine: There [...] (376.9 MG/ML) INTRAVENOUS SOLUTION 13 mL (accession [id number]), | | GADOTERATE MEGLUMINE 0.5 MMOL/ML (376.9 MG/ML) INTRAVENOUS SOLUTION 13 mL (accession | | [id number]) FINDINGS:Thoracic spine: There is abnormal T2 hyperintensity [...] | + + + + + | [facility] | [address] | [place] [address] | | | SERVICES, | [address] [...] LABORATORY | [address] | [place] [address] | | | SERVICES, | [address] [...] + + + + + | [facility] | [address] | [place] [address] | | | SERVICES, CORE | P[address] [...] [facility] | [address] | [place] [address] | | | SERVICES, CORE | [address] [...] | | | LABORATORY | | | MALAYSIAN | | | SERVICES, | | | [...] MDRD equation recommended by the | [facility] | | National Kidney Disease Education [...] + + + + + | [facility] | [address] | [place] [address] | | | SERVICES, CORE | [address] [...]
--- OUTSIDE RECORDS SUMMARY | ~2019-11-28 | XMS | Encounter Summary ---
Demographics + + + | Address | [address] | | | [place] [address] | + + + | Home Phone [...] Team Providers + +------+ + | Care Supervising Fire Marshal Name | Role | Phone | + [...] 09/23/ | Documentati | SOCIAL WORK | Robert, | Social Work Notes | | 2016 | on | AMBULATORY [address] | YESY [address],GER | | | | | [address] | [address] | | | | | Mailcode: CH6A | [facility] | | | | | [place], [place] | [place], [place] | | | | | [address] | [address] | | | | | [phone] | | | +--------+ + + + [...] | | 2019 | | | [place] [address] | | | | | | [place], [place] | | | | | | [address] | | | | | | [phone] | | | | | | | | +--------+ + + + + | 12/10/ | Office | Neurological Surgery | April Beck MD | | | 2020 | Visit | | [address] | | | | | | [address] | | | | | | [place] | | | | | | [address] | | | | | | [phone] | | | | | | | | +--------+ + + + + documented as of this encounter Visit Diagnoses Not on filedocumented in this encounter"
--- OUTSIDE RECORDS SUMMARY | ~2019-11-28 | XMS | Encounter Summary ---
Demographics + + + | Address | [address] | | | [place] [address] | + + + | Home Phone [...] Team Providers + +------+ + | Care Sales Project Administrator Name | Role | Phone | [...] Event | [address] | [address] | | | | | [facility] | [place] [facility] | | | | | [facility]mitting | [place] [address] | | | | | Desk Located on the | [phone] | | | | | 9th floor | | | | | | [place], [place] | [address] | | | | | [address] | [place] | | +--------+ + [...] | | | 7 | | reviewed, PARJoyce held, anesthetic plan made or approved by [...] on | spine- thoracic; 04/27/17 | Katelyn Gibosn RN | Discontinued After | | | [...] by | 03/22/16 1233 by | | erathais | Foot; 18 g; None; No; Positive; | Chantal Al[place]ga | Mary Marshall RN | | IV | 03/22/16; 1233 (left foot IV | [place] [address] | | | | removed prior to arrival to PACU) | | | +--------+ + + + | Periph | 03/22/16; 0833; Manasa Buen[address] | 03/22/16 0833 by | 03/23/16 08 by | | berenice | FOLEY ARTIST; Right; Hand; 18 g; None; | Chantal [...] | | 2019 | | | [place] [address] | | | | | | [place] [facility] [place] | | | | | | [address] | | | | | | [phone] | | | | | | | | +--------+ + + + + | 12/10/ | Office | Neurological Surgery | April Beck MD | | | 2019 | Visit | | [address] | | | | | | [address] | | | | | | [place], [place] | | | | | | [address] | | | | | | [phone] | | | | | | | [...] PDT | | | | | Until 03/22/16 at 1227 | | | | [...] 12:34 | | | | | Starting 03/22/16 at 0724, | anesthes | PM PDT [...] AM PDT | | | | | 16 at 1227 | | | | | [...] 50 mg | | | | Starting 03/22/16 at 0734, | | 16 7:54 | [...] 16 7:34 | | | | | 16 at 0734, Until Wed | | AM [...]
--- OUTSIDE RECORDS SUMMARY | ~2019-11-28 | XMS | Encounter Summary ---
Demographics + + + | Address | [address] | | | [place] [address] | + + + | Home Phone [...] Team Providers + +------+ + | Care Deck Cadet Name | Role | Phone | + +------+ + | Damir Sy MD | PCP | | + +------+ + Encounter Details +--------+ + + + + | Date | Type | Department | Care Team | Description | +--------+ + + + + | 12/06/ | Telephone | Neurosurgery at | Rajinder Luis MD | | | 2016 | | [facility] | [address] | | | | | and Healing [address] | [place], [place] | | | | | [address] Mailcode: | [address] | | | | | [facility] | [phone] | | | | | Health and Healing, | | | | | | [facility] | | | | | | Floor [place], [place] | | | | | | [address] | | | | | | [phone] | | | +--------+ + + + [...] | | | | | | [place], [place] | | | | | | [address] | | | | | | [phone] | | | | | | | | +--------+ + + + + | 12/10/ | Office | Neurological Surgery | April Beck MD | | | 2019 | Visit | | [address] | | | | | | [address] | | | | | | [place] | | | | | | [address] | | | | | | [phone] | | | | | | | | +--------+ + + + + documented as of this encounter Visit Diagnoses Not on filedocumented in this encounter"
--- OUTSIDE RECORDS SUMMARY | ~2019-11-28 | XMS | Encounter Summary ---
Demographics + + + | Address | [address] | | | [place] [address] | + + + | Home Phone [...] Team Providers + +------+ + | Care Audiometrist Name | Role | Phone | + [...] THORACIC | | 2017 | | [address] | [address] | LAMINECTOMIES FOR | | | | Rd [facility] [address] | [place], [place] | RESECTION OF M[place], | | | | Hospital Admitting | [address] | INTRAOPERATIVE NEURO | | | | Desk Located on the | [phone] | MONITORING AND | | | | 9th floor | | ULTRASOUND, | | | | [place], [place] | | SPECIMENS TO | | | | [address] | | PATHOLOGY X 2 (KYMBERLY) | [...] Luis MD PCP: Clare Chowdary MD Service: [facility] Neurosurgery Diagnoses Principal Final Diagnosis: Thoracic [...] She has had 3 prior resections; Ada r 2014, September 09, 2015, and March 22, [...] by the attending providers, resident providers, and [facility]. Post operatively, the patient was admitted [...] rehabilitation team and was seen by a Salesperson [employer] with recommendation for IPR (TRISTON) upon discharge. [...] at her post-op clinic visit or at [facility] by a provider and then cancel the [...] be on the 12th floor at the [facility] on the [facility] located at [address] [place] [address]. Please call [phone] if you have any questions or concerns before your appointment time. If you are still admitted to [facility] at the time of this appointment, the providers at [facility] can remove your slim. Please then make a 6 week post-op visit to see Raegan Doss PA-C in [facility] ro[facility] clinic for routine follow up. You can call [phone] to make this appointment. PCP:Clare Chowdary MD [...] 01/28/17. If you are still admitted to [facility] when your slim need to come out, the providers at [facility] an remove your slim. Please then make a 6 week post-op visit to see Raegan Doss PA-C in Neurosurgery clinic for routine follow up. You can call [phone] to make this appointmen t. Special Instructions/Tests: N/A Condition On Discharge: Good Vital Signs at discharge as appropriate: BP: 109/55 (01/18/17 0451) Pulse: 64 (01/18/17 0451) Resp: 14 ( 0451) Weight: 78 kg (171 lb 15.3 oz) (01/15/17 0000) Discharge Patient To: Interhospital Transfer - [facility] Inpatient Rehab Does patient have a planned readmission: No Discharge Summary Completed?: Yes. 01/18/2017 Discharging Provider: Raegan Doss PA-C Date Completed: 01/18/2017 Time Completed: 10:56 AM Discharging Attending: Rajinder Luis MD [facility] [address] [address] [place] [address] documented in this encounter Progress Notes Raegan Doss PA-C - 01/18/2017 9:48 AM PDTFormatting of this note might be different f rom the original. Neurosurgery Progress Note Hospital Day:7 Author; Raegan Doss PA-C Attending Physician: Rajinder Luis MD Interval Hx: -PO dilaudid was increased to 4-8mg q3h for pain, patient states her pain is now much ai r controlled at 11/15 -Denies any new weakness or new sensation loss/gain since yesterday -Physiatry saw patient and recommended a short stay at [facility] -Patient has required several straight caths [...] O2 Delivery Device: None (room air) (01/18/17 0450) 24 Hour Vital Min/Max: Systolic (24hrs), Av [...] 72 Hours (or 3 results): Recent Labs 01/16/17 0714 01/17/17 0634 01/18/17 0635 NA 136 139 [...] prevention, appreciate PT/OT involvement with recs for [facility]. ID/Heme: Afebrile since admission on 01/11. DVT ppx: SCDs while in bed, ppx lovenox 40mg inj. qHS. Dispo: Patient is medically stable for discharge. CM working on placement at [facility] for discharge today. Raegan Doss PA-C [facility] [address] [address] [place] [address] dams, PHILIPPE Mena - 01/17/2017 10:28 AM [...] Thoracic incision: flat, dry, intact. No erythema. [place] present. Sensation: Patchy numbness in BLE. Decreased sensation on plantar aspect of left foot when compared to yesterday. Motor: HF KF KE APF ADF Left 5 5 5 5 5 Right 5 5 4+ 5 5 Labs: CBC with diff last 72 hours (or 3 results) Recent Labs 01/15/172901/16/1771301/17/17 0634 WBC 10.08 9.16 8.18 HB 11.9* 12.0 12.6 HCT 37.0 37.4 39.2 PLT 237 249 290 Chemistries: Last 72 Hours (or 3 results): Recent Labs 01/15/172901/16/1714 01/17/17 0634 NA 142 136 139 K [...] siatry consult placed for possible admission to [facility]. ID/Heme: Afebrile since admission on 01/11. DVT ppx: SCDs while in bed, ppx lovenox 40mg inj. qHS. Dispo: Pending physiatry consult. Appreciate CM involvement. Raegan Doss PA-C [facility] [address]U [address] [address] [id number] dams, PHILIPPE Mena - 01/16/2017 8:38 AM [...] 72 hours (or 3 results) Recent Labs 01/14/175301/15/172901/16/17713 WBC 8.70 10.08 9.16 HB 11.8* 11.9* 12.0 HCT 36.0 37.0 37.4 PLT 257 237 249 Chemistries: Last 72 Hours (or 3 results): Recent Labs 01/14/175301/14/1772801/15/172901/16/17713 NA 142 -- -- 142 136 K [...] Will discuss with CM. Raegan Doss PA-C [facility] [address] [facility] [address] dams, PHILIPPE Mena - 01/15/2017 9:02 AM [...] catheter in until able to ambulate to [facility]. She also r equests going up on [...] and possible rehab needs. Raegan Doss PA-C [facility] [address]H [address] [address] [place] [address] urrKaci grant M D - 01/14/2017 9:42 AM PDT . Neuroscience Intensive Care Unit Attending Progress Note Attending Pager #[phone] Documentation Date 01/13/17 1450 Day of Procedure [...] team members Provider Role Specialty Ipt Neurosurgery #[id number] Treatment Team Neurological Surgery Ipt Critical Care Nsicu #[id number] Treatment Team -- Code Status Code Status [...] on counseling and coordination of care.Seen with PA/ELEMENTARY INSTRUCTIONAL COACH Ryan. Please see their note for details. I reviewed the documented findings, all data and the recent imaging available. Date of Service: 01/14/2017 Kaci Mon MD Author:Kaci Mon MD [place] [phone] Chirag Reyna MD - 01/14/2017 9:03 AM PDTFormatting of this note might be different fr om the original. NEUROSURGERY PROGRESS NOTE Author: Chirag Aarno MD Today's Date: 01/14/2017 Attending Physician: Rajinder [...] Aaron MD Neurosurgery, PGY-2 On-call resident pager [phone] 9:03 AM 01/14/2017 Nay Rios [facility] - 01/14/2017 7:30 AM PDT . 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 Date of Service: 01/14/2017 AIXA Sanders [facility] DEPARTMENT: ANE ICU NEURO Place of Service:- Inpatient CSN: [id number] Suggested Modifier: None Suggested CPT: TO TRAFFIC CONTROL OPERATOR AIXA Orozco Author:AIXA Sanders [place] [address] [place] [email or web address] signed by AIXA Orozco at 01/14/2017 11:26 AM Stephie Rodríguez MD - 01/13/2017 9:35 PM PDTFormatting of this note might be differen t from the original. . Neuroscience Intensive Care Unit Attending Progress Note Attending Pager #[phone] Documentation Date 01/13/17 1450 Day of Procedure [...] team members Provider Role Specialty Ipt Neurosurgery #[id number] Treatment Team Neurological Surgery Ipt Critical Care Nsicu #34229 Treatment Team -- Code Status Code Status [...] on counseling and coordination of care.Seen with PA/ELEMENTARY INSTRUCTIONAL COACH Ms. Gonzalez. Please see their note for details. I reviewed the documented findings, all data and the recent shmuel ging available. Date of Service: 01/13/2017 [facility] DEPARTMENT: ANE ICU NEURO Place of Service:- Inpatient CSN: [id number] Suggested Modifier: GC - Resident Involved Suggested CPT: TO TRAFFIC CONTROL OPERATOR Author:Stephie Anders MD [place] [address] [place] [email or web address] signed by Stephie Anders MD at 01/13/2017 9:36 PM PDTLarson, Chirag Navarro MD - 01/13/2017 8:22 PM [...] hours) at 01/13/172021 Last data filed at 01/13/17 192 Gross per 24 hour Intake 2482.5 ml [...] Aaron MD Neurosurgery, PGY-2 On-call resident pager [phone] 8:22 PM 01/13/2017 Cesar Najera MD - [...] vs thoracic spine pathology. MRI total spine 7/6 with no epidural abscess or other new [...] MD Neurosurgery Resident 11:07 PM, 01/12/2017 Pager #[phone] Kacey Elizabeth P A-C - 01/12/2017 8:42 [...] 01/14 for tumor resection. Kacey Pimentel PA-C [facility] [address]K [address] [place] [address] Chavo Robert MD - 01/11/2017 9:27 PM [...] midline No pronator drift Delt Bi Tri Operational Risk Analyst HF KE KF DF PF Left 5 [...] now Chavo Penn MD Neurosurgery Resident Pager #[phone] signed by Chavo Penn MD at 01/11/2017 9:57 PM PDTdocumente d in this encounter Plan of Treatment +--------+ [...] | | 2019 | | | [address] | | | | | | [place] [facility] [place] | | | | | | [address] | | | | | | [phone] | | | | | | | | +--------+ + + + + | 12/10/ | Office | Neurological Surgery | April Beck MD | | | 2020 | Visit | | [address] | | | | | | [address] | | | | | | [place], [place] | | | | | | [address] | | | | | | [phone] | | | | | | | [...] | + + + + + | [facility] | [address] | [place] [address] | | | SERVICES, CORE | PARK [...] | + + + + + | [facility] | [address] | [place] [address] | | | SERVICES, CORE | PARK [...] LABORATORY | [address] | [place] [address] | | | SERVICES, CORE | PARK [...] | + + + + + | [facility] | [address] | [place] [address] | | | NINO LEONARD | JEAN [...] | + + + + + | [facility] | [address] | [place] [address] | | | SERVICES, CORE | JEAN [...] | + + + + + | [facility] | [address] | [place] [address] | | | SERVICES, NINO | [address] | | | + + + + + PROCEDURE NOTE (01/15/2017 7:18 PM PDT)OPERATION RECORD (01/15/2017 8:11 AM PDT) + + | Procedure Note | + + | Rajinder Luis MD - 01/13/2017 8:53 PM PDT Date of Service: 01/13/2017 Attending | | Surgeon: Rajinder Luis MD Gas Derrick Operator(s): Joby Thibodeaux, | | . Preoperative [...] drains.Indications For | | Procedure: Please see [facility] for details, but briefly, Qiana Fagan is [...] to the | | operating room on [facility]. General endotracheal anesthesia was induced by the | | Anesthesia team and Neuromonitoring team attached the necessary equipment to perform | | monitoring of motor-evoked potentials and somatosensory-evoked potentials. A Daniels | | catheter was placed and the eyes were taped shut to avoid corneal abrasion. The patient | | was then transported to a prone position on a Hair I table. All pressure points | | were [...] dura was reapproximated and closed using 5-0 [place]-Thaddeus suture | | in a running fashion. [...] a supine position on a | | [facility]. She was then extubated by the [...] tumor, which was sent to Pathology for permanent.MICA Robles, | | Rajinder Luis MD was scrubbed and actively participated performing the critical | | portions of the operation.BRAYAN HenryS/MODLDD: 01/13/2017 19:31:27DT: | | 01/13/2017 20:53:09Job #: [id number] | + + CBC (HEMOGRAM) ONLY (01/15/2017 [...] | + + + + + | [facility] | [address] | [place] [address] | | | SERVICES, NINO | JEAN [...] LABORATORY | [address] | [place] [address] | | | SERVICES, CORE | PARK [...] | + + + + + | [facility] | [address] | [place] [address] | | | SERVICES, CORE | JEAN [...] MARQU[facility] | [address] | [place], [place] | | | JAVIER POINT OF CARE | [address] | [address] | | | TESTS | | | [...] + + + + | [facility] | [address] | [place], [place] | | | JAVIER POINT OF CARE | [address] | [address] | | | TESTS | | | [...] LABORATORY | [address] | [place] [address] | | | SERVICES, CORE | [address] | | | + + + + + MAGNESIUM, PLASMA (01/14/2017 12:54 AM PDT) + +-------+ + + + | Component | Value | Ref Range | Performed | Pathologist | | | | | At | Signature | + +-------+ + + + | MAGNESIUM,P | 1.9 | 1.8 - 2.5 mg/dL | [facility] | | | CHRISTO | | | [...] [facility] | [address] | [place] [address] | | | SERVICES, CORE | JEAN [...] the MDRD equation recommended by the | [facility] | | National Kidney Disease Education [...] | + + + + + | [facility] | [address] | [place] [address] | | | NINO LEONARD | JEAN [...] 97 | 60 - 99 mg/dL | [facility] - | | | GLUCOSE, | [...] BRAMBILA | [address] | [place], [place] | | | ZELALEM HERRERA OF NURIA | [address] | [address] | | | TESTS | | | [...] BRAMBILA | [address] | [place], [place] | | | JAVIER [facility] | [address] | [address] | | | TESTS | | | [...] MARQUAM | [address] | [place], [place] | | | ZELALEM HERRERA OF CARE | [address] | [address] | | | TESTS | | | [...] + + + + | PRODUCT | [id number] | | [facility] | | | UNIT [...] + + + + | EXPIRATION | [id number] | | [facility] | | | DATE [...] + + + + | BLOOD | [id number] | | [facility] | | | PRODUCT [...] LABORATORY | [address] | [place] [address] | | | SERVICES, | [address] [...] + + + + | PRODUCT | [id number] | | [facility] | | | UNIT [...] + + + + | EXPIRATION | [id number] | | [facility] | | | DATE [...] + + + + | BLOOD | [id number] | | [facility] | | | PRODUCT [...] | + + + + + | [facility] | [address] | [place] [address] | | | [address] | | | | TRANSFUSION MEDICINE [...] 7.6 | 5 - 10 Minutes | [facility] - | | | CITRATED | | | MARYOLANDA | | | | | | ZELALEM HERRERA | | | | | | OF CARE | | | | | | TESTS | | + + + + + + | K - | 1.3 | 1 - 3 Minutes | [facility] - | | | CITRATED | | [...] MARYOLANDA | | | | | | HILL, [...] BRAMBILA | [address] | [place], [place] | | | ZELALEM HERRERA OF CARE | [address] | [address] | | | TESTS | | | [...] LABORATORY | [address] | [place] [address] | | | SERVICES, SPECIAL | PARK [...] | + + + + + | [facility] | [address] | [place] [address] | | | NINO LEONARD | JEAN [...] | + + + | Patient Name: Qaina Fagan Date of : 1990 | | | Date of Test: 01/13/2017 Place of | | | Service: IP Intra Op [id number] INTRAOPERATIVE NEURO | | | MONITORING IOM: [...] | | Clinical Neurophysiology Department Suggested CPT: 17342 - IOM | | | Remote x 3 hr(s) 84316 - Short Latency EP's Upper AND Lower | | | extremities 65900 - Central Motor EP's Upper AND Lower extremities | | | 17172 - Neuromuscular Junction Test 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 / | | | | | [...] medical | | | | | | record#[id number]. | | | | | | A: [...] | + + + + + | [facility] | [address] | [place] [address] | | | PATHOLOGY | [address] [...] | + + + + + | [facility] | [address] [address] | [place] [address] | | | SPECIAL HORACIO | JEAN [...] TILLMAN | [address] | [place] [address] | | | SERVICES, CORE | PARK [...] + + | Performing | Address | City/State/[facility] | Phone Number | | Organization | [...] | | + +---------+ + + | [facility] | | | | | [...] + | [facility] | [address] | [place] [address] | | | SERVICES, | [address] [...] | + + + + + | [facility] | [address] | [place] [address] | | | HORACIO, | [address] | | | [...] | + + + + + | [facility] | [address] | [place] [address] | | | NINO LEONARD | JEAN [...] | + + + + + | [facility] | [address] | [place] [address] | | | SERVICES, CORE | JEAN [...] | + + + + + | [facility] | [address] | [place] [address] | | | SERVICES, CORE | PARK [...] | + + + + + | [facility] | [address] | [place] [address] | | | NINO LEONARD | JEAN [...] + + | [facility] | [address] | [place] [address] | | | SERVICES, NINO | JEAN [...] | + + + + + | [facility] | [address] | [place] [address] | | | SERVICES, NINO | PARK [...] | + + + + + | [facility] - | [address] | [place] [address] | | | [place] | | | | + + + [...] | + + + + + | [facility] | [address] | [place] [address] | | | SERVICES, CORE | [address] | | | + + + + + GORDO DIPSTLINDA ONLY (01/11/2017 11:10 PM PDT) + + [...] | [facility] | | | GRAVITY | Warren performed by | | LABORATORY | | [...] [facility] | [address] | [place] [address] | | | SERVICES, CORE | PARK [...] LABORATORY | [address] | [place] [address] | | | SERVICES, CORE | PARK [...] | + + + + + | [facility] | [address] | [place] [address] | | | SERVICES, CORE | JEAN [...] 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 Last surgery 03/22/2016 | RECOGNITION | | [...] At | + + + | [id number] This patient has registered at the | [facility] | | [facility] Emergency Department For more | MEDICAL | | information visit: | TECHNOLOGIES | | [email or web address] | | | [email or web address] ED Care Guidelines There are currently no ED Care Guidelines | | | in LYNN for this patient. Please check your facility's medical | | | records system. Recent Emergency Department Visit Summary Admit | | | Date Facility City State Type Major Type Diagnoses or Chief Complaint | | | Jan 11, 2017 [facility] [place] Emergency | | | Emergency 10,800. transfer Jan 11, 2017 [facility] | | | [facility] [place] Emergency Emergency Recent | | | Inpatient Visit Summary No recorded inpatient visits. E.D. Visit | | | Count (12 mo.) Facility Visits [facility] | | | [place] 2 [facility] 1 [place] [address] | | | [facility] 1 Total 6 Note: Visits indicate total | | | known visits. Care Providers Provider PRC Type Phone Fax | | | Service Dates [facility] Primary Care | | | Current [...] for | | | additional information. 2017 [employer] - | | | [place], [place] - [email or web address] | | + + + + + | Procedure Note | + + | Service Account, Rtf Results Inbound - 01/11/2017 8:40 AM PDT Formatting of this | | note might be different from the original.LYNN?NOTIFICATION?01/11/2017 08:38?ANAID | | QIANA Parsons? patient has registered at the [facility] Emergency Department For more information visit: | | [email or web address] ED Care | | GuidelinesThere are currently no ED Care Guidelines in LYNN for this patient. Please | | check your facility's medical records system.Recent Emergency Department Visit | | SummaryAdmit Date Facility City State Type Major Type Diagnoses or Chief Complaint Jan | | 2016 [facility] [place] Emergency Emergency 10,800. | | transfer Jan 11, 2017 [facility] [place] Emergency Emergency Recent | | Inpatient Visit SummaryNo recorded inpatient visits. E.D. Visit Count (12 mo.)Facility | | Visits [facility] 2 [facility] 1 [facility] | | [place] [address] [facility] 1 Total 6 Note: Visits indicate total known | | visits. Care ProvidersProvider PRC Type Phone Fax Service Dates [facility] | | [facility] Primary Care Current [facility] Current | | TIAN ANTOINE DOTHAN Primary Care Oct 16, 2016 - | [...] additional information. ? 2017 [facility] | | [employer] [place], [place] - [email or web address] | |[facility] 2 | |[facility] 1 | |[facility] 2 | |[facility] 1 | |Total 6 | |Note: Visits indicate total known visits. | | | |Care Providers | |Provider PRC Type Phone Fax Service Dates | |[facility] Primary Care Current | |[facility] Primary [facility] Current | |[facility] Primary [facility] Oct 16, 2016 - Current | | | |The above information is provided for the sole purpose of patient treatment. Use of this in formation beyond the terms of Data Sharing Memorandum of Understanding and License Agreement is prohibited. In | |certain cases not all visits may be represented. Consult the aforementioned facilities for additional information. | |? 2017 [employer] - [place], [place] - [email or web address] | + + + + + + + | Performing | Address | City/State/Zipcode | Phone Number | | Organization | | | | + + + + + | [facility] | [address] | [place], [place] | [phone] | | TECH[employer]OLOGIES | [address] | [address] | | + + + + + [...] PDT | | | | | on Sun01/11/17 at 2200, Until | | | | [...] | | | | dose on Miriam 7/6/17 at 1830, Until | | PM PDT [...]
--- OUTSIDE RECORDS SUMMARY | ~2019-11-28 | XMS | Encounter Summary ---
Demographics + + + | Address | [address] | | | [place] [address] | + + + | Home Phone [...] Team Providers + +------+ + | Care Tempering Oven Operator Name | Role | Phone | [...] | | | | | | Rd [facility] | | | | | | Hospital Admitting | | | | | | Desk Located on the | | | | | | 9th floor | | | | | | [place], [place] | | | | | | [address] | | | +--------+ + + + [...] | | | | | | [place], [place] | | | | | | [address] | | | | | | [phone] | | | | | | | | +--------+ + + + + | 12/10/ | Office | Neurological Surgery | April Beck MD | | | 2020 | Visit | | [address] | | | | | | [address] | | | | | | [place], [place] | | | | | | [address] | | | | | | [phone] | | | | | | | | +--------+ + + + + documented as of this encounter Visit Diagnoses Not on filedocumented in this encounter"
--- OUTSIDE RECORDS SUMMARY | ~2019-11-28 | XMS | Encounter Summary ---
Demographics + + + | Address | [address] | | | [place] [address] | + + + | Home Phone [...] Providers + +------+ + | Care Development Editor Name | Role | Phone | [...] | spinal cord | [place], [place] | [place], [place] | | | | | Procedures | [address] | [address] | | | | | REQUEST TO | Phone: | Phone: | | | | | SURGERY | [phone] | [phone] | | | | | WORKING SECOND HAND | Fax: | Fax: | | | | | [place] BX/EXCIS | [phone] | [phone] | | | | | SPINAL | | | | | | | TUMOR,XDURAL | | | | | | | ,THOR [place] | | | | | | | BX/EXCIS | | | | | | | SPIN | | | | | | | MARECLINO,INDUR,XM | | | | | | | ED,THOR [place] | | | | | | | BX/EXCIS | | | | | | | SPIN | | | | | | | MARCELINO,INDUR,IN | | | | | | | MED,THOR [place] | | | | | | | [...] | Surgery | Spinal cord | Dept [facility] | Rajinder Fisher MD | | | | | tumor ED | [address] | [address] | | | | | f/u T5-10 | [address] | Ave | | | | | spinal cord | Rd [facility] | [place], [place] | | | | | tumor with | Hospital | [address] | | | | | right leg | [place], [place] | Phone: | | | | | weakness. | [address] | [phone] | | | | | | Phone: | Fax: | | | | | | [phone] | [phone] | +--------+--------+ + + + + Encounter Details +--------+---------+ + + + | Date | Type | Department | Care Team | Description | +--------+---------+ + + + | 01/16/ | Office | Neurosurgery at | Rajinder Luis MD | Spinal cord tumor | | 2016 | Visit | [facility] | [address] | (Primary Dx); | | | | and Healing [address] | [place], [place] | Thoracic spine tumor | | | | [address] Mailcode: | [address] | | | | | [facility] | [phone] | | | | | Health and Healing, | | | | | | [facility] | | | | | | Floor [place], [place] | | | | | | [address] | | | | | | [phone] | | | +--------+---------+ + + + [...] relocated to a living arrangement closer to [facility]. She now lives in [place]. She is accompanied by her almost 1-year-old [...] in the near future. I also discussed bro[place] crenshaw her presenting her case to the neuro-oncology tumor Board as well. Rajinder Luis MD I spent 20 minutes dspa-en-xmcs with the patient. I spent more than [...] | | 2019 | | | [facility] [address] | | | | | | [place] [facility] [place] | | | | | | [address] | | | | | | [phone] | | | | | | | | +--------+ + + + + | 12/10/ | Office | Neurological Surgery | April Beck MD | | | 2020 | Visit | | [address] | | | | | | [address] | | | | | | [place], [place] | | | | | | [address] | | | | | | [phone] | | | | | | | [...]
--- OUTSIDE RECORDS SUMMARY | ~2019-11-28 | XMS | Encounter Summary ---
Demographics + + + | Address | [address] | | | [place] [address] | + + + | Home Phone [...] Team Providers + +------+ + | Care Reptile Farmer Name | Role | Phone | + +------+ + | Clare Franks MD | PCP | | + +------+ + Encounter Details +--------+ + + + + | Date | Type | Department | Care Team | Description | +--------+ + + + + | 12/04/ | Documentati | [facility] at | Raegan Doss, | | | 2018 | on | [facility] [address] | PA-C [address] | | | | | Ave Mailcode: | [place], [place] | | | | | [facility] | [address] | | | | | natacha Carbajal, | [phone] | | | | | [place] [address] | | | | | | [place], [place] | | | | | | [address] | | | | | | [phone] | | | +--------+ + + + [...] | | | 2020 | | | [facility] [address] | | | | | | [place], [place] | | | | | | [address] | | | | | | [phone] | | | | | | | | +--------+ + + + + | 12/10/ | Office | Neurological Surgery | April Beck MD | | | 2020 | Visit | | [address] | | | | | | [address] | | | | | | [place] | | | | | | [address] | | | | | | [phone] | | | | | | | | +--------+ + + + + documented as of this encounter Visit Diagnoses Not on filedocumented in this encounter"
--- OUTSIDE RECORDS SUMMARY | ~2019-11-28 | XMS | Encounter Summary ---
Demographics + + + | Address | [address] | | | [place] [address] | + + + | Home Phone [...] Team Providers + +------+ + | Care Condenser Winder Name | Role | Phone | [...] | | | | MRI SPINE | [place], [place] | Research | | | | | THORACIC WWO | [address] | Center | | | | | CONTRAST | Phone: | [place], [place] | | | | | [place] [facility], | [phone] | [address] | | | | | DORSAL SPINE | Fax: | Phone: | | | | | COMBO | [phone] | [phone] | | | | | | | Fax: | | | | | | | [phone] | +--------+--------+ + + + + Reason [...] | | | | MRI SPINE | [place], [place] | Research | | | | | THORACIC WWO | [address] | Center | | | | | CONTRAST | Phone: | [place], [place] | | | | | [place] [facility], | [phone] | [address] | | | | | DORSAL SPINE | Fax: | Phone: | | | | | COMBO | [phone] | [phone] | | | | | | | Fax: | | | | | | | [phone] | +--------+--------+ + + + + Encounter [...] | | [address] [place] Mailcode: | [place], [place] | | | | | [facility] | [address] | | | | | Health and Healing, | [phone] | | | | | [place] [address], [facility] | | | | | | Floor [place], [place] | | | | | | [address] | | | | | | [phone] | | | +--------+ + + + [...] | | | | | | [place], [place] | | | | | | [address] | | | | | | [phone] | | | | | | | | +--------+ + + + + | 12/10/ | Office | Neurological Surgery | April Beck MD | | | 2019 | Visit | | [address] [facility] | | | | | | [address] | | | | | | [place], [place] | | | | | | [address] | | | | | | [phone] | | | | | | | [...]
--- OUTSIDE RECORDS SUMMARY | ~2019-11-28 | XMS | Encounter Summary ---
Demographics + + + | Address | [address] | | | [place] [address] | + + + | Home Phone [...] Team Providers + +------+ + | Care Boiler Tender Name | Role | Phone | [...] | Post-discharge | | 2015 | | [facility] | [address] | follow-up (s/p | | | | and Healing [address] | [place], [place] | admission 05/12/15 - | | | | [address] Mailcode: | [address] | 05/20/15: T6-T7 | | | | [facility] | [phone] | laminectomy for | | | | Health and Healing, | | resection of tumor) | | | | | | | | | | Floor [facility] [place] | | | | | | [address] | | | | | | [phone] | | | +--------+ + + + [...] | | | | | | [place], [place] | | | | | | [address] | | | | | | [phone] | | | | | | | | +--------+ + + + + | 12/10/ | Office | Neurological Surgery | April Beck MD | | 2019 | Visit | | [address] | | | | | | [address] | | | | | | [facility] [place] | | | | | | [address] | | | | | | [phone] | | | | | | | | +--------+ + + + + documented as of this encounter Visit Diagnoses Not on filedocumented in this encounter"
--- OUTSIDE RECORDS SUMMARY | ~2019-11-28 | XMS | Encounter Summary ---
Demographics + + + | Address | [address] | | | [place] [address] | + + + | Home Phone [...] Team Providers + +------+ + | Care Bun Panner Name | Role | Phone | + [...] | Other | | 2019 | | [facility] | [address] | | | | | and Healing [address] | [place], [place] | | | | | [address] Mailcode: | [address] | | | | | [facility] | [phone] | | | | | Health and Healing, | | | | | | [facility] | | | | | | Floor [place], [place] | | | | | | [address] | | | | | | [phone] | | | +--------+ + + + [...] [place] | | | | | | [address] | | | | | | [phone] | | | | | | | | +--------+ + + + + | 12/10/ | Office | Neurological Surgery | April Beck MD | | | 2019 | Visit | | [address] | | | | | | [address] | | | | | | [facility] [place] | | | | | | [address] | | | | | | [phone] | | | | | | | | +--------+ + + + + documented as of this encounter Visit Diagnoses Not on filedocumented in this encounter"
--- OUTSIDE RECORDS SUMMARY | ~2019-11-28 | XMS | Encounter Summary ---
Demographics + + + | Address | [address] | | | [place] [address] | + + + | Home Phone [...] Team Providers + +------+ + | Care T Rail Turner Name | Role | Phone | [...] | | | | Mailcode: CH6A | [facility] [address] | | | | | [place], [place] | [place], [place] | | | | | [address] | [address] | | | | | [phone] | | | +--------+ + + + [...] | | 2019 | | | [facility] [address] | | | | | | [place], [place] | | | | | | [address] | | | | | | [phone] | | | | | | | | +--------+ + + + + | 12/10/ | Office | Neurological Surgery | April Beck MD | | | 2020 | Visit | | [address] | | | | | | [address] | | | | | | [place] | | | | | | [address] | | | | | | [phone] | | | | | | | | +--------+ + + + + documented as of this encounter Visit Diagnoses Not on filedocumented in this encounter"
--- OUTSIDE RECORDS SUMMARY | ~2019-11-28 | XMS | Encounter Summary ---
Demographics + + + | Address | [address] | | | [place] [address] | + + + | Home Phone [...] Team Providers + +------+ + | Care Vehicle Dynamics Engineer Name | Role | Phone | [...] | | | Ave Mailcode: | [place], [place] | | | | | [facility] | [address] | | | | | natacha [address]aj[address], | [phone] | | | | | [place] [address] | | | | | | [place], [place] | | | | | | [address] | | | | | | [phone] | | | +--------+ + + + [...] [place] | | | | | | [address] | | | | | | [phone] | | | | | | | | +--------+ + + + + | 12/10/ | Office | Neurological Surgery | April Beck MD | | | 2020 | Visit | | [address] | | | | | | [address] | | | | | | [place] | | | | | | [address] | | | | | | [phone] | | | | | | | | +--------+ + + + + documented as of this encounter Visit Diagnoses Not on filedocumented in this encounter"
--- OUTSIDE RECORDS SUMMARY | ~2019-11-28 | XMS | Encounter Summary ---
Demographics + + + | Address | [address] | | | [place] [address] | + + + | Home Phone [...] Team Providers + +------+ + | Care Strategic Planning Specialist Name | Role | Phone | [...] cord | Raegan Nieves, | [address] [facility] | | | | | tumor | PA-C [address] | [address] | | | | | Procedures | [address] | [address] | | | | | MRI SPINE | [place], [place] | Research | | | | | THORACIC WWO | [address] | Center | | | | | CONTRAST | Phone: | [place], [place] | | | | | [place] MRI, | [phone] | [address] | | | | | DORSAL SPINE | Fax: | Phone: | | | | | COMBO | [phone] | [phone] | | | | | | | Fax: | | | | | | | [phone] | +--------+--------+ + + + + Reason [...] | | | | | | [address] [facility] | [address] | | | | | | [address] | Ave | | | | | | Rd | [place], [place] | | | | | | [place], [place] | [address] | | | | | | [address] | Phone: | | | | | | | [phone] | | | | | | | Fax: | | | | | | | [phone] | +--------+--------+ + + + + Encounter [...] | | | [place] Mailcode: | [place], [place] | | | | | [facility] | [address] | | | | | and [place], | [phone] | | | | | [place] [address] | | | | | | [place], [place] | | | | | | [address] | | | | | | [phone] | | | +--------+---------+ + + + [...] much of her sensation. She discharged to [facility] for several weeks of IPR. She currently [...] with time. When she was discharged from [facility] multiple medications were missing that she never [...] 3 months with follow up thoracic MRI [facility] [address] [place] [address] documented in this encounter Plan of [...] 2019 | | | [facility] [address] | | | | | | [place], [place] | | | | | | [address] | | | | | | [phone] | | | | | | | | +--------+ + + + + | 12/10/ | Office | Neurological Surgery | April Beck MD | | | 2019 | Visit | | [address] | | | | | | [address] | | | | | | [place], [place] | | | | | | [address] | | | | | | [phone] | | | | | | | [...]
--- OUTSIDE RECORDS SUMMARY | ~2019-11-28 | XMS | Encounter Summary ---
Demographics + + + | Address | [address] | | | [place] [address] | + + + | Home Phone [...] Providers + +------+ + | Care Director Pediatric Name | Role | Phone | + [...] | | | | | PHYSICAL | [place], [place] | [facility] | | | | | THERAPY | [address] | for Health | | | | | REFERRAL | Phone: | and Healing, | | | | | | [phone] | [address], | | | | | | Fax: | [address] | | | | | | [phone] | [place], [place] | | | | | | | [address] | | | | | | | Phone: | | | | | | | [phone] | | | | | | | Fax: | | | | | | | [phone] | +--------+--------+ + + + + Encounter Details +--------+ + + + + | Date | Type | Department | Care Team | Description | +--------+ + + + + | 09/14/ | Nuclear Equipment Research Engineer | Neurosurgery at | Raegan Doss, | Spinal cord tumor | | 2015 | | [facility] | PA-C [address] | (Primary Dx) | | | | and Healing [address] [place], [place] | | | | | [address] Mailcode: | [address] | | | | | [facility] | [phone] | | | | | Health and Healing, | | | | | | [facility] | | | | | | [place], [place] | | | | | | [address] | | | | | | [phone] | | | +--------+ + + + [...] | | | | | | [place], [place] | | | | | | [address] | | | | | | [phone] | | | | | | | | +--------+ + + + + | 12/10/ | Office | Neurological Surgery | April Beck MD | | | 2020 | Visit | | [address] [facility] | | | | | | [address] | | | | | | [place], [place] | | | | | | [address] | | | | | | [phone] | | | | | | | | +--------+ + + + + documented as of this encounter Visit Diagnoses + + | Diagnosis | + + | 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
--- OUTSIDE RECORDS SUMMARY | ~2019-11-28 | XMS | Encounter Summary ---
Demographics + + + | Address | [address] | | | [place] [address] | + + + | Home Phone [...] Providers + +------+ + | Care Regional Economist Name | Role | Phone | + [...] THORACIC | | 2018 | | [facility] | [address] | LAMINECTOMIES FOR | | | | Rd [facility] | [place], [place] | TUMOR RESECTION | | | | Hospital Admitting | [address] | | | | | Desk Located on the | [phone] | | | | | 9th floor | | | | | | [place], [place] | | | | | | [address] | | | +--------+---------+ + + + [...] Female who has been followed in the [facility] Neurosurgical c linic for 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 The patient noted new onset of right lower extrem ity weakness on 07/06/2018 and then presented to the hospital for evaluation. Ms. Worrell was transferred to [facility] on 07/06/2018. A MRI showed [...] from the beginning. Dura was closed with Franklin-Thaddeus, tacked up with 4-0 Nurol on sutures. [...] patient was felt appropriate for discharge to [facility] (Inpatient Rehab) on 07/12/2018, and the patient and/or family members agree with this course of action. The janeth rayamirela has a follow up appointment in the [facility] Neurosurgery Spine clinic on 07/31/2018. [...] on the 1 2th floor at the [facility] on the [facility] located at [address] [place] [address]. Please call [phone] if you have any questions or concerns bef ore your appointment time. Code Status for Facility Status: Full Code Discharge Follow Up - Facility MD to follow Facility MD to follow patient. Future Appointments Provider Department Dept Phone Center 07/31/2018 1:00 PM Raheem Doss [facility] at [facility] [phone] SPC Contact information for after-discharge care Discharge Destination [facility] [place] . Specialty: Inpatient Rehabilitation Facility Contact information [address] [address] Warning Symptoms and Signs Please call the Neurosurgery clinic at [phone] with any questions Sunday to Sunday 8 A M - 4 PM. After hours, call [facility] at [phone] and ask to speak with the Neurosurgery resi dent business solutions consultant if you have any of the following: - Difficulty breathing or shortness of breath; - Excessive bleeding or drainage from incision sites; - Fevers, chills, sweats; - Persistent nausea or vomiting; - Change in mental status. [facility] Neurosurgery Service Pain Policy [facility] Neurosurgery Service Pain Policy: Our clinic can prescribe pain medication for up to 6 weeks post-op. All refills must be requested through a the [facility] Neurosurgery Clinic. Patients must give [...] - 1.10 mg/dL 0.45 (L) EGFR - ITALIAN Latest Ref Range: >60 mL/min >60 EGFR NON -ITALIAN Latest Ref Range: >60 mL/min >60 GLUCOSE, [...] plan with case management. CALEB HENRY PA-C [facility] [address] [address] [address] MEDICATIONS Current Facility-Administered Medications Medication acetaminophen (TYLENOL) [...] 2 tablet traZODone (DESYREL) dose 75 mg daid, Raheem Nieves PA-C - 07/11/2018 8:39 AM [...] Pending acceptance at [facility]. RAHEEM DOSS PA-C [facility] [address] [place] [address] dams, PHILIPPE Mena - 07/10/2018 8:17 AM [...] the ri sks of keeping it in meterman. 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 RAHEEM DOSS PA-C [facility] [address] [place] [address] Mook Álvarez ra, MD - 07/09/2018 9:09 [...] WORRELL Routine Cultures PROCEDURE: Strep Screen Culture [[id number]: 11/05/2017 16:4 4 PDT P1] SOURCE: Throat STARTED: 11/05/2017 20:3 9 PDT FREE TEXT SOURCE: BODY SITE: FINAL REPORTS Final Report [] Verified Date/Time: 11/07/2017 11:07 PDT No beta Strep isolated. Order Comments O1: Strep Screen Culture (CULTURE THROAT STREP SCREEN - CGA - Ordering-Phys: PRINCESS GRAVES) Location: [facility] Performing Locations P1: This test was [...] Please contact the Neurosurgery resident on-call pager [phone] with questions or concerns. Olinda Araya MD Resident Physician Department of Neurosurgery Lucinda Valencia PA-C - 07/09/2018 5:50 AM PSTFormatting of this note might be diffe rent from the original. . Neuroscience Intensive Care Unit Team Progress Note NSICU ASSIGNED #[id number] ICU Admission Reason Most Recent Value ICU [...] Provider Role Specialty Ipt Critical Care Nsicu #12602 Treatment Team Ipt Neurosurgery #[id number] Treatment Team Neurological Surgery Patient Lines/Drains/Airways Status [...] Date of Service: 07/09/2018 LUCINDA CASTAÑEDA PA-C [facility] DEPARTMENT: [facility] ICU NEURO Place of Service:- Inpatient CSN: [id number] Suggested Modifier: None Suggested CPT: TO QUALITY CONTROL MICROBIOLOGY SUPERVISOR Author:LUCINDA CASTAÑEDA PA-C [address] [id number] signed by Lucinda Castañeda PA-C at 07/09/2018 [...] Please contact the Neurosurgery resident on-call pager [phone] with questions or concerns. Kamaljit Rios M.D., M.P.H. R2 Resident Physician Neurological Surgery Pager: [phone] signed by Kamaljit Rios MD,MPH at 07/08/2018 [...] Imaging: MRI SPINE THORACIC WO CONTRAST Order: [id number] Performed: 07/07/2018 15:00 Status: Final result Visible [...] MG/ML) INT RAVENOUS SOLUTION 13 mL (accession [id number]), GADOTERATE MEGLUMINE 0.5 MMOL/ML (376.9 MG/ML) INTRAVENOUS SOLUTION 13 mL (accession [id number]) FINDINGS: Thoracic spine: There is abnormal T2 [...] 15:48 CT SPINE THORACIC WO CONTRAST Order: [id number] Performed: 07/07/2018 15:12 Status: Final result Visible [...] duloxetine, gabapentin, baclofen, trazodone RAHEEM DOSS PA-C [facility] [address] [place] [address] Dave Mcclain MD - 07/07/2018 12:34 PM [...] today Dave Ayala MD Neurosurgery, PGY-1 Pager [phone] Dave Mcclain MD - 07/07/2018 7:38 AM [...] pre-op today -npo at midnight Please page [phone] with any questions or concerns. Dave Ayala MD Neurosurgery, PGY-1 Pager [phone] documented in this encounter Plan of Treatment [...] | | | | | [place] [facility] [place] | | | | | | [address] | | | | | | [phone] | | | | | | | | +--------+ + + + + | 12/10/ | Office | Neurological Surgery | April Beck MD | | | 2019 | Visit | | [address] | | | | | | [address] | | | | | | [place], [place] | | | | | | [address] | | | | | | [phone] | | | | | | | [...] | | | LABORATORY | | | ITALIAN | | | SERVICES, | | | [...] | + + + + + | [facility] [employer] | [address] [facility] [facility] | [place] [address] | | | SERVICES, CORE | JEAN [...] [facility] | [address] | [place], [place] | | | HILL, POINT OF CARE | [address] | [address] | | | TESTS | | | [...] [facility] | [address] | [place] [address] | | | HORACIO, NINO | JEAN [...] [facility] | [address] | [place] [address] | | | SERVICES, CORE | PARK [...] | | | LABORATORY | | | ITALIAN | | | SERVICES, | | | [...] + + + + + | [facility] | [address] | [place] [address] | | | HORACIO, NINO | PARK [...] [facility] | [address] | [place], [place] | | | JAVIER POINT OF CARE | [address] | [address] | | | TESTS | | | [...] [facility] | [address] | [place], [place] | | | JAVIER POINT OF CARE | [address] | [address] | | | TESTS | | | [...] [facility] | [address] | [place], [place] | | | ZELALEM HERRERA OF CARE | [address] | [address] | | | TESTS | | | [...] + + + + + | [facility] | [address] | [place] [address] | | | SERVICES, CORE | JEAN [...] LABORATORY | [address] | [place] [address] | | | SERVICES, CORE | PARK [...] | | | LABORATORY | | | ITALIAN | | | SERVICES, | | | [...] + + + + + | [facility] | [address] | [place] [address] | | | SERVICES, CORE | JEAN [...] | | + +---------+ + + | [facility] RADIOLOGY | | | | | VOICE RECOGNITION 2 | | | | + +---------+ + + OPERATION RECORD (07/08/2018 7:40 PM PST) + + | Procedure Note | + + | Rajinder Luis MD - 07/08/2018 7:40 PM PST Date of Service: 07/08/2018 Attending | | Surgeon: Rajinder Luis MD Roper Operator(s): Yokasta Webb MD. | | Preoperative [...] | | beginning. Dura was closed with Franklin-Thaddeus, tacked up with 4-0 Nurolon sutures. The | | muscle closed in layers. Skin was closed with 2-0 interrupted vertical mattress | | sutures.Indications For Procedure: Please see [facility] for full details, but briefly, | [...] the operating room [facility]ated without difficulty by [...] then closed it with a running 6-0 Franklin-Thaddeus suture. We tacked out the | | [...] 07/08/2018 | | 19:06:44DT: 07/08/2018 19:40:29Job #: [id number] | |Indication: Intraoperative evaluation of adequacy of [...] |JLG/MODL | | | | | | /[id number] | + + PROCEDURE NOTE (07/08/2018 4:53 [...] LABORATORY | [address] | [place] [address] | | | SERVICES, CORE | PARK [...] + + + + + | [facility] | [address] [facility] | [place] [address] | | | HORACIO, NINO | JEAN [...] | | | LABORATORY | | | ITALIAN | | | SERVICES, | | | [...] + + + + + | [facility] | [address] | [place] [address] | | | SERVICES, CORE | JEAN [...] [facility] | [address] | [place], [place] | | | ZELALEM HERRERA OF CARE | [address] | [address] | | | TESTS | | | [...] - MAP > 80 | | | oYkasta Webb PGY5 Pager [phone] YOKASTA WEBB MD | | + + [...] from | | | | | | [id number], | | | | | | [id number], | | | | | | [id number], and | | | | | | [id number]). According | | | | | | to [facility], molecular | | | | | [...] | | | | | | , Pending Sale To [facility] | | | | | | [facility] | | | | | [...] | | | | | | number [id number]. | | | | | | Other, [...] | | | | | determined by [facility] | | | | | | laboratories. [...] | + + + + + | [facility] DEPARTMENT OF | [address] | [place] [address] | | | PATHOLOGY | [address] [...] LABORATORY | [address] | [place] [address] | | | NINO LEONARD | PARK [...] + + + + + | [facility] | [address] [facility] [facility] | [place] [address] | | | SERVICES, CORE | JEAN [...] | | | LABORATORY | | | ITALIAN | | | SERVICES, | | | [...] + + + + + | [facility] | [address] | [place] [address] | | | HORACIO, NINO | [address] | | | + + + + + INTRAOPERATIVE NEURO MONITORING (07/08/2018) + + + | Narrative | Performed At | + + + | Patient Name: Qiana Lopezjendanie Date of : 1990 | | | Date of Test: 07/08/2018 Place | | | of Service: IP Intra Op [phone] [id number] - [id number] INTRAOPERATIVE | | | NEURO MONITORING IOM: [...] min(s), with | | | [place]Y [address] - Short Latency EP's Upper AND Lower extremities | | | 24898 - Central Motor EP's Upper AND Lower [...] SOLUTION 13 | | | mL (accession [id number]), GADOTERATE MEGLUMINE 0.5 MMOL/ML (376.9 | | | MG/ML) INTRAVENOUS SOLUTION 13 mL (accession [id number]) FINDINGS: | | | Thoracic spine: There [...] (376.9 MG/ML) INTRAVENOUS SOLUTION 13 mL (accession [id number]), | | GADOTERATE MEGLUMINE 0.5 MMOL/ML (376.9 MG/ML) INTRAVENOUS SOLUTION 13 mL (accession | | [id number]) FINDINGS:Thoracic spine: There is abnormal T2 hyperintensity [...] SOLUTION 13 | | | mL (accession [id number]), GADOTERATE MEGLUMINE 0.5 MMOL/ML (376.9 | | | MG/ML) INTRAVENOUS SOLUTION 13 mL (accession [id number]) FINDINGS: | | | Thoracic spine: There [...] (376.9 MG/ML) INTRAVENOUS SOLUTION 13 mL (accession [id number]), | | GADOTERATE MEGLUMINE 0.5 MMOL/ML (376.9 MG/ML) INTRAVENOUS SOLUTION 13 mL (accession | | [id number]) FINDINGS:Thoracic spine: There is abnormal T2 hyperintensity [...] [facility] | [address] | [place] [address] | | | SERVICES, | [address] [...] LABORATORY | [address] | [place] [address] | | | SERVICES, | [address] [...] LABORATORY | [address] | [place] [address] | | | SERVICES, CORE | PARK [...] + + + + + | [facility] | [address] | [place] [address] | | | SERVICES, CORE | JEAN [...] | | | LABORATORY | | | ITALIAN | | | SERVICES, | | | [...] + + + + + | [facility] | [address] | [place] [address] | | | SERVICES, CORE | JEAN [...]
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
--- OUTSIDE RECORDS SUMMARY | ~2019-11-28 | XMS | Encounter Summary ---
Demographics + + + | Address | [address] | | | [place] [address] | + + + | Home Phone [...] Providers + +------+ + | Care Medical Review Coordinator Name | Role | Phone | [...] | | [facility] | [place] [facility] | | | | | [facility] Admitting | [place] [address] | | | | | Desk Located on the | [phone] | | | | | 9th floor | | | | | | [place], [place] | [address] | | | | | [address] | GASTON Alvarenga | | +--------+ + [...] 03/23/16 08 by | | berenice | COORDINATOR OF GENETIC SERVICES; Right; Hand; 18 g; None; | Chantal [...] | | 2019 | | | [place] [address] | | | | | | [place] [facility] [place] | | | | | | [address] | | | | | | [phone] | | | | | | | | +--------+ + + + + | 12/10/ | Office | Neurological Surgery | April Beck MD | | | 2019 | Visit | | [address] [facility] | | | | | | [address] | | | | | | [place], [place] | | | | | | [address] | | | | | | [phone] | | | | | | | [...]
--- OUTSIDE RECORDS SUMMARY | ~2019-11-28 | XMS | Encounter Summary ---
Demographics + + + | Address | [address] | | | [place] [address] | + + + | Home Phone [...] Team Providers + +------+ + | Care Getter Filler Name | Role | Phone | [...] | Post-discharge | | 2015 | | [facility] | [address] | follow-up (s/p | | | | and Healing [address] | [place], [place] | admission 05/06/15 - | | | | [address] Mailcode: | [address] | : anterior | | | | [facility] | [phone] | cervical diskectomy | | | | Health and Healing, | | and fusion at C6-7) | | | | | | | | | | Floor [facility] [place] | | | | | | [address] | | | | | | [phone] | | | +--------+ + + + [...] | | | | | | [place] [facility] [place] | | | | | | [address] | | | | | | [phone] | | | | | | | | +--------+ + + + + | 12/10/ | Office | Neurological Surgery | April Beck MD | | | 2019 | Visit | | [address] | | | | | | [address] | | | | | | [facility] [place] | | | | | | [address] | | | | | | [phone] | | | | | | | | +--------+ + + + + documented as of this encounter Visit Diagnoses Not on filedocumented in this encounter"
--- OUTSIDE RECORDS SUMMARY | ~2019-11-28 | XMS | Encounter Summary ---
Demographics + + + | Address | [address] | | | [place] [address] | + + + | Home Phone [...] LAMINECTOMIES FOR | | | | Rd [facility] Main | [place], [place] | RESECTION OF MASS, | | | | Hospital Admitting | [address] | INTRAOPERATIVE NEURO | | | | Desk Located on the | [phone] | MONITORING AND | | | | 9th floor | | ULTRASOUND, | | | | [place], [place] | | SPECIMENS TO | | | | [address] | | PATHOLOGY X 2 (KYMBERLY) | [...] Luis MD PCP: Clare Chowdary MD Service: [facility] Neurosurgery Diagnoses Principal [...] the attending providers, resident providers, and [facility]ing staff. Post operatively, the patient was admitted [...] rehabilitation team and was seen by a [employer] Tube Bender with recommendation for IPR (TRISTON) upon discharge. [...] at her post-op clinic visit or at [facility] by a provider and then cancel the [...] be on the 12th floor at the [facility] on the [facility] located at [address] [place] [address]. Please call [phone] if you have any questions or concerns before your appointment time. If you are still admitted to [facility] at the time of this appointment, the providers at [facility] can remove your slim. Please then make a 6 week post-op visit to see Raegan Doss PA-C in [facility] rosurgery clinic for routine follow up. You can call [phone] to make this appointment. PCP:Clare Chowdary MD [...] 01/28/17. If you are still admitted to [facility] when your slim need to come out, the providers at [facility] an remove your slim. Please then make a 6 week post-op visit to see Raegan Doss PA-C in Neurosurgery clinic for routine follow up. You can call [phone] to make this appointmen t. Special Instructions/Tests: N/A Condition On Discharge: Good Vital Signs at discharge as appropriate: BP: 109/55 (01/18/17 0451) Pulse: 64 (01/18/17 0451) Resp: 14 ( 0451) Weight: 78 kg (171 lb 15.3 oz) (01/15/17 0000) Discharge Patient To: Interhospital Transfer - [facility] Does patient have a planned readmission: No Discharge Summary Completed?: Yes. 01/18/2017 Discharging Provider: Raegan Doss PA-C Date Completed: 01/18/2017 Time Completed: 10:56 AM Discharging Attending: Rajinder Luis MD [facility] [address] [address] [place] [address] documented in this encounter Progress Notes Raegan [...] patient and recommended a short stay at [facility] -Patient has required several straight caths [...] O2 Delivery Device: None (room air) (01/18/17 0452) 24 Hour Vital Min/Max: Systolic (24hrs), Av [...] prevention, appreciate PT/OT involvement with recs for [facility]. ID/Heme: Afebrile since admission on 01/11. DVT ppx: SCDs while in bed, ppx lovenox 40mg inj. qHS. Dispo: Patient is medically stable for discharge. CM working on placement at [facility] for discharge today. Raegan Doss PA-C [facility] [address] [address] [place] [address] dams, PHILIPPE Mena - 01/17/2017 10:28 AM [...] Thoracic incision: flat, dry, intact. No erythema. [place] present. Sensation: Patchy numbness in BLE. Decreased [...] siatry consult placed for possible admission to [facility]. ID/Heme: Afebrile since admission on 01/11. DVT ppx: SCDs while in bed, ppx lovenox 40mg inj. qHS. Dispo: Pending physiatry consult. Appreciate CM involvement. Raegan Doss PA-C [facility] [address]L [address] [address]/[place] [id number] [place], PHILIPPE Mena - 01/16/2017 8:38 AM [...] Will discuss with CM. Raegan Doss PA-C [facility] [address]K [address] [facility] [address] [place], PHILIPPE Mena - 01/15/2017 9:02 AM [...] catheter in until able to ambulate to [facility]. She also r equests going up on [...] and possible rehab needs. Raegan Doss PA-C [facility] [address]V [address] [address] [place] [address] urrKaci grant M D - 01/14/2017 9:42 AM PDT . Neuroscience Intensive Care Unit Attending Progress Note Attending Pager #[phone] Documentation Date 01/13/17 1450 Day of Procedure [...] team members Provider Role Specialty Ipt Neurosurgery #[id number] Treatment Team Neurological Surgery Ipt Critical Care Nsicu #65412 Treatment Team -- Code Status Code Status [...] on counseling and coordination of care.Seen with PA/SHOW HORSE DRIVER Ryan. Please see their note for details. I reviewed the documented findings, all data and the recent imaging available. Date of Service: 01/14/2017 Kaci Mon MD Author:Kaci Mon MD [place] [phone] Chirag Reyna MD - 01/14/2017 9:03 AM [...] Aaron MD Neurosurgery, PGY-2 On-call resident pager [phone] 9:03 AM 01/14/2017 Nay Rios [facility] - 01/14/2017 7:30 AM PDT . 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 Date of Service: 01/14/2017 AIXA Sanders [facility] DEPARTMENT: ANE ICU NEURO Place of Service:- Inpatient CSN: [id number] Suggested Modifier: None Suggested CPT: TO FILM COMPOSER AIXA Orozco Author:AIXA Sanders [place] [address] [place] [address]Qpvbittmdqjesv signed by AIXA Orozco at 01/14/2017 11:26 AM Stephie Rodríguez MD - 01/13/2017 9:35 PM PDTFormatting of this note might be differen t from the original. . Neuroscience Intensive Care Unit Attending Progress Note Attending Pager #[phone] Documentation Date 01/13/17 1450 Day of Procedure [...] team members Provider Role Specialty Ipt Neurosurgery #[id number] Treatment Team Neurological Surgery Ipt Critical Care Nsicu #51649 Treatment Team -- Code Status Code Status [...] on counseling and coordination of care.Seen with PA/SHOW HORSE DRIVER Ms. Gonzalez. Please see their note for details. I reviewed the documented findings, all data and the recent shmuel ging available. Date of Service: 01/13/2017 [facility] DEPARTMENT: ANE ICU NEURO Place of Service:- Inpatient CSN: [id number] Suggested Modifier: GC - Resident Involved Suggested CPT: TO FILM COMPOSER Author:Stephie Anders MD [place] [address] [place] [id number] signed by Stephie Anders MD at 01/13/2017 [...] Aaron MD Neurosurgery, PGY-2 On-call resident pager [phone] 8:22 PM 01/13/2017 Cesar Najera MD - [...] MD Neurosurgery Resident 11:07 PM, 01/12/2017 Pager #[phone] Kacey Elizabeth P A-C - 01/12/2017 8:42 [...] 01/14 for tumor resection. Kacey Pimentel PA-C [facility] [address]K [address] [place] [address] Chavo Robert MD - 01/11/2017 9:27 PM [...] midline No pronator drift Delt Bi Tri Auto Dismantler HF KE KF DF PF Left 5 [...] now Chavo Penn MD Neurosurgery Resident Pager #[phone] signed by Chavo Penn MD at 01/11/2017 [...] | | 2019 | | | [address] | | | | | | [place] [facility] [place] | | | | | | [address] | | | | | | [phone] | | | | | | | | +--------+ + + + + | 12/10/ | Office | Neurological Surgery | April Beck MD | | | 2020 | Visit | | [address] | | | | | | [address] | | | | | | [place], [place] | | | | | | [address] | | | | | | [phone] | | | | | | | [...] LABORATORY | [address] | [place] [address] | | | SERVICES, CORE | PARK [...] | + + + + + | [facility] | [address] | [place] [address] | | | SERVICES, CORE | PARK [...] LABORATORY | [address] | [place] [address] | | | SERVICES, CORE | PARK [...] the MDRD equation recommended by the | [facility] | | National Kidney Disease Education Program. [...] LABORATORY | [address] | [place] [address] | | | NINO LEONARD | JEAN [...] | + + + + + | [facility] | [address] | [place] [address] | | | SERVICES, CORE | JEAN [...] | + + + + + | [facility] | [address] | [place] [address] | | | SERVICES, NINO | JEAN CARLOS GUZMAN | | | + + + + + PROCEDURE NOTE (01/15/2017 7:18 PM PDT)OPERATION RECORD (01/15/2017 8:11 AM PDT) + + | Procedure Note | + + | Rajinder Luis MD - 01/13/2017 8:53 PM PDT Date of Service: 01/13/2017 Attending | | Surgeon: Rajinder Luis MD Electronic Scale Tester(s): Joby Thibodeaux, | | . Preoperative Diagnosis: [...] drains.Indications For | | Procedure: Please see [facility] for details, but briefly, Qiana Fagan is [...] to the | | operating room on [facility]. General endotracheal anesthesia was induced by [...] dura was reapproximated and closed using 5-0 Osceola-Thaddeus suture | | in a running fashion. [...] a supine position on a | | [facility]. She was then extubated by the [...] 01/13/2017 19:31:27DT: | | 01/13/2017 20:53:09Job #: [id number] | + + CBC (HEMOGRAM) ONLY (01/15/2017 [...] | + + + + + | [facility] | [address] | [place] [address] | | | SERVICES, NINO | JEAN [...] the MDRD equation recommended by the | [facility] | | National Kidney Disease Education Program. [...] LABORATORY | [address] | [place] [address] | | | SERVICES, CORE | PARK [...] | + + + + + | [facility] | [address] | [place] [address] | | | SERVICES, CORE | JEAN [...] MARQU[facility] | [address] | [place], [place] | | | JAVIER POINT OF CARE | [address] | [address] | | | TESTS | | | [...] - [place] | [address] | [place], [place] | | | JAVIER POINT OF CARE | [address] | [address] | | | TESTS | | | [...] LABORATORY | [address] | [place] [address] | | | SERVICES, CORE | PARK [...] [facility] | [address] | [place] [address] | | | SERVICES, CORE | JEAN [...] LABORATORY | [address] | [place] [address] | | | NINO LEONARD | JEAN [...] 97 | 60 - 99 mg/dL | [facility] - | | | GLUCOSE, [...] BRAMBILA | [address] | [place], [place] | | | ZELALEM HERRERA OF NURIA | [address] | [address] | | | TESTS | | | [...] BRAMBILA | [address] | [place], [place] | | | JAVIER GEFF OF [facility] | [address] | [address] | | | TESTS | | | [...] MARQUAM | [address] | [place], [place] | | | ZELALEM HERRERA OF CARE | [address] | [address] | | | TESTS | | | [...] + + + + | PRODUCT | [id number] | | [facility] | | | UNIT [...] + + + + | EXPIRATION | [id number] | | [facility] | | | DATE [...] + + + + | BLOOD | [id number] | | [facility] | | | PRODUCT [...] LABORATORY | [address] | [place] [address] | | | SERVICES, | [address] [...] + + + + | PRODUCT | [id number] | | [facility] | | | UNIT [...] + + + + | EXPIRATION | [id number] | | [facility] | | | DATE [...] + + + + | BLOOD | [id number] | | [facility] | | | PRODUCT [...] LABORATORY | [address] | [place] [address] | | | [address] | [...] 7.6 | 5 - 10 Minutes | [facility] - | | | CITRATED | | | MARYOLANDA | | | | | | ZELALEM HERRERA | | | | | | OF CARE | | | | | | TESTS | | + + + + + + | K - | 1.3 | 1 - 3 Minutes | [facility] - | | | CITRATED | [...] BRAMBILA | [address] | [place], [place] | | | ZELALEM HERRERA OF CARE | [address] | [address] | | | TESTS | | | [...] LABORATORY | [address] | [place] [address] | | | SERVICES, SPECIAL | PARK [...] HOSPITAL LABORATORY | [address] | [place] [address] | | | NINO LEONARD | JEAN [...] | | Service: IP Intra Op [id number] INTRAOPERATIVE NEURO | | | MONITORING IOM: [...] | | Clinical Neurophysiology Department Suggested CPT: 01204 - IOM | | | Remote x 3 hr(s) 26154 - Short Latency EP's Upper AND Lower | | | extremities 79421 - Central Motor EP's Upper AND Lower extremities | | | 70089 - Neuromuscular Junction Test Suggested Diagnosis: D43.4 [...] original | | | | | | [id number]) with cells | | | | | [...] medical | | | | | | record#[id number]. | | | | | | A: [...] + + | [facility] | [address] | [place] [address] | | | PATHOLOGY | [address] [...] | + + + + + | [facility] | [address] | [place] [address] | | | SPECIAL HORACIO | JEAN [...] TILLMAN | [address] | [place] [address] | | | SERVICES, CORE | PARK [...] + + | Performing | Address | City/State/[facility] | Phone Number | | [...] | | + +---------+ + + | [facility] RADIOLOGY | | | | | [...] [facility] | [address] | [place] [address] | | | SERVICES, | [address] [...] | + + + + + | [facility] | [address] | [place] [address] | | | HORACIO, | JEAN CARLOS [...] LABORATORY | [address] | [place] [address] | | | NINO LEONARD | JEAN [...] HOSPITAL LABORATORY | [address] | [place] [address] | | | SERVICES, CORE | JEAN [...] LABORATORY | [address] | [place] [address] | | | SERVICES, CORE | PARK [...] HOSPITAL LABORATORY | [address] | [place] [address] | | | NINO LEONARD | JEAN [...] + + | [facility] | [address] | [place] [address] | | | SERVICES, NINO | JEAN [...] HOSPITAL LABORATORY | [address] | [place] [address] | | | SERVICES, NINO | PARK [...] | + + + + + | [facility] - | [address] | [place] [address] | | | [place] | | | | + + + [...] | + + + + + | [facility] | [address] | [place] [address] | | | SERVICES, CORE | JEAN [...] | [facility] | | | GRAVITY | [place] performed by | | LABORATORY | | [...] [facility] | [address] | [place] [address] | | | SERVICES, CORE | PARK [...] LABORATORY | [address] | [place] [address] | | | SERVICES, CORE | PARK [...] HOSPITAL LABORATORY | [address] | [place] [address] | | | SERVICES, CORE | JEAN [...] At | + + + | [id number] This patient has registered at the | [facility] | | [facility] Emergency Department For more | MEDICAL | | information visit: | [employer]CH[employer]OLOGIES | | [email or web address] | | | [email or web address] ED Care Guidelines There are currently no ED Care Guidelines | | | in [place]YNN for this patient. Please check your facility's medical | | | records system. Recent Emergency Department Visit Summary Admit | | | Date Facility City State Type Major Type Diagnoses or Chief Complaint | | | Jan 11, 2017 [facility] [place] Emergency | | | Emergency 10,800. transfer Jan 11, 2017 [facility] | | | [facility] [place] Emergency Emergency Recent | | | Inpatient Visit Summary No recorded inpatient visits. E.D. Visit | | | Count (12 mo.) Facility Visits [facility] | | | [place] 2 [facility] 1 [place] [address] | | | [facility] 1 Total 6 Note: Visits indicate total | | | known visits. Care Providers Provider PRC Type Phone Fax | | | Service Dates [facility] Primary Care | | | Current [...] for | | | additional information. 2017 [employer] - | | | [place], [place] - [email or web address] | | + + + + + | Procedure Note | + + | Service Account, Rtf Results Inbound - 01/11/2017 8:40 AM PDT Formatting of this | | note might be different from the original.LYNN?NOTIFICATION?01/11/2017 08:38?ANAID | | QIANA Parsons? patient has registered at the [facility] Emergency Department For more information visit: | | [email or web address] ED Care | | GuidelinesThere are currently no ED Care Guidelines in LYNN for this patient. Please | | check your facility's medical records system.Recent Emergency Department Visit | | SummaryAdmit Date Facility City State Type Major Type Diagnoses or Chief Complaint Jan | | 2016 [facility] [place] Emergency Emergency 10,800. | | transfer Jan 11, [address] [facility] [place] Emergency Emergency Recent | | Inpatient Visit SummaryNo recorded inpatient visits. E.D. Visit Count (12 mo.)Facility | | Visits [facility] 2 [facility] 1 [facility] | | [place] 2 [facility] 1 Total 6 Note: Visits indicate total known | | visits. Care ProvidersProvider PRC Type Phone Fax Service Dates [facility] | | [facility] Primary Care Current [facility] Current | | [place] Primary Care Oct 16, 2016 - | [...] additional information. ? 2017 [employer] | | [place], [place] - [email or web address] | |[facility] 2 | |[facility] 1 | |[facility] 2 | |[facility] 1 | |Total 6 | |Note: Visits indicate total known visits. | | | |Care Providers | |Provider PRC Type Phone Fax Service Dates | |[facility] Primary Care Current | |[facility] Primary Care Current | |TIAN [facility] Primary [facility] Oct 16, 2016 - Current | | | |The above information is provided for the sole purpose of patient treatment. Use of this in formation beyond the terms of Data Sharing Memorandum of Understanding and License Agreement is prohibited. In | |certain cases not all visits may be represented. Consult the aforementioned facilities for additional information. | |? 2017 [employer] - [place], [place] - [email or web address] | + + + + + + + | Performing | Address | City/State/Zipcode | Phone Number | | Organization | | | | + + + + + | [facility] | [address] | [place], [place] | [phone] | | TE[employer] | [address] | [address] | | + + + + + [...]
--- OUTSIDE RECORDS SUMMARY | ~2019-11-28 | XMS | Encounter Summary ---
Demographics + + + | Address | [address] | | | [place] [address] | + + + | Home Phone | | + + + | Preferred Language | Unknown | + + + | Marital Status | Single | + + + | Hinduism Affiliation | NON | + + + [...] Providers + +------+ + | Care Body Rolling Machine Tender Name | Role | Phone | + +------+ + | Clare Franks MD | PCP | | + +------+ + Encounter Details +--------+ + + + + | Date | Type | Department | Care Team | Description | +--------+ + + + + | 04/10/ | ED Progress | Epic at [facility] | Anthony Olea NP | ED Progress Note | | 2016 | | [address] | [facility] | | | | Note-Transc | [place], [place] | Hospital [address] | | | | ribed | [address] | Ave [place], [place] | | | | | | [address] | | | | | | | [...] | | | | | | [place], [place] | | | | | | [address] | | | | | | [phone] | | | | | | | | +--------+ + + + + | 12/10/ | Office | Neurological Surgery | April Beck MD | | | 2019 | Visit | | [address] | | | | | | [address] | | | | | | [place], [place] | | | | | | [address] | | | | | | [phone] | | | | | | | | +--------+ + + + + documented as of this encounter Visit Diagnoses Not on filedocumented in this encounter"
--- OUTSIDE RECORDS SUMMARY | ~2019-11-28 | XMS | Encounter Summary ---
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 | | | | [phone] | | (dos: )) | +--------+ + [...] | | | | | | [place] [facility] [place] | | | | | | [address] | | | | | | [phone] | | | | | | | | +--------+ + + + + | 12/10/ | Office | Neurological Surgery | April Beck MD | | | 2019 | Visit | | [address] | | | | | | [address] | | | | | | [facility] [place] | | | | | | [address] | | | | | | [phone] | | | | | | | | +--------+ + + + + documented as of this encounter Visit Diagnoses Not on filedocumented in this encounter"
--- OUTSIDE RECORDS SUMMARY | ~2019-11-28 | XMS | Encounter Summary ---
Demographics + + + | Address | [address] | | | [place] [address] | + + + | Home Phone [...] Team Providers + +------+ + | Care Fiber Designer Name | Role | Phone | [...] Tadeo | | | | | | [facility] | [place], [place] | | | | | | Rd | [address] | | | | | | [place], [place] | Phone: | | | | | | [address] | [phone] | | | | | | | Fax: | | | | | | | [phone] | +--------+--------+ + + + + Encounter [...] | | | Shwetha Mailcode: | [place], [place] | | | | | [facility] | [address] | | | | | and [place], | [phone] | | | | | Building | | | | | | [place], [place] | | | | | | [address] | | | | | | [phone] | | | +--------+---------+ + + + [...] 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 She takes gabapentin at 300mg daily for [...] 1 year for surveillance [facility] [address] [address] documented in this encounter Plan [...] | | | | | | [place], [place] | | | | | | [address] | | | | | | [phone] | | | | | | | | +--------+ + + + + | 12/10/ | Office | Neurological Surgery | April Beck MD | | | 2019 | Visit | | [address] | | | | | | [address] | | | | | | [place], [place] | | | | | | [address] | | | | | | [phone] | | | | | | | [...] [facility] | [address] | [place], [place] | | | LAB | | [address] | | + + + + + | [facility] | [address] | [place], [place] | | | LAB | | [address] | | + + + + + CULTURE, URINE (01/11/2017 6:45 AM PDT) + + + + + + | Component | Value | Ref Range | Performed | Pathologist | | | | | At | Signature | + + + + + + | URINE | Patient:FABIOGERADAVID, | | [facility] | | | CULTURE | QIANA MODI | | [facility] | | | | [...] | | | | | | | [id number] SITE: | | | | | | [...] at: | | | | | | [facility] | | | | + + + + + + + + | Specimen | + + | | + + + + + + + | Performing | Address | City/State/Zipcode | Phone Number | | Organization | | | | + + + + + | [facility] | [address] | [place], [place] | | | LAB | | [address] | | + + + + + | [facility] | [address] | [place], [place] | | | LAB | | [address] | | + + + + + [...] [facility] | [address] | [place], [place] | | | LAB | | [address] | | + + + + + | [facility] | [address] | [place], [place] | | | LAB | | [address] | | + + + + + [...] [facility] | [address] | [place], [place] | | | LAB | | [address] | | + + + + + | [facility] | [address] | [place], [place] | | | LAB | | [address] | | + + + + + [...] [place] | | | LAB | | [address] | | + + + + + | [facility] | [address] | [place], [place] | | | LAB | | [address] | | + + + + + [...] mL/min/1.73m2 | [facility] | | | [facility] | | | | | + +---------+ [...] [facility] | [address] | [place], [place] | | | LAB | | [address] | | + + + + + | [facility] | [address] | [place], [place] | | | LAB | | [address] | | + + + + + [...] [place] | | | LAB | | [address] | | + + + + + | [facility] | [address] | [place], [place] | | | LAB | | [address] | | + + + + + [...] [facility] | [address] | [place], [place] | | | LAB | | [address] | | + + + + + | [facility] | [address] | [place], [place] | | | LAB | | [address] | | + + + + + CULTURE, BLOOD BACTI & YEAST (01/11/2017 5:20 AM PDT) + + + + + + | Component | Value | Ref Range | Performed | Pathologist | | | | | At | Signature | + + + + + + | CULTURE | Patient:AANID, | | [facility] | | | RESULT [...] | | | | | | | [id number] SITE: | | | | | | [...] at: | | | | | | [facility] | | | | + + + + + + + + | Specimen | + + | | + + + + + + + | Performing | Address | City/State/Zipcode | Phone Number | | Organization | | | | + + + + + | [facility] | [address] | [place], [place] | | | LAB | | [address] | | + + + + + | [facility] | [address] | [place], [place] | | | LAB | | [address] | | + + + + + [...] | RESULT | QIANA MODI | | [facility] | | | | | [...] | | | | | | | [id number] SITE: | | | | | | [...] [facility] | [address] | [place], [place] | | | LAB | | [address] | | + + + + + | [facility] | [address] | [place], [place] | | | LAB | | [address] | | + + + + + CULTURE, STREP SCREEN (01/11/2017 5:05 AM PDT) + + + + + + | Component | Value | Ref Range | Performed | Pathologist | | | | | At | Signature | + + + + + + | CULTURE | Patient:EITELADRIENNE, | | [facility] | | | RESULT | QIANA LY | | [facility] | | | | | [...] | | | | | | | [id number] SITE: | | | | | | [...] at: | | | | | | [facility] | | | | + + + + + + + + | Specimen | + + | | + + + + + + + | Performing | Address | City/State/Zipcode | Phone Number | | Organization | | | | + + + + + | [facility] | [address] | [place], [place] | | | LAB | | [address] | | + + + + + | [facility] | [address] | [place], [place] | | | LAB | | [address] | | + + + + + [...] [place] | | | LAB | | [address] | | + + + + + | [facility] | [address] | [place], [place] | | | LAB | | [address] | | + + + + + [...] [facility] | [address] | [place], [place] | | | LAB | | [address] | | + + + + + | [facility] | [address] | [place], [place] | | | LAB | | [address] | | + + + + + documented in this encounter Visit Diagnoses + + | Diagnosis | + + | 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
--- OUTSIDE RECORDS SUMMARY | ~2019-11-28 | XMS | Encounter Summary ---
Demographics + + + | Address | [address] | | | [place] [address] | + + + | Home Phone [...] Team Providers + +------+ + | Care Respiratory Therapist Name | Role | Phone | + +------+ + | Damir Sy MD | PCP | | + +------+ + Encounter Details +--------+ + + + + | Date | Type | Department | Care Team | Description | +--------+ + + + + | 11/26/ | Procedure | Radiology/Imaging | | | | 2018 | Pass | Lab at [facility] [address] | | | | | | [address] [place] Mailcode: | | | | | | [facility] | | | | | | Health and Healing, | | | | | | Building [facility] | | | | | | Floor [place], [place] | | | | | | [address] | | | | | | [phone] | | | +--------+ + + + [...] [place] | | | | | | [address] | | | | | | [phone] | | | | | | | | +--------+ + + + + | 12/10/ | Office | Neurological Surgery | April Beck MD | | | 2020 | Visit | | [address] | | | | | | [address] | | | | | | [place], [place] | | | | | | [address] | | | | | | [phone] | | | | | | | | +--------+ + + + + documented as of this encounter Visit Diagnoses Not on filedocumented in this encounter"
--- OUTSIDE RECORDS SUMMARY | ~2019-11-28 | XMS | Encounter Summary ---
Demographics + + + | Address | [address] | | | [place] [address] | + + + | Home Phone [...] Team Providers + +------+ + | Care Negative Checker Name | Role | Phone | [...] THORACIC | | 2019 | | [facility] | [address] | LAMINECTOMY AND | | | | Franko [facility] Main | [place], [place] | resection of | | | | Hospital Admitting | [address] | intradural spinal | | | | Desk Located on the | [phone] | tumor | | | | 9th floor | | | | | | [place], [place] | | | | | | [address] | | | +--------+---------+ + + + [...] Rajinder Luis MD PCP: PATRIC Flores Service: [facility] Neurosurgery Diagnoses Principal Final [...] on the 1 2th floor at the [facility] on the [facility] located at [address] [place] [address]. Please call [phone] if you have any questions or concerns [...] (10/05/18 1244) Discharge Patient To: Interhospital Transfer [facility] Does patient have a planned readmission: No Discharge Summary Completed?: Yes. 10/08/2018 Discharging Provider: RAEGAN DOSS PA-C Date Completed: 10/08/2018 Time Completed: 10:36 AM Discharging Attending: Rajinder Luis MD [facility] [address] [place] [address] documented in this encounter Medications at Time [...] accepted, hopeful for today. RAEGAN DOSS PA-C [facility] [address] [place] [address] dams, PHILIPPE Mena - 10/07/2018 8:33 AM [...] in bed, on ppx lovenox. Dispo: To [facility] once accepted. RAEGAN DOSS PA-C [facility] [address] [place] [address] Daniel Arechiga MD - 10/06/2018 11:06 AM [...] WORRELL Routine Cultures PROCEDURE: Strep Screen Culture [[id number]: 11/05/2017 16:4 4 PDT P1] SOURCE: Throat STARTED: 11/05/2017 20:3 9 PDT FREE TEXT SOURCE: BODY SITE: FINAL REPORTS Final Report [] Verified Date/Time: 11/07/2017 11:07 PDT No beta Strep isolated. Order Comments O1: Strep Screen Culture (CULTURE THROAT STREP SCREEN - [facility] - Ordering-Phys: CLARE GIOVANNA GRAVES) Location: [facility] Performing Locations P1: This test was performed at: [facility] Lab Lab Results Component Value Date APTT [...] Please contact the neurosurgery blackburn on-call pager [phone] with questions. Daniel Barahona M.D. Neurosurgery PGY-1 [...] control, planning for IPR Elif Mcclain PA-C [facility] [address] [place] [place] [address] ong, DAMON Kim - 10/04/2018 8:39 AM [...] noted deficits below Delt Tri Bi WE Manager Ecommerce HF KE APF ADF Left 5 5 [...] SPINE THOR / LUMB WWO CONTRAST Order: [id number] Performed: 10/01/2018 17:52 Status: Final result Visible [...] Secondary to clinical course Julio Wahl PA-C [facility] [address] [place] [address] Carrol Dave MD,P hD - 10/03/2018 10:00 [...] CARROL REYES MD,PhD Resident Neurological Surgery Pgr. [id number] dams, Raegan Nieves PA-C - 10/03/2018 8:21 [...] Dispo: To [place] today. RAEGAN DOSS PA-C [facility] [address] [place] [address] Rajinder Antony MD - 10/02/2018 7:51 PM [...] surgery? No Chris Cano MD Neurosurgery PGY2 [address] Julio Rendon PA-C - 10/02/2018 8:22 AM [...] noted deficits below Delt Tri Bi WE Manager E[employer] HF KE APF ADF Left 5 5 [...] SPINE THOR / LUMB WWO CONTRAST Order: [id number] Performed: 10/01/2018 17:52 Status: Final result Visible [...] clinical course, pending surgery Julio Wahl PA-C [facility] [address] [place] [address] documented in this enc ounter Plan of [...] | | | | | | [place], [place] | | | | | | [address] | | | | | | [phone] | | | | | | | | +--------+ + + + + | 12/10/ | Office | Neurological Surgery | April Beck MD | | | 2019 | Visit | | [address] | | | | | | [address] | | | | | | [place], [place] | | | | | | [address] | | | | | | [phone] | | | | | | | [...] Attending | | Surgeon: Rajinder Luis MD Quill Machine Tender(s): Joby Thibodeaux MD. | | Preoperative Diagnosis: [...] a prone position on a [place] table. All pressure points | | were [...] 10/03/2018 | | 19:49:32DT: 10/03/2018 20:24:12Job #: [id number] | + + X-RAY SPINE THORACIC 1 [...] [facility] | [address] | [place], [place] | | | ZELALEM HERRERA OF NURIA | [address] | [address] | | | TESTS | | | [...] prior | | | | | | [id number], low grade | | | | | [...] resection | | | | | | ([id number]), with | | | | | | [...] | | | | | | y, [facility] & | | | | | | [facility] | | | | [...] number | | | | | | [id number].A. Spine, | | | | | | [...] | | | | | determined by [facility] | | | | [...] + + + | [facility] | [address] | [place] [address] | | | PATHOLOGY | [address] | | | + + + + + INTRAOPERATIVE NEURO MONITORING (10/03/2018) + + + | Narrative | Performed At | + + + | Patient Name: Qiana Worrell Date of : 1990 | | | Date of Test: 10/03/2018 Place of | | | Service: IP Intra Op [id number] INTRAOPERATIVE NEURO | | | MONITORING IOM: [...] Norma Jordan MD, MA, [employer] Supervisor Laboratory Animal Facility of Neurology | | | Suggested CPT: G0453 - IOM Continuous divided attention to single | | | patient x 10 @ 15 min(s), [place] [address] - Short Latency EP's | | | Upper AND Lower extremities 88947 - Central Motor EP's Upper AND | [...] LABORATORY | [address] | [place] [address] | | | SERVICES, | [address] [...] | + + + + + | [facility] | [address] | [place] [address] | | | SERVICES, | [address] [...] | + + + + + | [facility] | [address] | [place] [address] | | | SERVICES, | [address] [...] | + + + + + | [facility] LABORATORY | [address] | [place] [address] | | | SERVICES, NINO | JEAN [...] | + + + + + | [facility]ORY | [address] | [place] [address] | | | SERVICES, CORE | JEAN [...] | | | LABORATORY | | | CYMRAES | | | SERVICES, | | | [...] | + + + + + | Mine | [address] | [place] [address] | | | SERVICES, CORE | [address] [...] LABORATORY | [address] | [place] [address] | | | SERVICES, CORE | [address] | | | + + + + + ED INFORMATION EXCHANGE (10/01/2018 12:03 PM PDT) + + | Specimen | + + | | + + + + + | Narrative | Performed At | + + + | [id number] [id number] Criteria Met Has | [facility] | | Guidelines PDMP Security and Safety No recent Security Events | MEDICAL | | currently on file ED Care Guidelines from [facility] and | [employer] | | [facility] Last Updated: 02/08/17 11:58 AM [facility] | | | Emergency DepartmentSuggested Care RecommendationsAuthor: Cecily Najera, | | | [facility]ENTERWAuthor Dbhfhz Update: | | | 02/08/2017Medical:- Thoracic intramedullary [...] provider/clinic: Dr. Clare Chowdary, | | | [facility], - Neurosurgery: [facility], | | | Rajinder Luis MD and PHILIPPE Mckeon - [phone]-Insurance care | | | coordinator: Estelita [phone]-Housing: living in [facility] [place] with | | | mother Judit and [...] E.D. Visit Count (12 mo.) Facility Visits [facility] and | | | [facility] 1 [facility] 1 Total 2 Note: | | | Visits indicate total known visits. Recent Emergency Department | | | Visit Summary Date Facility City State Type Diagnoses or Chief | | | Complaint Oct 01, 2018 [facility] [place] | | | [place] Emergency 10,800. MRI Jul 06, 2018 [facility]. | | | 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 Inpatient Rehab Spinal | | [...] | | unspecified Jul 06, 2018 [facility] | | | [place] Neuro Surgery 10,151. 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, soft tissue, and | | | skin Care Providers Provider PRC Type Phone Fax Service | | | Dates MARBIN CHAPIN, GRADES 9 12 TUTOR-BC Nurse Practitioner: Family Current | | | MADHAVI MONTANEZ LCSW Cotton Farmworker: Clinical [phone] | | | [phone] Current CORNELIO VILLASENOR ND Tail Puller ([phone]) | | | [phone] Current [employer] Portal This patient | | | has registered at the [facility] and [facility] | | | Emergency Department For more information visit: | | | [email or web address] | | | [email or web address] [facility] PLEASE NOTE: 1. Any care recommendations [...] | or completeness of information provided. 2019 [employer] | | | [employer]. - [email or web address] | | + + + + + | Procedure Note | + + | Service Account, Rtf Results Inbound - 10/01/2018 12:04 PM PDT Formatting of this | | note might be different from the original.COLLECTIVE?NOTIFICATION?10/01/2018 | | 12:01?QIANA [place]? [facility] Guidelines PDMPSecurity and | | SafetyNo recent Security Events currently on fileED Care Guidelines from [facility] | | and Science [facility] Updated: 02/08/17 11:58 AM [facility] Emergency DepartmentSuggested | | Care RecommendationsAuthor: NEELIMA ChavezNorth Central Bronx Hospitalstephanie Csyuuu | | Update: 02/08/2017Medical:- Thoracic intramedullary spinal [...] provider/clinic: Dr. Sparks | | Karma Chowdary, [facility], - Neurosurgery: Rajinder QURESHI | | MD Toby and PHILIPPE Mckeon - [phone]-Insurance health care assistant: Estelita | | [phone]-Housing: living in [facility] with mother Judit and 2 y/o daughter [...] 0 E.D. Visit Count (12 mo.)Facility Visits [facility] | and [facility] 1 [facility] 1 Total 2 Note: Visits indicate total | | known visits. Recent Emergency Department Visit SummaryDate Facility [facility] State Type | | Diagnoses or Chief Complaint Oct 01, 2018 [facility] [place] | | Emergency 10,800. MRI Jul 06, 2018 [facility] 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 Inpatient Rehab | | Spinal [...] of bladder, unspecified Jul 06, 2018 [facility] | | [place] Neuro Surgery 10,151. Thoracic Spine Tumor 18,400. Neoplasm of | | unspecified behavior of bone, soft tissue, and skin Care ProvidersProvider PRC Type | | Phone Fax Service Dates MARBIN CHAPIN, GRADES 9 12 TUTOR-BC Nurse Practitioner: Family Current | | MADHAVI MONTANEZ LCSW Cotton Farmworker: Clinical Current [facility], | | CORNELIO Bates ND Tail Puller Current M[employer] PortalThis | | patient has registered at the [facility] Emergency Department | | For more information visit: | | [email or web address] andnbsp | | PLEASE NOTE: 1. Any [...] completeness of information | | provided.? 2019 [employer]. - [email or web address] | |Oct 01, 2018 [facility] [place] Emergency | | 10,800. MRI | | | |Jul 06, [address] [facility] [place] [place] Emergency | | 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in | | Anesthesia of skin | | Allergy status to sulfonamides status | | Other vermin exterminator (current) drug therapy | | Brown-Sequard syndrome | | | | | | | |Recent Inpatient Visit Summary | |Date Facility [facility] State Type Diagnoses or Chief Complaint | |Jul 12, 2018 [facility] [place] Inpatient Rehab | | Spinal Tumor [...] | | | |Jul 06, 2018 [facility] [place] Neuro Surgery | | 10,151. Thoracic Spine Tumor | | 18,400. 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in | | | | | | | |Care Providers | |Provider PRC Type Phone Fax Service Dates | |MARBIN CHAPIN, PATRIC-MAREK Nurse Practitioner: Family Current | |MADHAVI MONTANEZ LCSW Cotton Farmworker: Clinical Current | |CORNELIO VILLASENOR , CESARIO Tail Puller Current | | | |[employer] Portal | |This patient has registered at the [facility] Emergency Departmen t | |For more information visit: [email or web address] | |andnbsp PLEASE NOTE: | | 1. [...] information provided. | | | |? 2019 [employer]. - [email or web address] | + + + + + + + | Performing | Address | City/[facility]/Zipcode | Phone Number | | Organization | | | | + + + + + | [facility] | [address] | [place], [place] | [phone] | | TECHNOLOGIES | [address] | [address] | | + + + + + [...]
--- OUTSIDE RECORDS SUMMARY | ~2019-11-28 | XMS | Encounter Summary ---
Demographics + + + | Address | [address] | | | [place] [address] | + + + | Home Phone [...] Team Providers + +------+ + | Care Child Care Centre Manager Name | Role | Phone | + +------+ + | Damir Sy MD | PCP | | + +------+ + Encounter Details +--------+ + + + + | Date | Type | Department | Care Team | Description | +--------+ + + + + | 12/06/ | Telephone | Neurosurgery at | Rajinder Luis MD | | | 2016 | | [facility] | [address] | | | | | and Healing [address] | [place], [place] | | | | | [address] Mailcode: | [address] | | | | | [facility] | [phone] | | | | | Health and Healing, | | | | | | [facility] | | | | | | Floor [place], [place] | | | | | | [address] | | | | | | [phone] | | | +--------+ + + + [...] | | | | | | [place], [place] | | | | | | [address] | | | | | | [phone] | | | | | | | | +--------+ + + + + | 12/10/ | Office | Neurological Surgery | April Beck MD | | | 2019 | Visit | | [address] | | | | | | [address] | | | | | | [place] | | | | | | [address] | | | | | | [phone] | | | | | | | | +--------+ + + + + documented as of this encounter Visit Diagnoses Not on filedocumented in this encounter"
--- OUTSIDE RECORDS SUMMARY | ~2019-11-28 | XMS | Encounter Summary ---
Demographics + + + | Address | [address] | | | [place] [address] | + + + | Home Phone [...] Team Providers + +------+ + | Care Party Coordinator Name | Role | Phone | [...] | spinal cord | [place], [place] | [place], [place] | | | | | Procedures | [address] | [address] | | | | | REQUEST TO | Phone: | Phone: | | | | | SURGERY | [phone] | [phone] | | | | | COURTROOM REPORTER | Fax: | Fax: | | | | | [place] [facility] | [phone] | [phone] | | | | | SPINAL | | | | | | | TUMOR,XDURAL | | | | | | | ,[place]OR [place] | | | | | | | [facility] | | | | | | | SPIN | | | | | | | MARCELINO,INDUR,XM | | | | | | | ED,[place]OR [place] | | | | | | | [facility] | | | | | | | SPIN | | | | | | | MARCELINO,INDUR,IN | | | | | | | MED,[place] | | | | | | | [...] | spinal cord | [address] [facility] | [place], [place] | | | | | tumor with | Hospital | [address] | | | | | right leg | [place], [place] | Phone: | | | | | weakness. | [address] | [phone] | | | | | | Phone: | Fax: | | | | | | [phone] | [phone] | +--------+--------+ + + + + Encounter Details +--------+---------+ + + + | Date | Type | Department | Care Team | Description | +--------+---------+ + + + | 01/16/ | Office | Neurosurgery at | Rajinder Luis MD | Spinal cord tumor | | 2016 | Visit | [facility] | [address] | (Primary Dx); | | | | and Healing [address] | [place], [place] | Thoracic spine tumor | | | | [address] Mailcode: | [address] | | | | | [facility] | [phone] | | | | | Health and Healing, | | | | | | [facility] | | | | | | Floor [place], [place] | | | | | | [address] | | | | | | [phone] | | | +--------+---------+ + + + [...] relocated to a living arrangement closer to [facility]. She now lives in [place]. She is accompanied by her almost 1-year-old [...] Rajinder Luis MD I spent 20 minutes [id number]-[id number] with the patient. I spent more than [...] | | 2019 | | | [place] [address] | | | | | | [place] [facility] [place] | | | | | | [address] | | | | | | [phone] | | | | | | | | +--------+ + + + + | 12/10/ | Office | Neurological Surgery | April Beck MD | | | 2020 | Visit | | [address] | | | | | | [address] | | | | | | [place], [place] | | | | | | [address] | | | | | | [phone] | | | | | | | [...]
--- OUTSIDE RECORDS SUMMARY | ~2019-11-28 | XMS | Encounter Summary ---
Demographics + + + | Address | [address] | | | [place] [address] | + + + | Home Phone [...] Team Providers + +------+ + | Care Boat Worker Name | Role | Phone | + +------+ + | No Pcp Per Patient | PCP | Unavailable | + +------+ + Encounter Details +--------+ + + + + | Date | Type | Department | Care Team | Description | +--------+ + + + + | 06/03/ | Telephone | Neurosurgery at | Raegan Doss, | | | 2019 | | [facility] | PA-C [address] | | | | | and Healing [address] | [place] [facility], [place] | | | | | Vivek Tadeo Mailcode: | [address] | | | | | [facility] | [phone] | | | | | Health and Healing, | | | | | | [facility] | | | | | | [place], [place] | | | | | | [address] | | | | | | [phone] | | | +--------+ + + + [...] | | | | | | [place], [place] | | | | | | [address] | | | | | | [phone] | | | | | | | | +--------+ + + + + | 12/10/ | Office | Neurological Surgery | April Beck MD | | 2019 | Visit | | [address] | | | | | | [address] | | | | | | [place], [place] | | | | | | [address] | | | | | | [phone] | | | | | | | | +--------+ + + + + documented as of this encounter Visit Diagnoses Not on filedocumented in this encounter"
[~2019-11-28 21:49] MED LIST changes: +ONDANSETRON ODT8 MG SL
--- OUTSIDE RECORDS SUMMARY | 2019-11-28 21:56 | XMS ---
PreManage Notification: QIANA WORRELL Security Timber Watchman Events No recent Security Events currently on file CRITERIA MET - [facility] [place] CARE PROVIDERS PRINCESS GRAVES [facility] Current MARIBELL PHONE: [phone] MARBIN ALEXANDRA Nurse Practitioner: Family Current PHONE: Unknown CHRISTIANO MARTINS Current PHONE: [phone] Kya Shay [facility] Survey Workers Supervisor Current PHONE: [phone] Care Guidelines exist for the following facilities: [facility] ( 01/13/2019 ) Care History Medical/Surgical 06/03/2019 [facility] - [facility] CALLED PATIENT- DISCUSSED PCP OPTIONS IN THE AREA. - PATIENT STATES SHE WILL BE IN CONTACT WITH [facility] AND OR DR MAY OFFICE TO SEE ABOUT GETTING RECORDS SENT TO SCHEDULE WITH A PROVIDER IN THE AREA. Kimberly. VISIT COUNT (12 MO.) 3 [facility]. TOTAL 3 NOTE: Visits indicate total known visits. ED/UCC VISIT TRACKING (12 MO.) 11/28/2019 21:49 [facility] TYPE: Emergency COMPLAINT: - VOMITING,HEAD PAIN,SOME VISION LOSS 06/26/2019 08:08 [facility] TYPE: Emergency COMPLAINT: - WEAKNESS 06/02/2019 09:50 [facility] TYPE: Emergency COMPLAINT: - VOMITING, HEADACHE DIAGNOSES: - Nausea with vomiting, unspecified - Other half-way (current) drug therapy - Allergy status to sulfonamides status INPATIENT VISIT TRACKING (12 MO.) 06/27/2019 21:[address] [facility] TYPE: Neuro Surgery DIAGNOSES: 72394. 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 06/26/2019 20:13 [facility] TYPE: Medical Surgical COMPLAINT: - UTI DIAGNOSES: - Chronic pain syndrome - Allergy status to sulfonamides status - Acute vaginitis - Other half-way (current) drug therapy - Muscle weakness (generalized) - Unspecified place in hospital as the place of occurrence of t - Allergy status to narcotic agent status - Unspecified place in hospital as the place of occurrence of t - Flushing - Allergy status to sulfonamides status - Malignant neoplasm of spinal cord - Muscle weakness (generalized) - Other specified bacterial agents as the cause of diseases cla - Other exterminator helper termite (current) drug therapy - Other specified bacterial agents as the cause of diseases cla - Allergy status to narcotic agent status - Chronic pain syndrome - Malignant neoplasm of spinal cord - Unspecified mood [affective] disorder - Flushing - Enterococcus as the cause of diseases classified elsewhere - Acute vaginitis - Unspecified mood [affective] disorder - Urinary tract infection, site not specified - Adverse effect of other antiprotozoal drugs, initial encounte - Adverse effect of other antiprotozoal drugs, initial encounte - Enterococcus as the cause of diseases classified elsewhere [email or web address]
== END 2019-11-29 00:25 | disposition home or self-care (01) ==
LOC: ED 21:49
DX: G43.909 Migraine, unspecified, not intractable, without status migrainosus (principal); Z88.5 Allergy status to narcotic agent; Z88.2 Allergy status to sulfonamides; Z79.899 Other long term (current) drug therapy
CPT/HCPCS: 96361; 96374; 96375; 99283-25; J1200; J1885; J2765; J7030

== ENCOUNTER 2022-03-25 14:39 | Emergency (ER) | payer MEDICARE, OTHER ==
[~2022-03-25] VITALS: Ht 160 cm; Wt 91.2 kg
== END 2022-03-25 16:01 | disposition home or self-care (01) ==
LOC: ED 14:39
DX: S92.511A Displaced fracture of proximal phalanx of right lesser toe(s), initial encounter for closed fracture (principal); W22.8XXA Striking against or struck by other objects, initial encounter; G43.909 Migraine, unspecified, not intractable, without status migrainosus; Z88.5 Allergy status to narcotic agent; Z88.2 Allergy status to sulfonamides; Z79.899 Other long term (current) drug therapy
CPT/HCPCS: 73630; 99283-25

== ENCOUNTER 2022-06-02 21:57 | Emergency (ER) | payer MEDICARE, OTHER ==
[~2022-06-02] VITALS: Ht 160 cm; Wt 91.2 kg
--- OUTSIDE RECORDS SUMMARY | 2022-06-02 22:00 | XMS ---
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 Events No recent Security Events currently on file CRITERIA MET - PDMP CARE PROVIDERS PRINCESS GRAVES [facility] Current MARIBELL PHONE: Unknown MARBIN ALEXANDRA Nurse Practitioner: Family Current PHONE: Unknown HERMANN DA SILVA [facility] Current PHONE: [phone] CHRISTIANO MARTINS Current PHONE: Unknown Kya Shay Advanced Practice Shop Technician Current PHONE: [phone] Care Guidelines exist for the following facilities: [facility] and [facility] ( 01/13/2019 ) Care History Medical/Surgical 06/03/2019 [facility] - W CALLED PATIENT- DISCUSSED PCP OPTIONS IN THE AREA. - PATIENT STATES SHE WILL BE IN CONTACT WITH [facility] AND OR DR MAY OFFICE TO SEE ABOUT GETTING RECORDS SENT TO SCHEDULE WITH A PROVIDER IN THE AREA. Adriana VISIT COUNT (12 MO.) 3 [facility] TOTAL 3 NOTE: Visits indicate total known visits. 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
[2022-06-03] MEDS ORDERED: ROPINIROLE HCL0.5 MG PO (05:11)
== END 2022-06-03 05:54 | disposition home or self-care (01) ==
LOC: ED 21:57
DX: R25.1 Tremor, unspecified (principal); G43.909 Migraine, unspecified, not intractable, without status migrainosus; Z88.5 Allergy status to narcotic agent; Z88.2 Allergy status to sulfonamides; Z79.899 Other long term (current) drug therapy
CPT/HCPCS: 36415; 72100; 72128; 80053; 83735; 85025; 96374; 96375; 96376; 99284-25; J3360; J7121

== ENCOUNTER 2024-08-14 09:41 | Emergency (ER) | payer OTHER, MEDICARE ==
[~2024-08-14] VITALS: Ht 160 cm; Wt 98.4 kg
[~2024-08-14 09:41] MED LIST changes: +QUETIAPINE FUMA25 MG PO; +ROPINIROLE HCL0.5 MG PO; +XANAX0.5 MG PO
[2024-08-14] MEDS ORDERED: HYDROCODON-ACE1 EA10 PO (10:44)
[2024-08-14 10:55] VITALS: BP 125/81
== END 2024-08-14 10:55 | disposition home or self-care (01) ==
LOC: ED 09:41
DX: S99.912A Unspecified injury of left ankle, initial encounter (principal); G43.909 Migraine, unspecified, not intractable, without status migrainosus; Z88.5 Allergy status to narcotic agent; Z88.2 Allergy status to sulfonamides; Z79.899 Other long term (current) drug therapy; W01.0XXA Fall on same level from slipping, tripping and stumbling without subsequent striking against object, initial encounter
CPT/HCPCS: 73610; 99283